=== PATIENT | female | born 1965 | race Caucasian/White ===

== ENCOUNTER 2018-03-09 16:04 | Emergency (ER) | payer MEDICARE, SELFPAY ==
[2018-03-09 16:05] VITALS: BP 135/78; PULSE 74; RESP 16; TEMP 37.2; O2SAT 98; BMI 29.2
--- NOTE | 2018-03-09 16:20 | ED.DCSUM_ITS ---
- ER Visit Summary Date of Service: 03/09/18 Chief Complaint: Opiate withdrawal History of Present Illness: The patient is a 52 F with symptoms of opiate withdrawal. Patient states that she is addicted to opiates. She states that she will buy Percocet and OxyContin of the street. She tries to use it almost daily. She states that she does snort it. She does not inject. She has remote history of heroin use but has not used in some time. Her last use of opiates was over 3 days ago. She states she has begun to have withdrawal symptoms. She is very upfront that she does not want inpatient detox. She states I just want some help with my symptoms. She is not suicidal or homicidal. She states that she has been having nausea, diarrhea, diaphoresis, and just the symptoms of generalized malaise. She denies any fevers. She denies cough. She denies any other medication use. Physical Examination: Vital signs reviewed General: Well-nourished, well-developed Head: Normocephalic, atraumatic Eyes: Pupils equal and reactive, extraocular muscles intact Neck, supple, no lymphadenopathy Heart: Regular rate and rhythm Respiratory: No distress, clear bilaterally Abdomen: Soft, nontender, nondistended, no peritoneal signs Back: Nontender Extremities: Nontender, no edema, no cords Skin: Normal color no rash Neuro: Alert and oriented, no focal or lateralizing deficits Test Results: [] Emergency Department Course and Treatment: The patient denies any other coingestion. She states that she just uses opiates. She is scheduled to do a detox intake for Suboxone in 12 days. She states she just the symptom control. The patient was given oral clonidine, Bentyl, and Phenergan here. I will prescribe these medications for the next week. She was counseled on concerning symptoms and reasons to return. Patient was offered new visions evaluation, but she declined. She will be discharged home. Treatment Plan: [] Disposition: Discharge Impression: 1. Opiate abuse with withdrawal This note was generated with [employer] dictation software. It may contain incorrect words, spelling, and punctuation that were not noted in review of the chart prior to signing ED Disposition - Plan for ED Patient: Chief Complaint: Subst Abuse Instructions: ED Withdrawal Narcotic Prescriptions: proMETHazine tablet [Phenergan] 25 mg PO Q6H PRN PRN #10 tab PRN Reason: Nausea Dicyclomine HCl [Bentyl] 20 mg PO TIDAC #20 cap Clonidine HCl 0.1 mg PO BID #14 tab Referrals: Earnest Rodriguez MD [Primary Care Provider] -
[2018-03-09] MEDS: proMETHazine 25 MG Tablet 12.5 MG PO (16:29)
[2018-03-09] MEDS: cloNIDine HCl 0.1 MG Tablet PO (16:29)
[2018-03-09] MEDS: Dicyclomine 10 MG Capsule 20 MG PO (16:29)
== END 2018-03-09 16:43 | disposition home or self-care (01) ==
PROVIDERS: Emergency Provider Emergency Medicine; Family Provider Family Medicine; PCP Family Medicine
DX: F11.23 Opioid dependence with withdrawal (principal); F41.9 Anxiety disorder, unspecified; F32.9 Major depressive disorder, single episode, unspecified; Z72.0 Tobacco use
CPT/HCPCS: 99282

== ENCOUNTER 2018-10-15 18:40 | Emergency (ER) | payer MEDICARE, SELFPAY ==
[2018-10-15 18:41] VITALS: BP 125/69; PULSE 51; RESP 18; TEMP 36.7; O2SAT 98; BMI 27.3
[2018-10-15] MEDS: Ondansetron 4 MG/2 ML Vial IV (19:02)
[2018-10-15] MEDS: 0.9% Normal Saline 1,000 ML 1000 ML IV (19:02)
[2018-10-15 19:13] LABS: Absolute Lymphocyte Count 1.02 X10^3/ul (0.83-4.51); Absolute Neutrophil Count 7.2 X10^3/uL (2.0-7.7); Basophil# 0.02 X10^3/uL; Basophil% 0.2 % (0-1); Eosinophil# 0.02 X10^3/uL; Eosinophils% 0.2 % (0-5); Hematocrit 50.7 % (37-47); Hemoglobin 17.2 g/dl (12.0-15.0); Lymphocyte # 1.02 X10^3/ul (4.0); Mean Corp Hgb Conc 33.9 g/gl (32-36); Mean Corpuscular Hgb 32.1 pg (27.0-32.0); Mean Corpuscular Volume 94.8 fL (81-99); Monocyte# 0.24 X10^3/uL; Monocyte% 2.8 % (0-10); Neutrophil # 7.18 X10^3/uL (2.7-7.7); Neutrophil % 84.7 % (47-70); Platelet Count 289 K/mm3 (150-450); RBC Distribution Width CV 13.5 % (11.6-14.6); RBC Distribution Width SD 46.5 fl (35.1-43.9); Red Blood Count 5.35 M/mm3 (4.2-5.4); White Blood Count 8.5 K/mm3 (4.4-11.0)
[2018-10-15 19:14] LABS: POSITIVE COUNT NO; POSITIVE DIFFERENTIAL NO; POSITIVE MORPHOLOGY NO
[2018-10-15 19:25] LABS: AST(SGOT) 17 U/L (15-37); Alanine Aminotransfer ALT/SGPT 23 U/L (13-56); Albumin, Serum 4.2 g/dL (3.2-5.0); Alkaline Phosphatase 71 U/L (45-117); Anion Gap 9 (5-15); BUN 14 mg/dL (7-18); BUN/Creat Ratio 23.6 RATIO (10-20); Calcium,Total 8.8 mg/dL (8.5-10.1); Chloride 104 mmol/L (98-107); Creatinine, Serum 0.59 mg/dL (0.55-1.02); EST Glomerular Filtration Rate 113 mL/min (>60); Est Glom Filt Rate - Afr Amer 136 mL/min (>60); Estimated Creatinine Clearance 95.22 ml/min; Globulin 3.2 g/dL (2.2-4.2); Glucose 109 mg/dL (74-106); Lipase 68 U/L (73-393); Potassium 3.9 mmol/L (3.5-5.1); Protein, Total 7.4 g/dL (6.4-8.2); Sodium Level 139 mmol/L (136-145)
[2018-10-15] MEDS: 0.9% Normal Saline 1,000 ML 150 ML IV (19:38)
[2018-10-15 20:20] VITALS: BP 129/80; PULSE 59; RESP 15; O2SAT 97
--- NOTE | 2018-10-15 20:52 | ED.DCSUM_ITS ---
- ER Visit Summary Date of Service: 10/15/18 Chief Complaint: Nausea and vomiting History of Present Illness: The patient is a 53 F who woke this morning with nausea and vomiting. She describes diffuse abdominal cramping, worse in the lower abdomen. She denies diarrhea. She denies fever or chills. She is with multiple family members yesterday for the holiday, but states no one else has similar illness. She ate the same meal as everyone else and no one else has been sick. Physical Examination: Vital signs are unremarkable. Patient's lying in bed in no acute distress. Heart is regular rate and rhythm. Lungs sounds clear. Abdomen is soft with mild diffuse tenderness. No guarding or rebound. Hypoactive bowel sounds noted. Test Results: CBC was normal white count, but left shift is noted with 84% neutrophils. Hemoglobin is concentrated at 17.2. Chemistry studies normal. LFTs and lipase normal. Emergency Department Course and Treatment: Patient is given IV fluids and Zofran. Repeat evaluation she is tolerating ice chips well. She does feel improved. She is given a prescription for Zofran at home. Treatment Plan: [] Disposition: Discharge Impression: Vomiting, improved This note was generated with [employer] dictation software. It may contain incorrect words, spelling, and punctuation that were not noted in review of the chart p rior to signing ED Disposition - Plan for ED Patient: Disposition: Home or Assisted Living Chief Complaint: Abd Pain Instructions: ED Nausea Vomiting Prescriptions: Ondansetron [Zofran Odt] 4 mg PO Q8H PRN PRN #10 tablet PRN Reason: Nausea Referrals: Earnest Rodriguez MD [Primary Care Provider] - 3-5 Days if not improving
[2018-10-15] MEDS: Ondansetron ODT 4 MG Tablet PO (21:00)
[2018-10-15 21:01] VITALS: BP 116/70; PULSE 62; RESP 15; O2SAT 95
== END 2018-10-15 21:30 | disposition home or self-care (01) ==
PROVIDERS: Emergency Provider Emergency Medicine; Family Provider Family Medicine; PCP Family Medicine
DX: R11.2 Nausea with vomiting, unspecified (principal); R10.9 Unspecified abdominal pain; Z86.19 Personal history of other infectious and parasitic diseases; Z98.51 Tubal ligation status
CPT/HCPCS: 80048; 80076; 83690; 85025; 96361; 96374; 99285; J7030; A4216; J2405

== ENCOUNTER 2018-12-13 13:56 | Emergency (ER) | payer MEDICARE, SELFPAY ==
[2018-12-13 13:57] VITALS: BP 119/69; PULSE 81; RESP 16; TEMP 36.4; O2SAT 97; BMI 61.1
--- NOTE | 2018-12-13 14:01 | RAD_ITS ---
STUDY: X-RAY - LEFT WRIST REASON FOR EXAM: Female, 53 years old. Posterior puncture wound secondary to cat bite. TECHNIQUE: 3 view(s) of the wrist were obtained. COMPARISON: None. FINDINGS: Normal visualized distal radius and ulna. Normal radiocarpal articulation. Normal distal radioulnar articulation. Normal carpal bones. Normal carpal articulations. Normal carpometacarpal articulation of the thumb. Normal second through fifth carpometacarpal articulations. Normal visualized metacarpal bones. Dorsal soft tissue swelling. RAD/Wrist min 3 Views IMPRESSION: Dorsal soft tissue swelling. No radiopaque foreign body is seen. Electronically Signed: Macario Tejeda MD at 14:52 EST Tel [phone], Service support ,
--- NOTE | 2018-12-13 14:03 | ED.DCSUM_ITS ---
- ER Visit Summary Date of Service: 12/13/18 Chief Complaint: Cat bite History of Present Illness: The patient is a 53 F who presents with a cat bite. She was trying to break up a fight when 1 of her domesticated cats bit her on the left forearm. She had multiple puncture wounds on the left forearm and [place] nd. She is up-to-date on immunizations. The cat has had not had immunizations but has not showed any signs of rabies. Physical Examination: Vital signs reviewed. Patient has tenderness over the left wrist with there are multiple puncture wounds. These wounds are on the dorsal part of the left wrist and there is 1 puncture wound at the base of the hand. It does not involve the fingers. She has limited range of motion secondary to the pain. Test Results: Left wrist x-ray reveals no fractures. No foreign bodies Emergency Department Course and Treatment: The patient's wound was cleansed. X- ray shows no broken bones or foreign bodies. Patient will be treated with antibiotics. She will take NSAIDs for pain. She will ice the area and will follow up with her PCP Treatment Plan: [] Disposition: Discharge Impression: Cat bite, left arm This note was generated with [employer] dictation software. It may contain incorrect words, spelling, and punctuation that were not noted in review of the chart prior to signing ED Disposition - Plan for ED Patient: Chief Complaint: Bite Referrals: Earnest Rodriguez MD [Primary Care Provider] -
[2018-12-13] MEDS: Naproxen 500 MG Tablet PO (14:30)
--- NOTE | 2018-12-13 14:36 | ED.DEP ---
ED Disposition - Plan for ED Patient: Disposition: Home or Assisted Living Chief Complaint: Bite Instructions: ED Bite Cat Prescriptions: Amox/Clavulanate Tablet [Augmentin Tablet] 875 mg PO Q12H #14 tab Referrals: Earnest Rodriguez MD [Primary Care Provider] -
[2018-12-13 14:47] VITALS: RESP 15
--- OUTSIDE RECORDS SUMMARY | 2019-02-15 03:01 | XMS RPT_ITS ---
:1965 Author Organization OHIP Care Team Providers Name Role Phone Earnest Rodriguez Primary Care Unavailable David Montalvo Attending Unavailable Earnest Rodriguez Primary Care Unavailable Faiza Workman Attending Unavailable Earnest Rodriguez Primary Care Unavailable Wade Chase Attending Unavailable ANN DOMINIQUE ([facility]) Attending Unavailable ANN DOMINIQUE ([employer]YING [employer]) Referring Unavailable Reny Gonzalez MSN,MONOMER PURIFICATION OPERATOR Attending Unavailable Jeffry Morales Primary Care Unavailable Francia Hebert Attending Unavailable Jeffry Morales Primary Care Unavailable Francia Hebert Attending Unavailable No Family Physician given Primary Care Unavailable Francia Hebert Attending Unavailable MISCELLANEOUS DOCTOR Primary Care Unavailable Francia Hebert Attending Unavailable Earnest Rodriguez Primary Care Unavailable Francia Hebert Attending Unavailable Jeffry Morales Primary Care Unavailable Francia Hebert Attending Unavailable Earnest Rodriguez Primary Care Unavailable Francia Hebert Attending Unavailable Francia Hebert Attending Unavailable No Family Physician given Primary Care Unavailable Garth Gibbs Attending Unavailable Francia Hebert Attending Unavailable Garth Gibbs Attending Unavailable No Family Physician given Primary Care Unavailable Francia Hebert Attending Unavailable No Family Physician given Primary Care Unavailable PROBLEMS PROBLEMS DATE TYPE CONDITION / CODE ATTENDING STATUS SOURCE 09/17/2017 Active Personal history NA Active [facility] infectious and Repository parasitic diseases / Z86.19(ICD-10) 04/22/2018 Admitting Unknown / Reny Gonzalez Active [facility] Medical diagnosis UNK(Unknown) MSN,MONOMER PURIFICATION OPERATOR [facility] Repository PROCEDURES PROCEDURES No Procedure Records FoundRESULTS RESULTS DISCHARGE INSTRUCTION Observed: 12/13/2018 Status: F Source: [place] 2:37 PM [facility] HOSPITAL REPOSITORY [facility] Medical Records Department [address] [place] [address] Discharge Instruction 12/13/18 1436 MR#: [id number] Acct: [id number] Name: KAMI WATTS Rep #: [id number] : 1965 53 From: Wade Chase MD PCP: Earnest Rodriguez MD Status: PRE ER ED Disposition - Plan for ED Patient: Disposition: Home or Assisted Living Chief Complaint: Bite Instructions: ED Bite Cat Prescriptions: Amox/Clavulanate Tablet [Augmentin Tablet] 875 mg PO Q12H #14 tab Referrals: Earnest Rodriguez MD [Primary Care Provider] - What to do if you have Problems For any increased pain, shortness of breath, bleeding, nausea or vomiting, chest pain, or any unexpected problems, contact your Primary Care Provider. Call [facility] ([phone]) or report to the closest Emergency Room. Call 911 if necessary. 12/13/18 1437 <Electronically signed by Wade Chase MD> Date Wade Chase MD Cosigner Signature (If Indicated): Date CC: Earnest Rodriguez MD EMERGENCY DEPARTMENT Observed: 12/13/2018 Status: F Source: [place] SUMMARY 2:36 PM [facility] HOSPITAL REPOSITORY [facility] Medical Records Department [address] [place] [address] Emergency Department Summary 12/13/18 1402 MR#: [id number] Acct: [id number] Name: KAMI WATTS Rep #: [id number] : 1965 53 From: Wade Chase MD PCP: Earnest Rodriguez MD Status: PRE ER - ER Visit Summary Date of Service: 12/13/18 Chief Complaint: Cat bite History of Present Illness: The patient is a 53 F who presents with a cat bite. She was trying to break up a fight when 1 of her domesticated cats bit her on the left forearm. She had multiple puncture wounds on the left forearm and hand. She is up-to-date on immunizations. The cat has had not had immunizations but has not showed any signs of rabies. Physical Examination: Vital signs reviewed. Patient has tenderness over the left wrist with there are multiple puncture wounds. These wounds are on the dorsal part of the left wrist and there is 1 puncture wound at the base of the hand. It does not involve the fingers. She has limited range of motion secondary to the pain. Test Results: Left wrist x-ray reveals no fractures. No foreign bodies Emergency Department Course and Treatment: The patient's wound was cleansed. X-ray shows no broken bones or foreign bodies. Patient will be treated with antibiotics. She will take NSAIDs for pain. She will ice the area and will follow up with her PCP Treatment Plan: [] Disposition: Discharge Impression: Cat bite, left arm This note was generated with [employer] dictation software. It may contain incorrect words, spelling, and punctuation that were not noted in review of the chart prior to signing ED Disposition - Plan for ED Patient: Chief Complaint: Bite Referrals: Earnest Rodriguez MD [Primary Care Provider] - What to do if you have Problems For any increased pain, shortness of breath, bleeding, nausea or vomiting, chest pain, or any unexpected problems, contact your Primary Care Provider. Call [facility] ([phone]) or report to the closest Emergency Room. Call 911 if necessary. 12/13/18 1436 <Electronically signed by Wade Chase MD> Date Wade Chase MD Cosigner Signature (If Indicated): Date CC: Earnest Rodriguez MD WRIST MIN 3 VIEWS Observed: 12/13/2018 Status: F Source: [place] 2:01 PM [facility] Imaging Services [address] [place] [address] Wrist min 3 Views MR#: [id number] Acct: [id number] Name: KAMI WATTS Rep #: [id number] : 1965 F 53 From: Macario Tejeda MD PCP: Earnest Rodriguez MD Status: REG ER Study: Wrist min 3 Views Date of Exam: 12/13/18 Exam# [id number] Ordering Dr: Wade Chase MD STUDY: X-RAY - LEFT WRIST REASON FOR EXAM: Female, 53 years old. Posterior puncture wound secondary to cat bite. TECHNIQUE: 3 view(s) of the wrist were obtained. COMPARISON: None. FINDINGS: Normal visualized distal radius and ulna. Normal radiocarpal articulation. Normal distal radioulnar articulation. Normal carpal bones. Normal carpal articulations. Normal carpometacarpal articulation of the thumb. Normal second through fifth carpometacarpal articulations. Normal visualized metacarpal bones. Dorsal soft tissue swelling. RAD/Wrist min 3 Views IMPRESSION: Dorsal soft tissue swelling. No radiopaque foreign body is seen. Electronically Signed: Macario Tejeda MD at 14:52 EST Tel [phone], Service support , CC: Earnest Rodriguez MD; Wade Chase MD Associate Director Of Sales: Signed TOXASSURE COMPR Collected: 12/06/2018 Status: F Source: [facility] 5:29 PM [facility] REPOSITORY TYPE CODE TESTS RESULT OUT OF RANGE REFERENCE UNITS LAB L600.81825 () Normal TOXASSURE COMPR FINAL Result Comment: TOXASSURE COMP DRUG ANALYSIS,UR 6-Acetylmorphine,ToxAssure Add CREATININE,URINE Test Result Flag Units Drug Present Buprenorphine 10 ng/mg creat Norbuprenorphine 117 ng/mg creat Source of buprenorphine is a scheduled prescription medication. Norbuprenorphine is an expected metabolite of buprenorphine. Acetaminophen PRESENT Test Result Flag Units Ref Range Creatinine 157 mg/dL >=20 Declared Medications: Medication list was not provided. For clinical consultation, please call . Performed By: #### L600.26656, L600.33181 #### [facility] [address] [place] [address] # [phone] 6-ACETYLMORPHIN Collected: 12/06/2018 Status: F Source: [facility] 5:29 PM [facility] REPOSITORY TYPE CODE TESTS RESULT OUT OF RANGE REFERENCE UNITS LAB L600.60193 () 6-DAYNA Normal TOXASSURE NEGATIVE Performed By: #### L600.90181, L600.86691 #### [facility] [address] [place] [address] # [phone] TOXASSURE COMPR Collected: 10/22/2018 Status: F Source: [facility] 12:00 AM [facility] REPOSITORY Order Comment: [place]: M TYPE CODE TESTS RESULT OUT OF RANGE REFERENCE UNITS LAB L600.66622 () Normal TOXASSURE COMPR FINAL Result Comment: TOXASSURE COMP DRUG ANALYSIS,UR 6-Acetylmorphine,ToxAssure Add CREATININE,URINE Test Result Flag Units Drug Present Buprenorphine 248 ng/mg creat Norbuprenorphine 1235 ng/mg creat Source of buprenorphine is a scheduled prescription medication. Norbuprenorphine is an expected metabolite of buprenorphine. Citalopram PRESENT Desmethylcitalopram PRESENT Desmethylcitalopram is an expected metabolite of citalopram or the enantiomeric form, escitalopram. Test Result Flag Units Ref Range Creatinine 40 mg/dL >=20 Declared Medications: Medication list was not provided. For clinical consultation, please call . Performed By: #### L600.89250, L600.54657 #### [facility] [address] [place] [address] 6-ACETYLMORPHIN Collected: 10/22/2018 Status: F Source: [facility] 12:00 AM [facility] REPOSITORY Order Comment: [place]: M TYPE CODE TESTS RESULT OUT OF RANGE REFERENCE UNITS LAB L600.08824 () 6-DAYNA Normal TOXASSURE NEGATIVE Performed By: #### L600.46073, L600.46262 #### [facility] [address] [place] [id number] EMERGENCY DEPARTMENT Observed: 10/16/2018 Status: F Source: [place] SUMMARY 12:58 AM [facility] [place] [facility] Medical Records Department [address] [place] [address] Emergency Department Summary 10/15/182051 MR#: [id number] Acct: [id number] Name: KAMI WATTS Rep #: [id number] : 1965 53 From: Faiza Workman MD PCP: Earnest Rodriguez MD Status: DEP ER - ER Visit Summary Date of Service: 10/15/18 Chief Complaint: Nausea and vomiting History of Present Illness: The patient is a 53 F who woke this morning with nausea and vomiting. She describes diffuse abdominal cramping, worse in the lower abdomen. She denies diarrhea. She denies fever or chills. She is with multiple family members yesterday for the holiday, but states no one else has similar illness. She ate the same meal as everyone else and no one else has been sick. Physical Examination: Vital signs are unremarkable. Patient's lying in bed in no acute distress. Heart is regular rate and rhythm. Lungs sounds clear. Abdomen is soft with mild diffuse tenderness. No guarding or rebound. Hypoactive bowel sounds noted. Test Results: CBC was normal white count, but left shift is noted with 84% neutrophils. Hemoglobin is concentrated at 17.2. Chemistry studies normal. LFTs and lipase normal. Emergency Department Course and Treatment: Patient is given IV fluids and Zofran. Repeat evaluation she is tolerating ice chips well. She does feel improved. She is given a prescription for Zofran at home. Treatment Plan: [] Disposition: Discharge Impression: Vomiting, improved This note was generated with [employer] dictation software. It may contain incorrect words, spelling, and punctuation that were not noted in review of the chart prior to signing ED Disposition - Plan for ED Patient: Disposition: Home or Assisted Living Chief Complaint: Abd Pain Instructions: ED Nausea Vomiting Prescriptions: Ondansetron [Zofran Odt] 4 mg PO Q8H PRN PRN #10 tablet PRN Reason: Nausea Referrals: Earnest Rodriguez MD [Primary Care Provider] - 3-5 Days if not improving What to do if you have Problems For any increased pain, shortness of breath, bleeding, nausea or vomiting, chest pain, or any unexpected problems, contact your Primary Care Provider. Call [facility] ([phone]) or report to the closest Emergency Room. Call 911 if necessary. 10/16/18 0058 <Electronically signed by Faiza Workman MD> Date Faiza Workman MD Cosigner Signature (If Indicated): Date CC: Earnest Rodriguez MD DISCHARGE INSTRUCTION Observed: 10/15/2018 Status: F Source: [place] 8:53 PM [facility] HOSPITAL REPOSITORY [facility] Medical Records Department [address] [place] [address] Discharge Instruction 10/15/182051 MR#: [id number] Acct: [id number] Name: KAMI WATTS Rep #: [id number] : 1965 53 From: Faiza Workman MD PCP: Earnest Rodriguez MD Status: REG ER ED Disposition - Plan for ED Patient: Disposition: Home or Assisted Living Chief Complaint: Abd Pain Instructions: ED Nausea Vomiting Prescriptions: Ondansetron [Zofran Odt] 4 mg PO Q8H PRN PRN #10 tablet PRN Reason: Nausea Referrals: Earnest Rodriguez MD [Primary Care Provider] - 3-5 Days if not improving What to do if you have Problems For any increased pain, shortness of breath, bleeding, nausea or vomiting, chest pain, or any unexpected problems, contact your Primary Care Provider. Call [facility] ([phone]) or report to the closest Emergency Room. Call 911 if necessary. 10/15/182052 <Electronically signed by Faiza Workman MD> Date Faiza Workman MD Cosigner Signature (If Indicated): Date CC: Earnest Rodriguez MD CBC W/DIFF, AUTOMATED Collected: 10/15/2018 Status: F Source: [place] 6:54 PM [facility] [place] TYPE CODE TESTS RESULT OUT OF RANGE REFERENCE UNITS LAB L100.1000 4.4-11.0 K/mm3 Normal WBC 8.5 LAB L100.1200 4.2-5.4 M/mm3 Normal RBC 5.35 LAB L100.1300 12.0-15.0 g/dl High HGB 17.2 LAB L100.1400 37-47 % High HCT 50.7 LAB L100.1500 81-99 fL Normal MCV 94.8 LAB L100.1600 27.0-32.0 pg High MCH 32.1 LAB L100.1700 32-36 g/gl Normal MCHC 33.9 LAB L100.1810 11.6-14.6 % Normal RDW CV 13.5 LAB L100.1820 35.1-43.9 fl High RDW SD 46.5 LAB L100.1900 150-450 K/mm3 Normal PLT 289 LAB L100.2000 6.2-12.0 fl Normal MPV 10.0 LAB L100.2100 47-70 % High NEUT% 84.7 LAB L100.2200 19-41 % Low LY% 12.0 LAB L100.2300 0-10 % Normal MONO% 2.8 LAB L100.2400 0-5 % Normal EO% 0.2 LAB L100.2500 0-1 % Normal BASO% 0.2 LAB L100.2550 0.0-0.9 % Normal IM GRAN % 0.100 Result Comment: IG% - Immature Granulocytes (promyelocytes, myelocytes and metamyelocytes) > 1% indicates that a LEFT SHIFT is Present. LAB L100.2620 2.0-7.7 X10 3/uL Normal Absolute Neut 7.2 LAB L100.2720 0.83-4.51 X10 3/ul Normal Absolute Lymph 1.02 Performed By: #### L100.0100 #### [facility] [address] [place], [place], [address] BASIC METABOLIC Collected: 10/15/2018 Status: F Source: [place] PROFILE ([facility]) 6:54 PM [facility] [place] TYPE CODE TESTS RESULT OUT OF RANGE REFERENCE UNITS LAB L501.0100 74-106 mg/dL High GLU 109 Result Comment: Fasting Glucose result from 100 to 125 mg/dL suggests IMPAIRED HOMEOSTASIS per A.D.A. criteria. Please note revised GLUCOSE reference range effective 2017. LAB L501.1000 7-18 mg/dL Normal BUN 14 LAB L501.1100 0.55-1.02 mg/dL Normal CREAT,SERUM 0.59 Result Comment: The validity of the calculated GFR AND GFRAA in patients over 70 years has not been determined. Clinical correlation is essential. LAB L501.1110 >60 mL/min Normal EST GFR 113 Result Comment: Non- GFR Calc LAB L501.1115 >60 mL/min Normal EST GFR - AA 136 Result Comment: GFR Calc LAB L501.1255 ml/min Normal Estimated CRCL 95.22 LAB L501.1300 10-20 RATIO High BUN/CRE 23.6 LAB L501.2200 8.5-10 mg/dL Normal .1 CA 8.8 LAB L501.5300 136-14 mmol/L Normal 5 NA 139 LAB L501.5600 3.5-5. mmol/L Normal 1 K 3.9 LAB L501.5900 98-107 mmol/L Normal CL 104 LAB L501.6100 21.0-3 mmol/L Normal 2.0 CO2 26.0 LAB L501.6200 5-15 Normal GAP 9 Performed By: #### L500.2500, L500.3400, L501.2450 #### [facility] [address] [place], [place], [address] LIVER PROFILE Collected: 10/15/2018 Status: F Source: [place] 6:54 PM [facility] [place] TYPE CODE TESTS RESULT OUT OF RANGE REFERENCE UNITS LAB L501.1500 6.4-8.2 g/dL Normal T PROT 7.4 LAB L501.1800 3.2-5.0 g/dL Normal ALB 4.2 LAB L501.1950 2.2-4.2 g/dL Normal GLOB 3.2 LAB L501.4100 15-37 U/L Normal AST 17 LAB L501.4305 45-117 U/L Normal ALK P 71 LAB L501.4405 13-56 U/L Normal ALT 23 LAB L501.4600 0.20-1.00 mg/dL Normal T BILI 0.80 LAB L501.4700 0.00-0.30 mg/dL Normal D BILI 0.20 Performed By: #### L500.2500, L500.3400, L501.2450 #### [facility] [address] [place], [address] LIPASE Collected: 10/15/2018 Status: F Source: [place] 6:54 PM [facility] [place] TYPE CODE TESTS RESULT OUT OF REFERENCE UNITS RANGE LAB L501.2450 73-393 U/L Low LIPASE 68 Performed By: #### L500.2500, L500.3400, L501.2450 #### [facility] [address] [place], [address] COMP METABOLIC PANEL Collected: 06/17/2018 Status: F Source: [place] 8:46 AM [facility] REPOSITORY TYPE CODE TESTS RESULT OUT OF REFERENCE UNITS RANGE LAB TP 6.3-8.0 g/dL Protein, Total 6.6 LAB ALB 3.9-4.9 g/dL Albumin 4.4 LAB CA 8.5-10.2 mg/dL Calcium, Total 9.1 LAB TBIL 0.2-1.3 mg/dL Bilirubin, Total 0.3 LAB ALKP 32-117 U/L Alkaline Phosphatase 70 LAB AST 13-35 U/L AST 22 LAB GLU 74-99 mg/dL Glucose 82 Result Comment: The [place] Diabetes Association (ADA) provides guidance for cutoff values for fasting glucose and random glucose. The ADA defines fasting as no caloric intake for at least 8 hours. Fas ting plasma glucose results between 100 to 125 mg/dL indicate increased risk for diabetes (prediabetes). Fasting plasma glucose results greater than or equal to 126 mg/dL meet the criteria for diagnosis of diabetes. In the absence of unequivocal hyperglycemia, results should be confirmed by repeat testing. In a patient with classic symptoms of hyperglycemia or hyperglycemic crisis, random plasma glucose results greater than or equal to 200 mg/dL meet the criteria for diagnosis of diabetes. Reference: Standards of Medical Care in Diabetes 2016, [place] Diabetes Association. Diabetes Care. 2016.39(Suppl 1). LAB BUN 7-21 mg/dL BUN 13 LAB CRET 0.58-0.96 mg/dL Creatinine 0.68 LAB NA 136-144 mmol/L Sodium 139 LAB K 3.7-5.1 mmol/L Potassium 4.3 LAB CL 97-105 mmol/L Chloride 101 LAB CO2 22-30 mmol/L CO2 26 LAB AGAP 9-18 mmol/L Anion Gap 12 LAB ALT 7-38 U/L ALT 13 LAB GFRAA eGFR- Amer. >60 LAB GFRNAA . eGFR-All Other Races >60 Result Comment: eGFR (Estimated GFR) Units of measure: mL/min/1.73 meters squared eGFR is derived from the reexpressed MDRD Study equation using the following parameters: serum creatinine, age, gender and race. The creatinine assay has been calibrated to be traceable to IDMS. An eGFR <60 mL/min/1.73m2 for >3 months is consistent with chronic kidney disease. Refer to KDOQI guidelines for clinical interpretation. In patients with unstable renal function, e.g. those with acute kidney injury, the eGFR may not accurately reflect actual GFR. Performed By: #### CMP, HCQPCR #### [facility] [address] [place], [place] [address] HEPATITIS C RNA Collected: 06/17/2018 Status: F Source: [place] 8:46 AM [facility] REPOSITORY TYPE CODE TESTS RESULT OUT OF REFERENCE UNITS RANGE LAB HCQPCR IU/mL Hepatitis C RNA HCV RNA not detected by PCR. Result Comment: Reference Range: Negative for HCV RNA The Linear Range of this assay is 15 IU/mL to 100,000,000 IU/mL. Performed By: #### CMP, HCQPCR #### [facility] [address] [place], [place] [address] PROGRESS Observed: 06/17/2018 Status: COMPLETED Source: [place] 8:10 AM [facility] REPOSITORY HNO ID: [id number] Author: Ann (Arik) Trip Service: (none) Author Type: Nurse Practitioner Type: Progress Notes Filed: 06/17/2018 9:49 AM Note Text: This is a 52 year old female who presents today with: Patient presents with: Recheck: positive hep C results HISTORY OF PRESENT ILLNESS: Kami Watts is a 52 year old female. Patient presents with: Recheck: positive hep C results Pt presents today to discuss test results. She has a hx of hep C. She was treated with Epclusa. Thought she was cured. Recently, had labwork for the suboxone Program, and the hepatitis was positive. Asymptomatic. Needs refill of citalopram. Working good. No problems. No suicidal/homicidal. GENERAL: No weight loss, malaise or fevers/chills HEENT: Negative for frequent or significant headaches, No changes in hearing or vision. NECK: Negative for lumps, goiter, pain and significant neck swelling RESPIRATORY: Negative for cough, hemoptysis, wheezing, dyspnea or shortness of breath CARDIOVASCULAR: Negative for chest pain, leg swelling, orthopnea, or palpitations GI: No nausea, vomiting, or diarrhea/constipation. No hematochezia/melena. No heartburn or reflux symptoms. : No history of dysuria, frequency or incontinence MUSCULOSKELETAL: Negative for joint pain or swelling. SKIN: Negative for lesions, rash, and itching ENDOCRINE: Negative for cold or heat intolerance, polyuria, polydipsia and goiter NEURO: No history of headaches, syncope, paralysis, seizures or tremors PAST MEDICAL HISTORY: PAST MEDICAL HISTORY Diagnosis Date - Abdominal pain, unspecified site - Abnormal glandular Papanicolaou smear of cervix Abn. Pap smear (cervix) - Alcohol addiction (HCC) In treatment 04/06/11 - Diabetes mellitus without mention of complication Diabetes mellitus - Diarrhea - Drug addiction (HCC) In treatment 04/06/11 - prescription pain medication use - NO IV drug use. - Esophageal reflux Gastroesophageal reflux - History of hepatitis C treated. Not detected 08/2017 - PMH - PAST MEDICAL HISTORY OF colitis - PMH - PAST MEDICAL HISTORY OF enlarged duct pancreas and GB - Thyrotoxicosis without mention of goiter or other cause, without mention of thyrotoxic crisis or storm Hyperthyroidism PAST SURGICAL HISTORY Procedure Laterality Date - *STRESS TEST PC 11/03/2016 normal - COLONOSCOP W/ OR W/O BRSH SPEC 04/18/15 Colonoscopy, repeat 5 yrs - COLONOSCOPY W/BX 08/20/06 - COLPOSCOPY (VAGINOSCOPY) 1999 Colposcopy - DANDC, DIAG AND/OR THERAPEUTIC 10/2016 Dilation AND curettage - DILATED RETINAL EYE EXAM W/INT/DOC/REV 12/27/2014 - ENDOMETRIAL BIOPSY 03/03/07 - LIGATE FALLOPIAN TUBE 2002 Tubal ligation - PAST SURGICAL HISTORY OF 1997 BENIGN TUMOR REMOVED RIGHT HAND - PAST SURGICAL HISTORY OF 2012 cataract with lens implant, bilat - REPAIR UMBILICAL MADI,<5Y/O,REDUC 2002 Hernia repair, umbilical <5yr ALLERGIES Patient has no known allergies. MEDICATIONS Current Outpatient Prescriptions: Buprenorphine-nalOXone (SUBOXONE) 8-2 mg film Dissolve 2 Film under the tongue once daily. citalopram (CELEXA) 20 mg tablet Take 1 tablet by mouth once daily. No current facility-administered medications for this visit. FAMILY HISTORY Problem Relation Age of Onset - Diabetes Mother colon cancer - Coronary Artery Disease Mother - Hypertension Mother - Hearing Loss Father PA/ colon cancer - Stroke Father - Diabetes Father - Hypertension Father - Aneurysm Father - Coronary Artery Disease Maternal Grandmother - Hypertension Maternal Grandmother - Ischemic Heart Disease Maternal Grandfather - Hypertension Paternal Grandmother - Coronary Artery Disease Paternal Grandmother - Coronary Artery Disease Paternal Grandfather - Cancer Sister CERVICAL/colon cancer - Cancer Paternal Aunt DOESN'T KNOW TYPE - Heart Brother PA - Hypertension Daughter - Colon Cancer Brother Social History Marital status: Spouse name: Years of education: GED Number of children: 6 Social History Main Topics Smoking status: Current Every Day Smoker Packs/day: 1.00 Years: 40.00 Types: Cigarettes Smokeless tobacco: Never Used Comment: half a pack a day Alcohol use: No Drug use: No Comment: sober since june 01 2014-meth Sexual activity: Yes Partners with: Male control/protection: Surgical Comment: TUBAL OCCLUSION EXAM: BP 112/70 (BP Site: Left Arm, BP Position: Sitting, BP Cuff Size: Regular Adult) Pulse 68 Resp 12 Wt 75.8 kg (167 lb) LMP 01/15/2017 (Within Days) BMI 28.67 kg/m? PHYSICAL EXAM: General Appearance: Well appearing, alert, in no acute distress, well-hydrated, well nourished.. Skin: Skin color, texture, turgor normal, no suspicious rashes or lesions. Head: Normocephalic, no masses, lesions, tenderness or abnormalities. Eyes: Anicteric sclera. Extraocular movements are intact. . Neck: Supple, no adenopathy; thyroid symmetric, normal size, no bruits. Lungs: Lungs clear to auscultation. No wheezing, rhonchi, rales. Heart: RRR without murmur, gallop, or rubs. No ectopy. Abdomen: Abdomen soft, non-tender. Bowel sounds normal. No masses, organomegaly. Extremities: No deformities, edema, skin discoloration, clubbing or cyanosis. Good capillary refill. Neurologic: Gait normal. Sensation grossly intact. ASSESSMENT/PLAN: 1. History of hepatitis C - ICD9: V12.09, ICD10: Z86.19 (primary diagnosis) Suspect that they did just a hep c antibody, which likely will remain positive after treatment. Reassured patient. Will get viral load to ensure not detectable. - COMP METABOLIC PANEL - HCV QUANT RNA BY PCR 2. Screening breast examination - ICD9: V76.10, ICD10: Z12.31 - Set up for mammogram, yearly mammogram recommended - Follow up for annual exam in one year. - DAYNA SCREENING 3. Adjustment disorder with depressed mood - ICD9: 309.0, ICD10: F43.21 Controlled. Refill: - CITALOPRAM 20 MG TABLET Discussed treatment plan and patient voices understanding. Patient's questions answered appropriately. Medications and potential side effects were discussed and patient voices understanding. Return to the office as scheduled or as needed for worsening/no improvement. AVINASH GottliebOV Observed: 06/17/2018 Status: COMPLETED Source: [place] 8:00 AM [facility] REPOSITORY Office Visit (FAMPWS) STEFANIECLARAKAMI ([id number]) 1965 F NFR Date Time Provider Department 06/17/18 8:00 AM ANN DOMINIQUE (FLYING TEACHER) FAMPWS During your visit today, we recorded the following information about you: Pulse Respiration Blood pressure Weight 68/minute 12/minute 112/70 75.8 kg Ann Dominique APRN.CNP 06/17/2018 9:49 AM Signed This is a 52 year old female who presents today with: Patient presents with: Recheck: positive hep C results HISTORY OF PRESENT ILLNESS: Kami Watts is a 52 year old female. Patient presents with: Recheck: positive hep C results Pt presents today to discuss test results. She has a hx of hep C. She was treated with Epclusa. Thought she was cured. Recently, had labwork for the suboxone Program, and the hepatitis was positive. Asymptomatic. Needs refill of citalopram. Working good. No problems. No suicidal/homicidal. GENERAL: No weight loss, malaise or fevers/chills HEENT: Negative for frequent or significant headaches, No changes in hearing or vision. NECK: Negative for lumps, goiter, pain and significant neck swelling RESPIRATORY: Negative for cough, hemoptysis, wheezing, dyspnea or shortness of breath CARDIOVASCULAR: Negative for chest pain, leg swelling, orthopnea, or palpitations GI: No nausea, vomiting, or diarrhea/constipation. No hematochezia/melena. No heartburn or reflux symptoms. : No history of dysuria, frequency or incontinence MUSCULOSKELETAL: Negative for joint pain or swelling. SKIN: Negative for lesions, rash, and itching ENDOCRINE: Negative for cold or heat intolerance, polyuria, polydipsia and goiter NEURO: No history of headaches, syncope, paralysis, seizures or tremors PAST MEDICAL HISTORY: PAST MEDICAL HISTORY Diagnosis Date - Abdominal pain, unspecified site - Abnormal glandular Papanicolaou smear of cervix Abn. Pap smear (cervix) - Alcohol addiction (HCC) In treatment 04/06/11 - Diabetes mellitus without mention of complication Diabetes mellitus - Diarrhea - Drug addiction (HCC) In treatment 04/06/11 - prescription pain medication use - NO IV drug use. - Esophageal reflux Gastroesophageal reflux - History of hepatitis C treated. Not detected 08/2017 - PMH - PAST MEDICAL HISTORY OF colitis - PMH - PAST MEDICAL HISTORY OF enlarged duct pancreas and GB - Thyrotoxicosis without mention of goiter or other cause, without mention of thyrotoxic crisis or storm Hyperthyroidism PAST SURGICAL HISTORY Procedure Laterality Date - *STRESS TEST PC 11/03/2016 normal - COLONOSCOP W/ OR W/O BRSH SPEC 04/18/15 Colonoscopy, repeat 5 yrs - COLONOSCOPY W/BX 08/20/06 - COLPOSCOPY (VAGINOSCOPY) 1999 Colposcopy - DANDC, DIAG AND/OR THERAPEUTIC 10/2016 Dilation AND curettage - DILATED RETINAL EYE EXAM W/INT/DOC/REV 12/27/2014 - ENDOMETRIAL BIOPSY 03/03/07 - LIGATE FALLOPIAN TUBE 2002 Tubal ligation - PAST SURGICAL HISTORY OF 1997 BENIGN TUMOR REMOVED RIGHT HAND - PAST SURGICAL HISTORY OF 2012 cataract with lens implant, bilat - REPAIR UMBILICAL MADI,<5Y/O,REDUC 2003 Hernia repair, umbilical <5yr ALLERGIES Patient has no known allergies. MEDICATIONS Current Outpatient Prescriptions: Buprenorphine-nalOXone (SUBOXONE) 8-2 mg film Dissolve 2 Film under the tongue once daily. citalopram (CELEXA) 20 mg tablet Take 1 tablet by mouth once daily. No current facility-administered medications for this visit. FAMILY HISTORY Problem Relation Age of Onset - Diabetes Mother colon cancer - Coronary Artery Disease Mother - Hypertension Mother - Hearing Loss Father PA/ colon cancer - Stroke Father - Diabetes Father - Hypertension Father - Aneurysm Father - Coronary Artery Disease Maternal Grandmother - Hypertension Maternal Grandmother - Ischemic Heart Disease Maternal Grandfather - Hypertension Paternal Grandmother - Coronary Artery Disease Paternal Grandmother - Coronary Artery Disease Paternal Grandfather - Cancer Sister CERVICAL/colon cancer - Cancer Paternal Aunt DOESN'T KNOW TYPE - Heart Brother PA - Hypertension Daughter - Colon Cancer Brother Social History Marital status: Spouse name: Years of education: GED Number of children: 6 Social History Main Topics Smoking status: Current Every Day Smoker Packs/day: 1.00 Years: 40.00 Types: Cigarettes Smokeless tobacco: Never Used Comment: half a pack a day Alcohol use: No Drug use: No Comment: sober since june 01 2014-meth Sexual activity: Yes Partners with: Male control/protection: Surgical Comment: TUBAL OCCLUSION EXAM: BP 112/70 (BP Site: Left Arm, BP Position: Sitting, BP Cuff Size: Regular Adult) Pulse 68 Resp 12 Wt 75.8 kg (167 lb) LMP 01/15/2017 (Within Days) BMI 28.67 kg/m? PHYSICAL EXAM: General Appearance: Well appearing, alert, in no acute distress, well-hydrated, well nourished.. Skin: Skin color, texture, turgor normal, no suspicious rashes or lesions. Head: Normocephalic, no masses, lesions, tenderness or abnormalities. Eyes: Anicteric sclera. Extraocular movements are intact. . Neck: Supple, no adenopathy; thyroid symmetric, normal size, no bruits. Lungs: Lungs clear to auscultation. No wheezing, rhonchi, rales. Heart: RRR without murmur, gallop, or rubs. No ectopy. Abdomen: Abdomen soft, non-tender. Bowel sounds normal. No masses, organomegaly. Extremities: No deformities, edema, skin discoloration, clubbing or cyanosis. Good capillary refill. Neurologic: Gait normal. Sensation grossly intact. ASSESSMENT/PLAN: 1. History of hepatitis C - ICD9: V12.09, ICD10: Z86.19 (primary diagnosis) Suspect that they did just a hep c antibody, which likely will remain positive after treatment. Reassured patient. Will get viral load to ensure not detectable. - COMP METABOLIC PANEL - HCV QUANT RNA BY PCR 2. Screening breast examination - ICD9: V76.10, ICD10: Z12.31 - Set up for mammogram, yearly mammogram recommended - Follow up for annual exam in one year. - DAYNA SCREENING 3. Adjustment disorder with depressed mood - ICD9: 309.0, ICD10: F43.21 Controlled. Refill: - CITALOPRAM 20 MG TABLET Discussed treatment plan and patient voices understanding. Patient's questions answered appropriately. Medications and potential side effects were discussed and patient voices understanding. Return to the office as scheduled or as needed for worsening/no improvement. Ann Dominique APRN.ARIK Dominique APRN.CNP 06/17/2018 8:25 AM Signed 1. Labs today. 2. I'll check with GI regarding results. 3. Continue citalopram. 4. appt with PCP in 6 months for recheck. 5. mammo in Jul. 6. Get set up with CLINICAL DATA PROGRAMMER for annual. Referring Provider: SELF [[id number]] Allergies As of Date: 06/17/2018 (No Known Allergies) Date Reviewed: 06/17/2018 Reviewed by: Mavis Nicholas Cma - Fully Assessed Reason for Visit: Recheck [92] Cmt: positive hep C results Primary Visit Diagnosis:History of hepatitis C [Z86.19] Other Visit Diagnoses:Screening breast examination [Z12.31] Adjustment disorder with depressed mood [F43.21] Order(s):COMP METABOLIC PANEL [SQCMP] Order #: [id number] FUTURE HCV QUANT RNA BY PCR [SQHCQPCR] Order #: [id number] FUTURE DAYNA SCREENING [[id number]] Order #: [id number] FUTURE citalopram (CELEXA) 20 mg tabletTake 1 tablet by mouth once daily.Disp: 30 tabletRfl: 5 Prescriptions as of 06/17/2018 Sig: CITALOPRAM 20 MG TABLET Take 1 tablet by mouth once d* BUPRENORPHINE 8 MG-NALOXONE 2* Dissolve 2 Film under the ton* Problem List As Of Date 06/17/2018 Noted Resolved ABNORMAL ENDOCRINE STUDY NEC [R94.7] INVALID FOR* Thoracic and lumbosacral neuritis [M54.14, M54.*INVALID FOR* Priority: D Insomnia, unspecified [G47.00] INVALID FOR* Priority: B Decreased libido [R68.82] INVALID FOR* Priority: B Adjustment disorder with depressed mood [F43.21]INVALID FOR* Priority: A Smoker [F17.200] INVALID FOR* Priority: C More... Migraine with aura and without status migrainos*INVALID FOR* Priority: A Anxiety [F41.9] INVALID FOR* Priority: A Drug addiction (HCC) [F19.20] Priority: B More... More... More... IV drug abuse [F19.10] INVALID FOR* Priority: B History of hepatitis C [Z86.19] INVALID FOR* Priority: C More... Well adult exam [Z00.00] INVALID FOR* Priority: E More... Family history of early CAD [Z82.49] INVALID FOR* Priority: F Acquired hypothyroidism [E03.9] INVALID FOR* Priority: A More... Gastroesophageal reflux disease without esophag*INVALID FOR* Priority: A Encounter for gynecological examination without*INVALID FOR* Priority: E More... Alcohol dependence in remission (HCC) [F10.21] INVALID FOR* Priority: B More... Marijuana use [F12.90] INVALID FOR* Priority: B More... Other instructions from your clinician: 1. Labs today. 2. I'll check with GI regarding results. 3. Continue citalopram. 4. appt with PCP in 6 months for recheck. 5. mammo in Jul. 6. Get set up with CLINICAL DATA PROGRAMMER for annual. Prescriptions ordered this encounter Disp Refills Start End CITALOPRAM 20 MG TABLET 30 t* 5 06/17/2018 Route: ORAL Sig: Take 1 tablet by mouth once daily. Medications Discontinued During This Encounter citalopram (CELEXA) 20 mg tablet 30 t* 2 12/02/2017 06/17/2018 Route: ORAL Sig: Take 1 tablet by mouth once daily. Disc: Reason for discontinue is not on file. Follow-up and Disposition History Recorded Encounter Status:Closed by ANN DOMIINQUE CNP on 06/17/18 PROGRESS Observed: 06/01/2018 Status: COMPLETED Source: [place] 1:08 PM [facility] REPOSITORY HNO ID: [id number] Author: Galen Reinoso) Topher Service: (none) Author Type: Physician Die Machine Operator Type: Progress Notes Filed: 06/01/2018 2:27 PM Note Text: Subjective HPI Pt presents with a Piece of glass in her left heel since this am. She was sweeping underneath the refrigerator and thinks there was some broken glass there. Her tdap is UTD within five years per patient. She said she could see the piece of glass but couldn't get it out at home. Review of Systems Musculoskeletal: Piece of glass in left heel All other systems reviewed and are negative. PAST MEDICAL HISTORY Diagnosis Date - Abdominal pain, unspecified site - Abnormal glandular Papanicolaou smear of cervix Abn. Pap smear (cervix) - Alcohol addiction (HCC) In treatment 04/06/11 - Diabetes mellitus without mention of complication Diabetes mellitus - Diarrhea - Drug addiction (HCC) In treatment 04/06/11 - prescription pain medication use - NO IV drug use. - Esophageal reflux Gastroesophageal reflux - History of hepatitis C treated. Not detected 08/2017 - PMH - PAST MEDICAL HISTORY OF colitis - PMH - PAST MEDICAL HISTORY OF enlarged duct pancreas and GB - Thyrotoxicosis without mention of goiter or other cause, without mention of thyrotoxic crisis or storm Hyperthyroidism Current Outpatient Prescriptions: Buprenorphine-nalOXone (SUBOXONE) 8-2 mg film Dissolve 2 Film under the tongue once daily. Disp: Rfl: citalopram (CELEXA) 20 mg tablet Take 1 tablet by mouth once daily. Disp: 30 tablet Rfl: 2 cephALEXin (KEFLEX) 500 mg capsule Take 1 capsule by mouth three times daily for 5 days. Disp: 15 capsule Rfl: 0 No current facility-administered medications for this visit. PAST SURGICAL HISTORY Procedure Laterality Date - *STRESS TEST PC 11/03/2016 normal - COLONOSCOP W/ OR W/O BRSH SPEC 04/18/15 Colonoscopy, repeat 5 yrs - COLONOSCOPY W/BX 08/20/06 - COLPOSCOPY (VAGINOSCOPY) 1999 Colposcopy - DANDC, DIAG AND/OR THERAPEUTIC 1981, 10/2016 Dilation AND curettage - DILATED RETINAL EYE EXAM W/INT/DOC/REV 12/27/2014 - ENDOMETRIAL BIOPSY 03/03/07 - LIGATE FALLOPIAN TUBE 2002 Tubal ligation - PAST SURGICAL HISTORY OF 1997 BENIGN TUMOR REMOVED RIGHT HAND - PAST SURGICAL HISTORY OF 2012 cataract with lens implant, bilat - REPAIR UMBILICAL MADI,<5Y/O,REDUC 2002 Hernia repair, umbilical <5yr FAMILY HISTORY Problem Relation Age of Onset - Diabetes Mother colon cancer - Coronary Artery Disease Mother - Hypertension Mother - Hearing Loss Father PA/ colon cancer - Stroke Father - Diabetes Father - Hypertension Father - Aneurysm Father - Coronary Artery Disease Maternal Grandmother - Hypertension Maternal Grandmother - Ischemic Heart Disease Maternal Grandfather - Hypertension Paternal Grandmother - Coronary Artery Disease Paternal Grandmother - Coronary Artery Disease Paternal Grandfather - Cancer Sister CERVICAL/colon cancer - Cancer Paternal Aunt DOESN'T KNOW TYPE - Heart Brother PA - Hypertension Daughter - Colon Cancer Brother Social History Substance Use Topics - Smoking status: Current Every Day Smoker Packs/day: 1.00 Years: 40.00 Types: Cigarettes - Smokeless tobacco: Never Used Comment: half a pack a day - Alcohol use No BP 104/70 Pulse 72 Temp 36.8 ?C (98.3 ?F) (Tympanic) Resp 16 Wt 74.4 kg (164 lb) LMP 01/15/2017 (Within Days) BMI 28.15 kg/m? Objective Physical Exam Constitutional: She is oriented to person, place, and time and well-developed, well-nourished, and in no distress. HENT: Head: Normocephalic and atraumatic. Cardiovascular: Normal rate, regular rhythm and normal heart sounds. Pulmonary/Chest: Effort normal and breath sounds normal. Musculoskeletal: Feet: Pt has a 2.5 cm superficial laceration to the heel of the left foot. There is a 1 cm piece of glass glass visible superficially. She is tender on palpation of the laceration. No active bleeding. Normal ROM of the foot . Pedal pulses 2+. Neurological: She is alert and oriented to person, place, and time. Skin: Skin is warm and dry. Psychiatric: Affect and judgment normal. Nursing note and vitals reviewed. ASSESSMENT/PLAN: 1. Foreign body (FB) in soft tissue - ICD9: 729.6, ICD10: M79.5 I was able to cleanse area with betadine and remove the superficial piece of glass in its entirety under sterile conditions. After removal of the piece of glass patient able to walk with no pain in the foot. I did place her on keflex for 5 days due to risk of infection. Discussed taking a probiotic supplement or eating yogurt daily while on antibiotics to avoid associated diarrhea. Discussed if she develops infection signs needs to return. Also discussed there could be tiny pieces of glass still in the foot that cannot be removed here. If she had any pain follow up with podiatry . She is agreeable with this plan. Galen Rios PA-C CNOV Observed: 06/01/2018 Status: COMPLETED Source: [place] 11:45 AM [facility] REPOSITORY Office Visit (WSTR) KAMI WATTS ([id number]) 1965 F NFR Date Time Provider Department 06/01/18 11:45 AM GALEN RIOS (MARIO) WSTR During your visit today, we recorded the following information about you: Temperature Pulse Respiration Blood pressure 98.3 degrees 72/minute 16/minute 104/70 Weight 74.4 kg Galen Rios PA-C 06/01/2018 2:27 PM Signed Subjective HPI Pt presents with a Piece of glass in her left heel since this am. She was sweeping underneath the refrigerator and thinks there was some broken glass there. Her tdap is UTD within five years per patient. She said she could see the piece of glass but couldn't get it out at home. Review of Systems Musculoskeletal: Piece of glass in left heel All other systems reviewed and are negative. PAST MEDICAL HISTORY Diagnosis Date - Abdominal pain, unspecified site - Abnormal glandular Papanicolaou smear of cervix Abn. Pap smear (cervix) - Alcohol addiction (HCC) In treatment 04/06/11 - Diabetes mellitus without mention of complication Diabetes mellitus - Diarrhea - Drug addiction (HCC) In treatment 04/06/11 - prescription pain medication use - NO IV drug use. - Esophageal reflux Gastroesophageal reflux - History of hepatitis C treated. Not detected 08/2017 - PMH - PAST MEDICAL HISTORY OF colitis - PMH - PAST MEDICAL HISTORY OF enlarged duct pancreas and GB - Thyrotoxicosis without mention of goiter or other cause, without mention of thyrotoxic crisis or storm Hyperthyroidism Current Outpatient Prescriptions: Buprenorphine-nalOXone (SUBOXONE) 8-2 mg film Dissolve 2 Film under the tongue once daily. Disp: Rfl: citalopram (CELEXA) 20 mg tablet Take 1 tablet by mouth once daily. Disp: 30 tablet Rfl: 2 cephALEXin (KEFLEX) 500 mg capsule Take 1 capsule by mouth three times daily for 5 days. Disp: 15 capsule Rfl: 0 No current facility-administered medications for this visit. PAST SURGICAL HISTORY Procedure Laterality Date - *STRESS TEST PC 11/03/2016 normal - COLONOSCOP W/ OR W/O [facility] SPEC 04/18/15 Colonoscopy, repeat 5 yrs - COLONOSCOPY W/BX 08/20/06 - COLPOSCOPY (VAGINOSCOPY) 1999 Colposcopy - DANDC, DIAG AND/OR THERAPEUTIC 10/2016 Dilation AND curettage - DILATED RETINAL EYE EXAM W/INT/DOC/REV 12/27/2014 - ENDOMETRIAL BIOPSY 03/03/07 - LIGATE FALLOPIAN TUBE 2002 Tubal ligation - PAST SURGICAL HISTORY OF 1997 BENIGN TUMOR REMOVED RIGHT HAND - PAST SURGICAL HISTORY OF 2012 cataract with lens implant, bilat - REPAIR UMBILICAL MADI,<5Y/O,REDUC 2002 Hernia repair, umbilical <5yr FAMILY HISTORY Problem Relation Age of Onset - Diabetes Mother colon cancer - Coronary Artery Disease Mother - Hypertension Mother - Hearing Loss Father PA/ colon cancer - Stroke Father - Diabetes Father - Hypertension Father - Aneurysm Father - Coronary Artery Disease Maternal Grandmother - Hypertension Maternal Grandmother - Ischemic Heart Disease Maternal Grandfather - Hypertension Paternal Grandmother - Coronary Artery Disease Paternal Grandmother - Coronary Artery Disease Paternal Grandfather - Cancer Sister CERVICAL/colon cancer - Cancer Paternal Aunt DOESN'T KNOW TYPE - Heart Brother PA - Hypertension Daughter - Colon Cancer Brother Social History Substance Use Topics - Smoking status: Current Every Day Smoker Packs/day: 1.00 Years: 40.00 Types: Cigarettes - Smokeless tobacco: Never Used Comment: half a pack a day - Alcohol use No BP 104/70 Pulse 72 Temp 36.8 ?C (98.3 ?F) (Tympanic) Resp 16 Wt 74.4 kg (164 lb) LMP 01/15/2017 (Within Days) BMI 28.15 kg/m? Objective Physical Exam Constitutional: She is oriented to person, place, and time and well-developed, well-nourished, and in no distress. HENT: Head: Normocephalic and atraumatic. Cardiovascular: Normal rate, regular rhythm and normal heart sounds. Pulmonary/Chest: Effort normal and breath sounds normal. Musculoskeletal: Feet: Pt has a 2.5 cm superficial laceration to the heel of the left foot. There is a 1 cm piece of glass glass visible superficially. She is tender on palpation of the laceration. No active bleeding. Normal ROM of the foot . Pedal pulses 2+. Neurological: She is alert and oriented to person, place, and time. Skin: Skin is warm and dry. Psychiatric: Affect and judgment normal. Nursing note and vitals reviewed. ASSESSMENT/PLAN: 1. Foreign body (FB) in soft tissue - ICD9: 729.6, ICD10: M79.5 I was able to cleanse area with betadine and remove the superficial piece of glass in its entirety under sterile conditions. After removal of the piece of glass patient able to walk with no pain in the foot. I did place her on keflex for 5 days due to risk of infection. Discussed taking a probiotic supplement or eating yogurt daily while on antibiotics to avoid associated diarrhea. Discussed if she develops infection signs needs to return. Also discussed there could be tiny pieces of glass still in the foot that cannot be removed here. If she had any pain follow up with podiatry . She is agreeable with this plan. Galen Rios PA-C Referring Provider: SELF [200] Allergies As of Date: 06/01/2018 (No Known Allergies) Date Reviewed: 06/01/2018 Reviewed by: Bridgette Pascal LPN - Fully Assessed Reason for Visit: Foot Trauma [766] Cmt: small piece of glass in left heel since yesterday Primary Visit Diagnosis:Foreign body (FB) in soft tissue [M79.5] Order(s):cephALEXin (KEFLEX) 500 mg capsuleTake 1 capsule by mouth three times daily for 5 days.Disp: 15 capsuleRfl: 0 Prescriptions as of 06/01/2018 Sig: BUPRENORPHINE 8 MG-NALOXONE 2* Dissolve 2 Film under the ton* CITALOPRAM 20 MG TABLET Take 1 tablet by mouth once d* CEPHALEXIN 500 MG CAPSULE Take 1 capsule by mouth three* Problem List As Of Date 06/01/2018 Noted Resolved ABNORMAL ENDOCRINE STUDY NEC [R94.7] INVALID FOR* Thoracic and lumbosacral neuritis [M54.14, M54.*INVALID FOR* Priority: D Insomnia, unspecified [G47.00] INVALID FOR* Priority: B Decreased libido [R68.82] INVALID FOR* Priority: B Adjustment disorder with depressed mood [F43.21]INVALID FOR* Priority: A Smoker [F17.200] INVALID FOR* Priority: C More... Migraine with aura and without status migrainos*INVALID FOR* Priority: A Anxiety [F41.9] INVALID FOR* Priority: A Drug addiction (HCC) [F19.20] Priority: B More... More... More... IV drug abuse [F19.10] INVALID FOR* Priority: B History of hepatitis C [Z86.19] INVALID FOR* Priority: C More... Well adult exam [Z00.00] INVALID FOR* Priority: E More... Family history of early CAD [Z82.49] INVALID FOR* Priority: F Acquired hypothyroidism [E03.9] INVALID FOR* Priority: A More... Gastroesophageal reflux disease without esophag*INVALID FOR* Priority: A Encounter for gynecological examination without*INVALID FOR* Priority: E More... Alcohol dependence in remission (HCC) [F10.21] INVALID FOR* Priority: B More... Marijuana use [F12.90] INVALID FOR* Priority: B More... Prescriptions ordered this encounter Disp Refills Start End CEPHALEXIN 500 MG CAPSULE 15 c* 0 06/01/2018 06/06/2018 Route: ORAL Sig: Take 1 capsule by mouth three times daily for 5 days. Encounter Status:Closed by GALEN RIOS PA-C on 06/01/18 CBC Collected: 05/10/2018 Status: F Source: [facility] 5:14 PM [facility] REPOSITORY TYPE CODE TESTS RESULT OUT OF RANGE REFERENCE UNITS LAB L200.78772 4.5-11.0 K/CU MM Normal WBC 6.4 LAB L200.03806 3.90-5.30 M/CU MM Normal RBC 4.62 LAB L200.60670 11.5-15.5 G/DL Normal HGB 14.3 LAB L200.25980 35.0-47.0 % Normal HCT 43.7 LAB L200.19824 80.0-99.0 fl Normal MCV 94.6 LAB L200.89735 32.0-36.0 GM/DL Normal MCHC 32.7 LAB L200.05635 11-14.5 Normal RDW 13.5 LAB L200.71476 9.4-12.4 Normal MPV 10.2 LAB L200.92665 150-450 K/CU MM Normal PLT 281 LAB L200.39112 Less than 1 % Normal NRBC 0.0 Performed By: #### L200.71033 #### [facility] [place] [address] CMP Collected: 05/10/2018 Status: F Source: [facility] 5:14 PM [facility] REPOSITORY TYPE CODE TESTS RESULT OUT OF RANGE REFERENCE UNITS LAB L500.30061 136-145 MMOL/L Normal NA 140 LAB L500.13142 3.5-5.1 MMOL/L Normal K 4.9 LAB L500.93273 98-107 MMOL/L High CL 108 LAB L500.48803 21-32 MMOL/L Normal CO2 28 LAB L500.69392 5-16 MMOL/L Normal AGAP 5 LAB L500.15400 70-100 MG/DL Normal GLU 87 Result Comment: 70-100- Normal Fasting; 100-125 Impaired Fasting; greater than 126 on more than one result- Diabetes. ADA guidelines. Results may be falsely elevated after the administration of Sulfapyridine. Results may be falsely depressed after the administration of Sulfasalazine. LAB L500.08789 7-26 MG/DL Normal BUN 12 LAB L500.84501 0.510-0.950 MG/DL Normal CREAT 0.716 Result Comment: Patients receiving either N-Acetylcysteine (NAC) or Metamizole prior to venipuncture, may have falsely depressed results. LAB L500.67076 15-24 Normal BUN/CREA 17 LAB L500.15033 6.0-8.5 GM/DL Normal TP 6.6 LAB L500.06651 3.2-5.0 GM/DL Normal ALBUMIN 3.8 LAB L500.67354 2.2-4.2 GM/DL Normal GLOBULIN 2.8 LAB L500.67954 0.8-2.0 Normal A/G RATIO 1.3 LAB L500.34250 8.5-10.1 MG/DL Normal CALCIUM TOTAL 9.4 LAB L500.12129 0.2-1.0 MG/DL Normal BILI TOTAL 0.5 LAB L500.21277 8-34 U/L Normal SGOT (AST) 10 Result Comment: RESULTS MAY BE FALSELY DEPRESSED AFTER THE ADMINISTRATION OF SULFASALAZINE AND/OR SULFAPYRIDINE. LAB L500.09272 13-61 IU/L Normal SGPT (ALT) 15 Result Comment: RESULTS MAY BE FALSELY DEPRESSED AFTER THE ADMINISTRATION OF SULFASALAZINE AND/OR SULFAPYRIDINE. LAB L500.18696 45-117 U/L Normal ALK PHOS 75 Performed By: #### L500.76897, L500.60739, L540.27662, L540.14484, L540.83454, L540.80813 #### [facility] [place] [address] GFR EST Collected: 05/10/2018 Status: F Source: [facility] 5:14 PM [facility] REPOSITORY TYPE CODE TESTS RESULT OUT OF RANGE REFERENCE UNITS LAB L500.11352 ML/MIN Normal IF non-AFR Greater than AMER 60 LAB L500.26636 ML/MIN Normal IF Greater than AMER 60 Performed By: #### L500.09963, L500.15418, L540.06688, L540.46080, L540.48839, L540.04751 #### [facility] [address] [place] [address] HEP A IGM AB Collected: 05/10/2018 Status: F Source: [facility] 5:14 PM [facility] REPOSITORY TYPE CODE TESTS RESULT OUT OF REFERENCE UNITS RANGE LAB L540.45482 NONREACTIVE NONREACTIVE Normal HEP A IGM AB Result Comment: RESULTS WERE OBTAINED WITH THE ADVIA CENTAUR XP HEPATITIS A IgM. VALUES OBTAINED WITH DIFFERENT MANUFACTURERS' ASSAY METHODS MAY NOT BE USED INTERCHANGEABLY. These results may be falsely depressed in the presence of Biotin concentrations above 500 ng/ml. Performed By: #### L500.08098, L500.85899, L540.18229, L540.39719, L540.28011, L540.30111 #### [facility] [place] [address] HBSAG Collected: 05/10/2018 Status: F Source: [facility] 5:14 PM [facility] REPOSITORY TYPE CODE TESTS RESULT OUT OF REFERENCE UNITS RANGE LAB L540.21029 NONREACTIVE NONREACTIVE Normal HBSAG Result Comment: RESULTS WERE OBTAINED WITH THE CENTAUR XP. VALUES OBTAINED WITH DIFFERENT MANUFACTURERS' ASSAY METHODS MAY NOT BE USED INTERCHANGEABLY. Performed By: #### L500.75669, L500.37016, L540.29623, L540.50879, L540.40484, L540.98971 #### [facility] [address] [place] [address] HEP B CORE IGM Collected: 05/10/2018 Status: F Source: [facility] 5:14 PM [facility] REPOSITORY TYPE CODE TESTS RESULT OUT OF REFERENCE UNITS RANGE LAB L540.86807 NONREACTIVE NONREACTIVE Normal HEP B CORE IGM Result Comment: RESULTS WERE OBTAINED WITH THE ADVIA CENTAUR XP ANTI-HBC IGM EIA. VALUES OBTAINED WITH DIFFERENT MANUFACTURERS' ASSAY METHODS MAY NOT BE USED INTERCHANGEABLY. These results may be falsely depressed in the presence of Biotin concentrations above 250 ng/ml. Performed By: #### L500.37536, L500.96561, L540.54825, L540.82278, L540.39617, L540.10214 #### [facility] [address] [place] [address] HEPATITIS C AB Collected: 05/10/2018 Status: F Source: [facility] 5:14 PM [facility] REPOSITORY TYPE CODE TESTS RESULT OUT OF REFERENCE UNITS RANGE LAB L540.37299 NONREACTIVE High HCV REACTIVE AB Result Comment: SENT FOR SUPPLEMENTAL TESTING (HCV ANTIBODY VERIFICATION) Performed By: #### L500.20257, L500.35543, L540.68468, L540.47471, L540.65493, L540.66172 #### [facility] [address] [place] [address] HIV 1/2 Collected: 05/10/2018 Status: F Source: [facility] 5:14 PM [facility] REPOSITORY TYPE CODE TESTS RESULT OUT OF REFERENCE UNITS RANGE LAB L540.14258 NONREACTIVE INDEX NONREACTIVE Normal HIV 1/O/2 QUAL Result Comment: NONREACTIVE: LESS THAN 1.0 INDEX VALUE THIS ASSAY DETECTS HIV p24 ANTIGEN AND ANTIBODIES TO HIV-1 AND HIV-2 BY THE ADVIA CENTAUR CHIV ASSAY. Performed By: #### L540.95250 #### [facility] [place] [address] SO HCV AB VERIF Collected: 05/10/2018 Status: F Source: [facility] 5:14 PM [facility] REPOSITORY TYPE CODE TESTS RESULT OUT OF REFERENCE UNITS RANGE LAB L540.18455 Non Reactive High HCV AB Reactive VERIF Result Comment: This assay is offered to provide verification of a positive HCV antibody screen obtained using the Siemens Advia Centaur HCV assay or other reagent with comparable sensitivity and specificity. Because the verification methodology is French ECLIA, this assay cannot be used to verify an initial screen performed with the French methodology. Performed At: [facility] [id number] Tiffany Whitman PhD [id number] Performed By: #### L540.72758 #### [facility] [address] T-SPOT TB Collected: 05/10/2018 Status: F Source: [facility] 5:14 PM [facility] REPOSITORY Order Comment: T-SPOT SENT TO [facility] 05/11/18 0821 OBDULIO DUBOIS TYPE CODE TESTS RESULT OUT OF RANGE REFERENCE UNITS LAB L700.48530 NEGATIVE Normal T-SPOT NEGATIVE RESULT LAB L700.40718 Normal T-SPOT SEE COMMENT NOTE Result Comment: NOTE: Diagnosing or excluding Tuberculosis disease, and assessing the probability of LTBI, requires a combination of epidemiological, historical, medical and diagnostic findings that should be taken into account when interpreting T-SPOT.TB. Refer to the most rescent CDC Guidance (HTTP://WWW.CDC.GOV/NCHSTP/TB) for detailed recommendations about diagnosing TB infections (including disease) and selecting persons for testing. LAB L700.76869 Normal SEE T-SPOT LIMITS COMMENT Result Comment: LIMITATIONS - 1.) A FALSE NEGATIVE result can be caused by incorrect blood sample collection or improper handling of the specimen, affecting lymphocyte function. 2.) The performance of T-SPOT.TB has not been adequately evaluated with specimens from individuals younger than 17 years, in pregnatnt women, and in patients with hemophilia. 3.) A FALSE POSITIVE result was obtained for T-SPOT.TB when tested in subjects with M.xenopi, M.kansasii, and M.gordonae. While ESAT-6 and CFP-10 antigens are absent from BCG strains of M.bovis and from most enviromental mycobacteria, it is possible that a POSITIVE T-SPOT.TB result may be due to infection with M.kansasii, M.szulgai, M.gordonae, or M.marinum. Alternative tests would be required if these infections are suspected. 4.) A NEGATIVE test result does not exclude the possiblility of exposure to, or infection with M.tuberculosis. Patients with recent exposure to TB infected individuals exhibiting a negative T-SPOT.TB should be considered for retesting within 6 weeks or if other relevant clinical symptoms indicate possible infections. 5.) A POSITIVE test result does not rule in active TB disease: other tests should be performed to confirm the diagnosis of active TB disease such as sputum smear and culture, PCR and chest radiography. 6.) T-SPOT.TB test has not been evaluated in subjects who have received >1 month of anti-TB therapy. 7.) Refrigerated and frozen samples are not recommended for use with T-SPOT.TB test. TESTING PERFORMED AT [facility], [address] [place] [address]. Performed By: #### L700.01293 #### [address] [phone] EMERGENCY DEPARTMENT Observed: 03/09/2018 Status: F Source: [facility] SUMMARY 5:02 PM [facility] REPOSITORY [facility] Medical Records Department [address] [place] [address] Emergency Department Summary 03/09/18 1617 MR#: [id number] Acct: [id number] Name: KAMI WATTS Rep #: [id number] : 1965 52 From: David Montalvo MD PCP: Earnest Rodriguez MD Status: DEP ER - ER Visit Summary Date of Service: 03/09/18 Chief Complaint: Opiate withdrawal History of Present Illness: The patient is a 52 F with symptoms of opiate withdrawal. Patient states that she is addicted to opiates. She states that she will buy Percocet and OxyContin of the street. She tries to use it almost daily. She states that she does snort it. She does not inject. She has remote history of heroin use but has not used in some time. Her last use of opiates was over 3 days ago. She states she has begun to have withdrawal symptoms. She is very upfront that she does not want inpatient detox. She states I just want some help with my symptoms. She is not suicidal or homicidal. She states that she has been having nausea, diarrhea, diaphoresis, and just the symptoms of generalized malaise. She denies any fevers. She denies cough. She denies any other medication use. Physical Examination: Vital signs reviewed General: Well-nourished, well-developed Head: Normocephalic, atraumatic Eyes: Pupils equal and reactive, extraocular muscles intact Neck, supple, no lymphadenopathy Heart: Regular rate and rhythm Respiratory: No distress, clear bilaterally Abdomen: Soft, nontender, nondistended, no peritoneal signs Back: Nontender Extremities: Nontender, no edema, no cords Skin: Normal color no rash Neuro: Alert and oriented, no focal or lateralizing deficits Test Results: [] Emergency Department Course and Treatment: The patient denies any other coingestion. She states that she just uses opiates. She is scheduled to do a detox intake for Suboxone in 12 days. She states she just the symptom control. The patient was given oral clonidine, Bentyl, and Phenergan here. I will prescribe these medications for the next week. She was counseled on concerning symptoms and reasons to return. Patient was offered new visions evaluation, but she declined. She will be discharged home. Treatment Plan: [] Disposition: Discharge Impression: 1. Opiate abuse with withdrawal This note was generated with [employer] dictation software. It may contain incorrect words, spelling, and punctuation that were not noted in review of the chart prior to signing ED Disposition - Plan for ED Patient: Chief Complaint: Subst Abuse Instructions: ED Withdrawal Narcotic Prescriptions: proMETHazine tablet [Phenergan] 25 mg PO Q6H PRN PRN #10 tab PRN Reason: Nausea Dicyclomine HCl [Bentyl] 20 mg PO TIDAC #20 cap Clonidine HCl 0.1 mg PO BID #14 tab Referrals: Earnest Rodriguez MD [Primary Care Provider] - What to do if you have Problems For any increased pain, shortness of breath, bleeding, nausea or vomiting, chest pain, or any unexpected problems, contact your Primary Care Provider. Call [facility] ([phone]) or report to the closest Emergency Room. Call 911 if necessary. 03/09/18 1702 <Electronically signed by David Montalvo MD> Date David Montalvo MD Cosigner Signature (If Indicated): Date CC: Earnest Rodriguez MD ALLERGIES ALLERGIES DATE TYPE / CODE NAME / CODE REACTION SEVERITY SOURCE 12/13/2018 Drug No Known Unknown [facility] Allergy/416 Allergies/Q56377 Hospital 647598(SNOM 0388(RXNORM) Repository ED CT) Drug NO KNOWN [facility] Class/89196 ALLERGIES [facility] 1003(SNOMED Repository CT) ENCOUNTERS ENCOUNTERS ADMIT/DISCHARGE ACCOUNT ADMITTING ENCOUNTER LOCATION SOURCE NUMBER CLASS 12/13/2018/12/13/19 [id number] Emergency Sunray Sunray [facility] ing:ED Repository 12/06/2018 [id number] [facility] g:H.PM Repository 10/22/2018 [id number] [facility] [place] [facility]:H.PM Repository 10/15/2018/10/15/20 [id number] Emergency [address] ing:ED Repository 09/21/2018 [id number] [facility] [place] g:H.PM Repository 08/27/2018 [id number] [facility] [place] g:H.PM Repository 07/27/2018 [id number] [facility] [place] g:H.PM Repository 06/28/2018 [id number] Ambulatory [facility] [place] g:H.PM Repository 06/17/2018/06/17/20 [id number] Ambulatory [address] Repository 06/17/2018/06/18/20 [id number] Ambulatory [address] Repository 06/01/2018/06/02/20 [id number] Ambulatory [address] Repository 05/31/2018 [id number] [facility] [place] g:H.PM Repository 05/24/2018 [id number] Ambulatory [facility] [place] g:H.PM Repository 05/17/2018 [id number] [facility] [place] g:H.PM Repository 05/10/2018 [id number] [facility] [place] g:H.LAB Repository 05/10/2018 [id number] [facility] [place] g:H.PM Repository 05/03/2018 [id number] [facility] [place] g:H.PM Repository 04/22/2018 [id number] [facility] [place] g:H.PM Repository 03/09/2018/03/09/20 [id number] Emergency Chuy Chuy [facility] ing:ED Repository PAYERS PAYERS ENCOUNTER GUARANTOR PAYER SUBSCRIBER SOURCE 12/13/2018 KAMI Primary KAMI Sunray [id number] Insurance[facility] BLANKENSHIPDOB: [facility] Oliver ALEGRE *IN [facility] [id number] Number: Repository [id number]: 330 [id number] [phone] (HP) Date:8263-95-58DH [address] [address]XJ: 12/13/2018 Secondary NOT GIVENUNK Sunray Insurance:SELF PAY [facility] Number: Effective Repository Date:2018-12-13 12/06/2018 KAMI Primary K[facility] [id number] Insurance:[facility] # PLAN [facility] Repository [place], [place] DUALPolicy Number: [id number]: 330 [id number] [phone] (HP) Date:7199-93-89AH [address] [address]OD: 10/22/2018 KAMI Primary KAMI [facility] [id number] Insurance:[facility] # PLAN [facility] Repository [place] DUALPolicy Number: [id number]: 330 [id number] [phone] (HP) Date:6587-53-07RS[address] [address]EY: 10/15/2018 KAMI Primary KAMI Chuy [id number] Insurance:[facility] BLANKENSHIPDOB: [facility] Oliver ALEGRE *IN [facility] [id number] Number: Repository [id number]: 330 [id number] [phone] (HP) Date:7080-12-15LJ [address] [address]DM: 10/15/2018 Secondary NOT GIVENUNK Chuy Insurance:SELF PAY [facility] Number: Effective Repository Date:2018-10-15 09/21/2018 KAMI Primary KAMI [facility] [id number] Insurance[facility] [facility] DUALPolicy Number: [id number]: 330 [id number] [phone] (HP) Date:3169-37-74RQ [place] [address]WP: 08/27/2018 KAMI Primary KAMI [facility] [id number] Insurance:[facility] [facility] [place] DUALPolicy Number: [id number]: (330) [id number] [phone] (HP) Date:3461-14-54II[address] [address]AT: 07/27/2018 KAMI Primary KAMI [facility] [id number] Insurance:UN COMM [facility] # PLAN [place] Repository [facility] DUALPolicy Number: [id number]: (330 [id number] [phone] (HP) Date:2586-25-34[place]RL[place] 00[address]WP: 06/28/2018 KAMI Primary KAMI [facility] [id number] Insurance:UN COMM [facility] # PLAN [facility] Repository [facility] [place] DUALPolicy Number: [id number]: 330 [id number] [phone] (HP) Date:3225-02-67WA [address] [address]GM: 05/31/2018 KAMI Primary KAMI [facility] [id number] Insurance:[facility] # [facility]AN [place] [facility] DUALPolicy Number: [id number]: 330 [id number] [phone] (HP) Date:[address]OM[address] [address]TT: 05/24/2018 KAMI Primary KAMI [facility] [id number] Insurance:UN COMM [facility] # PLAN [employer] Repository [place] DUALPolicy Number: [id number]: 330 [id number] [phone] (HP) Date:9527-30-79BQ[address] [address]EL: 05/17/2018 KAMI Primary KAMI [facility] [id number] Insurance:[facility] # PLAN [place] Repository [facility] DUALPolicy Number: [id number]: 330 [id number] [phone] (HP) Date:4805-15-69VA[address] [address]AC: 05/10/2018 KAMI Primary KAMI [facility] [id number] Insurance:[facility] # PLAN [place] Repository [place] DUALPolicy Number: [id number]: (330 [id number] [phone] (HP) Date:2784-97-96JA[address] [address]NL: 05/10/2018 KAMI Primary KAMI [facility] [id number] Insurance:[facility] # PLAN [place] Repository [place] DUALPolicy Number: [id number]: 330 [id number] [phone] (HP) Date:8132-35-49LF[address] [address]KW: 05/03/2018 KAMI Primary KAMI [facility] [id number] Insurance:[facility] # PLAN [facility] Repository [place] DUALPolicy Number: [id number]: 330 [id number] [phone] (HP) Date:3346-67-84TL [address] [address]UJ: 04/22/2018 KAMI Primary KAMI [facility] [id number] Insurance:[facility] # PLAN [facility] Repository [place] DUALPolicy Number: [id number]: 330 [id number] [phone] (HP) Date:[address] [address]IB: 03/09/2018 Kami Primary Kami Sunray [id number] Insurance:[facility] BlankenshipDOB: [facility] *IN [facility] [id number] Number: Repository [id number]: 330 [id number] [phone] (HP) Date:1497-16-78KZ [address] [address]CT: 03/09/2018 Secondary NOT GIVENUNK Sunray Insurance:SELF PAY [facility] Number: Effective Repository Date:2018-03-09
== END 2018-12-13 14:54 | disposition home or self-care (01) ==
LOC: ED 14:52
PROVIDERS: Emergency Provider Emergency Medicine; Family Provider Family Medicine; PCP Family Medicine
DX: S51.832A Puncture wound without foreign body of left forearm, initial encounter (principal); S61.432A Puncture wound without foreign body of left hand, initial encounter; W55.01XA Bitten by cat, initial encounter; Y93.9 Activity, unspecified; Y92.89 Other specified places as the place of occurrence of the external cause; Y99.9 Unspecified external cause status; Z72.0 Tobacco use
CPT/HCPCS: 73110; 99284

== ENCOUNTER 2018-12-26 22:32 | Emergency (ER) | payer MEDICARE, SELFPAY ==
[2018-12-26 22:33] VITALS: BP 133/75; PULSE 72; RESP 16; TEMP 36.9; O2SAT 97; BMI 28.3
--- NOTE | 2018-12-26 23:55 | RAD_ITS ---
HISTORY: 3 CAT BITES TO RIGHT INDEX FINGER TODAY. PAIN AND SWELLING. COMPARISON: None FINDINGS: XR right hand 3 views No fracture, dislocation, or bony abnormality. Joint spaces are preserved. Mild soft tissue swelling of the proximal right second finger. No radiopaque foreign body. RAD/Hand Min 3 Views IMPRESSION: 1. No fracture or bony abnormality. 2. Mild soft tissue swelling, proximal right second finger. at 0144 Reported and signed by: Sachin Paredes MD Electronically Signed: Sachin Paredes, at 1:43 EST Tel , Service support ,
[2018-12-27] MEDS: Acetaminophen 500 MG Tablet 1000 MG PO (00:03)
[2018-12-27 00:06] LABS: Absolute Lymphocyte Count 2.15 X10^3/ul (0.83-4.51); Absolute Neutrophil Count 7.7 X10^3/uL (2.0-7.7); Basophil# 0.04 X10^3/uL; Basophil% 0.4 % (0-1); Eosinophils% 2.8 % (0-5); Hematocrit 43.8 % (37-47); Hemoglobin 15.2 g/dl (12.0-15.0); Lymphocyte # 2.15 X10^3/ul (4.0); Mean Corp Hgb Conc 34.7 g/gl (32-36); Mean Corpuscular Hgb 33.7 pg (27.0-32.0); Mean Corpuscular Volume 97.1 fL (81-99); Mean Platelet Vol. 9.9 fl (6.2-12.0); Monocyte# 0.59 X10^3/uL; Monocyte% 5.5 % (0-10); Neutrophil # 7.67 X10^3/uL (2.7-7.7); Neutrophil % 71.1 % (47-70); Platelet Count 283 K/mm3 (150-450); RBC Distribution Width CV 13.4 % (11.6-14.6); RBC Distribution Width SD 46.9 fl (35.1-43.9); Red Blood Count 4.51 M/mm3 (4.2-5.4); White Blood Count 10.8 K/mm3 (4.4-11.0)
[2018-12-27 00:07] LABS: Erythrocyte Sedimentation Rate 1 mm/hr (0-30); POSITIVE COUNT NO; POSITIVE DIFFERENTIAL NO; POSITIVE MORPHOLOGY NO
[2018-12-27 00:30] LABS: Anion Gap 8 (5-15); BUN 10 mg/dL (7-18); BUN/Creat Ratio 15.9 RATIO (10-20); CRP < 2.90 mg/L (0.0-3.0); Calcium,Total 8.5 mg/dL (8.5-10.1); Chloride 110 mmol/L (98-107); Creatinine, Serum 0.63 mg/dL (0.55-1.02); EST Glomerular Filtration Rate 105 mL/min (>60); Est Glom Filt Rate - Afr Amer 127 mL/min (>60); Estimated Creatinine Clearance 89.18 ml/min; Glucose 112 mg/dL (74-106); Sodium Level 144 mmol/L (136-145)
[2018-12-27 01:52] VITALS: BP 109/69; PULSE 69; RESP 18; O2SAT 94
--- NOTE | 2018-12-27 01:52 | ED.VISSUMM ---
- ER Visit Summary Date of Service: 12/27/18 Chief Complaint: [] History of Present Illness: The patient is a 53 F [] Physical Examination: [] Test Results: [] Emergency Department Course and Treatment: [] Treatment Plan: Patient accepted at [facility] and [place] by Dr. Medina. We are awaiting squad for transfer. Disposition: Transfer to [facility] Impression: Acute right index finger flexor tenosynovitis secondary to cat bite infection This note was generated with [employer] software. It may contain incorrect words, spelling, and punctuation that were not noted in review of the chart prior to signing <Earnest Mendez - Last Filed: 12/27/18 04:07> - ER Visit Summary Date of Service: 12/27/18 Chief Complaint: Cat bite right hand History of Present Illness: The patient is a 53 F presenting after cat bite. This occurred this afternoon around 2 PM. She was bitten by her own cat. She was bitten on the right index finger. She complains of progressively worsening pain and swelling. Her tetanus is up-to-date. Denies other complaints. Physical Examination: Vitals are stable. Patient is afebrile. Alert no acute distress. HEENT exam is unremarkable. Neck is supple. Lungs are clear and equal bilaterally. Heart is regular rate and rhythm. Extremities right index finger held in passive flexion, diffuse swelling, pain with passive extension. Tenderness along the flexor tendon. Puncture palmar aspect right index finger. Skin is warm and dry. No focal neurologic deficit. Remainder of exam is unremarkable. Emergency Department Course and Treatment: CBC, chemistries unremarkable. ESR and CRP are normal. Right hand x-ray shows soft tissue swelling, no fracture. She was given Unasyn IV. Discussed with Dr. Nelson who recommends transfer to a facility with hand surgery available. She will be transferred to [facility]. Disposition: Transfer to [facility] Impression: Cat bite right index finger, flexor tenosynovitis This note was generated with [employer] software. It may contain incorrect words, spelling, and punctuation that were not noted in review of the chart prior to signing <Ami Orantes - Last Filed: 12/31/18 00:20> ED Disposition <Earnest Mendez - Last Filed: 12/27/18 04:07> <Ami Orantes - Last Filed: 12/31/18 00:20> - Plan for ED Patient: Disposition: Acute Care Hospital - Other Referrals: Earnest Rodriguez MD [Primary Care Provider] -
--- NOTE | 2018-12-27 01:55 | ED.DCSUM_ITS ---
- ER Visit Summary Date of Service: 12/27/18 Chief Complaint: [] History of Present Illness: The patient is a 53 F [] Physical Examination: [] Test Results: [] Emergency Department Course and Treatment: [] Treatment Plan: Patient accepted at [facility] and [place] by Dr. Medina. We are awaiting squad for transfer. Disposition: Transfer to [facility] Impression: Acute right index finger flexor tenosynovitis secondary to cat bite infection This note was generated with [employer] software. It may contain incorrect words, spelling, and punctuation that were not noted in review of the chart prior to signing <Earnest Mendez - Last Filed: 12/27/18 04:07> - ER Visit Summary Date of Service: 12/27/18 Chief Complaint: Cat bite right hand History of Present Illness: The patient is a 53 F presenting after cat bite. This occurred this afternoon around 2 PM. She was bitten by her own cat. She was bitten on the right index finger. She complains of progressively worsening pain and swelling. Her tetanus is up-to-date. Denies other complaints. Physical Examination: Vitals are stable. Patient is afebrile. Alert no acute distress. HEENT exam is unremarkable. Neck is supple. Lungs are clear and equal bilaterally. Heart is regular rate and rhythm. Extremities right index finger held in passive flexion, diffuse swelling, pain with passive extension. Tenderness along the flexor tendon. Puncture palmar aspect right index finger. Skin is warm and dry. No focal neurologic deficit. Remainder of exam is unremarkable. Emergency Department Course and Treatment: CBC, chemistries unremarkable. ESR and CRP are normal. Right hand x-ray shows soft tissue swelling, no fracture. She was given Unasyn IV. Discussed with Dr. Nelson who recommends transfer to a facility with hand surgery available. She will be transferred to [facility]. Disposition: Transfer to [facility] Impression: Cat bite right index finger, flexor tenosynovitis This note was generated with [employer] software. It may contain incorrect words, spelling, and punctuation that were not noted in review of the chart prior to signing <Ami Orantes - Last Filed: 12/31/18 00:20> ED Disposition <Earnest Mendez - Last Filed: 12/27/18 04:07> <Ami Orantes - Last Filed: 12/31/18 00:20> - Plan for ED Patient: Disposition: Acute Care Hospital - Other Referrals: Earnest Rodriguez MD [Primary Care Provider] -
[2018-12-27 03:27] VITALS: BP 101/66; PULSE 63; RESP 18; O2SAT 97
[2018-12-27] MEDS: Acetaminophen 325 MG Tablet 650 MG PO (04:17)
[2018-12-27 04:29] VITALS: BP 106/62; PULSE 64; RESP 18; TEMP 36.8; O2SAT 97
== END 2018-12-27 06:24 | disposition short-term general hospital (02) ==
PROVIDERS: Emergency Provider Emergency Medicine; Family Provider Family Medicine; PCP Family Medicine
DX: M65.841 Other synovitis and tenosynovitis, right hand (principal); W55.01XA Bitten by cat, initial encounter; Y93.9 Activity, unspecified; Y92.89 Other specified places as the place of occurrence of the external cause; Y99.9 Unspecified external cause status; Z72.0 Tobacco use
CPT/HCPCS: 73130; 80048; 85025; 85652; 86140; 96365; 99285; A4216; J0295

== ENCOUNTER 2019-03-20 20:31 | Emergency (ER) | payer MEDICARE, SELFPAY ==
[2019-03-20 20:32] VITALS: BP 129/83; PULSE 83; RESP 18; TEMP 36.7; O2SAT 96; BMI 27.8
--- NOTE | 2019-03-20 20:41 | RAD_ITS ---
STUDY: X-RAY - RIGHT FEMUR REASON FOR STUDY: Female, 53 years old. Right leg trauma TECHNIQUE: AP and lateral view(s) of the femur. COMPARISON: CT 01/14/2016. FINDINGS: Normal visualized femur. The bone mineralization is preserved. There are no acute fractures. Incidentally noted is benign soft tissue calcification overlying the right iliac crest unchanged from prior CT. There is soft tissue edema over the right femur. RAD/Femur Min 2 Views IMPRESSION: Soft tissue edema over the right femur, no acute fractures Electronically Signed: Kevin Thayer, at 21:59 EDT Tel , Service support ,
--- NOTE | 2019-03-20 22:32 | ED.VISSUMM ---
- ER Visit Summary Date of Service: 03/20/19 Chief Complaint: Right thigh pain after being hit by tree branch History of Present Illness: The patient is a 53 F states yesterday she was with a friend who was cutting down a tree or cutting branches out of a tree when 1 of the branches fell hit her on the right shoulder and right thigh causing her right thigh pain. She denies any LOC. Just complaining of pain to the right side worse with walking. She was not knocked out. She is not on blood thinners or any medications. Physical Examination: Well-appearing middle-aged female. Vital signs are stable afebrile. She is in no distress. H EENT exam unremarkable. Neck nontender. Trachea midline. C-spine nontender. Lungs clear to auscultation bilaterally. Heart regular rhythm no murmur. Chest wall nontender. Abdomen soft nontender. Remedies moves all 4. Neurovascular intact. Both upper extremities have normal range of motion and 5 out of 5 registered nurse renal strength. Lower extremities left is unremarkable right normal range of motion to the hip, knee ankle and foot. Dorsi plantar flexion intact. She is able to raise her right leg. There is no gross bony deformity. She does have bruising on her right anterior mid thigh. There is no laceration. Distally the right foot neurovascular intact. Back is nontender. Neurologically she is awake alert with no focal motor or sensory deficits. Test Results: Right femur x-ray several views shows no acute abnormality. Soft tissue swelling. No fracture or dislocation. Read by myself and the radiologist. Emergency Department Course and Treatment: Patient has an obvious bruise and hematoma in her right thigh. Treatment Plan: Motrin limited [place] for pain. Ice and elevate. Patient deferred crutches. Disposition: Discharge Impression: Acute right thigh hematoma secondary to blunt trauma This note was generated with [employer] dictation software. It may contain incorrect words, spelling, and punctuation that were not noted in review of the chart prior to signing ED Disposition - Plan for ED Patient: Referrals: Earnest Rodriguez MD [Primary Care Provider] -
--- NOTE | 2019-03-20 22:35 | ED.DCSUM_ITS ---
- ER Visit Summary Date of Service: 03/20/19 Chief Complaint: Right thigh pain after being hit by tree branch History of Present Illness: The patient is a 53 F states yesterday she was with a friend who was cutting down a tree or cutting branches out of a tree when 1 of the branches fell hit her on the right shoulder and right thigh causing her right thigh pain. She denies any LOC. Just complaining of pain to the right side worse with walking. She was not knocked out. She is not on blood thinners or any medications. Physical Examination: Well-appearing middle-aged female. Vital signs are stable afebrile. She is in no distress. H EENT exam unremarkable. Neck nontender. Trachea midline. C-spine nontender. Lungs clear to auscultation bilaterally. Heart regular rhythm no murmur. Chest wall nontender. Abdomen soft nontender. Remedies moves all 4. Neurovascular intact. Both upper extremities have normal range of motion and 5 out of 5 service order dispatcher strength. Lower extremities left is unremarkable right normal range of motion to the hip, knee ankle and foot. Dorsi plantar flexion intact. She is able to raise her right leg. There is no gross bony deformity. She does have bruising on her right anterior mid thigh. There is no laceration. Distally the right foot neurovascular intact. Back is nontender. Neurologically she is awake alert with no focal motor or sensory deficits. Test Results: Right femur x-ray several views shows no acute abnormality. Soft tissue swelling. No fracture or dislocation. Read by myself and the radiologist. Emergency Department Course and Treatment: Patient has an obvious bruise and hematoma in her right thigh. Treatment Plan: Motrin limited [place] for pain. Ice and elevate. Patient deferred crutches. Disposition: Discharge Impression: Acute right thigh hematoma secondary to blunt trauma This note was generated with [employer] dictation software. It may contain incorrect words, spelling, and punctuation that were not noted in review of the chart prior to signing ED Disposition - Plan for ED Patient: Referrals: Earnest Rodriguez MD [Primary Care Provider] -
--- NOTE | 2019-03-20 22:35 | ED.DEP ---
ED Disposition - Plan for ED Patient: Disposition: Home or Assisted Living Instructions: ED Contusion Lower Ext Prescriptions: Hydrocodone/Acetaminophen [Madelia 5-325 Tablet] 1 ea PO Q4H PRN PRN #10 tab PRN Reason: Pain Additional Instructions: Ice to right thigh and elevate to decrease swelling at home. Motrin for pain and inflammation. [place] for stronger pain. Increase activity as tolerated. Follow-up if not improving.
--- NOTE | 2019-03-20 23:07 | ED.RN ---
PT STATES SHE IS TAKING SUBOXONE. AFTER BEING TOLD SHE COULD NOT HAVE NORCO WHILE ON SUBOXONE, SHE STATED SHE HAD ACTUALLY STOPPED TAKING SUBOXONE 1 MONTH AGO. PER EXTERNAL PHARMACY HISTORY, PT HAD SUBOXONE ORDERED 03/03/19, PT ADMITS SHE IS STILL TAKING SUBOXONE. MD DASILVA, DC'D ORDERS FOR NORCO AND HOME PACK,
== END 2019-03-20 23:09 | disposition home or self-care (01) ==
PROVIDERS: Emergency Provider Emergency Medicine; Family Provider Family Medicine; PCP Family Medicine
DX: S70.11XA Contusion of right thigh, initial encounter (principal); W20.8XXA Other cause of strike by thrown, projected or falling object, initial encounter; Y93.89 Activity, other specified; Y92.89 Other specified places as the place of occurrence of the external cause; Y99.9 Unspecified external cause status; Z72.0 Tobacco use
CPT/HCPCS: 73552; 99281

== ENCOUNTER 2020-04-07 12:04 | Emergency (ER) | payer MEDICARE, MEDICAID, SELFPAY ==
[2020-04-07 12:05] VITALS: BP 126/80; PULSE 99; RESP 17; TEMP 36.1; O2SAT 96; BMI 30.9
[2020-04-07 13:50] VITALS: BP 102/67; PULSE 78; RESP 15; O2SAT 97
--- NOTE | 2020-04-07 14:13 | ED.DCSUM_ITS ---
- ER Visit Summary Date of Service: 04/07/20 Chief Complaint: Vaginal pain History of Present Illness: The patient is a 54 F [facility]. She reports that she has had pain in her vaginal area for approximately 3 weeks. 2 days ago when she was taking a shower it felt as though she were . States that she has not been sexually active for 5 to 6 years. She is never had any thing like this before. Denies any vaginal bleeding or discharge. Patient reports that she has an aching pain in the pelvic region that is 8 out of 10 at worst and 5-10 currently. Is worsened by standing. Is relieved by her Suboxone and NSAIDs. Physical Examination: Vitals: Stable. Afebrile. General: Well-nourished and well-developed. Head: Normocephalic atraumatic. Neck: Supple, no lymphadenopathy. No JVD. Nontender. Cardiovascular: Regular rate and rhythm. No murmurs. Respiratory: No respiratory distress. Clear to auscultation bilaterally. Abdominal: Soft, nontender, nondistended, normal bowel sounds. No guarding, rebound, or peritoneal signs. : Normal external exam. Speculum exam shows a normal cervix. I do not appreciate any uterine or urethral prolapse at this time. Back: Nontender. Extremities: Nontender, no edema. Skin: Normal color, no rash. Neurologic: Alert and oriented ?3. Cranial nerves II through XII are intact. Normal strength and sensation. Psych: Normal affect. Emergency Department Course and Treatment: Patient is resting comfortably without complaint. Treatment Plan: Patient was discussed with Mima Lopez. She will be discharged with instructions to follow-up this week for another exam. It sounds clinically as though she has a uterine prolapse. Return to the emergency department for any worsening symptoms. Disposition: To home in improved and stable condition. Impression: 1. Uterine prolapse. This note was generated with [employer] dictation software. It may contain incorrect words, spelling, and punctuation that were not noted in review of the chart prior to signing ED Disposition - Plan for ED Patient: Instructions: What Is Pelvic Organ Prolapse? Referrals: Mima Lopez CNM [Certified Nurse [employer]] - 1 Week
[2020-04-07 14:35] VITALS: BP 110/75; PULSE 79; RESP 14; O2SAT 99
== END 2020-04-07 14:36 | disposition home or self-care (01) ==
LOC: ED 13:21
PROVIDERS: Emergency Provider Emergency Medicine; PCP Family Medicine
DX: N81.4 Uterovaginal prolapse, unspecified (principal); R05 Cough; F17.210 Nicotine dependence, cigarettes, uncomplicated
CPT/HCPCS: 99282

== ENCOUNTER 2020-08-24 19:28 | Inpatient (IN) | payer MEDICARE, MEDICAID, SELFPAY ==
[2020-08-24 19:28] VITALS: BP 186/127; PULSE 90; RESP 18; TEMP 35.8; O2SAT 98; BMI 35.4
--- NOTE | 2020-08-24 19:42 | CT_ITS ---
STUDY: CT ABDOMEN AND PELVIS WITH CONTRAST REASON FOR EXAM: Female, 55 years old. Diffuse abdominal pain nausea RADIATION DOSAGE (If Supplied By Facility): CTDIvol = ( 18.02 ) mGy, DLP = ( 1179.58 ) mGycm TECHNIQUE: CT images were obtained from the dome of the diaphragm to the symphysis pubis without oral contrast. IV 75mL [id number]-370 was administered. Sagittal and coronal images were reconstructed. Individualized dose optimization techniques were used for this CT. COMPARISON: None. FINDINGS: Lung bases are clear. The liver is fatty infiltrated with heterogeneous density/perfusion without discrete lesions. Portal and hepatic veins are patent. Gallbladder is normal. There is mild extrahepatic biliary dilation with smooth tapering to the papilla. Pancreatic duct is normal and decompressed. Intrahepatic biliary tree is normal and decompressed. There is regional inflammatory change anterior to the portal vein, adjacent to the pancreas and inferior to the second portion of the duodenum, without gas or fluid collection. There is mild heterogeneity in the pancreatic head and uncinate process with normal pancreatic body and tail. Body and tail are surrounded by normal fat. There are no peripancreatic fluid collections. Right kidney contains a subcentimeter hypodense lesion, too small to reliably characterize but presumed to be a cyst. Adrenals and spleen are normal. Bowel is normal. Bladder and uterus are normal. BMI is elevated with intra-abdominal and extra abdominal lipomatosis. There is early aortic atherosclerosis without aneurysm. There are degenerative changes in the lumbar spine with multiple mild thecal sac stenosis. CT/Abdomen/Pelvis W IV Cont ONLY IMPRESSION: 1. Upper retroperitoneal inflammation, possibly pancreatic head pancreatitis and/or duodenitis. 2. Mild extrahepatic biliary dilation, ultrasonography and laboratory assessment is advised to evaluate for possible early cholestasis. 3. Presumed hepatic fatty infiltration and heterogeneity. Hepatology referral is advised. Electronically Signed: Antonio Romero, at 21:20 EDT Tel , Service support ,
--- NOTE | 2020-08-24 19:43 | ED.VISSUMM ---
- ER Visit Summary Date of Service: 08/24/20 Chief Complaint: Diffuse abdominal pain History of Present Illness: The patient is a 55 F history of depression and prior drug abuse including meth, opiates and heroin. Currently on Suboxone and said she is no longer using. She has had prior tubal ligation and umbilical hernia repair. States she was taking a nap she woke up from sleep about 3 hours ago with acute diffuse abdominal pain. States she has not had a bowel movement for about 3 days. Denies any diarrhea or melena. No dysuria. No fever or chills. States she is never had pain like this before. She denies any abdominal trauma. Denies any vaginal bleeding or vaginal discharge. Physical Examination: Middle-aged female complain pain vital signs stable afebrile. Initial blood pressure elevated 186/127. HEENT exam unremarkable. Moist with membranes. Neck nontender no lymphadenopathy. Lungs clear to auscultation bilaterally. Heart regular rhythm rate about 90 no murmur. Abdomen soft. Slightly distended. Mild but diminished bowel sounds. No obvious hernia or mass. No obvious obstruction. Diffusely tender in both upper and lower quadrants. No localizing tenderness to just the right lower quadrant nor any Mccarthy sign. No pulsatile mass. No signs of abdominal wall trauma. Patient is moving all 4 extremities. No edema. Back nontender. Neurologically she is awake and alert with no focal motor deficits. Test Results: White count 7. Hemoglobin 17. No bands. Chemistries unremarkable normal creatinine and gap. Liver enzymes slightly elevated alk phos, ALT and AST. Lipase elevated 670. UA negative. Serum test negative. CAT scan abdomen pelvis with IV contrast read by the radiologist reviewed by me shows what appears to be acute pancreatitis possible duodenitis. Rule out cholestasis. As read by the radiologist. Emergency Department Course and Treatment: Middle-aged female with diffuse nonlocalizing abdominal pain. Only prior abdominal surgeries are tubal ligation and umbilical hernia repair. Clinically does not appear to be appendicitis or cholecystitis. Possible but not convinced this is obstruction. Patient had a history of drug abuse and did not want any narcotics she was treated with IV Toradol, IV fluids and IV Zofran for nausea. Treatment Plan: Repeat exam patient is doing well at 2143. She is comfortable being admitted. I have already spoken to the hospitalist and he will admit her to [facility]. Disposition: [facility] admission Impression: Acute abdominal pain secondary to acute pancreatitis History of prior drug abuse This note was generated with [employer] dictation software. It may contain incorrect words, spelling, and punctuation that were not noted in review of the chart prior to signing ED Disposition - Plan for ED Patient: Referrals: Earnest Rodriguez MD [Primary Care Provider] -
[2020-08-24] MEDS: 0.9% Normal Saline 1,000 ML 1000 ML IV (19:59)
[2020-08-24] MEDS: Ketorolac 30 MG/ML Syringe IV (20:00)
[2020-08-24] MEDS: Ondansetron 4 MG/2 ML Vial IV (20:00)
[2020-08-24 20:13] LABS: Absolute Lymphocyte Count 2.02 X10^3/uL (0.83-4.51); Absolute Neutrophil Count 4.2 X10^3/uL (2.0-7.7); Basophil# 0.05 X10^3/uL; Basophil% 0.7 % (0-1); Eosinophil# 0.21 X10^3/uL; Hematocrit 51.6 % (37-47); Hemoglobin 17.4 g/dL (12.0-15.0); Lymphocyte # 2.02 X10^3/ul (4.0); Lymphocyte % 28.8 % (19-41); Mean Corp Hgb Conc 33.7 g/dL (32-36); Mean Corpuscular Volume 97.9 fL (81-99); Monocyte# 0.51 X10^3/uL; Monocyte% 7.3 % (0-10); NRBC Flagged by Analyzer 0 % (0-5); Neutrophil # 4.18 X10^3/uL (2.7-7.7); Neutrophil % 59.6 % (47-70); Platelet Count 308 K/mm3 (150-450); RBC Distribution Width CV 13.2 % (11.6-14.6); RBC Distribution Width SD 47.6 fl (35.1-43.9); Red Blood Count 5.27 M/mm3 (4.2-5.4)
[2020-08-24 20:24] LABS: Internal QC Validated? YES +Cl - CLEAR BKGD; Pregnancy, Serum, hCG Quali. NEGATIVE Negative
[2020-08-24 20:28] LABS: AST(SGOT) 56 U/L (15-37); Alanine Aminotransfer ALT/SGPT 60 U/L (13-56); Albumin, Serum 3.7 g/dL (3.2-5.0); Alkaline Phosphatase 141 U/L (45-117); Anion Gap 6 (5-15); BUN 4 mg/dL (7-18); BUN/Creat Ratio 6.4 RATIO (10-20); Bilirubin, Direct 0.17 mg/dL (0.00-0.30); Calcium,Total 8.6 mg/dL (8.5-10.1); Chloride 103 mmol/L (98-107); Creatinine, Serum 0.63 mg/dL (0.55-1.02); EST Glomerular Filtration Rate 104 mL/min (>60); Est Glom Filt Rate - Afr Amer 126 mL/min (>60); Estimated Creatinine Clearance 87.13 ml/min; Globulin 3.8 g/dL (2.2-4.2); Glucose 135 mg/dL (74-106); Lipase 670 U/L (73-393); Potassium 3.8 mmol/L (3.5-5.1); Protein, Total 7.5 g/dL (6.4-8.2); Sodium Level 138 mmol/L (136-145)
[2020-08-24 21:33] LABS: Mucous, Urine 0 SEEN /hpf (<or=2+); Red Blood Cells-Urine 0 SEEN /hpf (0-5)
[2020-08-24 21:34] LABS: Color, Urine Yellow (Yellow); Glucose, Dipstick Normal (Normal); Ketone-Dipstick Negative (Negative); Leukocyte Esterase-Dipstick 25 /ul (Negative); Nitrite-Dipstick Negative (Negative); Occult Blood-Urine Negative /ul (Negative); Protein-Dipstick Negative (Negative); Urine Bilirubin Dipstick Negative (Negative); Urine Clarity Clear (Clear); Urine Urobilinogen Normal (Normal)
[2020-08-24 21:57] LABS: Bacteria 1+ /hpf (None Seen); Squamous Epithelial Cells - UA 0-5 SEEN /hpf (5-10); White Blood Cells 0-5 SEEN /hpf (0-5)
[2020-08-24 22:16] VITALS: BP 169/109; PULSE 82; RESP 16; TEMP 36.7
--- NOTE | 2020-08-24 22:19 | PCM.HP.STD ---
Problem List (1) Pancreatitis Status: Acute (2) Recovering alcoholic Status: Chronic (3) History of drug abuse Status: Chronic History of Present Illness Date of Admission: 08/24/20 Chief Complaint: ABDOMINAL PAIN The patient is a 55 year old F with a significant history of recovering alcoholic; drug abuse now on Suboxone; and depression who presents to the emergency department with excruciating constant diffuse abdominal pain that radiated to her back. She denies any ameliorating or aggravating factors. Associated with symptoms is nausea and vomiting. Her pain started about 4 and half hours prior to presentation. The pain woke her up from her sleep. She reports about every other day bowel movement and it is her usual pattern. She denies any recent [id number] medications. Lipase was elevated at emergency department. Abdomen and pelvis CT showed a possible pancreatic head pancreatitis and or/duodenitis; mild extrahepatic biliary dilatation; and presumed hepatic fatty infiltration and heterogenicity. Past Medical History Past Medical History (Chronic Problems): Chronic Problems History of drug abuse (Chronic) Recovering alcoholic (Chronic) Allergies No Known Allergies Allergy (Verified 08/24/20 19:30) Home Medications: Ambulatory Orders Medication Instructions Recorded Buprenorphine HCl/Naloxone HCl 2 strip PO DAILY 10/15/18 [Suboxone 8 mg-2 mg Sl Film] Cyanocobalamin [Vitamin B12] 1,000 mcg PO DAILY@0800 08/24/20 Duloxetine Hcl [Cymbalta] 30 mg PO DAILY 08/24/20 Surgical History: cataract - Bilateral eyes, herniorrhaphy - X2, - - Tubal ligation. Surgery found because of cat bite. Cyst removal from hand. 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 Smoking Status: Current every day smoker Tobacco Use: Cigarettes Alcohol: Sober - *Family History Paternal History Items: Heart Disease, Stroke Maternal History Items: Cancer Review of Systems Constitutional: Denies: Chills, Fever, Weight Change HEENT: Denies: Head Aches, Sinus Congestion, Sinus Drainage Cardiovascular: Denies: Chest Pain, Palpitations Respiratory: Denies: Cough, Shortness of breath at rest, Sputum production Gastrointestinal: Reports: Abdominal Pain, Nausea, Vomiting Genitourinary: Denies: Dysuria Musculoskeletal: Denies: Joint Pain, Joint Tenderness Skin: Denies: Rash, Wounds Neurological: Denies: Numbness, Tingling, Focal weakness Psychiatric: Denies: Anxiety, Depression, Homicidal Ideations, Suicidal Ideations Hematologic/ Lymphatic: Denies: Easy Bruising, Easy Bleeding VTE Information - Inpt Only VTE Present on Admission: No VTE Mechan Device Prophylaxis: SCD's VTE Pharm Prophylaxis ordered?: No Patient Problems: Active and Suspected Problems Pancreatitis (Acute) - Physical Exam Vitals/I&O's: Vital Signs Temp Pulse Resp BP Pulse Ox 98.0 F 82 16 169/109 H 98 08/24/20 22:16 08/24/20 22:16 08/24/20 22:16 08/24/20 22:16 08/24/20 19:28 Oxygen Delivery Method Room Air Weight: 93.8 kg Body Mass Index (BMI) 35.4 Intake and Output for Last 24 Hours 08/22/20 08/23/20 08/24/20 23:59 23:59 23:59 Intake Total 1000 / 1000 Balance 1000 / 1000 General: Alert, Oriented x3, Cooperative HEENT: Atraumatic, PERRLA, EOMI, Normocephalic Neck: Supple, No JVD, Negative Carotid Bruits Lungs: Clear to auscultation, Normal air movement Cardiovascular: Regular rate, Normal S1, Normal S2, No murmurs Abdomen: Bowel Sounds Present, Soft, Tender Extremities: No edema, Capillary Refill Less than 3 Seconds Skin: No rashes, No breakdown Musculoskeletal: No Tenderness to Palpation of Joints or Extremities Neurological: Cranial nerves II-XII grossly intact Psych/Mental Status: Normal Affect, Appropriate Laboratory Results 08/24/20 20:00: WBC 7.0, RBC 5.27, Hgb 17.4 H, Hct 51.6 H, MCV 97.9, MCH 33.0 H, MCHC 33.7, RDW Std Deviation 47.6 H, RDW Coeff of Mamta 13.2, Plt Count 308, MPV 9.0, Immature Gran % (Auto) 0.600, Neut % (Auto) 59.6, Lymph % (Auto) 28.8, [place] % (Auto) 7.3, Eos % (Auto) 3.0, Baso % (Auto) 0.7, Absolute Neuts (auto) 4.2, Absolute Lymphs (auto) 2.02, Nucleated RBC % 0 08/24/20 20:00: Sodium 138, Potassium 3.8, Chloride 103, Carbon Dioxide 29.0, Anion Gap 6, BUN 4 L, Creatinine 0.63, Estim Creat Clear Calc 87.13, Est GFR (MDRD) Af Amer 126, Est GFR (MDRD) Non-Af 104, BUN/Creatinine Ratio 6.4 L, Glucose 135 H, Calcium 8.6, Total Bilirubin 0.40, Direct Bilirubin 0.17, AST 56 H, ALT 60 H, Alkaline Phosphatase 141 H, Total Protein 7.5, Albumin 3.7, Globulin 3.8, Lipase 670 H 08/24/20 20:00: Serum , Qual NEGATIVE 08/24/20 21:20: Urine Color Yellow, Urine Clarity Clear, Urine pH 7.0, Ur Specific [place] 1.010, Urine Protein Negative, Urine Glucose (UA) Normal, Urine Ketones Negative, Urine Occult Blood Negative, Urine Nitrite Negative, Urine Bilirubin Negative, Urine Urobilinogen Normal, Ur Leukocyte Esterase 25 H, Urine RBC 0 SEEN, Urine WBC 0-5 SEEN, Ur Squamous Epith Cells 0-5 SEEN, Urine Bacteria 1+, Urine Mucus 0 SEEN Assessment/Plan All Active Problems Pancreatitis (Acute) The patient is a 55 year old F with a significant history of recovering alcoholic; drug abuse now on Suboxone; and depression who presents emergency department with excruciating constant diffuse abdominal pain that radiated to her back; found to have elevated lipase and abdominal and pelvis CT finding of a possible pancreatic head pancreatitis and/or duodenitis. mild extra hepatic biliary dilatation; and presumed hepatic fatty infiltration and echogenicity. Acute pancreatitis Likely gallstone pancreatitis. Noted to have elevation in liver enzymes. Trend CMP. Lipase is elevated at 670. Normal calcium. Start lipid panel. Because of patient history of drug abuse and currently on Suboxone refused narcotic at emergency department. Toradol IV given at emergency department and continued on as needed basis. Patient thinks that she can eat. Regular diet for now. N.p.o. after midnight with meds and sips of water allowed. Discussed case with general surgery. General surgery consult. Duodenitis CT scan finding of possible duodenitis. Will start on Protonix 40 mg IV twice daily. History of drug abuse. Reports in the past she used methamphetamine and heroin. Home Suboxone continued Tobacco abuse: Nicotine patch prescribed. Counseled. Depression: Celexa continued. DVT prophylaxis Because of possible surgical intervention would hold off chemical thromboprophylaxis at this time. SCD ordered. Inpatient E&M: [id number] Init Hosp L3
[2020-08-24 22:30] VITALS: BMI 35.6
[2020-08-24 22:51] VITALS: BP 144/85; PULSE 75; RESP 20; TEMP 36.8; O2SAT 96
[2020-08-24] MEDS: Lactated Ringers 1,000 ML 250 ML IV (23:16)
[2020-08-24 23:42] LABS: Cholesterol 130 mg/dL (200); High Density Lipoprotein 33 mg/dL; Triglycerides 307 mg/dL; Very Low Density Lipoprotein 61 mg/dL (5-40)
[2020-08-25] MEDS: Ketorolac 15 MG/ML Vial IV (02:13)
[2020-08-25] MEDS: Lactated Ringers 1,000 ML 250 ML IV (03:37)
[2020-08-25 05:00] VITALS: BP 162/106; PULSE 86; RESP 20; TEMP 36.8; O2SAT 95
--- NOTE | 2020-08-25 05:55 | US_ITS ---
STUDY: ABDOMINAL ULTRASOUND - RIGHT UPPER QUADRANT REASON FOR VISIT: Female, 55 years old. Fatty liver, right upper quadrant pain, possible pancreatitis TECHNIQUE: Ultrasound evaluation of the right upper quadrant was performed with real-time and static rogers-scale imaging. TECHNICAL QUALITY: Adequate. COMPARISON: To August 2020 CT FINDINGS: Liver: The liver measures 19 cm. There is increased echogenicity of the liver. The bile ducts are within normal limits. There is hepatic color flow. The direction of portal flow is hepatopetal. There is no demonstrated mass lesion. Gallbladder: Normal distended gallbladder. The gallbladder wall measures 3 mm. There is a negative sonographic Mccarthy''s sign. There is no pericholecystic fluid. There are no gallstones. Common Bile Duct (C.B.D.): The common bile duct measures 11 mm. Pancreas: Pancreas is within normal limits but has fluid surrounding the pancreatic head. Right Kidney: Normal size of the right kidney. The right kidney measures 11.8 x 4.5 x 3.3 cm. Normal renal cortex. The right cortex measures 1.3 cm. There is a 1 cm lateral parenchymal cyst.. There is no right hydronephrosis. US/Abdomen Limited IMPRESSION: 1. Peripancreatic fluid, probably pancreatitis. 2. Mild common biliary duct dilation at 11 mm. This can be associated with pancreatitis. 3. No gallstones. 4. Hepatomegaly and fatty infiltration. Hepatology referral is advised. Electronically Signed: Antonio Romero, at 14:29 EDT Tel , Service support ,
--- NOTE | 2020-08-25 06:00 | NURSING ---
Pt was worried about her car since she drove herself to the ER. I called security and advised them about her vehicle which is a [id number].
[2020-08-25 06:21] LABS: Absolute Lymphocyte Count 1.31 X10^3/uL (0.83-4.51); Absolute Neutrophil Count 5.5 X10^3/uL (2.0-7.7); Basophil# 0.02 X10^3/uL; Basophil% 0.3 % (0-1); Eosinophil# 0.17 X10^3/uL; Eosinophils% 2.3 % (0-5); Hemoglobin 15.1 g/dL (12.0-15.0); Lymphocyte # 1.31 X10^3/ul (4.0); Lymphocyte % 17.6 % (19-41); Mean Corp Hgb Conc 33.6 g/dL (32-36); Mean Corpuscular Hgb 33.1 pg (27.0-32.0); Mean Corpuscular Volume 98.7 fL (81-99); Mean Platelet Vol. 9.1 fl (6.2-12.0); Monocyte% 5.4 % (0-10); NRBC Flagged by Analyzer 0 % (0-5); Neutrophil # 5.52 X10^3/uL (2.7-7.7); Neutrophil % 73.9 % (47-70); Platelet Count 221 K/mm3 (150-450); RBC Distribution Width CV 13.2 % (11.6-14.6); RBC Distribution Width SD 47.8 fl (35.1-43.9); Red Blood Count 4.56 M/mm3 (4.2-5.4); White Blood Count 7.5 K/mm3 (4.4-11.0)
--- NOTE | 2020-08-25 06:43 | CON.PCM_ITS ---
Problem List (1) Abdominal pain Status: Acute Qualifiers: Abdominal location: generalized Qualified Code(s): R10.84 - Generalized abdominal pain Reason for Consult Date of Consultation: 08/25/20 History of Present Illness: The patient is a 55 year old F who I have been asked to see in consultation by Dr. Hendrix for evaluation of abdominal pain and suspected gallstone pancreatitis. A written copy of my surgical consult recommendations will be present in the chart. The patient had acute onset of generalized abdominal pain yesterday. She presented to the emergency room and was hospitalized. She has not had a previous similar episode. She has never previously had an upper endoscopy. She has had no history of gallstone disease. She has not been taking any nonsteroidal anti-inflammatory agents. She has not noticed any bright red blood per rectum or melena. She has not had any significant weight change. She states that she had a previous colonoscopy perhaps a couple years ago. Denies polyps or masses. She does have a history of drug abuse. She is current on ago treatment. She does smoke tobacco cigarettes at a pack per day. Alcohol claims occasional. She states that there was no other unusual behavioral change recently. On her presentation her white count was 7 hemoglobin notably elevated at 17.4 with a hematocrit of 51.6 platelet count 308,000. 59% neutrophils. Her BUN was 4 and creatinine 0.63. Total bilirubin was completely normal at 0.4 with a direct bilirubin of 0.17. AST 56 with an ALT of 60 and alkaline phosphatase of 141. Lipase was 670. It is of additional note however that her triglycerides were high at 307. Cholesterol 130. A CT scan was obtained which I have personally reviewed. There was felt to be a normal gallbladder. Mild extrahepatic biliary dilatation with some smooth tapering to the papilla. The pancreatic duct was felt to be normal decompressed. The intrahepatic biliary tree was felt to be normal and decompressed. There was a regional inflammatory change anterior to the portal vein and adjacent to the pancreas and particularly the inferior portion of the second portions of the duodenum without gas or fluid. There is some minimal heterogeneity of the pancreatic head and uncinate process. The body and tail surrounded by fat normal. No fluid. BMI is noted to be elevated with intra- abdominal and extra-abdominal lipomatosis. The radiologist interpretation was possible pancreatitis but also possible duodenitis. Possible early biliary cholestasis. However recall that the bilirubin is normal. On my review the majority the inflammation appears to be adjacent to the duodenum. Past Medical History Past Medical History (Chronic Problems): Chronic Problems History of drug abuse (Chronic) Recovering alcoholic (Chronic) Allergies No Known Allergies Allergy (Verified 08/24/20 19:30) Home Medications: Ambulatory Orders Medication Instructions Recorded Buprenorphine HCl/Naloxone HCl 2 strip PO DAILY 10/15/18 [Suboxone 8 mg-2 mg Sl Film] Cyanocobalamin [Vitamin B12] 1,000 mcg PO DAILY@0800 08/24/20 Duloxetine Hcl [Cymbalta] 30 mg PO DAILY 08/24/20 Surgical History: cataract - Bilateral eyes, herniorrhaphy - X2, - - Tubal ligation. Surgery found because of cat bite. Cyst removal from hand. Previous history of umbilical hernia repair 18 years ago. 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 Denies history of DVT Skin: Denies: Jaundice Endocrine: Denies: Change in Body Habitus Hematologic/ Lymphatic: Denies: Adenopathy Patient Problems: Active and Suspected Problems Pancreatitis (Acute) Abdominal pain (Acute) - Physical Exam Vitals/I&O's: Vital Signs Temp Pulse Resp BP Pulse Ox 98.3 F 86 20 H 162/106 H 95 08/25/20 05:00 08/25/20 05:00 08/25/20 05:00 08/25/20 05:00 08/25/20 05:00 Oxygen Delivery Method Room Air Weight: 207 lb 10.807 oz Body Mass Index (BMI) 35.6 Intake and Output for Last 24 Hours 08/23/20 08/24/20 08/25/20 23:59 23:59 23:59 Intake Total 1110 / 1110 1000 / 1000 Balance 1110 / 1110 1000 / 1000 General: Alert, Oriented x3, Cooperative, - - Patient appears uncomfortable. She is quite tachypneic. Appears short of breath with minimal exertion HEENT: Atraumatic Oral: Moist Mucosa Neck: Negative Carotid Bruits Lungs: - - Increased anterior posterior diameter. Clear breath sounds in the apices. Poor respiratory excursion, splinting noted Cardiovascular: Regular rate, Regular Rhythm Abdomen: Soft, Hypoactive Bowel Sounds, Distended, Obese, - - Mild diffuse ten derness throughout the entire abdomen. Particularly in the upper abdomen bilaterally Extremities: No edema Skin: No rashes Musculoskeletal: No Tenderness to Palpation of Joints or Extremities Lymphatic: No Cervical, Supraclavicular, or Inguinal Adenopathy Neurological: - - Normal cognition Psych/Mental Status: Normal Affect Laboratory Results 08/24/20 20:00: WBC 7.0, RBC 5.27, Hgb 17.4 H, Hct 51.6 H, MCV 97.9, MCH 33.0 H, MCHC 33.7, RDW Std Deviation 47.6 H, RDW Coeff of Mamta 13.2, Plt Count 308, MPV 9.0, Immature Gran % (Auto) 0.600, Neut % (Auto) 59.6, Lymph % (Auto) 28.8, [place] % (Auto) 7.3, Eos % (Auto) 3.0, Baso % (Auto) 0.7, Absolute Neuts (auto) 4.2, Absolute Lymphs (auto) 2.02, Nucleated RBC % 0 08/24/20 20:00: Sodium 138, Potassium 3.8, Chloride 103, Carbon Dioxide 29.0, Anion Gap 6, BUN 4 L, Creatinine 0.63, Estim Creat Clear Calc 87.13, Est GFR (MDRD) Af Amer 126, Est GFR (MDRD) Non-Af 104, BUN/Creatinine Ratio 6.4 L, Glucose 135 H, Calcium 8.6, Total Bilirubin 0.40, Direct Bilirubin 0.17, AST 56 H, ALT 60 H, Alkaline Phosphatase 141 H, Total Protein 7.5, Albumin 3.7, Globulin 3.8, Lipase 670 H 08/24/20 20:00: Serum , Qual NEGATIVE 08/24/20 20:00: Triglycerides 307 H, Cholesterol 130, LDL Cholesterol 36, VLDL Cholesterol 61 H, HDL Cholesterol 33 L 08/24/20 21:20: Urine Color Yellow, Urine Clarity Clear, Urine pH 7.0, Ur Specific [place] 1.010, Urine Protein Negative, Urine Glucose (UA) Normal, Urine Ketones Negative, Urine Occult Blood Negative, Urine Nitrite Negative, Urine Bilirubin Negative, Urine Urobilinogen Normal, Ur Leukocyte Esterase 25 H, Urine RBC 0 SEEN, Urine WBC 0-5 SEEN, Ur Squamous Epith Cells 0-5 SEEN, Urine Bacteria 1+, Urine Mucus 0 SEEN 08/25/20 06:07: Sodium Pending, Potassium Pending, Chloride Pending, Carbon Dioxide Pending, Anion Gap Pending, BUN Pending, Creatinine Pending, Est GFR (MDRD) Af Amer Pending, Est GFR (MDRD) Non-Af Pending, BUN/Creatinine Ratio Pending, Glucose Pending, Calcium Pending, Total Bilirubin Pending, AST Pending, ALT Pending, Alkaline Phosphatase Pending, Total Protein Pending, Albumin Pending, Lipase Pending 08/25/20 06:07: WBC 7.5, RBC 4.56, Hgb 15.1 H, Hct 45.0, MCV 98.7, MCH 33.1 H, MCHC 33.6, RDW Std Deviation 47.8 H, RDW Coeff of Mamta 13.2, Plt Count 221, MPV 9.1, Immature Gran % (Auto) 0.500, Neut % (Auto) 73.9 H, Lymph % (Auto) 17.6 L, [place] % (Auto) 5.4, Eos % (Auto) 2.3, Baso % (Auto) 0.3, Absolute Neuts (auto) 5.5, Absolute Lymphs (auto) 1.31, Nucleated RBC % 0 Current Medications Buprenorphine HCl (Buprenorphine Hcl) 8 mg SL BID [facility] Cyanocobalamin (Vitamin B12) 1,000 mcg PO DAILY@0800 [facility] Duloxetine HCl (Cymbalta) 30 mg PO DAILY [facility] Lactated Ringer's () 1,000 mls @ 250 mls/hr IV .Q4H [facility] Last Admin: 08/25/20 03:37 Dose: 250 mls/hr Documented by: Pantoprazole Sodium 40 mg/ (Sodium Chloride) 110 mls @ 330 mls/hr IV Q12 [facility] Last Infusion: 08/24/20 23:42 Dose: Infused Documented by: Melatonin (Melatonin) 3 mg PO QHS PRN PRN PRN Reason: INSOMNIA Nicotine (Nicoderm Cq (Pbkc)) 21 mg TRANSDERM. DAILY [facility] Last Admin: 08/24/20 23:25 Dose: 21 mg Documented by: Ondansetron HCl (Zofran) 4 mg IV Q8H PRN PRN PRN Reason: NAUSEA/VOMITING Sodium Chloride () 10 - 40 ml IV UD PRN PRN Reason: SALINE FLUSH Assessment/Plan All Active Problems Pancreatitis (Acute) Abdominal pain (Acute) 55-year-old female with acute onset of generalized abdominal pain. Suggestion of some extrahepatic biliary enlargement. No gallstones seen on CT. The majority of the inflammation seen on CT to me is adjacent to the duodenum. Patient has elevated triglycerides and admits to an non-healthy diet. My initial suspicion is that the findings are consistent with acute duodenitis. We will await the gallbladder ultrasound. Today's laboratory perhaps suggest the concept of pancreatitis. I will obtain a send out COVID-19 test. If the patient needs a future outpatient upper endoscopy we will already have that in the works. If stones are identified then it would be reasonable to offer her laparoscopic cholecystectomy with cholangiograms. If stones are not identified then would consider pursuing a MRCP. She is still having abdominal pain so it is not likely that surgical intervention of any type will be pursued and so that starts to improve. Today's laboratory demonstrates a slight improvement in her hepatocellular enzymes although her lipase level was slightly increased to 871. Appreciate the opportunity of assisting with her surgical care and will follow with you. Kevin Richard M.D., F.A.C.S.
[2020-08-25 06:48] LABS: AST(SGOT) 47 U/L (15-37); Alanine Aminotransfer ALT/SGPT 48 U/L (13-56); Albumin, Serum 2.9 g/dL (3.2-5.0); Alkaline Phosphatase 121 U/L (45-117); Anion Gap 2 (5-15); BUN 5 mg/dL (7-18); BUN/Creat Ratio 8.1 RATIO (10-20); Calcium,Total 7.8 mg/dL (8.5-10.1); Chloride 107 mmol/L (98-107); Creatinine, Serum 0.61 mg/dL (0.55-1.02); EST Glomerular Filtration Rate 107 mL/min (>60); Est Glom Filt Rate - Afr Amer 130 mL/min (>60); Estimated Creatinine Clearance 89.98 ml/min; Globulin 2.8 g/dL (2.2-4.2); Glucose 100 mg/dL (74-106); Lipase 871 U/L (73-393); Potassium 3.9 mmol/L (3.5-5.1); Protein, Total 5.7 g/dL (6.4-8.2); Sodium Level 138 mmol/L (136-145)
[2020-08-25 06:50] VITALS: O2SAT 93
--- NOTE | 2020-08-25 07:27 | NURSING ---
Talked to lab and verified that COVID is a sendout.
--- NOTE | 2020-08-25 08:16 | PCM.PROGNOTE ---
Patient Problems: Active and Suspected Problems Pancreatitis (Acute) Abdominal pain (Acute) Subjective: Chief complaint: Follow-up after admission for acute pancreatitis and duodenitis. Patient seen and examined. No acute events overnight. She is still having abdominal pain, mainly right upper quadrant with minimal improvement. Today, denied nausea or vomiting. Denied fever or chills. Blood pressure slightly elevated, other vital signs are stable. - Physical Exam Vitals/I&O's: Vital Signs Temp Pulse Resp BP Pulse Ox 98.3 F 86 20 H 162/106 H 93 08/25/20 05:00 08/25/20 05:00 08/25/20 05:00 08/25/20 05:00 08/25/20 06:50 Oxygen Delivery Method Room Air Weight: 207 lb 10.807 oz Body Mass Index (BMI) 35.6 Intake and Output for Last 24 Hours 08/23/20 08/24/20 08/25/20 23:59 23:59 23:59 Intake Total 1110 / 1110 1000 / 1000 Balance 1110 / 1110 1000 / 1000 General: Alert, Oriented x3, Cooperative, - - She is in moderate pain. HEENT: Atraumatic, PERRLA, EOMI, Normocephalic Oral: Moist Mucosa, No Gingival or Mucosal Lesions/ Ulcerations Neck: Supple, No JVD, Negative Carotid Bruits, Trachea Midline, Thyroid Normal Size and Texture Lungs: Clear to auscultation, Normal air movement, No rhonchi, No wheeze, No rales, Diminished Cardiovascular: Regular rate, Regular Rhythm, Normal S1, Normal S2, No murmurs, PMI Normal Abdomen: Non-Distended, No Hepato-splenomegaly, Hypoactive Bowel Sounds, Tender - Diffuse generalized tenderness, no guarding or rigidity. Extremities: No clubbing, No cyanosis, No edema Skin: No rashes, No breakdown Lymphatic: No Cervical, Supraclavicular, or Inguinal Adenopathy Neurological: Cranial nerves II-XII grossly intact, Neuro grossly intact Psych/Mental Status: Normal Affect, Appropriate, Alert and oriented to time, place, person, mood and affect Laboratory Results 08/24/20 20:00: WBC 7.0, RBC 5.27, Hgb 17.4 H, Hct 51.6 H, MCV 97.9, MCH 33.0 H, MCHC 33.7, RDW Std Deviation 47.6 H, RDW Coeff of Mamta 13.2, Plt Count 308, MPV 9.0, Immature Gran % (Auto) 0.600, Neut % (Auto) 59.6, Lymph % (Auto) 28.8, [place] % (Auto) 7.3, Eos % (Auto) 3.0, Baso % (Auto) 0.7, Absolute Neuts (auto) 4.2, Absolute Lymphs (auto) 2.02, Nucleated RBC % 0 08/24/20 20:00: Sodium 138, Potassium 3.8, Chloride 103, Carbon Dioxide 29.0, Anion Gap 6, BUN 4 L, Creatinine 0.63, Estim Creat Clear Calc 87.13, Est GFR (MDRD) Af Amer 126, Est GFR (MDRD) Non-Af 104, BUN/Creatinine Ratio 6.4 L, Glucose 135 H, Calcium 8.6, Total Bilirubin 0.40, Direct Bilirubin 0.17, AST 56 H, ALT 60 H, Alkaline Phosphatase 141 H, Total Protein 7.5, Albumin 3.7, Globulin 3.8, Lipase 670 H 08/24/20 20:00: Serum , Qual NEGATIVE 08/24/20 20:00: Triglycerides 307 H, Cholesterol 130, LDL Cholesterol 36, VLDL Cholesterol 61 H, HDL Cholesterol 33 L 08/24/20 21:20: Urine Color Yellow, Urine Clarity Clear, Urine pH 7.0, Ur Specific [place] 1.010, Urine Protein Negative, Urine Glucose (UA) Normal, Urine Ketones Negative, Urine Occult Blood Negative, Urine Nitrite Negative, Urine Bilirubin Negative, Urine Urobilinogen Normal, Ur Leukocyte Esterase 25 H, Urine RBC 0 SEEN, Urine WBC 0-5 SEEN, Ur Squamous Epith Cells 0-5 SEEN, Urine Bacteria 1+, Urine Mucus 0 SEEN 08/25/20 06:07: Sodium 138, Potassium 3.9, Chloride 107, Carbon Dioxide 29.0, Anion Gap 2 L, BUN 5 L, Creatinine 0.61, Estim Creat Clear Calc 89.98, Est GFR (MDRD) Af Amer 130, Est GFR (MDRD) Non-Af 107, BUN/Creatinine Ratio 8.1 L, Glucose 100, Calcium 7.8 L, Total Bilirubin 0.70, AST 47 H, ALT 48, Alkaline Phosphatase 121 H, Total Protein 5.7 L, Albumin 2.9 L, Globulin 2.8, Albumin/Globulin Ratio 1.0, Lipase 871 H 08/25/20 06:07: WBC 7.5, RBC 4.56, Hgb 15.1 H, Hct 45.0, MCV 98.7, MCH 33.1 H, MCHC 33.6, RDW Std Deviation 47.8 H, RDW Coeff of Mamta 13.2, Plt Count 221, MPV 9.1, Immature Gran % (Auto) 0.500, Neut % (Auto) 73.9 H, Lymph % (Auto) 17.6 L, [place] % (Auto) 5.4, Eos % (Auto) 2.3, Baso % (Auto) 0.3, Absolute Neuts (auto) 5.5, Absolute Lymphs (auto) 1.31, Nucleated RBC % 0 08/25/20 06:50: COVID-19 ([facility]) Pending Clinical Impression(s) from Imaging Studies Abdomen/Pelvis CT 08/24/20 19:42 IMPRESSION: 1. Upper retroperitoneal inflammation, possibly pancreatic head pancreatitis and/or duodenitis. 2. Mild extrahepatic biliary dilation, ultrasonography and laboratory assessment is advised to evaluate for possible early cholestasis. 3. Presumed hepatic fatty infiltration and heterogeneity. Hepatology referral is advised. Electronically Signed: Staceysen Nick, at 21:20 EDT Tel , Service support , Current Medications Buprenorphine HCl (Buprenorphine Hcl) 8 mg SL BID [facility] Cyanocobalamin (Vitamin B12) 1,000 mcg PO DAILY@0800 [facility] Duloxetine HCl (Cymbalta) 30 mg PO DAILY [facility] Lactated Ringer's () 1,000 mls @ 150 mls/hr IV .Q6H40M [facility] Last Admin: 08/25/20 03:37 Dose: 250 mls/hr Documented by: Pantoprazole Sodium 40 mg/ (Sodium Chloride) 110 mls @ 330 mls/hr IV Q12 [facility] Last Infusion: 08/24/20 23:42 Dose: Infused Documented by: Melatonin (Melatonin) 3 mg PO QHS PRN PRN PRN Reason: INSOMNIA Nicotine (Nicoderm Cq (Pbkc)) 21 mg TRANSDERM. DAILY [facility] Last Admin: 08/24/20 23:25 Dose: 21 mg Documented by: Ondansetron HCl (Zofran) 4 mg IV Q8H PRN PRN PRN Reason: NAUSEA/VOMITING Sodium Chloride () 10 - 40 ml IV UD PRN PRN Reason: SALINE FLUSH Medical Necessity - Tobacco Use Smoking Status: Current every day smoker Tobacco Use: Cigarettes Assessment/Plan All Active Problems Pancreatitis (Acute) Abdominal pain (Acute) This is a 55 years old female patient presented to the emergency because of diffuse upper abdominal pain, found to have upper retroperitoneal inflammation related to probable acute pancreatitis and or duodenitis and also found to have mild extrahepatic biliary dilatation. #1 acute pancreatitis/duodenitis: Causing upper retroperitoneal inflammation of the surrounding tissues. CT scan abdomen and pelvis with IV contrast reviewed, revealed above-mentioned findings in addition to mild extrahepatic dilatation. Lipase was elevated 617 admission and it is increasing today to 871. LFT revealed normal bilirubin, liver transaminases are slightly elevated and they are trending down as well as alkaline phosphatase. Serum is negative. Ultrasound gallbladder ordered. General surgery consulted. Patient is on IV fluids, IV antiemetics and IV PPI. Plan: Decrease IV fluids to 150 cc/h, continue other treatments, repeat CMP and lipase tomorrow morning. #2 history of drug abuse: Patient reported that she used methamphetamines and heroin in the past. She is on Suboxone, continued. #3 tobacco abuse: Continue NicoDerm patch. #4 depression: Stable, continue Celexa. #5 DVT prophylaxis: SCDs. This note was generated with Gogo dictation software. It may contain incorrect words, spelling, and punctuation that were not noted in checking the note before signing. Inpatient E&M: 68105 Subs Hosp L2
[2020-08-25] MEDS: Lactated Ringers 1,000 ML 150 ML IV ×3 (08:28→20:20)
[2020-08-25] MEDS: BUPRENORPHINE HCL 8 MG TAB.SUBL SL ×2 (09:11→22:21)
--- NOTE | 2020-08-25 09:57 | NURSING ---
@ 0326 pt to u.s. via w/ch
[2020-08-25 10:37] VITALS: BP 156/89; PULSE 80; RESP 18; TEMP 36.6; O2SAT 95
--- NOTE | 2020-08-25 11:20 | CASEMGMT ---
RN DEON Face to Face with patient for initial transition planning/care coordination assessment. RN CM introduced self and role at [facility]. Patient lying in bed, alert and oriented. Patient willing to participate in assessment and is able to answer all questions appropriately. Care providers, pharmacy, and demographics verified. Patient wishes to discharge home, denies need for home health at this time. Patient states she has no further needs or concerns at this time. CM to follow for discharge planning needs that may arise. PCP: Michael Specialists: Anup, pain specialist, Ethan Preferred Pharmacy: [facility] Insurance: [employer] [facility] Prescription Benefit: yes Living Will/HPOA: none LNOK: friend Manjinder Living Arrangements: Patient lives alone in a 2nd floor apartment. Patient states she is able to ambulate the stairs. Transportation: self, friend DME/HHC: Patient denies any DME or previous HHC. Disposition Plan: Patient to discharge home with follow-up plans in place. Rachel GARSIA, RN, CM
--- NOTE | 2020-08-25 13:32 | PCM.PN.BLA ---
Progress Note No gallstones on U/S Will obtain MRCP [facility] Vital Signs/Narrative: Vital Signs Temp Pulse Resp BP Pulse Ox 08/25/20 10:37 97.9 F 80 18 156/89 H 95
[2020-08-25 14:51] VITALS: BP 146/90; PULSE 81; RESP 18; TEMP 36.8; O2SAT 96
[2020-08-25 17:41] VITALS: BP 158/90; PULSE 77; RESP 18; TEMP 37.1; O2SAT 97
[2020-08-25 20:11] VITALS: BP 160/97; PULSE 85; RESP 18; TEMP 36.9; O2SAT 94
[2020-08-25] MEDS: DULoxetine Hcl 30 MG Capsule PO (22:21)
[2020-08-25] MEDS: Cyanocobalamin 500 MCG Tablet 1000 MCG PO (22:22)
[2020-08-26] MEDS: Lactated Ringers 1,000 ML 150 ML IV (03:28)
[2020-08-26 03:35] VITALS: BP 126/75; PULSE 72; RESP 18; TEMP 36.9; O2SAT 95
--- NOTE | 2020-08-26 06:52 | PN.SURG_ITS ---
Patient Problems: Active and Suspected Problems Pancreatitis (Acute) Abdominal pain (Acute) Subjective: Patient states that she feels improved. Less abdominal pain but it is not completely resolved. No nausea. Very little flatus. Gallbladder ultrasound was obtained yesterday. The gallbladder was felt to be normally distended. Wall was 3 mm. No Mccarthy sign. No pericholecystic fluid. No gallstones. The common bile duct measures 11 mm. The pancreas was felt to have some fluid around the pancreatic head. - Physical Exam Vitals/I&O's: Vital Signs Temp Pulse Resp BP Pulse Ox 98.5 F 72 18 126/75 H 95 08/26/20 03:35 08/26/20 03:35 08/26/20 03:35 08/26/20 03:35 08/26/20 03:35 Oxygen Delivery Method Room Air Weight: 207 lb 10.807 oz Body Mass Index (BMI) 35.6 Intake and Output for Last 24 Hours 08/24/20 08/25/20 08/26/20 23:59 23:59 23:59 Intake Total 1110 / 1110 3542.5 / 3542.5 700 / 700 Balance 1110 / 1110 3542.5 / 3542.5 700 / 700 General: Alert, Oriented x3, Cooperative, No apparent distress Lungs: Clear to auscultation Abdomen: Soft, Hypoactive Bowel Sounds, - - Mild tenderness throughout the epigastrium Laboratory Results 08/25/20 06:50: COVID-19 ([facility]) Pending 08/26/20 05:40: Sodium Pending, Potassium Pending, Chloride Pending, Carbon Dioxide Pending, Anion Gap Pending, BUN Pending, Creatinine Pending, Est GFR (MDRD) Af Amer Pending, Est GFR (MDRD) Non-Af Pending, BUN/Creatinine Ratio Pending, Glucose Pending, Calcium Pending, Total Bilirubin Pending, AST Pending, ALT Pending, Alkaline Phosphatase Pending, Total Protein Pending, Albumin Pending, Lipase Pending Current Medications Buprenorphine HCl (Buprenorphine Hcl) 8 mg SL BID [facility] Last Admin: 08/25/20 22:21 Dose: 8 mg Documented by: Cyanocobalamin (Vitamin B12) 1,000 mcg PO QHS [facility] Last Admin: 08/25/20 22:22 Dose: 1,000 mcg Documented by: Duloxetine HCl (Cymbalta) 30 mg PO QHS [facility] Last Admin: 08/25/20 22:21 Dose: 30 mg Documented by: Lactated Ringer's () 1,000 mls @ 150 mls/hr IV .Q6H40M [facility] Last Admin: 08/26/20 03:28 Dose: 150 mls/hr Documented by: Pantoprazole Sodium 40 mg/ (Sodium Chloride) 110 mls @ 330 mls/hr IV Q12 [facility] Last Infusion: 08/25/20 22:40 Dose: Infused Documented by: Melatonin (Melatonin) 3 mg PO QHS PRN PRN PRN Reason: INSOMNIA Nicotine (Nicoderm Cq (Pbkc)) 21 mg TRANSDERM. DAILY [facility] Last Admin: 08/25/20 14:28 Dose: 21 mg Documented by: Ondansetron HCl (Zofran) 4 mg IV Q8H PRN PRN PRN Reason: NAUSEA/VOMITING Sodium Chloride () 10 - 40 ml IV UD PRN PRN Reason: SALINE FLUSH Medical Necessity - Tobacco Use Smoking Status: Current every day smoker Tobacco Use: Cigarettes Assessment/Plan All Active Problems Pancreatitis (Acute) Abdominal pain (Acute) I had requested an MRCP as the CT scan and ultrasound were not definitive. The patient does not seem to have gallstones. The MRCP by report cannot be obtained till tomorrow. We will initiate the patient on clear liquids. Current diagnosis still resolves around duodenitis/pancreatitis. The etiology to her pancreatitis not clear. She does have hypertriglyceridemia. I would offer recommendation for circular tank cooper consultation as it would appear at least at this point that surgical intervention would not be required. We will have to await the MRCP.. Might consider a future outpatient esophagogastroduodenoscopy but again that does not remain urgent at this time. It would be preferable to await COVID testing. Kevin Richard M.D., F.A.C.S.
[2020-08-26 07:00] VITALS: O2SAT 92
[2020-08-26 07:19] LABS: ALB/GLOB Ratio 0.9 RATIO (0.9-2.4); AST(SGOT) 59 U/L (15-37); Alanine Aminotransfer ALT/SGPT 48 U/L (13-56); Albumin, Serum 2.7 g/dL (3.2-5.0); Alkaline Phosphatase 128 U/L (45-117); Anion Gap 5 (5-15); BUN 5 mg/dL (7-18); BUN/Creat Ratio 9.5 RATIO (10-20); Calcium,Total 8.2 mg/dL (8.5-10.1); Chloride 105 mmol/L (98-107); Creatinine, Serum 0.52 mg/dL (0.55-1.02); EST Glomerular Filtration Rate 129 mL/min (>60); Est Glom Filt Rate - Afr Amer 156 mL/min (>60); Estimated Creatinine Clearance 105.56 ml/min; Globulin 3.1 g/dL (2.2-4.2); Glucose 83 mg/dL (74-106); Lipase 220 U/L (73-393); Potassium 3.8 mmol/L (3.5-5.1); Protein, Total 5.8 g/dL (6.4-8.2); Sodium Level 138 mmol/L (136-145)
--- NOTE | 2020-08-26 08:45 | PN_ITS ---
Patient Problems: Active and Suspected Problems Pancreatitis (Acute) Abdominal pain (Acute) Subjective: Chief complaint: Follow-up after admission for acute pancreatitis and duodenitis. Patient seen and examined. No acute events overnight. Today, she is feeling better. Abdominal pain improved, it is down to 4 oxygen severity. Denied nausea or vomiting. Denied fever or chills. Started on clear liquids. Her vital signs are stable. - Physical Exam Vitals/I&O's: Vital Signs Temp Pulse Resp BP Pulse Ox 98.5 F 72 18 126/75 H 92 08/26/20 03:35 08/26/20 03:35 08/26/20 03:35 08/26/20 03:35 08/26/20 07:00 Oxygen Delivery Method Room Air Weight: 207 lb 10.807 oz Body Mass Index (BMI) 35.6 Intake and Output for Last 24 Hours 08/24/20 08/25/20 08/26/20 23:59 23:59 23:59 Intake Total 1110 / 1110 3542.5 / 3542.5 700 / 700 Balance 1110 / 1110 3542.5 / 3542.5 700 / 700 General: Alert, Oriented x3, Cooperative, No apparent distress HEENT: Atraumatic, PERRLA, EOMI, Normocephalic Oral: Moist Mucosa, No Gingival or Mucosal Lesions/ Ulcerations Neck: Supple, No JVD, Negative Carotid Bruits Lungs: Clear to auscultation, Normal air movement, No rhonchi, No wheeze, No rales Cardiovascular: Regular rate, Regular Rhythm, Normal S1, Normal S2, PMI Normal Abdomen: Bowel Sounds Present, Soft, Non-Distended, No Hepato-splenomegaly, Tender Extremities: No clubbing, No cyanosis, No edema Skin: No rashes, No breakdown Lymphatic: No Cervical, Supraclavicular, or Inguinal Adenopathy Neurological: Cranial nerves II-XII grossly intact, Neuro grossly intact Psych/Mental Status: Normal Affect, Appropriate, Alert and oriented to time, place, person, mood and affect Laboratory Results 08/26/20 05:40: Sodium 138, Potassium 3.8, Chloride 105, Carbon Dioxide 28.0, Anion Gap 5, BUN 5 L, Creatinine 0.52 L, Estim Creat Clear Calc 105.56, Est GFR (MDRD) Af Amer 156, Est GFR (MDRD) Non-Af 129, BUN/Creatinine Ratio 9.5 L, Glucose 83, Calcium 8.2 L, Total Bilirubin 0.90, AST 59 H, ALT 48, Alkaline Phosphatase 128 H, Total Protein 5.8 L, Albumin 2.7 L, Globulin 3.1, Albumin/Globulin Ratio 0.9, Lipase 220 Current Medications Buprenorphine HCl (Buprenorphine Hcl) 8 mg SL BID [facility] Last Admin: 08/25/20 22:21 Dose: 8 mg Documented by: Cyanocobalamin (Vitamin B12) 1,000 mcg PO QHS [facility] Last Admin: 08/25/20 22:22 Dose: 1,000 mcg Documented by: Duloxetine HCl (Cymbalta) 30 mg PO QHS [facility] Last Admin: 08/25/20 22:21 Dose: 30 mg Documented by: Lactated Ringer's () 1,000 mls @ 50 mls/hr IV .Q20H [facility] Last Admin: 08/26/20 03:28 Dose: 150 mls/hr Documented by: Pantoprazole Sodium 40 mg/ (Sodium Chloride) 110 mls @ 330 mls/hr IV Q12 [facility] Last Infusion: 08/25/20 22:40 Dose: Infused Documented by: Melatonin (Melatonin) 3 mg PO QHS PRN PRN PRN Reason: INSOMNIA Nicotine (Nicoderm Cq (Pbkc)) 21 mg TRANSDERM. DAILY [facility] Last Admin: 08/25/20 14:28 Dose: 21 mg Documented by: Ondansetron HCl (Zofran) 4 mg IV Q8H PRN PRN PRN Reason: NAUSEA/VOMITING Sodium Chloride () 10 - 40 ml IV UD PRN PRN Reason: SALINE FLUSH Medical Necessity - Tobacco Use Smoking Status: Current every day smoker Tobacco Use: Cigarettes Assessment/Plan All Active Problems Pancreatitis (Acute) Abdominal pain (Acute) This is a 55 years old female patient presented to the emergency because of diffuse upper abdominal pain, found to have upper retroperitoneal inflammation related to probable acute pancreatitis and or duodenitis and also found to have mild extrahepatic biliary dilatation. #1 acute pancreatitis/duodenitis: She is on IV fluids and IV Protonix twice daily. Symptoms improved, less abdominal pain, no more nausea or vomiting. Lipase is down to normal at 220. Liver transaminases are trending down, bilirubin remained normal. Ultrasound gallbladder revealed normal gallbladder, no pericholecystic fluid, no gallstones, CBD is 11 diameters. General surgery on the case. Patient was started on clear liquids this morning. Plan for MRCP tomorrow morning. #2 history of drug abuse: Patient reported that she used methamphetamines and heroin in the past. She is on Suboxone, continued. She is not on any narcotic pain medications at this time. #3 tobacco abuse: Continue NicoDerm patch. #4 depression: Stable, continue Celexa. #5 DVT prophylaxis: SCDs. This note was generated with [employer] dictation software. It may contain incorrect words, spelling, and punctuation that were not noted in checking the note before signing. Inpatient E&M: 92992 Subs Hosp L2
[2020-08-26 08:48] VITALS: BP 153/100; PULSE 81; RESP 18; TEMP 36.6; O2SAT 94
[2020-08-26 09:07] VITALS: BP 142/90
[2020-08-26] MEDS: Lactated Ringers 1,000 ML 50 ML IV ×2 (09:16→15:09)
[2020-08-26] MEDS: BUPRENORPHINE HCL 8 MG TAB.SUBL SL ×2 (09:16→21:09)
[2020-08-26 15:00] VITALS: BP 151/92; PULSE 80; RESP 16; TEMP 36.6; O2SAT 96
[2020-08-26] MEDS: Cyanocobalamin 500 MCG Tablet 1000 MCG PO (21:11)
[2020-08-26] MEDS: DULoxetine Hcl 30 MG Capsule PO (21:11)
[2020-08-26 21:15] VITALS: BP 157/92; PULSE 76; RESP 18; TEMP 37.4; O2SAT 95
[2020-08-27 03:40] VITALS: BP 151/86; PULSE 74; RESP 18; TEMP 37.2; O2SAT 96
--- NOTE | 2020-08-27 05:42 | PN.SURG_ITS ---
Patient Problems: Active and Suspected Problems Pancreatitis (Acute) Abdominal pain (Acute) Subjective: Patient is feeling much improved today. At rest she does not have significant abdominal pain. She tolerated clear liquids. She is again been held n.p.o. after midnight pending MRCP - Physical Exam Vitals/I&O's: Vital Signs Temp Pulse Resp BP Pulse Ox 99.0 F 74 18 151/86 H 96 08/27/20 03:40 08/27/20 03:40 08/27/20 03:40 08/27/20 03:40 08/27/20 03:40 Oxygen Delivery Method Room Air Weight: 207 lb 10.807 oz Body Mass Index (BMI) 35.6 Intake and Output for Last 24 Hours 08/25/20 08/26/20 08/27/20 23:59 23:59 23:59 Intake Total 3542.5 / 3542.5 3338.33 / 3338.33 Output Total 400 / 400 Balance 3542.5 / 3542.5 2938.33 / 2938.33 Abdomen: Soft - Persistent mild tenderness palpation upper abdomen, bowel sounds present Laboratory Results 08/26/20 05:40: Sodium 138, Potassium 3.8, Chloride 105, Carbon Dioxide 28.0, Anion Gap 5, BUN 5 L, Creatinine 0.52 L, Estim Creat Clear Calc 105.56, Est GFR (MDRD) Af Amer 156, Est GFR (MDRD) Non-Af 129, BUN/Creatinine Ratio 9.5 L, Glucose 83, Calcium 8.2 L, Total Bilirubin 0.90, AST 59 H, ALT 48, Alkaline Phosphatase 128 H, Total Protein 5.8 L, Albumin 2.7 L, Globulin 3.1, Albumin/Globulin Ratio 0.9, Lipase 220 Current Medications Buprenorphine HCl (Buprenorphine Hcl) 8 mg SL BID [facility] Last Admin: 08/26/20 21:09 Dose: 8 mg Documented by: Cyanocobalamin (Vitamin B12) 1,000 mcg PO QHS [facility] Last Admin: 08/26/20 21:11 Dose: 1,000 mcg Documented by: Duloxetine HCl (Cymbalta) 30 mg PO QHS [facility] Last Admin: 08/26/20 21:11 Dose: 30 mg Documented by: Lactated Ringer's () 1,000 mls @ 50 mls/hr IV .Q20H [facility] Last Infusion: 08/26/20 21:30 Dose: 50 mls/hr Documented by: Pantoprazole Sodium 40 mg/ (Sodium Chloride) 110 mls @ 330 mls/hr IV Q12 [facility] Last Infusion: 08/26/20 21:30 Dose: Infused Documented by: Melatonin (Melatonin) 3 mg PO QHS PRN PRN PRN Reason: INSOMNIA Nicotine (Nicoderm Cq (Pbkc)) 21 mg TRANSDERM. DAILY [facility] Last Admin: 08/26/20 09:16 Dose: 21 mg Documented by: Ondansetron HCl (Zofran) 4 mg IV Q8H PRN PRN PRN Reason: NAUSEA/VOMITING Sodium Chloride () 10 - 40 ml IV UD PRN PRN Reason: SALINE FLUSH Medical Necessity - Tobacco Use Smoking Status: Current every day smoker Tobacco Use: Cigarettes Assessment/Plan All Active Problems Pancreatitis (Acute) Abdominal pain (Acute) Patient clinically is improved I anticipate proceeding based upon MRCP information. If a distal common bile duct stone is identified on MRCP then I will recommend a laparoscopic cholecystectomy with cholangiograms and laparoscopic common bile duct exploration. If the MRCP is normal then I would concur with discharge planning and I would pursue as an outpatient a upper endoscopy pending send out COVID results. The patient is understanding of the surgical treatment plan and c oncurs. Kevin Richard M.D., F.A.C.S.
[2020-08-27 07:08] VITALS: O2SAT 93
[2020-08-27 08:00] VITALS: BP 142/99; PULSE 73; RESP 18; TEMP 36.8; O2SAT 95
--- NOTE | 2020-08-27 08:30 | MRI_ITS ---
STUDY: MR MRCP WITHOUT CONTRAST REASON FOR EXAM: Female, 55 years old. Pancreatitis vs duodenitis, abd pain x 2 months, F/U TO CT and amp; U/S ABD TECHNIQUE: Standard MRCP technique was utilized. COMPARISON: 08/24/2020 CT abdomen/pelvis. FINDINGS: Gall Bladder: Normal with no distention or demonstrated fixed intraluminal filling defect. Cystic duct: Normal with no demonstrated fixed filling defect. Intrahepatic ducts: Normal visualized intrahepatic ducts with no demonstrated fixed filling defect, dilation or stricture. Common hepatic duct: Normal with no demonstrated fixed filling defect, dilation or stricture. Common bile duct: Dilated diffusely measuring 8 mm with no demonstrated fixed filling defect. Pancreatic duct: Borderline prominence measuring 3 mm with no demonstrated fixed filling defect. There is fluid/edema adjacent to the head of the pancreas and duodenum suspicious for pancreatitis and possible duodenitis. MRI/MRCP Abdomen without Contrast IMPRESSION: Dilated common bile duct. Borderline pancreatic ductal prominence. There is fluid/edema adjacent to the head of the pancreas and duodenum suspicious for pancreatitis and possible duodenitis. No evidence of choledocholithiasis. Electronically Signed: Riley Khalil DO at 10:27 EDT Tel [phone], Service support ,
--- NOTE | 2020-08-27 08:30 | NURSING ---
Off unit to MRI at this time.
--- NOTE | 2020-08-27 09:19 | PCM.PN.HOSP ---
Patient Problems: Active and Suspected Problems Pancreatitis (Acute) Abdominal pain (Acute) Vitals/I&O's: Vital Signs Temp Pulse Resp BP Pulse Ox 98.3 F 73 18 142/99 H 95 08/27/20 08:00 08/27/20 08:00 08/27/20 08:00 08/27/20 08:00 08/27/20 08:00 Oxygen Delivery Method Room Air Weight: 207 lb 10.807 oz Body Mass Index (BMI) 35.6 Intake and Output for Last 24 Hours 08/25/20 08/26/20 08/27/20 23:59 23:59 23:59 Intake Total 3542.5 / 3542.5 3338.33 / 3338.33 537.5 / 537.5 Output Total 400 / 400 Balance 3542.5 / 3542.5 2938.33 / 2938.33 537.5 / 537.5 Current Medications Buprenorphine HCl (Buprenorphine Hcl) 8 mg SL BID [facility] Last Admin: 08/26/20 21:09 Dose: 8 mg Documented by: Cyanocobalamin (Vitamin B12) 1,000 mcg PO QHS [facility] Last Admin: 08/26/20 21:11 Dose: 1,000 mcg Documented by: Duloxetine HCl (Cymbalta) 30 mg PO QHS [facility] Last Admin: 08/26/20 21:11 Dose: 30 mg Documented by: Lactated Ringer's () 1,000 mls @ 50 mls/hr IV .Q20H [facility] Last Infusion: 08/27/20 08:15 Dose: 0 mls/hr Documented by: Pantoprazole Sodium 40 mg/ (Sodium Chloride) 110 mls @ 330 mls/hr IV Q12 [facility] Last Infusion: 08/26/20 21:30 Dose: Infused Documented by: Melatonin (Melatonin) 3 mg PO QHS PRN PRN PRN Reason: INSOMNIA Nicotine (Nicoderm Cq (Pbkc)) 21 mg TRANSDERM. DAILY [facility] Last Admin: 08/26/20 09:16 Dose: 21 mg Documented by: Ondansetron HCl (Zofran) 4 mg IV Q8H PRN PRN PRN Reason: NAUSEA/VOMITING Sodium Chloride () 10 - 40 ml IV UD PRN PRN Reason: SALINE FLUSH STROKE Vital Signs/Narrative: Vital Signs Temp Pulse Resp BP Pulse Ox 08/27/20 08:00 98.3 F 73 18 142/99 H 95 08/27/20 07:08 93 Medical Necessity - Tobacco Use Smoking Status: Current every day smoker Tobacco Use: Cigarettes Assessment/Plan All Active Problems Pancreatitis (Acute) Abdominal pain (Acute) This is a 55 years old female patient presented to the emergency because of diffuse upper abdominal pain, found to have upper retroperitoneal inflammation related to probable acute pancreatitis and or duodenitis and also found to have mild extrahepatic biliary dilatation. #1 acute pancreatitis/duodenitis: She is on IV fluids and IV Protonix twice daily. Symptoms improved, less abdominal pain, no more nausea or vomiting. Lipase is down to normal at 220. Liver transaminases are trending down, bilirubin remained normal. Ultrasound gallbladder revealed normal gallbladder, no pericholecystic fluid, no gallstones, CBD is 11 diameters. General surgery on the case. Patient was started on clear liquids this morning. Plan for MRCP tomorrow morning. #2 history of drug abuse: Patient reported that she used methamphetamines and heroin in the past. She is on Suboxone, continued. She is not on any narcotic pain medications at this time. #3 tobacco abuse: Continue NicoDerm patch. #4 depression: Stable, continue Celexa. #5 DVT prophylaxis: SCDs.
--- NOTE | 2020-08-27 10:16 | NURSING ---
Pt returned from MRI.
[2020-08-27] MEDS: 0.9% Saline Lock 10 ML Syringe IV (10:21)
[2020-08-27] MEDS: BUPRENORPHINE HCL 8 MG TAB.SUBL SL (10:22)
--- NOTE | 2020-08-27 10:44 | PCM.PN.BLA ---
Progress Note Dilated common bile duct with fluid around the duodenum and pancreas consistent duodenitis and pancreatitis. No gallstones or common duct stones identified. I will initiate a full liquid diet. Discharge when comfortable. I anticipate short-term follow-up with her with an EGD in the near future pending results of her COVID test. We will help schedule and arrange. Kevin Richard M.D., F.A.C.S. STROKE Vital Signs/Narrative: Vital Signs Temp Pulse Resp BP Pulse Ox 08/27/20 08:00 98.3 F 73 18 142/99 H 95 08/27/20 07:08 93
[2020-08-27 13:58] VITALS: BP 131/87; PULSE 88; RESP 18; TEMP 36.9; O2SAT 97
--- NOTE | 2020-08-27 15:46 | DCINST_ITS ---
- Discharge Diagnoses Current Active Problems: Current Active and Chronic Problems Pancreatitis (Acute) History of drug abuse (Chronic) Abdominal pain (Acute) You will use the following diet at home:: Other - Soft diet for 3 days and then low-fat regular diet Your food should be the consistency of: Regular Your liquids should be the consistency of: Regular/Thin Discharge Activity: May Not Drive - for 2 weeks until follow-up with PCP Weight Bearing Status: Weight bearing as tolerated Call your doctor if you observe: Fever of 101 or Higher, Numbness or Tingling, Inability to urinate, Inability to have a bowel movement, Shortness of breath, Dizziness, Fainting spells, Swelling in the ankles, Chest pain, Prolonged hiccoughing, Increased palpitations (irregular heartbeat), Calf discomfort, Uncontrolled pain Allergies/Adverse Reactions: Allergies No Known Allergies Allergy (Verified 08/24/20 19:30) Medications to take at Discharge Buprenorphine HCl/Naloxone HCl [Suboxone 8 mg-2 mg Sl Film] 2 strip PO DAILY 10/15/18 Cyanocobalamin [Vitamin B12] 1,000 mcg PO DAILY@0800 08/24/20 Duloxetine Hcl [Cymbalta] 30 mg PO DAILY 08/24/20 Nicotine [Nicoderm Cq] 21 mg TRANSDERM. DAILY #30 patch 08/27/20 Ondansetron [Ondansetron Odt] 4 mg PO Q6H PRN PRN #30 tab.rapdis 08/27/20 Pantoprazole Sodium [Protonix] 40 mg PO BID #60 tab 08/27/20 The following prescriptions were given: Nicotine [Nicoderm Cq] 21 mg TRANSDERM. DAILY #30 patch Transmission Status: Pending to [facility] #30 Ondansetron [Ondansetron Odt] 4 mg PO Q6H PRN PRN #30 tab.rapdis PRN Reason: Nausea/Vomiting Transmission Status: Pending to [facility] #30 Pantoprazole Sodium [Protonix] 40 mg PO BID #60 tab Transmission Status: Pending to [facility] #30 Primary Care Physician: Earnest Rodriguez MD [Primary Care Provider] - Please follow up with your Primary Care Physician in: in 2 weeks Test Results: Test results from this visit will be discussed in further detail at your follow- up appointment, if applicable. Please Follow Up With: Kevin Richard MD When: in 1-2 weeks
--- NOTE | 2020-08-27 15:49 | PCM.DC.SUM ---
Discharge Date and Diagnosis - Problem List Patient Problems: Active and Suspected Problems Pancreatitis (Acute) Abdominal pain (Acute) Date of Admission: 08/24/20 Date of Discharge: 08/27/20 - Primary Discharge Diagnosis Acute Problems: Active Problems Pancreatitis (Acute) Abdominal pain (Acute) Acute duodenitis and acute pancreatitis - Secondary Discharge Diagnosis Chronic Problems: Chronic Problems History of drug abuse (Chronic) Recovering alcoholic (Chronic) Hospital Course and Treatment Imaging Results: 08/27/20 08:30 MRCP Abdomen without Contrast [MRI] Urgent Summary of Care Provided: This is a 55 years old female patient was admitted on [facility] floor for diffuse upper abdominal pain, found to have upper retroperitoneal inflammation related to probable acute pancreatitis and or duodenitis and also found to have mild extrahepatic biliary dilatation. #1 acute pancreatitis/duodenitis: Patient was treated with IV Protonix twice daily, IV fluid. Lipase was 871, improved to 220 normal. Liver transaminases are trending down. Total bilirubin 0.9. Alkaline phosphatase 128. Triglyceride 307. Ultrasound gallbladder revealed normal gallbladder, no pericholecystic fluid, no gallstones, CBD is 11 diameters. Patient was seen by Dr. Kevin Richard and MRCP was done. MRCP shows dilated CBD with borderline pancreatic ductal prominence with fluid/[facility] head of pancreas and duodenum suspicious for pancreatitis and duodenitis. COVID-19 PCR is negative, was done in anticipation of outpatient EGD. Patient tolerated clear liquid diet and his abdominal pain is much improved. Patient is discharged on Protonix and Zofran as needed and follow with surgery follow-up in 1 week for outpatient EGD. #2 history of drug abuse: Patient reported that she used methamphetamines and heroin in the past. She is on Suboxone, continued. She is not on any narcotic pain medications at this time. #3 tobacco abuse: Continue NicoDerm patch. #4 depression: Stable, continue Celexa. #5 DVT prophylaxis: SCDs. Discharge medication reconciliation done. Discharge follow-up instructions completed. Discharge process discussed with the patient and all questions were answered to patient's satisfaction. Prescriptions were sent to the patient's pharmacy. Total time spent, exact 35 minutes on discharge meds reconciliation, examination, coordination of care with nurses and ancillary staff, review of imaging and blood test and discussion with the patient on follow-up instructions [] Clinical Impression(s) from Imaging Studies Abdomen/Pelvis CT 08/24/20 19:42 IMPRESSION: 1. Upper retroperitoneal inflammation, possibly pancreatic head pancreatitis and/or duodenitis. 2. Mild extrahepatic biliary dilation, ultrasonography and laboratory assessment is advised to evaluate for possible early cholestasis. 3. Presumed hepatic fatty infiltration and heterogeneity. Hepatology referral is advised. Abdomen Ultrasound 08/25/20 05:55 IMPRESSION: 1. Peripancreatic fluid, probably pancreatitis. 2. Mild common biliary duct dilation at 11 mm. This can be associated with pancreatitis. 3. No gallstones. 4. Hepatomegaly and fatty infiltration. Hepatology referral is advised. MRCP 08/27/20 08:30 IMPRESSION: Dilated common bile duct. Borderline pancreatic ductal prominence. There is fluid/edema adjacent to the head of the pancreas and duodenum suspicious for pancreatitis and possible duodenitis. No evidence of choledocholithiasis. Patient Problems: Active and Suspected Problems Pancreatitis (Acute) Abdominal pain (Acute) Objective: And examined. Seen and examined. Patient does not have fever or chills. Blood pressure is controlled. Patient tolerated clear liquid diet after the MRCP. No nausea vomiting or increase in the belly pain. Abdominal pain is much improved. Physical exam General: Alert, Oriented x3, Cooperative HEENT: Atraumatic, PERRLA, EOMI, Normocephalic Oral: No Gingival or Mucosal Lesions/ Ulcerations Neck: Supple, No JVD, Negative Carotid Bruits Lungs: Air entry diminished in bilateral lung bases. No crepitation/rhonchi Cardiovascular: Regular rate, Regular Rhythm, Normal S1, Normal S2, No murmurs Abdomen: Bowel Sounds Present, Soft, Non-Distended. Mild tenderness on deep palpation in the right upper quadrant and epigastric region. : No renal angle tenderness. No suprapubic tenderness. Extremities: No edema, Capillary Refill Less than 3 Seconds Skin: No rashes, No breakdown Musculoskeletal: No Tenderness to Palpation of Joints or Extremities Neurological: Cranial nerves II-XII grossly intact, Deep Tendon Reflexes 2+/4 and Symmetrical, Neuro grossly intact Psych/Mental Status: Normal Affect, Appropriate. - Physical Exam Vitals/I&O's: Vital Signs Temp Pulse Resp BP Pulse Ox 98.4 F 88 18 131/87 H 97 08/27/20 13:58 08/27/20 13:58 08/27/20 13:58 08/27/20 13:58 08/27/20 13:58 Oxygen Delivery Method Room Air Weight: 207 lb 10.807 oz Body Mass Index (BMI) 35.6 Intake and Output for Last 24 Hours 08/25/20 08/26/20 08/27/20 23:59 23:59 23:59 Intake Total 3542.5 / 3542.5 3338.33 / 3338.33 1097.5 / 1097.5 Output Total 400 / 400 Balance 3542.5 / 3542.5 2938.33 / 2938.33 1097.5 / 1097.5 Laboratory Results 08/25/20 06:50: COVID-19 ([facility]) Not Detected Current Medications Buprenorphine HCl (Buprenorphine Hcl) 8 mg SL BID [facility] Last Admin: 08/27/20 10:22 Dose: 8 mg Documented by: Cyanocobalamin (Vitamin B12) 1,000 mcg PO QHS [facility] Last Admin: 08/26/20 21:11 Dose: 1,000 mcg Documented by: Duloxetine HCl (Cymbalta) 30 mg PO QHS [facility] Last Admin: 08/26/20 21:11 Dose: 30 mg Documented by: Lactated Ringer's () 1,000 mls @ 50 mls/hr IV .Q20H [facility] Last Infusion: 08/27/20 10:41 Dose: 50 mls/hr Documented by: Pantoprazole Sodium 40 mg/ (Sodium Chloride) 110 mls @ 330 mls/hr IV Q12 [facility] Last Infusion: 08/27/20 10:41 Dose: Infused Documented by: Melatonin (Melatonin) 3 mg PO QHS PRN PRN PRN Reason: INSOMNIA Nicotine (Nicoderm Cq (Pbkc)) 21 mg TRANSDERM. DAILY [facility] Last Admin: 08/27/20 10:22 Dose: 21 mg Documented by: Ondansetron HCl (Zofran) 4 mg IV Q8H PRN PRN PRN Reason: NAUSEA/VOMITING Sodium Chloride () 10 - 40 ml IV UD PRN PRN Reason: SALINE FLUSH Last Admin: 08/27/20 10:21 Dose: 10 ml Documented by: Discharge Activity: May Not Drive - for 2 weeks until follow-up with PCP Weight Bearing Status: Weight bearing as tolerated Call your doctor if you observe: Fever of 101 or Higher, Numbness or Tingling, Inability to urinate, Inability to have a bowel movement, Shortness of breath, Dizziness, Fainting spells, Swelling in the ankles, Chest pain, Prolonged hiccoughing, Increased palpitations (irregular heartbeat), Calf discomfort, Uncontrolled pain Home Medications: Medications to take at Discharge Buprenorphine HCl/Naloxone HCl [Suboxone 8 mg-2 mg Sl Film] 2 strip PO DAILY 10/15/18 Cyanocobalamin [Vitamin B12] 1,000 mcg PO DAILY@0800 08/24/20 Duloxetine Hcl [Cymbalta] 30 mg PO DAILY 08/24/20 Nicotine [Nicoderm Cq] 21 mg TRANSDERM. DAILY #30 patch 08/27/20 Ondansetron [Ondansetron Odt] 4 mg PO Q6H PRN PRN #30 tab.rapdis 08/27/20 Pantoprazole Sodium [Protonix] 40 mg PO BID #60 tab 08/27/20 Following Prescriptions Were Given to Patient: Nicotine [Nicoderm Cq] 21 mg TRANSDERM. DAILY #30 patch Transmission Status: Pending to [facility] #30 Ondansetron [Ondansetron Odt] 4 mg PO Q6H PRN PRN #30 tab.rapdis PRN Reason: Nausea/Vomiting Transmission Status: Pending to [facility] #30 Pantoprazole Sodium [Protonix] 40 mg PO BID #60 tab Transmission Status: Pending to [facility] #30 Primary Care Physician: Earnest Rodriguez MD [Primary Care Provider] - Please follow up with your Primary Care Physician in: in 2 weeks Please Follow Up With: Kevin Richard MD When: in 1-2 weeks Medical Necessity - Tobacco Use Smoking Status: Current every day smoker Tobacco Use: Cigarettes Meaningful Use Info Meaningful Use Diagnoses (Choose all that apply): None applicable Inpatient E&M: 68167 [facility]
== END 2020-08-27 16:34 | disposition home or self-care (01) | DRG 440 ==
LOC: ED 19:51 → MS3 22:10
PROVIDERS: Hospitalist; Surgery; Admitting Provider Hospitalist; Emergency Provider Emergency Medicine; PCP Family Medicine; Visit Provider Internal Medicine
DX: K85.10 Biliary acute pancreatitis without necrosis or infection (principal); F15.10 Other stimulant abuse, uncomplicated; F11.10 Opioid abuse, uncomplicated; F10.21 Alcohol dependence, in remission; F17.210 Nicotine dependence, cigarettes, uncomplicated; K29.80 Duodenitis without bleeding; E88.2 Lipomatosis, not elsewhere classified; E78.1 Pure hyperglyceridemia; Z82.3 Family history of stroke; Z98.51 Tubal ligation status; F32.9 Major depressive disorder, single episode, unspecified; K83.8 Other specified diseases of biliary tract
CPT/HCPCS: 36415; 74177; 74181; 76705; 80048; 80053; 80061; 80076; 81001; 83690; 84703; 85025; 87635; 99283; 99406; J7030; J7120; Q9967; A4216; J2405; U0003

== ENCOUNTER 2020-09-04 05:17 | Day surgery (SDC) | payer MEDICARE, MEDICAID, SELFPAY ==
[2020-08-24 22:30] VITALS: BMI 35.6
[2020-09-04] VITALS (8 sets, daily range): BP systolic 123–168; BP diastolic 85–142; PULSE 71–80; RESP 16–18; TEMP 36.2–37.3; O2SAT 94–99; BMI 35.6
--- NOTE | 2020-09-04 06:12 | HP.PCM_ITS ---
Problem List (1) Duodenitis Status: Acute (2) Pancreatitis Status: Acute Qualifiers: Chronicity: acute Pancreatitis type: unspecified pancreatitis type Acute pancreatitis complication: unspecified Qualified Code(s): K85.90 - Acute pancreatitis without necrosis or infection, unspecified History of Present Illness Date of Admission: 09/04/20 The patient is a 55 year old F who was hospitalized at the [facility] from August 24 through August 27, 2020 with abdominal pain. The etiology abdominal pain not completely determined. Possible acute duodenitis. Possible pancreatitis. The patient had inflammation around the duodenum and partially around the head of the pancreas. Lipase was slightly elevated but resolved. At discharge she was given a prescription for pantoprazole 40 mg twice daily. She was also given instructions to follow-up with her primary care physician Dr. Earnest Rodriguez. She has not made that appointment nor has she contacted him. She is somewhat unclear but thinks she is taking the prescription medicine for her duodenitis. She states that she continues to have upper abdominal pain however. She has been able to eat. Past Medical History Past Medical History (Chronic Problems): Chronic Problems History of drug abuse (Chronic) Recovering alcoholic (Chronic) Allergies No Known Allergies Allergy (Verified 08/24/20 19:30) Home Medications: Ambulatory Orders Medication Instructions Recorded Buprenorphine HCl/Naloxone HCl 2 strip PO DAILY 10/15/18 [Suboxone 8 mg-2 mg Sl Film] Cyanocobalamin [Vitamin B12] 1,000 mcg PO DAILY@0800 08/24/20 Duloxetine Hcl [Cymbalta] 30 mg PO DAILY 08/24/20 Nicotine [Nicoderm Cq] 21 mg TRANSDERM. DAILY #30 patch 08/27/20 Ondansetron [Ondansetron Odt] 4 mg PO Q6H PRN PRN #30 tab.rapdis 08/27/20 Pantoprazole Sodium [Protonix] 40 mg PO BID #60 tab 08/27/20 Surgical History: cataract - Bilateral eyes, herniorrhaphy - X2, - - Tubal ligation. Surgery found because of cat bite. Cyst removal from hand. Previous history of umbilical hernia repair 18 years ago. 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 Denies: Melena, Vomiting Endocrine: Denies: Change in Body Habitus VTE Information - Inpt Only VTE Present on Admission: No - Physical Exam Vitals/I&O's: Vital Signs Temp Pulse Resp BP Pulse Ox 98.5 F 80 16 168/105 H 94 09/04/20 05:39 09/04/20 05:39 09/04/20 05:39 09/04/20 05:39 09/04/20 05:39 Oxygen Delivery Method Room Air Body Mass Index (BMI) 35.6 General: Alert, Cooperative, No apparent distress HEENT: Atraumatic Oral: Moist Mucosa Lungs: Clear to auscultation Cardiovascular: Regular rate, Regular Rhythm Abdomen: Bowel Sounds Present - Mild tenderness in the upper abdomen diffusely without guarding or rebound, Soft Psych/Mental Status: Normal Affect Assessment/Plan All Active Problems Pancreatitis (Acute) Abdominal pain (Acute) Duodenitis (Acute) Etiology of the patient's upper abdominal pain indeterminate. I have proposed for her a esophagogastroduodenoscopy with anticipated biopsy. She is aware of the technique, benefit, risk, alternatives. She is aware that during her hospitalization gallbladder ultrasound and CT scan and MRCP all failed to demonstrate gallstones. A slightly enlarged common bile duct was identified. At the time of her discharge her total bilirubin was 0.9 direct bilirubin 0.17 AST 59 and ALT 48 and alkaline phosphatase 128. Her triglycerides when she presented were high at 307. Kevin Richard M.D., F.A.C.S. Procedure Criteria Procedure Type: Elective COVID Risk Discussion: The surgeon/proceduralist and patient have discussed in detail the risk of exposure to and/or potential harm posed by the COVID-19 virus with having a surgery/procedure at this time versus the risk of delaying the surgery/procedure. It is not possible to know either the risk of delaying the surgery or procedure or chance of getting an infection with perfect accuracy, but a joint decision was made between the patient and the surgeon/proceduralist to proceed at this time with the scheduled surgery/procedure as indicated on the consent form.
[2020-09-04] MEDS: Lactated Ringers 1,000 ML 100 ML IV (06:19)
--- NOTE | 2020-09-04 06:30 | EGD_PTH ---
PATIENT: KAMI WATTS LOC: EN U#:[id number] AGE/SX: 55/F ROOM: RE09/04/[address]: Dr. Kevin Richard MD : 1965 BED: DIS: 09/04/2020 SPEC #: [id number] RECD: 09/04/20 11:43 STATUS: DALLIN KENDALL #: [id number] DEEPALI: 09/04/20 06:[address]: Kevin Richard DEPT: SURGICAL PATHOLOGY RECD BY: Navneet Mendez ENTERED: 09/04/20 12:29 SP TYPE: EGD BIOPSY OT DR: Dr. Earnest Rodriguez MD Tissues: A - Duodenum, NOS B - Gastric mucous membrane C - Esophagus, NOS Procedures: Surgery Specimen Level IV HEADER OPERATION: EGD (MOD) PRE-OP DIAGNOSIS: Duodenitis, pancreatitis TISSUE SUBMITTED: A - Duodenum biopsy, B - Antrum biopsy for histo and H. pylori, C - Distal esophagus biopsy MICROSCOPIC DIAGNOSIS A. Duodenum, biopsy: Fragments of small intestine mucosa, no pathologic diagnosis. B. Antrum, biopsy: Moderate chronic gastritis. See microscopic description and comment. C. Distal esophagus, biopsy: A fragment of squamous mucosa with mild chronic inflammation. SJ:rg 09/05/20 COMMENT B. The results of immunohistochemistry for Helicobacter pylori will be reported separately ([id number]). MICROSCOPIC DESCRIPTION Slides are reviewed. B. The specimen shows fragments of gastric mucosa with chronic inflammatory cell infiltrates in the lamina propria consisting of lymphocytes and plasma cells, consistent with moderate chronic gastritis. GROSS DESCRIPTION A - Received in fixative is one container labeled with the patient's name and designated duodenal biopsy. The specimen consists of two irregular fragments of light miller soft tissue that in aggregate measure 0.6 x 0.5 x 0.1 cm. The specimen is totally submitted in one cassette. B - Received in fixative is one container labeled with the patient's name and designated antrum biopsy. The specimen consists of two irregular fragments of light miller soft tissue that in aggregate measure 0.7 x 0.5 x 0.1 cm. The specimen is totally submitted in one cassette. C - Received in fixative is one container labeled with the patient's name and designated distal esophagus. The specimen consists of one irregular fragment of light miller soft tissue that measures 0.8 x 0.5 x <0.1 cm. The specimen is totally submitted in one cassette. / AM:ruby 09/04/20 TC:3 CPT: 73011 x3
--- NOTE | 2020-09-04 06:30 | IMM_PTH ---
PATIENT: KAMI WATTS LOC: EN U#:[id number] AGE/SX: 55/F ROOM: RE09/04/[address]: Dr. Kevin Richard MD : 1965 BED: DIS: 09/04/2020 SPEC #: [id number] RECD: 09/04/20 12:34 STATUS: DALLIN KENDALL #: [id number] DEEPALI: 09/04/20 06:[address]: Kevin Richard DEPT: IMMUNOHISTOCHEMISTRY RECD BY: Arely Dunn ENTERED: 09/04/20 12:34 SP TYPE: IMMUNO OTHR DR: Dr. Earnest Rodriguez MD Tissues: B - Stomach, NOS Procedures: H Pylori (initial) PHYSICIAN & INSTITUTION [place] [id number] SPECIMEN INFORMATION: Tissue Source: B - Antrum biopsy Clinical Info: Duodenitis, pancreatitis Specimen Number: [id number] CPT code: 80224 METHODOLOGY: Deparaffinized sections of prefer/formalin-fixed tissue or PAP/DQ stained slides are incubated with monoclonal/polyclonal antibodies/oligonucleotide probes. Localization is made via biotin free immunoperoxidase method. Appropriate controls are performed and reacted as expected. Results on target cell population are indicated in the following table: RESULTS: ANTIBODY / CLONE RESULT Block B H Pylori (polyclonal) negative These tests were developed and their performance characteristics determined by [facility]. They may not have been cleared or approved by the U.[place]. Food and Drug Administration. The FDA has determined that such clearance or approval is not necessary. INTERPRETATION: B. Gastric antrum, biopsy: Negative for Helicobacter pylori organisms. SJ:ruby 09/06/20
[2020-09-04 07:27] LABS: Absolute Lymphocyte Count 1.19 X10^3/uL (0.83-4.51); Absolute Neutrophil Count 4.9 X10^3/uL (2.0-7.7); Basophil# 0.04 X10^3/uL; Basophil% 0.6 % (0-1); Eosinophil# 0.32 X10^3/uL; Eosinophils% 4.7 % (0-5); Hematocrit 44.4 % (37-47); Hemoglobin 14.5 g/dL (12.0-15.0); Lymphocyte # 1.19 X10^3/ul (4.0); Lymphocyte % 17.3 % (19-41); Mean Corp Hgb Conc 32.7 g/dL (32-36); Mean Corpuscular Hgb 32.8 pg (27.0-32.0); Mean Corpuscular Volume 100.5 fL (81-99); Mean Platelet Vol. 8.7 fl (6.2-12.0); Monocyte# 0.42 X10^3/uL; Monocyte% 6.1 % (0-10); NRBC Flagged by Analyzer 0 % (0-5); Neutrophil # 4.88 X10^3/uL (2.7-7.7); Neutrophil % 70.9 % (47-70); Platelet Count 356 K/mm3 (150-450); RBC Distribution Width CV 12.9 % (11.6-14.6); RBC Distribution Width SD 48.1 fl (35.1-43.9); Red Blood Count 4.42 M/mm3 (4.2-5.4); White Blood Count 6.9 K/mm3 (4.4-11.0)
[2020-09-04 07:43] LABS: ALB/GLOB Ratio 0.9 RATIO (0.9-2.4); AST(SGOT) 24 U/L (15-37); Alanine Aminotransfer ALT/SGPT 32 U/L (13-56); Albumin, Serum 2.7 g/dL (3.2-5.0); Alkaline Phosphatase 107 U/L (45-117); Anion Gap 1 (5-15); BUN 6 mg/dL (7-18); Calcium,Total 8.3 mg/dL (8.5-10.1); Chloride 108 mmol/L (98-107); EST Glomerular Filtration Rate 110 mL/min (>60); Est Glom Filt Rate - Afr Amer 133 mL/min (>60); Globulin 3.1 g/dL (2.2-4.2); Glucose 108 mg/dL (74-106); Lipase 418 U/L (73-393); Potassium 3.8 mmol/L (3.5-5.1); Protein, Total 5.8 g/dL (6.4-8.2); Sodium Level 140 mmol/L (136-145)
--- NOTE | 2020-09-04 10:35 | OP.EGD_ITS ---
Patient Name: Sharri Villarreal Procedure Date: 09/04/2020 6:36 AM Date of : 1965 Age: 55 Procedure: Upper GI endoscopy Indications: Epigastric abdominal pain Providers: Kevin Richard MD Medicines: Midazolam 4.5 mg IV, Meperidine 100 mg IV Complications: No immediate complications. Procedure: Pre-Anesthesia Assessment: - Prior to the procedure, a History and Physical was performed, and patient medications and allergies were reviewed. The patient's tolerance of previous anesthesia was also reviewed. The risks and benefits of the procedure and the sedation options and risks were discussed with the patient. All questions were answered, and informed consent was obtained. Prior Anticoagulants: The patient has taken no previous anticoagulant or antiplatelet agents. ASA Grade Assessment: II - A patient with mild systemic disease. After reviewing the risks and benefits, the patient was deemed in satisfactory condition to undergo the procedure. After obtaining informed consent, the endoscope was passed under direct vision. Throughout the procedure, the patient's blood pressure, pulse, and oxygen saturations were monitored continuously. The Endoscope was introduced through the mouth, and advanced to the second part of duodenum. The upper GI endoscopy was accomplished without difficulty. The patient tolerated the procedure well. Moderate Sedation: Moderate (conscious) sedation was personally administered by the endoscopist. The following parameters were monitored: oxygen saturation, heart rate, blood pressure, and response to care. Total physician intraservice time was 15 minutes. Scope In: 6:41:56 AM Scope Out: 6:47:57 AM Total Procedure Duration Time 0 hours 6 minutes 1 second Findings: A small hiatal hernia was present. The Z-line was variable and was found 40 cm from the incisors. Biopsies were taken with a cold forceps for histology. Diffuse moderate inflammation characterized by erythema and granularity was found in the entire examined stomach. Biopsies were taken with a cold forceps for histology. The examined duodenum was normal. Biopsies were taken with a cold forceps for histology. Impression: - Small hiatal hernia. - Z-line variable, 40 cm from the incisors. Biopsied distal esophagus - Gastritis. Biopsied antrum - Normal examined duodenum. Biopsied. Recommendation: - Discharge patient to home. - Resume previous diet. - Continue present medications. Procedure Code(s): --- Professional --- 20635, Esophagogastroduodenoscopy, flexible, transoral; with biopsy, single or multiple 25473, 59, Moderate sedation services provided by the same physician or other qualified health critical care educator performing the diagnostic or therapeutic service that the sedation supports, requiring the presence of an independent trained observer to assist in the monitoring of the patient's level of consciousness and physiological status; initial 15 minutes of intraservice time, patient age 5 years or older Diagnosis Code(s): --- Professional --- K44.9, Diaphragmatic hernia without obstruction or gangrene K22.8, Other specified diseases of esophagus K29.70, Gastritis, unspecified, without bleeding R10.13, Epigastric pain CPT copyright 2017 [employer]. All rights reserved. The codes documented in this report are preliminary and upon systems applications programming lead review may be revised to meet current compliance requirements. Kevin Richard MD 09/04/2020 10:34:26 AM This report has been signed electronically. Number of Addenda: 0 Note Initiated On: 09/04/2020 6:36 AM
== END 2020-09-04 09:23 | disposition home or self-care (01) ==
LOC: EN 05:18 → AC 05:19
PROVIDERS: PCP Family Medicine; Referring Provider Family Medicine; Visit Provider Surgery
PROC: (CPT 43239; principal; 2020-09-04 06:25)
DX: R10.13 Epigastric pain (principal); K29.70 Gastritis, unspecified, without bleeding; K22.8 Other specified diseases of esophagus; K44.9 Diaphragmatic hernia without obstruction or gangrene; F19.11 Other psychoactive substance abuse, in remission; F10.21 Alcohol dependence, in remission; F17.200 Nicotine dependence, unspecified, uncomplicated; K29.50 Unspecified chronic gastritis without bleeding
CPT/HCPCS: 43239; 80053; 83690; 85025; 88305; 88342; 99152; 99153; J7120

== ENCOUNTER 2021-05-11 08:14 | Inpatient (IN) | payer MEDICARE, MEDICAID, SELFPAY ==
[2021-05-11 08:15] VITALS: BP 148/106; PULSE 95; RESP 18; TEMP 35.8; O2SAT 95; BMI 34.4
--- NOTE | 2021-05-11 08:25 | EX.ED.DYSGE1 ---
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 Last drank late evening yesterday. Reports if she does not drink she goes into DT and withdrawal she feels shaky and jittery she has tried over the alcohol abuse and wants to be detoxed she denies a past history of any kind she has no complications or medical history related to the narcotic IV drug abuse, or alcohol abuse specifically no head neck chest or abdominal pain no cardiovascular disorders GI disorders no cirrhosis eating and drinking well bowel bladder habits unremarkable no medications except for Suboxone, last night when she was drinking she slipped out of her bed and struck her right breast she has a contusion to the right breast [facility] Medical History (Updated 05/11/21 @ 08:43 by Dora Johnson) Alcohol abuse Drug abuse Home Medications buprenorphine-naloxone [Suboxone] 2 strip PO DAILY 10/15/18 [History Last Taken 08/24/20 16:00 1] cyanocobalamin (vitamin B-12) 1,000 mcg PO DAILY@0800 08/24/20 [History Last Taken 08/23/20 18:00] duloxetine 30 mg PO DAILY 08/24/20 [History Last Taken 08/23/20 18:00] nicotine 21 mg TRANSDERM. DAILY #30 patch 08/27/20 [Rx Last Taken Unknown] ondansetron 4 mg PO Q6H PRN PRN #30 tab.rapdis 08/27/20 [Rx Last Taken Unknown] pantoprazole 40 mg PO BID #60 tab 08/27/20 [Rx Last Taken Unknown] Allergy/AdvReac Type Severity Reaction Status Date / Time No Known Allergies Allergy Verified 05/11/21 08:15 Social History Smoking Status: Current every day smoker tobacco type: cigarettes ROS ROS ED ROS Narrative Right breast contusion general sense of jitteriness Constitutional Constitutional ED: Reports subjective, sweats and other; Denies chills, fever(s) or weight loss Eyes Eyes: Denies blurry vision or change in vision ENT ENT ED: Denies ear pain Cardiovascular Cardiovascular: Denies chest pain or palpitations Respiratory/Chest Respiratory/Chest: Denies dyspnea Gastrointestinal Gastrointestinal: Denies abdominal pain, nausea or vomiting Genitourinary Genitourinary ED: Denies dysuria or hematuria Musculoskeletal Musculoskeletal: Denies arthralgias or myalgias Integumentary Reports rash; Denies abscess Neurologic Neurologic: Denies weakness Psychiatric Psychiatric: Denies anxiety or depression Endocrine Endocrinology: Denies polydipsia or polyuria Allergic/Immunologic Allergic/Immunologic ED: Denies urticaria EXAM Physical Exam Narrative Exam Narrative: Her vital signs are unremarkable she appears slightly tremulous she is awake and alert no confusion no hallucinations, head neck chest unremarkable she has a contusion to the right breast at around the 3 to 6 o'clock position there is no bleeding no other complaints the chest wall is not tender the abdomen soft awake alert moving all 4 see below neurologically normal Const Vital Signs: 05/11/21 08:15 Temperature 96.5 F L Temperature Source Temporal Pulse Rate 95 Respiratory Rate 18 Blood Pressure 148/106 H Blood Pressure Mean 120 Pulse Ox 95 Oxygen Delivery Method Room Air Positive well developed General Appearance ED: well developed HEENT Reports normocephalic Negative for trauma Eyes EOMs intact bilaterally Neck supple Chest Wall inspection of chest normal Resp normal respiratory effort Cardio regular rate GI non-tender and non-distended Back/Spine Back/Spine Narrative: unremarkable Extremity normal to inspection Neuro oriented x3 and CN's II-XII intact bilaterally Sensorium / Orientation: alert Psych mental status grossly normal Skin no rashes or lesions noted MDM MDM MDM Narrative Medical decision making narrative: Given all of the above ED screen evaluation Toradol for the pain will discuss with hospitalist admission process Admit stable Final impression alcohol abuse requiring inpatient management, history of IV narcotic abuse currently on Suboxone, right breast contusion Lab Data Labs: Laboratory Results - last 24 hr 05/11/21 05/11/21 05/11/21 08:40 08:40 08:40 WBC Cancelled Corrected WBC Cancelled RBC Cancelled Hgb Cancelled Hct Cancelled MCV Cancelled MCH Cancelled MCHC Cancelled RDW Std Deviation Cancelled RDW Coeff of Mamta Cancelled Plt Count Cancelled MPV Cancelled Immature Gran % (Auto) Cancelled Neut % (Auto) Cancelled Lymph % (Auto) Cancelled [place] % (Auto) Cancelled Eos % (Auto) Cancelled Baso % (Auto) Cancelled Absolute Neuts (auto) Cancelled Absolute Lymphs (auto) Cancelled Total Counted Cancelled Neutrophils % (Manual) Cancelled Band Neutrophils % Cancelled Lymphocytes % (Manual) Cancelled Monocytes % (Manual) Cancelled Eosinophils % (Manual) Cancelled Basophils % (Manual) Cancelled Metamyelocytes % Cancelled Myelocytes % Cancelled Promyelocytes % Cancelled Blast Cells % Cancelled Plasma Cell % (Manual) Cancelled Other Cells % Cancelled Nucleated RBC % Cancelled Nucleated RBCs/100 WBC Cancelled Differential Comment Cancelled Diff Path Review Cancelled Hypersegmented Neuts Cancelled Atypical Lymphocytes Cancelled Reactive Lymphocytes Cancelled Smudge Cells Cancelled Toxic Granulation Cancelled Toxic Vacuolation Cancelled Dohle Bodies Cancelled Caleb Rods Cancelled Platelet Estimate Cancelled Plt Morphology Comment Cancelled RBC Morphology Cancelled Polychromasia Cancelled Hypochromasia Cancelled Poikilocytosis Cancelled Basophilic Stippling Cancelled Anisocytosis Cancelled Microcytosis Cancelled Macrocytosis Cancelled Spherocytes Cancelled Sickle Cells Cancelled Target Cells Cancelled Tear Drop Cells Cancelled Ovalocytes Cancelled Stomatocytes Cancelled [place] Bodies Cancelled Caulfield Cells Cancelled Bite Cells Cancelled Crenated Cell Cancelled Acanthocytes (Spur) Cancelled Rouleaux Cancelled Schistocytes Cancelled Sodium 137 Potassium 4.0 Chloride 103 Carbon Dioxide 27.0 Anion Gap 7 BUN 6 L Creatinine 0.64 Estim Creat Clear Calc 85.77 Est GFR (MDRD) Af Amer 124 Est GFR (MDRD) Non-Af 103 BUN/Creatinine Ratio 9.4 L Glucose 123 H Calcium 9.1 Serum , Qual Urine Opiates Screen Urine Methadone Screen Ur Barbiturates Screen Ur Phencyclidine Scrn Ur Amphetamines Screen U Methamphetamin-MDMA U Benzodiazepines Scrn Urine Cocaine Screen U Cannabinoids Screen Ur Drug Screen Comment Ethyl Alcohol < 3.0 05/11/21 05/11/21 05/11/21 08:40 08:43 10:14 WBC 6.3 Corrected WBC RBC 4.19 L Hgb 14.4 Hct 42.5 MCV 101.4 H MCH 34.4 H MCHC 33.9 RDW Std Deviation 48.7 H RDW Coeff of Mamta 13.0 Plt Count 227 MPV 9.1 Immature Gran % (Auto) 0.500 Neut % (Auto) 75.3 H Lymph % (Auto) 15.2 L [place] % (Auto) 7.3 Eos % (Auto) 1.1 Baso % (Auto) 0.6 Absolute Neuts (auto) 4.8 Absolute Lymphs (auto) 0.96 Total Counted Neutrophils % (Manual) Band Neutrophils % Lymphocytes % (Manual) Monocytes % (Manual) Eosinophils % (Manual) Basophils % (Manual) Metamyelocytes % Myelocytes % Promyelocytes % Blast Cells % Plasma Cell % (Manual) Other Cells % Nucleated RBC % 0 Nucleated RBCs/100 WBC Differential Comment Diff Path Review Hypersegmented Neuts Atypical Lymphocytes Reactive Lymphocytes Smudge Cells Toxic Granulation Toxic Vacuolation Dohle Bodies Caleb Rods Platelet Estimate Plt Morphology Comment RBC Morphology Polychromasia Hypochromasia Poikilocytosis Basophilic Stippling Anisocytosis Microcytosis Macrocytosis Spherocytes Sickle Cells Target Cells Tear Drop Cells Ovalocytes Stomatocytes [place] Bodies [place] Cells Bite Cells Crenated Cell Acanthocytes (Spur) Rouleaux Schistocytes Sodium Potassium Chloride Carbon Dioxide Anion Gap BUN Creatinine Estim Creat Clear Calc Est GFR (MDRD) Af Amer Est GFR (MDRD) Non-Af BUN/Creatinine Ratio Glucose Calcium Serum , Qual NEGATIVE Urine Opiates Screen NEGATIVE Urine Methadone Screen NEGATIVE Ur Barbiturates Screen NEGATIVE Ur Phencyclidine Scrn NEGATIVE Ur Amphetamines Screen NEGATIVE U Methamphetamin-MDMA NEGATIVE U Benzodiazepines Scrn NEGATIVE Urine Cocaine Screen NEGATIVE U Cannabinoids Screen NEGATIVE Ur Drug Screen Comment Ethyl Alcohol Discharge Plan Triage Chief Complaint: Substance Abuse Other Complaint: Fall ED Provider: Rajeev Villarreal Dx/Rx/DC Orders Prescriptions: No Action buprenorphine-naloxone [Suboxone] 1 EACH Film 2 strip PO DAILY RF: 0 cyanocobalamin (vitamin B-12) 500 MCG tablet 1,000 mcg PO DAILY@0800 RF: 0 duloxetine 30 MG capsule 30 mg PO DAILY RF: 0 nicotine 21 MG patch 21 mg TRANSDERM. DAILY Qty: 30 RF: 0 pantoprazole 40 MG tablet 40 mg PO BID Qty: 60 RF: 0 ondansetron 4 MG tablet,disintegrating 4 mg PO Q6H PRN PRN (Reason: Nausea/Vomiting) Qty: 30 RF: 0 Primary Care Provider: Earnest Rodriguez
--- NOTE | 2021-05-11 08:28 | RAD_ITS ---
HISTORY: Fall right breast pain. TECHNIQUE: XR Chest 2 Views. # of images incl. paperwork: 2. COMPARISON: 05/25/2015. FINDINGS: CARDIOMEDIASTINAL STRUCTURES: Cardiac silhouette not enlarged. Mediastinal contour unremarkable. LUNGS: Radiographically clear. PLEURA: No pleural effusion or pneumothorax. OSSEOUS STRUCTURES: Degenerative change. RAD/Chest PA and Lateral IMPRESSION: No radiographic evidence of acute cardiopulmonary disease. at 1304 Reported and signed by: Isela Brenner MD Electronically Signed: Isela Brenner MD at 13:03 EDT Tel , Service support ,
[2021-05-11] MEDS: Ketorolac 30 MG/ML Syringe IV (09:02)
[2021-05-11] MEDS: LORazepam 2 MG/ML Syringe IV (09:02)
[2021-05-11 09:05] LABS: Internal QC Validated? YES +Cl - CLEAR BKGD; Pregnancy, Serum, hCG Quali. NEGATIVE Negative
[2021-05-11 09:12] LABS: Anion Gap 7 (5-15); BUN 6 mg/dL (7-18); BUN/Creat Ratio 9.4 RATIO (10-20); Calcium,Total 9.1 mg/dL (8.5-10.1); Chloride 103 mmol/L (98-107); Creatinine, Serum 0.64 mg/dL (0.55-1.02); EST Glomerular Filtration Rate 103 mL/min (>60); Est Glom Filt Rate - Afr Amer 124 mL/min (>60); Estimated Creatinine Clearance 85.77 ml/min; Glucose 123 mg/dL (74-106); Sodium Level 137 mmol/L (136-145)
[2021-05-11 09:14] LABS: Amphetamine Urine VISTA NEGATIVE (<1000 ng/mL); Barbiturate Urine VISTA NEGATIVE (< 200 ng/mL); Benzodiazepine Urine VISTA NEGATIVE (< 200 ng/mL); Cocaine Urine VISTA NEGATIVE (< 300 ng/mL); Ecstacy Urine VISTA NEGATIVE (< 500 ng/mL); Methadone Urine VISTA NEGATIVE (< 300 ng/mL); PCP Urine VISTA NEGATIVE (< 25 ng/mL); THC Urine VISTA NEGATIVE (< 50 ng/mL); Vista UDS pH Range 8
[2021-05-11 09:54] LABS: Alcohol, Blood (Medical)-Serum < 3.0 mg/dL
[2021-05-11 10:18] LABS: Absolute Lymphocyte Count 0.96 X10^3/uL (0.83-4.51); Absolute Neutrophil Count 4.8 X10^3/uL (2.0-7.7); Basophil# 0.04 X10^3/uL; Basophil% 0.6 % (0-1); Eosinophil# 0.07 X10^3/uL; Eosinophils% 1.1 % (0-5); Hematocrit 42.5 % (37-47); Hemoglobin 14.4 g/dL (12.0-15.0); Lymphocyte # 0.96 X10^3/ul (0.83-4.51); Lymphocyte % 15.2 % (19-41); Mean Corp Hgb Conc 33.9 g/dL (32-36); Mean Corpuscular Hgb 34.4 pg (27.0-32.0); Mean Corpuscular Volume 101.4 fL (81-99); Mean Platelet Vol. 9.1 fl (6.2-12.0); Monocyte# 0.46 X10^3/uL; Monocyte% 7.3 % (0-10); NRBC Flagged by Analyzer 0 % (0-5); Neutrophil # 4.75 X10^3/uL (2.7-7.7); Neutrophil % 75.3 % (47-70); Platelet Count 227 K/mm3 (150-450); RBC Distribution Width SD 48.7 fl (35.1-43.9); Red Blood Count 4.19 M/mm3 (4.2-5.4); White Blood Count 6.3 K/mm3 (4.4-11.0)
--- NOTE | 2021-05-11 10:44 | PCM.HP.STD ---
HPI - General General Date of Admission: 05/11/21 Date of Service: 05/11/21 Chief Complaint: Alcohol intoxication HPI Narrative KAMI WATTS, is a 55 F with past medical history is again for alcohol dependence, previous history of opioid dependence for which she has remained in remission and is currently on Suboxone who presented with alcohol intoxication. Patient admitted to drinking daily. Patient presented to the emergency department wanting to detox. Her last drink was the night prior to her being admitted. On further questioning patient denied any hallucinations denied any anxiety no irritability. She did admit to falling the day prior to coming in bruising her right breast. [facility] Medical History Alcohol abuse Drug abuse Home Medications buprenorphine-naloxone [Suboxone] 2 strip PO DAILY 10/15/18 [History Last Taken 08/24/20 16:00 1] cyanocobalamin (vitamin B-12) 1,000 mcg PO DAILY@0800 08/24/20 [History Last Taken 08/23/20 18:00] duloxetine 30 mg PO DAILY 08/24/20 [History Last Taken 08/23/20 18:00] nicotine 21 mg TRANSDERM. DAILY #30 patch 08/27/20 [Rx Last Taken Unknown] ondansetron 4 mg PO Q6H PRN PRN #30 tab.rapdis 08/27/20 [Rx Last Taken Unknown] pantoprazole 40 mg PO BID #60 tab 08/27/20 [Rx Last Taken Unknown] Allergy/AdvReac Type Severity Reaction Status Date / Time No Known Allergies Allergy Verified 05/11/21 08:15 no significant family history no surgical history Social History Smoking Status: Current every day smoker tobacco type: cigarettes ROS ROS Narrative GENERAL: denies fever, chills, HEENT: denies headache, sinus congestion, RESPIRATORY: denies cough, sputum production, CARDIAC: denies chest pain, palpitations, GASTROINTESTINAL: denies abdominal pain, GENITOURINARY: denies dysuria, urgency, frequency, EXTREMITY: denies swelling MUSCULOSKELETAL: denies current joint pain or tenderness NEUROLOGIC: denies focal numbness, weakness, tingling HEMATOLOGIC: denies easy bruising and/or hemorrhage INTEGUMENT: denies rashes PSYCHIATRIC: denies suicidal or homicidal ideation Vital Signs Vital Signs Vital Signs: 05/11/21 08:15 Temperature 96.5 F L Temperature Source Temporal Pulse Rate 95 Respiratory Rate 18 Blood Pressure 148/106 H Blood Pressure Mean 120 Pulse Ox 95 Oxygen Delivery Method Room Air Weight Weight: 91.172 kg Body Mass Index (BMI) 34.4 Physical Exam Narrative GENERAL: Lethargic but arousable HEENT: Atraumatic; EYES; Anicteric, Normal Conjunctiva NECK; supple, normal thyroid, RESPIRATORY: Diminished to auscultation CARDIOVASCULAR: Regular S1 S2, GI: soft, normoactive bowel sounds, : No Renal angle tenderness; EXTREMITIES: No edema, no clubbing, MUSCULOSKELETAL: no muscle waisting NEURO: Awake; no lateralizing signs. SKIN: No Rash PSYCH; Flat affect Results Lab / Micro Data Result Diagrams: 05/11/21 10:14 05/11/21 08:40 Labs: Laboratory Results - last 24 hr 05/11/21 05/11/21 05/11/21 08:40 08:40 08:40 WBC Cancelled Corrected WBC Cancelled RBC Cancelled Hgb Cancelled Hct Cancelled MCV Cancelled MCH Cancelled MCHC Cancelled RDW Std Deviation Cancelled RDW Coeff of Mamta Cancelled Plt Count Cancelled MPV Cancelled Immature Gran % (Auto) Cancelled Neut % (Auto) Cancelled Lymph % (Auto) Cancelled [place] % (Auto) Cancelled Eos % (Auto) Cancelled Baso % (Auto) Cancelled Absolute Neuts (auto) Cancelled Absolute Lymphs (auto) Cancelled Total Counted Cancelled Neutrophils % (Manual) Cancelled Band Neutrophils % Cancelled Lymphocytes % (Manual) Cancelled Monocytes % (Manual) Cancelled Eosinophils % (Manual) Cancelled Basophils % (Manual) Cancelled Metamyelocytes % Cancelled Myelocytes % Cancelled Promyelocytes % Cancelled Blast Cells % Cancelled Plasma Cell % (Manual) Cancelled Other Cells % Cancelled Nucleated RBC % Cancelled Nucleated RBCs/100 WBC Cancelled Differential Comment Cancelled Diff Path Review Cancelled Hypersegmented Neuts Cancelled Atypical Lymphocytes Cancelled Reactive Lymphocytes Cancelled Smudge Cells Cancelled Toxic Granulation Cancelled Toxic Vacuolation Cancelled Dohle Bodies Cancelled Caleb Rods Cancelled Platelet Estimate Cancelled Plt Morphology Comment Cancelled RBC Morphology Cancelled Polychromasia Cancelled Hypochromasia Cancelled Poikilocytosis Cancelled Basophilic Stippling Cancelled Anisocytosis Cancelled Microcytosis Cancelled Macrocytosis Cancelled Spherocytes Cancelled Sickle Cells Cancelled Target Cells Cancelled Tear Drop Cells Cancelled Ovalocytes Cancelled Stomatocytes Cancelled Ruiz-Hamilton Bodies Cancelled [place] Cells Cancelled Bite Cells Cancelled Crenated Cell Cancelled Acanthocytes (Spur) Cancelled Rouleaux Cancelled Schistocytes Cancelled Sodium 137 Potassium 4.0 Chloride 103 Carbon Dioxide 27.0 Anion Gap 7 BUN 6 L Creatinine 0.64 Estim Creat Clear Calc 85.77 Est GFR (MDRD) Af Amer 124 Est GFR (MDRD) Non-Af 103 BUN/Creatinine Ratio 9.4 L Glucose 123 H Calcium 9.1 Serum , Qual Urine Opiates Screen Urine Methadone Screen Ur Barbiturates Screen Ur Phencyclidine Scrn Ur Amphetamines Screen U Methamphetamin-MDMA U Benzodiazepines Scrn Urine Cocaine Screen U Cannabinoids Screen Ur Drug Screen Comment Ethyl Alcohol < 3.0 05/11/21 05/11/21 05/11/21 08:40 08:43 10:14 WBC 6.3 Corrected WBC RBC 4.19 L Hgb 14.4 Hct 42.5 MCV 101.4 H MCH 34.4 H MCHC 33.9 RDW Std Deviation 48.7 H RDW Coeff of Mamta 13.0 Plt Count 227 MPV 9.1 Immature Gran % (Auto) 0.500 Neut % (Auto) 75.3 H Lymph % (Auto) 15.2 L [place] % (Auto) 7.3 Eos % (Auto) 1.1 Baso % (Auto) 0.6 Absolute Neuts (auto) 4.8 Absolute Lymphs (auto) 0.96 Total Counted Neutrophils % (Manual) Band Neutrophils % Lymphocytes % (Manual) Monocytes % (Manual) Eosinophils % (Manual) Basophils % (Manual) Metamyelocytes % Myelocytes % Promyelocytes % Blast Cells % Plasma Cell % (Manual) Other Cells % Nucleated RBC % 0 Nucleated RBCs/100 WBC Differential Comment Diff Path Review Hypersegmented Neuts Atypical Lymphocytes Reactive Lymphocytes Smudge Cells Toxic Granulation Toxic Vacuolation Dohle Bodies Caleb Rods Platelet Estimate Plt Morphology Comment RBC Morphology Polychromasia Hypochromasia Poikilocytosis Basophilic Stippling Anisocytosis Microcytosis Macrocytosis Spherocytes Sickle Cells Target Cells Tear Drop Cells Ovalocytes Stomatocytes Ruiz-Hamilton Bodies [place]bra Cells Bite Cells Crenated Cell Acanthocytes (Spur) Rouleaux Schistocytes Sodium Potassium Chloride Carbon Dioxide Anion Gap BUN Creatinine Estim Creat Clear Calc Est GFR (MDRD) Af Amer Est GFR (MDRD) Non-Af BUN/Creatinine Ratio Glucose Calcium Serum , Qual NEGATIVE Urine Opiates Screen NEGATIVE Urine Methadone Screen NEGATIVE Ur Barbiturates Screen NEGATIVE Ur Phencyclidine Scrn NEGATIVE Ur Amphetamines Screen NEGATIVE U Methamphetamin-MDMA NEGATIVE U Benzodiazepines Scrn NEGATIVE Urine Cocaine Screen NEGATIVE U Cannabinoids Screen NEGATIVE Ur Drug Screen Comment Ethyl Alcohol Assessment & Plan Assessment/Plan (1) Alcohol withdrawal: PLAN: Patient is a 55-year-old lady with history of chronic alcohol dependence presenting with acute alcohol withdrawal 1. Acute alcohol withdrawal patient has been admitted to regular nursing floor currently being managed with phenobarb taper for medical stabilization 2. Previous history of opioid dependence Patient has remained in remission for over a year currently on Suboxone 3. History of duodenitis ?Patient is on PPI 4. Tobacco dependence - Counseled on cessation, offered nicotine patch for tobacco cravings 5. DVT prophylaxis ?Lovenox Charges/Coding Visit Charges Inpatient E&M: 79265 Subs Hosp L2
[2021-05-11 11:00] VITALS: BP 139/99; PULSE 89; RESP 14; TEMP 36.1; O2SAT 96
[2021-05-11 12:16] VITALS: BMI 35.6
[2021-05-11 12:28] VITALS: BP 151/99; PULSE 67; RESP 18; TEMP 36.5; O2SAT 94
[2021-05-11] MEDS: Lactated Ringers 1,000 ML 125 ML IV (13:27)
[2021-05-11] MEDS: Phenobarbital 32.4 MG Tablet 64.8 MG PO ×3 (13:28→20:07)
[2021-05-11] MEDS: 0.9% Saline Lock 10 ML Syringe IV (13:28)
[2021-05-11 16:29] VITALS: BP 151/90; PULSE 77; RESP 16; TEMP 37.1; O2SAT 97
[2021-05-11] MEDS: Gabapentin 300 MG Capsule PO (16:34)
[2021-05-11] MEDS: Dicyclomine 10 MG Capsule 20 MG PO (16:34)
[2021-05-11] MEDS: hydrOXYzine PAM 25 MG Capsule 50 MG PO (16:34)
[2021-05-11] MEDS: amLODIPine 10 MG Tablet PO (17:04)
[2021-05-11 19:56] VITALS: BP 136/106; PULSE 81; RESP 16; TEMP 36.9; O2SAT 97
[2021-05-12 00:28] VITALS: BP 128/88; PULSE 84; RESP 16; TEMP 36.9; O2SAT 95
[2021-05-12] MEDS: Ibuprofen 600 MG Tablet PO ×2 (00:35→21:17)
[2021-05-12] MEDS: Phenobarbital 32.4 MG Tablet 64.8 MG PO ×6 (00:35→21:17)
[2021-05-12] MEDS: Ondansetron 8 MG Tablet PO ×2 (00:35→21:17)
[2021-05-12 04:43] VITALS: BP 98/63; PULSE 69; RESP 16; O2SAT 92
--- NOTE | 2021-05-12 07:23 | PN.HOSP_ITS ---
Subjective Subjective Patient is a 55-year-old lady with history of chronic alcohol dependence presenting with acute alcohol withdrawal Objective Data Objective Data Vital Signs: Vital Signs Temp Pulse Resp BP Pulse Ox 98.5 F 69 16 98/63 92 05/12/21 00:28 05/12/21 04:43 05/12/21 04:43 05/12/21 04:43 05/12/21 04:43 Oxygen Delivery Method Room Air Weight: 94.3 kg Body Mass Index (BMI) 35.6 Intake & Output: Intake and Output for Last 24 Hours 05/10/21 05/11/21 05/12/21 23:59 23:59 23:59 Intake Total 1222 / 1722 700 / 700 Output Total 300 / 300 Balance 1222 / 1722 400 / 400 Lab / Micro Data Result Diagrams: 05/11/21 10:14 05/11/21 08:40 Labs: Laboratory Results - last 24 hr 05/11/21 05/11/21 05/11/21 08:40 08:40 08:40 WBC Cancelled Corrected WBC Cancelled RBC Cancelled Hgb Cancelled Hct Cancelled MCV Cancelled MCH Cancelled MCHC Cancelled RDW Std Deviation Cancelled RDW Coeff of Mamta Cancelled Plt Count Cancelled MPV Cancelled Immature Gran % (Auto) Cancelled Neut % (Auto) Cancelled Lymph % (Auto) Cancelled [place] % (Auto) Cancelled Eos % (Auto) Cancelled Baso % (Auto) Cancelled Absolute Neuts (auto) Cancelled Absolute Lymphs (auto) Cancelled Total Counted Cancelled Neutrophils % (Manual) Cancelled Band Neutrophils % Cancelled Lymphocytes % (Manual) Cancelled Monocytes % (Manual) Cancelled Eosinophils % (Manual) Cancelled Basophils % (Manual) Cancelled Metamyelocytes % Cancelled Myelocytes % Cancelled Promyelocytes % Cancelled Blast Cells % Cancelled Plasma Cell % (Manual) Cancelled Other Cells % Cancelled Nucleated RBC % Cancelled Nucleated RBCs/100 WBC Cancelled Differential Comment Cancelled Diff Path Review Cancelled Hypersegmented Neuts Cancelled Atypical Lymphocytes Cancelled Reactive Lymphocytes Cancelled Smudge Cells Cancelled Toxic Granulation Cancelled Toxic Vacuolation Cancelled Dohle Bodies Cancelled Caleb Rods Cancelled Platelet Estimate Cancelled Plt Morphology Comment Cancelled RBC Morphology Cancelled Polychromasia Cancelled Hypochromasia Cancelled Poikilocytosis Cancelled Basophilic Stippling Cancelled Anisocytosis Cancelled Microcytosis Cancelled Macrocytosis Cancelled Spherocytes Cancelled Sickle Cells Cancelled Target Cells Cancelled Tear Drop Cells Cancelled Ovalocytes Cancelled Stomatocytes Cancelled Ruiz-[place]adley Bodies Cancelled [place] Cells Cancelled Bite Cells Cancelled Crenated Cell Cancelled Acanthocytes (Spur) Cancelled Rouleaux Cancelled Schistocytes Cancelled Sodium 137 Potassium 4.0 Chloride 103 Carbon Dioxide 27.0 Anion Gap 7 BUN 6 L Creatinine 0.64 Estim Creat Clear Calc 85.77 Est GFR (MDRD) Af Amer 124 Est GFR (MDRD) Non-Af 103 BUN/Creatinine Ratio 9.4 L Glucose 123 H Calcium 9.1 Serum , Qual Urine Opiates Screen Urine Methadone Screen Ur Barbiturates Screen Ur Phencyclidine Scrn Ur Amphetamines Screen U Methamphetamin-MDMA U Benzodiazepines Scrn Urine Cocaine Screen U Cannabinoids Screen Ur Drug Screen Comment Ethyl Alcohol < 3.0 05/11/21 05/11/21 05/11/21 08:40 08:43 10:14 WBC 6.3 Corrected WBC RBC 4.19 L Hgb 14.4 Hct 42.5 MCV 101.4 H MCH 34.4 H MCHC 33.9 RDW Std Deviation 48.7 H RDW Coeff of Mamta 13.0 Plt Count 227 MPV 9.1 Immature Gran % (Auto) 0.500 Neut % (Auto) 75.3 H Lymph % (Auto) 15.2 L [place] % (Auto) 7.3 Eos % (Auto) 1.1 Baso % (Auto) 0.6 Absolute Neuts (auto) 4.8 Absolute Lymphs (auto) 0.96 Total Counted Neutrophils % (Manual) Band Neutrophils % Lymphocytes % (Manual) Monocytes % (Manual) Eosinophils % (Manual) Basophils % (Manual) Metamyelocytes % Myelocytes % Promyelocytes % Blast Cells % Plasma Cell % (Manual) Other Cells % Nucleated RBC % 0 Nucleated RBCs/100 WBC Differential Comment Diff Path Review Hypersegmented Neuts Atypical Lymphocytes Reactive Lymphocytes Smudge Cells Toxic Granulation Toxic Vacuolation Dohle Bodies Caleb Rods Platelet Estimate Plt Morphology Comment RBC Morphology Polychromasia Hypochromasia Poikilocytosis Basophilic Stippling Anisocytosis Microcytosis Macrocytosis Spherocytes Sickle Cells Target Cells Tear Drop Cells Ovalocytes Stomatocytes Ruiz-Wadley Bodies [place] Cells Bite Cells Crenated Cell Acanthocytes (Spur) Rouleaux Schistocytes Sodium Potassium Chloride Carbon Dioxide Anion Gap BUN Creatinine Estim Creat Clear Calc Est GFR (MDRD) Af Amer Est GFR (MDRD) Non-Af BUN/Creatinine Ratio Glucose Calcium Serum , Qual NEGATIVE Urine Opiates Screen NEGATIVE Urine Methadone Screen NEGATIVE Ur Barbiturates Screen NEGATIVE Ur Phencyclidine Scrn NEGATIVE Ur Amphetamines Screen NEGATIVE U Methamphetamin-MDMA NEGATIVE U Benzodiazepines Scrn NEGATIVE Urine Cocaine Screen NEGATIVE U Cannabinoids Screen NEGATIVE Ur Drug Screen Comment Ethyl Alcohol Radiography Diagnostic Testing: Radiology Impression Chest X-Ray 05/11/21 08:28 IMPRESSION: No radiographic evidence of acute cardiopulmonary disease. at 1304 Reported and signed by: Isela Brenner MD Electronically Signed: Isela Brenner MD at 13:03 EDT Tel , Service support , Physical Exam Narrative GENERAL: Cooperative HEENT: Atraumatic; EYES; Anicteric, Normal Conjunctiva NECK; supple, normal thyroid, RESPIRATORY: Diminished to auscultation CARDIOVASCULAR: Regular S1 S2, GI: soft, normoactive bowel sounds, : No Renal angle tenderness; EXTREMITIES: No edema, no clubbing, MUSCULOSKELETAL: no muscle waisting NEURO: Awake; no lateralizing signs. SKIN: No Rash PSYCH; Flat affect Assessment & Plan Assessment/Plan (1) Alcohol withdrawal: PLAN: Patient is a 55-year-old lady with history of chronic alcohol dependence presenting with acute alcohol withdrawal 1. Acute alcohol withdrawal patient has been admitted to regular nursing floor currently being managed with phenobarb taper for medical stabilization ?05/12/2021; patient has tolerated phenobarb taper well so far 2. Previous history of opioid dependence Patient has remained in remission for over a year currently on Suboxone -05/12/2021; hospital does not carry Suboxone substituted with Subutex 3. History of duodenitis ?Patient is on PPI 4. Tobacco dependence - Counseled on cessation, offered nicotine patch for tobacco cravings 5. DVT prophylaxis ?Lovenox Charges/Coding Visit Charges Inpatient E&M: 66319 Subs Hosp L2
[2021-05-12] MEDS: Folic Acid 1 MG Tablet PO (08:00)
[2021-05-12] MEDS: Thiamine Hydrochloride 100 MG Tablet PO (08:00)
[2021-05-12 08:13] VITALS: BP 138/88; PULSE 99; RESP 18; TEMP 36.9; O2SAT 95
[2021-05-12] MEDS: Enoxaparin 40 MG/0.4 ML Syringe SC (09:52)
[2021-05-12] MEDS: Buprenorphine HCl 2 MG TAB.SUBL SL ×2 (09:52→17:30)
[2021-05-12] MEDS: amLODIPine 10 MG Tablet PO (09:52)
[2021-05-12 14:12] VITALS: BP 146/100; PULSE 95; RESP 18; TEMP 37.2; O2SAT 92
[2021-05-12 21:09] VITALS: BP 145/92; PULSE 99; RESP 18; TEMP 37.1; O2SAT 99
[2021-05-12] MEDS: cloNIDine HCl 0.1 MG Tablet PO (21:17)
[2021-05-12] MEDS: traZODone 100 MG Tablet PO (23:39)
[2021-05-13] MEDS: Buprenorphine HCl 2 MG TAB.SUBL SL ×3 (01:23→17:28)
[2021-05-13] MEDS: Phenobarbital 32.4 MG Tablet 64.8 MG PO ×6 (01:23→21:16)
[2021-05-13 03:07] VITALS: BP 104/61; PULSE 66; RESP 18; TEMP 36.4; O2SAT 92
[2021-05-13 09:05] VITALS: BP 130/86; PULSE 77; RESP 18; TEMP 36.4; O2SAT 100
[2021-05-13] MEDS: Enoxaparin 40 MG/0.4 ML Syringe SC (09:08)
[2021-05-13] MEDS: Folic Acid 1 MG Tablet PO (09:10)
[2021-05-13] MEDS: amLODIPine 10 MG Tablet PO (09:12)
[2021-05-13] MEDS: Thiamine Hydrochloride 100 MG Tablet PO (09:12)
--- NOTE | 2021-05-13 10:02 | ADDICTION ---
This fiction and nonfiction prose writer met with PT to conduct ASAM, MSE, AUDIT assessments and to plan for d/c. PT A+Ox4 and participated appropriately. All assessments completed, faxed to [facility] and placed in PT's chart. PT to f/u with [facility] for MAT and counseling. She reports that she has an appointment for counseling on 05/15/21. PT to d/c home. No transportation needs identified.
--- NOTE | 2021-05-13 10:39 | PCM.PN.HOSP ---
Subjective Subjective Patient was seen and examined. No new complaint. Her CIWA scores remain low. Objective Data Objective Data Vital Signs: Vital Signs Temp Pulse Resp BP Pulse Ox 97.6 F L 77 18 130/86 H 100 05/13/21 09:05 05/13/21 09:05 05/13/21 09:05 05/13/21 09:05 05/13/21 09:05 Oxygen Delivery Method Room Air Weight: 94.3 kg Body Mass Index (BMI) 35.6 Intake & Output: Intake and Output for Last 24 Hours 05/11/21 05/12/21 05/13/21 23:59 23:59 23:59 Intake Total 1222 / 1722 1300 / 1300 800 / 800 Output Total 850 / 850 700 / 700 Balance 1222 / 1722 450 / 450 100 / 100 Lab / Micro Data Result Diagrams: 05/11/21 10:14 05/11/21 08:40 Physical Exam Narrative Physical exam: General: Alert, Oriented x3, Cooperative, No apparent distress, Well developed HEENT: Atraumatic Oral: Moist Mucosa Neck: Supple Lungs: Clear to auscultation Cardiovascular: HS I+II, regular, no murmurs Abdomen: Bowel Sounds Present, Soft, Non Tender Extremities: No edema Skin: No rashes, No breakdown Neurological: Grossly intact Psych/Mental Status: Appropriate Assessment & Plan Assessment/Plan (1) Alcohol withdrawal: QUALIFIERS: Complication of substance-induced condition: uncomplicated Qualified Code(s): F10.230 - Alcohol dependence with withdrawal, uncomplicated (2) Duodenitis: PLAN: 1. Acute alcohol withdrawal, improving, continue on phenobarbital protocol Patient follow-up with 180 in the outpatient 2. Nicotine dependence, on replacement 4. H/o opioid dependence, needs to follow-up with 180 in the outpatient Charges/Coding Visit Charges Inpatient E&M: 70566 Subs Hosp L2
[2021-05-13 14:44] VITALS: BP 120/76; PULSE 64; RESP 18; TEMP 36.7; O2SAT 97
[2021-05-13 21:14] VITALS: BP 154/101; PULSE 74; RESP 18; TEMP 36.8; O2SAT 94
[2021-05-13] MEDS: traZODone 100 MG Tablet PO (21:16)
[2021-05-13] MEDS: Ibuprofen 600 MG Tablet PO (21:18)
[2021-05-14 02:34] VITALS: BP 106/67; PULSE 65; RESP 18; TEMP 36.8; O2SAT 92
[2021-05-14] MEDS: Buprenorphine HCl 2 MG TAB.SUBL SL ×2 (02:37→09:35)
[2021-05-14] MEDS: Phenobarbital 32.4 MG Tablet 64.8 MG PO ×2 (02:37→09:35)
[2021-05-14 08:30] VITALS: BP 116/88; PULSE 78; RESP 18; TEMP 36.6; O2SAT 96
--- NOTE | 2021-05-14 08:33 | PCM.DC ---
Discharge Instructions Diet Discharge Diet: No restrictions Activity Discharge Activity: Return to Normal Activity Follow Up Care Test Results: Test results from this visit will be discussed in further detail at your follow-up appointment, if applicable. Discharge Plan Admission Admit Date/Time: 05/11/21 10:36 Primary Reason for Your Visit: Acute alcohol withdrawal Attending Provider: Susana Phan Primary Care Provider: Earnest Rodriguez Instructions Additional Instructions / Restrictions: You are strongly advised to avoid alcohol or use of any illicit drug. Avoid smoking. Follow-up with your outpatient rehab program as scheduled. Discharge Orders/Prescriptions Prescriptions: Continued cyanocobalamin (vitamin B-12) 500 MCG tablet 1,000 mcg PO DAILY@0800 RF: 0 pantoprazole 40 MG tablet,delayed release (DR/EC) 40 mg PO BID RF: 0 Discontinued buprenorphine-naloxone [Suboxone] 1 EACH film 2 strip PO DAILY RF: 0 Referrals / Follow Up: Earnest Rodriguez MD [Primary Care Provider] - Within 2 Weeks Disposition Disposition (needs filled in before D/C Order can be placed): Home, Self Care
--- NOTE | 2021-05-14 08:37 | PCM.DC.SUM ---
Providers Date of Admission: 05/11/21 Date of Discharge: 05/14/21 Primary Care Physician: Dr. Earnest Rodriguez MD Reason For Visit: ALCOHOL WITHDRAWAL Diagnosis Discharge Diagnosis (1) Alcohol withdrawal: Status: Resolved Code(s): F10.239 - Alcohol dependence with withdrawal, unspecified Qualifiers: Complication of substance-induced condition: uncomplicated Qualified Code(s): F10.230 - Alcohol dependence with withdrawal, uncomplicated (2) Duodenitis: Status: Inactive Code(s): K29.80 - Duodenitis without bleeding Medications at Discharge Home Medications cyanocobalamin (vitamin B-12) 1,000 mcg PO DAILY@0800 08/24/20 pantoprazole 40 mg PO BID 05/11/21 buprenorphine-naloxone [Suboxone] 1 film SUBLINGUAL BID 05/14/21 Hospital Course Operations None Procedures None Summary of Care Provided Minutes Spent on Discharge: 40 Hospital Course: 55-year-old female with past medical history of alcohol abuse, previous history of opioid dependence, on Suboxone who presents with alcohol intoxication requesting for medical stabilization. Patient's last drink was the night prior to admission. She was admitted to the [facility] floor, managed on the alcohol withdrawal protocol. Her hospital stay was uneventful. She was seen by the [facility] counselor and an outpatient follow-up recommended. Physical Exam Narrative On the day of discharge, patient was seen and examined. Denied any new complaints. Physical exam: General: Alert, Oriented x3, Cooperative, No apparent distress, Well developed HEENT: Atraumatic Oral: Moist Mucosa Neck: Supple Lungs: Clear to auscultation Cardiovascular: HS I+II, regular, no murmurs Abdomen: Bowel Sounds Present, Soft, Non Tender Extremities: No edema Skin: No rashes, No breakdown Neurological: Grossly intact Psych/Mental Status: Appropriate Weight / BMI Weight Weight: 94.3 kg Body Mass Index (BMI) 35.6 ABG / Lab / Microbiology Data Result Diagrams: 05/11/21 10:14 05/11/21 08:40 D/C Instructions Discharge Diet: No restrictions Meaningful Use Info Meaningful Use Diagnoses (Choose all that apply): None applicable Discharge Plan Admission Admit Date/Time: 05/11/21 10:36 Primary Reason for Your Visit: Acute alcohol withdrawal Attending Provider: Susana Phan Primary Care Provider: Earnest Rodriguez Instructions Additional Instructions / Restrictions: You are strongly advised to avoid alcohol or use of any illicit drug. Avoid smoking. Follow-up with your outpatient rehab program as scheduled. Discharge Orders/Prescriptions Prescriptions: Continued cyanocobalamin (vitamin B-12) 500 MCG tablet 1,000 mcg PO DAILY@0800 RF: 0 pantoprazole 40 MG tablet,delayed release (DR/EC) 40 mg PO BID RF: 0 Discontinued buprenorphine-naloxone [Suboxone] 1 EACH film 2 strip PO DAILY RF: 0 No Action buprenorphine-naloxone [Suboxone] 4-1 mg Film 1 film SUBLINGUAL BID RF: 0 Referrals / Follow Up: Earnest Rodriguez MD [Primary Care Provider] - Within 2 Weeks Disposition Disposition (needs filled in before D/C Order can be placed): Home, Self Care Charges/Coding Visit Charges Inpatient E&M: [id number] Disch Hosp
[2021-05-14] MEDS: Thiamine Hydrochloride 100 MG Tablet PO (09:29)
[2021-05-14] MEDS: Folic Acid 1 MG Tablet PO (09:29)
[2021-05-14] MEDS: amLODIPine 10 MG Tablet PO (09:30)
== END 2021-05-14 12:55 | disposition home or self-care (01) | DRG 897 ==
LOC: ED 10:47 → MS3 10:54
PROVIDERS: Admitting Provider Internal Medicine; Emergency Provider Emergency Medicine; PCP Family Medicine; Visit Provider Internal Medicine
DX: F10.230 Alcohol dependence with withdrawal, uncomplicated (principal); F10.229 Alcohol dependence with intoxication, unspecified; F17.210 Nicotine dependence, cigarettes, uncomplicated; K29.80 Duodenitis without bleeding; S20.01XA Contusion of right breast, initial encounter; W06.XXXA Fall from bed, initial encounter; Y90.9 Presence of alcohol in blood, level not specified
CPT/HCPCS: 36415; 71046; 80048; 80307; 82077; 84703; 85025; 99283; J7030; J7120; A4216

== ENCOUNTER 2021-05-18 14:13 | Emergency (ER) | payer MEDICARE, MEDICAID, SELFPAY ==
[2021-05-18 14:14] VITALS: BP 149/94; PULSE 86; RESP 15; TEMP 36.6; O2SAT 96; BMI 35.0
--- NOTE | 2021-05-18 14:46 | RAD_ITS ---
STUDY: X-RAY CHEST REASON FOR EXAM: Female, 55 years old. chest trauma TECHNIQUE: PA and lateral views of the chest. COMPARISON: 05/11/2021 FINDINGS: Mild fibrotic scarring in the left lung base. No airspace consolidation, pleural effusion or pneumothorax. Normal size heart. Normal mediastinum and pedro. Normal visualized pulmonary arteries. Normal visualized aortic arch and descending thoracic aorta. There are diffuse degenerative changes of the visualized thoracic spine. Normal visualized ribs, clavicles, and shoulders. There is no demonstrated abnormality of the visualized soft tissue structures of the upper abdomen. RAD/Chest PA and Lateral IMPRESSION: No acute cardiopulmonary process. Electronically Signed: Marty Cannon MD ([place]) at 15:22 EDT , Service support ,
--- NOTE | 2021-05-18 14:48 | EDS_ITS ---
HPI HPI - Fall History of Present Illness Chief Complaint: Fall Narrative Narrative: 55-year-old female presents with concern for chest pain. States that she is was in alcohol detox here approximately 1 week ago. States that the day before that she had fallen and struck her chest on a stool. States that she was not having significant pain because she was in detox but now is having increasing pain. States it is on the right side of her chest. Worse with mo vement. Painful breathing. Denies any shortness of breath. PFSH PFSH Medical History Alcohol abuse Anxiety Depression Drug abuse Hepatitis Irregular heart beat Home Medications cyanocobalamin (vitamin B-12) 1,000 mcg PO DAILY@0800 08/24/20 [History Last Taken 08/23/20 18:00] pantoprazole 40 mg PO BID 05/11/21 [History Last Taken 05/10/21] buprenorphine-naloxone [Suboxone] 2 film SUBLINGUAL BID #0 ea 05/14/21 [Rx Last Taken Unknown] Allergy/AdvReac Type Severity Reaction Status Date / Time No Known Allergies Allergy Verified 05/11/21 08:15 Social History Smoking Status: Current every day smoker tobacco type: cigarettes ROS ROS ED Constitutional Constitutional ED: Denies chills, fever(s) or sweats Eyes Eyes: Denies blurry vision, change in vision or diplopia ENT ENT ED: Denies rhinorrhea or sore throat Cardiovascular Cardiovascular: Reports chest pain; Denies orthopnea, palpitations or racing heartbeat Respiratory/Chest Respiratory/Chest: Denies cough, dyspnea, dyspnea on exertion, orthopnea or sputum Gastrointestinal Gastrointestinal: Denies abdominal pain, constipation, diarrhea, melena, nausea or vomiting Genitourinary Genitourinary ED: Denies dysuria, hematuria or urinary frequency Musculoskeletal Musculoskeletal: Denies arthralgias, myalgias or neck pain Integumentary Denies rash Neurologic Neurologic: Denies headache(s), paresthesias or weakness Psychiatric Psychiatric: Denies anxiety or depression Hematologic/Lymphatic Hematologic/Lymphatic: Denies easy bleeding or easy bruising Allergic/Immunologic Allergic/Immunologic ED: Denies mouth swelling or tongue swelling EXAM Physical Exam Const Vital Signs: 05/18/21 14:14 05/18/21 14:43 Temperature 97.8 F Temperature Source Temporal Pulse Rate 86 Respiratory Rate 15 Respiratory Effort Normal Non-Labored Respiratory Depth Normal Respiratory Pattern Normal Blood Pressure 149/94 H Blood Pressure Mean 112 Pulse Ox 96 Oxygen Delivery Method Room Air Room Air Positive well nourished and well developed General Appearance ED: well developed HEENT Reports TM's clear and moist mucous membranes normocephalic and atraumatic Tympanic Membrane ED: Yes TM's clear Eyes PERRL and EOMs intact bilaterally Neck no lymphadenopathy, supple and no JVD Chest Wall Chest Narrative: Ecchymosis of various stages and healing to the right chest with tenderness to palpation. No crepitus. Resp normal respiratory effort and clear to auscultation bilaterally Cardio regular rate, S1 normal heart sound, S2 normal heart sound and no murmurs Peripheral Pulses: pulses 2+ throughout GI soft to palpation, non-tender and non-distended Back/Spine no CVA tenderness and no thoracic nor lumbar tenderness Extremity normal to inspection General Extremety ED: Negative for edema or tenderness General Extremity: Negative for edema Neuro oriented x3, CN's II-XII intact bilaterally and no sensory deficits noted Sensorium / Orientation: alert Motor Exam: strength 5/5 throughout Psych mental status grossly normal Skin no rashes or lesions noted MDM MDM MDM Narrative Medical decision making narrative: Patient appears well and nontoxic. Vital signs within normal limits. Chest x-ray interpreted by myself shows no evidence of pneumothorax or rib fracture. Patient given intramuscular Toradol. Advised on Motrin and Tylenol at home. Asked to follow-up with primary care. Patient agreeable and discharged home in stable condition. Radiography Diagnostic Testing: Radiology Impression Chest X-Ray 05/18/21 14:46 IMPRESSION: No acute cardiopulmonary process. Electronically Signed: Marty Cannon MD (Brooks) at 15:22 EDT , Service support , Discharge Plan Triage Chief Complaint: Fall ED Provider: Kofi Yu Dx/Rx/DC Orders Clinical Impression: Chest wall contusion Instructions: ED Chest Wall Contusion Prescriptions: No Action cyanocobalamin (vitamin B-12) 500 MCG tablet 1,000 mcg PO DAILY@0800 RF: 0 pantoprazole 40 MG tablet,delayed release (DR/EC) 40 mg PO BID RF: 0 buprenorphine-naloxone [Suboxone] 4-1 mg Film 2 film SUBLINGUAL BID Qty: 0 RF: 0 Primary Care Provider: Earnest Rodriguez Referrals: Earnest Rodriguez MD [Primary Care Provider] - 2 Days Disposition Disposition: Home, Self Care
[2021-05-18] MEDS: Ketorolac 15 MG/ML Vial IM (15:03)
[2021-05-18 15:36] VITALS: PULSE 76; RESP 15; O2SAT 98
== END 2021-05-18 15:37 | disposition home or self-care (01) ==
PROVIDERS: Emergency Provider Emergency Medicine; PCP Family Medicine
DX: S20.219A Contusion of unspecified front wall of thorax, initial encounter (principal); W18.09XA Striking against other object with subsequent fall, initial encounter; Y93.9 Activity, unspecified; Y92.89 Other specified places as the place of occurrence of the external cause; Y99.8 Other external cause status; F32.9 Major depressive disorder, single episode, unspecified; F41.9 Anxiety disorder, unspecified; F17.210 Nicotine dependence, cigarettes, uncomplicated
CPT/HCPCS: 71046; 96372; 99282

== ENCOUNTER → 2021-07-09 09:02 | Outpatient (CLI) | payer MEDICARE, MEDICAID, SELFPAY ==
--- NOTE | 2021-07-09 09:07 | US_ITS ---
STUDY: ULTRASOUND BREAST - RIGHT REASON FOR EXAM: Female, 56 years old. Palpable lump following trauma. TECHNIQUE: Axial and longitudinal images of the RIGHT breast were performed with a high resolution ultrasound transducer. # OF IMAGES: 30 COMPARISON: Comparison is made with prior mammogram done earlier today. FINDINGS: RIGHT Breast: The palpable abnormality corresponds to a 4.5 cm x 4.8 cm x 1.4 cm heterogeneous solid and cystic nodule at the 1 o''clock position of the breast is 6 cm from nipple. This most likely represents a resolving hematoma. Follow-up sonogram in 3 months is recommended. US/Breast Limited Unilateral IMPRESSION: The palpable abnormality corresponds to a 4.5 cm x 4.8 cm x 1.4 cm heterogeneous solid and cystic nodule. This most likely represents a resolving hematoma. Follow-up sonogram in 3 months is recommended. ASSESSMENT CATEGORY: BIRADS Category 3: Probably Benign - Short-Interval Follow-up Suggested. A letter regarding these results will be sent to the patient by the facility within 30 days. Electronically Signed: Macario Tejeda MD at 12:25 EDT , Service support ,
--- NOTE | 2021-07-09 09:07 | BI_ITS ---
MAMMOGRAPHY - BILATERAL DIAGNOSTIC REASON FOR EXAM: Female, 56 years old. 2 month history of right breast lump following a fall. PERTINENT HISTORY: Sisters with breast cancer. Mother with breast cancer. TECHNIQUE: Digital bilateral breast ronak (3D mammographic acquisition) in the CC and MLO projections. 2-D mediolateral oblique (MLO) and craniocaudad (CC) views of both breasts were obtained. CAD: Full Field Digital Mammography with Computer Added Detection was performed. COMPARISON: Comparison is made with prior outside examination dated 01/04/2019. FINDINGS: Breast Composition: There are scattered areas of fibroglandular density. There are no dominant masses or suspicious calcifications. No other significant abnormalities are identified. There has been no significant change since the prior study. BI/DIAG MAMM W/CAD, BILAT IMPRESSION: Stable bilateral diagnostic mammogram. With the patient''s history of a right breast lump, correlation with ultrasound is recommended. ASSESSMENT CATEGORY: BIRADS Category 0: Incomplete. Need additional imaging evaluation. A letter regarding these results will be sent to the patient by the facility within 30 days. Approximately 10% of breast cancers are not detected by mammography. A normal mammogram should not delay biopsy of a clinically suspicious abnormality. Electronically Signed: Macario Tejeda MD at 10:22 EDT , Service support ,
== END ==
PROVIDERS: PCP Family Medicine
DX: N63.0 Unspecified lump in unspecified breast (principal); Z80.3 Family history of malignant neoplasm of breast
CPT/HCPCS: 76642; 77062; 77066; G0279

== ENCOUNTER 2021-09-10 10:24 | Inpatient (IN) | payer MEDICARE, MEDICAID, SELFPAY ==
[2021-09-10] VITALS (7 sets, daily range): BP systolic 103–132; BP diastolic 59–94; PULSE 70–95; RESP 14–18; TEMP 36.2–36.9; O2SAT 94–98; BMI 30.9
--- NOTE | 2021-09-10 11:51 | EX.ED.DYSGE1 ---
HPI History of Present Illness Chief Complaint: Substance Abuse Narrative Narrative: Patient desires to detox from alcohol. She is already on Suboxone, she has been substance free for the past 3 months but then her daughter moved out and she got depressed so she started drinking soon as she woke up in the morning until night. She drinks 4-5 bottles of jenny mix and the alcohol every day [facility] Medical History Alcohol abuse Anxiety Depression Drug abuse Hepatitis Irregular heart beat Home Medications cyanocobalamin (vitamin B-12) 1,000 mcg PO DAILY@0800 08/24/20 [History Last Taken 08/23/20 18:00] buprenorphine-naloxone [Suboxone] 2 film SUBLINGUAL BID #0 ea 05/14/21 [Rx Last Taken Unknown] trazodone 50 mg PO QHS 09/10/21 [History Last Taken Unknown] Allergy/AdvReac Type Severity Reaction Status Date / Time No Known Allergies Allergy Verified 09/10/21 10:31 Social History Smoking Status: Current every day smoker tobacco type: cigarettes ROS ROS ED ROS Narrative Past medical history: Reviewed, history of alcoholism and opiate addiction, she also has a remote history of pancreatitis Medications: Reviewed Social history: Noncontributory Review of systems: All systems negative except as indicated General: No fever Eyes: No visual changes ENT: No upper airway congestion, normal voice Neck: No neck pain Cardiovascular: No chest pain Respiratory: No shortness of breath or cough Gastrointestinal: No abdominal pain, nausea vomiting or diarrhea Genitourinary: No dysuria Musculoskeletal: Denies myalgias no difficulty with ambulation Skin: No rash Neurological: No memory loss, confusion or any focal weakness Psych: As in HPI Hematologic: No easy bleeding or easy bruising EXAM Physical Exam Narrative Exam Narrative: Physical exam General: Patient appears anxious Head: Normocephalic, Atraumatic Eyes: Conjunctiva not pale ENT: Moist mucous membranes Neck: Supple, Nontender, No lymphadenopathy Cardiovascular: Regular rate, Regular rhythm Respiratory: No distress, CTA bilaterally Abdomen: Soft, Nontender, Nondistended Back: Nontender, Normal Inspection. Negative for: CVA tenderness Extremities: Nontender, No edema Skin: Normal color, No rash Neurological: Alert, Normal Strength, Normal Sensation Const Vital Signs: 09/10/21 10:26 Temperature 97.1 F L Temperature Source Temporal Pulse Rate 95 Respiratory Rate 17 Blood Pressure 129/94 H Blood Pressure Mean 105 Oxygen Delivery Method Room Air MDM MDM MDM Narrative Medical decision making narrative: Patient is medically cleared, I will admit for detox. Lab Data Labs: Laboratory Results - last 24 hr 09/10/21 09/10/21 11:49 13:05 WBC 6.8 RBC 4.68 Hgb 14.8 Hct 43.3 MCV 92.5 MCH 31.6 MCHC 34.2 RDW Std Deviation 45.1 H RDW Coeff of Mamta 13.3 Plt Count 307 MPV 8.9 Immature Gran % (Auto) 0.400 Neut % (Auto) 67.9 Lymph % (Auto) 23.0 [place] % (Auto) 5.3 Eos % (Auto) 2.8 Baso % (Auto) 0.6 Absolute Neuts (auto) 4.6 Absolute Lymphs (auto) 1.57 Nucleated RBC % 0 Ur Drug Screen Comment Discharge Plan Triage Chief Complaint: Substance Abuse ED Provider: Rory Alvarez Dx/Rx/DC Orders Clinical Impression: Alcohol withdrawal Prescriptions: No Action cyanocobalamin (vitamin B-12) 500 MCG tablet 1,000 mcg PO DAILY@0800 RF: 0 buprenorphine-naloxone [Suboxone] 4-1 mg Film 2 film SUBLINGUAL BID Qty: 0 RF: 0 trazodone 50 mg Tablet 50 mg PO QHS RF: 0 Primary Care Provider: Earnest Rodriguez Referrals: Earnest Rodriguez MD [Primary Care Provider] - Disposition Disposition: Acute Care Hospital [facility]
[2021-09-10 12:00] LABS: Absolute Lymphocyte Count 1.57 X10^3/uL (0.83-4.51); Absolute Neutrophil Count 4.6 X10^3/uL (2.0-7.7); Basophil# 0.04 X10^3/uL; Basophil% 0.6 % (0-1); Eosinophil# 0.19 X10^3/uL; Eosinophils% 2.8 % (0-5); Hematocrit 43.3 % (37-47); Hemoglobin 14.8 g/dL (12.0-15.0); Lymphocyte # 1.57 X10^3/ul (0.83-4.51); Mean Corp Hgb Conc 34.2 g/dL (32-36); Mean Corpuscular Hgb 31.6 pg (27.0-32.0); Mean Corpuscular Volume 92.5 fL (81-99); Mean Platelet Vol. 8.9 fl (6.2-12.0); Monocyte# 0.36 X10^3/uL; Monocyte% 5.3 % (0-10); NRBC Flagged by Analyzer 0 % (0-5); Neutrophil # 4.64 X10^3/uL (2.7-7.7); Neutrophil % 67.9 % (47-70); Platelet Count 307 K/mm3 (150-450); RBC Distribution Width CV 13.3 % (11.6-14.6); RBC Distribution Width SD 45.1 fl (35.1-43.9); Red Blood Count 4.68 M/mm3 (4.2-5.4); White Blood Count 6.8 K/mm3 (4.4-11.0)
[2021-09-10 13:25] LABS: Anion Gap 8 (5-15); BUN 4 mg/dL (7-18); BUN/Creat Ratio 7.2 RATIO (10-20); Calcium,Total 9.1 mg/dL (8.5-10.1); Chloride 105 mmol/L (98-107); Creatinine, Serum 0.55 mg/dL (0.55-1.02); EST Glomerular Filtration Rate 121 mL/min (>60); Est Glom Filt Rate - Afr Amer 146 mL/min (>60); Estimated Creatinine Clearance 98.63 ml/min; Glucose 94 mg/dL (74-106); Potassium 3.7 mmol/L (3.5-5.1); Sodium Level 140 mmol/L (136-145)
[2021-09-10 13:32] LABS: Amphetamine Urine VISTA NEGATIVE (<1000 ng/mL); Barbiturate Urine VISTA NEGATIVE (< 200 ng/mL); Benzodiazepine Urine VISTA NEGATIVE (< 200 ng/mL); Cocaine Urine VISTA NEGATIVE (< 300 ng/mL); Ecstacy Urine VISTA NEGATIVE (< 500 ng/mL); Methadone Urine VISTA NEGATIVE (< 300 ng/mL); PCP Urine VISTA NEGATIVE (< 25 ng/mL); THC Urine VISTA NEGATIVE (< 50 ng/mL); Vista UDS pH Range 7
--- NOTE | 2021-09-10 14:06 | NURSING ---
MED SURG TERELETSKY DETOX
--- NOTE | 2021-09-10 14:36 | CM.ED ---
PURVI Note Referral Source: Case Find Referral Reason: KATRINA LOJA met with patient. Patient reports she is here for detox via [facility] program. Patient's drug of choice is alcohol. Patient said that she last drank at 10:30 last night (09/09/21). Patient reports that she drank a couple of bottles of [place] during the day. Patient is currently linked with [facility]. Patient had appointment with Dr. Grimes this morning and called and they told her to come to the ED. Patient also spoke to Osmany, Detox Therapist, at [facility] last night. Patient is in agreement with the protocol regarding the [facility] program. SW called Osmany, Detox therapist, and updated her regarding patient's admission to [facility]. Plan: Admit to [facility] Reny TORIBIO
--- NOTE | 2021-09-10 15:13 | PCM.HP.STD ---
HPI - General General Date of Admission: 09/10/21 Date of Service: 09/10/21 Chief Complaint: Alcohol detox HPI Narrative KAMI WATTS, is a 56 F who presents to the emergency room at [facility] requesting services for alcohol detox. Patient had been sober for approximately 3 months, she had some social issues and went back to drinking about a month ago. Patient's last drink was yesterday, she denies using any illicit drugs. Patient is having some anxiety and nausea at this time. Patient's lab is unremarkable today, she will be admitted to [facility] for alcohol detox, she has seen 180 before. [facility] Medical History Alcohol abuse Anxiety Depression Drug abuse Hepatitis Irregular heart beat Home Medications cyanocobalamin (vitamin B-12) 1,000 mcg PO DAILY@0800 08/24/20 [History Last Taken 08/23/20 18:00] buprenorphine-naloxone [Suboxone] 2 film SUBLINGUAL BID #0 ea 05/14/21 [Rx Last Taken Unknown] trazodone 50 mg PO QHS 09/10/21 [History Last Taken Unknown] Allergy/AdvReac Type Severity Reaction Status Date / Time No Known Allergies Allergy Verified 09/10/21 10:31 Social History Smoking Status: Current every day smoker tobacco type: cigarettes ROS Constitutional Constitutional: Denies anorexia, change in weight, fever(s), night sweats or weakness Eyes Eyes: Denies blurry vision, change in vision, discharge from eye(s) or eye pain Cardiovascular Cardiovascular: Denies chest pain, claudication, edema or palpitations Respiratory/Chest Respiratory/Chest: Denies cough, hemoptysis, shortness of breath at rest or shortness of breath with exertion Gastrointestinal Gastrointestinal: Reports nausea; Denies abdominal pain, constipation, diarrhea, hematemesis, hematochezia, melena or vomiting Genitourinary Genitourinary: Denies dysuria, hematuria, urinary frequency, urinary hesitancy, urinary incontinence or urinary urgency Musculoskeletal Musculoskeletal: Denies back pain, joint pain, joint stiffness, joint swelling, myalgias or neck pain Neurologic Neurologic: Denies abnormal gait, abnormal speech, dizziness, focal weakness, headache(s), loss of vision, numbness, other visual disturbances, paresthesias, syncope or tingling Psychiatric Psychiatric: Reports anxiety; Denies cognitive impairment, depression, irritability, mood swings or suicidal ideation Endocrine Endocrinology: Denies change in body appearance, cold intolerance, excessive sweating, heat intolerance, polydipsia or polyuria Hematologic/Lymphatic Hematologic/Lymphatic: Denies none, anemia, easy bleeding, easy bruising or lymphadenopathy Allergic/Immunologic Allergic/Immunologic: Denies rhinitis, urticaria, eczemia or asthma Vital Signs Vital Signs Vital Signs: 09/10/21 10:26 09/10/21 13:48 09/10/21 14:49 Temperature 97.1 F L 98.0 F Temperature Source Temporal Temporal Pulse Rate 95 70 72 Respiratory Rate 17 15 14 Blood Pressure 129/94 H 111/59 L 103/61 Blood Pressure Mean 105 76 75 Pulse Ox 97 94 Oxygen Delivery Method Room Air Room Air Room Air Weight Weight: 81.647 kg Body Mass Index (BMI) 30.9 Physical Exam Const alert, oriented x3 and healthy appearing Constitutional Narrative: Patient appears mildly anxious General Appearance: cooperative, well kempt and well developed Orientation / Consciousness: awake, oriented to person, oriented to place and oriented to time HEENT normocephalic and moist oral mucous membranes Eyes PERRL, EOMs intact bilaterally and conjunctivae normal Neck nuchal rigidity, supple, no JVD, thyroid normal and no carotid bruits General: trachea midline Resp normal respiratory effort and clear to auscultation bilaterally Auscultation: Negative for rales, rhonchi or wheezes Cardio regular rate, regular rhythm, S1 normal heart sound, S2 normal heart sound, no murmurs, no rub and no gallops GI normal to inspection, nondistended, normoactive bowel sounds, soft to palpation, non-tender and non-distended Extremity no clubbing, cyanosis or edema Skin no rashes or lesions noted and skin turgor normal General Skin Exam: no breakdown Neuro oriented x3, CN's II-XII intact bilaterally, no focal motor deficits and no sensory deficits noted Sensorium / Orientation: awake and alert Speech: speech normal Psych thought process normal and affect normal Results Lab / Micro Data Result Diagrams: 09/10/21 11:49 09/10/21 11:49 Labs: Laboratory Results - last 24 hr 09/10/21 11:49: WBC 6.8, RBC 4.68, Hgb 14.8, Hct 43.3, MCV 92.5, MCH 31.6, MCHC 34.2, RDW Std Deviation 45.1 H, RDW Coeff of Mamta 13.3, Plt Count 307, MPV 8.9, Immature Gran % (Auto) 0.400, Neut % (Auto) 67.9, Lymph % (Auto) 23.0, [place] % (Auto) 5.3, Eos % (Auto) 2.8, Baso % (Auto) 0.6, Absolute Neuts (auto) 4.6, Absolute Lymphs (auto) 1.57, Nucleated RBC % 0 09/10/21 11:49: Sodium 140, Potassium 3.7, Chloride 105, Carbon Dioxide 27.0, Anion Gap 8, BUN 4 L, Creatinine 0.55, Estim Creat Clear Calc 98.63, Est GFR (MDRD) Af Amer 146, Est GFR (MDRD) Non-Af 121, BUN/Creatinine Ratio 7.2 L, Glucose 94, Calcium 9.1 09/10/21 11:49: Ethyl Alcohol 14.0 09/10/21 13:05: Urine Opiates Screen NEGATIVE, Urine Methadone Screen NEGATIVE, Ur Barbiturates Screen NEGATIVE, Ur Phencyclidine Scrn NEGATIVE, Ur Amphetamines Screen NEGATIVE, U Methamphetamin-MDMA NEGATIVE, U Benzodiazepines Scrn NEGATIVE, Urine Cocaine Screen NEGATIVE, U Cannabinoids Screen NEGATIVE, Ur Drug Screen Comment Assessment & Plan Assessment/Plan (1) Alcohol withdrawal: PLAN: 1. Alcohol withdrawal-patient will be admitted to [facility] 3 using the order set for alcohol withdrawal, patient will be placed on a phenobarb taper,patient will be seen by 180 #2 chronic alcoholism #3 history of drug abuse-patient is on Subutex, this will be continued Charges/Coding Visit Charges Inpatient E&M: 62000 Subs Hosp L3
[2021-09-10] MEDS: Phenobarbital 32.4 MG Tablet 64.8 MG PO ×2 (15:56→19:04)
[2021-09-10] MEDS: Ibuprofen 600 MG Tablet PO (19:03)
[2021-09-10] MEDS: Gabapentin 300 MG Capsule PO (19:04)
[2021-09-10] MEDS: BUPRENORPHINE HCL 8 MG TAB.SUBL SL (21:49)
[2021-09-10] MEDS: traZODone 50 MG Tablet PO (21:49)
[2021-09-11] MEDS: Phenobarbital 32.4 MG Tablet 64.8 MG PO ×7 (00:11→23:07)
[2021-09-11 01:47] VITALS: BP 95/55; PULSE 58; RESP 18; TEMP 36.2; O2SAT 97
[2021-09-11 05:47] VITALS: BP 98/60; PULSE 64; RESP 18; TEMP 36.6; O2SAT 97
--- NOTE | 2021-09-11 07:00 | PCM.PN.HOSP ---
Subjective Subjective Patient is a 56-year-old lady with history of polysubstance abuse admitted with acute alcohol withdrawal Objective Data Objective Data Vital Signs: Vital Signs Temp Pulse Resp BP Pulse Ox 97.8 F 64 18 98/60 97 09/11/21 05:47 09/11/21 05:47 09/11/21 05:47 09/11/21 05:47 09/11/21 05:47 Oxygen Flow Rate (L/min) 98 Oxygen Delivery Method Room Air Weight: 81.647 kg Body Mass Index (BMI) 30.9 Lab / Micro Data Result Diagrams: 09/10/21 11:49 09/10/21 11:49 Labs: Laboratory Results - last 24 hr 09/10/21 11:49: WBC 6.8, RBC 4.68, Hgb 14.8, Hct 43.3, MCV 92.5, MCH 31.6, MCHC 34.2, RDW Std Deviation 45.1 H, RDW Coeff of Mamta 13.3, Plt Count 307, MPV 8.9, Immature Gran % (Auto) 0.400, Neut % (Auto) 67.9, Lymph % (Auto) 23.0, [place] % (Auto) 5.3, Eos % (Auto) 2.8, Baso % (Auto) 0.6, Absolute Neuts (auto) 4.6, Absolute Lymphs (auto) 1.57, Nucleated RBC % 0 09/10/21 11:49: Sodium 140, Potassium 3.7, Chloride 105, Carbon Dioxide 27.0, Anion Gap 8, BUN 4 L, Creatinine 0.55, Estim Creat Clear Calc 98.63, Est GFR (MDRD) Af Amer 146, Est GFR (MDRD) Non-Af 121, BUN/Creatinine Ratio 7.2 L, Glucose 94, Calcium 9.1 09/10/21 11:49: Ethyl Alcohol 14.0 09/10/21 13:05: Urine Opiates Screen NEGATIVE, Urine Methadone Screen NEGATIVE, Ur Barbiturates Screen NEGATIVE, Ur Phencyclidine Scrn NEGATIVE, Ur Amphetamines Screen NEGATIVE, U Methamphetamin-MDMA NEGATIVE, U Benzodiazepines Scrn NEGATIVE, Urine Cocaine Screen NEGATIVE, U Cannabinoids Screen NEGATIVE, Ur Drug Screen Comment Physical Exam Narrative GENERAL: cooperative HEENT: Atraumatic; EYES; Anicteric, Normal Conjunctiva NECK; supple, normal thyroid, RESPIRATORY: Diminished to auscultation CARDIOVASCULAR: Regular S1 S2, GI: soft, normoactive bowel sounds, : No Renal angle tenderness; EXTREMITIES: No edema, no clubbing, MUSCULOSKELETAL: no muscle waisting NEURO: Awake; no lateralizing signs. SKIN: No Rash PSYCH; Flat affect Assessment & Plan Assessment/Plan (1) Alcohol withdrawal: PLAN: 56-year-old lady with history of polysubstance abuse admitted with acute alcohol withdrawal 1. Acute alcohol withdrawal ?Patient has been admitted to regular nursing floor currently undergoing medical stabilization using phenobarb taper with consultation placed [facility] counseling services 2. Chronic alcohol dependence counseled on cessation 3. History of previous opioid dependence ?Currently on Subutex 4. Tobacco dependence - Counseled on cessation, offered nicotine patch for tobacco cravings 5. DVT prophylaxis -Low risk, Will encourage early ambulation Charges/Coding Visit Charges Inpatient E&M: 09814 Subs Hosp L2
[2021-09-11 09:25] VITALS: BP 126/87; PULSE 73; RESP 14; TEMP 36.9; O2SAT 96
[2021-09-11] MEDS: Folic Acid 1 MG Tablet PO (09:27)
[2021-09-11] MEDS: BUPRENORPHINE HCL 8 MG TAB.SUBL SL ×2 (09:27→23:07)
[2021-09-11] MEDS: Cyanocobalamin 500 MCG Tablet 1000 MCG PO (09:28)
[2021-09-11] MEDS: Thiamine Hydrochloride 100 MG Tablet PO (09:28)
--- NOTE | 2021-09-11 11:40 | ADDICTION ---
This physician underwriter met with PT to conduct ASAM, MSE, AUDIT, DUDIT assessments and to plan for d/c. PT A+Ox4 and participated actively. All assessments completed, faxed to [facility] and placed in PT's chart. PT plans to f/u with individual counselor at [facility] for an assessment, residential and follow-up counseling services. PT did not indicate a need for transportation post d/c from [facility].
[2021-09-11 15:18] VITALS: BP 124/83; PULSE 70; RESP 14; TEMP 36.6; O2SAT 96
[2021-09-11 21:00] VITALS: BP 98/68; PULSE 70; RESP 18; TEMP 36.7; O2SAT 95
[2021-09-11] MEDS: traZODone 50 MG Tablet PO (23:07)
[2021-09-12 03:00] VITALS: BP 110/71; PULSE 65; RESP 18; TEMP 36.8; O2SAT 95
[2021-09-12] MEDS: Phenobarbital 32.4 MG Tablet 64.8 MG PO ×5 (03:08→20:35)
[2021-09-12] MEDS: Thiamine Hydrochloride 100 MG Tablet PO (08:13)
[2021-09-12] MEDS: Folic Acid 1 MG Tablet PO (08:13)
[2021-09-12] MEDS: Cyanocobalamin 500 MCG Tablet 1000 MCG PO (08:13)
[2021-09-12 09:30] VITALS: BP 114/86; PULSE 76; RESP 18; TEMP 37.1; O2SAT 97
[2021-09-12] MEDS: BUPRENORPHINE HCL 8 MG TAB.SUBL SL ×2 (09:43→21:42)
--- NOTE | 2021-09-12 11:04 | PCM.PN.HOSP ---
Subjective Subjective No issues overnight, doing well. CIWA of 4, plan will be to follow-up with 180 on discharge Objective Data Objective Data Vital Signs: Vital Signs Temp Pulse Resp BP Pulse Ox 98.7 F 76 18 114/86 H 97 09/12/21 09:30 09/12/21 09:30 09/12/21 09:30 09/12/21 09:30 09/12/21 09:30 Oxygen Flow Rate (L/min) 98 Oxygen Delivery Method Room Air Weight: 180 lb Body Mass Index (BMI) 30.9 Lab / Micro Data Result Diagrams: 09/10/21 11:49 09/10/21 11:49 Physical Exam Const alert, oriented x3 and no apparent distress General Appearance: cooperative HEENT normocephalic and moist oral mucous membranes Eyes PERRL, EOMs intact bilaterally and conjunctivae normal Neck supple and no JVD Resp normal respiratory effort, no retractions, no use of accessory muscles and clear to auscultation bilaterally Auscultation: Negative for crackles, rales, rhonchi or wheezes Cardio regular rate, regular rhythm, S1 normal heart sound, S2 normal heart sound and no murmurs GI soft to palpation, non-tender and non-distended; Negative for hepatosplenomegaly Extremity no clubbing, cyanosis or edema Skin no rashes or lesions noted Neuro no focal motor deficits and no sensory deficits noted Psych affect normal Appearance: appropriate Assessment & Plan Assessment/Plan (1) Alcohol withdrawal: PLAN: 1. Acute alcohol withdrawal/chronic alcohol dependence/history of opiate abuse/tobacco abuse ?Patient has been admitted to regular nursing floor currently undergoing medical stabilization using phenobarb taper with consultation placed 180 counseling services -Continue with Subutex -Offered nicotine patch, counseled on cessation DVT: Ambulation Charges/Coding Visit Charges Inpatient E&M: 38591 Subs Hosp L2
[2021-09-12] MEDS: hydrOXYzine PAM 25 MG Capsule 50 MG PO (11:51)
[2021-09-12 15:00] VITALS: BP 134/73; PULSE 81; RESP 16; TEMP 37; O2SAT 96
[2021-09-12] MEDS: Acetaminophen 500 MG Tablet PO (16:44)
[2021-09-12 20:36] VITALS: BP 98/54; PULSE 62; RESP 16; TEMP 36.8; O2SAT 95
[2021-09-12] MEDS: traZODone 50 MG Tablet PO (21:42)
[2021-09-12] MEDS: 0.9% Saline Lock 10 ML Syringe IV (21:46)
[2021-09-13] MEDS: Phenobarbital 32.4 MG Tablet 64.8 MG PO ×2 (00:24→06:31)
--- NOTE | 2021-09-13 09:50 | PCM.DC ---
Discharge Instructions Diet Discharge Diet: No restrictions Activity Discharge Activity: Return to Normal Activity Dressing / Incision Call your doctor if you observe: Fever of 101 or Higher, Shortness of breath, Dizziness, Fainting spells, Swelling in the ankles, Chest pain and Increased palpitations (irregular heartbeat) Follow Up Care Test Results: Test results from this visit will be discussed in further detail at your follow-up appointment, if applicable. Discharge Plan Admission Admit Date/Time: 09/10/21 14:12 Attending Provider: Tavares Sepulveda Primary Care Provider: Earnest Rodriguez Discharge Orders/Prescriptions Prescriptions: Continued cyanocobalamin (vitamin B-12) 500 MCG tablet 1,000 mcg PO DAILY@0800 RF: 0 buprenorphine-naloxone [Suboxone] 4-1 mg Film 2 film SUBLINGUAL BID Qty: 0 RF: 0 trazodone 50 mg Tablet 50 mg PO QHS RF: 0 Referrals / Follow Up: Earnest Rodriguez MD [Primary Care Provider] - Within 1 Week Disposition Disposition (needs filled in before D/C Order can be placed): Home, Self Care
--- NOTE | 2021-09-13 09:52 | PCM.DC.SUM ---
Providers Date of Admission: 09/10/21 Primary Care Physician: Dr. Earnest Rodriguez MD Reason For Visit: ALCOHOL WITHDRAWAL Diagnosis Discharge Diagnosis (1) Alcohol withdrawal: Status: Acute Code(s): F10.239 - Alcohol dependence with withdrawal, unspecified Medications at Discharge Home Medications cyanocobalamin (vitamin B-12) 1,000 mcg PO DAILY@0800 08/24/20 buprenorphine-naloxone [Suboxone] 2 film SUBLINGUAL BID #0 ea 05/14/21 trazodone 50 mg PO QHS 09/10/21 Hospital Course Operations None Procedures None Summary of Care Provided Minutes Spent on Discharge: 35 Hospital Course: Per HPI: KAMI WATTS, is a 56 F who presents to the emergency room at [facility] requesting services for alcohol detox. Patient had been sober for approximately 3 months, she had some social issues and went back to drinking about a month ago. Patient's last drink was yesterday, she denies using any illicit drugs. Patient is having some anxiety and nausea at this time. Patient's lab is unremarkable today, she will be admitted to [facility] for alcohol detox, she has seen 180 before. Hospital Course: 1. Acute alcohol withdrawal/chronic alcohol dependence/history of opiate abuse/tobacco abuse ?Patient has been admitted to regular nursing floor currently undergoing medical stabilization using phenobarb taper with consultation placed 180 counseling services -Continue with Subutex -Offered nicotine patch, counseled on cessation -Discussed with her the plan for discharge today to residential treatment, she expressed understanding of the risk and benefits of going to treatment and would like to go today. Physical Exam Const alert, oriented x3 and no apparent distress General Appearance: cooperative HEENT normocephalic and moist oral mucous membranes Eyes PERRL, EOMs intact bilaterally and conjunctivae normal Neck supple and no JVD Resp normal respiratory effort, no retractions, no use of accessory muscles and clear to auscultation bilaterally Auscultation: Negative for crackles, rales, rhonchi or wheezes Cardio regular rate, regular rhythm, S1 normal heart sound, S2 normal heart sound and no murmurs GI soft to palpation, non-tender and non-distended; Negative for hepatosplenomegaly Extremity no clubbing, cyanosis or edema Skin no rashes or lesions noted Neuro no focal motor deficits and no sensory deficits noted Psych affect normal Appearance: appropriate Weight / BMI Weight Weight: 180 lb Body Mass Index (BMI) 30.9 ABG / Lab / Microbiology Data Result Diagrams: 09/10/21 11:49 09/10/21 11:49 D/C Instructions Discharge Diet: No restrictions Call your doctor if you observe: Fever of 101 or Higher, Shortness of breath, Dizziness, Fainting spells, Swelling in the ankles, Chest pain and Increased palpitations (irregular heartbeat) Meaningful Use Info Meaningful Use Diagnoses (Choose all that apply): None applicable Discharge Plan Admission Admit Date/Time: 09/10/21 14:12 Attending Provider: Tavares Sepulveda Primary Care Provider: Earnest Rodriguez Discharge Orders/Prescriptions Prescriptions: Continued cyanocobalamin (vitamin B-12) 500 MCG tablet 1,000 mcg PO DAILY@0800 RF: 0 buprenorphine-naloxone [Suboxone] 4-1 mg Film 2 film SUBLINGUAL BID Qty: 0 RF: 0 trazodone 50 mg Tablet 50 mg PO QHS RF: 0 Referrals / Follow Up: Earnest Rodriguez MD [Primary Care Provider] - Within 1 Week Disposition Disposition (needs filled in before D/C Order can be placed): Home, Self Care Charges/Coding Visit Charges Inpatient E&M: 12914 Disch Hosp
[2021-09-13 09:58] VITALS: BP 95/59; PULSE 75; RESP 18; TEMP 36.3; O2SAT 95
[2021-09-13] MEDS: Cyanocobalamin 500 MCG Tablet 1000 MCG PO (10:00)
[2021-09-13] MEDS: Folic Acid 1 MG Tablet PO (10:00)
[2021-09-13] MEDS: Thiamine Hydrochloride 100 MG Tablet PO (10:01)
[2021-09-13] MEDS: BUPRENORPHINE HCL 8 MG TAB.SUBL SL (10:06)
== END 2021-09-13 10:40 | disposition home or self-care (01) | DRG 897 ==
LOC: ED 13:36 → MS2 09-11 06:54
PROVIDERS: Admitting Provider Internal Medicine; Emergency Provider Emergency Medicine; PCP Family Medicine; Visit Provider Family Medicine
DX: F10.239 Alcohol dependence with withdrawal, unspecified (principal); F11.11 Opioid abuse, in remission; F17.210 Nicotine dependence, cigarettes, uncomplicated; Z79.899 Other long term (current) drug therapy
CPT/HCPCS: 80048; 80307; 82077; 85025; 99283; 99406; A4216

== ENCOUNTER 2022-01-22 12:06 | Emergency (ER) | payer MEDICARE, MEDICAID, SELFPAY ==
[2022-01-22 12:07] VITALS: BP 140/99; PULSE 75; RESP 18; TEMP 36.4; O2SAT 99; BMI 29.2
--- NOTE | 2022-01-22 12:31 | US_ITS ---
STUDY: ABDOMINAL ULTRASOUND - RIGHT UPPER QUADRANT REASON FOR VISIT: Female, 56 years old right upper quadrant pain. TECHNIQUE: Ultrasound evaluation of the right upper quadrant was performed with real-time and static rogers-scale imaging. TECHNICAL QUALITY: Adequate. COMPARISON: None. FINDINGS: Liver: The liver measures 17.8 cm. There is a heterogeneous echogenicity of the liver. The bile ducts are within normal limits. There is hepatic color flow. The direction of portal flow is hepatopetal. There is no demonstrated mass lesion. Gallbladder: Mildly dilated gallbladder. The gallbladder wall measures 3 mm. There is a positive sonographic Mccarthy''s sign. There is no pericholecystic fluid. There are no gallstones. Common Bile Duct (C.B.D.): The common bile duct is slightly dilated and measures 13-15 mm. Pancreas: Normal size of the head, body and tail of the pancreas. There is increased echogenicity of the pancreas. There is no demonstrated pancreatic mass or cyst. Right Kidney: Normal size of the right kidney. The right kidney measures 12.4 cm x 4.1 cm x 4.1 cm. Normal renal cortex. The right cortex measures 1.4 cm. There is no demonstrated renal mass or cyst. There is no right hydronephrosis. US/Gallbladder IMPRESSION: Heterogeneous echotexture of the liver. Mildly distended gallbladder with positive Mccarthy''s sign. Dilated common bile duct. Electronically Signed: Macario Tejeda MD at 13:45 EST ,
[2022-01-22] MEDS: 0.9% Normal Saline 1,000 ML 1000 ML IV (12:44)
[2022-01-22] MEDS: Ketorolac 15 MG/ML Vial IV (12:44)
[2022-01-22] MEDS: Ondansetron 4 MG/2 ML Vial IV (12:44)
[2022-01-22 12:50] LABS: Absolute Lymphocyte Count 2.12 X10^3/uL (0.83-4.51); Absolute Neutrophil Count 4.7 X10^3/uL (2.0-7.7); Basophil# 0.05 X10^3/uL; Basophil% 0.7 % (0-1); Eosinophil# 0.16 X10^3/uL; Eosinophils% 2.1 % (0-5); Hematocrit 42.3 % (37-47); Hemoglobin 14.6 g/dL (12.0-15.0); Lymphocyte # 2.12 X10^3/ul (0.83-4.51); Mean Corp Hgb Conc 34.5 g/dL (32-36); Mean Corpuscular Hgb 30.7 pg (27.0-32.0); Mean Corpuscular Volume 88.9 fL (81-99); Mean Platelet Vol. 10.1 fl (6.2-12.0); Monocyte# 0.49 X10^3/uL; Monocyte% 6.5 % (0-10); NRBC Flagged by Analyzer 0 % (0-5); Neutrophil # 4.73 X10^3/uL (2.7-7.7); Neutrophil % 62.3 % (47-70); Platelet Count 321 K/mm3 (150-450); RBC Distribution Width CV 13.2 % (11.6-14.6); RBC Distribution Width SD 43.1 fl (35.1-43.9); Red Blood Count 4.76 M/mm3 (4.2-5.4); White Blood Count 7.6 K/mm3 (4.4-11.0)
[2022-01-22 13:07] LABS: ALB/GLOB Ratio 1.1 RATIO (0.9-2.4); AST(SGOT) 13 U/L (15-37); Alanine Aminotransfer ALT/SGPT 18 U/L (13-56); Alkaline Phosphatase 100 U/L (45-117); Anion Gap 5 (5-15); BUN 15 mg/dL (7-18); BUN/Creat Ratio 23.5 RATIO (10-20); Calcium,Total 9.7 mg/dL (8.5-10.1); Chloride 103 mmol/L (98-107); Creatinine, Serum 0.64 mg/dL (0.55-1.02); EST Glomerular Filtration Rate 102 mL/min (>60); Est Glom Filt Rate - Afr Amer 123 mL/min (>60); Estimated Creatinine Clearance 84.76 ml/min; Globulin 3.5 g/dL (2.2-4.2); Glucose 91 mg/dL (74-106); Lipase 69 U/L (73-393); Potassium 4.3 mmol/L (3.5-5.1); Protein, Total 7.5 g/dL (6.4-8.2); Sodium Level 138 mmol/L (136-145)
--- NOTE | 2022-01-22 13:30 | EX.ED.DYSGE1 ---
HPI History of Present Illness Chief Complaint: Abd Pain Informant: patient Narrative Narrative: Patient presents with pain in the right upper quadrant. It started this morning. It started after she was already awake. She did not eat this morning but she did eat [employer] last night which is not a typical meal for her. She states the pain gets bad and cramps and then seems to calm down a little bit. She has had some nausea but no actual vomiting. She has been close. No fevers or chills. No pain to her back. No urinary symptoms. No history of cholecystectomy. No appendectomy. Past medical history is alcoholism but she has not drank since August. Prior opiate use. She does not want opiates now. She has had pancreatitis but states this feels different. Medications are Suboxone No known drug allergies Surgery: Umbilical hernia and tubal ligation. No longer drinks or uses drugs. PFSH PFSH Medical History Alcohol abuse Anxiety Depression Drug abuse Duodenitis Hearing loss, left Hearing loss, right Hepatitis Irregular heart beat Migraines Osteoporosis Smoker Home Medications cyanocobalamin (vitamin B-12) 1,000 mcg PO DAILY@0800 08/24/20 [History Last Taken 08/23/20 18:00] buprenorphine-naloxone [Suboxone] 2 film SUBLINGUAL BID #0 ea 05/14/21 [Rx Last Taken Unknown] trazodone 50 mg PO QHS 09/10/21 [History Last Taken Unknown] dicyclomine 20 mg PO TID PRN #20 tab 01/22/22 [Rx Last Taken Unknown] naproxen 500 mg PO BID #20 tab 01/22/22 [Rx Last Taken Unknown] ondansetron 4 mg PO Q8H PRN #10 tab 01/22/22 [Rx Last Taken Unknown] Allergy/AdvReac Type Severity Reaction Status Date / Time No Known Allergies Allergy Verified 01/22/22 12:09 Social History Smoking Status: Current every day smoker tobacco type: cigarettes ROS ROS ED Constitutional Constitutional ED: Denies chills or fever(s) ENT ENT ED: Denies rhinorrhea or sore throat Cardiovascular Cardiovascular: Denies chest pain or palpitations Respiratory/Chest Respiratory/Chest: Denies cough or dyspnea Gastrointestinal Gastrointestinal: Reports abdominal pain and nausea; Denies vomiting Genitourinary Genitourinary ED: Denies dysuria or hematuria Musculoskeletal Musculoskeletal: Denies arthralgias, back pain, myalgias or neck pain Integumentary Denies rash Neurologic Neurologic: Denies headache(s) Psychiatric Psychiatric: Denies anxiety or depression Endocrine Endocrinology: Denies polydipsia or polyuria Allergic/Immunologic Allergic/Immunologic ED: Denies mouth swelling or urticaria EXAM Physical Exam Const Vital Signs: 01/22/22 12:07 01/22/22 14:07 Temperature 97.5 F L Temperature Source Temporal Pulse Rate 75 73 Respiratory Rate 18 14 Blood Pressure 140/99 H 105/73 Blood Pressure Mean 112 83 Pulse Ox 99 98 Oxygen Delivery Method Room Air Room Air Positive well nourished and well developed General Appearance ED: well developed and NAD; Negative for cyanotic or diaphoretic HEENT Reports moist mucous membranes Eyes General Eye ED: Negative for pale conjunctiva or scleral icterus Neck no JVD Chest Wall inspection of chest normal Resp normal respiratory effort and clear to auscultation bilaterally Effort and Inspection: Negative for pain with movement Auscultation: Negative for rales, rhonchi or wheezes Cardio regular rate and regular rhythm GI normal to inspection, nondistended, normoactive bowel sounds GI Narrative: Patient does have some right upper quadrant tenderness. She has a slightly positive Mccarthy sign. There is no rebound or guarding. Abdomen is not distended. Bowel sounds are normal. Palpation: soft Back/Spine no CVA tenderness Extremity normal to inspection Neuro oriented x3 Sensorium / Orientation: alert Psych mental status grossly normal Skin no rashes or lesions noted MDM MDM MDM Narrative Medical decision making narrative: Patient requested no narcotics as she is recovering and on Suboxone. CBC is normal. Electrolytes are overall unremarkable other than minimal elevation of the BUN to creatinine ratio. She was given IV fluids. Lipase is low. Liver function tests are all normal. Ultrasound showed mildly distended gallbladder but no stones or sludge. No pericholecystic fluid. She did have an large common bile duct. Patient is rechecked. She is feeling better. She still has some soreness remaining though. Exam shows some mild localized tenderness but no rebound or guarding. I discussed the case with Dr. Hauser. We discussed the history, past history, exam, labs and ultrasound. He recommended close follow-up. He will get HIDA scan as an outpatient. If she develops worsening pain, vomiting, fevers or other concerns she should return. Lab Data Attestation: I reviewed the patient's lab results. Labs: Laboratory Results - last 24 hr 01/22/22 01/22/22 12:28 12:28 WBC 7.6 RBC 4.76 Hgb 14.6 Hct 42.3 MCV 88.9 MCH 30.7 MCHC 34.5 RDW Std Deviation 43.1 RDW Coeff of Mamta 13.2 Plt Count 321 MPV 10.1 Immature Gran % (Auto) 0.400 Neut % (Auto) 62.3 Lymph % (Auto) 28.0 [place] % (Auto) 6.5 Eos % (Auto) 2.1 Baso % (Auto) 0.7 Absolute Neuts (auto) 4.7 Absolute Lymphs (auto) 2.12 Nucleated RBC % 0 Sodium 138 Potassium 4.3 Chloride 103 Carbon Dioxide 30.0 Anion Gap 5 BUN 15 Creatinine 0.64 Estim Creat Clear Calc 84.76 Est GFR (MDRD) Af Amer 123 Est GFR (MDRD) Non-Af 102 BUN/Creatinine Ratio 23.5 H Glucose 91 Calcium 9.7 Total Bilirubin 0.50 AST 13 L ALT 18 Alkaline Phosphatase 100 Total Protein 7.5 Albumin 4.0 Globulin 3.5 Albumin/Globulin Ratio 1.1 Lipase 69 L Radiography Diagnostic Testing: Clinical Impression(s) from Imaging Studies Gallbladder Ultrasound 01/22/22 12:31 IMPRESSION: Heterogeneous echotexture of the liver. Mildly distended gallbladder with positive Mccarthy''s sign. Dilated common bile duct. Electronically Signed: Macario Tejeda MD at 13:45 EST , Discharge Plan Triage Chief Complaint: Abd Pain ED Provider: Jose Godoy Dx/Rx/DC Orders Clinical Impression: Biliary colic Instructions: ED Abdominal Pain Gallstone Poss Prescriptions: New ondansetron 4 mg tablet,disintegrating 4 mg PO Q8H PRN (Reason: nausea and vomiting) Qty: 10 RF: 0 naproxen 500 MG tablet 500 mg PO BID Qty: 20 RF: 0 dicyclomine 20 mg tablet 20 mg PO TID PRN (Reason: pain) Qty: 20 RF: 0 No Action cyanocobalamin (vitamin B-12) 500 MCG tablet 1,000 mcg PO DAILY@0800 RF: 0 buprenorphine-naloxone [Suboxone] 4-1 mg Film 2 film SUBLINGUAL BID Qty: 0 RF: 0 trazodone 50 mg Tablet 50 mg PO QHS RF: 0 Primary Care Provider: Earnest Rodriguez Referrals: Isac Hauser MD [STAFF PHYSICIAN] - As soon as possible (Call today or first thing in the morning for appointment.) Earnest Rodriguez MD [Primary Care Provider] - Disposition Disposition: Home, Self Care
[2022-01-22 14:07] VITALS: BP 105/73; PULSE 73; RESP 14; O2SAT 98
[2022-01-22 15:23] VITALS: BP 125/78; PULSE 78; RESP 14; TEMP 36.9; O2SAT 98
[2022-01-22] MEDS: Dicyclomine 10 MG Capsule 20 MG PO (15:24)
== END 2022-01-22 15:39 | disposition home or self-care (01) ==
PROVIDERS: Emergency Provider Emergency Medicine; PCP Family Medicine; Visit Provider Emergency Medicine
DX: K80.50 Calculus of bile duct without cholangitis or cholecystitis without obstruction (principal); K82.8 Other specified diseases of gallbladder; H91.93 Unspecified hearing loss, bilateral; R74.8 Abnormal levels of other serum enzymes; F17.210 Nicotine dependence, cigarettes, uncomplicated; R11.0 Nausea
CPT/HCPCS: 76705; 80053; 83690; 85025; 96361; 96374; 96375; 99284; J7030; J2405

== ENCOUNTER 2022-01-26 17:34 | Emergency (ER) | payer MEDICARE, MEDICAID, SELFPAY ==
[2022-01-26 17:34] VITALS: BP 128/81; PULSE 68; RESP 18; TEMP 36; O2SAT 98; BMI 30.4
--- NOTE | 2022-01-26 18:47 | CT_ITS ---
EXAM: CT ABDOMEN AND PELVIS WITH INTRAVENOUS CONTRAST : 1965 CLINICAL INDICATION: ruq abd pain TECHNIQUE: Helically acquired images were obtained of the abdomen and pelvis with intravenous contrast. This CT exam was performed using one or more of the following dose reduction techniques: automated exposure control, adjustment of the mA and/or kV according to patient size, and/or use of iterative reconstruction technique. This report was created using [employer] report generation technology. CONTRAST: IV 75mL Isovue-370 COMPARISON: 08/24/2020 FINDINGS: LOWER THORAX: Unremarkable. Lung bases are clear. No cardiomegaly. No significant pericardial effusion. ABDOMEN: LIVER: Unremarkable. Homogeneous. No focal mass. GALLBLADDER AND BILE DUCTS: There is a small metallic structure in the gallbladder fossa perhaps representing a surgical clip. There is no evidence of a cholecystectomy. The common bile duct is dilated measuring 1 cm. PANCREAS: Unremarkable. No focal cystic or solid mass. SPLEEN: Unremarkable. Normal size without focal cystic or solid mass. ADRENALS: Unremarkable. No nodules. KIDNEYS AND URETERS: Unremarkable. Normal renal size and position. No hydronephrosis. STOMACH AND BOWEL: Unremarkable. No stomach or bowel distention. No focal inflammatory change. PELVIS: APPENDIX: No evidence of acute appendicitis. BLADDER: Unremarkable. REPRODUCTIVE: There is a tubal ligation clips in the left hemipelvis. ABDOMEN and PELVIS: INTRAPERITONEAL SPACE: Unremarkable. No ascites or other fluid collection. No free air. BONES/JOINTS: Unremarkable. No suspicious lytic or blastic abnormality. SOFT TISSUES: Unremarkable. No discrete abdominal or pelvic wall hernia. VASCULATURE: Unremarkable. Abdominal aorta is non-dilated. LYMPH NODES: Unremarkable. No enlarged lymph nodes. CT/Abdomen/Pelvis W IV Cont ONLY IMPRESSION: Dilated common bile duct measuring 1 cm. There is no common duct stones or obvious inflammation identified. No other acute abnormalities are seen in the abdomen or pelvis. Individualized dose optimization techniques were used for this CT. at 1926 Reported and signed by: hSaquille Mims MD Electronically Signed: Shaquille Mims MD at 19:25 EST ,
--- NOTE | 2022-01-26 18:48 | ED.VIS.GI ---
HPI HPI - GI History of Present Illness Chief Complaint: Abd Pain Informant: patient Abdominal Pain/Flank Pain Onset: Days Context: Gradual Onset Timing: Continuous Quality: Sharp and Stabbing Location: RUQ Current Severity: Mild Maximum Severity: Moderate Worsened by: Nothing Relieved by: Nothing Nausea/Vomiting/Emesis GI Symptom: Positive for Nausea; Negative for Vomiting Severity: Mild Diarrhea/Melena/Hematochezia GI Symptom: Negative for Diarrhea, Melena and Hematochezia Associated Symptoms Associated Symptoms: Negative for Dysuria, Frequency, Hematuria and Urgency Narrative Narrative: 56-year-old female history of prior drug abuse 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 She is on Suboxone. Her only prior abdominal surgery was umbilical hernia and a tubal ligation. States she had right upper quadrant abdominal pain primarily since the second the last 4 to 5 days. She was seen in the emergency department on the second had a negative work-up at that time including a negative ultrasound. States the pains only gotten worse she denies any fever. Only in the right upper quadrant. Nausea no vomiting or diarrhea. No dysuria. Prior similar symptoms: Yes Recent Illness/Hospitalization: No PFSH PFSH Medical History Alcohol abuse Anxiety Depression Drug abuse Duodenitis Hearing loss, left Hearing loss, right Hepatitis Irregular heart beat Migraines Osteoporosis Smoker Home Medications buprenorphine-naloxone [Suboxone] 2 film SUBLINGUAL BID #0 ea 05/14/21 [Rx Last Taken Unknown] naproxen 500 mg PO BID #20 tab 01/22/22 [Rx Last Taken Unknown] ondansetron 4 mg PO Q8H PRN #10 tab 01/22/22 [Rx Last Taken Unknown] dicyclomine 10 mg PO 4X/DAY 01/26/22 [History Last Taken Unknown] Allergy/AdvReac Type Severity Reaction Status Date / Time No Known Allergies Allergy Verified 01/26/22 17:36 Social History Smoking Status: Current every day smoker tobacco type: cigarettes ROS ROS ED ROS Narrative Abdominal pain. Nausea. Review of Systems ROS Unobtainable: Denies due to encephalopathy Constitutional Constitutional ED: Denies fever(s) ENT ENT ED: Denies ear pain Cardiovascular Cardiovascular: Denies chest pain Respiratory/Chest Respiratory/Chest: Denies dyspnea Gastrointestinal Gastrointestinal: Reports abdominal pain and nausea; Denies constipation, diarrhea, melena or vomiting Genitourinary Genitourinary ED: Denies dysuria Musculoskeletal Musculoskeletal: Denies myalgias Integumentary Denies rash Neurologic Neurologic: Denies headache(s) Psychiatric Psychiatric: Denies depression Endocrine Endocrinology: Denies polyuria Hematologic/Lymphatic Hematologic/Lymphatic: Denies easy bruising Allergic/Immunologic Allergic/Immunologic ED: Denies urticaria EXAM Physical Exam Narrative Exam Narrative: Middle-aged female no acute distress. Vital signs stable afebrile. H EENT exam unremarkable. Neck nontender. Lungs clear to auscultation bilaterally. Heart regular rate and rhythm rate about 70 no murmur. Abdomen soft nondistended normal bowel sounds no peritoneal signs. She is tender in the right upper quadrant. Right lower and left side of abdomen nontender. No obstruction. Positive bowel sounds. Soft. No hernia or mass. No signs of obstruction. Moving all 4 extremities. Nontender no edema. Back nontender. Neurologic exam normal. Const Vital Signs: 01/26/22 17:34 01/26/22 22:00 Temperature 96.8 F L Temperature Source Temporal Pulse Rate 68 57 L Respiratory Rate 18 16 Blood Pressure 128/81 H 106/60 Blood Pressure Mean 96 75 Pulse Ox 98 94 Oxygen Delivery Method Room Air Room Air Positive well nourished, well developed and obese; Negative for cachectic, contractures or unkempt General Appearance ED: well developed and NAD; Negative for unkempt, cachectic, contractures or pallor Nutritional Appearance: obese; Negative for cachectic HEENT Reports moist mucous membranes normocephalic and atraumatic; Negative for trauma or tenderness Eyes PERRL and EOMs intact bilaterally General Eye ED: Negative for pale conjunctiva or scleral icterus Neck no lymphadenopathy, supple and no JVD General: Negative for tenderness Resp normal respiratory effort and clear to auscultation bilaterally Auscultation: Negative for rales, rhonchi or wheezes Cardio regular rate, regular rhythm, S1 normal heart sound, S2 normal heart sound and no murmurs GI non-distended and no masses; Negative for non-tender GI Narrative: Right upper quadrant tenderness only. Auscultation: normoactive bowel sounds Palpation: soft and tender; Negative for guarding or rigid Back/Spine no CVA tenderness General Back: Negative for CVA tenderness Cervical Spine: Negative for cervical spine tenderness Thoracic Spine / Upper Back: Negative for thoracic spinal tenderness Extremity full ROM General Extremety ED: Negative for edema or tenderness General Extremity: Negative for edema Neuro moves all extremities Sensorium / Orientation: alert, oriented to person, oriented to place and oriented to time; Negative for orientation impaired, confused, lethargic or stuporous Motor Exam: strength 5/5 throughout Psych mental status grossly normal and thought process normal Appearance: Negative for unkempt Skin no wounds General Skin Exam: Negative for jaundice or pallor Lesions: no lesions Rashes: no rashes MDM MDM MDM Narrative Medical decision making narrative: 56-year-old female complaining of right upper quadrant pain progressively getting worse the last 4 days. Had a recent work-up and ultrasound on the third which is basically unremarkable. She will be treated with IV Toradol for pain she does not do narcotics because she is recovering alcoholic and recovering history of heroin abuse. She also received Zofran for nausea. CAT scan and labs are pending. Repeat exam patient is doing well. We discussed all of her test results. She will be discharged home. Lab Data Attestation: I reviewed the patient's lab results. Lab results narrative: CBC shows a normal white count 7.4. H&H of 13 and 37. Normal platelets. Electrolytes unremarkable gap of 4 BUN of 21 creatinine 0.6. Glucose 107. Liver enzymes are normal. Lipase is 53. Urinalysis normal. No nitrates. No white cells. No bacteria. CAT scan showed dilated common bile duct but no stones or other acute abnormalities as read by the radiologist. Labs: Laboratory Results - last 24 hr 01/26/22 01/26/22 01/26/22 18:47 18:55 19:20 WBC 7.4 RBC 4.04 L Hgb 13.0 Hct 37.5 MCV 92.8 MCH 32.2 H MCHC 34.7 RDW Std Deviation 45.0 H RDW Coeff of Mamta 13.2 Plt Count 261 MPV 10.5 Immature Gran % (Auto) 0.300 Neut % (Auto) 56.2 Lymph % (Auto) 32.2 [place] % (Auto) 5.9 Eos % (Auto) 4.6 Baso % (Auto) 0.8 Absolute Neuts (auto) 4.2 Absolute Lymphs (auto) 2.39 Nucleated RBC % 0 Sodium 140 Potassium 3.8 Chloride 109 H Carbon Dioxide 27.0 Anion Gap 4 L BUN 21 H Creatinine 0.65 Estim Creat Clear Calc 83.45 Est GFR (MDRD) Af Amer 120 Est GFR (MDRD) Non-Af 99 BUN/Creatinine Ratio 32.1 H Glucose 107 H Calcium 8.8 Total Bilirubin 0.40 AST 12 L ALT 17 Alkaline Phosphatase 86 Total Protein 6.3 L Albumin 3.6 Globulin 2.7 Albumin/Globulin Ratio 1.3 Lipase 53 L Urine Color Yellow Urine Clarity Sl. Cloudy Urine pH 5.0 Ur Specific [place] 1.025 Urine Protein Negative Urine Glucose (UA) Normal Urine Ketones 5 H Urine Occult Blood 10 H Urine Nitrite Negative Urine Bilirubin Negative Urine Urobilinogen 1 H Ur Leukocyte Esterase 25 H Urine RBC 0-5 SEEN Urine WBC 0-5 SEEN Ur Squamous Epith Cells 0-5 SEEN Urine Bacteria 0 SEEN Urine Mucus 0 SEEN Radiography Diagnostic Testing: Clinical Impression(s) from Imaging Studies Abdomen/Pelvis CT 01/26/22 18:47 IMPRESSION: Dilated common bile duct measuring 1 cm. There is no common duct stones or obvious inflammation identified. No other acute abnormalities are seen in the abdomen or pelvis. Individualized dose optimization techniques were used for this CT. at 1926 Reported and signed by: Shaquille Mims MD Electronically Signed: Shaquille Mims MD at 19:25 EST Reading Location ID and State: [address] [place] [address] Tel , Service support , Discharge Plan Triage Chief Complaint: Abd Pain ED Provider: Dean Mendez Dx/Rx/DC Orders Prescriptions: No Action buprenorphine-naloxone [Suboxone] 4-1 mg Film 2 film SUBLINGUAL BID Qty: 0 RF: 0 ondansetron 4 mg tablet,disintegrating 4 mg PO Q8H PRN (Reason: nausea and vomiting) Qty: 10 RF: 0 naproxen 500 MG tablet 500 mg PO BID Qty: 20 RF: 0 dicyclomine 20 mg tablet 10 mg PO 4X/DAY RF: 0 Primary Care Provider: Earnest Rodriguez
[2022-01-26] MEDS: 0.9% Normal Saline 1,000 ML 1000 ML IV (18:55)
[2022-01-26] MEDS: Ondansetron 4 MG/2 ML Vial IV (18:55)
[2022-01-26] MEDS: Ketorolac 30 MG/ML Syringe IV (18:55)
[2022-01-26 19:06] LABS: Absolute Lymphocyte Count 2.39 X10^3/uL (0.83-4.51); Absolute Neutrophil Count 4.2 X10^3/uL (2.0-7.7); Basophil# 0.06 X10^3/uL; Basophil% 0.8 % (0-1); Eosinophil# 0.34 X10^3/uL; Eosinophils% 4.6 % (0-5); Hematocrit 37.5 % (37-47); Lymphocyte # 2.39 X10^3/ul (0.83-4.51); Lymphocyte % 32.2 % (19-41); Mean Corp Hgb Conc 34.7 g/dL (32-36); Mean Corpuscular Hgb 32.2 pg (27.0-32.0); Mean Corpuscular Volume 92.8 fL (81-99); Mean Platelet Vol. 10.5 fl (6.2-12.0); Monocyte# 0.44 X10^3/uL; Monocyte% 5.9 % (0-10); NRBC Flagged by Analyzer 0 % (0-5); Neutrophil # 4.17 X10^3/uL (2.7-7.7); Neutrophil % 56.2 % (47-70); Platelet Count 261 K/mm3 (150-450); RBC Distribution Width CV 13.2 % (11.6-14.6); Red Blood Count 4.04 M/mm3 (4.2-5.4); White Blood Count 7.4 K/mm3 (4.4-11.0)
[2022-01-26 19:31] LABS: ALB/GLOB Ratio 1.3 RATIO (0.9-2.4); AST(SGOT) 12 U/L (15-37); Alanine Aminotransfer ALT/SGPT 17 U/L (13-56); Albumin, Serum 3.6 g/dL (3.2-5.0); Alkaline Phosphatase 86 U/L (45-117); Anion Gap 4 (5-15); BUN 21 mg/dL (7-18); BUN/Creat Ratio 32.1 RATIO (10-20); Calcium,Total 8.8 mg/dL (8.5-10.1); Chloride 109 mmol/L (98-107); Creatinine, Serum 0.65 mg/dL (0.55-1.02); EST Glomerular Filtration Rate 99 mL/min (>60); Est Glom Filt Rate - Afr Amer 120 mL/min (>60); Estimated Creatinine Clearance 83.45 ml/min; Globulin 2.7 g/dL (2.2-4.2); Glucose 107 mg/dL (74-106); Lipase 53 U/L (73-393); Potassium 3.8 mmol/L (3.5-5.1); Protein, Total 6.3 g/dL (6.4-8.2); Sodium Level 140 mmol/L (136-145)
[2022-01-26 19:32] LABS: Bacteria 0 SEEN /hpf (None Seen); Mucous, Urine 0 SEEN /hpf (<or=2+)
[2022-01-26 19:33] LABS: Color, Urine Yellow (Yellow); Glucose, Dipstick Normal (Normal); Ketone-Dipstick 5 mg/dl (Negative); Leukocyte Esterase-Dipstick 25 /ul (Negative); Nitrite-Dipstick Negative (Negative); Occult Blood-Urine 10 /ul (Negative); Protein-Dipstick Negative (Negative); Specific Gravity, Urine 1.025 (1.002-1.030); Urine Bilirubin Dipstick Negative (Negative); Urine Clarity Sl. Cloudy (Clear); Urine Urobilinogen 1 mg/dl (Normal)
[2022-01-26 19:39] LABS: Red Blood Cells-Urine 0-5 SEEN /hpf (0-5); Squamous Epithelial Cells - UA 0-5 SEEN /hpf (5-10); White Blood Cells 0-5 SEEN /hpf (0-5)
[2022-01-26 22:00] VITALS: BP 106/60; PULSE 57; RESP 16; O2SAT 94
[2022-01-26 23:21] VITALS: BP 110/62; PULSE 68; RESP 16; O2SAT 97
== END 2022-01-26 23:22 | disposition home or self-care (01) ==
PROVIDERS: Emergency Provider Emergency Medicine; PCP Family Medicine; Visit Provider Emergency Medicine
DX: R10.11 Right upper quadrant pain (principal); R11.2 Nausea with vomiting, unspecified; K42.9 Umbilical hernia without obstruction or gangrene; F17.210 Nicotine dependence, cigarettes, uncomplicated; H91.93 Unspecified hearing loss, bilateral
CPT/HCPCS: 74177; 80053; 81001; 83690; 85025; 99283; J7030; Q9967; J2405

== ENCOUNTER 2022-03-06 10:16 | Emergency (ER) | payer MEDICARE, MEDICAID, SELFPAY ==
[2022-03-06 10:17] VITALS: BP 130/75; PULSE 55; RESP 18; TEMP 35.9; O2SAT 97; BMI 29.2
--- NOTE | 2022-03-06 10:26 | EKG12_ITS ---
Test Reason : FLANK PAIN Blood Pressure : / mmHG Vent. Rate : 050 BPM Atrial Rate : 050 BPM P-R Int : 168 ms QRS Dur : 086 ms QT Int : 434 ms P-R-T Axes : 070 049 051 degrees QTc Int : 395 ms Sinus bradycardia with sinus arrhythmia Otherwise normal ECG Confirmed by KELLIE CANTU, JUNITO ([id number]), greeting card editor CHELA DIAZ ([id number]) on 03/10/2022 1:48:05 PM Referred By: BRAXTON Confirmed By:PETER HOPKINS MD
--- NOTE | 2022-03-06 10:29 | EDS_ITS ---
HPI History of Present Illness Chief Complaint: Flank Pain Informant: patient Onset/Context/Timing Onset: Today (Abruptly got worse at 0400) and Month(s) Current Severity: Severe Maximum Severity: Severe Worsened by: Breathing Relieved by: Nothing Associated Symptoms Associated Symptoms: Shortness of breath and dyspnea on exertion Narrative Narrative: Patient 56-year-old woman who presents with abrupt onset of right flank pain. She was seen several times last month. Ultrasound of the right upper quadrant was remarkable for a dilated common bile duct with no visible stone. The kidney was normal with no hydronephrosis or renal calculi noted. Within several days a CAT scan was obtained and revealed no acute abnormality other than the dilated common bile duct. History is significant remarkable for COVID October 2021. She also had a booster shot 1 month ago. Recent article published that Covid infection with a 90-day should be considered risk factor for pulmonary embolus. She denies history of VTE, leg pain, swelling discoloration. She denies recent travel, surgery or immobilization. She denies fever, chills night sweats. She denies upper respiratory symptoms. She denies vomiting or diarrhea. She denies black or maroon-colored stool. She does report going smaller amounts more frequently. She does have a remote history of pyelonephritis. There is no history of trauma. Patient informed that she is on Suboxone. She is a recovering alcoholic. She does have history of pancreatitis. She also has history of drug abuse. Prior similar symptoms: Yes (The flank pain with abdominal pain. This is different.) Recent Illness/Hospitalization: Yes PFSH PFSH Medical History Alcohol abuse Anxiety Depression Drug abuse Duodenitis Hearing loss, left Hearing loss, right Hepatitis Irregular heart beat Migraines Osteoporosis Smoker Home Medications buprenorphine-naloxone [Suboxone] 2 film SUBLINGUAL BID #0 ea 05/14/21 [Rx Last Taken Unknown] naproxen 500 mg PO BID #20 tab 01/22/22 [Rx Last Taken Unknown] ondansetron 4 mg PO Q8H PRN #10 tab 01/22/22 [Rx Last Taken Unknown] dicyclomine 10 mg PO 4X/DAY 01/26/22 [History Last Taken Unknown] albuterol sulfate 90 mcg/actuation aerosol inhaler 2 puff INHALATION Q6H PRN 01/28/22 [History Last Taken Unknown] omeprazole 40 mg capsule,delayed release 40 mg PO DAILY #60 cap 01/28/22 [Rx Last Taken Unknown] sucralfate 1 gram tablet 1 g PO QACHS #60 tab 01/28/22 [Rx Last Taken Unknown] Allergy/AdvReac Type Severity Reaction Status Date / Time No Known Allergies Allergy Verified 01/28/22 10:01 Family History Mother Breast cancer Heart disease Hypertension Diabetes Father Cancer pt is unsure what kind of cancer Heart disease Hypertension Diabetes Sister Breast cancer Surgical History History of cataract surgery History of tubal ligation History of umbilical hernia repair Social History (Updated 03/06/22 @ 10:[address] Jeff Quinones MD) household members: none Smoking Status: Current every day smoker tobacco type: cigarettes alcohol intake: former details: Pt states has been sober for 5 months ROS ROS ED Constitutional Constitutional ED: Denies chills, fever(s), subjective, sweats or weight loss Eyes Eyes: Denies blurry vision, change in vision or diplopia ENT ENT ED: Denies ear pain, rhinorrhea or sore throat Cardiovascular Cardiovascular: Denies chest pain, orthopnea, palpitations, paroxysmal nocturnal dyspnea or racing heartbeat Respiratory/Chest Respiratory/Chest: Reports dyspnea and dyspnea on exertion; Denies cough, orthopnea, paroxysmal nocturnal dyspnea or sputum Gastrointestinal Gastrointestinal: Denies abdominal pain, constipation, diarrhea, melena, nausea or vomiting Genitourinary Genitourinary ED: Reports urinary frequency; Denies dysuria or hematuria Musculoskeletal Musculoskeletal: Reports back pain; Denies arthralgias, myalgias or neck pain Integumentary Denies Abrasions or rash Neurologic Neurologic: Denies headache(s) or weakness Psychiatric Psychiatric: Reports anxiety; Denies depression or suicidal thoughts Hematologic/Lymphatic Hematologic/Lymphatic: Denies anemia, easy bleeding, easy bruising or lymphadenopathy EXAM Physical Exam Const Vital Signs: 03/06/22 10:17 03/06/22 10:27 Temperature 96.7 F L Temperature Source Temporal Pulse Rate 55 L Respiratory Rate 18 Respiratory Effort Normal Respiratory Pattern Normal Blood Pressure 130/75 H Blood Pressure Mean 93 Pulse Ox 97 Oxygen Delivery Method Room Air Positive well nourished and well developed General Appearance ED: well developed; Negative for cyanotic, diaphoretic, NAD or pallor HEENT Reports TM's clear and moist mucous membranes; Denies dry mucous membranes HEENT Narrative: Ears normal. Nares patent. Uvula midline. No erythema or exudate. Negative for trauma or tenderness Tympanic Membrane ED: Yes TM's clear Mouth ED: No dry mucous membranes Mouth: No dry mucous membranes Eyes PERRL and EOMs intact bilaterally General Eye ED: Negative for pale conjunctiva or scleral icterus Neck no lymphadenopathy, supple and no JVD Chest Wall palpation of chest normal Resp normal respiratory effort and clear to auscultation bilaterally Effort and Inspection: other Patient does appear to splint when she takes a deep breath. Cardio regular rhythm, S1 normal heart sound, S2 normal heart sound and no murmurs Rate: bradycardia GI normal to inspection, nondistended, normoactive bowel sounds, non-tender and non-distended Palpation: soft Back/Spine no CVA tenderness Cervical Spine: Negative for cervical spine tenderness Thoracic Spine / Upper Back: Negative for thoracic spinal tenderness or paraspinal muscle tenderness Extremity normal to inspection Extremity Narrative: There is no asymmetry, swelling, discoloration, leg vein distention, palpable cords or tenderness along the distribution of the deep venous system. There is a lenticular rash noted on her legs and thighs. There is also a lenticular rash noted on her back. General Extremety ED: Negative for edema or tenderness General Extremity: Negative for edema Neuro oriented x3, CN's II-XII intact bilaterally and no sensory deficits noted Sensorium / Orientation: alert Motor Exam: strength 5/5 throughout Psych mental status grossly normal Skin No no rashes or lesions noted and no wounds Skin Narrative: Lenticular rash as previously described. General Skin Exam: Negative for jaundice or pallor MDM MDM MDM Narrative Medical decision making narrative: Differential diagnosis would include pulmonary embolus, pleurisy, exacerbation of her chronic pain and etiology since she is reporting frequency. Doubt ureteral lithiasis since she had a ultrasound and CAT scan within the past month that revealed no abnormality of the kidney or collecting system. Because patient has history of drug dependency and recovering alcoholic she was treated with Toradol for her pain. Case was discussed with Isac Hauser. He was informed the patient's history, physical and laboratory results. He informed that she had an appointment on February 24 which she failed to attend. Patient was informed all her lab results are normal. She was informed to contact Dr. Jaramillo for follow- up. Patient's pain improved with Toradol. Since there is concern for peptic ulcer disease she was not discharged with prescription for NSAID. Lab Data Attestation: I reviewed the patient's lab results. Lab results narrative: CBC, H&H and differential unremarkable. Comprehensive metabolic panel is unremarkable. Lipase is normal. D-dimer is less than 0.27, which is normal. Labs: Laboratory Results - last 24 hr 03/06/22 03/06/22 03/06/22 11:15 11:15 11:15 WBC 8.3 RBC 4.59 Hgb 14.1 Hct 41.9 MCV 91.3 MCH 30.7 MCHC 33.7 RDW Std Deviation 43.5 RDW Coeff of Mamta 13.0 Plt Count 268 MPV 10.0 Immature Gran % (Auto) 1.200 H Neut % (Auto) 64.9 Lymph % (Auto) 24.2 [place] % (Auto) 6.0 Eos % (Auto) 3.0 Baso % (Auto) 0.7 Absolute Neuts (auto) 5.4 Absolute Lymphs (auto) 2.01 Nucleated RBC % 0 D-Dimer Quant (PE/DVT) Cancelled Sodium 139 Potassium 4.3 Chloride 108 H Carbon Dioxide 29.0 Anion Gap 2 L BUN 17 Creatinine 0.57 Estim Creat Clear Calc 95.17 Est GFR (MDRD) Af Amer 141 Est GFR (MDRD) Non-Af 117 BUN/Creatinine Ratio 29.9 H Glucose 86 Calcium 9.1 Total Bilirubin 0.20 AST 12 L ALT 18 Alkaline Phosphatase 93 Total Protein 6.6 Albumin 3.6 Globulin 3.0 Albumin/Globulin Ratio 1.2 Lipase 63 L Urine Color Urine Clarity Urine pH Ur Specific [place] Urine Protein Urine Glucose (UA) Urine Ketones Urine Occult Blood Urine Nitrite Urine Bilirubin Urine Urobilinogen Ur Leukocyte Esterase Urine RBC Urine WBC Ur Squamous Epith Cells Amorphous Sediment Urine Bacteria Urine Mucus 03/06/22 03/06/22 11:30 11:38 WBC RBC Hgb Hct MCV MCH MCHC RDW Std Deviation RDW Coeff of Mam[place] Plt Count MPV Immature Gran % (Auto) Neut % (Auto) Lymph % (Auto) [place] % (Auto) Eos % (Auto) Baso % (Auto) Absolute Neuts (auto) Absolute Lymphs (auto) Nucleated RBC % D-Dimer Quant (PE/DVT) < 0.27 L Sodium Potassium Chloride Carbon Dioxide Anion Gap BUN Creatinine Estim Creat Clear Calc Est GFR (MDRD) Af Amer Est GFR (MDRD) Non-Af BUN/Creatinine Ratio Glucose Calcium Total Bilirubin AST ALT Alkaline Phosphatase Total Protein Albumin Globulin Albumin/Globulin Ratio Lipase Urine Color Yellow Urine Clarity Sl. Cloudy Urine pH 7.0 Ur Specific [place] 1.020 Urine Protein Negative Urine Glucose (UA) Normal Urine Ketones Negative Urine Occult Blood 10 H Urine Nitrite Negative Urine Bilirubin Negative Urine Urobilinogen Normal Ur Leukocyte Esterase Negative Urine RBC 0 SEEN Urine WBC 0 SEEN Ur Squamous Epith Cells 0 SEEN Amorphous Sediment 2+ Urine Bacteria 0 SEEN Urine Mucus 0 SEEN EKG Initial EKG: Attestation: I personally reviewed and interpreted this EKG as follows: Interpretation: Sinus Bradycardia (Ventricular rate is 50. Other than bradycardia the EKG is normal. Please R interval under 60 ms. QS duration 86 ms. QT duration 434 ms. [place] [facility] is normal.) Discharge Plan Triage Chief Complaint: Flank Pain ED Provider: Jeff Quinones Dx/Rx/DC Orders Clinical Impression: Acute abdominal pain in right flank, Pleuritic pain, Common bile duct dilatation Instructions: ED Pain, Acute, Uncertain Cause Prescriptions: No Action omeprazole 40 mg capsule,delayed release(DR/EC) 40 mg PO DAILY Qty: 60 RF: 1 sucralfate [Carafate] 1 gram tablet 1 g PO QACHS Qty: 60 RF: 0 albuterol sulfate 90 mcg/actuation HFA aerosol inhaler 2 puff inhalation Q6H PRNRF: 0 buprenorphine-naloxone [Suboxone] 4-1 mg Film 2 film SUBLINGUAL BID Qty: 0 RF: 0 ondansetron 4 mg tablet,disintegrating 4 mg PO Q8H PRN (Reason: nausea and vomiting) Qty: 10 RF: 0 naproxen 500 MG tablet 500 mg PO BID Qty: 20 RF: 0 dicyclomine 20 mg tablet 10 mg PO 4X/DAY RF: 0 Primary Care Provider: Earnest Rodriguez Referrals: Isac Hauser MD [STAFF PHYSICIAN] - 5-7 Days Earnest Rodriguez MD [Primary Care Provider] - Activity Restrictions/Additional Instructions: Call Dr. Isac Hauser's office today for follow-up appointment. Make sure you are able to keep that appointment. Disposition Disposition: Home, Self Care
[2022-03-06] MEDS: Ketorolac 15 MG/ML Vial IV (11:00)
[2022-03-06 11:20] LABS: Absolute Lymphocyte Count 2.01 X10^3/uL (0.83-4.51); Absolute Neutrophil Count 5.4 X10^3/uL (2.0-7.7); Basophil# 0.06 X10^3/uL; Basophil% 0.7 % (0-1); Eosinophil# 0.25 X10^3/uL; Hematocrit 41.9 % (37-47); Hemoglobin 14.1 g/dL (12.0-15.0); Lymphocyte # 2.01 X10^3/ul (0.83-4.51); Lymphocyte % 24.2 % (19-41); Mean Corp Hgb Conc 33.7 g/dL (32-36); Mean Corpuscular Hgb 30.7 pg (27.0-32.0); Mean Corpuscular Volume 91.3 fL (81-99); NRBC Flagged by Analyzer 0 % (0-5); Neutrophil # 5.39 X10^3/uL (2.7-7.7); Neutrophil % 64.9 % (47-70); Platelet Count 268 K/mm3 (150-450); RBC Distribution Width SD 43.5 fl (35.1-43.9); Red Blood Count 4.59 M/mm3 (4.2-5.4); White Blood Count 8.3 K/mm3 (4.4-11.0)
[2022-03-06 11:35] LABS: ALB/GLOB Ratio 1.2 RATIO (0.9-2.4); AST(SGOT) 12 U/L (15-37); Alanine Aminotransfer ALT/SGPT 18 U/L (13-56); Albumin, Serum 3.6 g/dL (3.2-5.0); Alkaline Phosphatase 93 U/L (45-117); Anion Gap 2 (5-15); BUN 17 mg/dL (7-18); BUN/Creat Ratio 29.9 RATIO (10-20); Calcium,Total 9.1 mg/dL (8.5-10.1); Chloride 108 mmol/L (98-107); Creatinine, Serum 0.57 mg/dL (0.55-1.02); EST Glomerular Filtration Rate 117 mL/min (>60); Est Glom Filt Rate - Afr Amer 141 mL/min (>60); Estimated Creatinine Clearance 95.17 ml/min; Glucose 86 mg/dL (74-106); Lipase 63 U/L (73-393); Potassium 4.3 mmol/L (3.5-5.1); Protein, Total 6.6 g/dL (6.4-8.2); Sodium Level 139 mmol/L (136-145)
[2022-03-06 11:46] LABS: Bacteria 0 SEEN /hpf (None Seen); Mucous, Urine 0 SEEN /hpf (<or=2+); Red Blood Cells-Urine 0 SEEN /hpf (0-5); Squamous Epithelial Cells - UA 0 SEEN /hpf (5-10); White Blood Cells 0 SEEN /hpf (0-5)
[2022-03-06 11:47] LABS: Color, Urine Yellow (Yellow); Glucose, Dipstick Normal (Normal); Ketone-Dipstick Negative (Negative); Leukocyte Esterase-Dipstick Negative /ul (Negative); Nitrite-Dipstick Negative (Negative); Occult Blood-Urine 10 /ul (Negative); Protein-Dipstick Negative (Negative); Urine Bilirubin Dipstick Negative (Negative); Urine Clarity Sl. Cloudy (Clear); Urine Urobilinogen Normal (Normal)
[2022-03-06 12:01] LABS: D-Dimer Quantitative (DVT/PE) < 0.27 FEU/ug/m (0.27-0.49)
[2022-03-06 12:03] LABS: Amorphous Sediment 2+
[2022-03-06 12:16] VITALS: PULSE 58; RESP 16; O2SAT 97
== END 2022-03-06 12:50 | disposition home or self-care (01) ==
PROVIDERS: Emergency Provider Emergency Medicine; PCP Family Medicine; Visit Provider Emergency Medicine
DX: R10.9 Unspecified abdominal pain (principal); R06.02 Shortness of breath; R07.81 Pleurodynia; K83.8 Other specified diseases of biliary tract; H91.93 Unspecified hearing loss, bilateral; F17.210 Nicotine dependence, cigarettes, uncomplicated
CPT/HCPCS: 80053; 81001; 83690; 85025; 85379; 93005; 96361; 96374; 99285; J7040; A4216

== ENCOUNTER 2022-06-18 10:24 | Emergency (ER) | payer MEDICARE, MEDICAID, SELFPAY ==
[2022-06-18 10:25] VITALS: PULSE 76; RESP 14; TEMP 36.6; O2SAT 97; BMI 29.5
[2022-06-18 10:26] VITALS: BP 115/61
--- NOTE | 2022-06-18 10:37 | EX.ED.UPPERE ---
HPI History of Present Illness Chief Complaint: Upper Extremity Injury Detail of Chief Complaint: Atraumatic right upper extremity pain x3 days Informant: patient Occured/Mechanism Mechanism/Context: Yes other see comment below Comment: Right upper extremity pain. There is no pain with motion or movement. Onset/Context/Timing Onset: Days (3 days ago) Context: Sudden Onset Timing: Continuous Quality of Pain: Dull and Aching Location: The entire right upper extremity. Current Severity: Moderate Maximum Severity: Severe Worsened by: Nothing specifically Relieved by: Movement Associated Symptoms Associated Symptoms: Negative for Parasthesia, Weakness or Loss of Funtion Narrative Narrative: Patient is a 56-year-old [id number] woman who has history of asthma, GERD and recovering opiate addict who specifically requested no opiates. She presents with atraumatic right upper extremity pain that is described as a throbbing sensation with tingling in all fingers. She states if she moves her right upper extremity she has no pain. She denies recent trauma. She believes she fractured the right elbow many years ago. She denies cardiac or respiratory symptoms. She denies neck pain. She denies loss of function. PFSH PFSH Medical History Alcohol abuse Anxiety Depression Drug abuse Duodenitis Hearing loss, left Hearing loss, right Hepatitis Irregular heart beat Migraines Osteoporosis Smoker Home Medications buprenorphine 4 mg-naloxone 1 mg sublingual film (Suboxone) 2 film sublingual BID detox #0 ea 05/14/21 [Rx Last Taken Unknown] naproxen 500 mg tablet 500 mg PO BID #20 tabs 01/22/22 [Rx Last Taken Unknown] ondansetron 4 mg disintegrating tablet 4 mg PO Q8H PRN nausea and vomiting #10 tabs 01/22/22 [Rx Last Taken Unknown] albuterol sulfate 90 mcg/actuation aerosol inhaler 2 puff inhalation Q6H PRN SOB 01/28/22 [History Last Taken Unknown] omeprazole 40 mg capsule,delayed release 40 mg PO DAILY #60 caps 01/28/22 [Rx Last Taken Unknown] naproxen 500 mg tablet 500 mg PO BID #14 tabs 06/18/22 [Rx Last Taken Unknown] Allergy/AdvReac Type Severity Reaction Status Date / Time No Known Allergies Allergy Verified 06/18/22 10:27 Family History Mother Breast cancer Heart disease Hypertension Diabetes Father Cancer pt is unsure what kind of cancer Heart disease Hypertension Diabetes Sister Breast cancer Surgical History History of cataract surgery History of tubal ligation History of umbilical hernia repair Social History (Updated 03/06/22 @ 10:[address] Jeff Quinones MD) household members: none Smoking Status: Current every day smoker tobacco type: cigarettes alcohol intake: former details: Pt states has been sober for 5 months EXAM Physical Exam Const Vital Signs: 06/18/22 10:25 06/18/22 10:26 Temperature 97.9 F Temperature Source Temporal Pulse Rate 76 Respiratory Rate 14 Blood Pressure 115/61 Blood Pressure Mean 79 Pulse Ox 97 Oxygen Delivery Method Room Air MDM MDM MDM Narrative Medical decision making narrative: Patient presents with atraumatic right arm. There is no evidence of neurovascular compromise. There is no evidence suggest that this is a cervical disc issue. The pain and symptoms are circumferential in the entire right upper extremity. Patient was medicated with Toradol. She reports marked improvement when reassessed at 1141. Patient was discharged prescription for Naprosyn. She was informed the cause of her pain is not certain. Discharge Plan Triage Chief Complaint: Upper Extremity Injury ED Provider: Jeff Quinones Dx/Rx/DC Orders Clinical Impression: Diffuse pain in right upper extremity, History of drug abuse, Paresthesia of right upper extremity Instructions: ED Pain, Acute, Uncertain Cause Prescriptions: New naproxen 500 mg tablet 500 mg PO BID Qty: 14 0RF No Action omeprazole 40 mg capsule,delayed release(DR/EC) 40 mg PO DAILY Qty: 60 1RF albuterol sulfate 90 mcg/actuation HFA aerosol inhaler 2 puff inhalation Q6H PRN (Reason: SOB) buprenorphine-naloxone [Suboxone] 4-1 mg Film 2 film SUBLINGUAL BID Qty: 0 0RF ondansetron 4 mg tablet,disintegrating 4 mg PO Q8H PRN (Reason: nausea and vomiting) Qty: 10 0RF naproxen 500 MG tablet 500 mg PO BID Qty: 20 0RF Primary Care Provider: Earnest Rodriguez Referrals: Earnest Rodriguez MD [Primary Care Provider] - 3-5 Days if not improving Disposition Disposition: Home, Self Care
[2022-06-18] MEDS: Ketorolac 30 MG/ML Syringe IM (10:42)
[2022-06-18 11:50] VITALS: BP 134/68; PULSE 71; RESP 15; O2SAT 98
== END 2022-06-18 11:52 | disposition home or self-care (01) ==
PROVIDERS: Emergency Provider Emergency Medicine; PCP Family Medicine; Visit Provider Emergency Medicine
DX: M79.621 Pain in right upper arm (principal); R20.2 Paresthesia of skin; F17.210 Nicotine dependence, cigarettes, uncomplicated; Z79.899 Other long term (current) drug therapy
CPT/HCPCS: 96372; 99282

== ENCOUNTER 2022-08-24 11:54 | Emergency (ER) | payer MEDICARE, MEDICAID, SELFPAY ==
[2022-08-24 11:56] VITALS: BP 114/77; PULSE 60; RESP 18; TEMP 36.2; O2SAT 100; BMI 27.2
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
[2022-08-24] MEDS: Orphenadrine 60 MG/2 ML Ampul IM (12:29)
[2022-08-24] MEDS: Ketorolac 60 MG/2 ML Vial IM (12:29)
== END 2022-08-24 13:04 | disposition home or self-care (01) ==
PROVIDERS: Emergency Provider Emergency Medicine; PCP Family Medicine; Visit Provider Emergency Medicine
DX: S16.1XXA Strain of muscle, fascia and tendon at neck level, initial encounter (principal); S46.812A Strain of other muscles, fascia and tendons at shoulder and upper arm level, left arm, initial encounter; V49.40XA Driver injured in collision with unspecified motor vehicles in traffic accident, initial encounter; Y92.410 Unspecified street and highway as the place of occurrence of the external cause; F17.210 Nicotine dependence, cigarettes, uncomplicated; S30.1XXA Contusion of abdominal wall, initial encounter; M54.9 Dorsalgia, unspecified; H91.93 Unspecified hearing loss, bilateral; S29.012A Strain of muscle and tendon of back wall of thorax, initial encounter
CPT/HCPCS: 72040; 96372; 99282

== ENCOUNTER 2022-09-06 12:10 | Emergency (ER) | payer MEDICARE, MEDICAID, SELFPAY ==
[2022-09-06 12:11] VITALS: BP 126/86; PULSE 69; RESP 17; TEMP 36.1; O2SAT 97; BMI 28.0
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
== END 2022-09-06 12:48 | disposition home or self-care (01) ==
PROVIDERS: Emergency Provider Emergency Medicine; PCP Family Medicine; Visit Provider Emergency Medicine
DX: S39.012A Strain of muscle, fascia and tendon of lower back, initial encounter (principal); F17.210 Nicotine dependence, cigarettes, uncomplicated; V43.52XA Car driver injured in collision with other type car in traffic accident, initial encounter
CPT/HCPCS: 99282

== ENCOUNTER → 2023-02-25 | Outpatient (CLI) | payer MEDICARE, MEDICAID, SELFPAY ==
--- NOTE | 2023-02-25 14:04 | US_ITS ---
INDICATION: /ENLARGED UTERUS ON EXAM EXAMINATION: Ultrasound US Pelvis Non-OB Complete TECHNIQUE: Transabdominal pelvic ultrasound was performed. Grayscale, spectral waveform, and color flow Doppler evaluation of the adnexa. COMPARISON: CT dated January 26, 2022 FINDINGS: UTERUS: Anteverted. The uterus measures 8.9 x 3.1 x 4.5 cm. There is no uterine mass. The endometrial stripe measures 3.7 mm in AP diameter which is within normal limits. RIGHT OVARY: There is nonvisualization of the right ovary LEFT OVARY: 1.9 x 1.4 x 1.5 cm. Non-enlarged, normal echogenicity. There is normal arterial inflow and venous outflow present in the left ovary. FREE FLUID: None. The urinary bladder volume measures 536 cc. No masses are visualized. No bladder wall thickening is seen. US/Pelvic (Non ) IMPRESSION: Nonvisualization of the right ovary secondary to overlying bowel gas otherwise within normal limits examination. Electronically Signed: Nancy Jackson MD at 9:37 EDT ,
== END | disposition home or self-care (01) ==
LOC: US 14:03
PROVIDERS: PCP Family Medicine; Referring Provider Urology; Visit Provider Urology
DX: Z01.411 Encounter for gynecological examination (general) (routine) with abnormal findings (principal); N85.2 Hypertrophy of uterus
CPT/HCPCS: 76856

== ENCOUNTER 2023-07-31 09:10 | Observation (INO) | payer MEDICARE, MEDICAID, SELFPAY ==
--- NOTE | 2023-07-26 11:17 | HP.PCM_ITS ---
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 Is patient in pain?: No Allergies No Known Allergies Allergy (Verified 07/23/23 15:38) Medications buprenorphine 4 mg-naloxone 1 mg sublingual film (Suboxone) 2 film sublingual BID detox #0 ea 05/14/21 [Rx Confirmed 07/23/23] naproxen 500 mg tablet 500 mg PO BID #20 tabs 01/22/22 [Rx Confirmed 07/23/23] ondansetron 4 mg disintegrating tablet 4 mg PO Q8H PRN nausea and vomiting #10 tabs 01/22/22 [Rx Confirmed 07/23/23] albuterol sulfate 90 mcg/actuation aerosol inhaler 2 puff inhalation Q6H PRN SOB 01/28/22 [History Confirmed 07/23/23] Post menopausal: No Patient : No : No PFSH Medical History Alcohol abuse Anxiety Depression Drug abuse Duodenitis Hearing loss, left Hearing loss, right Hepatitis Irregular heart beat Migraines Osteoporosis Smoker Surgical History (Updated 06/12/23 @ 10:40 by Mima Aguiar) History of cataract surgery History of tubal ligation History of umbilical hernia repair Hx of hand surgery Family History (Updated 06/12/23 @ 10:43 by Mima Aguiar) Mother Breast cancer Heart disease Hypertension DiabetesFather Cancer pt is unsure what kind of cancer Heart disease Hypertension DiabetesSister Breast cancerSister Ovarian cancer Social History (Updated 06/12/23 @ 10:44 by Mima Aguiar) adopted: No household members: none number of children: 6 current occupational status: unemployed pets and animals: Yes pets and animals: cat(s) sexually active: No Smoking Status: Current every day smoker tobacco type: cigarettes alcohol intake: former details: pt sober since 2020 caffeine: Yes seatbelt use: always do you feel safe at home: Yes HPI TCHBS or LAVHBSO [place] combo Details: KAMI WATTS is a 58 year old who presents for preop visit for hysterectomy has prolapse planning combo case with brittanie luong vb discharge. ROS Eyes Eyes: Denies system reviewed and no additional complaints, except as documented, as per HPI, blurry vision, change in vision, diplopia, dry eyes, irritation, loss of peripheral vision, photophobia, spots in vision or other ENT ENT: Reports system reviewed and no additional complaints, except as documented Cardio Card: Denies chest pain Resp Resp: Denies cough or dyspnea GI GI: Denies abdominal pain, bloating, change in stool character, constipation, fecal incontinence, nausea or vomiting : Reports prolapse symptoms, urinary incontinence and vaginal dryness; Denies pelvic pain, sexual dysfunction, urinary frequency, urinary urgency, vaginal discharge, vaginal odor or vaginal pruritus Musc Musc: Denies arthralgias, back pain or muscle weakness Skin Skin/Breast: Denies system reviewed and no additional complaints, except as documented, as per HPI, acne, alopecia, change in hair, nail changes, change in pigmentation, changing lesions, dry skin, hirsutism, jaundice, lesions, new lesions, pruritus, rash, sores, breast mass, breast pain, breast skin changes or other Neuro Neuro: Reports system reviewed and no additional complaints, except as documented Psych Psych: Denies anxiety or depression Endo Endo: Denies cold intolerance, excessive sweating, heat intolerance or polydipsia [place]/Lymph Hematologic/Lymphatic: Denies system reviewed and no additional complaints, except as documented, Denies as per HPI, Denies easy bleeding, Denies easy bruising, Denies lymphadenopathy and Denies other Exam Const General: cooperative, healthy appearing, comfortable, no acute distress and well developed Orientation: alert [facility] Head: normal to inspection, normocephalic and atraumatic Ears: hearing grossly normal bilaterally and external ears normal Nose: external nose normal and nares normal Face and sinus: normal facial exam Neck Neck: normal visual inspection, full ROM, no lymphadenopathy and trachea midline Thyroid: thyroid normal Chest Chest palpation & inspection: normal inspection of the chest Resp Effort & Inspection: normal respiratory effort Auscultation: clear to auscultation bilaterally Cardio Rate: regular rate Rhythm: regular rhythm Heart Sounds: S1 normal and S2 normal GI Inspection: normal to inspection and non-distended Palpation: soft, no hepatosplenomegaly, no hepatomegaly, not rigid and nontender General: bladder normal to palpation External Female Exam: abnormal external appearance (atrophic introitus), normal appearance of the urethra and no lesions Urethra: normal appearance of the urethra Speculum Exam - Vagina: abnormal appearance of the vagina, normal vaginal discharge, vagina atrophic and no lesions Speculum Exam - Cervix: normal appearance of the cervix Bimanual Exam- Vagina & Uterus: normal bimanual exam, uterine size normal, bladder normal to palpation, uterine shape normal, uterine mobility normal and non-tender Bimanual Exam- Adnexa, other: normal adnexae, no masses, rectocele (II-III), cystocele (III) and vaginal apex descent Pelvic Support: cystocele (III), rectocele (II-III) and vaginal apex descent Musc Other: gross motor intact no deficits, full bilateral strength Skin General: no rashes or lesions noted and atrophy Neuro General: patient alert, patient awake, moves all extremities and no focal motor deficits Motor: muscle tone normal throughout Extrem General: normal to inspection and no pedal edema Psych Appearance: grossly normal Mental Status: mental status grossly normal Affect: normal affect Speech and Movement: speech and movement normal Coding Level of Care Code No Charge Diagnoses Family history of ovarian cancer Z80.41 Cystocele with incomplete uterovaginal prolapse N81.2 History of drug abuse F19.11 Assessment and Plan Assessment and Plan (1) Family history of ovarian cancer: Status: Acute Comment: patient sister had genetic testing and pt states was not genetic, if not done needs empower to determine if needs TVHBS (2) Cystocele with incomplete uterovaginal prolapse: Status: Acute Comment: plan combo case with brittanie TVHBS (3) History of drug abuse: Status: Chronic Comment: Suboxone. Dr Grimes. Plan After discussing the patient's diagnosis and treatment plan options, patient wishes to proceed with surgical management. I have discussed with the patient the risks, benefits, and alternatives of the procedure which include but are not limited to risks of anesthesia, bleeding, infection, possible damage to bowel, bladder, or surrounding vasculature which could lead to additional surgery to evaluate any complications. Patient agrees to procedure and wishes to proceed. ACOG/uptodate references given for additional information regarding procedure.
[2023-07-28 12:46] LABS: Hematocrit 43.7 % (37-47); Hemoglobin 14.7 g/dL (12.0-15.0); Mean Corp Hgb Conc 33.6 g/dL (32-36); Mean Corpuscular Volume 95.2 fL (81-99); Mean Platelet Vol. 9.5 fl (6.2-12.0); Platelet Count 279 K/mm3 (150-450); RBC Distribution Width CV 12.9 % (11.6-14.6); RBC Distribution Width SD 45.7 fl (35.1-43.9); Red Blood Count 4.59 M/mm3 (4.2-5.4); White Blood Count 7.5 K/mm3 (4.4-11.0)
--- NOTE | 2023-07-28 12:55 | EKG12_ITS ---
Test Reason : PREOP Blood Pressure : / mmHG Vent. Rate : 066 BPM Atrial Rate : 066 BPM P-R Int : 154 ms QRS Dur : 084 ms QT Int : 390 ms P-R-T Axes : 065 027 069 degrees QTc Int : 408 ms Normal sinus rhythm Normal ECG Confirmed by KORTNEY CANTU, RAFAEL ([id number]), editor map ELDON DOMINIQUE ([id number]) on 07/31/2023 1:57:56 PM Referred By: Amita Restrepo Confirmed By:RAFAEL SHEETS MD
[2023-07-28 13:16] LABS: ALB/GLOB Ratio 1.3 RATIO (0.9-2.4); AST(SGOT) 13 U/L (15-37); Alanine Aminotransfer ALT/SGPT 18 U/L (13-56); Albumin, Serum 4.2 g/dL (3.2-5.0); Alkaline Phosphatase 97 U/L (45-117); Anion Gap 4 (5-15); BUN 16 mg/dL (7-18); Calcium,Total 9.1 mg/dL (8.5-10.1); Chloride 107 mmol/L (98-107); Creatinine, Serum 0.57 mg/dL (0.55-1.02); EST Glomerular Filtration Rate 115 mL/min (>60); Est Glom Filt Rate - Afr Amer 140 mL/min (>60); Globulin 3.2 g/dL (2.2-4.2); Glucose 91 mg/dL (74-106); Magnesium 2.1 mg/dL (1.6-2.6); Potassium 4.2 mmol/L (3.5-5.1); Protein, Total 7.4 g/dL (6.4-8.2); Sodium Level 137 mmol/L (136-145)
[2023-07-31] VITALS (17 sets, daily range): BP systolic 102–147; BP diastolic 63–93; PULSE 56–97; RESP 15–18; TEMP 36.1–37.1; O2SAT 90–100; BMI 29.9
--- NOTE | 2023-07-31 | HYST_PTH ---
PATIENT: KAMI WATTS LOC: MS3 U#:[id number] AGE/SX: 58/F ROOM: CO315 RE07/31/[address]: Dr. Amita Restrepo MD : [id number] BED: 1 DIS: 08/01/2023 SPEC #: [id number] RECD: 07/31/23 13:35 STATUS: DALLIN ARGUETA #: [id number] DEEPALI: 07/31/23 00:[address]: Amita Restrepo DEPT: SURGICAL PATHOLOGY RECD BY: Jorge Biggs ENTERED: 08/03/23 10:20 SP TYPE: HYSTERECT OTHR DR: MD Dr. Earnest Fuentes MD Tissues: Uterus, NOS Procedures: Surgery Specimen Level V HEADER OPERATION: ERAS, vaginal hysterectomy, right fallopian tube PRE-OP DIAGNOSIS: cystocele with uterovaginal prolapse TISSUE SUBMITTED: Uterus, cervix and right fallopian tube MICROSCOPIC DIAGNOSIS Uterus, cervix and right fallopian tube, vaginal hysterectomy and right salpingectomy: Cervix - chronic cystic cervicitis and squamous metaplasia. Endometrium - inactive endometrium. Myometrium - focal superficial adenomyosis. Right fallopian tube - no pathologic diagnosis. SWAPNA:ruby 08/04/2023 MICROSCOPIC DESCRIPTION Slides are reviewed. GROSS DESCRIPTION Received in fixative is one container labeled with the patient's name and designated uterus. The specimen consists of a uterus with attached cervix measuring 8.0 x 4.0 x 3.5 cm and weighing 58 gm. The endocervical canal measures 3.0 cm in length and is grossly unremarkable. The triangular endometrial cavity measures 2.5 x 1.5 cm. The light miller endometrium measures up to 0.2 cm in thickness. The myometrium measures 1.5 cm in average thickness and is free of mass lesions. Present free in the container is a segment of fallopian tube measuring 3.0 cm in length and 0.6 cm in average diameter. [employer] sections are submitted as follows: 1 - anterior cervix, 2 - posterior cervix, 3 & 4 - anterior myometrial wall, 5 & 6 - posterior myometrial wall, 7 - right fallopian tube. / AM:ruby 08/03/2023 TC:5 CPT: 24146
[2023-07-31] MEDS: Scopolamine 1mg/72hr Patch 1 PATCH TD (07:00)
[2023-07-31] MEDS: Magnesium 1 GM over 15 mins IV (07:01)
[2023-07-31] MEDS: Acetaminophen 500 MG Tablet 1000 MG PO ×2 (07:01→18:05)
[2023-07-31] MEDS: Enoxaparin 40 MG/0.4 ML Syringe SC (07:01)
[2023-07-31] MEDS: Celecoxib 200 MG Capsule 400 MG PO (07:01)
[2023-07-31] MEDS: Gabapentin 600 MG Tablet PO (07:01)
[2023-07-31] MEDS: Phenazopyridine 95 MG Tablet 190 MG PO (07:01)
[2023-07-31] MEDS: Lactated Ringers 1,000 ML 40 ML IV ×3 (07:01→14:19)
[2023-07-31 07:07] LABS: Bedside Glucose 96 mg/dL (74-106)
[2023-07-31] MEDS: dexAMETHasone 4 MG/ML Vial 8 MG IV (07:21)
[2023-07-31] MEDS: Cefazolin 2 GM in 0.9% Normal Saline 100 ML IV (09:00)
--- NOTE | 2023-07-31 09:09 | OP.PCM_ITS ---
Problems Associated Problem List Diagnoses (1) Family history of ovarian cancer: (2) Cystocele with incomplete uterovaginal prolapse: (3) History of drug abuse: Report of Operation Date of Procedure: 07/31/23 Pre-Operative Diagnosis: see PL Post-Operative Diagnosis: same Surgery/Procedure Performed:: TVH RS Description of Surgical Findings:: nl uterus tubes ovaries Surgeon: Amita Restrepo Type of Anesthesia: General Specimen's removed: uterus, right tube Drains: jade Estimated Blood Loss (mL): 200 Fluids Replaced: crystalloid Description of Procedure: Patient was taken to the operating room and was placed under general anesthesia was prepped and draped in normal sterile fashion in the dorsal lithotomy position. Preoperative antibiotics and SCDs and Jade catheter was placed insid e the bladder. Weighted speculum was placed in the vagina and the anterior and posterior lip of the cervix was grasped with 2 Abdulaziz clamps and circumferentially injected with dilute vasopressin. A circumferential incision was made with a scalpel and the posterior cul-de-sac was entered into sharply and a longneck speculum was placed. The anterior cul-de-sac was also dissected down and entered into sharply and the uterosacral ligaments were clamped cut and suture ligated bilaterally followed by the cardinal ligaments which were Clamped cut and suture ligated bilaterally with 0 Monocryl. The uterus serially descended and progressive bites were taken bilaterally up to the level of the utero-ovarian ligament bilaterally which was clamped transected and double ligated with 0 Monocryl suture and 0 Vicryl free tie. Bilateral fallopian tubes and ovaries were visualized and noted be within normal limits and right tube was easily removed right ovarian pedicle unable to be reached due to anatomic location, excellent hemostasis was noted. left tube and ovary were outside of the immediate safe operative area and unable to be removed. The vagina was closed with [id number] 0 Vicryl pop offs including the posterior and anterior peritoneum in the reapproximation. Excellent hemostasis was noted. Then Dr. Molina began her portion of the procedure. Grafts/Implants Used: none Complications none Admit VTE Documentation VTE Present on Admission: No VTE Mechan Device Prophylaxis: SCD's VTE Pharm Prophylaxis ordered?: Yes Multi Select Codes Urinary/Genital Urinary/Genital CPT Codes: 57660 TVH+BS/O <250gr uterus
--- NOTE | 2023-07-31 09:10 | PCM.DC ---
Discharge Instructions Diet Discharge Diet: No restrictions Activity Discharge Activity: Return to Normal Activity, May Not Drive (while taking narcotic pain medications.) and May Shower May resume sexual activity in: 6-8 weeks Dressing / Incision Call your doctor if your incision/area has: Continuous Slow Oozing, Sudden Increased Bleeding, Increased Pain/ Swelling, Increased Redness and Foul Smelling Discharge Call your doctor if you observe: Fever of 101 or Higher, Inability to urinate, Inability to have a bowel movement and Using more than 1 pad per hour Follow Up Care Please Follow Up With: Amita Restrepo MD Test Results: Test results from this visit will be discussed in further detail at your follow-up appointment, if applicable. Discharge Plan Admission Admit Date/Time: 07/31/23 09:10 Attending Provider: Amita Restrepo Primary Care Provider: Earnest Rodriguez Consulting Providers: Cydney Molina Discharge Orders/Prescriptions Prescriptions: New oxycodone-acetaminophen [Percocet] 5-325 mg tablet 1 tab PO Q6H PRN (Reason: pain) 7 Days Qty: 20 0RF naproxen [naproxen] 500 mg tablet 500 mg PO BID PRN PRN (Reason: Pain) Qty: 30 1RF Continued albuterol sulfate 90 mcg/actuation HFA aerosol inhaler 2 puff inhalation Q6H PRN (Reason: SOB) buprenorphine-naloxone [Suboxone] 4-1 mg Film 2 film SUBLINGUAL BID Qty: 0 0RF ondansetron 4 mg tablet,disintegrating 4 mg PO Q8H PRN (Reason: nausea and vomiting) Qty: 10 0RF Other Ambulatory Orders: 12 Lead EKG (Routine) Timeframe: [id number] Facility: [facility] - Location: Cardiovascular Services Ordered By: Dr. Amita Restrepo Referrals / Follow Up: Earnest Rodriguez MD [Primary Care Provider] - Disposition Disposition (needs filled in before D/C Order can be placed): Home, Self Care
--- NOTE | 2023-07-31 09:46 | OP.PCM_ITS ---
Report of Operation Date of Procedure: 07/31/23 Pre-Operative Diagnosis: Incomplete uterovaginal prolapse Post-Operative Diagnosis: Same Surgery/Procedure Performed:: Anterior repair, posterior repair, right sacrospinous ligament fixation, cystoscopy with bilateral ureteral cath eterization Surgeon: Cyndey Molina Type of Anesthesia: General Estimated Blood Loss (mL): 20 cc Description of Procedure: The patient is a 58-year-old female with utero vaginal prolapse who presents for surgical intervention. Informed consent has been obtained. The patient was taken to the operating room and placed on the operating room table. Anesthesia monitored the head, neck, airway, IV access and vital signs throughout the case. Once anesthesia was appropriately administered, a Mcrae catheter was inserted to straight drain. Dr. Restrepo performed her portion of the procedure and the vaginal cuff was closed. At this time laxity was identified in the posterior vaginal wall along with the perineal body and the anterior vaginal wall. There was some apical support, but this was lax. The decision was made to place a sacrospinous ligament from the posterior aspect secondary to the cuff line positioning. The posterior submucosa was injected with vasopressin and a midline incision was made. Sharp and blunt dissection was performed bilaterally until the rectovaginal fascia was identified. At this time on the right side, dissection continued towards the apex until the sacrospinous ligament was identified and freed from surrounding tissues. Using a See device, an Ethibond suture was passed through the sacrospinous ligament and was then brought through the the vaginal mucosa at the apex and full-thickness fashion. The suture was tied into position. There is essentially no change in the apical positioning, but there was more support. At this time the rectovaginal fascia was brought together in a 2 layer closure using 2-0 Vicryl. The perineal body was then reconstructed. The incision was then closed with running interlocking 2-0 Vicryl. A cystourethroscopy was then performed. The cystoscope was inserted through the urethra under direct visualization into the urinary bladder, following Mcrae catheter removal. The bladder mucosa in its entirety was visualized revealing no injury, foreign body or mucosal abnormality. A 5 [place] whistle-tip catheter was used to gently cannulate each ureteral orifice and the catheter extended to 20 cm bilaterally without difficulty confirming no evidence of injury or obstruction. At this time attention was turned towards the anterior vaginal wall where the submucosa was once again infiltrated with vasopressin and a midline incision was made. Sharp and blunt dissection was performed bilaterally until the pubocervical fascia was identified. This was then brought together in a 2 layer closure with interrupted suture. At the completion of this, the midline incision was closed using running interlocking 2-0 Vicryl. Once again the catheter was removed and the cystoscope was inserted through the urethra under direct visualization. There was no evidence of injury to the urinary bladder. The whistle-tip catheter was easily advanced to 20 cm through each ureteral orifice without difficulty. At this time the cystoscope was removed and the Mcrae catheter was replaced and the balloon was inflated with 10 cc of water. The vagina was then packed with vaginal packing and estrogen cream. She was awakened and taken to the recovery room in good condition. There were no complications during this procedure. Complications None Admit VTE Documentation VTE Present on Admission: Yes VTE Mechan Device Prophylaxis: SCD's VTE Pharm Prophylaxis ordered?: Yes
--- NOTE | 2023-07-31 09:47 | EX.PCM.DISCH ---
Discharge Instructions Diet Discharge Diet: No restrictions Activity Discharge Activity: May Not Drive (For 2 weeks) and May Shower May resume sexual activity in: 8 weeks Lifting Restrictions: 5 pounds Additional Activity Instructions:: No strenuous activity or exercise, no swimming/hot tubs/tub bathing, no sexual activity Dressing / Incision Call your doctor if your incision/area has: Continuous Slow Oozing, Sudden Increased Bleeding, Increased Pain/ Swelling, Increased Redness and Foul Smelling Discharge Call your doctor if you observe: Fever of 101 or Higher, Inability to urinate, Inability to have a bowel movement and Using more than 1 pad per hour Follow Up Care Please Follow Up With: Amita Restrepo MD When: , the office will call with instructions Test Results: Test results from this visit will be discussed in further detail at your follow-up appointment, if applicable. Discharge Plan Admission Admit Date/Time: 07/31/23 09:10 Attending Provider: Amita Restrepo Primary Care Provider: Earnest Rodriguez Consulting Providers: Cydney Molina Discharge Orders/Prescriptions Prescriptions: New oxycodone-acetaminophen [Percocet] 5-325 mg tablet 1 tab PO Q6H PRN (Reason: pain) 7 Days Qty: 20 0RF naproxen [naproxen] 500 mg tablet 500 mg PO BID PRN PRN (Reason: Pain) Qty: 30 1RF cephalexin [cephalexin] 500 mg capsule 500 mg PO Q12 3 Days Qty: 6 0RF Continued albuterol sulfate 90 mcg/actuation HFA aerosol inhaler 2 puff inhalation Q6H PRN (Reason: SOB) buprenorphine-naloxone [Suboxone] 4-1 mg Film 2 film SUBLINGUAL BID Qty: 0 0RF ondansetron 4 mg tablet,disintegrating 4 mg PO Q8H PRN (Reason: nausea and vomiting) Qty: 10 0RF Other Ambulatory Orders: 12 Lead EKG (Routine) Timeframe: [id number] Facility: [facility] - Location: Cardiovascular Services Ordered By: Dr. Amita Restrepo Referrals / Follow Up: Earnest Rodriguez MD [Primary Care Provider] - Disposition Disposition (needs filled in before D/C Order can be placed): Home, Self Care
[2023-07-31] MEDS: Vasopressin 20 UNITS/ML Vial (11:33)
[2023-07-31] MEDS: Estrogens,Conj. 1 Tube 1 DOSE (11:38)
[2023-07-31] MEDS: Ketorolac 30 MG/ML Syringe IV ×2 (15:51→21:49)
[2023-07-31] MEDS: BUPRENORPHINE HCL/NALOXONE HCL 1 EACH FILM SL (18:29)
[2023-07-31] MEDS: Docusate Sodium 100 MG Capsule PO (21:49)
[2023-08-01] MEDS: Acetaminophen 500 MG Tablet 1000 MG PO ×3 (00:31→12:02)
[2023-08-01 03:00] VITALS: BP 100/64; PULSE 60; RESP 14; TEMP 36.7; O2SAT 97
[2023-08-01] MEDS: Ketorolac 30 MG/ML Syringe IV ×2 (03:37→11:02)
[2023-08-01 07:56] LABS: Hematocrit 38.5 % (37-47); Hemoglobin 12.6 g/dL (12.0-15.0); Mean Corp Hgb Conc 32.7 g/dL (32-36); Mean Corpuscular Hgb 32.1 pg (27.0-32.0); Mean Platelet Vol. 10.3 fl (6.2-12.0); Platelet Count 287 K/mm3 (150-450); RBC Distribution Width CV 13.1 % (11.6-14.6); RBC Distribution Width SD 47.7 fl (35.1-43.9); Red Blood Count 3.93 M/mm3 (4.2-5.4); White Blood Count 12.6 K/mm3 (4.4-11.0)
[2023-08-01] MEDS: BUPRENORPHINE HCL/NALOXONE HCL 1 EACH FILM SL (08:14)
[2023-08-01 08:15] VITALS: O2SAT 95
[2023-08-01] MEDS: Ensure Plus High Protein 120 ML LIQUID PO ×2 (08:17→11:03)
[2023-08-01] MEDS: Docusate Sodium 100 MG Capsule PO (08:17)
[2023-08-01] MEDS: Enoxaparin 40 MG/0.4 ML Syringe SC (08:18)
[2023-08-01 09:00] VITALS: BP 99/65; PULSE 88; RESP 16; TEMP 36.8; O2SAT 99
[2023-08-01 09:03] VITALS: BP 99/65; PULSE 88; RESP 18; TEMP 36.8; O2SAT 97
--- NOTE | 2023-08-01 09:44 | PN.URO_ITS ---
Subjective Subjective Doing well, no issues overnight. Asking for nicotine patch. Objective Data Objective Data Vital Signs: Vital Signs Temp Pulse Resp BP Pulse Ox O2 Del Method O2 Flow Rate 98.2 F 88 18 99/65 97 Room Air 2 08/01/23 09:03 08/01/23 09:03 08/01/23 09:03 08/01/23 09:03 08/01/23 09:03 08/01/23 09:03 07/31/23 17:00 Oxygen Flow Rate (L/min) 2 Oxygen Delivery Method Room Air Weight: 79 kg Body Mass Index (BMI) 29.9 Intake & Output: Intake and Output for Last 24 Hours 07/30/23 07/31/23 08/01/23 23:59 23:59 23:59 Intake Total 2612 / 3112 1500 / 1500 Output Total 560 / 1110 1050 / 1050 Balance 2051 450 / 450 Lab / Micro Data 08/01/23 07:17 07/28/23 12:27 Labs: Laboratory Results - last 24 hr 08/01/23 07:17: WBC 12.6 H, RBC 3.93 L, Hgb 12.6, Hct 38.5, MCV 98.0, MCH 32.1 H , MCHC 32.7, RDW Std Deviation 47.7 H, RDW Coeff of Mamta 13.1, Plt Count 287, MPV 10.3 Physical Exam Narrative Urine clear. catheter and packing removed without incident. Const alert, oriented x3 and no apparent distress Assessment & Plan Assessment/Plan (1) Cystocele with incomplete uterovaginal prolapse: PLAN: Plan trial of void supportive correction later today
--- NOTE | 2023-08-01 11:20 | CASEMGMT ---
RN DEON NOTE: Intro role of CM to patient and [facility] form explained re: Observation status for treatment of vaginal hysterectomy.? Explained hospitalization will be paid per?her insurance policy for Outpatient billing?and condition will continue to be evaluated for Inpt necessity. Also let pt know that [facility] sends paper in the billing packet with their phone number if questions arise. Discussed Pharmacy section of [facility] form and self administered medication guideline.? Pt verbalizes understanding and does not have further questions. ?Form signed, copy made and placed in chart, and original given to pt. Pt denies having any discharge planning needs or concerns. Long GARSIA RN CM
[2023-08-01 14:45] VITALS: BP 129/87; PULSE 69; RESP 18; TEMP 36.3; O2SAT 98
== END 2023-08-01 14:56 | disposition home or self-care (01) ==
LOC: SDC 12:50 → MS3 12:50
PROVIDERS: Urology; Admitting Provider Obstetrics & Gynecology; PCP Family Medicine; Referring Provider Obstetrics & Gynecology; Visit Provider Obstetrics & Gynecology
PROC: (CPT 58260; principal; 2023-07-31 08:10)
PROC: (CPT 57260; 2023-07-31 08:10)
DX: N81.2 Incomplete uterovaginal prolapse (principal); F17.210 Nicotine dependence, cigarettes, uncomplicated; N39.46 Mixed incontinence; K21.9 Gastro-esophageal reflux disease without esophagitis; N31.9 Neuromuscular dysfunction of bladder, unspecified; R35.1 Nocturia; R39.11 Hesitancy of micturition; R10.2 Pelvic and perineal pain; N95.2 Postmenopausal atrophic vaginitis; K59.00 Constipation, unspecified; N72 Inflammatory disease of cervix uteri
CPT/HCPCS: 57260; 58263; 00944; 36415; 80053; 82962; 83735; 85027; 86850; 86900; 86901; 88307; 93005; 94668; 96372; 96374; 96376; 99221; 99252; 99406; J7120; C1758; G0378; G0463; J2405; J3475

== ENCOUNTER 2023-11-20 12:13 | Emergency (ER) | payer MEDICARE, MEDICAID, SELFPAY ==
[2023-11-20 12:15] VITALS: BP 122/89; PULSE 94; RESP 22; TEMP 36.2; O2SAT 96; BMI 30.9
--- NOTE | 2023-11-20 13:54 | EKG12_ITS ---
Test Reason : CP Blood Pressure : / mmHG Vent. Rate : 081 BPM Atrial Rate : 081 BPM P-R Int : 142 ms QRS Dur : 090 ms QT Int : 350 ms P-R-T Axes : 072 016 071 degrees QTc Int : 406 ms Sinus rhythm with occasional Premature ventricular complexes Otherwise normal ECG Confirmed by KORTNEY CANTU, RAFAEL ([id number]), general expeditor ELDON DOMINIQUE ([id number]) on 11/24/2023 8:24:55 AM Referred By: Christian Montelongo Confirmed By:RAFAEL SHEETS MD
--- NOTE | 2023-11-20 13:55 | EDS_ITS ---
HPI History of Present Illness Chief Complaint: Chest Pain Informant: patient Narrative Narrative: 58-year-old female presenting to the emergency room with chief complaint of upper back pain. Patient states she talked to her doctor's office and was sent to emergency. She reports that a little over a week ago she developed symptoms of COVID-19 and tested positive. She notes a slight cough. She states a few days after she was diagnosed she divan to have a pain in the thoracic region of her spine. She states that it is made worse with deep inspiration. She notes some pain radiating to her arms particularly the right. She states that when she raises her arms above her head the neck musculature feels tight. She denies any fever. She states from a COVID standpoint she feels better. She does not wish to have any controlled pain medication but would like the pain to go away. No prior history of DVT/PE. No known cardiac disease. [facility] Medical History Alcohol abuse Anxiety Bladder disease Depression Drug abuse Duodenitis Hearing loss, left Hearing loss, right Hepatitis Irregular heart beat Migraines Osteoporosis Post-menopausal Smoker Wears dentures Wears glasses Home Medications buprenorphine 4 mg-naloxone 1 mg sublingual film (Suboxone) 2 film sublingual BID detox #0 ea 05/14/21 [Rx Last Taken 07/31/23] albuterol sulfate 90 mcg/actuation aerosol inhaler 2 puff inhalation Q6H PRN SOB 01/28/22 [History Last Taken Unknown] ketorolac 10 mg tablet 10 mg PO TID PRN pain 5 days #15 tabs 11/20/23 [Rx Last Taken Unknown] prednisone 20 mg tablet 40 mg (2 x 20 mg) PO DAILY 4 days #8 tabs 11/20/23 [Rx Last Taken Unknown] Allergy/AdvReac Type Severity Reaction Status Date / Time No Known Allergies Allergy Verified 11/20/23 12:14 Family History Mother Breast cancer Heart disease Hypertension Diabetes Father Cancer pt is unsure what kind of cancer Heart disease Hypertension Diabetes Sister Breast cancer Sister Ovarian cancer Surgical History History of cataract surgery History of tubal ligation History of umbilical hernia repair Hx of hand surgery S/P vaginal hysterectomy Social History adopted: No household members: none number of children: 6 current occupational status: unemployed pets and animals: Yes pets and animals: cat(s) sexually active: No Smoking Status: Current every day smoker tobacco type: cigarettes alcohol intake: former details: pt sober since 2020 caffeine: Yes seatbelt use: always do you feel safe at home: Yes ROS ROS ED Constitutional Constitutional ED: Denies chills, fever(s) or weight loss Eyes Eyes: Denies change in vision or diplopia ENT ENT ED: Reports rhinorrhea; Denies ear pain or sore throat Cardiovascular Cardiovascular: Denies chest pain, orthopnea, palpitations or racing heartbeat Respiratory/Chest Respiratory/Chest: Reports cough; Denies dyspnea or orthopnea Gastrointestinal Gastrointestinal: Denies abdominal pain, diarrhea, nausea or vomiting Genitourinary Genitourinary ED: Denies dysuria, hematuria or urinary frequency Musculoskeletal Musculoskeletal: Reports back pain; Denies arthralgias, myalgias or neck pain Integumentary Denies abscess or rash Neurologic Neurologic: Denies headache(s) or weakness Psychiatric Psychiatric: Denies anxiety, depression, suicidal ideation or suicidal thoughts Endocrine Endocrinology: Denies polydipsia, polyphagia or polyuria Allergic/Immunologic Allergic/Immunologic ED: Denies mouth swelling, tongue swelling or urticaria EXAM Physical Exam Const Vital Signs: 11/20/23 12:15 11/20/23 15:40 Temperature 97.1 F L Temperature Source Temporal Pulse Rate 94 Respiratory Rate 22 H Respiratory Effort Normal Non-Labored Blood Pressure 122/89 H Blood Pressure Mean 100 Pulse Ox 96 Oxygen Delivery Method Room Air Positive well nourished, well developed and obese General Appearance ED: well developed Nutritional Appearance: obese HEENT Reports normocephalic, head/scalp atraumatic and moist mucous membranes Eyes PERRL and EOMs intact bilaterally Neck no lymphadenopathy, supple and no JVD Resp normal respiratory effort and clear to auscultation bilaterally Cardio regular rate, regular rhythm and no murmurs GI normal to inspection, nondistended, normoactive bowel sounds and non-tender Palpation: soft Back/Spine no CVA tenderness and normal ROM Back/Spine Narrative: Patient has upper trapezius tenderness to palpation. However the area that she tells me that hurts with inspiration is from around T4-T10. With palpation of the paraspinal in the midline there is no tenderness. There is no particular pain with movement. Not appreciating any tissue texture changes to suggest underlying infection. Extremity normal to inspection General Extremety ED: Negative for edema General Extremity: Negative for edema Neuro oriented x3 and CN's II-XII intact bilaterally Sensorium / Orientation: alert Motor Exam: strength 5/5 throughout Psych mental status grossly normal Mood & Affect: Negative for depressed or tearful Skin no rashes or lesions noted and no wounds MDM MDM MDM Narrative Medical decision making narrative: My independent interpretation of the chest x-ray is no acute process. White count 6.0 hemoglobin 13.7. Troponin is 6 D-dimer is normal 0.30. Glucose 90 creatinine 0.60. EKG is a sinus rhythm. Patient received a dose of Toradol. This point I am not seeing any evidence of ACS dissection or embolism. No pneumothorax pleural effusion or infiltrates. I do not see strong evidence of epidural or spinal infections. I believe this to be musculoskeletal in nature. Would recommend anti-inflammatories. We can try some low-dose prednisone to see if that helps. Would recommend heat and stretching. Follow-up if not improving History & Record Review Discussion w/independent historian: Patient Lab Data Attestation: I reviewed the patient's lab results. Labs: Laboratory Results - last 24 hr 11/20/23 13:50 WBC 6.0 RBC 4.39 Hgb 13.7 Hct 40.9 MCV 93.2 MCH 31.2 MCHC 33.5 RDW Std Deviation 43.7 RDW Coeff of Mamta 12.7 Plt Count 286 MPV 9.7 Immature Gran % (Auto) 0.300 Neut % (Auto) 52.3 Lymph % (Auto) 37.0 [place] % (Auto) 6.7 Eos % (Auto) 2.9 Baso % (Auto) 0.8 Absolute Neuts (auto) 3.1 Absolute Lymphs (auto) 2.20 Nucleated RBC % 0 D-Dimer Quant (PE/DVT) 0.30 Sodium 140 Potassium 4.2 Chloride 110 H Carbon Dioxide 30.0 Anion Gap 0 L BUN 15 Creatinine 0.60 Estim Creat Clear Calc 88.25 Est GFR (MDRD) Af Amer 131 Est GFR (MDRD) Non-Af 108 BUN/Creatinine Ratio 24.8 H Glucose 90 Calcium 8.8 Troponin I High Sens 6 Radiography Diagnostic Testing: Clinical Impression(s) from Imaging Studies Chest X-Ray 11/20/23 14:06 IMPRESSION: No evidence of acute cardiopulmonary process. Electronically Signed: Roque JamesDO at 14:17 EST , EKG Initial EKG: Attestation: I personally reviewed and interpreted this EKG as follows: Comments: Sinus rhythm with the occasional PVC. Ventricular rate of 81 bpm. Prior EKG tracings: available for review Prior: Unchanged (28 Jul 2023) Discharge Plan Triage Chief Complaint: Chest Pain ED Provider: Christian Montelongo Dx/Rx/DC Orders Clinical Impression: COVID-19, Back pain, thoracic Instructions: ED Back Pain (Acute or Chronic) Prescriptions: New ketorolac 10 mg tablet 10 mg PO TID PRN (Reason: pain) 5 Days Qty: 15 0RF prednisone 20 mg tablet 40 mg PO DAILY 4 Days Qty: 8 0RF No Action albuterol sulfate 90 mcg/actuation HFA aerosol inhaler 2 puff inhalation Q6H PRN (Reason: SOB) buprenorphine-naloxone [Suboxone] 4-1 mg Film 2 film SUBLINGUAL BID Qty: 0 0RF Primary Care Provider: Earnest Rodriguez Referrals: Earnest Rodriguez MD [Primary Care Provider] - Disposition Disposition: Home, Self Care Discharge Date/Time: 11/20/23 15:41
[2023-11-20] MEDS: Ketorolac 30 MG/ML Syringe IV (14:02)
[2023-11-20 14:05] LABS: Absolute Neutrophil Count 3.1 X10^3/uL (2.0-7.7); Basophil# 0.05 X10^3/uL; Basophil% 0.8 % (0-1); Eosinophil# 0.17 X10^3/uL; Eosinophils% 2.9 % (0-5); Hematocrit 40.9 % (37-47); Hemoglobin 13.7 g/dL (12.0-15.0); Mean Corp Hgb Conc 33.5 g/dL (32-36); Mean Corpuscular Hgb 31.2 pg (27.0-32.0); Mean Corpuscular Volume 93.2 fL (81-99); Mean Platelet Vol. 9.7 fl (6.2-12.0); Monocyte% 6.7 % (0-10); NRBC Flagged by Analyzer 0 % (0-5); Neutrophil # 3.11 X10^3/uL (2.7-7.7); Neutrophil % 52.3 % (47-70); Platelet Count 286 K/mm3 (150-450); RBC Distribution Width CV 12.7 % (11.6-14.6); RBC Distribution Width SD 43.7 fl (35.1-43.9); Red Blood Count 4.39 M/mm3 (4.2-5.4)
--- NOTE | 2023-11-20 14:06 | RAD_ITS ---
STUDY: X-RAY CHEST REASON FOR EXAM: Female, 58 years old. chest pain TECHNIQUE: 05/18/2021 COMPARISON: None. FINDINGS: The lungs are clear and expanded. There is no demonstrated pleural abnormality. Normal size heart. Normal mediastinum and pedro. Normal visualized pulmonary arteries. Normal visualized aortic arch and descending thoracic aorta. Normal visualized thoracic spine. Normal visualized ribs, clavicles, and shoulders. There is no demonstrated abnormality of the visualized soft tissue structures of the upper abdomen. RAD/Chest 1 View (Portable) IMPRESSION: No evidence of acute cardiopulmonary process. Electronically Signed: Roque James DO at 14:17 EST ,
--- OUTSIDE RECORDS SUMMARY | 2023-11-20 14:09 | XMS RPT_ITS | CCD ---
Author Name Unknown Address [address] [place] [address] Organization [facility] Care Team Providers Care Investigator Welfare Name Role Phone Jose Carlos PHAN Admitting Unavailable RAYNA DUEÑAS Primary Care Unavailable MARIELLE NICLOE Consulting Unavailable SALVADOR WILL Procedure Practitioner Unavailab JOHN Perez Attending Unavailable VINCENT MURPHY Consulting UnavailSALVADOR Sue Consulting Unavailable Hernesto Phan Attending UnavailRayna Mccullough MD Primary Care Provider [phone] Rayna Dueñas MD Primary Care Provider [phone] Rayna Dueñas MD Primary Care Provider RAYNA DUEÑAS MD Primary Care Physician ARJUN SLAUGHTER MD Attending Unavail sandra DUEÑAS MD., RAYNA Lehman Primary Care UnavailRayna Mccullough MD Primary Care Provider JUAN LLAMAS Attending Unavailable RAYNA DUEÑAS Primary Care Unavailable RAYNA DUEÑAS Primary Care Unavailable RAYNA DUEÑAS Primary Care Unavailable RAYNA DUEÑAS Primary Care Unavailable JUAN LLAMAS Referring Unavailable RAYNA DUEÑAS Primary Care Unavailable Medications Current Medications Medication Drug Class(es) Dates Sig (Normalized) Sig (Original) busPIRone hydrochloride 15 mg oral tablet (3 sources) Start: 12-15-2022 End: 01-20-2023 take 0.5 tablet by mouth twice daily, then take 1 tablet by mouth twice daily busPIRone (BUSPAR) 15 mg tablet Take 0.5 tablets by mouth twice daily for 6 days, THEN 1 tablet twice daily. 60 tablet 1 12/15/2022 01/20/2023 Active Completed/Discontinued Medications Medication Drug Class(es) Dates Sig (Normalized) Sig (Original) [id number] 200 actuat albuterol 0.09 mg/actuat metered dose inhaler (18 sources) beta2-Adrenergic Agonist Start: 10-27-2021 End: 04-16-2022 take 2 puff(s) by inhalation every four hours as needed albuterol HFA (PROAIR HFA) 90 mcg/actuation inhaler Inhale 2 Puffs as instructed every 4 hours as needed. 18 g 0 04/16/2022 Active Problems Active Problems Problem Classification Problem Date Documented Date Episodic/Chronic Abdominal pain (2 sources) Right flank pain; Translations: [Unspecified abdominal pain] Episodic Adjustment disorders (17 sources) Adjustment disorder with depressed mood; Translations: [Adjustment disorder with depressed mood] Onset: 08-24-2007 01-04-2015 Chronic Alcohol-related disorders (20 sources) Chronic alcoholism in remission; Translations: [Alcohol dependence, in remission] Onset: 08-29-2016 11-19-2021 Chronic Anxiety disorders (19 sources) Anxiety; Translations: [Anxiety disorder, unspecified] Onset: 06-28-2010 01-04-2015 Chronic Cardiac dysrhythmias (1 source) Palpitations; Translations: [Palpitations] Episodic Esophageal disorders (17 sources) Gastroesophageal reflux disease without esophagitis; Translations: [Gastro-esophageal reflux disease without esophagitis] Onset: 01-29-2016 01-29-2016 Chronic External cause codes: Natural/environment (1 source) Bitten by cat, initial encounter; Translations: [BITTEN BY CAT INITIAL ENCOUNTER] Onset: 01-05-2019 Headache; including migraine (17 sources) Migraine with aura; Translations: [Migraine with aura, not intractable, without status migrainosus] Onset: 08-20-2009 01-29-2016 Chronic Hepatitis (1 source) Unspecified viral hepatitis C without hepatic coma; Translations: [UNS VIRAL HEPATITIS C W/O HEP COMA] Onset: 01-05-2019 Episodic Mood disorders (20 sources) Recurrent major depressive episodes, moderate ; Translations: [Major depressive disorder, recurrent, moderate] Onset: 05-24-2020 03-26-2021 Chronic Mood disorders (1 source) Major depressive disorder, single episode, unspecified; Translations: [VALENTINE DEPRESS D/O SINGLE EPIS UNS] Onset: 01-05-2019 Nausea and vomiting (1 source) Nausea and vomiting; Translations: [Nausea with vomiting, unspecified] Episodic Nonspecific chest pain (1 source) Chest pain; Translations: [Chest pain, unspecified] Episodic Open wounds of extremities (2 sources) Open bite of right index finger without damage to nail, initial encounter; Translations: [OPEN BITE RT IF NO DMG NAIL INITIAL] Onset: 01-05-2019 Episodic Osteoarthritis (17 sources) Bilateral arthritis of hip; Translations: [Bilateral primary osteoarthritis of hip] Onset: 04-16-2021 04-16-2021 Chronic Other connective tissue disease (1 source) Other infective (teno)synovitis, right hand; Translations: [OTH INFECTIVE TENOSYNOVITIS RT HAND] Onset: 01-05-2019 Episodic Other endocrine disorders (1 source) Hypoglycemia, unspecified; Translations: [HYPOGLYCEMIA UNSPECIFIED] Onset: 01-05-2019 Chronic Other liver diseases (1 source) Unspecified cirrhosis of liver; Translations: [UNSPECIFIED CIRRHOSIS OF LIVER] Onset: 01-05-2019 Chronic Other lower respiratory disease (1 source) Dyspnea on exertion; Translations: [Dyspnea, unspecified] Episodic Other nutritional; endocrine; and metabolic disorders (1 source) Weight loss; Translations: [Abnormal weight loss] Episodic Other upper respiratory infections (3 sources) Acute upper respiratory infection; Translations: [Acute upper respiratory infection, unspecified] Episodic Prolapse of female genital organs (2 sources) Midline cystocele; Translations: [Cystocele, midline] Chronic Residual codes; unclassified (17 sources) Hypersomnia; Translations: [Hypersomnia, unspecified] Onset: 09-06-2021 09-06-2021 Chronic Residual codes; unclassified (1 source) Influenza-like symptoms; Translations: [Other general symptoms and signs] Episodic Spondylosis; intervertebral disc disorders; other back problems (17 sources) Cervical arthritis; Translations: [Spondylosis without myelopathy or radiculopathy, cervical region] Onset: 04-16-2021 04-16-2021 Chronic Substance-related disorders (20 sources) Nicotine dependence, cigarettes, uncomplicated; Translations: [Smoker] Onset: 02-23-2008 11-18-2021 Chronic Substance-related disorders (1 source) Opioid abuse, in remission; Translations: [OPIOID ABUSE IN REMISSION] Onset: 01-05-2019 Thyroid disorders (17 sources) Acquired hypothyroidism; Translations: [Hypothyroidism, unspecified] Onset: 01-29-2016 11-18-2021 Chronic Unclassified (1 source) APPOINTMENT CANCELLED Past or Other Problems Problem Classification Problem Date Documented Da te Episodic/Chronic Nutritional deficiencies (17 sources) Serum vitamin B12 low; Translations: [Deficiency of other specified B group vitamins] Onset: 06-04-2020 06-04-2020 Episodic Other infections; including parasitic (17 sources) History of hepatitis C; Translations: [Personal history of other infectious and parasitic diseases] Onset: 02-23-2015 05-24-2020 Episodic Other nutritional; endocrine; and metabolic disorders (1 source) Abnormal weight loss; Translations: [Weight loss] Onset: 12-15-2022 Episodic Other screening for suspected conditions (not mental disorders or infectious disease) (7 sources) Patient encounter status; Translations: [Encounter for screening mammogram for malignant neoplasm of breast] Onset: 12-15-2022 Episodic Residual codes; unclassified (17 sources) Insomnia; Translations: [Insomnia, unspecified] Onset: 08-24-2007 01-04-2015 Episodic Residual codes; unclassified (17 sources) Reduced libido; Translations: [Decreased libido] Onset: 08-24-2007 01-04-2015 Episodic Residual codes; unclassified (17 sources) FH: premature coronary heart disease; Translations: [Family history of ischemic heart disease and other diseases of the circulatory system] Onset: 01-29-2016 01-29-2016 Episodic Spondylosis; intervertebral disc disorders; other back problems (17 sources) Thoracic and lumbosacral neuritis; Translations: [Radiculopathy, thoracic region] Onset: 03-05-2007 03-26-2021 Episodic Substance-related disorders (17 sources) Marijuana user; Translations: [Cannabis use, unspecified, uncomplicated] Onset: 09-01-2017 09-01-2017 Episodic Results Test Name Value Interpretation Reference Range Facil ity Vital Signs Date Time Vital Sign Value Performing Clinician Facility 04-04-2023 09:51-0400 Body temperature 96.8 [degF] Beverly Kovacs APRN.CNP Work Phone: [facility] 04-04-2023 09:51-0400 Body weight 69.4 kg Beverly Kovacs APRN.CNP Work Phone: [facility] 04-04-2023 09:51-0400 Diastolic blood pressure 88 mm[Hg] Beverly Praisler-Wood RECRUITMENT MANAGER.MILITARY EQUIPMENT SPECIALIST Work Phone: [facility] 04-04-2023 09:51-0400 Heart rate 67 /min Beverly Praisler-Wood RECRUITMENT MANAGER.MILITARY EQUIPMENT SPECIALIST Work Phone: [facility] 04-04-2023 09:51-0400 Respiratory rate 20 /min Beverly Praisler-Wood RECRUITMENT MANAGER.MILITARY EQUIPMENT SPECIALIST Work Phone: [facility] 04-04-2023 09:51-0400 SaO2% (BldA) [Mass fraction] 98 % Beverly Praisler-Wood RECRUITMENT MANAGER.MILITARY EQUIPMENT SPECIALIST Work Phone: [facility] 04-04-2023 09:51-0400 Systolic blood pressure 138 mm[Hg] Beverly Praisler-Wood RECRUITMENT MANAGER.MILITARY EQUIPMENT SPECIALIST Work Phone: [facility] 03-23-2023 19:24-0400 Body temperature 96.3 [degF] Krislyn Aberegg PA Work Phone: [facility] 03-23-2023 19:24-0400 Body weight 68.58 kg Krislyn Aberegg PA Work Phone: [facility] 03-23-2023 19:24-0400 Diastolic blood pressure 80 mm[Hg] Krislyn Aberegg PA Work Phone: [facility] 03-23-2023 19:24-0400 Heart rate 78 /min Krislyn Aberegg PA Work Phone: [facility] 03-23-2023 19:24-0400 Respiratory rate 21 /min Krislyn Aberegg PA Work Phone: [facility] 03-23-2023 19:24-0400 SaO2% (BldA) [Mass fraction] 99 % Krislyn Aberegg PA Work Phone: [facility] 03-23-2023 19:24-0400 Systolic blood pressure 118 mm[Hg] Azam Egan PA Work Phone: [facility] 12-15-2022 09:35-0500 Body weight 67.04 kg Juan Llamas PA-C Work Phone: [facility] 12-15-2022 09:35-0500 Diastolic blood pressure 86 mm[Hg] Juan Llamas PA-C Work Phone: [facility] 12-15-2022 09:35-0500 Heart rate 76 /min Juan Llamas PA-C Work Phone: [facility] 12-15-2022 09:35-0500 Respiratory rate 18 /min Juan Llamas PA-C Work Phone: [facility] 12-15-2022 09:35-0500 SaO2% (BldA) [Mass fraction] 97 % Juan Llamas PA-C Work Phone: [facility] 12-15-2022 09:35-0500 Systolic blood pressure 112 mm[Hg] Juan Llamas PA-C Work Phone: [facility] 10-01-2022 14:30-0500 Body weight 72.12 kg Lou Yu APRN.MILITARY EQUIPMENT SPECIALIST Work Phone: [facility] 10-01-2022 14:30-0500 Diastolic blood pressure 64 mm[Hg] Lou Yu APRN.MILITARY EQUIPMENT SPECIALIST Work Phone: [facility] 10-01-2022 14:30-0500 Systolic blood pressure 108 mm[Hg] Lou Yu APRN.MILITARY EQUIPMENT SPECIALIST Work Phone: [facility] 10-01-2022 09:48-0500 Body height 162.6 cm ARJUN SLAUGHTER MD [facility] 10-01-2022 09:48-0500 Body temperature 97.52 [degF] ARJUN SLAUGHTER MD [facility] 10-01-2022 09:48-0500 Body weight 72.7 kg ARJUN SLAUGHTER MD [facility] 10-01-2022 09:48-0500 Diastolic blood pressure 68 mm[Hg] ARJUN SLAUGHTER MD [facility] 10-01-2022 09:48-0500 Heart rate 69 /min ARJUN SLAUGHTER MD [facility] 10-01-2022 09:48-0500 Respiratory rate 22 /min ARJUN SLAUGHTER MD [facility] 10-01-2022 09:48-0500 Systolic blood pressure 117 mm[Hg] ARJUN SLAUGHTER MD [facility] 07-25-2022 09:01-0400 Body weight 73.94 kg Juan Llamas PA-C Work Phone: [facility] 07-25-2022 09:01-0400 Diastolic blood pressure 70 mm[Hg] Juan Llamas PA-C Work Phone: [facility] 07-25-2022 09:01-0400 Heart rate 68 /min Juan Llamas PA-C Work Phone: [facility] 07-25-2022 09:01-0400 Respiratory rate 18 /min Juan Llamas PA-C Work Phone: [facility] 07-25-2022 09:01-0400 SaO2% (BldA) [Mass fraction] 94 % Juan lLamas PA-C Work Phone: [facility] 07-25-2022 09:01-0400 Systolic blood pressure 102 mm[Hg] Juan Llamas PA-C Work Phone: [facility] 06-25-2022 07:28-0400 Body temperature 97.39 [degF] Juan Llamas PA-C Work Phone: [facility] 06-25-2022 07:28-0400 Body weight 76.66 kg Juan Llamas PA-C Work Phone: [facility] 06-25-2022 07:28-0400 Diastolic blood pressure 72 mm[Hg] Juan Llamas PA-C Work Phone: [facility] 06-25-2022 07:28-0400 Heart rate 88 /min Juan Llamas PA-C Work Phone: [facility] 06-25-2022 07:28-0400 Respiratory rate 18 /min Juna Llamas PA-C Work Phone: [facility] 06-25-2022 07:28-0400 Systolic blood pressure 100 mm[Hg] Juan Llamas PA-C Work Phone: [facility] 04-16-2022 13:44-0400 Body temperature 98.1 [degF] Juan Llamas PA-C Work Phone: [facility] 04-16-2022 13:44-0400 Body weight 78.02 kg Juan Llamas PA-C Work Phone: [facility] 04-16-2022 13:44-0400 Diastolic blood pressure 60 mm[Hg] Juan Llamas PA-C Work Phone: [facility] 04-16-2022 13:44-0400 Heart rate 60 /min Juan Llamas PA-C Work Phone: [facility] 04-16-2022 13:44-0400 Respiratory rate 16 /min Juan Llamas PA-C Work Phone: [facility] 04-16-2022 13:44-0400 Systolic blood pressure 82 mm[Hg] Juan Llamas PA-C Work Phone: [facility] 03-06-2022 09:41-0400 Body weight 79.65 kg Rayna Ramirez APRN.CNP Work Phone: [facility] 03-06-2022 09:41-0400 Diastolic blood pressure 78 mm[Hg] Rayna Ramirez RECRUITMENT MANAGER.MILITARY EQUIPMENT SPECIALIST Work Phone: [facility] 03-06-2022 09:41-0400 Heart rate 64 /min Rayna Ramirez RECRUITMENT MANAGER.MILITARY EQUIPMENT SPECIALIST Work Phone: [facility] 03-06-2022 09:41-0400 Respiratory rate 20 /min Rayna Ramirez RECRUITMENT MANAGER.MILITARY EQUIPMENT SPECIALIST Work Phone: [facility] 03-06-2022 09:41-0400 SaO2% (BldA) [Mass fraction] 98 % Rayna Ramirez RECRUITMENT MANAGER.MILITARY EQUIPMENT SPECIALIST Work Phone: [facility] 03-06-2022 09:41-0400 Systolic blood pressure 120 mm[Hg] Rayna Ramirez RECRUITMENT MANAGER.MILITARY EQUIPMENT SPECIALIST Work Phone: [facility] Encounters Encounter Date Encounter Type Care Provider Facility Start: 11-17-2023 End: 11-17-2023 ambulatory RAYNA DUEÑAS Facility:[facility] Start: 07-31-2023 Chart abstracting Rayna aparicio MD Work Phone: [facility] [place] Procedures Date Procedure Procedure Detail Performing Clinician Start: 04-04-2023 STREP A MOLECULAR (POC) Beverly Kovacs RECRUITMENT MANAGER.MILITARY EQUIPMENT SPECIALIST Work Phone: Start: 03-23-2023 COVID WITH FLUA+B, ROUTINE Azam MARTIN Work Phone: Start: 03-23-2023 STREP A MOLECULAR (POC) Azam Egan PA Work Phone: Start: 03-06-2022 Urnls dip stick/tabl et rgnt auto w/o microscopy [facility] Provider Start: 07-09-2021 Mammography Rayna bond RECRUITMENT MANAGER.MILITARY EQUIPMENT SPECIALIST Work Phone: Start: 12-27-2018 Excision of Right Mendez nd Tendon, Open Approach NA EMILIE Start: 04-18-2015 Colonoscopy Rayna bond RECRUITMENT MANAGER.MILITARY EQUIPMENT SPECIALIST Work Phone: Plan of Treatment Date Care Activity Detail Author Start: 12-15-2027 LIPID SCREEN LIPID SCREEN [facility] Start: 07-17-2026 LIPID SCREEN LIPID SCREEN [facility] Start: 12-15-2025 DIABETES SCREEN DIABETES SCREEN [facility] Start: 07-17-2024 DIABETES SCREEN DIABETES SCREEN [facility] Start: 01-03-2024 PAP TESTING PAP TESTING [facility] Start: 12-15-2023 ANNUAL PCP TEAM DATABASE DBA JESSIKA DISEASE VISIT ANNUAL PCP TEAM CHRONIC DISEASE VISIT [facility] Start: 07-25-2023 ANNUAL PCP TEAM DATABASE DBA JESSIKA DISEASE VISIT ANNUAL PCP TEAM CHRONIC DISEASE VISIT [facility] Start: 07-24-2023 Influenza vaccination [facility] Start: 06-25-2023 ANNUAL PCP TEAM DATABASE DBA JESSIKA DISEASE VISIT ANNUAL PCP TEAM CHRONIC DISEASE VISIT [facility] Start: 04-16-2023 ANNUAL PCP TEAM DATABASE DBA JESSIKA DISEASE VISIT ANNUAL PCP TEAM CHRONIC DISEASE VISIT [facility] Start: 01-24-2023 ANNUAL PCP TEAM DATABASE DBA JESSIKA DISEASE VISIT ANNUAL PCP TEAM CHRONIC DISEASE VISIT [facility] Start: 01-24-2023 Urine microalbumin profile DTAP,TDAP ,TD (1 - Tdap) [facility] Immunizations Immunization Date Immunization Notes Care Provider Tammy holt 05-21-2021 COVID-19 vaccine, fu ll dose (MODERNA) Rayna Ramirez RECRUITMENT MANAGER.[facility] Work Phone: [facility] 04-23-2021 COVID-19 vaccine, fu ll dose (MODERNA) Rayna Ramirez RECRUITMENT MANAGER.[facility] Work Phone: [facility] 09-14-2017 hepatitis A and hepatitis B vaccine Rayna Ramirez RECRUITMENT MANAGER.[facility] Work Phone: [facility] Work Phone: 04-06-2017 hepatitis A and hepatitis B vaccine Rayna Ramirez RECRUITMENT MANAGER.[facility] Work Phone: [facility] Work Phone: 03-05-2017 hepatitis A and hepatitis B vaccine Rayna Ramirez RECRUITMENT MANAGER.MILITARY EQUIPMENT SPECIALIST Work Phone: [facility] Work Phone: 09-29-2015 tetanus and diphther ia toxoids, adsorbed, preservative free, for adult use (2 Lf of tetanus toxoid and 2 Lf of diphtheria toxoid) Rayna Ramirez RECRUITMENT MANAGER.MILITARY EQUIPMENT SPECIALIST Work Phone: [facility] 09-29-2015 tetanus and diphther ia toxoids, adsorbed, preservative free, for adult use (5 Lf of tetanus toxoid and 2 Lf of diphtheria toxoid) Rayna Ramirez APRN.MILITARY EQUIPMENT SPECIALIST Work Phone: [facility] Payers Date Payer Category Payer Medicaid [facility] MEDICAID [employer] ARE [facility] MEDICAID [id number] 2018-Present [phone] [address] [place] [address] Medicaid [id number] 2016 Medicare [id number] 2016 Medicare [facility] MEDICARE [employer] [facility] MEDICARE [id number] 2016-Present [phone] [address] [place] [address] Medicare [id number] 1965 Unknown [id number] 1965 Unknown [id number] 1965 Unknown [id number] 1959 Unknown [id number] Unknown [facility] [employer] PA YOR [facility] [employer] PAYOR [id number] Effective for all dates [address] [place] [address] Other [id number] Social History Date Type Detail Facility Start: 07-25-2022 Tobacco smoking stat us [facility] Smokes tobacco daily [facility] Work Phone: History of tobacco use Cigarette Smoker [facility] Start: 03-06-2022 End: 04-04-2023 Alcohol intake Current non-drinker of alcohol (finding) [facility] Start: 04-13-2015 End: 07-25-2022 Tobacco Comment half a pack a day [facility] Start: 1965 Sex Assigned At Not on file [facility] Start: 02-24-2022 End: 07-21-2022 Exposure to SARS-CoV-2 (event) Not sure [facility] Start: 07-25-2022 End: 12-11-2022 Cigarettes smoked current (pack per day) - Reported 0.5 [facility] Start: 07-25-2022 Tobacco use and exposure Smokeless tobacco non-user [facility] Tobacco smoking status Occasiona l tobacco smoker (finding) [facility] Sex Assigned At Sex 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 Author Type: Nurse Practitioner Type: Progress Notes Filed: 11/17/2023 1:07 PM Note Text: Subjective HPI Kami Watts is a 58 year old female who presents with 2 days of head congestion and cough. She has had a sore throat and nausea. Rates her sore throat pain 5-6/10. She denies any known sick contacts. No fever. She has not taken any medication at home for her symptoms. Review of Systems Constitutional: Negative for chills and fever. HENT: Positive for congestion and sore throat. Negative for ear pain. Respiratory: Positive for cough. Cardiovascular: Negative for chest pain. Gastrointestinal: Positive for nausea. Negative for diarrhea and vomiting. Musculoskeletal: Negative for myalgias. BP 124/80 Pulse 84 Temp 36 ?C (96.8 ?F) Resp 16 Wt 80.3 kg (177 lb) LMP 01/15/2017 (Within Days) SpO2 98% BMI 30.38 kg/m? PAST MEDICAL HISTORY Diagnosis Date Abnormal glandular Papanicolaou smear of cervix Abn. Pap smear (cervix) Acquired hypothyroidism 01/29/2016 Labs 01/2015 normal with no meds. Adjustment disorder with depressed mood 08/24/2007 Alcohol abuse 07/17/2021 In ER 09/10/21: Sober since May 11, 2021- checked herself in for detox and is in AA Alcohol dependence in remission (HCC) 08/29/2016 In treatment 04/06/11 Anxiety 06/28/2010 Bilateral hip joint arthritis 04/16/2021 Cervical arthritis 04/16/2021 Decreased libido 08/24/2007 Diabetes mellitus without mention of complication Diabetes mellitus Diarrhea Drug addiction (HCC) In treatment 04/06/11 - prescription pain medication use - NO IV drug use. Esophageal reflux Gastroesophageal reflux Family history of early CAD 01/29/2016 Gastroesophageal reflux disease without esophagitis 01/29/2016 History of hepatitis C treated. Not detected 08/2017 Insomnia, unspecified 08/24/2007 IV drug abuse (HCC) 02/14/2015 Low serum vitamin B12 06/04/2020 Marijuana use 09/01/2017 Urine tox 10/29/2016 Migraine with aura and without status migrainosus, not intractable 08/20/2009 Moderate episode of recurrent major depressive disorder (HCC) 05/24/2020 PMH - PAST MEDICAL HISTORY OF colitis PMH - PAST MEDICAL HISTORY OF enlarged duct pancreas and GB Smoker 02/23/2008 Started at age 9; Up to 2+ PPD Thyrotoxicosis without mention of goiter or other cause, without mention of thyrotoxic crisis or storm Hyperthyroidism Well adult exam 05/10/2015 Last done: 08/29/2016 PAST SURGICAL HISTORY Procedure Laterality Date *STRESS TEST PC 11/03/2016 normal COLONOSCOPY FLX DX W/COLLJ SPEC WHEN PFRMD 04/18/2015 Colonoscopy, repeat 5 yrs COLONOSCOPY W/BIOPSY SINGLE/MULTIPLE 08/20/2006 COLPOSCOPY CERVIX UPPER/ADJACENT VAGINA 1999 Colposcopy DILATED RETINAL EXAM W/EVIDENCE OF RETINOPATHY 12/27/2014 DILATION AND CURETTAGE DXAND/THER NONOBSTETRIC 1982, 10/2016 Dilation AND curettage ENDOMETRIAL BX W/WO ENDOCERVIX BX W/O DILAT SPX 03/03/2007 LIG/TRNSXJ FLP TUBE ABDL/VAG APPR UNI/BI 2002 Tubal ligation PAST SURGICAL HISTORY OF 1997 BENIGN TUMOR REMOVED RIGHT HAND PAST SURGICAL HISTORY OF 2012 cataract with lens implant, bilat PAST SURGICAL HISTORY OF 07/31/2023 anterior and posterior vaginal repair, Dr. Molina RPR UMBILICAL HERNIA < 5 YRS REDUCIBLE 2002 Hernia repair, umbilical <5yr ALLERGIES Patient has no known allergies. MEDICATIONS promethazine (PHENERGAN) 25 mg tablet Take 1 tablet by mouth every 6 hours as needed for nausea/vomiting. escitalopram oxalate (LEXAPRO) 10 mg tablet Take 0.5 tablets by mouth once daily for 6 days, THEN 1 tablet once daily. albuterol HFA (PROAIR HFA) 90 mcg/actuation inhaler Inhale 2 Puffs as instructed every 4 hours as needed. buprenorphine-naloxone (SUBOXONE) 8-2 mg film Dissolve 2 Film under the tongue once daily. FAMILY HISTORY Problem Relation Age of Onset Diabetes Mother colon cancer Coronary Artery Disease Mother Hypertension Mother Hearing Loss Father MT/ colon cancer Stroke Father Diabetes Father Hypertension Father Aneurysm Father Coronary Artery Disease Maternal Grandmother Hypertension Maternal Grandmother Ischemic Heart Disease Maternal Grandfather Hypertension Paternal Grandmother Coronary Artery Disease Paternal Grandmother Coronary Artery Disease Paternal Grandfather Cancer Sister CERVICAL/colon cancer Cancer Paternal Aunt DOESN'T KNOW TYPE Heart Brother MT Hypertension Daughter Colon Cancer Brother Social History Tobacco Use Smoking status: Every Day Packs/day: 0.50 Years: 40.00 Additional pack years: 0.00 Total pack years: 20.00 Types: Cigarettes Smokeless tobacco: Never Tobacco comments: half a pack a day Vaping Use Vaping Use: Never used Substance Use Topics Alcohol use: No Drug use: No Comment: sober since june 01 2014-meth Objective Physical Exam Vitals and nursing note reviewed. Constitutional: (more content not included)... [facility] 07-31-2023 Note HNO ID: [id number] Author: Krystyna Gipson Ma Service: ? Author Type: ? Type: Progress Notes Filed: 08/02/2023 8:58 PM Note Text: View External Procedures - [ID [id number]] [facility] 07-31-2023 History of Presen t illness Narrative View External Procedures - [ID [id number]] documented in this encounter [facility] 07-29-2023 Note Patient Outreach (IN [facility]) KAMI WATTS ([id number]) 1965 F NFR Date Time Provider Department 07/29/23 RAYNA DUEÑAS During your visit today, we recorded the following information about you: Allergies As of Date: 07/29/2023 (No Known Allergies) Date Reviewed: 04/04/2023 Reviewed by: Vane Sadler MA - Fully Assessed Visit Diagnosis:Encounter for screening mammogram for breast cancer [Z12.31] Order(s):[facility] SCREENING [[id number]] Order #: [id number] FUTURE Prescriptions as of 08/03/2023 - promethazine (PHENERGAN) 25 mg tablet Take 1 tablet by mouth every 6 hours as needed for nausea/vomiting. - escitalopram oxalate (LEXAPRO) 10 mg tablet Take 0.5 tablets by mouth once daily for 6 days, THEN 1 tablet once daily. - albuterol HFA (PROAIR HFA) 90 mcg/actuation inhaler Inhale 2 Puffs as instructed every 4 hours as needed. - buprenorphine-naloxone (SUBOXONE) 8-2 mg film Dissolve 2 Film under the tongue once daily. Problem List As Of Date 07/29/2023 Noted Resolved Thoracic and lumbosacral neuritis [M54.14, M54.*03/05/2007 Insomnia, unspecified [G47.00] 08/24/2007 Decreased libido [R68.82] 08/24/2007 Adjustment disorder with depressed mood [F43.21]08/24/2007 Smoker [F17.200] 02/23/2008 Migraine with aura and without status migrainos*08/20/2009 Anxiety [F41.9] 06/28/2010 Drug addiction (HCC) [F19.20] IV drug abuse [F19.10] 02/14/2015 History of hepatitis C [Z86.19] 02/23/2015 Well adult exam [Z00.00] 05/10/2015 Family history of early CAD [Z82.49] 01/29/2016 Acquired hypothyroidism [E03.9] 01/29/2016 Gastroesophageal reflux disease without esophag*01/29/2016 Encounter for gynecological examination without*08/29/2016 Alcohol dependence in remission (HCC) [F10.21] 08/29/2016 Marijuana use [F12.90] 09/01/2017 Moderate episode of recurrent major depressive *05/24/2020 Low serum vitamin B12 [E53.8] 06/04/2020 Bilateral hip joint arthritis [M16.0] 04/16/2021 Cervical arthritis [M47.812] 04/16/2021 Alcohol abuse [F10.10] 07/17/2021 Hypersomnia [G47.10] 09/06/2021 Encounter Status:Closed by [facility], PRODUSER on 08/03/23 [facility] 07-28-2023 Note HNO ID: [id number] Author: Ramiro Hooper LPN Service: ? Author Type: ? Type: Progress Notes Filed: 07/28/2023 3:25 PM Note Text: Scan on 07/28/2023 1:35 PM by ProviderRah PA-C: Chemistry Scan on 07/28/2023 1:05 PM by ProviderRah PA-C: Hematology [facility] 07-28-2023 History of Presen t illness Narrative Scan on 07/28/2023 1:35 PM by ProviderRah PA-C: Chemistry Scan on 07/28/2023 1:05 PM by Provider, MATT Monreal: Hematology documented in this encounter [facility] 04-05-2023 Miscellaneous Notes Formattin g of this note might be different from the original. Patient notified. Verbalized understanding. ----- Message from Beverly Kovacs APRN.MILITARY EQUIPMENT SPECIALIST sent at 04/05/2023 8:05 AM EDT ----- Please advise patient the COVID and flu test was negative. documented in this encounter [facility] 04-04-2023 Note HNO ID: [id number] Author: Beverly Kovacs APRN.MILITARY EQUIPMENT SPECIALIST Service: ? Author Type: Nurse Practitioner Type: Progress Notes Filed: 04/04/2023 10:21 AM Note Text: Subjective HPI Kami Watts is a 57 year old female who presents with nausea and vomiting and sore throat for the past 9 hours. She awoke at 1:00 am this morning with an upset stomach. She has headache, body aches, chills, cough and congestion also. She denies any known sick contacts. She has not taken any medication at home for her symptoms. Review of Systems Constitutional: Positive for chills and malaise/fatigue. Negative for fever. HENT: Positive for congestion and sore throat. Negative for ear pain. Respiratory: Positive for cough. Negative for shortness of breath. Cardiovascular: Negative for chest pain. Gastrointestinal: Positive for nausea and vomiting. Negative for abdominal pain and diarrhea. Genitourinary: Negative for dysuria and hematuria. Musculoskeletal: Positive for myalgias. Neurological: Positive for headaches. Negative for dizziness. BP 138/88 Pulse 67 Temp 36 ?C (96.8 ?F) Resp 20 Wt 69.4 kg (153 lb) LMP 01/15/2017 (Within Days) SpO2 98% BMI 26.26 kg/m? PAST MEDICAL HISTORY Diagnosis Date Abnormal glandular Papanicolaou smear of cervix Abn. Pap smear (cervix) Acquired hypothyroidism 01/29/2016 Labs 01/2015 normal with no meds. Adjustment disorder with depressed mood 08/24/2007 Alcohol abuse 07/17/2021 In ER 09/10/21: Sober since May 11, 2021- checked herself in for detox and is in AA Alcohol dependence in remission (HCC) 08/29/2016 In treatment 04/06/11 Anxiety 06/28/2010 Bilateral hip joint arthritis 04/16/2021 Cervical arthritis 04/16/2021 Decreased libido 08/24/2007 Diabetes mellitus without mention of complication Diabetes mellitus Diarrhea Drug addiction (HCC) In treatment 04/06/11 - prescription pain medication use - NO IV drug use. Esophageal reflux Gastroesophageal reflux Family history of early CAD 01/29/2016 Gastroesophageal reflux disease without esophagitis 01/29/2016 History of hepatitis C treated. Not detected 08/2017 Insomnia, unspecified 08/24/2007 IV drug abuse (HCC) 02/14/2015 Low serum vitamin B12 06/04/2020 Marijuana use 09/01/2017 Urine tox 10/29/2016 Migraine with aura and without status migrainosus, not intractable 08/20/2009 Moderate episode of recurrent major depressive disorder (HCC) 05/24/2020 PMH - PAST MEDICAL HISTORY OF colitis PMH - PAST MEDICAL HISTORY OF enlarged duct pancreas and GB Smoker 02/23/2008 Started at age 9; Up to 2+ PPD Thyrotoxicosis without mention of goiter or other cause, without mention of thyrotoxic crisis or storm Hyperthyroidism Well adult exam 05/10/2015 Last done: 08/29/2016 PAST SURGICAL HISTORY Procedure Laterality Date *STRESS TEST PC 11/03/2016 normal COLONOSCOPY FLX DX W/COLLJ SPEC WHEN PFRMD 04/18/15 Colonoscopy, repeat 5 yrs COLONOSCOPY W/BIOPSY SINGLE/MULTIPLE 08/20/06 COLPOSCOPY CERVIX UPPER/ADJACENT VAGINA 1999 Colposcopy DILATED RETINAL EXAM W/EVIDENCE OF RETINOPATHY 12/27/2014 DILATION AND CURETTAGE DXAND/THER NONOBSTETRIC 10/2016 Dilation AND curettage ENDOMETRIAL BX W/WO ENDOCERVIX BX W/O DILAT SPX 03/03/07 LIG/TRNSXJ FLP TUBE ABDL/VAG APPR UNI/BI 2002 Tubal ligation PAST SURGICAL HISTORY OF 1997 BENIGN TUMOR REMOVED RIGHT HAND PAST SURGICAL HISTORY OF 2012 cataract with lens implant, bilat RPR UMBILICAL HERNIA < 5 YRS REDUCIBLE 2002 Hernia repair, umbilical <5yr ALLERGIES Patient has no known allergies. MEDICATIONS escitalopram oxalate (LEXAPRO) 10 mg tablet Take 0.5 tablets by mouth once daily for 6 days, THEN 1 tablet once daily. albuterol HFA (PROAIR HFA) 90 mcg/actuation inhaler Inhale 2 Puffs as instructed every 4 hours as needed. buprenorphine-naloxone (SUBOXONE) 8-2 mg film Dissolve 2 Film under the tongue once daily. FAMILY HISTORY Problem Relation Age of Onset Diabetes Mother colon cancer Coronary Artery Disease Mother Hypertension Mother Hearing Loss Father MT/ colon cancer Stroke Father Diabetes Father Hypertension Father Aneurysm Father Coronary Artery Disease Maternal Grandmother Hypertension Maternal Grandmother Ischemic Heart Disease Maternal Grandfather Hypertension Paternal Grandmother Coronary Artery Disease Paternal Grandmother Coronary Artery Disease Paternal Grandfather Cancer Sister CERVICAL/colon cancer Cancer Paternal Aunt DOESN'T KNOW TYPE Heart Brother MT Hypertension Daughter Colon Cancer Brother Social History Tobacco Use Smoking status: Every Day Packs/day: 0.50 Years: 40.00 Pack years: 20.00 Types: Cigarettes Smokeless tobacco: Never Tobacco comments: half a pack a day Vaping Use Vaping Use: Never used Substance Use Topics Alcohol use: No Drug use: No Comment: sober since june 01 2014-meth Objective Physical Exam Vitals and nursing note reviewed. Co (more content not included)... [facility] 04-04-2023 Instructions Beverly Kovacs APRN.MILITARY EQUIPMENT SPECIALIST - 04/04/2023 10:17 AM EDT ASSESSMENT/PLAN: 1. Sore throat - ICD9: 462, ICD10: J02.9 (primary diagnosis) - suspect viral - Alere Strep Test negative, no culture pending - Discussed supportive care treatment with fluids, rest and analgesia. - STREP A MOLECULAR (POC) 2. Flu-like symptoms - ICD9: 780.99, ICD10: R68.89 - COVID WITH FLUA+B, ROUTINE 3. Nausea and vomiting, unspecified vomiting type - ICD9: 787.01, ICD10: R11.2 - likely viral - PROMETHAZINE 25 MG TABLET - Follow-up with your PCP in 3-5 days if symptoms have not improved or sooner if symptoms worsen - Discussed red flags and need for immediate medical evaluation if any occur. - Discussed supportive care treatment with fluids, rest and analgesia. - Discussed expected course of illness Beverly Kovacs APRN.CNP GASTROENTERITIS Your exam shows you have gastroenteritis, a common illness. Symptoms can include nausea, vomiting, stomach cramps, diarrhea, and a slight fever. Viral gastroenteritis, usually the most common form clears up in 2-3 days with bed rest and a clear liquid diet. You can start on small sips of water every 20-30 minutes; gradually increase this to 1-2 cups every hour as tolerated. You can then try sodas, Gatorade, broth, and jello if your cramps and nausea are better. Try crackers and dry toast as your symptoms improve. Stay away from milk and dairy products, alcohol, and drugs that upset your stomach for the next week. Call your doctor or the emergency department if you have: persistent vomiting, bloody stools, dehydration, fainting, high fever, increased pain or pain in the abdomen on the right side. Viral gastroenteritis is hard to tell from food poisoning. If other members of your family also become ill, check with your doctor or the health department. documented in this encounter [facility] 04-04-2023 History of Presen t illness Narrative Wu HPI Kami Watts is a 57 year old female who presents with nausea and vomiting and sore throat for the past 9 hours. She awoke at 1:00 am this morning with an upset stomach. She has headache, body aches, chills, cough and congestion also. She denies any known sick contacts. She has not taken any medication at home for her symptoms. Review of Systems Constitutional: Positive for chills and malaise/fatigue. Negative for fever. HENT: Positive for congestion and sore throat. Negative for ear pain. Respiratory: Positive for cough. Negative for shortness of breath. Cardiovascular: Negative for chest pain. Gastrointestinal: Positive for nausea and vomiting. Negative for abdominal pain and diarrhea. Genitourinary: Negative for dysuria and hematuria. Musculoskeletal: Positive for myalgias. Neurological: Positive for headaches. Negative for dizziness. BP 138/88 Pulse 67 Temp 36 C (96.8 F) Resp 20 Wt 69.4 kg (153 lb) LMP 01/15/2017 (Within Days) SpO2 98% BMI 26.26 kg/m PAST MEDICAL HISTORY Diagnosis Date Abnormal glandular Papanicolaou smear of cervix Abn. Pap smear (cervix) Acquired hypothyroidism 01/29/2016 Labs 01/2015 normal with no meds. Adjustment disorder with depressed mood 08/24/2007 Alcohol abuse 07/17/2021 In ER 09/10/21: Sober since May 11, 2021- checked herself in for detox and is in AA Alcohol dependence in remission (HCC) 08/29/2016 In treatment 04/06/11 Anxiety 06/28/2010 Bilateral hip joint arthritis 04/16/2021 Cervical arthritis 04/16/2021 Decreased libido 08/24/2007 Diabetes mellitus without mention of complication Diabetes mellitus Diarrhea Drug addiction (HCC) In treatment 04/06/11 - prescription pain medication use - NO IV drug use. Esophageal reflux Gastroesophageal reflux Family history of early CAD 01/29/2016 Gastroesophageal reflux disease without esophagitis 01/29/2016 History of hepatitis C treated. Not detected 08/2017 Insomnia, unspecified 08/24/2007 IV drug abuse (HCC) 02/14/2015 Low serum vitamin B12 06/04/2020 Marijuana use 09/01/2017 Urine tox 10/29/2016 Migraine with aura and without status migrainosus, not intractable 08/20/2009 Moderate episode of recurrent major depressive disorder (HCC) 05/24/2020 PMH - PAST MEDICAL HISTORY OF colitis PMH - PAST MEDICAL HISTORY OF enlarged duct pancreas and GB Smoker 02/23/2008 Started at age 9; Up to 2+ PPD Thyrotoxicosis without mention of goiter or other cause, without mention of thyrotoxic crisis or storm Hyperthyroidism Well adult exam 05/10/2015 Last done: 08/29/2016 PAST SURGICAL HISTORY Procedure Laterality Date *STRESS TEST PC 11/03/2016 normal COLONOSCOPY FLX DX W/COLLJ SPEC WHEN PFRMD 04/18/15 Colonoscopy, repeat 5 yrs COLONOSCOPY W/BIOPSY SINGLE/MULTIPLE 08/20/06 COLPOSCOPY CERVIX UPPER/ADJACENT VAGINA 1999 Colposcopy DILATED RETINAL EXAM W/EVIDENCE OF RETINOPATHY 12/27/2014 DILATION & CURETTAGE DX&/THER NONOBSTETRIC 10/2016 Dilation & curettage ENDOMETRIAL BX W/WO ENDOCERVIX BX W/O DILAT SPX 03/03/07 LIG/TRNSXJ FLP TUBE ABDL/VAG APPR UNI/BI 2002 Tubal ligation PAST SURGICAL HISTORY OF 1997 BENIGN TUMOR REMOVED RIGHT HAND PAST SURGICAL HISTORY OF 2012 cataract with lens implant, bilat RPR UMBILICAL HERNIA < 5 YRS REDUCIBLE 2002 Hernia repair, umbilical <5yr ALLERGIES Patient has no known allergies. MEDICATIONS escitalopram oxalate (LEXAPRO) 10 mg tablet Take 0.5 tablets by mouth once daily for 6 days, THEN 1 tablet once daily. albuterol HFA (PROAIR HFA) 90 mcg/actuation inhaler Inhale 2 Puffs as instructed every 4 hours as needed. buprenorphine-naloxone (SUBOXONE) 8-2 mg film Dissolve 2 Film under the tongue once daily. FAMILY HISTORY Problem Relation Age of Onset Diabetes Mother colon cancer Coronary Artery Disease Mother Hypertension Mother Hearing Loss Father MT/ colon cancer Stroke Father Diabetes Father Hypertension Father Aneurysm Father Coronary Artery Disease Maternal Grandmother Hypertension Maternal Grandmother Ischemic Heart Disease Maternal Grandfather Hypertension Paternal Grandmother Coronary Artery Disease Paternal Grandmother Coronary Artery Disease Paternal Grandfather Cancer Sister CERVICAL/colon cancer Cancer Paternal Aunt DOESN'T KNOW TYPE Heart Brother MT Hypertension Daughter Colon Cancer Brother Social History Tobacco Use Smoking status: Every Day Packs/day: 0.50 Years: 40.00 Pack years: 20.00 Types: Cigarettes Smokeless tobacco: Never Tobacco comments: half a pack a day Vaping Use Vaping Use: Never used Substance Use Topics Alcohol use: No Drug use: No Comment: sober since june 01 2014-meth Objective Physical Exam Vitals and nursing note reviewed. Constitutional: General: She is not in acute distress. Appearance: Normal appearance. She is ill-appearing. HENT: Right Ear: Tympanic membrane, ear canal and external ear normal. Left Ear: Tympanic membrane, ear canal and external ear normal. Nose: Nose normal. Mouth/Throat: Mouth: Mucous membranes are moist. Pharynx: Uvula midline. Posterior oropharyngeal erythema present. No oropharyngeal exudate. Cardiovascular: Rate and Rhythm: Normal rate and regular rhythm. Heart sounds: Normal heart sounds. Pulmonary: Effort: Pulmonary effort is normal. No respiratory distress. Breath sounds: Normal breath sounds. No wheezing or rales. Musculoskeletal: Cervical back: Neck supple. Lymphadenopathy: Cervical: No cervical adenopathy. Skin: General: Skin is warm and dry. Findings: No erythema or rash. Neurological: Mental Status: She is alert. ASSESSMENT/PLAN: 1. Sore throat - ICD9: 462, ICD10: J02.9 (primary diagnosis) - suspect viral - Alere Strep Test negative, no culture pending - Discussed supportive care treatment with fluids, rest and analgesia. - STREP A MOLECULAR (POC) 2. Flu-like symptoms - ICD9: 780.99, ICD10: R68.89 - COVID WITH FLUA+B, ROUTINE 3. Nausea and vomiting, unspecified vomiting type - ICD9: 787.01, ICD10: R11.2 - likely viral - PROMETHAZINE 25 MG TABLET - Follow-up with your PCP in 3-5 days if symptoms have not improved or sooner if symptoms worsen - Discussed red flags and need for immediate medical evaluation if any occur. - Discussed supportive care treatment with fluids, rest and analgesia. - Discussed expected course of illness Beverly Kovacs APRN.ARIK documented in this encounter [facility] 03-24-2023 Miscellaneous Notes Formattin g of this note might be different from the original. Patient given results and verbalized understanding of instructions given. aDlia Medina Please notify that covid/flu testing negative. Continue with plan of care as discussed during visit. documented in this encounter [facility] 03-23-2023 Note HNO ID: [id number] Author: MARIO Mcgee Service: ? Author Type: Physician Clinical Science Liaison Type: Progress Notes Filed: 03/23/2023 7:47 PM Note Text: This note was created using [employer]. Wu Watts is a 57 year old female. HPI 57-year-old female presents for URI symptoms. Patient states she has had runny nose, sore throat and headache for the past 6 days. She states that she has history of migraines. She has been having a headache for the past few days. She states that she also has a sore throat for the past 3 days. She states she has bilateral ear pain, nasal congestion/runny nose. No fevers. No vomiting or diarrhea. No cough. No sick contacts that she is aware of. PAST MEDICAL HISTORY Diagnosis Date Abnormal glandular Papanicolaou smear of cervix Abn. Pap smear (cervix) Acquired hypothyroidism 01/29/2016 Labs 01/2015 normal with no meds. Adjustment disorder with depressed mood 08/24/2007 Alcohol abuse 07/17/2021 In ER 09/10/21: Sober since May 11, 2021- checked herself in for detox and is in AA Alcohol dependence in remission (HCC) 08/29/2016 In treatment 04/06/11 Anxiety 06/28/2010 Bilateral hip joint arthritis 04/16/2021 Cervical arthritis 04/16/2021 Decreased libido 08/24/2007 Diabetes mellitus without mention of complication Diabetes mellitus Diarrhea Drug addiction (HCC) In treatment 04/06/11 - prescription pain medication use - NO IV drug use. Esophageal reflux Gastroesophageal reflux Family history of early CAD 01/29/2016 Gastroesophageal reflux disease without esophagitis 01/29/2016 History of hepatitis C treated. Not detected 08/2017 Insomnia, unspecified 08/24/2007 IV drug abuse (HCC) 02/14/2015 Low serum vitamin B12 06/04/2020 Marijuana use 09/01/2017 Urine tox 10/29/2016 Migraine with aura and without status migrainosus, not intractable 08/20/2009 Moderate episode of recurrent major depressive disorder (HCC) 05/24/2020 PMH - PAST MEDICAL HISTORY OF colitis PMH - PAST MEDICAL HISTORY OF enlarged duct pancreas and GB Smoker 02/23/2008 Started at age 9; Up to 2+ PPD Thyrotoxicosis without mention of goiter or other cause, without mention of thyrotoxic crisis or storm Hyperthyroidism Well adult exam 05/10/2015 Last done: 08/29/2016 PAST SURGICAL HISTORY Procedure Laterality Date *STRESS TEST PC 11/03/2016 normal COLONOSCOPY FLX DX W/COLLJ SPEC WHEN PFRMD 04/18/15 Colonoscopy, repeat 5 yrs COLONOSCOPY W/BIOPSY SINGLE/MULTIPLE 08/20/06 COLPOSCOPY CERVIX UPPER/ADJACENT VAGINA 1999 Colposcopy DILATED RETINAL EXAM W/EVIDENCE OF RETINOPATHY 12/27/2014 DILATION AND CURETTAGE DXAND/THER NONOBSTETRIC 1981, 10/2016 Dilation AND curettage ENDOMETRIAL BX W/WO ENDOCERVIX BX W/O DILAT SPX 03/03/07 LIG/TRNSXJ FLP TUBE ABDL/VAG APPR UNI/BI 2002 Tubal ligation PAST SURGICAL HISTORY OF 1997 BENIGN TUMOR REMOVED RIGHT HAND PAST SURGICAL HISTORY OF 2012 cataract with lens implant, bilat RPR UMBILICAL HERNIA < 5 YRS REDUCIBLE 2002 Hernia repair, umbilical <5yr ALLERGIES Patient has no known allergies. MEDICATIONS albuterol HFA (PROAIR HFA) 90 mcg/actuation inhaler Inhale 2 Puffs as instructed every 4 hours as needed. buprenorphine-naloxone (SUBOXONE) 8-2 mg film Dissolve 2 Film under the tongue once daily. escitalopram oxalate (LEXAPRO) 10 mg tablet Take 0.5 tablets by mouth once daily for 6 days, THEN 1 tablet once daily. FAMILY HISTORY Problem Relation Age of Onset Diabetes Mother colon cancer Coronary Artery Disease Mother Hypertension Mother Hearing Loss Father MT/ colon cancer Stroke Father Diabetes Father Hypertension Father Aneurysm Father Coronary Artery Disease Maternal Grandmother Hypertension Maternal Grandmother Ischemic Heart Disease Maternal Grandfather Hypertension Paternal Grandmother Coronary Artery Disease Paternal Grandmother Coronary Artery Disease Paternal Grandfather Cancer Sister CERVICAL/colon cancer Cancer Paternal Aunt DOESN'T KNOW TYPE Heart Brother MT Hypertension Daughter Colon Cancer Brother Social History Tobacco Use Smoking status: Every Day Packs/day: 0.50 Years: 40.00 Pack years: 20.00 Types: Cigarettes Smokeless tobacco: Never Tobacco comments: half a pack a day Vaping Use Vaping Use: Never used Substance Use Topics Alcohol use: No Drug use: No Comment: sober since june 01 2014-meth Review of Systems Constitutional: Negative for chills and fever. HENT: Positive for congestion, ear pain, rhinorrhea and sore throat. Respiratory: Negative for cough and shortness of breath. Cardiovascular: Negative for chest pain. Gastrointestinal: Negative for diarrhea and vomiting. Neurological: Positive for headaches. Objective BP 118/80 Pulse 78 Temp (!) 35.7 ?C (96.3 ?F) Resp 21 Wt 68.6 kg (151 lb 3.2 oz) LMP 01/15/2017 (Within Days) SpO2 99% BMI 25.95 kg/m? Physical Exam Vitals and nursing note reviewed (more content not included)... [facility] 03-23-2023 Instructions MARIO Mcgee - 03/23/2023 7:36 PM EDT Rest, increase water intake Motrin or Tylenol as needed for fever or pain. Salt water gargles, chloraseptic spray or lozenges as needed for sore throat. Warm beverages, honey. Nasal saline spray as needed Cool mist humidifier at night A cold normally lasts 7-10 days. If your symptoms are lasting longer, develop fever, or worsening by that time instead of improving then return to clinic or follow up with PCP for re-evaluation. Tylenol (generic acetaminophen) 500 mg-2 tabs every 8 hrs. as needed for fever and aches Ibuprofen 600 mg (3-200mg tablets) every 6 hours -Mucinex (generic is fine) Guaifenesin 1200 mg twice daily to help with cough and to thin out mucus documented in this encounter [facility] 03-23-2023 History of Presen t illness Narrative This note was created using [employer]. Wu Watts is a 57 year old female. HPI 57-year-old female presents for URI symptoms. Patient states she has had runny nose, sore throat and headache for the past 6 days. She states that she has history of migraines. She has been having a headache for the past few days. She states that she also has a sore throat for the past 3 days. She states she has bilateral ear pain, nasal congestion/runny nose. No fevers. No vomiting or diarrhea. No cough. No sick contacts that she is aware of. PAST MEDICAL HISTORY Diagnosis Date Abnormal glandular Papanicolaou smear of cervix Abn. Pap smear (cervix) Acquired hypothyroidism 01/29/2016 Labs 01/2015 normal with no meds. Adjustment disorder with depressed mood 08/24/2007 Alcohol abuse 07/17/2021 In ER 09/10/21: Sober since May 11, 2021- checked herself in for detox and is in AA Alcohol dependence in remission (HCC) 08/29/2016 In treatment 5/15/11 Anxiety 06/28/2010 Bilateral hip joint arthritis 04/16/2021 Cervical arthritis 04/16/2021 Decreased libido 08/24/2007 Diabetes mellitus without mention of complication Diabetes mellitus Diarrhea Drug addiction (HCC) In treatment 04/06/11 - prescription pain medication use - NO IV drug use. Esophageal reflux Gastroesophageal reflux Family history of early CAD 01/29/2016 Gastroesophageal reflux disease without esophagitis 01/29/2016 History of hepatitis C treated. Not detected 08/2017 Insomnia, unspecified 08/24/2007 IV drug abuse (HCC) 02/14/2015 Low serum vitamin B12 06/04/2020 Marijuana use 09/01/2017 Urine tox 10/29/2016 Migraine with aura and without status migrainosus, not intractable 08/20/2009 Moderate episode of recurrent major depressive disorder (HCC) 05/24/2020 PMH - PAST MEDICAL HISTORY OF colitis PMH - PAST MEDICAL HISTORY OF enlarged duct pancreas and GB Smoker 02/23/2008 Started at age 9; Up to 2+ PPD Thyrotoxicosis without mention of goiter or other cause, without mention of thyrotoxic crisis or storm Hyperthyroidism Well adult exam 05/10/2015 Last done: 08/29/2016 PAST SURGICAL HISTORY Procedure Laterality Date *STRESS TEST PC 11/03/2016 normal COLONOSCOPY FLX DX W/COLLJ SPEC WHEN PFRMD 04/18/15 Colonoscopy, repeat 5 yrs COLONOSCOPY W/BIOPSY SINGLE/MULTIPLE 08/20/06 COLPOSCOPY CERVIX UPPER/ADJACENT VAGINA 1999 Colposcopy DILATED RETINAL EXAM W/EVIDENCE OF RETINOPATHY 12/27/2014 DILATION & CURETTAGE DX&/THER NONOBSTETRIC 10/2016 Dilation & curettage ENDOMETRIAL BX W/WO ENDOCERVIX BX W/O DILAT SPX 03/03/07 LIG/TRNSXJ FLP TUBE ABDL/VAG APPR UNI/BI 2002 Tubal ligation PAST SURGICAL HISTORY OF 1997 BENIGN TUMOR REMOVED RIGHT HAND PAST SURGICAL HISTORY OF 2012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 mention of thyrotoxic crisis or storm Hyperthyroidism Well adult exam 05/10/2015 Last done: 08/29/2016 Previous Surgical History PAST SURGICAL HISTORY Procedure Laterality Date *STRESS TEST PC 11/03/2016 normal COLONOSCOPY FLX DX W/COLLJ SPEC WHEN PFRMD 04/18/15 Colonoscopy, repeat 5 yrs COLONOSCOPY W/BIOPSY SINGLE/MULTIPLE 08/20/06 COLPOSCOPY CERVIX UPPER/ADJACENT VAGINA 1999 Colposcopy DILATED RETINAL EXAM W/EVIDENCE OF RETINOPATHY 12/27/2014 DILATION & CURETTAGE DX&/THER NONOBSTETRIC 1981, 10/2016 Dilation & curettage ENDOMETRIAL BX W/WO ENDOCERVIX BX W/O DILAT SPX 03/03/07 LIG/TRNSXJ FLP TUBE ABDL/VAG APPR UNI/BI 2002 Tubal ligation PAST SURGICAL HISTORY OF 1997 BENIGN TUMOR REMOVED RIGHT HAND PAST SURGICAL HISTORY OF 2012 cataract with lens implant, bilat RPR UMBILICAL HERNIA < 5 YRS REDUCIBLE 2002 Hernia repair, umbilical <5yr Family History FAMILY HISTORY Problem Relation Age of Onset Diabetes Mother colon cancer Coronary Artery Disease Mother Hypertension Mother Hearing Loss Father MT/ colon cancer Stroke Father Diabetes Father Hypertension Father Aneurysm Father Coronary Artery Disease Maternal Grandmother Hypertension Maternal Grandmother Ischemic Heart Disease Maternal Grandfather Hypertension Paternal Grandmother Coronary Artery Disease Paternal Grandmother Coronary Artery Disease Paternal Grandfather Cancer Sister CERVICAL/colon cancer Cancer Paternal Aunt DOESN'T KNOW TYPE Heart Brother MT Hypertension Daughter Colon Cancer Brother Patient Allergies ALLERGIES No Known Allergies Current Medications Current Outpatient Medications on File Prior to Visit Medication Sig albuterol HFA (PROAIR HFA) 90 mcg/actuation inhaler Inhale 2 Puffs as instructed every 4 hours as needed. Buprenorphine-nalOXone (SUBOXONE) 8-2 mg film Dissolve 2 Film under the tongue once daily. No current facility-administered medications on file prior to visit. Social History Social History Tobacco Use Smoking status: Every Day Packs/day: 0.50 Years: 40.00 Pack years: 20.00 Types: Cigarettes Smokeless tobacco: Never Tobacco comments: half a pack a day Vaping Use Vaping Use: Never used Substance Use Topics Alcohol use: No Drug use: No Comment: sober since june 01 2014-meth Review of Symptoms REVIEW OF SYSTEMS See hpi EXAM: BP 102/70 Pulse 68 Resp 18 Wt 73.9 kg (163 lb) LMP 01/15/2017 (Within Days) SpO2 94% BMI 27.98 kg/m General Appearance: Well appearing, alert, in no acute distress, well-hydrated, well nourished.. PSYCH: Appearance: well dressed well groomed, cooperative, and pleasant Behavior: good eye contact Speech: normal and fluent and coherent Mood: depressed Affect: constricted Perceptions: none Thought process: perseverative Thought Content: normal Intelligence level: normal Insight: fair Judgment: fair . Health Maintenance List PNEUMOCOCCAL(1 - PCV) Never done HPV TESTING due on 02/25/2012 LUNG CANCER SCREENING Never done SHINGRIX VACCINE(1 of 2) Never done COLORECTAL CANCER SCREENING due on 04/18/2020 COVID-19 VACCINE(4 - Booster for Moderna series) due on 06/01/2022 MAMMOGRAM due on 07/09/2022 INFLUENZA(1) due on 07/24/2022 DTAP,TDAP,TD(1 - Tdap) due on 01/24/2023 ANNUAL PCP TEAM CHRONIC DISEASE VISIT due on 06/25/2023 PAP TESTING due on 01/03/2024 DIABETES SCREEN due on 07/17/2024 LIPID SCREEN due on 07/17/2026 HEPATITIS B Completed HEPATITIS C SCREENING Completed HIV SCREENING Completed Data reviewed ASSESSMENT/PLAN: 1. Moderate episode of recurrent major depressive disorder (HCC) - ICD9: 296.32, ICD10: F33.1 Start lexapro Follow up in 1 month. Juan Llamas PA-C documented in this encounter [facility] 06-25-2022 Instructions Juan Llamas PA-C - 06/25/2022 7:44 AM EDT Will get an opinion from surgeon to see if they feel a possible hernia in that area. Could consider further testing if worsening or not resolving. documented in this encounter [facility] 06-25-2022 History of Presen t illness Narrative Chief Complaint Patient presents with: Numbness: right lower abdomen HPI Kami Watts is a 56 year old female who presents here today for Above Complaints.. Patient reports numbness in right lower abd for the past couple months. Denies any pain. Does feel like the area is swollen some. No injury to area. No surgeries in that area. No n/v/d. No constipation. Past medical history, appointments, medications, allergies reviewed. Previous Medical History PAST MEDICAL HISTORY Diagnosis Date Abnormal glandular Papanicolaou smear of cervix Abn. Pap smear (cervix) Acquired hypothyroidism 01/29/2016 Labs 01/2015 normal with no meds. Adjustment disorder with depressed mood 08/24/2007 Alcohol abuse 07/17/2021 In ER 09/10/21: Sober since May 11, 2021- checked herself in for detox and is in AA Alcohol dependence in remission (HCC) 08/29/2016 In treatment 04/06/11 Anxiety 06/28/2010 Bilateral hip joint arthritis 04/16/2021 Cervical arthritis 04/16/2021 Decreased libido 08/24/2007 Diabetes mellitus without mention of complication Diabetes mellitus Diarrhea Drug addiction (HCC) In treatment 04/06/11 - prescription pain medication use - NO IV drug use. Esophageal reflux Gastroesophageal reflux Family history of early CAD 01/29/2016 Gastroesophageal reflux disease without esophagitis 01/29/2016 History of hepatitis C treated. Not detected 08/2017 Insomnia, unspecified 08/24/2007 IV drug abuse (HCC) 02/14/2015 Low serum vitamin B12 06/04/2020 Marijuana use 09/01/2017 Urine tox 10/29/2016 Migraine with aura and without status migrainosus, not intractable 08/20/2009 Moderate episode of recurrent major depressive disorder (HCC) 05/24/2020 PMH - PAST MEDICAL HISTORY OF colitis PMH - PAST MEDICAL HISTORY OF enlarged duct pancreas and GB Smoker 02/23/2008 Started at age 9; Up to 2+ PPD Thyrotoxicosis without mention of goiter or other cause, without mention of thyrotoxic crisis or storm Hyperthyroidism Well adult exam 05/10/2015 Last done: 08/29/2016 Previous Surgical History PAST SURGICAL HISTORY Procedure Laterality Date *STRESS TEST PC 11/03/2016 normal COLONOSCOPY FLX DX W/COLLJ SPEC WHEN PFRMD 04/18/15 Colonoscopy, repeat 5 yrs COLONOSCOPY W/BIOPSY SINGLE/MULTIPLE 08/20/06 COLPOSCOPY CERVIX UPPER/ADJACENT VAGINA 1999 Colposcopy DILATED RETINAL EXAM W/EVIDENCE OF RETINOPATHY 12/27/2014 DILATION & CURETTAGE DX&/THER NONOBSTETRIC 1981, 10/2016 Dilation & curettage ENDOMETRIAL BX W/WO ENDOCERVIX BX W/O DILAT SPX 03/03/07 LIG/TRNSXJ FLP TUBE ABDL/VAG APPR UNI/BI 2002 Tubal ligation PAST SURGICAL HISTORY OF 1997 BENIGN TUMOR REMOVED RIGHT HAND PAST SURGICAL HISTORY OF 2012 cataract with lens implant, bilat RPR UMBILICAL HERNIA < 5 YRS REDUCIBLE 2002 Hernia repair, umbilical <5yr Family History FAMILY HISTORY Problem Relation Age of Onset Diabetes Mother colon cancer Coronary Artery Disease Mother Hypertension Mother Hearing Loss Father MT/ colon cancer Stroke Father Diabetes Father Hypertension Father Aneurysm Father Coronary Artery Disease Maternal Grandmother Hypertension Maternal Grandmother Ischemic Heart Disease Maternal Grandfather Hypertension Paternal Grandmother Coronary Artery Disease Paternal Grandmother Coronary Artery Disease Paternal Grandfather Cancer Sister CERVICAL/colon cancer Cancer Paternal Aunt DOESN'T KNOW TYPE Heart Brother MT Hypertension Daughter Colon Cancer Brother Patient Allergies ALLERGIES No Known Allergies Current Medications Current Outpatient Medications on File Prior to Visit Medication Sig albuterol HFA (PROAIR HFA) 90 mcg/actuation inhaler Inhale 2 Puffs as instructed every 4 hours as needed. Buprenorphine-nalOXone (SUBOXONE) 8-2 mg film Dissolve 2 Film under the tongue once daily. No current facility-administered medications on file prior to visit. Social History Social History Tobacco Use Smoking status: Current Every Day Smoker Packs/day: 0.50 Years: 40.00 Pack years: 20.00 Types: Cigarettes Smokeless tobacco: Never Used Tobacco comment: half a pack a day Vaping Use Vaping Use: Never used Substance Use Topics Alcohol use: No Drug use: No Comment: sober since june 01 2014-meth Review of Symptoms REVIEW OF SYSTEMS see hpi EXAM: BP 100/72 (BP Site: Left Arm, BP Position: Sitting, BP Cuff Size: Large Adult) Pulse 88 Temp 36.3 C (97.4 F) Resp 18 Wt 76.7 kg (169 lb) LMP 01/15/2017 (Within Days) BMI 29.01 kg/m General Appearance: Well appearing, alert, in no acute distress, well-hydrated, well nourished.. Abdomen: BS+ wnl. No pain to palp initially. When patient asked to bear down/flex abdomen, palp of right mid low quad is tender. Questionable hernia appreciated in this area. When patient is standing, there is an asymmetry between R and L side. Health Maintenance List PNEUMOCOCCAL(1 - PCV) Never done HPV TESTING due on 02/25/2012 LUNG CANCER SCREENING Never done SHINGRIX VACCINE(1 of 2) Never done COLORECTAL CANCER SCREENING due on 04/18/2020 COVID-19 VACCINE(4 - Booster for Moderna series) due on 06/01/2022 MAMMOGRAM due on 07/09/2022 DTAP,TDAP,TD(1 - Tdap) due on 01/24/2023 INFLUENZA(1) due on 07/24/2022 ANNUAL PCP TEAM CHRONIC DISEASE VISIT due on 04/16/2023 PAP TESTING due on 01/03/2024 DIABETES SCREEN due on 07/17/2024 LIPID SCREEN due on 07/17/2026 HEPATITIS C SCREENING Completed HIV SCREENING Completed Data reviewed ASSESSMENT/PLAN: 1. Right lower quadrant abdominal pain - ICD9: 789.03, ICD10: R10.31 - Will get an opinion from surgeon for possible hernia. Could consider imaging and EMG - CONSULT TO GENERAL SURGERY Juan Llamas PA-C documented in this encounter [facility] 06-22-2022 History of Presen t illness Narrative Patient presents with [facility] care triage with right lower abdominal numbness for months. She has not seen pcp regarding this per patient. This has not changed recently. She was in ER a few days ago for right arm pain. No abdominal pain today. No fever. No urinary symptoms. Discussed I would recommend pcp for this. Patient scheduled. documented in this encounter [facility] 04-16-2022 History of Presen t illness Narrative Chief Complaint Patient presents with: Depression HPI Kami Watts is a 56 year old female who presents here today for Above Complaints.. Patient has been having increasing anxiety over the past couple months. Getting to the point that she can't get things done and effecting interactions with other. She is set to start [facility] IOP tomorrow. Has been having chest pain on going. Not sure if related to anxiety symptoms. She has HERNANDEZ chronically. Reports a hx of PVCs but not documentation of this in chart. Has been increased recently with the stress. Last 6 Encounter BP Readings: Date: BP: 04/16/2022 82/60 03/06/2022 120/78 01/24/2022 110/64 01/22/2022 146/86 10/27/2021 118/72 09/06/2021 124/80 Past medical history, appointments, medications, allergies reviewed. Previous Medical History PAST MEDICAL HISTORY Diagnosis Date Abnormal glandular Papanicolaou smear of cervix Abn. Pap smear (cervix) Acquired hypothyroidism 01/29/2016 Labs 01/2015 normal with no meds. Adjustment disorder with depressed mood 08/24/2007 Alcohol abuse 07/17/2021 In ER 09/10/21: Sober since May 11, 2021- checked herself in for detox and is in AA Alcohol dependence in remission (HCC) 08/29/2016 In treatment 04/06/11 Anxiety 06/28/2010 Bilateral hip joint arthritis 04/16/2021 Cervical arthritis 04/16/2021 Decreased libido 08/24/2007 Diabetes mellitus without mention of complication Diabetes mellitus Diarrhea Drug addiction (HCC) In treatment 04/06/11 - prescription pain medication use - NO IV drug use. Esophageal reflux Gastroesophageal reflux Family history of early CAD 01/29/2016 Gastroesophageal reflux disease without esophagitis 01/29/2016 History of hepatitis C treated. Not detected 08/2017 Insomnia, unspecified 08/24/2007 IV drug abuse (HCC) 02/14/2015 Low serum vitamin B12 06/04/2020 Marijuana use 09/01/2017 Urine tox 10/29/2016 Migraine with aura and without status migrainosus, not intractable 08/20/2009 Moderate episode of recurrent major depressive disorder (HCC) 05/24/2020 PMH - PAST MEDICAL HISTORY OF colitis PMH - PAST MEDICAL HISTORY OF enlarged duct pancreas and GB Smoker 02/23/2008 Started at age 9; Up to 2+ PPD Thyrotoxicosis without mention of goiter or other cause, without mention of thyrotoxic crisis or storm Hyperthyroidism Well adult exam 05/10/2015 Last done: 08/29/2016 Previous Surgical History PAST SURGICAL HISTORY Procedure Laterality Date *STRESS TEST PC 11/03/2016 normal COLONOSCOPY FLX DX W/COLLJ SPEC WHEN PFRMD 04/18/15 Colonoscopy, repeat 5 yrs COLONOSCOPY W/BIOPSY SINGLE/MULTIPLE 08/20/06 COLPOSCOPY CERVIX UPPER/ADJACENT VAGINA 1999 Colposcopy DILATED RETINAL EXAM W/EVIDENCE OF RETINOPATHY 12/27/2014 DILATION & CURETTAGE DX&/THER NONOBSTETRIC 1981, 10/2016 Dilation & curettage ENDOMETRIAL BX W/WO ENDOCERVIX BX W/O DILAT SPX 03/03/07 LIG/TRNSXJ FLP TUBE ABDL/VAG APPR UNI/BI 2002 Tubal ligation PAST SURGICAL HISTORY OF 1997 BENIGN TUMOR REMOVED RIGHT HAND PAST SURGICAL HISTORY OF 2012 cataract with lens implant, bilat RPR UMBILICAL HERNIA < 5 YRS REDUCIBLE 2002 Hernia repair, umbilical <5yr Family History FAMILY HISTORY Problem Relation Age of Onset Diabetes Mother colon cancer Coronary Artery Disease Mother Hypertension Mother Hearing Loss Father MT/ colon cancer Stroke Father Diabetes Father Hypertension Father Aneurysm Father Coronary Artery Disease Maternal Grandmother Hypertension Maternal Grandmother Ischemic Heart Disease Maternal Grandfather Hypertension Paternal Grandmother Coronary Artery Disease Paternal Grandmother Coronary Artery Disease Paternal Grandfather Cancer Sister CERVICAL/colon cancer Cancer Paternal Aunt DOESN'T KNOW TYPE Heart Brother MT Hypertension Daughter Colon Cancer Brother Patient Allergies ALLERGIES No Known Allergies Current Medications Current Outpatient Medications on File Prior to Visit Medication Sig albuterol HFA (PROAIR HFA) 90 mcg/actuation inhaler Inhale 2 Puffs as instructed every 4 hours as needed. Buprenorphine-nalOXone (SUBOXONE) 8-2 mg film Dissolve 2 Film under the tongue once daily. guaiFENesin (MUCINEX) 600 mg 12 hr tablet Take 2 tablets by mouth twice daily. (Patient not taking: Reported on 01/22/2022 ) traZODone (DESYREL) 50 mg tablet Take 1 tablet by mouth daily at bedtime. (Patient not taking: Reported on 01/22/2022 ) soy isofl/blk coh/gr tea/yerba (ESTROVEN ENERGY ORAL) Take by mouth. (Patient not taking: Reported on 01/22/2022 ) cyanocobalamin (VITAMIN B-12) 1,000 mcg tab Take 1 tablet by mouth once daily. (Patient not taking: Reported on 01/22/2022 ) No current facility-administered medications on file prior to visit. Social History Social History Tobacco Use Smoking status: Current Every Day Smoker Packs/day: 0.50 Years: 40.00 Pack years: 20.00 Types: Cigarettes Smokeless tobacco: Never Used Tobacco comment: half a pack a day Vaping Use Vaping Use: Never used Substance Use Topics Alcohol use: No Drug use: No Comment: sober since june 01 2014-meth Review of Symptoms REVIEW OF SYSTEMS see hpi EXAM: BP 82/60 (BP Site: Left Arm, BP Position: Sitting, BP Cuff Size: Large Adult) Pulse 60 Temp 36.7 C (98.1 F) Resp 16 Wt 78 kg (172 lb) LMP 01/15/2017 (Within Days) BMI 29.52 kg/m General Appearance: Well appearing, alert, in no acute distress, well-hydrated, well nourished.. Neck: Supple, no adenopathy; thyroid symmetric, normal size, no bruits. Lungs: Lungs clear to auscultation. No wheezing, rhonchi, rales.. Heart: +ectopic beats noted. Regular rate. Psych: tearful.. Health Maintenance List PNEUMOCOCCAL(1 - PCV) Never done HPV TESTING due on 02/25/2012 LUNG CANCER SCREENING Never done SHINGRIX VACCINE(1 of 2) Never done COLORECTAL CANCER SCREENING due on 04/18/2020 MAMMOGRAM due on 07/09/2022 DTAP,TDAP,TD(1 - Tdap) due on 01/24/2023 COVID-19 VACCINE(4 - Booster for Moderna series) due on 06/01/2022 INFLUENZA(Season Ended) due on 07/24/2022 ANNUAL PCP TEAM CHRONIC DISEASE VISIT due on 01/24/2023 PAP TESTING due on 01/03/2024 DIABETES SCREEN due on 07/17/2024 LIPID SCREEN due on 07/17/2026 HEPATITIS C SCREENING Completed HIV SCREENING Completed Data reviewed ASSESSMENT/PLAN: 1. Chest pain, unspecified type - ICD9: 786.50, ICD10: R07.9 (primary diagnosis) Unclear etiology. May be stress related but cannot rule out cardiac. Need stress testing completed. - EXERCISE STRESS ECG (WITHOUT IMAGING) 2. HERNANDEZ (dyspnea on exertion) - ICD9: 786.09, ICD10: R06.00 As above - EXERCISE STRESS ECG (WITHOUT IMAGING) 3. Palpitations - ICD9: 785.1, ICD10: R00.2 As above Patient states chronic and worse with stress - EXERCISE STRESS ECG (WITHOUT IMAGING) 4. Current moderate episode of major depressive disorder, unspecified whether recurrent (HCC) - ICD9: 296.22, ICD10: F32.1 Patient is schedule to enter into the intensive outpatient program through [facility] Will let them start medication management. - EXERCISE STRESS ECG (WITHOUT IMAGING) Juan Llamas PA-C documented in this encounter [facility] 03-06-2022 History of Presen t illness Narrative Subjective HPI Nontoxic-appearing female presents urgent care chief complaint right flank pain. Duration of symptom on and off for the last month. Associated symptoms right flank pain. Patient states pain is increased today. Rates pain 8-9 out of 10. Has been using naproxen this is helped some. Has been seen multiple times in ED and by surgery for right upper quadrant pain. Suspicious of gastritis. Due to naproxen use. Denies any known sick contacts. Denies any fever nausea vomiting abdominal pain chest pain shortness of breath or change in bowel or bladder habits. Past medical history prescription medication use allergies reviewed. .Patient presents with: Pain, Back: (RT) kidney area, lower back \rated 8, x1 month PAST MEDICAL HISTORY Diagnosis Date Abnormal glandular Papanicolaou smear of cervix Abn. Pap smear (cervix) Acquired hypothyroidism 01/29/2016 Labs 01/2015 normal with no meds. Adjustment disorder with depressed mood 08/24/2007 Alcohol abuse 07/17/2021 In ER 09/10/21: Sober since May 11, 2021- checked herself in for detox and is in AA Alcohol dependence in remission (HCC) 08/29/2016 In treatment 04/06/11 Anxiety 06/28/2010 Bilateral hip joint arthritis 04/16/2021 Cervical arthritis 04/16/2021 Decreased libido 08/24/2007 Diabetes mellitus without mention of complication Diabetes mellitus Diarrhea Drug addiction (HCC) In treatment 04/06/11 - prescription pain medication use - NO IV drug use. Esophageal reflux Gastroesophageal reflux Family history of early CAD 01/29/2016 Gastroesophageal reflux disease without esophagitis 01/29/2016 History of hepatitis C treated. Not detected 08/2017 Insomnia, unspecified 08/24/2007 IV drug abuse (HCC) 02/14/2015 Low serum vitamin B12 06/04/2020 Marijuana use 09/01/2017 Urine tox 10/29/2016 Migraine with aura and without status migrainosus, not intractable 08/20/2009 Moderate episode of recurrent major depressive disorder (HCC) 05/24/2020 PMH - PAST MEDICAL HISTORY OF colitis PMH - PAST MEDICAL HISTORY OF enlarged duct pancreas and GB Smoker 02/23/2008 Started at age 9; Up to 2+ PPD Thyrotoxicosis without mention of goiter or other cause, without mention of thyrotoxic crisis or storm Hyperthyroidism Well adult exam 05/10/2015 Last done: 08/29/2016 PAST SURGICAL HISTORY Procedure Laterality Date *STRESS TEST PC 11/03/2016 normal COLONOSCOPY FLX DX W/COLLJ SPEC WHEN PFRMD 04/18/15 Colonoscopy, repeat 5 yrs COLONOSCOPY W/BIOPSY SINGLE/MULTIPLE 08/20/06 COLPOSCOPY CERVIX UPPER/ADJACENT VAGINA 1999 Colposcopy DILATED RETINAL EXAM W/EVIDENCE OF RETINOPATHY 12/27/2014 DILATION & CURETTAGE DX&/THER NONOBSTETRIC 1981, 10/2016 Dilation & curettage ENDOMETRIAL BX W/WO ENDOCERVIX BX W/O DILAT SPX 03/03/07 LIG/TRNSXJ FLP TUBE ABDL/VAG APPR UNI/BI 2003 Tubal ligation PAST SURGICAL HISTORY OF 1997 BENIGN TUMOR REMOVED RIGHT HAND PAST SURGICAL HISTORY OF 2012 cataract with lens implant, bilat RPR UMBILICAL HERNIA < 5 YRS REDUCIBLE 2002 Hernia repair, umbilical <5yr ALLERGIES Patient has no known allergies. MEDICATIONS albuterol HFA (PROAIR HFA) 90 mcg/actuation inhaler Inhale 2 Puffs as instructed every 4 hours as needed. Buprenorphine-nalOXone (SUBOXONE) 8-2 mg film Dissolve 2 Film under the tongue once daily. guaiFENesin (MUCINEX) 600 mg 12 hr tablet Take 2 tablets by mouth twice daily. traZODone (DESYREL) 50 mg tablet Take 1 tablet by mouth daily at bedtime. soy isofl/blk coh/gr tea/yerba (ESTROVEN ENERGY ORAL) Take by mouth. cyanocobalamin (VITAMIN B-12) 1,000 mcg tab Take 1 tablet by mouth once daily. FAMILY HISTORY Problem Relation Age of Onset Diabetes Mother colon cancer Coronary Artery Disease Mother Hypertension Mother Hearing Loss Father MT/ colon cancer Stroke Father Diabetes Father Hypertension Father Aneurysm Father Coronary Artery Disease Maternal Grandmother Hypertension Maternal Grandmother Ischemic Heart Disease Maternal Grandfather Hypertension Paternal Grandmother Coronary Artery Disease Paternal Grandmother Coronary Artery Disease Paternal Grandfather Cancer Sister CERVICAL/colon cancer Cancer Paternal Aunt DOESN'T KNOW TYPE Heart Brother MT Hypertension Daughter Colon Cancer Brother Social History Tobacco Use Smoking status: Current Every Day Smoker Packs/day: 0.50 Years: 40.00 Pack years: 20.00 Types: Cigarettes Smokeless tobacco: Never Used Tobacco comment: half a pack a day Vaping Use Vaping Use: Never used Substance Use Topics Alcohol use: No Drug use: No Comment: sober since june 01 2014-meth BP 120/78 Pulse 64 Resp 20 Wt 79.7 kg (175 lb 9.6 oz) LMP 01/15/2017 (Within Days) SpO2 98% BMI 30.14 kg/m Review of Systems Constitutional: Negative for chills, fever and malaise/fatigue. HENT: Negative for congestion, ear discharge, ear pain, sinus pain and sore throat. Eyes: Negative for blurred vision, pain, discharge and redness. Respiratory: Negative for cough, hemoptysis, sputum production, shortness of breath, wheezing and stridor. Cardiovascular: Negative for chest pain. Gastrointestinal: Negative for abdominal pain, diarrhea, nausea and vomiting. Genitourinary: Positive for flank pain. Negative for dysuria, frequency, hematuria and urgency. Musculoskeletal: Positive for back pain. Negative for falls, joint pain, myalgias and neck pain. Skin: Negative for itching and rash. Neurological: Negative for dizziness and headaches. Objective Physical Exam Constitutional: General: She is not in acute distress. Appearance: She is not diaphoretic. HENT: Head: Normocephalic. Mouth/Throat: Mouth: Mucous membranes are moist. Pharynx: Oropharynx is clear. No oropharyngeal exudate or posterior oropharyngeal erythema. Eyes: Conjunctiva/sclera: Conjunctivae normal. Pupils: Pupils are equal, round, and reactive to light. Cardiovascular: Rate and Rhythm: Normal rate and regular rhythm. Heart sounds: Normal heart sounds. Pulmonary: Effort: Pulmonary effort is normal. No tachypnea, accessory muscle usage or respiratory distress. Breath sounds: Normal breath sounds. No stridor. Abdominal: Palpations: Abdomen is soft. Tenderness: There is no abdominal tenderness. There is right CVA tenderness. There is no left CVA tenderness. Musculoskeletal: Cervical back: Normal range of motion and neck supple. No rigidity or tenderness. Lymphadenopathy: Cervical: No cervical adenopathy. Skin: General: Skin is warm and dry. Neurological: Mental Status: She is alert and oriented to person, place, and time. ASSESSMENT/PLAN: 1. Right flank pain - ICD9: 789.09, ICD10: R10.9 Patient diagnosis right flank pain. Suspicious of muscle skeletal pain. We discussed pain management. We discussed getting an appointment with PCP in the next 1 to 2 days for follow-up and reevaluation. Patient states pain is too severe she would like to be seen in ED for further evaluation care. Patient will proceed to [facility] for further evaluation and care. Rayna Ramirez APRN.CNP documented in this encounter [facility] Evaluation + Plan note No data available for this section [facility] Diagnosis Chest pain, unspecified type- Primary HERNANDEZ (dyspnea on exertion) Other dyspnea and respiratory abnormality Palpitations Current moderate episode of major depressive disorder, unspecified whether recurrent (HCC) [facility] Diagnosis AP[facility]MENT CANCELLED- Primary [facility] Diagnosis Right lower quadrant abdominal pain- Primary Abdominal pain, right lower quadrant documented in this encounter [facility] note* Diagnosis Moderate episode of recurrent major depressive disorder (HCC)- Primary documented in this encounter [facility] note* Diagnosis Encounter for screening mammogram for breast cancer documented in this encounter [facility] note* Diagnosis Cystocele, midline- Primary Rectocele documented in this encounter [facility] note* Diagnosis EDER (generalized anxiety disorder)- Primary Generalized anxiety disorder Moderate episode of recurrent major depressive disorder (HCC) Weight loss Loss of weight Screening for diabetes mellitus Encounter for lipid screening for cardiovascular disease Screening for lipoid disorders documented in this encounter [facility] note* Diagnosis URI, acute- Primary Acute upper respiratory infections of unspecified site Sore throat Acute pharyngitis documented in this encounter [facility] note* Diagnosis Sore throat- Primary Acute pharyngitis Flu-like symptoms Other general symptoms Nausea and vomiting, unspecified vomiting type documented in this encounter [facility] note* Diagnosis Encounter for screening mammogram for breast cancer documented in this encounter [facility] Discharge instructions No data available for this section [facility] Progress note No data available for this section [facility] Reason for referral (narrative)* Diagnostic Procedure Only (Routine) - Pending Review Specialty Diagnoses / Procedures Referred By Saima toscano Referred To Contact [facility] Diagnoses Encounter for screening mammogram for breast cancer Procedures DAYNA SCREENING SCREENING MAMMOGRAPHY BI 2-VIEW BREAST INC CAD Rayna Dueñas MD [address] [place] [address] [facility] [address] [place] [address] Referral ID Status Reason Start Date Expiration Date Visits Requested Visits Authorized [id number] Pending Review Auto-Generat ed Referral 08/20/2022 09/19/2023 [facility] Diagnostic Procedure Only (Routine) - Pending Review Specialty Diagnoses / Procedures Referred By Contac t Referred To Contact [facility] Diagnoses Encounter for screening mammogram for breast cancer Procedures DAYNA SCREENING SCREENING MAMMOGRAPHY BI 2-VIEW BREAST INC CAD Rayna Dueñas MD [address] [place] [address] [facility] [address] [place] [address] Referral ID Status Reason Start Date Expiration Date Visits Requested Visits Authorized [id number] Pending Review Auto-Generat ed Referral 07/29/2023 08/27/2024 1 1 [facility] Summary Purpose Family History No Family History Records FoundNo Family History Records FoundNo Family History Records FoundNo Family History Records FoundNo Family History Records Found Advance Directives No Advanced Directives Records FoundDocuments on File Type Date Recorded Patient Vision Therapist Expl anation Advance Directive(s) 11/04/2016 12:44 PM Advance Directive(s) 10/29/2016 11:14 AM Documents on File Type Date Recorded Patient Vision Therapist Expl anation Advance Directive(s) 11/04/2016 12:44 PM Advance Directive(s) 10/29/2016 11:14 AM Reason for Referral Specialty Diagnoses / Procedures Referred By Contac t Referred To Contact General Surgery Diagnoses Right lower quadrant abdominal pain Procedures CONSULT TO GENERAL SURGERY OFFICE/OUTPATIENT [facility] MDM 60-74 MINUTES Juan Llamas PA-C [address] [place] [address] Referral ID Status Reason Start Date Expiration Date Visits Requested Visits Authorized [id number] Authorized PCP Requested Referral 06/25/2022 06/25/2023 1 1 Specialty Diagnoses / Procedures Referred By Contac t Referred To Contact Diagnoses Cystocele, midline Rectocele Procedures CONSULT TO URO GYNECOLOGY Lou Yu APRN.MILITARY EQUIPMENT SPECIALIST [address] [place] [address] Referral ID Status Reason Start Date Expiration Date Visits Requested Visits Authorized [id number] Ref Not Required PCP Requested Referral 10/01/2022 10/01/2023 1 1 Health Concerns Infection Onset Date Last Indicated Resolved Time COVID-19 Rule-Out 03/23/2023 03/23/2023 03/24/2023 5:05 AM EDT Additional Source Comments INFORMATION SOURCE (unrecogn ized section and content) DATE CREATED AUTHOR AUTHOR'S ORGANIZ ATION 01/11/2019 [facility] DATE CREATED AUTHOR AUTHOR'S ORGANIZ ATION 02/07/2020 [facility] [place] DATE CREATED AUTHOR AUTHOR'S ORGANIZ ATION 10/09/2022 [facility] ([place]) DATE CREATED AUTHOR AUTHOR'S ORGANIZ ATION 11/19/2023 [facility] Source Comments (unrecognize d section and content) In the event this informatio n is protected by the Federal Confidentiality of Alcohol and Drug Abuse Patient Records regulations: The Federal rules restrict any use of the information to criminally investigate or prosecute any alcohol or drug abuse patient.[facility] the event this information is protected by the Federal Confidentiality of Alcohol and Drug Abuse Patient Records regulations: The Federal rules restrict any use of the information to criminally investigate or prosecute any alcohol or drug abuse patient.[facility] the event this information is protected by the Federal Confidentiality of Alcohol and Drug Abuse Patient Records regulations: The Federal rules restrict any use of the information to criminally investigate or prosecute any alcohol or drug abuse patient.[facility] the event this information is protected by the Federal Confidentiality of Alcohol and Drug Abuse Patient Records regulations: The Federal rules restrict any use of the information to criminally investigate or prosecute any alcohol or drug abuse patient.[facility] the event this information is protected by the Federal Confidentiality of Alcohol and Drug Abuse Patient Records regulations: The Federal rules restrict any use of the information to criminally investigate or prosecute any alcohol or drug abuse patient.[facility] the event this information is protected by the Federal Confidentiality of Alcohol and Drug Abuse Patient Records regulations: The Federal rules restrict any use of the information to criminally investigate or prosecute any alcohol or drug abuse patient.[facility] the event this information is protected by the Federal Confidentiality of Alcohol and Drug Abuse Patient Records regulations: The Federal rules restrict any use of the information to criminally investigate or prosecute any alcohol or drug abuse patient.[facility] the event this information is protected by the Federal Confidentiality of Alcohol and Drug Abuse Patient Records regulations: The Federal rules restrict any use of the information to criminally investigate or prosecute any alcohol or drug abuse patient.[facility] Hospital[facility] the event this information is protected by the Federal Confidentiality of Alcohol and Drug Abuse Patient Records regulations: The Federal rules restrict any use of the information to criminally investigate or prosecute any alcohol or drug abuse patient.[facility] the event this information is protected by the Federal Confidentiality of Alcohol and Drug Abuse Patient Records regulations: The Federal rules restrict any use of the information to criminally investigate or prosecute any alcohol or drug abuse patient.[facility] the event this information is protected by the Federal Confidentiality of Alcohol and Drug Abuse Patient Records regulations: The Federal rules restrict any use of the information to criminally investigate or prosecute any alcohol or drug abuse patient.[facility] the event this information is protected by the Federal Confidentiality of Alcohol and Drug Abuse Patient Records regulations: The Federal rules restrict any use of the information to criminally investigate or prosecute any alcohol or drug abuse patient.[facility] Hospital[facility] the event this information is protected by the Federal Confidentiality of Alcohol and Drug Abuse Patient Records regulations: The Federal rules restrict any use of the information to criminally investigate or prosecute any alcohol or drug abuse patient.[facility] Hospital[facility] the event this information is protected by the Federal Confidentiality of Alcohol and Drug Abuse Patient Records regulations: The Federal rules restrict any use of the information to criminally investigate or prosecute any alcohol or drug abuse patient.[facility] the event this information is protected by the Federal Confidentiality of Alcohol and Drug Abuse Patient Records regulations: The Federal rules restrict any use of the information to criminally investigate or prosecute any alcohol or drug abuse patient.[facility] Hospital[facility] the event this information is protected by the Federal Confidentiality of Alcohol and Drug Abuse Patient Records regulations: The Federal rules restrict any use of the information to criminally investigate or prosecute any alcohol or drug abuse patient.[facility] the event this information is protected by the Federal Confidentiality of Alcohol and Drug Abuse Patient Records regulations: The Federal rules restrict any use of the information to criminally investigate or prosecute any alcohol or drug abuse patient.[facility] Reason for Visit (unrecogniz ed section and content) Reason Comments Depression Reason Comments Numbness right lower abdomen Reason Comments Depression Discuss medications for depression Reason Comments Prolapse Reason Comments Anxiety Reason Comments Results Reason Comments Consult Reason Comments Sore Throat MENDEZ x 6 days Reason Comments Nausea Sore throat, chills started this morning Reason Comments Outside [id number] Ordered Reason Comments ext document Uro Procedure Care Teams (unrecognized sec tion and content) Investigator Welfare Relationship Specialty Start Date End Date Rayna Dueñas MD [address] [place] [address] PCP - General Family Practice 01/17/16 Investigator Welfare Relationship Specialty Start Date End Date Rayna Dueñas MD [address] [facility] [place] [address] PCP - General Family Practice 01/17/16 Investigator Welfare Relationship Specialty Start Date End Date Rayna Dueñas MD [address] [facility] [address] PCP - General Family Practice 01/17/16 Investigator Welfare Relationship Specialty Start Date End Date Rayna Dueñas MD [address] [facility] [place] [address] PCP - General Family Practice 01/17/16 Investigator Welfare Relationship Specialty Start Date End Date Rayna Dueñas MD [facility] [place] [address] PCP - General Family Medicine 01/17/16 Investigator Welfare Relationship Specialty Start Date End Date Rayna Dueñas MD [facility] [place] [address] PCP - General Family Medicine 01/17/16 Investigator Welfare Relationship Specialty Start Date End Date Rayna Dueñas MD [facility] [place] [address] PCP - General Family Medicine 01/17/16 Investigator Welfare Relationship Specialty Start Date End Date Rayna Dueñas MD [facility] [place] [address] PCP - General Family Medicine 01/17/16 Investigator Welfare Relationship Specialty Start Date End Date Rayna Dueñas MD [facility] [place] [address] PCP - General Family Medicine 01/17/16 Investigator Welfare Relationship Specialty Start Date End Date Rayna Dueñas MD [address] [place] [address], [place] [address] PCP - General Family Medicine 01/17/16 Investigator Welfare Relationship Specialty Start Date End Date Rayna Dueñas MD [address], [place] [address] PCP - General Family Medicine 01/17/16 Investigator Welfare Relationship Specialty Start Date End Date Rayna Dueñas MD [address], [place] [address] PCP - General Family Medicine 01/17/16 Investigator Welfare Relationship Specialty Start Date End Date Rayna Dueñas MD [address] [place] [address] PCP - General Family Medicine 01/17/16 Investigator Welfare Relationship Specialty Start Date End Date Rayna Dueñas MD [address], [place] [address] PCP - General Family Medicine 01/17/16 Investigator Welfare Relationship Specialty Start Date End Date Rayna Dueñas MD [address], [place] [address] PCP - General Family Medicine 01/17/16 Care Team (unrecognized sect ion and content) Care Team Personnel Name: RAYNA DUEÑAS MD Member Role: Primary Care Physician Address: Address: [address] [place] [address]- Name: ARJUN SLAUGHTER MD Position: ED Physician Member Role: Attending Physician Address: Address: [facility] [address] [place] [address]- Name: Diamond Botello RN Position: AO RN Member Role: RN Care Team Related Persons Name: LAURA ANGLIN FOR RECORDS PERTAINING TO PATIENTS WHO ARE OR HAVE BEEN ENROLLED IN A CHEMICAL DEPENDENCY/SUBSTANCEABUSE PROGRAM, SOME INFORMATION MAY BE OMITTED. This clinical summary was aggregated from multiple sources. Caution should be exercised in using it in the provision of clinical care. This summary normalizes information from multiple sources, and as a consequence, information in this document may materially change the coding, format and clinical context of patient data. In addition, data may be omitted in some cases. CLINICAL DECISIONS SHOULD BE BASED ON THE PRIMARY CLINICAL RECORDS. [facility] [employer] [facility]. provides no warranty or guarantee of the accuracy or completeness of information in this document.
[2023-11-20 14:18] LABS: Anion Gap 0 (5-15); BUN 15 mg/dL (7-18); BUN/Creat Ratio 24.8 RATIO (10-20); Calcium,Total 8.8 mg/dL (8.5-10.1); Chloride 110 mmol/L (98-107); EST Glomerular Filtration Rate 108 mL/min (>60); Est Glom Filt Rate - Afr Amer 131 mL/min (>60); Estimated Creatinine Clearance 88.25 ml/min; Glucose 90 mg/dL (74-106); Potassium 4.2 mmol/L (3.5-5.1); Sodium Level 140 mmol/L (136-145); Troponin-I HS (w/2H Reflex) 6 pg/mL (3.0-54.0)
[2023-11-20 15:57] LABS: Reflex Troponin-HS? (from REC) Y
== END 2023-11-20 15:41 | disposition home or self-care (01) ==
PROVIDERS: Emergency Provider Emergency Medicine; PCP Family Medicine; Referring Provider Emergency Medicine; Visit Provider Emergency Medicine
DX: U07.1 COVID-19 (principal); M54.6 Pain in thoracic spine; Z90.710 Acquired absence of both cervix and uterus; F17.210 Nicotine dependence, cigarettes, uncomplicated
CPT/HCPCS: 71045; 80048; 84484; 85025; 85379; 93005; 96374; 99284; A4216

== ENCOUNTER 2024-07-13 16:49 | Inpatient (IN) | payer MEDICARE, MEDICAID, SELFPAY ==
[2024-07-13] VITALS (8 sets, daily range): BP systolic 104–133; BP diastolic 52–82; PULSE 64–101; RESP 14–20; TEMP 36.2–36.9; O2SAT 94–100; BMI 31.6; BMI 32.1
[2024-07-13 17:26] LABS: Absolute Lymphocyte Count 3.22 X10^3/uL (0.83-4.51); Absolute Neutrophil Count 4.5 X10^3/uL (2.0-7.7); Basophil# 0.08 X10^3/uL; Basophil% 0.9 % (0-1); Eosinophil# 0.33 X10^3/uL; Eosinophils% 3.8 % (0-5); Hematocrit 45.8 % (37-47); Hemoglobin 15.8 g/dL (12.0-15.0); Lymphocyte # 3.22 X10^3/ul (0.83-4.51); Mean Corp Hgb Conc 34.5 g/dL (32-36); Mean Corpuscular Hgb 31.2 pg (27.0-32.0); Mean Corpuscular Volume 90.5 fL (81-99); Mean Platelet Vol. 9.3 fl (6.2-12.0); Monocyte# 0.57 X10^3/uL; Monocyte% 6.5 % (0-10); NRBC Flagged by Analyzer 0 % (0-5); Neutrophil # 4.49 X10^3/uL (2.7-7.7); Neutrophil % 51.6 % (47-70); Platelet Count 358 K/mm3 (150-450); RBC Distribution Width CV 13.5 % (11.6-14.6); RBC Distribution Width SD 45.1 fl (35.1-43.9); Red Blood Count 5.06 M/mm3 (4.2-5.4); White Blood Count 8.7 K/mm3 (4.4-11.0)
[2024-07-13] MEDS: Phenobarbital 32.4 MG Tablet 97.2 MG PO (17:39)
--- NOTE | 2024-07-13 17:40 | EDS_ITS ---
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 Patient states she has been drinking heavily for the past 3 weeks or so. She has been drinking 1-2 bottles/jugs of Frank? Jeffry premade margaritas. She states she is following with Dr. Manning in 180 and would like to quit drinking. She states she does get shaky if she does not have a drink. She states she gets a lot of symptoms when she wakes in the morning including coughing and gagging but then she states that she drinks to try to avoid the symptoms. Last drink was Last night. No other complaints or concerns at this time. Does report marijuana use but denies any other substance use. Has no physical complaints at this time. States she is a heavy smoker. [facility] Medical History Wears dentures Wears glasses Post-menopausal Bladder disease Hearing loss, left Hearing loss, right Osteoporosis Smoker Migraines Anxiety Depression Hepatitis Irregular heart beat Drug abuse Alcohol abuse Duodenitis Home Medications ?Medication ?Instructions ?Recorded ?Last Taken ?Type albuterol sulfate 90 mcg/actuation 2 puff inhalation Q6H PRN SOB 01/28/22 Unknown History aerosol inhaler buprenorphine 8 mg-naloxone 2 mg 1 ea sublingual BID 07/13/24 07/13/24 History sublingual film Allergy/AdvReac Type Severity Reaction Status Date / Time No Known Allergies Allergy Verified 07/13/24 16:50 Family History Mother Breast cancer Heart disease Hypertension Diabetes Father Cancer pt is unsure what kind of cancer Heart disease Hypertension Diabetes Sister Breast cancer Sister Ovarian cancer Surgical History S/P vaginal hysterectomy Hx of hand surgery History of cataract surgery History of tubal ligation History of umbilical hernia repair Social History adopted: No household members: none number of children: 6 current occupational status: unemployed pets and animals: Yes pets and animals: cat(s) sexually active: No Smoking Status: Heavy Smoker (>10/day) alcohol intake: former details: pt sober since 2020 caffeine: Yes seatbelt use: always do you feel safe at home: Yes ROS ROS ED Constitutional Constitutional ED: Denies chills or fever(s) Eyes Eyes: Denies change in vision Cardiovascular Cardiovascular: Denies chest pain Respiratory/Chest Respiratory/Chest: Reports cough; Denies dyspnea Gastrointestinal Gastrointestinal: Denies abdominal pain, nausea or vomiting Musculoskeletal Musculoskeletal: Denies arthralgias or myalgias Psychiatric Psychiatric: Reports anxiety and other Details: alcohol abuse EXAM Physical Exam Const Vital Signs: 07/13/24 16:50 07/13/24 16:57 07/13/24 17:49 Temperature 97.2 F L 97.8 F Temperature Source Temporal Temporal Pulse Rate 101 H 89 64 Respiratory Rate 18 20 H 16 Blood Pressure 123/82 H 116/80 108/52 L Blood Pressure Mean 95 92 70 Blood Pressure Source Monitor Blood Pressure Position Sitting Blood Pressure Location Right Arm Pulse Ox 96 94 96 Oxygen Delivery Method Room Air Room Air Room Air Positive well nourished and well developed General Appearance ED: well developed and NAD HEENT Reports moist mucous membranes Eyes General Eye ED: Negative for scleral icterus Neck supple Chest Wall inspection of chest normal and palpation of chest normal Resp normal respiratory effort and clear to auscultation bilaterally Cardio regular rate and regular rhythm GI soft to palpation and non-tender Extremity General Extremety ED: Negative for edema General Extremity: Negative for edema Neuro oriented x3 Sensorium / Orientation: alert Motor Exam: Negative for general weakness Psych mental status grossly normal and thought process normal Mood & Affect: anxious; Negative for tearful Skin Rashes: No no rashes MDM MDM MDM Narrative Medical decision making narrative: Patient evaluated for request of alcohol detox. Patient peers nontoxic no acute distress. Initial heart rate is mild tachycardia but this normalized without intervention. She otherwise is well-appearing. Does not appear to have findings consistent with acute alcohol withdrawal/DTs at this time however she is given dose of phenobarbital in the emergency room given her presenting tachycardia. ED addiction orders/screening labs obtained. Patient's case is discussed with Dr. Herndon and she is admitted to medicine service. Is also given nicotine patch in the emergency room. Patient agreeable with the plan of care. Lab Data Attestation: I reviewed the patient's lab results. Labs: Laboratory Results - last 24 hr 07/13/24 07/13/24 17:07 17:14 WBC 8.7 RBC 5.06 Hgb 15.8 H Hct 45.8 MCV 90.5 MCH 31.2 MCHC 34.5 RDW Std Deviation 45.1 H RDW Coeff of Mamta 13.5 Plt Count 358 MPV 9.3 Immature Gran % (Auto) 0.200 Neut % (Auto) 51.6 Lymph % (Auto) 37.0 [place] % (Auto) 6.5 Eos % (Auto) 3.8 Baso % (Auto) 0.9 Absolute Neuts (auto) 4.5 Absolute Lymphs (auto) 3.22 Nucleated RBC % 0 Sodium 139 Potassium 3.9 Chloride 107 Carbon Dioxide 27.0 Anion Gap 5 BUN 12 Creatinine 0.76 Estim Creat Clear Calc 80.33 Est GFR (MDRD) Af Amer 101 Est GFR (MDRD) Non-Af 83 BUN/Creatinine Ratio 15.9 Glucose 93 Calcium 9.5 Total Bilirubin 0.50 AST 12 L ALT 15 Alkaline Phosphatase 108 Total Protein 7.2 Albumin 3.8 Globulin 3.4 Albumin/Globulin Ratio 1.1 Urine Opiates Screen NEGATIVE Urine Methadone Screen NEGATIVE Ur Barbiturates Screen NEGATIVE Ur Phencyclidine Scrn NEGATIVE Ur Amphetamines Screen NEGATIVE MDMA (Ecstasy) Screen NEGATIVE U Benzodiazepines Scrn NEGATIVE Urine Cocaine Screen NEGATIVE U Cannabinoids Screen POSITIVE H Ur Drug Screen Comment Ethyl Alcohol 59.0 Discharge Plan Triage Chief Complaint: Substance Abuse ED Provider: Shyann Orosco Dx/Rx/DC Orders Clinical Impression: Alcohol abuse with physiological dependence, Tobacco use Prescriptions: No Action albuterol sulfate 90 mcg/actuation HFA aerosol inhaler 2 puff inhalation Q6H PRN (Reason: SOB) buprenorphine-naloxone 8-2 mg film 1 ea sublingual BID Primary Care Provider: Earnest Rodriguez Referrals: Earnest Rodriguez MD [Primary Care Provider] - Print Language: French Disposition Disposition: Acute Care [facility]
[2024-07-13 17:42] LABS: ALB/GLOB Ratio 1.1 RATIO (0.9-2.4); AST(SGOT) 12 U/L (15-37); Alanine Aminotransfer ALT/SGPT 15 U/L (13-56); Albumin, Serum 3.8 g/dL (3.2-5.0); Alkaline Phosphatase 108 U/L (45-117); Anion Gap 5 (5-15); BUN 12 mg/dL (7-18); BUN/Creat Ratio 15.9 RATIO (10-20); Calcium,Total 9.5 mg/dL (8.5-10.1); Chloride 107 mmol/L (98-107); Creatinine, Serum 0.76 mg/dL (0.55-1.02); EST Glomerular Filtration Rate 83 mL/min (>60); Est Glom Filt Rate - Afr Amer 101 mL/min (>60); Estimated Creatinine Clearance 80.33 ml/min; Globulin 3.4 g/dL (2.2-4.2); Glucose 93 mg/dL (74-106); Potassium 3.9 mmol/L (3.5-5.1); Protein, Total 7.2 g/dL (6.4-8.2); Sodium Level 139 mmol/L (136-145)
[2024-07-13 17:49] LABS: Amphetamine Urine VISTA NEGATIVE (<1000 ng/mL); Barbiturate Urine VISTA NEGATIVE (< 200 ng/mL); Benzodiazepine Urine VISTA NEGATIVE (< 200 ng/mL); Cocaine Urine VISTA NEGATIVE (< 300 ng/mL); Ecstacy Urine VISTA NEGATIVE (< 500 ng/mL); Methadone Urine VISTA NEGATIVE (< 300 ng/mL); PCP Urine VISTA NEGATIVE (< 25 ng/mL); THC Urine VISTA POSITIVE (< 50 ng/mL); Vista UDS pH Range 6
--- NOTE | 2024-07-13 18:41 | HP.PCM.HOS_ITS ---
HPI - General General Date of Admission: 07/13/24 Date of Service: 07/13/24 Chief Complaint: Alcohol withdrawal symptoms. HPI Narrative KAMI WATTS, is a 59 F came to ED for help for alcohol detox. She has been drinking heavily 1-2 bottles of jenny, Korey Cuervito for last 3 weeks or more. She came to ED with tachycardia, nausea, anxiety, restlessness, insomnia and tachycardia. She was also shaking. She did not had vomiting. She was started on patient [facility] Patient on phenobarbital and further called for admission. She also has history of chronic opioid use, currently in remission under treatment of Dr. Johanne Manning. Currently on Suboxone. She had used IV needles, Percocet, [place] and heroin in the past. She had a history of hepatitis C, completed full treatment about 6 to 7 years ago, she does not remember well Patient also smokes 1 pack/day and previously using 2 pack/day since teenage 14 to 15 years of age. Labs, vitals reviewed [facility] Medical History Wears dentures Wears glasses Post-menopausal Bladder disease Hearing loss, left Hearing loss, right Osteoporosis Smoker Migraines Anxiety Depression Hepatitis Irregular heart beat Drug abuse Alcohol abuse Duodenitis Home Medications ?Medication ?Instructions ?Recorded ?Last Taken ?Type albuterol sulfate 90 mcg/actuation 2 puff inhalation Q6H PRN SOB 01/28/22 Unknown History aerosol inhaler buprenorphine 8 mg-naloxone 2 mg 1 ea sublingual BID 07/13/24 07/13/24 History sublingual film Allergy/AdvReac Type Severity Reaction Status Date / Time No Known Allergies Allergy Verified 07/13/24 16:50 Family History Mother Breast cancer Heart disease Hypertension Diabetes Father Cancer pt is unsure what kind of cancer Heart disease Hypertension Diabetes Sister Breast cancer Sister Ovarian cancer Surgical History S/P vaginal hysterectomy Hx of hand surgery History of cataract surgery History of tubal ligation History of umbilical hernia repair Social History adopted: No household members: none number of children: 6 current occupational status: unemployed pets and animals: Yes pets and animals: cat(s) sexually active: No Smoking Status: Heavy Smoker (>10/day) alcohol intake: former details: pt sober since 2020 caffeine: Yes seatbelt use: always do you feel safe at home: Yes ROS ROS Narrative Constitutional: Reports fatigue and weakness. No fever. HEENT: Reports systems reviewed and no addt'l complaints, except as documented Respiratory/Chest: No acute shortness of breath or respiratory distress or wheezing. CVS: Denies chronic heart disease. Gastrointestinal: History of hepatitis C, completed treatment. Denies coffee ground emesis, hematemesis or vomiting Genitourinary: Denies burning urination or new urinary tract symptoms Musculoskeletal: Denies acute joint pain or limited range of motion. No acute injury Neurologic: Denies history of seizure. No acute or strokelike symptoms skin: No ulcer. No rash Endocrinology: Reports systems reviewed and no addt'l complaints, except as documented Hematologic/Lymphatic: Reports systems reviewed and no addt'l complaints, except as documented Rest 14 ROS are negative except as mentioned in HPI Vital Signs Vital Signs Vital Signs: 07/13/24 16:50 07/13/24 16:57 07/13/24 17:49 Temperature 97.2 F L 97.8 F Temperature Source Temporal Temporal Pulse Rate 101 H 89 64 Respiratory Rate 18 20 H 16 Blood Pressure 123/82 H 116/80 108/52 L Blood Pressure Mean 95 92 70 Blood Pressure Source Monitor Blood Pressure Position Sitting Blood Pressure Location Right Arm Pulse Ox 96 94 96 Oxygen Delivery Method Room Air Room Air Room Air 07/13/24 18:00 07/13/24 18:40 Temperature 97.8 F Temperature Source Pulse Rate 86 64 Respiratory Rate 14 18 Blood Pressure 112/76 109/78 Blood Pressure Mean 88 88 Blood Pressure Source Blood Pressure Position Blood Pressure Location Pulse Ox 98 100 Oxygen Delivery Method Room Air Weight Weight: 178 lb 9.191 oz Body Mass Index (BMI) 31.6 Physical Exam Narrative General: Awake, hyperalert, oriented x3, Cooperative HEENT: Atraumatic, PERRLA, EOMI, Normocephalic Oral: Oral mucosa dry. No Gingival or Mucosal Lesions/ Ulcerations Neck: Supple, No JVD, Negative Carotid Bruits Chest wall/Lungs: Air entry diminished in bilateral lung bases. No crepitation/rhonchi Cardiovascular: Regular rate, Regular Rhythm, Normal S1, Normal S2, No M/G/R Abdomen: Bowel Sounds Present, Soft, Non Tender, Non-Distended : No dysuria. No renal angle tenderness. No suprapubic tenderness. Extremities: No edema, Capillary Refill Less than 3 Seconds Skin: No rashes, No breakdown Musculoskeletal: No Tenderness to Palpation of Joints or Extremities Neurological: Cranial nerves II-XII grossly intact, DTR 2+/4. No acute focal neurological deficit. Psych/Mental Status: Anxiety, history of depression. Results Lab / Micro Data 07/13/24 17:14 07/13/24 17:14 Labs: Laboratory Results - last 24 hr 07/13/24 17:07: Urine Opiates Screen NEGATIVE, Urine Methadone Screen NEGATIVE, Ur Barbiturates Screen NEGATIVE, Ur Phencyclidine Scrn NEGATIVE, Ur Amphetamines Screen NEGATIVE, MDMA (Ecstasy) Screen NEGATIVE, U Benzodiazepines Scrn NEGATIVE, Urine Cocaine Screen NEGATIVE, U Cannabinoids Screen POSITIVE H, Ur Drug Screen Comment 07/13/24 17:14: WBC 8.7, RBC 5.06, Hgb 15.8 H, Hct 45.8, MCV 90.5, MCH 31.2, MCHC 34.5, RDW Std Deviation 45.1 H, RDW Coeff of Mamta 13.5, Plt Count 358, MPV 9.3, Immature Gran % (Auto) 0.200, Neut % (Auto) 51.6, Lymph % (Auto) 37.0, [place] % (Auto) 6.5, Eos % (Auto) 3.8, Baso % (Auto) 0.9, Absolute Neuts (auto) 4.5, Absolute Lymphs (auto) 3.22, Nucleated RBC % 0, Sodium 139, Potassium 3.9, Chloride 107, Carbon Dioxide 27.0, Anion Gap 5, BUN 12, Creatinine 0.76, Estim Creat Clear Calc 80.33, Est GFR (MDRD) Af Amer 101, Est GFR (MDRD) Non-Af 83, BUN/Creatinine Ratio 15.9, Glucose 93, Calcium 9.5, Total Bilirubin 0.50, AST 12 L, ALT 15, Alkaline Phosphatase 108, Total Protein 7.2, Albumin 3.8, Globulin 3.4, Albumin/Globulin Ratio 1.1, Ethyl Alcohol 59.0 Assessment & Plan Assessment/Plan (1) Acute hyperactive alcohol withdrawal delirium: PLAN: Plan This is 59-year-old female is being admitted for acute alcohol withdrawal syndrome. 1. Acute alcohol withdrawal syndrome with history of chronic alcohol use, dependence and tolerance: Patient is being admitted on MedSurg floor. Patient is being admitted to MedSurg floor. Patient on phenobarbital based order set along with other adjunctive medications gabapentin, Bentyl, Vistaril, clonidine, Klonopin as needed for alcohol withdrawal symptom control. Patient is on thiamine and folate acid. CIWA monitor. manager brand 180 consulted. 2. History of chronic opioid use, in remission on Suboxone: Suboxone will be held during hospital stay as it is nonformulary. She can continue after discharge. She follows Dr. Manning, outpatient 180. 3. Chronic smoking: She has a smoking history since teenager pack per day. Advised follow-up in pulmonary clinic for PFT. Denies acute symptoms of cough, sputum production or fever or pneumonialike symptoms. 4. Other comorbidities include chronic anxiety and depression, history of cystocele with incomplete uterovaginal prolapse for which she had anterior and posterior repair in July [address] Tracy Chau 5. DVT prophylaxis, moderate risk: Lovenox 40 mg subcu daily Living will/advanced directive/end of life care: Patient does not have living will or advanced directive. She does not have negative power of real estate associate attorney for health after discussion of benefits/risks procedures involved with full code, DNR CC arrest and DNR CC, the patient opted for full code. Patient does want artificial life support including intubation, tube feed, ventilator and/chest compression, central venous catheter, vasopressor and DC shock if needed Total time spent in [id number] encounter in discussion of advanced directive 17 minutes. Charges/Coding Visit Charges Inpatient E&M: 48347 Init Hosp L3 Procedures Hospitalists Procedures: 63683 Advncd Care Plan 30 Min
[2024-07-13 18:46] LABS: International Normalized Ratio 1.1; Prothrombin Time (Protime)PT. 14.4 SECONDS (11.7-14.9)
[2024-07-13] MEDS: Enoxaparin 40 MG/0.4 ML Syringe SC (22:01)
[2024-07-13] MEDS: Phenobarbital 32.4 MG Tablet 64.8 MG PO (22:01)
[2024-07-13] MEDS: KCL 40mEq in 0.9% NS 40 MEQ/1,000 ML IV.SOLN 125 MEQ IV (22:01)
[2024-07-14] MEDS: Phenobarbital 32.4 MG Tablet 64.8 MG PO ×6 (01:24→20:29)
[2024-07-14 02:25] VITALS: BP 120/77; PULSE 65; RESP 16; TEMP 36.4; O2SAT 92
--- NOTE | 2024-07-14 07:22 | PCM.PN.HOSP ---
Reason for Visit Reason for Visit: Diagnoses Alcohol use, unspecified with withdrawal delirium (07/13/24) Subjective Subjective Patient is a 59-year-old lady with history of chronic alcohol dependence presenting with acute alcohol withdrawal Objective Data Objective Data Vital Signs: Vital Signs Temp Pulse Resp BP Pulse Ox O2 Del Method 97.5 F L 65 16 120/77 92 Room Air 07/14/24 02:25 07/14/24 02:25 07/14/24 02:25 07/14/24 02:25 07/14/24 02:25 07/14/24 02:25 Oxygen Delivery Method Room Air Weight: 82.361 kg Body Mass Index (BMI) 32.1 Intake & Output: Intake and Output for Last 24 Hours 07/12/24 07/13/24 07/14/24 23:59 23:59 23:59 Intake Total 1000 / 1000 Balance 1000 / 1000 Lab / Micro Data 07/13/24 17:14 07/13/24 17:14 Labs: Laboratory Results - last 24 hr 07/13/24 17:07: Urine Opiates Screen NEGATIVE, Urine Methadone Screen NEGATIVE, Ur Barbiturates Screen NEGATIVE, Ur Phencyclidine Scrn NEGATIVE, Ur Amphetamines Screen NEGATIVE, MDMA (Ecstasy) Screen NEGATIVE, U Benzodiazepines Scrn NEGATIVE, Urine Cocaine Screen NEGATIVE, U Cannabinoids Screen POSITIVE H, Ur Drug Screen Comment 07/13/24 17:14: WBC 8.7, RBC 5.06, Hgb 15.8 H, Hct 45.8, MCV 90.5, MCH 31.2, MCHC 34.5, RDW Std Deviation 45.1 H, RDW Coeff of Mamta 13.5, Plt Count 358, MPV 9.3, Immature Gran % (Auto) 0.200, Neut % (Auto) 51.6, Lymph % (Auto) 37.0, [place] % (Auto) 6.5, Eos % (Auto) 3.8, Baso % (Auto) 0.9, Absolute Neuts (auto) 4.5, Absolute Lymphs (auto) 3.22, Nucleated RBC % 0, Sodium 139, Potassium 3.9, Chloride 107, Carbon Dioxide 27.0, Anion Gap 5, BUN 12, Creatinine 0.76, Estim Creat Clear Calc 80.33, Est GFR (MDRD) Af Amer 101, Est GFR (MDRD) Non-Af 83, BUN/Creatinine Ratio 15.9, Glucose 93, Calcium 9.5, Total Bilirubin 0.50, AST 12 L, ALT 15, Alkaline Phosphatase 108, Total Protein 7.2, Albumin 3.8, Globulin 3.4, Albumin/Globulin Ratio 1.1, Ethyl Alcohol 59.0 07/13/24 18:14: PT 14.4, INR 1.1 Physical Exam Narrative GENERAL: Cooperative HEENT: Atraumatic; EYES; Anicteric, Normal Conjunctiva NECK; supple, normal thyroid, RESPIRATORY: Diminished to auscultation CARDIOVASCULAR: Regular S1 S2, GI: soft, normoactive bowel sounds, : No Renal angle tenderness; EXTREMITIES: No edema, no clubbing, MUSCULOSKELETAL: no muscle waisting NEURO: Awake; no lateralizing signs. SKIN: No Rash PSYCH; Flat affect Assessment & Plan Assessment/Plan (1) Acute hyperactive alcohol withdrawal delirium: PLAN: Plan Patient is a 59-year-old lady with history of chronic alcohol dependence presenting with acute alcohol withdrawal 1. Acute alcohol withdrawal - patient has been admitted to regular nursing floor currently being managed with phenobarb taper for medical stabilization 2. Previous history of opioid dependence Patient has remained in remission for over a year currently on Suboxone 3. COPD ? Currently not in exacerbation aerosol treatment as needed 4. Tobacco dependence - Counseled on cessation, offered nicotine patch for tobacco cravings 5. DVT prophylaxis ?Lovenox Time spent in the patient's overall evaluation,decision-making process, review of diagnostic data, adjustment of management, discussion with other providers, nursing nursing and ancillary staff involved in patient's care documentation, 38 Minutes Charges/Coding Visit Charges Inpatient E&M: 26206 Subs Hosp L2
[2024-07-14 08:48] VITALS: BP 113/77; PULSE 70; RESP 18; TEMP 36.4; O2SAT 94
[2024-07-14 08:56] VITALS: BP 113/77; PULSE 70; RESP 18; TEMP 36.4; O2SAT 94
[2024-07-14] MEDS: Folic Acid 1 MG Tablet PO (08:58)
[2024-07-14] MEDS: Thiamine Hydrochloride 100 MG Tablet PO (08:58)
--- NOTE | 2024-07-14 11:19 | ADDICTION ---
Met w/pt to complete RAMP assessments. Pt was a&Ox4. She answered all questions appropriately. Pt has been through intensive outpatient program a couple of times and believes that mental health IOP will be helpful to work on her MH issues.
[2024-07-14 12:42] VITALS: BP 110/64; PULSE 65; RESP 18; TEMP 36.6; O2SAT 95
[2024-07-14 16:19] VITALS: BP 118/80; PULSE 68; RESP 18; TEMP 36.8; O2SAT 97
[2024-07-14] MEDS: hydrOXYzine PAM 25 MG Capsule 50 MG PO (16:33)
[2024-07-14 20:22] VITALS: BP 119/69; PULSE 57; RESP 17; TEMP 36.8; O2SAT 94
[2024-07-14] MEDS: Enoxaparin 40 MG/0.4 ML Syringe SC (20:29)
[2024-07-14] MEDS: buprenorphine HCL 8 MG TAB.SUBL SL (20:29)
[2024-07-15] MEDS: Phenobarbital 32.4 MG Tablet 64.8 MG PO ×6 (00:46→20:19)
[2024-07-15 02:24] VITALS: BP 104/65; PULSE 60; RESP 17; TEMP 36.6; O2SAT 94
--- NOTE | 2024-07-15 07:30 | PCM.PN.HOSP ---
Reason for Visit Reason for Visit: Diagnoses Alcohol use, unspecified with withdrawal delirium (07/13/24) Subjective Subjective Patient seen symptoms continue to improve. Objective Data Objective Data Vital Signs: Vital Signs Temp Pulse Resp BP Pulse Ox O2 Del Method 97.8 F 60 17 104/65 94 Room Air 07/15/24 02:24 07/15/24 02:24 07/15/24 02:24 07/15/24 02:24 07/15/24 02:24 07/15/24 02:24 Oxygen Delivery Method Room Air Weight: 82.361 kg Body Mass Index (BMI) 32.1 Intake & Output: Intake and Output for Last 24 Hours 07/13/24 07/14/24 07/15/24 23:59 23:59 23:59 Intake Total 1000 / 1000 Balance 1000 / 1000 Lab / Micro Data 07/13/24 17:14 07/13/24 17:14 Physical Exam Narrative GENERAL: Cooperative HEENT: Atraumatic; EYES; Anicteric, Normal Conjunctiva NECK; supple, normal thyroid, RESPIRATORY: Diminished to auscultation CARDIOVASCULAR: Regular S1 S2, GI: soft, normoactive bowel sounds, : No Renal angle tenderness; EXTREMITIES: No edema, no clubbing, MUSCULOSKELETAL: no muscle waisting NEURO: Awake; no lateralizing signs. SKIN: No Rash PSYCH; Flat affect Assessment & Plan Assessment/Plan (1) Acute hyperactive alcohol withdrawal delirium: PLAN: Plan Patient is a 59-year-old lady with history of chronic alcohol dependence presenting with acute alcohol withdrawal 1. Acute alcohol withdrawal - patient has been admitted to regular nursing floor currently being managed with phenobarb taper for medical stabilization ? 07/15/2024; patient has tolerated the phenobarb taper well so far. Plan is for patient to follow-up with 180 following discharge. 2. Previous history of opioid dependence Patient has remained in remission for over a year currently on Suboxone 3. COPD ? Currently not in exacerbation aerosol treatment as needed 4. Tobacco dependence - Counseled on cessation, offered nicotine patch for tobacco cravings 5. DVT prophylaxis ?Lovenox Time spent in the patient's overall evaluation,decision-making process, review of diagnostic data, adjustment of management, discussion with other providers, nursing nursing and ancillary staff involved in patient's care documentation, 36 Minutes Charges/Coding Visit Charges Inpatient E&M: 00451 Subs Hosp L2
[2024-07-15 08:12] LABS: GGTP 14 IU/L (0-60)
[2024-07-15 08:44] VITALS: BP 120/77; PULSE 56; RESP 16; TEMP 36.8; O2SAT 95
[2024-07-15] MEDS: Thiamine Hydrochloride 100 MG Tablet PO (08:54)
[2024-07-15] MEDS: Folic Acid 1 MG Tablet PO (08:54)
[2024-07-15] MEDS: buprenorphine HCL 8 MG TAB.SUBL SL ×2 (10:40→18:29)
[2024-07-15 14:47] VITALS: BP 119/67; PULSE 64; RESP 14; TEMP 37; O2SAT 97
[2024-07-15] MEDS: hydrOXYzine PAM 25 MG Capsule 50 MG PO (18:29)
[2024-07-15 19:58] VITALS: BP 117/84; PULSE 57; RESP 18; TEMP 36.6; O2SAT 94
[2024-07-15] MEDS: Enoxaparin 40 MG/0.4 ML Syringe SC (20:12)
[2024-07-16 00:15] VITALS: BP 124/80; PULSE 63; RESP 18; TEMP 36.6; O2SAT 94
[2024-07-16] MEDS: Phenobarbital 32.4 MG Tablet 64.8 MG PO ×3 (00:17→09:26)
[2024-07-16 04:12] VITALS: BP 131/86; PULSE 70; RESP 18; TEMP 36.8; O2SAT 97
[2024-07-16] MEDS: buprenorphine HCL 8 MG TAB.SUBL SL (04:17)
--- NOTE | 2024-07-16 07:28 | PCM.PN.HOSP ---
Reason for Visit Reason for Visit: Diagnoses Alcohol use, unspecified with withdrawal delirium (07/13/24) Subjective Subjective Patient symptoms markedly improved. Patient requesting to be discharged. Objective Data Objective Data Vital Signs: Vital Signs Temp Pulse Resp BP Pulse Ox O2 Del Method 98.2 F 70 18 131/86 H 97 Room Air 07/16/24 04:12 07/16/24 04:12 07/16/24 04:12 07/16/24 04:12 07/16/24 04:12 07/16/24 04:12 Oxygen Delivery Method Room Air Weight: 82.361 kg Body Mass Index (BMI) 32.1 Intake & Output: Intake and Output for Last 24 Hours 07/14/24 07/15/24 07/16/24 23:59 23:59 23:59 Intake Total 1000 / 1000 Balance 1000 / 1000 Lab / Micro Data 07/13/24 17:14 07/13/24 17:14 Labs: Laboratory Results - last 24 hr 07/13/24 18:14: GGT 14 Physical Exam Narrative GENERAL: Cooperative HEENT: Atraumatic; EYES; Anicteric, Normal Conjunctiva NECK; supple, normal thyroid, RESPIRATORY: Diminished to auscultation CARDIOVASCULAR: Regular S1 S2, GI: soft, normoactive bowel sounds, : No Renal angle tenderness; EXTREMITIES: No edema, no clubbing, MUSCULOSKELETAL: no muscle waisting NEURO: Awake; no lateralizing signs. SKIN: No Rash PSYCH; Flat affect Assessment & Plan Assessment/Plan (1) Acute hyperactive alcohol withdrawal delirium: PLAN: Plan Patient is a 59-year-old lady with history of chronic alcohol dependence presenting with acute alcohol withdrawal 1. Acute alcohol withdrawal - patient has been admitted to regular nursing floor currently being managed with phenobarb taper for medical stabilization ? 07/15/2024; patient has tolerated the phenobarb taper well so far. Plan is for patient to follow-up with 180 following discharge. ? 07/16/2024; plan is for patient to be discharged and to follow-up with 180 as outpatient 2. Previous history of opioid dependence Patient has remained in remission for over a year currently on Suboxone 3. COPD ? Currently not in exacerbation aerosol treatment as needed 4. Tobacco dependence - Counseled on cessation, offered nicotine patch for tobacco cravings 5. DVT prophylaxis ?Lovenox Time spent in the patient's overall evaluation,decision-making process, review of diagnostic data, adjustment of management, discussion with other providers, nursing nursing and ancillary staff involved in patient's care documentation, 36 Minutes
[2024-07-16] MEDS: Folic Acid 1 MG Tablet PO (09:19)
[2024-07-16] MEDS: Thiamine Hydrochloride 100 MG Tablet PO (09:19)
--- NOTE | 2024-07-16 09:52 | PCM.DC.SUM ---
Providers Date of Admission: 07/13/24 Date of Discharge: 07/16/24 Primary Care Physician: Dr. Earnest Rodriguez MD Reason For Visit: ETOH Detox Diagnosis Discharge Diagnosis (1) Acute hyperactive alcohol withdrawal delirium: Status: Acute Code(s): F10.931 - Alcohol use, unspecified with withdrawal delirium Plan Patient is a 59-year-old lady with history of chronic alcohol dependence presenting with acute alcohol withdrawal 1. Acute alcohol withdrawal - patient has been admitted to regular nursing floor currently being managed with phenobarb taper for medical stabilization ? 07/15/2024; patient has tolerated the phenobarb taper well so far. Plan is for patient to follow-up with 180 following discharge. ? 07/16/2024; plan is for patient to be discharged and to follow-up with 180 as outpatient 2. Previous history of opioid dependence Patient has remained in remission for over a year currently on Suboxone 3. COPD ? Currently not in exacerbation aerosol treatment as needed 4. Tobacco dependence - Counseled on cessation, offered nicotine patch for tobacco cravings 5. DVT prophylaxis ?Lovenox Time spent in the patient's overall evaluation,decision-making process, review of diagnostic data, adjustment of management, discussion with other providers, nursing nursing and ancillary staff involved in patient's care documentation, 36 Minutes Medications at Discharge Home Medications albuterol sulfate 90 mcg/actuation aerosol inhaler 2 puff inhalation Q6H PRN SOB 01/28/22 buprenorphine 8 mg-naloxone 2 mg sublingual film 1 ea sublingual BID 07/13/24 Physical Exam Narrative GENERAL: Cooperative HEENT: Atraumatic; EYES; Anicteric, Normal Conjunctiva NECK; supple, normal thyroid, RESPIRATORY: Diminished to auscultation CARDIOVASCULAR: Regular S1 S2, GI: soft, normoactive bowel sounds, : No Renal angle tenderness; EXTREMITIES: No edema, no clubbing, MUSCULOSKELETAL: no muscle waisting NEURO: Awake; no lateralizing signs. SKIN: No Rash PSYCH; Flat affect Weight / BMI Weight Weight: 82.361 kg Body Mass Index (BMI) 32.1 ABG / Lab / Microbiology Data 07/13/24 17:14 07/13/24 17:14 D/C Instructions Discharge Diet: No restrictions Discharge Activity: Return to Normal Activity Call your doctor if you observe: Fever of 101 or Higher, Shortness of breath, Fainting spells and Chest pain Meaningful Use Info Meaningful Use Meaningful Use Diagnoses (Choose all that apply): None applicable Ischemic Stroke Statin Dosing Therapy Reference: STATIN DOSE THERAPY REFERENCE: * Patients > 75 years receive moderate or high dose statin therapy. * Patients 75 years or YOUNGER should receive HIGH intensity statin dose unless contraindicated. You will be required to document reason for non-treatment if statin daily dose does not meet guidelines. HIGH DOSE STATIN THERAPY DAILY Atorvastatin > than or = to 40 mg Rosuvastatin > than or = to 20 mg Amlodipine + Atorvastatin > than or = to 2.5/40 mg Ezetimibe + Simvastatin 10/80 mg Simvastatin 80mg Discharge Plan Admission Admit Date/Time: 07/13/24 18:03 Attending Provider: Jeffry Rebolledo Primary Care Provider: Earenst Rodriguez Consulting Providers: Lokesh [place] Discharge Orders/Prescriptions Prescriptions: Continued albuterol sulfate 90 mcg/actuation HFA aerosol inhaler 2 puff inhalation Q6H PRN (Reason: SOB) buprenorphine-naloxone 8-2 mg film 1 ea sublingual BID Referrals / Follow Up: Earnest Rodriguez MD [Primary Care Provider] - Within 1 Week Disposition Disposition (needs filled in before D/C Order can be placed): Home, Self Care Charges/Coding Visit Charges Inpatient E&M: 18868 Disch Hosp >30min
[2024-07-16 10:00] VITALS: BP 108/67; PULSE 68; RESP 16; TEMP 37.1; O2SAT 96
== END 2024-07-16 12:03 | disposition home or self-care (01) | DRG 897 ==
LOC: ED 18:22 → MS3 19:19
PROVIDERS: Admitting Provider Internal Medicine; Emergency Provider Emergency Medicine; PCP Family Medicine; Referring Provider Internal Medicine; Visit Provider Internal Medicine
DX: F10.231 Alcohol dependence with withdrawal delirium (principal); J44.9 Chronic obstructive pulmonary disease, unspecified; F32.A Depression, unspecified; F11.21 Opioid dependence, in remission; F12.90 Cannabis use, unspecified, uncomplicated; F41.9 Anxiety disorder, unspecified; Z51.5 Encounter for palliative care; Z66 Do not resuscitate; Z87.891 Personal history of nicotine dependence; Y90.2 Blood alcohol level of 40-59 mg/100 ml
CPT/HCPCS: 80053; 80307; 82077; 82977; 85025; 85610; 99285; A4216

== ENCOUNTER 2024-08-05 12:30 | Emergency (ER) | payer MEDICARE, MEDICAID, SELFPAY ==
[2024-08-05 12:30] VITALS: BP 181/111; PULSE 56; RESP 16; TEMP 36.6; O2SAT 99
[2024-08-05 15:13] VITALS: BP 151/87; PULSE 92; RESP 16; O2SAT 99
--- NOTE | 2024-08-05 15:15 | EDS_ITS ---
HPI HPI - GI History of Present Illness Chief Complaint: Flank Pain Informant: patient Narrative Narrative: 59-year-old me female states she has been having urinary symptoms for a couple days, frequency, urgency, no dysuria or fever/chills. She started having pain in the left flank gradually today, now it is severe and colicky associated with nausea and vomiting. No fevers or chills that she knows of yet. States that yesterday she saw urgent care and was prescribed Macrobid that she started. PFSH PFSH Medical History Wears dentures Wears glasses Post-menopausal Bladder disease Hearing loss, left Hearing loss, right Osteoporosis Smoker Migraines Anxiety Depression Hepatitis Irregular heart beat Drug abuse Alcohol abuse Duodenitis Home Medications ?Medication ?Instructions ?Recorded ?Last Taken ?Type albuterol sulfate 90 mcg/actuation 2 puff inhalation Q6H PRN SOB 01/28/22 Unknown History aerosol inhaler buprenorphine 8 mg-naloxone 2 mg 1 ea sublingual BID 07/13/24 07/13/24 History sublingual film cholecalciferol (vitamin D3) 1,250 1,250 mcg PO QWEEK 08/05/24 Unknown History mcg (50,000 unit) capsule ciprofloxacin HCl 500 mg tablet 500 mg PO BID #14 TABLETS 08/05/24 Unknown Rx oxycodone-acetaminophen 5 mg-325 1 tab PO Q4H PRN Pain 4 days #20 08/05/24 Unknown Rx mg tablet TABLETS Allergy/AdvReac Type Severity Reaction Status Date / Time No Known Allergies Allergy Verified 08/05/24 12:32 Family History Mother Breast cancer Heart disease Hypertension Diabetes Father Cancer pt is unsure what kind of cancer Heart disease Hypertension Diabetes Sister Breast cancer Sister Ovarian cancer Surgical History S/P vaginal hysterectomy Hx of hand surgery History of cataract surgery History of tubal ligation History of umbilical hernia repair Social History adopted: No household members: none number of children: 6 current occupational status: unemployed pets and animals: Yes pets and animals: cat(s) sexually active: No Smoking Status: Heavy Smoker (>10/day) alcohol intake: former details: pt sober since 2020 caffeine: Yes seatbelt use: always do you feel safe at home: Yes ROS ROS ED Constitutional Constitutional ED: Denies chills or fever(s) Eyes Eyes: Denies change in vision or diplopia ENT ENT ED: Denies rhinorrhea or sore throat Cardiovascular Cardiovascular: Denies chest pain or palpitations Respiratory/Chest Respiratory/Chest: Denies cough or dyspnea Gastrointestinal Gastrointestinal: Reports abdominal pain, nausea and vomiting; Denies diarrhea Genitourinary Genitourinary ED: Reports flank pain, urinary frequency and urinary urgency; Denies dysuria or hematuria Musculoskeletal Musculoskeletal: Reports back pain; Denies neck pain Integumentary Denies abscess or rash Neurologic Neurologic: Denies headache(s), paresthesias or weakness Psychiatric Psychiatric: Denies anxiety or suicidal thoughts EXAM Physical Exam Const Vital Signs: 08/05/24 12:30 08/05/24 15:13 08/05/24 16:00 Temperature 97.8 F Temperature Source Temporal Pulse Rate 56 L 92 78 Respiratory Rate 16 16 18 Blood Pressure 181/111 H 151/87 H 120/66 Blood Pressure Mean 134 108 84 Pulse Ox 99 99 100 Oxygen Delivery Method Room Air Room Air Room Air 08/05/24 16:58 Temperature Temperature Source Pulse Rate 66 Respiratory Rate 16 Blood Pressure 111/64 Blood Pressure Mean 79 Pulse Ox 95 Oxygen Delivery Method Room Air Positive well nourished and well developed Constitutional Narrative: Uncomfortable, in pain but no distress otherwise General Appearance ED: well developed HEENT Reports moist mucous membranes normocephalic and atraumatic Eyes PERRL and EOMs intact bilaterally Neck full ROM and supple Resp normal respiratory effort and clear to auscultation bilaterally Cardio regular rate, regular rhythm and no murmurs GI non-distended GI Narrative: Mildly tender without guarding or rebound throughout the left side of abdomen and flank. Normal inspection. No Khoury Davila sign. Auscultation: normoactive bowel sounds Palpation: soft Back/Spine General Back: CVA tenderness left (Mild) and other FROM Extremity normal to inspection General Extremety ED: Negative for edema, pulses abnormal or tenderness General Extremity: Negative for edema or pulses abnormal Neuro oriented x3, CN's II-XII intact bilaterally and no sensory deficits noted Sensorium / Orientation: awake and alert Motor Exam: strength 5/5 throughout Psych Mood & Affect: anxious Skin no rashes or lesions noted and no wounds MDM MDM MDM Narrative Medical decision making narrative: Patient very uncomfortable as she has a kidney stone. She was treated with analgesics, she is feeling much better on reevaluation, I ran labs, urinalysis, and a CT of the abdomen/pelvis. I reviewed images and report which I agree with , she has a left 4 mm UVJ stone with hydronephrosis explaining her pain. The urine shows signs of infection but there is no pyuria however she has already had 3 doses of Macrobid. I suspect she does have an infection since she had urinary symptoms prior to this, however she states that urgent care they only saw blood but they did send a culture. Therefore not sending another 1, I am going to change her to [place], prescriber analgesics, I think expectant management is reasonable here. Her vital signs are normal she is not septic and she has well-controlled symptoms. Referred to urology if she goes a week or 2 without passing the stone, and if she has uncontrolled symptoms or becomes febrile, she is advised to return to the ER immediately. She is comfortable with that plan. Lab Data Attestation: I reviewed the patient's lab results. Labs: Laboratory Results - last 24 hr 08/05/24 08/05/24 15:16 16:29 WBC 12.3 H RBC 4.97 Hgb 15.3 H Hct 46.5 MCV 93.6 MCH 30.8 MCHC 32.9 RDW Std Deviation 43.8 RDW Coeff of Mamta 12.8 Plt Count 318 MPV 10.2 Immature Gran % (Auto) 0.500 Neut % (Auto) 84.4 H Lymph % (Auto) 10.7 L [place] % (Auto) 3.3 Eos % (Auto) 0.5 Baso % (Auto) 0.6 Absolute Neuts (auto) 10.4 H Absolute Lymphs (auto) 1.31 Nucleated RBC % 0 Sodium 140 Potassium 4.0 Chloride 109 H Carbon Dioxide 24.0 Anion Gap 7 BUN 14 Creatinine 0.64 Est GFR (MDRD) Af Amer 122 Est GFR (MDRD) Non-Af 101 BUN/Creatinine Ratio 21.8 H Glucose 119 H Calcium 9.8 Urine Color Yellow Urine Clarity Clear Urine pH 6.0 Ur Specific [place] 1.030 Urine Protein 15 H Urine Glucose (UA) Normal Urine Ketones 150 A* Urine Occult Blood 250 H Urine Nitrite Positive H Urine Bilirubin 1 H Urine Urobilinogen 1 H Ur Leukocyte Esterase 500 H Urine RBC 10-25 SEEN Urine WBC 0-5 SEEN Ur Squamous Epith Cells 0-5 SEEN Calcium Oxalate Crystal 1+ Urine Bacteria 2+ Urine Mucus 2+ Radiography Diagnostic Testing: Clinical Impression(s) from Imaging Studies Abdomen/Pelvis CT 08/05/24 15:30 IMPRESSION: Obstructive stone at the left ureterovesical junction. Electronically Signed: Daniel Rajan MD at 16:03 EDT , Discharge Plan Triage Chief Complaint: Flank Pain ED Provider: Calvin Lopez Dx/Rx/DC Orders Clinical Impression: Ureterolithiasis, Renal colic on left side, Complicated urinary tract infection Instructions: ED Urine Strainer, ED Kidney Stone with Pain Prescriptions: New oxycodone-acetaminophen 5-325 mg tablet 1 tab PO Q4H PRN (Reason: Pain) 4 Days Qty: 20 0RF ciprofloxacin HCl 500 mg tablet 500 mg PO BID Qty: 14 0RF Continued albuterol sulfate 90 mcg/actuation HFA aerosol inhaler 2 puff inhalation Q6H PRN (Reason: SOB) cholecalciferol (vitamin D3) 1,250 mcg (50,000 unit) capsule 1,250 mcg PO QWEEK Held buprenorphine-naloxone 8-2 mg film 1 ea sublingual BID Hold Instructions: while taking oxycodone Discontinued nitrofurantoin monohyd/m-cryst 100 mg capsule 1 cap PO BID Primary Care Provider: Earnest Rodriguez Referrals: Cydney Molina MD [Med Staff - Active Staff] - 1 Week if not improving Earnest Rodriguez MD [Primary Care Provider] - Print Language: [place] Disposition Disposition: Home, Self Care
[2024-08-05] MEDS: Ondansetron 4 MG/2 ML Vial IV (15:20)
[2024-08-05] MEDS: Morphine 4 MG/ML Syringe IV (15:21)
[2024-08-05] MEDS: Ketorolac 30 MG/ML Syringe 15 MG IV (15:21)
--- NOTE | 2024-08-05 15:30 | CT_ITS ---
EXAM: CT ABDOMEN AND PELVIS WITHOUT INTRAVENOUS CONTRAST CLINICAL INDICATION: L flank pain TECHNIQUE: Helically acquired images were obtained of the abdomen and pelvis without intravenous contrast. This CT exam was performed using one or more of the following dose reduction techniques: automated exposure control, adjustment of the mA and/or kV according to patient size, and/or use of iterative reconstruction technique. COMPARISON: CT Abdomen Pelvis dated 01/14/2016 FINDINGS: LOWER THORAX: Normal. Lung bases are clear. No cardiomegaly. No pericardial effusion. ABDOMEN: LIVER: Normal. Homogeneous. GALLBLADDER AND BILE DUCTS: Normal. No calcified gallstones. No gallbladder distention or wall edema. No intra- or extrahepatic biliary ductal dilation. PANCREAS: Normal. No focal cystic mass. SPLEEN: Normal. Normal size without focal cystic or solid mass. ADRENALS: Normal. No nodules. KIDNEYS AND URETERS: 4 mm left ureteral stone noted at the ureterovesical junction associated with left hydronephrosis and hydroureter. No intrarenal stone. STOMACH AND BOWEL: Normal. No bowel distention. No focal inflammatory change. PELVIS: APPENDIX: Appendix is visualized and normal in appearance. BLADDER: Normal. REPRODUCTIVE: Hysterectomy noted. ABDOMEN and PELVIS: INTRAPERITONEAL SPACE: Normal. No ascites or other fluid collection. No free air. BONES/JOINTS: No suspicious lytic or blastic abnormality. SOFT TISSUES: Normal. No discrete abdominal or pelvic wall hernia. VASCULATURE: Normal. Abdominal aorta is non-dilated. LYMPH NODES: Normal. No enlarged lymph nodes. CT/Abdomen/Pelvis without Cont IMPRESSION: Obstructive stone at the left ureterovesical junction. Electronically Signed: Daniel Rajan MD at 16:03 EDT ,
[2024-08-05 15:36] LABS: Absolute Lymphocyte Count 1.31 X10^3/uL (0.83-4.51); Absolute Neutrophil Count 10.4 X10^3/uL (2.0-7.7); Basophil# 0.07 X10^3/uL; Basophil% 0.6 % (0-1); Eosinophil# 0.06 X10^3/uL; Eosinophils% 0.5 % (0-5); Hematocrit 46.5 % (37-47); Hemoglobin 15.3 g/dL (12.0-15.0); Lymphocyte # 1.31 X10^3/ul (0.83-4.51); Lymphocyte % 10.7 % (19-41); Mean Corp Hgb Conc 32.9 g/dL (32-36); Mean Corpuscular Hgb 30.8 pg (27.0-32.0); Mean Corpuscular Volume 93.6 fL (81-99); Mean Platelet Vol. 10.2 fl (6.2-12.0); Monocyte# 0.41 X10^3/uL; Monocyte% 3.3 % (0-10); NRBC Flagged by Analyzer 0 % (0-5); Neutrophil # 10.37 X10^3/uL (2.7-7.7); Neutrophil % 84.4 % (47-70); Platelet Count 318 K/mm3 (150-450); RBC Distribution Width CV 12.8 % (11.6-14.6); RBC Distribution Width SD 43.8 fl (35.1-43.9); Red Blood Count 4.97 M/mm3 (4.2-5.4); White Blood Count 12.3 K/mm3 (4.4-11.0)
[2024-08-05 15:43] LABS: Anion Gap 7 (5-15); BUN 14 mg/dL (7-18); BUN/Creat Ratio 21.8 RATIO (10-20); Calcium,Total 9.8 mg/dL (8.5-10.1); Chloride 109 mmol/L (98-107); Creatinine, Serum 0.64 mg/dL (0.55-1.02); EST Glomerular Filtration Rate 101 mL/min (>60); Est Glom Filt Rate - Afr Amer 122 mL/min (>60); Glucose 119 mg/dL (74-106); Sodium Level 140 mmol/L (136-145)
[2024-08-05 16:00] VITALS: BP 120/66; PULSE 78; RESP 18; O2SAT 100
[2024-08-05 16:46] LABS: Color, Urine Yellow (Yellow); Glucose, Dipstick Normal (Normal); Leukocyte Esterase-Dipstick 500 /ul (Negative); Nitrite-Dipstick Positive (Negative); Occult Blood-Urine 250 /ul (Negative); Protein-Dipstick 15 mg/dl (Negative); Urine Clarity Clear (Clear); Urine Urobilinogen 1 mg/dl (Normal)
[2024-08-05 16:49] LABS: Urine Bilirubin Dipstick 1 mg/dL (Negative)
[2024-08-05 16:50] LABS: Ketone-Dipstick 150 mg/dl (Negative)
[2024-08-05 16:51] LABS: Mucous, Urine 2+ /hpf (<or=2+); Squamous Epithelial Cells - UA 0-5 SEEN /hpf (5-10)
[2024-08-05 16:52] LABS: Bacteria 2+ /hpf (None Seen); Calcium Oxalate Crystals Ur 1+ /hpf (<or=2+); Red Blood Cells-Urine 10-25 SEEN /hpf (0-5); White Blood Cells 0-5 SEEN /hpf (0-5)
[2024-08-05 16:58] VITALS: BP 111/64; PULSE 66; RESP 16; O2SAT 95
[2024-08-05 17:57] VITALS: BP 117/78; PULSE 62; RESP 18; TEMP 36.9; O2SAT 97
[2024-08-05] MEDS: Ciprofloxacin 500 MG Tablet PO (17:59)
[2024-08-05 18:00] VITALS: BP 117/78; PULSE 62; RESP 18; O2SAT 97
== END 2024-08-05 18:05 | disposition home or self-care (01) ==
PROVIDERS: Emergency Provider Emergency Medicine; PCP Family Medicine; Visit Provider Emergency Medicine
DX: N13.2 Hydronephrosis with renal and ureteral calculous obstruction (principal); N39.0 Urinary tract infection, site not specified; F17.200 Nicotine dependence, unspecified, uncomplicated; N23 Unspecified renal colic; Z90.710 Acquired absence of both cervix and uterus; Z98.51 Tubal ligation status
CPT/HCPCS: 74176; 80048; 81001; 85025; 96374; 96375; 99283; J7030; A4216; J2405

== ENCOUNTER 2024-08-15 08:00 | Outpatient (RCR) | payer MEDICARE, MEDICAID, SELFPAY ==
--- NOTE | 2024-08-15 10:15 | BH.SGPN.GN ---
Behaviors/Verbalizations/Mental Status: []Client alert and oriented, casually dressed and groomed. Eye contact good. Motor activity appropriate. Speech within normal limits. Affect congruent, mood anxious and content. Thoughts linear, logical, no signs of hallucinations or delusions. Client Response/Progress/Benefit: []Pt was an attentive an active participant, AEB taking notes and providing input in group discussion when prompted. Attentive during psychoeducation. Pt engaged during interactive discussion in which the group defined self-care and discussed its benefits. Group discussed barriers to engaging in self-care. Group members together came up with guilt, time, ?people pleasing?, not knowing what to do, and perception that its unproductive as barriers to engage in self-care. Pt stated their personal barrier is feeling like pt must ?earn it? and feeling guilty when pt does practice self-care. Pt participated in small groups where they worked to identified and challenged common self-care ?myths?. Benefited from increased awareness of self-care, its benefits, and the consequences of not utilizing self-care strategies. Will continue IOP tx to prevent rehospitalization, improve daily functioning, and increase distress tolerance skills. Narrative Note: []
--- NOTE | 2024-08-15 11:18 | BH.SGPN.GN ---
Behaviors/Verbalizations/Mental Status: [] Client alert and oriented, casually dressed and groomed. Eye contact good. Motor activity appropriate. Speech within normal limits. Affect congruent, mood anxious and depressed. Thoughts linear, logical, no signs of hallucinations or delusions. Client Response/Progress/Benefit: []Client engaged in discussion reviewing different areas of self-care and completing self-assessment of current self care, as well as providing input throughout discussion. Did well to complete self-care self-assessment worksheet. Client identified current self-care practices and what self-care activities client wants to start using. Client selected emotional self-care to begin practicing more consistently. Client plans to do this by challenging herself to look into different options for beginning to develop a new hobby. Appeared to benefit from completing the self-care evaluation and gaining insights into current self-care practices, as well as identifying areas in which client would like to improve upon. Client will continue IOP tx to prevent decompensation, improve mood stability, and increase healthy coping repertoire. Narrative Note: []
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
--- NOTE | 2024-08-15 15:22 | BH.MTP ---
Master Treatment Plan Patient Information Program Physician:: Dr. Pitts Primary Therapist:: Brittnee Garcia, [facility] Psychiatric Diagnoses Psychiatric Diagnoses:: 1. Major depressive disorder, recurrent, severe without psychosis 2. PTSD 3. Generalized anxiety disorder 4. Marijuana and alcohol use disorder (sober x 1 month) 5. History of meth amphetamine, cocaine and opiate use disorder (sober for over 10 years) Diagnosis Code(s):: F33.2 Estimated LOS Estimated LOS (in weeks):: 6 Problem/Goal #1 Problem/Goal #1 Stated Goal:: Client will reduce depression, feelings of hopelessness, and low motivation due to Major Depressive Disorder through Intensive Outpatient Program. Description of Barriers: Potential barriers include recent alcohol relapse prior to starting IOP, limited social support, emotion dysregulation, and distorted thoughts. Functional Impact: The patient is a 59-year-old, single, female with a history of depression, anxiety, PTSD, polysubstance abuse (sober x 10 years) and alcohol use disorder (sober x 1 month) who was referred to the [facility] IOP by her counselor due to worsening depression and trauma memories impacting function for the past few years. The patient states that she never dealt with her abuse and now she has trouble being motivated to leave the house, shower and function. She gained 40 pounds this past year because she is unable to leave the house or cook for herself. Her mood has been low and has been getting worse each year. She naps during the day for 3 to 4 hours at a time and only sleeps about 4 hours at night. She has racing thoughts of past traumas and never has a calm mind. She denies suicidal ideation, plan for suicide, homicidal ideation, hallucinations, delusions or symptoms of j luis. She has had suicidal ideation in the past and has had multiple attempts by choking and pills especially when she was using meth years ago. Objectives Objective #1: Stated Objective: Client will learn and utilize 2-3 healthy coping strategies to manage depressive symptoms. Interventions: Therapist will utilize CBT techniques to assist client with understanding the connection between thoughts, feelings and behaviors. Education will be provided on behavioral activation. Therapist will assist client in learning internal coping strategies to manage depressive symptoms, along with helping client identify triggers. Discharge Criteria: Client will have achieved this goal when can verbalize and has practiced at least 2 healthy coping strategies that successfully manage depressive symptoms. Target Date: 09/26/24 Review Date: 09/12/24 Objective #2: Stated Objective: Client will identify and replace 2-3 negative thinking patterns that reinforce feelings of hopelessness and helplessness. Interventions: Through group and individual therapy sessions client will learn how to identify, challenge, and replace dysfunctional thoughts with positive self-enhancing thoughts. Discharge Criteria: Client will have achieved this goal when can identify at least 2 negative thinking patterns, and replace thoughts with rational thoughts. Problem/Goal #2 Problem/Goal #2 Stated Goal:: Stabilize anxiety level while increasing ability to function on daily basis. Description of Barriers: Potential barriers include recent alcohol relapse prior to starting IOP, limited social support, emotion dysregulation, and distorted thoughts. Functional Impact: The patient is a 59-year-old, single, female with a history of depression, anxiety, PTSD, polysubstance abuse (sober x 10 years) and alcohol use disorder (sober x 1 month) who was referred to the [facility] by her counselor due to worsening depression and trauma memories impacting function for the past few years. The patient states that she never dealt with her abuse and now she has trouble being motivated to leave the house, shower and function. She gained 40 pounds this past year because she is unable to leave the house or cook for herself. Her mood has been low and has been getting worse each year. She naps during the day for 3 to 4 hours at a time and only sleeps about 4 hours at night. She has racing thoughts of past traumas and never has a calm mind. She denies suicidal ideation, plan for suicide, homicidal ideation, hallucinations, delusions or symptoms of j luis. She has had suicidal ideation in the past and has had multiple attempts by choking and pills especially when she was using meth years ago. Objectives Objective #1: Stated Objective: Client will learn and utilize 2-3 healthy coping strategies to manage depressive symptoms. Interventions: Therapist will utilize CBT techniques to assist client with understanding the connection between thoughts, feelings and behaviors. Education will be provided on behavioral activation. Therapist will assist client in learning internal coping strategies to manage depressive symptoms, along with helping client identify triggers. Discharge Criteria: Client will have achieved this goal when can verbalize and has practiced at least 2 healthy coping strategies that successfully manage depressive symptoms. Target Date: 09/26/24 Review Date: 09/12/24 Objective #2: Stated Objective: Client will identify 2-3 anxiety triggers and 2 coping skills to use when feeling anxious. Interventions: Therapist will assist client in exploring what triggers anxiety and teach client coping strategies to effectively manage anxiety symptoms. Discharge Criteria: Client will have met this goal when can identify at least 2 triggers to anxiety and verbalize two healthy ways to cope with feelings of anxiety. Target Date: 09/26/24 Review Date: 09/12/24
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
[2024-08-17 08:47] VITALS: BP 113/68; PULSE 90
--- NOTE | 2024-08-17 09:00 | BH.SGPN.GN ---
Behaviors/Verbalizations/Mental Status: [] Pt alert and oriented, casually dressed and groomed. Eye contact good. Motor activity appropriate. Speech within normal limits. Affect congruent, mood anxious. Thoughts linear, logical, no signs of hallucinations or delusions. Reviewed pt?s symptom tracker, no risk for suicidal ideation, plan, or intent 08/17/24 Client Response/Progress/Benefit: []Pt responded well to session, attentive and engaged. Pt reports feeling overwhelmed this morning and shared that her entire life is a stressor. Pt stated she feels like everyday is ground hog's day and all pt does is work and isolate. Pt also has lost connection with her child recently, so she is less active and has less support. Pt received support from peers and encouragement about staying consistent with IOP. Pt stated committing to IOP is one of her mental health wins today because pt needs to break out of my comfort zone. Pt also reported getting on a new medication also is a mental health win today. Pt appeared to benefit from reflecting on positives and connecting with peers. Pt will continue IOP tx to prevent decompensation, improve daily functioning, and gain healthy coping skills. Narrative Note: []
--- NOTE | 2024-08-17 10:10 | BH.SGPN.GN ---
Behaviors/Verbalizations/Mental Status: [] Eye contact is good. Motor activity is appropriate. Appearance is casual. Speech is Appropriate. Mood is euthymic. Affect is congruent. Thoughts are linear and logical. No evidence of psychosis. Client Response/Progress/Benefit: [] Pt an active participant in group discussions. Participated during interactive discussion on defining conflict (internal/external) and possible benefits to conflict. Attentive during psychoeducation on conflict styles (Avoidant, Accommodating, Competing, Cooperative) and engaged during interactive discussion in which peers identified the benefits and consequences to each conflict style. Pt identified their primary conflict style as avoidant because doesn't want to make others upset. Benefited from increased awareness of the impact of conflict styles in mental health. Will continue in IOP tx to improve follow through on goals, decrease anxious avoidance, and prevent decompensation.
--- NOTE | 2024-08-17 11:15 | BH.SGPN.GN ---
Behaviors/Verbalizations/Mental Status: []Eye contact is good. Motor activity is appropriate. Appearance is casual. Speech is Appropriate. Mood is depressed and anxious. Affect is congruent. Thoughts are linear and logical. No evidence of psychosis. Client Response/Progress/Benefit: [] Pt was an active participant in group discussions and activity. Engaged with peers in activity and identifying healthy ways to approach each conflict scenario. Group discussed various conflict resolution skills that can be useful in addressing conflict outside of IOP. Benefited from practicing and learning conflict resolution skills during group activity. Able to identify areas pt wants to work on to improve how pt manages conflict both internally and externally. Expressed wanting to work on their internal conflict by establishing healthier self-care practices. Will continue in IOP to stabilize mood, improve distress tolerance skills, and prevent decompensation. Narrative Note: []
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
--- NOTE | 2024-08-17 13:12 | BH.DR.ITP ---
Initial Treatment Plan Patient Information Visit Information: ADMISSION DATE: EXPECTED LOS: 4-6 weeks Problems/Symptoms Problem #1:: Depression Symptom:: Sadness, anhedonia, low motivation, worthlessness, hopelessness, biological disruption of appetite and sleep, decreased concentration, guilt, passive thoughts of . Problem #2:: Anxiety Symptom:: Worry, rumination, racing thoughts, avoidance, reexperiencing.
--- NOTE | 2024-08-18 09:05 | BH.SGPN.GN ---
Behaviors/Verbalizations/Mental Status: [] Eye contact good. Motor activity appropriate. Speech within normal limits. Affect congruent, mood content. Thoughts linear, logical, no signs of hallucinations or delusions. Reviewed client?s symptom tracker, pt denies SI,?plan, or intent as of 08/18/2024. Client Response/Progress/Benefit: [] Client receptive of session, attentive and willing to process with group. Reports improving sx of depression?(2/5) and agitation (1/5) per daily sx tracker. ?Identified mental health ?jacob as doing well to balance work and coming to IOP tx thus far. Did recognize that she may need to make some adjustments as she is finding herself feeling more tired the rest of the day. Reports struggling with self-care and is hoping to improve in her ability to consistently engage in self-care habits through the IOP program. Additional jacob noted as receiving a compliment at work for doing her job well. Pt shared this helped her confidence as she puts a lot of effort into her work. Stressor noted as ongoing car issues. Receptive of and appearing to benefit from group support. Recommended continued IOP tx to maintain mood stability, promote consistent skill application, well as prevent decompensation. Narrative Note: []
--- NOTE | 2024-08-18 10:10 | BH.SGPN.GN ---
Behaviors/Verbalizations/Mental Status: [] Eye contact is good. Motor activity is appropriate. Appearance is casual. Speech is Appropriate. Mood is tired and content. Affect is congruent. Thoughts are linear and logical. No evidence of psychosis. Client Response/Progress/Benefit: [] Pt receptive to session AEB listening attentively to others and taking notes. Pt attentive and contributing throughout psychoeducation on the cognitive triangle and maintenance cycles. Pt engaged during group discussion reviewing the impact of daily activities and behaviors in either reinforcing unhealthy maintenance cycles and depression or assisting in reducing symptoms (?down? vs ?up? activities). Pt identified personal ?down? activities they engage in as: isolating, napping, shutting down, and ?just going to work and going to bed.? Attentive during discussion on Common ?Up? activities Pt identified theirs to include: exercising, being social, and taking care of her basic needs. Appeared to benefit from increased awareness of current behaviors and impact these have on mental health. Will continue IOP to prevent decompensation, improve daily functioning, and gain healthy coping skills. Narrative Note: []
--- NOTE | 2024-08-18 11:10 | BH.SGPN.GN ---
Behaviors/Verbalizations/Mental Status: [] Eye contact is good. Motor activity is appropriate. Appearance is casual. Speech is Appropriate. Mood is anxious. Affect is congruent. Thoughts are linear and logical. No evidence of psychosis Client Response/Progress/Benefit: [] Pt responded well to session, attentive and engaged in group discussions and activity. Active participant as group discussed values and the benefits that knowing one's values can have on one's mental health. Pt explored own values and identified personal top values. Pt stated personally important values are family and physical activity. ?Pt set a goal to have conversation with son regarding her relationship with granddaughter. Benefited from increased awareness of their personal values and how incorporating their values into behavioral activation goals can positive impact mental health. Will continue in IOP to prevent decompensation, stablize mood, increase healthy coping, and improve functioning. Narrative Note: []
--- NOTE | 2024-08-18 13:42 | BH.MDN_ITS ---
Multi-Disciplinary Note Note 30-min Individual: Time Started:: 12:05 Date: 08/18/24 Purpose of session/treatment goals addressed:: Purpose of session was to address goals 1 and 2 from [facility]. Eye Contact:: Good Motor Activity:: Appropriate Appearance:: Casual Speech:: Appropriate Mood:: Euthymic Affect:: Congruent Thoughts:: Linear, Logical and No evidence of hallucinations/delusions noted Staff Interventions:: thought challenging, psychoeducation on: (behavior activation/cognitive triangle), CBT techniques, rapport building, strengths perspective, goal setting and taught coping skills Client Response:: Client shared her first week in [facility] went really well. Client stated her mood felt improved today. Client reported she has been learning a lot in groups and is hopeful that if she puts into action the things that she is learning that her mental health can improve. Client shared the biggest thing she wants to focus on is getting back to living. Client stated before coming to 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 Client reported besides leaving the house to do those things she mostly sits in her couch and watches TV all day. Client stated she has stopped cooking which is something she really used to enjoy. Client reported she mostly eats frozen meals which she recognizes has resulted in her gaining weight. Therapist started to review and educate client about behavior activation and opposite action. Client stated she can connect with his information because it was just covered in [facility] group session today. Client reports she can really relate that the last couple years she has been waiting for her to feel motivated which has resulted in her sitting around doing not much of anything. Client recognizes now that she has to do something in order to elicit a more positive and motivated emotion. Client reported long-term goals should like to get back to cooking mostly every day, being more active physically with walking or going to the gym, getting back to AA meetings because they used to be really helpful for her, and starting to build socialization community. Client stated over the weekend her first goal is to clean and put away dishes because it something she has been putting off for over 6 weeks. Client reported she just has not done it because when she feels depressed she just tells herself that she does not have the energy to do it. Client agreeable to start with that being the goal this weekend. Client also agreeable to take it before and after picture because she shared she sometimes is not completely truthful because she does not want to disappoint others. Client agreed having picture evidence would be something that would help her be more accountable and honest. Client stated she recognizes by lying and truly only hurting herself. Risks/Concerns:: Client denies active suicidal ideation, plan, intention. Future oriented. Progress Toward Goals/Plan:: Progress noted with client reporting engagement in IOP sessions and slight mood improvement today. Client stated she is responding well to her new medications that she just started. 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 Plan is for client to continue IOP to improve healthy coping skills, increase daily activity, and prevent decompensation. Time Stopped:: 12:35
--- NOTE | 2024-09-07 14:56 | BH.MDN ---
Multi-Disciplinary Note Note 30-min Individual: Time Started:: 12:05 Date: 09/07/24 Purpose of session/treatment goals addressed:: Purpose of session was to address goals 1 and 2 from MTP. Eye Contact:: Good Motor Activity:: Appropriate Appearance:: Casual Speech:: Appropriate Mood:: Euthymic Affect:: Congruent Thoughts:: Linear, Logical and No evidence of hallucinations/delusions noted Time Stopped:: 12:35
== END 2024-08-22 23:59 ==
LOC: BHIOP 08:00
PROVIDERS: PCP Family Medicine; Referring Provider Psychiatry & Neurology Psychiatry; Visit Provider Psychiatry & Neurology Psychiatry
DX: F33.2 Major depressive disorder, recurrent severe without psychotic features (principal); F43.10 Post-traumatic stress disorder, unspecified; F41.1 Generalized anxiety disorder; F12.90 Cannabis use, unspecified, uncomplicated; F10.90 Alcohol use, unspecified, uncomplicated; F15.21 Other stimulant dependence, in remission; F14.91 Cocaine use, unspecified, in remission; F11.21 Opioid dependence, in remission; Z79.899 Other long term (current) drug therapy
CPT/HCPCS: S9480; 90832; 90837; 90853

== ENCOUNTER → 2024-08-17 | Outpatient (CLI) | payer MEDICARE, MEDICAID, SELFPAY ==
[2024-08-17 14:02] LABS: Thyroid Stim Hormone (TSH) 0.711 uIU/mL (0.358-3.740)
[2024-08-17 16:33] LABS: Vitamin D,25 Hydroxy 24.1 ng/mL
== END | disposition home or self-care (01) ==
LOC: LAB 12:31
PROVIDERS: PCP Family Medicine; Referring Provider Psychiatry & Neurology Psychiatry; Visit Provider Psychiatry & Neurology Psychiatry
DX: E55.9 Vitamin D deficiency, unspecified (principal)
CPT/HCPCS: 36415; 82306; 84443

== ENCOUNTER 2024-08-23 08:05 | Outpatient (RCR) | payer MEDICARE, MEDICAID, SELFPAY ==
[2024-08-23 00:48] VITALS: BP 113/68; PULSE 90
--- NOTE | 2024-08-23 09:00 | BH.SGPN.GN ---
Behaviors/Verbalizations/Mental Status: [] Eye contact is good. Motor activity is appropriate. Appearance is casual. Speech is Appropriate. Mood is depressed.. Affect is congruent. Thoughts are linear and logical. No evidence of psychosis. Reviewed daily check in sheet and no reports of suicidal ideations or intent. Client Response/Progress/Benefit: [] Pt participated at times during the group discussion. Attentive. ? I didn?t want to be here today?. She discussed being tired with limited motivation recently which has been impacting her mental health. Despite this she is attempting complete self-care and tasks instead of isolation and sleeping throughout the day. Limited progress. Benefited from group support, encouragement, and feedback. Will continue in IOP to prevent decompensation, increase healthy coping strategies, and improve functioning. Narrative Note: []
--- NOTE | 2024-08-23 10:15 | BH.SGPN.GN ---
Behaviors/Verbalizations/Mental Status: []Eye contact is good. Motor activity is appropriate. Appearance is casual. Speech is Appropriate. Mood is tired and depressed. Affect is flat. Thoughts are linear and logical. No evidence of psychosis. Client Response/Progress/Benefit: [] Pt was engaged and an active participant throughout, providing input and taking notes. Participated throughout interactive discussion on defining anxiety and identifying cognitive and physiological symptoms of anxiety. Group discussed the role of anxiety on isolation, avoidance, and who this emotion impacts their ability to start and complete activities/goals. Pt identified their physical/physiological signs of anxiety (i.e. tight chest, sweating, and racing heart). Pt identified safety behaviors (i,e sleep, reassurance seeking, and avoidance.) Benefited from increased awareness and insight on anxiety and its impact. Will continue in IOP to improve daily functioning, gain healthy coping skills, and improve social support. Narrative Note: []
--- NOTE | 2024-08-23 11:15 | BH.SGPN.GN ---
Behaviors/Verbalizations/Mental Status: []Pt alert and oriented, casually dressed and groomed. Eye contact good. Motor activity appropriate. Speech within normal limits. Affect congruent, mood tired. Thoughts linear, logical, no signs of hallucinations or delusions. Client Response/Progress/Benefit: [] Pt was an active participant AEB pt providing input and listening attentively to peers. Attentive during psychoeducation on mindfulness coping skills and their impact on reducing anxiety and improving overall mental health wellness. Group was able to identify self-soothing and mind-based coping skills which included: 5-senses, meditation, deep breathing, TIPP, thought challenging, and progressive muscle relaxation. Pt also participated with peers in practicing mindfulness skills in session including deep breathing. Pt would like to work on going for a walk for 10-15 minutes to manage anxiety. Appeared to benefit from increasing repertoire of anxiety reduction skills. Pt will continue in IOP tx to prevent decompensation, improve daily functioning, and reduce isolation. Narrative Note: []
--- NOTE | 2024-08-25 09:05 | BH.SGPN.GN ---
Behaviors/Verbalizations/Mental Status: [] Pt alert and oriented, casually dressed and groomed. Eye contact good. Motor activity appropriate. Speech within normal limits. Affect congruent, mood depressed . Thoughts linear, logical, no signs of hallucinations or delusions. Reviewed pt?s symptom tracker, no risk for suicidal ideation, plan, or intent 08/24/24 Client Response/Progress/Benefit: []Pt was an active participant in group discussions. Attentive. Able to identify mental health wins including getting to group on time despite a chaotic morning dues to an incident at work. Pt did well to identify skills she used to remain calm and effectively address the issue without it escalating. Additional win noted as getting some necessary repairs done on her car as this has been a major stressor for her and continues to be due to cost. Identified that paying for the repair will be a temporary inconvenience and once she successfully does so, she will have more freedom to secure alternative employment opportunities. Benefited from group support, encouragement, and feedback. Will continue in IOP to prevent decompensation, improve daily functioning, and promote mood stability. Narrative Note: []
--- NOTE | 2024-08-25 10:10 | BH.SGPN.GN ---
Behaviors/Verbalizations/Mental Status: [] Eye contact is good. Motor activity is appropriate. Appearance is casual. Speech is Appropriate. Mood is depressed/irritable. Affect is congruent. Thoughts are linear and logical. No evidence of psychosis. Client Response/Progress/Benefit: [] Pt was an active participate AEB listening attentively to others, participating in group discussions, and taking notes throughout. Participated as the group defined emotion dysregulation and identified ways we can hurt others or sabotage self by not regulating our emotions. Participated with peers to identified ways emotions impact communication which included; shutting down, being irritable/short with others, difficulty focusing/staying on topic, confusion, zone out, and being aggressive or dismissive to others. Participated during group activity. Pt benefited from session by gaining an increased understanding on the importance of managing emotions to improve daily functioning. Will continue IOP tx to prevent decompensation, increase healthy coping, and increase functioning. Narrative Note: []
--- NOTE | 2024-08-25 11:15 | BH.SGPN.GN ---
Behaviors/Verbalizations/Mental Status: []Pt alert and oriented, casually dressed and appropriately groomed. Eye contact good. Motor activity appropriate. Speech within normal limits. Affect congruent, mood euthymic and anxious. Thoughts linear, logical, no signs of hallucinations or delusions. Client Response/Progress/Benefit: [] Pt engaged in session AEB Pt listening attentively to peers and providing input. Attentive during psychoeducation on 4 zones of regulation. Pt able to identify feelings and behaviors for each zone. Pt identified coping skills one can use to support self in each zone. Pt stated she most often is in the blue zone which leads her to stay stuck and increases her depression. Pt reported healthy coping skills she wants to practice that could help in each zone include: house work, setting goals, and staying present. Benefited from increased education on zones of regulation or stages of alertness for emotions and healthy coping skills to use for each zone. Will continue IOP tx to increase healthy coping skills, challenge distortions, and prevent decompensation.
--- NOTE | 2024-08-26 10:10 | BH.SGPN.GN ---
Behaviors/Verbalizations/Mental Status: []Pt alert and oriented, casually dressed and groomed. Eye contact good. Motor activity appropriate. Speech within normal limits. Affect congruent, mood dysthymic. Thoughts linear, logical, no signs of hallucinations or delusions. Client Response/Progress/Benefit: [] Pt took notes and contributed to group discussions. Attentive during psychoeducation on growth mindset. Participated during the activity. Interactive group discussion on growth mindset in which group verbalized their current fixed mindsets and how they affect their mental health. Pt shared common fixed mindset thoughts they have which included I'm never getting better; I?m not good enough?. These thoughts lead to feeling and staying stuck, not letting supports help, and self-criticism. Pt stated they have personally struggled with fixed thoughts causing them to stop trying. Pt benefited from increased awareness of growth mindset and fixed thoughts and how fixed thoughts impact their mental health. Will continue IOP tx to prevent decompensation, improve daily functioning, and promote mood stability. Narrative Note: []
--- NOTE | 2024-08-26 11:15 | BH.SGPN.GN ---
Behaviors/Verbalizations/Mental Status: []Pt alert and oriented, neatly dressed and groomed. Eye contact good. Motor activity appropriate. Speech within normal limits. Affect congruent, mood euthymic. Thoughts linear, logical, no signs of hallucinations or delusions. Client Response/Progress/Benefit: [] Pt was an active participant during activity and discussion. Pt did well to remain attentive and participate as group worked on identifying characteristics and benefits of adopting a growth mindset. Worked with fellow participants in reframing the example fixed thoughts into growth mindset thoughts. 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 Pt also wants to work on using positive self-talk. appeared to benefit from challenging own thoughts and engaging in the activity. Pt will continue IOP tx to reduce negative thinking patterns, improve distress tolerance skills, and improve daily functioning. ? Narrative Note: []
--- NOTE | 2024-08-26 12:21 | BH.MDN ---
Multi-Disciplinary Note Note 45-min Individual: Time Started:: 09:05 Date: 08/26/24 Purpose of session/treatment goals addressed:: Purpose of session was to address goals 1 and 2 from [facility]. Eye Contact:: Good Motor Activity:: Appropriate Appearance:: Casual Speech:: Appropriate Mood:: Euthymic Affect:: Congruent Thoughts:: Linear, Logical and No evidence of hallucinations/delusions noted Staff Interventions:: thought challenging, motivational interviewing, CBT techniques, rapport building, strengths perspective, goal setting and taught coping skills Client Response:: Client reported yesterday after IOP she did follow through with her goal of taking a walk. Client stated she walk for about 10 minutes. Client did struggle with giving herself credit because she was judging herself based on what she used to be able to do which was walk a lot longer. Client was receptive to thought challenge and agreed beating herself up by comparing her current functioning to her functioning many years ago is not fair to herself. Client stated she can see when she is negative and beats herself up it makes her feel worse and keeps her stuck. Client reported she is happy that she did choose to go walking yesterday because is the first time she walked in a long time. Client stated she is frustrated though because after going for a walk she wanted to go home and get some tasks done but instead ate lunch and laid on her couch the rest of the day. Client reported she really struggles with following through on the tasks that she wants to complete like keeping her house clean, showering, and going outside the house. Client stated when she sits on the couch she tends to stay there the rest of the day watching TV or napping. Client stated she struggles because she tends to over think tasks and chores and get done which then ends up in her remaining on the couch and doing nothing. Client responded well to reviewing behavior activation and discussed impact sitting on the couch could have on her ability to complete her daily goals. Client receptive to identifying one task each day for the weekend for her to focus on which might help decrease overthinking and breakdown her chores into more manageable parts. Client wrote down 1 chore per day including today until Thursday. Client stated she does believe that tasks that she identified are realistic and doable. Risks/Concerns:: Client denies suicidal ideation, plan, intention. Progress Toward Goals/Plan:: Progress note of client using opposite action to make herself go for a walk yesterday which is the first walk she has taken in the long time. Client has struggled with following through on getting tasks and chores done around the house often sitting on her couch watching TV and napping. Discussed strategies to help increase follow through and decrease time inside the house. Client is going to focus on trying to get at least 1 thing done each day and be more active by taking a walk. Plan is for client to continue IOP to increase follow through, challenge negative distorted thoughts, and prevent decompensation. Time Stopped:: 09:50
--- NOTE | 2024-08-30 09:02 | BH.SGPN.GN ---
Behaviors/Verbalizations/Mental Status: [] Client alert and oriented, casual appearance. Eye contact good. Motor activity appropriate. Speech within normal limits. Affect congruent, mood anxious. Thoughts linear, logical, no signs of hallucinations or delusions. Reviewed client's symptom tracker, no risk for suicidal ideation, plan, or intent. Client Response/Progress/Benefit: [] Client responded well to session AEB listening to others and sharing thoughts/feelings. Client reported mental positive as being able to afford to get some of her car fixed. Client stated help however she still has quite a bit of things that need repaired that she can afford at this time. Client reported mental health positive as being able to spend time with her granddaughter yesterday which often is a mood booster. Client stated additional positive as her youngest child calling her just to talk about how things are going and it felt good to connect. Client stated her current stressor is her youngest kid wants her to come and help when her kid has an upcoming surgery however client stated she does not think she can go because the client's son has a protection order against client from over a year and a half ago. Client expressed anxiety about being letting her kids know that she cannot come help unless there is no more protection order. Client expressed frustration that the protection order that has been put in place by her son was from some things that happened over 10 years ago and some things that her son had made up and never happened. Client stated she would love to be able to help her child to improve their relationship but does not want to risk being charged with a felony for breaking a protection order. Has appeared to benefit from support from peers. Will continue IOP tx to improve boundary setting, challenge negative thoughts, and prevent decompensation. Narrative Note: []
--- NOTE | 2024-08-30 10:10 | BH.SGPN.GN ---
Behaviors/Verbalizations/Mental Status: []Client alert and oriented, casually dressed and groomed. Eye contact good. Motor activity appropriate. Speech within normal limits. Affect congruent, mood anxious and content. Thoughts linear, logical, no signs of hallucinations or delusions. Client Response/Progress/Benefit: [] Pt responded well to session AEB actively participating throughout group. Pt was attentive throughout group activity discussing famous individuals and how they overcame failure to be successful. Pt helped group identify how fear of failure can impact mental health and relationships. Pt personally identified it leads to pt feeling afraid of disappointing others and then self-sabotaging. participated in experiential activity, working with group members to problem solve. Appeared to benefit from increased knowledge of what causes fear of failure and how it impacts people. Will continue IOP tx to prevent decompensation, improve daily functioning, and increase emotional regulation skills. Narrative Note: []
--- NOTE | 2024-08-30 11:10 | BH.SGPN.GN ---
Behaviors/Verbalizations/Mental Status: []Client alert and oriented, casually dressed and groomed. Eye contact good. Motor activity appropriate. Speech within normal limits. Affect congruent, mood euthymic. Thoughts linear, logical, no signs of hallucinations or delusions. Client Response/Progress/Benefit: [] Pt responded well to session, engaged in the experiential activity and attentive throughout group processing. Pt reported fear of failure has kept Pt from going to college, avoiding confrontation, and not speaking her true feelings. Pt completed fear of failure worksheet and was able to identify thoughts and behaviors that reinforce personal fear of failure including not asking for help, avoidance, and cognitive distortions. Pt participated in small group discussion regarding strategies to overcome fear of failure. Identified wanting to work on avoiding her safety behaviors and continuing to step out of her comfort zone at therapy. Appeared to benefit from increased knowledge of strategies to combat fear of failure and gaining self-awareness. Pt will continue IOP tx to reduce negative thinking patterns, improve daily functioning, and gain healthy coping skills. ? Narrative Note: []
--- NOTE | 2024-09-01 09:00 | BH.SGPN.GN ---
Behaviors/Verbalizations/Mental Status: [] Eye contact is good. Motor activity is appropriate. Appearance is casual. Speech is Appropriate. Mood is depressed. Affect is congruent. Thoughts are linear and logical. No evidence of psychosis. Reviewed daily check in sheet and no reports of suicidal ideations or intent. Client Response/Progress/Benefit: [] Pt was an active participant in group discussions. Attentive. She states that she is keeping busy and completing tasks. She is trying ? not to isolate?. Emotion for today is ?engaged?. She is working through several difficulty life decisions. She reports that she has put off decisions as she is scared of change and leaving her comfort zone, however insight on how not making changes is impacting her. Benefited from group support, encouragement, and feedback. Will continue in IOP to prevent decompensation, increase healthy coping, and improve functioning.? Narrative Note: []
--- NOTE | 2024-09-01 10:15 | BH.SGPN.GN ---
Behaviors/Verbalizations/Mental Status: [] Pt alert and oriented, appropriate grooming/appearance. Eye contact good. Motor activity appropriate. Speech within normal limits. Affect congruent, mood depressed. Thoughts linear, logical, no signs of hallucinations or delusions. Client Response/Progress/Benefit: [] Pt was an active participant in group discussions. Attentive during psychoeducation. Contributed during interactive discussions in which peers attempted to define crisis. Group identified examples of potential crisis. Group also worked together to identify unhealthy responses to crisis which included lashing out, isolation, self-harm, and distraction. Pt identified personal warning signs for crisis as isolating, increased sleep, and lack of self-care. Benefited from increased understanding of crisis and awareness of personal responses to crisis. Pt will continue IOP tx to increase functioning and prevent decompensation. Narrative Note: []
--- NOTE | 2024-09-01 11:15 | BH.SGPN.GN ---
Behaviors/Verbalizations/Mental Status: []Pt alert and oriented, appropriate grooming/appearance. Eye contact good. Motor activity appropriate. Speech within normal limits. Affect congruent, mood euthymic. Thoughts linear, logical, no signs of hallucinations or delusions. Client Response/Progress/Benefit: []Pt was an active participant in group discussions. Attentive during psychoeducation. In small group pt along with peers developed an active plan for their crisis warning signs. Pt identified three crisis warning signs as well as an action plan for each. One crisis warning sign was loss of interest/isolation. Pt identified coping skills to help with this such as: moving to a different room in her house at least once a day, scheduling to see a support person, and set two goals to get something done in the house. Benefited from increased awareness of crisis warning signs and by developing crisis intervention strategies. Will continue in IOP to promote use of healthy coping skills, improve boundary setting, and prevent decompensation.
--- NOTE | 2024-09-01 16:50 | BH.MDN ---
Multi-Disciplinary Note Note 30-min Individual: Time Started:: 12:15 Date: 09/01/24 Purpose of session/treatment goals addressed:: Purpose of session was to address goals 1 and 2 from MTP. 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 Client stated she has to work 7 days a week and has to get up at 3am. Client reported she doesn't think the job is worth it anymore, but will maintain until she can afford to fix her car. Client stated she knows of another possible job that would be not everyday and wouldn't have to get up at 3am. Client reported she has struggled with following through on the goals created last individual session. Client stated she did follow through with goal of eating her lunch at the kitchen table instead of at her couch. However, client stated she did go lay on the couch after eating instead of doing one of the post it notes made from last week. Client reported she is frustrated with herself for not following through on more of the goals created. Client agreed sitting on her couch is a pitfall because she will stay on the couch the rest of the night. Client agreed it could be helpful to put a sticky note reminder to get one thing accomplished before she sits down. Client and therapist also discussed recent stressor of client being asked to go to her son's house on , but her son has a protection order against her. Client reported she doesn't think it would be a good decision to go until her son decides to remove the protection order. Client stated she plans to talk to her son this weekend that client won't be able to come if there is still a protection order in place because client stated she doesn't want to get into legal trouble. Risks/Concerns:: Denies suicidal ideation, plan, or intention to date. future oriented. continues to report sobriety. Progress Toward Goals/Plan:: Progress variable. Client does report progress with following through on sitting at her kitchen table to get lunch. client stated she continues to struggle with motivation to do much besides lay on her couch watching shows and taking naps. Client stated she does believe having to get up early everyday is contributing to her low motivation for the rest of the day because she's exhausted. Client is to continue IOP to increase follow through on goals, challenge distorted thoughts, and prevent decompensation. Time Stopped:: 12:45
--- NOTE | 2024-09-02 09:00 | BH.SGPN.GN ---
Behaviors/Verbalizations/Mental Status: [] Eye contact is good. Motor activity is appropriate. Appearance is casual. Speech is Appropriate. Mood is anxious. Affect is congruent. Thoughts are linear and logical. No evidence of psychosis. Reviewed daily check in sheet and no reports of suicidal ideations or intent. Client Response/Progress/Benefit: [] Pt was an active participant in group discussion. Attentive. Symptom tracker notes 11/27 for depression and anxiety. I had a good productive day yesterday. Notes that she is begining to see mental health improvements from the IOP program. I'm happier and more hopeful. Less isolation and sleeping to escape. Went on to state that she is taking action on stressors and distress. I'm in the action phase. Elaborated on skills, perspective changes, and other mental health benefits. Progress noted. Benefited from group support, encouragment, and feedback. Will continue in IOP to prevent decompensation, increase healthy coping, and improve functioing. Narrative Note: []
--- NOTE | 2024-09-02 10:10 | BH.SGPN.GN ---
Behaviors/Verbalizations/Mental Status: [] Pt alert and oriented, casually dressed and groomed. Eye contact good. Motor activity appropriate. Speech within normal limits. Affect congruent, mood depressed. Thoughts linear, logical, no signs of hallucinations or delusions. Client Response/Progress/Benefit: [] Pt participated during small group discussions. Attentive during psychoeducation about defense mechanisms and taking notes throughout. Showed engagement during small group discussions and helped group identify which defense mechanisms were maladaptive, adaptive, or ?somewhere in the rogers.? Noted she struggles with suppression, sublimation, and humor defense mechanisms. Pt worked with small group on identifying how each defense mechanism can impact mental health and gave examples. ?Seemed to benefit from gaining awareness about the different defense mechanisms. Pt to continue IOP tx to prevent decompensation, stabilize mood, increase healthy coping, and improve functioning. Narrative Note: []
--- NOTE | 2024-09-02 11:10 | BH.SGPN.GN ---
Behaviors/Verbalizations/Mental Status: []Pt alert and oriented, casually dressed and groomed. Eye contact good. Motor activity appropriate. Speech within normal limits. Affect congruent, mood euthymic and tired. Thoughts linear, logical, no signs of hallucinations or delusions. Client Response/Progress/Benefit: []Pt responded well to session, participating in activity and small group discussion. Group reviewed the rest of the defense mechanisms and discussed how these are adaptive, maladaptive, or somewhere in the rogers. Pt participated in the experiential activity which encouraged pts to draw a castle that portrayed their different defense mechanisms. Pt's defense mechanisms included humor, suppression, denial, and projection. Pt shared wanting to work on not relying only on humor. Pt listened to information receptionist teach different skills to help pt?s cope with or change their defense mechanisms. Pt appeared to benefit from gaining insight to the different defense mechanisms and learning coping skills. Pt will continue IOP tx to promote mood stability, increase healthy coping skills, and reduce negative thoughts. Narrative Note: []
--- NOTE | 2024-09-07 09:05 | BH.SGPN.GN ---
Behaviors/Verbalizations/Mental Status: [] ?Pt alert and oriented, casually dressed and groomed. Eye contact good. Motor activity appropriate. Speech within normal limits. Affect congruent, mood depressed. Thoughts linear, logical, no signs of hallucinations or delusions. Reviewed pt?s symptom tracker, no risk for suicidal ideation, plan, or intent 09/07/24 Client Response/Progress/Benefit: []Pt receptive of session, reports struggling to find any positives today as she has been dealing with several stressors including the of her ex- and her child's upcoming top surgery. Discussed trying to accept her child as transgender but this has been a difficult process for her. Reports loving her child no matter what but still adjusting to now having a son rather than a daughter. Pt benefited from group supportive feedback, encouragement, and support. Recommended continued IOP tx to prevent decompensation, improve mood stability, and promote skill application. Narrative Note: []
--- NOTE | 2024-09-07 10:15 | BH.SGPN.GN ---
Behaviors/Verbalizations/Mental Status: []Pt alert and oriented, casually dressed and groomed. Eye contact fair. Motor activity appropriate. Speech within normal limits. Affect constricted, mood tired and sad. Thoughts linear, logical, no signs of hallucinations or delusions. Client Response/Progress/Benefit: []Pt participated in group discussion. Group worked together to identify benefits of healthy relationships which included encouragement, motivation, longer lifespan, connectedness and trust. Group identified factors that lead to unhealthy relationships which included low self-esteem, trauma, use of unhealthy skills, parent's negative relationship growing up, and co-dependence. Pt reports she has entered unhealthy relationships because of her own negative view of self and because of her upbringing being so toxic. Benefited from increased insight and awareness of benefits of healthy relationships and factors that contribute to unhealthy relationships. Will continue in IOP to increase consistent use of healthy coping skills, challenge negative thoughts, and increase overall functioning. Narrative Note: []
--- NOTE | 2024-09-07 11:15 | BH.SGPN.GN ---
Behaviors/Verbalizations/Mental Status: [] Pt alert and oriented, casually dressed and groomed. Eye contact good. Motor activity appropriate. Speech within normal limits. Affect full, mood euthymic, Thoughts linear, logical, no signs of hallucinations or delusions Client Response/Progress/Benefit: [] Client responded well to session, engaged and taking notes throughout. Worked with group to connect components of the experiential activity with characteristics of healthy and unhealthy relationships. Attentive during psychoeducation about characteristics of healthy, unhealthy, and abusive relationships. Client reported she would like to continue to improve communication, respect, and honesty in relationship. Appeared to benefit from identifying current healthy relationship attributes and an area client wants to work on to build healthier relationships. Client to continue IOP to challenge distortions, improve boundary setting, and prevent decompensation.
--- NOTE | 2024-09-07 11:32 | PCM.BH.PN ---
Progress Note Progress Note: History of Present Illness/Interim History: The patient is a 59-year-old single, female with a history of depression, anxiety, PTSD, polysubstance abuse (sober for 10 years) and alcohol use disorder (sober for 9 weeks). She is seen in follow-up at the [facility] behavioral health IOP. The patient states that she has been feeling better and had decrease in her feelings of sadness, worthlessness and hopelessness although they were still present at times. She is not being triggered as easily and her thoughts and memories of past trauma have become less frequent lately. She has only had 1 nightmare in recent weeks and she was having them frequently prior to starting the IOP. She is tolerating her medication well and she remains sober from all drugs and alcohol. She gets a sense of accomplishment from her job at the [employer] and enjoys this. She is getting about 4 hours of sleep at night due to her job but frequently naps during the day. She states that physical pain wakes her up often. She feels she is learning valuable skills in the IOP helpful for managing her trauma memories and depression symptoms and states that she is not so hard on herself anymore. The patient does have 2 stressors that have happened in the last few days including her ex- dying of cancer 5 days ago which was expected but still has made her sad and her grief. In addition her biological daughter is transitioning to become a trans male and is getting top surgery soon and the patient is stressed by this also. She denies passive thoughts of , suicidal ideation, plan for suicide, homicidal ideation, hallucinations, delusions or symptoms of j luis. Current Psychiatric Medications: [] Suboxone p.o. twice daily; BuSpar 5 mg p.o. twice daily; Lexapro 10 mg p.o. daily (restarted 3 weeks ago). Mental Status Examination: [] The patient is a 59-year-old female wearing glasses who appears otherwise normal for stated age and is casually dressed and groomed with good hygiene. She has no psychomotor agitation or retardation and is ambulatory with a normal gait. She is cooperative during the interview. Speech is normal rate and rhythm and fluent with no pressure and eye contact is good. Mood is sad due to grieving. Affect is mildly constricted. Thought process is goal-directed and organized. Thought content: Patient is grieving the of her ex-. There is no evidence of passive thoughts of , suicidal ideation, plan for suicide, homicidal ideation, hallucinations or delusions. Reality testing is intact. Intelligence is average or below. Judgment is intact. Insight is limited but some present. Impulsivity is high. Diagnoses: [] 1. Major depressive disorder, recurrent, moderate 2. PTSD 3. Generalized anxiety disorder 4. Marijuana and alcohol use disorder (sober x 9 weeks) 5. History of methamphetamine, cocaine and opiate use disorder (sober for over 10 years on medication). 6. Primary support and work issues Plan: [] The patient will continue the IOP and behavioral health as the structure, support, education, and group therapy will hopefully prevent worsening of the patient's symptoms. She felt safe during the interview and if it anytime she does not feel safe she agrees to let us know or go to the emergency room. The risk, options, possible complications and side effects of the medications were again discussed with the patient and she understands accepts these. She agrees to increase her BuSpar to 10 mg p.o. twice daily and prescription is sent in for this and a refill is sent in for her current Lexapro dose. No other medication changes were made. She will continue to follow-up with her outpatient providers and I will see the patient in follow-up while she is in the IOP.
--- NOTE | 2024-09-07 14:48 | BH.MDN_ITS ---
Multi-Disciplinary Note Note 30-min Individual: Time Started:: 12:15 Date: 09/07/24 Purpose of session/treatment goals addressed:: Purpose of time was to address goals 1 and 2 from MTP. Eye Contact:: Good Motor Activity:: Appropriate Appearance:: Casual Speech:: Appropriate Mood:: Anxious and Other (sad) Affect:: Congruent Thoughts:: Linear, Logical and No evidence of hallucinations/delusions noted Staff Interventions:: thought challenging, CBT techniques, strengths perspective, goal setting, taught coping skills and other (pros/cons) Client Response:: Client reported mental positive and being productive over the last few days by using opposite action. Client stated she has washed all her dishes which is something she had not done since June. Client reported additional wings was cleaning her curtains, coloring her hair, and getting 2 out of 4 of her AC units out of the windows and stored away. Client stated she has noticed a improvement in her mood now that she has been starting to put more effort into using opposite action and getting things done around the house. Client reported she has not been sitting in her chair either watching TV or napping very often. Client reported she continues to follow through with eating lunch at the dining room table. Client stated she would like to continue working on increasing how often she cooks at home versus eating a TV dinner. Client reported she is struggling with feeling some grief and sadness because her ex recently. Client stated he is the 1 that got away. Client reported despite not being together for many years they have stay connected and talked at least once a week on the phone. Client stated she really loved him and is going to miss not having that connection anymore. Client stated she does think it would be helpful for closure to go to his calling hours this week because she does know his family as well. Client stated currently she is feeling conflicted because her son is having surgery next month and her son has asked client to stay with him to help him recover from surgery. Client reported she initially had said yes but after thinking about it she realizes if anything were to go wrong in her son called the police she would get in trouble for breaking a protection order. Client stated breaking a protection order is an automatic felony charge. Client reports she does not want to go to assisted because she has worked too hard to not have her freedom anymore. Client receptive to thought challenge from therapist. Client worked with this senior mortgage underwriter to develop a pros and cons list of going to help her son versus setting a boundary with him. Client stated after thinking about all sides of the situation she knows she has to set the boundaries and tell them that she cannot help unless the protection order is lifted. Client recognizes she is pushing this conversation off and needs to do it soon so that he can find a replacement to help him recover from surgery. Risks/Concerns:: Denies suicide ideation, plan, intention. Future oriented. Progress Toward Goals/Plan:: Progress noted with client noting improved daily functioning with starting to get things done around the house, improve mood, and feeling more motivated. Client stated she has a decrease in napping throughout the day and is not just sitting around. Client has followed through with trying to change up her routine by no longer eating her lunch on the couch which often would lead to her laying down and getting nothing done. Client has noted some increase in anxiety over the decision and need to set a boundary with her son about not helping him with his surgery recovery due to the protection order her son has against her. Client also notes increase in sadness due to her ex passing away on Thursday. Plan is for client to promote use of healthy coping skills, improved boundary setting, and prevent decompensation. Time Stopped:: 12:40
--- NOTE | 2024-09-07 15:47 | BH.MTP_ITS ---
Treatment Plan Review Demographics Date of Admission:: 08/15/24 Date of Treatment Plan Review:: 09/07/24 Admitting Diagnoses:: 1. Major depressive disorder, recurrent, severe without psychosis F33.2 2. PTSD 3. Generalized anxiety disorder 4. Marijuana and alcohol use disorder (sober x 1 month) 5. 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 Major depressive disorder, recurrent, severe without psychosis F33.2 2. PTSD 3. Generalized anxiety disorder 4. Marijuana and alcohol use disorder (sober x 1 month) 5. History of meth amphetamine, cocaine and opiate use disorder (sober for over 10 years) Patient Status Patient's Response to Treatment:: Client responded well to IOP as evidenced by consistent attendance, actively speech in group sessions, and starting to more consistently apply healthy coping skills and strategies outside of treatment environment. Status of Current Problems and Symptoms: Client has shown treatment progress with starting to get more things done around the house which shows improved daily functioning. Client also has reported decrease in napping, eating lunch at her dining table, and following through with goals set in sessions. However, client is reporting increased sadness and grief because her ex that she was still close to over the weekend. Client is reporting depressed feelings with some decrease in concentration, increased crying, slight decrease in energy, and overthinking. Client also reporting anxiety connected to a psychosocial stressor of her son wanting client to go help during the recovery of her son's surgery but client does not think she should because her son has a protection order against her. Client feeling conflicted and having a difficult time setting a boundary with her son about not being able to go because she does not want to get charged with a felony. Per DSM-5 cross cutting scale at review client's overall mental symptoms have decreased by 23%. Progress Problem #1: Problem Name:: Depression Status of Goals:: Obj 1 -not met. Client has reported use of healthy coping skills like upset action, using visual aids, and setting daily intentions as ways to combat depressed symptoms and low motivation. Recently client has started to follow through with the daily goal of getting at least 1 chore done. However per DSM-5 cross cutting score client has scored her depression and 8 out of 8 which is the same as her admission score. This could be connected to recent loss of her ex that has triggered increased grief. Objective 2-not met. Client starting to improve awareness on negative thought patterns that tend to reinforce her depressed symptoms and maintain depression. Client could benefit from continuing to practice challenging and identifying distorted thoughts independently. Team Recommendations:: Team recommends client continue current objectives and goals to allow time for consistent application of skills and strategies. Team recommends increased focus on setting boundaries and identifying pros and cons of going back on boundaries with others. Problem #2: Problem Name:: Anxiety Status of Goals:: Objective 1-progress noted, not met. Client is able to note healthy calming skills to help manage her anxiety like belly breathing, grounding tools, and asking for evidence against anxious thoughts. Per DSM-5 cross cutting measure client's anxiety has decreased by 36%. Objective 2- progress noted continued work encouraged. Client able to identify numerous anxiety triggers but is still working on establishing healthy coping skills that can help manage those triggers in the moment. Team Recommendations:: Team recommends client continue current objectives and goals to allow time for consistent application of skills and strategies. Team recommends increased focus on setting boundaries and identifying pros and cons of going back on boundaries with others.
--- NOTE | 2024-09-09 09:05 | BH.SGPN.GN ---
Behaviors/Verbalizations/Mental Status: [] Eye contact is good. Motor activity is appropriate. Appearance is casual. Speech is Appropriate. Mood is depressed. Affect is congruent. Thoughts are linear and logical. No evidence of psychosis. Reviewed daily check in sheet and no reports of suicidal ideations or intent. Client Response/Progress/Benefit: [] Pt was an active participant in group discussions. Attentive. Daily symptom tracker notes 11/27 for depression and anxiety. Grief related to her ex-?s . Calling hours today. ? I?m working through this grief?. Grief has exacerbated mental health and physical pain. Benefited from group support, encouragement, and feedback. Will continue in IOP to prevent decompensation, increase healthy coping, and improve functioning. Narrative Note: []
--- NOTE | 2024-09-09 10:15 | BH.SGPN.GN ---
Behaviors/Verbalizations/Mental Status: [] Eye contact is good. Motor activity is appropriate. Appearance is casual. Speech is Appropriate. Mood is dysthymic. Affect is congruent. Thoughts are linear and logical. No evidence of psychosis. Client Response/Progress/Benefit: [] Pt engaged participant AEB listening to others, engaging in activity, and providing feedback at times. Attentive during psychoeducation and provided insight into obstacles that impede mental wellness. Pt shared with group current mental health reality and desired mental health reality, noting that she feels alone and unsure of how to mend damaged connections. Desires more respect and connection. Identified barriers to desired reality include: self-doubt, fear of not being worthy, and guilt over past failures. Benefited from taking look at current mental health state and obstacles for progress. Pt to continue IOP tx to decrease anxiety, improve thought challenging skill application and self-talk, and prevent decompensation. Narrative Note: []
--- NOTE | 2024-09-09 11:15 | BH.SGPN.GN ---
Behaviors/Verbalizations/Mental Status: []Eye contact is good. Motor activity is appropriate. Appearance is casual. Speech is Appropriate. Mood is tired and euthymic. Affect is congruent. Thoughts are linear and logical. No evidence of psychosis. Client Response/Progress/Benefit: []Pt was an engaged participant in group discussion and activity. Worked with group to identify strategies to help overcome barriers and obstacles to desired reality. Group developed strategies for the common barriers. Identified personal barriers to desired reality and choose one obstacle to work. Pt stated pt wants to work on barrier of fear of communicating by pushing herself to be vulnerable and address one thing. Pt seemed to benefit from increased repertoire of healthy coping skills/strategies to overcome common barriers to moving forward. Pt is to continue IOP to prevent decompensation, increase healthy coping skills, and improve daily functioning. Narrative Note: []
--- NOTE | 2024-09-12 09:01 | BH.SGPN.GN ---
Behaviors/Verbalizations/Mental Status: [] Client alert and oriented, casual appearance. Eye contact good. Motor activity appropriate. Speech within normal limits. Affect congruent, mood sad and positive. Thoughts linear, logical, no signs of hallucinations or delusions. Reviewed client's symptom tracker, no risk for suicidal ideation, plan, or intent. Client Response/Progress/Benefit: [] Client responded well to session AEB listening to others and sharing thoughts/feelings. Client stated mental positive as going to calling others for her ex even though it was really hard because she is feeling a lot of grief towards this loss. Client stated she is glad she went because it was helpful closure for her. Client noted additional mental health positive as being more productive at home. Client stated she also has been sleeping better and not sleeping during the day as often. Client identified current stressor is managing the grief that she is feeling. Appeared to benefit from support from peers. Will continue IOP tx to promote use of healthy coping skills, challenge distortions, and prevent decompensation. Narrative Note: []
--- NOTE | 2024-09-12 10:10 | BH.SGPN.GN ---
Behaviors/Verbalizations/Mental Status: []Patient was alert and oriented, casually dressed and groomed. Eye contact good. motor activity congruent. speech within normal limits. Affect congruent, mood euthymic. Thoughts linear, logical, no signs of hallucinations or delusion. Client Response/Progress/Benefit: []Pt participated in the group discussions AEB nodding and taking notes. Attentive during psychoeducation Goal Setting. Participated during the discussion on common barriers and pt identified some personal barriers as lack of motivation and depressed mood. Group also identified benefits of goals as sense of purpose, improved self-confidence, more motivation for other goals, and improved mental health. Pt identified personal benefits to goal setting. Benefited from increased awareness of mental health benefits of goals as well as psychoeducation on SMART goal criteria. Will continue in IOP to improve follow through of goals, challenge negative thinking, and prevent decompensation.
--- NOTE | 2024-09-12 11:15 | BH.SGPN.GN ---
Behaviors/Verbalizations/Mental Status: []Pt alert and oriented, casually dressed and groomed. Eye contact good. Motor activity appropriate. Speech within normal limits. Affect congruent, mood content. Thoughts linear, logical, no signs of hallucinations or delusions. Client Response/Progress/Benefit: [] Pt was engaged during discussion and willing to complete the worksheet challenging them to develop a personal SMART goal. Pt chose the goal of cleaning her carpet for 5 minutes 2x in the next week. Pt stated procrastination as a potential barrier. Identified solutions of getting all the supplies ready ahead of time and not turinging on the t.v. until after completing the goal. Benefited from this group by developing a short-term SMART goal related to mental health. Will continue IOP tx to increase consistent use of healthy coping skills, challenge and replace negative self-talk messages, and prevent decompensation. Narrative Note: []
--- NOTE | 2024-09-13 09:05 | BH.SGPN.GN ---
Behaviors/Verbalizations/Mental Status: [] ?Pt alert and oriented, casually dressed and groomed. Eye contact good. Motor activity appropriate. Speech within normal limits. Affect congruent, mood depressed. Thoughts linear, logical, no signs of hallucinations or delusions. Reviewed pt?s symptom tracker, no risk for suicidal ideation, plan, or intent 09/13/24 Client Response/Progress/Benefit: []Pt receptive of session, engaged throughout and appearing to benefit from group support and encouragement. Identified current mental health wins as getting he vacuum cleaner repairer for her apartment and breaking down the task into smaller steps so as to not feel so overwhelming. Additional win noted as feeling more capable of completing daily goals and fewer desires to avoid/procrastinate. Current stressor noted as ongoing struggles with her adult children. Did well to challenge these distortions reinforcing pt?s anxiety. Benefited from group supportive feedback, encouragement, and support. Recommended continued IOP tx to prevent decompensation, improve mood stability, and promote skill application. Narrative Note: []
--- NOTE | 2024-09-13 10:15 | BH.SGPN.GN ---
Behaviors/Verbalizations/Mental Status: [] Eye contact is good. Motor activity is appropriate. Appearance is casual. Speech is Appropriate. Mood is anxious. Affect is congruent. Thoughts are linear and logical. No evidence of psychosis. Client Response/Progress/Benefit: [] Pt was an engaged participant AEB listening attentively to others, taking notes, and providing feedback in small group discussions. Attentive during psychoeducation AEB by note taking and providing some input. Pt worked along with peers in small groups to define inappropriate guilt and appropriate guilt. Interactive discussion on examples of both inappropriate and appropriate guilt. Worked well in small group with peers where they identified example of inappropriate vs appropriate guilt and the impact inappropriate guilt can have on MH. Benefited from increased awareness of guilt and the differences between appropriate and inappropriate guilt. Plan is to continue in IOP to prevent decompensation, increase healthy coping, and decrease isolative behaviors. Narrative Note: []
--- NOTE | 2024-09-13 11:15 | BH.SGPN.GN ---
Behaviors/Verbalizations/Mental Status: []Pt alert and oriented, casually dressed and groomed. Eye contact good. Motor activity appropriate. Speech within normal limits. Affect congruent, mood euthymic and anxious. Thoughts linear, logical, no signs of hallucinations or delusions. Client Response/Progress/Benefit: []Pt engaged participant AEB listening attentively to others and providing input throughout group. Pt worked within their small group to identify strategies to manage inappropriate guilt. Identified a personal example of inappropriate guilt as ?feeling bad for setting boundaries with her kids?. Provided insight that this cues a feeling of ?fear of disappointing others?. Pt wants to work on combatting inappropriate guilt by correcting the distortions and practicing sitting with the uncomfortable. Pt seemed to benefit from learning about strategies to manage appropriate and inappropriate guilt. Pt to continue IOP level of care to promote use of healthy coping skills, challenge distortions, and prevent decompensation.
--- NOTE | 2024-09-13 14:56 | BH.MDN ---
Multi-Disciplinary Note Note 30-min Individual: Time Started:: 12:25 Date: 09/13/24 Purpose of session/treatment goals addressed:: Purpose of session was to address goals 1 and 2 from MTP. Eye Contact:: Good Motor Activity:: Appropriate Appearance:: Casual Speech:: Appropriate Mood:: Euthymic Affect:: Congruent Thoughts:: Linear, Logical and No evidence of hallucinations/delusions noted Staff Interventions:: thought challenging, CBT techniques, mindfulness skills, strengths perspective, goal setting and taught coping skills Client Response:: Client reported she plans today to have a talk with her son about not going to help during his recovery from surgery due to the protection order he has against her. Client reported she recognizes she keeps pushing this composition off and the longer she pushes it off its only go to make it worse because he will have this much time to find care to replace her. Client stated feeling anxious about his situation but knows something that needs to happen. Client stated she is feeling more at peace this week after going to the and calling others for her ex. Client reported she is glad she went because if she did not she did feel guilty and regret. Client stated the grief is becoming more manageable as time goes on. Client stated it was helpful to spend time with his family and just remember the person he was. Client stated she is continuing to make progress with getting things done around her house. Client reported she was able to accomplish getting the other 2 AC units out and stored away, cleaning her windows, and is starting to clean her fridge every . Client stated she is also proud of herself for being able to keep up with the dishes instead of letting them pile up. Client agreed now that she is doing better with getting things done around the house is time for her to start to explore improving her socialization. Client admitted when she isolates she tends to have increased depression and decreased motivation. Client stated she would like to get back to going to AA meetings because she found it to be helpful to be in a supportive community. Client said goal of trying to attend her previous home meeting which is on evenings. Risks/Concerns:: Denies suicidal ideation, plan, and intent. Progress Toward Goals/Plan:: Progress note with client reporting decreased grief after taking time to allow herself to be around a supportive group of people that also knew her ex. Progress also noted with client continuing to show consistency with getting tasks and chores done around the house. Client has been avoiding talking to her son because she is anxious about his response. Plan is for client to start focusing on increasing her socialization now that she starting to do better with daily functioning inside the home. Client to continue IOP to maintain gains, challenge distortions, decrease anxious avoidance, and prevent decompensation. Time Stopped:: 13:00
--- NOTE | 2024-09-16 09:00 | BH.SGPN.GN ---
Behaviors/Daisy ?Pt alert and oriented, casually dressed and groomed. Eye contact good. Motor activity appropriate. Speech within normal limits. Affect congruent, mood euthymic. Thoughts linear, logical, no signs of hallucinations or delusions. Reviewed pt?s symptom tracker, no risk for suicidal ideation, plan, or intent 09/16/24 Client Response/Progress/Benefit: [] Pt was an active participant in group discussions. Attentive. Able to identify mental health wins including spending several hours visiting with her granddaughter, as well as following through with more goals and completing various tasks around the home. Noted work is her current stressor as she is disappointed she will be working the next few holidays. Did note plans to begin looking into finding a job with more flexibility to ensure her self-care needs take priority. Benefited from group support, encouragement, and feedback. Will continue in IOP to prevent decompensation, maintain mood stability, and increase consistent application of skills. Narrative Note: []
--- NOTE | 2024-09-16 10:13 | BH.SGPN.GN ---
Behaviors/Verbalizations/Mental Status: [] Eye contact is fair to good. Motor activity is appropriate. Appearance is casual. Speech within normal limits. Mood is euthymic. Affect is congruent. Thoughts are linear and logical. No evidence of psychosis. Client Response/Progress/Benefit: [] Client was an active participant in group discussion and experiential activity. Attentive during psychoeducation on resilience. Participated in interactive discussion with peers on the definition of resilience and where it comes from. Group identified that resiliency can be impacted by; past experiences, upbringing, and current mental health state. Group also worked together to identify the benefits of being resilient and how it is related to mental health. Able to relate experiential activity of group juggle to topics of resilience. Worked well with peers in small group in which they identified factors that contribute to resilience. Benefited from increased awareness of resilience and the factors that contribute to building resilience. Will continue in IOP to prevent decompensation and increase overall functioning Narrative Note: []
--- NOTE | 2024-09-16 11:13 | BH.SGPN.GN ---
Behaviors/Verbalizations/Mental Status: [] Client alert and oriented, neatly dressed and groomed. Eye contact good. Motor activity appropriate. Speech within normal limits. Affect congruent, mood euthymic. Thoughts linear, logical, no signs of hallucinations or delusions Client Response/Progress/Benefit: [] Client responded well to session AEB completing the resilience worksheet provided. Client actively participated in the discussion and worked cooperatively with group to identify strategies to enhance each of the components discussed. Client reports belief they already use resilience trait of ? accepting change as a part of living.? Client discussed that they could work on taking decisive actions. Client seemed to benefit from discussing strategies for improving personal resilience and identifying resilience traits client already possesses. Will continue IOP tx to challlenge negative thought processes and increase distress tolerance skills. Narrative Note: []
--- NOTE | 2024-09-19 09:05 | BH.SGPN.GN ---
Behaviors/Verbalizations/Mental Status: [] Eye contact is good. Motor activity is appropriate. Appearance is casual. Speech is Appropriate. Mood is euthymic. Affect is full. Thoughts are linear and logical. No evidence of psychosis. Reviewed daily check in sheet and no reports of suicidal ideations. Client Response/Progress/Benefit: [] Pt was an active participant in group discussions. Attentive. States ?all zeros? on her daily symptom tracker noting improved mental health. Increased energy and is completing tasks at home. Remains sober. ? I just feeling better about myself?. Progress noted. Benefited from group support, encouragement, and feedback. Will continue in IOP to prevent decompensation, increase healthy coping, and improve functioning. Narrative Note: []
--- NOTE | 2024-09-19 10:15 | BH.SGPN.GN ---
Behaviors/Verbalizations/Mental Status: [] Client alert and oriented, casually dressed and groomed. Eye contact good. Motor activity appropriate. Speech within normal limits. Affect congruent, mood euthymic. Thoughts linear, logical, no signs of hallucinations or delusions. Client Response/Progress/Benefit: [] Client was an active participant AEB contributing to discussion, taking notes, and engaging in group activity. Connected with the topic of pitfalls and listened to group discussion on barriers that prevent from choosing a healthier path to mental wellness. Group worked together to identify examples of personal pitfalls. Pt identified personal pitfalls to include: self-sabotage, not giving self credit, scared of setting personal boundaries, and isolation. Client benefited from group as client learned to better identify potential barriers to improving mental health symptoms. Client will continue IOP tx to maintain stability, continue use of healthy coping skills, and prevent decompensation.
--- NOTE | 2024-09-19 11:15 | BH.SGPN.GN ---
Behaviors/Verbalizations/Mental Status: []Client alert and oriented, casually dressed and groomed. Eye contact good. Motor activity appropriate. Speech within normal limits. Affect congruent, mood euthymic. Thoughts linear, logical, no signs of hallucinations or delusions. Client Response/Progress/Benefit: [] Pt receptive of session, engaged throughout AEB Pt actively listening and contributing to discussion as well as taking notes.? Pt participated in the experiential activity and did well to communicate ideas with peers and manage emotions. Pt attentive as group processed how the emotions and perspective of the group impacted the activity. Group worked together to identify different coping skills to help manage pitfalls. Pt identified pitfall they struggle with as self-sabotage. Pt plans to work on their pitfall by practicing more self-reflection to catch and change self-sabotage. Benefited from identifying personal pitfalls and strategies to overcome these pitfalls. Pt will continue IOP tx to promote use of healthy coping skills, improve daily functioning, and reduce negative thinking patterns. Narrative Note: []
--- NOTE | 2024-09-20 09:00 | BH.SGPN.GN ---
Behaviors/Verbalizations/Mental Status: [] Pt alert and oriented, neatly dressed and groomed. Eye contact good. Motor activity appropriate. Speech within normal limits. Affect congruent, mood euthymic. Thoughts linear, logical, no signs of hallucinations or delusions. Reviewed pt?s symptom tracker, no risk for suicidal ideation, plan, or intent 09/20/24 Client Response/Progress/Benefit: []Pt was an active participant in group discussions. Attentive. Able to identify mental health wins including feeling a lot better than I was and recognizing consistent change in her perspective and actions. Pt shared she has been accomplishing tasks at home and she often catches negative thinking patterns. Pt stated she is feeling grateful this morning. Pt reports her stressor today is her ongoing car issues and needing to set a boundary with one of her children. Pt receptive to feedback from peers which pt reported was helpful. Progress noted. Benefited from group support, encouragement, and feedback. Will continue in IOP to promote mood stability and reinforce healthy coping skills. Narrative Note: []
--- NOTE | 2024-09-20 10:15 | BH.SGPN.GN ---
Behaviors/Verbalizations/Mental Status: [] Eye contact is good. Motor activity is appropriate. Appearance is casual. Speech is Appropriate. Mood is euthymic. Affect is congruent. Thoughts are linear and logical. No evidence of psychosis. Client Response/Progress/Benefit: [] Pt was an active participant in group discussions. Attentive during psychoeducation on the 4 communication styles (Passive, Passive-Aggressive, Aggressive, and Assertive) and the obstacles to effective communication. ?Self-identified a barrier they personally struggle with as being vague preventing them from communicating effectively their needs and prevents these from being met. Contributed during interactive discussion on the benefits of communicating effectively which included; having one's needs met, decreases stress and uncertainty, improved relationships, healthier boundaries, and avoids unnecessary conflict. Worked well with peers to identify the benefits and disadvantages to the different communication styles. Benefited from increased understanding of communication styles and how these can impact effective communication. Will continue in outpatient IOP tx to prevent decompensation, maintain mood stability and continue to promote application of healthy coping skills. Narrative Note: []
--- NOTE | 2024-09-20 11:10 | BH.SGPN.GN ---
Behaviors/Verbalizations/Mental Status: []Pt alert and oriented, casually dressed. Eye contact good. Motor activity appropriate. Speech within normal limits. Affect congruent, mood euthymic. Thoughts linear, logical, no signs of hallucinations or delusions. Client Response/Progress/Benefit: [] Pt responded well to session AEB Pt listening attentively to others and providing input during group discussion on the pay offs and costs of the different communication styles. Pt able to connect how current communication style impacts mental health. Connected with peers? comments about importance of using assertive communication. Pt did well with practicing being assertive in the group activity and worked with group to identify potential skills for improving communication skills. Pt stated she will practice being assertive by verbalizing how she feels instead of stuffing. Pt seemed to benefit from increasing awareness of healthy strategies to improve communication. Will continue IOP tx to promote use of healthy coping skills, challenge negative thoughts, and prevent decompensation.
--- NOTE | 2024-09-20 14:29 | BH.MDN ---
Multi-Disciplinary Note Note 30-min Individual: Time Started:: 12:30 Date: 09/20/24 Purpose of session/treatment goals addressed:: Purpose of session was to address goals 1 and 2 from MTP. 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 Client stated she has made changes to help maintain the motivation level by decreasing how much she sits in her chair and starting to reorganize her place to make it more healthy for her. Client reported when she does take a nap throughout the week she only will nap in her bed instead of on the couch and now sets a timer across the room which will require her to get up so that she does not just nap all day. Client stated she has been able to start cleaning out her bedroom and is getting ready to move some furniture around. Client reported her next goal inside her house is to pick one of her flores, reorganize the furniture in her living room, and clean up any clutter in the waiting room. Client stated she has also been doing slightly better with trying to cook more meals at home instead of just eating microwave meals. Client stated she can note mental benefit to cooking her meals versus eating frozen foods every day. Client reported she is still feeling anxious because she has to have another conversation with her son about not being able to come help when her son is recovering from surgery due to her son having a protection order against client. Client reports she attempted to address this issue last week but her son reported he went in saying he thinks the police and that it would be fine. Client stated although she would like to believe that her son when report her to the police she knows it is illegal and anybody could report her which could lead to a felony charge. Client reported she is going to have another conversation by the end of this week with her son letting him know that she will not be coming out only because the protection order because she cannot miss 10 days of work due to an unexpected bill. Client stated she recognizes she does struggle with being assertive and often tries to people please especially with her children. Client reported she knows she has said this boundary because she has worked too hard to risk potential legal charges. Client and therapist are discuss tentative discharge plan. Client stated although she is starting to feel closer to improve daily functioning she is anxious about not being able to maintain the gains she has made. Client stated she did also like to focus on in her remaining time in IOP of increasing her socialization because that is going to be of new big missing part when she ends IOP. Therapist inquired if client followed through with going to the local [facility] that has a ages 50 and older gym that she could join and many free events for individuals that are over 50 years old. Client reported she did forget to go to that but agreed to check out the [employer] in the next week. Client reports she also did not go to an AA meeting last week because she ended up watching her granddaughter but agreed she will attend any AA meeting within the next week. Risks/Concerns:: Client denies suicidal ideation, plan, and intention. Future oriented. Progress Toward Goals/Plan:: Progress noted with patient reporting improved daily functioning with ability to move around and cleaning her house more consistently, decreased napping, and improved outlook on life. Client still is missing socialization component but does have plans in the next week to get herself out there to widen her social network. Client has been stressed about how to address and manage her son's needs but also recognizing that her son has a protection order against her and client does not want to get into legal trouble. Plan is for client to continue IOP with tentative discharge in 2 weeks. Client to continue IOP to maintain gains, improve assertive communication, challenge distortions, and prevent decompensation. Time Stopped:: 13:00
== END 2024-09-22 23:59 ==
LOC: BHIOP 08:05
PROVIDERS: PCP Family Medicine; Referring Provider Psychiatry & Neurology Psychiatry; Visit Provider Psychiatry & Neurology Psychiatry
DX: F33.1 Major depressive disorder, recurrent, moderate (principal); F43.10 Post-traumatic stress disorder, unspecified; F41.1 Generalized anxiety disorder; F12.90 Cannabis use, unspecified, uncomplicated; F10.90 Alcohol use, unspecified, uncomplicated; F14.91 Cocaine use, unspecified, in remission; F11.91 Opioid use, unspecified, in remission; Z79.899 Other long term (current) drug therapy
CPT/HCPCS: S9480; 90832; 90834; 90853

== ENCOUNTER 2024-09-23 07:58 | Outpatient (RCR) | payer MEDICARE, MEDICAID, SELFPAY ==
[2024-09-23 00:25] VITALS: BP 113/68; PULSE 90
--- NOTE | 2024-09-23 09:05 | BH.SGPN.GN ---
Behaviors/Verbalizations/Mental Status: [] Eye contact is good. Motor activity is appropriate. Appearance is casual. Speech is Appropriate. Mood is depressed.. Affect is congruent. Thoughts are linear and logical. No evidence of psychosis. Reviewed daily check in sheet and no reports of suicidal ideations or intent. Client Response/Progress/Benefit: [] Pt was an active participant in group discussions. Attentive. Reports feeling benjamin today however overall can identify increased energy, motivation, and social engagement. Spent time with her granddaughter recently which was a blast. Primary stressor linked with family discord in which she has decided to set a boundary. Apprehensive that she can set and maintain the boundary. Progress noted. Benefited from group support, encouragement, and feedback. Will continue in IOP to prevent decompensation, increase healthy coping, and improve functioning. Narrative Note: []
--- NOTE | 2024-09-23 10:16 | BH.SGPN.GN ---
Behaviors/Verbalizations/Mental Status: [] Eye contact is good. Motor activity is appropriate. Appearance is casual. Speech is Appropriate. Mood is content. Affect is congruent. Thoughts are linear and logical. No evidence of psychosis. Client Response/Progress/Benefit: [] Pt participated at times during group discussion. Engaged in group activity and attentive during psychoeducation. Along with peers, pt was able to identify barriers to taking action in their life. Identified several symptoms and stressors that pt feels are holding them back from progress such as prioritizing others, guilt about her past, and self-doubt. Stated these things have kept pt from taking chances on trying new things foor herself. Benefited from increased self-awareness of obstacles. Will continue IOP tx to prevent decompensation, further stabilize mood, and increase consistency of healthy coping. Narrative Note: []
--- NOTE | 2024-09-23 11:10 | BH.SGPN.GN ---
Behaviors/Verbalizations/Mental Status: []Pt alert and oriented, casually dressed and groomed. Eye contact good. Motor activity appropriate. Speech within normal limits. Affect congruent, mood anxious. Thoughts linear, logical, no signs of hallucinations or delusions. Client Response/Progress/Benefit: [] Pt responded well to session, taking notes and participating in worksheet discussion. Pt connected with the discussion on motion vs action steps, and this helped pt learn how to set goals differently. Pt set a goal to reduce people pleasing. Pt identified motion steps including practicing conversations in the mirror, first responding with let me check my calendar before immediately saying yes, and texting back the person to set a boundary. Pt stated what will help her get to in action she will remind herself that she is important and her feelings matter.. Appeared to benefit from identifying a small goal to benefit mental health. Pt is to continue IOP tx to reinforce healthy coping skills, improve boundary setting, and prevent decompensation.
--- NOTE | 2024-09-26 09:00 | BH.SGPN.GN ---
Behaviors/Verbalizations/Mental Status: [] Eye contact is good. Motor activity is appropriate. Appearance is casual. Speech is Appropriate. Mood is euthymic. Affect is full. Thoughts are linear and logical. No evidence of psychosis. Reviewed daily check in sheet and no reports of suicidal ideations or intent. Client Response/Progress/Benefit: [] Pt was an active participant in group discussions. Attentive. Reports continues progress stating that she is less depressed and staying off the couch. Maintaining sobriety and completing tasks rather than avoiding them. Shared with group a discussion that she has been avoiding and was seeking feedback. Benefited from group support, encouragement, and feedback. Will continue in IOP to maintain gains. Narrative Note: []
--- NOTE | 2024-09-26 10:15 | BH.SGPN.GN ---
Behaviors/Verbalizations/Mental Status: [] Eye contact is good. Motor activity is appropriate. Appearance is casual. Speech is Appropriate. Mood is content. Affect is congruent. Thoughts are linear and logical. No evidence of psychosis. Client Response/Progress/Benefit: [] Pt receptive to session AEB contributing to group discussion, as well as listening attentively to others, and taking notes. Worked with group to brainstorm the definition of stress, the positive and negative aspects of stress on physical and mental health as well as the impact of stress on performance, relationships, and mental health. Pt shared their top stressors to be: discord with daughter, guilt regarding her past, and work. Shared when feeling overwhelmed with stress pt tends to explode, isolate, and oversleep. . Benefited from increased awareness of positive and negative stress as well as how stress impact individuals. Will continue in IOP to promote use of healthy coping skills, improve mood stability, and prevent decompensation. Narrative Note: []
--- NOTE | 2024-09-26 11:15 | BH.SGPN.GN ---
Behaviors/Verbalizations/Mental Status: []Pt alert and oriented, casually dressed and groomed. Eye contact good. Motor activity appropriate. Speech within normal limits. Affect congruent, mood anxious and euthymic. Thoughts linear, logical, no signs of hallucinations or delusions. Client Response/Progress/Benefit: [] Pt was an attentive and active participant in group discussions and experiential activity, doing well to regulate their emotions throughout the activity and work with peers. Attentive during psychoeducation on the 4 A's (Avoid, adapt, alter, accept) of coping with stress. Shared that they would benefit most from altering her automatic response to stressors (shut down) to being more of a problem-solver. Was able to identify the connection between the experiential activity and utilization of stress management skills. Benefited from increased awareness of stress management strategies. Pt will continue IOP tx to promote gains, reinforce healthy coping skills, and reduce negative thinking patterns. ? Narrative Note: []
--- NOTE | 2024-09-27 09:00 | BH.SGPN.GN ---
Behaviors/Verbalizations/Mental Status: [] Pt alert and oriented, neatly dressed and groomed. Eye contact good. Motor activity appropriate. Speech within normal limits. Affect congruent, mood euthymic and tired. Thoughts linear, logical, no signs of hallucinations or delusions. Reviewed pt?s symptom tracker, no risk for suicidal ideation, plan, or intent 09/27/24 Client Response/Progress/Benefit: []Pt was an active participant in group discussions. Attentive. Able to identify mental health wins including maintaining mood stability, practicing gratitude, and continuing to use opposite action. Pt's stressor today is that her child did not answer the phone yesterday, so now pt has to wait to set a boundary until they call back and pt has been avoiding the boundary. Pt stated she is feeling tired this morning as pt has not had a day off in months. Pt receptive to feedback from peers which pt reported was helpful. Progress noted. Benefited from group support, encouragement, and feedback. Will continue in IOP to promote mood stability, increase distress tolerance skills, and establish aftercare. Narrative Note: []
--- NOTE | 2024-09-27 10:15 | BH.SGPN.GN ---
Behaviors/Verbalizations/Mental Status: [] Eye contact is good. Motor activity is appropriate. Appearance is casual. Speech is Appropriate. Mood is anxious. Affect is congruent. Thoughts are linear and logical. No evidence of psychosis. Client Response/Progress/Benefit: [] Pt was an active participant during interactive group discussions. Along with peers contributed to interactive discussion on defining what a boundary is in mental health. Pt along with peers identified challenges to setting boundaries which included; people pleasing, fear of rejection, fear of loss, fear people won't respect the boundary, etc. Pt along with peers identified the benefits to setting boundaries such as reduces assumptions, can reduce stress, improve communication/relationships, and can keep us safe. Attentive during psychoeducation on types of boundaries (rigid, porous, flexible). Pt benefited from increased awareness and insight on the importance/benefit to setting health boundaries. Will continue in IOP to increase consistent use of healthy coping skills, promote use of opposite action, and prevent decompensation.
--- NOTE | 2024-09-27 11:20 | BH.SGPN.GN ---
Behaviors/Verbalizations/Mental Status: []Eye contact is good. Motor activity is appropriate. Appearance is casual. Speech is Appropriate. Mood is content. Affect is congruent. Thoughts are linear and logical. No evidence of psychosis. Client Response/Progress/Benefit: []Pt responded well to session AEB listening attentively to peers and taking notes throughout. Reports connecting with rigid boundaries, especially with her material and emotional boundaries. Participated in group discussion brainstorming various strategies for improving healthy boundary setting. Pt reports wanting to improve her ability to begin trusting others in small ways. Seemed to benefit from increased awareness of how different boundary styles can impact mental health. Will continue IOP tx to prevent decompensation, improve daily functioning, and maintain mood stability. Narrative Note: []
--- NOTE | 2024-09-30 10:10 | BH.SGPN.GN ---
Behaviors/Verbalizations/Mental Status: [] Eye contact is good. Motor activity is appropriate. Appearance is casual. Speech is Appropriate. Mood is depressed. Affect is constricted. Thoughts are linear and logical. No evidence of psychosis Client Response/Progress/Benefit: [] Pt was an active participant in group discussions. Attentive during psychoeducation. Contributed during interactive discussions in which peers attempted to define crisis. Group identified crisis examples. Group also worked together to identify warning signs and unhealthy responses to crisis which included shutting down, isolation, avoidance, over-thinking, disordered eating, and self-harm. Benefited from increased understanding of crisis and awareness of personal responses to crisis. Pt will continue IOP tx to prevent decompensation, increase healthy coping, and improve functioning. Narrative Note: []
--- NOTE | 2024-09-30 11:12 | BH.SGPN.GN ---
Behaviors/Verbalizations/Mental Status: []Pt alert and oriented, appropriate grooming/appearance. Eye contact good. Motor activity appropriate. Speech within normal limits. Affect congruent, mood euthymic. Thoughts linear, logical, no signs of hallucinations or delusions. Client Response/Progress/Benefit: []Pt was an active participant in group discussions. Attentive during psychoeducation. In small group pt along with peers developed an active plan for their crisis warning signs. Pt identified three crisis warning signs as well as an action plan for each. One crisis warning sign was avoiding tasks. Pt identified strategies to help with this such as: making a to-do list, limiting TV time to evenings, accomplish 1-2 small goals before watch any tv, and tracking her accomplishments. ?Benefited from increased awareness of crisis warning signs and by developing crisis intervention strategies. Will continue in IOP to continue use of healthy coping skills, build confidence, and prevent decompensation.
--- NOTE | 2024-09-30 14:10 | BH.MDN ---
Multi-Disciplinary Note Note 45-min Individual: Time Started:: 09:20 Date: 09/30/24 Purpose of session/treatment goals addressed:: Purpose of session was to address goals 1 and 2 from MTP. Eye Contact:: Fair Motor Activity:: Restless Appearance:: Casual Speech:: Appropriate Mood:: Depressed Affect:: Congruent Thoughts:: Racing Staff Interventions:: thought challenging, CBT techniques, strengths perspective and goal setting Client Response:: Client reported she's struggling a lot today because she told her son yesterday that she cannot go to his house to help with his surgery recovery. Client stated her son responded by telling client to ?go kill yourself. Client tearful when processing and talking about her son's response to her not being able to go help him post op. Client stated her son not able to understand that she cannot risk potential felony charge by breaking the protection order that her son placed against her a year and a half ago. Client reported although she recognizes and understands that putting herself in risk of legal trouble is not OK she's still having a hard time coming to terms with the fact that she cannot be there for her son. Client processed feelings connected with her sons negative comments towards client after she set the boundary. Client stated she thinks she's at a place in her life that she's ready to set firm boundaries with her son and no longer allow him to treat her poorly. Client stated this is not the first time he has told her to go kill herself and she realizes it likely will not be the last if she keeps letting him treat her like this. Client stated she no longer wants to communicate with him until he either revokes the protection order or the protection order expires. Client worker therapist to reflect back on all the progress she's made in the program and reminding herself why this boundary with her son is so important for her continued mental health recovery. Client stated she has not followed through with goals of attending an AA meeting and did not follow through [facility]. Client stated she plans to attend an AA meeting next week. Client reported she's happy to be an IOP during this time because she knows she needs the support so that she can maintain the boundary with her son. Risks/Concerns:: Client denies suicidal ideation, plan, or intention to date. Future oriented. Progress Toward Goals/Plan:: Progress noted with client setting and maintaining boundary with her son about not going to go to his house to help with post-op recovery since he still has a protection order against client. Client struggling with increased sadness and anxiety associated with this boundary. Despite significant stressor she reports still getting tasks completed at home and is not reverting back to old unhealthy coping skills. Client stated her son's surgery is next week and she is worried about how she will be able to cope with this. Client and therapist discussed extending client's IOP time for one additional week so she can have continued support during this difficult time. Plan is for client to continue IOP to reinforce healthy coping skills, maintain boundaries, and prevent decompensation. Time Stopped:: 09:50
--- NOTE | 2024-10-03 09:00 | BH.SGPN.GN ---
Behaviors/Verbalizations/Mental Status: [] Eye contact is good. Motor activity is appropriate. Appearance is casual. Speech is Appropriate. Mood is depressed. Affect is flat. Thoughts are linear and logical. No evidence of psychosis. Reviewed daily check in sheet and no reports of suicidal ideations or intent. Client Response/Progress/Benefit: [] Pt participated when prompted. Daily symptom tracker notes 3/5 for depression and 2/5 for anxiety/irritability. Distracted and disengaged from group. Recently set boundary with family member and she is struggling with her decision. Family member responded to boundary with anger which exacerbated her guilt for setting boundary. She understands the reasons for boundary setting and appears determined to maintain the boundary, however is struggling. Regression. Benefited from group support, encouragement, and feedback. Narrative Note: []
--- NOTE | 2024-10-03 10:15 | BH.SGPN.GN ---
Behaviors/Verbalizations/Mental Status: []Client alert and oriented, casually dressed and groomed. Eye contact good. Motor activity appropriate. Speech within normal limits. Affect congruent, mood depressed. Thoughts linear, logical, no signs of hallucinations or delusions. Client Response/Progress/Benefit: [] Pt responded well to session AEB actively participating throughout group. Pt was attentive throughout group activity discussing famous individuals and how they overcame failure to be successful. Pt helped group identify how fear of failure can impact mental health and relationships. Pt personally identified it leads to pt to isolate, give up, and self-sabotage. Participated in experiential activity, working with group members to problem solve. Appeared to benefit from increased knowledge of what causes fear of failure and how it impacts people. Will continue IOP tx to prevent decompensation, promote mood stability, and challenge use of thought distortions reinforcing inappropriate guilt. Narrative Note: []
--- NOTE | 2024-10-03 11:15 | BH.SGPN.GN ---
Behaviors/Verbalizations/Mental Status: []Pt alert and oriented, neatly dressed and groomed. Eye contact good. Motor activity appropriate. Speech within normal limits. Affect congruent, mood euthymic and sad. Thoughts linear, logical, no signs of hallucinations or delusions. Client Response/Progress/Benefit: [] Pt responded well to session, engaged in the experiential activity and attentive throughout group processing. Pt reported fear of failure has kept Pt from loving herself and finding a better job. Pt completed fear of failure worksheet and was able to identify thoughts and behaviors that reinforce personal fear of failure including feeling not good enough, low self-esteem, and feeling unworthy. Pt participated in small group discussion regarding strategies to overcome fear of failure. Identified wanting to work on getting more fresh air and using positive self-talk. ?Appeared to benefit from increased knowledge of strategies to combat fear of failure and gaining self-awareness. Pt will continue IOP tx to prevent decompensation, reinforce healthy coping skills, and reduce negative self-talk. Narrative Note: []
--- NOTE | 2024-10-05 09:05 | BH.SGPN.GN ---
Behaviors/Verbalizations/Mental Status: [] Pt alert and oriented, casually dressed and groomed. Eye contact good. Motor activity appropriate. Speech within normal limits. Affect congruent, mood depressed. Thoughts linear, logical, no signs of hallucinations or delusions. Reviewed pt?s symptom tracker, no risk for suicidal ideation, plan, or intent 10/05/24 Client Response/Progress/Benefit: [] Pt was an active participant in group discussions. Attentive. Able to identify mental health wins including making it to group and work despite recent worsening of sx. Pt reports her major stressor is not being able to see her son for thanksgiving and his lack of understanding in pt's need to maintain the boundary. Did well to identify the reasons she is maintaining her distance and review costs of not keeping the boundary. Benefited from group support, encouragement, and feedback. Will continue in IOP to prevent decompensation, promote mood stability, and continue to improve use of healthy coping skills. Narrative Note: []
--- NOTE | 2024-10-05 10:15 | BH.SGPN.GN ---
Behaviors/Verbalizations/Mental Status: []Eye contact is good. Motor activity is appropriate. Appearance is casual. Speech is Appropriate. Mood is anxious. Affect is congruent. Thoughts are linear and logical. No evidence of psychosis. Client Response/Progress/Benefit: [] Pt was engaged and participating throughout, providing input and taking notes. Participated in an interactive discussion on defining anxiety and identifying cognitive and physiological symptoms of anxiety. The group discussed the role of anxiety on isolation, avoidance, and who this emotion impacts their ability to start and complete activities/goals. Pt identified their physical/physiological signs of anxiety (i.e. tightened muscles, headaches, and heavy breathing). Pt identified safety behaviors (i,e avoidance and not setting boundaries.) Benefited from increased awareness and insight on anxiety and its impact. Will continue in IOP to reinforce healthy coping skills, combat negative self-talk, and improve daily functioning. Narrative Note: []
--- NOTE | 2024-10-05 11:10 | BH.SGPN.GN ---
Behaviors/Verbalizations/Mental Status: [] Pt alert and oriented, casually dressed and groomed. Eye contact good. Motor activity appropriate. Speech within normal limits. Affect congruent, mood euthymic. Thoughts linear, logical, no signs of hallucinations or delusions. Client Response/Progress/Benefit: [] Pt was an active participant AEB pt providing input and listening attentively to peers. Attentive during psychoeducation on mindfulness coping skills and their impact on reducing anxiety and improving overall mental health wellness. Group was able to identify self-soothing and mind-based coping skills which included: 5-senses, meditation, deep breathing, TIPP, thought challenging, and progressive muscle relaxation. Pt also participated with peers in practicing mindfulness skills in session including deep breathing. Pt would like to work on using baking, breathing skills, and music to manage anxiety. Appeared to benefit from increasing repertoire of anxiety reduction skills. Pt will continue in [facility] tx to promote use of healthy coping skills, focus on what's within control, and prevent decopmensation.
--- NOTE | 2024-10-05 11:52 | PCM.BH.PN ---
Progress Note Progress Note: History of Present Illness/Interim History: The patient is a 59-year-old single, female with a history of depression, anxiety, PTSD, polysubstance abuse (sober for 10 years) and alcohol use disorder (sober x 3 months). She is seen in follow-up at the [facility] where she was last seen 3-1/2 weeks ago. The patient has been consistent in her attendance according to the staff and has been engaged in the program. The patient states that she is very stressed still by her biological son becoming a trans woman with him scheduled to have top surgery next week. The patient is very frustrated that she is unable to be with her child when they have the surgery as her child has a restraining order out against the patient so she is unable to be there for the surgery. Her mood remains somewhat down because of this ongoing stressor she thinks. She does feel a little more stable overall and so far she has not been triggered as easily lately and she remains sober from all drugs and alcohol. She feels she is learning valuable skills in the program. She denies passive thoughts of , suicidal ideation, plan for suicide, homicidal ideation, hallucinations or delusions. Current Psychiatric Medications: [] Suboxone p.o. twice daily; BuSpar 10 mg p.o. twice daily (increased 3 weeks ago); Lexapro 10 mg p.o. daily (restarted 7 weeks ago). Mental Status Examination: [] The patient is a 59-year-old female who is seen wearing glasses and appears normal for stated age and is casually dressed and groomed with good hygiene. She is ambulatory with a normal gait and has no psychomotor agitation or retardation. She is cooperative during the interview. Eye contact is good and speech is normal rate and rhythm and fluent with no pressure. Mood is depressed. Affect is constricted. Thought process is goal-directed and organized. Thought content: The patient is frustrated and sad that she is unable to be with her trans daughter when they get their top surgery next week. There is no evidence of passive thoughts of , suicidal ideation, plan for suicide, homicidal ideation, hallucinations or delusions. Reality testing is intact. Intelligence is average. Judgment is intact. Insight is fair. Impulsivity is high. Diagnoses: [] 1. Major depressive disorder, recurrent, moderate 2. PTSD 3. Generalized anxiety disorder 4. Marijuana and alcohol use disorder (sober x 3 months) 5. History of methamphetamine, cocaine and opiate use disorder (sober for over 10 years on medication) 6. Primary support and work issues Plan: [] The patient will continue the IOP in behavioral health as the structure, support, education and group therapy will hopefully prevent worsening of the patient's symptoms. She felt safe during the interview and if it anytime she does not feel safe she agrees to let us know or go to the emergency room. The risk, options, possible complications and side effects of the medications were again discussed with the patient and she understands and accepts these. She agrees to increase her Lexapro to 20 mg p.o. daily and prescription is sent in for this. She will continue to follow-up with his outpatient providers and I will see the patient in follow-up in 2 weeks.
--- NOTE | 2024-10-06 10:10 | BH.SGPN.GN ---
Behaviors/Verbalizations/Mental Status: [] Eye contact is good. Motor activity is appropriate. Appearance is casual. Speech is Appropriate. Mood is dysthymic. Affect is congruent. Thoughts are linear and logical. No evidence of psychosis. Client Response/Progress/Benefit: [] Pt did well to participate in activity and was engaged and attentive during psychoeducation and interactive discussion on coping skills, why people use unhealthy coping skills, how to replace unhealthy coping skills, and internal vs external coping skills. Attentive as peers came up with list of negative coping skills including not asking for help, avoidance, isolating, sleeping, shopping, substance use, and several others. Pt stated she has used isolation and sleep as an unhealthy coping skill. Recognizes this makes things worse. Stated she has been working on challenging herself to use opposite action. Group discussed the effects of how maladaptive coping skills can impact mental health in a negative way. Benefited from increased understanding of unhealthy coping skills and the need for developing healthy internal and external coping skills. Will continue in IOP to promote healthy coping skills, improve mood stability, and prevent decompensation. Narrative Note: []
--- NOTE | 2024-10-06 11:10 | BH.SGPN.GN ---
Behaviors/Verbalizations/Mental Status: []Pt alert and oriented, casually dressed and groomed. Eye contact good. Motor activity appropriate. Speech within normal limits. Affect congruent, mood depressed and anxious. Thoughts linear, logical, no signs of hallucinations or delusions. Client Response/Progress/Benefit: [] Pt responded well to session, taking notes and contributing when prompted. Group discussed the different categories of coping skills which included distraction, emotional release, grounding, self-love, and thought challenging. Pt participated in creating a coping skills ?menu? from the different categories of coping skills. Pt's coping skill menu included: getting fresh air, thoughts are thoughts not facts, making a to-done list, and setting boundaries. Appeared to benefit from increasing repertoire of healthy coping skills. Will continue IOP tx to promote mood stability, increase distress tolerance, and improve self-compassion. Narrative Note: []
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
--- NOTE | 2024-10-07 10:15 | BH.SGPN.GN ---
Behaviors/Verbalizations/Mental Status: [] Eye contact is good. Motor activity is appropriate. Appearance is casual. Speech is Appropriate. Mood is depressed. Affect is constricted. Thoughts are linear and logical. No evidence of psychosis. Client Response/Progress/Benefit: [] Pt was an active participant during group discussions and group activities. This portion of group was very psychoeducation heavy and pt was attentive during psychoeducation. Engaged during activity in which they identified which type of foods (i.e. carbs, sugar, salt, fast food, caffeine, etc) they seek out when sad, tired, angry, stressed, anxious, etc. Pt was able to identify the impact that certain foods have on their mental health through group example which was beneficial. Benefited from increased awareness of the connection between nutrition and mental health. Will continue in IOP to prevent decompensation, stabilize anxiety, and improve healthy coping strategies. Narrative Note: []
--- NOTE | 2024-10-07 11:15 | BH.SGPN.GN ---
Behaviors/Verbalizations/Mental Status: [] Client alert and oriented, casually dressed and groomed. Eye contact good. Motor activity appropriate. Speech within normal limits. Affect congruent, mood content. Thoughts linear, logical, no signs of hallucinations or delusions. Client Response/Progress/Benefit: []Client was an active participant throughout AEB contributing to group discussion and taking notes. Client provided input during small group discussion on strategies to combat each factor maintaining adverse nutritional cycles. Worked with group to identify ways to foster more mindful nutritional choices. Each group participant identified one small step they could take today to begin establishing mental wellness promoting nutritional choices. Client shared plans to?begin freezing leftovers to have healthier options down the road.?Appeared to benefit from gaining insight into mental wellness centered nutrition and identifying personal steps client can take to support own nutritional psychology. Recommended continued IOP tx to prevent decomensation, promote mood stability, and improve overall functioning.? Narrative Note: []
--- NOTE | 2024-10-11 10:15 | BH.SGPN.GN ---
Behaviors/Verbalizations/Mental Status: [] Eye contact is fair. Reports being tired. Motor activity is appropriate. Appearance is casual. Speech is Appropriate. Mood is depressed. Affect is congruent. Thoughts are linear and logical. No evidence of psychosis Client Response/Progress/Benefit: [] Pt engaged in session AEB listening attentively to others and providing input throughout. Pt engaged in activity, able to connect how it can be uncomfortable and difficult to accept when things are out of one?s own control. Worked with peer group to identify things in life which are hard to accept which included; loss, medical diagnoses, change, lack of control, failure, and needing help. Seemed to benefit from increased awareness of the meaning as well as the importance of acceptance. Will continue in IOP to prevent decompensation, stabilize mood, and increase healthy coping.
--- NOTE | 2024-10-11 11:10 | BH.SGPN.GN ---
Behaviors/Verbalizations/Mental Status: []Pt alert and oriented, casually dressed and groomed. Eye contact good. Motor activity appropriate. Speech within normal limits. Affect congruent, mood euthymic and sad. Thoughts linear, logical, no signs of hallucinations or delusions. Client Response/Progress/Benefit: [] Pt responded well to session AEB taking notes and contributing to discussion throughout. Pt engaged as group continued discussion on acceptance and the mental health benefits of practicing acceptance. Pt and peers identified what makes acceptance challenging and pt completed a self-reflection exercise on what is hard to accept in pt's life. Pt identified what is hard to accept is not being able to spend time with her granddaughter without being monitored. Client stated by not accepting the situation it eats away at me and recognizes can cause resentment. Group identified strategies to increase acceptance. Pt appeared to benefit from gaining insight and learning strategies to increase acceptance. Pt will continue IOP tx to maintain gains, continue use of healthy coping skills, and prevent decompensation.
--- NOTE | 2024-10-13 09:00 | BH.SGPN.GN ---
Behaviors/Verbalizations/Mental Status: [] ?Pt alert and oriented, casually dressed and groomed. Eye contact good. Motor activity appropriate. Speech within normal limits. Affect congruent, mood content. Thoughts linear, logical, no signs of hallucinations or delusions. Reviewed pt?s symptom tracker, no SI, denies plan, or intent as of 10/13/24 Client Response/Progress/Benefit: [] Pt was an active participant in group discussions. Attentive. Able to identify mental health wins including challenging herself to continue practicing sitting with the uncomfortable and radical acceptance regarding her relationship with her youngest child. Reports doing so has allowed her to advocate for her own needs and maintain healthier boundaries. Additional win noted as not letting the snow stop her from getting to group today, despite having to walk here. Provided perspective that she is grateful for the ability to physically be able to walk places. Stressor noted as tomorrow being her last day. Shared feeling anxious but knows she is ready to discharge. Benefited from group support, encouragement, and feedback. Will continue in IOP to prevent decompensation and maintain mood stability. Narrative Note: []
--- NOTE | 2024-10-13 10:00 | BH.SGPN.GN ---
Behaviors/Verbalizations/Mental Status: []Eye contact is good. Motor activity is appropriate. Appearance is casual. Speech is Appropriate. Mood is euthymic. Affect is congruent. Thoughts are linear and logical. No evidence of psychosis. Client Response/Progress/Benefit: [] Pt was an active participate AEB listening attentively to others, participating in group discussions, and taking notes throughout. Participated as the group defined emotion dysregulation and identified ways we can hurt others or sabotage self by not regulating our emotions. Participated with peers to identified ways emotions impact communication which included; shutting down, being irritable/short with others, difficulty focusing/staying on topic, confusion, missing out on opportunities, and being aggressive or dismissive to others. Participated during group activity. Pt did well during the activity and shared having to manage anxiety. Pt benefited from session by gaining an increased understanding on the importance of managing emotions to improve daily functioning. Will continue IOP tx to promote mood stability, increase distress tolerance, and reinforce healthy coping skills. Narrative Note: []
--- NOTE | 2024-10-13 11:05 | BH.SGPN.GN ---
Behaviors/Verbalizations/Mental Status: []Pt alert and oriented, casually dressed and appropriately groomed. Eye contact good. Motor activity appropriate. Speech within normal limits. Affect congruent, mood euthymic. Thoughts linear, logical, no signs of hallucinations or delusions. Client Response/Progress/Benefit: [] Pt engaged in session AEB Pt listening attentively to peers and providing input. Attentive during psychoeducation on 4 zones of regulation. Pt able to identify feelings and behaviors for each zone. Pt identified coping skills one can use to support self in each zone. Pt reported feeling in the green zone today because she feels stable. Pt stated coping skills pt wants to practice in each zone include: goal setting, positive self-talk, and opposite action. Pt shared she plans to ?keep up with my routine and tasks? to help pt stay in the green zone. Benefited from increased education on zones of regulation or stages of alertness for emotions and healthy coping skills to use for each zone. Will continue IOP tx to promote mood stability and reinforce healthy coping skills. Narrative Note: []
--- NOTE | 2024-10-14 10:15 | BH.SGPN.GN ---
Behaviors/Verbalizations/Mental Status: []Pt alert and oriented, casually dressed and groomed. Eye contact good. Motor activity appropriate. Speech within normal limits. Affect congruent, mood content. Thoughts linear, logical, no signs of hallucinations or delusions. Client Response/Progress/Benefit: [] Pt took notes and contributed to group discussions. Attentive during psychoeducation on growth mindset. Participated during the activity. Interactive group discussion on growth mindset in which group verbalized their current fixed mindsets and how they affect their mental health. Pt shared common fixed mindset thoughts they have. These thoughts lead to feeling and staying stuck, not maintaining boundaries, and self-criticism. Pt stated they have personally struggled with fixed thoughts causing them to people please out of guilt. Pt benefited from increased awareness of growth mindset and fixed thoughts and how fixed thoughts impact their mental health. Will continue IOP tx to prevent decompensation, improve daily functioning, and promote mood stability. Narrative Note: []
--- NOTE | 2024-10-14 11:10 | BH.SGPN.GN ---
Behaviors/Verbalizations/Mental Status: []Pt alert and oriented, neatly dressed and groomed. Eye contact good. Motor activity appropriate. Speech within normal limits. Affect congruent, mood anxious and euthymic. Thoughts linear, logical, no signs of hallucinations or delusions. Client Response/Progress/Benefit: []Pt was an active participant during activity and discussion. Pt did well to remain attentive and participate as group worked on identifying characteristics and benefits of adopting a growth mindset. Worked with fellow participants in reframing the example fixed thoughts into growth mindset thoughts. Pt worked on changing own fixed thought and reframed the thought to ?I deserve all the good things that bring me happiness.? Pt also wants to work on using dialectical thinking. Pt appeared to benefit from challenging own thoughts and engaging in the activity. Pt will discharge from IOP as she has accomplished her tx goals and no longer meets criteria for IOP level of care. Narrative Note: []
--- NOTE | 2024-10-14 13:14 | BH.DS_ITS ---
Discharge Summary Demographics Date of Admission:: 08/15/24 Discharge Date: 10/14/24 Presenting Problems at Admission:: The patient is a 59-year-old, single, female with a history of depression, anxiety, PTSD, polysubstance abuse (sober x 10 years) and alcohol use disorder (sober x 1 month) who was referred to the [facility] by her counselor due to worsening depression and trauma memories impacting function for the past few years. The patient states that she never dealt with her abuse and now she has trouble being motivated to leave the house, shower and function. She gained 40 pounds this past year because she is unable to leave the house or cook for herself. Her mood has been low and has been getting worse each year. She naps during the day for 3 to 4 hours at a time and only sleeps about 4 hours at night. She has racing thoughts of past traumas and never has a calm mind. She denies suicidal ideation, plan for suicide, homicidal ideation, hallucinations, delusions or symptoms of j luis. She has had suicidal ideation in the past and has had multiple attempts by choking and pills especially when she was using meth years ago. Discharge Diagnoses:: 1. Major depressive disorder, recurrent, moderate F33.1 2. PTSD 3. Generalized anxiety disorder 4. Marijuana and alcohol use disorder (sober x 3 months) 5. History of methamphetamine, cocaine and opiate use disorder (sober for over 10 years on medication) 6. Primary support and work issues Reason for Discharge:: Pt has made significant treatment progress on her goals and no longer meets medical necessity for [facility] level of care. Treatment Progress During Treatment & Response: Per DSM 5 cross-cutting scale at discharge client has decreased depression by 88%, anxiety decreased by 73%, anger decreased by 75%, and an overall decrease in mental health symptoms by 75%. Client reported before coming to [facility] she either was laying on her couch watching TV all day or taking naps. Client stated she had dishes that had been sitting in her sink for months because she couldn't motivate herself to get tasks and chores done around the house. Client reported she was isolating from all supports and felt like she was just existing. Client stated since being an [facility] she's learned healthy coping skills on how to manage her depression and anxiety which has helped her improve daily functioning. Client stated she has been able to keep up with her java software developer on a consistent basis. Client reported she was able to attend an AA meeting last week which was the first time in several years. Client has reported starting to cook meals at home again. Client responded well to IOP AEB consistent treatment attendance, active participant in group, and follow through on goals outside treatment environment. Issues Still to be Addressed:: Client could benefit from continued work on maintaining boundaries, especially with those that treat her poorly. Client could also benefit from reinforcement of healthy coping skills, building confidence, increasing socialization, and challenging distorted thoughts. Discharge Recommendations/Instructions:: Client will continue outpatient therapy at [facility] with weekly individual sessions on Tuesdays. Client has established with [facility] for medication management and will have her first appointment in October. Discharge Handout
--- NOTE | 2024-10-14 14:13 | BH.MDN ---
Multi-Disciplinary Note Note 30-min Individual: Time Started:: 09:15 Date: 10/14/24 Purpose of session/treatment goals addressed:: Purpose of session was to identify treatment progress, complete maintenance plan, and review aftercare plans. Eye Contact:: Good Motor Activity:: Appropriate Appearance:: Casual Speech:: Appropriate Mood:: Euthymic Affect:: Full Thoughts:: Linear, Logical and No evidence of hallucinations/delusions noted Staff Interventions:: CBT techniques, discharge planning, strengths perspective and reviewed DSM-5 Client Response:: Client reported feeling bittersweet about today being her last day in [facility]. Client stated she's made so much more progress than she ever imagined. Client reported before coming to [facility] she either was laying on her couch watching TV all day or taking naps. Client stated she had dishes that had been sitting in her sink for months because she couldn't motivate herself to get task and chores done around the house. Client reported she was isolating from all supports and felt like she was just existing. Client stated since being an [facility] she's learned healthy coping skills on how to manage her depression and anxiety which has helped her improve daily functioning. Client stated she has been able to keep up with her biofuels engineering manager on a consistent basis. Client reported she was able to attend an AA meeting last week which was the first time in several years. Client reported she followed through and set a firm boundary with her son although it was difficult she realizes it was what she needed for her own mental health and Wellness recovery. Client worked with therapist to complete maintenance plan in which she identified triggers, warning signs, self-care activities, and healthy coping skills. Client is established with individual counselor through and has recently established with [facility] for medication follow up. Risks/Concerns:: Denies suicidal ideation, plan, or intention to date. Future oriented. Progress Toward Goals/Plan:: Per DSM 5 cross-cutting scale at discharge client has decreased depression by 88%, anxiety decreased by 73%, anger decreased by 75%, and an overall decrease in mental health symptoms by 75%. As discussed above client reports improvement with daily functioning, decreased isolation, improved outlook on life, and starting to increase socialization. Client is established and will follow up with outpatient therapist at [facility]. Client also has recently established with Juliet Sandoavl at [facility] with first appointment scheduled in October. Plan is for client to discharge from [facility] today and follow up with outpatient providers. Time Stopped:: 09:45
== END 2024-10-14 12:15 | disposition home or self-care (01) ==
LOC: BHIOP 07:58
PROVIDERS: PCP Family Medicine; Referring Provider Psychiatry & Neurology Psychiatry; Visit Provider Psychiatry & Neurology Psychiatry
DX: F33.1 Major depressive disorder, recurrent, moderate (principal); F43.10 Post-traumatic stress disorder, unspecified; F41.1 Generalized anxiety disorder; F10.90 Alcohol use, unspecified, uncomplicated; F12.90 Cannabis use, unspecified, uncomplicated
CPT/HCPCS: S9480; 90832; 90834; 90853

== ENCOUNTER 2024-11-10 16:06 | Inpatient (IN) | payer MEDICARE, MEDICAID, SELFPAY ==
[2024-11-10 16:07] VITALS: BP 176/98; PULSE 86; RESP 15; TEMP 36.4; O2SAT 97; BMI 30.1
--- NOTE | 2024-11-10 16:12 | EDS_ITS ---
HPI History of Present Illness Chief Complaint: Substance Abuse [facility] Medical History (Updated 11/10/24 @ 18:31 by Roopa Botello) Substance abuse Depression Kidney stones Hypertension Generalized anxiety disorder PTSD (post-traumatic stress disorder) Major depressive disorder, recurrent severe without psychotic features Wears dentures Wears glasses Post-menopausal Bladder disease Hearing loss, left Hearing loss, right Osteoporosis Smoker Migraines Anxiety Hepatitis Irregular heart beat Drug abuse Alcohol abuse Duodenitis Home Medications ?Medication ?Instructions ?Recorded ?Last Taken ?Type buprenorphine 8 mg-naloxone 2 mg 1 ea sublingual BID 07/13/24 11/10/24 History sublingual film escitalopram oxalate 20 mg tablet 20 mg PO DAILY 30 days #30 tabs 10/05/24 11/10/24 Rx (Lexapro) buspirone 10 mg tablet 10 mg PO BID 30 days #60 tabs 10/19/24 11/10/24 Rx Allergy/AdvReac Type Severity Reaction Status Date / Time No Known Allergies Allergy Verified 11/10/24 16:08 Family History Mother Breast cancer Heart disease Hypertension Diabetes Father Cancer pt is unsure what kind of cancer Heart disease Hypertension Diabetes Sister Breast cancer Sister Ovarian cancer Surgical History S/P vaginal hysterectomy Hx of hand surgery History of cataract surgery History of tubal ligation History of umbilical hernia repair Social History adopted: No household members: none number of children: 6 current occupational status: unemployed pets and animals: Yes pets and animals: cat(s) sexually active: No Smoking Status: Heavy Smoker (>10/day) alcohol intake: former details: pt sober since 2020 caffeine: Yes seatbelt use: always do you feel safe at home: Yes EXAM Physical Exam Const Vital Signs: 11/10/24 16:07 Temperature 97.5 F L Temperature Source Temporal Pulse Rate 86 Respiratory Rate 15 Blood Pressure 176/98 H Blood Pressure Mean 124 Pulse Ox 97 Oxygen Delivery Method Room Air MDM MDM MDM Narrative Medical decision making narrative: HISTORY OF PRESENT ILLNESS: 59-year-old female presents with request for alcohol detoxification. Notes last drink was last night. Notes she drinks 1 bottle of jenny mix with tequila daily. States she does she did stop drinking. Denies any other drug use. Denies any chest pain, abdominal pain, notes nausea in the morning that improves after drinking. Denies any bloody bowel movements. Denies any SI, HI auditory or visual hallucinations. REVIEW OF SYSTEMS: Pertinent positives: Nausea Pertinent negatives: As per HPI PHYSICAL EXAM: Nursing triage notes reviewed, Vital signs reviewed Constitutional: please see mdm HENT: MMM Eyes: Pupils equal round and reactive to light, Extraocular muscles intact Neck: No stridor, no JVD, full neck ROM Lungs: Clear to auscultation, No wheezing or rales. No increased work of breathing, no conversational dyspnea, no accessory muscle use, no nasal flaring. No respiratory distress noted Heart: Regular rate and rhythm, No murmurs, No rubs and No gallops, 2+ distal pulses (radial, femoral, posterior tibial) in all extremities Abdomen: Soft, there is no tenderness, rigidity, rebound or guarding, no obvious peritoneal signs, no palpable pulsatile abdominal masses, no auscultated abdominal bruit : No CVAT Extremities: No edema Neuro: Alert and oriented x 3. No new focal neurological deficits, cranial nerves II through XII intact, 5/5 strength in all present extremities. Intact sensation to light touch in all present extremities, 2+ reflexes bilateral patella tendons. Normal non-ataxic gait. Skin: No rash or lesions noted Psych: Normal affect MEDICAL DECISION MAKING: Chief Complaint: Request for detox External records reviewed: Reviewed prior inpatient note from June 2024 Factors affecting care: History of pancreatitis Social determinants of health: Alcohol abuse, tobacco, polysubstance abuse History obtained from others: none Consults: none [facility] Narrative: Patient was initially hypertensive with blood pressure 170s over 98 otherwise afebrile and nontoxic-appearing. Medical clearance labs were obtained. ALL IMAGES (IF OBTAINED) HAVE BEEN PERSONALLY REVIEWED AND INTERPRETED BY MYSELF. [] Discussed case with hospitalist The patient and/or family, caregivers express understanding. The patient and/or family, caregivers agrees with the plan. Shared decision making: I will have a discussion with the patient and or visitors regarding risk/benefits of further testing or admission. They will be made aware of of the risk/benefits inherent in this decision they will be given the opportunity to voice understanding. Total critical care time today provided was at least 0 [] minutes. This excludes separately billable procedures. Critical care time (if documented) is secondary to the patient having high probability of clinically significant/life threatening deterioration in the patient's condition which required my urgent intervention. Impression: 1. History of alcohol abuse 2. Encounter for admission to inpatient alcohol detoxification 3. Elevated blood pressure Dispo: Admit This note was generated with [employer] dictation software. It may contain incorrect words, spelling, and punctuation that were not noted in review of the chart prior to signing. Discharge Plan Triage Chief Complaint: Substance Abuse ED Provider: Gómez Escamilla Dx/Rx/DC Orders Prescriptions: No Action buprenorphine-naloxone 8-2 mg film 1 ea sublingual BID escitalopram oxalate [Lexapro] 20 mg tablet 20 mg PO DAILY 30 Days Qty: 30 2RF buspirone 10 mg tablet 10 mg PO BID 30 Days Qty: 60 2RF Rx Instructions: 1 po bid Primary Care Provider: Earnest Rodriguez Referrals: Earnest Rodriguez MD [Primary Care Provider] - Print Language: Welsh
[2024-11-10] MEDS: LORazepam 1 MG Tablet 2 MG PO (16:34)
[2024-11-10 16:40] LABS: Absolute Lymphocyte Count 2.31 X10^3/uL (0.83-4.51); Absolute Neutrophil Count 4.7 X10^3/uL (2.0-7.7); Basophil# 0.07 X10^3/uL; Basophil% 0.9 % (0-1); Eosinophil# 0.22 X10^3/uL; Eosinophils% 2.9 % (0-5); Hematocrit 43.8 % (37-47); Hemoglobin 14.5 g/dL (12.0-15.0); Lymphocyte # 2.31 X10^3/ul (0.83-4.51); Lymphocyte % 30.2 % (19-41); Mean Corp Hgb Conc 33.1 g/dL (32-36); Mean Corpuscular Hgb 31.9 pg (27.0-32.0); Mean Corpuscular Volume 96.5 fL (81-99); Mean Platelet Vol. 9.1 fl (6.2-12.0); Monocyte# 0.37 X10^3/uL; Monocyte% 4.8 % (0-10); NRBC Flagged by Analyzer 0 % (0-5); Neutrophil # 4.65 X10^3/uL (2.7-7.7); Neutrophil % 60.9 % (47-70); Platelet Count 337 K/mm3 (150-450); RBC Distribution Width SD 49.7 fl (35.1-43.9); Red Blood Count 4.54 M/mm3 (4.2-5.4); White Blood Count 7.6 K/mm3 (4.4-11.0)
[2024-11-10 16:54] LABS: Anion Gap 5 (5-15); BUN 10 mg/dL (7-18); BUN/Creat Ratio 18.1 RATIO (10-20); Calcium,Total 8.9 mg/dL (8.5-10.1); Chloride 108 mmol/L (98-107); Creatinine, Serum 0.55 mg/dL (0.55-1.02); EST Glomerular Filtration Rate 119 mL/min (>60); Est Glom Filt Rate - Afr Amer 144 mL/min (>60); Estimated Creatinine Clearance 108.29 ml/min; Glucose 108 mg/dL (74-106); Potassium 3.8 mmol/L (3.5-5.1); Sodium Level 140 mmol/L (136-145)
[2024-11-10 17:06] VITALS: BP 128/84; PULSE 91; RESP 18; O2SAT 99
[2024-11-10 17:20] LABS: Amphetamine Urine VISTA NEGATIVE (<1000 ng/mL); Barbiturate Urine VISTA NEGATIVE (< 200 ng/mL); Benzodiazepine Urine VISTA NEGATIVE (< 200 ng/mL); Cocaine Urine VISTA NEGATIVE (< 300 ng/mL); Ecstacy Urine VISTA NEGATIVE (< 500 ng/mL); Methadone Urine VISTA NEGATIVE (< 300 ng/mL); PCP Urine VISTA NEGATIVE (< 25 ng/mL); THC Urine VISTA NEGATIVE (< 50 ng/mL); Vista UDS pH Range 7
[2024-11-10 17:38] VITALS: BP 128/84; PULSE 91; RESP 18; TEMP 36.7; O2SAT 99
--- NOTE | 2024-11-10 17:39 | PCM.HP.STD ---
HPI - General General Date of Admission: 11/10/24 Date of Service: 11/10/24 Chief Complaint: ETOH detox HPI Narrative KAMI WATTS, is a 59 F with history of alcohol, tobacco, and substance use who presented [facility] ED 11/10/2024 for alcohol detox. She is struggled with alcohol use intermittently and for the past 1 and half weeks she has been drinking least one of the large bottles of jenny mix with her last drink last night, when she wakes up she has craving, nausea, anxiety and is shaky and has withdrawal symptoms. She has been unable to stop on her own and is requesting detox. She did have a little bit of a sore throat cough, shortness of breath, congestion over the past couple weeks and has been treated conservatively. Has also had a little bit of intermittent nausea but ROS otherwise negative [facility] Medical History (Updated 08/17/24 @ 14:21 by Mary Alice Escobar) Alcohol abuse Anxiety Bladder disease Drug abuse Duodenitis Generalized anxiety disorder Hearing loss, left Hearing loss, right Hepatitis Irregular heart beat Major depressive disorder, recurrent severe without psychotic features Migraines Osteoporosis Post-menopausal PTSD (post-traumatic stress disorder) Smoker Wears dentures Wears glasses Home Medications ?Medication ?Instructions ?Recorded ?Last Taken ?Type buprenorphine 8 mg-naloxone 2 mg 1 ea sublingual BID 07/13/24 11/10/24 History sublingual film escitalopram oxalate 20 mg tablet 20 mg PO DAILY 30 days #30 tabs 10/05/24 11/10/24 Rx (Lexapro) buspirone 10 mg tablet 10 mg PO BID 30 days #60 tabs 10/19/24 11/10/24 Rx Allergy/AdvReac Type Severity Reaction Status Date / Time No Known Allergies Allergy Verified 11/10/24 16:08 Family History Mother Breast cancer Heart disease Hypertension Diabetes Father Cancer pt is unsure what kind of cancer Heart disease Hypertension Diabetes Sister Breast cancer Sister Ovarian cancer Surgical History History of cataract surgery History of tubal ligation History of umbilical hernia repair Hx of hand surgery S/P vaginal hysterectomy Social History adopted: No household members: none number of children: 6 current occupational status: unemployed pets and animals: Yes pets and animals: cat(s) sexually active: No Smoking Status: Heavy Smoker (>10/day) alcohol intake: former details: pt sober since 2020 caffeine: Yes seatbelt use: always do you feel safe at home: Yes ROS ROS Narrative General: Denies fever/chills HENT: Denies headache, has had a little sore throat nasal congestion EYES: Some chronic worsening in vision Resp: Had been having little bit of cough and shortness of breath, nothing worsening today or new Cardiac: Denies chest pain GI: Denies abdominal pain, denies changes in bowel, intermittently low but nauseous : Denies changes in urination Extremity: Denies swelling MSK: Denies weakness Neuro: Denies any numbness/tingling Heme: Denies any bleeding or bruising Skin: Denies rashes Psychiatric: Does have some anxiety Vital Signs Vital Signs Vital Signs: 11/10/24 16:07 11/10/24 17:06 11/10/24 17:38 Temperature 97.5 F L 98.1 F Temperature Source Temporal Pulse Rate 86 91 91 Respiratory Rate 15 18 18 Blood Pressure 176/98 H 128/84 H 128/84 H Blood Pressure Mean 124 98 98 Pulse Ox 97 99 99 Oxygen Delivery Method Room Air Room Air Weight Weight: 77.111 kg Body Mass Index (BMI) 30.1 Physical Exam Narrative General: Alert, oriented, no apparent distress HEENT: Atraumatic, normocephalic Eyes: Anicteric, normal conjunctiva, extraocular movements grossly intact Neck: Supple Respiratory: Clear to auscultation bilaterally, normal respiratory effort Cardiovascular: Regular rate and rhythm GI: Soft, nontender, nondistended Extremities: No edema Musculoskeletal: Moving all extremities Neuro: No overt focal neurological deficits Skin: No rashes appreciated Psych: Cooperative Results Lab / Micro Data 11/10/24 16:30 11/10/24 16:30 Labs: Laboratory Results - last 24 hr 11/10/24 16:30: WBC 7.6, RBC 4.54, Hgb 14.5, Hct 43.8, MCV 96.5, MCH 31.9, MCHC 33.1, RDW Std Deviation 49.7 H, RDW Coeff of Mamta 14.0, Plt Count 337, MPV 9.1, Immature Gran % (Auto) 0.300, Neut % (Auto) 60.9, Lymph % (Auto) 30.2, [place] % (Auto) 4.8, Eos % (Auto) 2.9, Baso % (Auto) 0.9, Absolute Neuts (auto) 4.7, Absolute Lymphs (auto) 2.31, Nucleated RBC % 0, Sodium 140, Potassium 3.8, Chloride 108 H, Carbon Dioxide 27.0, Anion Gap 5, BUN 10, Creatinine 0.55, Estim Creat Clear Calc 108.29, Est GFR (MDRD) Af Amer 144, Est GFR (MDRD) Non-Af 119, BUN/Creatinine Ratio 18.1, Glucose 108 H, Calcium 8.9, Ethyl Alcohol 89.0 11/10/24 16:44: Urine Opiates Screen NEGATIVE, Urine Methadone Screen NEGATIVE, Ur Barbiturates Screen NEGATIVE, Ur Phencyclidine Scrn NEGATIVE, Ur Amphetamines Screen NEGATIVE, MDMA (Ecstasy) Screen NEGATIVE, U Benzodiazepines Scrn NEGATIVE, Urine Cocaine Screen NEGATIVE, U Cannabinoids Screen NEGATIVE, Ur Drug Screen Comment Assessment & Plan Assessment/Plan (1) Alcohol abuse: PLAN: Plan #Alcohol use disorder - We will begin CIWA every 4 for 24 hours, then every 6 for 24 hours, then every 12 until discharge -Patient has only been drinking again for a week and a half, I do think she needs admitted for monitoring and detox given her withdrawal symptoms however think she can be managed with as needed Ativan for CIWA and hold off on phenobarb taper at this time however if consistently scoring or having severe symptoms can always begin this -Gabapentin 300 mg every 8 as needed -Will start Bentyl and hydroxyzine as needed as well as loperamide as needed -Trazodone 100 mg p.o. nightly as needed sleep -Begin thiamine and folic acid supplementation -Zofran as needed for nausea -Case management consult to assist with discharge planning -EtOH 89 -UDS negative # History of substance use disorder -Chronically on Suboxone, will continue #Depression/anxiety -Continue home medications #Tobacco use -Advise cessation -Nicotine replacement available if desired #DVT ppx: Low risk, ambulatory Kayli Slater MD Charges/Coding Visit Charges Inpatient E&M: 27179 Init Hosp L1
[2024-11-10 18:15] VITALS: BP 110/66; PULSE 60; RESP 16; TEMP 36.8; O2SAT 93; BMI 31.6
[2024-11-10 18:43] LABS: AST(SGOT) 20 U/L (15-37); Alanine Aminotransfer ALT/SGPT 20 U/L (13-56); Albumin, Serum 3.8 g/dL (3.2-5.0); Alkaline Phosphatase 122 U/L (45-117); Bilirubin, Direct 0.13 mg/dL (0.00-0.30); Globulin 3.2 g/dL (2.2-4.2)
[2024-11-10 20:44] VITALS: BP 128/82; PULSE 62; RESP 16; TEMP 36.9; O2SAT 93
[2024-11-10 20:50] LABS: International Normalized Ratio 1.1
[2024-11-10] MEDS: 0.9% Saline Lock 10 ML Syringe IV (20:57)
[2024-11-10] MEDS: hydrOXYzine PAM 25 MG Capsule 50 MG PO (20:58)
[2024-11-10] MEDS: busPIRone 5 MG Tablet 10 MG PO (20:58)
[2024-11-10] MEDS: Ondansetron 8 MG Tablet PO (20:58)
[2024-11-10] MEDS: Buprenorphine HCl 2 MG TAB.SUBL 1 MG SL (21:35)
[2024-11-11 02:20] VITALS: BP 121/78; PULSE 65; RESP 18; TEMP 36.8; O2SAT 93
[2024-11-11 06:26] VITALS: BP 125/81; PULSE 68; RESP 18; TEMP 36.7; O2SAT 92
[2024-11-11] MEDS: Folic Acid 1 MG Tablet PO (07:30)
[2024-11-11] MEDS: Thiamine Hydrochloride 100 MG Tablet PO (07:30)
[2024-11-11] MEDS: Buprenorphine HCl 2 MG TAB.SUBL 1 MG SL ×2 (07:30→20:41)
[2024-11-11 07:35] VITALS: BP 150/86; PULSE 60; RESP 16; TEMP 36.7; O2SAT 93
--- NOTE | 2024-11-11 07:45 | PN.HOSP_ITS ---
Reason for Visit Reason for Visit: EtOH Detox Subjective Subjective Patient is a 59-year-old white female who presented to the emergency department at [facility] on 11/10/2020 for requesting detox from alcohol. Patient reported that she has struggled intermittently with alcohol use for the past 1-1/2 weeks and has been drinking at least 1 large bottle of jenny mix a day with her last drink being the night before presentation. She stated that she has cravings before she wakes up and nausea and anxiety as well as shakiness with withdrawal symptoms. Patient reported she had been unable to stop on her own and presented requesting detox. She does have several admissions for alcohol detox and her last 1 was in June 2024. Vital signs on presentation showed temperature 97.5, heart rate 86, respiratory rate 15, blood pressure initially was 176/98 with a repeat at 128/84, pulse ox was 97% on room air. CBC was overtly unremarkable. Coags were normal. Chemistry panel was overall unremarkable. She was admitted to the medical floor and placed on with CIWA protocol, thiamine folate and supportive medications for withdrawal symptoms. Given that she only been drinking for a week again it was not felt that she would need full detox with phenobarbital. Most recent CIWA is 1 and was positive only for patient feeling somewhat shaky. Patient denies any significant symptoms at this time. She states that a friend brought over some Jell-O and she did not realize it was laced with alcohol and after that she had a taste for it and went on a binge drinking excavated. Objective Data Objective Data Vital Signs: Vital Signs Temp Pulse Resp BP Pulse Ox O2 Del Method 98.0 F 60 16 150/86 H 93 Room Air 11/11/24 07:35 11/11/24 07:35 11/11/24 07:35 11/11/24 07:35 11/11/24 07:35 11/11/24 07:35 Oxygen Delivery Method Room Air Weight: 80.921 kg Body Mass Index (BMI) 31.6 Intake & Output: Intake and Output for Last 24 Hours 11/09/24 11/10/24 11/11/24 23:59 23:59 23:59 Intake Total 400 / 400 400 / 400 Balance 400 / 400 400 / 400 Lab / Micro Data 11/10/24 16:30 11/10/24 16:30 Labs: Laboratory Results - last 24 hr 11/10/24 16:30: WBC 7.6, RBC 4.54, Hgb 14.5, Hct 43.8, MCV 96.5, MCH 31.9, MCHC 33.1, RDW Std Deviation 49.7 H, RDW Coeff of Mamta 14.0, Plt Count 337, MPV 9.1, Immature Gran % (Auto) 0.300, Neut % (Auto) 60.9, Lymph % (Auto) 30.2, [place] % (Auto) 4.8, Eos % (Auto) 2.9, Baso % (Auto) 0.9, Absolute Neuts (auto) 4.7, Absolute Lymphs (auto) 2.31, Nucleated RBC % 0, Sodium 140, Potassium 3.8, C hloride 108 H, Carbon Dioxide 27.0, Anion Gap 5, BUN 10, Creatinine 0.55, Estim Creat Clear Calc 108.29, Est GFR (MDRD) Af Amer 144, Est GFR (MDRD) Non-Af 119, BUN/Creatinine Ratio 18.1, Glucose 108 H, Calcium 8.9, Total Bilirubin 0.40, Direct Bilirubin 0.13, AST 20, ALT 20, Alkaline Phosphatase 122 H, Total Protein 7.0, Albumin 3.8, Globulin 3.2, Ethyl Alcohol 89.0 11/10/24 16:44: Urine Opiates Screen NEGATIVE, Urine Methadone Screen NEGATIVE, Ur Barbiturates Screen NEGATIVE, Ur Phencyclidine Scrn NEGATIVE, Ur Amphetamines Screen NEGATIVE, MDMA (Ecstasy) Screen NEGATIVE, U Benzodiazepines Scrn NEGATIVE, Urine Cocaine Screen NEGATIVE, U Cannabinoids Screen NEGATIVE, Ur Drug Screen Comment 11/10/24 20:25: PT 14.0, INR 1.1 Physical Exam Const alert, oriented x3, no apparent distress and well nourished; Negative for average body habitus Constitutional Narrative: Obese, middle-aged, white female, sitting up in a chair at the bedside, watching television, appears a bit older than stated age, appears comfortable, nontoxic, no tremor HEENT head/scalp atraumatic and moist oral mucous membranes Head and Scalp: normocephalic Resp normal respiratory effort, no retractions, no use of accessory muscles and clear to auscultation bilaterally Resp Narrative: Diminished but clear Auscultation: Negative for rales, rhonchi or wheezes Cardio regular rate, regular rhythm, S1 normal heart sound, S2 normal heart sound, no murmurs, no rub and no clicks GI normal to inspection, nondistended, normoactive bowel sounds, soft to palpation and non-tender Extremity no clubbing, cyanosis or edema Neuro oriented x3 and moves all extremities Speech: speech normal Psych affect normal Psych Narrative: Very pleasant, interacts appropriately, mildly anxious Assessment & Plan Assessment/Plan (1) Alcohol abuse with physiological dependence: (2) Tobacco use: PLAN: Plan Alcohol use disorder with pending withdrawal -Continue CIWA with as needed Ativan -Thiamine and folate -Supportive medication for withdrawal symptoms -180 consultation -Will continue to monitor CIWA and if starts to trend up will add phenobarbital if not and she continues to do well could be considered for potential discharge in the next 24 to 48 hours History of polysubstance use disorder -Continue chronic Suboxone Depression/anxiety -Continue home BuSpar -Continue home Lexapro Tobacco abuse -Recommend cessation -Continue nicotine replacement therapy DVT prophylaxis -Overall low risk -Encourage frequent early ambulation CODE STATUS -Full code Charges/Coding Visit Charges Inpatient E&M: 34864 Subs Hosp L2
[2024-11-11] MEDS: Escitalopram Oxalate 20 MG Tablet PO (10:15)
[2024-11-11] MEDS: busPIRone 5 MG Tablet 10 MG PO ×2 (10:15→20:42)
[2024-11-11 11:55] VITALS: BP 142/91; PULSE 59; RESP 16; TEMP 36.7; O2SAT 95
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
[2024-11-11 18:00] VITALS: BP 119/82; PULSE 71; RESP 16; TEMP 36.7; O2SAT 94
[2024-11-11 21:12] VITALS: BP 143/91; PULSE 68; RESP 16; TEMP 37.1; O2SAT 96
[2024-11-12 04:21] VITALS: BP 123/89; PULSE 58; RESP 16; TEMP 36.8; O2SAT 97
--- NOTE | 2024-11-12 10:00 | PCM.DC.SUM ---
Providers Date of Admission: 11/10/24 Date of Discharge: 11/12/24 Primary Care Physician: Dr. Earnest Rodriguez MD Reason For Visit: ALCOHOL DETOX Diagnosis Discharge Diagnosis (1) Alcohol abuse with physiological dependence: Status: Acute Code(s): F10.20 - Alcohol dependence, uncomplicated (2) Tobacco use: Status: Acute Code(s): Z72.0 - Tobacco use Medications at Discharge Home Medications buprenorphine 8 mg-naloxone 2 mg sublingual film 1 ea sublingual BID 07/13/24 escitalopram oxalate 20 mg tablet (Lexapro) 20 mg PO DAILY 30 days #30 tabs 10/05/24 buspirone 10 mg tablet 10 mg PO BID 30 days #60 tabs 10/19/24 Hospital Course Operations None Procedures None Summary of Care Provided Minutes Spent on Discharge: 20 Hospital Course: Mrs. Villarreal is a 59-year-old white female who presented to the emergency department at [facility] on 11/10/2020 for requesting detox from alcohol. Patient reported that she has struggled intermittently with alcohol use for the past 1-1/2 weeks and has been drinking at least 1 large bottle of jenny mix a day with her last drink being the night before presentation. She stated that she has cravings before she wakes up and nausea and anxiety as well as shakiness with withdrawal symptoms. Patient reported she had been unable to stop on her own and presented requesting detox. She does have several admissions for alcohol detox and her last 1 was in June 2024. Vital signs on presentation showed temperature 97.5, heart rate 86, respiratory rate 15, blood pressure initially was 176/98 with a repeat at 128/84, pulse ox was 97% on room air. CBC was overtly unremarkable. Coags were normal. Chemistry panel was overall unremarkable. She was admitted to the medical floor and placed on with CIWA protocol, thiamine folate and supportive medications for withdrawal symptoms. Given that she only been drinking for a week again it was not felt that she would need full detox with phenobarbital. She was admitted and monitored closely with CIWA and as needed Ativan. Max CIWA was 1 for shakiness. She never did require any as needed medications. She did report she started drinking again because of friend brought over some orange Jell-O which is her favorite and she did not realize it was laced with alcohol. After that she said she had a taste for it and went on a binge drinking escapade. By the a.m. of 11/12/2024 which was 48 hours at least since her last drink she was still not having any significant symptoms so was felt she could be discharged home in stable condition. She was seen by 180 during her hospitalization and outpatient follow-up information was given to the patient. She is familiar with this as she has been here before for detox. Patient was discharged home in stable condition on 11/12/2024. Discharge diagnoses: Alcohol use disorder with pending withdrawal-resolved History of polysubstance use disorder Depression Anxiety Tobacco abuse Obesity Physical Exam Const alert, oriented x3, no apparent distress, no limitations and well nourished; Negative for average body habitus Constitutional Narrative: Obese, middle-aged, white female, lying in bed resting, appears a bit older than stated age, appears comfortable, nontoxic, no tremor General Appearance: cooperative, comfortable, well kempt and well developed HEENT normocephalic, head/scalp atraumatic and moist oral mucous membranes Resp normal respiratory effort, no retractions, no use of accessory muscles and clear to auscultation bilaterally Resp Narrative: Diminished but clear Auscultation: Negative for rales, rhonchi or wheezes Cardio regular rate, regular rhythm, S1 normal heart sound, S2 normal heart sound, no murmurs, no rub, no gallops and no clicks GI normal to inspection, nondistended, normoactive bowel sounds, soft to palpation and non-tender Extremity no clubbing, cyanosis or edema Neuro moves all extremities and no focal motor deficits Speech: speech normal Psych affect normal Psych Narrative: Very pleasant, interacts appropriately, calm today Weight / BMI Weight Weight: 80.921 kg Body Mass Index (BMI) 31.6 ABG / Lab / Microbiology Data 11/10/24 16:30 11/10/24 16:30 D/C Instructions Discharge Diet: No restrictions Discharge Activity: Return to Normal Activity Return to work on: 11/13/24 DC O2, CPAP, BIPAP Needs Home O2 Discharge instructions: No Meaningful Use Info Meaningful Use Meaningful Use Diagnoses (Choose all that apply): None applicable Ischemic Stroke Statin Dosing Therapy Reference: STATIN DOSE THERAPY REFERENCE: * Patients > 75 years receive moderate or high dose statin therapy. * Patients 75 years or YOUNGER should receive HIGH intensity statin dose unless contraindicated. You will be required to document reason for non-treatment if statin daily dose does not meet guidelines. HIGH DOSE STATIN THERAPY DAILY Atorvastatin > than or = to 40 mg Rosuvastatin > than or = to 20 mg Amlodipine + Atorvastatin > than or = to 2.5/40 mg Ezetimibe + Simvastatin 10/80 mg Simvastatin 80mg Discharge Plan Admission Admit Date/Time: 11/10/24 17:39 Primary Reason for Your Visit: EtOH detox Attending Provider: Krystyna Trujillo Primary Care Provider: Earnest Rodriguez Consulting Providers: Kayli Slater Instructions Additional Instructions / Restrictions: 1. Please utilize the resources that were given to you by 180 to maintain sobriety Discharge Orders/Prescriptions Prescriptions: Continued buprenorphine-naloxone 8-2 mg film 1 ea sublingual BID escitalopram oxalate [Lexapro] 20 mg tablet 20 mg PO DAILY 30 Days Qty: 30 2RF buspirone 10 mg tablet 10 mg PO BID 30 Days Qty: 60 2RF Rx Instructions: 1 po bid Referrals / Follow Up: Earnest Rodriguez MD [Primary Care Provider] - Within 1 Week Disposition Disposition (needs filled in before D/C Order can be placed): Home, Self Care
[2024-11-12] MEDS: Thiamine Hydrochloride 100 MG Tablet PO (10:15)
[2024-11-12] MEDS: Folic Acid 1 MG Tablet PO (10:15)
[2024-11-12] MEDS: busPIRone 5 MG Tablet 10 MG PO (10:15)
[2024-11-12] MEDS: Escitalopram Oxalate 20 MG Tablet PO (10:16)
[2024-11-12] MEDS: Buprenorphine HCl 2 MG TAB.SUBL 1 MG SL (10:37)
[2024-11-12 10:39] VITALS: BP 134/89; PULSE 65; RESP 16; TEMP 36.1; O2SAT 97
[2024-11-12 11:12] VITALS: BP 134/89; PULSE 65; RESP 16; TEMP 36.1; O2SAT 97
== END 2024-11-12 11:36 | disposition home or self-care (01) | DRG 897 ==
LOC: ED 17:07 → MS3 17:46
PROVIDERS: Admitting Provider Internal Medicine; Emergency Provider Emergency Medicine; PCP Family Medicine; Visit Provider Internal Medicine
DX: F10.239 Alcohol dependence with withdrawal, unspecified (principal); E66.9 Obesity, unspecified; F17.210 Nicotine dependence, cigarettes, uncomplicated; F43.10 Post-traumatic stress disorder, unspecified; Z90.710 Acquired absence of both cervix and uterus; F41.1 Generalized anxiety disorder; R03.0 Elevated blood-pressure reading, without diagnosis of hypertension; Z79.899 Other long term (current) drug therapy; Z68.31 Body mass index [BMI] 31.0-31.9, adult; H91.93 Unspecified hearing loss, bilateral; Z80.3 Family history of malignant neoplasm of breast
CPT/HCPCS: 36415; 80048; 80076; 80307; 82077; 85025; 85610; 99283; A4216

== ENCOUNTER 2024-12-02 08:00 | Outpatient (RCR) | payer MEDICARE, MEDICAID, SELFPAY ==
--- NOTE | 2024-12-02 08:50 | BH.NA ---
Physical Data Vital Signs Pulse Rate: 66 Blood Pressure: 170/90 Height/Weight Height: 1.6 m Weight:: 79.379 kg Weight in Pounds: 175.0 lbs Current Medication Compliance Medication Compliance Do you take your medication as prescribed?: Yes Nutritional History Appetite Nutritional Instructions: Describe your appetite:: Good Functional Assessment Sleep Pattern Describe any problems with sleeping: Client states she sleeps about 4 hours per night of interrupted sleep. Sensory/Communication Assess Vision Problems Do you have any vision problems?: Glasses Communication Problems Do you have difficulty understanding what people are saying?: No Medical Problems/History Cardiac Conditions Cardiovascular: Other (See comments) (history of a murmur since she was a teenager) Genitourinary Conditions Genitourinary: Other (See comments) (hx kidney stones) Gastrointestinal Conditions Gastrointestinal: Other (See comments) (history of pancreatitis) Musculoskeletal Conditions Musculoskeletal: Other (See comments) (degenerative spinal changes) Pain Assessment Do you have acute or chronic pain?: Yes (chronic back pain) Family History Family History Mother Breast cancer Heart disease Hypertension Diabetes Father Cancer pt is unsure what kind of cancer Heart disease Hypertension Diabetes Sister Breast cancer Sister Ovarian cancer Surgical History Surgical History Have you had any surgeries? If so, list type and date:: Yes (prolapsed bladder, colon repair, partial hyster) Substance Abuse Substance Abuse Please describe substance abuse in the last 30 days:: Client had been sober for over 2 years before a relapse in June 2024, and had been sober again from alcohol until 3 days ago when she had jello that she did not know had vodka in it. Client smokes about 1 ppd of cigarettes and has been smoking since age 9. Client has a history of meth, heroin and cocaine use which she has been sober from for about 10 years and is currently on Suboxone. Client states she had used opiates as well and hermosillo been sober from them for about 6 years. Client does occasionally use marijuana. Client drinks 1-2 cups of coffee per day. Mental Status Summary Mental Status Significant Findings/Observations on Appearance and Mood:: Client is alert and oriented x 4. Client is casually groomed with good hygiene. Client is cooperative with assessment. Client makes good eye contact. Client's voice has normal rate and volume. Client has appropriate affect. Client makes logical associations and has normal processing. Client denies delusions/hallucinations. Client denies active SI, but does admit to passive thoughts of (It would be okay if I didn't wake up) a couple of times per week. Suicide Assessment Suicidal Ideation Are you currently or have you been suicidal in the past?: Yes Suicidal Intentional Rating Scale (SIRS): Suicidal thoughts (past) Physician Notification Past Psychiatric History MH Treatment Hx Past Psychiatric Medications:: Mack, does not remember the names of others Age of first mental health symptoms: Client states she has felt depressed and anxious since childhood, but took first mental health medications around age 38. Describe (age, circumstance, etc) any past hospitalizations: x 3 in the for SI and did have one suicide attempt by hanging Current providers for mental health treatment (counselor, psychiatrist, pillowcase maker, etc.): Corrie at [facility] for counseling Fall Risk Assessment Age Age: Less than 60 Mental Status Mental Status: Willing & able to ask for assistance when needed Physical Status Physical Status: No problems Impairments Impairments: None Elimination Elimination: Continent AND independent Gait or Balance Gait or Balance: Walks independently Hx of Falls History of falls in the past 6 months: No known history Medications/Substances Psychotropics:: Antidepressants Medications/substances used within the past 24 hours or ordered to administer: 1-2 of the medications/substances listed above Total Score Total Points:: 1 RN Summary of Impressions Impressions Recommendations Impressions: Psychiatric Issues: Generalized anxiety disorder, Major depressive disorder, recurrent, severe without psychosis, PTSD, history of alcohol use disorder, history of meth amphetamine, cocaine and opiate use disorder (sober 10 years) Impression: General Medical Conditions: Client's BP was 170/90, had previously been 113/68 in July 2024 when she was in [facility]. Client states she does have chronic back pain off and on and her back is very painful today. Discussed with client this nurse will check her BP again another day that she is at [facility] if possible. Level of Care How do the client's current symptoms and functional deficits support need for this level of care?: Client was in IOP July-September 2024 and has returned at this time after a relapse of alcohol and feeling depressed. Client states she had jello that she did not know had vodka in it and is now having alcohol cravings. Client had had a relapse with alcohol use in June 2024 and had gone through detox to be clean again. Client states she has started having depression symptoms and has been having some passive thoughts of and wanted to come back to IOP before her mental health got worse. IOP will promote gains and prevent further decompensation while providing social support and skills training.
[2024-12-02 10:15] VITALS: BP 170/90; PULSE 66
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
--- NOTE | 2024-12-05 05:37 | PCM.BH.PSYEV ---
Psychiatric Evaluation Initial Evaluation Initial Evaluation: Chief Complaint: Cravings History of Present Illness: [] Sharri Villarreal is a 59 year old female who presents today for new patient evaluation as her second time participating in the [facility] IOP.. Patient completed IOP back in September after having some issues with his youngest son and was having some worsening SI around that time. Does have a protection order against him at this time. Patient reports that she has started drinking again in recent past as a coping mechanism and feels as though she has been having some worsening cravings for alcohol. Somewhat recently completed the rant program including alcohol detox or the hospital and has not drank in approximately 72 hours. Had previously been drinking up to 1-2 bottles of Korey Jeffry jenny mix nightly. Has a longstanding history of alcohol use and has been on and off with Alcoholics Anonymous and does continue to go intermittently. States that she has been drinking alcohol since a young age but things have worsened over the last decade or so. Does not endorse mood symptoms including her mood being all over the board. Elaborates that she has both significant depression and anxiety and has had some symptoms of both since a young age. Does endorse a recent situation in which a friend's/ex-boyfriend's daughter recently gave her Jell-O which was made with alcohol and attempt to get patient to relapse so that she would stop spending time with her father. Patient also endorses a substance use history as per below. Endorses a significant trauma history including below. He is currently taking 60 mg of Suboxone daily from 180. Current Psychiatric Medications: Lexapro 20 mg every day, Buspar 10 mg twice a day Past Psychiatric History: Previous psychiatric treatment history: Yes (admits to being admitted in [place] in the 90s for depression) Previous psychiatric diagnoses: depression, PTSD, alcohol use disorder, EDER Previous psychiatric treatment programs: residential treatment ([facility] in 2020), intensive outpatient prog ([facility]) and other (IOP at [facility] 3 years ago ) Family Psychiatric History: Father - depression Substance Use History: Nicotine- admits to smoking 1 ppd Alcohol- see above Marijuana- denies any current marijuana use Stimulants- admits to history of methamphetamine, largely smoking, last use about 11 years ago Opioids- x4 months of heroin use about 10 year ago with pill use Other- denies Allergies: None known Medications: Lexapro and Buspar as above Past Medical History: She had prolapsed bladder repair and colon repair in the past but does not know when. She had a cat bite was hospitalized for this in the past. She has arthritis and a degenerative spinal changes. Otherwise negative history. Personal/Social History: Siblings - youngest of 8 Born/Raised - [place], [place] then [place] then moved to [place] Education - dropped out of 8th grade, has G.E.D. Living Situation - lives with 2 cats Legal Issues - denies Employment - Works at [employer] doing [employer] Legal History: Arrested many times for drug use, drug possession, probation violation, felony theft and felony forgery. S Review of Systems: Constitutional Denies: fever(s), chills, change in weight or fatigue Eyes Denies: change in vision or blurry vision Ears, Nose, Mouth, Throat Denies: throat pain, neck pain or change in hearing Cardiovascular Denies: chest pain, palpitations or dyspnea Respiratory Denies: dyspnea, cough or wheezing Gastrointestinal Denies: abdominal pain, nausea, vomiting, diarrhea or constipation Genitourinary Denies: dysuria or urinary frequency Musculoskeletal Reports: back pain (chronic); Denies: neck pain, joint pain or muscle weakness Integumentary/Breast Denies: rash or new lesions Neurological Denies: headache(s), dizziness or confusion Endocrine Denies: fatigue or excessive sweating Hematologic/Lymphatic Denies: easy bruising or easy bleeding Allergic/Immunologic Denies: wheezing Vital Signs: [] Vital signs reviewed in the nurses notes and updated and the patient is deemed medically able to participate in the IOP. Mental Status Examination: Appearance casually dressed and appears older than stated age Attitude cooperative Activity/Motor Behavior MSE activity/motor behavior finding no adventitious movements Speech regular rate, regular volume and regular prosody Mood depressed and anxious Affect congruent Thought Process linear, logical and coherent Thought Content no delusions and no hallucinations Suicidal Ideation none Homicidal Ideation none Attention intact Concentration intact Sensorium/Orientation awake, alert and oriented x3 Memory/Cognition other (appropriate for stated age) Insight fair Judgement good Diagnoses: 1. Major depressive disorder, recurrent, severe without psychosis 2. PTSD 3. Generalized anxiety disorder 4. Alcohol Use Disorder 5. 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 Primary support and work issues. Plan: - The patient will start the IOP through behavioral health at [facility] as a structure, support, education and group therapy will hopefully prevent worsening the patient's symptoms specifically depression and anxiety and substance relapse which may lead to hospitalization. Patient is medically able to participate in this level of care at this time as she is not demonstrating any red flags symptoms of withdrawal and has not drank in a long enough period of time that I do not have significant concern for significant withdrawal symptoms. Patient felt safe during the interview and is agreeable to inform staff if she needs to present to the emergency room. She will continue her medications of Lexapro and BuSpar and Suboxone as previous and we will add 0.1 mg twice daily of Abilify. Risk benefits and possible side effects of medications were discussed and patient is agreeable to continue as prescribed. Continue to follow up with outpatient providers as scheduled. Physical Exam Const alert, oriented x3, no apparent distress and no limitations General Appearance: cooperative and comfortable HEENT normocephalic, head/scalp atraumatic and moist oral mucous membranes Resp normal respiratory effort, no retractions and no use of accessory muscles Resp Narrative: Diminished but clear Auscultation: Negative for rales, rhonchi or wheezes Cardio regular rate, regular rhythm, S1 normal heart sound, S2 normal heart sound, no murmurs, no rub, no gallops and no clicks GI normal to inspection, nondistended, normoactive bowel sounds, soft to palpation and non-tender Extremity no clubbing, cyanosis or edema Neuro moves all extremities and no focal motor deficits Speech: speech normal
--- NOTE | 2024-12-05 05:46 | PCM.BH.PSYEV ---
Psychiatric Evaluation Initial Evaluation Initial Evaluation: Initial Treatment Plan Patient Information Visit Information: ADMISSION DATE: 12/02/2024 EXPECTED LOS: 4-6 weeks Problems/Symptoms Problem #1:: Depression Symptom:: Sadness, anhedonia, low motivation, worthlessness, hopelessness, biological disruption of appetite and sleep, decreased concentration, guilt, passive thoughts of . Problem #2:: Anxiety Symptom:: Worry, rumination, racing thoughts, avoidance, reexperiencing. Problem #3:: Alcohol Use Symptom:: Cravings, Anxiousness
--- NOTE | 2024-12-05 09:00 | BH.SGPN.GN ---
Behaviors/Verbalizations/Mental Status: [] Eye contact is good. Motor activity is appropriate. Appearance is casual. Speech is Appropriate. Mood is depressed. Affect is congruent. Thoughts are linear and logical. No evidence of psychosis. Reviewed daily check in sheet and no reports of suicidal ideations or intent. Client Response/Progress/Benefit: [] Pt participated at times during the group discussion. Attentive. This was pt?s first day in IOP. Briefly introduced herself and shared that she had recently completed the IOP however decompensated. ?I was sliding back on my mental health?. Worsening depression, anxiety, and stress which led to self-medication with alcohol. ?I just need to get back to where I was?. Group was supportive and empathetic which was beneficial. Will continue in IOP to prevent decompensation, increase healthy coping, and improve functioning Narrative Note: []
--- NOTE | 2024-12-05 10:10 | BH.SGPN.GN ---
Behaviors/Verbalizations/Mental Status: []Client alert and oriented, casually dressed and groomed. Eye contact good. Motor activity appropriate. Speech within normal limits. Affect congruent, mood depressed. Thoughts linear, logical, no signs of hallucinations or delusions. Client Response/Progress/Benefit: []Pt responded well to session AEB actively participating throughout group. Pt was attentive throughout group activity discussing famous individuals and how they overcame failure to be successful. Pt helped group identify how fear of failure can impact mental health and relationships. Pt personally identified fear of failure has led to pt not pushing herself because she believed she was dumb and not smart enough. Participated in experiential activity, working with group members to problem solve. Appeared to benefit from increased knowledge of what causes fear of failure and how it impacts people. Will continue IOP tx to prevent decompensation, improve daily functioning and learn healthy coping skills. Narrative Note: []
--- NOTE | 2024-12-05 11:10 | BH.SGPN.GN ---
Behaviors/Verbalizations/Mental Status: []Pt alert and oriented, casually dressed and groomed. Eye contact fair. Motor activity appropriate. Speech within normal limits. Affect congruent, mood anxious. Thoughts linear, logical, no signs of hallucinations or delusions. Client Response/Progress/Benefit: [] Pt responded well to session, engaged in the experiential activity and attentive throughout group processing. Pt reported fear of failure has kept pt from accomplishing her goals. Pt completed fear of failure worksheet and was able to identify thoughts and behaviors that reinforce personal fear of failure. Pt participated in small group discussion regarding strategies to overcome fear of failure. Identified wanting to work on setting goals and sitting with the uncomfortable. Appeared to benefit from increased knowledge of strategies to combat fear of failure and gaining self-awareness. Pt will continue IOP tx to improve distress tolerance, increase consistent use of healthy coping skills, and prevent decompensation.
--- NOTE | 2024-12-06 09:05 | BH.SGPN.GN ---
Behaviors/Verbalizations/Mental Status: [] Eye contact is good. Motor activity is appropriate. Appearance is casual. Speech is Appropriate. Mood is depressed and anxious. Affect is congruent. Thoughts are linear and logical. No evidence of psychosis. Reviewed daily check in sheet and no reports of suicidal ideations or intent. Client Response/Progress/Benefit: [] Pt was an active participant in group discussions. Attentive. Daily symptom tracker notes / for depression, anxiety, and irritability. Shared depression mainly related to her son refusing to talk with or return pt?s texts. She elaborated on their relationship briefly which has been very sporadic and contentious, however she blames herself for recent conflict which has impacted her mental health. Limited benefits noted. Benefited from group support, encouragement, and feedback. Will continue in IOP to maintain safety, increase healthy coping, and prevent decompensation. Narrative Note: []
--- NOTE | 2024-12-06 10:15 | BH.SGPN.GN ---
Behaviors/Verbalizations/Mental Status: [] Client alert and oriented, casually dressed and groomed. Eye contact good. Motor activity appropriate. Speech within normal limits. Affect congruent, mood dysthymic. Thoughts linear, logical, no signs of hallucinations or delusions. Client Response/Progress/Benefit: [] Pt responded well to session AEB sharing and listening attentively to others. Group provided examples of benefits of having social support, including: validation, help in coping with stressors, company, and accountability. Pt also participated in group discussion regarding the barriers to accessing support identifying examples to include: negative thinking, lack of communication, and fear of being a burden or judgement. Shared struggling personally with fear of failure and lack of follow through. Pt participated in experiential activity illustrating the impact communication, boundaries, and patience play in creating healthy support systems. Pt appeared to benefit from increased knowledge of the benefits of social support and greater self-awareness. Pt to continue IOP to improve mood stability, increase consistent use of healthy coping skills to maintain mood stability and sobriety, and prevent decompensation. Narrative Note: []
--- NOTE | 2024-12-06 11:15 | BH.SGPN.GN ---
Behaviors/Verbalizations/Mental Status: [] Eye contact is good. Motor activity is appropriate. Appearance is casual. Speech is Appropriate. Mood is depressed. Affect is congruent. Thoughts are linear and logical. No evidence of psychosis. Client Response/Progress/Benefit: [] Pt participated throughout AEB contributing to discussion, providing personal examples, and taking notes. Attentive and provided input on types and examples of support (emotional, tangible, informational, and social). Pt able to identify current support system and barriers that get in the way of using supports (isolation, feeling like a burden, substance abuse, expectations, lack of awareness). Able to identify individuals in his life who provide tangible and informational support. Pt seemed to benefit from identifying the type of support pt needs to work on improving. Will continue in IOP to prevent decompensation, stabilize mood, and improve functioning. Narrative Note: []
--- NOTE | 2024-12-08 13:35 | BH.MTP_ITS ---
Master Treatment Plan Patient Information Program Physician:: Dr. Pitts and Dr. Stanley Primary Therapist:: Brittnee Garcia, [facility] Psychiatric Diagnoses Psychiatric Diagnoses:: 1. Major depressive disorder, recurrent, severe without psychosis 2. PTSD 3. Generalized anxiety disorder 4. Alcohol Use Disorder 5. 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 Description of Barriers: Potential barriers include recent alcohol relapse prior to starting IOP, limited social support, emotion dysregulation, and distorted thoughts. Functional Impact: 9 year old female who presents today for new patient evaluation as her second time participating in the [facility] IOP.. Patient completed IOP back in September after having some issues with his youngest son and was having some worsening SI around that time. Does have a protection order against him at this time. Patient reports that she has started drinking again in recent past as a coping mechanism and feels as though she has been having some worsening cravings for alcohol. Somewhat recently completed the rant program including alcohol detox or the hospital and has not drank in approximately 72 hours. Had previously been drinking up to 1-2 bottles of Korey Jeffry jenny mix nightly. Has a longstanding history of alcohol use and has been on and off with Alcoholics Anonymous and does continue to go intermittently. States that she has been drinking alcohol since a young age but things have worsened over the last decade or so. Does not endorse mood symptoms including her mood being all over the board. Elaborates that she has both significant depression and anxiety and has had some symptoms of both since a young age. Does endorse a recent situation in which a friend's/ex-boyfriend's daughter recently gave her Jell-O which was made with alcohol and attempt to get patient to relapse so that she would stop spending time with her father. Objectives Objective #1: Stated Objective: Client will learn and utilize 2-3 healthy coping strategies to manage depressive symptoms. Interventions: Therapist will utilize CBT techniques to assist client with understanding the connection between thoughts, feelings and behaviors. Education will be provided on behavioral activation. Therapist will assist client in learning internal coping strategies to manage depressive symptoms, along with helping client identify triggers. Discharge Criteria: Client will have achieved this goal when can verbalize and has practiced at least 2 healthy coping strategies that successfully manage depressive symptoms. Target Date: 01/27/25 Review Date: 12/30/24 Objective #2: Stated Objective: Client will identify and replace 2-3 negative thinking patterns that reinforce depressive symptoms. Interventions: Therapist will assist client in developing an awareness of the cognitive messages that reinforce depressive thinking. Therapist will also assist client in challenging negative thinking patterns. Discharge Criteria: Client will have achieved this goal when can identify at least 2 negative thinking patterns, replace negative thinking with more positive, affirmative messages. Target Date: 01/27/25 Review Date: 12/30/24 Problem/Goal #2 Problem/Goal #2 Stated Goal:: Stabilize anxiety level and maintain sobriety while increasing ability to function and decreasing ruminative thoughts on a daily basis through Intensive Outpatient Program. Description of Barriers: Potential barriers include recent alcohol relapse prior to starting IOP, limited social support, emotion dysregulation, and distorted thoughts. Functional Impact: Pt is a 59 year old female who presents today for new patient evaluation as her second time participating in the [facility] IOP.. Patient completed IOP back in September after having some issues with his youngest son and was having some worsening SI around that time. Does have a protection order against him at this time. Patient reports that she has started drinking again in recent past as a coping mechanism and feels as though she has been having some worsening cravings for alcohol. Somewhat recently completed the rant program including alcohol detox or the hospital and has not drank in approximately 72 hours. Had previously been drinking up to 1-2 bottles of Korey Jeffry jenny mix nightly. Has a longstanding history of alcohol use and has been on and off with Alcoholics Anonymous and does continue to go intermittently. States that she has been drinking alcohol since a young age but things have worsened over the last decade or so. Does not endorse mood symptoms including her mood being all over the board. Elaborates that she has both significant depression and anxiety and has had some symptoms of both since a young age. Does endorse a recent situation in which a friend's/ex-boyfriend's daughter recently gave her Jell-O which was made with alcohol and attempt to get patient to relapse so that she would stop spending time with her father. Objectives Objective #1: Stated Objective: Client will learn and implement 2-3 calming skills to reduce overall anxiety and manage anxiety symptoms. Interventions: Therapist and group sessions will help client identify physiological warning signs of anxiety, increase awareness of thoughts that increase anxiety, and identify behaviors that reinforce anxious symptoms. Group and individual counseling will teach client calming skills to help manage anxious symptoms. Discharge Criteria: Client will have achieved this goal when can verbalize at least 2 calming skills and reports skills successfully help reduce anxious symptoms. Target Date: 01/27/25 Review Date: 12/30/24 Objective #2: Stated Objective: Client will identify 2-3 anxiety and alcohol urge triggers and 2 coping skills to use when feeling anxious and to help combat urges. Interventions: Therapist will assist client in exploring what triggers anxiety and teach client coping strategies to effectively manage anxiety symptoms. Discharge Criteria: Client will have met this goal when can identify at least 2 triggers to anxiety and verbalize two healthy ways to cope with feelings of anxiety. Target Date: 01/27/25 Review Date: 12/30/24
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
--- NOTE | 2024-12-12 09:05 | BH.SGPN.GN ---
Behaviors/Verbalizations/Mental Status: [] Eye contact is good. Motor activity is appropriate. Appearance is casual. Speech is Appropriate. Mood is anxious/irritable. Affect is congruent. Thoughts are linear and logical. No evidence of psychosis. Reviewed daily check in sheet and no reports of suicidal ideations or intent. Client Response/Progress/Benefit: [] Pt was an active participant in group discussion. Attentive. Daily symptom tracker notes 3/5 for anxiety and irritability. Reports ? ups and downs? since last IOP session, however believes that her ?medication is helping? with cravings and urges to drink. Emotion for today is ?benjamin?. Getting back to completing tasks however its has been a struggle with negative thoughts, ruminations, and regrets. Progress noted. Benefited from group support, encouragement, and feedback. Will continue in IOP to prevent decompensation, stabilize mood, and increase healthy coping. Narrative Note: []
--- NOTE | 2024-12-12 10:15 | BH.SGPN.GN ---
Behaviors/Verbalizations/Mental Status: []Client alert and oriented, casually dressed and groomed. Eye contact good. Motor activity appropriate. Speech within normal limits. Affect congruent, mood stressed. Thoughts linear, logical, no signs of hallucinations or delusions. Client Response/Progress/Benefit: [] Pt was an active participant AEB contributing to discussion, taking notes, and engaging in group activity. Connected with the topic of pitfalls and listened to group discussion on barriers that prevent from choosing a healthier path to mental wellness. Group worked together to identify examples of personal pitfalls. These examples included; shutting down, not asking for help, negative thinking patterns, and using substances. Pt benefited from group as Pt learned to better identify potential barriers to improving mental health symptoms. Pt will continue IOP tx to prevent decompensation, improve distress tolerance, and maintain sobriety. Narrative Note: []
--- NOTE | 2024-12-12 11:15 | BH.SGPN.GN ---
Behaviors/Verbalizations/Mental Status: []Client alert and oriented, casually dressed and groomed. Eye contact good. Motor activity appropriate. Speech within normal limits. Affect congruent, mood anxious and content. Thoughts linear, logical, no signs of hallucinations or delusions. Client Response/Progress/Benefit: [] Pt receptive of session, engaged throughout AEB Pt actively listening and contributing to discussion as well as taking notes.? Pt participated in the experiential activity and did well to communicate ideas with peers and manage emotions. Pt attentive as group processed how the emotions and perspective of the group impacted the activity. Group worked together to identify different coping skills to help manage pitfalls. Pt identified a pitfall they struggle with as fear of judgement. Pt plans to work on their pitfall by taking breaths and challenging negative self-talk. Benefited from identifying personal pitfalls and strategies to overcome these pitfalls. Pt will continue IOP tx to prevent decompensation, improve daily functioning, and gain skills to maintain sobriety. Narrative Note: []
--- NOTE | 2024-12-15 09:02 | BH.SGPN.GN ---
Behaviors/Verbalizations/Mental Status: []Pt alert and oriented, casually dressed and groomed. Eye contact good. Motor activity appropriate. Speech within normal limits. Affect congruent, mood content. Thoughts linear, logical, no signs of hallucinations or delusions. Reviewed pt?s symptom tracker, no risk for suicidal ideation, plan, or intent 12/15/24 Client Response/Progress/Benefit: []Pt was an active participant in group discussions. Attentive. Able to identify mental health wins including being able to challenge herself to attend her appointment at [facility], despite some anxiety about doing so. Reports it went better than she had expected and was glad she went. Additional win noted as continuing to practice gratitude related to her place of employment, as she both enjoys and gets frustrated with her job. Stressor noted as continuing to owe money on car repairs. Pt receptive to feedback from peers which pt reported was helpful. Progress noted. Benefited from group support, encouragement, and feedback. Will continue in IOP to prevent decompensation, continue to gain healthy coping skills, and reduce negative thinking patterns. Narrative Note: []
--- NOTE | 2024-12-15 10:15 | BH.SGPN.GN ---
Behaviors/Verbalizations/Mental Status: []Eye contact is fair. Motor activity is appropriate. Appearance is casual. Speech is Appropriate. Mood is depressed. Affect is constricted. Thoughts are linear and logical. No evidence of psychosis Client Response/Progress/Benefit: [] Pt engaged in session AEB listening attentively to others and providing input throughout. Pt engaged in activity, able to connect how it can be uncomfortable and difficult to accept when things are out of one?s own control. Worked with peer group to identify things in life which are hard to accept and identified personal things that are hard to accept including ?compliments, forgiveness from my kids, and boundaries.? Seemed to benefit from increased awareness of the meaning as well as the importance of acceptance. Pt also worked on what acceptance is vs is not for own personal example. Will continue in IOP to prevent decompensation, improve daily functioning, and maintain sobriety. Narrative Note: []
--- NOTE | 2024-12-15 11:10 | BH.SGPN.GN ---
Behaviors/Verbalizations/Mental Status: [] Pt alert and oriented, casually dressed and groomed. Eye contact fair. Motor activity is appropriate. Speech within normal limits. Affect congruent, mood depressed. Thoughts linear, logical, no signs of hallucinations or delusions. Client Response/Progress/Benefit: [] Pt was attentive and engaged participating in discussion on acceptance and the mental health benefits of practicing acceptance. Pt and peers identified what makes acceptance challenging and pt completed a self-reflection exercise on what is hard to accept in pt's life. Pt identified things that are hard to accept for her. Pt identified an acceptance skill of acceptance is not approval to practice Pt appeared to benefit from gaining insight and learning strategies to increase acceptance. Will continue in IOP to prevent decompensation, stabilize mood, increase healthy coping, and improve functioning. Narrative Note: []
--- NOTE | 2024-12-15 14:59 | BH.MDN ---
Multi-Disciplinary Note Note 45-min Individual: Time Started:: 12:10 Date: 12/15/24 Purpose of session/treatment goals addressed:: Purpose of session was to address goals 1 and 2 from [facility]TP. Eye Contact:: Fair Motor Activity:: Restless Appearance:: Casual Speech:: Appropriate and Rambling Mood:: Anxious and Depressed Affect:: Labile Thoughts:: Logical, Circular and No evidence of hallucinations/delusions noted Staff Interventions:: thought challenging, psychoeducation on:, CBT techniques, mindfulness skills, strengths perspective, goal setting and taught coping skills Client Response:: Client reported she is struggling because one of her daughters has addiction issues and needs to get help. Client stated she is feeling a lot of guilt because of her own poor choices as a mother. Client reported she struggled with her own addiction and had three of her kids removed from her care. Client stated this daughter was raised in [place] by one of client's sisters. Client reported she has had off and on contact with this daughter and tries to help financially when she can. Client stated she wishes she could have a better relationship with all of her kids, but recognizes they all have their own experiences and feelings from what they went through when she was personally struggling as a mom. Therapist worked with client to challenge some of client's negative thoughts and focus on what's within her control today. Client reported she knows beating herself up over past choices will not change those past choices, but has a hard time not going to the negative. Client and therapist worked on creating list of reasons to focus on what's within her control. client stated she wants to stay focused on the here and now because she doesn't want to risk putting herself into relapse. Client reported it's important to focus on staying healthy so she can have a relationship with her granddaughter. Client reported if she were to go back to drinking alcohol and her grand daughter's guardian's found out she would no longer be allowed to see her. Therapist encouraged client to start reflecting on her purposes for staying sober and continuing to work on improving her mental health. Risks/Concerns:: Denies suicidal thoughts, plan, or intention to date. future oriented. Progress Toward Goals/Plan:: Slight decompensation noted with client reporting increased negative thoughts and beating self up over her daughter's struggle with addiction. client getting more stuck on her past decisions which is resulting in her thinking negatively of herself and staying stuck on the coulda, shoulda, woulda. Client encouraged to identify reasons to keep focusing on improving her mental health and her purposes for staying sober. Plan is for client to continue IOP to increase consistent use of healthy coping skills, challenge distorted/negative thoughts, and prevent decompensation. Time Stopped:: 12:55
--- NOTE | 2024-12-16 09:05 | BH.SGPN.GN ---
Behaviors/Verbalizations/Mental Status: [] Eye contact is good. Motor activity is appropriate. Appearance is disheveled. Speech is Appropriate. Mood is depressed/irritable. Affect is congruent. Thoughts are linear and logical. No evidence of psychosis. Reviewed daily check in sheet and no reports of suicidal ideations or intent. Client Response/Progress/Benefit: [] Pt participated at times during the group discussion. Attentive. Daily symptom tracker notes 11/27 for depression, anxiety, and agitation. Reports mood and ability to function are worse. She discussed being tired due to several factors she as working 7 days straight, however according to pt this is something that she prefers as she isn't required to work everyday. Describes work as a way to keep her busy and distracted from healthy urges. Tearful at times. Reports that her daughter, who lives out of state is currently going through substance abuse concerns which are impacting her life. Her daughter was set to enter rehab however ran and the family is unsure where she is located. Pt is working through the uncertainly, guilt, and powerlessness of the situation. She is familiar with addiction from her own experiences and is worried about her daughter's future. Benefited from group support, encouragement, and feedback. Peers discussed impact of uncertainly and shame as well as how to practice radical acceptance. Regression noted based on situational stressors. Will continue in IOP to prevent decompensation, stabilize mood, and increase healthy coping. Narrative Note: []
--- NOTE | 2024-12-16 10:10 | BH.SGPN.GN ---
Behaviors/Verbalizations/Mental Status: [] Eye contact is good. Motor activity is appropriate. Appearance is casual. Speech is Appropriate. Mood is anxious. Affect is congruent. Thoughts are linear and logical. No evidence of psychosis. Client Response/Progress/Benefit: [] Pt receptive of session, actively engaged throughout AEB taking notes, providing input, and contributing in small group discussion. Appeared to connect with group topic of automatic thoughts and cognitive distortions, as well as the impact of thought patterns on mental health, coping behaviors, and relationships. This particular group is very heavy on psychoeducation and pt appeared to connect with distortions and how they can impact functioning. Client shared emotional reasoning and personalization are the cognitive distortions that impact him the most. Pt appeared to benefit from gaining insight on distorted thinking patterns and how this impacts overall mental health. Will continue IOP to increase use of healthy coping skills, challenge distortions, and prevent decompensation.
--- NOTE | 2024-12-16 11:15 | BH.SGPN.GN ---
Behaviors/Verbalizations/Mental Status: []Pt alert and oriented, casually dressed and groomed. Eye contact fair. Motor activity appropriate. Speech within normal limits. Affect congruent, mood depressed and anxious. Thoughts linear, logical, no signs of hallucinations or delusions Client Response/Progress/Benefit: [] Pt was an active participant during group discussion. Pt was placed in a smaller group and participated in combatting example distortions with peers. Pt was engaged in the smaller group, participated in group interactions to brainstorm answers, and appeared to be comprehending cognitive distortions. Attentive and appeared to connect with psychoeducation about different strategies to reframe/challenge distortions. Identified wanting to use the T.H.I.N.K skill to better challenge personal distorted thoughts. Benefited from gaining further insight and awareness of cognitive distortions as well as practicing ways to reframe and challenge thoughts. Will continue in IOP to improve daily functioning, increase healthy coping, maintain sobriety, and prevent decompensation. Narrative Note: []
--- NOTE | 2024-12-20 09:05 | BH.SGPN.GN ---
Behaviors/Verbalizations/Mental Status: []Pt alert and oriented, neatly dressed and groomed. Eye contact good. Motor activity appropriate. Speech within normal limits. Affect congruent, mood depressed. Thoughts linear, logical, no signs of hallucinations or delusions. Reviewed pt?s symptom tracker, no risk for suicidal ideation, plan, or intent 12/20/24. Client Response/Progress/Benefit: []Pt was an active participant in group discussions. Attentive. Able to identify mental health wins including acknowledging the people in her life that care and feeling better physically after not feeling well. Pt's stressor today is her youngest child reached out to pt and shared that he does not want to talk to pt anymore. Pt stated pt is feeling confused this morning. 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 Progress noted, but pt's stress continues to be an issue. Benefited from group support, encouragement, and feedback. Will continue in IOP to prevent decompensation, improve daily functioning, and reduce self-sabotage. Narrative Note: []
--- NOTE | 2024-12-20 10:10 | BH.SGPN.GN ---
Behaviors/Verbalizations/Mental Status: []Patient was alert and oriented, casually dressed and groomed. Eye contact good. motor activity appropriate. speech within normal limits. Affect congruent, mood dysthymic and agitated. Thoughts linear, logical, no signs of hallucinations or delusion. Client Response/Progress/Benefit: []Pt participated in the group discussions AEB providing input, nodding and taking notes. Attentive during psychoeducation Goal Setting. Participated during the discussion on common barriers. Pt stated a personal barrier to accomplishing goals is not believing in herself and procrastination. Group also identified benefits of goals as sense of purpose, improved self-confidence, more motivation for other goals, sense of accomplishment, and improved mental health. Pt identified personal benefits to goal setting. Benefited from increased awareness of mental health benefits of goals as well as psychoeducation on SMART goal criteria. Will continue in IOP to improve functioning and mood stability, challenge distorted thoughts, and prevent decompensation. Narrative Note: []
--- NOTE | 2024-12-20 11:10 | BH.SGPN.GN ---
Behaviors/Verbalizations/Mental Status: [] Pt alert and oriented. Appearance is casual. Eye contact good. Motor activity appropriate. Speech within normal limits. Affect is dysthymic. Mood is congruent. Thoughts linear, logical, no signs of hallucinations or delusions. Client Response/Progress/Benefit: [] Pt was engaged during discussion and experiential activity. Completed the worksheet challenging them to develop a personal SMART goal. Pt chose a SMART goal to clean and put away her dishes within the next week. Believes this goal will benefit her by being able to cook meals at home and having a tidy kitchen.. Identified obstacles such as watching too much tv, falling asleep, and no motivation.. Benefited from this group by developing a short-term SMART goal related to mental health. Will continue IOP to improve consistent follow through on goals, challenge negative thoughts, and prevent decompensation.
--- NOTE | 2024-12-22 09:05 | BH.SGPN.GN ---
Behaviors/Verbalizations/Mental Status: []? Pt alert and oriented, casually dressed and groomed. Eye contact good. Motor activity appropriate. Speech within normal limits. Affect congruent, mood anxious and agitated. Thoughts linear, logical, no signs of hallucinations or delusions. Reviewed pt?s symptom tracker, no risk for suicidal ideation, plan, or intent 12/22/24.?? Client Response/Progress/Benefit: []Pt was an active participant in group discussions. Attentive. Able to identify mental health wins including spending time with her granddaughter yesterday, as well as being more productive at work this morning than she has been most of the week. Pt Noted that she is still recovering from illness which is impacting her mood and contributing to irritability this morning. Additionally, described struggling with intrusive negative thoughts and is having difficulties in managing them. Receptive of group supportive suggestions and encouragement. Benefited from group support, encouragement, and feedback. Will continue in IOP tx to prevent decompensation, promote mood stability, and increase self-compassion.? Narrative Note: []
--- NOTE | 2024-12-22 10:00 | BH.SGPN.GN ---
Behaviors/Verbalizations/Mental Status: [] Pt alert and oriented, casually dressed and groomed. Eye contact good. Motor activity appropriate. Speech within normal limits. Mood: anxious and irritable. Affect: congruent. Thoughts linear, logical, no signs of hallucinations or delusions. Client Response/Progress/Benefit: [] Pt was an active participate during group discussions. Attentive during psychoeducation on self-sabotage and its impact on mental health. Worked with peers to identify different types of self-sabotage such as; procrastination, self-medicating, unrealistic expectations, people-pleasing, and poor boundaries. Worked with peers to identify reasons for self-sabotage behaviors (feels comfortable, fear of failure, false sense of control, low self-worth, and fear of being vulnerable). Seemed to benefit from gaining awareness about the self-sabotage. Pt to continue IOP tx to prevent decompensation, stabilize mood, increase healthy coping, and improve functioning. Narrative Note: []
--- NOTE | 2024-12-22 11:10 | BH.SGPN.GN ---
Behaviors/Verbalizations/Mental Status: []Pt alert and oriented, casually dressed and groomed. Eye contact good. Motor activity appropriate. Speech within normal limits. Affect congruent, mood euthymic. Thoughts linear, logical, no signs of hallucinations or delusions. Client Response/Progress/Benefit: []Pt responded well to session, attentive and providing input. Pt worked on his mental health wellness garden picture and discussed things that contribute to mental wellness in his life. With peers, pt discussed things that would sabotage one's mental health wellness and added it to the garden metaphor. Pt identified things pt personally does to sabotage as putting other needs above her own and closing healthy people out of her life. Pt attentive during psychoeducation on ways to reduce self-sabotage. Pt appeared to benefit from learning skills and gaining awareness of self-sabotaging behaviors. Pt will continue IOP tx to promote use of healthy coping skills, challenge distortions, and prevent decompensation.
--- NOTE | 2024-12-22 14:00 | BH.MDN ---
Multi-Disciplinary Note Note 45-min Individual: Time Started:: 12:05 Date: 12/22/24 Purpose of session/treatment goals addressed:: Purpose of session was to address goals 1 and 2 from [facility]. Eye Contact:: Fair Motor Activity:: Restless Appearance:: Casual Speech:: Appropriate Mood:: Anxious and Depressed Affect:: Congruent Thoughts:: Linear, Logical and No evidence of hallucinations/delusions noted Staff Interventions:: thought challenging, CBT techniques, mindfulness skills, strengths perspective, goal setting and other (self-sabotage) Client Response:: Client reported lately she hasn't been sleeping very well because she's waking up in pain. Client said she feels like the change in weather is activating her arthritis which then has resulted in her having more issues in the middle of the night and disrupting her sleep. Client admitted she doesn't have the best sleep schedule because she often falls asleep on the couch and will eventually wake up in the middle of the night to go back to her bed. Client worked with therapist to develop a more structured sleep schedule so that she gets more rest and is in a comfier sleep environment. Client agreed it would be helpful for her to go to her bed at 8:00 PM to watch her last show and if she falls asleep during the show she'll at least be in her bed. Client stated she's continuing to follow up with going to a meetings every day which having that community has been very helpful for her sobriety. Client stated continuing to take the medication that's helping with her alcohol urges. Client stated she does feel like she's doing well with getting up going to work and making it to [facility]. Client stated she's done better with some chores around the house but recognizes there's still improvement to [place]. Client and therapist explored what behaviors led to client relapsing on alcohol and going backwards after she graduated from [facility] [employer] the last time period client identified self sabotaging behavior she often engages in that can quickly decline her functioning to include letting her kids hurt her by having no boundaries, people pleasing, hanging out with unhealthy people, and not being consistent with self-care and chores. Client therapist discussed the importance of creating a comprehensive maintenance plan and to identify what might help her overcome some of those sabotage behaviors to prevent it in the future. Risks/Concerns:: denies suicidal thoughts, plan, or intention to date. future oriented. 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 Client does continue to struggle with consistency in application of skills and maintaining strategies that help improve her mental health. Client is to continue IOP to maintain sobriety, improve distress tolerance, and prevent decompensation. Time Stopped:: 12:50
--- NOTE | 2024-12-23 09:05 | BH.SGPN.GN ---
Behaviors/Verbalizations/Mental Status: [] Eye contact is good. Motor activity is appropriate. Appearance is casual. Speech is Appropriate. Mood is depressed and irritable. Affect is congruent. Thoughts are linear and logical. No evidence of psychosis. Reviewed daily check in sheet and no reports of suicidal ideations or intent. Client Response/Progress/Benefit: [] Pt was an active participant in group discussions. Attentive. Daily symptom tracker notes 2/5 for depression, anxiety, and irritability. Believes that she is beginning to re-engage in healthy routines which has improved her mental health. She talked at length about challenging herself to set a boundary or cut ties with another individual which led to a discussion on creating and maintaining boundaries. Progress noted. Benefited from group support, encouragement, and feedback. Will continue in IOP to prevent decompensation, increase healthy coping,and improve functioning. Narrative Note: []
--- NOTE | 2024-12-23 10:05 | BH.SGPN.GN ---
Behaviors/Verbalizations/Mental Status: [] Eye contact is good. Motor activity is appropriate. Appearance is casual. Speech is Appropriate. Mood is depressed. Affect is congruent. Thoughts are linear and logical. No evidence of psychosis. Client Response/Progress/Benefit: [] Pt engaged participant AEB listening to others, engaging in activity, and providing feedback throughout. Attentive during psychoeducation and provided insight into obstacles that impede mental wellness. Pt chose shared with group current mental health reality and desired mental health reality, noting she would like to feel more content and work on repairing the relationship with her son. Attentive to others that shared. Identified barriers to desired reality include: isolation, negative self-talk, people pleasing, and inappropriate guilt. Benefited from taking look at current mental health state and obstacles for progress. Pt to continue IOP tx to improve boundaries, challenge negative self-talk, and prevent decompensation. Narrative Note: []
--- NOTE | 2024-12-23 11:05 | BH.SGPN.GN ---
Behaviors/Verbalizations/Mental Status: [] Eye contact is good. Motor activity is appropriate. Appearance is casual. Speech is Appropriate. Mood is dysthymic and anxious. Affect is congruent. Thoughts are linear and logical. No evidence of psychosis Client Response/Progress/Benefit: [] Pt was engaged at times during group discussions and was attentive during group activity. Worked with peers to identify strategies to help overcome barriers and obstacles to desired reality. Group worked together to develop strategies for the common barriers. Identified personal barriers to desired reality and chose one obstacle to work. Pt stated pt wants to work on fear of never having a relationship with son and identified a strategy to allow myself to continue getting better mentally so I can learn how to better approach the situation. Pt seemed to benefit from increased knowledge of practical strategies to overcome common barriers to moving forward. Will continue in IOP to prevent decompensation, increase healthy coping, and improve functioning. Narrative Note: []
== END 2024-12-23 23:59 ==
LOC: BHIOP 08:00
PROVIDERS: PCP Family Medicine; Referring Provider Psychiatry & Neurology Psychiatry; Visit Provider Psychiatry & Neurology Psychiatry
DX: F33.2 Major depressive disorder, recurrent severe without psychotic features (principal); F43.10 Post-traumatic stress disorder, unspecified; F41.1 Generalized anxiety disorder; F10.90 Alcohol use, unspecified, uncomplicated; Z79.899 Other long term (current) drug therapy
CPT/HCPCS: S9480; 90832; 90834; 90853

== ENCOUNTER 2024-12-26 07:16 | Outpatient (RCR) | payer MEDICARE, MEDICAID, SELFPAY ==
[2024-12-24 02:38] VITALS: BP 170/90; PULSE 66
--- NOTE | 2024-12-28 10:10 | BH.SGPN.GN ---
Behaviors/Verbalizations/Mental Status: []Eye contact is good. Motor activity is appropriate. Appearance is casual. Speech is Appropriate. Mood is dysthymic. Affect is congruent. Thoughts are linear and logical. No evidence of psychosis. Client Response/Progress/Benefit: []Pt was an active participant in group discussion. Engaged and attentive during psychoeducation and interactive discussion on coping skills, why people use unhealthy coping skills, how to replace unhealthy coping skills, and internal vs external coping skills. Attentive as peers came up with list of unhealthy coping skills. Pt reported personally, she tends to ignore when she needs helps and push through which leads to more problems. Pt also shared that she has turned to substances to cope as well which causes a lot of issues. Group discussed the effects of maladaptive coping skills on mental health. Benefited from increased understanding of unhealthy coping skills and the need for developing healthy internal and external coping skills. Actively participated during experiential group activity and was able to related this activity to group topic. Will continue in IOP to prevent decompensation, prevent relapse, and improve functioning. Narrative Note: []
--- NOTE | 2024-12-28 11:10 | BH.SGPN.GN ---
Behaviors/Verbalizations/Mental Status: []Pt alert and oriented, casual in appearance. Eye contact good. Motor activity appropriate. Speech within normal limits. Affect congruent, mood euthymic. Thoughts linear, logical, no signs of hallucinations or delusions. Client Response/Progress/Benefit: [] Pt engaged participant AEB provided contributions during discussion, taking notes, and listening attentively to others. Engaged in the provided activity. Group discussed the different categories of coping skills which included distraction, emotional release, grounding, self-love, and thought challenging. Pt participated in creating a coping skills ?menu? from the different categories of coping skills. Pt's coping skill menu included: breathing, body movement, engaging senses, cooking, and gratitude. Appeared to benefit from increasing repertoire of healthy coping skills. Will continue IOP to promote healthy coping skills, improve view of self, and prevent decompensation.
--- NOTE | 2024-12-28 13:52 | BH.MTP_ITS ---
Treatment Plan Review Demographics Date of Admission:: 12/02/24 Date of Treatment Plan Review:: 12/28/24 Admitting Diagnoses:: 1. Major depressive disorder, recurrent, severe without psychosis F33.2 2. PTSD 3. Generalized anxiety disorder 4. Alcohol Use Disorder 5. 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 Major depressive disorder, recurrent, severe without psychosis F33.2 2. PTSD 3. Generalized anxiety disorder 4. Alcohol Use Disorder 5. 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 Status of Current Problems and Symptoms: Ongoing problems. Client reported relapse on alcohol for the past 4 days. Client stated recent psychosocial stressor that led to focusing on the negative and choosing to drink alcohol as a way to cope with the stressor. Client reported she is frustrated with herself for not taking the medication she has that decreases urges. 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 client reporting increased depression symptoms today following relapse and negative thought patterns for going back to a coping skill she knows doesn't help her. client focused on what she can do to stay sober and improve her mental health. Progress Problem #1: Problem Name:: Depression Status of Goals:: Obj 1: slight improvement, ongoing work encouraged. Per DSM 5 cross-cutting measure at review pt's depression decreased by 25%. Obj 2 - slight improvement, ongoing work encouraged. Client able to identify negative thought patterns that reinforce depressed symptoms. Client struggles with challenging those thoughts on a consistent basis. Client's recent alcohol relapse has increased her negative thoughts towards herself. Team Recommendations:: Team recommends continued work on current goals and objectives. Team encouraged continued focus on building consistent use of hea lthy coping skills, reviewing distress tolerance skills, and challenge distortions. Client is established with an outpatient mental health therapist that specializes in Alcohol/Drug use. Client encouraged to inform her current outpatient counselor of the relapse. Team also recommends IOP therapist have a discussion with client that if she relapses on alcohol again the program will have to refer her to a AOD specific IOP program. Problem #2: Problem Name:: Anxiety and alcohol urges Status of Goals:: Obj 1 - Not met. Decompensation noted per DSM 5 cross- cutting measure at review. Client's anxiety scores increased by 33%. This increase could be attributed to client's recent alcohol relapse and stressors with her children. Obj 2 - not met. Client able to identify anxious and alcohol triggers. Client relapsed for the past 4 days on alcohol after ruminating about a stressor with her granddaughter's father being deported to [place]. Client did not utilize her healthy coping skills to manage her anxious ruminations and reverted back to alcohol as a way to numb her feelings. Team Recommendations:: Team recommends continued work on current goals and objectives. Team encouraged continued focus on building consistent use of healthy coping skills, reviewing distress tolerance skills, and challenge distortions. Client is established with an outpatient mental health therapist that specializes in Alcohol/Drug use. Client encouraged to inform her current outpatient counselor of the relapse. Team also recommends IOP therapist have a discussion with client that if she relapses on alcohol again the program will have to refer her to a AOD specific IOP program.
--- NOTE | 2024-12-28 16:59 | BH.MDN_ITS ---
Multi-Disciplinary Note Note 45-min Individual: Time Started:: 09:05 Date: 12/28/24 Purpose of session/treatment goals addressed:: Purpose of session was to address goals 1 and 2 from [facility]. Eye Contact:: Fair Motor Activity:: Appropriate Appearance:: Casual Speech:: Appropriate Mood:: Anxious and Depressed Affect:: Congruent Thoughts:: Linear, Logical and No evidence of hallucinations/delusions noted Staff Interventions:: thought challenging, CBT techniques, mindfulness skills, strengths perspective, goal setting and taught coping skills Client Response:: Client reported feeling very disappointed in herself because over the weekend she relapsed on alcohol for 4 days. Client stated started struggling Thursday evening because she found out that her grandchild's father was deported to [place] and her daughter does not know where he is or if he is okay. Client reported she allowed herself to ruminate and worry about the situation even though she recognizes that it is outside her control. Client stated she sabotaged herself by choosing to not take the medication she has that helps decrease alcohol urges. Client stated instead she chose to go to the grocery store and cloth picker a bottle of alcohol. Client reported feeling disappointed in herself with the relapse. Client reported she knows drinking alcohol doesn't help her situation and always makes things harder for herself. Client stated she will be talking to her outpatient counselor about relapse and will request getting drug tested so she has accountability. Client reported she has been sober for a day and wants to stay off the alcohol. Client worked with therapist to develop plan to bounce back from relapse. Client reported she will continue AA meetings, speak with her sponsor, and will put up visual aid in her car to remind self of consequences of buying alcohol. Client stated if she keeps relapsing eventually she will lose the right to spend time with her granddaughter. Client identified reasons to stay sober. Risks/Concerns:: Client recently relapsed on alcohol and is reporting being sober now. Client will be asking for drug tests at her outpatient counseling agency to keep her accountable. Client reports she still wants to continue mental health IOP because she believes it's her mental health struggles that trigger alcohol use. Client understands if she relapses again she will be referred to [facility] addiction program. Progress Toward Goals/Plan:: Decompensation noted AEB client reporting relapse on alcohol over weekend after distressing situation. Client admitted to sabotaging herself by not taking the medication she has that has been helpful with decreasing alcohol urges. Client stated she needs to work on focusing on what's within her control so she can handle stressful situations more appropriately. Client reported getting stuck in the ruminations over the weekend contributed to relapse. Plan is for client to continue IOP to increase consistent use of healthy coping skills, challenge distorted/negative thoughts, and prevent decompensation. Time Stopped:: 09:50
--- NOTE | 2024-12-29 09:05 | BH.SGPN.GN ---
Behaviors/Verbalizations/Mental Status: [] Pt alert and oriented, neatly dressed and groomed. Eye contact good. Motor activity appropriate. Speech within normal limits. Affect congruent, mood euthymic. Thoughts linear, logical, no signs of hallucinations or delusions. Reviewed pt?s symptom tracker, no risk for suicidal ideation, plan, or intent 12/29/24. Client Response/Progress/Benefit: []Pt was an active participant in group discussions. Attentive. Able to identify mental health wins including getting up early and going to work already today and changing her perspective which has helped pt cope with the stressors of the world. Pt's stressor today is she has been procrastinating a house chore and I know I'm just being lazy. Pt stated pt is feeling motivated this morning. Pt receptive to feedback from peers which pt reported was helpful. Progress noted, but pt's stress continues to be an issue. Benefited from group support, encouragement, and feedback. Will continue in IOP to prevent decompensation, improve daily functioning, and increase distress tolerance. Narrative Note: []
--- NOTE | 2024-12-29 10:15 | BH.SGPN.GN ---
Behaviors/Verbalizations/Mental Status: [] Eye contact is good. Motor activity is appropriate. Appearance is casual. Speech is Appropriate. Mood is anxious and irritable. Affect is congruent. Thoughts are linear and logical. No evidence of psychosis. Client Response/Progress/Benefit: [] Pt was an active participant in group discussions. Attentive during psychoeducation on the 4 communication styles (Passive, Passive-Aggressive, Aggressive, and Assertive) and the obstacles to effective communication. Contributed during interactive discussion on the benefits of communicating effectively. Worked well with peers to identify the benefits and disadvantages to the different communication styles. Pt beleives that she is primarily passive and passive-aggressive and gave examples of recent events. Benefited from increased understanding of communication styles and how these can impact effective communication. Will continue in IOP to prevent decompensation, increase healthy coping skills, and improve functioing. Narrative Note: []
--- NOTE | 2024-12-29 11:10 | BH.SGPN.GN ---
Behaviors/Verbalizations/Mental Status: []Pt alert and oriented, casually dressed and groomed. Eye contact good. Motor activity appropriate. Speech within normal limits. Affect congruent, mood dysthymic. Thoughts linear, logical, no signs of hallucinations or delusions. Client Response/Progress/Benefit: [] Pt responded well to session AEB Pt listening attentively to others and providing input during group discussion on the pay offs and costs of the different communication styles. Pt able to connect how current communication style impacts mental health. Connected with peers? comments about importance of using assertive communication. Pt seemed to benefit from increasing awareness of healthy strategies to improve communication. Identified wanting to work on improving confidence when communicating with oothers. Will continue IOP tx to prevent decompensation, improve mood stability, and improve daily functioning. ? Narrative Note: []
--- NOTE | 2024-12-30 09:00 | BH.SGPN.GN ---
Behaviors/Verbalizations/Mental Status: [] Eye contact is good. Motor activity is appropriate. Appearance is casual. Speech is Appropriate. Mood is anxious and irritable. Affect is congruent. Thoughts are linear and logical. No evidence of psychosis. Reviewed daily check in sheet and no reports of suicidal ideations or intent. Client Response/Progress/Benefit: [] Pt was an active participant in group discussions. Attentive. Daily symptom tracker notes 2/5 for anxiety and irritability. Pt elaborated on several psychosocial stress in her life which are impact her mental health. Majority of theses stressors are outside of her control however are leading to significant ruminations, worry, fear, and stress. Group empathized and allowed her to process which was beneficial however encouraged utilizing radical acceptance skills. She also continue to struggle with her relationships and boundary setting. She has awareness of the need to set boundaries however fearful of conflict. Limited progress noted. Struggles to take action of make changes therefore ruminations and holds resentments. Will continue in IOP to prevent decompensation, stabilize mood, and increase healthy coping. Narrative Note: []
--- NOTE | 2024-12-30 10:15 | BH.SGPN.GN ---
Behaviors/Verbalizations/Mental Status: [] Eye contact is good. Motor activity is appropriate. Appearance is casual. Speech is Appropriate. Mood is depressed and irritable. Affect is congruent. Thoughts are linear and logical. No evidence of psychosis Client Response/Progress/Benefit: [] Pt receptive to session AEB listening attentively to others and taking notes. Pt attentive and contributed throughout psychoeducation on the cognitive triangle and maintenance cycles. Pt engaged during group discussion reviewing the impact of daily activities and behaviors in either reinforcing unhealthy maintenance cycles and depression or assisting in reducing symptoms (?down? vs ?up? activities). Pt participated during interactive discussion in which pt identified common up activities (showering, clean clothes, pets, walks, call someone, walking in grass, eating healthy) and down activities (binge watching, staying in bed, feeling sorry for myself, cancelling plans, not showering). Appeared to benefit from increased awareness of current behaviors and impact these have on mental health. Will continue IOP to prevent decompensation, stabilize mood, and increase healthy coping. Narrative Note: []
--- NOTE | 2024-12-30 11:10 | BH.SGPN.GN ---
Behaviors/Verbalizations/Mental Status: []Pt alert and oriented, neatly dressed and groomed. Eye contact good. Motor activity appropriate. Speech within normal limits. Affect congruent, mood anxious. Thoughts linear, logical, no signs of hallucinations or delusions. Client Response/Progress/Benefit: [] Pt responded well to session, attentive and engaged in group discussions and activity. Actively engaged in continued discussion about up activities and down activities. Active participant as group discussed values and the benefits that knowing one's values can have on one's mental health. Pt completed worksheet on values and set a goal to improve her relationship with her granddaughter by continuing to maintain her sobriety and paying her bills. Benefited from increased awareness of their personal values and how incorporating their values into behavioral activation goals can positively impact mental health. Will continue in IOP to prevent relapses, increase self-compassion, and reduce negative self-talk. ? Narrative Note: []
--- NOTE | 2025-01-02 09:00 | BH.SGPN.GN ---
Behaviors/Verbalizations/Mental Status: [] Eye contact is good. Motor activity is appropriate. Appearance is casual. Speech is Appropriate. Mood is anxious and irritable at times. Affect is congruent. Thoughts are linear and logical. No evidence of psychosis. Reviewed daily check in sheet and no reports of suicidal ideations or intent. Client Response/Progress/Benefit: [] Pt was an active participant in group discussion. Attentive. Daily symptom tracker notes 11/27 for anxiety. Pt states that she is in good spirits today. Motivated to be assertive today. Plans to set boundaries with a friend. Shared the situations and reasons for boundary-setting which is causing resentments, rumination, and overll impacting her functioning. Group provided feedback and suggestions to set and maintain boundaries while keeping a friendship which was beneficial. She continues to reports psychosocial stressors which are how of her control however continue to impact her. Will continue in IOP to prevent decompensation, stabilize mood, improve functioning, and increase healthy coping skills. Narrative Note: []
--- NOTE | 2025-01-02 10:10 | BH.SGPN.GN ---
Behaviors/Verbalizations/Mental Status: []Eye contact is good. Alert and oriented. Motor activity is appropriate. Appearance is casual. grooming is appropriate. Speech is Appropriate. Mood is content. Affect is congruent. Thoughts are linear and logical. No evidence of psychosis or hallucinations. Client Response/Progress/Benefit: [] Pt was an active participate AEB listening attentively to others and contributing during group discussions, participating in activity, and taking notes throughout. Attentive and provided input as the group identified ways we can hurt others or sabotage self by not regulating our emotions. Participated with peers to identify ways emotions impact communication. Provided an example of shutting down and isolating when depression is unmanaged. Participated during group activity. Pt benefited from session by gaining an increased understanding on the importance of managing emotions to improve daily functioning. Will continue IOP tx to promote use of healthy coping skills, reduce negative thinking patterns, and improve mood stability. ? Narrative Note: []
--- NOTE | 2025-01-02 11:05 | BH.SGPN.GN ---
Behaviors/Verbalizations/Mental Status: []Pt alert and oriented, casually dressed and appropriately groomed. Eye contact good. Motor activity appropriate. Speech within normal limits. Affect congruent, mood depressed. Thoughts linear, logical, no signs of hallucinations or delusions. Client Response/Progress/Benefit: [] Pt engaged in session AEB Pt listening attentively to peers and providing input. Attentive during psychoeducation on 4 zones of regulation. Pt able to identify feelings and behaviors for each zone. Pt identified coping skills one can use to support self in each zone. Pt reported feeling in the green zone today because ?I?m not stressing over things I have no control over.? Pt stated coping skills pt wants to practice in each zone include: goal setting, positive self-talk, and opposite action. Pt reported she could benefit from ?continuing to have a positive attitude.? Benefited from increased education on zones of regulation or stages of alertness for emotions and healthy coping skills to use for each zone. Will continue IOP tx to maintain sobriety, reduce negative self-talk, and increase daily functioning. ??? Narrative Note: []
--- NOTE | 2025-01-03 09:05 | BH.SGPN.GN ---
Behaviors/Verbalizations/Mental Status: [] Eye contact is good. Motor activity is appropriate. Appearance is casual. Speech is Appropriate. Mood is depressed. Affect is congruent. Thoughts are linear and logical. No evidence of psychosis. Reviewed daily check in sheet and no reports of suicidal ideations or intent. Client Response/Progress/Benefit: [] Pt was an active participant in group discussion. Attentive. Daily symptom tracker notes 2/5 for anxiety and 3/5 for irritability. Anger and ruminations over an unexpected event yesterday. Group helped pt identify her anger triggers as well as the consequences of passive communication. Identified resentments caused by people-pleasing. Also identified contrasting emotions which have led to internal conflict. Able to identify progress and mental health wins which include not needing PRN medication for urges for the past two. Difficulty stabilizing due to struggles following through with boundary-setting and managing situational stressors. Limited progress noted. Beneifted from group support, encouragement, and feedback. Will continue in IOP to prevent decompensation, increase healthy coping,and improve functioning. Narrative Note: []
--- NOTE | 2025-01-03 10:15 | BH.SGPN.GN ---
Behaviors/Verbalizations/Mental Status: []Client alert and oriented, casually dressed and groomed. Eye contact good. Motor activity appropriate. Speech within normal limits. Affect congruent, mood euthymic, Thoughts linear, logical, no signs of hallucinations or delusions Client Response/Progress/Benefit: [] pt responded well to session, contributing to discussion and engaged during the activity. Group identified the benefits of change which included: personal growth, increased confidence, improving mental health, progressing, and becoming resilient. Worked with the group to identify barriers to change and pt identified personal barriers as lack of self-confidence, lack of motivation, and procrastination. pt participated along with group in activity where they discussed the emotions related to change. Benefited from increased awareness and understanding of emotions, benefits, and barriers related to change. Will continue IOP tx to promote use of healthy coping skills, improve daily functioning, and reduce negative self-talk. Narrative Note: []
--- NOTE | 2025-01-03 11:10 | BH.SGPN.GN ---
Behaviors/Verbalizations/Mental Status: []Client alert and oriented, neatly dressed and groomed. Eye contact good. Motor activity appropriate. Speech within normal limits. Affect congruent, mood anxious and dysthymic. Thoughts linear, logical, no signs of hallucinations or delusions. Client Response/Progress/Benefit: [] Pt responded well to session, attentive throughout. Did well to actively listen and contributed when prompted as group worked to review change process. Pt worked with group to relate the strategies used to overcome barriers in the various stages of change and common emotions throughout. Pt identified a change they would like to make is ?Prioritizing my mental health and maintaining boundaries.? Pt identified currently being in the action stage for this change. Pt said communicating with a friend as one thing she can do to help pt get to the next stage. Appeared to benefit from identifying a change they want and how to progress. Pt will continue IOP tx to prevent decompensation, combat distorted thought patterns, and improve self-compassion. Narrative Note: []
--- NOTE | 2025-01-06 09:00 | BH.SGPN.GN ---
Behaviors/Verbalizations/Mental Status: [] Eye contact is good. Motor activity is appropriate. Appearance is casual. Speech is Appropriate. Mood is content. Affect is congruent. Thoughts are linear and logical. No evidence of psychosis. Reviewed daily check in sheet and no reports of suicidal ideations or intent. Client Response/Progress/Benefit: [] Pt was an active participant in group discussion. Attentive. Daily symptom tracker notes 0/5 for depression, 1/5 for anxiety, and 0/5 for agitation which indicates progress for pt. Shared with the group mental health wins including getting to group on time today when she thought she was going to be late. Expressed gratitude in being able to make it to treatment as attending IOP tx is a major source of support for her. Additional win is celebrating one week of sobriety after a recent relapse. Reflected on the importance of her sobriety in managing her mental health sx. Stressor noted as trying to contact [employer] to locate a missing package. Receptive of supportive feedback from group. Progress noted. Benefited from group support, encouragement, and feedback. Will continue in IOP to prevent decompensation, increase healthy coping, and maintain sobriety. Narrative Note: []
--- NOTE | 2025-01-06 10:10 | BH.SGPN.GN ---
Behaviors/Verbalizations/Mental Status: []Pt alert and oriented, casually dressed and groomed. Eye contact good. Motor activity appropriate. Speech within normal limits. Affect congruent, mood anxious and euthymic. Thoughts linear, logical, no signs of hallucinations or delusions. Client Response/Progress/Benefit: []Pt participated during small group discussions. Attentive during psychoeducation about defense mechanisms. Showed engagement during small group discussions and helped group identify which defense mechanisms were maladaptive, adaptive, or ?somewhere in the rogers.? Pt worked with small group on identifying how each defense mechanism can impact mental health and gave examples. ?Seemed to benefit from gaining awareness about the different defense mechanisms. Pt to continue IOP tx to prevent decompensation, increase use of healthy coping skills, and maintain sobriety from alcohol. Narrative Note: []
--- NOTE | 2025-01-06 11:10 | BH.SGPN.GN ---
Behaviors/Verbalizations/Mental Status: []Pt alert and oriented, casually dressed and groomed. Eye contact good. Motor activity appropriate. Speech within normal limits. Affect congruent, mood euthymic. Thoughts linear, logical, no signs of hallucinations or delusions. Client Response/Progress/Benefit: []Pt responded well to session, participating in activity and small group discussion. Group reviewed the rest of the defense mechanisms and discussed how these are adaptive, maladaptive, or somewhere in the rogers. Pt's defense mechanisms included suppression, denial, and sublimation. Pt listened to specialty trimmer teach different skills to help pt?s cope with or change their defense mechanisms. Pt appeared to benefit from gaining insight to the different defense mechanisms and learning coping skills. Pt will continue IOP tx to improve distress tolerance, increase healthy coping skills, and prevent decompensation.
--- NOTE | 2025-01-06 11:51 | PCM.BH.PN_ITS ---
Progress Note Progress Note: History of Present Illness: Sharri Villarreal is a 59 year old female who presents today for follow-up evaluation as part of her participation in the [facility] IOP. Patient reports that she has been doing much better with the use of clonidine. Feels like it significantly reduces cravings. Patient reports that her mood has been better. Has about 3 more weeks in programming. Feels like she is getting benefit with programming at this point. Has not had any alcohol in recent past, drank a week ago on Thursday. Sleep has been horrible the past few nights. Woke up numerous times and up for 20 minutes at a time. Doesn't like taking things for sleep. Otherwise has been doing largely well. Feels like lexapro and buspar continue to work well. Denies any SI HI or AVH. Current Psychiatric Medications: Lexapro 20 mg every day, Buspar 10 mg twice a day clonidine 0.1 mg twice daily as needed, Review of Systems: Constitutional Denies: fever(s), chills, change in weight or fatigue Eyes Denies: change in vision or blurry vision Ears, Nose, Mouth, Throat Denies: throat pain, neck pain or change in hearing Cardiovascular Denies: chest pain, palpitations or dyspnea Respiratory Denies: dyspnea, cough or wheezing Gastrointestinal Denies: abdominal pain, nausea, vomiting, diarrhea or constipation Genitourinary Denies: dysuria or urinary frequency Musculoskeletal Reports: back pain (chronic); Denies: neck pain, joint pain or muscle weakness Integumentary/Breast Denies: rash or new lesions Neurological Denies: headache(s), dizziness or confusion Endocrine Denies: fatigue or excessive sweating Hematologic/Lymphatic Denies: easy bruising or easy bleeding Allergic/Immunologic Denies: wheezing Vital Signs: [] Vital signs reviewed in the nurses notes and updated and the patient is deemed medically able to participate in the IOP. Mental Status Examination: Appearance casually dressed and appears appropriate for age Attitude cooperative Activity/Motor Behavior MSE activity/motor behavior finding no adventitious movements Speech regular rate, regular volume and regular prosody Mood Better Affect congruent Thought Process linear, logical and coherent Thought Content no delusions and no hallucinations Suicidal Ideation none Homicidal Ideation none Attention intact Concentration intact Sensorium/Orientation awake, alert and oriented x3 Memory/Cognition other (appropriate for stated age) Insight fair Judgement good Diagnoses: 1. Major depressive disorder, recurrent, severe without psychosis 2. PTSD 3. Generalized anxiety disorder 4. Alcohol Use Disorder 5. 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 Primary support and work issues. Plan: - The patient will continue in the IOP through behavioral health at [facility] as a structure, support, education and group therapy will hopefully prevent worsening the patient's symptoms specifically depression and anxiety and substance relapse which may lead to hospitalization. Patient is medically able to participate in this level of care at this time. Patient felt safe during the interview and is agreeable to inform staff if she needs to present to the emergency room. She will continue her medications of Lexapro and BuSpar and Suboxone as previous and we will continue clonidine 0.1 mg twice a day as needed. Risk benefits and possible side effects of medications were discussed and patient is agreeable to continue as prescribed. Continue to follow up with outpatient providers as scheduled.
--- NOTE | 2025-01-06 14:00 | BH.MDN_ITS ---
Multi-Disciplinary Note Note 30-min Individual: Time Started:: 12:05 Date: 01/06/25 Purpose of session/treatment goals addressed:: Purpose of session was to address goals 1 and 2 from MTP. Eye Contact:: Good Motor Activity:: Appropriate Appearance:: Casual Speech:: Appropriate Mood:: Euthymic Affect:: Congruent Thoughts:: Linear, Logical and No evidence of hallucinations/delusions noted Staff Interventions:: thought challenging, CBT techniques, strengths perspective, goal setting and taught coping skills Client Response:: Client reported she is starting to feel better about herself. Client stated she is working on accepting her past mistakes, recognizing she can't change the past. Client stated she beliefs starting to accept her past mistakes is helping her feel more positive about herself. Client reported she is doing better with keeping up with her housework. Client stated she is showering more frequently, going to AA meetings, and getting drug tested two times a week. Client reported it has been helpful that her outpatient cou nseling agency is drug testing her two times a week to help her stay sober since her recent relapse. Client reported she recognizes she can't let world events negatively impact her so much that it threatens her sobriety. Client stated she is trying to focus on what's in her control with world events. Client stated it is helpful when she talks about the situations that are bothering her so she gets those emotions out instead of trying to deal with it on her own. Client stated her goal is to make it to the community center to see if it would be a good fit for her to have additional support and socialization. 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 Risks/Concerns:: Client denies suicidal thoughts, plan, or intention to date. Client had recent alcohol relapse last week. Client is taking a medication that helps with her urges. Progress Toward Goals/Plan:: Progress noted with client maintaining sobriety for a week. Client stated using her healthy coping skills to manage psychosocial stressors. Client going to AA meetings on regular basis and now is getting drug tested two times a week for accountability at her outpatient counseling agency. Client working on focusing what's within her control. Client to continue IOP to increase healthy coping skills, challenge distorted thoughts, and prevent decompensation. Time Stopped:: 12:35
--- NOTE | 2025-01-09 09:00 | BH.SGPN.GN ---
Behaviors/Verbalizations/Mental Status: [] Eye contact is good. Motor activity is appropriate. Appearance is casual. Speech is Appropriate. Mood is euthymic. Affect is congruent. Thoughts are linear and logical. No evidence of psychosis. Reviewed daily check in sheet and no reports of suicidal ideations or intent Client Response/Progress/Benefit: [] Pt was an active participant in group discussion. Attentive. Pt has been discussing setting boundaries for the last week however has struggled with follow-through. Fearful that setting a boundary will cause conflict and possible loss of relationship. Today she reports the boundary has been set. Elaborated on the conversation and the way she communicated. Group also talked about importance of maintaining the boundary once set despite urges to revert make to people-pleasing behaviors. She shared other mental health wins and skills used as well. Progress noted. Benefited from group support, encouragement, and feedback. Will continue in IOP to prevent decompensation, stabilize mood, and increas healthy coping. Narrative Note: []
--- NOTE | 2025-01-09 10:10 | BH.SGPN.GN ---
Behaviors/Verbalizations/Mental Status: []Eye contact is fair. Motor activity is appropriate. Appearance is casual. Speech is Appropriate. Mood is content. Affect is congruent. Thoughts are linear and logical. No evidence of psychosis. Client Response/Progress/Benefit: [] Pt was an active participant in group discussions. Attentive during psychoeducation. Contributed during interactive discussions in which peers attempted to define crisis. Group identified crisis examples. Group also worked together to identify warning signs and unhealthy responses to crisis which included shutting down, isolation, avoidance, over-thinking, disordered eating, and self-harm. Pt identified top 3 warning signs as: stopping AA, stopping house work, and mood swings. Benefited from increased understanding of crisis and awareness of personal responses to crisis. Pt will continue IOP tx to prevent decompensation and relapse of alcohol use, improve self-confidence, and increase distress tolerance skills. ? Narrative Note: []
--- NOTE | 2025-01-09 11:10 | BH.SGPN.GN ---
Behaviors/Verbalizations/Mental Status: []Pt alert and oriented, appropriate grooming/appearance. Eye contact good. Motor activity appropriate. Speech within normal limits. Affect congruent, mood euthymic. Thoughts linear, logical, no signs of hallucinations or delusions. Client Response/Progress/Benefit: []Pt was an active participant in group discussions. Attentive during psychoeducation. In small group pt along with peers developed an active plan for their crisis warning signs. Pt identified three crisis warning signs as well as an action plan for each. One crisis warning sign was stopping house work. Pt identified strategies to help with this such as breaking chores down into smaller parts, focusing on one room at a time, and completing a task before watches tv.?Benefited from increased awareness of crisis warning signs and by developing crisis intervention strategies. Will continue in IOP to improve consistent follow through of goals, challenge negative thoughts, and prevent decompensation.
--- NOTE | 2025-01-10 09:00 | BH.SGPN.GN ---
Behaviors/Verbalizations/Mental Status: []Pt alert and oriented, neatly dressed and groomed. Eye contact good. Motor activity appropriate. Speech within normal limits. Affect congruent, mood content. Thoughts linear, logical, no signs of hallucinations or delusions. Reviewed pt?s symptom tracker, no risk for suicidal ideation, plan, or intent 01/10/25. Client Response/Progress/Benefit: [] Pt was an active participant in group discussions. Attentive. Able to identify mental health wins including staying sober, not having any cravings over the past week, and noticing her mental health symptoms decreasing. Pt's stressor today is she misses her youngest child who currently has a no contact order in place for pt. Pt and her child have a complicated relationship and pt is working on accepting this. Pt stated pt is feeling ?grateful this morning. Pt receptive to feedback from peers which pt reported was helpful. Progress noted. Benefited from group support, encouragement, and feedback. Will continue in IOP to reinforce healthy coping skills, reduce avoidance behaviors, and improve self-confidence. Narrative Note: []
--- NOTE | 2025-01-10 10:10 | BH.SGPN.GN ---
Behaviors/Verbalizations/Mental Status: [] Eye contact is good. Motor activity is appropriate. Appearance is casual. Speech within normal limits. Mood is anxious. Affect is congruent. Thoughts are linear and logical. No evidence of psychosis. Client Response/Progress/Benefit: [] Client was an active participant in group discussion and experiential activity. Attentive during psychoeducation on resilience. Participated in interactive discussion with peers on the definition of resilience. Group identified factors that impact resiliency which include; current mood, stress level, health, pain levels, sleep, and environment. Group also worked together to identify the benefits of being resilient and how it is related to mental health. Group believes resilience can increase adaptability, keep one moving towards goals, improve self-care, improve relationships, and decrease stress. Able to relate experiential activity of group juggle to topics of resilience. Benefited from increased awareness of resilience and the factors that contribute to building resilience. Will continue in IOP to prevent decompensation , increas healthy coping, and decrease negative thoughts. Narrative Note: []
--- NOTE | 2025-01-10 11:10 | BH.SGPN.GN ---
Behaviors/Verbalizations/Mental Status: [] Client alert and oriented, casually dressed and groomed. Eye contact good. Motor activity appropriate. Speech within normal limits. Affect congruent, mood euthymic. Thoughts linear, logical, no signs of hallucinations or delusions Client Response/Progress/Benefit: [] Client responded well to session AEB completing the resilience worksheet provided. Client actively participated in the discussion and worked cooperatively with group to identify strategies to enhance each of the components discussed. Client reports belief they already use resilience trait of ?move towards goals? Client discussed that they could work on accepting change is a part of living. Client seemed to benefit from discussing strategies for improving personal resilience and identifying resilience traits client already possesses. Will continue IOP tx to increase overall functioning and prevent decompensation. Narrative Note: []
--- NOTE | 2025-01-13 10:15 | BH.SGPN.GN ---
Behaviors/Verbalizations/Mental Status: []Pt alert and oriented, casually dressed and groomed. Eye contact good. Motor activity appropriate. Speech within normal limits. Affect congruent, mood euthymic,Thoughts linear, logical, no signs of hallucinations or delusions. Client Response/Progress/Benefit: [] Pt receptive to session AEB contributing to group discussion, as well as listening attentively to others, and taking notes. Worked with group to brainstorm the positive and negative aspects of stress on physical and mental health as well as the impact of distress on performance, relationships, and mental health. Pt shared their top stressors to be: lack of motivation, estrangement for her child, and maintaining sobriety. Shared when feeling overwhelmed with stress pt tends to shut down and give up. Benefited from increased awareness of positive and negative stress as well as how stress impact individuals. Will continue in IOP to prevent decompensation, increase distress tolerance skills, and improve daily functioning. ?? Narrative Note: []
--- NOTE | 2025-01-13 11:15 | BH.SGPN.GN ---
Behaviors/Verbalizations/Mental Status: [] Pt alert and oriented, casually dressed and groomed. Eye contact good. Motor activity appropriate. Speech within normal limits. Affect congruent, mood dysthymic. Thoughts linear, logical, no signs of hallucinations or delusions. Client Response/Progress/Benefit: [] Pt was an attentive participant in group discussions and actively engaged during experiential activity, doing well to regulate their emotions throughout the activity and work with peers. Attentive during psychoeducation on the 4 A's (Avoid, adapt, alter, accept) of coping with stress. Shared that they would benefit most from adapting her perspective and focusing on what's in her control and avoid adding additional stressors to her life. Was able to identify the connection between the experiential activity and utilization of stress management skills. Benefited from increased awareness of stress management strategies. Pt will continue IOP to prevent decompensation, increase healthy coping, and improve functioning. Narrative Note: []
--- NOTE | 2025-01-13 14:03 | BH.MDN_ITS ---
Multi-Disciplinary Note Note 30-min Individual: Time Started:: 12:05 Date: 01/13/25 Purpose of session/treatment goals addressed:: Purpose of session was to address goals 1 and 2 from MTP. Eye Contact:: Good Motor Activity:: Appropriate Appearance:: Casual Speech:: Appropriate Mood:: Euthymic Affect:: Full Thoughts:: Linear, Logical and No evidence of hallucinations/delusions noted Staff Interventions:: thought challenging, CBT techniques, strengths perspective, goal setting and taught coping skills Client Response:: Client reported she is doing good over the last week. client stated she has only had to take her alcohol urges pill two times in the last week. Client stated she sees this as progress because she's been able to manage her feelings more effectively. Client reported she is still going to AA meetings daily and is finding the support to be helpful. Client reported her outpatient agency is having her do random alcohol screenings to help with accountability. Client reported she has been irritable with some of her friends that she believes is taking advantage of her. Client stated a couple of her friends have been more demanding with wanting client to drive them places. Client reported she had offered to help drive a couple of her friends during the winter, but now feels like these friends are becoming more demanding. Client stated she decided to set a boundary with these friends by telling them she won't be giving them rides anymore. Client reported she is trying to decrease her people pleasing behavior. Client reported she has found it empowering to stand up for herself and set boundaries. Discussed strategies to help with maintenance of boundaries because this is an area client struggles in. client stated needs continued work improving follow through with assistant pressman. Client stated goal is to maintain boundaries set and to focus one her house hold chores. Risks/Concerns:: Denies suicidal ideation, plan, or intention to date. future oriented. Progress Toward Goals/Plan:: Progress noted AEB client reporting continued sobriety for two weeks following relapse. Progress also noted with client reporting starting to work on decreasing people pleasing by setting boundaries. Client struggles at times with putting others needs ahead of her own and ends up putting too much on her plate. Client to focus on doing thing she enjoys, working on her bedtime routine, and consistent follow through of goals. Plan is for client to continue IOP to increase consistent use of healthy coping skills, challenge distorted thoughts, and prevent decompensation. Time Stopped:: 12:35
--- NOTE | 2025-01-16 10:10 | BH.SGPN.GN ---
Behaviors/Verbalizations/Mental Status: []Patient was alert and oriented, casually dressed and groomed. Eye contact good. motor activity appropriate. speech within normal limits. Affect congruent, mood tired. Thoughts linear, logical, no signs of hallucinations or delusion. Client Response/Progress/Benefit: [] Pt participated in the group discussions AEB providing input, nodding and taking notes. Attentive during psychoeducation Goal Setting. Participated during the discussion on common barriers. Pt stated personal barriers to accomplishing goals include procrastination and lack of motivation. Group also identified benefits of goals as sense of purpose, improved self-confidence, more motivation for other goals, sense of accomplishment, and improved mental health. Pt identified personal benefits to goal setting. Benefited from increased awareness of mental health benefits of goals as well as psychoeducation on SMART goal criteria. Will continue in IOP to promote use of healthy coping skills, improve daily functioning, and reduce avoidance. Narrative Note: []
--- NOTE | 2025-01-16 11:10 | BH.SGPN.GN ---
Behaviors/Verbalizations/Mental Status: [] Pt alert and oriented. Appearance is casual. Eye contact good. Motor activity appropriate. Speech within normal limits. Affect is dysthymic. Mood is congruent. Thoughts linear, logical, no signs of hallucinations or delusions. Client Response/Progress/Benefit: [] Pt was engaged during discussion and experiential activity. Completed the worksheet challenging them to develop a personal SMART goal. Pt chose a SMART goal to shampoo carpet by 01/28/25. Believes this goal will benefit them being through completing long-ignored task. Identified obstacles such as motivation.Benefited from this group by developing a short-term SMART goal related to mental health. Will continue IOP to prevent decompensation, increase healthy coping, and improve functioning. Narrative Note: []
--- NOTE | 2025-01-17 09:00 | BH.SGPN.GN ---
Behaviors/Verbalizations/Mental Status: []Pt alert and oriented, casually dressed and groomed. Eye contact good. Motor activity appropriate. Speech within normal limits. Affect congruent, mood sad. Thoughts linear, logical, no signs of hallucinations or delusions. Reviewed pt?s symptom tracker, no risk for suicidal ideation, plan, or intent /. Client Response/Progress/Benefit: [] Pt was an active participant in group discussions. Attentive. Able to identify mental health wins including continuing to be sober despite having triggers and giving herself credit for the things she is doing well. Pt's stressor today is ?I messed up yesterday and got yelled at by my ex-.? Pt stated pt is feeling down? this morning. Pt receptive to feedback from peers which pt reported was helpful. Progress noted. Benefited from group support, encouragement, and feedback. Will continue in IOP tx to prevent relapse, improve daily functioning, and increase internal motivation. ? Narrative Note: []
--- NOTE | 2025-01-17 10:10 | BH.SGPN.GN ---
Behaviors/Verbalizations/Mental Status: [] Eye contact is good. Motor activity is appropriate. Appearance is casual. Speech is Appropriate. Mood is content. Affect is congruent. Thoughts are linear and logical. No evidence of psychosis Client Response/Progress/Benefit: [] Pt responded well to session AEB contributing to small group discussion, taking notes, and listening attentively to others. Group defined anger and discussed the benefits of managed anger and anger as a secondary emotion. Group shared perspective on benefits of anger as advocating for self and getting needs met, a means to internal change, as well as a catalyst for change. Pt engaged in group discussion on common triggers for anger. Identified feeling taken advantage of or disrespected as an anger trigger. Appeared to benefit from increased knowledge of the anger cycle as well as personal triggers. Will continue IOP to increase healthy coping, prevent decompensation, and improve functioning. Narrative Note: []
--- NOTE | 2025-01-17 11:10 | BH.SGPN.GN ---
Behaviors/Verbalizations/Mental Status: []Client alert and oriented, casually dressed and groomed. Eye contact fair. Motor activity appropriate. Speech within normal limits. Affect congruent, mood anxious. Thoughts linear, logical, no signs of hallucinations or delusions. Client Response/Progress/Benefit: []Pt was engaged throughout AEB contributing to group discussion and activity. Group processed how they each responded to the intentionally difficult task they were asked to completed and described the physical and emotional anger cues experienced throughout, as well as strategies used for managing these frustrations. Pt contributed as group brainstormed healthy coping skills for better managing anger which included: music, walking/exercise, taking a break, healthy venting, avoiding unnecessary stressors, reflection, and journaling. Pt cooperative with working in small groups to identify what strategy wants to work on to help interrupt personal anger cycle. Pt shared she learned today It's ok to talk about feeling angry. Pt to continue IOP to promote use of healthy coping skills, improve view of self, and prevent decompensation.
--- NOTE | 2025-01-17 17:02 | BH.MDN ---
Multi-Disciplinary Note Note 30-min Individual: Time Started:: 12:10 Date: 01/17/25 Purpose of session/treatment goals addressed:: Purpose of session was to address goals 1 and 2 from MTP. Eye Contact:: Fair Motor Activity:: Appropriate Appearance:: Casual Speech:: Appropriate Mood:: Depressed Affect:: Constricted Thoughts:: Linear, Logical and No evidence of hallucinations/delusions noted Staff Interventions:: thought challenging, CBT techniques, strengths perspective, goal setting and other (boundaries) Client Response:: Client reported feeling down today because she made a mistake last week by going against her original boundary. Client stated she agreed to give her friend a ride that she previously had told she would no longer give car rides to this person. Client reported this became a problem because she ended up being late to watch her granddaughter. Client stated her granddaughter's guardian, which is client's ex-, yelled at me. Client stated what bothers her the most is that he yelled at her in front of her granddaughter. Client reported she does not want her granddaughter to be exposed to yelling and does not think it is okay to be put down in front of her granddaughter. Client stated she is thinking about saying something to her ex but is hesitant because he has the power on whether she can see her granddaughter. Through discussion in reflection client recognizes she put herself in this position by choosing to not stick with her boundaries and not giving other people rides at this time. Client stated the reason she was late is because the person she was picking up did not come out on time. Client reported she needs to continue to work on being more consistent with boundaries she sets. Client receptive to thought challenging from this mistake. Client made goal to focus on getting one chore done at house, mexican food cook, and to keep to her bedtime routine. Risks/Concerns:: Denies suicidal ideation, plan, or intention. Reports continued sobriety after her relapse 3 weeks ago. Progress Toward Goals/Plan:: Progress variable. Client mood often dictated/changed by current psychosocial stressor. Client reporting feeling more down and depressed following recent argument. client does struggle with ruminating on situations that often lead to self deprecating thoughts. Client has increased awareness this is the cycle she falls in which can lead her to use unhealthy coping skills. Client stated she does see progress with being able to bounce back from these negative situations. Client has maintained sobriety for the last 3 weeks. Plan is for client to continue IOP to maintain boundaries, increase consistent use of healthy coping skills, and prevent decompensation. Time Stopped:: 12:40
--- NOTE | 2025-01-20 09:05 | BH.SGPN.GN ---
Behaviors/Verbalizations/Mental Status: [] Eye contact is good. Motor activity is appropriate. Appearance is casual. Speech is Appropriate. Mood is euthymic. Affect is full. Thoughts are linear and logical. No evidence of psychosis. Reviewed daily check in sheet and no reports of suicidal ideations or intent. Client Response/Progress/Benefit: [] Pt participated at times during the group discussion. Attentive. Daily symptom tracker shows no significant distress. Overall mood and functioning are reported to be ?better?. Shared with the group that she had a day off from work yesterday. ? First day off in 6 months?. Enjoyed the day noting she feels ?rejuvenated?. Gave herself permission to ? do nothing? . Self-care. Insight that she ?needed this?. Peer discussion on burnout which she agreed with however is unlikely to follow through with. Mentioned at times that she ?likes to work everyday? and feels an obligation. Primary source of purpose/meaning as well as distraction. Progress noted. Benefited from group support, encouragement, and feedback. Will continue in IOP to prevent decompensation, increase healthy coping, and improve functioning. Narrative Note: []
--- NOTE | 2025-01-20 10:10 | BH.SGPN.GN ---
Behaviors/Verbalizations/Mental Status: [] Client alert and oriented, casually dressed and groomed. Eye contact good. Motor activity appropriate. Speech within normal limits. Affect congruent, mood content. Thoughts linear, logical, no signs of hallucinations or delusions. Client Response/Progress/Benefit: [] Pt responded well to session AEB sharing and listening attentively to others. Group provided examples of benefits of having social support, including: validation, get assistance, and accountability. Pt also participated in group discussion regarding the barriers to accessing support identifying examples to include: negative thinking, lack of communication, and lack of trust. Personal example identified as not communicating needs or setting boundaries. Pt participated in experiential activity illustrating the impact communication, boundaries, and patience play in creating healthy support systems. Pt appeared to benefit from increased knowledge of the benefits of social support and greater self-awareness. Pt to continue IOP to improve distress tolerance, increase consistent use of healthy coping skills, and prevent decompensation. Narrative Note: []
--- NOTE | 2025-01-20 11:10 | BH.SGPN.GN ---
Behaviors/Verbalizations/Mental Status: []Client alert and oriented, casually dressed and groomed. Eye contact good. Motor activity appropriate. Speech within normal limits. Affect congruent, mood content. Thoughts linear, logical, no signs of hallucinations or delusions. Client Response/Progress/Benefit: [] Pt participated throughout AEB contributing to discussion, providing examples, and taking notes. Pt provided input during discussion on the types of support our supports can provide. Pt able to identify current support system and barriers that get in the way of using supports. Pt reported after identifying what type of supports pt receives, pt gained awareness that pt could benefit from more emotional support by asking her supports to talk more often. Pt seemed to benefit from identifying the type of support pt needs to work on improving. Pt recommended to continue IOP tx to promote mood stability, reduce negative thinking patterns, and improve daily functioning. Narrative Note: []
== END 2025-01-20 23:59 ==
LOC: BHIOP 07:16
PROVIDERS: PCP Family Medicine; Referring Provider Psychiatry & Neurology Psychiatry; Visit Provider Psychiatry & Neurology Psychiatry
DX: F33.2 Major depressive disorder, recurrent severe without psychotic features (principal); F43.10 Post-traumatic stress disorder, unspecified; F41.1 Generalized anxiety disorder; F10.90 Alcohol use, unspecified, uncomplicated; F12.91 Cannabis use, unspecified, in remission; F15.11 Other stimulant abuse, in remission; F14.11 Cocaine abuse, in remission; Z79.899 Other long term (current) drug therapy
CPT/HCPCS: S9480; 90832; 90834; 90853

== ENCOUNTER 2025-01-23 07:34 | Outpatient (RCR) | payer MEDICARE, MEDICAID, SELFPAY ==
[2025-01-21 02:36] VITALS: BP 170/90; PULSE 66
== END 2025-02-03 12:29 | disposition home or self-care (01) ==
LOC: BHIOP 07:34
PROVIDERS: PCP Family Medicine; Referring Provider Psychiatry & Neurology Psychiatry; Visit Provider Psychiatry & Neurology Psychiatry
DX: F33.2 Major depressive disorder, recurrent severe without psychotic features (principal); F43.10 Post-traumatic stress disorder, unspecified; F41.1 Generalized anxiety disorder; F10.90 Alcohol use, unspecified, uncomplicated; F15.91 Other stimulant use, unspecified, in remission; F14.91 Cocaine use, unspecified, in remission; F11.91 Opioid use, unspecified, in remission
CPT/HCPCS: S9480; 90832; 90834; 90853

== ENCOUNTER 2025-03-05 18:40 | Inpatient (IN) | payer MEDICARE, MEDICAID, SELFPAY ==
[2025-03-05 18:41] VITALS: BP 147/100; PULSE 101; RESP 18; TEMP 37; O2SAT 97; BMI 33.3
--- NOTE | 2025-03-05 19:12 | EX.ED.SAOD ---
HPI History of Present Illness Chief Complaint: ETOH Intox Informant: patient Narrative Narrative: 59-year-old female presenting to the emergency room requesting detox from alcohol. Patient states that she has been on Suboxone for due to opioid addiction for about 6 years. She states in November she went through detox for alcohol but unfortunately shortly after began to have problems with one of her children. This led to her drinking margaritas throughout the day and night. She states that she is tired of dry heaving in the morning diarrhea and always wondering about her next drink. She states that she is exhausted from it. She states her last drink was yesterday 2300 hrs. She denies any pending legal issues. She is not currently working. She states she would have come in earlier today but she was babysitting her granddaughter. [facility] Medical History Alcohol use disorder Tobacco use Alcohol abuse with physiological dependence Substance abuse Depression Kidney stones Hypertension Generalized anxiety disorder PTSD (post-traumatic stress disorder) Major depressive disorder, recurrent severe without psychotic features Wears dentures Wears glasses Post-menopausal Bladder disease Hearing loss, left Hearing loss, right Osteoporosis Smoker Migraines Anxiety Hepatitis Irregular heart beat Drug abuse Duodenitis Home Medications ?Medication ?Instructions ?Recorded ?Last Taken ?Type buprenorphine 8 mg-naloxone 2 mg 1 ea sublingual BID 07/13/24 11/10/24 History sublingual film clonidine HCl 0.1 mg tablet 0.1 mg PO BID PRN anxiety #60 tabs 12/02/24 Unknown Rx escitalopram oxalate 20 mg tablet 20 mg PO DAILY 30 days #30 tabs 12/02/24 Unknown Rx (Lexapro) buspirone 10 mg tablet 10 mg PO BID 30 days #60 tabs 01/06/25 Unknown Rx Allergy/AdvReac Type Severity Reaction Status Date / Time No Known Allergies Allergy Verified 03/05/25 18:41 Family History Mother Breast cancer Heart disease Hypertension Diabetes Father Cancer pt is unsure what kind of cancer Heart disease Hypertension Diabetes Sister Breast cancer Sister Ovarian cancer Surgical History S/P vaginal hysterectomy Hx of hand surgery History of cataract surgery History of tubal ligation History of umbilical hernia repair Social History adopted: No household members: none number of children: 6 current occupational status: unemployed pets and animals: Yes pets and animals: cat(s) sexually active: No Smoking Status: Heavy Smoker (>10/day) alcohol intake: former details: pt sober since 2020 caffeine: Yes seatbelt use: always do you feel safe at home: Yes ROS ROS ED Constitutional Constitutional ED: Denies chills or weight loss Eyes Eyes: Denies change in vision or diplopia ENT ENT ED: Denies ear pain, rhinorrhea or sore throat Cardiovascular Cardiovascular: Reports palpitations; Denies chest pain, orthopnea or racing heartbeat Respiratory/Chest Respiratory/Chest: Denies cough, dyspnea or orthopnea Gastrointestinal Gastrointestinal: Reports diarrhea and nausea; Denies abdominal pain or vomiting Genitourinary Genitourinary ED: Denies dysuria, hematuria or urinary frequency Musculoskeletal Musculoskeletal: Denies arthralgias or myalgias Integumentary Denies abscess or rash Neurologic Neurologic: Reports headache(s); Denies weakness Psychiatric Psychiatric: Reports anxiety and depression; Denies suicidal ideation or suicidal thoughts Endocrine Endocrinology: Denies polydipsia, polyphagia or polyuria Allergic/Immunologic Allergic/Immunologic ED: Denies mouth swelling, tongue swelling or urticaria EXAM Physical Exam Const Vital Signs: 03/05/25 18:41 Temperature 98.6 F Temperature Source Oral Pulse Rate 101 H Respiratory Rate 18 Blood Pressure 147/100 H Blood Pressure Mean 115 Pulse Ox 97 Oxygen Delivery Method Room Air Positive well nourished and well developed General Appearance ED: well developed HEENT Reports normocephalic, head/scalp atraumatic and moist mucous membranes Eyes PERRL and EOMs intact bilaterally Neck no lymphadenopathy, supple and no JVD Resp normal respiratory effort and clear to auscultation bilaterally Cardio regular rate, regular rhythm and no murmurs Rate: tachycardic GI normal to inspection, nondistended, normoactive bowel sounds and non-tender Palpation: soft Back/Spine no CVA tenderness and normal ROM Extremity normal to inspection General Extremety ED: Negative for edema General Extremity: Negative for edema Neuro oriented x3 and CN's II-XII intact bilaterally Sensorium / Orientation: alert Motor Exam: strength 5/5 throughout Psych thought process normal Psych Narrative: No hallucinations. Attitude: No belligerent, No agitated, No aggressive and No hostile Mood & Affect: depressed, anxious and tearful Skin no rashes or lesions noted and no wounds MDM MDM MDM Narrative Medical decision making narrative: Differential diagnosis includes alcohol withdrawal alcohol addiction polysubstance abuse anxiety depression dehydration hepatitis coagulopathy ED addiction labs will be obtained. I will review them and speak with the hospitalist regarding potential for admission to ramp program I did speak with the social media coordinator for the department who will be in to discuss with the patient. History & Record Review Discussion w/independent historian: Patient Management Discussion w/another healthcare provider: Hospitalist (Dr Cortez) and lawn maintenance worker/Case management Discharge Plan Triage Chief Complaint: ETOH Intox ED Provider: Christian Montelongo Dx/Rx/DC Orders Prescriptions: No Action clonidine HCl 0.1 mg tablet 0.1 mg PO BID PRN (Reason: anxiety) Qty: 60 1RF escitalopram oxalate [Lexapro] 20 mg tablet 20 mg PO DAILY 30 Days Qty: 30 2RF buprenorphine-naloxone 8-2 mg film 1 ea sublingual BID buspirone 10 mg tablet 10 mg PO BID 30 Days Qty: 60 2RF Rx Instructions: 1 po bid Primary Care Provider: Earnest Rodriguez Referrals: Earnest Rodriguez MD [Primary Care Provider] - Print Language: Azeri
[2025-03-05] MEDS: Ondansetron ODT 4 MG Tablet PO (19:24)
[2025-03-05 19:29] LABS: Absolute Neutrophil Count 3.9 X10^3/uL (2.0-7.7); Basophil# 0.06 X10^3/uL; Basophil% 0.8 % (0-1); Eosinophil# 0.31 X10^3/uL; Eosinophils% 4.2 % (0-5); Hematocrit 45.2 % (37-47); Hemoglobin 15.7 g/dL (12.0-15.0); Lymphocyte % 35.1 % (19-41); Mean Corp Hgb Conc 34.7 g/dL (32-36); Monocyte% 6.8 % (0-10); NRBC Flagged by Analyzer 0 % (0-5); Neutrophil # 3.91 X10^3/uL (2.7-7.7); Neutrophil % 52.8 % (47-70); Platelet Count 333 K/mm3 (150-450); RBC Distribution Width CV 13.4 % (11.6-14.6); RBC Distribution Width SD 47.1 fl (35.1-43.9); Red Blood Count 4.76 M/mm3 (4.2-5.4); White Blood Count 7.4 K/mm3 (4.4-11.0)
[2025-03-05 19:38] LABS: International Normalized Ratio 1.1; Prothrombin Time (Protime)PT. 13.9 SECONDS (11.7-14.9)
--- NOTE | 2025-03-05 19:40 | CM.ED ---
Social Work: Date of referral: 03/05/25 Reason for referral: Etoh detox/depression reported Referred by: ED doctor Patient provided consent to social work visit. Patient has been on Suboxone for 6 years. Patient reported she had been refraining from alcohol use/abuse however in September, her 22 year old daughter, lyndsey Muro, had top surgery, had requested that patient be there for the surgery and patient missed it. Patient reported she isn't able to drive long distances and wasn't able to get a ride and patient's daughter/now son told patient that he hated her and hasn't spoken to patient since. Patient has reached out her son with no response. Patient drinks 2 bottles of Margaritas (premix from the store) per day. Patient previously involved with [facility] and stated she just finished the [facility] IOP where patient had been going 3 days per week which patient described as fantastic. Patient reported she loved the program. Patient hasn't held employment since . venetian blind worker inquired as to any extra supports/resources patient may need and patient declined the need for any additional supports/resources at this time. venetian blind worker provided emotional support and encouragement. Faiza Cabezas, GRANITE FABRICATOR, CREDENTIALING ASSISTANT
[2025-03-05 19:48] LABS: ALB/GLOB Ratio 1.7 RATIO (0.9-2.4); AST(SGOT) 22 U/L (<=31); Alanine Aminotransfer ALT/SGPT 18 U/L (<=34); Albumin, Serum 4.3 g/dL (3.5-5.0); Alkaline Phosphatase 135 U/L (35-104); Anion Gap 12 (5-15); BUN 6 mg/dL (4-19); BUN/Creat Ratio 10.6 RATIO (10-20); Calcium,Total 9.3 mg/dL (7.6-11.0); Carbon Dioxide 27.2 mmol/L (21.0-32.0); Chloride 102 mmol/L (98-108); EST Glomerular Filtration Rate 103 (>60); Estimated Creatinine Clearance 104.47 ml/min (50-250); Globulin 2.6 g/dL (2.2-4.2); Glucose 97 mg/dL (70-99); Potassium 3.6 mmol/L (3.3-5.1); Protein, Total 6.9 g/dL (5.9-8.4); Sodium Level 141 mmol/L (133-145); Total Bilirubin 0.48 mg/dL (0.00-1.30)
[2025-03-05 19:53] LABS: Alcohol, Blood (Medical)-Serum 38.6 mg/dL (<=10.0)
[2025-03-05 21:18] LABS: Amphetamine Urine NEGATIVE (<1000 ng/mL); Barbiturate Urine NEGATIVE (< 200 ng/mL); Benzodiazepine Urine NEGATIVE (< 200 ng/mL); Buprenorphine Urine PRESUMPTIVE POSITIVE (< 200 ng/mL); Cocaine Urine NEGATIVE (< 300 ng/mL); Fentanyl, Urine NEGATIVE; Methadone Urine NEGATIVE (< 300 ng/mL); Opiates Urine NEGATIVE (< 300 ng/mL); Oxycodone, Urine NEGATIVE (< 100 ng/mL); PCP Urine NEGATIVE (< 25 ng/mL); THC Urine NEGATIVE (< 50 ng/mL)
--- NOTE | 2025-03-05 21:24 | PCM.HP.STD ---
[facility] - General General Date of Admission: 03/05/25 Date of Service: 03/05/25 Chief Complaint: Wants Help with EtOH Detox. HPI Narrative KAMI WATTS, is a 59 F with a past medical history of essential hypertension; currently not on daily treatment, obesity; with a BMI of 33.3 this admission, tobacco abuse, history of depression with anxiety and PTSD; on escitalopram, buspirone on clonidine as needed twice daily, history of opiate abuse; on buprenorphine-naloxone SL twice daily for the past ~6 years, history of hepatitis C; with patient having completed course of antiviral treatment, history of duodenitis, history of migraine headaches, history of renal calculi, history of prolapsed bladder, history of umbilical hernia; s/p repair, history of vaginal hysterectomy, history of tubal ligation, history of cataract surgery, osteoporosis; on ergocalciferol weekly, OA and history of recent admission here from November 10, 2024 to November 12, 2024 for treatment of alcohol detox in the setting of previous admission in July 13, 2024 to July 16, 2024 for treatment of alcohol detox who now once again re-presents to [facility] ER complaining of wanting help with EtOH detoxification. Ms. Watts reports she recently relapsed into her alcohol abuse because she is having difficulties with her daughter which acutely heightened her chronic anxiety and depression caused her to drink jenny mix throughout the day and night - but she denies SI or HI. She states her last alcoholic drink was at ~11 PM on the evening of March 04, 2025 resulting in her waking up having diarrhea and severe fatigue and craving her next drink. She denies abusing other illicit drugs, other toxic ingestions or recent illness. She states she was planning to come in earlier today but she was babysitting her granddaughter so she could not seek medical attention at that time apparently. She admits to being exhausted from trying to maintain her addiction but she denies associated fever, chills, nausea, vomiting, chest pain, headache, seizure activity, hallucinations or shortness of breath. In the ER she was noted to have a BLAIRE of 38.6 mg/dL consistent with Impending EtOH Withdrawal in the setting of Chronic EtOH Abuse causing a greater pattern of serial readmission for the same issue indicating the seeming futility and ineffectiveness of this strategy of treatment. Nevertheless, she was admitted to the general medical floor for ongoing care for a stay that is expected to extend beyond 2 midnights. [facility] Medical History Alcohol use disorder Tobacco use Alcohol abuse with physiological dependence Substance abuse Depression Kidney stones Hypertension Generalized anxiety disorder PTSD (post-traumatic stress disorder) Major depressive disorder, recurrent severe without psychotic features Wears dentures Wears glasses Post-menopausal Bladder disease Hearing loss, left Hearing loss, right Osteoporosis Smoker Migraines Anxiety Hepatitis Irregular heart beat Drug abuse Duodenitis Home Medications ?Medication ?Instructions ?Recorded ?Last Taken ?Type buprenorphine 8 mg-naloxone 2 mg 1 ea sublingual BID 07/13/24 11/10/24 History sublingual film clonidine HCl 0.1 mg tablet 0.1 mg PO BID PRN anxiety #60 tabs 12/02/24 Unknown Rx escitalopram oxalate 20 mg tablet 20 mg PO DAILY 30 days #30 tabs 12/02/24 Unknown Rx (Lexapro) buspirone 10 mg tablet 10 mg PO BID 30 days #60 tabs 01/06/25 Unknown Rx ergocalciferol (vitamin D2) 1,250 1,250 mcg PO QWEEK 03/05/25 Unknown History mcg (50,000 unit) capsule Allergy/AdvReac Type Severity Reaction Status Date / Time No Known Allergies Allergy Verified 03/05/25 18:41 Family History Mother Breast cancer Heart disease Hypertension Diabetes Father Cancer pt is unsure what kind of cancer Heart disease Hypertension Diabetes Sister Breast cancer Sister Ovarian cancer Surgical History S/P vaginal hysterectomy Hx of hand surgery History of cataract surgery History of tubal ligation History of umbilical hernia repair Social History adopted: No household members: none number of children: 6 current occupational status: unemployed pets and animals: Yes pets and animals: cat(s) sexually active: No Smoking Status: Heavy Smoker (>10/day) alcohol intake: former details: pt sober since 2020 caffeine: Yes seatbelt use: always do you feel safe at home: Yes ROS ROS Narrative Review of Systems: Constitutional: Patient denies fever or chills. Eyes: Patient denies change in vision or discharge from eyes. ENT: Patient denies runny nose, sore throat or ear pain. Resp: Patient denies shortness of breath or cough. CV: Patient admits to transient palpitations but she denies chest pain, heart racing or lower extremity edema. GI: Patient admits to diarrhea and nausea but she denies abdominal pain or vomiting as per HPI. : Patient denies dysuria, hematuria urinary frequency. MSK: Patient admits to generalized weakness but she denies arthralgias or myalgias. Skin: Patient denies rash, abscess, wounds or jaundice. Psych: Patient admits to anxiety and depression but she denies SI or HI. Neuro: Patient denies headache, paresthesias or focal neurologic deficits. Allergy: Patient denies lip swelling, tongue swelling or urticaria. Hematology: Patient denies easy bleeding or easy bruisability. Endocrinology: Patient denies polyuria, polydipsia, polyphagia or heat/cold intolerance. 14 point ROS otherwise negative save for positives noted above in HPI. Vital Signs Vital Signs Vital Signs: 03/05/25 18:41 Temperature 98.6 F Temperature Source Oral Pulse Rate 101 H Respiratory Rate 18 Blood Pressure 147/100 H Blood Pressure Mean 115 Pulse Ox 97 Oxygen Delivery Method Room Air Weight Weight: 188 lb Body Mass Index (BMI) 33.3 Physical Exam Const alert, oriented x3 and no apparent distress Constitutional Narrative: Obese. General Appearance: cooperative HEENT normocephalic, head/scalp atraumatic, hearing grossly normal bilaterally and moist oral mucous membranes Eyes PERRL and EOMs intact bilaterally Neck no lymphadenopathy, supple and no JVD Resp normal respiratory effort, no retractions, no use of accessory muscles and clear to auscultation bilaterally Cardio regular rate and regular rhythm GI normal to inspection, nondistended, normoactive bowel sounds, soft to palpation, non-tender and non-distended Extremity normal to inspection, full ROM and no clubbing, cyanosis or edema Skin Skin Narrative: Patient has no evidence of rash, abscess, wounds or jaundice. Neuro oriented x3, CN's II-XII intact bilaterally, moves all extremities and no focal motor deficits Sensorium / Orientation: awake, alert, oriented to person, oriented to place and oriented to time Speech: speech normal Psych Mood & Affect: depressed and anxious Results Medical Records Data Attestation: I reviewed the patient's medical records Lab / Micro Data Attestation: I reviewed the patient's lab results. 03/05/25 19:20 03/05/25 19:20 Labs: Laboratory Results - last 24 hr 03/05/25 19:20: WBC 7.4, RBC 4.76, Hgb 15.7 H, Hct 45.2, MCV 95.0, MCH 33.0 H, MCHC 34.7, RDW Std Deviation 47.1 H, RDW Coeff of Mamta 13.4, Plt Count 333, MPV 9.0, Immature Gran % (Auto) 0.300, Neut % (Auto) 52.8, Lymph % (Auto) 35.1, [place] % (Auto) 6.8, Eos % (Auto) 4.2, Baso % (Auto) 0.8, Absolute Neuts (auto) 3.9, Absolute Lymphs (auto) 2.60, Nucleated RBC % 0, PT 13.9, INR 1.1, Sodium 141, Potassium 3.6, Chloride 102, Carbon Dioxide 27.2, Anion Gap 12, BUN 6, Creatinine 0.60 L, Estim Creat Clear Calc 104.47, Est GFR (MDRD) Non-Af 103, BUN/Creatinine Ratio 10.6, Glucose 97, Calcium 9.3, Total Bilirubin 0.48, AST 22, ALT 18, Alkaline Phosphatase 135 H, Total Protein 6.9, Albumin 4.3, Globulin 2.6, Albumin/Globulin Ratio 1.7, Ethyl Alcohol 38.6 H 03/05/25 20:10: Urine Opiates Screen NEGATIVE, U Buprenorphine Qual PRESUMPTIVE POSITIVE, Ur Oxycodone Screen NEGATIVE, Urine Methadone Screen NEGATIVE, Urine Fentanyl Screen NEGATIVE, Ur Barbiturates Screen NEGATIVE, Ur Phencyclidine Scrn NEGATIVE, Ur Amphetamines Screen NEGATIVE, U Benzodiazepines Scrn NEGATIVE, Urine Cocaine Screen NEGATIVE, U Cannabinoids Screen NEGATIVE Assessment & Plan Assessment/Plan (1) Alcohol withdrawal: QUALIFIERS: Complication of substance-induced condition: with unspecified complication Qualified Code(s): F10.939 - Alcohol use, unspecified with withdrawal, unspecified (2) Alcohol use disorder: (3) PTSD (post-traumatic stress disorder): (4) Generalized anxiety disorder: (5) Major depressive disorder, recurrent severe without psychotic features: (6) History of drug abuse: (7) Tobacco abuse: (8) Obesity (BMI 30.0-34.9): PLAN: Plan 1. BLAIRE of 38.6 mg/dL consistent with Impending EtOH Withdrawal in the setting of Chronic EtOH Abuse causing a greater pattern of serial readmission - Admit to general medical floor for treatment under the EtOH detoxification protocol primarily consisting of phenobarbital taper. EtOH cessation will be strongly encouraged. Check stool studies with patient having diarrhea present on admission likely due to EtOH withdrawal. Finally, we will consult case management see this patient on rounds in the a.m. further recommendations with help appreciated in advance. 2. Acute exacerbation of chronic depression with anxiety in the setting of a history of PTSD; on escitalopram, buspirone on clonidine as needed twice daily complicating #1 - Maintain home regimen. 3. History of opiate abuse; on buprenorphine-naloxone SL twice daily for the past ~6 years adding to the medical complexity of #1 & #2 - Resume current therapy. 4. Tobacco Abuse compounding #1 - #3 - Tobacco Cessation will be strongly encouraged with nicotine patch offered to control cravings. 5. Obesity; with a BMI of 33.3 this admission adding to the burden of disease outlined from #1 - #4 - Weight loss will be recommended. Check TSH. This complicates her case and may hamper recovery. 6. Essential hypertension; currently not on daily treatment - Give hydralazine IV prn for systolic blood pressure > 160 mmHg. 7. History of hepatitis C; with patient having completed course of antiviral treatment - Noted. 8. History of duodenitis - Noted with no evidence of recurrence. 9. History of migraine headaches - Noted no complaints of headache at this time. 10. History of renal calculi - Noted. 11. History of prolapsed bladder - Noted. 12. History of umbilical hernia; s/p repair - Noted. 13. History of vaginal hysterectomy; with ovaries still present - Noted. 14. History of tubal ligation - Noted for the sake of completeness. 15. History of cataract surgery - Noted. 16. Osteoporosis - Stable on vitamin D3 supplementation. 17. OA - Give ibuprofen prn pain or fever. 18. DVT prophylaxis - Heparin 5,000U sq BID. Total time: Approximately (but not less than) 75 minutes. Charges/Coding Visit Charges Inpatient E&M: 95157 Init Hosp L3
[2025-03-05 21:28] VITALS: BP 114/71; PULSE 80; RESP 16; TEMP 37; O2SAT 99
[2025-03-05 21:50] VITALS: BP 114/71
[2025-03-05 22:32] VITALS: BMI 33.1
[2025-03-05 22:33] LABS: Magnesium 1.8 mg/dL (1.5-2.2)
[2025-03-05 22:47] VITALS: BP 117/74; PULSE 80; RESP 16; TEMP 36.7; O2SAT 94
[2025-03-05 22:51] LABS: FOLATES,SERUM (FOLIC ACID) 4.91 ng/mL (4.60-34.80)
[2025-03-05] MEDS: Phenobarbital 32.4 MG Tablet 64.8 MG PO (22:57)
[2025-03-05] MEDS: 0.9% Normal Saline (1000mL) 1,000 ML 100 ML IV (22:58)
[2025-03-05] MEDS: 0.9% Saline Lock 10 ML Syringe IV (22:58)
[2025-03-05] MEDS: buprenorphine HCL 8 MG TAB.SUBL SL (23:46)
[2025-03-05] MEDS: Heparin Injection (Vial) 5,000 UNIT/ML VIAL 5000 UNIT SC (23:46)
[2025-03-05] MEDS: busPIRone 5 MG Tablet 10 MG PO (23:47)
[2025-03-05 23:52] LABS: Thyroid Stim Hormone (TSH) 0.908 uIU/mL (0.300-4.200); Vitamin B12 615 pg/mL (180-914)
[2025-03-06] MEDS: Phenobarbital 32.4 MG Tablet 64.8 MG PO ×6 (02:59→23:23)
[2025-03-06 03:00] VITALS: BP 132/88; PULSE 74; RESP 16; TEMP 36.7; O2SAT 92
[2025-03-06 06:00] VITALS: BMI 33.1
[2025-03-06 06:15] LABS: Absolute Lymphocyte Count 2.01 X10^3/uL (0.83-4.51); Absolute Neutrophil Count 2.3 X10^3/uL (2.0-7.7); Basophil# 0.05 X10^3/uL; Eosinophil# 0.25 X10^3/uL; Hematocrit 40.4 % (37-47); Hemoglobin 13.5 g/dL (12.0-15.0); Lymphocyte # 2.01 X10^3/ul (0.83-4.51); Lymphocyte % 40.3 % (19-41); Mean Corp Hgb Conc 33.4 g/dL (32-36); Mean Corpuscular Hgb 32.6 pg (27.0-32.0); Mean Corpuscular Volume 97.6 fL (81-99); Mean Platelet Vol. 9.5 fl (6.2-12.0); Monocyte# 0.39 X10^3/uL; Monocyte% 7.8 % (0-10); NRBC Flagged by Analyzer 0 % (0-5); Neutrophil # 2.25 X10^3/uL (2.7-7.7); Neutrophil % 45.1 % (47-70); Platelet Count 268 K/mm3 (150-450); RBC Distribution Width CV 13.7 % (11.6-14.6); RBC Distribution Width SD 49.7 fl (35.1-43.9); Red Blood Count 4.14 M/mm3 (4.2-5.4)
[2025-03-06 06:31] VITALS: BP 118/90; PULSE 67; RESP 16; TEMP 36.7; O2SAT 92
[2025-03-06 06:39] LABS: ALB/GLOB Ratio 1.7 RATIO (0.9-2.4); AST(SGOT) 20 U/L (<=31); Alanine Aminotransfer ALT/SGPT 13 U/L (<=34); Albumin, Serum 3.5 g/dL (3.5-5.0); Alkaline Phosphatase 110 U/L (35-104); Anion Gap 9 (5-15); BUN 11 mg/dL (4-19); BUN/Creat Ratio 17.7 RATIO (10-20); Calcium,Total 8.6 mg/dL (7.6-11.0); Carbon Dioxide 24.4 mmol/L (21.0-32.0); Chloride 105 mmol/L (98-108); EST Glomerular Filtration Rate 103 (>60); Estimated Creatinine Clearance 104.17 ml/min (50-250); Glucose 108 mg/dL (70-99); Phosphorus 3.8 mg/dL (2.7-4.5); Potassium 3.6 mmol/L (3.3-5.1); Protein, Total 5.5 g/dL (5.9-8.4); Sodium Level 138 mmol/L (133-145)
--- NOTE | 2025-03-06 07:17 | PN.HOSP_ITS ---
Reason for Visit Reason for Visit: Diagnoses Obesity, class 1 (03/05/25) Alcohol use, unspecified, uncomplicated (03/05/25) Alcohol use, unspecified with withdrawal, unspecified (03/05/25) Other psychoactive substance abuse, in remission (03/05/25) Major depressive disorder, recurrent severe without psychotic features (03/05/25) Generalized anxiety disorder (03/05/25) Post-traumatic stress disorder, unspecified (03/05/25) Tobacco use (03/05/25) Subjective Subjective Patient is a 59-year-old lady with history of chronic alcohol dependence presenting with acute alcohol withdrawal Objective Data Objective Data Vital Signs: Vital Signs Temp Pulse Resp BP Pulse Ox O2 Del Method 98.1 F 67 16 118/90 H 92 Room Air 03/06/25 06:31 03/06/25 06:31 03/06/25 06:31 03/06/25 06:31 03/06/25 06:31 03/06/25 06:31 Oxygen Delivery Method Room Air Weight: 84.8 kg Body Mass Index (BMI) 33.1 Intake & Output: Intake and Output for Last 24 Hours 03/04/25 03/05/25 03/06/25 23:59 23:59 23:59 Intake Total 400 / 400 Output Total Balance 399 / 399 Lab / Micro Data 03/06/25 05:39 03/06/25 05:39 Labs: Laboratory Results - last 24 hr 03/05/25 19:20: WBC 7.4, RBC 4.76, Hgb 15.7 H, Hct 45.2, MCV 95.0, MCH 33.0 H, MCHC 34.7, RDW Std Deviation 47.1 H, RDW Coeff of Mamta 13.4, Plt Count 333, MPV 9.0, Immature Gran % (Auto) 0.300, Neut % (Auto) 52.8, Lymph % (Auto) 35.1, [place] % (Auto) 6.8, Eos % (Auto) 4.2, Baso % (Auto) 0.8, Absolute Neuts (auto) 3.9, Absolute Lymphs (auto) 2.60, Nucleated RBC % 0, PT 13.9, INR 1.1, Sodium 141, Potassium 3.6, Chloride 102, Carbon Dioxide 27.2, Anion Gap 12, BUN 6, C reatinine 0.60 L, Estim Creat Clear Calc 104.47, Est GFR (MDRD) Non-Af 103, BUN/Creatinine Ratio 10.6, Glucose 97, Calcium 9.3, Magnesium 1.8, Total Bilirubin 0.48, AST 22, ALT 18, Alkaline Phosphatase 135 H, Total Protein 6.9, Albumin 4.3, Globulin 2.6, Albumin/Globulin Ratio 1.7, Vitamin B12 615, Serum Folate 4.91, TSH 0.908, Ethyl Alcohol 38.6 H 03/05/25 20:10: Urine Opiates Screen NEGATIVE, U Buprenorphine Qual PRESUMPTIVE POSITIVE, Ur Oxycodone Screen NEGATIVE, Urine Methadone Screen NEGATIVE, Urine Fentanyl Screen NEGATIVE, Ur Barbiturates Screen NEGATIVE, Ur Phencyclidine Scrn NEGATIVE, Ur Amphetamines Screen NEGATIVE, U Benzodiazepines Scrn NEGATIVE, Urine Cocaine Screen NEGATIVE, U Cannabinoids Screen NEGATIVE 03/06/25 05:39: WBC 5.0, RBC 4.14 L, Hgb 13.5, Hct 40.4, MCV 97.6, MCH 32.6 H, MCHC 33.4, RDW Std Deviation 49.7 H, RDW Coeff of Mamta 13.7, Plt Count 268, MPV 9.5, Immature Gran % (Auto) 0.800, Neut % (Auto) 45.1 L, Lymph % (Auto) 40.3, [place] % (Auto) 7.8, Eos % (Auto) 5.0, Baso % (Auto) 1.0, Absolute Neuts (auto) 2.3, Absolute Lymphs (auto) 2.01, Nucleated RBC % 0, Sodium 138, Potassium 3.6, Chloride 105, Carbon Dioxide 24.4, Anion Gap 9, BUN 11, Creatinine 0.60 L, Estim Creat Clear Calc 104.17, Est GFR (MDRD) Non-Af 103, BUN/Creatinine Ratio 17.7, G lucose 108 H, Calcium 8.6, Phosphorus 3.8, Total Bilirubin 0.70, AST 20, ALT 13, Alkaline Phosphatase 110 H, Total Protein 5.5 L, Albumin 3.5, Globulin 2.0 L, Albumin/Globulin Ratio 1.7 Physical Exam Narrative GENERAL: cooperative HEENT: Atraumatic; normocephalic EYES; Anicteric, Normal Conjunctiva NECK; supple, normal thyroid, RESPIRATORY: Diminished to auscultation CARDIOVASCULAR: Regular S1 S2, GI: soft, normoactive bowel sounds, : No Renal angle tenderness; EXTREMITIES: No edema, no clubbing, MUSCULOSKELETAL: no muscle wasting NEURO: Awake; no lateralizing signs. SKIN: No Rash PSYCH; Flat affect Assessment & Plan Assessment/Plan (1) Alcohol withdrawal: QUALIFIERS: Complication of substance-induced condition: with unspecified complication Qualified Code(s): F10.939 - Alcohol use, unspecified with withdrawal, unspecified (2) Alcohol use disorder: (3) PTSD (post-traumatic stress disorder): (4) Generalized anxiety disorder: (5) Major depressive disorder, recurrent severe without psychotic features: (6) History of drug abuse: (7) Tobacco abuse: (8) Obesity (BMI 30.0-34.9): PLAN: Plan Patient is a 59-year-old lady with history of chronic alcohol dependence presenting with acute alcohol withdrawal 1. Acute alcohol withdrawal - patient has been admitted to regular nursing floor currently being managed with phenobarb taper for medical stabilization 2. Previous history of opioid dependence Patient has remained in remission for over a year currently on Suboxone 3. COPD ? Currently not in exacerbation aerosol treatment as needed 4. Tobacco dependence - Counseled on cessation, offered nicotine patch for tobacco cravings 5. DVT prophylaxis ? Subcu heparin Time spent in the patient's overall evaluation,decision-making process, review of diagnostic data, adjustment of management, discussion with other providers, nursing nursing and ancillary staff involved in patient's care documentation, 36 Minutes Charges/Coding Visit Charges Inpatient E&M: 71048 Subs Hosp L2
[2025-03-06] MEDS: busPIRone 5 MG Tablet 10 MG PO ×2 (08:56→23:22)
[2025-03-06] MEDS: 0.9% Normal Saline (1000mL) 1,000 ML 100 ML IV (08:56)
[2025-03-06] MEDS: Thiamine Hydrochloride 100 MG Tablet PO (08:57)
[2025-03-06] MEDS: Folic Acid 1 MG Tablet PO (08:57)
[2025-03-06] MEDS: Escitalopram Oxalate 20 MG Tablet PO (08:57)
[2025-03-06] MEDS: buprenorphine HCL 8 MG TAB.SUBL SL ×2 (09:31→23:22)
[2025-03-06] MEDS: Heparin Injection (Vial) 5,000 UNIT/ML VIAL 5000 UNIT SC ×2 (09:31→23:23)
[2025-03-06 09:37] VITALS: BP 134/88; PULSE 58; RESP 16; TEMP 36.3; O2SAT 98
[2025-03-06] MEDS: Ondansetron 8 MG Tablet PO (10:41)
[2025-03-06 14:00] VITALS: BP 112/70; PULSE 67; RESP 14; TEMP 36.6; O2SAT 97
[2025-03-06 18:20] VITALS: BP 109/70; PULSE 68; RESP 14; TEMP 36.7; O2SAT 90
[2025-03-06 23:16] VITALS: BP 130/83; PULSE 62; RESP 16; TEMP 36.8; O2SAT 91
[2025-03-06] MEDS: 0.9% Saline Lock 10 ML Syringe IV (23:22)
[2025-03-07 03:30] VITALS: O2SAT 84
[2025-03-07 03:38] VITALS: BP 135/95; PULSE 64; RESP 16; TEMP 36.7; O2SAT 92
[2025-03-07] MEDS: Phenobarbital 32.4 MG Tablet 64.8 MG PO ×6 (03:39→22:38)
[2025-03-07 06:00] VITALS: BMI 34.0
[2025-03-07 06:56] VITALS: BP 147/94; PULSE 61; RESP 18; TEMP 36.8; O2SAT 97
--- NOTE | 2025-03-07 07:37 | PCM.PN.HOSP ---
Reason for Visit Reason for Visit: Diagnoses Obesity, class 1 (03/05/25) Alcohol use, unspecified, uncomplicated (03/05/25) Alcohol use, unspecified with withdrawal, unspecified (03/05/25) Other psychoactive substance abuse, in remission (03/05/25) Major depressive disorder, recurrent severe without psychotic features (03/05/25) Generalized anxiety disorder (03/05/25) Post-traumatic stress disorder, unspecified (03/05/25) Tobacco use (03/05/25) Subjective Subjective Patient seen still still has symptoms complains of nausea especially after eating. Will continue with the phenobarb taper and assess for possible discharge in the morning Objective Data Objective Data Vital Signs: Vital Signs Temp Pulse Resp BP Pulse Ox O2 Del Method O2 Flow Rate 98.3 F 61 18 147/94 H 97 Nasal Cannula 2 03/07/25 06:56 03/07/25 06:56 03/07/25 06:56 03/07/25 06:56 03/07/25 06:56 03/07/25 06:56 03/07/25 06:56 Oxygen Flow Rate (L/min) 2 Oxygen Delivery Method Nasal Cannula Weight: 87.1 kg Body Mass Index (BMI) 34.0 Intake & Output: Intake and Output for Last 24 Hours 03/05/25 03/06/25 03/07/25 23:59 23:59 23:59 Intake Total 3996.67 / 4196.67 200 / 200 Output Total Balance 3995.67 / 4195.67 200 / 200 Lab / Micro Data 03/06/25 05:39 03/06/25 05:39 Physical Exam Narrative GENERAL: cooperative HEENT: Atraumatic; normocephalic EYES; Anicteric, Normal Conjunctiva NECK; supple, normal thyroid, RESPIRATORY: Diminished to auscultation CARDIOVASCULAR: Regular S1 S2, GI: soft, normoactive bowel sounds, : No Renal angle tenderness; EXTREMITIES: No edema, no clubbing, MUSCULOSKELETAL: no muscle wasting NEURO: Awake; no lateralizing signs. SKIN: No Rash PSYCH; Flat affect Assessment & Plan Assessment/Plan (1) Alcohol withdrawal: QUALIFIERS: Complication of substance-induced condition: with unspecified complication Qualified Code(s): F10.939 - Alcohol use, unspecified with withdrawal, unspecified (2) Alcohol use disorder: (3) PTSD (post-traumatic stress disorder): (4) Generalized anxiety disorder: (5) Major depressive disorder, recurrent severe without psychotic features: (6) History of drug abuse: (7) Tobacco abuse: (8) Obesity (BMI 30.0-34.9): PLAN: Plan Patient is a 59-year-old lady with history of chronic alcohol dependence presenting with acute alcohol withdrawal 1. Acute alcohol withdrawal - patient has been admitted to regular nursing floor currently being managed with phenobarb taper for medical stabilization ? 03/07/2025;Patient seen still still has symptoms complains of nausea especially after eating. Will continue with the phenobarb taper and assess for possible discharge in the morning 2. Previous history of opioid dependence Patient has remained in remission for over a year currently on Suboxone 3. COPD ? Currently not in exacerbation aerosol treatment as needed 4. Tobacco dependence - Counseled on cessation, offered nicotine patch for tobacco cravings 5. DVT prophylaxis ? Subcu heparin Time spent in the patient's overall evaluation,decision-making process, review of diagnostic data, adjustment of management, discussion with other providers, nursing nursing and ancillary staff involved in patient's care documentation, 35 Minutes Charges/Coding Visit Charges Inpatient E&M: 68985 Subs Hosp L2
[2025-03-07 08:30] VITALS: BP 135/97; PULSE 60; RESP 16; TEMP 36.8; O2SAT 97
[2025-03-07 08:41] LABS: Phosphorus 3.3 mg/dL (2.7-4.5)
[2025-03-07] MEDS: buprenorphine HCL 8 MG TAB.SUBL SL ×2 (09:04→22:38)
[2025-03-07] MEDS: busPIRone 5 MG Tablet 10 MG PO ×2 (09:04→22:38)
[2025-03-07] MEDS: Folic Acid 1 MG Tablet PO (09:05)
[2025-03-07] MEDS: Escitalopram Oxalate 20 MG Tablet PO (09:05)
[2025-03-07] MEDS: Heparin Injection (Vial) 5,000 UNIT/ML VIAL 5000 UNIT SC ×2 (09:05→22:38)
[2025-03-07] MEDS: Thiamine Hydrochloride 100 MG Tablet PO (09:05)
--- NOTE | 2025-03-07 12:07 | ADDICTION ---
This automobile service writer met with PT to conduct ASAM, MSE, AUDIT assessments and to plan for d/c. PT A+Ox4 and participated actively. All assessments completed. PT plans to f/u with her clinician at [facility] and continue IOP and MAT. When asked what changes she plans on making, pt reported that she also is ging to start attending meetings and find a sponsor. PT did not indicate a need for transportation post d/c from [facility].
[2025-03-07] MEDS: Nicotine Polacrilex 2 MG GUM PO (12:59)
[2025-03-07 14:05] VITALS: BP 113/69; PULSE 70; RESP 18; TEMP 36.3; O2SAT 95
[2025-03-07 20:55] VITALS: BP 118/67; PULSE 61; RESP 18; TEMP 36.6; O2SAT 96
[2025-03-08] MEDS: Phenobarbital 32.4 MG Tablet 64.8 MG PO (02:05)
[2025-03-08 02:10] VITALS: BP 117/76; PULSE 60; RESP 16; TEMP 36.6; O2SAT 94
[2025-03-08 05:52] VITALS: BMI 34.2
--- NOTE | 2025-03-08 07:55 | PCM.DC.SUM ---
Providers Date of Admission: 03/05/25 Date of Discharge: 03/08/25 Primary Care Physician: Dr. Earnest Rodriguez MD Reason For Visit: IMPENDING ETOH W/D Diagnosis Discharge Diagnosis (1) Alcohol withdrawal: Status: Acute Code(s): F10.939 - Alcohol use, unspecified with withdrawal, unspecified Qualifiers: Complication of substance-induced condition: with unspecified complication Qualified Code(s): F10.939 - Alcohol use, unspecified with withdrawal, unspecified (2) Alcohol use disorder: Status: Acute Code(s): F10.90 - Alcohol use, unspecified, uncomplicated (3) PTSD (post-traumatic stress disorder): Status: Acute Code(s): F43.10 - Post-traumatic stress disorder, unspecified (4) Generalized anxiety disorder: Status: Acute Code(s): F41.1 - Generalized anxiety disorder (5) Major depressive disorder, recurrent severe without psychotic features: Status: Acute Code(s): F33.2 - Major depressive disorder, recurrent severe without psychotic features (6) History of drug abuse: Status: Chronic Code(s): F19.11 - Other psychoactive substance abuse, in remission (7) Tobacco abuse: Status: Acute Code(s): Z72.0 - Tobacco use (8) Obesity (BMI 30.0-34.9): Status: Acute Code(s): E66.811 - Obesity, class 1 Plan Patient is a 59-year-old lady with history of chronic alcohol dependence presenting with acute alcohol withdrawal 1. Acute alcohol withdrawal - patient has been admitted to regular nursing floor currently being managed with phenobarb taper for medical stabilization ? 03/07/2025;Patient seen still still has symptoms complains of nausea especially after eating. Will continue with the phenobarb taper and assess for possible discharge in the morning 03/08/2025; patient clinical condition and stabilized decision was made to discharge patient home for subsequent outpatient follow-up and treatment 2. Previous history of opioid dependence Patient has remained in remission for over a year currently on Suboxone 3. COPD ? Currently not in exacerbation aerosol treatment as needed 4. Tobacco dependence - Counseled on cessation, offered nicotine patch for tobacco cravings 5. DVT prophylaxis ? Subcu heparin Time spent in the patient's overall evaluation,decision-making process, review of diagnostic data, adjustment of management, discussion with other providers, nursing nursing and ancillary staff involved in patient's care documentation, 32 Minutes Medications at Discharge Home Medications buprenorphine 8 mg-naloxone 2 mg sublingual film 1 ea sublingual BID 07/13/24 clonidine HCl 0.1 mg tablet 0.1 mg PO BID PRN anxiety #60 tabs 12/02/24 escitalopram oxalate 20 mg tablet (Lexapro) 20 mg PO DAILY 30 days #30 tabs 12/02/24 buspirone 10 mg tablet 10 mg PO BID 30 days #60 tabs 01/06/25 ergocalciferol (vitamin D2) 1,250 mcg (50,000 unit) capsule 1,250 mcg PO QWEEK 03/05/25 Physical Exam Narrative GENERAL: cooperative HEENT: Atraumatic; normocephalic EYES; Anicteric, Normal Conjunctiva NECK; supple, normal thyroid, RESPIRATORY: Diminished to auscultation CARDIOVASCULAR: Regular S1 S2, GI: soft, normoactive bowel sounds, : No Renal angle tenderness; EXTREMITIES: No edema, no clubbing, MUSCULOSKELETAL: no muscle wasting NEURO: Awake; no lateralizing signs. SKIN: No Rash PSYCH; Flat affect Weight / BMI Weight Weight: 87.634 kg Body Mass Index (BMI) 34.2 ABG / Lab / Microbiology Data 03/06/25 05:39 03/06/25 05:39 Laboratory: Laboratory Results - last 24 hr 03/07/25 06:54: Phosphorus 3.3 D/C Instructions Discharge Diet: No restrictions Discharge Activity: Return to Normal Activity Call your doctor if you observe: Fever of 101 or Higher, Shortness of breath, Fainting spells and Chest pain DC O2, CPAP, BIPAP Needs Home O2 Discharge instructions: No Meaningful Use Info Meaningful Use Meaningful Use Diagnoses (Choose all that apply): None applicable Ischemic Stroke Statin Dosing Therapy Reference: STATIN DOSE THERAPY REFERENCE: * Patients > 75 years receive moderate or high dose statin therapy. * Patients 75 years or YOUNGER should receive HIGH intensity statin dose unless contraindicated. You will be required to document reason for non-treatment if statin daily dose does not meet guidelines. HIGH DOSE STATIN THERAPY DAILY Atorvastatin > than or = to 40 mg Rosuvastatin > than or = to 20 mg Amlodipine + Atorvastatin > than or = to 2.5/40 mg Ezetimibe + Simvastatin 10/80 mg Simvastatin 80mg Discharge Plan Admission Admit Date/Time: 03/05/25 21:54 Attending Provider: Jeffry Rebolledo Primary Care Provider: Earnest Rodriguez Consulting Providers: Jeffry Cortez Discharge Orders/Prescriptions Prescriptions: Continued clonidine HCl 0.1 mg tablet 0.1 mg PO BID PRN (Reason: anxiety) Qty: 60 1RF escitalopram oxalate [Lexapro] 20 mg tablet 20 mg PO DAILY 30 Days Qty: 30 2RF buprenorphine-naloxone 8-2 mg film 1 ea sublingual BID ergocalciferol (vitamin D2) 1,250 mcg (50,000 unit) capsule 1,250 mcg PO QWEEK buspirone 10 mg tablet 10 mg PO BID 30 Days Qty: 60 2RF Rx Instructions: 1 po bid Referrals / Follow Up: Earnest Rodriguez MD [Primary Care Provider] - Disposition Disposition (needs filled in before D/C Order can be placed): Home, Self Care Charges/Coding Visit Charges Inpatient E&M: 53979 Disch Hosp >30min
[2025-03-08 08:00] VITALS: BP 123/84; PULSE 58; RESP 18; TEMP 36.5; O2SAT 93
[2025-03-08] MEDS: Escitalopram Oxalate 20 MG Tablet PO (09:08)
[2025-03-08] MEDS: buprenorphine HCL 8 MG TAB.SUBL SL (09:08)
[2025-03-08] MEDS: busPIRone 5 MG Tablet 10 MG PO (09:08)
[2025-03-08] MEDS: Folic Acid 1 MG Tablet PO (09:08)
[2025-03-08] MEDS: Thiamine Hydrochloride 100 MG Tablet PO (09:08)
[2025-03-08] MEDS: Nicotine Polacrilex 2 MG GUM PO (09:12)
--- NOTE | 2025-03-08 10:08 | PHA.DC.MR.R ---
Pharmacy [place] Med Reconciliation Pharmacy Service has performed discharge medication reconciliation for this patient. The patient's discharge medication list was reviewed for discrepancies and discrepancies were resolved. Medications at Discharge Home Medications buprenorphine 8 mg-naloxone 2 mg sublingual film 1 ea sublingual BID 07/13/24 clonidine HCl 0.1 mg tablet 0.1 mg PO BID PRN anxiety #60 tabs 12/02/24 escitalopram oxalate 20 mg tablet (Lexapro) 20 mg PO DAILY 30 days #30 tabs 12/02/24 buspirone 10 mg tablet 10 mg PO BID 30 days #60 tabs 01/06/25 ergocalciferol (vitamin D2) 1,250 mcg (50,000 unit) capsule 1,250 mcg PO QWEEK 03/05/25
== END 2025-03-08 11:20 | disposition home or self-care (01) | DRG 897 ==
LOC: ED 20:31 → MS3 22:19
PROVIDERS: Admitting Provider Internal Medicine; Emergency Provider Emergency Medicine; PCP Family Medicine; Visit Provider Internal Medicine
DX: F10.239 Alcohol dependence with withdrawal, unspecified (principal); F33.2 Major depressive disorder, recurrent severe without psychotic features; J44.9 Chronic obstructive pulmonary disease, unspecified; F19.11 Other psychoactive substance abuse, in remission; I10 Essential (primary) hypertension; Z68.33 Body mass index [BMI] 33.0-33.9, adult; F17.200 Nicotine dependence, unspecified, uncomplicated; M19.90 Unspecified osteoarthritis, unspecified site; F41.1 Generalized anxiety disorder; Z90.710 Acquired absence of both cervix and uterus; F43.10 Post-traumatic stress disorder, unspecified; M81.0 Age-related osteoporosis without current pathological fracture; E66.811 Obesity, class 1; Z98.51 Tubal ligation status; Y90.1 Blood alcohol level of 20-39 mg/100 ml
CPT/HCPCS: 36415; 80053; 80307; 82077; 82607; 82746; 83735; 84100; 84443; 85025; 85610; 99284; 99406; A4216

== ENCOUNTER 2025-05-11 15:57 | Inpatient (IN) | payer MEDICARE, MEDICAID, SELFPAY ==
[2025-05-11] VITALS (12 sets, daily range): BP systolic 127–164; BP diastolic 70–101; PULSE 73–92; RESP 15–23; TEMP 36.6–37; O2SAT 93–99; BMI 32.8; BMI 31.4
--- NOTE | 2025-05-11 16:10 | EX.ED.DYSGE1 ---
HPI History of Present Illness Chief Complaint: ETOH Intox Narrative Narrative: Chief complaint and HPI: Alcohol detox. 59-year-old female with past medical history of chronic alcohol abuse, tobacco abuse, previous opiate abuse on Suboxone presents for alcohol detox. Patient states her last alcoholic beverage was approximately 1 hour ago. States she drinks 2 large bottles of jenny a day. Denies any withdrawal symptoms at this time. Denies any suicidal or homicidal ideation. Review of systems: See HPI Medications: As listed on the chart Allergies: As listed on the chart PFSH: Per chart Vital signs: As listed on the chart. Reviewed. Physical exam: Gen: A&O x3, NAD Head: Normocephalic, atraumatic Eyes: No sclera icterus, conjunctiva clear PERRL, ENT: Moist mucous membranes CV: RRR, no murmurs Resp: Lungs CTA BL, no w/r/c GI: Abd soft, non-distended, non-tender, no r/r/g Musc: Full ROM, no deformity Skin: Warm, dry Neuro: Alert, oriented, grossly intact, sensation intact Psych: Cooperative, appropriate mood and affect [facility] Medical History Alcohol use disorder Tobacco use Alcohol abuse with physiological dependence Substance abuse Depression Kidney stones Hypertension Generalized anxiety disorder PTSD (post-traumatic stress disorder) Major depressive disorder, recurrent severe without psychotic features Wears dentures Wears glasses Post-menopausal Bladder disease Hearing loss, left Hearing loss, right Osteoporosis Smoker Migraines Anxiety Hepatitis Irregular heart beat Drug abuse Duodenitis Home Medications ?Medication ?Instructions ?Recorded ?Last Taken ?Type buprenorphine 8 mg-naloxone 2 mg 1 ea sublingual BID 07/13/24 05/11/25 History sublingual film clonidine HCl 0.1 mg tablet 0.1 mg PO BID PRN anxiety #60 tabs 12/02/24 Unknown Rx escitalopram oxalate 20 mg tablet 20 mg PO DAILY 30 days #30 tabs 12/02/24 05/11/25 Rx (Lexapro) buspirone 10 mg tablet 10 mg PO BID 30 days #60 tabs 01/06/25 Unknown Rx Allergy/AdvReac Type Severity Reaction Status Date / Time No Known Allergies Allergy Verified 05/11/25 16:01 Family History Mother Breast cancer Heart disease Hypertension Diabetes Father Cancer pt is unsure what kind of cancer Heart disease Hypertension Diabetes Sister Breast cancer Sister Ovarian cancer Surgical History S/P vaginal hysterectomy Hx of hand surgery History of cataract surgery History of tubal ligation History of umbilical hernia repair Social History adopted: No household members: none number of children: 6 current occupational status: unemployed pets and animals: Yes pets and animals: cat(s) sexually active: No Smoking Status: Heavy Smoker (>10/day) alcohol intake: former details: pt sober since 2020 caffeine: Yes seatbelt use: always do you feel safe at home: Yes EXAM Physical Exam Const Vital Signs: 05/11/25 15:57 05/11/25 15:58 05/11/25 16:12 Temperature 98.2 F 98.3 F 98.4 F Temperature Source Oral Oral Oral Pulse Rate 88 92 77 Respiratory Rate 15 18 18 Blood Pressure 138/89 H 143/101 H 131/98 H Blood Pressure Mean 105 115 109 Blood Pressure Source Monitor Monitor Blood Pressure Position Semi-Fowlers Semi-Fowlers Blood Pressure Location Right Arm Right Arm Pulse Ox 94 98 97 Oxygen Delivery Method Room Air Room Air 05/11/25 16:57 05/11/25 18:00 Temperature 97.8 F Temperature Source Oral Pulse Rate 80 78 Respiratory Rate 18 16 Blood Pressure 134/99 H 146/95 H Blood Pressure Mean 110 112 Blood Pressure Source Blood Pressure Position Blood Pressure Location Pulse Ox 98 93 Oxygen Delivery Method Room Air Room Air MDM MDM MDM Narrative Medical decision making narrative: 59-year-old female with past medical history of chronic alcohol abuse, tobacco abuse, previous opiate abuse on Suboxone presents for alcohol detox. Last alcoholic drink was approximately 1 hour ago. Has no history of delirium or seizures with withdrawal. Currently denying any withdrawal symptoms. On presentation, patient is no acute distress. Her vitals are stable other than mild hypertension. NS bolus ordered. On chart review, patient was just discharged from our hospital on 03/08 after alcohol detox. At that time she was treated with phenobarbital per discharge summary. Laboratory workup ordered at this time. Will monitor with CIWA. Ativan as needed for withdrawal symptoms. CBC without leukocytosis or anemia. Platelets unremarkable. CMP unremarkable for significant electrolyte abnormality or MICHAEL. No transaminitis. Magnesium unremarkable. UA positive for buprenorphine, patient is on Suboxone. Alcohol level 72.3. On reevaluation, patient is still denying any withdrawal symptoms. Patient will warrant admission. She confirmed understanding the plan. I spoke with the hospitalist service who accepted. Impression: 1. Requesting alcohol detox 2. Chronic alcohol abuse 3. History of opiate abuse on Suboxone Lab Data Labs: Laboratory Results - last 24 hr 05/11/25 05/11/25 16:25 16:30 WBC 6.5 RBC 4.63 Hgb 14.9 Hct 43.2 MCV 93.3 MCH 32.2 H MCHC 34.5 RDW Std Deviation 45.9 H RDW Coeff of Mamta 13.4 Plt Count 297 MPV 9.2 Immature Gran % (Auto) 0.300 Neut % (Auto) 49.9 Lymph % (Auto) 38.7 Gooding % (Auto) 6.5 Eos % (Auto) 3.5 Baso % (Auto) 1.1 H Absolute Neuts (auto) 3.3 Absolute Lymphs (auto) 2.52 Nucleated RBC % 0 Sodium 140 Potassium 3.7 Chloride 103 Carbon Dioxide 24.5 Anion Gap 12 BUN 7 Creatinine 0.59 L Estim Creat Clear Calc 105.47 Est GFR (MDRD) Non-Af 104 BUN/Creatinine Ratio 11.8 Glucose 107 H Calcium 8.6 Magnesium 2.0 Total Bilirubin 0.34 AST 18 ALT 13 Alkaline Phosphatase 126 H Total Protein 6.4 Albumin 4.1 Globulin 2.3 Albumin/Globulin Ratio 1.8 Urine Opiates Screen NEGATIVE U Buprenorphine Qual PRESUMPTIVE POSITIVE Ur Oxycodone Screen NEGATIVE Urine Methadone Screen NEGATIVE Urine Fentanyl Screen NEGATIVE Ur Barbiturates Screen NEGATIVE Ur Phencyclidine Scrn NEGATIVE Ur Amphetamines Screen NEGATIVE U Benzodiazepines Scrn NEGATIVE Urine Cocaine Screen NEGATIVE U Cannabinoids Screen NEGATIVE Ethyl Alcohol 72.3 H Discharge Plan Triage Chief Complaint: ETOH Intox ED Provider: Remy Domingo Dx/Rx/DC Orders Prescriptions: No Action clonidine HCl 0.1 mg tablet 0.1 mg PO BID PRN (Reason: anxiety) Qty: 60 1RF escitalopram oxalate [Lexapro] 20 mg tablet 20 mg PO DAILY 30 Days Qty: 30 2RF buprenorphine-naloxone 8-2 mg film 1 ea sublingual BID buspirone 10 mg tablet 10 mg PO BID 30 Days Qty: 60 2RF Rx Instructions: 1 po bid Primary Care Provider: Earnest Rodriguez Referrals: Earnest Rodriguez MD [Primary Care Provider] - Print Language: Stateless
[2025-05-11] MEDS: 0.9% Normal Saline (1000mL) 1,000 ML 1000 ML IV (16:41)
[2025-05-11 16:52] LABS: Absolute Lymphocyte Count 2.52 X10^3/uL (0.83-4.51); Absolute Neutrophil Count 3.3 X10^3/uL (2.0-7.7); Basophil# 0.07 X10^3/uL; Basophil% 1.1 % (0-1); Eosinophil# 0.23 X10^3/uL; Eosinophils% 3.5 % (0-5); Hematocrit 43.2 % (37-47); Hemoglobin 14.9 g/dL (12.0-15.0); Lymphocyte # 2.52 X10^3/ul (0.83-4.51); Lymphocyte % 38.7 % (19-41); Mean Corp Hgb Conc 34.5 g/dL (32-36); Mean Corpuscular Hgb 32.2 pg (27.0-32.0); Mean Corpuscular Volume 93.3 fL (81-99); Mean Platelet Vol. 9.2 fl (6.2-12.0); Monocyte# 0.42 X10^3/uL; Monocyte% 6.5 % (0-10); NRBC Flagged by Analyzer 0 % (0-5); Neutrophil # 3.25 X10^3/uL (2.7-7.7); Neutrophil % 49.9 % (47-70); Platelet Count 297 K/mm3 (150-450); RBC Distribution Width CV 13.4 % (11.6-14.6); RBC Distribution Width SD 45.9 fl (35.1-43.9); Red Blood Count 4.63 M/mm3 (4.2-5.4); White Blood Count 6.5 K/mm3 (4.4-11.0)
[2025-05-11 17:08] LABS: Amphetamine Urine NEGATIVE (<1000 ng/mL); Barbiturate Urine NEGATIVE (< 200 ng/mL); Benzodiazepine Urine NEGATIVE (< 200 ng/mL); Buprenorphine Urine PRESUMPTIVE POSITIVE (< 200 ng/mL); Cocaine Urine NEGATIVE (< 300 ng/mL); Fentanyl, Urine NEGATIVE; Methadone Urine NEGATIVE (< 300 ng/mL); Opiates Urine NEGATIVE (< 300 ng/mL); Oxycodone, Urine NEGATIVE (< 100 ng/mL); PCP Urine NEGATIVE (< 25 ng/mL); THC Urine NEGATIVE (< 50 ng/mL)
[2025-05-11 17:20] LABS: ALB/GLOB Ratio 1.8 RATIO (0.9-2.4); AST(SGOT) 18 U/L (<=31); Alanine Aminotransfer ALT/SGPT 13 U/L (<=34); Albumin, Serum 4.1 g/dL (3.5-5.0); Alkaline Phosphatase 126 U/L (35-104); Anion Gap 12 (5-15); BUN 7 mg/dL (4-19); BUN/Creat Ratio 11.8 RATIO (10-20); Calcium,Total 8.6 mg/dL (7.6-11.0); Carbon Dioxide 24.5 mmol/L (21.0-32.0); Chloride 103 mmol/L (98-108); Creatinine, Serum 0.59 mg/dL (0.70-1.20); EST Glomerular Filtration Rate 104 (>60); Estimated Creatinine Clearance 105.47 ml/min (50-250); Globulin 2.3 g/dL (2.2-4.2); Glucose 107 mg/dL (70-99); Potassium 3.7 mmol/L (3.3-5.1); Protein, Total 6.4 g/dL (5.9-8.4); Sodium Level 140 mmol/L (133-145); Total Bilirubin 0.34 mg/dL (0.00-1.30)
[2025-05-11 17:22] LABS: Alcohol, Blood (Medical)-Serum 72.3 mg/dL (<=10.0)
--- NOTE | 2025-05-11 18:34 | PCM.HP.STD ---
HPI - General General Date of Admission: 05/11/25 Date of Service: 05/11/25 Chief Complaint: Alcohol detox HPI Narrative KAMI WATTS, is a 59 F who presented to [facility] ED on 05/11/2025 for alcohol detox. Patient was recently hospitalized here in February for alcohol detox. She tolerated phenobarbital taper well at that time. Was discharged home and plan was for outpatient follow-up and treatment. She unfortunately relapsed not long after that hospitalization. Has been drinking 2 large bottles of jenny daily. Last drink was 1 hour prior to admission. Alcohol level only 72 on admit. In the ED she was mildly hypertensive but otherwise hemodynamically stable. Labs were fairly benign. Given desire for detox, hospitalist was contacted for admission. I saw the patient at bedside in ED. She was mildly fatigued appearing but otherwise laying back comfortably in bed, in no acute distress. She reported only mild withdrawal symptoms currently. She does report taking her Suboxone as prescribed for prior history of opiate abuse. She was requesting addicting patch and smokes 1 pack of cigarettes per day. No other acute concerns currently. Will be admitted for further management. [facility] Medical History Alcohol use disorder Tobacco use Alcohol abuse with physiological dependence Substance abuse Depression Kidney stones Hypertension Generalized anxiety disorder PTSD (post-traumatic stress disorder) Major depressive disorder, recurrent severe without psychotic features Wears dentures Wears glasses Post-menopausal Bladder disease Hearing loss, left Hearing loss, right Osteoporosis Smoker Migraines Anxiety Hepatitis Irregular heart beat Drug abuse Duodenitis Home Medications ?Medication ?Instructions ?Recorded ?Last Taken ?Type buprenorphine 8 mg-naloxone 2 mg 1 ea sublingual BID 07/13/24 05/11/25 History sublingual film clonidine HCl 0.1 mg tablet 0.1 mg PO BID PRN anxiety #60 tabs 12/02/24 Unknown Rx escitalopram oxalate 20 mg tablet 20 mg PO DAILY 30 days #30 tabs 12/02/24 05/11/25 Rx (Lexapro) buspirone 10 mg tablet 10 mg PO BID 30 days #60 tabs 01/06/25 Unknown Rx Allergy/AdvReac Type Severity Reaction Status Date / Time No Known Allergies Allergy Verified 05/11/25 16:01 Family History Mother Breast cancer Heart disease Hypertension Diabetes Father Cancer pt is unsure what kind of cancer Heart disease Hypertension Diabetes Sister Breast cancer Sister Ovarian cancer Surgical History S/P vaginal hysterectomy Hx of hand surgery History of cataract surgery History of tubal ligation History of umbilical hernia repair Social History adopted: No household members: none number of children: 6 current occupational status: unemployed pets and animals: Yes pets and animals: cat(s) sexually active: No Smoking Status: Heavy Smoker (>10/day) alcohol intake: former details: pt sober since 2020 caffeine: Yes seatbelt use: always do you feel safe at home: Yes ROS Constitutional Constitutional: Reports fatigue; Denies chills, fever(s) or weakness Eyes Eyes: Denies change in vision Cardiovascular Cardiovascular: Denies chest pain Respiratory/Chest Respiratory/Chest: Denies shortness of breath at rest Gastrointestinal Gastrointestinal: Denies abdominal pain Genitourinary Genitourinary: Denies dysuria Musculoskeletal Musculoskeletal: Denies myalgias Neurologic Neurologic: Reports headache(s); Denies focal weakness or numbness Vital Signs Vital Signs Vital Signs: 05/11/25 15:57 05/11/25 15:58 05/11/25 16:12 Temperature 98.2 F 98.3 F 98.4 F Temperature Source Oral Oral Oral Pulse Rate 88 92 77 Respiratory Rate 15 18 18 Blood Pressure 138/89 H 143/101 H 131/98 H Blood Pressure Mean 105 115 109 Blood Pressure Source Monitor Monitor Blood Pressure Position Semi-Fowlers Semi-Fowlers Blood Pressure Location Right Arm Right Arm Pulse Ox 94 98 97 Oxygen Delivery Method Room Air Room Air 05/11/25 16:57 05/11/25 18:00 Temperature 97.8 F Temperature Source Oral Pulse Rate 80 78 Respiratory Rate 18 16 Blood Pressure 134/99 H 146/95 H Blood Pressure Mean 110 112 Blood Pressure Source Blood Pressure Position Blood Pressure Location Pulse Ox 98 93 Oxygen Delivery Method Room Air Room Air Weight Weight: 84.085 kg Body Mass Index (BMI) 32.8 Physical Exam Const alert, oriented x3 and no apparent distress Constitutional Narrative: Upper middle-aged female, class I obesity, mildly fatigued appearing but otherwise laying back comfortably in bed, conversing normally, in no acute distress. General Appearance: cooperative and comfortable HEENT normocephalic, head/scalp atraumatic, hearing grossly normal bilaterally, nasal mucous membranes and turbinates normal and moist oral mucous membranes Eyes PERRL, EOMs intact bilaterally and conjunctivae normal Neck full ROM Chest inspection of chest normal Resp normal respiratory effort, normal air movement, no use of accessory muscles and clear to auscultation bilaterally Cardio regular rate, regular rhythm, no murmurs and peripheral pulses 2+ throughout GI normal to inspection, nondistended, normoactive bowel sounds, soft to palpation, non-tender and non-distended Back/Spine normal ROM Extremity normal to inspection, full ROM and no pedal edema Skin no rashes or lesions noted Psych mental status grossly normal Results Lab / Micro Data 05/11/25 16:30 05/11/25 16:30 Labs: Laboratory Results - last 24 hr 05/11/25 16:25: Urine Opiates Screen NEGATIVE, U Buprenorphine Qual PRESUMPTIVE POSITIVE, Ur Oxycodone Screen NEGATIVE, Urine Methadone Screen NEGATIVE, Urine Fentanyl Screen NEGATIVE, Ur Barbiturates Screen NEGATIVE, Ur Phencyclidine Scrn NEGATIVE, Ur Amphetamines Screen NEGATIVE, U Benzodiazepines Scrn NEGATIVE, Urine Cocaine Screen NEGATIVE, U Cannabinoids Screen NEGATIVE 05/11/25 16:30: WBC 6.5, RBC 4.63, Hgb 14.9, Hct 43.2, MCV 93.3, MCH 32.2 H, MCHC 34.5, RDW Std Deviation 45.9 H, RDW Coeff of Mamta 13.4, Plt Count 297, MPV 9.2, Immature Gran % (Auto) 0.300, Neut % (Auto) 49.9, Lymph % (Auto) 38.7, Garvin % (Auto) 6.5, Eos % (Auto) 3.5, Baso % (Auto) 1.1 H, Absolute Neuts (auto) 3.3, Absolute Lymphs (auto) 2.52, Nucleated RBC % 0, Sodium 140, Potassium 3.7, Chloride 103, Carbon Dioxide 24.5, Anion Gap 12, BUN 7, Creatinine 0.59 L, Estim Creat Clear Calc 105.47, Est GFR (MDRD) Non-Af 104, BUN/Creatinine Ratio 11.8, Glucose 107 H, Calcium 8.6, Magnesium 2.0, Total Bilirubin 0.34, AST 18, ALT 13, Alkaline Phosphatase 126 H, Total Protein 6.4, Albumin 4.1, Globulin 2.3, Albumin/Globulin Ratio 1.8, Ethyl Alcohol 72.3 H Assessment & Plan Assessment/Plan (1) Alcohol use disorder: (2) Desire for detoxification: PLAN: Plan Patient is a 59-year-old female who presented to [facility] ED on 05/11/2025 for alcohol detox. 1. Alcohol abuse with desire for detox ? Admit under inpatient status to [facility]. Case management consulted. Alcohol level 72 on admit with minimal withdrawal symptoms. Recently here for detox and February and tolerated phenobarbital taper well. Will treat with phenobarbital taper and other as needed medications per alcohol withdrawal order set. Appreciate case management assistance. 2. History of opiate abuse ? Has been in remission for over a year. Encouraged continued cessation. Continue home Suboxone. 3. Tobacco abuse ? Smokes 1 pack of cigarettes per day. Continue patch ordered per patient request. Discussed cessation on discharge. 4. Anxiety/depression ? Continue home BuSpar and escitalopram. 5. Class I obesity ? BMI 32 on admit. Complicates hospital course, care and prognosis. DVT prophylaxis: Lovenox CODE STATUS: Full code, verified Expected disposition: TBD Total clinical time spent by myself addressing the patient's medical issues, reviewing all the data, and collaborating with patient's care team: 55 minutes. Charges/Coding Visit Charges Inpatient E&M: 23178 Init Hosp L2
--- OUTSIDE RECORDS SUMMARY | 2025-05-11 20:40 | XMS RPT_ITS | CCD ---
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 scattered areas of fibroglandular density. No suspicious masses, calcifications or other abnormalities are seen in either breast. There are no significant interval changes. IMPRESSION: There is no mammographic evidence of malignancy in either breast. Routine screening mammogram is recommended. Annual mammogram will be due in 1 year. BI-RADS Category 1: Negative RISK: Based on the Tyrer-Cuzick (TC) risk assessment model, this patient has a 15.7% lifetime risk of developing breast cancer, meaning they are at average risk for developing breast cancer. However, this is only an estimate based on available history provided on the patient's questionnaire. We encourage all patients to talk with their providers about these results, further recommendations for managing breast health, and appropriate supplemental screening options if the patient has dense breast tissue. Interpreting Radiologist: Eva Tobias M.D. Electronically signed on: 03/31/2025 Director Of Group Counseling Program: SWATI Transcribe Date/Time: Mar 30 2025 10:57A Dictated by: EVA TOBIAS MD This examination was interpreted and the report reviewed and electronically signed by: EVA TOBIAS MD on Mar 31 2025 10:50AM EST [id number] Normal [facility] Phosphoruson 03-07-2025 Phosphate [Mass/Vol] 3.3 mg/dL Normal 2.7-4.5 [place] Comment on above: Performed By: #### L 501.2300 #### [facility] [address] [place], [address] CBC W/Diff, Automatedon 02-21 Absolute Lymph 2.01 X10 3/uL Normal 0.83-4.51 [facility] Comment on above: Performed By: #### L 500.4050, L501.2300, L100.0100 #### [facility] [address] [place], [address] Absolute Neut 2.3 X10 3/uL Normal 2.0-7.7 [facility] Comment on above: Performed By: #### L 500.4050, L501.2300, L100.0100 #### [facility] [address] [place], [address] Basophils/100 WBC (Bld) 1.0 % Normal 0-1 [facility] Comment on above: Performed By: #### L 500.4050, L501.2300, L100.0100 #### [facility] [address] [place], [address] Eosinophils/100 WBC (Bld) 5.0 % Normal 0-5 [facility] Comment on above: Performed By: #### L 500.4050, L501.2300, L100.0100 #### [facility] [address] [place], [address] Erythrocyte distribution width (RBC) [Ratio] 13.7 % Normal 11.6-14.6 [facility] Comment on above: Performed By: #### L 500.4050, L501.2300, L100.0100 #### [facility] [address] [place], [address] Hematocrit (Bld) [Volume fraction] 40.4 % Normal 37-47 [facility] Comment on above: Performed By: #### L 500.4050, L501.2300, L100.0100 #### [facility] [address] [place], [address] Hemoglobin (Bld) [Mass/Vol] 13.5 g/dL Normal 12.0-15.0 [facility] Comment on above: Performed By: #### L 500.4050, L501.2300, L100.0100 #### [facility] [address] [place], [address] IG% 0.800 Normal 0.0-0.9 [facility] Comment on above: Result Comment: IG% - Immature Granulocytes (promyelocytes, myelocytes and metamyelocytes) > 1% indicates that a LEFT SHIFT is Present. Performed By: #### L 500.4050, L501.2300, L100.0100 #### [facility] [address] [place], [address] Lymphocytes/100 WBC (Bld) 40.3 % Normal 19-41 [facility] Comment on above: Performed By: #### L 500.4050, L501.2300, L100.0100 #### [facility] [address] [place], [address] MCH (RBC) [Entitic mass] 32.6 pg High 27.0-32.0 [facility] Comment on above: Performed By: #### L 500.4050, L501.2300, L100.0100 #### [facility] [address] [place], [address] MCHC (RBC) [Mass/Vol] 33.4 g/dL Normal 32-36 [facility] Comment on above: Performed By: #### L 500.4050, L501.2300, L100.0100 #### [facility] [address] [place], [address] MCV (RBC) [Entitic vol] 97.6 fL Normal 81-99 [facility] Comment on above: Performed By: #### L 500.4050, L501.2300, L100.0100 #### [facility] [address] [place], [address] Monocytes/100 WBC (Bld) 7.8 % Normal 0-10 [facility] Comment on above: Performed By: #### L 500.4050, L501.2300, L100.0100 #### [facility] [address] [place], [address] Neutrophils/100 WBC (Bld) 45.1 % Low 47-70 [facility] Comment on above: Performed By: #### L 500.4050, L501.2300, L100.0100 #### [facility] [address] [place], [address] Nucleated RBC (Bld) [#/Vol] 0 10*3/uL Normal 0-5 [facility] Comment on above: Performed By: #### L 500.4050, L501.2300, L100.0100 #### [facility] [address] [place], [address] Platelet mean volume (Bld) [Entitic vol] 9.5 fL Normal 6.2-12.0 [facility] Comment on above: Performed By: #### L 500.4050, L501.2300, L100.0100 #### [facility] [address] [place], [address] Platelets (Bld) [#/Vol] 268 10*3/uL Normal 150-450 [facility] Comment on above: Performed By: #### L 500.4050, L501.2300, L100.0100 #### [facility] [address] [place], [address] RBC (Bld) [#/Vol] 4.14 10*6/uL Low 4.2-5.4 [facility] Comment on above: Performed By: #### L 500.4050, L501.2300, L100.0100 #### [facility] [address] [place], [address] RDW SD 49.7 fl High 35.1-43.9 [facility] Comment on above: Performed By: #### L 500.4050, L501.2300, L100.0100 #### [facility] [address] [place], [address] WBC (Bld) [#/Vol] 5.0 10*3/uL Normal 4.4-11.[address] [facility] Comment on above: Performed By: #### L 500.4050, L501.2300, L100.0100 #### [facility] [address] [place], [address] Comprehensive Metabolic Prof ilon 03-06-2025 Albumin [Mass/Vol] 3.5 g/dL Normal 3.5-5.[address] [facility] Comment on above: Performed By: #### L 500.4050, L501.2300, L100.0100 #### [facility] [address] [place], [address] Albumin/Globulin [Mass ratio] 1.7 {ratio} Normal 0.9-2.4 [facility] Comment on above: Performed By: #### L 500.4050, L501.2300, L100.0100 #### [facility] [address] [place], [address] ALK PHOS 110 U/L High 35-104 [facility] Comment on above: Performed By: #### L 500.4050, L501.2300, L100.0100 #### [facility] [address] [place], [address] ALT [Catalytic activity/Vol] 13 U/L Normal <=34 [facility] Comment on above: Performed By: #### L 500.4050, L501.2300, L100.0100 #### [facility] [address] [place], [address] AST [Catalytic activity/Vol] 20 U/L Normal <=31 [facility] Comment on above: Performed By: #### L 500.4050, L501.2300, L100.0100 #### [facility] [address] [place], [address] Bilirubin [Mass/Vol] 0.70 mg/dL Normal 0.00-1.30 [place] Comment on above: Performed By: #### L 500.4050, L501.2300, L100.0100 #### [facility] [address] [place], [address] BUN/CRE 17.7 RATIO Normal 10-20 [facility] Comment on above: Performed By: #### L 500.4050, L501.2300, L100.0100 #### [facility] [address] [place], [address] Calcium [Mass/Vol] 8.6 mg/dL Normal 7.6-11.[address] [facility] Comment on above: Performed By: #### L 500.4050, L501.2300, L100.0100 #### [facility] [address] [place], [address] Chloride [Moles/Vol] 105 mmol/L Normal 98-108 [place] Comment on above: Performed By: #### L 500.4050, L501.2300, L100.0100 #### [facility] [address] [place], [address] CO2 [Moles/Vol] 24.4 mmol/L Normal 21.0-32.0 [facility] Comment on above: Performed By: #### L 500.4050, L501.2300, L100.0100 #### [facility] [address] [place], [address] Creatinine [Mass/Vol] 0.60 mg/dL Low 0.70-1.20 [facility] Comment on above: Performed By: #### L 500.4050, L501.2300, L100.0100 #### [facility] [address] [place], [address] ECRCL 104.17 ml/min Normal 50-250 [facility] Comment on above: Performed By: #### L 500.4050, L501.2300, L100.0100 #### [facility] [address] [place], [address] GAP 9 Normal 5-15 [facility] Comment on above: Performed By: #### L 500.4050, L501.2300, L100.0100 #### [facility] [address] [place], [address] GFR/1.73 sq M.predicted among non-blacks MDRD (S/P/Bld) [Vol rate/Area] 103 mL/min/{1.73_m2} Normal >60 [facility] Comment on above: Result Comment: mL/m in/1.73m2 CKD-EPI Creatinine Equation (2020) Performed By: #### L 500.4050, L501.2300, L100.0100 #### [facility] [address] [place], [address] Globulin (S) [Mass/Vol] 2.0 g/dL Low 2.2-4.2 [facility] Comment on above: Performed By: #### L 500.4050, L501.2300, L100.0100 #### [facility] [address] [place], [address] Glucose [Mass/Vol] 108 mg/dL High 70-[address] [facility] Comment on above: Performed By: #### L 500.4050, L501.2300, L100.0100 #### [facility] [address] [place], [address] Potassium [Moles/Vol] 3.6 mmol/L Normal 3.3-5.1 [facility] Comment on above: Performed By: #### L 500.4050, L501.2300, L100.0100 #### [facility] [address] [place], [address] Sodium [Moles/Vol] 138 mmol/L Normal 133-[address] [facility] Comment on above: Performed By: #### L 500.4050, L501.2300, L100.0100 #### [facility] [address] [place], [address] T PROT 5.5 g/dL Low 5.9-8.4 [facility] Comment on above: Performed By: #### L 500.4050, L501.2300, L100.0100 #### [facility] [address] [place], [address] Urea nitrogen [Mass/Vol] 11 mg/dL Normal 4-19 [facility] Comment on above: Performed By: #### L 500.4050, L501.2300, L100.0100 #### [facility] [address] [place], [address] Phosphoruson 03-06-2025 Phosphate [Mass/Vol] 3.8 mg/dL Normal 2.7-4.5 [place] Comment on above: Performed By: #### L 500.4050, L501.2300, L100.0100 #### [facility] [address] [place], [address] Alcohol, Blood (Medical)-Ser umon 03-05-2025 SERUM ETOH 38.6 mg/dL High <=10.0 [facility] Comment on above: Result Comment: This test is for medical purposes only. The legal definition of intoxication varies according to local law. Performed By: #### L 100.0100, L500.4050, L300.3900, L505.5000, L501.9100 #### [facility] [address] [place], [address] CBC W/Diff, Automatedon 02-21 Absolute Lymph 2.60 X10 3/uL Normal 0.83-4.51 [facility] Comment on above: Performed By: #### L 100.0100, L500.4050, L300.3900, L505.5000, L501.9100 #### [facility] [address] [place], [address] Absolute Neut 3.9 X10 3/uL Normal 2.0-7.7 [facility] Comment on above: Performed By: #### L 100.0100, L500.4050, L300.3900, L505.5000, L501.9100 #### [facility] [address] [place], [address] Basophils/100 WBC (Bld) 0.8 % Normal 0-1 [facility] Comment on above: Performed By: #### L 100.0100, L500.4050, L300.3900, L505.5000, L501.9100 #### [facility] [address] [place], [address] Eosinophils/100 WBC (Bld) 4.2 % Normal 0-5 [facility] Comment on above: Performed By: #### L 100.0100, L500.4050, L300.3900, L505.5000, L501.9100 #### [facility] [address] [place], [address] Erythrocyte distribution width (RBC) [Ratio] 13.4 % Normal 11.6-14.6 [facility] Comment on above: Performed By: #### L 100.0100, L500.4050, L300.3900, L505.5000, L501.9100 #### [facility] [address] [place], [address] Hematocrit (Bld) [Volume fraction] 45.2 % Normal 37-47 [facility] Comment on above: Performed By: #### L 100.0100, L500.4050, L300.3900, L505.5000, L501.9100 #### [facility] [address] [place], [address] Hemoglobin (Bld) [Mass/Vol] 15.7 g/dL High 12.0-15.0 [facility] Comment on above: Performed By: #### L 100.0100, L500.4050, L300.3900, L505.5000, L501.9100 #### [facility] [address] [place], [address] IG% 0.300 Normal 0.0-0.9 [facility] Comment on above: Result Comment: IG% - Immature Granulocytes (promyelocytes, myelocytes and metamyelocytes) > 1% indicates that a LEFT SHIFT is Present. Performed By: #### L 100.0100, L500.4050, L300.3900, L505.5000, L501.9100 #### [facility] [address] [place], [address] Lymphocytes/100 WBC (Bld) 35.1 % Normal 19-41 [facility] Comment on above: Performed By: #### L 100.0100, L500.4050, L300.3900, L505.5000, L501.9100 #### [facility] [address] [place], [address] MCH (RBC) [Entitic mass] 33.0 pg High 27.0-32.0 [facility] Comment on above: Performed By: #### L 100.0100, L500.4050, L300.3900, L505.5000, L501.9100 #### [facility] [address] [place], [address] MCHC (RBC) [Mass/Vol] 34.7 g/dL Normal 32-36 [facility] Comment on above: Performed By: #### L 100.0100, L500.4050, L300.3900, L505.5000, L501.9100 #### [facility] [address] [place], [address] MCV (RBC) [Entitic vol] 95.0 fL Normal 81-99 [facility] Comment on above: Performed By: #### L 100.0100, L500.4050, L300.3900, L505.5000, L501.9100 #### [facility] [address] [place], [address] Monocytes/100 WBC (Bld) 6.8 % Normal 0-10 [facility] Comment on above: Performed By: #### L 100.0100, L500.4050, L300.3900, L505.5000, L501.9100 #### [facility] [address] [place], [address] Neutrophils/100 WBC (Bld) 52.8 % Normal 47-70 [facility] Comment on above: Performed By: #### L 100.0100, L500.4050, L300.3900, L505.5000, L501.9100 #### [facility] [address] [place], [address] Nucleated RBC (Bld) [#/Vol] 0 10*3/uL Normal 0-5 [facility] Comment on above: Performed By: #### L 100.0100, L500.4050, L300.3900, L505.5000, L501.9100 #### [facility] [address] [place], [address] Platelet mean volume (Bld) [Entitic vol] 9.0 fL Normal 6.2-12.0 [facility] Comment on above: Performed By: #### L 100.0100, L500.4050, L300.3900, L505.5000, L501.9100 #### [facility] [address] [place], [address] Platelets (Bld) [#/Vol] 333 10*3/uL Normal 150-450 [facility] Comment on above: Performed By: #### L 100.0100, L500.4050, L300.3900, L505.5000, L501.9100 #### [facility] [address] [place], [address] RBC (Bld) [#/Vol] 4.76 10*6/uL Normal 4.2-5.4 [facility] Comment on above: Performed By: #### L 100.0100, L500.4050, L300.3900, L505.5000, L501.9100 #### [facility] [address] [place], [address] RDW SD 47.1 fl High 35.1-43.9 [facility] Comment on above: Performed By: #### L 100.0100, L500.4050, L300.3900, L505.5000, L501.9100 #### [facility] [address] [place], [address] WBC (Bld) [#/Vol] 7.4 10*3/uL Normal 4.4-11.[address] [facility] Comment on above: Performed By: #### L 100.0100, L500.4050, L300.3900, L505.5000, L501.9100 #### [facility] [address] [place], [address] Comprehensive Metabolic Prof [facility] 03-05-2025 Albumin [Mass/Vol] 4.3 g/dL Normal 3.5-5.[address] [facility] Comment on above: Performed By: #### L 100.0100, L500.4050, L300.3900, L505.5000, L501.9100 #### [facility] [address] [place], [address] Albumin/Globulin [Mass ratio] 1.7 {ratio} Normal 0.9-2.4 [facility] Comment on above: Performed By: #### L 100.0100, L500.4050, L300.3900, L505.5000, L501.9100 #### [facility] [address] [place], [address] ALK PHOS 135 U/L High 35-104 [facility] Comment on above: Performed By: #### L 100.0100, L500.4050, L300.3900, L505.5000, L501.9100 #### [facility] [address] [place], [address] ALT [Catalytic activity/Vol] 18 U/L Normal <=34 [facility] Comment on above: Performed By: #### L 100.0100, L500.4050, L300.3900, L505.5000, L501.9100 #### [facility] [address] [place], [address] AST [Catalytic activity/Vol] 22 U/L Normal <=31 [facility] Comment on above: Performed By: #### L 100.0100, L500.4050, L300.3900, L505.5000, L501.9100 #### [facility] [address] [place], [address] Bilirubin [Mass/Vol] 0.48 mg/dL Normal 0.00-1.30 [place] Comment on above: Performed By: #### L 100.0100, L500.4050, L300.3900, L505.5000, L501.9100 #### [facility] [address] [place], [address] BUN/CRE 10.6 RATIO Normal 10-20 [facility] Comment on above: Performed By: #### L 100.0100, L500.4050, L300.3900, L505.5000, L501.9100 #### [facility] [address] [place], [address] Calcium [Mass/Vol] 9.3 mg/dL Normal 7.6-11.[address] [facility] Comment on above: Performed By: #### L 100.0100, L500.4050, L300.3900, L505.5000, L501.9100 #### [facility] [address] [place], [address] Chloride [Moles/Vol] 102 mmol/L Normal 98-108 [place] Comment on above: Performed By: #### L 100.0100, L500.4050, L300.3900, L505.5000, L501.9100 #### [facility] [address] [place], [address] CO2 [Moles/Vol] 27.2 mmol/L Normal 21.0-32.0 [facility] Comment on above: Performed By: #### L 100.0100, L500.4050, L300.3900, L505.5000, L501.9100 #### [facility] [address] [place], [address] Creatinine [Mass/Vol] 0.60 mg/dL Low 0.70-1.20 [facility] Comment on above: Performed By: #### L 100.0100, L500.4050, L300.3900, L505.5000, L501.9100 #### [facility] [address] [place], [address] ECRCL 104.47 ml/min Normal 50-250 [facility] Comment on above: Performed By: #### L 100.0100, L500.4050, L300.3900, L505.5000, L501.9100 #### [facility] [address] [place], [address] GAP 12 Normal 5-15 [facility] Comment on above: Performed By: #### L 100.0100, L500.4050, L300.3900, L505.5000, L501.9100 #### [facility] [address] [place], [address] GFR/1.73 sq M.predicted among non-blacks MDRD (S/P/Bld) [Vol rate/Area] 103 mL/min/{1.73_m2} Normal >60 [facility] Comment on above: Result Comment: mL/m in/1.73m2 CKD-EPI Creatinine Equation (2020) Performed By: #### L 100.0100, L500.4050, L300.3900, L505.5000, L501.9100 #### [facility] [address] [place], [address] Globulin (S) [Mass/Vol] 2.6 g/dL Normal 2.2-4.2 [facility] Comment on above: Performed By: #### L 100.0100, L500.4050, L300.3900, L505.5000, L501.9100 #### [facility] [address] [place], [address] Glucose [Mass/Vol] 97 mg/dL Normal 70-[address] [facility] Comment on above: Performed By: #### L 100.0100, L500.4050, L300.3900, L505.5000, L501.9100 #### [facility] [address] [place], [address] Potassium [Moles/Vol] 3.6 mmol/L Normal 3.3-5.1 [facility] Comment on above: Performed By: #### L 100.0100, L500.4050, L300.3900, L505.5000, L501.9100 #### [facility] [address] [place], [address] Sodium [Moles/Vol] 141 mmol/L Normal 133-[address] [facility] Comment on above: Performed By: #### L 100.0100, L500.4050, L300.3900, L505.5000, L501.9100 #### [facility] [address] [place], [address] T PROT 6.9 g/dL Normal 5.9-8.4 [facility] Comment on above: Performed By: #### L 100.0100, L500.4050, L300.3900, L505.5000, L501.9100 #### [facility] [address] [place], [address] Urea nitrogen [Mass/Vol] 6 mg/dL Normal 4-19 [facility] Comment on above: Performed By: #### L 100.0100, L500.4050, L300.3900, L505.5000, L501.9100 #### [facility] Laboratory [address] [place], [address] Emergency Department Summary on 03-05-2025 Emergency Department Summary [facility] Medical Records Department [address] [place] [address] Emergency Department Summary 03/05/25 MR#: [id number] Acct: [id number] Name: KAMI WATTS Rep #: [id number] : 1965 59 From: Christian Montelongo DO PCP: Dr. Earnest Dueñas MD Status:ADM IN Location: [place] [address] HPI History of Present Illness Chief Complaint: ETOH Intox Informant: patient Narrative Narrative: 59-year-old female presenting to the emergency room requesting detox from alcohol. Patient states that she has been on Suboxone for due to opioid addiction for about 6 years. She states in November she went through detox for alcohol but unfortunately shortly after began to have problems with one of her children. This led to her drinking margaritas throughout the day and night. She states that she is tired of dry heaving in the morning diarrhea and always wondering about her next drink. She states that she is exhausted from it. She states her last drink was yesterday 2300 hrs. She denies any pending legal issues. She is not currently working. She states she would have come in earlier today but she was babysitting her granddaughter. [facility] Medical History Alcohol use disorder Tobacco use Alcohol abuse with physiological dependence Substance abuse Depression Kidney stones Hypertension Generalized anxiety disorder PTSD (post-traumatic stress disorder) Major depressive disorder, recurrent severe without psychotic features Wears dentures Wears glasses Post-menopausal Bladder disease Hearing loss, left Hearing loss, right Osteoporosis Smoker Migraines Anxiety Hepatitis Irregular heart beat Drug abuse Duodenitis Home Medications ???Medication ???Instructions ???Recorded ???Last Taken ???Type buprenorphine 8 mg-naloxone 2 mg 1 ea sublingual BID 07/13/2411/10 History sublingual film clonidine HCl 0.1 mg tablet 0.1 mg PO BID PRN anxiety #60 tabs 12/02/24 Unknown Rx escitalopram oxalate 20 mg tablet 20 mg PO DAILY 30 days #30 tabs 0 12/02/24 Unknown Rx (Lexapro) buspirone 10 mg tablet 10 mg PO BID 30 days #60 tabs 12/24 03/17 Unknown Rx Allergy/AdvReac Type Severity Reaction Status Date / Time No Known Allergies Allergy Verified 03/05/25 18:41 Family History Mother Breast cancer Heart disease Hypertension Diabetes Father Cancer pt is unsure what kind of cancer Heart disease Hypertension Diabetes Sister Breast cancer Sister Ovarian cancer Surgical History S/P vaginal hysterectomy Hx of hand surgery History of cataract surgery History of tubal ligation History of umbilical hernia repair Social History adopted: No household members: none number of children: 6 current occupational status: unemployed pets and animals: Yes pets and animals: cat(s) sexually active: No Smoking Status: Heavy Smoker (>10/day) alcohol intake: former details: pt sober since 2020 caffeine: Yes seatbelt use: always do you feel safe at home: Yes ROS ROS ED Constitutional Constitutional ED: Denies chills or weight loss Eyes Eyes: Denies change in vision or diplopia ENT ENT ED: Denies ear pain, rhinorrhea or sore throat Cardiovascular Cardiovascular: Reports palpitations; Denies chest pain, orthopnea or racing heartbeat Respiratory/Chest Respiratory/Chest: Denies cough, dyspnea or orthopnea Gastrointestinal Gastrointestinal: Reports diarrhea and nausea; Denies abdominal pain or vomiting Genitourinary Genitourinary ED: Denies dysuria, hematuria or urinary frequency Musculoskeletal Musculoskeletal: Denies arthralgias or myalgias Integumentary Denies abscess or rash Neurologic Neurologic: Reports headache(s); Denies weakness Psychiatric Psychiatric: Reports anxiety and depression; Denies suicidal ideation or suicidal thoughts Endocrine Endocrinology: Denies polydipsia, polyphagia or polyuria Allergic/Immunologic Allergic/Immunologic ED: Denies mouth swelling, tongue swelling or urticaria EXAM Physical Exam Const Vital Signs: 03/05/25 18:41 Temperature 98.6 F Temperature Source Oral Pulse Rate 101 H Respiratory Rate 18 Blood Pressure 147/100 H Blood Pressure Mean 115 Pulse Ox 97 Oxygen Delivery Method Room Air Positive well nourished and well developed General Appearance ED: well developed HEENT Reports normocephalic, head/scalp atraumatic and moist mucous membranes Eyes PERRL and EOMs intact bilaterally Neck no lymphadenopathy, supple and no JVD Resp normal respiratory effort and clear to auscultation bilaterally Cardio regula (more content not included)... Normal [facility] Folates,Serum (Folic Acid)on 03-05-2025 FOLATES,SERUM 4.91 ng/mL Normal 4.60-34.80 [facility] Comment on above: Result Comment: Hemo lysis, Results will be affected, Requires Recollection. Performed By: #### L 400.0001 #### [facility] Laboratory [address] [place], [address] H AND P Exam - [place] 03-05-2025 H&P Exam - Hospitalist [facility] Medical Records Department [address] [place] [address] H P Exam - Hospitalist 03/05/254 MR#: [id number] Acct: [id number] Name: KAMI WATTS Rep #: [id number] : 1965 59 From: Jeffry Cortez DO PCP: Dr. Earnest Dueñas MD Status:ADM IN Location: [facility] [id number] [facility] General Date of Admission: 03/05/25 Date of Service: 03/05/25 Chief Complaint: Wants Help with EtOH Detox. HPI Narrative KAMI WATTS, is a 59 F with a past medical history of essential hypertension; currently not on daily treatment, obesity; with a BMI of 33.3 this admission, tobacco abuse, history of depression with anxiety and PTSD; on escitalopram, buspirone on clonidine as needed twice daily, history of opiate abuse; on buprenorphine-naloxone SL twice daily for the past 6 years, history of hepatitis C; with patient having completed course of antiviral treatment, history of duodenitis, history of migraine headaches, history of renal calculi, history of prolapsed bladder, history of umbilical hernia; s/p repair, history of vaginal hysterectomy, history of tubal ligation, history of cataract surgery, osteoporosis; on ergocalciferol weekly, OA and history of recent admission here from November 10, 2024 to November 12, 2024 for treatment of alcohol detox in the setting of previous admission in July 13, 2024 to July 16, 2024 for treatment of alcohol detox who now once again re-presents to [facility] ER complaining of wanting help with EtOH detoxification. Ms. Watts reports she recently relapsed into her alcohol abuse because she is having difficulties with her daughter which acutely heightened her chronic anxiety and depression caused her to drink jenny mix throughout the day and night - but she denies SI or HI. She states her last alcoholic drink was at 11 PM on the evening of March 04, 2025 resulting in her waking up having diarrhea and severe fatigue and craving her next drink. She denies abusing other illicit drugs, other toxic ingestions or recent illness. She states she was planning to come in earlier today but she was babysitting her granddaughter so she could not seek medical attention at that time apparently. She admits to being exhausted from trying to maintain her addiction but she denies associated fever, chills, nausea, vomiting, chest pain, headache, seizure activity, hallucinations or shortness of breath. In the ER she was noted to have a BLAIRE of 38.6 mg/dL consistent with Impending EtOH Withdrawal in the setting of Chronic EtOH Abuse causing a greater pattern of serial readmission for the same issue indicating the seeming futility and ineffectiveness of this strategy of treatment. Nevertheless, she was admitted to the general medical floor for ongoing care for a stay that is expected to extend beyond 2 midnights. [facility] Medical History Alcohol use disorder Tobacco use Alcohol abuse with physiological dependence Substance abuse Depression Kidney stones Hypertension Generalized anxiety disorder PTSD (post-traumatic stress disorder) Major depressive disorder, recurrent severe without psychotic features Wears dentures Wears glasses Post-menopausal Bladder disease Hearing loss, left Hearing loss, right Osteoporosis Smoker Migraines Anxiety Hepatitis Irregular heart beat Drug abuse Duodenitis Home Medications ???Medication ???Instructions ???Recorded ???Last Taken ???Type buprenorphine 8 mg-naloxone 2 mg 1 ea sublingual BID 07/13/2411/10 History sublingual film clonidine HCl 0.1 mg tablet 0.1 mg PO BID PRN anxiety #60 tabs 12/02/24 Unknown Rx escitalopram oxalate 20 mg tablet 20 mg PO DAILY 30 days #30 tabs 0 12/02/24 Unknown Rx (Lexapro) buspirone 10 mg tablet 10 mg PO BID 30 days #60 tabs 12/24 03/17 Unknown Rx ergocalciferol (vitamin D2) 1,250 1,250 mcg PO QWEEK 03/05/25 Unkno wn History mcg (50,000 unit) capsule Allergy/AdvReac Type Severity Reaction Status Date / Time No Known Allergies Allergy Verified 03/05/25 18:41 Family History Mother Breast cancer Heart disease Hypertension Diabetes Father Cancer pt is unsure what kind of cancer Heart disease Hypertension Diabetes Sister Breast cancer Sister Ovarian cancer Surgical History S/P vaginal hysterectomy Hx of hand surgery History of cataract surgery History of tubal ligation History of umbilical hernia repair Social History adopted: No household members: none number of children: 6 current occupational status: unemployed pets and animals: Yes pets and animals: cat(s) (more content not included)... Normal [facility] Magnesiumon 03-05-2025 Magnesium [Mass/Vol] 1.8 mg/dL Normal 1.5-2.2 [place] Comment on above: Performed By: #### L 400.0001 #### [facility] Laboratory [address] [place], [address] Prothrombin Time w/INRon INR Coag (PPP) [Relative time] 1.1 {INR} Normal [facility] Comment on above: Performed By: #### L 100.0100, L500.4050, L300.3900, L505.5000, L501.9100 #### [facility] Laboratory [address] [place], [address] PT Coag (PPP) [Time] 13.9 s Normal 11.7-14.9 [place] Comment on above: Performed By: #### L 100.0100, L500.4050, L300.3900, L505.5000, L501.9100 #### [facility] Laboratory [address] [place], [address] Thyroid Stim Hormone (TSH)on 03-05-2025 TSH 0.908 uIU/mL Normal 0.300-4.200 [facility] Comment on above: Order Comment: CLEAN CATCH Performed By: #### L 400.0001 #### [facility] Laboratory [address] [place], [address] Urine Drug Screen (VISTA)on 03-05-2025 AMPHETAMINES Negative Normal <1000 ng/mL [facility] Comment on above: Performed By: #### L 100.0100, L500.4050, L300.3900, L505.5000, L501.9100 #### [facility] Laboratory [address] [place], [address] BARBITIURATES Negative Normal < 200 ng/mL [facility] Comment on above: Performed By: #### L 100.0100, L500.4050, L300.3900, L505.5000, L501.9100 #### [facility] Laboratory [address] [place], [address] BENZODIAZIPINE Negative Normal < 200 ng/mL [facility] Comment on above: Performed By: #### L 100.0100, L500.4050, L300.3900, L505.5000, L501.9100 #### [facility] Laboratory [address] [place], [address] BUP Ur Drug Scr Positive Normal < 200 ng/mL [facility] Comment on above: Result Comment: If c onfirmation testing is needed, a separate order will be required to send out testing to the reference laboratory. Performed By: #### L 100.0100, L500.4050, L300.3900, L505.5000, L501.9100 #### [facility] [address] [place], [address] COCAINE Negative Normal < 300 ng/mL [facility] Comment on above: Performed By: #### L 100.0100, L500.4050, L300.3900, L505.5000, L501.9100 #### [facility] Laboratory [address] [place], [facility] Fentanyl Negative Normal [facility] Comment on above: Performed By: #### L 100.0100, L500.4050, L300.3900, L505.5000, L501.9100 #### [facility] Laboratory [address] [place], [facility] METHADONE Negative Normal < 300 ng/mL [facility] Comment on above: Performed By: #### L 100.0100, L500.4050, L300.3900, L505.5000, L501.9100 #### [facility] Laboratory [address] [place], [facility] OPIATES Negative Normal < 300 ng/mL [facility] Comment on above: Performed By: #### L 100.0100, L500.4050, L300.3900, L505.5000, L501.9100 #### [facility] Laboratory [address] [place], [facility] OXYCODONE Negative Normal < 100 ng/mL [facility] Comment on above: Performed By: #### L 100.0100, L500.4050, L300.3900, L505.5000, L501.9100 #### [facility] Laboratory [address] [place], [facility] PCP Negative Normal < 25 ng/mL [facility] Comment on above: Performed By: #### L 100.0100, L500.4050, L300.3900, L505.5000, L501.9100 #### [facility] Laboratory [address] [place], [address] THC Negative Normal < 50 ng/mL [facility] Comment on above: Performed By: #### L 100.0100, L500.4050, L300.3900, L505.5000, L501.9100 #### [facility] Laboratory [address] [place], [address] Vitamin B12on 03-05-2025 Cobalamin (Vitamin B12) [Mass/Vol] 615 pg/mL Normal 180-914 [facility] Comment on above: Order Comment: CLEAN CATCH Performed By: #### L 400.0001 #### [facility] Laboratory [address] [place], [address] 25(OH)D3 SerPl-mCncon 2024 25-hydroxyvitamin D3 [Mass/Vol] 18.5 ng/mL Low 31.0-80.0 [facility] Comment on above: Order Comment: Speci men Type: BLOOD SPECIMENOrdering Facility: [facility] Address: [address] [place] [address] Result Comment: Clas sification of 25 [place] Vitamin D status: Deficiency/Insufficiency: < or = 30 ng/ml. Sufficiency/Optimal Levels: 31-80 ng/mL Toxicity: > 100 ng/mL. Test performed by chemiluminescent immunoassay. Performed By: #### 1 989-3 ####[facility] LABCLIA [id number] [address] [place] CNOVon 02-28-2025 CNOV Office Visit (FAMPWS ) KAMI WATTS ([id number]) 1965 F NFR Date Time Provider Department 02/28/25 11:20 AM JOAN TALLEY During your visit today, we recorded the following information about you: Pulse Blood pressure Weight 83/minute 145/96 86 kg Joan Talley APRN.CANDY PACKER 02/28/2025 11:56 AM Signed Chief Complaint Patient presents with: Physical HPI Kami Watts is a 59 year old female who presents here today for Above Complaints.. Patient presents for annual physical. Past medical history, appointments, medications, allergies reviewed. [...] medication use - NO IV drug use. Encounter for Medicare annual wellness exam 05/10/2015 Last done: 03/16/24 Esophageal reflux Gastroesophageal reflux Family history of [...] W/WO ENDOCERVIX BX W/O DILAT SPX 03/03/2007 EXT HYSTERECTOMY,W/PARTIAL VAGINECTO 07/31/2023 LIG/TRNSXJ FLP TUBE ABDL/VAG APPR UNI/BI 2002 [...] Disease Mother Hypertension Mother Hearing Loss Father SD/ colon cancer Stroke Father Diabetes Father Hypertension Father Aneurysm Father Coronary Artery Disease Maternal Grandmother Hypertension Maternal Grandmother Ischemic Heart Disease Maternal Grandfather Hypertension Paternal Grandmother Coronary Artery Disease Paternal Grandmother Coronary Artery Disease Paternal Grandfather Cancer Sister CERVICAL/colon cancer Cancer Paternal Aunt DOESN'T KNOW TYPE Heart Brother SD Hypertension Daughter Colon Cancer Brother Patient Allergies ALLERGIES No Known Allergies Current Medications Current Outpatient Medications on File Prior to Visit Medication Sig busPIRone (BUSPAR) 5 mg tablet Take 1 tablet by mouth every 12 hours. cholecalciferol, Vitamin D3, (VITAMIN D3) 1,250 mcg (50,000 unit) cap capsule Take 1 capsule by mouth one time a week. escitalopram oxalate (LEXAPRO) 10 mg tablet Take 1 tablet by mouth once daily. albuterol HFA (PROAIR HFA) 90 mcg/actuation inhaler Inhale 2 Puffs as instructed every 4 hours as needed. buprenorphine-naloxone (SUBOXONE) 8-2 mg film Dissolve 2 Film under the tongue once daily. No current facility-administered medications on file prior to visit. Social History Social History Tobacco Use Smoking status: Every Day Current packs/day: 1.00 Average packs/day: 1 pack/day for 40.0 years (40.0 ttl pk-yrs) Types: Cigarettes Smokeless tobacco: Never Tobacco comments: half a pack a day Vaping Use Vaping status: Never Used Substance (more content not included)... Normal [facility] HbA1c (Bld)on 02-28-2025 Average glucose Estimated from glycated hemoglobin (Bld) [Mass/Vol] 105 mg/dL Normal [facility] Comment on above: Order Comment: Marcus fernandes Type: BLOOD SPECIMENOrdering Facility: [facility] Address: [address] [place] [address] Result Comment: eAG: (Estimated average glucose) is a calculated value from HgbA1c and is provider relations representative of the average blood glucose level in the last 2-3 month period. Performed By: #### 5 5454-3 ####[facility] LABCLIA [id number] [place] [address] [place] HbA1c (Bld) [Mass fraction] 5.3 % Normal 4.3-5.6 [facility] Comment on above: Order Comment: Marcus [facility] Type: BLOOD SPECIMENOrdering Facility: [facility] Address: [address] [place] [address] Result Comment: [place] Diabetes Association guidelines indicate that patients with HgbA1c in the range 5.7-6.4% are at increased risk for development of diabetes, and intervention by lifestyle modification may be beneficial. HgbA1c greater or equal to 6.5% is considered diagnostic of diabetes. Performed By: #### 5 5454-3 ####[facility] LABCLIA [id number] [place] [address] [place] Magnesium SerPl-mCncon 02-28 Magnesium [Mass/Vol] 2.1 mg/dL Normal 1.7-2.[address] [facility] Comment on above: Order Comment: Marcus [facility] Type: BLOOD SPECIMENOrdering Facility: [facility] Address: [address] [place] [address] Performed By: #### 3 016-3, 20363-0, 2132-9 ####[facility] LABCLIA [id number] [place] [id number] [place] TSH SerPl-aCncon 02-28-2025 TSH Qn 0.564 m[IU]/L Normal 0.270-4.200 [facility] Comment on above: Order Comment: Speci men Type: BLOOD SPECIMENOrdering Facility: [facility] Address: [address] [place] [address] Performed By: #### 3 016-3, , 2132-07 ####[facility] [id number] [place] [id number] [place] Vit B12 SerPl-mCncon 025 Cobalamin (Vitamin B12) [Mass/Vol] 651 pg/mL Normal 232-1245 [facility] Comment on above: Order Comment: Speci men Type: BLOOD SPECIMENOrdering Facility: [facility] Address: [address] [place] [address] Performed By: #### 3 016-3, , 2132-07 ####[facility] [id number] [place] [id number] [facility] [place] Vel 02-22-20[facility] KAMI WATTS ([id number]) 1965 F NFR Date Time Provider Department 02/22/25 EARNEST DUEÑAS During your visit today, we recorded the following information about you: Fior Wheatley, PACO 02/22/2025 4:24 PM Signed Patient has Wellness appt with Joan Talley CNP on 02/28/25. Pt states she had external labs completed recently, ordered by an online therapy company called [facility] [employer] that works with suboxone therapy. Pt states she will have this company fax lab results to Joan's office for review at her 02/28 appt. Please call patient for any questions or concerns, . Fior Wheatley RN Allergies As of Date: 02/22/2025 (No Known Allergies) Date Reviewed: 11/01/2024 Reviewed by: Dottie Oconnell LPN - Fully Assessed Reason for Visit: Patient Update [1234] Prescriptions as of 02/23/2025 - busPIRone (BUSPAR) 5 mg tablet Take 1 tablet by mouth every 12 hours. - cholecalciferol, Vitamin D3, (VITAMIN D3) 1,250 mcg (50,000 unit) cap capsule Take 1 capsule by mouth one time a week. - escitalopram oxalate (LEXAPRO) 10 mg tablet Take 1 tablet by mouth once daily. - albuterol HFA (PROAIR HFA) 90 mcg/actuation inhaler Inhale 2 Puffs as instructed every 4 hours as needed. - buprenorphine-naloxone (SUBOXONE) 8-2 mg film Dissolve 2 Film under the tongue once daily. Problem List As Of Date 02/22/2025 Noted Resolved Thoracic and lumbosacral neuritis [M54.14, M54.*03/05/2007 Insomnia, unspecified [G47.00] 08/24/2007 Decreased libido [R68.82] 08/24/2007 Adjustment disorder with depressed mood [F43.21]08/24/2007 Smoker [F17.200] 02/23/2008 Migraine with aura and without status migrainos*08/20/2009 Anxiety [F41.9] 06/28/2010 Drug addiction (HCC) [F19.20] IV drug abuse [F19.10] 02/14/2015 History of hepatitis C [Z86.19] 02/23/2015 Encounter for Medicare annual wellness exam [Z0*05/10/2015 Family history of early CAD [Z82.49] 01/29/2016 Acquired hypothyroidism [E03.9] 01/29/2016 Gastroesophageal reflux disease without esophag*01/29/2016 Encounter for gynecological examination without*08/29/2016 Marijuana use [F12.90] 09/01/2017 Moderate episode of recurrent major depressive *05/24/2020 Low serum vitamin B12 [E53.8] 06/04/2020 Bilateral hip joint arthritis [M16.0] 04/16/2021 Cervical arthritis [M47.812] 04/16/2021 Alcohol abuse [F10.10] 07/17/2021 Hypersomnia [G47.10] 09/06/2021 Actinic keratosis [L57.0] 03/16/2024 Encounter Status:Closed by JOAN TALLEY on 02/23/25 Normal [facility] HCV RNA KALI+probe Qnon 02-21 HCV RNA KALI+probe Ql Not detected Normal Not detected [facility] Comment on above: Order Comment: Speci men Type: BLOOD SPECIMENOrdering Facility: External Submitter Address: , , Performed By: #### 1 1011-4 ####[facility] LABCLIA [id number] [place] [address] [place] CBC W Auto Differential pane l (Bld)on 02-16-2025 Basophils (Bld) [#/Vol] 0.04 10*3/uL Normal <0.11 [facility] Comment on above: Order Comment: Speci men Type: BLOOD SPECIMENOrdering Facility: External Submitter Address: , , Performed By: #### 5 7021-8 ####[facility] LABIA [id number] [address] [place] Basophils/100 WBC (Bld) 0.5 % Normal [facility] Comment on above: Order Comment: Speci men Type: BLOOD SPECIMENOrdering Facility: External Submitter Address: , , Performed By: #### 5 7021-8 ####[facility] LABCLIA [id number] [place] [address] [place] Differential cell count method Nom (Bld) Auto Normal [facility] Comment on above: Order Comment: Speci men Type: BLOOD SPECIMENOrdering Facility: External Submitter Address: , , Performed By: #### 5 7021-8 ####[facility] LABCLIA [id number] [facility] [address] [place] [address] [place] Eosinophils (Bld) [#/Vol] 0.18 10*3/uL Normal <0.46 [facility] Comment on above: Order Comment: Speci men Type: BLOOD SPECIMENOrdering Facility: External Submitter Address: , , Performed By: #### 5 7021-8 ####[facility] LABCLIA [id number] [facility] [address] [place] [address] [place] Eosinophils/100 WBC (Bld) 2.3 % Normal [facility] Comment on above: Order Comment: Speci men Type: BLOOD SPECIMENOrdering Facility: External Submitter Address: , , Performed By: #### 5 7021-8 ####[facility] LABCLIA [id number] [facility] [address] [place] [address] [place] Erythrocyte distribution width (RBC) [Ratio] 13.2 % Normal 11.5-15.0 [facility] Comment on above: Order Comment: Speci men Type: BLOOD SPECIMENOrdering Facility: External Submitter Address: , , Performed By: #### 5 7021-8 ####[facility] LABCLIA [id number] [address] [place] [address] [facility] [place] Hematocrit (Bld) [Volume fraction] 43.8 % Normal 36.0-46.0 [facility] Comment on above: Order Comment: Speci men Type: BLOOD SPECIMENOrdering Facility: External Submitter Address: , , Performed By: #### 5 7021-8 ####[facility] LABCLIA [id number] [facility] [address] [place] [address] [place] Hemoglobin (Bld) [Mass/Vol] 14.6 g/dL Normal 11.5-15.5 [facility] Comment on above: Order Comment: Speci men Type: BLOOD SPECIMENOrdering Facility: External Submitter Address: , , Performed By: #### 5 7021-8 ####[facility] LABCLIA [id number] [address] [place] [address] [place] Immature granulocytes (Bld) [#/Vol] 10*3/uL Normal <0.10 [facility] Comment on above: Order Comment: Speci men Type: BLOOD SPECIMENOrdering Facility: External Submitter Address: , , Performed By: #### 5 7021-8 ####[facility] LABCLIA [id number] [facility] [address] [place] [address] [facility] Immature granulocytes/100 WBC (Bld) 0.3 % Normal [facility] Comment on above: Order Comment: Speci men Type: BLOOD SPECIMENOrdering Facility: External Submitter Address: , , Performed By: #### 5 7021-8 ####[facility] LABCLIA [id number] [address], [address] Lymphocytes (Bld) [#/Vol] 1.89 10*3/uL Normal 1.00-4.00 [facility] Comment on above: Order Comment: Speci men Type: BLOOD SPECIMENOrdering Facility: External Submitter Address: , , Performed By: #### 5 7021-8 ####[facility] LABCLIA [id number] [address], [address] Lymphocytes/100 WBC (Bld) 24.3 % Normal [facility] Comment on above: Order Comment: Speci men Type: BLOOD SPECIMENOrdering Facility: External Submitter Address: , , Performed By: #### 5 7021-8 ####[facility] LABCLIA [id number] [address] [place] [address] [place] MCH (RBC) [Entitic mass] 31.9 pg Normal 26.0-34.0 [facility] Comment on above: Order Comment: Speci men Type: BLOOD SPECIMENOrdering Facility: External Submitter Address: , , Performed By: #### 5 7021-8 ####[facility] LABCLIA [id number] [address], [address] MCHC (RBC) [Mass/Vol] 33.3 g/dL Normal 30.5-36.0 [facility] Comment on above: Order Comment: Speci men Type: BLOOD SPECIMENOrdering Facility: External Submitter Address: , , Performed By: #### 5 7021-8 ####[facility] LABIA [id number] [address], [facility]95 [facility] MCV (RBC) [Entitic vol] 95.8 fL Normal 80.0-100.0 [facility] Comment on above: Order Comment: Speci men Type: BLOOD SPECIMENOrdering Facility: External Submitter Address: , , Performed By: #### 5 7021-8 ####[facility] LABIA [id number] [address], [address] [place] Monocytes (Bld) [#/Vol] 0.47 10*3/uL Normal <0.87 [facility] Comment on above: Order Comment: Speci men Type: BLOOD SPECIMENOrdering Facility: External Submitter Address: , , Performed By: #### 5 7021-8 ####[facility] LABIA [id number] [address], [address] Monocytes/100 WBC (Bld) 6.0 % Normal [facility] Comment on above: Order Comment: Speci men Type: BLOOD SPECIMENOrdering Facility: External Submitter Address: , , Performed By: #### 5 7021-8 ####[facility] LABIA [id number] [address], [facility]95 [place] Neutrophils (Bld) [#/Vol] 5.18 10*3/uL Normal 1.45-7.50 [facility] Comment on above: Order Comment: Speci men Type: BLOOD SPECIMENOrdering Facility: External Submitter Address: , , Performed By: #### 5 7021-8 ####[facility] LABIA [id number] [address], [facility]95 [place] Neutrophils/100 WBC (Bld) 66.6 % Normal [facility] Comment on above: Order Comment: Speci men Type: BLOOD SPECIMENOrdering Facility: External Submitter Address: , , Performed By: #### 5 7021-8 ####[facility] LABCLIA [id number] [address] [place] [address] [place] Nucleated RBC (Bld) [#/Vol] 10*3/uL Normal <0.01 [facility] Comment on above: Order Comment: Speci men Type: BLOOD SPECIMENOrdering Facility: External Submitter Address: , , Performed By: #### 5 7021-8 ####[facility] LABIA [id number] [address] [place] [address] [place] Nucleated RBC/100 WBC (Bld) [Ratio] 0.0 /100 WBC Normal [facility] Comment on above: Order Comment: Speci men Type: BLOOD SPECIMENOrdering Facility: External Submitter Address: , , Performed By: #### 5 7021-8 ####[facility] LABIA [id number] [address] [place] [address] [place] Platelet mean volume (Bld) [Entitic vol] 9.8 fL Normal 9.0-12.7 [facility] Comment on above: Order Comment: Speci men Type: BLOOD SPECIMENOrdering Facility: External Submitter Address: , , Performed By: #### 5 7021-8 ####[facility] LABCLIA [id number] [address] [place] [address] [place] Platelets (Bld) [#/Vol] 335 10*3/uL Normal 150-400 [facility] Comment on above: Order Comment: Speci men Type: BLOOD SPECIMENOrdering Facility: External Submitter Address: , , Performed By: #### 5 7021-8 ####[facility] LABCLIA [id number] [address] [place] [address] [place] RBC (Bld) [#/Vol] 4.57 10*6/uL Normal 3.90-5.20 [facility] Comment on above: Order Comment: Speci men Type: BLOOD SPECIMENOrdering Facility: External Submitter Address: , , Performed By: #### 5 7021-8 ####[facility] LABCLIA [id number] [address] [place] [facility] WBC (Bld) [#/Vol] 7.78 10*3/uL Normal 3.70-11.00 [facility] Comment on above: Order Comment: Speci men Type: BLOOD SPECIMENOrdering Facility: External Submitter Address: , , Performed By: #### 5 7021-8 ####[facility] LABIA [id number] [address] Comprehensive metabolic 2000 panelon 02-16-2025 Albumin [Mass/Vol] 4.1 g/dL Normal 3.9-4.9 [facility] Comment on above: Order Comment: Speci men Type: BLOOD SPECIMENOrdering Facility: External Submitter Address: , , Performed By: #### 2 4323-8 ####[facility]ORYCLIA [id number] [place] [address] [place] ALP [Catalytic activity/Vol] 161 U/L High 34-123 [facility] Comment on above: Order Comment: Speci men Type: BLOOD SPECIMENOrdering Facility: External Submitter Address: , , Performed By: #### 2 4323-8 ####[facility]ORY[facility] [id number] [place] [address] [place] ALT [Catalytic activity/Vol] 15 U/L Normal 7-38 [facility] Comment on above: Order Comment: Speci men Type: BLOOD SPECIMENOrdering Facility: External Submitter Address: , , Performed By: #### 2 4323-8 ####[facility]ATORYCLIA [id number] [place] [address] [place] Anion gap [Moles/Vol] 14 mmol/L Normal 8-15 [facility] Comment on above: Order Comment: Speci men Type: BLOOD SPECIMENOrdering Facility: External Submitter Address: , , Performed By: #### 2 4323-8 ####[facility]ORYCLIA [id number] [place] [address] [place] AST [Catalytic activity/Vol] 23 U/L Normal 13-35 [facility] Comment on above: Order Comment: Speci men Type: BLOOD SPECIMENOrdering Facility: External Submitter Address: , , Performed By: #### 2 4323-8 ####[facility]ATORYCLIA [id number] [place] [address] [place] Bilirubin [Mass/Vol] 0.7 mg/dL Normal 0.2-1.[address] [facility] Comment on above: Order Comment: Speci men Type: BLOOD SPECIMENOrdering Facility: External Submitter Address: , , Performed By: #### 2 4323-8 ####[facility]ATORYCL[facility] [id number] [place] [address] [place] Calcium [Mass/Vol] 9.7 mg/dL Normal 8.5-10.2 [facility] Comment on above: Order Comment: Speci men Type: BLOOD SPECIMENOrdering Facility: External Submitter Address: , , Performed By: #### 2 4323-8 ####[facility]ORYCLIA [id number] [place] [address] [place] Chloride [Moles/Vol] 101 mmol/L Normal 98-[address] [facility] Comment on above: Order Comment: Speci men Type: BLOOD SPECIMENOrdering Facility: External Submitter Address: , , Performed By: #### 2 4323-8 ####[facility]ORYCLIA [id number] [place] [address] [place] CO2 [Moles/Vol] 26 mmol/L Normal 22-30 [facility] Comment on above: Order Comment: Speci men Type: BLOOD SPECIMENOrdering Facility: External Submitter Address: , , Performed By: #### 2 4323-8 ####[facility]ATORYCLIA [id number] [place] [address] [place] Creatinine [Mass/Vol] 0.60 mg/dL Normal 0.58-0.96 [facility] Comment on above: Order Comment: Marcus fernandes Type: BLOOD SPECIMENOrdering Facility: External Submitter Address: , , Performed By: #### 2 4323-8 ####[facility] LABORATORYIA [id number] [place] [address] [place] Creatinine and Glomerular filtration rate.predicted panel (S/P/Bld) 104 mL/min/1.73m??? Normal >=60 [facility] Comment on above: Order Comment: Marcus fernandes Type: BLOOD SPECIMENOrdering Facility: External Submitter Address: , , Result Comment: Michelle mated Glomerular Filtration Rate (eGFR) is calculated using the 2020 CKD-EPI creatinine equation. This equation utilizes serum creatinine, sex, and age as parameters. The creatinine assay has traceable calibration to isotope dilution-mass spectrometry. Refer to KDIGO guidelines for clinical interpretation. In patients with unstable renal function, e.g. those with acute kidney injury, the eGFR may not accurately reflect actual GFR. Performed By: #### 2 4323-8 ####[facility] LABORATORYIA [id number] [place] [address] [place] Glucose [Mass/Vol] 94 mg/dL Normal 74-99 [facility] Comment on above: Order Comment: Marcus fernandes Type: BLOOD SPECIMENOrdering Facility: External Submitter Address: , , Result Comment: The [place] Diabetes Association (ADA) provides guidance for cutoff values for fasting glucose and random glucose. The ADA defines fasting as no caloric intake for at least 8 hours. Fasting plasma glucose results between 100 to 125 [...] Standards of Medical Care in Diabetes 2016, [place] Diabetes Association. Diabetes Care. 2016.39(Suppl 1). Performed By: #### 2 4323-8 ####[facility]ATORYCLIA [id number] [address] [place] Potassium [Moles/Vol] 4.4 mmol/L Normal 3.7-5.1 [facility] Comment on above: Order Comment: Marcus fernandes Type: BLOOD SPECIMENOrdering Facility: External Submitter Address: , , Performed By: #### 2 4323-8 ####[facility]ATORYCLIA [id number] [place] [address] [place] Protein [Mass/Vol] 7.2 g/dL Normal 6.3-8.0 [facility] Comment on above: Order Comment: Marcus fernandes Type: BLOOD SPECIMENOrdering Facility: External Submitter Address: , , Performed By: #### 2 4323-8 ####[facility]ATORYCLIA [id number] [place] [address] [place] Sodium [Moles/Vol] 141 mmol/L Normal 136-144 [facility] Comment on above: Order Comment: Marcus fernandes Type: BLOOD SPECIMENOrdering Facility: External Submitter Address: , , Performed By: #### 2 4323-8 ####[facility]ATORYCLIA [id number] [place] [address] [place] Urea nitrogen [Mass/Vol] 10 mg/dL Normal 7-21 [facility] Comment on above: Order Comment: Marcus fernandes Type: BLOOD SPECIMENOrdering Facility: External Submitter Address: , , Performed By: #### 2 4323-8 ####[facility]ATORYCLIA [id number] [place] [address] [place] HAV IgM Ser Qlon 02-16-2025 HAV IgM Ql (S) Negative Normal Negative [facility] Comment on above: Order Comment: Marcus fernandes Type: BLOOD SPECIMENOrdering Facility: External Submitter Address: , , Result Comment: No e vidence of recent infection with Hepatitis A virus. Performed By: #### 2 2314-9, AHAVG ####[facility] LABIA [id number] [address] [address] [place] HBV core Ab Ser Qlon 025 HBV core Ab Ql (S) Positive Abnormal Negative [facility] Comment on above: Order Comment: Speci men Type: BLOOD SPECIMENOrdering Facility: External Submitter Address: , , Result Comment: The result suggests either current or past infection with Hepatitis B virus. Non-specific reactivity may at times be seen with this test due to some underlying phenomena. Please correlate with HBsAg result and medical history. Performed By: #### 5 195-3, 02415-9, 58810-5, 76538-7 ####[facility] LABIA [id number] [address] [address] [facility] HBV surface Ab Ql (S)on 01-22 HBV surface Ab Qn (S) >1000.00 Normal [facility] Comment on above: Order Comment: Speci men Type: BLOOD SPECIMENOrdering Facility: External Submitter Address: , , Result Comment: <8 m IU/mL: No serological evidence of immunity to Hepatitis B Virus. >/= 8 to <12 mIU/mL: No serological evidence of immunity to Hepatitis B Virus. >/= 12 mIU/mL: Consistent with serological evidence of immunity to Hepatitis B Virus. Performed By: #### 5 195-3, 26609-2, 36753-1, 34015-7 ####[facility] LABIA [id number] [address] [place] [address] [facility] [place] HBV surface Ab Ser Qlon 01-22 HBV surface Ab Ql (S) Positive Normal [facility] Comment on above: Order Comment: Speci men Type: BLOOD SPECIMENOrdering Facility: External Submitter Address: , , Result Comment: Cons istent with serological evidence of immunity to Hepatitis B Virus. Performed By: #### 5 195-3, 38389-2, 60744-0, 45787-8 ####[facility] LABCLIA [id number] [address], [address] [place] HBV surface Ag Ser Qlon 01-22 HBV surface Ag Ql (S) Negative Normal Negative [facility] Comment on above: Order Comment: Speci men Type: BLOOD SPECIMENOrdering Facility: External Submitter Address: , , Performed By: #### 5 195-3, 98397-4, 64301-0, 36566-1 ####[facility] LABCLIA [id number] [address], [address] [place] HCV Ab Ser Qlon 02-16-2025 HCV Ab Ql (S) Positive Abnormal Negative [facility] Comment on above: Order Comment: Speci men Type: BLOOD SPECIMENOrdering Facility: External Submitter Address: , , Performed By: #### 1 6128-1 ####[facility] LABCLIA [id number] [address], [address] [place] HEPATITIS A ANTIBODY, IGGon 02-16-2025 HAV IgG Ql (S) Positive Normal [facility] Comment on above: Order Comment: Speci men Type: BLOOD SPECIMENOrdering Facility: External Submitter Address: , , Result Comment: This result suggests recent or past exposure to hepatitis A virus or hepatitis A vaccination. Clinical correlation required. Performed By: #### 2 2314-9, AHAVG ####[facility] LABCLIA [id number] [address] [place] HIV 1+2 Ab IA Qlon HIV 1 and 2 Ab IA.rapid Nom (S/P/Bld) Normal [facility] Comment on above: Order Comment: Speci men Type: BLOOD SPECIMENOrdering Facility: External Submitter Address: , , Result Comment: Test not indicated. Performed By: #### 5 195-3, 20388-8, 15596-2, 63098-0 ####[facility] LABCLIA [id number] [address] [place] [address] [place] HIV 1+2 Ab+HIV1 p24 Ag IA Ql Non-Reactive Normal Nonreactive [facility] Comment on above: Order Comment: Speci men Type: BLOOD SPECIMENOrdering Facility: External Submitter Address: , , Performed By: #### 5 195-3, 67245-8, 59466-9, 52527-0 ####[facility] LABCLIA [id number] [address] [address] [place] HIV immunoassay testing algorithm interpretation (S/P/Bld) [Interp] Normal [facility] Comment on above: Order Comment: Speci men Type: BLOOD SPECIMENOrdering Facility: External Submitter Address: , , Result Comment: No e vidence of HIV-1 or HIV-2 infection. Should recent infection be suspected, repeat testing may be considered 2-3 weeks after this draw. [place] Rev. Code 3701.243(E): This information has been disclosed to you from confidential records protected from disclosure by state law. ???You shall make no further disclosure of this information without the specific, written, and informed release of the individual to whom it pertains or as otherwise permitted by state law. A general authorization for the release of medical or other information is not sufficient for the purpose of the release of HIV test results or diagnoses. Performed By: #### 5 195-3, 77289-8, 68672-7, 44474-6 ####[facility] LABCLIA [id number] [address] [address] [place] Alcohol, Blood (Medical)-Ser umon 11-10-2024 SERUM ETOH 89.0 mg/dL Normal [facility] Comment on above: Result Comment: The serum:whole blood ethanol ratio is approximately 1.14 and varies slightly with hematocrit. Medical Alcohol reference interval and critical value in non-tolerant individuals; 50 - 100 Impairment 100 Intoxication 100 - 250 Severe Poisoning 250 - 400 Deep/possible fatal coma Performed By: #### L 400.0001 #### [facility] [address] [place], [address] Basic Metabolic Profile (BMP )on 11-10-2024 BUN/CRE 18.1 RATIO Normal 10-20 [facility] Comment on above: Performed By: #### L 400.0001 #### [facility] [address] [place], [address] [place],Total 8.9 mg/dL Normal 8.5-10.1 [facility] Comment on above: Performed By: #### L 400.0001 #### [facility] [address] [place], [address] Chloride [Moles/Vol] 108 mmol/L High 98-107 [place] Comment on above: Performed By: #### L 400.0001 #### [facility] [address] [place], [address] CO2 [Moles/Vol] 27.0 mmol/L Normal 21.0-32.0 [facility] Comment on above: Performed By: #### L 400.0001 #### [facility] [address] [place], [address] Creatinine [Mass/Vol] 0.55 mg/dL Normal 0.55-1.02 [facility] Comment on above: Result Comment: The validity of the calculated GFR GFRAA in patients over 70 years has not been determined. Clinical correlation is essential. Performed By: #### L 400.0001 #### [facility] [address] [place], [address] ECRCL 108.29 ml/min Normal [facility] Comment on above: Performed By: #### L 400.0001 #### [facility] [address] [place], [address] EST GFR - AA 144 mL/min Normal >60 [facility] Comment on above: Result Comment: Afri can Italian GFR Calc Performed By: #### L 400.0001 #### [facility] [address] [place], [address] GAP 5 Normal 5-15 [facility] Comment on above: Performed By: #### L 400.0001 #### [facility] [address] [place], [address] GFR/1.73 sq M.predicted among non-blacks MDRD (S/P/Bld) [Vol rate/Area] 119 mL/min/{1.73_m2} Normal >60 [facility] Comment on above: Result Comment: Non- GFR Calc Performed By: #### L 400.0001 #### [facility] [address] [place], [address] Glucose [Mass/Vol] 108 mg/dL High 74-[address] [facility] Comment on above: Result Comment: Fast ing Glucose result from 100 to 125 mg/dL suggests IMPAIRED HOMEOSTASIS per A.D.A. criteria. Performed By: #### L 400.0001 #### [facility] [address] [place], [address] Potassium [Moles/Vol] 3.8 mmol/L Normal 3.5-5.1 [facility] Comment on above: Performed By: #### L 400.0001 #### [facility] [address] [place], [address] Sodium [Moles/Vol] 140 mmol/L Normal 136-[address] [facility] Comment on above: Performed By: #### L 400.0001 #### [facility] [address] [place], [address] Urea nitrogen [Mass/Vol] 10 mg/dL Normal 7-18 [facility] Comment on above: Performed By: #### L 400.0001 #### [facility] [address] [place], [address] CBC W/Diff, Automatedon 12- Absolute Lymph 2.31 X10 3/uL Normal 0.83-4.51 [facility] Comment on above: Performed By: #### L 400.0001 #### [facility] [address] [place], [address] Absolute Neut 4.7 X10 3/uL Normal 2.0-7.7 [facility] Comment on above: Performed By: #### L 400.0001 #### [facility] [address] [place], [address] Basophils/100 WBC (Bld) 0.9 % Normal 0-1 [facility] Comment on above: Performed By: #### L 400.0001 #### [facility] [address] [place], [address] Eosinophils/100 WBC (Bld) 2.9 % Normal 0-5 [facility] Comment on above: Performed By: #### L 400.0001 #### [facility] [address] [place], [address] Erythrocyte distribution width (RBC) [Ratio] 14.0 % Normal 11.6-14.6 [facility] Comment on above: Performed By: #### L 400.0001 #### [facility] [address] [place], [address] Hematocrit (Bld) [Volume fraction] 43.8 % Normal 37-47 [facility] Comment on above: Performed By: #### L 400.0001 #### [facility] [address] [place], [address] Hemoglobin (Bld) [Mass/Vol] 14.5 g/dL Normal 12.0-15.0 [facility] Comment on above: Performed By: #### L 400.0001 #### [facility] [address] [place], [address] IG% 0.300 Normal 0.0-0.9 [facility] Comment on above: Result Comment: IG% - Immature Granulocytes (promyelocytes, myelocytes and metamyelocytes) > 1% indicates that a LEFT SHIFT is Present. Performed By: #### L 400.0001 #### [facility] [address] [place], [address] Lymphocytes/100 WBC (Bld) 30.2 % Normal 19-41 [facility] Comment on above: Performed By: #### L 400.0001 #### [facility] [address] [place], [address] MCH (RBC) [Entitic mass] 31.9 pg Normal 27.0-32.0 [facility] Comment on above: Performed By: #### L 400.0001 #### [facility] [address] [place], [address] MCHC (RBC) [Mass/Vol] 33.1 g/dL Normal 32-36 [facility] Comment on above: Performed By: #### L 400.0001 #### [facility] [address] [place], [address] MCV (RBC) [Entitic vol] 96.5 fL Normal 81-99 [facility] Comment on above: Performed By: #### L 400.0001 #### [facility] [address] [place], [address] Monocytes/100 WBC (Bld) 4.8 % Normal 0-10 [facility] Comment on above: Performed By: #### L 400.0001 #### [facility] [address] [place], [address] Neutrophils/100 WBC (Bld) 60.9 % Normal 47-70 [facility] Comment on above: Performed By: #### L 400.0001 #### [facility] [address] [place], [address] Nucleated RBC (Bld) [#/Vol] 0 10*3/uL Normal 0-5 [facility] Comment on above: Performed By: #### L 400.0001 #### [facility] [address] [place], [address] Platelet mean volume (Bld) [Entitic vol] 9.1 fL Normal 6.2-12.0 [facility] Comment on above: Performed By: #### L 400.0001 #### [facility] [address] [place], [address] Platelets (Bld) [#/Vol] 337 10*3/uL Normal 150-450 [facility] Comment on above: Performed By: #### L 400.0001 #### [facility] [address] [place], [address] RBC (Bld) [#/Vol] 4.54 10*6/uL Normal 4.2-5.4 [facility] Comment on above: Performed By: #### L 400.0001 #### [facility] [address] [place], [address] RDW SD 49.7 fl High 35.1-43.9 [facility] Comment on above: Performed By: #### L 400.0001 #### [facility] [address] [place], [address] WBC (Bld) [#/Vol] 7.6 10*3/uL Normal 4.4-11.[address] [facility] Comment on above: Performed By: #### L 400.0001 #### [facility] [address] [place], [address] Emergency Department Summary on 11-10-2024 Emergency Department Summary [facility] Medical Records Department [address] [place] [address] Emergency Department Summary 11/10/24 MR#: [id number] Acct: [id number] Name: KAMI WATTS Rep #: [id number] : 1965 59 From: Gómez Escamilla DO PCP: Dr. Earnest Dueñas MD Status:ADM IN Location: [address] History of Present Illness Chief Complaint: Substance Abuse [facility] Medical History (Updated 11/10/24 @ 18:31 by Roopa Botello) Substance abuse Depression Kidney stones Hypertension Generalized anxiety disorder PTSD (post-traumatic stress disorder) Major depressive disorder, recurrent severe without psychotic features Wears dentures Wears glasses Post-menopausal Bladder disease Hearing loss, left Hearing loss, right Osteoporosis Smoker Migraines Anxiety Hepatitis Irregular heart beat Drug abuse Alcohol abuse Duodenitis Home Medications ???Medication ???Instructions ???Recorded ???Last Taken ???Type buprenorphine 8 mg-naloxone 2 mg 1 ea sublingual BID 07/13/24 11/10/24 History sublingual film escitalopram oxalate 20 mg tablet 20 mg PO DAILY 30 days #30 tabs 10/05/24 11/10/24 Rx (Lexapro) buspirone 10 mg tablet 10 mg PO BID 30 days #60 tabs 10/19/24 11/10/24 Rx Allergy/AdvReac Type Severity Reaction Status Date / Time No Known Allergies Allergy Verified 11/10/24 16:08 Family History Mother Breast cancer Heart disease Hypertension Diabetes Father Cancer pt is unsure what kind of cancer Heart disease Hypertension Diabetes Sister Breast cancer Sister Ovarian cancer Surgical History S/P vaginal hysterectomy Hx of hand surgery History of cataract surgery History of tubal ligation History of umbilical hernia repair Social History adopted: No household members: none number of children: 6 current occupational status: unemployed pets and animals: Yes pets and animals: cat(s) sexually active: No Smoking Status: Heavy Smoker (>10/day) alcohol intake: former details: pt sober since 2020 caffeine: Yes seatbelt use: always do you feel safe at home: Yes EXAM Physical Exam Const Vital Signs: 11/10/24 16:07 Temperature 97.5 F L Temperature Source Temporal Pulse Rate 86 Respiratory Rate 15 Blood Pressure 176/98 H Blood Pressure Mean 124 Pulse Ox 97 Oxygen Delivery Method Room Air MDM MDM MDM Narrative Medical decision making narrative: HISTORY OF PRESENT ILLNESS: 59-year-old female presents with request for alcohol detoxification. Notes last drink was last night. Notes she drinks 1 bottle of jenny mix with tequila daily. States she does she did stop drinking. Denies any other drug use. Denies any chest pain, abdominal pain, notes nausea in the morning that improves after drinking. Denies any bloody bowel movements. Denies any SI, HI auditory or visual hallucinations. REVIEW OF SYSTEMS: Pertinent positives: Nausea Pertinent negatives: As per HPI PHYSICAL EXAM: Nursing triage notes reviewed, Vital signs reviewed Constitutional: please see mdm HENT: MMM Eyes: Pupils equal round and reactive to light, Extraocular muscles intact Neck: No stridor, no JVD, full neck ROM Lungs: Clear to auscultation, No wheezing or rales. No increased work of breathing, no conversational dyspnea, no accessory muscle use, no nasal flaring. No respiratory distress noted Heart: Regular rate and rhythm, No murmurs, No rubs and No gallops, 2+ distal pulses (radial, femoral, posterior tibial) in all extremities Abdomen: Soft, there is no tenderness, rigidity, rebound or guarding, no obvious peritoneal signs, no palpable pulsatile abdominal masses, no auscultated abdominal bruit : No CVAT Extremities: No edema Neuro: Alert and oriented x 3. No new focal neurological deficits, cranial nerves II through XII intact, 5/5 strength in all present extremities. Intact sensation to light touch in all present extremities, 2+ reflexes bilateral patella tendons. Normal non-ataxic gait. Skin: No rash or lesions noted Psych: Normal affect MEDICAL DECISION MAKING: Chief Complaint: Request for detox External records reviewed: Reviewed prior inpatient note from June 2024 Factors affecting care: History of pancreatitis Social determinants of health: Alcohol abuse, tobacco, polysubstance abuse History obtained from others: none Consults: none [facility] Narrative: Patient was initially hypertensive with blood pressure 170s over 98 otherwise afebrile and nontoxic- appearing. Medical clearance labs were obtained. ALL IMAGES (IF OBTAINED) HAVE BEEN PERSONALLY REVIEWED AND INTERPRETED (more content not included)... Normal [facility] H AND P Exam - [facility] 11-10-2024 H&P Exam - Hospitalist [facility] Medical Records Department [address] [place] [address] H P Exam - Hospitalist 11/10/24 3361 MR#: [id number] Acct: [id number] Name: KAMI WATTS Rep #: [id number] : 1965 59 From: Kayli Slater MD PCP: Dr. Earnest Dueañs MD Status:ADM IN Location: MS3 [id number] HPI - General General Date of Admission: 11/10/24 Date of Service: 11/10/24 Chief Complaint: ETOH detox HPI Narrative KAMI WATTS, is a 59 F with history of alcohol, tobacco, and substance use who presented [facility] ED 11/10/2024 for alcohol detox. She is struggled with alcohol use intermittently and for the past 1 and half weeks she has been drinking least one of the large bottles of jenny mix with her last drink last night, when she wakes up she has craving, nausea, anxiety and is shaky and has withdrawal symptoms. She has been unable to stop on her own and is requesting detox. She did have a little bit of a sore throat cough, shortness of breath, congestion over the past couple weeks and has been treated conservatively. Has also had a little bit of intermittent nausea but ROS otherwise negative [facility] Medical History (Updated 08/17/24 @ 14:21 by Mary Alice Escobar) Alcohol abuse Anxiety Bladder disease Drug abuse Duodenitis Generalized anxiety disorder Hearing loss, left Hearing loss, right Hepatitis Irregular heart beat Major depressive disorder, recurrent severe without psychotic features Migraines Osteoporosis Post-menopausal PTSD (post-traumatic stress disorder) Smoker Wears dentures Wears glasses Home Medications ???Medication ???Instructions ???Recorded ???Last Taken ???Type buprenorphine 8 mg-naloxone 2 mg 1 ea sublingual BID 07/13/24 11/10/24 History sublingual film escitalopram oxalate 20 mg tablet 20 mg PO DAILY 30 days #30 tabs 10/05/24 11/10/24 Rx (Lexapro) buspirone 10 mg tablet 10 mg PO BID 30 days #60 tabs 10/19/24 11/10/24 Rx Allergy/AdvReac Type Severity Reaction Status Date / Time No Known Allergies Allergy Verified 11/10/24 16:08 Family History Mother Breast cancer Heart disease Hypertension Diabetes Father Cancer pt is unsure what kind of cancer Heart disease Hypertension Diabetes Sister Breast cancer Sister Ovarian cancer Surgical History History of cataract surgery History of tubal ligation History of umbilical hernia repair Hx of hand surgery S/P vaginal hysterectomy Social History adopted: No household members: none number of children: 6 current occupational status: unemployed pets and animals: Yes pets and animals: cat(s) sexually active: No Smoking Status: Heavy Smoker (>10/day) alcohol intake: former details: pt sober since 2020 caffeine: Yes seatbelt use: always do you feel safe at home: Yes ROS ROS Narrative General: Denies fever/chills HENT: Denies headache, has had a little sore throat nasal congestion EYES: Some chronic worsening in vision Resp: Had been having little bit of cough and shortness of breath, nothing worsening today or new Cardiac: Denies chest pain GI: Denies abdominal pain, denies changes in bowel, intermittently low but nauseous : Denies changes in urination Extremity: Denies swelling MSK: Denies weakness Neuro: Denies any numbness/tingling Heme: Denies any bleeding or bruising Skin: Denies rashes Psychiatric: Does have some anxiety Vital Signs Vital Signs Vital Signs: 11/10/24 16:07 11/10/24 17:06 11/10/24 17:38 Temperature 97.5 F L 98.1 F Temperature Source Temporal Pulse Rate 86 91 91 Respiratory Rate 15 18 18 Blood Pressure 176/98 H 128/84 H 128/84 H Blood Pressure Mean 124 98 98 Pulse Ox 97 99 99 Oxygen Delivery Method Room Air Room Air Weight Weight: 77.111 kg Body Mass Index (BMI) 30.1 Physical Exam Narrative General: Alert, oriented, no apparent distress HEENT: Atraumatic, normocephalic Eyes: Anicteric, normal conjunctiva, extraocular movements grossly intact Neck: Supple Respiratory: Clear to auscultation bilaterally, normal respiratory effort Cardiovascular: Regular rate and rhythm GI: Soft, nontender, nondistended Extremities: No edema Musculoskeletal: Moving all extremities Neuro: No overt focal neurological deficits Skin: No rashes appreciated Psych: Cooperative Results Lab / Micro Data 11/10/24 16:30 11/10/24 16:30 Labs: Laboratory Results - last 24 hr 11/10/24 16:30: WBC 7.6, RBC 4.54, Hgb 14.5, Hct 43.8, MCV 96.5, MCH 31.9, MCHC 33.1, RDW Std Deviation 49.7 H, RDW Coeff of Mamta 14.0, Plt Count 337, MPV 9.1, Immature Gran % (Auto) 0.300, Neut (more content not included)... Normal [facility] Liver Profileon 11-10-2024 Albumin [Mass/Vol] 3.8 g/dL Normal 3.2-5.[address] [facility] Comment on above: Order Comment: Add o nto previous labs if possible Performed By: #### L 100.0100, L500.4050, L300.3900, L505.5000, L501.9100 #### [facility] [address] [place], [address] ALK P 122 U/L High 45-117 [facility] Comment on above: Order Comment: Add o nto previous labs if possible Performed By: #### L 100.0100, L500.4050, L300.3900, L505.5000, L501.9100 #### [facility] [address] [place], [address] ALT [Catalytic activity/Vol] 20 U/L Normal 13-56 [facility] Comment on above: Order Comment: Add o nto previous labs if possible Performed By: #### L 100.0100, L500.4050, L300.3900, L505.5000, L501.9100 #### [facility] [address] [place], [address] AST [Catalytic activity/Vol] 20 U/L Normal 15-37 [facility] Comment on above: Order Comment: Add o nto previous labs if possible Performed By: #### L 100.0100, L500.4050, L300.3900, L505.5000, L501.9100 #### [facility] [address] [place], [address] Bilirubin [Mass/Vol] 0.40 mg/dL Normal 0.20-1.00 [place] Comment on above: Order Comment: Add o nto previous labs if possible Result Comment: For patients on eltrombopag therapy, use of Dimension [place] TBIL is not recommended. Performed By: #### L 100.0100, L500.4050, L300.3900, L505.5000, L501.9100 #### [facility] [address] [place], [address] Bilirubin.direct [Mass/Vol] 0.13 mg/dL Normal 0.00-0.30 [facility] Comment on above: Order Comment: Add o nto previous labs if possible Performed By: #### L 100.0100, L500.4050, L300.3900, L505.5000, L501.9100 #### [facility] [address] [place], [address] Globulin (S) [Mass/Vol] 3.2 g/dL Normal 2.2-4.2 [facility] Comment on above: Order Comment: Add o nto previous labs if possible Performed By: #### L 100.0100, L500.4050, L300.3900, L505.5000, L501.9100 #### [facility] [address] [place], [address] T PROT 7.0 g/dL Normal 6.4-8.2 [facility] Comment on above: Order Comment: Add o nto previous labs if possible Performed By: #### L 100.0100, L500.4050, L300.3900, L505.5000, L501.9100 #### [facility] [address] [place], [address] Prothrombin Time w/INRon INR Coag (PPP) [Relative time] 1.1 {INR} Normal [facility] Comment on above: Order Comment: CLEAN CATCH Performed By: #### L 400.0001 #### [facility] [address] [place], [address] PT Coag (PPP) [Time] 14.0 s Normal 11.7-14.9 [place] Comment on above: Order Comment: CLEAN CATCH Performed By: #### L 400.0001 #### [facility] [address] [place], [address] Urine Drug Screen (VISTA)on 11-10-2024 AMPHETAMINES Negative Normal <1000 ng/mL [facility] Comment on above: Performed By: #### L 400.0001 #### [facility] [address] [facility] [address] BARBITIURATES Negative Normal < 200 ng/mL [facility] Comment on above: Performed By: #### L 400.0001 #### [facility] [address] [facility] [address] BENZODIAZIPINE Negative Normal < 200 ng/mL [facility] Comment on above: Performed By: #### L 400.0001 #### [facility] [address] [place], [address] COCAINE Negative Normal < 300 ng/mL [facility] Comment on above: Performed By: #### L 400.0001 #### [facility] [address] [place] [id number] ECSTACY Negative Normal < 500 ng/mL [facility] Comment on above: Performed By: #### L 400.0001 #### [facility] [address] [facility] [address] METHADONE Negative Normal < 300 ng/mL [facility] Comment on above: Performed By: #### L 400.0001 #### [facility] [address] [facility] [address] OPIATES Negative Normal < 300 ng/mL [facility] Comment on above: Performed By: #### L 400.0001 #### [facility] [address] [place], [address] PCP Negative Normal < 25 ng/mL [facility] Comment on above: Performed By: #### L 400.0001 #### [facility] [address] [place], [place], [address] THC Negative Normal < 50 ng/mL [facility] Comment on above: Performed By: #### L 400.0001 #### [facility] [address] [place], [place], [address] VISTA UDS PH 7 Normal [facility] Comment on above: Performed By: #### L 400.0001 #### [facility] [address] [place], [place], [id number] CNOVon 11-01-2024 CNOV Office Visit ([facility] ) KAMI WATTS ([id number]) 1965 F R Date Time Provider Department 11/01/24 1:45 PM JESS ELLIS [facility] During your visit today, we recorded the following information about you: Temperature Pulse Respiration Blood pressure 98 degrees 68/minute 18/minute 148/86 Weight 84.1 kg Jess Ellis PA 11/01/2024 1:57 PM Signed This note was created using Gigwellriter. Subjective Kami Watts is a 59 year old female. HPI 59-year-old female presents for nasal congestion, sinus pressure, sinus pain, headache, cough x 1 week. Patient states she started getting sick about a week ago. She has sinus congestion, sinus pressure and sinus pain. She states she has a little bit of a sore throat. No fevers. She has had chills and bodyaches. She states that she has a cough, dry. She is a smoker. She states she has never been diagnosed with COPD. She does have an inhaler she uses from time to time. She states that she has used it once for this illness. No chest pain or shortness of breath. No vomiting or diarrhea. Granddaughter was recently sick. Patient has not taken anything [id number] for symptoms. PAST MEDICAL HISTORY Diagnosis Date Abnormal glandular [...] medication use - NO IV drug use. Encounter for Medicare annual wellness exam 05/10/2015 Last done: 03/16/24 Esophageal reflux Gastroesophageal reflux Family history of [...] W/WO ENDOCERVIX BX W/O DILAT SPX 03/03/2007 EXT HYSTERECTOMY,W/PARTIAL VAGINECTO 07/31/2023 LIG/TRNSXJ FLP TUBE ABDL/VAG APPR UNI/BI 2002 Tubal ligation PAST SURGICAL HISTORY OF 1997 BENIGN TUMOR REMOVED RIGHT HAND PAST SURGICAL HISTORY OF 2012 cataract with lens implant, bilat PAST SURGICAL HISTORY OF 07/31/2023 anterior and posterior vaginal repair, Dr. Molina RPR UMBILICAL HERNIA < 5 YRS REDUCIBLE 2002 Hernia repair, umbilical <5yr ALLERGIES Patient has no known allergies. MEDICATIONS busPIRone (BUSPAR) 5 mg tablet Take 1 tablet by mouth every 12 hours. cholecalciferol, Vitamin D3, (VITAMIN D3) 1,250 mcg (50,000 unit) cap capsule Take 1 capsule by mouth one time a week. escitalopram oxalate (LEXAPRO) 10 mg tablet Take 1 tablet by mouth once daily. albuterol HFA (PROAIR HFA) 90 mcg/actuation inhaler Inhale 2 Puffs as instructed every 4 hours as needed. buprenorphine-naloxone (SUBOXONE) 8-2 mg film Dissolve 2 Film under the tongue once daily. doxycycline (VIBRA-TABS) 100 mg tablet Take 1 tablet by mouth two times a day for 7 days. FAMILY HISTORY Problem Relation Age of Onset Diabetes Mother colon cancer Coronary Artery Disease Mother Hypertension Mother Hearing Loss Father [place]/ colon cancer Stroke Father Diabetes Father Hypertension Father Aneurysm Father Coronary Artery Disease Maternal Grandmother Hypertension Maternal Grandmother Ischemic Heart Disease Maternal Grandfather Hypertension Paternal Grandmother Coronary Artery Disease Paternal Grandmother Coronary Artery Disease Paternal Grandfather (more content not included)... Normal [facility] Vel 10-06-2024 DANNIELLE Telephone (FAMPWS) KAMI WATTS ([id number]) 1965 F NFR Date Time Provider Department 10/06/24 FARZANA LLAMAS During your visit today, we recorded the following information about you: Obey Agee LPN 10/06/2024 10:53 AM Signed Left message for pt to call back to schedule f/u appointment with Farzana. Farzana had advised pt to f/u for depression/med in 4 weeks at last ov 03/16/24. Obey Agee LPN Allergies As of Date: 10/06/2024 (No Known Allergies) Date Reviewed: 08/04/2024 Reviewed by: Belle Fonseca MA - Fully Assessed Reason for Visit: Appointment [[id number]] Prescriptions as of 10/06/2024 - cholecalciferol, Vitamin D3, (VITAMIN D3) 1,250 mcg (50,000 unit) cap capsule Take 1 capsule by mouth one time a week. - escitalopram oxalate (LEXAPRO) 10 mg tablet Take 1 tablet by mouth once daily. - albuterol HFA (PROAIR HFA) 90 mcg/actuation inhaler Inhale 2 Puffs as instructed every 4 hours as needed. - buprenorphine-naloxone (SUBOXONE) 8-2 mg film Dissolve 2 Film under the tongue once daily. Problem List As Of Date 10/06/2024 Noted Resolved Thoracic and lumbosacral neuritis [M54.14, M54.*03/05/2007 Insomnia, unspecified [G47.00] 08/24/2007 Decreased libido [R68.82] 08/24/2007 Adjustment disorder with depressed mood [F43.21]08/24/2007 Smoker [F17.200] 02/23/2008 Migraine with aura and without status migrainos*08/20/2009 Anxiety [F41.9] 06/28/2010 Drug addiction (HCC) [F19.20] IV drug abuse [F19.10] 02/14/2015 History of hepatitis C [Z86.19] 02/23/2015 Encounter for Medicare annual wellness exam [Z0*05/10/2015 Family history of early CAD [Z82.49] 01/29/2016 Acquired hypothyroidism [E03.9] 01/29/2016 Gastroesophageal reflux disease without esophag*01/29/2016 Encounter for gynecological examination without*08/29/2016 Alcohol dependence in remission (HCC) [F10.21] 08/29/2016 Marijuana use [F12.90] 09/01/2017 Moderate episode of recurrent major depressive *05/24/2020 Low serum vitamin B12 [E53.8] 06/04/2020 Bilateral hip joint arthritis [M16.0] 04/16/2021 Cervical arthritis [M47.812] 04/16/2021 Alcohol abuse [F10.10] 07/17/2021 Hypersomnia [G47.10] 09/06/2021 Actinic keratosis [L57.0] 03/16/2024 Encounter Status:Closed by OBEY AGEE on 10/06/24 Normal [facility] Thyroid Stim Hormone (TSH)on 08-17-2024 TSH 0.711 uIU/mL Normal 0.358-3.740 [facility] Comment on above: Performed By: #### L 100.0100, L500.4050, L300.3900, L505.5000, L501.9100 #### [facility] [address], [address] Vitamin D,25 Hydroxyon 08-17 Vitamin D 25-OH 24.1 ng/mL Normal [facility] Comment on above: Result Comment: Caryl min D 25(OH) Status Range Deficiency <20 ng/mL (50nmol/L) Insufficiency 20 - 30 ng/mL (50 - 75 nmol/L) Sufficiency 30 - 100 ng/mL (75 - 250 nmol/L) Toxicity >100 ng/mL (>250 nmol/L) Performed By: #### L 100.0100, L500.4050, L300.3900, L505.5000, L501.9100 #### [facility] [address] [place], [address] Abdomen/Pelvis without Conto n 08-05-2024 Abdomen/Pelvis without Cont [facility] Imaging Services [address] [place] [address] Abdomen/Pelvis without Cont MR#: [id number] Acct: [id number] Name: KAMI WATTS Rep #: [id number] : 1965 F 59 From: Daniel Rajan MD PCP: Dr. Earnest Dueñas MD Status: REG ER Study: Abdomen/Pelvis without Cont Date of Exam: 07/24 02/13 Exam# [id number] Ordering Dr: Calvin Lopez MD [id number] EXAM: CT ABDOMEN AND PELVIS WITHOUT INTRAVENOUS CONTRAST CLINICAL INDICATION: L flank pain TECHNIQUE: Helically acquired images were obtained of the abdomen and pelvis without intravenous contrast. This CT exam was performed using one or more of the following dose reduction techniques: automated exposure control, adjustment of the mA and/or kV according to patient size, and/or use of iterative reconstruction technique. COMPARISON: CT Abdomen Pelvis dated 01/14/2016 FINDINGS: LOWER THORAX: Normal. Lung bases are clear. No cardiomegaly. No pericardial effusion. ABDOMEN: LIVER: Normal. Homogeneous. GALLBLADDER AND BILE DUCTS: Normal. No calcified gallstones. No gallbladder distention or wall edema. No intra- or extrahepatic biliary ductal dilation. PANCREAS: Normal. No focal cystic mass. SPLEEN: Normal. Normal size without focal cystic or solid mass. ADRENALS: Normal. No nodules. KIDNEYS AND URETERS: 4 mm left ureteral stone noted at the ureterovesical junction associated with left hydronephrosis and hydroureter. No intrarenal stone. STOMACH AND BOWEL: Normal. No bowel distention. No focal inflammatory change. PELVIS: APPENDIX: Appendix is visualized and normal in appearance. BLADDER: Normal. REPRODUCTIVE: Hysterectomy noted. ABDOMEN and PELVIS: INTRAPERITONEAL SPACE: Normal. No ascites or other fluid collection. No free air. BONES/JOINTS: No suspicious lytic or blastic abnormality. SOFT TISSUES: Normal. No discrete abdominal or pelvic wall hernia. VASCULATURE: Normal. Abdominal aorta is non-dilated. LYMPH NODES: Normal. No enlarged lymph nodes. CT/Abdomen/Pelvis without Cont IMPRESSION: Obstructive stone at the left ureterovesical junction. Electronically Signed: Daniel Rajan MD at 16:03 EDT , CC: Dr. Calvin Lopez MD; Dr. Earnest Dueñas MD Director Of Group Counseling Program: Signed Normal [facility] Basic Metabolic Profile (BMP )on 08-05-2024 BUN/CRE 21.8 RATIO High 10-20 [facility] Comment on above: Performed By: #### L 100.0100, L500.4050, L300.3900, L505.5000, L501.9100 #### [facility] [address] [place], [address] CA,Total 9.8 mg/dL Normal 8.5-10.1 [facility] Comment on above: Performed By: #### L 100.0100, L500.4050, L300.3900, L505.5000, L501.9100 #### [facility] [address] [place], [address] Chloride [Moles/Vol] 109 mmol/L High 98-107 [place] Comment on above: Performed By: #### L 100.0100, L500.4050, L300.3900, L505.5000, L501.9100 #### [facility] [address] [place], [address] CO2 [Moles/Vol] 24.0 mmol/L Normal 21.0-32.0 [facility] Comment on above: Performed By: #### L 100.0100, L500.4050, L300.3900, L505.5000, L501.9100 #### [facility] [address] [place], [address] Creatinine [Mass/Vol] 0.64 mg/dL Normal 0.55-1.02 [facility] Comment on above: Result Comment: The validity of the calculated GFR GFRAA in patients over 70 years has not been determined. Clinical correlation is essential. Performed By: #### L 100.0100, L500.4050, L300.3900, L505.5000, L501.9100 #### [facility] [address] [place], [address] EST GFR - AA 122 mL/min Normal >60 [facility] Comment on above: Result Comment: Afri can Italian GFR Calc Performed By: #### L 100.0100, L500.4050, L300.3900, L505.5000, L501.9100 #### [facility] [address] [place], [address] GAP 7 Normal 5-15 [facility] Comment on above: Performed By: #### L 100.0100, L500.4050, L300.3900, L505.5000, L501.9100 #### [facility] [address] [place], [address] GFR/1.73 sq M.predicted among non-blacks MDRD (S/P/Bld) [Vol rate/Area] 101 mL/min/{1.73_m2} Normal >60 [facility] Comment on above: Result Comment: Non- GFR Calc Performed By: #### L 100.0100, L500.4050, L300.3900, L505.5000, L501.9100 #### [facility] [address] [place], [address] Glucose [Mass/Vol] 119 mg/dL High 74-[address] [facility] Comment on above: Result Comment: Fast ing Glucose result from 100 to 125 mg/dL suggests IMPAIRED HOMEOSTASIS per A.D.A. criteria. Performed By: #### L 100.0100, L500.4050, L300.3900, L505.5000, L501.9100 #### [facility] [address] [place], [address] Potassium [Moles/Vol] 4.0 mmol/L Normal 3.5-5.1 [facility] Comment on above: Performed By: #### L 100.0100, L500.4050, L300.3900, L505.5000, L501.9100 #### [facility] [address] [place], [address] Sodium [Moles/Vol] 140 mmol/L Normal 136-[address] [facility] Comment on above: Performed By: #### L 100.0100, L500.4050, L300.3900, L505.5000, L501.9100 #### [facility] [address] [place], [address] Urea nitrogen [Mass/Vol] 14 mg/dL Normal 7-18 [facility] Comment on above: Performed By: #### L 100.0100, L500.4050, L300.3900, L505.5000, L501.9100 #### [facility] [address] [place], [address] CBC W/Diff, Automatedon 09-11 25-2023 Absolute Lymph 1.31 X10 3/uL Normal 0.83-4.51 [facility] Comment on above: Performed By: #### L 100.0100, L500.4050, L300.3900, L505.5000, L501.9100 #### [facility] [address] [place], [address] Absolute Neut 10.4 X10 3/uL High 2.0-7.7 [facility] Comment on above: Performed By: #### L 100.0100, L500.4050, L300.3900, L505.5000, L501.9100 #### [facility] [address] [place], [address] Basophils/100 WBC (Bld) 0.6 % Normal 0-1 [facility] Comment on above: Performed By: #### L 100.0100, L500.4050, L300.3900, L505.5000, L501.9100 #### [facility] [address] [place], [address] Eosinophils/100 WBC (Bld) 0.5 % Normal 0-5 [facility] Comment on above: Performed By: #### L 100.0100, L500.4050, L300.3900, L505.5000, L501.9100 #### [facility] [address] [place], [address] Erythrocyte distribution width (RBC) [Ratio] 12.8 % Normal 11.6-14.6 [facility] Comment on above: Performed By: #### L 100.0100, L500.4050, L300.3900, L505.5000, L501.9100 #### [facility] [address] [place], [address] Hematocrit (Bld) [Volume fraction] 46.5 % Normal 37-47 [facility] Comment on above: Performed By: #### L 100.0100, L500.4050, L300.3900, L505.5000, L501.9100 #### [facility] [address] [place], [address] Hemoglobin (Bld) [Mass/Vol] 15.3 g/dL High 12.0-15.0 [facility] Comment on above: Performed By: #### L 100.0100, L500.4050, L300.3900, L505.5000, L501.9100 #### [facility] [address] [place], [address] IG% 0.500 Normal 0.0-0.9 [facility] Comment on above: Result Comment: IG% - Immature Granulocytes (promyelocytes, myelocytes and metamyelocytes) > 1% indicates that a LEFT SHIFT is Present. Performed By: #### L 100.0100, L500.4050, L300.3900, L505.5000, L501.9100 #### [facility] [address] [place], [address] Lymphocytes/100 WBC (Bld) 10.7 % Low 19-41 [facility] Comment on above: Performed By: #### L 100.0100, L500.4050, L300.3900, L505.5000, L501.9100 #### [facility] [address] [place], [address] MCH (RBC) [Entitic mass] 30.8 pg Normal 27.0-32.0 [facility] Comment on above: Performed By: #### L 100.0100, L500.4050, L300.3900, L505.5000, L501.9100 #### [facility] [address] [place], [address] MCHC (RBC) [Mass/Vol] 32.9 g/dL Normal 32-36 [facility] Comment on above: Performed By: #### L 100.0100, L500.4050, L300.3900, L505.5000, L501.9100 #### [facility] [address] [place], [address] MCV (RBC) [Entitic vol] 93.6 fL Normal 81-99 [facility] Comment on above: Performed By: #### L 100.0100, L500.4050, L300.3900, L505.5000, L501.9100 #### [facility] [address] [place], [address] Monocytes/100 WBC (Bld) 3.3 % Normal 0-10 [facility] Comment on above: Performed By: #### L 100.0100, L500.4050, L300.3900, L505.5000, L501.9100 #### [facility] [address] [place], [address] Neutrophils/100 WBC (Bld) 84.4 % High 47-70 [facility] Comment on above: Performed By: #### L 100.0100, L500.4050, L300.3900, L505.5000, L501.9100 #### [facility] [address] [place], [address] Nucleated RBC (Bld) [#/Vol] 0 10*3/uL Normal 0-5 [facility] Comment on above: Performed By: #### L 100.0100, L500.4050, L300.3900, L505.5000, L501.9100 #### [facility] [address] [place], [address] Platelet mean volume (Bld) [Entitic vol] 10.2 fL Normal 6.2-12.0 [facility] Comment on above: Performed By: #### L 100.0100, L500.4050, L300.3900, L505.5000, L501.9100 #### [facility] [address] [place], [address] Platelets (Bld) [#/Vol] 318 10*3/uL Normal 150-450 [facility] Comment on above: Performed By: #### L 100.0100, L500.4050, L300.3900, L505.5000, L501.9100 #### [facility] [address] [place], [address] RBC (Bld) [#/Vol] 4.97 10*6/uL Normal 4.2-5.4 [facility] Comment on above: Performed By: #### L 100.0100, L500.4050, L300.3900, L505.5000, L501.9100 #### [facility] [address] [place], [address] RDW SD 43.8 fl Normal 35.1-43.9 [facility] Comment on above: Performed By: #### L 100.0100, L500.4050, L300.3900, L505.5000, L501.9100 #### [facility] [address] [place], [place], [address] WBC (Bld) [#/Vol] 12.3 10*3/uL High 4.4-11.0 [facility] Comment on above: Performed By: #### L 100.0100, L500.4050, L300.3900, L505.5000, L501.9100 #### [facility] [address] [place], [place], [address] [facility]20[facility]) KAMI WATTS ([id number]) 1965 F NFR Date Time Provider Department 08/05/[address] [facility] During your visit today, we recorded the following information about you: Vivi Ashraf APRN.CNP 08/05/2024 7:09 PM Signed Please inform patient that urine culture did not show any growth of bacteria requiring treatment. If symptoms improving complete antibiotic Advise due to blood in the urine that she follow up with PCP for recheck of urine in 1-2 weeks. Vivi Ashraf APRN.Dalia Hardy MA 08/06/2024 8:25 AM Signed Patient given results and verbalized understanding of instructions given. Patient went to ED she has a kidney stone. Dalia Farris MA Allergies As of Date: 08/05/2024 (No Known Allergies) Date Reviewed: 08/04/2024 Reviewed by: Belle Fonseca MA - Fully Assessed Reason for Visit: Results [95] Prescriptions as of 08/06/2024 - nitrofurantoin monohydrate and macrocrystal (MACROBID) 100 mg capsule Take 1 capsule by mouth two times a day for 5 days. - cholecalciferol, Vitamin D3, (VITAMIN D3) 1,250 mcg (50,000 unit) cap capsule Take 1 capsule by mouth one time a week. - escitalopram oxalate (LEXAPRO) 10 mg tablet Take 1 tablet by mouth once daily. - albuterol HFA (PROAIR HFA) 90 mcg/actuation inhaler Inhale 2 Puffs as instructed every 4 hours as needed. - buprenorphine-naloxone (SUBOXONE) 8-2 mg film Dissolve 2 Film under the tongue once daily. Problem List As Of Date 08/05/2024 Noted Resolved Thoracic and lumbosacral neuritis [M54.14, M54.*03/05/2007 Insomnia, unspecified [G47.00] 08/24/2007 Decreased libido [R68.82] 08/24/2007 Adjustment disorder with depressed mood [F43.21]08/24/2007 Smoker [F17.200] 02/23/2008 Migraine with aura and without status migrainos*08/20/2009 Anxiety [F41.9] 06/28/2010 Drug addiction (HCC) [F19.20] IV drug abuse [F19.10] 02/14/2015 History of hepatitis C [Z86.19] 02/23/2015 Encounter for Medicare annual wellness exam [Z0*05/10/2015 Family history of early CAD [Z82.49] 01/29/2016 Acquired hypothyroidism [E03.9] 01/29/2016 Gastroesophageal reflux disease without esophag*01/29/2016 Encounter for gynecological examination without*08/29/2016 Alcohol dependence in remission (HCC) [F10.21] 08/29/2016 Marijuana use [F12.90] 09/01/2017 Moderate episode of recurrent major depressive *05/24/2020 Low serum vitamin B12 [E53.8] 06/04/2020 Bilateral hip joint arthritis [M16.0] 04/16/2021 Cervical arthritis [M47.812] 04/16/2021 Alcohol abuse [F10.10] 07/17/2021 Hypersomnia [G47.10] 09/06/2021 Actinic keratosis [L57.0] 03/16/2024 Encounter Status:Closed by DALIA FARRIS on 08/06/24 Normal [facility] Emergency Department Summary on 08-05-2024 Emergency Department Summary [facility] Medical Records Department [address] [place] [address] Emergency Department Summary 08/05/24 MR#: [id number] Acct: [id number] Name: KAMI WATTS Rep #: [id number] : 1965 59 From: Calvin Lopez MD PCP: Dr. Earnest Dueñas MD Status:REG ER Location: ED HPI HPI - GI History of Present Illness Chief Complaint: Flank Pain Informant: patient Narrative Narrative: 59-year-old me female states she has been having urinary symptoms for a couple days, frequency, urgency, no dysuria or fever/chills. She started having pain in the left flank gradually today, now it is severe and colicky associated with nausea and vomiting. No fevers or chills that she knows of yet. States that yesterday she saw urgent care and was prescribed Macrobid that she started. PFSH PFSH Medical History Wears dentures Wears glasses Post-menopausal Bladder disease Hearing loss, left Hearing loss, right Osteoporosis Smoker Migraines Anxiety Depression Hepatitis Irregular heart beat Drug abuse Alcohol abuse Duodenitis Home Medications ???Medication ???Instructions ???Recorded ???Last Taken ???Type albuterol sulfate 90 mcg/actuation 2 puff inhalation Q6H PRN SOB 01/28/22 Unknown History aerosol inhaler buprenorphine 8 mg-naloxone 2 mg 1 ea sublingual BID 07/13/24 07/13/24 History sublingual film cholecalciferol (vitamin D3) 1,250 1,250 mcg PO QWEEK 08/05/24 Unknown History mcg (50,000 unit) capsule ciprofloxacin HCl 500 mg tablet 500 mg PO BID #14 TABLETS 08/05/24 Unknown Rx oxycodone-acetaminophe n 5 mg-325 1 tab PO Q4H PRN Pain 4 days #20 08/05/24 Unknown Rx mg tablet TABLETS Allergy/AdvReac Type Severity Reaction Status Date / Time No Known Allergies Allergy Verified 08/05/24 12:32 Family History Mother Breast cancer Heart disease Hypertension Diabetes Father Cancer pt is unsure what kind of cancer Heart disease Hypertension Diabetes Sister Breast cancer Sister Ovarian cancer Surgical History S/P vaginal hysterectomy Hx of hand surgery History of cataract surgery History of tubal ligation History of umbilical hernia repair Social History adopted: No household members: none number of children: 6 current occupational status: unemployed pets and animals: Yes pets and animals: cat(s) sexually active: No Smoking Status: Heavy Smoker (>10/day) alcohol intake: former details: pt sober since 2020 caffeine: Yes seatbelt use: always do you feel safe at home: Yes ROS ROS ED Constitutional Constitutional ED: Denies chills or fever(s) Eyes Eyes: Denies change in vision or diplopia ENT ENT ED: Denies rhinorrhea or sore throat Cardiovascular Cardiovascular: Denies chest pain or palpitations Respiratory/Chest Respiratory/Chest: Denies cough or dyspnea Gastrointestinal Gastrointestinal: Reports abdominal pain, nausea and vomiting; Denies diarrhea Genitourinary Genitourinary ED: Reports flank pain, urinary frequency and urinary urgency; Denies dysuria or hematuria Musculoskeletal Musculoskeletal: Reports back pain; Denies neck pain Integumentary Denies abscess or rash Neurologic Neurologic: Denies headache(s), paresthesias or weakness Psychiatric Psychiatric: Denies anxiety or suicidal thoughts EXAM Physical Exam Const Vital Signs: 08/05/24 12:30 08/05/24 15:13 08/05/24 16:00 Temperature 97.8 F Temperature Source Temporal Pulse Rate 56 L 92 78 Respiratory Rate 16 16 18 Blood Pressure 181/111 H 151/87 H 120/66 Blood Pressure Mean 134 108 84 Pulse Ox 99 99 100 Oxygen Delivery Method Room Air Room Air Room Air 08/05/24 16:58 Temperature Temperature Source Pulse Rate 66 Respiratory Rate 16 Blood Pressure 111/64 Blood Pressure Mean 79 Pulse Ox 95 Oxygen Delivery Method Room Air Positive well nourished and well developed Constitutional Narrative: Uncomfortable, in pain but no distress otherwise General Appearance ED: well developed HEENT Reports moist mucous membranes normocephalic and atraumatic Eyes PERRL and EOMs intact bilaterally Neck full ROM and supple Resp normal respiratory effort and clear to auscultation bilaterally Cardio regular rate, regular rhythm and no murmurs GI non-distended GI Narrative: Mildly tender without guarding or rebound throughout the left side of abdomen and flank. Normal inspection. No Khoury Davila sign. Auscultation: normoactive bowel sounds Palpation: soft Back/Spine General Back: CVA tenderness left (Mild) and other (more content not included)... Normal [facility] Urinalysis, Completeon 08-05 BACTERIA 2+ /hpf Normal None Seen [facility] Comment on above: Order Comment: CLEAN CATCH Performed By: #### L 400.0001 #### [facility] [address] [place], [address] CA OX CRYSTAL 1+ /hpf Normal [facility] Comment on above: Order Comment: CLEAN CATCH Performed By: #### L 400.0001 #### [facility] [address] [place], [address] RBC 10-25 SEEN Normal 0-5 [facility] Comment on above: Order Comment: CLEAN CATCH Performed By: #### L 400.0001 #### [facility] [address] [place], [address] WBC 0-5 SEEN Normal 0-5 [facility] Comment on above: Order Comment: CLEAN CATCH Performed By: #### L 400.0001 #### [facility] [address] [place], [address] EPI,SQUAMOUS 0-5 SEEN Normal 5-10 [facility] Comment on above: Order Comment: CLEAN CATCH Performed By: #### L 400.0001 #### [facility] [address] [place], [address] Mucus Ql (Urine sed) 2+ /hpf Normal [place] Comment on above: Order Comment: CLEAN CATCH Performed By: #### L 400.0001 #### [facility] [address] [place], [address] BACTERIA Normal None Seen [facility] Comment on above: Order Comment: CLEAN CATCH Result Comment: DUPL ICATE Performed By: #### L 400.0001 #### [facility] [address] [place], [address] BILIRUBIN URINE Normal Negative [facility] Comment on above: Order Comment: CLEAN CATCH Result Comment: DUPL ICATE Performed By: #### L 400.0001 #### [facility] [address] [place], [address] Clarity (U) Normal Clear [facility] Comment on above: Order Comment: CLEAN CATCH Result Comment: DUPL ICATE Performed By: #### L 400.0001 #### [facility] [address] [place], [address] Color (U) Normal Yellow [facility] Comment on above: Order Comment: CLEAN CATCH Result Comment: DUPL ICATE Performed By: #### L 400.0001 #### [facility] [address] [place], [address] EPI,SQUAMOUS Normal 5-10 [facility] Comment on above: Order Comment: CLEAN CATCH Result Comment: DUPL ICATE Performed By: #### L 400.0001 #### [facility] [address] [place], [address] GLUCOSE, UR Normal Normal [facility] Comment on above: Order Comment: CLEAN CATCH Result Comment: DUPL ICATE Performed By: #### L 400.0001 #### [facility] [address] [place], [address] KETONE UR Normal Negative [facility] Comment on above: Order Comment: CLEAN CATCH Result Comment: DUPL ICATE Performed By: #### L 400.0001 #### [facility] [address] [place], [address] LEUK ESTERASE Normal Negative [facility] Comment on above: Order Comment: CLEAN CATCH Result Comment: DUPL ICATE Performed By: #### L 400.0001 #### [facility] [address] [place], [address] Mucus Ql (Urine sed) Normal [place] Comment on above: Order Comment: CLEAN CATCH Result Comment: DUPL ICATE Performed By: #### L 400.0001 #### [facility] [address] [place], [address] Nitrite Ql (U) Normal Negative [facility] Comment on above: Order Comment: CLEAN CATCH Result Comment: DUPL ICATE Performed By: #### L 400.0001 #### [facility] [address] [place], [address] OCCULT BLOOD-UR Normal Negative [facility] Comment on above: Order Comment: CLEAN CATCH Result Comment: DUPL ICATE Performed By: #### L 400.0001 #### [facility] [address] [place], [address] pH UR Normal 5.0 - 8.0 [facility] Comment on above: Order Comment: CLEAN CATCH Result Comment: DUPL ICATE Performed By: #### L 400.0001 #### [facility] [address] [place], [address] PROT DIPSTX Normal Negative [facility] Comment on above: Order Comment: CLEAN CATCH Result Comment: DUPL ICATE Performed By: #### L 400.0001 #### [facility] [address] [place], [address] RBC Normal 0-5 [facility] Comment on above: Order Comment: CLEAN CATCH Result Comment: DUPL ICATE Performed By: #### L 400.0001 #### [facility] [address] [place], [address] SP.GR. DIPSTX Normal 1.002-1.030 [facility] Comment on above: Order Comment: CLEAN CATCH Result Comment: DUPL ICATE Performed By: #### L 400.0001 #### [facility] [address] [place], [address] UR Preservative Normal [facility] Comment on above: Order Comment: CLEAN CATCH Result Comment: DUPL ICATE Performed By: #### L 400.0001 #### [facility] [address] [place], [address] UROBILI Normal Normal [facility] Comment on above: Order Comment: CLEAN CATCH Result Comment: DUPL ICATE Performed By: #### L 400.0001 #### [facility] [address] [place], [address] WBC Normal 0-5 [facility] Comment on above: Order Comment: CLEAN CATCH Result Comment: DUPL ICATE Performed By: #### L 400.0001 #### [facility] [address] [place], [address] Bacteria Ur Culton 4 Bacteria identified Cx Nom (U) ORGANISM ID: 1 <10,000 CFU/ml Normal urogenital aris Normal [facility] Comment on above: Performed By: #### 6 30-4 ####[facility] LABCLIA [id number] [facility] [id number] [place] [address] [place] CNOVon 08-04-2024 CNOV Office Visit (UCWSTR ) KAMI WATTS ([id number]) 1965 F NFR Date Time Provider Department 08/04/24 12:30 PM NNAMDI MACDONALD [facility] During your visit today, we recorded the following information about you: Temperature Pulse Respiration Blood pressure 97.8 degrees 71/minute 18/minute 114/78 Weight 78.8 kg Nnamdi Macdonald APRN.CANDY PACKER 08/04/2024 12:07 PM Signed CC: Patient presents with: UTI: Urgency, dysuria x2 days, L sided groin pain HPI Kami Watts is a 59 year old female who presents with complaint of possible UTI. These symptoms have been present for 2 days. Associated symptoms: burning and urgency Denies: fever, chills, sweats, abdominal pain, and flank pain Treatments: nothing The ROS was otherwise negative. PMH, Medications, labs, allergies, and recent past visits with PCP were reviewed and updated as able. PHYSICAL EXAM: BP 114/78 Pulse 71 Temp 36.6 ?C (97.8 ?F) Resp 18 Wt 78.8 kg (173 lb 11.6 oz) LMP 01/15/2017 (Within Days) SpO2 99% BMI 31.17 kg/m? General: Well appearing and alert CV: Regular rate and rhythm without obvious murmur Lungs: clear to auscultation bilaterally Back: straight and symmetric Abdomen: soft, nontender, nondistended PAST MEDICAL HISTORY No date: Abnormal glandular Papanicolaou smear of cervix Comment: Abn. Pap smear (cervix) 01/29/2016: Acquired hypothyroidism Comment: Labs 01/2015 normal with no meds. 08/24/2007: Adjustment disorder with depressed mood 07/17/2021: Alcohol abuse Comment: In ER 09/10/21: Sober since May 11, 2021- checked herself in for detox and is in AA 08/29/2016: Alcohol dependence in remission (HCC) Comment: In treatment 04/06/11 06/28/2010: Anxiety 04/16/2021: Bilateral hip joint arthritis 04/16/2021: Cervical arthritis 08/24/2007: Decreased libido No date: Diabetes mellitus without mention of complication Comment: Diabetes mellitus No date: Diarrhea No date: Drug addiction (HCC) Comment: In treatment 04/06/11 - prescription pain medication use - NO IV drug use. 05/10/2015: Encounter for Medicare annual wellness exam Comment: Last done: 03/16/24 No date: Esophageal reflux Comment: Gastroesophageal reflux 01/29/2016: Family history of early CAD 01/29/2016: Gastroesophageal reflux disease without esophagitis No date: History of hepatitis C Comment: treated. Not detected 08/201708/24/2007: Insomnia, unspecified 02/14/2015: IV drug abuse (HCC) 06/04/2020: Low serum vitamin B12 09/01/2017: Marijuana use Comment: Urine tox 10/29/2016 08/20/2009: Migraine with aura and without status migrainosus, not intractable 05/24/2020: Moderate episode of recurrent major depressive disorder (HCC) No date: PMH - PAST MEDICAL HISTORY OF Comment: colitis No date: PMH - PAST MEDICAL HISTORY OF Comment: enlarged duct pancreas and GB 02/23/2008: Smoker Comment: Started at age 9; Up to 2+ PPD No date: Thyrotoxicosis without mention of goiter or other cause, without mention of thyrotoxic crisis or storm Comment: Hyperthyroidism 05/10/2015: Well adult exam Comment: Last done: 08/29/2016 PAST SURGICAL HISTORY 11/03/2016: *STRESS TEST PC Comment: normal 04/18/2015: COLONOSCOPY FLX DX W/COLLJ SPEC WHEN PFRMD Comment: Colonoscopy, repeat 5 yrs 08/20/2006: COLONOSCOPY W/BIOPSY SINGLE/MULTIPLE 1999: COLPOSCOPY CERVIX UPPER/ADJACENT VAGINA Comment: Colposcopy 12/27/2014: DILATED RETINAL EXAM W/EVIDENCE OF RETINOPATHY 10/2016: DILATION AND CURETTAGE DXAND/THER NONOBSTETRIC Comment: Dilation AND curettage 03/03/2007: ENDOMETRIAL BX W/WO ENDOCERVIX BX W/O DILAT SPX 07/31/2023: EXT HYSTERECTOMY,W/PARTIAL VAGINECTO 2003: LIG/TRNSXJ FLP TUBE ABDL/VAG APPR UNI/BI Comment: Tubal ligation 1997: PAST SURGICAL HISTORY OF Comment: BENIGN TUMOR REMOVED RIGHT HAND 2012: PAST SURGICAL HISTORY OF Comment: cataract with lens implant, bilat 07/31/2023: PAST SURGICAL HISTORY OF Comment: anterior and posterior vaginal repair, Dr. Molina 2003: RPR UMBILICAL HERNIA < 5 YRS REDUCIBLE Comment: Hernia repair, umbilical <5yr ALLERGIES Patient has no known allergies. MEDICATIONS cholecalciferol, Vitamin D3, (VITAMIN D3) 1,250 mcg (50,000 unit) cap capsule Take 1 capsule by mouth one time a week. escitalopram oxalate (LEXAPRO) 10 mg tablet Take 1 tablet by mouth once daily. albuterol HFA (PROAIR HFA) 90 mcg/actuation inhaler Inhale 2 Puffs as instructed every 4 hours as needed. buprenorphine-naloxone (SUBOXONE) 8-2 mg film Dissolve 2 Film under the tongue once daily. nitrofurantoin monohydrate and macrocrystal (MACROBID) 100 mg capsule Take 1 capsule by mouth two times a day for 5 days. FAMILY HISTORY Problem Relation Age of Onset Diabetes Mother colon cancer Coronary Artery Disease Mother Hypertension Mother Hearing Loss Father SD/ colon cancer Stroke Father Diabete (more content not included)... Normal [facility] UA DIP, URINE (POC)on 2023 BILIRUBIN UA (POCT) Negative Negative [facility] CLARITY UA (POCT) Clear [facility] COLOR UA (POCT) Yellow [facility] GLUCOSE UA (POCT) Negative Negative mg/dL [facility] Hemoglobin Ql (U) Moderate Abnormal Negative [facility] Interpretation and review of laboratory results Abnormal [facility] KETONE UA (POCT) Negative Negative mg/dL [facility] LEUKOCYTES UA (POCT) Negative Negative [facility] NITRITE UA (POCT) Negative Negative [facility] PH UA (POCT) 5.5 4.5 - 8.0 [facility] Protein Ql (U) Negative Negative mg/dL [facility] SPECIFIC GRAVITY UA (POCT) >=1.030 1.005 - 1.030 [facility] UROBILINOGEN UA (POCT) 0.2 Normal E.U./dL [facility] Location:[address], [place], [place], [id number] [place] [address] POINT OF CARE [facility] L501.5101on 07-15-2024 GGTP 14 IU/L Normal 0-60 [facility] Comment on above: Result Comment: Perf ormed at: CB - [facility] [address] [id number] Piercing Machine Operator: J Carlos Allen PhD, Phone: [phone] Performed By: #### L 1000100, L500.4050, L300.3900, L505.5000, L501.9100 #### [facility] [address] [facility] [place], [place], [id number] Alcohol, Blood (Medical)-Ser umon 07-13-2024 SERUM ETOH 59.0 mg/dL Normal [facility] Comment on above: Result Comment: The serum:whole blood ethanol ratio is approximately 1.14 and varies slightly with hematocrit. Medical Alcohol reference interval and critical value in non-tolerant individuals; 50 - 100 Impairment 100 Intoxication 100 - 250 Severe Poisoning 250 - 400 Deep/possible fatal coma Performed By: #### L 100.0100, L500.4050, L300.3900, L505.5000, L501.9100 #### [facility] [address] [place], [address] CBC W/Diff, Automatedon 06-24 Absolute Lymph 3.22 X10 3/uL Normal 0.83-4.51 [facility] Comment on above: Performed By: #### L 100.0100, L500.4050, L300.3900, L505.5000, L501.9100 #### [facility] [address] [place], [address] Absolute Neut 4.5 X10 3/uL Normal 2.0-7.7 [facility] Comment on above: Performed By: #### L 100.0100, L500.4050, L300.3900, L505.5000, L501.9100 #### [facility] [address] [place], [address] Basophils/100 WBC (Bld) 0.9 % Normal 0-1 [facility] Comment on above: Performed By: #### L 100.0100, L500.4050, L300.3900, L505.5000, L501.9100 #### [facility] [address] [place], [address] Eosinophils/100 WBC (Bld) 3.8 % Normal 0-5 [facility] Comment on above: Performed By: #### L 100.0100, L500.4050, L300.3900, L505.5000, L501.9100 #### [facility] [address] [place], [address] Erythrocyte distribution width (RBC) [Ratio] 13.5 % Normal 11.6-14.6 [facility] Comment on above: Performed By: #### L 100.0100, L500.4050, L300.3900, L505.5000, L501.9100 #### [facility] [address] [place], [address] Hematocrit (Bld) [Volume fraction] 45.8 % Normal 37-47 [facility] Comment on above: Performed By: #### L 100.0100, L500.4050, L300.3900, L505.5000, L501.9100 #### [facility] [address] [place], [address] Hemoglobin (Bld) [Mass/Vol] 15.8 g/dL High 12.0-15.0 [facility] Comment on above: Performed By: #### L 100.0100, L500.4050, L300.3900, L505.5000, L501.9100 #### [facility] [address] [place], [address] IG% 0.200 Normal 0.0-0.9 [facility] Comment on above: Result Comment: IG% - Immature Granulocytes (promyelocytes, myelocytes and metamyelocytes) > 1% indicates that a LEFT SHIFT is Present. Performed By: #### L 100.0100, L500.4050, L300.3900, L505.5000, L501.9100 #### [facility] [address] [place], [address] Lymphocytes/100 WBC (Bld) 37.0 % Normal 19-41 [facility] Comment on above: Performed By: #### L 100.0100, L500.4050, L300.3900, L505.5000, L501.9100 #### [facility] [address] [place], [address] MCH (RBC) [Entitic mass] 31.2 pg Normal 27.0-32.0 [facility] Comment on above: Performed By: #### L 100.0100, L500.4050, L300.3900, L505.5000, L501.9100 #### [facility] [address] [place], [address] MCHC (RBC) [Mass/Vol] 34.5 g/dL Normal 32-36 [facility] Comment on above: Performed By: #### L 100.0100, L500.4050, L300.3900, L505.5000, L501.9100 #### [facility] [address] [place], [address] MCV (RBC) [Entitic vol] 90.5 fL Normal 81-99 [facility] Comment on above: Performed By: #### L 100.0100, L500.4050, L300.3900, L505.5000, L501.9100 #### [facility] [address] [place], [address] Monocytes/100 WBC (Bld) 6.5 % Normal 0-10 [facility] Comment on above: Performed By: #### L 100.0100, L500.4050, L300.3900, L505.5000, L501.9100 #### [facility] [address] [place], [address] Neutrophils/100 WBC (Bld) 51.6 % Normal 47-70 [facility] Comment on above: Performed By: #### L 100.0100, L500.4050, L300.3900, L505.5000, L501.9100 #### [facility] [address] [place], [address] Nucleated RBC (Bld) [#/Vol] 0 10*3/uL Normal 0-5 [facility] Comment on above: Performed By: #### L 100.0100, L500.4050, L300.3900, L505.5000, L501.9100 #### [facility] [address] [place], [address] Platelet mean volume (Bld) [Entitic vol] 9.3 fL Normal 6.2-12.0 [facility] Comment on above: Performed By: #### L 100.0100, L500.4050, L300.3900, L505.5000, L501.9100 #### [facility] [address] [place], [address] Platelets (Bld) [#/Vol] 358 10*3/uL Normal 150-450 [facility] Comment on above: Performed By: #### L 100.0100, L500.4050, L300.3900, L505.5000, L501.9100 #### [facility] [address] [place], [address] RBC (Bld) [#/Vol] 5.06 10*6/uL Normal 4.2-5.4 [facility] Comment on above: Performed By: #### L 100.0100, L500.4050, L300.3900, L505.5000, L501.9100 #### [facility] [address] [place], [address] RDW SD 45.1 fl High 35.1-43.9 [facility] Comment on above: Performed By: #### L 100.0100, L500.4050, L300.3900, L505.5000, L501.9100 #### [facility] [address] [place], [address] WBC (Bld) [#/Vol] 8.7 10*3/uL Normal 4.4-11.[address] [facility] Comment on above: Performed By: #### L 100.0100, L500.4050, L300.3900, L505.5000, L501.9100 #### [facility] [address] [place], [address] Comprehensive Metabolic Prof oron 07-13-2024 Albumin [Mass/Vol] 3.8 g/dL Normal 3.2-5.[address] [facility] Comment on above: Performed By: #### L 100.0100, L500.4050, L300.3900, L505.5000, L501.9100 #### [facility] [address] [place], [address] Albumin/Globulin [Mass ratio] 1.1 {ratio} Normal 0.9-2.4 [facility] Comment on above: Performed By: #### L 100.0100, L500.4050, L300.3900, L505.5000, L501.9100 #### [facility] [address] [place], [address] ALK P 108 U/L Normal 45-117 [facility] Comment on above: Performed By: #### L 100.0100, L500.4050, L300.3900, L505.5000, L501.9100 #### [facility] [address] [place], [address] ALT [Catalytic activity/Vol] 15 U/L Normal 13-56 [facility] Comment on above: Performed By: #### L 100.0100, L500.4050, L300.3900, L505.5000, L501.9100 #### [facility] [address] [place], [address] AST [Catalytic activity/Vol] 12 U/L Low 15-37 [facility] Comment on above: Performed By: #### L 100.0100, L500.4050, L300.3900, L505.5000, L501.9100 #### [facility] [address] [place], [address] Bilirubin [Mass/Vol] 0.50 mg/dL Normal 0.20-1.00 [place] Comment on above: Result Comment: For patients on eltrombopag therapy, use of Dimension [place] TBIL is not recommended. Performed By: #### L 100.0100, L500.4050, L300.3900, L505.5000, L501.9100 #### [facility] [address] [place], [address] BUN/CRE 15.9 RATIO Normal 10-20 [facility] Comment on above: Performed By: #### L 100.0100, L500.4050, L300.3900, L505.5000, L501.9100 #### [facility] [address] [place], [address] CA,Total 9.5 mg/dL Normal 8.5-10.1 [facility] Comment on above: Performed By: #### L 100.0100, L500.4050, L300.3900, L505.5000, L501.9100 #### [facility] [address] [place], [address] Chloride [Moles/Vol] 107 mmol/L Normal 98-107 [place] Comment on above: Performed By: #### L 100.0100, L500.4050, L300.3900, L505.5000, L501.9100 #### [facility] [address] [place], [address] CO2 [Moles/Vol] 27.0 mmol/L Normal 21.0-32.0 [facility] Comment on above: Performed By: #### L 100.0100, L500.4050, L300.3900, L505.5000, L501.9100 #### [facility] [address] [place], [address] Creatinine [Mass/Vol] 0.76 mg/dL Normal 0.55-1.02 [facility] Comment on above: Result Comment: The validity of the calculated GFR GFRAA in patients over 70 years has not been determined. Clinical correlation is essential. Performed By: #### L 100.0100, L500.4050, L300.3900, L505.5000, L501.9100 #### [facility] [address] [place], [address] ECRCL 80.33 ml/min Normal [facility] Comment on above: Performed By: #### L 100.0100, L500.4050, L300.3900, L505.5000, L501.9100 #### [facility] [address] [place], [address] EST GFR - AA 101 mL/min Normal >60 [facility] Comment on above: Result Comment: Afri can Italian GFR Calc Performed By: #### L 100.0100, L500.4050, L300.3900, L505.5000, L501.9100 #### [facility] [address] [place], [address] GAP 5 Normal 5-15 [facility] Comment on above: Performed By: #### L 100.0100, L500.4050, L300.3900, L505.5000, L501.9100 #### [facility] [address] [place], [address] GFR/1.73 sq M.predicted among non-blacks MDRD (S/P/Bld) [Vol rate/Area] 83 mL/min/{1.73_m2} Normal >60 [facility] Comment on above: Result Comment: Non- GFR Calc Performed By: #### L 100.0100, L500.4050, L300.3900, L505.5000, L501.9100 #### [facility] [address] [place], [address] Globulin (S) [Mass/Vol] 3.4 g/dL Normal 2.2-4.2 [facility] Comment on above: Performed By: #### L 100.0100, L500.4050, L300.3900, L505.5000, L501.9100 #### [facility] [address] [place], [address] Glucose [Mass/Vol] 93 mg/dL Normal 74-[address] [facility] Comment on above: Performed By: #### L 100.0100, L500.4050, L300.3900, L505.5000, L501.9100 #### [facility] [address] [place], [address] Potassium [Moles/Vol] 3.9 mmol/L Normal 3.5-5.1 [facility] Comment on above: Performed By: #### L 100.0100, L500.4050, L300.3900, L505.5000, L501.9100 #### [facility] [address] [place], [address] Sodium [Moles/Vol] 139 mmol/L Normal 136-[address] [facility] Comment on above: Performed By: #### L 100.0100, L500.4050, L300.3900, L505.5000, L501.9100 #### [facility] [address] [place], [address] T PROT 7.2 g/dL Normal 6.4-8.2 [facility] Comment on above: Performed By: #### L 100.0100, L500.4050, L300.3900, L505.5000, L501.9100 #### [facility] [address] [place], [address] Urea nitrogen [Mass/Vol] 12 mg/dL Normal 7-18 [facility] Comment on above: Performed By: #### L 100.0100, L500.4050, L300.3900, L505.5000, L501.9100 #### [facility] [address] [place], [address] Emergency Department Summary on 07-13-2024 Emergency Department Summary [facility] Medical Records Department [address] [place] [address] Emergency Department Summary 07/13/24 MR#: [id number] Acct: [id number] Name: KAMI WATTS Rep #: [id number] : 1965 59 From: Shyann Orosco DO PCP: Dr. Earnest Dueñas MD Status:REG ER Location: ED HPI History of Present Illness Chief Complaint: Substance Abuse Informant: patient Narrative Narrative: Patient is a 59-year-old female with history of opioid abuse (currently in remission and on Suboxone) as well as regular alcohol abuse/use is presenting for request of alcohol detox. Patient states she has been drinking heavily for the past 3 weeks or so. She has been drinking 1-2 bottles/jugs of Frank??? Jeffry premade margaritas. She states she is following with Dr. Manning in 180 and would like to quit drinking. She states she does get shaky if she does not have a drink. She states she gets a lot of symptoms when she wakes in the morning including coughing and gagging but then she states that she drinks to try to avoid the symptoms. Last drink was Last night. No other complaints or concerns at this time. Does report marijuana use but denies any other substance use. Has no physical complaints at this time. States she is a heavy smoker. [facility] Medical History Wears dentures Wears glasses Post-menopausal Bladder disease Hearing loss, left Hearing loss, right Osteoporosis Smoker Migraines Anxiety Depression Hepatitis Irregular heart beat Drug abuse Alcohol abuse Duodenitis Home Medications ???Medication ???Instructions ???Recorded ???Last Taken ???Type albuterol sulfate 90 mcg/actuation 2 puff inhalation Q6H PRN SOB 01/28/22 Unknown History aerosol inhaler buprenorphine 8 mg-naloxone 2 mg 1 ea sublingual BID 07/13/24 07/13/24 History sublingual film Allergy/AdvReac Type Severity Reaction Status Date / Time No Known Allergies Allergy Verified 07/13/24 16:50 Family History Mother Breast cancer Heart disease Hypertension Diabetes Father Cancer pt is unsure what kind of cancer Heart disease Hypertension Diabetes Sister Breast cancer Sister Ovarian cancer Surgical History S/P vaginal hysterectomy Hx of hand surgery History of cataract surgery History of tubal ligation History of umbilical hernia repair Social History adopted: No household members: none number of children: 6 current occupational status: unemployed pets and animals: Yes pets and animals: cat(s) sexually active: No Smoking Status: Heavy Smoker (>10/day) alcohol intake: former details: pt sober since 2020 caffeine: Yes seatbelt use: always do you feel safe at home: Yes ROS ROS ED Constitutional Constitutional ED: Denies chills or fever(s) Eyes Eyes: Denies change in vision Cardiovascular Cardiovascular: Denies chest pain Respiratory/Chest Respiratory/Chest: Reports cough; Denies dyspnea Gastrointestinal Gastrointestinal: Denies abdominal pain, nausea or vomiting Musculoskeletal Musculoskeletal: Denies arthralgias or myalgias Psychiatric Psychiatric: Reports anxiety and other Details: alcohol abuse EXAM Physical Exam Const Vital Signs: 07/13/24 16:50 07/13/24 16:57 07/13/24 17:49 Temperature 97.2 F L 97.8 F Temperature Source Temporal Temporal Pulse Rate 101 H 89 64 Respiratory Rate 18 20 H 16 Blood Pressure 123/82 H 116/80 108/52 L Blood Pressure Mean 95 92 70 Blood Pressure Source Monitor Blood Pressure Position Sitting Blood Pressure Location Right Arm Pulse Ox 96 94 96 Oxygen Delivery Method Room Air Room Air Room Air Positive well nourished and well developed General Appearance ED: well developed and NAD HEENT Reports moist mucous membranes Eyes General Eye ED: Negative for scleral icterus Neck supple Chest Wall inspection of chest normal and palpation of chest normal Resp normal respiratory effort and clear to auscultation bilaterally Cardio regular rate and regular rhythm GI soft to palpation and non-tender Extremity General Extremety ED: Negative for edema General Extremity: Negative for edema Neuro oriented x3 Sensorium / Orientation: alert Motor Exam: Negative for general weakness Psych mental status grossly normal and thought process normal Mood Affect: anxious; Negative for tearful Skin Rashes: No no rashes MDM MDM MDM Narrative Medical decision making narrative: Patient evaluated for request of alcohol detox. Patient peers nontoxic no acute distress. Initial heart rate is mild tachycardia but this normalized wi (more content not included)... Normal [facility] H AND P Exam - [facility] 07-13-2024 H&P Exam - Hospitalist [facility] Medical Records Department [address] [place] [address] H P Exam - Hospitalist 07/13/24 1841 MR#: [id number] Acct: [id number] Name: KAMI WATTS Rep #: [id number] : 1965 59 From: [place] MD PCP: Dr. Earnest Dueñas MD Status:REG ER Location: ED HPI - General General Date of Admission: 07/13/24 Date of Service: 07/13/24 Chief Complaint: Alcohol withdrawal symptoms. HPI Narrative KAMI WATTS, is a 59 F came to ED for help for alcohol detox. She has been drinking heavily 1-2 bottles of jenny, Korey Cuervito for last 3 weeks or more. She came to ED with tachycardia, nausea, anxiety, restlessness, insomnia and tachycardia. She was also shaking. She did not had vomiting. She was started on patient is being admitted to [facility] floor. Patient on phenobarbital and further called for admission. She also has history of chronic opioid use, currently in remission under treatment of Dr. Johanne Manning. Currently on Suboxone. She had used IV needles, Percocet, Success and heroin in the past. She had a history of hepatitis C, completed full treatment about 6 to 7 years ago, she does not remember well Patient also smokes 1 pack/day and previously using 2 pack/day since teenage 14 to 15 years of age. Labs, vitals reviewed [facility] Medical History Wears dentures Wears glasses Post-menopausal Bladder disease Hearing loss, left Hearing loss, right Osteoporosis Smoker Migraines Anxiety Depression Hepatitis Irregular heart beat Drug abuse Alcohol abuse Duodenitis Home Medications ???Medication ???Instructions ???Recorded ???Last Taken ???Type albuterol sulfate 90 mcg/actuation 2 puff inhalation Q6H PRN SOB 01/28/22 Unknown History aerosol inhaler buprenorphine 8 mg-naloxone 2 mg 1 ea sublingual BID 07/13/24 07/13/24 History sublingual film Allergy/AdvReac Type Severity Reaction Status Date / Time No Known Allergies Allergy Verified 07/13/24 16:50 Family History Mother Breast cancer Heart disease Hypertension Diabetes Father Cancer pt is unsure what kind of cancer Heart disease Hypertension Diabetes Sister Breast cancer Sister Ovarian cancer Surgical History S/P vaginal hysterectomy Hx of hand surgery History of cataract surgery History of tubal ligation History of umbilical hernia repair Social History adopted: No household members: none number of children: 6 current occupational status: unemployed pets and animals: Yes pets and animals: cat(s) sexually active: No Smoking Status: Heavy Smoker (>10/day) alcohol intake: former details: pt sober since 2020 caffeine: Yes seatbelt use: always do you feel safe at home: Yes ROS ROS Narrative Constitutional: Reports fatigue and weakness. No fever. HEENT: Reports systems reviewed and no addt'l complaints, except as documented Respiratory/Chest: No acute shortness of breath or respiratory distress or wheezing. CVS: Denies chronic heart disease. Gastrointestinal: History of hepatitis C, completed treatment. Denies coffee ground emesis, hematemesis or vomiting Genitourinary: Denies burning urination or new urinary tract symptoms Musculoskeletal: Denies acute joint pain or limited range of motion. No acute injury Neurologic: Denies history of seizure. No acute or strokelike symptoms skin: No ulcer. No rash Endocrinology: Reports systems reviewed and no addt'l complaints, except as documented Hematologic/Lymphatic: Reports systems reviewed and no addt'l complaints, except as documented Rest 14 ROS are negative except as mentioned in HPI Vital Signs Vital Signs Vital Signs: 07/13/24 16:50 07/13/24 16:57 07/13/24 17:49 Temperature 97.2 F L 97.8 F Temperature Source Temporal Temporal Pulse Rate 101 H 89 64 Respiratory Rate 18 20 H 16 Blood Pressure 123/82 H 116/80 108/52 L Blood Pressure Mean 95 92 70 Blood Pressure Source Monitor Blood Pressure Position Sitting Blood Pressure Location Right Arm Pulse Ox 96 94 96 Oxygen Delivery Method Room Air Room Air Room Air 07/13/24 18:00 07/13/24 18:40 Temperature 97.8 F Temperature Source Pulse Rate 86 64 Respiratory Rate 14 18 Blood Pressure 112/76 109/78 Blood Pressure Mean 88 88 Blood Pressure Source Blood Pressure Position Blood Pressure Location Pulse Ox 98 100 Oxygen Delivery Method Room Air Weight Weight: 178 lb 9.191 oz Body Mass Index (BMI) 31.6 Physical Exam Narrative General: Awake, hyperalert, oriented x3, Cooperative HEENT: Atraumatic, PERRL (more content not included)... Normal [facility] Prothrombin Time w/INRon INR Coag (PPP) [Relative time] 1.1 {INR} Normal [facility] Comment on above: Performed By: #### L 100.0100, L500.4050, L300.3900, L505.5000, L501.9100 #### [facility] Laboratory [address] [place], [place], [id number] PT Coag (PPP) [Time] 14.4 s Normal 11.7-14.9 [place] Comment on above: Performed By: #### L 100.0100, L500.4050, L300.3900, L505.5000, L501.9100 #### [facility] Laboratory [address] [place], [address] Urine Drug Screen (VISTA)on 07-13-2024 AMPHETAMINES Negative Normal <1000 ng/mL [facility] Comment on above: Performed By: #### L 100.0100, L500.4050, L300.3900, L505.5000, L501.9100 #### [facility] Laboratory [address] [place], [place], [id number] BARBITIURATES Negative Normal < 200 ng/mL [facility] Comment on above: Performed By: #### L 100.0100, L500.4050, L300.3900, L505.5000, L501.9100 #### [facility] [address] [place], [address] BENZODIAZIPINE Negative Normal < 200 ng/mL [facility] Comment on above: Performed By: #### L 100.0100, L500.4050, L300.3900, L505.5000, L501.9100 #### [facility] Laboratory [address] [place], [address] COCAINE Negative Normal < 300 ng/mL [facility] Comment on above: Performed By: #### L 100.0100, L500.4050, L300.3900, L505.5000, L501.9100 #### [facility] [address] [place], [address] ECSTACY Negative Normal < 500 ng/mL [facility] Comment on above: Performed By: #### L 100.0100, L500.4050, L300.3900, L505.5000, L501.9100 #### [facility] Laboratory [address] [place], [address] METHADONE Negative Normal < 300 ng/mL [facility] Comment on above: Performed By: #### L 100.0100, L500.4050, L300.3900, L505.5000, L501.9100 #### [facility] [address] [place], [address] OPIATES Negative Normal < 300 ng/mL [facility] Comment on above: Performed By: #### L 100.0100, L500.4050, L300.3900, L505.5000, L501.9100 #### [facility] [address] [place], [address] PCP Negative Normal < 25 ng/mL [facility] Comment on above: Performed By: #### L 100.0100, L500.4050, L300.3900, L505.5000, L501.9100 #### [facility] Laboratory [address] [place], [address] THC Positive Abnormal < 50 ng/mL [facility] Comment on above: Performed By: #### L 100.0100, L500.4050, L300.3900, L505.5000, L501.9100 #### [facility] Laboratory [address] [place], [address] VISTA UDS PH 6 Normal [facility] Comment on above: Performed By: #### L 100.0100, L500.4050, L300.3900, L505.5000, L501.9100 #### [facility] Laboratory [address] [place], [address] XR Pelvis and Hip - left AP and Lateral frogon 03-22-2024 IMPRESSION: No acute osseous abnormality. Degenerative disease of bilateral hips, left greater than right. Director Of Group Counseling Program: [employer] Transcribe Date/Time: Mar 22 2024 1:06P Dictated by : MATTY FAJARDO MD This examination was interpreted and the report reviewed and electronically signed by: MATTY FAJARDO MD on Mar 22 2024 1:07PM [facility] DIVISION OF RADIOLOGY * * *Final Report* * * DATE OF EXAM: Mar 16 2024 1:58PM WOX 5351 - XR HIP 3V PELV+ AP/LAT LT / PROCEDURE REASON: Left hip pain * * * * Physician Interpretation * * * * EXAMINATION: XR HIP 3V PELV+ AP/LAT LT CLINICAL HISTORY: Left hip pain Technique: XR HIP 3V PELV+ AP/LAT LT -- LEFT with 3 views on 3 images Comparison: X-ray pelvis and bilateral hips 04/13/2021 RESULT: No acute fracture or dislocation. Moderate left hip joint space narrowing with subchondral sclerosis and marginal osteophytes. Minimal right hip joint space narrowing. DIVISION OF RADIOLOGY Provider, [facility] - 03/22/2024 * * *Final Report* * * DATE OF EXAM: Mar 16 2024 1:58PM WOX 5351 - XR HIP 3V PELV+ AP/LAT LT / PROCEDURE REASON: Left hip pain * * * * Physician Interpretation * * * * EXAMINATION: XR HIP 3V PELV+ AP/LAT LT CLINICAL HISTORY: Left hip pain Technique: XR HIP 3V PELV+ AP/LAT LT -- LEFT with 3 views on 3 images Comparison: X-ray pelvis and bilateral hips 04/13/2021 RESULT: No acute fracture or dislocation. Moderate left hip joint space narrowing with subchondral sclerosis and marginal osteophytes. Minimal right hip joint space narrowing. IMPRESSION IMPRESSION: No acute osseous abnormality. Degenerative disease of bilateral hips, left greater than right. Director Of Group Counseling Program: [employer] Transcribe Date/Time: Mar 22 2024 1:06P Dictated by : MATTY FAJARDO MD This examination was interpreted and the report reviewed and electronically signed by: MTATY FAJARDO MD on Mar 22 2024 1:07PM EST [facility] XR Pelvis and Hip - left AP and Lateral frogOrdered By: Ccf Provider on 03-22-2024 [facility] CBC panel Auto (Bld)on 03-16 Erythrocyte distribution width (RBC) [Ratio] 13.2 % 11.5 - 15.0 % [facility] Hematocrit (Bld) [Volume fraction] 42.9 % 36.0 - 46.0 % [facility] Hemoglobin (Bld) [Mass/Vol] 14.5 g/dL 11.5 - 15.5 g/dL [facility] Interpretation and review of laboratory results Normal [facility] MCH (RBC) [Entitic mass] 31.5 pg 26.0 - 34.0 pg [facility] MCHC (RBC) [Mass/Vol] 33.8 g/dL 30.5 - 36.0 g/dL [facility] MCV (RBC) [Entitic vol] 93.1 fL 80.0 - 100.0 fL [facility] Nucleated RBC (Bld) [#/Vol] NINF [facility] Platelet mean volume (Bld) [Entitic vol] 10.5 fL 9.0 - 12.7 fL [facility] Platelets (Bld) [#/Vol] 315 10*3/uL [facility] RBC (Bld) [#/Vol] 4.61 10*6/uL 3.90 - 5.2 0 m/uL [facility] WBC (Bld) [#/Vol] 9.22 10*3/uL [facility] XR Pelvis and Hip - left AP and Lateral frogon 03-16-2024 Radiology Study observation (narrative) [facility] COVID & INFLUENZA A/B & RSV NAAT, ROUTINEon 02-29-2024 FLUAV RNA KALI+probe Ql (Unsp spec) Not detected Not Detected [facility] FLUBV RNA KALI+probe Ql (Unsp spec) Not detected Not Detected [facility] RSV A RNA KALI+probe Ql (Unsp spec) Not detected Not Detected [facility] SARS-CoV-2 (COVID-19) RNA KALI+probe Ql (Resp) Not detected See comment [facility] XR Chest PA and Lateralon IMPRESSION: No acute radiographic abnormality. Director Of Group Counseling Program: [employer] Transcribe Date/Time: Feb 29 2024 10:36A Dictated by : MAICOL ALMANZA MD This examination was interpreted and the report reviewed and electronically signed by: MAICOL ALMANZA MD on Feb 29 2024 10:37AM [facility] DIVISION OF RADIOLOGY * * *Final Report* * * DATE OF EXAM: Feb 29 2024 10:32AM WOX 5291 - XR CHEST 2V FRONTAL/LAT / PROCEDURE REASON: multiple diagnoses * * * * Physician Interpretation * * * * EXAMINATION: CHEST RADIOGRAPH (2 VIEW FRONTAL & LATERAL) CLINICAL HISTORY: URI, acute Acute cough MQ: XC2_6 EXAM DATE/TIME: 02/29/2024 10:32 AM COMPARISON: No relevant prior studies available. RESULT: Lines, tubes, and devices: None. Lungs and pleura: No consolidation. No lung mass. No pleural effusion. No pneumothorax. Cardiomediastinal silhouette: Normal cardiomediastinal silhouette. Bones and soft tissues: There are degenerative changes in the spine. DIVISION OF RADIOLOGY Provider, [facility] - 02/29/2024 * * *Final Report* * * DATE OF EXAM: Feb 29 2024 10:32AM WOX 5291 - XR CHEST 2V FRONTAL/LAT / PROCEDURE REASON: multiple diagnoses * * * * Physician Interpretation * * * * EXAMINATION: CHEST RADIOGRAPH (2 VIEW FRONTAL & LATERAL) CLINICAL HISTORY: URI, acute Acute cough MQ: XC2_6 EXAM DATE/TIME: 02/29/2024 10:32 AM COMPARISON: No relevant prior studies available. RESULT: Lines, tubes, and devices: None. Lungs and pleura: No consolidation. No lung mass. No pleural effusion. No pneumothorax. Cardiomediastinal silhouette: Normal cardiomediastinal silhouette. Bones and soft tissues: There are degenerative changes in the spine. IMPRESSION IMPRESSION: No acute radiographic abnormality. Director Of Group Counseling Program: [employer] Transcribe Date/Time: Feb 29 2024 10:36A Dictated by : MAICOL ALMANZA MD This examination was interpreted and the report reviewed and electronically signed by: MAICOL ALMANZA MD on Feb 29 2024 10:37AM EST [facility] Radiology Study observation (narrative) [facility] XR Chest PA and LateralOrder ed By: Ccf Provider on 02-29-2024 [facility] STREP A MOLECULAR (POC)on Procedural Control Valid [facility] Strep A (POCT) Negative Negative [facility] Influenza virus A and B RNA and SARS-CoV-2 (COVID-19) N gene panel KALI+probe (Resp)on 03-24-2023 FLUAV RNA KALI+probe Ql (Unsp spec) Not detected Not Detected [facility] FLUBV RNA KALI+probe Ql (Unsp spec) Not detected Not Detected [facility] SARS-CoV-2 (COVID-19) RNA KALI+probe Ql (Resp) Not detected See comment [facility] STREP A MOLECULAR (POC)on Procedural Control Valid [facility] Strep A (POCT) Negative Negative [facility] CBC W Auto Differential pane l (Bld)on 12-15-2022 Basophils (Bld) [#/Vol] 0.10 10*3/uL <0.11 k/uL [facility] Basophils/100 WBC (Bld) 1.1 % [facility] Differential cell count method Nom (Bld) Auto [facility] Eosinophils (Bld) [#/Vol] 0.26 10*3/uL <0.46 k/uL [facility] Eosinophils/100 WBC (Bld) 3.0 % [facility] Erythrocyte distribution width (RBC) [Ratio] 13.2 % 11.5 - 15.0 % [facility] Hematocrit (Bld) [Volume fraction] 42.2 % 36.0 - 46.0 % [facility] Hemoglobin (Bld) [Mass/Vol] 14.3 g/dL 11.5 - 15.5 g/dL [facility] Immature granulocytes (Bld) [#/Vol] 0.03 10*3/uL <0.10 k/uL [facility] Immature granulocytes/100 WBC (Bld) 0.3 % [facility] Lymphocytes (Bld) [#/Vol] 3.04 10*3/uL 1.00 - 4.00 k/uL [facility] Lymphocytes/100 WBC (Bld) 34.9 % [facility] MCH (RBC) [Entitic mass] 31.0 pg 26.0 - 34.0 pg [facility] MCHC (RBC) [Mass/Vol] 33.9 g/dL 30.5 - 36.0 g/dL [facility] MCV (RBC) [Entitic vol] 91.3 fL 80.0 - 100.0 fL [facility] Monocytes (Bld) [#/Vol] 0.61 10*3/uL <0.87 k/uL [facility] Monocytes/100 WBC (Bld) 7.0 % [facility] Neutrophils (Bld) [#/Vol] 4.67 10*3/uL 1.45 - 7.50 k/uL [facility] Neutrophils/100 WBC (Bld) 53.7 % [facility] Nucleated RBC (Bld) [#/Vol] <0.01 k/uL [facility] Nucleated RBC/100 WBC (Bld) [Ratio] 0.0 /100 WBC [facility] Platelet mean volume (Bld) [Entitic vol] 10.3 fL 9.0 - 12.7 fL [facility] Platelets (Bld) [#/Vol] 372 10*3/uL 150 - 400 k/uL [facility] RBC (Bld) [#/Vol] 4.62 10*6/uL 3.90 - 5.2 0 m/uL [facility] WBC (Bld) [#/Vol] 8.71 10*3/uL 3.70 - 11. 00 k/uL [facility] Absolute lymphocyte counton 03-06-2022 Lymphocytes Auto (Unsp spec) [#/Vol] 2.01 10*3/uL 0.83-4.51 [facility] Work Phone: [phone] Amorphous sediment detection in urine sediment by light microscopyon 03-06-2022 Amorphous sediment LM Ql (Urine sed) 2+ [facility] Work Phone: Basophil percentageon 2021 Basophil percentage 0 SEEN /hpf 0-5 [place] Work Phone: Basophils/100 WBC (Bld) 0.7 % 0-1 [facility] Work Phone: [phone] Bilirubin [Mass/Vol] 0.20 mg/dL 0.20-1.00 [place] Work Phone: Comment on above: For patients on eltr ombopag therapy, use of Dimension [place] TBIL is not recommended. Chloride [Moles/Vol] 108 mmol/L 98-107 [place] Work Phone: Eosinophils/100 WBC (Bld) 3.0 % 0-5 [facility] Work Phone: [phone] Glucose [Mass/Vol] 86 mg/dL 74-[address] [facility] Work Phone: Neutrophils (Bld) [#/Vol] 5.4 10*3/uL 2.0-7.7 [facility] Work Phone: Neutrophils/100 WBC (Bld) 64.9 % 47-70 [facility] Work Phone: Potassium [Moles/Vol] 4.3 mmol/L 3.5-5.1 [facility] Work Phone: Protein [Mass/Vol] 6.6 g/dL 6.4-8.[address] [facility] Work Phone: Sodium [Moles/Vol] 139 mmol/L 136-[address] [facility] Work Phone: WBC (Bld) [#/Vol] 8.3 10*3/uL 4.4-11.[address] [facility] Work Phone: Bilirubin Test strip Ql (U)o n 03-06-2022 Bilirubin Ql (U) Negative Negative [facility] Work Phone: Blood erythrocytes count (nu mber/volume)on 03-06-2022 RBC (Bld) [#/Vol] 4.59 10*6/uL 4.2-5.4 [facility] Work Phone: Blood hemoglobin measurement (mass/volume)on 03-06-2022 Hemoglobin (Bld) [Mass/Vol] 14.1 g/dL 12.0-15.0 [facility] Work Phone: Blood lymphocytes/100 leukoc yteson 03-06-2022 Lymphocytes/100 WBC (Bld) 24.2 % 19-41 [facility] Work Phone: Blood monocytes/100 leukocyt eson 03-06-2022 Monocytes/100 WBC (Bld) 6.0 % 0-10 [facility] Work Phone: Blood platelet mean volumeon 03-06-2022 Platelet mean volume (Bld) [Entitic vol] 10.0 fL 6.2-12.0 [facility] Work Phone: Determination of erythrocyte mean corpuscular volume (MCV)on 03-06-2022 MCV (RBC) [Entitic vol] 91.3 fL 81-99 [facility] Work Phone: Hematocrit Auto (Bld) [Volum e fraction]on 03-06-2022 Hematocrit (Bld) [Volume fraction] 41.9 % 37-47 [facility] Work Phone: Ketones Test strip Ql (U)on 03-06-2022 Ketones Ql (U) Negative Negative [facility] Work Phone: Laboratory - Chemistry and C hemistry - challengeon 03-06-2022 ALP [Catalytic activity/Vol] 93 U/L 45-117 [facility] Work Phone: ALT [Catalytic activity/Vol] 18 U/L 13-56 [facility] Work Phone: CO2 [Moles/Vol] 29.0 mmol/L 21.0-32.0 [facility] Work Phone: [phone] Globulin (S) [Mass/Vol] 3.0 g/dL 2.2-4.2 [facility] Work Phone: Lipase [Catalytic activity/Vol] 63 U/L 73-393 [facility] Work Phone: [phone] Urea nitrogen/Creatinine [Mass ratio] 29.9 mg/mg 10-20 [facility] Work Phone: Laboratory - Hematology and Cell countson 03-06-2022 Erythrocyte distribution width (RBC) [Entitic vol] 43.5 fL 35.1-43.9 [facility] Work Phone: Erythrocyte distribution width (RBC) [Ratio] 13.0 % 11.6-14.6 [facility] Work Phone: Immature granulocytes/100 WBC (Bld) 1.200 % 0.0-0.9 [facility] Work Phone: Comment on above: IG% - Immature Granu locytes (promyelocytes, myelocytes and metamyelocytes) > 1% indicates that a LEFT SHIFT is Present. MCH (RBC) [Entitic mass] 30.7 pg 27.0-32.0 [facility] Work Phone: Nucleated RBC/100 WBC (Bld) [Ratio] 0 % 0-5 [facility] Work Phone: MCHC Auto (RBC) [Mass/Vol]on 03-06-2022 MCHC (RBC) [Mass/Vol] 33.7 g/dL 32-36 [facility] Work Phone: Mucus LM Ql (Urine sed)on Mucus Ql (Urine sed) 0 SEEN [facility] Work Phone: Nitrite Test strip Ql (U)on 03-06-2022 Nitrite Ql (U) Negative Negative [facility] Work Phone: No Panel Informationon 03-06 D-Dimer Quantitative (PE/DVT) < 0.27 FEU/ug/m 0.27-0.49 [facility] Work Phone: Comment on above: NORMAL D-Dimer level (<0.50) indicates no DVT or PE. Estimated Creatinine Clearance Calc 95.17 ml/min [facility] Work Phone: Estimated GFR (MDRD) Amer 141 mL/min >60 [facility] Work Phone: Comment on above: GFR Calc Estimated GFR (MDRD) Non-Af Amer 117 mL/min >60 [facility] Work Phone: Comment on above: Non- GFR Calc Platelets bldon 03-06-2022 Platelets (Bld) [#/Vol] 268 10*3/uL 150-450 [facility] Work Phone: Protein Test strip Ql (U)on 03-06-2022 Protein Ql (U) Negative Negative [facility] Work Phone: Serum or plasma albumin ly urement (mass/volume)on 03-06-2022 Albumin [Mass/Vol] 3.6 g/dL 3.2-5.[address] [facility] Work Phone: Serum or plasma albumin/glob ulin mass ratioon 03-06-2022 Albumin/Globulin [Mass ratio] 1.2 {ratio} 0.9-2.4 [facility] Work Phone: Serum or plasma calcium ly urement (mass/volume)on 03-06-2022 Calcium [Mass/Vol] 9.1 mg/dL 8.5-10.[address] [facility] Work Phone: Serum or plasma creatinine m easurement (mass/volume)on 03-06-2022 Creatinine [Mass/Vol] 0.57 mg/dL 0.55-1.02 [facility] Work Phone: Comment on above: The validity of the calculated GFR & GFRAA in patients over 70 years has not been determined. Clinical correlation is essential. Serum or plasma urea nitroge n measurement (mass/volume)on 03-06-2022 Urea nitrogen [Mass/Vol] 17 mg/dL 7-18 [facility] Work Phone: Squamous epithelial cells de tection in urine sediment by light microscopyon 03-06-2022 Epithelial cells.squamous LM Ql (Urine sed) 0 SEEN /hpf 5-10 [facility] Work Phone: Thin prep Papanicolaou smear with manual screeningon 03-06-2022 Thin prep Papanicolaou smear with manual screening 12 U/L 15-37 [facility] Work Phone: Thin prep Papanicolaou smear with manual screening 2 5-15 [facility] Work Phone: UA DIP, URINE (POC)on 2021 BILIRUBIN UA (POCT) Negative Negative [facility] CLARITY UA (POCT) Clear [facility] COLOR UA (POCT) Yellow [facility] GLUCOSE UA (POCT) Negative Negative mg/dL [facility] HEMOGLOBIN/BLOOD UA (POCT) Trace-intact Abnormal Negative [facility] KETONE UA (POCT) Negative Negative mg/dL [facility] LEUKOCYTES UA (POCT) Negative Negative [facility] NITRITE UA (POCT) Negative Negative [facility] PH UA (POCT) 6.5 4.5 - 8.0 [facility] Protein Ql (U) Negative Negative mg/dL [facility] SPECIFIC GRAVITY UA (POCT) >=1.030 1.005 - 1.030 [facility] UROBILINOGEN UA (POCT) 0.2 E.U./dL Normal E.U./dL [facility] Urine blood detectionon 02-21 RBC Ql (U) 10 /ul Negative [facility] Work Phone: RBC Ql (U) 0 SEEN /hpf 0-5 [facility] Work Phone: Urine clarityon 03-06-2022 Clarity (U) Sl. Cloudy Clear [facility] Work Phone: Urine color determinationon 03-06-2022 Color (U) Yellow Yellow [facility] Work Phone: Urine glucose detectionon Glucose Ql (U) Normal mg/dl Normal [facility] Work Phone: Urine leukocyte esterase det ection by dipstickon 03-06-2022 Leukocyte esterase Test strip Ql (U) Negative Negative [facility] Work Phone: Urine pHon 03-06-2022 pH (U) 7.0 [pH] 5.0 - 8.0 [facility] Work Phone: Urine sediment bacteria coun t by microscopy (number/high power field)on 03-06-2022 Bacteria LM.HPF (Urine sed) [#/Area] 0 /[HPF] None Seen [facility] Work Phone: Urine specific gravity measu rementon 03-06-2022 Specific gravity (U) [Rel density] 1.020 1.002-1.030 [facility] Work Phone: Urobilinogen Auto test strip Ql (U)on 03-06-2022 Urobilinogen Ql (U) Normal mg/dl Normal [facility] Work Phone: Absolute lymphocyte counton 01-26-2022 Lymphocytes Auto (Unsp spec) [#/Vol] 2.39 10*3/uL 0.83-4.51 [facility] Work Phone: Basophil percentageon 2021 Basophil percentage 0-5 SEEN /hpf [facility] Work Phone: Basophils/100 WBC (Bld) 0.8 % 0-1 [facility] Work Phone: Eosinophils/100 WBC (Bld) 4.6 % 0-5 [facility] Work Phone: Neutrophils (Bld) [#/Vol] 4.2 10*3/uL 2.0-7.7 [facility] Work Phone: Neutrophils/100 WBC (Bld) 56.2 % 47-70 [facility] Work Phone: WBC (Bld) [#/Vol] 7.4 10*3/uL 4.4-11.[address] [facility] Work Phone: Bilirubin [Mass/Vol] 0.40 mg/dL 0.20-1.00 [place] Work Phone: Comment on above: For patients on eltr ombopag therapy, use of Dimension [place] TBIL is not recommended. Chloride [Moles/Vol] 109 mmol/L 98-107 [place] Work Phone: Glucose [Mass/Vol] 107 mg/dL 74-[address] [facility] Work Phone: Comment on above: Fasting Glucose resu lt from 100 to 125 mg/dL suggests IMPAIRED HOMEOSTASIS per A.D.A. criteria. Potassium [Moles/Vol] 3.8 mmol/L 3.5-5.1 [facility] Work Phone: Protein [Mass/Vol] 6.3 g/dL 6.4-8.[address] [facility] Work Phone: Sodium [Moles/Vol] 140 mmol/L 136-[address] [facility] Work Phone: Bilirubin Test strip Ql (U)o n 01-26-2022 Bilirubin Ql (U) Negative Negative [facility] Work Phone: Blood erythrocytes count (nu mber/volume)on 01-26-2022 RBC (Bld) [#/Vol] 4.04 10*6/uL 4.2-5.4 [facility] Work Phone: Blood hemoglobin measurement (mass/volume)on 01-26-2022 Hemoglobin (Bld) [Mass/Vol] 13.0 g/dL 12.0-15.0 [facility] Work Phone: Blood lymphocytes/100 leukoc yteson 01-26-2022 Lymphocytes/100 WBC (Bld) 32.2 % 19-41 [facility] Work Phone: Blood monocytes/100 leukocyt eson 01-26-2022 Monocytes/100 WBC (Bld) 5.9 % 0-10 [facility] Work Phone: Blood platelet mean volumeon 01-26-2022 Platelet mean volume (Bld) [Entitic vol] 10.5 fL 6.2-12.0 [facility] Work Phone: Determination of erythrocyte mean corpuscular volume (MCV)on 01-26-2022 MCV (RBC) [Entitic vol] 92.8 fL 81-99 [facility] Work Phone: Hematocrit Auto (Bld) [Volum e fraction]on 01-26-2022 Hematocrit (Bld) [Volume fraction] 37.5 % 37-47 [facility] Work Phone: Ketones Test strip Ql (U)on 01-26-2022 Ketones Ql (U) 5 mg/dl Negative [facility] Work Phone: Laboratory - Chemistry and C hemistry - challengeon 01-26-2022 ALP [Catalytic activity/Vol] 86 U/L 45-117 [facility] Work Phone: ALT [Catalytic activity/Vol] 17 U/L 13-56 [facility] Work Phone: CO2 [Moles/Vol] 27.0 mmol/L 21.0-32.0 [facility] Work Phone: Globulin (S) [Mass/Vol] 2.7 g/dL 2.2-4.2 [facility] Work Phone: Lipase [Catalytic activity/Vol] 53 U/L 73-393 [facility] Work Phone: Urea nitrogen/Creatinine [Mass ratio] 32.1 mg/mg 10-20 [facility] Work Phone: Laboratory - Hematology and Cell countson 01-26-2022 Erythrocyte distribution width (RBC) [Entitic vol] 45.0 fL 35.1-43.9 [facility] Work Phone: Erythrocyte distribution width (RBC) [Ratio] 13.2 % 11.6-14.6 [facility] Work Phone: Immature granulocytes/100 WBC (Bld) 0.300 % 0.0-0.9 [facility] Work Phone: Comment on above: IG% - Immature Granu locytes (promyelocytes, myelocytes and metamyelocytes) > 1% indicates that a LEFT SHIFT is Present. MCH (RBC) [Entitic mass] 32.2 pg 27.0-32.0 [facility] Work Phone: Nucleated RBC/100 WBC (Bld) [Ratio] 0 % 0-5 [facility] Work Phone: MCHC Auto (RBC) [Mass/Vol]on 01-26-2022 MCHC (RBC) [Mass/Vol] 34.7 g/dL 32-36 [facility] Work Phone: Mucus LM Ql (Urine sed)on Mucus Ql (Urine sed) 0 SEEN /hpf [facility] Work Phone: Nitrite Test strip Ql (U)on 01-26-2022 Nitrite Ql (U) Negative Negative [facility] Work Phone: No Panel Informationon 01-26 Estimated Creatinine Clearance Calc 83.45 ml/min [facility] Work Phone: Estimated GFR (MDRD) Amer 120 mL/min >60 [facility] Work Phone: Comment on above: GFR Calc Estimated GFR (MDRD) Non-Af Amer 99 mL/min >60 [facility] Work Phone: Comment on above: Non- GFR Calc Platelets bldon 01-26-2022 Platelets (Bld) [#/Vol] 261 10*3/uL 150-450 [facility] Work Phone: Protein Test strip Ql (U)on 01-26-2022 Protein Ql (U) Negative Negative [facility] Work Phone: Serum or plasma albumin ly urement (mass/volume)on 01-26-2022 Albumin [Mass/Vol] 3.6 g/dL 3.2-5.[address] [facility] Work Phone: Serum or plasma albumin/glob ulin mass ratioon 01-26-2022 Albumin/Globulin [Mass ratio] 1.3 {ratio} 0.9-2.4 [facility] Work Phone: Serum or plasma calcium ly urement (mass/volume)on 01-26-2022 Calcium [Mass/Vol] 8.8 mg/dL 8.5-10.[address] [facility] Work Phone: Serum or plasma creatinine m easurement (mass/volume)on 01-26-2022 Creatinine [Mass/Vol] 0.65 mg/dL 0.55-1.02 [facility] Work Phone: Comment on above: The validity of the calculated GFR & GFRAA in patients over 70 years has not been determined. Clinical correlation is essential. Serum or plasma urea nitroge n measurement (mass/volume)on 01-26-2022 Urea nitrogen [Mass/Vol] 21 mg/dL 7-18 [facility] Work Phone: Squamous epithelial cells de tection in urine sediment by light microscopyon 01-26-2022 Epithelial cells.squamous LM Ql (Urine sed) 0-5 SEEN /hpf [facility] Work Phone: Thin prep Papanicolaou smear with manual screeningon 01-26-2022 Thin prep Papanicolaou smear with manual screening 12 U/L 15-37 [facility] Work Phone: Thin prep Papanicolaou smear with manual screening 4 5-15 [facility] Work Phone: Urine blood detectionon RBC Ql (U) 10 /ul Negative [facility] Work Phone: RBC Ql (U) 0-5 SEEN /hpf [facility] Work Phone: Urine clarityon 01-26-2022 Clarity (U) Sl. Cloudy Clear [facility] Work Phone: Urine color determinationon 01-26-2022 Color (U) Yellow Yellow [facility] Work Phone: Urine glucose detectionon Glucose Ql (U) Normal mg/dl Normal [facility] Work Phone: Urine leukocyte esterase det ection by dipstickon 01-26-2022 Leukocyte esterase Test strip Ql (U) 25 /ul Negative [facility] Work Phone: Urine pHon 01-26-2022 pH (U) 5.0 [pH] [facility] Work Phone: Urine sediment bacteria coun t by microscopy (number/high power field)on 01-26-2022 Bacteria LM.HPF (Urine sed) [#/Area] 0 /[HPF] None Seen [facility] Work Phone: Urine specific gravity measu rementon 01-26-2022 Specific gravity (U) [Rel density] 1.025 [facility] Work Phone: Urobilinogen Auto test strip Ql (U)on 01-26-2022 Urobilinogen Ql (U) 1 mg/dl Normal [facility] Work Phone: Absolute lymphocyte counton 01-22-2022 Lymphocytes Auto (Unsp spec) [#/Vol] 2.12 10*3/uL 0.83-4.51 [facility] Work Phone: Basophil percentageon 2021 Basophils/100 WBC (Bld) 0.7 % 0-1 [facility] Work Phone: Bilirubin [Mass/Vol] 0.50 mg/dL 0.20-1.00 [place] Work Phone: Comment on above: For patients on eltr ombopag therapy, use of [place] TBIL is not recommended. Chloride [Moles/Vol] 103 mmol/L 98-107 [place] Work Phone: Eosinophils/100 WBC (Bld) 2.1 % 0-5 [facility] Work Phone: Glucose [Mass/Vol] 91 mg/dL 74-[address] [facility] Work Phone: Neutrophils (Bld) [#/Vol] 4.7 10*3/uL 2.0-7.7 [facility] Work Phone: Neutrophils/100 WBC (Bld) 62.3 % 47-70 [facility] Work Phone: Potassium [Moles/Vol] 4.3 mmol/L 3.5-5.1 [facility] Work Phone: Protein [Mass/Vol] 7.5 g/dL 6.4-8.[address] [facility] Work Phone: Sodium [Moles/Vol] 138 mmol/L 136-[address] [facility] Work Phone: WBC (Bld) [#/Vol] 7.6 10*3/uL 4.4-11.[address] [facility] Work Phone: Blood erythrocytes count (nu mber/volume)on 01-22-2022 RBC (Bld) [#/Vol] 4.76 10*6/uL 4.2-5.4 [facility] Work Phone: Blood hemoglobin measurement (mass/volume)on 01-22-2022 Hemoglobin (Bld) [Mass/Vol] 14.6 g/dL 12.0-15.0 [facility] Work Phone: Blood lymphocytes/100 leukoc yteson 01-22-2022 Lymphocytes/100 WBC (Bld) 28.0 % 19-41 [facility] Work Phone: Blood monocytes/100 leukocyt eson 01-22-2022 Monocytes/100 WBC (Bld) 6.5 % 0-10 [facility] Work Phone: Blood platelet mean volumeon 01-22-2022 Platelet mean volume (Bld) [Entitic vol] 10.1 fL 6.2-12.0 [facility] Work Phone: Determination of erythrocyte mean corpuscular volume (MCV)on 01-22-2022 MCV (RBC) [Entitic vol] 88.9 fL 81-99 [facility] Work Phone: Hematocrit Auto (Bld) [Volum e fraction]on 01-22-2022 Hematocrit (Bld) [Volume fraction] 42.3 % 37-47 [facility] Work Phone: Laboratory - Chemistry and C hemistry - challengeon 01-22-2022 ALP [Catalytic activity/Vol] 100 U/L 45-117 [facility] Work Phone: ALT [Catalytic activity/Vol] 18 U/L 13-56 [facility] Work Phone: CO2 [Moles/Vol] 30.0 mmol/L 21.0-32.0 [facility] Work Phone: Globulin (S) [Mass/Vol] 3.5 g/dL 2.2-4.2 [facility] Work Phone: Lipase [Catalytic activity/Vol] 69 U/L 73-393 [facility] Work Phone: Urea nitrogen/Creatinine [Mass ratio] 23.5 mg/mg 10-20 [facility] Work Phone: Laboratory - Hematology and Cell countson 01-22-2022 Erythrocyte distribution width (RBC) [Entitic vol] 43.1 fL 35.1-43.9 [facility] Work Phone: Erythrocyte distribution width (RBC) [Ratio] 13.2 % 11.6-14.6 [facility] Work Phone: Immature granulocytes/100 WBC (Bld) 0.400 % 0.0-0.9 [facility] Work Phone: Comment on above: IG% - Immature Granu locytes (promyelocytes, myelocytes and metamyelocytes) > 1% indicates that a LEFT SHIFT is Present. MCH (RBC) [Entitic mass] 30.7 pg 27.0-32.0 [facility] Work Phone: Nucleated RBC/100 WBC (Bld) [Ratio] 0 % 0-5 [facility] Work Phone: MCHC Auto (RBC) [Mass/Vol]on 01-22-2022 MCHC (RBC) [Mass/Vol] 34.5 g/dL 32-36 [facility] Work Phone: No Panel Informationon 01-22 Estimated Creatinine Clearance Calc 84.76 ml/min [facility] Work Phone: Estimated GFR (MDRD) Amer 123 mL/min >60 [facility] Work Phone: Comment on above: GFR Calc Estimated GFR (MDRD) Non-Af Amer 102 mL/min >60 [facility] Work Phone: Comment on above: Non- GFR Calc Platelets bldon 01-22-2022 Platelets (Bld) [#/Vol] 321 10*3/uL 150-450 [facility] Work Phone: Serum or plasma albumin ly urement (mass/volume)on 01-22-2022 Albumin [Mass/Vol] 4.0 g/dL 3.2-5.[address] [facility] Work Phone: Serum or plasma albumin/glob ulin mass ratioon 01-22-2022 Albumin/Globulin [Mass ratio] 1.1 {ratio} 0.9-2.4 [facility] Work Phone: Serum or plasma calcium ly urement (mass/volume)on 01-22-2022 Calcium [Mass/Vol] 9.7 mg/dL 8.5-10.[address] [facility] Work Phone: Serum or plasma creatinine m easurement (mass/volume)on 01-22-2022 Creatinine [Mass/Vol] 0.64 mg/dL 0.55-1.02 [facility] Work Phone: Comment on above: The validity of the calculated GFR & GFRAA in patients over 70 years has not been determined. Clinical correlation is essential. Serum or plasma urea nitroge n measurement (mass/volume)on 01-22-2022 Urea nitrogen [Mass/Vol] 15 mg/dL 7-18 [facility] Work Phone: Thin prep Papanicolaou smear with manual screeningon 01-22-2022 Thin prep Papanicolaou smear with manual screening 13 U/L 15-37 [facility] Work Phone: Thin prep Papanicolaou smear with manual screening 5 5-15 [facility] Work Phone: No Panel Informationon 04-13 Radiology Study observation (narrative) [facility] XR Cervical spine AP and Lat eral and obliqueon 04-13-2021 IMPRESSION: Cervical spine degenerative changes with multilevel disc space narrowing and bilateral neural foraminal narrowing. Director Of Group Counseling Program: [facility] Transcribe Date/Time: Apr 13 2021 9:53P Dictated by : MAICOL ALMANZA MD This examination was interpreted and the report reviewed and electronically signed by: MAICOL ALMANZA MD on Apr 13 2021 9:56PM [facility] DIVISION OF RADIOLOGY * * *Final Report* * * DATE OF EXAM: Apr 13 2021 10:17AM WOX [id number] - XR CERVICAL 4V AP/LAT/OBL / PROCEDURE REASON: Neck pain * * * * Physician Interpretation * * * * EXAM TITLE: XR CERVICAL 4V AP/LAT/OBL EXAM DATE/TIME: 04/13/2021 10:17 AM COMPARISON: None. CLINICAL INDICATION/HISTORY: Cervicalgia. TECHNIQUE: AP, lateral, swimmer's and oblique views of the cervical spine are presented. FINDINGS: No fractures or subluxations are noted. There is straightening of the cervical spine curvature. C4-5 and C5-6 disc space narrowing is demonstrated. There is moderate osteophyte formation, with facet arthrosis. Multilevel mild bilateral neural foraminal narrowing demonstrated. The prevertebral soft tissues are normal. DIVISION OF RADIOLOGY Provider, [facility] Tez watson [place] - 04/13/2021 * * *Final Report* * * DATE OF EXAM: Apr 13 2021 10:17AM WOX [id number] - XR CERVICAL 4V AP/LAT/OBL / PROCEDURE REASON: Neck pain * * * * Physician Interpretation * * * * EXAM TITLE: XR CERVICAL 4V AP/LAT/OBL EXAM DATE/TIME: 04/13/2021 10:17 AM COMPARISON: None. CLINICAL INDICATION/HISTORY: Cervicalgia. TECHNIQUE: AP, lateral, swimmer's and oblique views of the cervical spine are presented. FINDINGS: No fractures or subluxations are noted. There is straightening of the cervical spine curvature. C4-5 and C5-6 disc space narrowing is demonstrated. There is moderate osteophyte formation, with facet arthrosis. Multilevel mild bilateral neural foraminal narrowing demonstrated. The prevertebral soft tissues are normal. IMPRESSION IMPRESSION: Cervical spine degenerative changes with multilevel disc space narrowing and bilateral neural foraminal narrowing. 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 Director Of Group Counseling Program[facility] Transcribe Date/Time: Apr 13 2021 9:56P Dictated by : MAICOL ALMANZA MD This examination was interpreted and the report reviewed and electronically signed by: MAICOL ALMANZA MD on Apr 13 2021 9:59PM [facility] DIVISION OF RADIOLOGY * * *Final Report* * * DATE OF EXAM: Apr 13 2021 10:17AM WOX [id number] - XR HIP AIDA 5V PEL+ AP/LAT EA HIP / PROCEDURE REASON: multiple diagnoses * * * * Physician Interpretation * * * * EXAM TITLE: XR HIP AIDA 5V PEL+ AP/LAT EA HIP EXAM DATE/TIME: 04/13/2021 10:17 AM COMPARISON: None. CLINICAL INDICATION/HISTORY: Bilateral hip pain. TECHNIQUE: AP and frog lateral views of the hips and AP view of the pelvis are presented. FINDINGS: No fractures or subluxations are noted in the bilateral hips. There appears to be slight bilateral hip joint space narrowing, with subchondral bony sclerosis along the acetabula. No significant osteophyte formation seen in the hips. The visualized pelvic bones are intact. The mineralization of the bones is normal. There is no significant soft tissue swelling. Others: A tubal ligation surgical clip seen in the left pelvis. DIVISION OF RADIOLOGY Provider, [facility] - 04/13/2021 * * *Final Report* * * DATE OF EXAM: Apr 13 2021 10:17AM WOX [id number] - XR HIP AIDA 5V PEL+ AP/LAT EA HIP / PROCEDURE REASON: multiple diagnoses * * * * Physician Interpretation * * * * EXAM TITLE: XR HIP AIDA 5V PEL+ AP/LAT EA HIP EXAM DATE/TIME: 04/13/2021 10:17 AM COMPARISON: None. CLINICAL INDICATION/HISTORY: Bilateral hip pain. TECHNIQUE: AP and frog lateral views of the hips and AP view of the pelvis are presented. FINDINGS: No fractures or subluxations are noted in the bilateral hips. There appears to be slight bilateral hip joint space narrowing, with subchondral bony sclerosis along the acetabula. No significant osteophyte formation seen in the hips. The visualized pelvic bones are intact. The mineralization of the bones is normal. There is no significant soft tissue swelling. Others: A tubal ligation surgical clip seen in the left pelvis. 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 Director Of Group Counseling Program: [facility] Transcribe Date/Time: Apr 13 2021 9:56P Dictated by : MAICOL ALMANZA MD This examination was interpreted and the report reviewed and electronically signed by: MAICOL ALMANZA MD on Apr 13 2021 9:59PM [facility] TOXASSURE COMPRon 07-09-2019 TOXASSURE COMPR FINAL Normal () [facility] Comment on above: Order Comment: [place]ano long: Marian Result Comment: === TOXASSURE COMP DRUG ANALYSIS,UR === Test Result Flag Units Drug Present Buprenorphine 235 ng/mg creat Norbuprenorphine 426 ng/mg creat Source of buprenorphine is a scheduled prescription medication. Norbuprenorphine is an expected metabolite of buprenorphine. Naproxen PRESENT === Test Result Flag Units Ref Range Creatinine 98 mg/dL >=20 === Declared Medications: Medication list was not provided. === For clinical consultation, please call . === Performed At: [facility] [facility] [address] [place], [place] [id number] [place] Branch PhrmD [phone] Performed By: #### L [phone] #### [facility] [address] [place] [address] # [phone] TOXASSURE COMPRon 06-07-2019 TOXASSURE COMPR FINAL Normal () [facility] Comment on above: Order Comment: Campu s: M Result Comment: === TOXASSURE COMP DRUG ANALYSIS,UR === Test Result Flag Units Drug Present Buprenorphine 69 ng/mg creat Norbuprenorphine 558 ng/mg creat Source of buprenorphine is a scheduled prescription medication. Norbuprenorphine is an expected metabolite of buprenorphine. Naproxen PRESENT === Test Result Flag Units Ref Range Creatinine 89 mg/dL >=20 === Declared Medications: Medication list was not provided. === For clinical consultation, please call . === Performed At: [facility] [address] [place], [place] [id number] [facility] [id number] Performed By: #### L [id number] #### [facility] [address] [address] 6-ACETYLMORPHINon 05-06-2019 6-DAYNA TOXASSURE Negative Normal () [facility] Comment on above: Order Comment: Urbano Fonseca Performed By: #### L 600.69755, L600.61036 #### [facility] [address] [address] CONFIRMATION 6M Not Detected Normal () [facility] Comment on above: Order Comment: Urbano Fonseca Result Comment: INFC E Result Units: ng/mg creat Testing Threshold: 10 ng/mL This test was developed and its performance characteristics determined by [facility]. It has not been cleared or approved by the Food and Drug Administration. Performed At: [facility] [address] [place], [place] [id number] [facility] [id number] Performed By: #### L 600.25239, L600.88228 #### [facility] [address] [address] TOXASSURE COMPRon 05-06-2019 TOXASSURE COMPR FINAL Normal () [facility] Comment on above: Order Comment: Urbano Fonseca Result Comment: === TOXASSURE COMP DRUG ANALYSIS,UR 6-Acetylmorphine,ToxAssure Add CREATININE,URINE === Test Result Flag Units Drug Present Buprenorphine 157 ng/mg creat Norbuprenorphine 329 ng/mg creat Source of buprenorphine is a scheduled prescription medication. Norbuprenorphine is an expected metabolite of buprenorphine. Naproxen PRESENT === Test Result Flag Units Ref Range Creatinine 180 mg/dL >=20 === Declared Medications: Medication list was not provided. === For clinical consultation, please call . === Performed By: #### L 600.38849, L600.58877 #### [facility] [address] [place] [address] 6-ACETYLMORPHINon 04-04-2019 6-DAYNA TOXASSURE Negative Normal () [facility] Comment on above: Order Comment: Urbano long: M Performed By: #### L 600.11474, L600.11650 #### [facility] [address] [place] [address] CONFIRMATION 6M Not Detected Normal () [facility] Comment on above: Order Comment: Urbano s: M Result Comment: INFC E Result Units: ng/mg creat Testing Threshold: 10 ng/mL This test was developed and its performance characteristics determined by [facility]. It has not been cleared or approved by the Food and Drug Administration. Performed At: [facility] [address] [id number] [place] [facility] [place] [id number] Performed By: #### L 600.63968, L600.06085 #### [facility] [address] [place] [address] TOXASSURE COMPRon 04-04-2019 TOXASSURE COMPR FINAL Normal () [facility] Comment on above: Order Comment: Urbano s: M Result Comment: === TOXASSURE COMP DRUG ANALYSIS,UR 6-Acetylmorphine,ToxAssure Add CREATININE,URINE === Test Result Flag Units Drug Present Buprenorphine 138 ng/mg creat Norbuprenorphine 363 ng/mg creat Source of buprenorphine is a scheduled prescription medication. Norbuprenorphine is an expected metabolite of buprenorphine. === Test Result Flag Units Ref Range Creatinine 94 mg/dL >=20 === Declared Medications: Medication list was not provided. === For clinical consultation, please call . === Performed By: #### L 600.88607, L600.10301 #### [facility] [address] [place] [address] 6-ACETYLMORPHINon 03-08-2019 6-DAYNA TOXASSURE Negative Normal () [facility] Comment on above: Order Comment: Urbano Fonseca Performed By: #### L 600.37639, L600.71273 #### [facility] [address] [place] [address] CONFIRMATION 6M Not Detected Normal () [facility] Comment on above: Order Comment: Campu s: M Result Comment: INFC E Result Units: ng/mg creat Testing Threshold: 10 ng/mL This test was developed and its performance characteristics determined by [facility]. It has not been cleared or approved by the Food and Drug Administration. Performed At: [facility] [address] [place], [place] [id number] [facility] [id number] Performed By: #### L 600.05909, L600.63008 #### [facility] [address] [place] [address] # [phone] TOXASSURE COMPRon 03-08-2019 TOXASSURE COMPR FINAL Normal () [facility] Comment on above: Order Comment: Urbano s: M Result Comment: === TOXASSURE COMP DRUG ANALYSIS,UR 6-Acetylmorphine,ToxAssure Add CREATININE,URINE === Test Result Flag Units Drug Present Buprenorphine 151 ng/mg creat Norbuprenorphine 765 ng/mg creat Source of buprenorphine is a scheduled prescription medication. Norbuprenorphine is an expected metabolite of buprenorphine. === Test Result Flag Units Ref Range Creatinine 107 mg/dL >=20 === Declared Medications: Medication list was not provided. === For clinical consultation, please call . === Performed By: #### L 600.31386, L600.36806 #### [facility] [address] [place] [address] # [phone] Culture Anaerobeon 9 Culture Anaerobe Specimen Comments: VOLAR FINGER RIGHT 2ND DIGIT Culture Observations:--------- --- No anaerobes isolated Susceptibility Data: [facility] Comment on above: Order Comment: VOLAR FINGER RIGHT 2ND DIGIT Performed By: #### C NICHO #### [facility] [address] [place] [address] Culture Wound Aerobic w/ Gra m Ston 12-27-2018 Culture Wound Aerobic w/ Gram St Specimen Comments: VOLAR FINGER RIGHT 2ND DIGIT Direct Exam: Small # WBCs No organisms seen Culture Exam: 1. Pasteurella multocida Small numbers of Susceptibility Data: [facility] Comment on above: Order Comment: GERI wise erformed at additional charge when indicated VOLAR FINGER RIGHT 2ND DIGIT Result Comment: No s ensitivity perfomed on this organism Performed By: #### C XWND #### [facility] [address] [place] [address] Surgical Pathology Depar tmenton 12-27-2018 [facility] Surgical Pathology Department Name KAMI WATTS Pathologist: ZACK TOSCANO MD Date of Procedure: 12/27/2018 Date Received: 12/28/2018 Date Reported 12/30/2018 Submitting Physician: HERNESTO PHAN MD Location: [facility] Copy To/Referring/Attending : EARNEST DUEÑAS M.D. Other External # [id number] FINAL DIAGNOSIS A. VOLAR FINGER, RIGHT SECOND DIGIT: -- PORTION OF FIBROUS TISSUE WITH EDEMA, ACUTE AND CHRONIC INFLAMMATION. sap bw consultant: Gordon Hernnadez M.D. Electronically Signed Out By ZACK TOSCANO MD/Lauren By the signature on this report, the individual or group listed as making the Final Interpretation/Diagnos is certifies that they have reviewed this case. Clinical History: Tendosynovitis right index finger Specimens Submitted As: A: VOLAR FINGER RIGHT SECOND DIGIT Other Case Numbers [id number] Gross Description: Received in formalin, labeled with the patient's name and hospital number and volar finger right second digit, are 2 fragments of pale miller soft tissue measuring #1 0.7 x 0.3 x 0.1 cm and #2 0.4 x 0.2 x 0.1 cm. The specimen is inked. The specimen is submitted in toto in one cassette. EXL exl/12/29/2018 Normal [facility] Comment on above: Performed By: #### U HCS #### [facility] Surgical Pathology Department [address] [facility] [address] Vital Signs Date Time Vital Sign Value Performing Clinician Facility 02-28-2025 11:22-0400 Body mass index (BMI) [Ratio] 34.02 kg/m2 Joan Talley APRN.CANDY PACKER Work Phone: [facility] 02-28-2025 11:22-0400 Body weight 86 kg Joan Talley APRN.CANDY PACKER Work Phone: [facility] 02-28-2025 11:22-0400 Diastolic blood pressure 96 mm[Hg] Joan Talley APRN.CANDY PACKER Work Phone: [facility] 02-28-2025 11:22-0400 Heart rate 83 /min Joan Talley STOCK CONTROL CLERK.CANDY PACKER Work Phone: [facility] 02-28-2025 11:22-0400 Systolic blood pressure 145 mm[Hg] Joan Talley APRN.CANDY PACKER Work Phone: [facility] 11-01-2024 13:46-0500 Body mass index (BMI) [Ratio] 33.27 kg/m2 Krislyn Aberegg PA Work Phone: [facility] 11-01-2024 13:46-0500 Body temperature 98.01 [degF] Krislyn Aberegg PA Work Phone: [facility] 11-01-2024 13:46-0500 Body weight 84.1 kg Krislyn Aberegg PA Work Phone: [facility] 11-01-2024 13:46-0500 Diastolic blood pressure 86 mm[Hg] Krislyn Aberegg PA Work Phone: [facility] 11-01-2024 13:46-0500 Heart rate 68 /min Krislyn Aberegg PA Work Phone: [facility] 11-01-2024 13:46-0500 Respiratory rate 18 /min Krislyn Aberegg PA Work Phone: [facility] 11-01-2024 13:46-0500 SaO2% (BldA) [Mass fraction] 95 % Krislyn Aberegg PA Work Phone: [facility] 11-01-2024 13:46-0500 Systolic blood pressure 148 mm[Hg] Ramseszinabessy Tobiasangelica MARTIN Work Phone: [facility] 08-04-2024 11:56-0400 Body mass index (BMI) [Ratio] 31.17 kg/m2 Nnamdi Macdonald APRN.CANDY PACKER Work Phone: [facility] 08-04-2024 11:56-0400 Body temperature 97.81 [degF] Nnamdi Macdonald APRN.CANDY PACKER Work Phone: [facility] 08-04-2024 11:56-0400 Body weight 78.8 kg Nnamdi Macdonald APRN.CANDY PACKER Work Phone: [facility] 08-04-2024 11:56-0400 Diastolic blood pressure 78 mm[Hg] Nnamdi Macdonald APRN.CANDY PACKER Work Phone: [facility] 08-04-2024 11:56-0400 Heart rate 71 /min Nnamdi Macdonald APRN.CANDY PACKER Work Phone: [facility] 08-04-2024 11:56-0400 Respiratory rate 18 /min Nnamdi Macdonald APRN.CANDY PACKER Work Phone: [facility] 08-04-2024 11:56-0400 SaO2% (BldA) [Mass fraction] 99 % Nnamdi Macdonald APRN.CANDY PACKER Work Phone: [facility] 08-04-2024 11:56-0400 Systolic blood pressure 114 mm[Hg] Nnamdi Macdonald APRN.CANDY PACKER Work Phone: [facility] 03-21-2024 10:54-0400 Body mass index (BMI) [Ratio] 32.2 kg/m2 Mima Royal APRN.CANDY PACKER Work Phone: [facility] 03-21-2024 10:54-0400 Body temperature 97 [degF] Mima Royal APRN.CANDY PACKER Work Phone: [facility] 03-21-2024 10:54-0400 Body weight 81.4 kg Mima Royal STOCK CONTROL CLERK.CANDY PACKER Work Phone: [facility] 03-21-2024 10:54-0400 Diastolic blood pressure 66 mm[Hg] Mima Royal STOCK CONTROL CLERK.CANDY PACKER Work Phone: [facility] 03-21-2024 10:54-0400 Heart rate 74 /min Mima Royal STOCK CONTROL CLERK.CANDY PACKER Work Phone: [facility] 03-21-2024 10:54-0400 Respiratory rate 16 /min Mima Royal STOCK CONTROL CLERK.CANDY PACKER Work Phone: [facility] 03-21-2024 10:54-0400 SaO2% (BldA) [Mass fraction] 96 % Mima Royal STOCK CONTROL CLERK.CANDY PACKER Work Phone: [facility] 03-21-2024 10:54-0400 Systolic blood pressure 122 mm[Hg] Mima Royal STOCK CONTROL CLERK.CANDY PACKER Work Phone: [facility] 03-16-2024 12:37-0400 Body height 159 cm Farzana Llamas PA-C Work Phone: [facility] 03-16-2024 12:37-0400 Body mass index (BMI) [Ratio] 33.05 kg/m2 Farzana Llamas PA-C Work Phone: [facility] 03-16-2024 12:37-0400 Body weight 83.55 kg Farzana Llamas PA-C Work Phone: [facility] 03-16-2024 12:37-0400 Diastolic blood pressure 60 mm[Hg] Farzana Llamas PA-C Work Phone: [facility] 03-16-2024 12:37-0400 Heart rate 88 /min Farzana Llamas PA-C Work Phone: [facility] 03-16-2024 12:37-0400 Respiratory rate 16 /min Farzana Llamas PA-C Work Phone: [facility] 03-16-2024 12:37-0400 SaO2% (BldA) [Mass fraction] 97 % Farzana Llamas PA-C Work Phone: [facility] 03-16-2024 12:37-0400 Systolic blood pressure 112 mm[Hg] Farzana Llamas PA-C Work Phone: [facility] 02-29-2024 10:01-0400 Body temperature 97.81 [degF] Mima Royal STOCK CONTROL CLERK.CANDY PACKER Work Phone: [facility] 02-29-2024 10:01-0400 Body weight 85.9 kg Mima Royal STOCK CONTROL CLERK.CANDY PACKER Work Phone: [facility] 02-29-2024 10:01-0400 Diastolic blood pressure 84 mm[Hg] Mima Royal STOCK CONTROL CLERK.CANDY PACKER Work Phone: [facility] 02-29-2024 10:01-0400 Heart rate 69 /min Mima Royal STOCK CONTROL CLERK.CANDY PACKER Work Phone: [facility] 02-29-2024 10:01-0400 Respiratory rate 18 /min Mima Royal STOCK CONTROL CLERK.CANDY PACKER Work Phone: [facility] 02-29-2024 10:01-0400 SaO2% (BldA) [Mass fraction] 96 % Mima Royal STOCK CONTROL CLERK.CANDY PACKER Work Phone: [facility] 02-29-2024 10:01-0400 Systolic blood pressure 146 mm[Hg] Mima Royal STOCK CONTROL CLERK.CANDY PACKER Work Phone: [facility] 04-04-2023 09:51-0400 Body temperature 96.8 [degF] Beverly Praisler-Wood STOCK CONTROL CLERK.CANDY PACKER Work Phone: [facility] 04-04-2023 09:51-0400 Body weight 69.4 kg Beverly Praisler-Wood STOCK CONTROL CLERK.CANDY PACKER Work Phone: [facility] 04-04-2023 09:51-0400 Diastolic blood pressure 88 mm[Hg] Beverly Praisler-Wood STOCK CONTROL CLERK.CANDY PACKER Work Phone: [facility] 04-04-2023 09:51-0400 Heart rate 67 /min Beverly Praisler-Wood STOCK CONTROL CLERK.CANDY PACKER Work Phone: [facility] 04-04-2023 09:51-0400 Respiratory rate 20 /min Beverly Praisler-Wood STOCK CONTROL CLERK.CANDY PACKER Work Phone: [facility] 04-04-2023 09:51-0400 SaO2% (BldA) [Mass fraction] 98 % Beverly Praisler-Wood STOCK CONTROL CLERK.CANDY PACKER Work Phone: [facility] 04-04-2023 09:51-0400 Systolic blood pressure 138 mm[Hg] Beverly Praisler-Wood STOCK CONTROL CLERK.CANDY PACKER Work Phone: [facility] 03-23-2023 19:24-0400 Body temperature 96.3 [degF] Krislyn Aberegg PA Work Phone: [facility] 03-23-2023 19:24-0400 Body weight 68.58 kg Krislyn Aberegg PA Work Phone: [facility] 03-23-2023 19:24-0400 Diastolic blood pressure 80 mm[Hg] Krislyn Aberegg PA Work Phone: [facility] 03-23-2023 19:24-0400 Heart rate 78 /min Krislyn Aberegg PA Work Phone: [facility] 03-23-2023 19:24-0400 Respiratory rate 21 /min Krislyn Aberegg PA Work Phone: [facility] 03-23-2023 19:24-0400 SaO2% (BldA) [Mass fraction] 99 % Krislyn Aberegg PA Work Phone: [facility] 03-23-2023 19:24-0400 Systolic blood pressure 118 mm[Hg] Krislyn Aberegg PA Work Phone: [facility] 12-15-2022 09:35-0500 Body weight 67.04 kg Farzana Llamas PA-C Work Phone: [facility] 12-15-2022 09:35-0500 Diastolic blood pressure 86 mm[Hg] Farzana Llamas PA-C Work Phone: [facility] 12-15-2022 09:35-0500 Heart rate 76 /min Farzana Llamas PA-C Work Phone: [facility] 12-15-2022 09:35-0500 Respiratory rate 18 /min Farzana Llamas PA-C Work Phone: [facility] 12-15-2022 09:35-0500 SaO2% (BldA) [Mass fraction] 97 % Farzana Llamas PA-C Work Phone: [facility] 12-15-2022 09:35-0500 Systolic blood pressure 112 mm[Hg] Farzana Llamas PA-C Work Phone: [facility] 10-01-2022 14:30-0500 Body weight 72.12 kg Lou Yu APRN.CANDY PACKER Work Phone: [facility] 10-01-2022 14:30-0500 Diastolic blood pressure 64 mm[Hg] Lou Yu APRN.CANDY PACKER Work Phone: [facility] 10-01-2022 14:30-0500 Systolic blood pressure 108 mm[Hg] Lou Yu APRN.CANDY PACKER Work Phone: [facility] 10-01-2022 09:48-0500 Body height 162.6 cm ARJUN SLAUGHTER MD [facility] 10-01-2022 09:48-0500 Body temperature 97.52 [degF] ARJUN SLAUGHTER MD [facility] 10-01-2022 09:48-0500 Body weight 72.7 kg ARJUN SLAUGHTER MD [facility] 10-01-2022 09:48-0500 Diastolic blood pressure 68 mm[Hg] ARJUN SLAUGHTER MD [facility] 10-01-2022 09:48-0500 Heart rate 69 /min ARJUN SLAUGHTER MD [facility] 10-01-2022 09:48-0500 Respiratory rate 22 /min ARJUN SLAUGHTER MD [facility] 10-01-2022 09:48-0500 Systolic blood pressure 117 mm[Hg] ARJUN SLAUGHTER MD [facility] 09-06-2022 12:11-0400 Body height 162.56 cm [facility] Work Phone: 09-06-2022 12:11-0400 Body mass index (BMI) [Ratio] 28 kg/m2 [facility] Work Phone: 09-06-2022 12:11-0400 Body temperature 96.9 [degF] [facility] Work Phone: 09-06-2022 12:11-0400 Body weight 74.1 kg [facility] Work Phone: 09-06-2022 12:11-0400 Diastolic blood pressure 86 mm[Hg] [facility] Work Phone: 09-06-2022 12:11-0400 Heart rate 69 /min [facility] Work Phone: 09-06-2022 12:11-0400 Respiratory rate 17 /min [facility] Work Phone: 09-06-2022 12:11-0400 SaO2% (BldA) [Mass fraction] 97 % [facility] Work Phone: 09-06-2022 12:11-0400 Systolic blood pressure 126 mm[Hg] [facility] Work Phone: 08-24-2022 11:56-0400 Body height 162.56 cm [facility] Work Phone: 08-24-2022 11:56-0400 Body mass index (BMI) [Ratio] 27.2 kg/m2 [facility] Work Phone: 08-24-2022 11:56-0400 Body temperature 97.2 [degF] [facility] Work Phone: 08-24-2022 11:56-0400 Body weight 71.93 kg [facility] Work Phone: 08-24-2022 11:56-0400 Diastolic blood pressure 77 mm[Hg] [facility] Work Phone: 08-24-2022 11:56-0400 Heart rate 60 /min [facility] Work Phone: 08-24-2022 11:56-0400 Respiratory rate 18 /min [facility] Work Phone: 08-24-2022 11:56-0400 SaO2% (BldA) [Mass fraction] 100 % [facility] Work Phone: 08-24-2022 11:56-0400 Systolic blood pressure 114 mm[Hg] [facility] Work Phone: 07-25-2022 09:01-0400 Body weight 73.94 kg Farzana MARTIN-C Work Phone: [facility] 07-25-2022 09:01-0400 Diastolic blood pressure 70 mm[Hg] Farzana Llamas PA-C Work Phone: [facility] 07-25-2022 09:01-0400 Heart rate 68 /min Farzana Llamas PA-C Work Phone: [facility] 07-25-2022 09:01-0400 Respiratory rate 18 /min Farzana Llamas PA-C Work Phone: [facility] 07-25-2022 09:01-0400 SaO2% (BldA) [Mass fraction] 94 % Farzana Llamas PA-C Work Phone: [facility] 07-25-2022 09:01-0400 Systolic blood pressure 102 mm[Hg] Farzana Llamas PA-C Work Phone: [facility] 06-25-2022 07:28-0400 Body temperature 97.39 [degF] Farzana Llamas PA-C Work Phone: [facility] 06-25-2022 07:28-0400 Body weight 76.66 kg Farzana Llamas PA-C Work Phone: [facility] 06-25-2022 07:28-0400 Diastolic blood pressure 72 mm[Hg] Farzana Llamas PA-C Work Phone: [facility] 06-25-2022 07:28-0400 Heart rate 88 /min Farzana Llamas PA-C Work Phone: [facility] 06-25-2022 07:28-0400 Respiratory rate 18 /min Farzana Llamas PA-C Work Phone: [facility] 06-25-2022 07:28-0400 Systolic blood pressure 100 mm[Hg] Farzana Llamas PA-C Work Phone: [facility] 06-18-2022 11:50-0400 Diastolic blood pressure 68 mm[Hg] [facility] Work Phone: 06-18-2022 11:50-0400 Heart rate 71 /min [facility] Work Phone: 06-18-2022 11:50-0400 Respiratory rate 15 /min [facility] Work Phone: 06-18-2022 11:50-0400 SaO2% (BldA) [Mass fraction] 98 % [facility] Work Phone: 06-18-2022 11:50-0400 Systolic blood pressure 134 mm[Hg] [facility] Work Phone: 06-18-2022 10:25-0400 Body height 162.56 cm [facility] Work Phone: 06-18-2022 10:25-0400 Body mass index (BMI) [Ratio] 29.5 kg/m2 [facility] Work Phone: 06-18-2022 10:25-0400 Body temperature 97.9 [degF] [facility] Work Phone: 06-18-2022 10:25-0400 Body weight 78.01 kg [facility] Work Phone: 04-16-2022 13:44-0400 Body temperature 98.1 [degF] Farzana Llamas PA-C Work Phone: [facility] 04-16-2022 13:44-0400 Body weight 78.02 kg Farzana Llamas PA-C Work Phone: [facility] 04-16-2022 13:44-0400 Diastolic blood pressure 60 mm[Hg] Farzana Llamas PA-C Work Phone: [facility] 04-16-2022 13:44-0400 Heart rate 60 /min Farzana Llamas PA-C Work Phone: [facility] 04-16-2022 13:44-0400 Respiratory rate 16 /min Farzana Llamas PA-C Work Phone: [facility] 04-16-2022 13:44-0400 Systolic blood pressure 82 mm[Hg] Farzana Llamas PA-C Work Phone: [facility] 03-06-2022 12:16-0400 Heart rate 58 /min Dr. Earnest Dueñas Work Phone: [facility] Work Phone: 03-06-2022 12:16-0400 Respiratory rate 16 /min Dr. Earnest Dueñas Work Phone: [facility] Work Phone: 03-06-2022 12:16-0400 SaO2% (BldA) [Mass fraction] 97 % Dr. Earnest Dueñas Work Phone: [facility] Work Phone: 03-06-2022 10:17-0400 Body height 162.[address] Earnest Dueñas Work Phone: [facility] Work Phone: 03-06-2022 10:17-0400 Body mass index (BMI) [Ratio] 29.2 kg/m2 Dr. Earnest Dueñas Work Phone: [facility] Work Phone: 03-06-2022 10:17-0400 Body temperature 96.7 [degF] Dr. Earnest Dueñas Work Phone: [facility] Work Phone: 03-06-2022 10:17-0400 Body weight 77.[address] Earnest Dueñas Work Phone: [facility] Work Phone: 03-06-2022 10:17-0400 Diastolic blood pressure 75 mm[Hg] Dr. Earnest Dueñas Work Phone: [facility] Work Phone: 03-06-2022 10:17-0400 Systolic blood pressure 130 mm[Hg] Dr. Earnest Dueñas Work Phone: [facility] Work Phone: 03-06-2022 09:41-0400 Body weight 79.65 kg Earnest Ramirez APRN.CANDY PACKER Work Phone: [facility] 03-06-2022 09:41-0400 Diastolic blood pressure 78 mm[Hg] Earnest Ramirez STOCK CONTROL CLERK.CANDY PACKER Work Phone: [facility] 03-06-2022 09:41-0400 Heart rate 64 /min Earnest Ramirez STOCK CONTROL CLERK.CANDY PACKER Work Phone: [facility] [facility] 03-06-2022 09:41-0400 Respiratory rate 20 /min Earnest Ramirez STOCK CONTROL CLERK.CANDY PACKER Work Phone: [facility] 03-06-2022 09:41-0400 SaO2% (BldA) [Mass fraction] 98 % Earnest Ramirez STOCK CONTROL CLERK.CANDY PACKER Work Phone: [facility] 03-06-2022 09:41-0400 Systolic blood pressure 120 mm[Hg] Earnest Ramirez STOCK CONTROL CLERK.CANDY PACKER Work Phone: [facility] 01-28-2022 09:00-0500 Body mass index (BMI) [Ratio] 30.4 kg/m2 Dr. Earnest Dueñas Work Phone: [facility] Work Phone: 01-28-2022 09:00-0500 Body temperature 97.4 [degF] Dr. Earnest Dueñas Work Phone: [facility] Work Phone: 01-28-2022 09:00-0500 Body weight 80.[address] Earnest Dueñas Work Phone: [facility] Work Phone: 01-28-2022 09:00-0500 Diastolic blood pressure 83 mm[Hg] Dr. Earnest Dueñas Work Phone: [facility] Work Phone: 01-28-2022 09:00-0500 Heart rate 60 /min Dr. Earnest Dueñas Work Phone: [facility] Work Phone: 01-28-2022 09:00-0500 Respiratory rate 17 /min Dr. Earnest Dueñas Work Phone: [facility] Work Phone: 01-28-2022 09:00-0500 SaO2% (BldA) [Mass fraction] 99 % Dr. Earnest Dueñas Work Phone: [facility] Work Phone: 01-28-2022 09:00-0500 Systolic blood pressure 132 mm[Hg] Dr. Earnest Dueñas Work Phone: [facility] Work Phone: 01-26-2022 22:21-0500 Diastolic blood pressure 62 mm[Hg] Dr. Earnest Dueñas Work Phone: [facility] Work Phone: 01-26-2022 22:21-0500 Heart rate 68 /min Dr. Earnest Dueñas Work Phone: [facility] Work Phone: 01-26-2022 22:21-0500 Respiratory rate 16 /min Dr. Earnest Dueñas Work Phone: [facility] Work Phone: 01-26-2022 22:21-0500 SaO2% (BldA) [Mass fraction] 97 % Dr. Earnest Dueñas Work Phone: [facility] Work Phone: 01-26-2022 22:21-0500 Systolic blood pressure 110 mm[Hg] Dr. Earnest Dueñas Work Phone: [facility] Work Phone: 01-26-2022 16:34-0500 Body mass index (BMI) [Ratio] 30.4 kg/m2 Dr. Earnest Dueñas Work Phone: [facility] Work Phone: 01-26-2022 16:34-0500 Body temperature 96.8 [degF] Dr. Earnest Dueñas Work Phone: [facility] Work Phone: 01-26-2022 16:34-0500 Body weight 80.[address] Earnest Dueñas Work Phone: [facility] Work Phone: 01-22-2022 14:23-0500 Body temperature 98.4 [degF] Dr. Earnest Dueñas Work Phone: [facility] Work Phone: 01-22-2022 14:23-0500 Diastolic blood pressure 78 mm[Hg] Dr. Earnest Dueñas Work Phone: [facility] Work Phone: 01-22-2022 14:23-0500 Heart rate 78 /min Dr. Earnest Dueñas Work Phone: [facility] Work Phone: 01-22-2022 14:23-0500 Respiratory rate 14 /min Dr. Earnest Dueñas Work Phone: [facility] Work Phone: 01-22-2022 14:23-0500 SaO2% (BldA) [Mass fraction] 98 % Dr. Earnest Dueñas Work Phone: [facility] Work Phone: 01-22-2022 14:23-0500 Systolic blood pressure 125 mm[Hg] Dr. Earnest Dueñas Work Phone: [facility] Work Phone: 01-22-2022 11:07-0500 Body mass index (BMI) [Ratio] 29.2 kg/m2 Dr. Earnest Dueñas Work Phone: [facility] Work Phone: 01-22-2022 11:07-0500 Body weight 77.[address] Earnest Dueñas Work Phone: [facility] Work Phone: Encounters Encounter Date Encounter Type Care Provider Facility Start: 03-31-2025 End: 03-31-2025 Follow-up encounter Farzana Llamas PA-C Work Phone: [facility] Start: 03-30-2025 ambulatory [facility] Start: 03-30-2025 End: 03-30-2025 Subsequent hospital visit by physician Screen Mammo [facility] Comment on above: Encounter for screen ing mammogram for breast cancer [Z12.31] Start: 03-14-2025 End: 03-14-2025 Chart abstracting Shira Macdonald MA [facility] Comment on above: Hospital F/U ([facility] - Discharge ) Start: 03-07-2025 End: 03-07-2025 Chart abstracting Shira Macdonald MA [facility] Comment on above: ER F/U ([facility] /) Start: 03-05-2025 ambulatory Earnest Dueñas [place] Start: 03-05-2025 End: 03-08-2025 Evaluation and management of inpatient Earnest Dueñas Facility:[facility] Start: 03-02-2025 End: 03-02-2025 Follow-up encounter Joan Talley APRN.CNP Work Phone: [facility] [place] Start: 02-28-2025 End: 02-28-2025 ambulatory JOAN TALLEY [facility] Start: 02-28-2025 End: 02-28-2025 Patient encounter procedure Joan Talley APRN.CNP Work Phone: [facility] [place] Comment on above: Well adult exam (Emily bhavana Dx); Vitamin D deficiency; Low serum vitamin B12; Medication management; Acquired hypothyroidism; Screening for diabetes mellitus; Moderate episode of recurrent major depressive disorder (HCC); Migraine with aura and without status migrainosus, not intractable; History of hepatitis C; Gastroesophageal reflux disease without esophagitis; Insomnia, unspecified type; Left hip pain; Encounter for screening mammogram for breast cancer; Encounter for screening for lung cancer Start: 02-28-2025 End: 02-28-2025 Patient encounter status Joan Talley APRN.CNP Work Phone: [facility] Start: 02-22-2025 End: 02-23-2025 Telephone encounter Earnest Dueñas MD Work Phone: Family [facility] [place] Comment on above: Patient Update Start: 02-21-2025 End: 02-21-2025 ambulatory EARNEST DUEÑAS Facility[facility] Start: 02-16-2025 End: 02-16-2025 ambulatory EARNEST DUEÑAS Facility[facility] Start: 02-08-2025 End: 02-08-2025 Follow-up encounter Farzana Llamas PA-C Work Phone: [facility] [place] Start: 01-23-2025 End: 02-03-2025 ambulatory Amita DiLauro Facility:[facility] Start: 12-26-2024 End: 01-20-2025 ambulatory Amita DiLauro Facility:[facility] Start: 12-02-2024 End: 12-23-2024 ambulatory Amita DiLauro Facility:[facility] Start: 11-11-2024 End: 11-11-2024 Chart abstracting Earnest Dueñas MD Work Phone: [facility] Comment on above: ER Discharge Summary (H&P) Start: 11-10-2024 ambulatory Kayli Slater Facility:[facility] Start: 11-10-2024 End: 11-12-2024 Evaluation and management of inpatient Kayli Slater Facility:[facility] Start: 11-01-2024 End: 11-01-2024 ambulatory EARNEST DUEÑAS Facility[facility] Start: 11-01-2024 End: 11-01-2024 Patient encounter procedure Jess MARTIN Work Phone: [facility] Comment on above: Sinobronchitis (Prim kerri Dx) Start: 10-06-2024 End: 10-06-2024 Telephone encounter Farzana Llamas PA-C Work Phone: [facility] Comment on above: Appointment Start: 09-23-2024 End: 10-14-2024 ambulatory Amita DiLauro Facility:[facility] Start: 08-23-2024 End: 09-22-2024 ambulatory Amita DiLauro Facility:[facility] Start: 08-18-2024 End: 08-18-2024 Chart abstracting Earnest Dueñas MD Work Phone: [facility] Start: 08-17-2024 End: 08-17-2024 ambulatory Amita DiLauro Facility:[facility] Start: 08-15-2024 End: 08-22-2024 ambulatory Amita DiLauro Facility:[facility] Start: 08-08-2024 End: 08-08-2024 Chart abstracting Earnest Dueñas MD Work Phone: [facility] Comment on above: ER Discharge Summary Start: 08-05-2024 End: 08-06-2024 Telephone encounter Vivi Ashraf APRN.CANDY PACKER Work Phone: [facility] Comment on above: Results Start: 08-05-2024 End: 08-05-2024 Emergency department patient visit Earnest Dueñas Facility:[facility] Start: 08-04-2024 End: 08-04-2024 Patient encounter procedure Nnamdi Macdonald APRN.CANDY PACKER Work Phone: [facility] Comment on above: Dysuria (Primary Dx) ; Recurrent UTI (urinary tract infection) Start: 08-04-2024 End: 08-04-2024 ambulatory EARNEST DUEÑAS [facility] Start: 07-19-2024 End: 07-19-2024 Chart abstracting Shira Macdonald MA [facility] Start: 07-14-2024 End: 07-14-2024 Chart abstracting Earnest Dueñas MD Work Phone: [facility] Comment on above: ER Discharge Summary Start: 07-13-2024 ambulatory Earnest Dueñas [place] Start: 07-13-2024 End: 07-16-2024 Evaluation and management of inpatient Earnest Dueñas Facility:[facility] Start: 05-20-2024 Patient encounter procedure Earnest Dueñas MD Work Phone: [facility] Start: 04-15-2024 Telephone encounter Farzana summers PA-C Work Phone: [facility] Comment on above: Appointment Start: 03-29-2024 Documentation procedure Mammog jessica Coordinator [facility] Department Start: 03-29-2024 Letter encounter Mammography Coordinator [facility] Start: 03-29-2024 Telephone encounter Earnest Dueñas MD Work Phone: [facility] Comment on above: Results Start: 03-28-2024 End: 03-28-2024 Subsequent hospital visit by physician Screen Mammo [facility] Comment on above: Encounter for screen ing for malignant neoplasm of breast, unspecified screening modality [Z12.39] Start: 03-23-2024 Telephone encounter Farzana summers PA-C Work Phone: [facility] Comment on above: Results Start: 03-21-2024 End: 03-21-2024 Patient encounter procedure Mima Royal STOCK CONTROL CLERK.CANDY PACKER Work Phone: [facility] Comment on above: Cellulitis of right upper arm (Primary Dx) Start: 03-17-2024 Telephone encounter Farzana summers PA-C Work Phone: [facility] Comment on above: Results Start: 03-16-2024 Patient encounter status Florentino thanh WASHBURNC Work Phone: [facility] Start: 03-16-2024 End: 03-16-2024 Subsequent hospital visit by physician Kaci [facility] Work Phone: Radiology Comment on above: Left hip pain [M25.5 52] Start: 03-16-2024 End: 03-16-2024 Patient encounter procedure Farzana Llamas PA-C Work Phone: [facility] Comment on above: Well adult exam ([facility] Dx); Alcohol dependence in remission (HCC); Moderate episode of recurrent major depressive disorder (HCC); Drug addiction (HCC); Migraine with aura and without status migrainosus, not intractable; Smoker; Actinic keratosis; Acquired hypothyroidism; Screening for diabetes mellitus; Encounter for lipid screening for cardiovascular disease; Low serum vitamin B12; Anxiety; Encounter for immunization; Screening for colon cancer; Encounter for screening for malignant neoplasm of breast, unspecified screening modality; Left hip pain Start: 02-29-2024 Telephone encounter Mima coburn STOCK CONTROL CLERK.CANDY PACKER Work Phone: [facility] Comment on above: Results Start: 02-29-2024 End: 02-29-2024 Subsequent hospital visit by physician Kaci [facility] Work Phone: Radiology Comment on above: URI, acute [J06.9] Start: 02-29-2024 End: 02-29-2024 Patient encounter procedure Mima Royal STOCK CONTROL CLERK.CANDY PACKER Work Phone: [facility] Comment on above: URI, acute (Primary Dx); Acute cough; Conjunctivitis of both eyes, unspecified conjunctivitis type Start: 07-31-2023 Chart abstracting Earnest aparicio MD Work Phone: [facility] Comment on above: ext document (Uro Pr ocedure) Start: 07-29-2023 ambulatory Earnest chanel MD Work Phone: [facility] [place] Start: 07-28-2023 Chart abstracting Earnest aparicio MD Work Phone: [facility] Comment on above: Outside Fulk-Rqt-NEM Ordered Start: 04-05-2023 Telephone encounter Earnest Dueñas MD Work Phone: [facility] Comment on above: Results Start: 04-04-2023 End: 04-04-2023 Patient encounter procedure Beverly Kovacs APRN.CANDY PACKER Work Phone: [facility] Comment on above: Sore throat (Primary Dx); Flu-like symptoms; Nausea and vomiting, unspecified vomiting type Start: 03-24-2023 Telephone encounter Fabina mahoney APRN.CANDY PACKER Work Phone: [facility] Comment on above: Results Start: 03-23-2023 End: 03-23-2023 Patient encounter procedure Jess MARTIN Work Phone: [facility] Comment on above: URI, acute (Primary Dx); Sore throat Start: 01-09-2023 Chart abstracting Earnest aparicio MD Work Phone: [facility] [place] Comment on above: Consult Start: 12-16-2022 Telephone encounter Farzana summers PA-C Work Phone: [facility] Comment on above: Results Start: 12-15-2022 End: 12-15-2022 Patient encounter procedure Farzana Llamas PA-C Work Phone: [facility] Comment on above: EDER (generalized anx iety disorder) (Primary Dx); Moderate episode of recurrent major depressive disorder (HCC); Weight loss; Screening for diabetes mellitus; Encounter for lipid screening for cardiovascular disease Start: 10-01-2022 End: 10-01-2022 Patient encounter procedure Lou Yu APRN.CNP Work Phone: OB/Gynecology Comment on above: Cystocele, midline ( Primary Dx); Rectocele Start: 10-01-2022 End: 10-01-2022 Emergency department patient visit ARJUN SLAUGHTER MD Facility:[facility] Start: 10-01-2022 End: 10-01-2022 Emergency department patient visit ARJUN SLAUGHTER MD [facility] Start: 09-06-2022 End: 09-06-2022 Emergency department patient visit [facility] Start: 08-24-2022 End: 08-24-2022 Emergency department patient visit [facility] Start: 08-20-2022 ambulatory Earnest chanel MD Work Phone: Internal Medicine [facility] Start: 07-25-2022 End: 07-25-2022 Office outpatient visit 25 minutes Farzana Llamas PA-C Work Phone: [facility] Comment on above: Moderate episode of recurrent major depressive disorder (HCC) (Primary Dx) Start: 06-25-2022 End: 06-25-2022 Patient encounter procedure Farzana Llamas PA-C Work Phone: [facility] Comment on above: Right lower quadrant abdominal pain (Primary Dx) Start: 06-22-2022 End: 06-22-2022 Patient encounter procedure Sona Obando PA-C Work Phone: [facility] Comment on above: APPOINTMENT CANCELLE D (Primary Dx) Start: 06-18-2022 End: 06-18-2022 Emergency department patient visit [facility] Start: 04-16-2022 End: 04-16-2022 Patient encounter procedure Farzana Llamas PA-C Work Phone: [facility] Comment on above: Chest pain, unspecif ied type (Primary Dx); HERNANDEZ (dyspnea on exertion); Palpitations; Current moderate episode of major depressive disorder, unspecified whether recurrent (HCC) Start: 03-06-2022 End: 03-06-2022 Emergency department patient visit Dr. Earnest Dueñas Work Phone: [facility] Start: 03-06-2022 End: 03-06-2022 Patient encounter procedure Earnest Ramirez APRN.CANDY PACKER Work Phone: [facility] Comment on above: Right flank pain (Pr imary Dx) Start: 01-28-2022 End: 01-28-[address] Earnest Dueñas Work Phone: [facility] Start: 01-26-2022 End: 01-26-2022 Emergency department patient visit Dr. Earnest Dueñas Work Phone: [facility] Start: 01-22-2022 End: 01-22-2022 Emergency department patient visit Dr. Earnest Dueñas Work Phone: [facility] Start: 04-13-2021 End: 04-13-2021 Subsequent hospital visit by physician Xr [facility] Work Phone: Radiology Comment on above: Neck pain [M54.2] Start: 12-27-2018 Patient encounter procedure Hernesto Phan Facility:[facility] Start: 12-27-2018 End: 12-30-2018 Evaluation and management of inpatient J [facility] Start: 08-29-2016 Patient encounter status Elder Ramirez STOCK CONTROL CLERK.CANDY PACKER Work Phone: [facility] Work Phone: Procedures Date Procedure Procedure Detail Performing Clinician Start: 08-04-2024 Urnls dip stick/tabl et rgnt auto w/o microscopy Nnamdi Macdonald STOCK CONTROL CLERK.CANDY PACKER Work Phone: Start: 03-16-2024 Radex hip unilateral with pelvis 2-3 views Farzana Llamas PA-C Work Phone: Start: 03-16-2024 Lipid 1996 panel - S alison or Plasma Farzana Llamas PA-C Work Phone: Start: 02-29-2024 COVID & INFLUENZA A/ B & RSV NAAT, ROUTINE Mima Royal STOCK CONTROL CLERK.CANDY PACKER Work Phone: Start: 02-29-2024 Radiologic exam ches t 2 views Mima Royal STOCK CONTROL CLERK.CANDY PACKER Work Phone: Start: 04-04-2023 STREP A MOLECULAR (POC) Beverly Kovacs STOCK CONTROL CLERK.CANDY PACKER Work Phone: Start: 03-23-2023 COVID WITH FLUA+B, ROUTINE Krislyn P Aberegg PA Work Phone: Start: 03-23-2023 STREP A MOLECULAR (POC) Krislyn P Aberegg PA Work Phone: Start: 12-15-2022 Lipid 1996 panel - S alison or Plasma Mima Royal STOCK CONTROL CLERK.CANDY PACKER Work Phone: Start: 08-24-2022 X-ray of cervical spine Start: 03-06-2022 Urnls dip stick/tabl et rgnt auto w/o microscopy [facility] Provider Start: 01-26-2022 Computed tomography of abdomen and pelvis with intravenous contrast Dr. Earnest Dueñas Work Phone: Start: 01-22-2022 US scan of gallbladder Dr. Earnest Dueñas Work Phone: Start: 07-09-2021 Mammography Earnest bond STOCK CONTROL CLERK.CANDY PACKER Work Phone: Start: 04-13-2021 Radex spine cervical 4 or 5 views Earnest Dueñas MD Work Phone: Start: 12-27-2018 Excision of Right Mendez nd Tendon, Open Approach NA EMILIE Start: 04-18-2015 Colonoscopy Earnest bond STOCK CONTROL CLERK.CANDY PACKER Work Phone: Plan of Treatment Date Care Activity Detail Author Start: 03-16-2029 Lipid panel Lipid Screening [facility] Start: 02-29-2028 Diabetes Screening Diabetes Screenin [facility] Start: 02-17-2028 Diabetes Screening Diabetes Screenin g [facility] Start: 02-02-2028 Screening for malign ant neoplasm of colon [facility] Start: 12-15-2027 Lipid panel Lipid Screening [facility] Start: 12-15-2027 LIPID SCREEN LIPID SCREEN [facility] Start: 03-16-2027 Diabetes Screening Diabetes Screenin g [facility] Start: 07-17-2026 LIPID SCREEN LIPID SCREEN [facility] Start: 03-30-2026 Screening for malign ant neoplasm of breast Mammogram Screening [facility] Start: 02-28-2026 Annual PCP Team Dural Mechanic isauro Disease Visit Annual PCP Team Chronic Disease Visit [facility] Start: 02-28-2026 Covid-19 Vaccine ( season) Covid-19 Vaccine () [facility] Comment on above: Postponed from 07/24 (Declined at this time) Start: 02-28-2026 Shingrix Vaccine (2 of 2) Shingrix Vaccine (2 of 2) [facility] Comment on above: Postponed from 05/11 (Declined at this time) Start: 12-15-2025 DIABETES SCREEN DIABETES SCREEN [facility] Start: 12-15-2025 Diabetes Screening Diabetes Screenin g [facility] Start: 09-05-2025 End: 09-05-2025 Patient encounter procedure 09/05/2025 10:20 AM EDT Office Visit [facility] [address] [place] [address] Earnest Dueñas MD [address] [place] [address] [id number] physical [facility] Comment on above: physical Start: 07-24-2025 Influenza vaccination Influenz a Vaccine (Season Ended) [facility] Start: 06-01-2025 End: 08-31-2025 25-hydroxyvitamin D3 [Mass/volume] in Serum or Plasma VITAMIN D 25 HYDROXY Lab Routine Vitamin D deficiency Expected: 06/01/2025, Expires: 08/31/2025 [facility] Work Phone: Comment on above: Expected: 06/01/2025 , Expires: 08/31/2025 Start: 05-22-2025 Influenza vaccination Influenza Vacc ine (#1) [facility] Comment on above: Postponed from 07/24 (Declined at this time) Start: 04-27-2025 End: 04-27-2025 Patient encounter procedure 04/27/2025 11:30 AM EDT Office Visit Pulmonary Medicine [address] [place] [address] Nicolle Carolina APRN.CANDY PACKER [address] [place] [address] Encounter for screening for lung cancer [Z12.2] Pulmonary Medicine Comment on above: Encounter for screen ing for lung cancer [Z12.2] Start: 03-30-2025 End: 03-30-2025 Patient encounter procedure 03/30/2025 11:10 AM EDT Appointment Mammogram [address] [place] [address] Encounter for screening mammogram for breast cancer [Z12.31] Mammogram Comment on above: Encounter for screen ing mammogram for breast cancer [Z12.31] Start: 03-28-2025 Screening for malign ant neoplasm of breast Mammogram Screening [facility] Start: 03-16-2025 Annual PCP Team Dural Mechanic isauro Disease Visit Annual PCP Team Chronic Disease Visit [facility] Start: 03-16-2025 Covid-19 Vaccine ( season) Covid-19 Vaccine ( season) [facility] Comment on above: Postponed from 07/24 (Declined at this time) Start: 03-16-2025 Urine microalbumin profile DTaP,Tdap,Td Vaccine (1 - Tdap) [facility] Comment on above: Postponed from 09/30 (Declined at this time) Start: 03-16-2025 End: 03-16-2025 Patient encounter procedure 03/16/2025 10:30 AM EDT Office Visit Pulmonary Medicine [address] [place] [address] Nicolle Carolina APRN.CANDY PACKER [address] [place] [address] Encounter for screening for lung cancer [Z12.2] Pulmonary Medicine Comment on above: Encounter for screen ing for lung cancer [Z12.2] Start: 03-02-2025 End: 03-02-2025 Patient encounter procedure 03/02/2025 12:50 PM EDT Appointment Mammogram [address] [place] [address] Encounter for screening mammogram for breast cancer [Z12.31] Mammogram Comment on above: Encounter for screen ing mammogram for breast cancer [Z12.31] Start: 02-28-2025 End: 05-30-2025 25-hydroxyvitamin D3 [Mass/volume] in Serum or Plasma [facility] Comment on above: Expected: 02/28/2025 , Expires: 05/30/2025 Start: 02-28-2025 End: 05-30-2025 Cobalamin (Vitamin B12) [Mass/volume] in Serum or Plasma [facility] Comment on above: Expected: 02/28/2025 , Expires: 05/30/2025 Start: 02-28-2025 End: 05-30-2025 Hemoglobin A1c in Blood [facility] Comment on above: Expected: 02/28/2025 , Expires: 05/30/2025 Start: 02-28-2025 End: 05-30-2025 Magnesium [Mass/volume] in Serum or Plasma [facility] Comment on above: Expected: 02/28/2025 , Expires: 05/30/2025 Start: 02-28-2025 End: 05-30-2025 Thyrotropin [Units/volume] in Serum or Plasma [facility] Work Phone: Comment on above: Expected: 02/28/2025 , Expires: 05/30/2025 Start: 02-28-2025 End: 02-28-2025 Patient encounter procedure 02/28/2025 11:20 AM EDT Office Visit [facility] [place] [address] [place] [id number] Joan Talley APRN.[facility] [address], [place] [id number] [facility] Comment on above: [facility] Start: 07-24-2024 Covid-19 Vaccine ( season) Covid-19 Vaccine () [facility] Start: 07-24-2024 Covid-19 Vaccine () Covid-19 Vaccine () [facility] Start: 07-24-2024 Influenza vaccination C [facility] Start: 07-17-2024 DIABETES SCREEN DIABETES SCREEN [facility] Start: 05-17-2024 End: 08-16-2024 25-hydroxyvitamin D3 [Mass/volume] in Serum or Plasma VITAMIN D 25 HYDROXY Lab Routine Vitamin D deficiency Expected: 05/17/2024, Expires: 08/16/2024 [facility] Work Phone: Comment on above: Expected: 05/17/2024 , Expires: 08/16/2024 Start: 05-15-2024 Hzv zoster vacc recombinant adjuvanted im njx ZOSTER VACCINE, RECOMBINANT (SHINGRIX) Immunization/Injection Routine Encounter for immunization Expected: 05/15/2024 [facility] Comment on above: Expected: 05/15/2024 Start: 05-11-2024 Shingrix Vaccine (2 of 2) Shingrix Vaccine (2 of 2) [facility] Start: 04-13-2024 End: 04-13-2024 Patient encounter procedure 04/13/2024 10:20 AM EDT Office Visit [facility] [address] [place] [id number] Farzana Llamas PA-C [address] [place] [id number] 4 wk follow up [facility] Comment on above: 4 wk follow up Start: 03-28-2024 End: 03-28-2024 Patient encounter procedure 03/28/2024 12:50 PM EDT Appointment Mammogram [address] [place] [id number] Encounter for screening for malignant neoplasm of breast, unspecified screening ... Mammogram Comment on above: Encounter for screen ing for malignant neoplasm of breast, unspecified screening ... Start: 03-21-2024 End: 03-21-2024 Patient encounter procedure 03/21/2024 11:10 AM EDT Appointment Mammogram [address] [address] Encounter for screening for malignant neoplasm of breast, unspecified screening modality [Z12.39] Mammogram Comment on above: Encounter for screen ing for malignant neoplasm of breast, unspecified screening modality [Z12.39] Start: 03-16-2024 End: 06-15-2024 25-hydroxyvitamin D3 [Mass/volume] in Serum or Plasma [facility] Comment on above: Expected: 03/16/2024 , Expires: 06/15/2024 Start: 03-16-2024 End: 06-15-2024 Cobalamin (Vitamin B12) [Mass/volume] in Serum or Plasma [facility] Comment on above: Expected: 03/16/2024 , Expires: 06/15/2024 Start: 03-16-2024 End: 06-15-2024 Comprehensive metabolic 2000 panel - Serum or Plasma [facility] Comment on above: Expected: 03/16/2024 , Expires: 06/15/2024 Start: 03-16-2024 End: 06-15-2024 Hemoglobin A1c in Blood [facility] Comment on above: Expected: 03/16/2024 , Expires: 06/15/2024 Start: 03-16-2024 End: 06-15-2024 LIPID PANEL, NONFASTING [facility] Comment on above: Expected: 03/16/2024 , Expires: 06/15/2024 Start: 03-16-2024 End: 06-15-2024 Magnesium [Mass/volume] in Serum or Plasma [facility] Comment on above: Expected: 03/16/2024 , Expires: 06/15/2024 Start: 03-16-2024 End: 06-15-2024 Thyrotropin [Units/volume] in Serum or Plasma [facility] Work Phone: Comment on above: Expected: 03/16/2024 , Expires: 06/15/2024 Start: 03-16-2024 End: 06-15-2024 Thyroxine (T4) free [Mass/volume] in Serum or Plasma [facility] Comment on above: Expected: 03/16/2024 , Expires: 06/15/2024 Start: 01-03-2024 PAP TESTING PAP TESTING [facility] Start: 01-03-2024 Screening for malign ant neoplasm of cervix Pap Testing [facility] Start: 12-15-2023 ANNUAL PCP TEAM DANCE DIRECTOR ISAURO DISEASE VISIT ANNUAL PCP TEAM CHRONIC DISEASE VISIT [facility] Start: 07-25-2023 ANNUAL PCP TEAM DANCE DIRECTOR ISAURO DISEASE VISIT ANNUAL PCP TEAM CHRONIC DISEASE VISIT [facility] Start: 07-24-2023 Covid-19 Vaccine () Covid-19 Vaccine () [facility] Start: 07-24-20[address] Influenza vaccination [facility] Start: 06-25-2023 ANNUAL PCP TEAM DANCE DIRECTOR ISAURO DISEASE VISIT ANNUAL PCP TEAM CHRONIC DISEASE VISIT [facility] Start: 04-16-2023 ANNUAL PCP TEAM DANCE DIRECTOR ISAURO DISEASE VISIT ANNUAL PCP TEAM CHRONIC DISEASE VISIT [facility] Start: 01-24-2023 ANNUAL PCP TEAM DANCE DIRECTOR ISAURO DISEASE VISIT ANNUAL PCP TEAM CHRONIC DISEASE VISIT [facility] Start: 01-24-2023 Urine microalbumin profile DTAP,TDAP,TD (1 - Tdap) [facility] Comment on above: Postponed from 09/30 (Declined at this time) Start: 12-15-2022 End: 02-14-2023 Comprehensive metabolic 2000 panel - Serum or Plasma [facility] Work Phone: Comment on above: Expected: 12/15/2022 , Expires: 02/14/2023 Start: 12-15-2022 End: 02-14-2023 Hemoglobin A1c in Blood [facility] Work Phone: Comment on above: Expected: 12/15/2022 , Expires: 02/14/2023 Start: 12-15-2022 End: 02-14-2023 LIPID PANEL, NONFASTING [facility] Work Phone: Comment on above: Expected: 12/15/2022 , Expires: 02/14/2023 Start: 12-15-2022 End: 02-14-2023 Thyrotropin [Units/volume] in Serum or Plasma [facility] Work Phone: Comment on above: Expected: 12/15/2022 , Expires: 02/14/2023 Start: 08-24-2022 X-ray of cervical spine Cerv Spine 2 or 3 Views [facility] Work Phone: Start: 08-24-2022 XR Cervical spine 2 or 3 Views [facility] Work Phone: Start: 07-24-2022 Influenza vaccination C [facility] Start: 07-09-2022 Mammography MAMMOGRAM [facility] Start: 07-09-2022 Screening for malign ant neoplasm of breast Mammogram Screening [facility] Start: 06-01-2022 COVID-19 VACCINE (4 - Booster for Moderna series) COVID-19 VACCINE (4 - Booster for Moderna series) [facility] Start: 03-27-2022 COVID-19 VACCINE (4 - Booster for Moderna series) COVID-19 VACCINE (4 - Booster for Moderna series) [facility] Start: 03-27-2022 COVID-19 VACCINE (4 - Moderna series) COVID-19 VACCINE (4 - Moderna series) [facility] Start: 04-18-2020 Colonoscopy COLONOSCOPY [facility] Start: 04-18-2020 COLORECTAL CANCER SCREENING COLORECTAL CANCER SCREENING [facility] Start: 04-18-2020 Screening for malign ant neoplasm of colon [facility] Start: 04-18-2016 Screening for malign ant neoplasm of colon Colonoscopy [facility] Start: 09-30-2015 Urine microalbumin profile [facility] Start: 2015 Influenza vaccination LUNG CANCER SC REENING [facility] Start: 2015 Screening for malign ant neoplasm of lung Lung Cancer Screening [facility] Start: 2015 SHINGRIX VACCINE (1 of 2) SHINGRIX VACCINE (1 of 2) [facility] Start: 02-25-2012 HPV TESTING HPV TESTING [facility] Start: 02-25-2012 Screening for malign ant neoplasm of cervix HPV Testing [facility] Start: 2010 COLOGUARD (FIT-DNA) COLOGUARD (FIT-D NA) [facility] Start: [address] COLONOGRAPHY [facility] Start: 2010 FECAL OCCULT BLOOD FECAL OCCULT BLOO D [facility] Start: 2010 Screening for malign ant neoplasm of colon [facility] Start: 2010 SIGMOIDOSCOPY SIGMOIDOSCOPY [facility] Start: 1984 ONE PNEUMOVAX PRIOR TO AGE 65 ONE PNEUMOVAX PRIOR TO AGE 65 [facility] Start: 1971 PNEUMOCOCCAL (1 - PCV) PNEUMOCOCCAL (1 - PCV) [facility] Start: 1971 Pneumococcal vaccination Pneum ococcal Vaccine (1 of 2 - PCV) [facility] Bacteria identified in Urine by Culture URINE CULTURE Microbiology Routine Dysuria Ordered: 08/04/2024 [facility] Work Phone: Comment on above: Ordered: 08/04/2024 COLOGUARD COLOGUARD Lab Ro utine Screening for colon cancer Ordered: 03/16/2024 [facility] Comment on above: Ordered: 03/16/2024 End: 03-30-2026 DBT Breast - bilateral screening DAYNA SCREENING W SRIDEVI Radiology Routine Encounter for screening mammogram for breast cancer 1 Occurrences starting 02/28/2025 until 03/30/2026 [facility] Comment on above: 1 Occurrences starti ng 02/28/2025 until 03/30/2026 DBT Breast - bilater al screening DAYNA SCREENING W SIRDEVI Radiology Routine Encounter for screening mammogram for breast cancer 03/30/2025 11:07 AM EDT [facility] Work Phone: End: 04-16-2023 EXERCISE STRESS ECG (WITHOUT IMAGING) EXERCISE STRESS ECG (WITHOUT IMAGING) Cardiology Routine Chest pain, unspecified type HERNANDEZ (dyspnea on exertion) Current moderate episode of major depressive disorder, unspecified whether recurrent (HCC) Palpitations 1 Occurrences starting 04/16/2022 until 04/16/2023 [facility] Work Phone: Comment on above: 1 Occurrences starti ng 04/16/2022 until 04/16/2023 Influenza virus A an d B RNA and SARS-CoV-2 (COVID-19) N gene panel - Respiratory specimen by KALI with probe detection COVID WITH FLUA+B, ROUTINE Microbiology Routine Flu-like symptoms Ordered: 04/04/2023 [facility] Work Phone: Comment on above: Ordered: 04/04/2023 End: 08-27-2024 DAYNA SCREENING DAYNA SCREENING Radiology Routine Encounter for screening mammogram for breast cancer 1 Occurrences starting 07/29/2023 until 08/27/2024 [facility] Work Phone: Comment on above: 1 Occurrences starti ng 07/29/2023 until 08/27/2024 End: 04-15-2025 MG Breast Screening DAYNA SCREENING Radiology Routine Encounter for screening for malignant neoplasm of breast, unspecified screening modality 1 Occurrences starting 03/16/2024 until 04/15/2025 [facility] Comment on above: 1 Occurrences starti ng 03/16/2024 until 04/15/2025 MG Breast Screening DAYNA SCREENIN G Radiology Routine Encounter for screening for malignant neoplasm of breast, unspecified screening modality 03/28/2024 12:56 PM EDT [facility] Work Phone: Patient Education [facility] Work Phone: Patient referral [facility] Work Phone: End: 09-19-2023 Screening mammography bi 2-view breast inc cad DAYNA SCREENING Radiology Routine Encounter for screening mammogram for breast cancer 1 Occurrences starting 08/20/2022 until 09/19/2023 [facility] Work Phone: Comment on above: 1 Occurrences starti ng 08/20/2022 until 09/19/2023 End: 04-15-2025 XR Pelvis and Hip - left AP and Lateral frog XR HIP GENERAL 3V PELV/AP/LAT LEFT Radiology Routine Left hip pain 1 Occurrences starting 03/16/2024 until 04/15/2025 [facility] Comment on above: 1 Occurrences starti ng 03/16/2024 until 04/15/2025 XR Pelvis and Hip - left AP and Lateral frog XR HIP GENERAL 3V PELV/AP/LAT LEFT Radiology Routine Left hip pain 03/16/2024 1:58 PM EDT [facility] Immunizations Immunization Date Immunization Notes Care Provider Tammy holt 03-16-2024 pneumococcal conjuga te (PCV20) vaccine, 20 valent (PREVNAR 20) Farzana Llamas PA-C Work Phone: [facility] 03-16-2024 zoster vaccine recombinant Farzana Llamas PA-C Work Phone: [facility] 03-16-2024 pneumococcal Conjugate, unspecified formulation Farzana Llamas PA-C Work Phone: [facility] 05-21-2021 Covid (Moderna) Dr. Earnest Dueñas Work Phone: [facility] 04-23-2021 Covid (Moderna) Dr. Earnest Dueñas Work Phone: [facility] 08-28-2019 influenza, seasonal, injectable Dr. Earnest Dueñas Work Phone: [facility] Work Phone: 08-28-2019 influenza virus vaccine, unspecified formulation Mima Royal STOCK CONTROL CLERK.CANDY PACKER Work Phone: [facility] 09-14-2017 hepatitis A and hepatitis B vaccine Earnest Ramirez STOCK CONTROL CLERK.CANDY PACKER Work Phone: [facility] Work Phone: 04-06-2017 hepatitis A and hepatitis B vaccine Earnest Ramirez STOCK CONTROL CLERK.CANDY PACKER Work Phone: [facility] Work Phone: 03-05-2017 hepatitis A and hepatitis B vaccine Earnest Ramirez STOCK CONTROL CLERK.CANDY PACKER Work Phone: [facility] Work Phone: 09-29-2015 tetanus and diphther ia toxoids, adsorbed, preservative free, for adult use (2 Lf of tetanus toxoid and 2 Lf of diphtheria toxoid) Dr. Earnest Dueñas Work Phone: [facility] 09-29-2015 tetanus and diphther ia toxoids, adsorbed, preservative free, for adult use (5 Lf of tetanus toxoid and 2 Lf of diphtheria toxoid) Earnest Ramirez STOCK CONTROL CLERK.CANDY PACKER Work Phone: [facility] Payers Date Payer Category Payer Self-pay [id number] 2024 Unknown [id number] 2024 Medicare (Managed Care) [facility] DUAL COMPLETE PPO SNP [id number] 2024 Unknown [id number] 2018 Medicaid [id number]. [id number] 2016 Medicare [id number]. [id number] 2016 Medicare [id number]. 1.13.159.2. [id number] 1965 Unknown [id number] 2.16.840.1.378176.3.579.2. 598 1965 Unknown [id number] 2.16.840.1.912028.3.579.2. 356 1965 Unknown [id number] 2.16.840.1.053844.3.579.2. 627 1959 Unknown [id number] Unknown [facility] F[employer]ET[employer] PA YOR [facility] [employer] PAYOR [id number] Effective for all dates [address] [place] [address] Other [id number]. [id number] Unknown [id number] 2.16.840.1.781551.3.579.2. 462 Unknown [id number] 2.16.840.1.797819.3.579.2. 462 Unknown [id number] 2.16.840.1.013440.3.579.2. 462 Unknown [id number] 2.16.840.1.133656.3.579.2. 462 Unknown [id number] 2.16.840.1.719219.3.579.2. 462 Unknown [id number] 2.16.840.1.266404.3.579.2. 462 Unknown [id number] 2.16.840.1.715306.3.579.2. 462 Unknown [id number] 2.16.840.1.748633.3.579.2. 462 Unknown [id number] 2.16840.1.575900.3.579.2. 462 Unknown [id number] 2.16840.1.443747.3.579.2. 462 Unknown [id number] 2.840.1.917551.3.579.2. 462 Unknown [id number] 2.16840.1.813035.3.579.2. 462 Unknown [id number] 2.16840.1.479369.3.579.2. 462 Unknown [id number] 2.16840.1.613115.3.579.2. 462 Unknown [id number] 2.16840.1.623122.3.579.2. 462 Unknown [id number] 2.16840.1.401715.3.579.2. 462 Unknown [id number] 2.16840.1.127133.3.579.2. 462 Unknown [id number] 2.16.840.1.487440.3.579.2. 462 Unknown [id number] 2.16.840.1.414754.3.579.2. 462 Unknown [id number] 2.16.840.1.594547.3.579.2. 462 Unknown [id number] 2.16840.1.022069.3.579.2. 462 Unknown [id number] 2.16.840.1.469945.3.579.2. 462 Unknown [id number] 2.16.840.1.502614.3.579.2. 462 Social History Date Type Detail Facility Start: 03-06-2022 End: 09-06-2022 Tobacco smoking status NHIS Unknown if ever smoked [facility] Work Phone: Start: 08-24-2020 Sober [facility] Work Phone: Start: 05-26-2015 None [facility] Work Phone: Start: 08-25-2020 Cigarettes [facility] Work Phone: Start: 1965 Sex Assigned At Female W [facility] Work Phone: Start: 07-25-2022 End: 08-04-2024 Tobacco smoking status NHIS Smokes tobacco daily [facility] Work Phone: History of tobacco use Cigarette Smoker C [facility] Start: 03-06-2022 End: 11-01-2024 Alcohol intake Current non-drinker of alcohol (finding) [facility] Start: 04-13-2015 End: 07-25-2022 Tobacco Comment half a pack a day [facility] Start: 1965 Sex Assigned At Not on file [facility] Start: 03-14-2021 End: 07-21-2022 Exposure to SARS-CoV-2 (event) Not sure [facility] Start: 07-25-2022 End: 03-16-2024 Cigarettes smoked current (pack per day) - Reported 0.5 [facility] Start: 07-25-2022 End: 08-04-2024 Tobacco use and exposure Smokeless tobacco non-user [facility] Tobacco smoking status Occasiona l tobacco smoker (finding) [facility] Sex Assigned At Sex [facility] Start: 04-04-2023 End: 03-16-2024 Tobacco use panel [facility] Adult Depression Screening Assessment 6 [facility] Functional Status Date Assessment Result Facility 10-01-2022 Functional Status Room check performed [facility] 05-22-2015 Are you deaf, or do you have serious difficulty hearing No 05/22/2015 8:44 AM EDT Chasity Corrales LPN No [facility] 05-22-2015 Are you blind, or do you have serious difficulty seeing, even when wearing glasses No 05/22/2015 8:44 AM BLAKET Chasity Corrales LPN No [facility] 05-22-2015 Do you have serious difficulty walking or climbing stairs No 05/22/2015 8:44 AM EDT Chasity Corrales LPN No [facility] 05-22-2015 Do you have difficul ty dressing or bathing No 05/22/2015 8:44 AM BLAKET Chasity Corrales LPN No [facility] 05-22-2015 Because of a physica l, mental, or emotional condition, do you have difficulty doing errands alone such as visiting a physician's office or shopping No 05/22/2015 8:44 AM EDT Chasity Corrales LPN No [facility] Mental Status Date Assessment Result Facility 10-01-2022 Mental Status Orientation Oriented x 4 [facility] 09-06-2022 Cognitive function Level Of Cons ciousness Awake;Alert;Appropriate;Fol lows Commands [facility] Work Phone: 03-06-2022 Cognitive function Level Of Cons ciousness Awake;Alert;Appropriate;Fol lows Commands [facility] Work Phone: 05-22-2015 Because of a physica l, mental, or emotional condition, do you have serious difficulty concentrating, remembering, or making decisions Yes 05/22/2015 8:44 AM BLAKET Chasity Corrales LPN Yes [facility] Clinical Notes 04-13-2021 to 03-31-2025 Telephone Encounter - Obey Agee LPN - 03/31/2025 12:12 PM EDTTelephone Encounter - Obey Agee LPN - 03/31/2025 12:12 PM Mirela Pillai Mammo Tech - 03/30/2025 11:10 AM EDT Note Date & Type Note Facility 03-31-2025 Telephone encounter Note Pt notified of same. Obey Agee LPN [facility] 03-31-2025 Miscellaneous Notes Pt notified of taylor. Obey Agee LPN ----- Message from Farzana Llamas PA-C sent at 03/31/2025 12:02 PM EDT ----- Normal mammogram. Repeat in 1 year. documented in this encounter [facility] 03-31-2025 Telephone encounter Note ----- Message from Farzana Llamas PA-C sent at 03/31/2025 12:02 PM EDT ----- Normal mammogram. Repeat in 1 year. [facility] 03-30-2025 History of Presen t illness Narrative Radiology Service Progress Note PATIENT NAME: Kami Watts DATE OF SERVICE: March 30, 2025 TIME: 11:45 AM PATIENT IDENTITY VERIFICATION COMPLETED USING TWO (2) IDENTIFIERS: Name and Date of confirmed by patient verbally. FALL SCREENING: Has the patient had 2 falls in the last year or 1 fall with injury or currently using an Ambulatory Assistive Device (Walker, Cane, Wheelchair, Crutches, etc.)? No PATIENT GENDER DATA: Assigned female at . status: : No status: NO. PATIENT RELEVANT IMPLANT DATA REVIEWED: Not Applicable PATIENT PRESENTS WITH AN IMPLANTABLE OR ATTACHED FARM LOAN INSPECTOR: No RADIOLOGY DEPARTMENT: Mammography PERIPHERAL IV DATA: Not applicable SIGNED BY: MirelaJayjay Oseguera March 30, 2025 11:45 AM documented in this encounter [facility] 03-30-2025 Note HNO ID: [id number] Author: MIRELA WESTON Mammo Tech Service: ? Author Type: [place] Type: Progress Notes Filed: 03/30/2025 11:45 Note Text: Radiology Service Progress Note PATIENT NAME: Kami Watts DATE OF SERVICE: March 30, 2025 TIME: 11:45 AM PATIENT IDENTITY VERIFICATION COMPLETED USING TWO (2) IDENTIFIERS: Name and Date of confirmed by patient verbally. FALL SCREENING: Has the patient had 2 falls in the last year or 1 fall with injury or currently using an Ambulatory Assistive Device (Walker, Cane, Wheelchair, Crutches, etc.)? No PATIENT GENDER DATA: Assigned female at . status: : No status: NO. PATIENT RELEVANT IMPLANT DATA REVIEWED: Not Applicable PATIENT PRESENTS WITH AN IMPLANTABLE OR ATTACHED FARM LOAN INSPECTOR: No RADIOLOGY DEPARTMENT: Mammography PERIPHERAL IV DATA: Not applicable SIGNED BY: Jayjay Almendarez March 30, 2025 11:45 AM [facility] 03-14-2025 Note HNO ID: [id number] Author: SHIRA MACDONALD MA Service: ? Author Type: Education And Outreach Coordinator Type: Progress Notes Filed: 03/14/2025 16:29 Note Text: Scan on 03/08/2025 9:19 AM by Rah Gabriel PA-C: Discharge Summary Shira Macdonald MA [facility] 03-14-2025 History of Presen t illness Narrative Scan on 03/08/2025 9:19 AM by Rha Gabriel PA-C: Discharge Summary Shira Macdonald MA documented in this encounter [facility] 03-08-2025 Note [facility] Medical Records Department [address] [place] [id number] Discharge Summary 03/08/25 0755 MR#: [id number] Acct: [id number] Name: KAMI WATTS Rep #: [id number] : 1965 59 From: Jeffry Rebolledo MD PCP: Dr. Earnest Dueñas MD Status:ADM IN Location: [facility] [id number] Providers Date of Admission: 03/05/25 Date of Discharge: 03/08/25 Primary Care Physician: Dr. Earnest Dueñas MD Reason For Visit: IMPENDING ETOH W/D Diagnosis Discharge Diagnosis (1) Alcohol withdrawal: Status: Acute Code(s): F10.939 - Alcohol use, unspecified with withdrawal, unspecified Qualifiers: Complication of substance-induced condition: with unspecified complication Qualified Code(s): F10.939 - Alcohol use, unspecified with withdrawal, unspecified (2) Alcohol use disorder: Status: Acute Code(s): F10.90 - Alcohol use, unspecified, uncomplicated (3) PTSD (post-traumatic stress disorder): Status: Acute Code(s): F43.10 - Post-traumatic stress disorder, unspecified (4) Generalized anxiety disorder: Status: Acute Code(s): F41.1 - Generalized anxiety disorder (5) Major depressive disorder, recurrent severe without psychotic features: Status: Acute Code(s): F33.2 - Major depressive disorder, recurrent severe without psychotic features (6) History of drug abuse: Status: Chronic Code(s): F19.11 - Other psychoactive substance abuse, in remission (7) Tobacco abuse: Status: Acute Code(s): Z72.0 - Tobacco use (8) Obesity (BMI 30.0-34.9): Status: Acute Code(s): E66.811 - Obesity, class 1 Plan Patient is a 59-year-old lady with history of chronic alcohol dependence presenting with acute alcohol withdrawal 1. Acute alcohol withdrawal - patient has been admitted to regular nursing floor currently being managed with phenobarb taper for medical stabilization ??? 03/07/2025;Patient seen still still has symptoms complains of nausea especially after eating. Will continue with the phenobarb taper and assess for possible discharge in the morning 03/08/2025; patient clinical condition and stabilized decision was made to discharge patient home for subsequent outpatient follow-up and treatment 2. Previous history of opioid dependence Patient has remained in remission for over a year currently on Suboxone 3. COPD ??? Currently not in exacerbation aerosol treatment as needed 4. Tobacco dependence - Counseled on cessation, offered nicotine patch for tobacco cravings 5. DVT prophylaxis ??? Subcu heparin Time spent in the patient's overall evaluation,decision-making process, review of diagnostic data, adjustment of management, discussion with other providers, nursing nursing and ancillary staff involved in patient's care documentation, 32 Minutes Medications at Discharge Home Medications buprenorphine 8 mg-naloxone 2 mg sublingual film 1 ea sublingual BID 07/13/24 clonidine HCl 0.1 mg tablet 0.1 mg PO BID PRN anxiety #60 tabs 12/02/24 escitalopram oxalate 20 mg tablet (Lexapro) 20 mg PO DAILY 30 days #30 tabs 12/02/24 buspirone 10 mg tablet 10 mg PO BID 30 days #60 tabs 01/06/25 ergocalciferol (vitamin D2) 1,250 mcg (50,000 unit) capsule 1,250 mcg PO QWEEK 03/05/25 Physical Exam Narrative GENERAL: cooperative HEENT: Atraumatic; normocephalic EYES; Anicteric, Normal Conjunctiva NECK; supple, normal thyroid, RESPIRATORY: Diminished to auscultation CARDIOVASCULAR: Regular S1 S2, GI: soft, normoactive bowel sounds, : No Renal angle tenderness; EXTREMITIES: No edema, no clubbing, MUSCULOSKELETAL: no muscle wasting NEURO: Awake; no lateralizing signs. SKIN: No Rash PSYCH; Flat affect Weight / BMI Weight Weight: 87.634 kg Body Mass Index (BMI) 34.2 ABG / Lab / Microbiology Data 03/06/25 05:39 03/06/25 05:39 Laboratory: Laboratory Results - last 24 hr 03/07/25 06:54: Phosphorus 3.3 D/C Instructions Discharge Diet: No restrictions Discharge Activity: Return to Normal Activity Call your doctor if you observe: Fever of 101 or Higher, Shortness of breath, Fainting spells and Chest pain DC O2, CPAP, BIPAP Needs Home O2 Discharge instructions: No Meaningful Use Info Meaningful Use Meaningful Use Diagnoses (Choose all that apply): None applicable Ischemic Stroke Statin Dosing Therapy Reference: STATIN DOSE THERAPY REFERENCE: * Patients > 75 years receive moderate or high dose statin therapy. * Patients 75 years or YOUNGER should receive HIGH intensity statin dose unless contraindicated. You will be required to document reason for non-treatment if statin daily dose does not meet guidelines. HIGH DOSE STATIN THERAPY DAILY Atorvastatin > than or = to 40 mg Rosuvastatin > than or = to 20 mg Amlodipine + Atorvastatin > than or = to 2.5/40 mg Ezetimibe + Simvastatin 10/80 mg Simv (more content not included)... [facility] 03-07-2025 Note HNO ID: [id number] Author: SHIRA MACDONALD MA Service: ? Author Type: Education And Outreach Coordinator Type: Progress Notes Filed: 03/07/2025 15:03 Note Text: Scan on 03/05/2025 11:19 PM by ProviderRah PA-C: Consultation - Emergency Medicine Scan on 03/06/2025 6:48 AM by Rah Gabriel PA-C: Consultation - Emergency Medicine Detox alchol. Shira Macdonald MA [facility] 03-07-2025 History of Presen t illness Narrative Scan on 03/05/2025 11:19 PM by Rah Gabriel PA-C: Consultation - Emergency Medicine Scan on 03/06/2025 6:48 AM by Rah Gabriel PA-C: Consultation - Emergency Medicine Detox alchol. Shira Macdonald MA documented in this encounter [facility] 03-02-2025 Telephone encounter Note Pt notified and verbalized understanding Mavis Nicholas MA [facility] 03-02-2025 Miscellaneous Notes Pt notified and verbalized understanding Mavis Nicholas MA Please let patient know her vitamin d is still low. I have sent in a prescription for supplementation. Repeat vitamin d level in 3 months. documented in this encounter [facility] 03-02-2025 Telephone encounter Note Please let patient know her vitamin d is still low. I have sent in a prescription for supplementation. Repeat vitamin d level in 3 months. [facility] 02-28-2025 Note HNO ID: [id number] Author: JOAN TALLEY APRN.CANDY PACKER Service: ? Author Type: Nurse Practitioner Type: Progress Notes Filed: 02/28/2025 11:56 Note Text: Chief Complaint Patient presents with: Physical HPI Kami Watts is a 59 year old female who presents here today for Above Complaints.. Patient presents for annual physical. Past medical history, appointments, medications, allergies reviewed. [...] medication use - NO IV drug use. Encounter for Medicare annual wellness exam 05/10/2015 Last done: 03/16/24 Esophageal reflux Gastroesophageal reflux Family history of [...] W/WO ENDOCERVIX BX W/O DILAT SPX 03/03/2007 EXT HYSTERECTOMY,W/PARTIAL VAGINECTO 07/31/2023 LIG/TRNSXJ FLP TUBE ABDL/VAG APPR UNI/BI 2002 [...] Disease Mother Hypertension Mother Hearing Loss Father SD/ colon cancer Stroke Father Diabetes Father Hypertension Father Aneurysm Father Coronary Artery Disease Maternal Grandmother Hypertension Maternal Grandmother Ischemic Heart Disease Maternal Grandfather Hypertension Paternal Grandmother Coronary Artery Disease Paternal Grandmother Coronary Artery Disease Paternal Grandfather Cancer Sister CERVICAL/colon cancer Cancer Paternal Aunt DOESN'T KNOW TYPE Heart Brother SD Hypertension Daughter Colon Cancer Brother Patient Allergies ALLERGIES No Known Allergies Current Medications Current Outpatient Medications on File Prior to Visit Medication Sig busPIRone (BUSPAR) 5 mg tablet Take 1 tablet by mouth every 12 hours. cholecalciferol, Vitamin D3, (VITAMIN D3) 1,250 mcg (50,000 unit) cap capsule Take 1 capsule by mouth one time a week. escitalopram oxalate (LEXAPRO) 10 mg tablet Take 1 tablet by mouth once daily. albuterol HFA (PROAIR HFA) 90 mcg/actuation inhaler Inhale 2 Puffs as instructed every 4 hours as needed. buprenorphine-naloxone (SUBOXONE) 8-2 mg film Dissolve 2 Film under the tongue once daily. No current facility-administered medications on file prior to visit. Social History Social History Tobacco Use Smoking status: Every Day Current packs/day: 1.00 Average packs/day: 1 pack/day for 40.0 years (40.0 ttl pk-yrs) Types: Cigarettes Smokeless tobacco: Never Tobacco comments: half a pack a day Vaping Use Vaping status: Never Used Substance Use Topics Alcohol use: No Drug use: Not Currently Comment: sober since june 01 2014-meth Review of Symptoms REVIEW OF SYSTEMS SEE HPI EXAM: BP 145/96 Pulse 83 Wt 86 kg (189 lb 9.5 oz) LMP 01/15/2017 (Within Days) BMI 34. (more content not included)... [facility] 02-28-2025 History of Presen t illness Narrative Chief Complaint Patient presents with: Physical HPI Kami Watts is a 59 year old female who presents here today for Above Complaints.. Patient presents for annual physical. Past medical history, appointments, medications, allergies reviewed. [...] medication use - NO IV drug use. Encounter for Medicare annual wellness exam 05/10/2015 Last done: 03/16/24 Esophageal reflux Gastroesophageal reflux Family history of [...] RETINOPATHY 12/27/2014 DILATION & CURETTAGE DX&/THER NONOBSTETRIC 1982, 10/2016 Dilation & curettage ENDOMETRIAL BX W/WO ENDOCERVIX BX W/O DILAT SPX 03/03/2007 EXT HYSTERECTOMY,W/PARTIAL VAGINECTO 07/31/2023 LIG/TRNSXJ FLP TUBE ABDL/VAG APPR UNI/BI 2002 [...] Disease Mother Hypertension Mother Hearing Loss Father SD/ colon cancer Stroke Father Diabetes Father Hypertension Father Aneurysm Father Coronary Artery Disease Maternal Grandmother Hypertension Maternal Grandmother Ischemic Heart Disease Maternal Grandfather Hypertension Paternal Grandmother Coronary Artery Disease Paternal Grandmother Coronary Artery Disease Paternal Grandfather Cancer Sister CERVICAL/colon cancer Cancer Paternal Aunt DOESN'T KNOW TYPE Heart Brother SD Hypertension Daughter Colon Cancer Brother Patient Allergies ALLERGIES No Known Allergies Current Medications Current Outpatient Medications on File Prior to Visit Medication Sig busPIRone (BUSPAR) 5 mg tablet Take 1 tablet by mouth every 12 hours. cholecalciferol, Vitamin D3, (VITAMIN D3) 1,250 mcg (50,000 unit) cap capsule Take 1 capsule by mouth one time a week. escitalopram oxalate (LEXAPRO) 10 mg tablet Take 1 tablet by mouth once daily. albuterol HFA (PROAIR HFA) 90 mcg/actuation inhaler Inhale 2 Puffs as instructed every 4 hours as needed. buprenorphine-naloxone (SUBOXONE) 8-2 mg film Dissolve 2 Film under the tongue once daily. No current facility-administered medications on file prior to visit. Social History Social History Tobacco Use Smoking status: Every Day Current packs/day: 1.00 Average packs/day: 1 pack/day for 40.0 years (40.0 ttl pk-yrs) Types: Cigarettes Smokeless tobacco: Never Tobacco comments: half a pack a day Vaping Use Vaping status: Never Used Substance Use Topics Alcohol use: No Drug use: Not Currently Comment: sober since june 01 2014-meth Review of Symptoms REVIEW OF SYSTEMS SEE HPI EXAM: BP 145/96 Pulse 83 Wt 86 kg (189 lb 9.5 oz) LMP 01/15/2017 (Within Days) BMI 34.02 kg/m General Appearance: Well appearing, alert, in no acute distress, well-hydrated, well nourished. Skin: Skin color, texture, turgor normal, no suspicious rashes or lesions. Neck: Supple, no adenopathy; thyroid symmetric, normal size, no bruits. Lungs: Lungs clear to auscultation. No wheezing, rhonchi, rales.. Heart: RRR without murmur, gallop, or rubs. No ectopy. Abdomen: Normal abdominal exam, Abdomen soft, non-tender. Bowel sounds normal. No masses, organomegaly. Musculoskeletal: No joint swelling, deformity, or tenderness. Peripheral Pulses: Normal. Neurologic: Gait normal. Reflexes normal and symmetric. Sensation grossly intact.. Health Maintenance List Lung Cancer Screening Never done Shingrix Vaccine(2 of 2) due on 05/11/2024 Influenza Vaccine(1) due on 07/24/2024 Covid-19 Vaccine( - season) due on 07/24/2024 Mammogram Screening due on 03/28/2025 DTaP,Tdap,Td Vaccine(1 - Tdap) due on 03/16/2025 Annual PCP Team Chronic Disease Visit due on 03/16/2025 Colorectal Cancer Screening due on 02/02/2028 Diabetes Screening due on 02/17/2028 Lipid Screening due on 03/16/2029 Hepatitis C Screening Completed HIV Screening Completed Pneumococcal Vaccine: 50+ Completed Cervical Cancer Screening Discontinued Data reviewed Last 5 Encounter BP Readings: Date: BP: 02/28/2025 145/96 11/01/2024 148/86 08/04/2024 114/78 03/21/2024 122/66 03/16/2024 112/60 ASSESSMENT/PLAN: 1. Well adult exam - ICD9: V70.0, ICD10: Z00.00 (primary diagnosis) - Counseled on healthy diet and regular exercise - Discussed need and benefit for weight loss. BMI 34.02 kg/(m^2) - Breast cancer screening - ordered mammogram - Lung cancer screening - referral placed - Smoking cessation encouraged; discussed health risks and quitting strategies. Patient is not ready to quit - Follow up for annual exam in one year 2. Vitamin D deficiency - ICD9: 268.9, ICD10: E55.9 - VITAMIN D 25 HYDROXY 3. Low serum vitamin B12 - ICD9: 266.2, ICD10: E53.8 - VITAMIN B12 4. Medication management - ICD9: V58.69, ICD10: Z79.899 - MAGNESIUM 5. Acquired hypothyroidism - ICD9: 244.9, ICD10: E03.9 - Instructed patient on importance of taking on an empty stomach either first thing in the morning or at bedtime. - check TSH today - THYROID STIMULATING HORMONE 6. Screening for diabetes mellitus - ICD9: V77.1, ICD10: Z13.1 - HEMOGLOBIN A1C 7. Moderate episode of recurrent major depressive disorder (HCC) - ICD9: 296.32, ICD10: F33.1 -Continue current medications 8. Migraine with aura and without status migrainosus, not intractable - ICD9: 346.00, ICD10: G43.109 -No current medication regimen 9. History of hepatitis C - ICD9: V12.09, ICD10: Z86.19 -Resolved 10. Gastroesophageal reflux disease without esophagitis - ICD9: 530.81, ICD10: K21.9 - Discussed lifestyle modifications including losing weight, limiting caffeine, no meals three hours before sleep, and head of bed elevation 11. Insomnia, unspecified type - ICD9: 780.52, ICD10: G47.00 -Improved 12. Left hip pain - ICD9: 719.45, ICD10: M25.552 - CONSULT PANEL TO ORTHOPAEDICS 13. Encounter for screening mammogram for breast cancer - ICD9: V76.12, ICD10: Z12.31 - Set up for mammogram, yearly mammogram recommended - Encouraged monthly BSE - Follow up for annual exam in one year. - DAYNA SCREENING W SRIDEVI 14. Encounter for screening for lung cancer - ICD9: V76.0, ICD10: Z12.2 - CONSULT LUNG CANCER SCREENING CLINIC Joan Talley APRN.CANDY PACKER documented in this encounter [facility] 02-22-2025 Telephone encounter Note Patient has Wellness appt with Joan Talley CNP on 02/28/25. Pt states she had external labs completed recently, ordered by an online therapy company called [employer] that works with suboxone therapy. Pt states she will have this company fax lab results to Joan's office for review at her 02/28 appt. Please call patient for any questions or concerns, . Fior Wheatley RN [facility] 02-22-2025 Miscellaneous Notes Patient has Wellness appt with Joan Talley CNP on 02/28/25. Pt states she had external labs completed recently, ordered by an online therapy company called [employer] that works with suboxone therapy. Pt states she will have this company fax lab results to Joan's office for review at her 02/28 appt. Please call patient for any questions or concerns, . Fior Wheatley RN documented in this encounter [facility] 02-08-2025 Telephone encounter Note Patient notified of results and provider's instructions. Patient verbalizes understanding. Obey Agee LPN [facility] 02-08-2025 Miscellaneous Notes Patient notified of results and provider's instructions. Patient verbalizes understanding. Obey Agee LPN ----- Message from Farzana Llamas PA-C sent at 02/08/2025 7:47 AM EDT ----- Your Cologuard test came back negative (low risk of colorectal cancer). I recommend repeating colorectal cancer screening in 3 years. documented in this encounter [facility] 02-08-2025 Telephone encounter Note ----- Message from Farzana Llamas PA-C sent at 02/08/2025 7:47 AM EDT ----- Your Cologuard test came back negative (low risk of colorectal cancer). I recommend repeating colorectal cancer screening in 3 years. [facility] 11-12-2024 Note [facility] Medical Records Department [address] [place] [id number] Discharge Summary 11/12/24 1000 MR#: [id number] Acct: [id number] Name: KAMI WATTS Rep #: [id number] : 1965 59 From: Krystyna Trujillo DO PCP: Dr. Earnest Dueñas MD Status:ADM IN [id number] Prov[facility] Date of Admission: 11/10/24 Date of Discharge: 11/12/24 Primary Care Physician: Dr. Earnest Dueñas MD Reason For Visit: ALCOHOL DETOX Diagnosis Discharge Diagnosis (1) Alcohol abuse with physiological dependence: Status: Acute Code(s): F10.20 - Alcohol dependence, uncomplicated (2) Tobacco use: Status: Acute Code(s): Z72.0 - Tobacco use Medications at Discharge Home Medications buprenorphine 8 mg-naloxone 2 mg sublingual film 1 ea sublingual BID 07/13/24 escitalopram oxalate 20 mg tablet (Lexapro) 20 mg PO DAILY 30 days #30 tabs 10/05/24 buspirone 10 mg tablet 10 mg PO BID 30 days #60 tabs 10/19/24 Hospital Course Operations None Procedures None Summary of Care Provided Minutes Spent on Discharge: 20 Hospital Course: Mrs. Watts is a 59-year-old white female who presented to the emergency department at [facility] on 11/10/2020 for requesting detox from alcohol. Patient reported that she has struggled intermittently with alcohol use for the past 1-1/2 weeks and has been drinking at least 1 large bottle of jenny mix a day with her last drink being the night before presentation. She stated that she has cravings before she wakes up and nausea and anxiety as well as shakiness with withdrawal symptoms. Patient reported she had been unable to stop on her own and presented requesting detox. She does have several admissions for alcohol detox and her last 1 was in June 2024. Vital signs on presentation showed temperature 97.5, heart rate 86, respiratory rate 15, blood pressure initially was 176/98 with a repeat at 128/84, pulse ox was 97% on room air. CBC was overtly unremarkable. Coags were normal. Chemistry panel was overall unremarkable. She was admitted to the medical floor and placed on with CIWA protocol, thiamine folate and supportive medications for withdrawal symptoms. Given that she only been drinking for a week again it was not felt that she would need full detox with phenobarbital. She was admitted and monitored closely with CIWA and as needed Ativan. Max CIWA was 1 for shakiness. She never did require any as needed medications. She did report she started drinking again because of friend brought over some orange Jell-O which is her favorite and she did not realize it was laced with alcohol. After that she said she had a taste for it and went on a binge drinking escapade. By the a.m. of 11/12/2024 which was 48 hours at least since her last drink she was still not having any significant symptoms so was felt she could be discharged home in stable condition. She was seen by 180 during her hospitalization and outpatient follow-up information was given to the patient. She is familiar with this as she has been here before for detox. Patient was discharged home in stable condition on 11/12/2024. Discharge diagnoses: Alcohol use disorder with pending withdrawal-resolved History of polysubstance use disorder Depression Anxiety Tobacco abuse Obesity Physical Exam Const alert, oriented x3, no apparent distress, no limitations and well nourished; Negative for average body habitus Constitutional Narrative: Obese, middle-aged, white female, lying in bed resting, appears a bit older than stated age, appears comfortable, nontoxic, no tremor General Appearance: cooperative, comfortable, well kempt and well developed HEENT normocephalic, head/scalp atraumatic and moist oral mucous membranes Resp normal respiratory effort, no retractions, no use of accessory muscles and clear to auscultation bilaterally Resp Narrative: Diminished but clear Auscultation: Negative for rales, rhonchi or wheezes Cardio regular rate, regular rhythm, S1 normal heart sound, S2 normal heart sound, no murmurs, no rub, no gallops and no clicks GI normal to inspection, nondistended, normoactive bowel sounds, soft to palpation and non-tender Extremity no clubbing, cyanosis or edema Neuro moves all extremities and no focal motor deficits Speech: speech normal Psych affect normal Psych Narrative: Very pleasant, interacts appropriately, calm today Weight / BMI Weight Weight: 80.921 kg Body Mass Index (BMI) 31.6 ABG / Lab / Microbiology Data 11/10/24 16:30 11/10/24 16:30 D/C Instructions Discharge Diet: No restrictions Discharge Activity: Return to Normal Activity Return to work on: 11/13/24 DC O2, CPAP, BIPAP Needs Home O2 Discharge instructions: No Meaningful Use Info Meaningful Use Meaningful Use Diagnoses (Choose all that a (more content not included)... [facility] 11-11-2024 Note HNO ID: [id number] Author: OBEY AGEE LPN Service: ? Author Type: LICENSED NURSE Type: Progress Notes Filed: 11/11/2024 06:50 Note Text: Scan on 11/10/2024 10:24 PM by Provider, MATT Monreal: Consultation - Emergency Medicine Scan on 11/10/2024 5:55 PM by Provider, Rah, PAPaul [facility] 11-11-2024 History of Presen t illness Narrative Scan on 11/10/2024 10:24 PM by ProviderRah PA-C: Consultation - Emergency Medicine Scan on 11/10/2024 5:55 PM by ProviderRah PA-C documented in this encounter [facility] 11-01-2024 Note HNO ID: [id number] Author: JESS ELLIS PA Service: ? Author Type: Physician Territory Account Representative Type: Progress Notes Filed: 11/01/2024 13:57 Note Text: This note was created using [employer]. Wu Watts is a 59 year old female. HPI 59-year-old female presents for nasal congestion, sinus pressure, sinus pain, headache, cough x 1 week. Patient states she started getting sick about a week ago. She has sinus congestion, sinus pressure and sinus pain. She states she has a little bit of a sore throat. No fevers. She has had chills and bodyaches. She states that she has a cough, dry. She is a smoker. She states she has never been diagnosed with COPD. She does have an inhaler she uses from time to time. She states that she has used it once for this illness. No chest pain or shortness of breath. No vomiting or diarrhea. Granddaughter was recently sick. Patient has not taken anything [id number] for symptoms. PAST MEDICAL HISTORY Diagnosis Date Abnormal glandular [...] medication use - NO IV drug use. Encounter for Medicare annual wellness exam 05/10/2015 Last done: 03/16/24 Esophageal reflux Gastroesophageal reflux Family history of [...] W/WO ENDOCERVIX BX W/O DILAT SPX 03/03/2007 EXT HYSTERECTOMY,W/PARTIAL VAGINECTO 07/31/2023 LIG/TRNSXJ FLP TUBE ABDL/VAG APPR UNI/BI 2002 Tubal ligation PAST SURGICAL HISTORY OF 1997 BENIGN TUMOR REMOVED RIGHT HAND PAST SURGICAL HISTORY OF 2012 cataract with lens implant, bilat PAST SURGICAL HISTORY OF 07/31/2023 anterior and posterior vaginal repair, Dr. Molina RPR UMBILICAL HERNIA < 5 YRS REDUCIBLE 2002 Hernia repair, umbilical <5yr ALLERGIES Patient has no known allergies. MEDICATIONS busPIRone (BUSPAR) 5 mg tablet Take 1 tablet by mouth every 12 hours. cholecalciferol, Vitamin D3, (VITAMIN D3) 1,250 mcg (50,000 unit) cap capsule Take 1 capsule by mouth one time a week. escitalopram oxalate (LEXAPRO) 10 mg tablet Take 1 tablet by mouth once daily. albuterol HFA (PROAIR HFA) 90 mcg/actuation inhaler Inhale 2 Puffs as instructed every 4 hours as needed. buprenorphine-naloxone (SUBOXONE) 8-2 mg film Dissolve 2 Film under the tongue once daily. doxycycline (VIBRA-TABS) 100 mg tablet Take 1 tablet by mouth two times a day for 7 days. FAMILY HISTORY Problem Relation Age of Onset Diabetes Mother colon cancer Coronary Artery Disease Mother Hypertension Mother Hearing Loss Father SD/ colon cancer Stroke Father Diabetes Father Hypertension Father Aneurysm Father Coronary Artery Disease Maternal Grandmother Hypertension Maternal Grandmother Ischemic Heart Disease Maternal Grandfather Hypertension Paternal Grandmother Coronary Artery Disease Paternal Grandmother Coronary Artery Disease Paternal Grandfather Cancer Sister CERVICAL/colon cancer Cancer Paternal Aunt DOESN'T KNOW TYPE Heart Brother SD Hypertension Daughter Colon Cancer Brother Social History Tobacco Use Smoking status: Every Day Current packs/day: 1.00 Average packs/day: 1 pack/day for 40.0 years (40.0 ttl pk-yrs) Ty (more content not included)... [facility] 11-01-2024 History of Presen t illness Narrative This note was created using [employer]. Wu Watts is a 59 year old female. HPI 59-year-old female presents for nasal congestion, sinus pressure, sinus pain, headache, cough x 1 week. Patient states she started getting sick about a week ago. She has sinus congestion, sinus pressure and sinus pain. She states she has a little bit of a sore throat. No fevers. She has had chills and bodyaches. She states that she has a cough, dry. She is a smoker. She states she has never been diagnosed with COPD. She does have an inhaler she uses from time to time. She states that she has used it once for this illness. No chest pain or shortness of breath. No vomiting or diarrhea. Granddaughter was recently sick. Patient has not taken anything [id number] for symptoms. PAST MEDICAL HISTORY Diagnosis Date Abnormal glandular [...] medication use - NO IV drug use. Encounter for Medicare annual wellness exam 05/10/2015 Last done: 03/16/24 Esophageal reflux Gastroesophageal reflux Family history of [...] W/WO ENDOCERVIX BX W/O DILAT SPX 03/03/2007 EXT HYSTERECTOMY,W/PARTIAL VAGINECTO 07/31/2023 LIG/TRNSXJ FLP TUBE ABDL/VAG APPR UNI/BI 2002 Tubal ligation PAST SURGICAL HISTORY OF 1997 BENIGN TUMOR REMOVED RIGHT HAND PAST SURGICAL HISTORY OF 2012 cataract with lens implant, bilat PAST SURGICAL HISTORY OF 07/31/2023 anterior and posterior vaginal repair, Dr. Molina RPR UMBILICAL HERNIA < 5 YRS REDUCIBLE 2002 Hernia repair, umbilical <5yr ALLERGIES Patient has no known allergies. MEDICATIONS busPIRone (BUSPAR) 5 mg tablet Take 1 tablet by mouth every 12 hours. cholecalciferol, Vitamin D3, (VITAMIN D3) 1,250 mcg (50,000 unit) cap capsule Take 1 capsule by mouth one time a week. escitalopram oxalate (LEXAPRO) 10 mg tablet Take 1 tablet by mouth once daily. albuterol HFA (PROAIR HFA) 90 mcg/actuation inhaler Inhale 2 Puffs as instructed every 4 hours as needed. buprenorphine-naloxone (SUBOXONE) 8-2 mg film Dissolve 2 Film under the tongue once daily. doxycycline (VIBRA-TABS) 100 mg tablet Take 1 tablet by mouth two times a day for 7 days. FAMILY HISTORY Problem Relation Age of Onset Diabetes Mother colon cancer Coronary Artery Disease Mother Hypertension Mother Hearing Loss Father SD/ colon cancer Stroke Father Diabetes Father Hypertension Father Aneurysm Father Coronary Artery Disease Maternal Grandmother Hypertension Maternal Grandmother Ischemic Heart Disease Maternal Grandfather Hypertension Paternal Grandmother Coronary Artery Disease Paternal Grandmother Coronary Artery Disease Paternal Grandfather Cancer Sister CERVICAL/colon cancer Cancer Paternal Aunt DOESN'T KNOW TYPE Heart Brother SD Hypertension Daughter Colon Cancer Brother Social History Tobacco Use Smoking status: Every Day Current packs/day: 1.00 Average packs/day: 1 pack/day for 40.0 years (40.0 ttl pk-yrs) Types: Cigarettes Smokeless tobacco: Never Tobacco comments: half a pack a day Vaping Use Vaping status: Never Used Substance Use Topics Alcohol use: No Drug use: Not Currently Comment: sober since june 01 2014-meth Review of Systems Constitutional: Positive for chills. Negative for fever. HENT: Positive for congestion, sinus pressure, sinus pain and sore throat. Negative for ear pain. Respiratory: Positive for cough. Negative for shortness of breath. Cardiovascular: Negative for chest pain. Gastrointestinal: Negative for diarrhea and vomiting. Musculoskeletal: Positive for myalgias. Objective BP 148/86 Pulse 68 Temp 36.7 C (98 F) (Tympanic) Resp 18 Wt 84.1 kg (185 lb 6.5 oz) LMP 01/15/2017 (Within Days) SpO2 95% BMI 33.27 kg/m Physical Exam Vitals and nursing note reviewed. Constitutional: General: She is not in acute distress. Appearance: Normal appearance. She is not toxic-appearing. HENT: Right Ear: Tympanic membrane and ear canal normal. Left Ear: Tympanic membrane and ear canal normal. Nose: Congestion present. Right Sinus: Maxillary sinus tenderness and frontal sinus tenderness present. Left Sinus: Maxillary sinus tenderness and frontal sinus tenderness present. Mouth/Throat: Mouth: Mucous membranes are moist. Eyes: Conjunctiva/sclera: Conjunctivae normal. Cardiovascular: Rate and Rhythm: Normal rate and regular rhythm. Pulmonary: Effort: Pulmonary effort is normal. Breath sounds: Normal breath sounds. No wheezing, rhonchi or rales. Skin: General: Skin is warm and dry. Neurological: Mental Status: She is alert. Assessment and Plan ASSESSMENT/PLAN: 1. Sinobronchitis - ICD9: 473.9, 490, ICD10: J32.9, J40 - Will begin treatment with Doxycycline - The patient should also be given OTC decongestants prn for the first 5-7 days of treatment. - Supportive care with plenty of fluids, rest, and analgesia prn. -Follow-up with PCP or return if no improvement in 5 to 7 days. Diagnosis and treatment plan were discussed and questions were answered to the patient's satisfaction. Pt acknowledged understanding of concepts and follow up plan. Specific signs and symptoms that would indicate the need for higher level of care were discussed in detail warranting prompt ER evaluation. MARIO Mcgee documented in this encounter [facility] 10-06-2024 Telephone encounter Note Left message for pt to call back to schedule f/u appointment with Farzana. Farzana had advised pt to f/u for depression/med in 4 weeks at last ov 03/16/24. Obey Agee LPN [facility] 10-06-2024 Miscellaneous Notes Left message for pt to call back to schedule f/u appointment with Farzana. Farzana had advised pt to f/u for depression/med in 4 weeks at last ov 03/16/24. Obey Agee LPN documented in this encounter [facility] 08-18-2024 Note HNO ID: [id number] Author: KYUNG ROMO MA Service: ? Author Type: Education And Outreach Coordinator Type: Progress Notes Filed: 08/18/2024 11:55 Note Text: Scan on 08/17/2024 5:12 PM by Rah Gabriel PA-C: Vit D Scan on 08/17/2024 2:13 PM by Rah Gabriel PA-C: TSH [facility] 08-18-2024 History of Presen t illness Narrative Scan on 08/17/2024 5:12 PM by Rah Gabriel PA-C: Vit D Scan on 08/17/2024 2:13 PM by Rah Gabriel PARobyC: TSH documented in this encounter [facility] 08-08-2024 Note HNO ID: [id number] Author: OBEY AGEE LPN Service: ? Author Type: LICENSED NURSE Type: Progress Notes Filed: 08/08/2024 07:05 Note Text: Scan on 08/05/2024 6:03 PM by Rah Gabriel PA-C: Consultation - Emergency Medicine [facility] 08-08-2024 History of Presen t illness Narrative Scan on 08/05/2024 6:03 PM by ProviderRah PA-C: Consultation - Emergency Medicine documented in this encounter [facility] 08-06-2024 Telephone encounter Note Patient given results and verbalized understanding of instructions given. Patient went to ED she has a kidney stone. Dalia Farris MA [facility] 08-06-2024 Miscellaneous Notes Patient given results and verbalized understanding of instructions given. Patient went to ED she has a kidney stone. Dalia Farris MA Please inform patient that urine culture did not show any growth of bacteria requiring treatment. If symptoms improving complete antibiotic Advise due to blood in the urine that she follow up with PCP for recheck of urine in 1-2 weeks. Vivi Ashraf APRN.CNP documented in this encounter [facility] 08-05-2024 Telephone encounter Note Please inform patient that urine culture did not show any growth of bacteria requiring treatment. If symptoms improving complete antibiotic Advise due to blood in the urine that she follow up with PCP for recheck of urine in 1-2 weeks. Vivi Ashraf APRN.CNP [facility] Work Phone: 08-04-2024 Note HNO ID: [id number] Author: NNAMDI MACDONALD APRN.CNP Service: ? Author Type: Nurse Practitioner Type: Progress Notes Filed: 08/04/2024 12:07 Note Text: CC: Patient presents with: UTI: Urgency, dysuria x2 days, L sided groin pain JOSE Watts is a 59 year old female who presents with complaint of possible UTI. These symptoms have been present for 2 days. Associated symptoms: burning and urgency Denies: fever, chills, sweats, abdominal pain, and flank pain Treatments: nothing The ROS was otherwise negative. PMH, Medications, labs, allergies, and recent past visits with PCP were reviewed and updated as able. PHYSICAL EXAM: BP 114/78 Pulse 71 Temp 36.6 ?C (97.8 ?F) Resp 18 Wt 78.8 kg (173 lb 11.6 oz) LMP 01/15/2017 (Within Days) SpO2 99% BMI 31.17 kg/m? General: Well appearing and alert CV: Regular rate and rhythm without obvious murmur Lungs: clear to auscultation bilaterally Back: straight and symmetric Abdomen: soft, nontender, nondistended PAST MEDICAL HISTORY No date: Abnormal glandular Papanicolaou smear of cervix Comment: Abn. Pap smear (cervix) 01/29/2016: Acquired hypothyroidism Comment: Labs 01/2015 normal with no meds. 08/24/2007: Adjustment disorder with depressed mood 07/17/2021: Alcohol abuse Comment: In ER 09/10/21: Sober since May 11, 2021- checked herself in for detox and is in AA 08/29/2016: Alcohol dependence in remission ([facility]) Comment: In treatment 04/06/11 06/28/2010: Anxiety 04/16/2021: Bilateral hip joint arthritis 04/16/2021: Cervical arthritis 08/24/2007: Decreased libido No date: Diabetes mellitus without mention of complication Comment: Diabetes mellitus No date: Diarrhea No date: Drug addiction ([facility]) Comment: In treatment 04/06/11 - prescription pain medication use - NO IV drug use. 05/10/2015: Encounter for Medicare annual wellness exam Comment: Last done: 03/16/24 No date: Esophageal reflux Comment: Gastroesophageal reflux 01/29/2016: Family history of early CAD 01/29/2016: Gastroesophageal reflux disease without esophagitis No date: History of hepatitis C Comment: treated. Not detected 08/201708/24/2007: Insomnia, unspecified 02/14/2015: IV drug abuse (HCC) 06/04/2020: Low serum vitamin B12 09/01/2017: Marijuana use Comment: Urine tox 10/29/2016 08/20/2009: Migraine with aura and without status migrainosus, not intractable 05/24/2020: Moderate episode of recurrent major depressive disorder (HCC) No date: PMH - PAST MEDICAL HISTORY OF Comment: colitis No date: PMH - PAST MEDICAL HISTORY OF Comment: enlarged duct pancreas and GB 02/23/2008: Smoker Comment: Started at age 9; Up to 2+ PPD No date: Thyrotoxicosis without mention of goiter or other cause, without mention of thyrotoxic crisis or storm Comment: Hyperthyroidism 05/10/2015: Well adult exam Comment: Last done: 08/29/2016 PAST SURGICAL HISTORY 11/03/2016: *STRESS TEST PC Comment: normal 04/18/2015: COLONOSCOPY FLX DX W/COLLJ SPEC WHEN PFRMD Comment: Colonoscopy, repeat 5 yrs 08/20/2006: COLONOSCOPY W/BIOPSY SINGLE/MULTIPLE 2000: COLPOSCOPY CERVIX UPPER/ADJACENT VAGINA Comment: Colposcopy 12/27/2014: DILATED RETINAL EXAM W/EVIDENCE OF RETINOPATHY 10/2016: DILATION AND CURETTAGE DXAND/THER NONOBSTETRIC Comment: Dilation AND curettage 03/03/2007: ENDOMETRIAL BX W/WO ENDOCERVIX BX W/O DILAT SPX 07/31/2023: EXT HYSTERECTOMY,W/PARTIAL VAGINECTO 2003: LIG/TRNSXJ FLP TUBE ABDL/VAG APPR UNI/BI Comment: Tubal ligation 1997: PAST SURGICAL HISTORY OF Comment: BENIGN TUMOR REMOVED RIGHT HAND 2012: PAST SURGICAL HISTORY OF Comment: cataract with lens implant, bilat 07/31/2023: PAST SURGICAL HISTORY OF Comment: anterior and posterior vaginal repair, Dr. Molina 2003: RPR UMBILICAL HERNIA < 5 YRS REDUCIBLE Comment: Hernia repair, umbilical <5yr ALLERGIES Patient has no known allergies. MEDICATIONS cholecalciferol, Vitamin D3, (VITAMIN D3) 1,250 mcg (50,000 unit) cap capsule Take 1 capsule by mouth one time a week. escitalopram oxalate (LEXAPRO) 10 mg tablet Take 1 tablet by mouth once daily. albuterol HFA (PROAIR HFA) 90 mcg/actuation inhaler Inhale 2 Puffs as instructed every 4 hours as needed. buprenorphine-naloxone (SUBOXONE) 8-2 mg film Dissolve 2 Film under the tongue once daily. nitrofurantoin monohydrate and macrocrystal (MACROBID) 100 mg capsule Take 1 capsule by mouth two times a day for 5 days. FAMILY HISTORY Problem Relation Age of Onset Diabetes Mother colon cancer Coronary Artery Disease Mother Hypertension Mother Hearing Loss Father SD/ colon cancer Stroke Father Diabetes Father Hypertension Father Aneurysm Father Coronary Artery Disease Maternal Grandmother Hypertension Maternal Grandmother Ischemic Heart Disease Maternal Grandfather Hypertension Paternal Grandmother Coronary Artery Disease Paternal Grandmother Coronary Artery Disease Paternal Grandfa (more content not included)... [facility] 08-04-2024 History of Presen t illness Narrative CC: Patient presents with: UTI: Urgency, dysuria x2 days, L sided groin pain HPI Kami Watts is a 59 year old female who presents with complaint of possible UTI. These symptoms have been present for 2 days. Associated symptoms: burning and urgency Denies: fever, chills, sweats, abdominal pain, and flank pain Treatments: nothing The ROS was otherwise negative. PMH, Medications, labs, allergies, and recent past visits with PCP were reviewed and updated as able. PHYSICAL EXAM: BP 114/78 Pulse 71 Temp 36.6 C (97.8 F) Resp 18 Wt 78.8 kg (173 lb 11.6 oz) LMP 01/15/2017 (Within Days) SpO2 99% BMI 31.17 kg/m General: Well appearing and alert CV: Regular rate and rhythm without obvious murmur Lungs: clear to auscultation bilaterally Back: straight and symmetric Abdomen: soft, nontender, nondistended PAST MEDICAL HISTORY No date: Abnormal glandular Papanicolaou smear of cervix Comment: Abn. Pap smear (cervix) 01/29/2016: Acquired hypothyroidism Comment: Labs 01/2015 normal with no meds. 08/24/2007: Adjustment disorder with depressed mood 07/17/2021: Alcohol abuse Comment: In ER 09/10/21: Sober since May 11, 2021- checked herself in for detox and is in AA 08/29/2016: Alcohol dependence in remission ([facility]) Comment: In treatment 04/06/11 06/28/2010: Anxiety 04/16/2021: Bilateral hip joint arthritis 04/16/2021: Cervical arthritis 08/24/2007: Decreased libido No date: Diabetes mellitus without mention of complication Comment: Diabetes mellitus No date: Diarrhea No date: Drug addiction ([facility]) Comment: In treatment 04/06/11 - prescription pain medication use - NO IV drug use. 05/10/2015: Encounter for Medicare annual wellness exam Comment: Last done: 03/16/24 No date: Esophageal reflux Comment: Gastroesophageal reflux 01/29/2016: Family history of early CAD 01/29/2016: Gastroesophageal reflux disease without esophagitis No date: History of hepatitis C Comment: treated. Not detected 08/201708/24/2007: Insomnia, unspecified 02/14/2015: IV drug abuse (HCC) 06/04/2020: Low serum vitamin B12 09/01/2017: Marijuana use Comment: Urine tox 10/29/2016 08/20/2009: Migraine with aura and without status migrainosus, not intractable 05/24/2020: Moderate episode of recurrent major depressive disorder (HCC) No date: PMH - PAST MEDICAL HISTORY OF Comment: colitis No date: PMH - PAST MEDICAL HISTORY OF Comment: enlarged duct pancreas and GB 02/23/2008: Smoker Comment: Started at age 9; Up to 2+ PPD No date: Thyrotoxicosis without mention of goiter or other cause, without mention of thyrotoxic crisis or storm Comment: Hyperthyroidism 05/10/2015: Well adult exam Comment: Last done: 08/29/2016 PAST SURGICAL HISTORY 11/03/2016: *STRESS TEST PC Comment: normal 04/18/2015: COLONOSCOPY FLX DX W/COLLJ SPEC WHEN PFRMD Comment: Colonoscopy, repeat 5 yrs 08/20/2006: COLONOSCOPY W/BIOPSY SINGLE/MULTIPLE 1999: COLPOSCOPY CERVIX UPPER/ADJACENT VAGINA Comment: Colposcopy 12/27/2014: DILATED RETINAL EXAM W/EVIDENCE OF RETINOPATHY 10/2016: DILATION & CURETTAGE DX&/THER NONOBSTETRIC Comment: Dilation & curettage 03/03/2007: ENDOMETRIAL BX W/WO ENDOCERVIX BX W/O DILAT SPX 07/31/2023: EXT HYSTERECTOMY,W/PARTIAL VAGINECTO 2003: LIG/TRNSXJ FLP TUBE ABDL/VAG APPR UNI/BI Comment: Tubal ligation 1997: PAST SURGICAL HISTORY OF Comment: BENIGN TUMOR REMOVED RIGHT HAND 2012: PAST SURGICAL HISTORY OF Comment: cataract with lens implant, bilat 07/31/2023: PAST SURGICAL HISTORY OF Comment: anterior and posterior vaginal repair, Dr. Molina 2003: RPR UMBILICAL HERNIA < 5 YRS REDUCIBLE Comment: Hernia repair, umbilical <5yr ALLERGIES Patient has no known allergies. MEDICATIONS cholecalciferol, Vitamin D3, (VITAMIN D3) 1,250 mcg (50,000 unit) cap capsule Take 1 capsule by mouth one time a week. escitalopram oxalate (LEXAPRO) 10 mg tablet Take 1 tablet by mouth once daily. albuterol HFA (PROAIR HFA) 90 mcg/actuation inhaler Inhale 2 Puffs as instructed every 4 hours as needed. buprenorphine-naloxone (SUBOXONE) 8-2 mg film Dissolve 2 Film under the tongue once daily. nitrofurantoin monohydrate and macrocrystal (MACROBID) 100 mg capsule Take 1 capsule by mouth two times a day for 5 days. FAMILY HISTORY Problem Relation Age of Onset Diabetes Mother colon cancer Coronary Artery Disease Mother Hypertension Mother Hearing Loss Father SD/ colon cancer Stroke Father Diabetes Father Hypertension Father Aneurysm Father Coronary Artery Disease Maternal Grandmother Hypertension Maternal Grandmother Ischemic Heart Disease Maternal Grandfather Hypertension Paternal Grandmother Coronary Artery Disease Paternal Grandmother Coronary Artery Disease Paternal Grandfather Cancer Sister CERVICAL/colon cancer Cancer Paternal Aunt DOESN'T KNOW TYPE Heart Brother SD Hypertension Daughter Colon Cancer Brother Social History Tobacco Use Smoking status: Every Day Current packs/day: 1.00 Average packs/day: 1 pack/day for 40.0 years (40.0 ttl pk-yrs) Types: Cigarettes Smokeless tobacco: Never Tobacco comments: half a pack a day Vaping Use Vaping status: Never Used Substance Use Topics Alcohol use: No Drug use: Not Currently Comment: sober since june 01 2014-meth ASSESSMENT/PLAN: 1. Dysuria - ICD9: 788.1, ICD10: R30.0 (primary diagnosis) - UA DIP, URINE (POC) - URINE CULTURE 2. Recurrent UTI (urinary tract infection) - ICD9: 599.0, ICD10: N39.0 - NITROFURANTOIN MONOHYDRATE & MACROCRYSTAL 100 MG ORAL CAP Prescription instructions reviewed with patient as applicable. Potential red flag symptoms discussed with the patient. Reviewed appropriate action plan to take if red flag symptoms occur. Patient agreeable to treatment plan. Nnamdi Macdonald APRN.ARIK documented in this encounter [facility] 07-19-2024 Note HNO ID: [id number] Author: SHIRA MACDONALD MA Service: ? Author Type: Education And Outreach Coordinator Type: Progress Notes Filed: 07/19/2024 08:45 Note Text: Scan on 07/16/2024 10:01 AM by Provider, External, PARobyC: Discharge Summary Patient admitted to [facility] for [facility] detox. Patient was started on burpenorphine-Naloxone. Patient to follow up in 1 week with PCP and to follow up with 180. Do you need to see the patient? Patient just had her wellness exam 02/2024. Shira Macdonald MA [facility] 07-19-2024 History of Presen t illness Narrative Scan on 07/16/2024 10:01 AM by Provider, MATT Monreal: Discharge Summary Patient admitted to [facility] for [facility] detox. Patient was started on burpenorphine-Naloxone. Patient to follow up in 1 week with PCP and to follow up with 180. Do you need to see the patient? Patient just had her wellness exam 02/2024. Shira Macdonald MA documented in this encounter [facility] 07-16-2024 Note [facility] Medical Records Department [address] [place] [address] Discharge Summary 07/16/24 0952 MR#: [id number] Acct: [id number] Name: KAMI WATTS Rep #: [id number] : 1965 59 From: Jeffry Rebolledo MD PCP: Dr. Earnest Dueñas MD Status:ADM IN Location: [address] Providers Date of Admission: 07/13/24 Date of Discharge: 07/16/24 Primary Care Physician: Dr. Earnest Dueñas MD Reason For Visit: ETOH Detox Diagnosis Discharge Diagnosis (1) Acute hyperactive alcohol withdrawal delirium: Status: Acute Code(s): F10.931 - Alcohol use, unspecified with withdrawal delirium Plan Patient is a 59-year-old lady with history of chronic alcohol dependence presenting with acute alcohol withdrawal 1. Acute alcohol withdrawal - patient has been admitted to regular nursing floor currently being managed with phenobarb taper for medical stabilization ??? 07/15/2024; patient has tolerated the phenobarb taper well so far. Plan is for patient to follow- up with 180 following discharge. ??? 07/16/2024; plan is for patient to be discharged and to follow-up with 180 as outpatient 2. Previous history of opioid dependence Patient has remained in remission for over a year currently on Suboxone 3. COPD ??? Currently not in exacerbation aerosol treatment as needed 4. Tobacco dependence - Counseled on cessation, offered nicotine patch for tobacco cravings 5. DVT prophylaxis ???Lovenox Time spent in the patient's overall evaluation,decision-making process, review of diagnostic data, adjustment of management, discussion with other providers, nursing nursing and ancillary staff involved in patient's care documentation, 36 Minutes Medications at Discharge Home Medications albuterol sulfate 90 mcg/actuation aerosol inhaler 2 puff inhalation Q6H PRN SOB 01/28/22 buprenorphine 8 mg-naloxone 2 mg sublingual film 1 ea sublingual BID 07/13/24 Physical Exam Narrative GENERAL: Cooperative HEENT: Atraumatic; EYES; Anicteric, Normal Conjunctiva NECK; supple, normal thyroid, RESPIRATORY: Diminished to auscultation CARDIOVASCULAR: Regular S1 S2, GI: soft, normoactive bowel sounds, : No Renal angle tenderness; EXTREMITIES: No edema, no clubbing, MUSCULOSKELETAL: no muscle waisting NEURO: Awake; no lateralizing signs. SKIN: No Rash PSYCH; Flat affect Weight / BMI Weight Weight: 82.361 kg Body Mass Index (BMI) 32.1 ABG / Lab / Microbiology Data 07/13/24 17:14 07/13/24 17:14 D/C Instructions Discharge Diet: No restrictions Discharge Activity: Return to Normal Activity Call your doctor if you observe: Fever of 101 or Higher, Shortness of breath, Fainting spells and Chest pain Meaningful Use Info Meaningful Use Meaningful Use Diagnoses (Choose all that apply): None applicable Ischemic Stroke Statin Dosing Therapy Reference: STATIN DOSE THERAPY REFERENCE: * Patients > 75 years receive moderate or high dose statin therapy. * Patients 75 years or YOUNGER should receive HIGH intensity statin dose unless contraindicated. You will be required to document reason for non-treatment if statin daily dose does not meet guidelines. HIGH DOSE STATIN THERAPY DAILY Atorvastatin > than or = to 40 mg Rosuvastatin > than or = to 20 mg Amlodipine + Atorvastatin > than or = to 2.5/40 mg Ezetimibe + Simvastatin 10/80 mg Simvastatin 80mg Discharge Plan Admission Admit Date/Time: 07/13/24 18:03 Attending Provider: Jeffry Rebolledo Primary Care Provider: Earnest Dueñas Consulting Providers: [place] Discharge Orders/Prescriptions Prescriptions: Continued albuterol sulfate 90 mcg/actuation HFA aerosol inhaler 2 puff inhalation Q6H PRN (Reason: SOB) buprenorphine-naloxone 8-2 mg film 1 ea sublingual BID Referrals / Follow Up: Earnest Dueñas MD [Primary Care Provider] - Within 1 Week Disposition Disposition (needs filled in before D/C Order can be placed): Home, Self Care Charges/Coding Visit Charges Inpatient E M: 22442 Disch Hosp >30min 07/16/24 0954 Cosigner Signature (if applicable): CC: Dr. Jeffry Rebolledo MD; Dr. Earnest Dueñas MD Signed [facility] 07-14-2024 Note HNO ID: [id number] Author: OBEY AGEE LPN Service: ? Author Type: LICENSED NURSE Type: Progress Notes Filed: 07/14/2024 07:39 Note Text: Scan on 07/13/2024 6:18 PM by ProviderRah PA-C: Consultation - Emergency Medicine Scan on 07/13/2024 6:58 PM by Rah Gabriel PA-C [facility] 07-14-2024 History of Presen t illness Narrative Scan on 07/13/2024 6:18 PM by ProviderRah PA-C: Consultation - Emergency Medicine Scan on 07/13/2024 6:58 PM by Rah Gabriel PA-C documented in this encounter [facility] 04-20-2024 Telephone encounter Note Additional attempt to reach patient by phone with no answer. Left VM to return call. 3 attempts to reach patient by phone to reschedule missed appointment with no success. No show letter was also sent to patients home address 04/13 requesting a return call for reschedule. SAMIRA Tony [facility] 04-20-2024 Miscellaneous Notes Additional attempt to reach patient by phone with no answer. Left VM to return call. 3 attempts to reach patient by phone to reschedule missed appointment with no success. No show letter was also sent to patients home address 04/13 requesting a return call for reschedule. SAMIRA Tony Left message to call office. 04/19/2024 10:25 AM. Bridgette Pascal LPN Left message to call office. 04/15/2024 10:51 AM. Bridgette Pascal LPN Patient missed her last appointment. Please attempt to reach out to her to reschedule. Farzana Llamas PA-C documented in this encounter [facility] 04-19-2024 Telephone encounter Note Left message to call office. 04/19/2024 10:25 AM. Bridgette Pascal LPN [facility] 04-15-2024 Telephone encounter Note Left message to call office. 04/15/2024 10:51 AM. Bridgette Pascal LPN [facility] 04-15-2024 Telephone encounter Note Patient missed her last appointment. Please attempt to reach out to her to reschedule. Farzana Llamas PA-C [facility] 03-31-2024 Telephone encounter Note Spoke with pt and information listed below given. Pt verbalizes understanding. Dania Narayanan LPN [facility] 03-31-2024 Miscellaneous Notes Spoke with pt and information listed below given. Pt verbalizes understanding. Dania Narayanan LPN Called and left a voicemail for the Patient to call back and ask for a nurse to receive the providers message. Marcia Souza RN Let patient know mammogram was ok. documented in this encounter [facility] 03-29-2024 Telephone encounter Note Called and left a voicemail for the Patient to call back and ask for a nurse to receive the providers message. Marcia Souza RN [facility] 03-29-2024 Telephone encounter Note Let patient know mammogram was ok. [facility] 03-29-2024 Note Formatting of this n ote might be different from the original. March 29, 2024 PID: [id number] Kami Watts [address] [place] [address] Dear Ms. Watts, We are pleased to inform you that the results of your recent breast imaging exam on 03/28/2024 are normal. Early detection of cancer is very important. We also understand recommendations regarding breast cancer screening are controversial. Please discuss with your primary care provider which strategy is best for you and whether a mammogram is right for you. Your imaging studies and report will be kept on file at [facility] as part of your permanent medical record and are available for your continuing care. Thank you for allowing us to help in meeting your health care needs. Sincerely, Dr. Cee Interpreting Radiologist [facility] (Normal over 40) [facility] 03-29-2024 Miscellaneous Notes March 29, 2024 PID: [id number] Kami Watts [address] [place] [address] Dear Ms. Watts, We are pleased to inform you that the results of your recent breast imaging exam on 03/28/2024 are normal. Early detection of cancer is very important. We also understand recommendations regarding breast cancer screening are controversial. Please discuss with your primary care provider which strategy is best for you and whether a mammogram is right for you. Your imaging studies and report will be kept on file at [facility] as part of your permanent medical record and are available for your continuing care. Thank you for allowing us to help in meeting your health care needs. Sincerely, Dr. Cee Interpreting Radiologist [facility] (Normal over 40) documented in this encounter [facility] 03-28-2024 History of Presen t illness Narrative Radiology Service Progress Note PATIENT NAME: Kami Watts DATE OF SERVICE: March 28, 2024 TIME: 12:57 PM PATIENT IDENTITY VERIFICATION COMPLETED USING TWO (2) IDENTIFIERS: Name and Date of confirmed by patient verbally. FALL SCREENING: Has the patient had 2 falls in the last year or 1 fall with injury or currently using an Ambulatory Assistive Device (Walker, Cane, Wheelchair, Crutches, etc.)? No PATIENT GENDER DATA: Female. status: : No status: NO. PATIENT RELEVANT IMPLANT DATA REVIEWED: Not Applicable PATIENT PRESENTS WITH AN IMPLANTABLE OR ATTACHED FARM LOAN INSPECTOR: No RADIOLOGY DEPARTMENT: Mammography PERIPHERAL IV DATA: Not applicable SIGNED BY: Jayjay Almendarez March 28, 2024 12:57 PM documented in this encounter [facility] 03-23-2024 Telephone encounter Note 1st attempt to contact pt to schedule, left vmail Grace Pacheco March 23, 2024 1:26 PM [facility] 03-23-2024 Miscellaneous Notes 1st attempt to contact pt to schedule, left vmail Grace Pacheco March 23, 2024 1:26 PM Please assist in scheduling PT. Thank you. SAMIRA Tony order placed Patient notified and voiced understanding. She is open to PT. Please place order. Shira Macdonald MA Xray shows moderate arthritis in left hip. Is patient open to trying some Physical Therapy? Farzana Llamas PA-C documented in this encounter [facility] 03-23-2024 Telephone encounter Note Please assist in scheduling PT. Thank you. SAMIRA Tony [facility] 03-23-2024 Telephone encounter Note order placed [facility] 03-23-2024 Telephone encounter Note Patient notified and voiced understanding. She is open to PT. Please place order. Shira Macdonald MA T [facility] 03-23-2024 Telephone encounter Note Xray shows moderate arthritis in left hip. Is patient open to trying some Physical Therapy? Farzana Llamas PA-C [facility] 03-21-2024 History of Presen t illness Narrative This note was created using [employer]che[employer]. Wu Watts is a 58 year old female. 58 year old female with PMH migraine, acid reflux, and thyroid presents for illness. Acute onset of symptoms this morning. Right upper arm +redness Think I was bit by an insect Denies fever or chills. Denies numbness or tingling Denies malaise or fatigue. Denies cough or URI sx Denies new lotions, soaps or medicines History of IV drug usage, denies recent usage. The history is provided by the patient. No a and p technician was used. Rash This is a new problem. The current episode started today. The problem is unchanged. Location: right upper arm. The rash is characterized by redness. She was exposed to a spider bite. Pertinent negatives include no anorexia, congestion, cough, diarrhea, eye pain, facial edema, fatigue, fever, joint pain, nail changes, rhinorrhea, shortness of breath, sore throat or vomiting. Past treatments include nothing. The treatment provided no relief. There is no history of allergies, asthma, eczema or varicella. PAST MEDICAL HISTORY Diagnosis Date Abnormal glandular [...] W/WO ENDOCERVIX BX W/O DILAT SPX 03/03/2007 EXT HYSTERECTOMY,W/PARTIAL VAGINECTO 07/31/2023 LIG/TRNSXJ FLP TUBE ABDL/VAG APPR UNI/BI 2002 Tubal ligation PAST SURGICAL HISTORY OF 1997 BENIGN TUMOR REMOVED RIGHT HAND PAST SURGICAL HISTORY OF 2012 cataract with lens implant, bilat PAST SURGICAL HISTORY OF 07/31/2023 anterior and posterior vaginal repair, Dr. Molina RPR UMBILICAL HERNIA < 5 YRS REDUCIBLE 2002 Hernia repair, umbilical <5yr ALLERGIES Patient has no known allergies. MEDICATIONS cholecalciferol, Vitamin D3, (VITAMIN D3) 1,250 mcg (50,000 unit) cap capsule Take 1 capsule by mouth one time a week. escitalopram oxalate (LEXAPRO) 10 mg tablet Take 1 tablet by mouth once daily. albuterol HFA (PROAIR HFA) 90 mcg/actuation inhaler Inhale 2 Puffs as instructed every 4 hours as needed. buprenorphine-naloxone (SUBOXONE) 8-2 mg film Dissolve 2 Film under the tongue once daily. doxycycline monohydrate 100 mg tablet Take 1 tablet by mouth two times a day for 7 days. FAMILY HISTORY Problem Relation Age of Onset Diabetes Mother colon cancer Coronary Artery Disease Mother Hypertension Mother Hearing Loss Father SD/ colon cancer Stroke Father Diabetes Father Hypertension Father Aneurysm Father Coronary Artery Disease Maternal Grandmother Hypertension Maternal Grandmother Ischemic Heart Disease Maternal Grandfather Hypertension Paternal Grandmother Coronary Artery Disease Paternal Grandmother Coronary Artery Disease Paternal Grandfather Cancer Sister CERVICAL/colon cancer Cancer Paternal Aunt DOESN'T KNOW TYPE Heart Brother SD Hypertension Daughter Colon Cancer Brother Social History Tobacco Use Smoking status: Every Day Packs/day: 1.00 Years: 40.00 Additional pack years: 0.00 Total pack years: 40.00 Types: Cigarettes Smokeless tobacco: Never Tobacco comments: half a pack a day Vaping Use Vaping Use: Never used Substance Use Topics Alcohol use: No Drug use: Not Currently Comment: sober since june 01 2014-meth Review of Systems Constitutional: Positive for appetite change. Negative for activity change, fatigue and fever. HENT: Negative for congestion, rhinorrhea and sore throat. Eyes: Negative for pain, discharge and itching. Respiratory: Negative for cough and shortness of breath. Cardiovascular: Negative for chest pain, palpitations and leg swelling. Gastrointestinal: Negative for abdominal pain, anorexia, diarrhea and vomiting. Musculoskeletal: Negative for arthralgias, back pain, gait problem and joint pain. Skin: Positive for rash. Negative for color change, nail changes and pallor. Allergic/Immunologic: Negative for environmental allergies, food allergies and immunocompromised state. Hematological: Negative for adenopathy. Does not bruise/bleed easily. Psychiatric/Behavioral: Negative for agitation and behavioral problems. Objective BP 122/66 Pulse 74 Temp 36.1 C (97 F) Resp 16 Wt 81.4 kg (179 lb 7.3 oz) LMP 01/15/2017 (Within Days) SpO2 96% BMI 32.20 kg/m Physical Exam Vitals and nursing note reviewed. Constitutional: General: She is not in acute distress. Appearance: Normal appearance. She is normal weight. She is not ill-appearing, toxic-appearing or diaphoretic. HENT: Head: Normocephalic and atraumatic. Right Ear: Ear canal and external ear normal. Left Ear: Ear canal and external ear normal. Nose: Nose normal. No congestion or rhinorrhea. Mouth/Throat: Mouth: Mucous membranes are moist. Pharynx: No oropharyngeal exudate or posterior oropharyngeal erythema. Eyes: General: Right eye: No discharge. Left eye: No discharge. Extraocular Movements: Extraocular movements intact. Conjunctiva/sclera: Conjunctivae normal. Pupils: Pupils are equal, round, and reactive to light. Cardiovascular: Rate and Rhythm: Normal rate and regular rhythm. Pulses: Normal pulses. Heart sounds: Normal heart sounds. No murmur heard. No friction rub. Pulmonary: Effort: Pulmonary effort is normal. No respiratory distress. Breath sounds: Normal breath sounds. No stridor. No wheezing, rhonchi or rales. Chest: Chest wall: No tenderness. Abdominal: General: Abdomen is flat. There is no distension. Palpations: Abdomen is soft. There is no mass. Tenderness: There is no abdominal tenderness. There is no right CVA tenderness, left CVA tenderness, guarding or rebound. Hernia: No hernia is present. Musculoskeletal: General: No swelling, tenderness, deformity or signs of injury. Normal range of motion. Cervical back: Normal range of motion and neck supple. No rigidity. Right lower leg: No edema. Left lower leg: No edema. Lymphadenopathy: Cervical: No cervical adenopathy. Skin: General: Skin is warm and dry. Capillary Refill: Capillary refill takes less than 2 seconds. Coloration: Skin is not jaundiced or pale. Findings: Erythema present. No bruising, lesion or rash. Comments: Right upper deltoid region with irregular cheesh-na like erythema With area of inoculation. +tenderness NO streaking. No abscess No crepitus No vesicles Neurological: General: No focal deficit present. Mental Status: She is alert and oriented to person, place, and time. Cranial Nerves: No cranial nerve deficit. Sensory: No sensory deficit. Motor: No weakness. Coordination: Coordination normal. Gait: Gait normal. Psychiatric: Mood and Affect: Mood normal. Behavior: Behavior normal. Thought Content: Thought content normal. Judgment: Judgment normal. Assessment and Plan ASSESSMENT/PLAN: 1. Cellulitis of right upper arm - ICD9: 682.3, ICD10: L03.113 - Begin treatment with Doxycyline - No lymphangetic streaking, this was defined for patient to watch for and to seek medical care immediately if appears - Area of cellulitis defined with pen, seek further attention if this area continues to enlarge - Follow up for recheck in two days Mima Royal APRN.CANDY PACKER documented in this encounter [facility] 03-17-2024 Telephone encounter Note Pt notified of lab results & instructions, pt voiced understanding. Bridgette Pascal LPN [facility] 03-17-2024 Miscellaneous Notes Pt notified of lab results & instructions, pt voiced understanding. Bridgette Pascal LPN Vit d level is very low. I will send in supplement for her to start. Recheck levels in 2 months. The rest of her labs are all normal. documented in this encounter [facility] 03-17-2024 Telephone encounter Note Vit d level is very low. I will send in supplement for her to start. Recheck levels in 2 months. The rest of her labs are all normal. [facility] 03-16-2024 History of Presen t illness Narrative Radiology Service Progress Note PATIENT NAME: Kami Watts DATE OF SERVICE: March 16, 2024 TIME: 1:43 PM PATIENT IDENTITY VERIFICATION COMPLETED USING TWO (2) IDENTIFIERS: Name and Date of confirmed by patient verbally. FALL SCREENING: Has the patient had 2 falls in the last year or 1 fall with injury or currently using an Ambulatory Assistive Device (Walker, Cane, Wheelchair, Crutches, etc.)? No PATIENT GENDER DATA: Female. status: : No status: NO. PATIENT RELEVANT IMPLANT DATA REVIEWED: Yes PATIENT PRESENTS WITH AN IMPLANTABLE OR ATTACHED FARM LOAN INSPECTOR: No RADIOLOGY DEPARTMENT: General X-ray: Exam(s) Completed: Pelvis X-Ray: Pelvis with Hip Left PERIPHERAL IV DATA: Not applicable SIGNED BY: RT Med(R) March 16, 2024 1:43 PM documented in this encounter [facility] 03-16-2024 Instructions Farzana Llamas PA-C - 03/16/2024 12:44 PM EDT Check with insurance on coverage for bone density given decreased height. Labs today Xray left hip today Schedule mammogram Set up with [facility] for CT lung- lung cancer screening. Cologuard will come in mail. Start lexapro 10mg. Follow up in 1 month. documented in this encounter [facility] 03-16-2024 History of Presen t illness Narrative Chief Complaint Patient presents with: Yearly Exam: Has a area of concern on R Cheek, is red and round, has been there about a year and has increased in size, states it feels dry and itchy HPI Kami Watts is a 58 year old female who presents here today for physical. Patient has not been seen for over a year. Has had increased depression. Continues to smoke a ppd. Left hip and thigh pain for the past year. Worse when sitting. Has had weight gain. Last 10 Encounter Wt Readings: Date: Wt: 03/16/2024 83.6 kg (184 lb 3.2 oz) 02/29/2024 85.9 kg (189 lb 6 oz) 12/01/2023 81.2 kg (179 lb) 11/17/2023 80.3 kg (177 lb) 04/04/2023 69.4 kg (153 lb) 03/23/2023 68.6 kg (151 lb 3.2 oz) 12/15/2022 67 kg (147 lb 12.8 oz) 10/01/2022 72.1 kg (159 lb) 07/25/2022 73.9 kg (163 lb) 06/25/2022 76.7 kg (169 lb) Past medical history, appointments, medications, allergies [...] RETINOPATHY 12/27/2014 DILATION & CURETTAGE DX&/THER NONOBSTETRIC 1982, 10/2016 Dilation & curettage ENDOMETRIAL BX W/WO [...] Disease Mother Hypertension Mother Hearing Loss Father SD/ colon cancer Stroke Father Diabetes Father Hypertension Father Aneurysm Father Coronary Artery Disease Maternal Grandmother Hypertension Maternal Grandmother Ischemic Heart Disease Maternal Grandfather Hypertension Paternal Grandmother Coronary Artery Disease Paternal Grandmother Coronary Artery Disease Paternal Grandfather Cancer Sister CERVICAL/colon cancer Cancer Paternal Aunt DOESN'T KNOW TYPE Heart Brother SD Hypertension Daughter Colon Cancer Brother Patient Allergies ALLERGIES No Known Allergies Current Medications Current Outpatient Medications on File Prior to Visit Medication Sig albuterol HFA (PROAIR HFA) 90 mcg/actuation inhaler Inhale 2 Puffs as instructed every 4 hours as needed. buprenorphine-naloxone (SUBOXONE) 8-2 mg film Dissolve 2 Film under the tongue once daily. benzonatate (TESSALON PERLES) 100 mg capsule Take 1 capsule by mouth three times a day as needed for cough. (Patient not taking: Reported on 03/16/2024) albuterol HFA (PROVENTIL HFA, VENTOLIN HFA) 90 mcg/actuation inhaler Inhale 2 Puffs as instructed every 4 hours as needed for wheezing/shortness of breath. predniSONE (DELTASONE) 10 mg tablet Take 4 tabs daily for 3 days, then 2 tabs daily for 3 days, then 1 tab daily for 3 days with food. (Patient not taking: Reported on 03/16/2024) promethazine (PHENERGAN) 25 mg tablet Take 1 tablet by mouth every 6 hours as needed for nausea/vomiting. (Patient not taking: Reported on 03/16/2024) escitalopram oxalate (LEXAPRO) 10 mg tablet Take 0.5 tablets by mouth once daily for 6 days, THEN 1 tablet once daily. No current facility-administered medications on file prior to visit. Social History Social History Tobacco Use Smoking status: Every Day Packs/day: 1.00 Years: 40.00 Additional pack years: 0.00 Total pack years: 40.00 Types: Cigarettes Smokeless tobacco: Never Tobacco comments: half a pack a day Vaping Use Vaping Use: Never used Substance Use Topics Alcohol use: No Drug use: No Comment: sober since june 01 2014-meth Review of Symptoms REVIEW OF SYSTEMS GENERAL: No weight loss, malaise or fevers HEENT: No changes in hearing or vision, no nose bleeds or other nasal problems NECK: Negative for lumps, goiter, pain and significant neck swelling RESPIRATORY: Negative for cough, hemoptysis, wheezing, COPD, dyspnea or shortness of breath CARDIOVASCULAR: Negative for chest pain, leg swelling, CHF or palpitations GI: Negative for abdominal discomfort, blood in stools or black stools, change in bowel habit, heart burn, nausea, vomiting : No history of dysuria, frequency or incontinence MUSCULOSKELETAL: see hpi SKIN: Negative for lesions, rash, and itching HEMATOLOGY/LYMPHOLOGY: Negative for prolonged bleeding, bruising easily or swollen nodes ENDOCRINE: Negative for cold or heat intolerance, polyuria, polydipsia and goiter NEURO: No history of headaches, syncope, paralysis, seizures or tremors EXAM: BP 112/60 Pulse 88 Resp 16 Ht 159 cm (5' 2.6) Wt 83.6 kg (184 lb 3.2 oz) LMP 01/15/2017 (Within Days) SpO2 97% BMI 33.05 kg/m Last 3 Encounter Ht Readings: Date: Ht: 03/16/2024 159 cm (5' 2.6) 05/24/2020 162.6 cm (5' 4) 04/25/2020 162.6 cm (5' 4) General Appearance: Well appearing, alert, in no acute distress, well-hydrated, well nourished.. Skin: Skin color, texture, turgor normal, no suspicious rashes or lesions. Head: Normocephalic, no masses, lesions, tenderness or abnormalities. Eyes: Anicteric sclera. Pupils are equally round and reactive to light. Extraocular movements are intact. . Ears: External ears normal, canals clear, TMs pearly khoury. Nose/Sinuses: Nares normal, septum midline, mucosa normal, no drainage or sinus tenderness. Oropharynx: Lips, mucosa, and tongue normal, teeth and gums normal, oropharynx normal. Neck: Supple, no adenopathy; thyroid symmetric, normal size, no bruits. Lungs: Lungs clear to auscultation. No wheezing, rhonchi, rales.. Heart: RRR without murmur, gallop, or rubs. No ectopy. Abdomen: Normal abdominal exam, Abdomen soft, non-tender. Bowel sounds normal. No masses, organomegaly. Extremities: No deformities, edema, skin discoloration, clubbing or cyanosis. Good capillary refill. . Musculoskeletal: No joint swelling, deformity, or tenderness. Peripheral Pulses: Normal. Neurologic: Gait normal. Reflexes normal and symmetric. Sensation grossly intact.. Health Maintenance List Pneumococcal Vaccine(1 of 2 - PCV) Never done HPV Testing due on 02/25/2012 Lung Cancer Screening Never done Shingrix Vaccine(1 of 2) Never done DTaP,Tdap,Td Vaccine(1 - Tdap) due on 09/30/2015 Colorectal Cancer Screening due on 04/18/2020 Mammogram Screening due on 07/09/2022 Covid-19 Vaccine( - 2022- season) due on 07/24/2023 Annual PCP Team Chronic Disease Visit due on 12/15/2023 Pap Testing due on 01/03/2024 Influenza Vaccine(Season Ended) due on 07/24/2024 Diabetes Screening due on 12/15/2025 Lipid Screening due on 12/15/2027 Hepatitis B Vaccine Completed Hepatitis C Screening Completed HIV Screening Completed Data reviewed ASSESSMENT/PLAN: 1. Well adult exam - ICD9: V70.0, ICD10: Z00.00 (primary diagnosis) - Counseled on healthy diet and regular exercise - Discussed need and benefit for weight loss. BMI 33.05 kg/(m^2) - Colorectal cancer screening recommended - agrees to Cologuard - Mammogram ordered - exam recommended once yearly - Lung cancer screening recommended - Smoking cessation encouraged; discussed risks to health and quitting strategies. Patient is not ready to quit - COMPLETE BLOOD COUNT - COMPREHENSIVE METABOLIC PANEL 2. Alcohol dependence in remission (HCC) - ICD9: 303.93, ICD10: F10.21 Cont current management - COMPLETE BLOOD COUNT 3. Moderate episode of recurrent major depressive disorder (HCC) - ICD9: 296.32, ICD10: F33.1 Start lexapro. Recheck in 1 month - VITAMIN D 25 HYDROXY 4. Drug addiction (HCC) - ICD9: 304.90, ICD10: F19.20 Cont with 180 5. Migraine with aura and without status migrainosus, not intractable - ICD9: 346.00, ICD10: G43.109 stable 6. Smoker - ICD9: 305.1, ICD10: F17.200 - Cessation encouraged. - Physiologic and physical aspects of tobacco addiction as well as strategies for quitting were discussed. - Counseling was given focusing on the harmful effects of this addiction especially given the patient's medical condition(s) which will be worsened because of the chemicals in tobacco. - COMPLETE BLOOD COUNT - COMPREHENSIVE METABOLIC PANEL 7. Actinic keratosis - ICD9: 702.0, ICD10: L57.0 Discussed options, risks and benefits of AK treatments including observation, OTC preps, prescription medication, cryo, and surgery. Patient agreed to proceed with cryotherapy. 3 freeze/thaw cycles with Cry-AC liquid nitrogen spray gun to right cheek. Patient tolerated procedure well. Care instructions given. 8. Acquired hypothyroidism - ICD9: 244.9, ICD10: E03.9 - check TSH and free T4 today - THYROID STIMULATING HORMONE - T4 FREE/FREE THYROXINE 9. Screening for diabetes mellitus - ICD9: V77.1, ICD10: Z13.1 - HEMOGLOBIN A1C 10. Encounter for lipid screening for cardiovascular disease - ICD9: V77.91, V81.2, ICD10: Z13.220, Z13.6 - LIPID PANEL, NONFASTING 11. Low serum vitamin B12 - ICD9: 266.2, ICD10: E53.8 - VITAMIN B12 12. Anxiety - ICD9: 300.00, ICD10: F41.9 See above - VITAMIN D 25 HYDROXY - MAGNESIUM 13. Encounter for immunization - ICD9: V03.89, ICD10: Z23 - ZOSTER VACCINE, RECOMBINANT (SHINGRIX) - ZOSTER VACCINE, RECOMBINANT (SHINGRIX) - PNEUMOCOCCAL VACCINE, 20 VALENT (PREVNAR 20) 14. Screening for colon cancer - ICD9: V76.51, ICD10: Z12.11 - COLOGUARD 15. Encounter for screening for malignant neoplasm of breast, unspecified screening modality - ICD9: V76.10, ICD10: Z12.39 - DAYNA SCREENING 16. Left hip pain - ICD9: 719.45, ICD10: M25.552 Check xray Consider Physical Therapy. - XR HIP GENERAL 3V PELV/AP/LAT LEFT Follow up in 1 month. Farzana Llamas PA-C documented in this encounter [facility] 02-29-2024 Miscellaneous Notes Patient notified.Dottie Oconnell LPN Negative for COVID flu RSV documented in this encounter [facility] 02-29-2024 Miscellaneous Notes Patient returned call, notified of results as listed below, verbalized understanding of instructions given. Belle Fonseca MA CXR negative Attempted to reach out and notify patient. Left VM to return call. If no return call, please try calling again on 03/01/24 documented in this encounter [facility] 02-29-2024 History of Presen t illness Narrative Radiology Service Progress Note PATIENT NAME: Kami Watts DATE OF SERVICE: February 29, 2024 TIME: 10:27 AM PATIENT IDENTITY VERIFICATION COMPLETED USING TWO (2) IDENTIFIERS: Name and Date of confirmed by patient verbally. FALL SCREENING: Has the patient had 2 falls in the last year or 1 fall with injury or currently using an Ambulatory Assistive Device (Walker, Cane, Wheelchair, Crutches, etc.)? No PATIENT GENDER DATA: Female. status: : No status: NO. PATIENT RELEVANT IMPLANT DATA REVIEWED: Not Applicable PATIENT PRESENTS WITH AN IMPLANTABLE OR ATTACHED FARM LOAN INSPECTOR: No RADIOLOGY DEPARTMENT: General X-ray: Exam(s) Completed: Chest X-Ray PERIPHERAL IV DATA: Not applicable SIGNED BY: RT Akash(R) February 29, 2024 10:27 AM documented in this encounter [facility] 02-29-2024 History of Presen t illness Narrative This note was created using [employer]. Wu Watts is a 58 year old female. 58 year old female with PMH acid reflux and migraines presents for complaints of illness. Acute onset 2 days ago Started with nasal congestion +sore throat +coughing +wheezig +headache +body aches +chills States that she also has been experiencing eye discharge This morning she woke up matted eyelids +bilateral eye redness Denies feelings of FB Denies fever Denies emesis. Denies diarrhea. She wears glasses, but does not wear contact lens Has used Tylenol Arthrtis. The history is provided by the patient. No a and p technician was used. URI She complains of cough, sputum production and wheezing. There is no chest tightness, difficulty breathing, frequent throat clearing, hemoptysis, hoarse voice or shortness of breath. This is a new problem. Episode onset: 2 days ago. The problem occurs constantly. The problem has been unchanged. The cough is non-productive. Associated symptoms include headaches, malaise/fatigue, myalgias, nasal congestion, postnasal drip and a sore throat. Pertinent negatives include no appetite change, chest pain, dyspnea on exertion, ear congestion, ear pain, fever, heartburn, orthopnea, PND, rhinorrhea, sneezing, sweats, trouble swallowing or weight loss. Her symptoms are aggravated by nothing. Her symptoms are alleviated by nothing. She reports no improvement on treatment. Risk factors for lung disease include smoking/tobacco exposure. There is no history of asthma, bronchiectasis, bronchitis, COPD, emphysema or pneumonia. PAST MEDICAL HISTORY Diagnosis Date Abnormal glandular [...] every 6 hours as needed for nausea/vomiting. albuterol HFA (PROAIR HFA) 90 mcg/actuation inhaler Inhale 2 Puffs as instructed every 4 hours as needed. buprenorphine-naloxone (SUBOXONE) 8-2 mg film Dissolve 2 Film under the tongue once daily. benzonatate (TESSALON PERLES) 100 mg capsule Take 1 capsule by mouth three times a day as needed for cough. albuterol HFA (PROVENTIL HFA, VENTOLIN HFA) 90 mcg/actuation inhaler Inhale 2 Puffs as instructed every 4 hours as needed for wheezing/shortness of breath. Inhalational Spacing Device 1 Device one time only for 1 dose. predniSONE (DELTASONE) 10 mg tablet Take 4 tabs daily for 3 days, then 2 tabs daily for 3 days, then 1 tab daily for 3 days with food. trimethoprim-polymyxin (POLYTRIM) 10,000 unit- 1 mg/mL ophthalmic solution Use 1 Drop in both eyes every 4 hours for 7 days. escitalopram oxalate (LEXAPRO) 10 mg tablet Take 0.5 tablets by mouth once daily for 6 days, THEN 1 tablet once daily. FAMILY HISTORY Problem Relation Age of Onset Diabetes Mother colon cancer Coronary Artery Disease Mother Hypertension Mother Hearing Loss Father SD/ colon cancer Stroke Father Diabetes Father Hypertension Father Aneurysm Father Coronary Artery Disease Maternal Grandmother Hypertension Maternal Grandmother Ischemic Heart Disease Maternal Grandfather Hypertension Paternal Grandmother Coronary Artery Disease Paternal Grandmother Coronary Artery Disease Paternal Grandfather Cancer Sister CERVICAL/colon cancer Cancer Paternal Aunt DOESN'T KNOW TYPE Heart Brother SD Hypertension Daughter Colon Cancer Brother Social History Tobacco Use Smoking status: Every Day Packs/day: 0.50 Years: 40.00 Additional pack years: 0.00 Total pack years: 20.00 Types: Cigarettes Smokeless tobacco: Never Tobacco comments: half a pack a day Vaping Use Vaping Use: Never used Substance Use Topics Alcohol use: No Drug use: No Comment: 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 Negative for appetite change, fever and weight loss. HENT: Positive for congestion, postnasal drip and sore throat. Negative for ear pain, hoarse voice, rhinorrhea, sneezing and trouble swallowing. Eyes: Negative for pain, discharge, redness and itching. Respiratory: Positive for cough, sputum production and wheezing. Negative for apnea, hemoptysis, chest tightness and shortness of breath. Cardiovascular: Negative for chest pain, dyspnea on exertion and PND. Gastrointestinal: Negative for abdominal pain, diarrhea, heartburn, nausea and vomiting. Musculoskeletal: Positive for myalgias. Skin: Negative for color change, pallor, rash and wound. Allergic/Immunologic: Negative for environmental allergies, food allergies and immunocompromised state. Neurological: Positive for headaches. Negative for dizziness and facial asymmetry. Hematological: Negative for adenopathy. Does not bruise/bleed easily. Psychiatric/Behavioral: Negative for agitation and behavioral problems. Objective BP 146/84 Pulse 69 Temp 36.6 C (97.8 F) (Tympanic) Resp 18 Wt 85.9 kg (189 lb 6 oz) LMP 01/15/2017 (Within Days) SpO2 96% BMI 32.51 kg/m Physical Exam Vitals and nursing note reviewed. Constitutional: General: She is not in acute distress. Appearance: Normal appearance. She is normal weight. She is not ill-appearing, toxic-appearing or diaphoretic. HENT: Head: Normocephalic and atraumatic. Right Ear: Ear canal and external ear normal. Left Ear: Ear canal and external ear normal. Nose: Congestion present. No rhinorrhea. Mouth/Throat: Mouth: Mucous membranes are moist. Pharynx: Posterior oropharyngeal erythema present. No oropharyngeal exudate. Eyes: General: Right eye: No discharge. Left eye: No discharge. Extraocular Movements: Extraocular movements intact. Conjunctiva/sclera: Conjunctivae normal. Pupils: Pupils are equal, round, and reactive to light. Comments: B/L conjunctiva slightly injected Scant marginal eyelid debris EOM intact Vision grossly intact Cardiovascular: Rate and Rhythm: Normal rate and regular rhythm. Pulses: Normal pulses. Heart sounds: Normal heart sounds. No murmur heard. No friction rub. Pulmonary: Effort: Pulmonary effort is normal. No respiratory distress. Breath sounds: Normal breath sounds. No stridor. No wheezing, rhonchi or rales. Comments: Harsh cough with deep inspiration Chest: Chest wall: No tenderness. Abdominal: General: Abdomen is flat. There is no distension. Palpations: Abdomen is soft. There is no mass. Tenderness: There is no abdominal tenderness. There is no right CVA tenderness, left CVA tenderness, guarding or rebound. Hernia: No hernia is present. Musculoskeletal: General: No swelling, tenderness, deformity or signs of injury. Normal range of motion. Cervical back: Normal range of motion and neck supple. No rigidity. Right lower leg: No edema. Left lower leg: No edema. Lymphadenopathy: Cervical: Cervical adenopathy present. Skin: General: Skin is warm and dry. Capillary Refill: Capillary refill takes less than 2 seconds. Coloration: Skin is not jaundiced or pale. Findings: No bruising, erythema, lesion or rash. Neurological: General: No focal deficit present. Mental Status: She is alert and oriented to person, place, and time. Cranial Nerves: No cranial nerve deficit. Sensory: No sensory deficit. Motor: No weakness. Coordination: Coordination normal. Gait: Gait normal. Psychiatric: Mood and Affect: Mood normal. Behavior: Behavior normal. Thought Content: Thought content normal. Judgment: Judgment normal. Assessment and Plan ASSESSMENT/PLAN: 1. URI, acute - ICD9: 465.9, ICD10: J06.9 (primary diagnosis) X 2 days No red flags - Discussed viral etiology and rationale for treatment. - Symptomatic treatment with prn analgesia - Supportive care with fluids and rest - The patient may also use OTC cough and cold meds as needed, nasal saline gtts and suction prn, and RX Albuterol inhaler, RX Tessalon Perles, RX Prednisone taper . - Follow up in 3-5 days if symptoms persist or sooner if worsening of symptoms - COVID & INFLUENZA A/B & RSV NAAT, ROUTINE - XR CHEST 2V FRONTAL/LAT 2. Acute cough - ICD9: 786.2, ICD10: R05.1 X 2 days History of tobacco usage No red flags - COVID & INFLUENZA A/B & RSV NAAT, ROUTINE - XR CHEST 2V FRONTAL/LAT 3. Conjunctivitis of both eyes, unspecified conjunctivitis type - ICD9: 372.30, ICD10: H10.9 Acute onset today upon awakening Suspect Viral - see medication orders - course and contagiousness issues discussed, including hand washing. - Instructed to call if high fever, development of periorbital redness or swelling, eye pain, visual changes, concerns or if symptoms persist. Mima Royal APRN.ARIK documented in this encounter [facility] 07-31-2023 History of Presen t illness Narrative View External Procedures - [ID [id number]] documented in this encounter [facility] 07-28-2023 History of Presen t illness Narrative Scan on 07/28/2023 1:35 PM by ProviderRah PA-C: Chemistry Scan on 07/28/2023 1:05 PM by ProviderRah, PAPaul: Hematology documented in this encounter [facility] 04-05-2023 Miscellaneous Notes Patient notified. Verbalized understanding. ----- Message from Beverly Kovacs APRN.CANDY PACKER sent at 04/05/2023 8:05 AM EDT ----- Please advise patient the COVID and flu test was negative. documented in this encounter [facility] 04-04-2023 Instructions Beverly Kovacs APRN.CNP - 04/04/2023 10:17 AM EDT ASSESSMENT/PLAN: 1. [...] the health department. documented in this encounter [facility] 04-04-2023 History of Presen t illness Narrative Subjective HPI Kami Watts is a 57 [...] Disease Mother Hypertension Mother Hearing Loss Father SD/ colon cancer Stroke Father Diabetes Father Hypertension Father Aneurysm Father Coronary Artery Disease Maternal Grandmother Hypertension Maternal Grandmother Ischemic Heart Disease Maternal Grandfather Hypertension Paternal Grandmother Coronary Artery Disease Paternal Grandmother Coronary Artery Disease Paternal Grandfather Cancer Sister CERVICAL/colon cancer Cancer Paternal Aunt DOESN'T KNOW TYPE Heart Brother SD Hypertension Daughter Colon Cancer Brother Social History [...] Beverly Kovacs APRN.ARIK documented in this encounter [facility] 03-24-2023 Miscellaneous Notes Patient given results and verbalized understanding of instructions given. Dalia Farris Please notify that covid/flu testing negative. Continue with plan of care as discussed during visit. documented in this encounter [facility] 03-23-2023 Instructions MARIO Mcgee - 03/23/2023 [...] thin out mucus documented in this encounter [facility] 03-23-2023 History of Presen t illness Narrative This note was created using [employer]. Wu Watts is a 57 year old [...] Disease Mother Hypertension Mother Hearing Loss Father SD/ colon cancer Stroke Father Diabetes Father Hypertension Father Aneurysm Father Coronary Artery Disease Maternal Grandmother Hypertension Maternal Grandmother Ischemic Heart Disease Maternal Grandfather Hypertension Paternal Grandmother Coronary Artery Disease Paternal Grandmother Coronary Artery Disease Paternal Grandfather Cancer Sister CERVICAL/colon cancer Cancer Paternal Aunt DOESN'T KNOW TYPE Heart Brother SD Hypertension Daughter Colon Cancer Brother Social History [...] evaluation. MARIO Mcgee documented in this encounter [facility] 01-09-2023 History of Presen t illness Narrative Scan on 01/09/2023 9:53 AM by External Provider: Consultation - Please review. Shira Macdonald MA documented in this encounter [facility] 12-16-2022 Miscellaneous Notes Pt called and is notified of providers results. Pt voices understanding. Marcia Souza RN Let patient know that her labs all look okay. A1c is 5.7% which is border of normal and prediabetes. Farzana Llamas PA-C documented in this encounter [facility] 12-15-2022 History of Presen t illness [...] Disease Mother Hypertension Mother Hearing Loss Father SD/ colon cancer Stroke Father Diabetes Father Hypertension Father Aneurysm Father Coronary Artery Disease Maternal Grandmother Hypertension Maternal Grandmother Ischemic Heart Disease Maternal Grandfather Hypertension Paternal Grandmother Coronary Artery Disease Paternal Grandmother Coronary Artery Disease Paternal Grandfather Cancer Sister CERVICAL/colon cancer Cancer Paternal Aunt DOESN'T KNOW TYPE Heart Brother SD Hypertension Daughter Colon Cancer Brother Patient Allergies [...] ICD10: Z13.220, Z13.6 - LIPID PANEL, NONFASTING Farzana Llamas PA-C documented in this encounter [facility] 10-01-2022 Instructions Lou Yu APRN.CANDY PACKER - 10/01/2022 2:[address] Cydney Molina uro-gynecology at [facility]. documented in this encounter [facility] 10-01-2022 History of Presen t illness Narrative Audio Production Instructor offered: Patient declines. Kami Watts is a 57 year old female who presents for problem visit prolapse hanging out of vagina HPI: Known rectocele - was referred to uro-gynecology by Dr Macdonald in 2020 but did not follow-up. A [...] Live Births0 Comment: One set of twins [employer] History LMP: 01/15/2017 (Within Days), Postmenopausal Age at Menarche: Age at First : Age at Menopause: [employer] History Comments: Sexual Activity: Not Currently; Male; [...] Disease Mother Hypertension Mother Hearing Loss Father SD/ colon cancer Stroke Father Diabetes Father Hypertension Father Aneurysm Father Coronary Artery Disease Maternal Grandmother Hypertension Maternal Grandmother Ischemic Heart Disease Maternal Grandfather Hypertension Paternal Grandmother Coronary Artery Disease Paternal Grandmother Coronary Artery Disease Paternal Grandfather Cancer Sister CERVICAL/colon cancer Cancer Paternal Aunt DOESN'T KNOW TYPE Heart Brother SD Hypertension Daughter Colon Cancer Brother Social History [...] external genitalia normal, normal Bartholin's glands, urethra, [place]'s glands, no vulvar lesions, no cervical lesions, [...] surgical management. Prefers to see a local uro-family medicine chair. Consult placed and pt given information for Dr Molina. Lou Yu APRN.CNP I spent a total of 25 minutes on the date of the service which included preparing to see the patient, [id number] patient care, completing clinical documentation, obtaining and/or reviewing separately obtained history, performing a medically appropriate examination, counseling and educating the patient/family/caregiver, and ordering medications, tests, or procedures. documented in this encounter [facility] 07-25-2022 History of Presen t illness Narrative Chief Complaint Patient presents with: Depression: Discuss medications for depression HPI Kami Watts is a 57 year old female who presents here today for Above Complaints.. Patient has been having continued issues with depression/anxiety. She was scheduled to start with the [facility] IOP back in march but [...] Disease Mother Hypertension Mother Hearing Loss Father SD/ colon cancer Stroke Father Diabetes Father Hypertension Father Aneurysm Father Coronary Artery Disease Maternal Grandmother Hypertension Maternal Grandmother Ischemic Heart Disease Maternal Grandfather Hypertension Paternal Grandmother Coronary Artery Disease Paternal Grandmother Coronary Artery Disease Paternal Grandfather Cancer Sister CERVICAL/colon cancer Cancer Paternal Aunt DOESN'T KNOW TYPE Heart Brother SD Hypertension Daughter Colon Cancer Brother Patient Allergies [...] Start lexapro Follow up in 1 month. Farzana Llamas PA-C documented in this encounter [facility] 06-25-2022 Instructions Farzana Llamas PA-C - 06/25/2022 7:44 AM EDT Will get an opinion from surgeon to see if they feel a possible hernia in that area. Could consider further testing if worsening or not resolving. documented in this encounter [facility] 06-25-2022 History of Presen t illness [...] Disease Mother Hypertension Mother Hearing Loss Father SD/ colon cancer Stroke Father Diabetes Father Hypertension Father Aneurysm Father Coronary Artery Disease Maternal Grandmother Hypertension Maternal Grandmother Ischemic Heart Disease Maternal Grandfather Hypertension Paternal Grandmother Coronary Artery Disease Paternal Grandmother Coronary Artery Disease Paternal Grandfather Cancer Sister CERVICAL/colon cancer Cancer Paternal Aunt DOESN'T KNOW TYPE Heart Brother SD Hypertension Daughter Colon Cancer Brother Patient Allergies [...] and EMG - CONSULT TO GENERAL SURGERY Farzana Llamas PA-C documented in this encounter [facility] 06-22-2022 History of Presen t illness Narrative Patient presents with express care triage with right lower abdominal numbness for months. She has not seen pcp regarding this per patient. This has not changed recently. She was in ER a few days ago for right arm pain. No abdominal pain today. No fever. No urinary symptoms. Discussed I would recommend pcp for this. Patient scheduled. documented in this encounter [facility] 04-16-2022 History of Presen t illness Narrative Chief Complaint Patient presents with: Depression HPI Kami Watts is a 56 year old female who presents here today for Above Complaints.. Patient has been having increasing anxiety over the past couple months. Getting to the point that she can't get things done and effecting interactions with other. She is set to start [facility] IOP tomorrow. Has been having [...] RETINOPATHY 12/27/2014 DILATION & CURETTAGE DX&/THER NONOBSTETRIC 1982, 10/2016 Dilation & curettage ENDOMETRIAL BX W/WO [...] Disease Mother Hypertension Mother Hearing Loss Father SD/ colon cancer Stroke Father Diabetes Father Hypertension Father Aneurysm Father Coronary Artery Disease Maternal Grandmother Hypertension Maternal Grandmother Ischemic Heart Disease Maternal Grandfather Hypertension Paternal Grandmother Coronary Artery Disease Paternal Grandmother Coronary Artery Disease Paternal Grandfather Cancer Sister CERVICAL/colon cancer Cancer Paternal Aunt DOESN'T KNOW TYPE Heart Brother SD Hypertension Daughter Colon Cancer Brother Patient Allergies [...] - EXERCISE STRESS ECG (WITHOUT IMAGING) 2. HENRANDEZ (dyspnea on exertion) - ICD9: 786.09, ICD10: [...] enter into the intensive outpatient program through [facility] Will let them start medication management. - EXERCISE STRESS ECG (WITHOUT IMAGING) Farzana Llamas PA-C documented in this encounter [facility] 03-06-2022 History of Presen t illness [...] Disease Mother Hypertension Mother Hearing Loss Father SD/ colon cancer Stroke Father Diabetes Father Hypertension Father Aneurysm Father Coronary Artery Disease Maternal Grandmother Hypertension Maternal Grandmother Ischemic Heart Disease Maternal Grandfather Hypertension Paternal Grandmother Coronary Artery Disease Paternal Grandmother Coronary Artery Disease Paternal Grandfather Cancer Sister CERVICAL/colon cancer Cancer Paternal Aunt DOESN'T KNOW TYPE Heart Brother SD Hypertension Daughter Colon Cancer Brother Social History [...] further evaluation care. Patient will proceed to [facility] for further evaluation and care. Earnest Ramirez APRN.ARIK documented in this encounter [facility] 04-13-2021 History of Presen t illness Narrative Radiology Service Progress Note PATIENT NAME: Kami Watts DATE OF SERVICE: April 13, 2021 TIME: 10:18 AM PATIENT IDENTITY VERIFICATION COMPLETED USING TWO (2) IDENTIFIERS: Name and Date of confirmed by patient verbally. FALL SCREENING: Has the patient had 2 falls in the last year or 1 fall with injury or currently using an Ambulatory Assistive Device (Walker, Cane, Wheelchair, Crutches, etc.)? No PATIENT GENDER DATA: Female. status: : No status: NO. PATIENT RELEVANT IMPLANT DATA REVIEWED: Not Applicable RADIOLOGY DEPARTMENT: General X-ray: Exam(s) Completed: Spine X-Ray(s): Cervical AP / LAT / OBL Pelvis X-Ray: Pelvis with Hip Bilateral PERIPHERAL IV DATA: Not applicable SIGNED BY: RT Renard(R) April 13, 2021 10:18 AM documented in this encounter [facility] Evaluation + Plan note No data available for this section [facility] Evaluation note Diagnosis Onset Date Abdominal pain acute [facility] Work Phone: Evaluation note* Diagnosis Right flank pain- Primary Abdominal pain, unspecified site [facility] [place] [facility]* Diagnosis Chest pain, unspecified type- Primary HERNANDEZ (dyspnea on exertion) Other dyspnea and respiratory abnormality Palpitations Current moderate episode of major depressive disorder, unspecified whether recurrent (HCC) documented [facility] [place] noteNo assessment information availableWBl[facility] Work Phone: Evaluation note* Diagnosis APPOINTMENT CANCELLED- Primary [facility] [place] [facility]* Diagnosis Right lower quadrant abdominal pain- Primary Abdominal pain, right lower quadrant [facility] [place] [facility]* Diagnosis Moderate episode of recurrent major depressive disorder (HCC)- Primary [facility] [place] [facility]* Diagnosis Encounter for screening mammogram for breast cancer [facility] [place] [facility]* Diagnosis Cystocele, midline- Primary Rectocele [facility] [place] [facility]* Diagnosis EDER (generalized anxiety disorder)- Primary Generalized anxiety disorder Moderate episode of recurrent major depressive disorder (HCC) Weight loss Loss of weight Screening for diabetes mellitus Encounter for lipid screening for cardiovascular disease Screening for lipoid disorders [facility] [place] [facility]* Diagnosis URI, acute- Primary Acute upper respiratory infections of unspecified site Sore throat Acute pharyngitis [facility] [place] [facility]* Diagnosis Sore throat- Primary Acute pharyngitis Flu-like symptoms Other general symptoms Nausea and vomiting, unspecified vomiting type documented in this encounter [facility] note* Diagnosis Encounter for screening mammogram for breast cancer [facility] [place] [facility]* Diagnosis URI, acute- Primary Acute upper respiratory infections of unspecified site Acute cough Conjunctivitis of both eyes, unspecified conjunctivitis type [facility] Diagnosis Encounter for screening for malignant neoplasm of breast, unspecified screening modality Alcohol dependence in remission (HCC) Other and unspecified alcohol dependence, in remission Moderate episode of recurrent major depressive disorder (HCC) Drug addiction (HCC) Unspecified drug dependence, unspecified Migraine with aura and without status migrainosus, not intractable Migraine with aura, without mention of intractable migraine without mention of status migrainosus Smoker Tobacco use disorder Actinic keratosis Acquired hypothyroidism Unspecified hypothyroidism Screening for diabetes mellitus Encounter for lipid screening for cardiovascular disease Screening for lipoid disorders Low serum vitamin B12 Anxiety Anxiety state, unspecified Encounter for immunization Need for other specified prophylactic vaccination against single bacterial disease Screening for colon cancer Special screening for malignant neoplasms, colon Left hip pain Pain in joint, pelvic region and thigh [facility] Vitamin D deficiency- Primary Unspecified vitamin D deficiency [facility] [place] [facility]* Diagnosis Cellulitis of right upper arm- Primary Cellulitis and abscess of upper arm and forearm [facility] [place] [facility]* Diagnosis Encounter for screening for malignant neoplasm of breast, unspecified screening modality [facility] Diagnosis Left hip pain- Primary Pain in joint, pelvic region and thigh [facility] [place] [facility]* Diagnosis Left hip pain Pain in joint, pelvic region and thigh [facility] [place] [facility] Diagnosis URI, acute Acute upper respiratory infections of unspecified site Acute cough [facility] [place] [facility] Diagnosis Dysuria- Primary Recurrent UTI (urinary tract infection) Urinary tract infection, site not specified [facility] [place] [facility]* Diagnosis Neck pain Cervicalgia Hip pain, bilateral Pain in joint, pelvic region and thigh [facility] Diagnosis Sinobronchitis- Primary Unspecified sinusitis (chronic) [facility] [place] [facility]* Diagnosis Well adult exam- Primary Routine general medical examination at a health care facility Vitamin D deficiency Unspecified vitamin D deficiency Low serum vitamin B12 Medication management Encounter for long-term (current) use of other medications Acquired hypothyroidism Unspecified hypothyroidism Screening for diabetes mellitus Moderate episode of recurrent major depressive disorder (HCC) Migraine with aura and without status migrainosus, not intractable Migraine with aura, without mention of intractable migraine without mention of status migrainosus History of hepatitis C Personal history of other infectious and parasitic disease Gastroesophageal reflux disease without esophagitis Esophageal reflux Insomnia, unspecified type Left hip pain Pain in joint, pelvic region and thigh Encounter for screening mammogram for breast cancer Encounter for screening for lung cancer [facility] [place] [facility] Diagnosis Vitamin D deficiency- Primary Unspecified vitamin D deficiency [facility] Diagnosis Encounter for screening mammogram for breast cancer [facility] Phone[facility] Hospital Discharge instructions No data available for this section [facility] Progress note No data available for this section [facility] Reason for referral (narrative)* Diagnostic Procedure Only (Routine) - Pending Review Specialty Diagnoses / Procedures Referred By Contac t Referred To Contact [facility] Diagnoses Encounter for screening mammogram for breast cancer Procedures DAYNA SCREENING SCREENING MAMMOGRAPHY BI 2-VIEW BREAST INC CAD Earnest Dueñas MD [facility] [place] [address] [facility] [address] [place] [address] Referral ID Status Reason Start Date Expiration Date Visits Requested Visits Authorized [id number] Pending Review Auto-Generat ed Referral 08/20/2022 09/19/2023 1 1 [facility] for referral (narrative)* Diagnostic Procedure Only (Routine) - Pending Review Specialty Diagnoses / Procedures Referred By Saima toscano Referred To Contact [facility] Diagnoses Encounter for screening mammogram for breast cancer Procedures DAYNA SCREENING SCREENING MAMMOGRAPHY BI 2-VIEW BREAST INC CAD Earnest Dueñas MD [address] [place] [address] [facility] [address] [place]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 Start Date End Date Earnest Dueñas MD [address] [place] [address] PCP - General Family Medicine 01/17/16 Branch Maker Relationship Specialty Start Date End Date Earnest Dueñas MD [address] [place] [address] PCP - General Family Medicine 01/17/16 Branch Maker Relationship Specialty Start Date End Date Earnest Dueñas MD [address] [place] [address] PCP - General Family Medicine 01/17/16 Branch Maker Relationship Specialty Start Date End Date Earnest Dueñas MD [address] [place] [address] PCP - General Family Medicine 01/17/16 Branch Maker Relationship Specialty Start Date End Date Earnest Dueñas MD [address] [place] [address] PCP - General Family Medicine 01/17/16 Branch Maker Relationship Specialty Start Date End Date Earnest Dueñas MD [address] [place] [address] PCP - General Family Medicine 01/17/16 Branch Maker Relationship Specialty Start Date End Date Earnest Dueñas MD [address] [place] [address] PCP - General Family Medicine 01/17/16 Branch Maker Relationship Specialty Start Date End Date Earnest Dueñas MD [address] [place] [address] PCP - General Family Medicine 01/17/16 Branch Maker Relationship Specialty Start Date End Date Earnest Dueñas MD [address] [place] [address] PCP - General Family Medicine 01/17/16 Branch Maker Relationship Specialty Start Date End Date Earnest Dueñas MD [address] [place] [address] PCP - General Family Medicine 01/17/16 Branch Maker Relationship Specialty Start Date End Date Earnest Dueñas MD [address] [place] [address] PCP - General Family Medicine 01/17/16 Branch Maker Relationship Specialty Start Date End Date Earnest Dueñas MD [address] [place] [address] PCP - General Family Medicine 01/17/16 Branch Maker Relationship Specialty Start Date End Date Earnest Dueñas MD [address] [place] [address] PCP - General Family Medicine 01/17/16 Branch Maker Relationship Specialty Start Date End Date Earnest Dueñas MD [address] [place] [address] PCP - General Family Medicine 01/17/16 Branch Maker Relationship Specialty Start Date End Date Earnest Dueñas MD [address] [place] [address] PCP - General Family Medicine 01/17/16 Branch Maker Relationship Specialty Start Date End Date Earnest Dueñas MD [address] [place] [address] PCP - General Family Medicine 01/17/16 Joan Talley, LAUREN.CANDY PACKER [address] [place] [address] [employer] [facility] 10/29/24 Farzana Llamas PA-C [address] [place] [address] [employer] [facility] 10/29/24 Branch Maker Relationship Specialty Start Date End Date Earnest Dueñas MD [address] [place] [address] PCP - General Family Medicine 01/17/16 Joan Talley, LAUREN.CANDY PACKER [address] [place] [address] [employer] [facility] 10/29/24 Farzana Llamas PA-C [address] [place] [address] [employer] [facility] 10/29/24 Branch Maker Relationship Specialty Start Date End Date Earnest Dueñas MD [address] [place] [address] PCP - General Family Medicine 01/17/16 Joan Talley, LAUREN.CANDY PACKER [address] [place] [id number] [employer] [facility] 10/29/24 Farzana Llamas PA-C [address] [place] [address] [employer] [facility] 10/29/24 Branch Maker Relationship Specialty Start Date End Date Earnest Dueñas [place] [address] [place] [address] PCP - General Family Medicine 01/17/16 Joan Talley APRN.CANDY PACKER [address] [place] [address] [employer] [facility] 10/29/24 Farzana Llamas PA-C [address] [place] [address] [employer] [facility] 10/29/24 Branch Maker Relationship Specialty Start Date End Date Earnest Dueñas MD [address] [place] [address] PCP - General Family Medicine 02/27/25 Joan Talley, STOCK CONTROL CLERK.CANDY PACKER [address] [place] [address] [employer] [facility] 10/29/24 Farzana Llamas PA-C [address] [place] [address] [facility] 10/29/24 Branch Maker Relationship Specialty Start Date End Date Earnest Dueñas MD [address] [place] [address] PCP - General Family Medicine 02/27/25 Joan Talley APRN.CANDY PACKER [address] [place] [address] [facility] 10/29/24 Farzana Llamas PA-C [address] [place] [address] [facility] 10/29/24 Branch Maker Relationship Specialty Start Date End Date Earnest Dueñas MD [address] [place] [address] PCP - General Family Medicine 02/27/25 Joan Talley APRN.CANDY PACKER [address] [place] [address] [facility] 10/29/24 Farzana Llamas PA-C [address] [place] [address] [facility] 10/29/24 Branch Maker Relationship Specialty Start Date End Date Earnest Dueñas MD [address] [place] [address] PCP - General Family Medicine 02/27/25 Joan Talley APRN.CANDY PACKER [address] [place] [address] [facility] 10/29/24 Farzana Llamas PA-C [address] [place] [phone] [facility] 10/29/[facility] Branch Maker Relationship Specialty Start Date End Date Earnest Dueñas MD [address] [place] [address] PCP - General Family Medicine 02/27/25 Joan Talley APRN.CANDY PACKER [address] [place] [address] [facility] 10/29/24 Farzana Llamas PA-C [address] [place] [address] [facility] 10/29/24 Care Team (unrecognized sect ion and content) Care Team Personnel Name: EARNEST DUEÑAS MD Member Role: Primary Care Physician Address: Address: [address] [place] [id number]- Name: ARJUN SLAUGHTER MD Position: ED Physician Member Role: Attending Physician Address: Address: [facility] [address] [place] [id number]- Name: Diamond Botello RN Position: PATI RN Member Role: RN Care Team Related [...] BE BASED ON THE PRIMARY CLINICAL RECORDS. [employer] [facility] provides no warranty or guarantee of the accuracy or completeness of information in this document.
--- OUTSIDE RECORDS SUMMARY | 2025-05-11 20:40 | XMS RPT_ITS | CCD ---
Author Organization [facility] Care Team Providers Care Spout Liner Name Role Phone Jose Carlos PHAN Admitting Unavailable EARNEST DUEÑAS Primary Care Unavailable COREY SAMER Consulting Unavailable SALVADOR WILL Procedure Practitioner Unavailab JOHN Perez Attending Unavailable VINCENT MURPHY Consulting UnavailSALVADOR Sue Consulting Unavailable Hernesto Phan Attending UnavailDr. Earnest Mccullough Primary Care Provider Dr. Earnest Dueñas Referring Provider Dr. Isac Hauser Attending Provider Earnest Dueñas MD Primary Care Provider Earnest Dueñas MD Primary Care Provider Earnest Dueñas MD Primary Care Provider EARNSET DUEÑAS MD Primary Care Physician ARJUN SLAUGHTER [...] Drug Class(es) Dates Sig (Normalized) Sig (Original) [id number] 200 actuat albuterol 0.09 mg/actuat metered dose [...] on above: Take 1 capsule by [facility] three times a day as needed [...] (FLONASE) 50 mcg/actuation nasal spray Use 1 [place] in each nostril twice daily. Rinse mouth after use. 1 Bottle 5 08/08/2020 07/17/2021 Discontinued 12 hr guaiFENesin 600 mg extended release oral tablet (2 sources) Start: End: take 2 tablets by mouth twice daily guaiFENesin (MUCINEX) 600 mg 12 hr tablet Take 2 tablets by mouth twice daily. 24 tablet 0 10/27/2021 04/16/2022 Discontinued Comment on above: Take 2 tablets by [facility] twice daily. 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 Electronically signed on: 03/31/2025 Wildlife Refuge Specialist: SWATI Transcribe Date/Time: Mar 30 2025 10:57A Dictated by: EVA TOBIAS MD This examination was interpreted and the report reviewed and electronically signed by: EVA TOBIAS MD on Mar 31 2025 10:50AM EST [id number] Normal [facility] Phosphoruson 03-07-2025 Phosphate [Mass/Vol] 3.3 mg/dL Normal 2.7-4.5 [facility] Comment on above: Performed By: #### L 501.2300 #### [facility] [address] [place], [address] CBC W/Diff, Automatedon 02-21 Absolute Lymph 2.01 X10 3/uL Normal 0.83-4.51 [facility] Comment on above: Performed By: #### L 500.4050, L501.2300, L100.0100 #### [facility] [address] [place], [address] Absolute Neut 2.3 X10 3/uL Normal 2.0-7.7 [facility] Comment on above: Performed By: #### L 500.4050, L501.2300, L100.0100 #### [facility] [address] [place], [address] Basophils/100 WBC (Bld) 1.0 % Normal 0-1 [facility] Comment on above: Performed By: #### L 500.4050, L501.2300, L100.0100 #### [facility] [address] [place], [address] Eosinophils/100 WBC (Bld) 5.0 % Normal 0-5 [facility] Comment on above: Performed By: #### L 500.4050, L501.2300, L100.0100 #### [facility] [address] [place], [address] Erythrocyte distribution width (RBC) [Ratio] 13.7 % Normal 11.6-14.6 [facility] Comment on above: Performed By: #### L 500.4050, L501.2300, L100.0100 #### [facility] [address] [place], [address] Hematocrit (Bld) [Volume fraction] 40.4 % Normal 37-47 [facility] Comment on above: Performed By: #### L 500.4050, L501.2300, L100.0100 #### [facility] [address] [place], [address] Hemoglobin (Bld) [Mass/Vol] 13.5 g/dL Normal 12.0-15.0 [facility] Comment on above: Performed By: #### L 500.4050, L501.2300, L100.0100 #### [facility] [address] [place], [address] IG% 0.800 Normal 0.0-0.9 [facility] Comment on above: Result Comment: IG% - Immature Granulocytes (promyelocytes, myelocytes and metamyelocytes) > 1% indicates that a LEFT SHIFT is Present. Performed By: #### L 500.4050, L501.2300, L100.0100 #### [facility] [address] [place], [address] Lymphocytes/100 WBC (Bld) 40.3 % Normal 19-41 [facility] Comment on above: Performed By: #### L 500.4050, L501.2300, L100.0100 #### [facility] [address] [place], [address] MCH (RBC) [Entitic mass] 32.6 pg High 27.0-32.0 [facility] Comment on above: Performed By: #### L 500.4050, L501.2300, L100.0100 #### [facility] [address] [place], [address] MCHC (RBC) [Mass/Vol] 33.4 g/dL Normal 32-36 [facility] Comment on above: Performed By: #### L 500.4050, L501.2300, L100.0100 #### [facility] [address] [place], [address] MCV (RBC) [Entitic vol] 97.6 fL Normal 81-99 [facility] Comment on above: Performed By: #### L 500.4050, L501.2300, L100.0100 #### [facility] [address] [place], [address] Monocytes/100 WBC (Bld) 7.8 % Normal 0-10 [facility] Comment on above: Performed By: #### L 500.4050, L501.2300, L100.0100 #### [facility] [address] [place], [address] Neutrophils/100 WBC (Bld) 45.1 % Low 47-70 [facility] Comment on above: Performed By: #### L 500.4050, L501.2300, L100.0100 #### [facility] [address] [place], [address] Nucleated RBC (Bld) [#/Vol] 0 10*3/uL Normal 0-5 [facility] Comment on above: Performed By: #### L 500.4050, L501.2300, L100.0100 #### [facility] [address] [place], [address] Platelet mean volume (Bld) [Entitic vol] 9.5 fL Normal 6.2-12.0 [facility] Comment on above: Performed By: #### L 500.4050, L501.2300, L100.0100 #### [facility] [address] [place], [address] Platelets (Bld) [#/Vol] 268 10*3/uL Normal 150-450 [facility] Comment on above: Performed By: #### L 500.4050, L501.2300, L100.0100 #### [facility] [address] [place], [address] RBC (Bld) [#/Vol] 4.14 10*6/uL Low 4.2-5.4 [facility] Comment on above: Performed By: #### L 500.4050, L501.2300, L100.0100 #### [facility] [address] [place], [address] RDW SD 49.7 fl High 35.1-43.9 [facility] Comment on above: Performed By: #### L 500.4050, L501.2300, L100.0100 #### [facility] [address] [place], [address] WBC (Bld) [#/Vol] 5.0 10*3/uL Normal 4.4-11.0 [facility] Comment on above: Performed By: #### L 500.4050, L501.2300, L100.0100 #### [facility] [address] [place], [address] Comprehensive Metabolic Prof ilon 03-06-2025 Albumin [Mass/Vol] 3.5 g/dL Normal 3.5-5.0 [facility] Comment on above: Performed By: #### L 500.4050, L501.2300, L100.0100 #### [facility] [address] [place], [address] Albumin/Globulin [Mass ratio] 1.7 {ratio} Normal 0.9-2.4 [facility] Comment on above: Performed By: #### L 500.4050, L501.2300, L100.0100 #### [facility] [address] [place], [address] ALK PHOS 110 U/L High 35-104 [facility] Comment on above: Performed By: #### L 500.4050, L501.2300, L100.0100 #### [facility] [address] [place], [address] ALT [Catalytic activity/Vol] 13 U/L Normal <=34 [facility] Comment on above: Performed By: #### L 500.4050, L501.2300, L100.0100 #### [facility] [address] [place], [address] AST [Catalytic activity/Vol] 20 U/L Normal <=31 [facility] Comment on above: Performed By: #### L 500.4050, L501.2300, L100.0100 #### [facility] [address] [place], [address] Bilirubin [Mass/Vol] 0.70 mg/dL Normal 0.00-1.30 [facility] Comment on above: Performed By: #### L 500.4050, L501.2300, L100.0100 #### [facility] [address] [place], [address] BUN/CRE 17.7 RATIO Normal 10-20 [facility] Comment on above: Performed By: #### L 500.4050, L501.2300, L100.0100 #### [facility] [address] [place], [address] Calcium [Mass/Vol] 8.6 mg/dL Normal 7.6-11.0 [facility] Comment on above: Performed By: #### L 500.4050, L501.2300, L100.0100 #### [facility] [address] [place], [address] Chloride [Moles/Vol] 105 mmol/L Normal 98-108 [facility] Comment on above: Performed By: #### L 500.4050, L501.2300, L100.0100 #### [facility] [address] [place], [address] CO2 [Moles/Vol] 24.4 mmol/L Normal 21.0-32.0 [facility] Comment on above: Performed By: #### L 500.4050, L501.2300, L100.0100 #### [facility] [address] [place], [address] Creatinine [Mass/Vol] 0.60 mg/dL Low 0.70-1.20 [facility] Comment on above: Performed By: #### L 500.4050, L501.2300, L100.0100 #### [facility] [address] [place], [address] ECRCL 104.17 ml/min Normal 50-250 [facility] Comment on above: Performed By: #### L 500.4050, L501.2300, L100.0100 #### [facility] [address] [place], [address] GAP 9 Normal 5-15 [facility] Comment on above: Performed By: #### L 500.4050, L501.2300, L100.0100 #### [facility] [address] [place], [address] GFR/1.73 sq M.predicted among non-blacks MDRD (S/P/Bld) [Vol rate/Area] 103 mL/min/{1.73_m2} Normal >60 [facility] Comment on above: Result Comment: mL/m in/1.73m2 CKD-EPI Creatinine Equation (2020) Performed By: #### L 500.4050, L501.2300, L100.0100 #### [facility] [address] [place], [address] Globulin (S) [Mass/Vol] 2.0 g/dL Low 2.2-4.2 [facility] Comment on above: Performed By: #### L 500.4050, L501.2300, L100.0100 #### [facility] [address] [place], [address] Glucose [Mass/Vol] 108 mg/dL High 70-99 [facility] Comment on above: Performed By: #### L 500.4050, L501.2300, L100.0100 #### [facility] [address] [place], [address] Potassium [Moles/Vol] 3.6 mmol/L Normal 3.3-5.1 [facility] Comment on above: Performed By: #### L 500.4050, L501.2300, L100.0100 #### [facility] [address] [place], [address] Sodium [Moles/Vol] 138 mmol/L Normal 133-145 [facility] Comment on above: Performed By: #### L 500.4050, L501.2300, L100.0100 #### [facility] [address] [place], [address] T PROT 5.5 g/dL Low 5.9-8.4 [facility] Comment on above: Performed By: #### L 500.4050, L501.2300, L100.0100 #### [facility] [address] [place], [address] Urea nitrogen [Mass/Vol] 11 mg/dL Normal 4-19 [facility] Comment on above: Performed By: #### L 500.4050, L501.2300, L100.0100 #### [facility] [address] [place], [address] Phosphoruson 03-06-2025 Phosphate [Mass/Vol] 3.8 mg/dL Normal 2.7-4.5 [facility] Comment on above: Performed By: #### L 500.4050, L501.2300, L100.0100 #### [facility] [address] [place], [address] Alcohol, Blood (Medical)-Ser umon 03-05-2025 SERUM ETOH 38.6 mg/dL High <=10.0 [facility] Comment on above: Result Comment: This test is for medical purposes only. The legal definition of intoxication varies according to local law. Performed By: #### L 100.0100, L500.4050, L300.3900, L505.5000, L501.9100 #### [facility] [address] [place], [address] CBC W/Diff, Automatedon 02-21 Absolute Lymph 2.60 X10 3/uL Normal 0.83-4.51 [facility] Comment on above: Performed By: #### L 100.0100, L500.4050, L300.3900, L505.5000, L501.9100 #### [facility] [address] [place], [address] Absolute Neut 3.9 X10 3/uL Normal 2.0-7.7 [facility] Comment on above: Performed By: #### L 100.0100, L500.4050, L300.3900, L505.5000, L501.9100 #### [facility] [address] [place], [address] Basophils/100 WBC (Bld) 0.8 % Normal 0-1 [facility] Comment on above: Performed By: #### L 100.0100, L500.4050, L300.3900, L505.5000, L501.9100 #### [facility] [address] [place], [address] Eosinophils/100 WBC (Bld) 4.2 % Normal 0-5 [facility] Comment on above: Performed By: #### L 100.0100, L500.4050, L300.3900, L505.5000, L501.9100 #### [facility] [address] [place], [address] Erythrocyte distribution width (RBC) [Ratio] 13.4 % Normal 11.6-14.6 [facility] Comment on above: Performed By: #### L 100.0100, L500.4050, L300.3900, L505.5000, L501.9100 #### [facility] [address] [place], [address] Hematocrit (Bld) [Volume fraction] 45.2 % Normal 37-47 [facility] Comment on above: Performed By: #### L 100.0100, L500.4050, L300.3900, L505.5000, L501.9100 #### [facility] [address] [place], [address] Hemoglobin (Bld) [Mass/Vol] 15.7 g/dL High 12.0-15.0 [facility] Comment on above: Performed By: #### L 100.0100, L500.4050, L300.3900, L505.5000, L501.9100 #### [facility] [address] [place], [address] IG% 0.300 Normal 0.0-0.9 [facility] Comment on above: Result Comment: IG% - Immature Granulocytes (promyelocytes, myelocytes and metamyelocytes) > 1% indicates that a LEFT SHIFT is Present. Performed By: #### L 100.0100, L500.4050, L300.3900, L505.5000, L501.9100 #### [facility] [address] [place], [address] Lymphocytes/100 WBC (Bld) 35.1 % Normal 19-41 [facility] Comment on above: Performed By: #### L 100.0100, L500.4050, L300.3900, L505.5000, L501.9100 #### [facility] [address] [place], [address] MCH (RBC) [Entitic mass] 33.0 pg High 27.0-32.0 [facility] Comment on above: Performed By: #### L 100.0100, L500.4050, L300.3900, L505.5000, L501.9100 #### [facility] [address] [place], [address] MCHC (RBC) [Mass/Vol] 34.7 g/dL Normal 32-36 [facility] Comment on above: Performed By: #### L 100.0100, L500.4050, L300.3900, L505.5000, L501.9100 #### [facility] [address] [place], [address] MCV (RBC) [Entitic vol] 95.0 fL Normal 81-99 [facility] Comment on above: Performed By: #### L 100.0100, L500.4050, L300.3900, L505.5000, L501.9100 #### [facility] [address] [place], [address] Monocytes/100 WBC (Bld) 6.8 % Normal 0-10 [facility] Comment on above: Performed By: #### L 100.0100, L500.4050, L300.3900, L505.5000, L501.9100 #### [facility] [address] [place], [address] Neutrophils/100 WBC (Bld) 52.8 % Normal 47-70 [facility] Comment on above: Performed By: #### L 100.0100, L500.4050, L300.3900, L505.5000, L501.9100 #### [facility] [address] [place], [address] Nucleated RBC (Bld) [#/Vol] 0 10*3/uL Normal 0-5 [facility] Comment on above: Performed By: #### L 100.0100, L500.4050, L300.3900, L505.5000, L501.9100 #### [facility] [address] [place], [address] Platelet mean volume (Bld) [Entitic vol] 9.0 fL Normal 6.2-12.0 [facility] Comment on above: Performed By: #### L 100.0100, L500.4050, L300.3900, L505.5000, L501.9100 #### [facility] [address] [place], [address] Platelets (Bld) [#/Vol] 333 10*3/uL Normal 150-450 [facility] Comment on above: Performed By: #### L 100.0100, L500.4050, L300.3900, L505.5000, L501.9100 #### [facility] [address] [place], [address] RBC (Bld) [#/Vol] 4.76 10*6/uL Normal 4.2-5.4 [facility] Comment on above: Performed By: #### L 100.0100, L500.4050, L300.3900, L505.5000, L501.9100 #### [facility] [address] [place], [address] RDW SD 47.1 fl High 35.1-43.9 [facility] Comment on above: Performed By: #### L 100.0100, L500.4050, L300.3900, L505.5000, L501.9100 #### [facility] [address] [place], [address] WBC (Bld) [#/Vol] 7.4 10*3/uL Normal 4.4-11.0 [facility] Comment on above: Performed By: #### L 100.0100, L500.4050, L300.3900, L505.5000, L501.9100 #### [facility] [address] [place], [address] Comprehensive Metabolic Prof [facility] 03-05-2025 Albumin [Mass/Vol] 4.3 g/dL Normal 3.5-5.0 [facility] Comment on above: Performed By: #### L 100.0100, L500.4050, L300.3900, L505.5000, L501.9100 #### [facility] [address] [place], [address] Albumin/Globulin [Mass ratio] 1.7 {ratio} Normal 0.9-2.4 [facility] Comment on above: Performed By: #### L 100.0100, L500.4050, L300.3900, L505.5000, L501.9100 #### [facility] [address] [place], [address] ALK PHOS 135 U/L High 35-104 [facility] Comment on above: Performed By: #### L 100.0100, L500.4050, L300.3900, L505.5000, L501.9100 #### [facility] [address] [place], [address] ALT [Catalytic activity/Vol] 18 U/L Normal <=34 [facility] Comment on above: Performed By: #### L 100.0100, L500.4050, L300.3900, L505.5000, L501.9100 #### [facility] [address] [place], [address] AST [Catalytic activity/Vol] 22 U/L Normal <=31 [facility] Comment on above: Performed By: #### L 100.0100, L500.4050, L300.3900, L505.5000, L501.9100 #### [facility] [address] [place], [address] Bilirubin [Mass/Vol] 0.48 mg/dL Normal 0.00-1.30 [facility] Comment on above: Performed By: #### L 100.0100, L500.4050, L300.3900, L505.5000, L501.9100 #### [facility] [address] [place], [address] BUN/CRE 10.6 RATIO Normal 10-20 [facility] Comment on above: Performed By: #### L 100.0100, L500.4050, L300.3900, L505.5000, L501.9100 #### [facility] [address] [place], [address] Calcium [Mass/Vol] 9.3 mg/dL Normal 7.6-11.0 [facility] Comment on above: Performed By: #### L 100.0100, L500.4050, L300.3900, L505.5000, L501.9100 #### [facility] [address] [place], [address] Chloride [Moles/Vol] 102 mmol/L Normal 98-108 [facility] Comment on above: Performed By: #### L 100.0100, L500.4050, L300.3900, L505.5000, L501.9100 #### [facility] [address] [place], [address] CO2 [Moles/Vol] 27.2 mmol/L Normal 21.0-32.0 [facility] Comment on above: Performed By: #### L 100.0100, L500.4050, L300.3900, L505.5000, L501.9100 #### [facility] [address] [place], [address] Creatinine [Mass/Vol] 0.60 mg/dL Low 0.70-1.20 [facility] Comment on above: Performed By: #### L 100.0100, L500.4050, L300.3900, L505.5000, L501.9100 #### [facility] [address] [place], [address] ECRCL 104.47 ml/min Normal 50-250 [facility] Comment on above: Performed By: #### L 100.0100, L500.4050, L300.3900, L505.5000, L501.9100 #### [facility] [address] [place], [address] GAP 12 Normal 5-15 [facility] Comment on above: Performed By: #### L 100.0100, L500.4050, L300.3900, L505.5000, L501.9100 #### [facility] [address] [place], [address] GFR/1.73 sq M.predicted among non-blacks MDRD (S/P/Bld) [Vol rate/Area] 103 mL/min/{1.73_m2} Normal >60 [facility] Comment on above: Result Comment: mL/m in/1.73m2 CKD-EPI Creatinine Equation (2020) Performed By: #### L 100.0100, L500.4050, L300.3900, L505.5000, L501.9100 #### [facility] [address] [place], [address] Globulin (S) [Mass/Vol] 2.6 g/dL Normal 2.2-4.2 [facility] Comment on above: Performed By: #### L 100.0100, L500.4050, L300.3900, L505.5000, L501.9100 #### [facility] [address] [place], [address] Glucose [Mass/Vol] 97 mg/dL Normal 70-99 [facility] Comment on above: Performed By: #### L 100.0100, L500.4050, L300.3900, L505.5000, L501.9100 #### [facility] [address] [place], [address] Potassium [Moles/Vol] 3.6 mmol/L Normal 3.3-5.1 [facility] Comment on above: Performed By: #### L 100.0100, L500.4050, L300.3900, L505.5000, L501.9100 #### [facility] [address] [place], [address] Sodium [Moles/Vol] 141 mmol/L Normal 133-145 [facility] Comment on above: Performed By: #### L 100.0100, L500.4050, L300.3900, L505.5000, L501.9100 #### [facility] [address] [place], [address] T PROT 6.9 g/dL Normal 5.9-8.4 [facility] Comment on above: Performed By: #### L 100.0100, L500.4050, L300.3900, L505.5000, L501.9100 #### [facility] [address] [place], [address] Urea nitrogen [Mass/Vol] 6 mg/dL Normal 4-19 [facility] Comment on above: Performed By: #### L 100.0100, L500.4050, L300.3900, L505.5000, L501.9100 #### [facility] [address] [place], [address] Emergency Department Summary on 03-05-2025 Emergency Department Summary [facility] Medical Records Department [address] [place] [address] Emergency Department Summary 03/05/25 MR#: [id number] Acct: [id number] Name: KAMI WATTS Rep #: [id number] : 1965 59 From: Christian Montelongo DO PCP: Dr. Earnest Dueñas MD Status:ADM IN Location: [place] [address] HPI History of Present Illness Chief Complaint: [...] today but she was babysitting her granddaughter. [facility] Medical History Alcohol use disorder Tobacco use [...] Cardio regula (more content not included)... Normal [facility] Folates,Serum (Folic Acid)on 03-05-2025 FOLATES,SERUM 4.91 ng/mL Normal 4.60-34.80 [facility] Comment on above: Result Comment: Hemo lysis, Results will be affected, Requires Recollection. Performed By: #### L 400.0001 #### [facility] Laboratory [address] [place], [address] H AND P Exam - Hospitaliston 03-05-2025 H&P Exam - Hospitalist [facility] Medical Records Department [address] [place] [address] H P Exam - Hospitalist 03/05/254 MR#: [id number] Acct: [id number] Name: KAMI WATTS Rep #: [id number] : 1965 59 From: Jeffry Cortez DO PCP: Dr. Earnest Dueñas MD Status:ADM IN Location: [facility] [id number] [facility] General Date of Admission: 03/05/25 Date of [...] detox who now once again re-presents to [facility] ER complaining of wanting help with EtOH [...] to extend beyond 2 midnights. [facility] Medical History Alcohol use disorder Tobacco use [...] animals: cat(s) (more content not included)... Normal [facility] Magnesiumon 03-05-2025 Magnesium [Mass/Vol] 1.8 mg/dL Normal 1.5-2.2 [facility] Comment on above: Performed By: #### L 400.0001 #### [facility] Laboratory [address] [place], [address] Prothrombin Time w/INRon INR Coag (PPP) [Relative time] 1.1 {INR} Normal [facility] Comment on above: Performed By: #### L 100.0100, L500.4050, L300.3900, L505.5000, L501.9100 #### [facility] Laboratory [address] [place], [address] PT Coag (PPP) [Time] 13.9 s Normal 11.7-14.9 [facility] Comment on above: Performed By: #### L 100.0100, L500.4050, L300.3900, L505.5000, L501.9100 #### [facility] Laboratory [address] [place], [address] Thyroid Stim Hormone (TSH)on 03-05-2025 TSH 0.908 uIU/mL Normal 0.300-4.200 [facility] Comment on above: Order Comment: CLEAN CATCH Performed By: #### L 400.0001 #### [facility] Laboratory [address] [place], [address] Urine Drug Screen (VISTA)on 03-05-2025 AMPHETAMINES Negative Normal <1000 ng/mL [facility] Comment on above: Performed By: #### L 100.0100, L500.4050, L300.3900, L505.5000, L501.9100 #### [facility] Laboratory [address] [place], [address] BARBITIURATES Negative Normal < 200 ng/mL [facility] Comment on above: Performed By: #### L 100.0100, L500.4050, L300.3900, L505.5000, L501.9100 #### [facility] Laboratory [address] [place], [address] BENZODIAZIPINE Negative Normal < 200 ng/mL [facility] Comment on above: Performed By: #### L 100.0100, L500.4050, L300.3900, L505.5000, L501.9100 #### [facility] Laboratory [address] [place], [address] BUP Ur Drug Scr Positive Normal < 200 ng/mL [facility] Comment on above: Result Comment: If c onfirmation testing is needed, a separate order will be required to send out testing to the reference laboratory. Performed By: #### L 100.0100, L500.4050, L300.3900, L505.5000, L501.9100 #### [facility] Laboratory [address] [place], [address] COCAINE Negative Normal < 300 ng/mL [facility] Comment on above: Performed By: #### L 100.0100, L500.4050, L300.3900, L505.5000, L501.9100 #### [facility] Laboratory [address] [place], [place], [facility] Fentanyl Negative Normal [facility] Comment on above: Performed By: #### L 100.0100, L500.4050, L300.3900, L505.5000, L501.9100 #### [facility] Laboratory [address] [place], [place], [facility] METHADONE Negative Normal < 300 ng/mL [facility] Comment on above: Performed By: #### L 100.0100, L500.4050, L300.3900, L505.5000, L501.9100 #### [facility] Laboratory [address] [place], [facility] OPIATES Negative Normal < 300 ng/mL [facility] Comment on above: Performed By: #### L 100.0100, L500.4050, L300.3900, L505.5000, L501.9100 #### [facility] Laboratory [address] [place], [facility] OXYCODONE Negative Normal < 100 ng/mL [facility] Comment on above: Performed By: #### L 100.0100, L500.4050, L300.3900, L505.5000, L501.9100 #### [facility] Laboratory [address] [place], [facility] PCP Negative Normal < 25 ng/mL [facility] Comment on above: Performed By: #### L 100.0100, L500.4050, L300.3900, L505.5000, L501.9100 #### [facility] Laboratory [address] [place], [address] THC Negative Normal < 50 ng/mL [facility] Comment on above: Performed By: #### L 100.0100, L500.4050, L300.3900, L505.5000, L501.9100 #### [facility] Laboratory [address] [place], [address] Vitamin B12on 03-05-2025 Cobalamin (Vitamin B12) [Mass/Vol] 615 pg/mL Normal 180-914 [facility] Comment on above: Order Comment: CLEAN CATCH Performed By: #### L 400.0001 #### [facility] Laboratory [address] [place], [address] 25(OH)D3 SerPl-mCncon 2024 25-hydroxyvitamin D3 [Mass/Vol] 18.5 ng/mL Low 31.0-80.0 [facility] Comment on above: Order Comment: Speci men Type: BLOOD SPECIMENOrdering Facility: [facility] Address: [address] [place] [address] Result Comment: Clas sification of 25 [place] Vitamin D status: Deficiency/Insufficiency: < or = 30 ng/ml. Sufficiency/Optimal Levels: 31-80 ng/mL Toxicity: > 100 ng/mL. Test performed by chemiluminescent immunoassay. Performed By: #### 1 989-3 ####[facility] [id number] [address] [place] CNOVon 02-28-2025 CNOV Office Visit (FAMPWS ) KAMI WATTS ([id number]) 1965 F NFR Date Time Provider Department 02/28/25 11:20 AM JOAN TALLEY During your visit today, we recorded the following information about you: Pulse Blood pressure Weight 83/minute 145/96 86 kg Joan Talley APRN.[employer] ADMINISTRATOR 02/28/2025 11:56 AM Signed Chief Complaint Patient [...] Disease Mother Hypertension Mother Hearing Loss Father ND/ colon cancer Stroke Father Diabetes Father Hypertension Father Aneurysm Father Coronary Artery Disease Maternal Grandmother Hypertension Maternal Grandmother Ischemic Heart Disease Maternal Grandfather Hypertension Paternal Grandmother Coronary Artery Disease Paternal Grandmother Coronary Artery Disease Paternal Grandfather Cancer Sister CERVICAL/colon cancer Cancer Paternal Aunt DOESN'T KNOW TYPE Heart Brother ND Hypertension Daughter Colon Cancer Brother Patient Allergies [...] Used Substance (more content not included)... Normal [facility] HbA1c (Bld)on 02-28-2025 Average glucose Estimated from glycated hemoglobin (Bld) [Mass/Vol] 105 mg/dL Normal [facility] Comment on above: Order Comment: Marcus fernandes Type: BLOOD SPECIMENOrdering Facility: [facility] Address: [address] [place] [address] Result Comment: eAG: (Estimated average glucose) is a calculated value from HgbA1c and is guest experience representative of the average blood glucose level in the last 2-3 month period. Performed By: #### 5 5454-3 ####[facility] [id number] [place] [address] [place] HbA1c (Bld) [Mass fraction] 5.3 % Normal 4.3-5.6 [facility] Comment on above: Order Comment: [facility] Type: BLOOD SPECIMENOrdering Facility: [facility] Address: [address] [place] [address] Result Comment: [place] Diabetes Association guidelines indicate that patients with HgbA1c in the range 5.7-6.4% are at increased risk for development of diabetes, and intervention by lifestyle modification may be beneficial. HgbA1c greater or equal to 6.5% is considered diagnostic of diabetes. Performed By: #### 5 5454-3 ####[facility] [id number] [place] [address] [place] Magnesium SerPl-mCncon 02-28 Magnesium [Mass/Vol] 2.1 mg/dL Normal 1.7-2.3 [facility] Comment on above: Order Comment: [facility] Type: BLOOD SPECIMENOrdering Facility: [facility] Address: [address] [place] [address] Performed By: #### 3 016-3, 41476-0, 2132-9 ####[facility] [id number] [place] [id number] [place] TSH SerPl-aCncon 02-28-2025 TSH Qn 0.564 m[IU]/L Normal 0.270-4.200 [facility] Comment on above: Order Comment: Speci men Type: BLOOD SPECIMENOrdering Facility: [facility] Address: [address] [place] [address] Performed By: #### 3 016-3, , 2132-07 ####[facility] [id number] [place] [id number] [place] Vit B12 SerPl-mCncon 025 Cobalamin (Vitamin B12) [Mass/Vol] 651 pg/mL Normal 232-1245 [facility] Comment on above: Order Comment: Speci men Type: BLOOD SPECIMENOrdering Facility: [facility] Address: [address] [place] [address] Performed By: #### 3 016-3, , 2132-07 ####[facility] [id number] [place] [id number] [facility] [place] Vel [facility] KAMI WATTS ([id number]) 1965 F NFR Date Time Provider Department 02/22/25 EARNEST DUEÑAS During your visit today, we recorded the following information about you: Fior Wheatley, PACO 02/22/2025 4:24 PM Signed Patient has Wellness appt with Joan Talley CNP on 02/28/25. 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 Pt states [...] Status:Closed by JOAN TALLEY on 02/23/25 Normal [facility] HCV RNA KALI+probe Qnon 02-21 HCV RNA KAIL+probe Ql Not detected Normal Not detected [facility] Comment on above: Order Comment: Speci men Type: BLOOD SPECIMENOrdering Facility: External Submitter Address: , , Performed By: #### 1 1011-4 ####[facility] [id number] [place] [address] [place] CBC W Auto Differential pane l (Bld)on 02-16-2025 Basophils (Bld) [#/Vol] 0.04 10*3/uL Normal <0.11 [facility] Comment on above: Order Comment: Speci men Type: BLOOD SPECIMENOrdering Facility: External Submitter Address: , , Performed By: #### 5 7021-8 ####[facility] LAB[facility] [id number] [address] [place] Basophils/100 WBC (Bld) 0.5 % Normal [facility] Comment on above: Order Comment: Speci men Type: BLOOD SPECIMENOrdering Facility: External Submitter Address: , , Performed By: #### 5 7021-8 ####[facility] [id number] [place] [address] [place] Differential cell count method Nom (Bld) Auto Normal [facility] Comment on above: Order Comment: Speci men Type: BLOOD SPECIMENOrdering Facility: External Submitter Address: , , Performed By: #### 5 7021-8 ####[facility] [id number] [facility] [address] [place] [address] [place] Eosinophils (Bld) [#/Vol] 0.18 10*3/uL Normal <0.46 [facility] Comment on above: Order Comment: Speci men Type: BLOOD SPECIMENOrdering Facility: External Submitter Address: , , Performed By: #### 5 7021-8 ####[facility] [id number] [facility] [address] [place] [address] [place] Eosinophils/100 WBC (Bld) 2.3 % Normal [facility] Comment on above: Order Comment: Speci men Type: BLOOD SPECIMENOrdering Facility: External Submitter Address: , , Performed By: #### 5 7021-8 ####[facility] [id number] [facility] [address] [place] [address] [place] Erythrocyte distribution width (RBC) [Ratio] 13.2 % Normal 11.5-15.0 [facility] Comment on above: Order Comment: Speci men Type: BLOOD SPECIMENOrdering Facility: External Submitter Address: , , Performed By: #### 5 7021-8 ####[facility] [id number] [address] [place] [address] [facility] [place] Hematocrit (Bld) [Volume fraction] 43.8 % Normal 36.0-46.0 [facility] Comment on above: Order Comment: Speci men Type: BLOOD SPECIMENOrdering Facility: External Submitter Address: , , Performed By: #### 5 7021-8 ####[facility] [id number] [facility] [address] [place] [address] [place] Hemoglobin (Bld) [Mass/Vol] 14.6 g/dL Normal 11.5-15.5 [facility] Comment on above: Order Comment: Speci men Type: BLOOD SPECIMENOrdering Facility: External Submitter Address: , , Performed By: #### 5 7021-8 ####[facility] [id number] [address] [place] [address] [place] Immature granulocytes (Bld) [#/Vol] 10*3/uL Normal <0.10 [facility] Comment on above: Order Comment: Speci men Type: BLOOD SPECIMENOrdering Facility: External Submitter Address: , , Performed By: #### 5 7021-8 ####[facility] [id number] [facility] [address] [place] [address] [facility] Immature granulocytes/100 WBC (Bld) 0.3 % Normal [facility] Comment on above: Order Comment: Speci men Type: BLOOD SPECIMENOrdering Facility: External Submitter Address: , , Performed By: #### 5 7021-8 ####[facility] [id number] [address], [address] Lymphocytes (Bld) [#/Vol] 1.89 10*3/uL Normal 1.00-4.00 [facility] Comment on above: Order Comment: Speci men Type: BLOOD SPECIMENOrdering Facility: External Submitter Address: , , Performed By: #### 5 7021-8 ####[facility] [id number] [address], [address] Lymphocytes/100 WBC (Bld) 24.3 % Normal [facility] Comment on above: Order Comment: Speci men Type: BLOOD SPECIMENOrdering Facility: External Submitter Address: , , Performed By: #### 5 7021-8 ####[facility] [id number] [address] [place] [address] [place] MCH (RBC) [Entitic mass] 31.9 pg Normal 26.0-34.0 [facility] Comment on above: Order Comment: Speci men Type: BLOOD SPECIMENOrdering Facility: External Submitter Address: , , Performed By: #### 5 7021-8 ####[facility] [id number] [address], [address] MCHC (RBC) [Mass/Vol] 33.3 g/dL Normal 30.5-36.0 [facility] Comment on above: Order Comment: Speci men Type: BLOOD SPECIMENOrdering Facility: External Submitter Address: , , Performed By: #### 5 7021-8 ####[facility] LABIA [id number] [address], [facility] MCV (RBC) [Entitic vol] 95.8 fL Normal 80.0-100.0 [facility] Comment on above: Order Comment: Speci men Type: BLOOD SPECIMENOrdering Facility: External Submitter Address: , , Performed By: #### 5 7021-8 ####[facility]IA [id number] [address], [address] [place] Monocytes (Bld) [#/Vol] 0.47 10*3/uL Normal <0.87 [facility] Comment on above: Order Comment: Speci men Type: BLOOD SPECIMENOrdering Facility: External Submitter Address: , , Performed By: #### 5 7021-8 ####[facility]IA [id number] [address], [address] Monocytes/100 WBC (Bld) 6.0 % Normal [facility] Comment on above: Order Comment: Speci men Type: BLOOD SPECIMENOrdering Facility: External Submitter Address: , , Performed By: #### 5 7021-8 ####[facility]IA [id number] [address], [facility] [place] Neutrophils (Bld) [#/Vol] 5.18 10*3/uL Normal 1.45-7.50 [facility] Comment on above: Order Comment: Speci men Type: BLOOD SPECIMENOrdering Facility: External Submitter Address: , , Performed By: #### 5 7021-8 ####[facility]IA [id number] [address], [facility] [place] Neutrophils/100 WBC (Bld) 66.6 % Normal [facility] Comment on above: Order Comment: Speci men Type: BLOOD SPECIMENOrdering Facility: External Submitter Address: , , Performed By: #### 5 7021-8 ####[facility] [id number] [address] [place] [address] [place] Nucleated RBC (Bld) [#/Vol] 10*3/uL Normal <0.01 [facility] Comment on above: Order Comment: Speci men Type: BLOOD SPECIMENOrdering Facility: External Submitter Address: , , Performed By: #### 5 7021-8 ####[facility]IA [id number] [address] [place] [address] [place] Nucleated RBC/100 WBC (Bld) [Ratio] 0.0 /100 WBC Normal [facility] Comment on above: Order Comment: Speci men Type: BLOOD SPECIMENOrdering Facility: External Submitter Address: , , Performed By: #### 5 7021-8 ####[facility]IA [id number] [address] [place] [address] [place] Platelet mean volume (Bld) [Entitic vol] 9.8 fL Normal 9.0-12.7 [facility] Comment on above: Order Comment: Speci men Type: BLOOD SPECIMENOrdering Facility: External Submitter Address: , , Performed By: #### 5 7021-8 ####[facility] [id number] [address] [place] [address] [place] Platelets (Bld) [#/Vol] 335 10*3/uL Normal 150-400 [facility] Comment on above: Order Comment: Speci men Type: BLOOD SPECIMENOrdering Facility: External Submitter Address: , , Performed By: #### 5 7021-8 ####[facility] [id number] [address] [place] [address] [place] RBC (Bld) [#/Vol] 4.57 10*6/uL Normal 3.90-5.20 [facility] Comment on above: Order Comment: Speci men Type: BLOOD SPECIMENOrdering Facility: External Submitter Address: , , Performed By: #### 5 7021-8 ####[facility] [id number] [address] [place] OF [facility] WBC (Bld) [#/Vol] 7.78 10*3/uL Normal 3.70-11.00 [facility] Comment on above: Order Comment: Speci men Type: BLOOD SPECIMENOrdering Facility: External Submitter Address: , , Performed By: #### 5 7021-8 ####[facility] LABIA [id number] [address] Comprehensive metabolic 2000 panelon 02-16-2025 Albumin [Mass/Vol] 4.1 g/dL Normal 3.9-4.9 [facility] Comment on above: Order Comment: Speci men Type: BLOOD SPECIMENOrdering Facility: External Submitter Address: , , Performed By: #### 2 4323-8 ####[facility] [id number] [place] [address] [place] ALP [Catalytic activity/Vol] 161 U/L High 34-123 [facility] Comment on above: Order Comment: Speci men Type: BLOOD SPECIMENOrdering Facility: External Submitter Address: , , Performed By: #### 2 4323-8 ####[facility] [id number] [place] [address] [place] ALT [Catalytic activity/Vol] 15 U/L Normal 7-38 [facility] Comment on above: Order Comment: Speci men Type: BLOOD SPECIMENOrdering Facility: External Submitter Address: , , Performed By: #### 2 4323-8 ####[facility] [id number] [place] [address] [place] Anion gap [Moles/Vol] 14 mmol/L Normal 8-15 [facility] Comment on above: Order Comment: Speci men Type: BLOOD SPECIMENOrdering Facility: External Submitter Address: , , Performed By: #### 2 4323-8 ####[facility] [id number] [place] [address] [place] AST [Catalytic activity/Vol] 23 U/L Normal 13-35 [facility] Comment on above: Order Comment: Speci men Type: BLOOD SPECIMENOrdering Facility: External Submitter Address: , , Performed By: #### 2 4323-8 ####[facility] [id number] [place] [address] [place] Bilirubin [Mass/Vol] 0.7 mg/dL Normal 0.2-1.3 [facility] Comment on above: Order Comment: Speci men Type: BLOOD SPECIMENOrdering Facility: External Submitter Address: , , Performed By: #### 2 4323-8 ####[facility] [id number] [place] [address] [place] Calcium [Mass/Vol] 9.7 mg/dL Normal 8.5-10.2 [facility] Comment on above: Order Comment: Speci men Type: BLOOD SPECIMENOrdering Facility: External Submitter Address: , , Performed By: #### 2 4323-8 ####[facility] [id number] [place] [address] [place] Chloride [Moles/Vol] 101 mmol/L Normal 98-107 [facility] Comment on above: Order Comment: Speci men Type: BLOOD SPECIMENOrdering Facility: External Submitter Address: , , Performed By: #### 2 4323-8 ####[facility] [id number] [place] [address] [place] CO2 [Moles/Vol] 26 mmol/L Normal 22-30 [facility] Comment on above: Order Comment: Speci men Type: BLOOD SPECIMENOrdering Facility: External Submitter Address: , , Performed By: #### 2 4323-8 ####[facility] [id number] [place] [address] [place] Creatinine [Mass/Vol] 0.60 mg/dL Normal 0.58-0.96 [facility] Comment on above: Order Comment: Marcus fernandes Type: BLOOD SPECIMENOrdering Facility: External Submitter Address: , , Performed By: #### 2 4323-8 ####[facility] [id number] [place] [address] [place] Creatinine and Glomerular filtration rate.predicted panel (S/P/Bld) 104 mL/min/1.73m??? Normal >=60 [facility] Comment on above: Order Comment: [...] Performed By: #### 2 4323-8 ####[facility] [id number] [place] [address] [place] Glucose [Mass/Vol] 94 mg/dL Normal 74-99 [facility] Comment on above: Order Comment: Marcus fernandes Type: BLOOD SPECIMENOrdering Facility: External Submitter Address: , , Result Comment: The [place] Diabetes Association (ADA) provides guidance for cutoff [...] Standards of Medical Care in Diabetes 2016, [place] Diabetes Association. Diabetes Care. 2016.39(Suppl 1). Performed By: #### 2 4323-8 ####[facility] [id number] [address] [place] Potassium [Moles/Vol] 4.4 mmol/L Normal 3.7-5.1 [facility] Comment on above: Order Comment: Marcus fernandes Type: BLOOD SPECIMENOrdering Facility: External Submitter Address: , , Performed By: #### 2 4323-8 ####[facility] [id number] [place] [address] [place] Protein [Mass/Vol] 7.2 g/dL Normal 6.3-8.0 [facility] Comment on above: Order Comment: Marcus fernandes Type: BLOOD SPECIMENOrdering Facility: External Submitter Address: , , Performed By: #### 2 4323-8 ####[facility] [id number] [place] [address] [place] Sodium [Moles/Vol] 141 mmol/L Normal 136-144 [facility] Comment on above: Order Comment: Marcsu fernandes Type: BLOOD SPECIMENOrdering Facility: External Submitter Address: , , Performed By: #### 2 4323-8 ####[facility] [id number] [place] [address] [place] Urea nitrogen [Mass/Vol] 10 mg/dL Normal 7-21 [facility] Comment on above: Order Comment: Marcus fernandes Type: BLOOD SPECIMENOrdering Facility: External Submitter Address: , , Performed By: #### 2 4323-8 ####[facility] [id number] [place] [address] [place] HAV IgM Ser Qlon 02-16-2025 HAV IgM Ql (S) Negative Normal Negative [facility] Comment on above: Order Comment: Marcus fernandes Type: BLOOD SPECIMENOrdering Facility: External Submitter Address: , , Result Comment: No e vidence of recent infection with Hepatitis A virus. Performed By: #### 2 2314-9, AHAVG ####[facility] [id number] [address] [address] [place] HBV core Ab Ser Qlon 025 HBV core Ab Ql (S) Positive Abnormal Negative [facility] Comment on above: Order Comment: Speci men Type: BLOOD SPECIMENOrdering Facility: External Submitter Address: , , Result Comment: The result suggests either current or past infection with Hepatitis B virus. Non-specific reactivity may at times be seen with this test due to some underlying phenomena. Please correlate with HBsAg result and medical history. Performed By: #### 5 195-3, 58637-6, 84092-4, 46830-4 ####[facility] [id number] [address] [address] [facility] HBV surface Ab Ql (S)on 01-22 HBV surface Ab Qn (S) >1000.00 Normal [facility] Comment on above: Order Comment: [...] B Virus. Performed By: #### 5 195-3, 37248-5, 16660-8, 29083-8 ####[facility] [id number] [address] [place] [address] [facility] [place] HBV surface Ab Ser Qlon 01-22 HBV surface Ab Ql (S) Positive Normal [facility] Comment on above: Order Comment: Speci men Type: BLOOD SPECIMENOrdering Facility: External Submitter Address: , , Result Comment: Cons istent with serological evidence of immunity to Hepatitis B Virus. Performed By: #### 5 195-3, 58541-4, 38445-4, 68821-9 ####[facility]CL[facility] [id number] [address], [address] [place] HBV surface Ag Ser Qlon 01-22 HBV surface Ag Ql (S) Negative Normal Negative [facility] Comment on above: Order Comment: Speci men Type: BLOOD SPECIMENOrdering Facility: External Submitter Address: , , Performed By: #### 5 195-3, 56634-3, 48545-8, 35469-4 ####[facility]CL[facility] [id number] [address], [address] [place] HCV Ab Ser Qlon 02-16-2025 HCV Ab Ql (S) Positive Abnormal Negative [facility] Comment on above: Order Comment: Speci men Type: BLOOD SPECIMENOrdering Facility: External Submitter Address: , , Performed By: #### 1 6128-1 ####[facility] LABCLIA [id number] [address], [address] [place] HEPATITIS A ANTIBODY, IGGon 02-16-2025 HAV IgG Ql (S) Positive Normal [facility] Comment on above: Order Comment: Speci men Type: BLOOD SPECIMENOrdering Facility: External Submitter Address: , , Result Comment: This result suggests recent or past exposure to hepatitis A virus or hepatitis A vaccination. Clinical correlation required. Performed By: #### 2 2314-9, AHAVG ####[facility] LABCLIA [id number] [address] [place] HIV 1+2 Ab IA Qlon HIV 1 and 2 Ab IA.rapid Nom (S/P/Bld) Normal [facility] Comment on above: Order Comment: Speci men Type: BLOOD SPECIMENOrdering Facility: External Submitter Address: , , Result Comment: Test not indicated. Performed By: #### 5 195-3, 03446-4, 58973-3, 80750-9 ####[facility] LABCLIA [id number] [address] [place] [address] [place] HIV 1+2 Ab+HIV1 p24 Ag IA Ql Non-Reactive Normal Nonreactive [facility] Comment on above: Order Comment: Speci men Type: BLOOD SPECIMENOrdering Facility: External Submitter Address: , , Performed By: #### 5 195-3, 60644-5, 46326-6, 12896-0 ####[facility] LABCLIA [id number] [address] [address] [place] HIV immunoassay testing algorithm interpretation (S/P/Bld) [Interp] Normal [facility] Comment on above: Order Comment: Speci men Type: BLOOD SPECIMENOrdering Facility: External Submitter Address: , , Result Comment: No e vidence of HIV-1 or HIV-2 infection. Should recent infection be suspected, repeat testing may be considered 2-3 weeks after this draw. [place] Rev. Code 3701.243(E): This information has been [...] or diagnoses. Performed By: #### 5 195-3, 12922-8, 89181-9, 66233-0 ####[facility] LABCLIA [id number] [address] [address] [place] Alcohol, Blood (Medical)-Ser umon 11-10-2024 SERUM ETOH 89.0 mg/dL Normal [facility] Comment on above: Result Comment: The serum:whole blood ethanol ratio is approximately 1.14 and varies slightly with hematocrit. Medical Alcohol reference interval and critical value in non-tolerant individuals; 50 - 100 Impairment 100 Intoxication 100 - 250 Severe Poisoning 250 - 400 Deep/possible fatal coma Performed By: #### L 400.0001 #### [facility] [address] [place], [address] Basic Metabolic Profile (BMP )on 11-10-2024 BUN/CRE 18.1 RATIO Normal 10-20 [facility] Comment on above: Performed By: #### L 400.0001 #### [facility] [address] [place], [address] CA,Total 8.9 mg/dL Normal 8.5-10.1 [facility] Comment on above: Performed By: #### L 400.0001 #### [facility] [address] [place], [address] Chloride [Moles/Vol] 108 mmol/L High 98-107 [facility] Comment on above: Performed By: #### L 400.0001 #### [facility] [address] [place], [address] CO2 [Moles/Vol] 27.0 mmol/L Normal 21.0-32.0 [facility] Comment on above: Performed By: #### L 400.0001 #### [facility] [address] [place], [address] Creatinine [Mass/Vol] 0.55 mg/dL Normal 0.55-1.02 [facility] Comment on above: Result Comment: The validity of the calculated GFR GFRAA in patients over 70 years has not been determined. Clinical correlation is essential. Performed By: #### L 400.0001 #### [facility] [address] [place], [address] ECRCL 108.29 ml/min Normal [facility] Comment on above: Performed By: #### L 400.0001 #### [facility] [address] [place], [address] EST GFR - AA 144 mL/min Normal >60 [facility] Comment on above: Result Comment: Afri can [place] GFR Calc Performed By: #### L 400.0001 #### [facility] [address] [place], [address] GAP 5 Normal 5-15 [facility] Comment on above: Performed By: #### L 400.0001 #### [facility] [address] [place], [address] GFR/1.73 sq M.predicted among non-blacks MDRD (S/P/Bld) [Vol rate/Area] 119 mL/min/{1.73_m2} Normal >60 [facility] Comment on above: Result Comment: Non- GFR Calc Performed By: #### L 400.0001 #### [facility] [address] [place], [address] Glucose [Mass/Vol] 108 mg/dL High 74-106 [facility] Comment on above: Result Comment: Fast ing Glucose result from 100 to 125 mg/dL suggests IMPAIRED HOMEOSTASIS per A.D.A. criteria. Performed By: #### L 400.0001 #### [facility] [address] [place], [address] Potassium [Moles/Vol] 3.8 mmol/L Normal 3.5-5.1 [facility] Comment on above: Performed By: #### L 400.0001 #### [facility] [address] [place], [address] Sodium [Moles/Vol] 140 mmol/L Normal 136-145 [facility] Comment on above: Performed By: #### L 400.0001 #### [facility] [address] [place], [address] Urea nitrogen [Mass/Vol] 10 mg/dL Normal 7-18 [facility] Comment on above: Performed By: #### L 400.0001 #### [facility] [address] [place], [address] CBC W/Diff, Automatedon 12- Absolute Lymph 2.31 X10 3/uL Normal 0.83-4.51 [facility] Comment on above: Performed By: #### L 400.0001 #### [facility] [address] [place], [address] Absolute Neut 4.7 X10 3/uL Normal 2.0-7.7 [facility] Comment on above: Performed By: #### L 400.0001 #### [facility] [address] [place], [address] Basophils/100 WBC (Bld) 0.9 % Normal 0-1 [facility] Comment on above: Performed By: #### L 400.0001 #### [facility] [address] [place], [address] Eosinophils/100 WBC (Bld) 2.9 % Normal 0-5 [facility] Comment on above: Performed By: #### L 400.0001 #### [facility] [address] [place], [address] Erythrocyte distribution width (RBC) [Ratio] 14.0 % Normal 11.6-14.6 [facility] Comment on above: Performed By: #### L 400.0001 #### [facility] [address] [place], [address] Hematocrit (Bld) [Volume fraction] 43.8 % Normal 37-47 [facility] Comment on above: Performed By: #### L 400.0001 #### [facility] [address] [place], [address] Hemoglobin (Bld) [Mass/Vol] 14.5 g/dL Normal 12.0-15.0 [facility] Comment on above: Performed By: #### L 400.0001 #### [facility] [address] [place], [address] IG% 0.300 Normal 0.0-0.9 [facility] Comment on above: Result Comment: IG% - Immature Granulocytes (promyelocytes, myelocytes and metamyelocytes) > 1% indicates that a LEFT SHIFT is Present. Performed By: #### L 400.0001 #### [facility] [address] [place], [address] Lymphocytes/100 WBC (Bld) 30.2 % Normal 19-41 [facility] Comment on above: Performed By: #### L 400.0001 #### [facility] [address] [place], [address] MCH (RBC) [Entitic mass] 31.9 pg Normal 27.0-32.0 [facility] Comment on above: Performed By: #### L 400.0001 #### [facility] [address] [place], [address] MCHC (RBC) [Mass/Vol] 33.1 g/dL Normal 32-36 [facility] Comment on above: Performed By: #### L 400.0001 #### [facility] [address] [place], [address] MCV (RBC) [Entitic vol] 96.5 fL Normal 81-99 [facility] Comment on above: Performed By: #### L 400.0001 #### [facility] [address] [place], [address] Monocytes/100 WBC (Bld) 4.8 % Normal 0-10 [facility] Comment on above: Performed By: #### L 400.0001 #### [facility] [address] [place], [address] Neutrophils/100 WBC (Bld) 60.9 % Normal 47-70 [facility] Comment on above: Performed By: #### L 400.0001 #### [facility] [address] [place], [address] Nucleated RBC (Bld) [#/Vol] 0 10*3/uL Normal 0-5 [facility] Comment on above: Performed By: #### L 400.0001 #### [facility] [address] [place], [address] Platelet mean volume (Bld) [Entitic vol] 9.1 fL Normal 6.2-12.0 [facility] Comment on above: Performed By: #### L 400.0001 #### [facility] [address] [place], [address] Platelets (Bld) [#/Vol] 337 10*3/uL Normal 150-450 [facility] Comment on above: Performed By: #### L 400.0001 #### [facility] [address] [place], [address] RBC (Bld) [#/Vol] 4.54 10*6/uL Normal 4.2-5.4 [facility] Comment on above: Performed By: #### L 400.0001 #### [facility] [address] [place], [address] RDW SD 49.7 fl High 35.1-43.9 [facility] Comment on above: Performed By: #### L 400.0001 #### [facility] [address] [place], [address] WBC (Bld) [#/Vol] 7.6 10*3/uL Normal 4.4-11.0 [facility] Comment on above: Performed By: #### L 400.0001 #### [facility] [address] [place], [address] Emergency Department Summary on 11-10-2024 Emergency Department Summary [facility] Medical Records Department [address] [place] [address] Emergency Department Summary 11/10/24 MR#: [id number] Acct: [id number] Name: KAMI WATTS Rep #: [id number] : 1965 59 From: Gómez Escamilla DO PCP: Dr. Earnest Dueñas MD Status:ADM IN Location: [address] History of Present Illness Chief Complaint: Substance Abuse [facility] Medical History (Updated 11/10/24 @ 18:31 by [...] History obtained from others: none Consults: none [facility] Narrative: Patient was initially hypertensive with blood pressure 170s over 98 otherwise afebrile and nontoxic- appearing. Medical clearance labs were obtained. ALL IMAGES (IF OBTAINED) HAVE BEEN PERSONALLY REVIEWED AND INTERPRETED (more content not included)... Normal [facility] H AND P Exam - [facility] 11-10-2024 H&P Exam - Hospitalist [facility] Medical Records Department [address] [place] [address] H P Exam - Hospitalist 11/10/24 4135 MR#: [id number] Acct: [id number] Name: KAMI WATTS Rep #: [id number] : 1965 59 From: Kayli Slater MD PCP: Dr. Earnest Dueñas MD Status:ADM IN Location: MS3 VT147-5 HPI - General General Date of Admission: 11/10/24 Date of Service: 11/10/24 Chief Complaint: ETOH detox HPI Narrative KAMI WATTS, is a 59 F with history of alcohol, tobacco, and substance use who presented [facility] ED 11/10/2024 for alcohol detox. She is [...] nausea but ROS otherwise negative [facility] Medical History (Updated 08/17/24 @ 14:21 by [...] 0.300, Neut (more content not included)... Normal [facility] Liver Profileon 11-10-2024 Albumin [Mass/Vol] 3.8 g/dL Normal 3.2-5.0 [facility] Comment on above: Order Comment: Add o nto previous labs if possible Performed By: #### L 100.0100, L500.4050, L300.3900, L505.5000, L501.9100 #### [facility] [address] [place], [address] ALK P 122 U/L High 45-117 [facility] Comment on above: Order Comment: Add o nto previous labs if possible Performed By: #### L 100.0100, L500.4050, L300.3900, L505.5000, L501.9100 #### [facility] [address] [place], [address] ALT [Catalytic activity/Vol] 20 U/L Normal 13-56 [facility] Comment on above: Order Comment: Add o nto previous labs if possible Performed By: #### L 100.0100, L500.4050, L300.3900, L505.5000, L501.9100 #### [facility] [address] [place], [address] AST [Catalytic activity/Vol] 20 U/L Normal 15-37 [facility] Comment on above: Order Comment: Add o nto previous labs if possible Performed By: #### L 100.0100, L500.4050, L300.3900, L505.5000, L501.9100 #### [facility] [address] [place], [address] Bilirubin [Mass/Vol] 0.40 mg/dL Normal 0.20-1.00 [facility] Comment on above: Order Comment: Add o nto previous labs if possible Result Comment: For patients on eltrombopag therapy, use of Dimension [place] TBIL is not recommended. Performed By: #### L 100.0100, L500.4050, L300.3900, L505.5000, L501.9100 #### [facility] [address] [place], [address] Bilirubin.direct [Mass/Vol] 0.13 mg/dL Normal 0.00-0.30 [facility] Comment on above: Order Comment: Add o nto previous labs if possible Performed By: #### L 100.0100, L500.4050, L300.3900, L505.5000, L501.9100 #### [facility] [address] [place], [address] Globulin (S) [Mass/Vol] 3.2 g/dL Normal 2.2-4.2 [facility] Comment on above: Order Comment: Add o nto previous labs if possible Performed By: #### L 100.0100, L500.4050, L300.3900, L505.5000, L501.9100 #### [facility] [address] [place], [address] T PROT 7.0 g/dL Normal 6.4-8.2 [facility] Comment on above: Order Comment: Add o nto previous labs if possible Performed By: #### L 100.0100, L500.4050, L300.3900, L505.5000, L501.9100 #### [facility] [address] [place], [address] Prothrombin Time w/INRon INR Coag (PPP) [Relative time] 1.1 {INR} Normal [facility] Comment on above: Order Comment: CLEAN CATCH Performed By: #### L 400.0001 #### [facility] [address] [place], [address] PT Coag (PPP) [Time] 14.0 s Normal 11.7-14.9 [facility] Comment on above: Order Comment: CLEAN CATCH Performed By: #### L 400.0001 #### [facility] [address] [place], [address] Urine Drug Screen (VISTA)on 11-10-2024 AMPHETAMINES Negative Normal <1000 ng/mL [facility] Comment on above: Performed By: #### L 400.0001 #### [facility] [address] [facility] [address] BARBITIURATES Negative Normal < 200 ng/mL [facility] Comment on above: Performed By: #### L 400.0001 #### [facility] [address] [facility] [address] BENZODIAZIPINE Negative Normal < 200 ng/mL [facility] Comment on above: Performed By: #### L 400.0001 #### [facility] [address] [place], [address] COCAINE Negative Normal < 300 ng/mL [facility] Comment on above: Performed By: #### L 400.0001 #### [facility] [address] [place] [address] ECSTACY Negative Normal < 500 ng/mL [facility] Comment on above: Performed By: #### L 400.0001 #### [facility] [address] [facility] [address] METHADONE Negative Normal < 300 ng/mL [facility] Comment on above: Performed By: #### L 400.0001 #### [facility] [address] [facility] [address] OPIATES Negative Normal < 300 ng/mL [facility] Comment on above: Performed By: #### L 400.0001 #### [facility] [address] [place], [address] PCP Negative Normal < 25 ng/mL [facility] Comment on above: Performed By: #### L 400.0001 #### [facility] [address] [place], [place], [address] THC Negative Normal < 50 ng/mL [facility] Comment on above: Performed By: #### L 400.0001 #### [facility] [address] [place], [place], [address] VISTA UDS PH 7 Normal [facility] Comment on above: Performed By: #### L 400.0001 #### [facility] [address] [place], [place], [address] CNOVon 11-01-2024 CNOV Office Visit ([facility] ) KAMI WATTS ([id number]) 1965 F R Date Time Provider Department 11/01/24 1:45 PM JESS [facility]LL[facility] During your visit today, we recorded the following information about you: Temperature Pulse Respiration Blood pressure 98 degrees 68/minute 18/minute 148/86 Weight 84.1 kg Jess Ellis PA 11/01/2024 1:57 PM Signed This note was created using ioBridgeriter. Subjective Kami Watts is a 59 year [...] recently sick. Patient has not taken anything [id number] for symptoms. PAST MEDICAL HISTORY Diagnosis Date [...] Disease Mother Hypertension Mother Hearing Loss Father ND/ colon cancer Stroke Father Diabetes Father Hypertension Father Aneurysm Father Coronary Artery Disease Maternal Grandmother Hypertension Maternal Grandmother Ischemic Heart Disease Maternal Grandfather Hypertension Paternal Grandmother Coronary Artery Disease Paternal Grandmother Coronary Artery Disease Paternal Grandfather (more content not included)... Normal [facility] Vel 10-06-2024 DANNIELLE Telephone (FAMPWS) KAMI WATTS ([id number]) 1965 F NFR Date Time Provider Department [...] Status:Closed by OBEY AGEE on 10/06/24 Normal [facility] Thyroid Stim Hormone (TSH)on 08-17-2024 TSH 0.711 uIU/mL Normal 0.358-3.740 [facility] Comment on above: Performed By: #### L 100.0100, L500.4050, L300.3900, L505.5000, L501.9100 #### [facility] [address] [place], [address] Vitamin D,25 Hydroxyon 08-17 Vitamin D 25-OH 24.1 ng/mL Normal [facility] Comment on above: Result Comment: Caryl min D 25(OH) Status Range Deficiency <20 ng/mL (50nmol/L) Insufficiency 20 - 30 ng/mL (50 - 75 nmol/L) Sufficiency 30 - 100 ng/mL (75 - 250 nmol/L) Toxicity >100 ng/mL (>250 nmol/L) Performed By: #### L 100.0100, L500.4050, L300.3900, L505.5000, L501.9100 #### [facility] [address] [place], [address] Abdomen/Pelvis without Conto n 08-05-2024 Abdomen/Pelvis without Cont [facility] [address] [place] [address] Abdomen/Pelvis without Cont MR#: [id number] Acct: [id number] Name: KAMI WATTS Rep #: [id number] : 1965 F 59 From: Daniel Rajan MD PCP: Dr. Earnest Dueañs MD Status: REG ER Study: Abdomen/Pelvis without Cont Date of Exam: 07/24 02/13 Exam# [id number] Ordering Dr: Calvin Lopez [place] [id number] EXAM: CT ABDOMEN AND PELVIS WITHOUT INTRAVENOUS [...] Calvin Lopez MD; Dr. Earnest Dueñas MD Wildlife Refuge Specialist: Signed Normal [facility] Basic Metabolic Profile (BMP )on 08-05-2024 BUN/CRE 21.8 RATIO High 10-20 [facility] Comment on above: Performed By: #### L 100.0100, L500.4050, L300.3900, L505.5000, L501.9100 #### [facility] [address] [place], [address] CA,Total 9.8 mg/dL Normal 8.5-10.1 [facility] Comment on above: Performed By: #### L 100.0100, L500.4050, L300.3900, L505.5000, L501.9100 #### [facility] [address] [place], [address] Chloride [Moles/Vol] 109 mmol/L High 98-107 [facility] Comment on above: Performed By: #### L 100.0100, L500.4050, L300.3900, L505.5000, L501.9100 #### [facility] [address] [place], [address] CO2 [Moles/Vol] 24.0 mmol/L Normal 21.0-32.0 [facility] Comment on above: Performed By: #### L 100.0100, L500.4050, L300.3900, L505.5000, L501.9100 #### [facility] [address] [place], [address] Creatinine [Mass/Vol] 0.64 mg/dL Normal 0.55-1.02 [facility] Comment on above: Result Comment: The validity of the calculated GFR GFRAA in patients over 70 years has not been determined. Clinical correlation is essential. Performed By: #### L 100.0100, L500.4050, L300.3900, L505.5000, L501.9100 #### [facility] [address] [place], [address] EST GFR - AA 122 mL/min Normal >60 [facility] Comment on above: Result Comment: Afri can [place] GFR Calc Performed By: #### L 100.0100, L500.4050, L300.3900, L505.5000, L501.9100 #### [facility] [address] [place], [address] GAP 7 Normal 5-15 [facility] Comment on above: Performed By: #### L 100.0100, L500.4050, L300.3900, L505.5000, L501.9100 #### [facility] [address] [place], [address] GFR/1.73 sq M.predicted among non-blacks MDRD (S/P/Bld) [Vol rate/Area] 101 mL/min/{1.73_m2} Normal >60 [facility] Comment on above: Result Comment: Non- GFR Calc Performed By: #### L 100.0100, L500.4050, L300.3900, L505.5000, L501.9100 #### [facility] [address] [place], [address] Glucose [Mass/Vol] 119 mg/dL High 74-106 [facility] Comment on above: Result Comment: Fast ing Glucose result from 100 to 125 mg/dL suggests IMPAIRED HOMEOSTASIS per A.D.A. criteria. Performed By: #### L 100.0100, L500.4050, L300.3900, L505.5000, L501.9100 #### [facility] [address] [place], [address] Potassium [Moles/Vol] 4.0 mmol/L Normal 3.5-5.1 [facility] Comment on above: Performed By: #### L 100.0100, L500.4050, L300.3900, L505.5000, L501.9100 #### [facility] [address] [place], [address] Sodium [Moles/Vol] 140 mmol/L Normal 136-145 [facility] Comment on above: Performed By: #### L 100.0100, L500.4050, L300.3900, L505.5000, L501.9100 #### [facility] [address] [place], [address] Urea nitrogen [Mass/Vol] 14 mg/dL Normal 7-18 [facility] Comment on above: Performed By: #### L 100.0100, L500.4050, L300.3900, L505.5000, L501.9100 #### [facility] [address] [place], [address] CBC W/Diff, Automatedon 09-11 25-2023 Absolute Lymph 1.31 X10 3/uL Normal 0.83-4.51 [facility] Comment on above: Performed By: #### L 100.0100, L500.4050, L300.3900, L505.5000, L501.9100 #### [facility] [address] [place], [address] Absolute Neut 10.4 X10 3/uL High 2.0-7.7 [facility] Comment on above: Performed By: #### L 100.0100, L500.4050, L300.3900, L505.5000, L501.9100 #### [facility] [address] [place], [address] Basophils/100 WBC (Bld) 0.6 % Normal 0-1 [facility] Comment on above: Performed By: #### L 100.0100, L500.4050, L300.3900, L505.5000, L501.9100 #### [facility] [address] [place], [address] Eosinophils/100 WBC (Bld) 0.5 % Normal 0-5 [facility] Comment on above: Performed By: #### L 100.0100, L500.4050, L300.3900, L505.5000, L501.9100 #### [facility] [address] [place], [address] Erythrocyte distribution width (RBC) [Ratio] 12.8 % Normal 11.6-14.6 [facility] Comment on above: Performed By: #### L 100.0100, L500.4050, L300.3900, L505.5000, L501.9100 #### [facility] [address] [place], [address] Hematocrit (Bld) [Volume fraction] 46.5 % Normal 37-47 [facility] Comment on above: Performed By: #### L 100.0100, L500.4050, L300.3900, L505.5000, L501.9100 #### [facility] [address] [place], [address] Hemoglobin (Bld) [Mass/Vol] 15.3 g/dL High 12.0-15.0 [facility] Comment on above: Performed By: #### L 100.0100, L500.4050, L300.3900, L505.5000, L501.9100 #### [facility] [address] [place], [address] IG% 0.500 Normal 0.0-0.9 [facility] Comment on above: Result Comment: IG% - Immature Granulocytes (promyelocytes, myelocytes and metamyelocytes) > 1% indicates that a LEFT SHIFT is Present. Performed By: #### L 100.0100, L500.4050, L300.3900, L505.5000, L501.9100 #### [facility] [address] [place], [address] Lymphocytes/100 WBC (Bld) 10.7 % Low 19-41 [facility] Comment on above: Performed By: #### L 100.0100, L500.4050, L300.3900, L505.5000, L501.9100 #### [facility] [address] [place], [address] MCH (RBC) [Entitic mass] 30.8 pg Normal 27.0-32.0 [facility] Comment on above: Performed By: #### L 100.0100, L500.4050, L300.3900, L505.5000, L501.9100 #### [facility] [address] [place], [address] MCHC (RBC) [Mass/Vol] 32.9 g/dL Normal 32-36 [facility] Comment on above: Performed By: #### L 100.0100, L500.4050, L300.3900, L505.5000, L501.9100 #### [facility] [address] [place], [address] MCV (RBC) [Entitic vol] 93.6 fL Normal 81-99 [facility] Comment on above: Performed By: #### L 100.0100, L500.4050, L300.3900, L505.5000, L501.9100 #### [facility] [address] [place], [address] Monocytes/100 WBC (Bld) 3.3 % Normal 0-10 [facility] Comment on above: Performed By: #### L 100.0100, L500.4050, L300.3900, L505.5000, L501.9100 #### [facility] [address] [place], [address] Neutrophils/100 WBC (Bld) 84.4 % High 47-70 [facility] Comment on above: Performed By: #### L 100.0100, L500.4050, L300.3900, L505.5000, L501.9100 #### [facility] [address] [place], [address] Nucleated RBC (Bld) [#/Vol] 0 10*3/uL Normal 0-5 [facility] Comment on above: Performed By: #### L 100.0100, L500.4050, L300.3900, L505.5000, L501.9100 #### [facility] [address] [place], [address] Platelet mean volume (Bld) [Entitic vol] 10.2 fL Normal 6.2-12.0 [facility] Comment on above: Performed By: #### L 100.0100, L500.4050, L300.3900, L505.5000, L501.9100 #### [facility] [address] [place], [address] Platelets (Bld) [#/Vol] 318 10*3/uL Normal 150-450 [facility] Comment on above: Performed By: #### L 100.0100, L500.4050, L300.3900, L505.5000, L501.9100 #### [facility] [address] [place], [address] RBC (Bld) [#/Vol] 4.97 10*6/uL Normal 4.2-5.4 [facility] Comment on above: Performed By: #### L 100.0100, L500.4050, L300.3900, L505.5000, L501.9100 #### [facility] [address] [place], [address] RDW SD 43.8 fl Normal 35.1-43.9 [facility] Comment on above: Performed By: #### L 100.0100, L500.4050, L300.3900, L505.5000, L501.9100 #### [facility] [address] [place], [place], [address] WBC (Bld) [#/Vol] 12.3 10*3/uL High 4.4-11.0 [facility] Comment on above: Performed By: #### L 100.0100, L500.4050, L300.3900, L505.5000, L501.9100 #### [facility] [address] [place], [place], [address] [facility] KAMI WATTS ([id number]) 1965 F NFR Date Time Provider Department 08/05/24 VIVI ASHRAF [facility] During your visit today, we recorded the [...] Status:Closed by DALIA FARRIS on 08/06/24 Normal [facility] Emergency Department Summary on 08-05-2024 Emergency Department Summary [facility] Medical Records Department [address] [place] [address] Emergency Department Summary 08/05/24 MR#: [id number] Acct: [id number] Name: KAMI WATTS Rep #: [id number] : 1965 59 From: Calvin Lopez MD [...] and other (more content not included)... Normal [facility] Urinalysis, Completeon 08-05 BACTERIA 2+ /hpf Normal None Seen [facility] Comment on above: Order Comment: CLEAN CATCH Performed By: #### L 400.0001 #### [facility] [address] [place], [address] CA OX CRYSTAL 1+ /hpf Normal [facility] Comment on above: Order Comment: CLEAN CATCH Performed By: #### L 400.0001 #### [facility] [address] [place], [address] RBC 10-25 SEEN Normal 0-5 [facility] Comment on above: Order Comment: CLEAN CATCH Performed By: #### L 400.0001 #### [facility] [address] [place], [address] WBC 0-5 SEEN Normal 0-5 [facility] Comment on above: Order Comment: CLEAN CATCH Performed By: #### L 400.0001 #### [facility] [address] [place], [address] EPI,SQUAMOUS 0-5 SEEN Normal 5-10 [facility] Comment on above: Order Comment: CLEAN CATCH Performed By: #### L 400.0001 #### [facility] [address] [place], [address] Mucus Ql (Urine sed) 2+ /hpf Normal [facility] Comment on above: Order Comment: CLEAN CATCH Performed By: #### L 400.0001 #### [facility] [address] [place], [address] BACTERIA Normal None Seen [facility] Comment on above: Order Comment: CLEAN CATCH Result Comment: DUPL ICATE Performed By: #### L 400.0001 #### [facility] [address] [place], [address] BILIRUBIN URINE Normal Negative [facility] Comment on above: Order Comment: CLEAN CATCH Result Comment: DUPL ICATE Performed By: #### L 400.0001 #### [facility] [address] [place], [address] Clarity (U) Normal Clear [facility] Comment on above: Order Comment: CLEAN CATCH Result Comment: DUPL ICATE Performed By: #### L 400.0001 #### [facility] [address] [place], [address] Color (U) Normal Yellow [facility] Comment on above: Order Comment: CLEAN CATCH Result Comment: DUPL ICATE Performed By: #### L 400.0001 #### [facility] [address] [place], [address] EPI,SQUAMOUS Normal 5-10 [facility] Comment on above: Order Comment: CLEAN CATCH Result Comment: DUPL ICATE Performed By: #### L 400.0001 #### [facility] [address] [place], [address] GLUCOSE, UR Normal Normal [facility] Comment on above: Order Comment: CLEAN CATCH Result Comment: DUPL ICATE Performed By: #### L 400.0001 #### [facility] [address] [place], [address] KETONE UR Normal Negative [facility] Comment on above: Order Comment: CLEAN CATCH Result Comment: DUPL ICATE Performed By: #### L 400.0001 #### [facility] [address] [place], [address] LEUK ESTERASE Normal Negative [facility] Comment on above: Order Comment: CLEAN CATCH Result Comment: DUPL ICATE Performed By: #### L 400.0001 #### [facility] [address] [place], [address] Mucus Ql (Urine sed) Normal [facility] Comment on above: Order Comment: CLEAN CATCH Result Comment: DUPL ICATE Performed By: #### L 400.0001 #### [facility] [address] [place], [address] Nitrite Ql (U) Normal Negative [facility] Comment on above: Order Comment: CLEAN CATCH Result Comment: DUPL ICATE Performed By: #### L 400.0001 #### [facility] [address] [place], [address] OCCULT BLOOD-UR Normal Negative [facility] Comment on above: Order Comment: CLEAN CATCH Result Comment: DUPL ICATE Performed By: #### L 400.0001 #### [facility] [address] [place], [address] pH UR Normal 5.0 - 8.0 [facility] Comment on above: Order Comment: CLEAN CATCH Result Comment: DUPL ICATE Performed By: #### L 400.0001 #### [facility] [address] [place], [address] PROT DIPSTX Normal Negative [facility] Comment on above: Order Comment: CLEAN CATCH Result Comment: DUPL ICATE Performed By: #### L 400.0001 #### [facility] [address] [place], [address] RBC Normal 0-5 [facility] Comment on above: Order Comment: CLEAN CATCH Result Comment: DUPL ICATE Performed By: #### L 400.0001 #### [facility] [address] [place], [address] SP.GR. DIPSTX Normal 1.002-1.030 [facility] Comment on above: Order Comment: CLEAN CATCH Result Comment: DUPL ICATE Performed By: #### L 400.0001 #### [facility] [address] [place], [address] UR Preservative Normal [facility] Comment on above: Order Comment: CLEAN CATCH Result Comment: DUPL ICATE Performed By: #### L 400.0001 #### [facility] [address] [place], [address] UROBILI Normal Normal [facility] Comment on above: Order Comment: CLEAN CATCH Result Comment: DUPL ICATE Performed By: #### L 400.0001 #### [facility] [address] [place], [address] WBC Normal 0-5 [facility] Comment on above: Order Comment: CLEAN CATCH Result Comment: DUPL ICATE Performed By: #### L 400.0001 #### [facility] [address] [place], [address] Bacteria Ur Culton 4 Bacteria identified Cx Nom (U) ORGANISM ID: 1 <10,000 CFU/ml Normal urogenital aris Normal [facility] Comment on above: Performed By: #### 6 30-4 ####[facility] [id number] [facility] [id number] [place] [address] [place] CNOVon 08-04-2024 CNOV Office Visit (UCWSTR ) KAMI WATTS ([id number]) 1965 F NFR Date Time Provider Department 08/04/24 12:30 PM NNAMDI MACDONALD [facility] During your visit today, we recorded the following information about you: Temperature Pulse Respiration Blood pressure 97.8 degrees 71/minute 18/minute 114/78 Weight 78.8 kg Nnamdi Macdonald APRN.[employer] BUSINESS ADMINISTRATOR 08/04/2024 12:07 PM Signed CC: Patient presents [...] Disease Mother Hypertension Mother Hearing Loss Father ND/ colon cancer Stroke Father Diabete (more content not included)... Normal [facility] UA DIP, URINE (POC)on 2023 BILIRUBIN UA (POCT) Negative Negative [facility] CLARITY UA (POCT) Clear [facility] COLOR UA (POCT) Yellow [facility] GLUCOSE UA (POCT) Negative Negative mg/dL [facility] Hemoglobin Ql (U) Moderate Abnormal Negative [facility] Interpretation and review of laboratory results Abnormal [facility] KETONE UA (POCT) Negative Negative mg/dL [facility] LEUKOCYTES UA (POCT) Negative Negative [facility] NITRITE UA (POCT) Negative Negative [facility] PH UA (POCT) 5.5 4.5 - 8.0 [facility] Protein Ql (U) Negative Negative mg/dL [facility] SPECIFIC GRAVITY UA (POCT) >=1.030 1.005 - 1.030 [facility] UROBILINOGEN UA (POCT) 0.2 Normal E.U./dL [facility] Location:[address], [place], [place], [id number] [place] [address] POINT OF CARE [facility] L501.5101on 07-15-2024 GGTP 14 IU/L Normal 0-60 [facility] Comment on above: Result Comment: Perf ormed at: CB - [facility] [address] [id number] Building Maintenance Superintendent: J Carlos Allen PhD, Phone: [phone] Performed By: #### L 1000100, L500.4050, L300.3900, L505.5000, L501.9100 #### [facility] [address] [facility] [place], [place], [id number] Alcohol, Blood (Medical)-Ser umon 07-13-2024 SERUM ETOH 59.0 mg/dL Normal [facility] Comment on above: Result Comment: The serum:whole blood ethanol ratio is approximately 1.14 and varies slightly with hematocrit. Medical Alcohol reference interval and critical value in non-tolerant individuals; 50 - 100 Impairment 100 Intoxication 100 - 250 Severe Poisoning 250 - 400 Deep/possible fatal coma Performed By: #### L 100.0100, L500.4050, L300.3900, L505.5000, L501.9100 #### [facility] [address] [place], [address] CBC W/Diff, Automatedon 06-24 Absolute Lymph 3.22 X10 3/uL Normal 0.83-4.51 [facility] Comment on above: Performed By: #### L 100.0100, L500.4050, L300.3900, L505.5000, L501.9100 #### [facility] [address] [place], [address] Absolute Neut 4.5 X10 3/uL Normal 2.0-7.7 [facility] Comment on above: Performed By: #### L 100.0100, L500.4050, L300.3900, L505.5000, L501.9100 #### [facility] [address] [place], [address] Basophils/100 WBC (Bld) 0.9 % Normal 0-1 [facility] Comment on above: Performed By: #### L 100.0100, L500.4050, L300.3900, L505.5000, L501.9100 #### [facility] [address] [place], [address] Eosinophils/100 WBC (Bld) 3.8 % Normal 0-5 [facility] Comment on above: Performed By: #### L 100.0100, L500.4050, L300.3900, L505.5000, L501.9100 #### [facility] [address] [place], [address] Erythrocyte distribution width (RBC) [Ratio] 13.5 % Normal 11.6-14.6 [facility] Comment on above: Performed By: #### L 100.0100, L500.4050, L300.3900, L505.5000, L501.9100 #### [facility] [address] [place], [address] Hematocrit (Bld) [Volume fraction] 45.8 % Normal 37-47 [facility] Comment on above: Performed By: #### L 100.0100, L500.4050, L300.3900, L505.5000, L501.9100 #### [facility] [address] [place], [address] Hemoglobin (Bld) [Mass/Vol] 15.8 g/dL High 12.0-15.0 [facility] Comment on above: Performed By: #### L 100.0100, L500.4050, L300.3900, L505.5000, L501.9100 #### [facility] [address] [place], [address] IG% 0.200 Normal 0.0-0.9 [facility] Comment on above: Result Comment: IG% - Immature Granulocytes (promyelocytes, myelocytes and metamyelocytes) > 1% indicates that a LEFT SHIFT is Present. Performed By: #### L 100.0100, L500.4050, L300.3900, L505.5000, L501.9100 #### [facility] [address] [place], [address] Lymphocytes/100 WBC (Bld) 37.0 % Normal 19-41 [facility] Comment on above: Performed By: #### L 100.0100, L500.4050, L300.3900, L505.5000, L501.9100 #### [facility] [address] [place], [address] MCH (RBC) [Entitic mass] 31.2 pg Normal 27.0-32.0 [facility] Comment on above: Performed By: #### L 100.0100, L500.4050, L300.3900, L505.5000, L501.9100 #### [facility] [address] [place], [address] MCHC (RBC) [Mass/Vol] 34.5 g/dL Normal 32-36 [facility] Comment on above: Performed By: #### L 100.0100, L500.4050, L300.3900, L505.5000, L501.9100 #### [facility] [address] [place], [address] MCV (RBC) [Entitic vol] 90.5 fL Normal 81-99 [facility] Comment on above: Performed By: #### L 100.0100, L500.4050, L300.3900, L505.5000, L501.9100 #### [facility] [address] [place], [address] Monocytes/100 WBC (Bld) 6.5 % Normal 0-10 [facility] Comment on above: Performed By: #### L 100.0100, L500.4050, L300.3900, L505.5000, L501.9100 #### [facility] [address] [place], [address] Neutrophils/100 WBC (Bld) 51.6 % Normal 47-70 [facility] Comment on above: Performed By: #### L 100.0100, L500.4050, L300.3900, L505.5000, L501.9100 #### [facility] [address] [place], [address] Nucleated RBC (Bld) [#/Vol] 0 10*3/uL Normal 0-5 [facility] Comment on above: Performed By: #### L 100.0100, L500.4050, L300.3900, L505.5000, L501.9100 #### [facility] [address] [place], [address] Platelet mean volume (Bld) [Entitic vol] 9.3 fL Normal 6.2-12.0 [facility] Comment on above: Performed By: #### L 100.0100, L500.4050, L300.3900, L505.5000, L501.9100 #### [facility] [address] [place], [address] Platelets (Bld) [#/Vol] 358 10*3/uL Normal 150-450 [facility] Comment on above: Performed By: #### L 100.0100, L500.4050, L300.3900, L505.5000, L501.9100 #### [facility] [address] [place], [address] RBC (Bld) [#/Vol] 5.06 10*6/uL Normal 4.2-5.4 [facility] Comment on above: Performed By: #### L 100.0100, L500.4050, L300.3900, L505.5000, L501.9100 #### [facility] [address] [place], [address] RDW SD 45.1 fl High 35.1-43.9 [facility] Comment on above: Performed By: #### L 100.0100, L500.4050, L300.3900, L505.5000, L501.9100 #### [facility] [address] [place], [address] WBC (Bld) [#/Vol] 8.7 10*3/uL Normal 4.4-11.0 [facility] Comment on above: Performed By: #### L 100.0100, L500.4050, L300.3900, L505.5000, L501.9100 #### [facility] [address] [place], [address] Comprehensive Metabolic Prof wion 07-13-2024 Albumin [Mass/Vol] 3.8 g/dL Normal 3.2-5.0 [facility] Comment on above: Performed By: #### L 100.0100, L500.4050, L300.3900, L505.5000, L501.9100 #### [facility] [address] [place], [address] Albumin/Globulin [Mass ratio] 1.1 {ratio} Normal 0.9-2.4 [facility] Comment on above: Performed By: #### L 100.0100, L500.4050, L300.3900, L505.5000, L501.9100 #### [facility] [address] [place], [address] ALK P 108 U/L Normal 45-117 [facility] Comment on above: Performed By: #### L 100.0100, L500.4050, L300.3900, L505.5000, L501.9100 #### [facility] [address] [place], [address] ALT [Catalytic activity/Vol] 15 U/L Normal 13-56 [facility] Comment on above: Performed By: #### L 100.0100, L500.4050, L300.3900, L505.5000, L501.9100 #### [facility] [address] [place], [address] AST [Catalytic activity/Vol] 12 U/L Low 15-37 [facility] Comment on above: Performed By: #### L 100.0100, L500.4050, L300.3900, L505.5000, L501.9100 #### [facility] [address] [place], [address] Bilirubin [Mass/Vol] 0.50 mg/dL Normal 0.20-1.00 [facility] Comment on above: Result Comment: For patients on eltrombopag therapy, use of Dimension [place] TBIL is not recommended. Performed By: #### L 100.0100, L500.4050, L300.3900, L505.5000, L501.9100 #### [facility] [address] [place], [address] BUN/CRE 15.9 RATIO Normal 10-20 [facility] Comment on above: Performed By: #### L 100.0100, L500.4050, L300.3900, L505.5000, L501.9100 #### [facility] [address] [place], [address] CA,Total 9.5 mg/dL Normal 8.5-10.1 [facility] Comment on above: Performed By: #### L 100.0100, L500.4050, L300.3900, L505.5000, L501.9100 #### [facility] [address] [place], [address] Chloride [Moles/Vol] 107 mmol/L Normal 98-107 [facility] Comment on above: Performed By: #### L 100.0100, L500.4050, L300.3900, L505.5000, L501.9100 #### [facility] [address] [place], [address] CO2 [Moles/Vol] 27.0 mmol/L Normal 21.0-32.0 [facility] Comment on above: Performed By: #### L 100.0100, L500.4050, L300.3900, L505.5000, L501.9100 #### [facility] [address] [place], [address] Creatinine [Mass/Vol] 0.76 mg/dL Normal 0.55-1.02 [facility] Comment on above: Result Comment: The validity of the calculated GFR GFRAA in patients over 70 years has not been determined. Clinical correlation is essential. Performed By: #### L 100.0100, L500.4050, L300.3900, L505.5000, L501.9100 #### [facility] [address] [place], [address] ECRCL 80.33 ml/min Normal [facility] Comment on above: Performed By: #### L 100.0100, L500.4050, L300.3900, L505.5000, L501.9100 #### [facility] [address] [place], [address] EST GFR - AA 101 mL/min Normal >60 [facility] Comment on above: Result Comment: Afri can [place] GFR Calc Performed By: #### L 100.0100, L500.4050, L300.3900, L505.5000, L501.9100 #### [facility] [address] [place], [address] GAP 5 Normal 5-15 [facility] Comment on above: Performed By: #### L 100.0100, L500.4050, L300.3900, L505.5000, L501.9100 #### [facility] [address] [place], [address] GFR/1.73 sq M.predicted among non-blacks MDRD (S/P/Bld) [Vol rate/Area] 83 mL/min/{1.73_m2} Normal >60 [facility] Comment on above: Result Comment: Non- GFR Calc Performed By: #### L 100.0100, L500.4050, L300.3900, L505.5000, L501.9100 #### [facility] [address] [place], [address] Globulin (S) [Mass/Vol] 3.4 g/dL Normal 2.2-4.2 [facility] Comment on above: Performed By: #### L 100.0100, L500.4050, L300.3900, L505.5000, L501.9100 #### [facility] [address] [place], [address] Glucose [Mass/Vol] 93 mg/dL Normal 74-106 [facility] Comment on above: Performed By: #### L 100.0100, L500.4050, L300.3900, L505.5000, L501.9100 #### [facility] [address] [place], [address] Potassium [Moles/Vol] 3.9 mmol/L Normal 3.5-5.1 [facility] Comment on above: Performed By: #### L 100.0100, L500.4050, L300.3900, L505.5000, L501.9100 #### [facility] [address] [place], [address] Sodium [Moles/Vol] 139 mmol/L Normal 136-145 [facility] Comment on above: Performed By: #### L 100.0100, L500.4050, L300.3900, L505.5000, L501.9100 #### [facility] [address] [place], [address] T PROT 7.2 g/dL Normal 6.4-8.2 [facility] Comment on above: Performed By: #### L 100.0100, L500.4050, L300.3900, L505.5000, L501.9100 #### [facility] [address] [place], [address] Urea nitrogen [Mass/Vol] 12 mg/dL Normal 7-18 [facility] Comment on above: Performed By: #### L 100.0100, L500.4050, L300.3900, L505.5000, L501.9100 #### [facility] [address] [place], [address] Emergency Department Summary on 07-13-2024 Emergency Department Summary [facility] Medical Records Department [address] [place] [address] Emergency Department Summary 07/13/24 MR#: [id number] Acct: [id number] Name: KAMI WATTS Rep #: [id number] : 1965 59 From: Shyann Orosco DO [...] She states she is following with Dr. Mnaning in 180 and would like to quit [...] time. States she is a heavy smoker. [facility] Medical History Wears dentures Wears glasses Post-menopausal [...] normalized wi (more content not included)... Normal [facility] H AND P Exam - Hospitaliston 07-13-2024 H&P Exam - Hospitalist [facility] Medical Records Department [address] [place] [address] H P Exam - Hospitalist 07/13/24 1841 MR#: [id number] Acct: [id number] Name: KAMI WATTS Rep #: [id number] : 1965 59 From: Lokesh Phoenix MD [...] Suboxone. She had used IV needles, Percocet, [place] and heroin in the past. She had a history of hepatitis C, completed full treatment about 6 to 7 years ago, she does not remember well Patient also smokes 1 pack/day and previously using 2 pack/day since teenage 14 to 15 years of age. Labs, vitals reviewed [facility] Medical History Wears dentures Wears glasses Post-menopausal [...] Atraumatic, PERRL (more content not included)... Normal [facility] Prothrombin Time w/INRon INR Coag (PPP) [Relative time] 1.1 {INR} Normal [facility] Comment on above: Performed By: #### L 100.0100, L500.4050, L300.3900, L505.5000, L501.9100 #### [facility] [address] [place], [place], [id number] PT Coag (PPP) [Time] 14.4 s Normal 11.7-14.9 [facility] Comment on above: Performed By: #### L 100.0100, L500.4050, L300.3900, L505.5000, L501.9100 #### [facility] [address] [place], [address] Urine Drug Screen (VISTA)on 07-13-2024 AMPHETAMINES Negative Normal <1000 ng/mL [facility] Comment on above: Performed By: #### L 100.0100, L500.4050, L300.3900, L505.5000, L501.9100 #### [facility] [address] [place], [place], [id number] BARBITIURATES Negative Normal < 200 ng/mL [facility] Comment on above: Performed By: #### L 100.0100, L500.4050, L300.3900, L505.5000, L501.9100 #### [facility] [address] [place], [address] BENZODIAZIPINE Negative Normal < 200 ng/mL [facility] Comment on above: Performed By: #### L 100.0100, L500.4050, L300.3900, L505.5000, L501.9100 #### [facility] [address] [place], [address] COCAINE Negative Normal < 300 ng/mL [facility] Comment on above: Performed By: #### L 100.0100, L500.4050, L300.3900, L505.5000, L501.9100 #### [facility] [address] [place], [address] ECSTACY Negative Normal < 500 ng/mL [facility] Comment on above: Performed By: #### L 100.0100, L500.4050, L300.3900, L505.5000, L501.9100 #### [facility] [address] [place], [address] METHADONE Negative Normal < 300 ng/mL [facility] Comment on above: Performed By: #### L 100.0100, L500.4050, L300.3900, L505.5000, L501.9100 #### [facility] [address] [place], [address] OPIATES Negative Normal < 300 ng/mL [facility] Comment on above: Performed By: #### L 100.0100, L500.4050, L300.3900, L505.5000, L501.9100 #### [facility] [address] [place], [address] PCP Negative Normal < 25 ng/mL [facility] Comment on above: Performed By: #### L 100.0100, L500.4050, L300.3900, L505.5000, L501.9100 #### [facility] [address] [place], [address] THC Positive Abnormal < 50 ng/mL [facility] Comment on above: Performed By: #### L 100.0100, L500.4050, L300.3900, L505.5000, L501.9100 #### [facility] [address] [place], [address] VISTA UDS PH 6 Normal [facility] Comment on above: Performed By: #### L 100.0100, L500.4050, L300.3900, L505.5000, L501.9100 #### [facility] [address] [place], [address] XR Pelvis and Hip - left AP and Lateral frogon 03-22-2024 IMPRESSION: No acute osseous abnormality. Degenerative disease of bilateral hips, left greater than right. Wildlife Refuge Specialist: [employer] Transcribe Date/Time: Mar 22 2024 1:06P Dictated by : MATTY FAJARDO MD This examination was interpreted and the report reviewed and electronically signed by: MATTY FAJARDO MD on Mar 22 2024 1:07PM [facility] DIVISION OF RADIOLOGY * * [...] joint space narrowing. DIVISION OF RADIOLOGY Provider, [facility] - 03/22/2024 * * *Final Report* [...] of bilateral hips, left greater than right. Wildlife Refuge Specialist: PSCB Transcribe Date/Time: Mar 22 2024 1:06P Dictated by : MATTY FAJARDO MD This examination was interpreted and the report reviewed and electronically signed by: MATTY FAJARDO MD on Mar 22 2024 1:07PM EST [facility] XR Pelvis and Hip - left AP and Lateral frogOrdered By: Ccf Provider on 03-22-2024 [facility] CBC panel Auto (Bld)on 03-16 Erythrocyte distribution width (RBC) [Ratio] 13.2 % 11.5 - 15.0 % [facility] Hematocrit (Bld) [Volume fraction] 42.9 % 36.0 - 46.0 % [facility] Hemoglobin (Bld) [Mass/Vol] 14.5 g/dL 11.5 - 15.5 g/dL [facility] Interpretation and review of laboratory results Normal [facility] MCH (RBC) [Entitic mass] 31.5 pg 26.0 - 34.0 pg [facility] MCHC (RBC) [Mass/Vol] 33.8 g/dL 30.5 - 36.0 g/dL [facility] MCV (RBC) [Entitic vol] 93.1 fL 80.0 - 100.0 fL [facility] Nucleated RBC (Bld) [#/Vol] NINF [facility] Platelet mean volume (Bld) [Entitic vol] 10.5 fL 9.0 - 12.7 fL [facility] Platelets (Bld) [#/Vol] 315 10*3/uL [facility] RBC (Bld) [#/Vol] 4.61 10*6/uL 3.90 - 5.2 0 m/uL [facility] WBC (Bld) [#/Vol] 9.22 10*3/uL [facility] XR Pelvis and Hip - left AP and Lateral frogon 03-16-2024 Radiology Study observation (narrative) [facility] COVID & INFLUENZA A/B & RSV NAAT, ROUTINEon 02-29-2024 FLUAV RNA KALI+probe Ql (Unsp spec) Not detected Not Detected [facility] FLUBV RNA KALI+probe Ql (Unsp spec) Not detected Not Detected [facility] RSV A RNA KALI+probe Ql (Unsp spec) Not detected Not Detected [facility] SARS-CoV-2 (COVID-19) RNA KALI+probe Ql (Resp) Not detected See comment [facility] XR Chest PA and Lateralon IMPRESSION: No acute radiographic abnormality. Wildlife Refuge Specialist: PSCPatrica Transcribe Date/Time: Feb 29 2024 10:36A Dictated by : MAICOL ALMANZA MD This examination was interpreted and the report reviewed and electronically signed by: MAICOL ALMANZA MD on Feb 29 2024 10:37AM [facility] DIVISION OF RADIOLOGY * * [...] in the spine. DIVISION OF RADIOLOGY Provider, [facility] - 02/29/2024 * * *Final Report* [...] spine. IMPRESSION IMPRESSION: No acute radiographic abnormality. Wildlife Refuge Specialist: PSCB Transcribe Date/Time: Feb 29 2024 10:36A Dictated by : MAICOL ALMANZA MD This examination was interpreted and the report reviewed and electronically signed by: MAICOL ALMANZA MD on Feb 29 2024 10:37AM EST [facility] Radiology Study observation (narrative) [facility] XR Chest PA and LateralOrder ed By: Ccf Provider on 02-29-2024 [facility] STREP A MOLECULAR (POC)on Procedural Control Valid [facility] Strep A (POCT) Negative Negative [facility] Influenza virus A and B RNA and SARS-CoV-2 (COVID-19) N gene panel KALI+probe (Resp)on 03-24-2023 FLUAV RNA KALI+probe Ql (Unsp spec) Not detected Not Detected [facility] FLUBV RNA KALI+probe Ql (Unsp spec) Not detected Not Detected [facility] SARS-CoV-2 (COVID-19) RNA KALI+probe Ql (Resp) Not detected See comment [facility] STREP A MOLECULAR (POC)on Procedural Control Valid [facility] Strep A (POCT) Negative Negative [facility] CBC W Auto Differential pane l (Bld)on 12-15-2022 Basophils (Bld) [#/Vol] 0.10 10*3/uL <0.11 k/uL [facility] Basophils/100 WBC (Bld) 1.1 % [facility] Differential cell count method Nom (Bld) Auto [facility] Eosinophils (Bld) [#/Vol] 0.26 10*3/uL <0.46 k/uL [facility] Eosinophils/100 WBC (Bld) 3.0 % [facility] Erythrocyte distribution width (RBC) [Ratio] 13.2 % 11.5 - 15.0 % [facility] Hematocrit (Bld) [Volume fraction] 42.2 % 36.0 - 46.0 % [facility] Hemoglobin (Bld) [Mass/Vol] 14.3 g/dL 11.5 - 15.5 g/dL [facility] Immature granulocytes (Bld) [#/Vol] 0.03 10*3/uL <0.10 k/uL [facility] Immature granulocytes/100 WBC (Bld) 0.3 % [facility] Lymphocytes (Bld) [#/Vol] 3.04 10*3/uL 1.00 - 4.00 k/uL [facility] Lymphocytes/100 WBC (Bld) 34.9 % [facility] MCH (RBC) [Entitic mass] 31.0 pg 26.0 - 34.0 pg [facility] MCHC (RBC) [Mass/Vol] 33.9 g/dL 30.5 - 36.0 g/dL [facility] MCV (RBC) [Entitic vol] 91.3 fL 80.0 - 100.0 fL [facility] Monocytes (Bld) [#/Vol] 0.61 10*3/uL <0.87 k/uL [facility] Monocytes/100 WBC (Bld) 7.0 % [facility] Neutrophils (Bld) [#/Vol] 4.67 10*3/uL 1.45 - 7.50 k/uL [facility] Neutrophils/100 WBC (Bld) 53.7 % [facility] Nucleated RBC (Bld) [#/Vol] <0.01 k/uL [facility] Nucleated RBC/100 WBC (Bld) [Ratio] 0.0 /100 WBC [facility] Platelet mean volume (Bld) [Entitic vol] 10.3 fL 9.0 - 12.7 fL [facility] Platelets (Bld) [#/Vol] 372 10*3/uL 150 - 400 k/uL [facility] RBC (Bld) [#/Vol] 4.62 10*6/uL 3.90 - 5.2 0 m/uL [facility] WBC (Bld) [#/Vol] 8.71 10*3/uL 3.70 - 11. 00 k/uL [facility] Absolute lymphocyte counton 03-06-2022 Lymphocytes Auto (Unsp spec) [#/Vol] 2.01 10*3/uL 0.83-4.51 [facility] Work Phone: [phone] Amorphous sediment detection in urine sediment by light microscopyon 03-06-2022 Amorphous sediment LM Ql (Urine sed) 2+ [facility] Work Phone: Basophil percentageon 2021 Basophil percentage 0 SEEN /hpf 0-5 [facility] Work Phone: Basophils/100 WBC (Bld) 0.7 % 0-1 [facility] Work Phone: [phone] Bilirubin [Mass/Vol] 0.20 mg/dL 0.20-1.00 [facility] Work Phone: Comment on above: For patients on eltr ombopag therapy, use of Dimension [place] TBIL is not recommended. Chloride [Moles/Vol] 108 mmol/L 98-107 [facility] Work Phone: Eosinophils/100 WBC (Bld) 3.0 % 0-5 [facility] Work Phone: [phone] Glucose [Mass/Vol] 86 mg/dL 74-106 [facility] Work Phone: Neutrophils (Bld) [#/Vol] 5.4 10*3/uL 2.0-7.7 [facility] Work Phone: Neutrophils/100 WBC (Bld) 64.9 % 47-70 [facility] Work Phone: Potassium [Moles/Vol] 4.3 mmol/L 3.5-5.1 [facility] Work Phone: Protein [Mass/Vol] 6.6 g/dL 6.4-8.2 [facility] Work Phone: Sodium [Moles/Vol] 139 mmol/L 136-145 [facility] Work Phone: WBC (Bld) [#/Vol] 8.3 10*3/uL 4.4-11.0 [facility] Work Phone: Bilirubin Test strip Ql (U)o n 03-06-2022 Bilirubin Ql (U) Negative Negative [facility] Work Phone: Blood erythrocytes count (nu mber/volume)on 03-06-2022 RBC (Bld) [#/Vol] 4.59 10*6/uL 4.2-5.4 [facility] Work Phone: Blood hemoglobin measurement (mass/volume)on 03-06-2022 Hemoglobin (Bld) [Mass/Vol] 14.1 g/dL 12.0-15.0 [facility] Work Phone: Blood lymphocytes/100 leukoc yteson 03-06-2022 Lymphocytes/100 WBC (Bld) 24.2 % 19-41 [facility] Work Phone: Blood monocytes/100 leukocyt eson 03-06-2022 Monocytes/100 WBC (Bld) 6.0 % 0-10 [facility] Work Phone: Blood platelet mean volumeon 03-06-2022 Platelet mean volume (Bld) [Entitic vol] 10.0 fL 6.2-12.0 [facility] Work Phone: Determination of erythrocyte mean corpuscular volume (MCV)on 03-06-2022 MCV (RBC) [Entitic vol] 91.3 fL 81-99 [facility] Work Phone: Hematocrit Auto (Bld) [Volum e fraction]on 03-06-2022 Hematocrit (Bld) [Volume fraction] 41.9 % 37-47 [facility] Work Phone: Ketones Test strip Ql (U)on 03-06-2022 Ketones Ql (U) Negative Negative [facility] Work Phone: Laboratory - Chemistry and C hemistry - challengeon 03-06-2022 ALP [Catalytic activity/Vol] 93 U/L 45-117 [facility] Work Phone: ALT [Catalytic activity/Vol] 18 U/L 13-56 [facility] Work Phone: CO2 [Moles/Vol] 29.0 mmol/L 21.0-32.0 [facility] Work Phone: [phone] Globulin (S) [Mass/Vol] 3.0 g/dL 2.2-4.2 [facility] Work Phone: Lipase [Catalytic activity/Vol] 63 U/L 73-393 [facility] Work Phone: [phone] Urea nitrogen/Creatinine [Mass ratio] 29.9 mg/mg 10-20 [facility] Work Phone: Laboratory - Hematology and Cell countson 03-06-2022 Erythrocyte distribution width (RBC) [Entitic vol] 43.5 fL 35.1-43.9 [facility] Work Phone: Erythrocyte distribution width (RBC) [Ratio] 13.0 % 11.6-14.6 [facility] Work Phone: Immature granulocytes/100 WBC (Bld) 1.200 % 0.0-0.9 [facility] Work Phone: Comment on above: IG% - Immature Granu locytes (promyelocytes, myelocytes and metamyelocytes) > 1% indicates that a LEFT SHIFT is Present. MCH (RBC) [Entitic mass] 30.7 pg 27.0-32.0 [facility] Work Phone: Nucleated RBC/100 WBC (Bld) [Ratio] 0 % 0-5 [facility] Work Phone: MCHC Auto (RBC) [Mass/Vol]on 03-06-2022 MCHC (RBC) [Mass/Vol] 33.7 g/dL 32-36 [facility] Work Phone: Mucus LM Ql (Urine sed)on Mucus Ql (Urine sed) 0 SEEN /hpf [facility] Work Phone: Nitrite Test strip Ql (U)on 03-06-2022 Nitrite Ql (U) Negative Negative [facility] Work Phone: No Panel Informationon 03-06 D-Dimer Quantitative (PE/DVT) < 0.27 FEU/ug/m 0.27-0.49 [facility] Work Phone: Comment on above: NORMAL D-Dimer level (<0.50) indicates no DVT or PE. Estimated Creatinine Clearance Calc 95.17 ml/min [facility] Work Phone: Estimated GFR (MDRD) Amer 141 mL/min >60 [facility] Work Phone: Comment on above: GFR Calc Estimated GFR (MDRD) Non-Af Amer 117 mL/min >60 [facility] Work Phone: Comment on above: Non- GFR Calc Platelets bldon 03-06-2022 Platelets (Bld) [#/Vol] 268 10*3/uL 150-450 [facility] Work Phone: Protein Test strip Ql (U)on 03-06-2022 Protein Ql (U) Negative Negative [facility] Work Phone: Serum or plasma albumin ly urement (mass/volume)on 03-06-2022 Albumin [Mass/Vol] 3.6 g/dL 3.2-5.0 [facility] Work Phone: Serum or plasma albumin/glob ulin mass ratioon 03-06-2022 Albumin/Globulin [Mass ratio] 1.2 {ratio} 0.9-2.4 [facility] Work Phone: Serum or plasma calcium ly urement (mass/volume)on 03-06-2022 Calcium [Mass/Vol] 9.1 mg/dL 8.5-10.1 [facility] Work Phone: Serum or plasma creatinine m easurement (mass/volume)on 03-06-2022 Creatinine [Mass/Vol] 0.57 mg/dL 0.55-1.02 [facility] Work Phone: Comment on above: The validity of the calculated GFR & GFRAA in patients over 70 years has not been determined. Clinical correlation is essential. Serum or plasma urea nitroge n measurement (mass/volume)on 03-06-2022 Urea nitrogen [Mass/Vol] 17 mg/dL 7-18 [facility] Work Phone: Squamous epithelial cells de tection in urine sediment by light microscopyon 03-06-2022 Epithelial cells.squamous LM Ql (Urine sed) 0 SEEN /hpf 5-10 [facility] Work Phone: Thin prep Papanicolaou smear with manual screeningon 03-06-2022 Thin prep Papanicolaou smear with manual screening 12 U/L 15-37 [facility] Work Phone: Thin prep Papanicolaou smear with manual screening 2 5-15 [facility] Work Phone: UA DIP, URINE (POC)on 2021 BILIRUBIN UA (POCT) Negative Negative [facility] CLARITY UA (POCT) Clear [facility] COLOR UA (POCT) Yellow [facility] GLUCOSE UA (POCT) Negative Negative mg/dL [facility] HEMOGLOBIN/BLOOD UA (POCT) Trace-intact Abnormal Negative [facility] KETONE UA (POCT) Negative Negative mg/dL [facility] LEUKOCYTES UA (POCT) Negative Negative [facility] NITRITE UA (POCT) Negative Negative [facility] PH UA (POCT) 6.5 4.5 - 8.0 [facility] Protein Ql (U) Negative Negative mg/dL [facility] SPECIFIC GRAVITY UA (POCT) >=1.030 1.005 - 1.030 [facility] UROBILINOGEN UA (POCT) 0.2 E.U./dL Normal E.U./dL [facility] Urine blood detectionon 02-21 RBC Ql (U) 10 /ul Negative [facility] Work Phone: RBC Ql (U) 0 SEEN /hpf 0-5 [facility] Work Phone: Urine clarityon 03-06-2022 Clarity (U) Sl. Cloudy Clear [facility] Work Phone: Urine color determinationon 03-06-2022 Color (U) Yellow Yellow [facility] Work Phone: Urine glucose detectionon Glucose Ql (U) Normal mg/dl Normal [facility] Work Phone: Urine leukocyte esterase det ection by dipstickon 03-06-2022 Leukocyte esterase Test strip Ql (U) Negative Negative [facility] Work Phone: Urine pHon 03-06-2022 pH (U) 7.0 [pH] 5.0 - 8.0 [facility] Work Phone: Urine sediment bacteria coun t by microscopy (number/high power field)on 03-06-2022 Bacteria LM.HPF (Urine sed) [#/Area] 0 /[HPF] None Seen [facility] Work Phone: Urine specific gravity measu rementon 03-06-2022 Specific gravity (U) [Rel density] 1.020 1.002-1.030 [facility] Work Phone: Urobilinogen Auto test strip Ql (U)on 03-06-2022 Urobilinogen Ql (U) Normal mg/dl Normal [facility] Work Phone: Absolute lymphocyte counton 01-26-2022 Lymphocytes Auto (Unsp spec) [#/Vol] 2.39 10*3/uL 0.83-4.51 [facility] Work Phone: Basophil percentageon 2021 Basophil percentage 0-5 SEEN /hpf [facility] Work Phone: Basophils/100 WBC (Bld) 0.8 % 0-1 [facility] Work Phone: Eosinophils/100 WBC (Bld) 4.6 % 0-5 [facility] Work Phone: Neutrophils (Bld) [#/Vol] 4.2 10*3/uL 2.0-7.7 [facility] Work Phone: Neutrophils/100 WBC (Bld) 56.2 % 47-70 [facility] Work Phone: WBC (Bld) [#/Vol] 7.4 10*3/uL 4.4-11.0 [facility] [facility] Work Phone: Bilirubin [Mass/Vol] 0.40 mg/dL 0.20-1.00 [facility] Work Phone: Comment on above: For patients on eltr ombopag therapy, use of Dimension [place] TBIL is not recommended. Chloride [Moles/Vol] 109 mmol/L 98-107 [facility] Work Phone: Glucose [Mass/Vol] 107 mg/dL 74-106 [facility] Work Phone: Comment on above: Fasting Glucose resu lt from 100 to 125 mg/dL suggests IMPAIRED HOMEOSTASIS per A.D.A. criteria. Potassium [Moles/Vol] 3.8 mmol/L 3.5-5.1 [facility] Work Phone: Protein [Mass/Vol] 6.3 g/dL 6.4-8.2 [facility] Work Phone: Sodium [Moles/Vol] 140 mmol/L 136-145 [facility] Work Phone: Bilirubin Test strip Ql (U)o n 01-26-2022 Bilirubin Ql (U) Negative Negative [facility] Work Phone: Blood erythrocytes count (nu mber/volume)on 01-26-2022 RBC (Bld) [#/Vol] 4.04 10*6/uL 4.2-5.4 [facility] Work Phone: Blood hemoglobin measurement (mass/volume)on 01-26-2022 Hemoglobin (Bld) [Mass/Vol] 13.0 g/dL 12.0-15.0 [facility] Work Phone: Blood lymphocytes/100 leukoc yteson 01-26-2022 Lymphocytes/100 WBC (Bld) 32.2 % 19-41 [facility] Work Phone: Blood monocytes/100 leukocyt eson 01-26-2022 Monocytes/100 WBC (Bld) 5.9 % 0-10 [facility] Work Phone: Blood platelet mean volumeon 01-26-2022 Platelet mean volume (Bld) [Entitic vol] 10.5 fL 6.2-12.0 [facility] Work Phone: Determination of erythrocyte mean corpuscular volume (MCV)on 01-26-2022 MCV (RBC) [Entitic vol] 92.8 fL 81-99 [facility] Work Phone: Hematocrit Auto (Bld) [Volum e fraction]on 01-26-2022 Hematocrit (Bld) [Volume fraction] 37.5 % 37-47 [facility] Work Phone: Ketones Test strip Ql (U)on 01-26-2022 Ketones Ql (U) 5 mg/dl Negative [facility] Work Phone: Laboratory - Chemistry and C hemistry - challengeon 01-26-2022 ALP [Catalytic activity/Vol] 86 U/L 45-117 [facility] Work Phone: ALT [Catalytic activity/Vol] 17 U/L 13-56 [facility] Work Phone: CO2 [Moles/Vol] 27.0 mmol/L 21.0-32.0 [facility] Work Phone: Globulin (S) [Mass/Vol] 2.7 g/dL 2.2-4.2 [facility] Work Phone: Lipase [Catalytic activity/Vol] 53 U/L 73-393 [facility] Work Phone: Urea nitrogen/Creatinine [Mass ratio] 32.1 mg/mg 10-20 [facility] Work Phone: [phone] Laboratory - Hematology and Cell countson 01-26-2022 Erythrocyte distribution width (RBC) [Entitic vol] 45.0 fL 35.1-43.9 [facility] Work Phone: Erythrocyte distribution width (RBC) [Ratio] 13.2 % 11.6-14.6 [facility] Work Phone: Immature granulocytes/100 WBC (Bld) 0.300 % 0.0-0.9 [facility] Work Phone: Comment on above: IG% - Immature Granu locytes (promyelocytes, myelocytes and metamyelocytes) > 1% indicates that a LEFT SHIFT is Present. MCH (RBC) [Entitic mass] 32.2 pg 27.0-32.0 [facility] Work Phone: Nucleated RBC/100 WBC (Bld) [Ratio] 0 % 0-5 [facility] Work Phone: MCHC Auto (RBC) [Mass/Vol]on 01-26-2022 MCHC (RBC) [Mass/Vol] 34.7 g/dL 32-36 [facility] Work Phone: Mucus LM Ql (Urine sed)on Mucus Ql (Urine sed) 0 SEEN /hpf [facility] Work Phone: Nitrite Test strip Ql (U)on 01-26-2022 Nitrite Ql (U) Negative Negative [facility] Work Phone: No Panel Informationon 01-26 Estimated Creatinine Clearance Calc 83.45 ml/min [facility] Work Phone: Estimated GFR (MDRD) Amer 120 mL/min >60 [facility] Work Phone: Comment on above: GFR Calc Estimated GFR (MDRD) Non-Af Amer 99 mL/min >60 [facility] Work Phone: Comment on above: Non- GFR Calc Platelets bldon 01-26-2022 Platelets (Bld) [#/Vol] 261 10*3/uL 150-450 [facility] Work Phone: Protein Test strip Ql (U)on 01-26-2022 Protein Ql (U) Negative Negative [facility] Work Phone: Serum or plasma albumin ly urement (mass/volume)on 01-26-2022 Albumin [Mass/Vol] 3.6 g/dL 3.2-5.0 [facility] Work Phone: Serum or plasma albumin/glob ulin mass ratioon 01-26-2022 Albumin/Globulin [Mass ratio] 1.3 {ratio} 0.9-2.4 [facility] Work Phone: Serum or plasma calcium ly urement (mass/volume)on 01-26-2022 Calcium [Mass/Vol] 8.8 mg/dL 8.5-10.1 [facility] Work Phone: Serum or plasma creatinine m easurement (mass/volume)on 01-26-2022 Creatinine [Mass/Vol] 0.65 mg/dL 0.55-1.02 [facility] Work Phone: Comment on above: The validity of the calculated GFR & GFRAA in patients over 70 years has not been determined. Clinical correlation is essential. Serum or plasma urea nitroge n measurement (mass/volume)on 01-26-2022 Urea nitrogen [Mass/Vol] 21 mg/dL 7-18 [facility] Work Phone: Squamous epithelial cells de tection in urine sediment by light microscopyon 01-26-2022 Epithelial cells.squamous LM Ql (Urine sed) 0-5 SEEN /hpf [facility] Work Phone: Thin prep Papanicolaou smear with manual screeningon 01-26-2022 Thin prep Papanicolaou smear with manual screening 12 U/L 15-37 [facility] Work Phone: Thin prep Papanicolaou smear with manual screening 4 5-15 [facility] Work Phone: Urine blood detectionon RBC Ql (U) 10 /ul Negative [facility] Work Phone: RBC Ql (U) 0-5 SEEN /hpf [facility] Work Phone: Urine clarityon 01-26-2022 Clarity (U) Sl. Cloudy Clear [facility] Work Phone: Urine color determinationon 01-26-2022 Color (U) Yellow Yellow [facility] Work Phone: Urine glucose detectionon Glucose Ql (U) Normal mg/dl Normal [facility] Work Phone: Urine leukocyte esterase det ection by dipstickon 01-26-2022 Leukocyte esterase Test strip Ql (U) 25 /ul Negative [facility] Work Phone: Urine pHon 01-26-2022 pH (U) 5.0 [pH] [facility] Work Phone: Urine sediment bacteria coun t by microscopy (number/high power field)on 01-26-2022 Bacteria LM.HPF (Urine sed) [#/Area] 0 /[HPF] None Seen [facility] Work Phone: Urine specific gravity measu rementon 01-26-2022 Specific gravity (U) [Rel density] 1.025 [facility] Work Phone: Urobilinogen Auto test strip Ql (U)on 01-26-2022 Urobilinogen Ql (U) 1 mg/dl Normal [facility] Work Phone: Absolute lymphocyte counton 01-22-2022 Lymphocytes Auto (Unsp spec) [#/Vol] 2.12 10*3/uL 0.83-4.51 [facility] Work Phone: Basophil percentageon 2021 Basophils/100 WBC (Bld) 0.7 % 0-1 [facility] Work Phone: Bilirubin [Mass/Vol] 0.50 mg/dL 0.20-1.00 [facility] Work Phone: Comment on above: For patients on eltr ombopag therapy, use of Dimension [place] TBIL is not recommended. Chloride [Moles/Vol] 103 mmol/L 98-107 [facility] Work Phone: Eosinophils/100 WBC (Bld) 2.1 % 0-5 [facility] Work Phone: Glucose [Mass/Vol] 91 mg/dL 74-106 [facility] Work Phone: Neutrophils (Bld) [#/Vol] 4.7 10*3/uL 2.0-7.7 [facility] Work Phone: Neutrophils/100 WBC (Bld) 62.3 % 47-70 [facility] Work Phone: Potassium [Moles/Vol] 4.3 mmol/L 3.5-5.1 [facility] Work Phone: Protein [Mass/Vol] 7.5 g/dL 6.4-8.2 [facility] Work Phone: Sodium [Moles/Vol] 138 mmol/L 136-145 [facility] Work Phone: WBC (Bld) [#/Vol] 7.6 10*3/uL 4.4-11.0 [facility] Work Phone: Blood erythrocytes count (nu mber/volume)on 01-22-2022 RBC (Bld) [#/Vol] 4.76 10*6/uL 4.2-5.4 [facility] Work Phone: Blood hemoglobin measurement (mass/volume)on 01-22-2022 Hemoglobin (Bld) [Mass/Vol] 14.6 g/dL 12.0-15.0 [facility] Work Phone: Blood lymphocytes/100 leukoc yteson 01-22-2022 Lymphocytes/100 WBC (Bld) 28.0 % 19-41 [facility] Work Phone: Blood monocytes/100 leukocyt eson 01-22-2022 Monocytes/100 WBC (Bld) 6.5 % 0-10 [facility] Work Phone: Blood platelet mean volumeon 01-22-2022 Platelet mean volume (Bld) [Entitic vol] 10.1 fL 6.2-12.0 [facility] Work Phone: Determination of erythrocyte mean corpuscular volume (MCV)on 01-22-2022 MCV (RBC) [Entitic vol] 88.9 fL 81-99 [facility] Work Phone: Hematocrit Auto (Bld) [Volum e fraction]on 01-22-2022 Hematocrit (Bld) [Volume fraction] 42.3 % 37-47 [facility] Work Phone: Laboratory - Chemistry and C hemistry - challengeon 01-22-2022 ALP [Catalytic activity/Vol] 100 U/L 45-117 [facility] Work Phone: ALT [Catalytic activity/Vol] 18 U/L 13-56 [facility] Work Phone: CO2 [Moles/Vol] 30.0 mmol/L 21.0-32.0 [facility] Work Phone: Globulin (S) [Mass/Vol] 3.5 g/dL 2.2-4.2 [facility] Work Phone: Lipase [Catalytic activity/Vol] 69 U/L 73-393 [facility] Work Phone: Urea nitrogen/Creatinine [Mass ratio] 23.5 mg/mg 10-20 [facility] Work Phone: Laboratory - Hematology and Cell countson 01-22-2022 Erythrocyte distribution width (RBC) [Entitic vol] 43.1 fL 35.1-43.9 [facility] Work Phone: Erythrocyte distribution width (RBC) [Ratio] 13.2 % 11.6-14.6 [facility] Work Phone: Immature granulocytes/100 WBC (Bld) 0.400 % 0.0-0.9 [facility] Work Phone: Comment on above: IG% - Immature Granu locytes (promyelocytes, myelocytes and metamyelocytes) > 1% indicates that a LEFT SHIFT is Present. MCH (RBC) [Entitic mass] 30.7 pg 27.0-32.0 [facility] Work Phone: Nucleated RBC/100 WBC (Bld) [Ratio] 0 % 0-5 [facility] Work Phone: MCHC Auto (RBC) [Mass/Vol]on 01-22-2022 MCHC (RBC) [Mass/Vol] 34.5 g/dL 32-36 [facility] Work Phone: No Panel Informationon 01-22 Estimated Creatinine Clearance Calc 84.76 ml/min [facility] Work Phone: Estimated GFR (MDRD) Amer 123 mL/min >60 [facility] Work Phone: Comment on above: GFR Calc Estimated GFR (MDRD) Non-Af Amer 102 mL/min >60 [facility] Work Phone: Comment on above: Non- GFR Calc Platelets bldon 01-22-2022 Platelets (Bld) [#/Vol] 321 10*3/uL 150-450 [facility] Work Phone: Serum or plasma albumin ly urement (mass/volume)on 01-22-2022 Albumin [Mass/Vol] 4.0 g/dL 3.2-5.0 [facility] Work Phone: Serum or plasma albumin/glob ulin mass ratioon 01-22-2022 Albumin/Globulin [Mass ratio] 1.1 {ratio} 0.9-2.4 [facility] Work Phone: Serum or plasma calcium ly urement (mass/volume)on 01-22-2022 Calcium [Mass/Vol] 9.7 mg/dL 8.5-10.1 [facility] Work Phone: Serum or plasma creatinine m easurement (mass/volume)on 01-22-2022 Creatinine [Mass/Vol] 0.64 mg/dL 0.55-1.02 [facility] Work Phone: Comment on above: The validity of the calculated GFR & GFRAA in patients over 70 years has not been determined. Clinical correlation is essential. Serum or plasma urea nitroge n measurement (mass/volume)on 01-22-2022 Urea nitrogen [Mass/Vol] 15 mg/dL 7-18 [facility] Work Phone: Thin prep Papanicolaou smear with manual screeningon 01-22-2022 Thin prep Papanicolaou smear with manual screening 13 U/L 15-37 [facility] Work Phone: Thin prep Papanicolaou smear with manual screening 5 5-15 [facility] Work Phone: No Panel Informationon 04-13 Radiology Study observation (narrative) [facility] XR Cervical spine AP and Lat eral and obliqueon 04-13-2021 IMPRESSION: Cervical spine degenerative changes with multilevel disc space narrowing and bilateral neural foraminal narrowing. Wildlife Refuge Specialist: [facility] Transcribe Date/Time: Apr 13 2021 9:53P Dictated by : MAICOL ALMANZA MD This examination was interpreted and the report reviewed and electronically signed by: MAICOL ALMANZA MD on Apr 13 2021 9:56PM [facility] DIVISION OF RADIOLOGY * * [...] tissues are normal. DIVISION OF RADIOLOGY Provider, [facility] Tez watson [place] - 04/13/2021 * * *Final Report* * [...] space narrowing and bilateral neural foraminal narrowing. Wildlife Refuge Specialist[facility] Transcribe Date/Time: Apr 13 2021 9:53P Dictated by : MAICOL ALMANZA MD This examination was interpreted and the report reviewed and electronically signed by: MAICOL ALMANZA MD on Apr 13 2021 9:56PM EST [facility] XR Cervical spine AP and Lat eral and obliqueOrdered By: [facility] Provider on 04-13-2021 [facility] XR HIP BILAT 5V PEL/AP/LAT E ACH HIPon 04-13-2021 IMPRESSION: Findings are suggestive of mild degenerative changes in the bilateral hips. Wildlife Refuge Specialist[facility] Transcribe Date/Time: Apr 13 2021 9:56P Dictated by : MAICOL ALMANZA MD This examination was interpreted and the report reviewed and electronically signed by: MAICOL ALMANZA MD on Apr 13 2021 9:59PM [facility] DIVISION OF RADIOLOGY * * [...] the left pelvis. DIVISION OF RADIOLOGY Provider, [facility] - 04/13/2021 * * *Final Report* * [...] mild degenerative changes in the bilateral hips. Wildlife Refuge Specialist: [facility] Transcribe Date/Time: Apr 13 2021 9:56P Dictated by : MAICOL ALMANZA MD This examination was interpreted and the report reviewed and electronically signed by: MAICOL ALMANZA MD on Apr 13 2021 9:59PM [facility] TOXASSURE COMPRon 07-09-2019 TOXASSURE COMPR FINAL Normal () [facility] [place] Comment on above: Order Comment: Urbano long: [...] consultation, please call . === Performed At: [employer] [facility] [address] [place], [place] [id number] [place] PhrmD [phone] Performed By: #### L [id number] #### [facility] [address] [place] [address] # [phone] TOXASSURE COMPRon 06-07-2019 TOXASSURE COMPR FINAL Normal () [facility] [place] Comment on above: Order Comment: Campu s: [...] consultation, please call . === Performed At: [employer] [address] [place], [place] [id number] [place] [facility] [id number] Performed By: #### L [id number] #### [facility] [address] [address] 6-ACETYLMORPHINon 05-06-2019 6-DAYNA TOXASSURE Negative Normal () [facility] Comment on above: Order Comment: Urbano Fonseca Performed By: #### L [id number], [id number] #### [facility] [address] [address] CONFIRMATION 6M Not Detected Normal () [facility] Comment on above: Order Comment: Urbano Fonseca Result Comment: INFC E Result Units: ng/mg creat Testing Threshold: 10 ng/mL This test was developed and its performance characteristics determined by [facility]. It has not been cleared or approved by the Food and Drug Administration. Performed At: [employer] [address] [place], [place] [phone] [place] [facility] [phone] Performed By: #### L [id number], L600.46351 #### [facility] [address] [address] TOXASSURE COMPRon 05-06-2019 TOXASSURE COMPR FINAL Normal () [facility] Comment on above: Order Comment: Urbano [...] call . === Performed By: #### L [id number], L600.12438 #### [facility] [address] [place] [address] 6-ACETYLMORPHINon 04-04-2019 6-DAYNA TOXASSURE Negative Normal () [facility] Comment on above: Order Comment: Urbano long: M Performed By: #### L 600.83199, L600.66733 #### [facility] [address] [place] [address] CONFIRMATION 6M Not Detected Normal () [facility] Comment on above: Order Comment: Urbano s: M Result Comment: INFC E Result Units: ng/mg creat Testing Threshold: 10 ng/mL This test was developed and its performance characteristics determined by [facility]. It has not been cleared or approved by the Food and Drug Administration. Performed At: [employer] [address] [id number] [place] [facility] [phone] Performed By: #### L [id number], L600.22680 #### [facility] [address] [place] [address] TOXASSURE COMPRon 04-04-2019 TOXASSURE COMPR FINAL Normal () [facility] Comment on above: Order Comment: Urbano [...] call . === Performed By: #### L 600.91096, L600.69362 #### [facility] [address] [place] [address] 6-ACETYLMORPHINon 03-08-2019 6-DAYNA TOXASSURE Negative Normal () [facility] [place] Comment on above: Order Comment: Urbano Fonseca Performed By: #### L 600.51312, L600.27195 #### [facility] [address] [place] [address] CONFIRMATION 6M Not Detected Normal () [facility] [place] Comment on above: Order Comment: Campu s: M Result Comment: INFC E Result Units: ng/mg creat Testing Threshold: 10 ng/mL This test was developed and its performance characteristics determined by [facility]. It has not been cleared or approved by the Food and Drug Administration. Performed At: [employer] [address] [place], [place] [phone] [place] [facility] [phone] Performed By: #### L 600.44602, L600.20804 #### [facility] [address] [place] [address] # [phone] TOXASSURE COMPRon 03-08-2019 TOXASSURE COMPR FINAL Normal () [facility] Comment on above: Order Comment: Urbano [...] call . === Performed By: #### L 600.84333, L600.70261 #### [facility] [address] [place] [address] # [phone] Culture Anaerobeon 9 Culture Anaerobe Specimen Comments: VOLAR FINGER RIGHT 2ND DIGIT Culture Observations:--------- --- No anaerobes isolated Susceptibility Data: [facility] Comment on above: Order Comment: VOLAR FINGER RIGHT 2ND DIGIT Performed By: #### C NICHO #### [facility] [address] [place] [address] Culture Wound Aerobic w/ Gra m Ston 12-27-2018 Culture Wound Aerobic w/ Gram St Specimen Comments: VOLAR FINGER RIGHT 2ND DIGIT Direct Exam: Small # WBCs No organisms seen Culture Exam: 1. Pasteurella multocida Small numbers of Susceptibility Data: [facility] Comment on above: Order Comment: GERI wise erformed at additional charge when indicated VOLAR FINGER RIGHT 2ND DIGIT Result Comment: No s ensitivity perfomed on this organism Performed By: #### C XWND #### [facility] [address] [place] [address] Surgical Pathology Depar tmenton 12-27-2018 [facility] Surgical Pathology Department Name KAMI WATTS Pathologist: ZACK TOSCANO MD Date of Procedure: 12/27/2018 Date Received: 12/28/2018 Date Reported 12/30/2018 Submitting Physician: HERNESTO PHAN MD Location: [facility] Copy To/Referring/Attending : EARNEST DUEÑAS M.D. Other External # [id number] FINAL DIAGNOSIS A. VOLAR FINGER, RIGHT SECOND DIGIT: -- PORTION OF FIBROUS TISSUE WITH EDEMA, ACUTE AND CHRONIC INFLAMMATION. sr solutions consultant: Gordon Hernandez M.D. Electronically Signed Out By ZACK TOSCANO MD/Lauren By the signature on this report, the individual or group listed as making the Final Interpretation/Diagnos is certifies that they have reviewed this case. Clinical History: Tendosynovitis right index finger Specimens Submitted As: A: VOLAR FINGER RIGHT SECOND DIGIT Other Case Numbers [id number] Gross Description: Received in formalin, labeled with the patient's name and hospital number and volar finger right second digit, are 2 fragments of pale miller soft tissue measuring #1 0.7 x 0.3 x 0.1 cm and #2 0.4 x 0.2 x 0.1 cm. The specimen is inked. The specimen is submitted in toto in one cassette. EXL exl/12/29/2018 Normal [facility] Comment on above: Performed By: #### U HCS #### [facility] Surgical Pathology Department [address] [facility] [address] Vital Signs Date Time Vital Sign Value Performing Clinician Facility 02-28-2025 11:22-0400 Body mass index (BMI) [Ratio] 34.02 kg/m2 Joan Talley APRN.SCHOOL BUSINESS ADMINISTRATOR Work Phone: [facility] 02-28-2025 11:22-0400 Body weight 86 kg Joan Talley APRN.SCHOOL BUSINESS ADMINISTRATOR Work Phone: [facility] 02-28-2025 11:22-0400 Diastolic blood pressure 96 mm[Hg] Joan Talley APRN.SCHOOL BUSINESS ADMINISTRATOR Work Phone: [facility] 02-28-2025 11:22-0400 Heart rate 83 /min Joan Talley RESIDENT PROGRAM SPECIALIST.SCHOOL BUSINESS ADMINISTRATOR Work Phone: [facility] 02-28-2025 11:22-0400 Systolic blood pressure 145 mm[Hg] Joan Talley APRN.SCHOOL BUSINESS ADMINISTRATOR Work Phone: [facility] 11-01-2024 13:46-0500 Body mass index (BMI) [Ratio] 33.27 kg/m2 Krislyn Aberegg PA Work Phone: [facility] 11-01-2024 13:46-0500 Body temperature 98.01 [degF] Krislyn Aberegg PA Work Phone: [facility] 11-01-2024 13:46-0500 Body weight 84.1 kg Krislyn Aberegg PA Work Phone: [facility] 11-01-2024 13:46-0500 Diastolic blood pressure 86 mm[Hg] Krislyn Aberegg PA Work Phone: [facility] 11-01-2024 13:46-0500 Heart rate 68 /min Krislyn Aberegg PA Work Phone: [facility] 11-01-2024 13:46-0500 Respiratory rate 18 /min Krislyn Aberegg PA Work Phone: [facility] 11-01-2024 13:46-0500 SaO2% (BldA) [Mass fraction] 95 % Krislyn Aberegg PA Work Phone: [facility] 11-01-2024 13:46-0500 Systolic blood pressure 148 mm[Hg] Ramseszinabessy Tobiasangelica MARTIN Work Phone: [facility] 08-04-2024 11:56-0400 Body mass index (BMI) [Ratio] 31.17 kg/m2 Nnamdi Macdonald APRN.SCHOOL BUSINESS ADMINISTRATOR Work Phone: [facility] 08-04-2024 11:56-0400 Body temperature 97.81 [degF] Nnamdi Macdonald APRN.SCHOOL BUSINESS ADMINISTRATOR Work Phone: [facility] 08-04-2024 11:56-0400 Body weight 78.8 kg Nnamdi Macdonald APRN.SCHOOL BUSINESS ADMINISTRATOR Work Phone: [facility] 08-04-2024 11:56-0400 Diastolic blood pressure 78 mm[Hg] Nnamdi Macdonald APRN.SCHOOL BUSINESS ADMINISTRATOR Work Phone: [facility] 08-04-2024 11:56-0400 Heart rate 71 /min Nnamdi Macdonald APRN.SCHOOL BUSINESS ADMINISTRATOR Work Phone: [facility] 08-04-2024 11:56-0400 Respiratory rate 18 /min Nnamdi Macdonald APRN.SCHOOL BUSINESS ADMINISTRATOR Work Phone: [facility] 08-04-2024 11:56-0400 SaO2% (BldA) [Mass fraction] 99 % Nnamdi Macdonald APRN.SCHOOL BUSINESS ADMINISTRATOR Work Phone: [facility] 08-04-2024 11:56-0400 Systolic blood pressure 114 mm[Hg] Nnamdi Macdonald APRN.SCHOOL BUSINESS ADMINISTRATOR Work Phone: [facility] 03-21-2024 10:54-0400 Body mass index (BMI) [Ratio] 32.2 kg/m2 Mima Royal APRN.SCHOOL BUSINESS ADMINISTRATOR Work Phone: [facility] 03-21-2024 10:54-0400 Body temperature 97 [degF] Mima Royal APRN.SCHOOL BUSINESS ADMINISTRATOR Work Phone: [facility] 03-21-2024 10:54-0400 Body weight 81.4 kg Mima Royal RESIDENT PROGRAM SPECIALIST.SCHOOL BUSINESS ADMINISTRATOR Work Phone: [facility] 03-21-2024 10:54-0400 Diastolic blood pressure 66 mm[Hg] Mima Royal RESIDENT PROGRAM SPECIALIST.SCHOOL BUSINESS ADMINISTRATOR Work Phone: [facility] 03-21-2024 10:54-0400 Heart rate 74 /min Mima Royal RESIDENT PROGRAM SPECIALIST.SCHOOL BUSINESS ADMINISTRATOR Work Phone: [facility] 03-21-2024 10:54-0400 Respiratory rate 16 /min Mima Royal RESIDENT PROGRAM SPECIALIST.SCHOOL BUSINESS ADMINISTRATOR Work Phone: [facility] 03-21-2024 10:54-0400 SaO2% (BldA) [Mass fraction] 96 % Mima Royal RESIDENT PROGRAM SPECIALIST.SCHOOL BUSINESS ADMINISTRATOR Work Phone: [facility] 03-21-2024 10:54-0400 Systolic blood pressure 122 mm[Hg] Mima Royal RESIDENT PROGRAM SPECIALIST.SCHOOL BUSINESS ADMINISTRATOR Work Phone: [facility] 03-16-2024 12:37-0400 Body height 159 cm Farzana Llamas PA-C Work Phone: [facility] 03-16-2024 12:37-0400 Body mass index (BMI) [Ratio] 33.05 kg/m2 Farzana Llamas PA-C Work Phone: [facility] 03-16-2024 12:37-0400 Body weight 83.55 kg Farzana Llamas PA-C Work Phone: [facility] 03-16-2024 12:37-0400 Diastolic blood pressure 60 mm[Hg] Farzana Llamas PA-C Work Phone: [facility] 03-16-2024 12:37-0400 Heart rate 88 /min Farzana Llamas PA-C Work Phone: [facility] 03-16-2024 12:37-0400 Respiratory rate 16 /min Farzana Llamas PA-C Work Phone: [facility] 03-16-2024 12:37-0400 SaO2% (BldA) [Mass fraction] 97 % Farzana Llamas PA-C Work Phone: [facility] 03-16-2024 12:37-0400 Systolic blood pressure 112 mm[Hg] Farzana Llamas PA-C Work Phone: [facility] 02-29-2024 10:01-0400 Body temperature 97.81 [degF] Mima Royal RESIDENT PROGRAM SPECIALIST.SCHOOL BUSINESS ADMINISTRATOR Work Phone: [facility] 02-29-2024 10:01-0400 Body weight 85.9 kg Mima Royal RESIDENT PROGRAM SPECIALIST.SCHOOL BUSINESS ADMINISTRATOR Work Phone: [facility] 02-29-2024 10:01-0400 Diastolic blood pressure 84 mm[Hg] Mima Royal RESIDENT PROGRAM SPECIALIST.SCHOOL BUSINESS ADMINISTRATOR Work Phone: [facility] 02-29-2024 10:01-0400 Heart rate 69 /min Mima Royal RESIDENT PROGRAM SPECIALIST.SCHOOL BUSINESS ADMINISTRATOR Work Phone: [facility] 02-29-2024 10:01-0400 Respiratory rate 18 /min Mima Royal RESIDENT PROGRAM SPECIALIST.SCHOOL BUSINESS ADMINISTRATOR Work Phone: [facility] 02-29-2024 10:01-0400 SaO2% (BldA) [Mass fraction] 96 % Mima Royal RESIDENT PROGRAM SPECIALIST.SCHOOL BUSINESS ADMINISTRATOR Work Phone: [facility] 02-29-2024 10:01-0400 Systolic blood pressure 146 mm[Hg] Mima Royal RESIDENT PROGRAM SPECIALIST.SCHOOL BUSINESS ADMINISTRATOR Work Phone: [facility] 04-04-2023 09:51-0400 Body temperature 96.8 [degF] Beverly Praisler-Wood RESIDENT PROGRAM SPECIALIST.SCHOOL BUSINESS ADMINISTRATOR Work Phone: [facility] 04-04-2023 09:51-0400 Body weight 69.4 kg Beverly Praisler-Wood RESIDENT PROGRAM SPECIALIST.SCHOOL BUSINESS ADMINISTRATOR Work Phone: [facility] 04-04-2023 09:51-0400 Diastolic blood pressure 88 mm[Hg] Beverly Praisler-Wood RESIDENT PROGRAM SPECIALIST.SCHOOL BUSINESS ADMINISTRATOR Work Phone: [facility] 04-04-2023 09:51-0400 Heart rate 67 /min Beverly Praisler-Wood RESIDENT PROGRAM SPECIALIST.SCHOOL BUSINESS ADMINISTRATOR Work Phone: [facility] 04-04-2023 09:51-0400 Respiratory rate 20 /min Beverly Praisler-Wood RESIDENT PROGRAM SPECIALIST.SCHOOL BUSINESS ADMINISTRATOR Work Phone: [facility] 04-04-2023 09:51-0400 SaO2% (BldA) [Mass fraction] 98 % Beverly Praisler-Wood RESIDENT PROGRAM SPECIALIST.SCHOOL BUSINESS ADMINISTRATOR Work Phone: [facility] 04-04-2023 09:51-0400 Systolic blood pressure 138 mm[Hg] Beverly Praisler-Wood RESIDENT PROGRAM SPECIALIST.SCHOOL BUSINESS ADMINISTRATOR Work Phone: [facility] 03-23-2023 19:24-0400 Body temperature 96.3 [degF] Krislyn Aberegg PA Work Phone: [facility] 03-23-2023 19:24-0400 Body weight 68.58 kg Krislyn Aberegg PA Work Phone: [facility] 03-23-2023 19:24-0400 Diastolic blood pressure 80 mm[Hg] Krislyn Aberegg PA Work Phone: [facility] 03-23-2023 19:24-0400 Heart rate 78 /min Krislyn Aberegg PA Work Phone: [facility] 03-23-2023 19:24-0400 Respiratory rate 21 /min Krislyn Aberegg PA Work Phone: [facility] 03-23-2023 19:24-0400 SaO2% (BldA) [Mass fraction] 99 % Krislyn Aberegg PA Work Phone: [facility] 03-23-2023 19:24-0400 Systolic blood pressure 118 mm[Hg] Krislyn Aberegg PA Work Phone: [facility] 12-15-2022 09:35-0500 Body weight 67.04 kg Farzana Llamas PA-C Work Phone: [facility] 12-15-2022 09:35-0500 Diastolic blood pressure 86 mm[Hg] Farzana Llamas PA-C Work Phone: [facility] 12-15-2022 09:35-0500 Heart rate 76 /min Farzana Llamas PA-C Work Phone: [facility] 12-15-2022 09:35-0500 Respiratory rate 18 /min Farzana Llamas PA-C Work Phone: [facility] 12-15-2022 09:35-0500 SaO2% (BldA) [Mass fraction] 97 % Farzana Llamas PA-C Work Phone: [facility] 12-15-2022 09:35-0500 Systolic blood pressure 112 mm[Hg] Farzana Llamas PA-C Work Phone: [facility] 10-01-2022 14:30-0500 Body weight 72.12 kg Lou Yu APRN.SCHOOL BUSINESS ADMINISTRATOR Work Phone: [facility] 10-01-2022 14:30-0500 Diastolic blood pressure 64 mm[Hg] Lou Yu APRN.SCHOOL BUSINESS ADMINISTRATOR Work Phone: [facility] 10-01-2022 14:30-0500 Systolic blood pressure 108 mm[Hg] Lou Yu APRN.SCHOOL BUSINESS ADMINISTRATOR Work Phone: [facility] 10-01-2022 09:48-0500 Body height 162.6 cm ARJUN SLAUGHTER MD [facility] 10-01-2022 09:48-0500 Body temperature 97.52 [degF] ARJUN SLAUGHTER MD [facility] 10-01-2022 09:48-0500 Body weight 72.7 kg ARJUN SLAUGHTER MD [facility] 10-01-2022 09:48-0500 Diastolic blood pressure 68 mm[Hg] ARJUN SLAUGHTER MD [facility] 10-01-2022 09:48-0500 Heart rate 69 /min ARJUN SLAUGHTER MD [facility] 10-01-2022 09:48-0500 Respiratory rate 22 /min ARJUN SLAUGHTER MD [facility] 10-01-2022 09:48-0500 Systolic blood pressure 117 mm[Hg] ARJUN SLAUGHTER MD [facility] 09-06-2022 12:11-0400 Body height 162.56 cm [facility] Work Phone: 09-06-2022 12:11-0400 Body mass index (BMI) [Ratio] 28 kg/m2 [facility] Work Phone: 09-06-2022 12:11-0400 Body temperature 96.9 [degF] [facility] Work Phone: 09-06-2022 12:11-0400 Body weight 74.1 kg [facility] Work Phone: 09-06-2022 12:11-0400 Diastolic blood pressure 86 mm[Hg] [facility] Work Phone: 09-06-2022 12:11-0400 Heart rate 69 /min [facility] Work Phone: 09-06-2022 12:11-0400 Respiratory rate 17 /min [facility] Work Phone: 09-06-2022 12:11-0400 SaO2% (BldA) [Mass fraction] 97 % [facility] Work Phone: 09-06-2022 12:11-0400 Systolic blood pressure 126 mm[Hg] [facility] Work Phone: 08-24-2022 11:56-0400 Body height 162.56 cm [facility] Work Phone: 08-24-2022 11:56-0400 Body mass index (BMI) [Ratio] 27.2 kg/m2 [facility] Work Phone: 08-24-2022 11:56-0400 Body temperature 97.2 [degF] [facility] Work Phone: 08-24-2022 11:56-0400 Body weight 71.93 kg [facility] Work Phone: 08-24-2022 11:56-0400 Diastolic blood pressure 77 mm[Hg] [facility] Work Phone: 08-24-2022 11:56-0400 Heart rate 60 /min [facility] Work Phone: 08-24-2022 11:56-0400 Respiratory rate 18 /min [facility] Work Phone: 08-24-2022 11:56-0400 SaO2% (BldA) [Mass fraction] 100 % [facility] Work Phone: 08-24-2022 11:56-0400 Systolic blood pressure 114 mm[Hg] [facility] Work Phone: 07-25-2022 09:01-0400 Body weight 73.94 kg Farzana MARTIN-C Work Phone: [facility] 07-25-2022 09:01-0400 Diastolic blood pressure 70 mm[Hg] Farzana Llamas PA-C Work Phone: [facility] 07-25-2022 09:01-0400 Heart rate 68 /min Farzana Llamas PA-C Work Phone: [facility] 07-25-2022 09:01-0400 Respiratory rate 18 /min Farzana Llamas PA-C Work Phone: [facility] 07-25-2022 09:01-0400 SaO2% (BldA) [Mass fraction] 94 % Farzana Llamas PA-C Work Phone: [facility] 07-25-2022 09:01-0400 Systolic blood pressure 102 mm[Hg] Farzana Llamas PA-C Work Phone: [facility] 06-25-2022 07:28-0400 Body temperature 97.39 [degF] Farzana Llamas PA-C Work Phone: [facility] 06-25-2022 07:28-0400 Body weight 76.66 kg Farzana Llamas PA-C Work Phone: [facility] 06-25-2022 07:28-0400 Diastolic blood pressure 72 mm[Hg] Farzana Llamas PA-C Work Phone: [facility] 06-25-2022 07:28-0400 Heart rate 88 /min Farzana Llamas PA-C Work Phone: [facility] 06-25-2022 07:28-0400 Respiratory rate 18 /min Farzana Llamas PA-C Work Phone: [facility] 06-25-2022 07:28-0400 Systolic blood pressure 100 mm[Hg] Farzana Llamas PA-C Work Phone: [facility] 06-18-2022 11:50-0400 Diastolic blood pressure 68 mm[Hg] [facility] Work Phone: 06-18-2022 11:50-0400 Heart rate 71 /min [facility] Work Phone: 06-18-2022 11:50-0400 Respiratory rate 15 /min [facility] Work Phone: 06-18-2022 11:50-0400 SaO2% (BldA) [Mass fraction] 98 % [facility] Work Phone: 06-18-2022 11:50-0400 Systolic blood pressure 134 mm[Hg] [facility] Work Phone: 06-18-2022 10:25-0400 Body height 162.56 cm [facility] Work Phone: 06-18-2022 10:25-0400 Body mass index (BMI) [Ratio] 29.5 kg/m2 [facility] Work Phone: 06-18-2022 10:25-0400 Body temperature 97.9 [degF] [facility] Work Phone: 06-18-2022 10:25-0400 Body weight 78.01 kg [facility] Work Phone: 04-16-2022 13:44-0400 Body temperature 98.1 [degF] Farzana Llamas PA-C Work Phone: [facility] 04-16-2022 13:44-0400 Body weight 78.02 kg Farzana Llamas PA-C Work Phone: [facility] 04-16-2022 13:44-0400 Diastolic blood pressure 60 mm[Hg] Farzana Llamas PA-C Work Phone: [facility] 04-16-2022 13:44-0400 Heart rate 60 /min Farzana Llamas PA-C Work Phone: [facility] 04-16-2022 13:44-0400 Respiratory rate 16 /min Farzana Llamas PA-C Work Phone: [facility] 04-16-2022 13:44-0400 Systolic blood pressure 82 mm[Hg] Farzana Llamas PA-C Work Phone: [facility] 03-06-2022 12:16-0400 Heart rate 58 /min Dr. Earnest Dueñas Work Phone: [facility] Work Phone: 03-06-2022 12:16-0400 Respiratory rate 16 /min Dr. Earnest Dueñas Work Phone: [facility] Work Phone: 03-06-2022 12:16-0400 SaO2% (BldA) [Mass fraction] 97 % Dr. Earnest Dueñas Work Phone: [facility] Work Phone: 03-06-2022 10:17-0400 Body height 162.[address] Earnest Dueñas Work Phone: [facility] Work Phone: 03-06-2022 10:17-0400 Body mass index (BMI) [Ratio] 29.2 kg/m2 Dr. Earnest Dueñas Work Phone: [facility] Work Phone: 03-06-2022 10:17-0400 Body temperature 96.7 [degF] Dr. Earnest Dueñas Work Phone: [facility] Work Phone: 03-06-2022 10:17-0400 Body weight 77.[address] Earnest Dueñas Work Phone: [facility] Work Phone: 03-06-2022 10:17-0400 Diastolic blood pressure 75 mm[Hg] Dr. Earnest Dueñas Work Phone: [facility] Work Phone: 03-06-2022 10:17-0400 Systolic blood pressure 130 mm[Hg] Dr. Earnest Dueñas Work Phone: [facility] Work Phone: 03-06-2022 09:41-0400 Body weight 79.65 kg Earnest Ramirez APRN.SCHOOL BUSINESS ADMINISTRATOR Work Phone: [facility] 03-06-2022 09:41-0400 Diastolic blood pressure 78 mm[Hg] Earnest Ramirez RESIDENT PROGRAM SPECIALIST.SCHOOL BUSINESS ADMINISTRATOR Work Phone: [facility] 03-06-2022 09:41-0400 Heart rate 64 /min Earnest Ramirez RESIDENT PROGRAM SPECIALIST.SCHOOL BUSINESS ADMINISTRATOR Work Phone: [facility] 03-06-2022 09:41-0400 Respiratory rate 20 /min Earnest Ramirez RESIDENT PROGRAM SPECIALIST.SCHOOL BUSINESS ADMINISTRATOR Work Phone: [facility] 03-06-2022 09:41-0400 SaO2% (BldA) [Mass fraction] 98 % Earnest Ramirez RESIDENT PROGRAM SPECIALIST.SCHOOL BUSINESS ADMINISTRATOR Work Phone: [facility] 03-06-2022 09:41-0400 Systolic blood pressure 120 mm[Hg] Earnest Ramirez RESIDENT PROGRAM SPECIALIST.SCHOOL BUSINESS ADMINISTRATOR Work Phone: [facility] 01-28-2022 09:00-0500 Body mass index (BMI) [Ratio] 30.4 kg/m2 Dr. Earnest Dueñas Work Phone: [facility] Work Phone: 01-28-2022 09:00-0500 Body temperature 97.4 [degF] Dr. Earnest Dueñas Work Phone: [facility] Work Phone: 01-28-2022 09:00-0500 Body weight 80.[address] Earnest Dueñas Work Phone: [facility] Work Phone: 01-28-2022 09:00-0500 Diastolic blood pressure 83 mm[Hg] Dr. Earnest Dueñas Work Phone: [facility] Work Phone: 01-28-2022 09:00-0500 Heart rate 60 /min Dr. Earnest Dueñas Work Phone: [facility] Work Phone: 01-28-2022 09:00-0500 Respiratory rate 17 /min Dr. Earnest Dueñas Work Phone: [facility] Work Phone: 01-28-2022 09:00-0500 SaO2% (BldA) [Mass fraction] 99 % Dr. Earnest Dueñas Work Phone: [facility] Work Phone: 01-28-2022 09:00-0500 Systolic blood pressure 132 mm[Hg] Dr. Earnest Dueñas Work Phone: [facility] Work Phone: 01-26-2022 22:21-0500 Diastolic blood pressure 62 mm[Hg] Dr. Earnest Dueñas Work Phone: [facility] Work Phone: 01-26-2022 22:21-0500 Heart rate 68 /min Dr. Earnest Dueñas Work Phone: [facility] Work Phone: 01-26-2022 22:21-0500 Respiratory rate 16 /min Dr. Earnest Dueñas Work Phone: [facility] Work Phone: 01-26-2022 22:21-0500 SaO2% (BldA) [Mass fraction] 97 % Dr. Earnest Dueñas Work Phone: [facility] Work Phone: 01-26-2022 22:21-0500 Systolic blood pressure 110 mm[Hg] Dr. Earnest Dueñas Work Phone: [facility] Work Phone: 01-26-2022 16:34-0500 Body mass index (BMI) [Ratio] 30.4 kg/m2 Dr. Earnest Dueñas Work Phone: [facility] Work Phone: 01-26-2022 16:34-0500 Body temperature 96.8 [degF] Dr. Earnest Dueñas Work Phone: [facility] Work Phone: 01-26-2022 16:34-0500 Body weight 80.[address] Earnest Dueñas Work Phone: [facility] Work Phone: 01-22-2022 14:23-0500 Body temperature 98.4 [degF] Dr. Earnest Dueñas Work Phone: [facility] Work Phone: 01-22-2022 14:23-0500 Diastolic blood pressure 78 mm[Hg] Dr. Earnest Dueñas Work Phone: [facility] Work Phone: 01-22-2022 14:23-0500 Heart rate 78 /min Dr. Earnest Dueñas Work Phone: [facility] Work Phone: 01-22-2022 14:23-0500 Respiratory rate 14 /min Dr. Earnest Dueñas Work Phone: [facility] Work Phone: 01-22-2022 14:23-0500 SaO2% (BldA) [Mass fraction] 98 % Dr. Earnest Dueñas Work Phone: [facility] Work Phone: 01-22-2022 14:23-0500 Systolic blood pressure 125 mm[Hg] Dr. Earnest Dueñas Work Phone: [facility] Work Phone: 01-22-2022 11:07-0500 Body mass index (BMI) [Ratio] 29.2 kg/m2 Dr. Earnest Dueñas Work Phone: [facility] Work Phone: 01-22-2022 11:07-0500 Body weight 77.[address] Earnest Dueñas Work Phone: [facility] Work Phone: Encounters Encounter Date Encounter Type Care Provider Facility Start: 03-31-2025 End: 03-31-2025 Follow-up encounter Farzana Llamas PA-C Work Phone: [facility] Start: 03-30-2025 ambulatory JOAN De La Rosa y:[facility] Start: 03-30-2025 End: 03-30-2025 Subsequent hospital visit by physician Screen Mammo [facility] Comment on above: Encounter for screen ing mammogram for breast cancer [Z12.31] Start: 03-14-2025 End: 03-14-2025 Chart abstracting Shira Macdonald MA [facility] Comment on above: Hospital F/U ([facility] - Discharge ) Start: 03-07-2025 End: 03-07-2025 Chart abstracting Shira Macdonald MA [facility] [place] Comment on above: ER F/U ([facility] /) Start: 03-05-2025 ambulatory Earnest Dueñas Facility :[facility] Start: 03-05-2025 End: 03-08-2025 Evaluation and management of inpatient Earnest Dueñas Facility:[facility] Start: 03-02-2025 End: 03-02-2025 Follow-up encounter Joan Talley APRN.CNP Work Phone: [facility] [place] Start: 02-28-2025 End: 02-28-2025 ambulatory JOAN TALLEY Facility:[facility] Start: 02-28-2025 End: 02-28-2025 Patient encounter procedure Joan Talley APRN.CNP Work Phone: [facility] [place] Comment on above: Well adult [...] encounter status Joan Talley APRN.CNP Work Phone: [facility] Start: 02-22-2025 End: 02-23-2025 Telephone encounter Earnest Dueñas MD Work Phone: [facility] [place] Comment on above: Patient Update Start: 02-21-2025 End: 02-21-2025 ambulatory EARNEST DUEÑAS Facility:[facility] Start: 02-16-2025 End: 02-16-2025 ambulatory EARNEST DUEÑAS Facility:[facility] Start: 02-08-2025 End: 02-08-2025 Follow-up encounter Farzana Llamas PA-C Work Phone: [facility] [place] Start: 01-23-2025 End: 02-03-2025 ambulatory Amita DiLauro Facility:[facility] Start: 12-26-2024 End: 01-20-2025 ambulatory Amita DiLauro Facility:[facility] Start: 12-02-2024 End: 12-23-2024 ambulatory Amita DiLauro Facility:[facility] Start: 11-11-2024 End: 11-11-2024 Chart abstracting Earnest Dueñas MD Work Phone: [facility] Comment on above: ER Discharge Summary (H&P) Start: 11-10-2024 ambulatory Kayli Slater Facility:[facility] Start: 11-10-2024 End: 11-12-2024 Evaluation and management of inpatient Kayli Slater Facility:[facility] Start: 11-01-2024 End: 11-01-2024 ambulatory EARNEST DUEÑAS Facility:[facility] Start: 11-01-2024 End: 11-01-2024 Patient encounter procedure Jess MARTIN Work Phone: [facility] Comment on above: Sinobronchitis (Prim kerri Dx) Start: 10-06-2024 End: 10-06-2024 Telephone encounter Farzana Llamas PA-C Work Phone: [facility] Comment on above: Appointment Start: 09-23-2024 End: 10-14-2024 ambulatory Amita DiLauro Facility:[facility] Start: 08-23-2024 End: 09-22-2024 ambulatory Amita DiLauro Facility:[facility] Start: 08-18-2024 End: 08-18-2024 Chart abstracting Earnest Dueñas MD Work Phone: [facility] Start: 08-17-2024 End: 08-17-2024 ambulatory Amita DiLauro Facility:[facility] Start: 08-15-2024 End: 08-22-2024 ambulatory Amita DiLauro Facility:[facility] Start: 08-08-2024 End: 08-08-2024 Chart abstracting Earnest Dueñas MD Work Phone: [facility] [place] Comment on above: ER Discharge Summary Start: 08-05-2024 End: 08-06-2024 Telephone encounter Vivi Ashraf APRN.SCHOOL BUSINESS ADMINISTRATOR Work Phone: [facility] Comment on above: Results Start: 08-05-2024 End: 08-05-2024 Emergency department patient visit Earnest Dueñas Facility:[facility] Start: 08-04-2024 End: 08-04-2024 Patient encounter procedure Nnamdi Macdonald APRN.SCHOOL BUSINESS ADMINISTRATOR Work Phone: [facility] Comment on above: Dysuria (Primary Dx) ; Recurrent UTI (urinary tract infection) Start: 08-04-2024 End: 08-04-2024 ambulatory EARNEST DUEÑAS Facility:[facility] Start: 07-19-2024 End: 07-19-2024 Chart abstracting Shira Macdonald MA [facility] Start: 07-14-2024 End: 07-14-2024 Chart abstracting Earnest Dueñas MD Work Phone: [facility] Comment on above: ER Discharge Summary Start: 07-13-2024 ambulatory Earnest Dueñas Facility :[facility] Start: 07-13-2024 End: 07-16-2024 Evaluation and management of inpatient Earnest Dueñas Facility:[facility] Start: 05-20-2024 Patient encounter procedure Earnest Dueñas MD Work Phone: [facility] Start: 04-15-2024 Telephone encounter Farzana summers PA-C Work Phone: [facility] Comment on above: Appointment Start: 03-29-2024 Documentation procedure Mammog jessica Coordinator [facility] Start: 03-29-2024 Letter encounter Mammography Coordinator [facility] Start: 03-29-2024 Telephone encounter Earnest Dueñas MD Work Phone: [facility] Comment on above: Results Start: 03-28-2024 End: 03-28-2024 Subsequent hospital visit by physician Screen Mammo [facility] Comment on above: Encounter for screen ing for malignant neoplasm of breast, unspecified screening modality [Z12.39] Start: 03-23-2024 Telephone encounter Farzana summers PA-C Work Phone: [facility] [place] Comment on above: Results Start: 03-21-2024 End: 03-21-2024 Patient encounter procedure Mima Royal RESIDENT PROGRAM SPECIALIST.SCHOOL BUSINESS ADMINISTRATOR Work Phone: [facility] Comment on above: Cellulitis of right upper arm (Primary Dx) Start: 03-17-2024 Telephone encounter Farzana summers PA-C Work Phone: [facility] Comment on above: Results Start: 03-16-2024 Patient encounter status Florentino thanh WASH[place]NC Work Phone: [facility] Start: 03-16-2024 End: 03-16-2024 Subsequent hospital visit by physician Kaci [facility] [place] Work Phone: Radiology Comment on above: Left hip pain [M25.5 52] Start: 03-16-2024 End: 03-16-2024 Patient encounter procedure Farzana Llamas PA-C Work Phone: [facility] Comment on above: Well adult exam ([facility] Dx); Alcohol dependence in remission (HCC); Moderate [...] pain Start: 02-29-2024 Telephone encounter Mima coburn RESIDENT PROGRAM SPECIALIST.SCHOOL BUSINESS ADMINISTRATOR Work Phone: [facility] Comment on above: Results Start: 02-29-2024 End: 02-29-2024 Subsequent hospital visit by physician Kaci [facility] [place] Work Phone: Radiology Comment on above: URI, acute [J06.9] Start: 02-29-2024 End: 02-29-2024 Patient encounter procedure Mima Royal RESIDENT PROGRAM SPECIALIST.SCHOOL BUSINESS ADMINISTRATOR Work Phone: [facility] Comment on above: URI, acute (Primary Dx); Acute cough; Conjunctivitis of both eyes, unspecified conjunctivitis type Start: 07-31-2023 Chart abstracting Earnest aparicio MD Work Phone: [facility] [place] Comment on above: ext document (Uro Pr ocedure) Start: 07-29-2023 ambulatory Earnest chanel MD Work Phone: [facility] [place] Start: 07-28-2023 Chart abstracting Earnest aparicio MD Work Phone: [facility] [place] Comment on above: Outside Vlob-Btd-UAM Ordered Start: 04-05-2023 Telephone encounter Earnest Dueñas MD Work Phone: [facility] Comment on above: Results Start: 04-04-2023 End: 04-04-2023 Patient encounter procedure Beverly Kovacs APRN.SCHOOL BUSINESS ADMINISTRATOR Work Phone: [facility] Comment on above: Sore throat (Primary Dx); Flu-like symptoms; Nausea and vomiting, unspecified vomiting type Start: 03-24-2023 Telephone encounter Fabian mahoney APRN.SCHOOL BUSINESS ADMINISTRATOR Work Phone: [facility] Comment on above: Results Start: 03-23-2023 End: 03-23-2023 Patient encounter procedure Jess MARTIN Work Phone: [facility] Comment on above: URI, acute (Primary Dx); Sore throat Start: 01-09-2023 Chart abstracting Earnest aparicio MD Work Phone: [facility] [place] Comment on above: Consult Start: 12-16-2022 Telephone encounter Farzana summers PA-C Work Phone: [facility] [place] Comment on above: Results Start: 12-15-2022 End: 12-15-2022 Patient encounter procedure Farzana Llamas PA-C Work Phone: [facility] [place] Comment on above: EDER (generalized anx iety [...] Emergency department patient visit ARJUN SLAUGHTER MD [facility] Start: 09-06-2022 End: 09-06-2022 Emergency department patient visit [facility] Start: 08-24-2022 End: 08-24-2022 Emergency department patient visit [facility] Start: 08-20-2022 ambulatory Earnest chanel MD Work Phone: [facility] Start: 07-25-2022 End: 07-25-2022 Office outpatient visit 25 minutes Farzana Llamas PA-C Work Phone: [facility] Comment on above: Moderate episode of recurrent major depressive disorder (HCC) (Primary Dx) Start: 06-25-2022 End: 06-25-2022 Patient encounter procedure Farzana Llamas PA-C Work Phone: [facility] Comment on above: Right lower quadrant abdominal pain (Primary Dx) Start: 06-22-2022 End: 06-22-2022 Patient encounter procedure Sona Obando PA-C Work Phone: [facility] Comment on above: APPOINTMENT CANCELLE D (Primary Dx) Start: 06-18-2022 End: 06-18-2022 Emergency department patient visit [facility] Start: 04-16-2022 End: 04-16-2022 Patient encounter procedure Farzana Llamas PA-C Work Phone: [facility] Comment on above: Chest pain, unspecif ied type (Primary Dx); HERNANDEZ (dyspnea on exertion); Palpitations; Current moderate episode of major depressive disorder, unspecified whether recurrent (HCC) Start: 03-06-2022 End: 03-06-2022 Emergency department patient visit Dr. Earnest Dueñas Work Phone: [facility] Start: 03-06-2022 End: 03-06-2022 Patient encounter procedure Earnest Ramirez APRN.SCHOOL BUSINESS ADMINISTRATOR Work Phone: [facility] Comment on above: Right flank pain (Pr imary Dx) Start: 01-28-2022 End: 01-28-[address] Earnest Dueñas Work Phone: [facility] Start: 01-26-2022 End: 01-26-2022 Emergency department patient visit Dr. Earnest Dueñas Work Phone: [facility] Start: 01-22-2022 End: 01-22-2022 Emergency department patient visit Dr. Earnest Dueñas Work Phone: [facility] Start: 04-13-2021 End: 04-13-2021 Subsequent hospital visit by physician Xr [facility] Work Phone: Radiology Comment on above: Neck pain [M54.2] Start: 12-27-2018 Patient encounter procedure Hernesto Phan Facility:[facility] Start: 12-27-2018 End: 12-30-2018 Evaluation and management of inpatient J [facility] Start: 08-29-2016 Patient encounter status Elder Ramirez RESIDENT PROGRAM SPECIALIST.SCHOOL BUSINESS ADMINISTRATOR Work Phone: [facility] Work Phone: Procedures Date Procedure Procedure Detail Performing Clinician Start: 08-04-2024 Urnls dip stick/tabl et rgnt auto w/o microscopy Nnamdi Macdonald RESIDENT PROGRAM SPECIALIST.SCHOOL BUSINESS ADMINISTRATOR Work Phone: Start: 03-16-2024 Radex hip unilateral with pelvis 2-3 views Farzana Llamas PA-C Work Phone: Start: 03-16-2024 Lipid 1996 panel - S alison or Plasma Farzana Llamas PA-C Work Phone: Start: 02-29-2024 COVID & INFLUENZA A/ B & RSV NAAT, ROUTINE Mima Royal RESIDENT PROGRAM SPECIALIST.SCHOOL BUSINESS ADMINISTRATOR Work Phone: Start: 02-29-2024 Radiologic exam ches t 2 views Mima Royal RESIDENT PROGRAM SPECIALIST.SCHOOL BUSINESS ADMINISTRATOR Work Phone: Start: 04-04-2023 STREP A MOLECULAR (POC) Beverly Kovacs RESIDENT PROGRAM SPECIALIST.SCHOOL BUSINESS ADMINISTRATOR Work Phone: Start: 03-23-2023 COVID WITH FLUA+B, ROUTINE Krislyn P Aberegg PA Work Phone: Start: 03-23-2023 STREP A MOLECULAR (POC) Krislyn P Aberegg PA Work Phone: Start: 12-15-2022 Lipid 1996 panel - S alison or Plasma Mima Royal RESIDENT PROGRAM SPECIALIST.SCHOOL BUSINESS ADMINISTRATOR Work Phone: Start: 08-24-2022 X-ray of cervical spine Start: 03-06-2022 Urnls dip stick/tabl et rgnt auto w/o microscopy [facility] Provider Start: 01-26-2022 Computed tomography of abdomen and pelvis with intravenous contrast Dr. Earnest Dueñas Work Phone: Start: 01-22-2022 US scan of gallbladder Dr. Earnest Dueñas Work Phone: Start: 07-09-2021 Mammography Earnest bond RESIDENT PROGRAM SPECIALIST.SCHOOL BUSINESS ADMINISTRATOR Work Phone: Start: 04-13-2021 Radex spine cervical 4 or 5 views Earnest Dueñas MD Work Phone: Start: 12-27-2018 Excision of Right Mendez nd Tendon, Open Approach NA EMILIE Start: 04-18-2015 Colonoscopy Earnest bond RESIDENT PROGRAM SPECIALIST.SCHOOL BUSINESS ADMINISTRATOR Work Phone: Plan of Treatment Date Care Activity Detail Author Start: 03-16-2029 Lipid panel Lipid Screening [facility] Start: 02-29-2028 Diabetes Screening Diabetes Screenin [facility] Start: 02-17-2028 Diabetes Screening Diabetes Screenin g [facility] Start: 02-02-2028 Screening for malign ant neoplasm of colon [facility] Start: 12-15-2027 Lipid panel Lipid Screening [facility] Start: 12-15-2027 LIPID SCREEN LIPID SCREEN [facility] Start: 03-16-2027 Diabetes Screening Diabetes Screenin g [facility] Start: 07-17-2026 LIPID SCREEN LIPID SCREEN [facility] Start: 03-30-2026 Screening for malign ant neoplasm of breast Mammogram Screening [facility] Start: 02-28-2026 Annual PCP Team Photo Retoucher isauro Disease Visit Annual PCP Team Chronic Disease Visit [facility] Start: 02-28-2026 Covid-19 Vaccine ( season) Covid-19 Vaccine () [facility] Comment on above: Postponed from 07/24 (Declined at this time) Start: 02-28-2026 Shingrix Vaccine (2 of 2) Shingrix Vaccine (2 of 2) [facility] Comment on above: Postponed from 05/11 (Declined at this time) Start: 12-15-2025 DIABETES SCREEN DIABETES SCREEN [facility] Start: 12-15-2025 Diabetes Screening Diabetes Screenin g [facility] Start: 09-05-2025 End: 09-05-2025 Patient encounter procedure 09/05/2025 10:20 AM EDT Office Visit [facility] [place] [address] [place] [address] Earnest Dueñas MD [address] [place] [phone] physical [facility] [place] Comment on above: physical Start: 07-24-2025 Influenza vaccination Influenz a Vaccine (Season Ended) [facility] Start: 06-01-2025 End: 08-31-2025 25-hydroxyvitamin D3 [Mass/volume] in Serum or Plasma VITAMIN D 25 HYDROXY Lab Routine Vitamin D deficiency Expected: 06/01/2025, Expires: 08/31/2025 [facility] Work Phone: Comment on above: Expected: 06/01/2025 , Expires: 08/31/2025 Start: 05-22-2025 Influenza vaccination Influenza Vacc ine (#1) [facility] Comment on above: Postponed from 07/24 (Declined at this time) Start: 04-27-2025 End: 04-27-2025 Patient encounter procedure 04/27/2025 11:30 AM EDT Office Visit Pulmonary Medicine [address] [place] [address] Nicolle Carolina APRN.SCHOOL BUSINESS ADMINISTRATOR [address] [place] [address] Encounter for screening for lung cancer [Z12.2] Pulmonary Medicine Comment on above: Encounter for screen ing for lung cancer [Z12.2] Start: 03-30-2025 End: 03-30-2025 Patient encounter procedure 03/30/2025 11:10 AM EDT Appointment Mammogram [address] [place] [address] Encounter for screening mammogram for breast cancer [Z12.31] Mammogram Comment on above: Encounter for screen ing mammogram for breast cancer [Z12.31] Start: 03-28-2025 Screening for malign ant neoplasm of breast Mammogram Screening [facility] Start: 03-16-2025 Annual PCP Team Photo Retoucher isauro Disease Visit Annual PCP Team Chronic Disease Visit [facility] Start: 03-16-2025 Covid-19 Vaccine ( season) Covid-19 Vaccine ( season) [facility] Comment on above: Postponed from 07/24 (Declined at this time) Start: 03-16-2025 Urine microalbumin profile DTaP,Tdap,Td Vaccine (1 - Tdap) [facility] Comment on above: Postponed from 09/30 (Declined at this time) Start: 03-16-2025 End: 03-16-2025 Patient encounter procedure 03/16/2025 10:30 AM EDT Office Visit Pulmonary Medicine [address] [place] [address] Nicolle Carolina APRN.SCHOOL BUSINESS ADMINISTRATOR [address] [place] [address] Encounter for screening for lung cancer [Z12.2] Pulmonary Medicine Comment on above: Encounter for screen ing for lung cancer [Z12.2] Start: 03-02-2025 End: 03-02-2025 Patient encounter procedure 03/02/2025 12:50 PM EDT Appointment Mammogram [address] [place] [address] Encounter for screening mammogram for breast cancer [Z12.31] Mammogram Comment on above: Encounter for screen ing mammogram for breast cancer [Z12.31] Start: 02-28-2025 End: 05-30-2025 25-hydroxyvitamin D3 [Mass/volume] in Serum or Plasma [facility] Comment on above: Expected: 02/28/2025 , Expires: 05/30/2025 Start: 02-28-2025 End: 05-30-2025 Cobalamin (Vitamin B12) [Mass/volume] in Serum or Plasma [facility] Comment on above: Expected: 02/28/2025 , Expires: 05/30/2025 Start: 02-28-2025 End: 05-30-2025 Hemoglobin A1c in Blood [facility] Comment on above: Expected: 02/28/2025 , Expires: 05/30/2025 Start: 02-28-2025 End: 05-30-2025 Magnesium [Mass/volume] in Serum or Plasma [facility] Comment on above: Expected: 02/28/2025 , Expires: 05/30/2025 Start: 02-28-2025 End: 05-30-2025 Thyrotropin [Units/volume] in Serum or Plasma [facility] Work Phone: Comment on above: Expected: 02/28/2025 , Expires: 05/30/2025 Start: 02-28-2025 End: 02-28-2025 Patient encounter procedure 02/28/2025 11:20 AM EDT Office Visit [facility] [place] [address] [place] [id number] Joan Talley APRN.[facility] [address] [place], [place] [phone] [facility] [place] Comment on above: Wellness Start: 07-24-2024 Covid-19 Vaccine ( season) Covid-19 Vaccine () [facility] Start: 07-24-2024 Covid-19 Vaccine () Covid-19 Vaccine () [facility] Start: 07-24-2024 Influenza vaccination C [facility] Start: 07-17-2024 DIABETES SCREEN [facility] Start: 05-17-2024 End: 08-16-2024 25-hydroxyvitamin D3 [Mass/volume] in Serum or Plasma VITAMIN D 25 HYDROXY Lab Routine Vitamin D deficiency Expected: 05/17/2024, Expires: 08/16/2024 [facility] Work Phone: Comment on above: Expected: 05/17/2024 , Expires: 08/16/2024 Start: 05-15-2024 Hzv zoster vacc recombinant adjuvanted im njx ZOSTER VACCINE, RECOMBINANT (SHINGRIX) Immunization/Injection Routine Encounter for immunization Expected: 05/15/2024 [facility] Comment on above: Expected: 05/15/2024 Start: 05-11-2024 Shingrix Vaccine (2 of 2) Shingrix Vaccine (2 of 2) [facility] Start: 04-13-2024 End: 04-13-2024 Patient encounter procedure 04/13/2024 10:20 AM EDT Office Visit [facility] [place] [address] [place] [phone] Farzana Llamas PA-C [address] [place] [phone] 4 wk follow up [facility] [place] Comment on above: 4 wk follow up Start: 03-28-2024 End: 03-28-2024 Patient encounter procedure 03/28/2024 12:50 PM EDT Appointment Mammogram [address] [place] [phone] Encounter for screening for malignant neoplasm of breast, unspecified screening ... Mammogram Comment on above: Encounter for screen ing for malignant neoplasm of breast, unspecified screening ... Start: 03-21-2024 End: 03-21-2024 Patient encounter procedure 03/21/2024 11:10 AM EDT Appointment Mammogram [address] [place] [address] Encounter for screening for malignant neoplasm of breast, unspecified screening modality [Z12.39] Mammogram Comment on above: Encounter for screen ing for malignant neoplasm of breast, unspecified screening modality [Z12.39] Start: 03-16-2024 End: 06-15-2024 25-hydroxyvitamin D3 [Mass/volume] in Serum or Plasma [facility] Comment on above: Expected: 03/16/2024 , Expires: 06/15/2024 Start: 03-16-2024 End: 06-15-2024 Cobalamin (Vitamin B12) [Mass/volume] in Serum or Plasma [facility] Comment on above: Expected: 03/16/2024 , Expires: 06/15/2024 Start: 03-16-2024 End: 06-15-2024 Comprehensive metabolic 2000 panel - Serum or Plasma [facility] Comment on above: Expected: 03/16/2024 , Expires: 06/15/2024 Start: 03-16-2024 End: 06-15-2024 Hemoglobin A1c in Blood [facility] Comment on above: Expected: 03/16/2024 , Expires: 06/15/2024 Start: 03-16-2024 End: 06-15-2024 LIPID PANEL, NONFASTING [facility] Comment on above: Expected: 03/16/2024 , Expires: 06/15/2024 Start: 03-16-2024 End: 06-15-2024 Magnesium [Mass/volume] in Serum or Plasma [facility] Comment on above: Expected: 03/16/2024 , Expires: 06/15/2024 Start: 03-16-2024 End: 06-15-2024 Thyrotropin [Units/volume] in Serum or Plasma [facility] Work Phone: Comment on above: Expected: 03/16/2024 , Expires: 06/15/2024 Start: 03-16-2024 End: 06-15-2024 Thyroxine (T4) free [Mass/volume] in Serum or Plasma [facility] Comment on above: Expected: 03/16/2024 , Expires: 06/15/2024 Start: 01-03-2024 PAP TESTING PAP TESTING [facility] Start: 01-03-2024 Screening for malign ant neoplasm of cervix Pap Testing [facility] Start: 12-15-2023 ANNUAL PCP TEAM DOOR INSTALLER ISAURO DISEASE VISIT ANNUAL PCP TEAM CHRONIC DISEASE VISIT [facility] Start: 07-25-2023 ANNUAL PCP TEAM DOOR INSTALLER ISAURO DISEASE VISIT ANNUAL PCP TEAM CHRONIC DISEASE VISIT [facility] Start: 07-24-2023 Covid-19 Vaccine () Covid-19 Vaccine () [facility] Start: 07-24-2023 Influenza vaccination [facility] Start: 06-25-2023 ANNUAL PCP TEAM DOOR INSTALLER ISAURO DISEASE VISIT ANNUAL PCP TEAM CHRONIC DISEASE VISIT [facility] Start: 04-16-2023 ANNUAL PCP TEAM DOOR INSTALLER ISAURO DISEASE VISIT ANNUAL PCP TEAM CHRONIC DISEASE VISIT [facility] Start: 01-24-2023 ANNUAL PCP TEAM DOOR INSTALLER ISAURO DISEASE VISIT ANNUAL PCP TEAM CHRONIC DISEASE VISIT [facility] Start: 01-24-2023 Urine microalbumin profile DTAP,TDAP,TD (1 - Tdap) [facility] Comment on above: Postponed from 09/30 (Declined at this time) Start: 12-15-2022 End: 02-14-2023 Comprehensive metabolic 2000 panel - Serum or Plasma [facility] Work Phone: Comment on above: Expected: 12/15/2022 , Expires: 02/14/2023 Start: 12-15-2022 End: 02-14-2023 Hemoglobin A1c in Blood [facility] Work Phone: Comment on above: Expected: 12/15/2022 , Expires: 02/14/2023 Start: 12-15-2022 End: 02-14-2023 LIPID PANEL, NONFASTING [facility] Work Phone: Comment on above: Expected: 12/15/2022 , Expires: 02/14/2023 Start: 12-15-2022 End: 02-14-2023 Thyrotropin [Units/volume] in Serum or Plasma [facility] Work Phone: Comment on above: Expected: 12/15/2022 , Expires: 02/14/2023 Start: 08-24-2022 X-ray of cervical spine Cerv Spine 2 or 3 Views [facility] Work Phone: Start: 08-24-2022 XR Cervical spine 2 or 3 Views [facility] Work Phone: Start: 07-24-2022 Influenza vaccination C [facility] Start: 07-09-2022 Mammography MAMMOGRAM [facility] Start: 07-09-2022 Screening for malign ant neoplasm of breast Mammogram Screening [facility] Start: 06-01-2022 COVID-19 VACCINE (4 - Booster for Moderna series) COVID-19 VACCINE (4 - Booster for Moderna series) [facility] Start: 03-27-2022 COVID-19 VACCINE (4 - Booster for Moderna series) COVID-19 VACCINE (4 - Booster for Moderna series) [facility] Start: 03-27-2022 COVID-19 VACCINE (4 - Moderna series) COVID-19 VACCINE (4 - Moderna series) [facility] Start: 04-18-2020 Colonoscopy COLONOSCOPY [facility] Start: 04-18-2020 COLORECTAL CANCER SCREENING COLORECTAL CANCER SCREENING [facility] Start: 04-18-2020 Screening for malign ant neoplasm of colon [facility] Start: 04-18-2016 Screening for malign ant neoplasm of colon Colonoscopy [facility] Start: 09-30-2015 Urine microalbumin profile [facility] Start: 2015 Influenza vaccination LUNG CANCER SC REENING [facility] Start: 2015 Screening for malign ant neoplasm of lung Lung Cancer Screening [facility] Start: 2015 SHINGRIX VACCINE (1 of 2) SHINGRIX VACCINE (1 of 2) [facility] Start: 02-25-2012 HPV TESTING HPV TESTING [facility] Start: 02-25-2012 Screening for malign ant neoplasm of cervix HPV Testing [facility] Start: 2010 COLOGUARD (FIT-DNA) COLOGUARD (FIT-D NA) [facility] Start: [address] COLONOGRAPHY [facility] Start: 2010 FECAL OCCULT BLOOD FECAL OCCULT BLOO D [facility] Start: 2010 Screening for malign ant neoplasm of colon [facility] Start: 2010 SIGMOIDOSCOPY SIGMOIDOSCOPY [facility] Start: 1984 ONE PNEUMOVAX PRIOR TO AGE 65 ONE PNEUMOVAX PRIOR TO AGE 65 [facility] Start: 1971 PNEUMOCOCCAL (1 - PCV) PNEUMOCOCCAL (1 - PCV) [facility] Start: 1971 Pneumococcal vaccination Pneum ococcal Vaccine (1 of 2 - PCV) [facility] Bacteria identified in Urine by Culture URINE CULTURE Microbiology Routine Dysuria Ordered: 08/04/2024 [facility] Work Phone: Comment on above: Ordered: 08/04/2024 COLOGUARD COLOGUARD Lab Ro utine Screening for colon cancer Ordered: 03/16/2024 [facility] Comment on above: Ordered: 03/16/2024 End: 03-30-2026 DBT Breast - bilateral screening DAYNA SCREENING W SRIDEVI Radiology Routine Encounter for screening mammogram for breast cancer 1 Occurrences starting 02/28/2025 until 03/30/2026 [facility] Comment on above: 1 Occurrences starti ng 02/28/2025 until 03/30/2026 DBT Breast - bilater al screening DAYNA SCREENING W SRIDEVI Radiology Routine Encounter for screening mammogram for breast cancer 03/30/2025 11:07 AM EDT [facility] Work Phone: End: 04-16-2023 EXERCISE STRESS ECG (WITHOUT IMAGING) EXERCISE STRESS ECG (WITHOUT IMAGING) Cardiology Routine Chest pain, unspecified type HERNANDEZ (dyspnea on exertion) Current moderate episode of major depressive disorder, unspecified whether recurrent (HCC) Palpitations 1 Occurrences starting 04/16/2022 until 04/16/2023 [facility] Work Phone: Comment on above: 1 Occurrences starti ng 04/16/2022 until 04/16/2023 Influenza virus A an d B RNA and SARS-CoV-2 (COVID-19) N gene panel - Respiratory specimen by KALI with probe detection COVID WITH FLUA+B, ROUTINE Microbiology Routine Flu-like symptoms Ordered: 04/04/2023 [facility] Work Phone: Comment on above: Ordered: 04/04/2023 End: 08-27-2024 DAYNA SCREENING DAYNA SCREENING Radiology Routine Encounter for screening mammogram for breast cancer 1 Occurrences starting 07/29/2023 until 08/27/2024 [facility] Work Phone: Comment on above: 1 Occurrences starti ng 07/29/2023 until 08/27/2024 End: 04-15-2025 MG Breast Screening DAYNA SCREENING Radiology Routine Encounter for screening for malignant neoplasm of breast, unspecified screening modality 1 Occurrences starting 03/16/2024 until 04/15/2025 [facility] Comment on above: 1 Occurrences starti ng 03/16/2024 until 04/15/2025 MG Breast Screening DAYNA SCREENIN G Radiology Routine Encounter for screening for malignant neoplasm of breast, unspecified screening modality 03/28/2024 12:56 PM EDT [facility] Work Phone: Patient Education [facility] Work Phone: Patient referral [facility] Work Phone: End: 09-19-2023 Screening mammography bi 2-view breast inc cad DAYNA SCREENING Radiology Routine Encounter for screening mammogram for breast cancer 1 Occurrences starting 08/20/2022 until 09/19/2023 [facility] Work Phone: Comment on above: 1 Occurrences starti ng 08/20/2022 until 09/19/2023 End: 04-15-2025 XR Pelvis and Hip - left AP and Lateral frog XR HIP GENERAL 3V PELV/AP/LAT LEFT Radiology Routine Left hip pain 1 Occurrences starting 03/16/2024 until 04/15/2025 [facility] Comment on above: 1 Occurrences starti ng 03/16/2024 until 04/15/2025 XR Pelvis and Hip - left AP and Lateral frog XR HIP GENERAL 3V PELV/AP/LAT LEFT Radiology Routine Left hip pain 03/16/2024 1:58 PM EDT [facility] Immunizations Immunization Date Immunization Notes Care Provider Tammy holt 03-16-2024 pneumococcal conjuga te (PCV20) vaccine, 20 valent (PREVNAR 20) Farzana Llamas PA-C Work Phone: [facility] 03-16-2024 zoster vaccine recombinant Farzana Llamas PA-C Work Phone: [facility] 03-16-2024 pneumococcal Conjugate, unspecified formulation Farzana Llamas PA-C Work Phone: [facility] 05-21-2021 Covid (Moderna) Dr. Earnest Dueñas Work Phone: [facility] 04-23-2021 Covid (Moderna) Dr. Earnest Dueñas Work Phone: [facility] 08-28-2019 influenza, seasonal, injectable Dr. Earnest Dueñas Work Phone: [facility] Work Phone: 08-28-2019 influenza virus vaccine, unspecified formulation Mima Royal RESIDENT PROGRAM SPECIALIST.SCHOOL BUSINESS ADMINISTRATOR Work Phone: [facility] 09-14-2017 hepatitis A and hepatitis B vaccine Earnest Ramirez RESIDENT PROGRAM SPECIALIST.SCHOOL BUSINESS ADMINISTRATOR Work Phone: [facility] Work Phone: 04-06-2017 hepatitis A and hepatitis B vaccine Earnest Ramirez RESIDENT PROGRAM SPECIALIST.SCHOOL BUSINESS ADMINISTRATOR Work Phone: [facility] Work Phone: 03-05-2017 hepatitis A and hepatitis B vaccine Earnest Ramirez RESIDENT PROGRAM SPECIALIST.SCHOOL BUSINESS ADMINISTRATOR Work Phone: [facility] Work Phone: 09-29-2015 tetanus and diphther ia toxoids, adsorbed, preservative free, for adult use (2 Lf of tetanus toxoid and 2 Lf of diphtheria toxoid) Dr. Earnest Dueñas Work Phone: [facility] 09-29-2015 tetanus and diphther ia toxoids, adsorbed, preservative free, for adult use (5 Lf of tetanus toxoid and 2 Lf of diphtheria toxoid) Earnest Ramirez RESIDENT PROGRAM SPECIALIST.SCHOOL BUSINESS ADMINISTRATOR Work Phone: [facility] Payers Date Payer Category Payer Self-pay [id number] 2024 Unknown [id number] 2024 Medicare (Managed Care) [facility] DUAL COMPLETE PPO SNP [id number] 2024 Unknown [id number] 2018 Medicaid [id number] 2016 Medicare [id number] 2016 Medicare [id number] 1965 Unknown [id number]. 598 1965 Unknown [id number]. 356 1965 Unknown [id number] [id number]. 627 1959 Unknown [id number] Unknown [facility] [employer] [facility] [employer] PA[employer]OR [id number] Effective for all dates [address] [place] [address] Other [id number] Unknown [id number] [id number]. 462 Unknown [id number] [id number]. 462 Unknown [id number] 2.16.840.1.560030.3.579.2. 462 Unknown [id number] 2.16.840.1.708671.3.579.2. 462 Unknown [id number] 2.16.840.1.105049.3.579.2. 462 Unknown [id number] [id number]. 462 Unknown [id number] 2.16.840.1.582877.3.579.2. 462 Unknown [id number] 2.16.840.1.547871.3.579.2. 462 Unknown [id number]. 462 Unknown [id number]. 462 Unknown [id number]. 462 Unknown [id number] [id number]. 462 Unknown [id number] 2.16840.1.791257.3.579.2. 462 Unknown [id number] 2.16840.1.652834.3.579.2. 462 Unknown [id number] 2.16840.1.049839.3.579.2. 462 Unknown [id number] 2.16840.1.180067.3.579.2. 462 Unknown [id number] 2.16840.1.518916.3.579.2. 462 Unknown [id number] 2.16.840.1.469033.3.579.2. 462 Unknown [id number] [id number]. 462 Unknown [id number] 2.16.840.1.165629.3.579.2. 462 Unknown [id number] [id number]. 462 Unknown [id number] [id number]. 462 Unknown [id number] [id number]. 462 Social History Date Type Detail Facility Start: 03-06-2022 End: 09-06-2022 Tobacco smoking status NHIS Unknown if ever smoked [facility] Work Phone: Start: 08-24-2020 Sober [facility] Work Phone: Start: 05-26-2015 None [facility] Work Phone: Start: 08-25-2020 Cigarettes [facility] Work Phone: Start: 1965 Sex Assigned At Female W [facility] Work Phone: Start: 07-25-2022 End: 08-04-2024 Tobacco smoking status NHIS Smokes tobacco daily [facility] Work Phone: History of tobacco use Cigarette Smoker C [facility] Start: 03-06-2022 End: 11-01-2024 Alcohol intake Current non-drinker of alcohol (finding) [facility] Start: 04-13-2015 End: 07-25-2022 Tobacco Comment half a pack a day [facility] Start: 1965 Sex Assigned At Not on file [facility] Start: 03-14-2021 End: 07-21-2022 Exposure to SARS-CoV-2 (event) Not sure [facility] Start: 07-25-2022 End: 03-16-2024 Cigarettes smoked current (pack per day) - Reported 0.5 [facility] Start: 07-25-2022 End: 08-04-2024 Tobacco use and exposure Smokeless tobacco non-user [facility] Tobacco smoking status Occasiona l tobacco smoker (finding) [facility] Sex Assigned At Sex [facility] Start: 04-04-2023 End: 03-16-2024 Tobacco use panel [facility] Adult Depression Screening Assessment 6 [facility] Functional Status Date Assessment Result Facility 10-01-2022 Functional Status Room check performed [facility] 05-22-2015 Are you deaf, or do you have serious difficulty hearing No 05/22/2015 8:44 AM EDT Chasity Corrales LPN No [facility] 05-22-2015 Are you blind, or do you have serious difficulty seeing, even when wearing glasses No 05/22/2015 8:44 AM BLAKET Chasity Corrales LPN No [facility] 05-22-2015 Do you have serious difficulty walking or climbing stairs No 05/22/2015 8:44 AM EDT Chasity Corrales LPN No [facility] 05-22-2015 Do you have difficul ty dressing or bathing No 05/22/2015 8:44 AM BLAKET Chasity Corrales LPN No [facility] 05-22-2015 Because of a physica l, mental, or emotional condition, do you have difficulty doing errands alone such as visiting a physician's office or shopping No 05/22/2015 8:44 AM EDT Chasity Corrales LPN No [facility] Mental Status Date Assessment Result Facility 10-01-2022 Mental Status Orientation Oriented x 4 [facility] 09-06-2022 Cognitive function Level Of Cons ciousness Awake;Alert;Appropriate;Fol lows Commands [facility] Work Phone: 03-06-2022 Cognitive function Level Of Cons ciousness Awake;Alert;Appropriate;Fol lows Commands [facility] Work Phone: 05-22-2015 Because of a physica l, mental, or emotional condition, do you have serious difficulty concentrating, remembering, or making decisions Yes 05/22/2015 8:44 AM BLAKET Chasity Corrales LPN Yes [facility] Clinical Notes 04-13-2021 to 03-31-2025 Telephone Encounter - Obey Agee LPN - 03/31/2025 12:12 PM EDTTelephone Encounter - Obey Agee LPN - 03/31/2025 12:12 PM Mirela Pillai Mammo Tech - 03/30/2025 11:10 AM EDT Note Date & Type Note Facility 03-31-2025 Telephone encounter Note Pt notified of same. Obey Agee LPN [facility] 03-31-2025 Miscellaneous Notes Pt notified of taylor. Obey Agee LPN ----- Message from Farzana Llamas PA-C sent at 03/31/2025 12:02 PM EDT ----- Normal mammogram. Repeat in 1 year. documented in this encounter [facility] 03-31-2025 Telephone encounter Note ----- Message from Farzana Llamas PA-C sent at 03/31/2025 12:02 PM EDT ----- Normal mammogram. Repeat in 1 year. [facility] 03-30-2025 History of Presen t illness [...] PATIENT PRESENTS WITH AN IMPLANTABLE OR ATTACHED SALES ORDER CLERK: No RADIOLOGY DEPARTMENT: Mammography PERIPHERAL IV DATA: Not applicable SIGNED BY: MirelaJayjay Oseguera March 30, 2025 11:45 AM documented in this encounter [facility] 03-30-2025 Note HNO ID: [id number] Author: MIRELA WESTON Mammo Tech Service: ? Author Type: District Director Type: Progress Notes Filed: 03/30/2025 11:45 Note [...] PATIENT PRESENTS WITH AN IMPLANTABLE OR ATTACHED SALES ORDER CLERK: No RADIOLOGY DEPARTMENT: Mammography PERIPHERAL IV DATA: Not applicable SIGNED BY: Jayjay Almendarez March 30, 2025 11:45 AM [facility] 03-14-2025 Note HNO ID: [id number] Author: SHIRA MACDONALD MA Service: ? Author Type: Cattle Trader Type: Progress Notes Filed: 03/14/2025 16:29 Note Text: Scan on 03/08/2025 9:19 AM by Rah Gabriel PA-C: Discharge Summary Shira Macdonald MA [facility] 03-14-2025 History of Presen t illness Narrative Scan on 03/08/2025 9:19 AM by Rah Gabriel PA-C: Discharge Summary Shira Macdonald MA documented in this encounter [facility] 03-08-2025 Note [facility] Medical Records Department [address] [place] [address] Discharge Summary 03/08/25 0755 MR#: [id number] Acct: [id number] Name: KAMI WATTS Rep #: [id number] : 1965 59 From: Jeffry Rebolledo MD PCP: Dr. Earnest Dueñas MD Status:ADM IN Location: [facility] OP682-6 Providers Date of Admission: 03/05/25 Date of [...] 10/80 mg Simv (more content not included)... [facility] 03-07-2025 Note HNO ID: [id number] Author: SHIRA MACDONALD MA Service: ? Author Type: Cattle Trader Type: Progress Notes Filed: 03/07/2025 15:03 Note Text: Scan on 03/05/2025 11:19 PM by ProviderRah PA-C: Consultation - Emergency Medicine Scan on 03/06/2025 6:48 AM by Rah Gabriel PA-C: Consultation - Emergency Medicine Detox alchol. Shira Macdonald MA [facility] 03-07-2025 History of Presen t illness Narrative Scan on 03/05/2025 11:19 PM by Rah Gabriel PA-C: Consultation - Emergency Medicine Scan on 03/06/2025 6:48 AM by Rah Gabriel PA-C: Consultation - Emergency Medicine Detox alchol. Shira Macdonald MA documented in this encounter [facility] 03-02-2025 Telephone encounter Note Pt notified and verbalized understanding Mavis Nicholas MA [facility] 03-02-2025 Miscellaneous Notes Pt notified and verbalized understanding Mavis Nicholas MA Please let patient know her vitamin d is still low. I have sent in a prescription for supplementation. Repeat vitamin d level in 3 months. documented in this encounter [facility] 03-02-2025 Telephone encounter Note Please let patient know her vitamin d is still low. I have sent in a prescription for supplementation. Repeat vitamin d level in 3 months. [facility] 02-28-2025 Note HNO ID: [id number] Author: JOAN TALLEY APRN.SCHOOL BUSINESS ADMINISTRATOR Service: ? Author Type: Nurse Practitioner Type: [...] Disease Mother Hypertension Mother Hearing Loss Father ND/ colon cancer Stroke Father Diabetes Father Hypertension Father Aneurysm Father Coronary Artery Disease Maternal Grandmother Hypertension Maternal Grandmother Ischemic Heart Disease Maternal Grandfather Hypertension Paternal Grandmother Coronary Artery Disease Paternal Grandmother Coronary Artery Disease Paternal Grandfather Cancer Sister CERVICAL/colon cancer Cancer Paternal Aunt DOESN'T KNOW TYPE Heart Brother ND Hypertension Daughter Colon Cancer Brother Patient Allergies [...] Days) BMI 34. (more content not included)... [facility] 02-28-2025 History of Presen t illness Narrative [...] Disease Mother Hypertension Mother Hearing Loss Father ND/ colon cancer Stroke Father Diabetes Father Hypertension Father Aneurysm Father Coronary Artery Disease Maternal Grandmother Hypertension Maternal Grandmother Ischemic Heart Disease Maternal Grandfather Hypertension Paternal Grandmother Coronary Artery Disease Paternal Grandmother Coronary Artery Disease Paternal Grandfather Cancer Sister CERVICAL/colon cancer Cancer Paternal Aunt DOESN'T KNOW TYPE Heart Brother ND Hypertension Daughter Colon Cancer Brother Patient Allergies [...] CONSULT [facility] SCREENING [facility] Joan Talley APRN.SCHOOL BUSINESS ADMINISTRATOR documented in this encounter [facility] 02-22-2025 Telephone encounter Note Patient has Wellness appt with Joan Talley CNP on 02/28/25. 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 Pt states she will have this company fax lab results to Joan's office for review at her 02/28 appt. Please call patient for any questions or concerns, . Fior Wheatley RN [facility] 02-22-2025 Miscellaneous Notes Patient has Wellness appt with Joan Talley CNP on 02/28/25. 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 Pt states she will have this company fax lab results to Joan's office for review at her 02/28 appt. Please call patient for any questions or concerns, . Fior Wheatley RN documented in this encounter [facility] 02-08-2025 Telephone encounter Note Patient notified of results and provider's instructions. Patient verbalizes understanding. Obey Agee LPN [facility] 02-08-2025 Miscellaneous Notes Patient notified of results and provider's instructions. Patient verbalizes understanding. Obey Agee LPN ----- Message from Farzana Llamas PA-C sent at 02/08/2025 7:47 AM EDT ----- Your Cologuard test came back negative (low risk of colorectal cancer). I recommend repeating colorectal cancer screening in 3 years. documented in this encounter [facility] 02-08-2025 Telephone encounter Note ----- Message from Farzana Llamas PA-C sent at 02/08/2025 7:47 AM EDT ----- Your Cologuard test came back negative (low risk of colorectal cancer). I recommend repeating colorectal cancer screening in 3 years. [facility] 11-12-2024 Note [facility] Medical Records Department [address] [place] [address] Discharge Summary 11/12/24 1000 MR#: [id number] Acct: [id number] Name: KAMI WATTS Rep #: [id number] : 1965 59 From: Krystyna Trujillo DO PCP: Dr. Earnest Dueñas MD Status:ADM IN [facility] Date of Admission: 11/10/24 Date of [...] who presented to the emergency department at [facility] on 11/10/2020 for requesting detox from alcohol. [...] all that a (more content not included)... [facility] 11-11-2024 Note HNO ID: [id number] Author: OBEY AGEE LPN Service: ? Author Type: LICENSED NURSE Type: Progress Notes Filed: 11/11/2024 06:50 Note Text: Scan on 11/10/2024 10:24 PM by Provider, MATT Monreal: Consultation - Emergency Medicine Scan on 11/10/2024 5:55 PM by Provider, Rah, PAPaul [facility] 11-11-2024 History of Presen t illness Narrative Scan on 11/10/2024 10:24 PM by ProviderRah PA-C: Consultation - Emergency Medicine Scan on 11/10/2024 5:55 PM by ProviderRah PA-C documented in this encounter [facility] 11-01-2024 Note HNO ID: [id number] Author: JESS ELLIS PA Service: ? Author Type: Physician Shoe Caser Type: Progress Notes Filed: 11/01/2024 13:57 Note Text: This note was created using Savelli. Wu Watts is a 59 year old [...] recently sick. Patient has not taken anything [id number] for symptoms. PAST MEDICAL HISTORY Diagnosis Date [...] Disease Mother Hypertension Mother Hearing Loss Father ND/ colon cancer Stroke Father Diabetes Father Hypertension Father Aneurysm Father Coronary Artery Disease Maternal Grandmother Hypertension Maternal Grandmother Ischemic Heart Disease Maternal Grandfather Hypertension Paternal Grandmother Coronary Artery Disease Paternal Grandmother Coronary Artery Disease Paternal Grandfather Cancer Sister CERVICAL/colon cancer Cancer Paternal Aunt DOESN'T KNOW TYPE Heart Brother ND Hypertension Daughter Colon Cancer Brother Social History Tobacco Use Smoking status: Every Day Current packs/day: 1.00 Average packs/day: 1 pack/day for 40.0 years (40.0 ttl pk-yrs) Ty (more content not included)... [facility] 11-01-2024 History of Presen t illness Narrative This note was created using Savelli. Wu Watts is a 59 year old [...] recently sick. Patient has not taken anything [id number] for symptoms. PAST MEDICAL HISTORY Diagnosis Date [...] Disease Mother Hypertension Mother Hearing Loss Father ND/ colon cancer Stroke Father Diabetes Father Hypertension Father Aneurysm Father Coronary Artery Disease Maternal Grandmother Hypertension Maternal Grandmother Ischemic Heart Disease Maternal Grandfather Hypertension Paternal Grandmother Coronary Artery Disease Paternal Grandmother Coronary Artery Disease Paternal Grandfather Cancer Sister CERVICAL/colon cancer Cancer Paternal Aunt DOESN'T KNOW TYPE Heart Brother ND Hypertension Daughter Colon Cancer Brother Social History [...] evaluation. MARIO Mcgee documented in this encounter [facility] 10-06-2024 Telephone encounter Note Left message for pt to call back to schedule f/u appointment with Farzana. Farzana had advised pt to f/u for depression/med in 4 weeks at last ov 03/16/24. Obey Agee LPN [facility] 10-06-2024 Miscellaneous Notes Left message for pt to call back to schedule f/u appointment with Farzana. Farzana had advised pt to f/u for depression/med in 4 weeks at last ov 03/16/24. Obey Agee LPN documented in this encounter [facility] 08-18-2024 Note HNO ID: [id number] Author: KYUNG ROMO MA Service: ? Author Type: Cattle Trader Type: Progress Notes Filed: 08/18/2024 11:55 Note Text: Scan on 08/17/2024 5:12 PM by Rah Gabriel PA-C: Vit D Scan on 08/17/2024 2:13 PM by Rah Gabriel PA-C: TSH [facility] 08-18-2024 History of Presen t illness Narrative Scan on 08/17/2024 5:12 PM by Rah Gabriel PA-C: Vit D Scan on 08/17/2024 2:13 PM by Rah Gabriel PARobyC: TSH documented in this encounter [facility] 08-08-2024 Note HNO ID: [id number] Author: OBEY AGEE LPN Service: ? Author Type: LICENSED NURSE Type: Progress Notes Filed: 08/08/2024 07:05 Note Text: Scan on 08/05/2024 6:03 PM by Rah Gabriel PA-C: Consultation - Emergency Medicine [facility] 08-08-2024 History of Presen t illness Narrative Scan on 08/05/2024 6:03 PM by ProviderRah PA-C: Consultation - Emergency Medicine documented in this encounter [facility] 08-06-2024 Telephone encounter Note Patient given results and verbalized understanding of instructions given. Patient went to ED she has a kidney stone. Dalia Farris MA [facility] 08-06-2024 Miscellaneous Notes Patient given results and verbalized understanding of instructions given. Patient went to ED she has a kidney stone. Dalia aFrris MA Please inform patient that urine culture did not show any growth of bacteria requiring treatment. If symptoms improving complete antibiotic Advise due to blood in the urine that she follow up with PCP for recheck of urine in 1-2 weeks. Vivi Ashraf APRN.CNP documented in this encounter [facility] 08-05-2024 Telephone encounter Note Please inform patient that urine culture did not show any growth of bacteria requiring treatment. If symptoms improving complete antibiotic Advise due to blood in the urine that she follow up with PCP for recheck of urine in 1-2 weeks. Vivi Ashraf APRN.CNP [facility] Work Phone: 08-04-2024 Note HNO ID: [id number] Author: NNAMDI MACDONALD APRN.CNP Service: ? Author [...] in AA 08/29/2016: Alcohol dependence in remission ([facility]) Comment: In treatment 04/06/11 06/28/2010: Anxiety 04/16/2021: Bilateral hip joint arthritis 04/16/2021: Cervical arthritis 08/24/2007: Decreased libido No date: Diabetes mellitus without mention of complication Comment: Diabetes mellitus No date: Diarrhea No date: Drug addiction ([facility]) Comment: In treatment 04/06/11 - [...] Disease Mother Hypertension Mother Hearing Loss Father ND/ colon cancer Stroke Father Diabetes Father Hypertension Father Aneurysm Father Coronary Artery Disease Maternal Grandmother Hypertension Maternal Grandmother Ischemic Heart Disease Maternal Grandfather Hypertension Paternal Grandmother Coronary Artery Disease Paternal Grandmother Coronary Artery Disease Paternal Grandfa (more content not included)... [facility] 08-04-2024 History of Presen t illness Narrative [...] in AA 08/29/2016: Alcohol dependence in remission ([facility]) Comment: In treatment 04/06/11 06/28/2010: Anxiety 04/16/2021: Bilateral hip joint arthritis 04/16/2021: Cervical arthritis 08/24/2007: Decreased libido No date: Diabetes mellitus without mention of complication Comment: Diabetes mellitus No date: Diarrhea No date: Drug addiction ([facility]) Comment: In treatment 04/06/11 - [...] Disease Mother Hypertension Mother Hearing Loss Father ND/ colon cancer Stroke Father Diabetes Father Hypertension Father Aneurysm Father Coronary Artery Disease Maternal Grandmother Hypertension Maternal Grandmother Ischemic Heart Disease Maternal Grandfather Hypertension Paternal Grandmother Coronary Artery Disease Paternal Grandmother Coronary Artery Disease Paternal Grandfather Cancer Sister CERVICAL/colon cancer Cancer Paternal Aunt DOESN'T KNOW TYPE Heart Brother ND Hypertension Daughter Colon Cancer Brother Social History [...] Nnamdi Macdonald APRN.ARIK documented in this encounter [facility] 07-19-2024 Note HNO ID: [id number] Author: SHIRA MACDONALD MA Service: ? Author Type: Cattle Trader Type: Progress Notes Filed: 07/19/2024 08:45 Note Text: Scan on 07/16/2024 10:01 AM by Provider, External, PARobyC: Discharge Summary Patient admitted to [facility] for [facility] detox. Patient was started on burpenorphine-Naloxone. Patient to follow up in 1 week with PCP and to follow up with 180. Do you need to see the patient? Patient just had her wellness exam 02/2024. Shira Macdonald MA [facility] 07-19-2024 History of Presen t illness Narrative Scan on 07/16/2024 10:01 AM by Provider, MATT Monreal: Discharge Summary Patient admitted to [facility] for [facility] detox. Patient was started on burpenorphine-Naloxone. Patient to follow up in 1 week with PCP and to follow up with 180. Do you need to see the patient? Patient just had her wellness exam 02/2024. Shira Macdonald MA documented in this encounter [facility] 07-16-2024 Note [facility] Medical Records Department [address] [place] [address] Discharge Summary 07/16/24 0952 MR#: [id number] Acct: [id number] Name: KAMI WATTS Rep #: [id number] : 1965 59 From: Jeffry Rebolledo MD PCP: Dr. Earnest Dueñas MD Status:ADM IN Location: [address] Providers Date of Admission: 07/13/24 Date [...] Care Charges/Coding Visit Charges Inpatient E M: 92805 Disch Hosp >30min 07/16/24 0954 Cosigner Signature (if applicable): CC: Dr. Jeffry Rebolledo MD; Dr. Earnest Dueñas MD Signed [facility] 07-14-2024 Note HNO ID: [id number] Author: OBEY AGEE LPN Service: ? Author Type: LICENSED NURSE Type: Progress Notes Filed: 07/14/2024 07:39 Note Text: Scan on 07/13/2024 6:18 PM by ProviderRah PA-C: Consultation - Emergency Medicine Scan on 07/13/2024 6:58 PM by Rah Gabriel PA-C [facility] 07-14-2024 History of Presen t illness Narrative Scan on 07/13/2024 6:18 PM by ProviderRah PA-C: Consultation - Emergency Medicine Scan on 07/13/2024 6:58 PM by Rah Gabriel PA-C documented in this encounter [facility] 04-20-2024 Telephone encounter Note Additional attempt to reach patient by phone with no answer. Left VM to return call. 3 attempts to reach patient by phone to reschedule missed appointment with no success. No show letter was also sent to patients home address 04/13 requesting a return call for reschedule. SAMIRA Tony [facility] 04-20-2024 Miscellaneous Notes Additional attempt to [...] Farzana Llamas PA-C documented in this encounter [facility] 04-19-2024 Telephone encounter Note Left message to call office. 04/19/2024 10:25 AM. Bridgette Pascal LPN [facility] 04-15-2024 Telephone encounter Note Left message to call office. 04/15/2024 10:51 AM. Bridgetet Pascal LPN [facility] 04-15-2024 Telephone encounter Note Patient missed her last appointment. Please attempt to reach out to her to reschedule. Farzana Llamas PA-C [facility] 03-31-2024 Telephone encounter Note Spoke with pt and information listed below given. Pt verbalizes understanding. Dania Narayanan LPN [facility] 03-31-2024 Miscellaneous Notes Spoke with pt and information listed below given. Pt verbalizes understanding. Dania Narayanan LPN Called and left a voicemail for the Patient to call back and ask for a nurse to receive the providers message. Marcia Souza RN Let patient know mammogram was ok. documented in this encounter [facility] 03-29-2024 Telephone encounter Note Called and left a voicemail for the Patient to call back and ask for a nurse to receive the providers message. Marcia Souza RN [facility] 03-29-2024 Telephone encounter Note Let patient know mammogram was ok. [facility] 03-29-2024 Note Formatting of this n ote might be different from the original. March 29, 2024 PID: [id number] Kami Watts [address] [place] [address] Dear Ms. Watts, We are pleased to [...] report will be kept on file at [facility] as part of your permanent medical record and are available for your continuing care. Thank you for allowing us to help in meeting your health care needs. Sincerely, Dr. Cee Interpreting Radiologist [facility] (Normal over 40) [facility] 03-29-2024 Miscellaneous Notes March 29, 2024 PID: [id number] Kami Watts [address] [place] [address] Dear Ms. Watts, We are pleased to [...] report will be kept on file at [facility] as part of your permanent medical record and are available for your continuing care. Thank you for allowing us to help in meeting your health care needs. Sincerely, Dr. Cee Interpreting Radiologist [facility] (Normal over 40) documented in this encounter [facility] 03-28-2024 History of Presen t illness [...] PATIENT PRESENTS WITH AN IMPLANTABLE OR ATTACHED SALES ORDER CLERK: No RADIOLOGY DEPARTMENT: Mammography PERIPHERAL IV DATA: Not applicable SIGNED BY: Jayjay Almendarez March 28, 2024 12:57 PM documented in this encounter [facility] 03-23-2024 Telephone encounter Note 1st attempt to contact pt to schedule, left vmail Grace Pacheco March 23, 2024 1:26 PM [facility] 03-23-2024 Miscellaneous Notes 1st attempt to [...] Farzana Llamas PA-C documented in this encounter [facility] 03-23-2024 Telephone encounter Note Please assist in scheduling PT. Thank you. SAMIRA Tony [facility] 03-23-2024 Telephone encounter Note order placed [facility] 03-23-2024 Telephone encounter Note Patient notified and voiced understanding. She is open to PT. Please place order. Shira Macdonald MA T [facility] 03-23-2024 Telephone encounter Note Xray shows moderate arthritis in left hip. Is patient open to trying some Physical Therapy? Farzana Llamas PA-C [facility] 03-21-2024 History of Presen t illness Narrative This note was created using Savelli. Wu Watts is a 58 year old [...] history is provided by the patient. No speech language specialist was used. Rash This is a new [...] Disease Mother Hypertension Mother Hearing Loss Father ND/ colon cancer Stroke Father Diabetes Father Hypertension Father Aneurysm Father Coronary Artery Disease Maternal Grandmother Hypertension Maternal Grandmother Ischemic Heart Disease Maternal Grandfather Hypertension Paternal Grandmother Coronary Artery Disease Paternal Grandmother Coronary Artery Disease Paternal Grandfather Cancer Sister CERVICAL/colon cancer Cancer Paternal Aunt DOESN'T KNOW TYPE Heart Brother ND Hypertension Daughter Colon Cancer Brother Social History [...] Comments: Right upper deltoid region with irregular kluti kaah like erythema With area of inoculation. +tenderness [...] for recheck in two days Mima Royal APRN.SCHOOL BUSINESS ADMINISTRATOR documented in this encounter [facility] 03-17-2024 Telephone encounter Note Pt notified of lab results & instructions, pt voiced understanding. Bridgette Pascal LPN [facility] 03-17-2024 Miscellaneous Notes Pt notified of lab results & instructions, pt voiced understanding. Bridgette Pascal LPN Vit d level is very low. I will send in supplement for her to start. Recheck levels in 2 months. The rest of her labs are all normal. documented in this encounter [facility] 03-17-2024 Telephone encounter Note Vit d level is very low. I will send in supplement for her to start. Recheck levels in 2 months. The rest of her labs are all normal. [facility] 03-16-2024 History of Presen t illness [...] PATIENT PRESENTS WITH AN IMPLANTABLE OR ATTACHED SALES ORDER CLERK: No RADIOLOGY DEPARTMENT: General X-ray: Exam(s) Completed: Pelvis X-Ray: Pelvis with Hip Left PERIPHERAL IV DATA: Not applicable SIGNED BY: RT Med(R) March 16, 2024 1:43 PM documented in this encounter [facility] 03-16-2024 Instructions Farzana Llamas PA-C - 03/16/2024 12:44 PM EDT Check with insurance on coverage for bone density given decreased height. Labs today Xray left hip today Schedule mammogram Set up with [facility] for CT lung- lung cancer screening. Cologuard will come in mail. Start lexapro 10mg. Follow up in 1 month. documented in this encounter [facility] 03-16-2024 History of Presen t illness [...] Disease Mother Hypertension Mother Hearing Loss Father ND/ colon cancer Stroke Father Diabetes Father Hypertension Father Aneurysm Father Coronary Artery Disease Maternal Grandmother Hypertension Maternal Grandmother Ischemic Heart Disease Maternal Grandfather Hypertension Paternal Grandmother Coronary Artery Disease Paternal Grandmother Coronary Artery Disease Paternal Grandfather Cancer Sister CERVICAL/colon cancer Cancer Paternal Aunt DOESN'T KNOW TYPE Heart Brother ND Hypertension Daughter Colon Cancer Brother Patient Allergies [...] Farzana Llamas PA-C documented in this encounter [facility] 02-29-2024 Miscellaneous Notes Patient notified.Dottie Oconnell LPN Negative for COVID flu RSV documented in this encounter [facility] 02-29-2024 Miscellaneous Notes Patient returned call, notified of results as listed below, verbalized understanding of instructions given. Belle Fonseca MA CXR negative Attempted to reach out and notify patient. Left VM to return call. If no return call, please try calling again on 03/01/24 documented in this encounter [facility] 02-29-2024 History of Presen t illness [...] PATIENT PRESENTS WITH AN IMPLANTABLE OR ATTACHED SALES ORDER CLERK: No RADIOLOGY DEPARTMENT: General X-ray: Exam(s) Completed: Chest X-Ray PERIPHERAL IV DATA: Not applicable SIGNED BY: RT Akash(R) February 29, 2024 10:27 AM documented in this encounter [facility] 02-29-2024 History of Presen t illness Narrative This note was created using Savelli. Wu Watts is a 58 year old [...] history is provided by the patient. No speech language specialist was used. URI She complains of cough, [...] Disease Mother Hypertension Mother Hearing Loss Father ND/ colon cancer Stroke Father Diabetes Father Hypertension Father Aneurysm Father Coronary Artery Disease Maternal Grandmother Hypertension Maternal Grandmother Ischemic Heart Disease Maternal Grandfather Hypertension Paternal Grandmother Coronary Artery Disease Paternal Grandmother Coronary Artery Disease Paternal Grandfather Cancer Sister CERVICAL/colon cancer Cancer Paternal Aunt DOESN'T KNOW TYPE Heart Brother ND Hypertension Daughter Colon Cancer Brother Social History [...] Mima Royal APRN.ARIK documented in this encounter [facility] 07-31-2023 History of Presen t illness Narrative View External Procedures - [ID [id number]] documented in this encounter [facility] 07-28-2023 History of Presen t illness Narrative Scan on 07/28/2023 1:35 PM by ProviderRah PA-C: Chemistry Scan on 07/28/2023 1:05 PM by ProviderRah, PAPaul: Hematology documented in this encounter [facility] 04-05-2023 Miscellaneous Notes Patient notified. Verbalized understanding. ----- Message from Beverly Kovacs APRN.SCHOOL BUSINESS ADMINISTRATOR sent at 04/05/2023 8:05 AM EDT ----- Please advise patient the COVID and flu test was negative. documented in this encounter [facility] 04-04-2023 Instructions Beverly Kovacs APRN.CNP - [...] the health department. documented in this encounter [facility] 04-04-2023 History of Presen t illness [...] Disease Mother Hypertension Mother Hearing Loss Father ND/ colon cancer Stroke Father Diabetes Father Hypertension Father Aneurysm Father Coronary Artery Disease Maternal Grandmother Hypertension Maternal Grandmother Ischemic Heart Disease Maternal Grandfather Hypertension Paternal Grandmother Coronary Artery Disease Paternal Grandmother Coronary Artery Disease Paternal Grandfather Cancer Sister CERVICAL/colon cancer Cancer Paternal Aunt DOESN'T KNOW TYPE Heart Brother ND Hypertension Daughter Colon Cancer Brother Social History [...] Beverly Kovacs APRN.ARIK documented in this encounter [facility] 03-24-2023 Miscellaneous Notes Patient given results and verbalized understanding of instructions given. Dalia Farris Please notify that covid/flu testing negative. Continue with plan of care as discussed during visit. documented in this encounter [facility] 03-23-2023 Instructions MARIO Mcgee - 03/23/2023 [...] thin out mucus documented in this encounter [facility] 03-23-2023 History of Presen t illness Narrative This note was created using Savelli. Wu Watts is a 57 year old [...] Disease Mother Hypertension Mother Hearing Loss Father ND/ colon cancer Stroke Father Diabetes Father Hypertension Father Aneurysm Father Coronary Artery Disease Maternal Grandmother Hypertension Maternal Grandmother Ischemic Heart Disease Maternal Grandfather Hypertension Paternal Grandmother Coronary Artery Disease Paternal Grandmother Coronary Artery Disease Paternal Grandfather Cancer Sister CERVICAL/colon cancer Cancer Paternal Aunt DOESN'T KNOW TYPE Heart Brother ND Hypertension Daughter Colon Cancer Brother Social History [...] evaluation. MARIO Mcgee documented in this encounter [facility] 01-09-2023 History of Presen t illness Narrative Scan on 01/09/2023 9:53 AM by External Provider: Consultation - Please review. Shira Macdonald MA documented in this encounter [facility] 12-16-2022 Miscellaneous Notes Pt called and is notified of providers results. Pt voices understanding. Marcia Souza RN Let patient know that her labs all look okay. A1c is 5.7% which is border of normal and prediabetes. Farzana Llamas PA-C documented in this encounter [facility] 12-15-2022 History of Presen t illness [...] Disease Mother Hypertension Mother Hearing Loss Father ND/ colon cancer Stroke Father Diabetes Father Hypertension Father Aneurysm Father Coronary Artery Disease Maternal Grandmother Hypertension Maternal Grandmother Ischemic Heart Disease Maternal Grandfather Hypertension Paternal Grandmother Coronary Artery Disease Paternal Grandmother Coronary Artery Disease Paternal Grandfather Cancer Sister CERVICAL/colon cancer Cancer Paternal Aunt DOESN'T KNOW TYPE Heart Brother ND Hypertension Daughter Colon Cancer Brother Patient Allergies [...] Farzana Llamas PA-C documented in this encounter [facility] 10-01-2022 Instructions Lou Yu APRN.SCHOOL BUSINESS ADMINISTRATOR - 10/01/2022 2:[address] Cydney Molina uro-gynecology at [facility]. documented in this encounter [facility] 10-01-2022 History of Presen t illness Narrative Flooring Mechanic offered: Patient declines. Kami Watts is a [...] Live Births0 Comment: One set of twins Senior Animator History LMP: 01/15/2017 (Within Days), Postmenopausal Age at Menarche: Age at First : Age at Menopause: Senior Animator History Comments: Sexual Activity: Not Currently; Male; [...] Disease Mother Hypertension Mother Hearing Loss Father ND/ colon cancer Stroke Father Diabetes Father Hypertension Father Aneurysm Father Coronary Artery Disease Maternal Grandmother Hypertension Maternal Grandmother Ischemic Heart Disease Maternal Grandfather Hypertension Paternal Grandmother Coronary Artery Disease Paternal Grandmother Coronary Artery Disease Paternal Grandfather Cancer Sister CERVICAL/colon cancer Cancer Paternal Aunt DOESN'T KNOW TYPE Heart Brother ND Hypertension Daughter Colon Cancer Brother Social History [...] external genitalia normal, normal Bartholin's glands, urethra, Kress's glands, no vulvar lesions, no cervical lesions, [...] surgical management. Prefers to see a local uro-senior c developer. Consult placed and pt given information for Dr Molina. Lou Yu APRN.CNP I spent a total of 25 minutes on the date of the service which included preparing to see the patient, [id number] patient care, completing clinical documentation, obtaining and/or reviewing separately obtained history, performing a medically appropriate examination, counseling and educating the patient/family/caregiver, and ordering medications, tests, or procedures. documented in this encounter [facility] 07-25-2022 History of Presen t illness Narrative Chief Complaint Patient presents with: Depression: Discuss medications for depression HPI Kami Watts is a 57 year old female who presents here today for Above Complaints.. Patient has been having continued issues with depression/anxiety. She was scheduled to start with the [facility] IOP back in march but patient states [...] Disease Mother Hypertension Mother Hearing Loss Father ND/ colon cancer Stroke Father Diabetes Father Hypertension Father Aneurysm Father Coronary Artery Disease Maternal Grandmother Hypertension Maternal Grandmother Ischemic Heart Disease Maternal Grandfather Hypertension Paternal Grandmother Coronary Artery Disease Paternal Grandmother Coronary Artery Disease Paternal Grandfather Cancer Sister CERVICAL/colon cancer Cancer Paternal Aunt DOESN'T KNOW TYPE Heart Brother ND Hypertension Daughter Colon Cancer Brother Patient Allergies [...] Farzana Llamas PA-C documented in this encounter [facility] 06-25-2022 Instructions Farzana Llamas PA-C - 06/25/2022 7:44 AM EDT Will get an opinion from surgeon to see if they feel a possible hernia in that area. Could consider further testing if worsening or not resolving. documented in this encounter [facility] 06-25-2022 History of Presen t illness [...] Disease Mother Hypertension Mother Hearing Loss Father ND/ colon cancer Stroke Father Diabetes Father Hypertension Father Aneurysm Father Coronary Artery Disease Maternal Grandmother Hypertension Maternal Grandmother Ischemic Heart Disease Maternal Grandfather Hypertension Paternal Grandmother Coronary Artery Disease Paternal Grandmother Coronary Artery Disease Paternal Grandfather Cancer Sister CERVICAL/colon cancer Cancer Paternal Aunt DOESN'T KNOW TYPE Heart Brother ND Hypertension Daughter Colon Cancer Brother Patient Allergies [...] Farzana Llamas PA-C documented in this encounter [facility] 06-22-2022 History of Presen t illness [...] this. Patient scheduled. documented in this encounter [facility] 04-16-2022 History of Presen t illness Narrative Chief Complaint Patient presents with: Depression HPI Kami Watts is a 56 year old female who presents here today for Above Complaints.. Patient has been having increasing anxiety over the past couple months. Getting to the point that she can't get things done and effecting interactions with other. She is set to start [facility] IOP tomorrow. Has been having chest pain [...] Disease Mother Hypertension Mother Hearing Loss Father ND/ colon cancer Stroke Father Diabetes Father Hypertension Father Aneurysm Father Coronary Artery Disease Maternal Grandmother Hypertension Maternal Grandmother Ischemic Heart Disease Maternal Grandfather Hypertension Paternal Grandmother Coronary Artery Disease Paternal Grandmother Coronary Artery Disease Paternal Grandfather Cancer Sister CERVICAL/colon cancer Cancer Paternal Aunt DOESN'T KNOW TYPE Heart Brother ND Hypertension Daughter Colon Cancer Brother Patient Allergies [...] enter into the intensive outpatient program through [facility] Will let them start medication management. - EXERCISE STRESS ECG (WITHOUT IMAGING) Farzana Llamas PA-C documented in this encounter [facility] 03-06-2022 History of Presen t illness [...] Disease Mother Hypertension Mother Hearing Loss Father ND/ colon cancer Stroke Father Diabetes Father Hypertension Father Aneurysm Father Coronary Artery Disease Maternal Grandmother Hypertension Maternal Grandmother Ischemic Heart Disease Maternal Grandfather Hypertension Paternal Grandmother Coronary Artery Disease Paternal Grandmother Coronary Artery Disease Paternal Grandfather Cancer Sister CERVICAL/colon cancer Cancer Paternal Aunt DOESN'T KNOW TYPE Heart Brother ND Hypertension Daughter Colon Cancer Brother Social History [...] further evaluation care. Patient will proceed to [facility] for further evaluation and care. Earnest Ramirez APRN.ARIK documented in this encounter [facility] 04-13-2021 History of Presen t illness [...] 2021 10:18 AM documented in this encounter [facility] Evaluation + Plan note No data available for this section [facility] Evaluation note Diagnosis Onset Date Abdominal pain acute [facility] Work Phone: Evaluation note* Diagnosis Right flank pain- Primary Abdominal pain, unspecified site [facility]* Diagnosis Chest pain, unspecified type- Primary HERNANDEZ (dyspnea on exertion) Other dyspnea and respiratory abnormality Palpitations Current moderate episode of major depressive disorder, unspecified whether recurrent (HCC) [facility] noteNo assessment information [facility]WMer[facility] Work Phone: Evaluation note* Diagnosis APPOINTMENT CANCELLED- Primary [facility] Diagnosis Right lower quadrant abdominal pain- Primary Abdominal pain, right lower quadrant [facility]* Diagnosis Moderate episode of recurrent major depressive disorder (HCC)- Primary [facility] Diagnosis Encounter for screening mammogram for breast cancer [facility] Diagnosis Cystocele, midline- Primary Rectocele [facility] Diagnosis EDER (generalized anxiety disorder)- Primary Generalized anxiety disorder Moderate episode of recurrent major depressive disorder (HCC) Weight loss Loss of weight Screening for diabetes mellitus Encounter for lipid screening for cardiovascular disease Screening for lipoid disorders [facility] Diagnosis URI, acute- Primary Acute upper respiratory infections of unspecified site Sore throat Acute pharyngitis [facility] Diagnosis Sore throat- Primary Acute pharyngitis Flu-like symptoms Other general symptoms Nausea and vomiting, unspecified vomiting type documented in this encounter [facility] note* Diagnosis Encounter for screening mammogram for breast cancer [facility] Diagnosis URI, acute- Primary Acute upper respiratory infections of unspecified site Acute cough Conjunctivitis of both eyes, unspecified conjunctivitis type [facility] Diagnosis Encounter for screening for malignant [...] region and thigh [facility] Vitamin D deficiency- Primary Unspecified vitamin D deficiency [facility] Diagnosis Cellulitis of right upper arm- Primary Cellulitis and abscess of upper arm and forearm [facility] Diagnosis Encounter for screening for malignant neoplasm of breast, unspecified screening modality [facility] Diagnosis Left hip pain- Primary Pain in joint, pelvic region and thigh [facility] Diagnosis Left hip pain Pain in joint, pelvic region and thigh [facility] Diagnosis URI, acute Acute upper respiratory infections of unspecified site Acute cough [facility] Diagnosis Dysuria- Primary Recurrent UTI (urinary tract infection) Urinary tract infection, site not specified [facility]* Diagnosis Neck pain Cervicalgia Hip pain, bilateral Pain in joint, pelvic region and thigh [facility] Diagnosis Sinobronchitis- Primary Unspecified sinusitis (chronic) [facility] Diagnosis Well adult exam- Primary Routine [...] for lung cancer [facility] Diagnosis Vitamin D deficiency- Primary Unspecified vitamin D deficiency [facility] Encounter for screening mammogram for breast cancer [facility] Work Phone: Hospital Discharge instructions No data available for this section [facility] Progress note No data available for this section [facility] Reason for referral (narrative)* Diagnostic Procedure Only (Routine) - Pending Review Specialty Diagnoses / Procedures Referred By Contac t Referred To Contact [facility] Diagnoses Encounter for screening mammogram for breast cancer Procedures DAYNA SCREENING SCREENING MAMMOGRAPHY BI 2-VIEW BREAST INC CAD Earnest Dueñas MD [facility] [place] [address] [facility] [address] [place] [address] Referral ID Status Reason Start Date Expiration Date Visits Requested Visits Authorized [id number] Pending Review Auto-Generat ed Referral 08/20/2022 09/19/2023 1 1 [facility] for referral (narrative)* Diagnostic Procedure Only (Routine) - Pending Review Specialty Diagnoses / Procedures Referred By Saima toscano Referred To Contact [facility] Diagnoses Encounter for screening mammogram for breast cancer Procedures DAYNA SCREENING SCREENING MAMMOGRAPHY BI 2-VIEW BREAST INC CAD Earnest Dueñas MD [address] [place] [address] [facility] [address] [place] [address] Referral ID Status Reason Start Date Expiration Date Visits Requested Visits Authorized [id number] Pending Review Auto-Generat ed Referral 07/29/2023 08/27/2024 1 1 T [facility] for referral (narrative)* Diagnostic Procedure Only (Routine) - Closed Specialty Diagnoses / Procedures Referred By Contac t Referred To Contact [facility] Diagnoses Left hip pain Procedures XR HIP GENERAL 3V PELV/AP/LAT LEFT RADEX HIP UNILATERAL WITH PELVIS 2-3 VIEWS Farzana Llamas PA-C [address] [place] [address] [place] [address] Referral ID Status Reason Start Date Expiration Date V isits Requested Visits Authorized [id number] Closed Auto-Generate d Referral 03/16/2024 04/15/2025 1 1 * Diagnostic Procedure Only (Routine) - Authorized Specialty Diagnoses / Procedures Referred By Contac t Referred To Contact [facility] Diagnoses Encounter for screening for malignant neoplasm of breast, unspecified screening modality Procedures DAYNA SCREENING SCREENING MAMMOGRAPHY BI 2-VIEW BREAST INC CAD Farzana Llamas PA-C [address] [place] [address] [facility] [address] [place] [address] Referral ID Status Reason Start Date Expiration Date Visits Requested Visits Authorized [id number] Authorized Auto-Generat ed Referral 03/16/2024 04/15/2025 1 1 [facility] for referral (narrative)* Diagnostic Procedure Only (Routine) - Closed Specialty Diagnoses / Procedures Referred By Contac t Referred To Contact XR IMAGING Diagnoses Left hip pain Procedures XR HIP GENERAL 3V PELV/AP/LAT LEFT RADEX HIP UNILATERAL WITH PELVIS 2-3 VIEWS Farzana Llamas PA-C [address] [place] [address] [place] [address] Referral ID Status Reason Start Date Expiration Date V isits Requested Visits Authorized [id number] Closed Auto-Generate d Referral 03/16/2024 04/15/2025 1 1 [facility] for visit Narrative* Diagnostic Procedure Only (Routine) - Closed Specialty Diagnoses / Procedures Referred By Contac t Referred To Contact [facility] Diagnoses Encounter for screening for malignant neoplasm of breast, unspecified screening modality Procedures DAYNA SCREENING SCREENING MAMMOGRAPHY BI 2-VIEW BREAST INC CAD Farzana Llamas PA-C [address] [place] [address] [facility] [address] [place] [address] Referral ID Status Reason Start Date Expiration Date V isits Requested Visits Authorized [id number] Closed Auto-Generate d Referral 03/16/2024 04/15/2025 1 1 [facility] for visit Narrative* Diagnostic Procedure Only (Routine) - Closed Specialty Diagnoses / Procedures Referred By Contac t Referred To Contact XR IMAGING Diagnoses Left hip pain Procedures XR HIP GENERAL 3V PELV/AP/LAT LEFT RADEX HIP UNILATERAL WITH PELVIS 2-3 VIEWS Farzana Llamas PA-C [address] [place] [address] [place] [address] Referral ID Status Reason Start Date Expiration Date V isits Requested Visits Authorized [id number] Closed Auto-Generate d Referral 03/16/2024 04/15/2025 1 1 [facility] for visit Narrative* Diagnostic Procedure Only (Routine) - Closed Specialty Diagnoses / Procedures Referred By Contdebbie t Referred To Contact [facility] Diagnoses Encounter for screening mammogram for breast cancer Procedures DAYNA SCREENING W SRIDEVI SCREENING DIGITAL BREAST TOMOSYNTHESIS BI SCREENING MAMMOGRAPHY BI 2-VIEW BREAST INC CAD Joan Talley, LAUREN.SCHOOL BUSINESS ADMINISTRATOR [address] [place] [address] Phone: tel: fax: [facility] [address] [place] [address] Referral ID Status Reason Start Date Expiration Date V isits Requested Visits Authorized [id number] Closed Auto-Generate d Referral 02/28/2025 03/30/2026 1 1 [facility] Summary Purpose Family History No Family [...] No March 06, 2022 10:29am Power of Lead Cashier No March 06 10:29am Documents on File Type Date Recorded Patient Cytometry Technologist Expl anation Advance Directive(s) 11/04/2016 12:44 PM Advance Directive(s) 10/29/2016 11:14 AM Advance Directive Response Recorded Date/ Time Advance Directives No October 6:36pm Living Will No June 18, 2022 10:38am Power of Lead Cashier No June 18 10:38am Documents on File Type Date Recorded Patient Cytometry Technologist Expl anation Advance Directive(s) 11/04/2016 12:44 PM Advance Directive(s) 10/29/2016 11:14 AM Advance Directive Response Recorded Date/ Time Advance Directives No October 6:36pm Living Will No August 24 12:16pm Power of Lead Cashier No August 24 12:16pm Advance Directive Response Recorded Date/ Time Advance Directives No October 6:36pm Living Will No September 06 12:37pm Power of Lead Cashier No September 06, 2022 12:37pm Chief Complaint [...] pain Procedures CONSULT TO GENERAL SURGERY OFFICE/OUTPATIENT [facility] 60-74 MINUTES Farzana Llamas PA-C [address] [place] [address] Referral ID Status Reason Start Date Expiration Date Visits Requested Visits Authorized [id number] Authorized PCP Requested Referral 06/25/2022 06/25/2023 1 1 Specialty Diagnoses / Procedures Referred By Contac t Referred To Contact Diagnoses Cystocele, midline Rectocele Procedures CONSULT TO URO GYNECOLOGY Lou Yu APRN.SCHOOL BUSINESS ADMINISTRATOR [address] [place] [address] Referral ID Status Reason Start Date Expiration Date Visits Requested Visits Authorized [id number] Ref Not Required PCP Requested Referral 10/01/2022 10/01/2023 1 1 Specialty Diagnoses / Procedures Referred By Contac t Referred To Contact [facility] Diagnoses Left hip pain Procedures CONSULT TO PHYSICAL THERAPY PHYSICAL THERAPY EVALUATION HIGH COMPLEX 45 MINS Farzana Llamas PA-C [address] [place] [address] [facility] [address] [place] [address] Referral ID Status Reason Start Date Expiration Date Visits Requested Visits Authorized [id number] Pending Review Auto-Generat ed Referral 03/23/2024 03/23/2025 1 1 Health Concerns Infection Onset Date Last Indicated Resolved Time COVID-19 Rule-Out 03/23/2023 03/23/2023 03/24/2023 5:05 AM EDT Infection Onset Date Last Indicated Resolved Time COVID-19 Rule-Out 02/29/2024 02/29/2024 02/29/2024 6:42 PM EDT Additional Source Comments INFORMATION SOURCE (unrecogn ized section and content) DATE CREATED AUTHOR 01/11/2019 [facility] DATE CREATED AUTHOR AUTHOR'S ORGANIZ ATION 01/11/2019 [facility] DATE CREATED AUTHOR AUTHOR'S ORGANIZ ATION 02/07/2020 [facility] DATE CREATED AUTHOR AUTHOR'S ORGANIZ ATION 10/09/2022 [facility] ([place]) DATE CREATED AUTHOR AUTHOR'S ORGANIZ ATION 03/16/2025 [facility] DATE CREATED AUTHOR AUTHOR'S ORGANIZ ATION 05/06/2025 [facility] Goals (unrecognized section and content) Goals may [...] or prosecute any alcohol or drug abuse patient.[facility] Hospital[facility] the event this information is protected by the Federal Confidentiality of Alcohol and Drug Abuse Patient Records regulations: The Federal rules restrict any use of the information to criminally investigate or prosecute any alcohol or drug abuse patient.[facility] HospitalIn the event this information is protected by the Federal Confidentiality of Alcohol and Drug Abuse Patient Records regulations: The Federal rules restrict any use of the information to criminally investigate or prosecute any alcohol or drug abuse patient.[facility] HospitalIn the event this information is protected by the Federal Confidentiality of Alcohol and Drug Abuse Patient Records regulations: The Federal rules restrict any use of the information to criminally investigate or prosecute any alcohol or drug abuse patient.[facility] HospitalIn the event this information is protected by the Federal Confidentiality of Alcohol and Drug Abuse Patient Records regulations: The Federal rules restrict any use of the information to criminally investigate or prosecute any alcohol or drug abuse patient.[facility] HospitalIn the event this information is protected by the Federal Confidentiality of Alcohol and Drug Abuse Patient Records regulations: The Federal rules restrict any use of the information to criminally investigate or prosecute any alcohol or drug abuse patient.[facility] HospitalIn the event this information is protected by the Federal Confidentiality of Alcohol and Drug Abuse Patient Records regulations: The Federal rules restrict any use of the information to criminally investigate or prosecute any alcohol or drug abuse patient.[facility] HospitalIn the event this information is protected by the Federal Confidentiality of Alcohol and Drug Abuse Patient Records regulations: The Federal rules restrict any use of the information to criminally investigate or prosecute any alcohol or drug abuse patient.[facility] HospitalIn the event this information is protected by the Federal Confidentiality of Alcohol and Drug Abuse Patient Records regulations: The Federal rules restrict any use of the information to criminally investigate or prosecute any alcohol or drug abuse patient.[facility] HospitalIn the event this information is protected by the Federal Confidentiality of Alcohol and Drug Abuse Patient Records regulations: The Federal rules restrict any use of the information to criminally investigate or prosecute any alcohol or drug abuse patient.[facility] HospitalIn the event this information is protected by the Federal Confidentiality of Alcohol and Drug Abuse Patient Records regulations: The Federal rules restrict any use of the information to criminally investigate or prosecute any alcohol or drug abuse patient.[facility] HospitalIn the event this information is protected by the Federal Confidentiality of Alcohol and Drug Abuse Patient Records regulations: The Federal rules restrict any use of the information to criminally investigate or prosecute any alcohol or drug abuse patient.[facility] HospitalIn the event this information is protected by the Federal Confidentiality of Alcohol and Drug Abuse Patient Records regulations: The Federal rules restrict any use of the information to criminally investigate or prosecute any alcohol or drug abuse patient.[facility] HospitalIn the event this information is protected by the Federal Confidentiality of Alcohol and Drug Abuse Patient Records regulations: The Federal rules restrict any use of the information to criminally investigate or prosecute any alcohol or drug abuse patient.[facility] HospitalIn the event this information is protected by the Federal Confidentiality of Alcohol and Drug Abuse Patient Records regulations: The Federal rules restrict any use of the information to criminally investigate or prosecute any alcohol or drug abuse patient.[facility] HospitalIn the event this information is protected by the Federal Confidentiality of Alcohol and Drug Abuse Patient Records regulations: The Federal rules restrict any use of the information to criminally investigate or prosecute any alcohol or drug abuse patient.[facility] HospitalIn the event this information is protected by the Federal Confidentiality of Alcohol and Drug Abuse Patient Records regulations: The Federal rules restrict any use of the information to criminally investigate or prosecute any alcohol or drug abuse patient.[facility] HospitalIn the event this information is protected by the Federal Confidentiality of Alcohol and Drug Abuse Patient Records regulations: The Federal rules restrict any use of the information to criminally investigate or prosecute any alcohol or drug abuse patient.[facility] HospitalIn the event this information is protected by the Federal Confidentiality of Alcohol and Drug Abuse Patient Records regulations: The Federal rules restrict any use of the information to criminally investigate or prosecute any alcohol or drug abuse patient.[facility] HospitalIn the event this information is protected by the Federal Confidentiality of Alcohol and Drug Abuse Patient Records regulations: The Federal rules restrict any use of the information to criminally investigate or prosecute any alcohol or drug abuse patient.[facility] HospitalIn the event this information is protected by the Federal Confidentiality of Alcohol and Drug Abuse Patient Records regulations: The Federal rules restrict any use of the information to criminally investigate or prosecute any alcohol or drug abuse patient.[facility] HospitalIn the event this information is protected by the Federal Confidentiality of Alcohol and Drug Abuse Patient Records regulations: The Federal rules restrict any use of the information to criminally investigate or prosecute any alcohol or drug abuse patient.[facility] HospitalIn the event this information is protected by the Federal Confidentiality of Alcohol and Drug Abuse Patient Records regulations: The Federal rules restrict any use of the information to criminally investigate or prosecute any alcohol or drug abuse patient.[facility] HospitalIn the event this information is protected by the Federal Confidentiality of Alcohol and Drug Abuse Patient Records regulations: The Federal rules restrict any use of the information to criminally investigate or prosecute any alcohol or drug abuse patient.[facility] HospitalIn the event this information is protected by the Federal Confidentiality of Alcohol and Drug Abuse Patient Records regulations: The Federal rules restrict any use of the information to criminally investigate or prosecute any alcohol or drug abuse patient.[facility] HospitalIn the event this information is protected by the Federal Confidentiality of Alcohol and Drug Abuse Patient Records regulations: The Federal rules restrict any use of the information to criminally investigate or prosecute any alcohol or drug abuse patient.[facility] HospitalIn the event this information is protected by the Federal Confidentiality of Alcohol and Drug Abuse Patient Records regulations: The Federal rules restrict any use of the information to criminally investigate or prosecute any alcohol or drug abuse patient.[facility] HospitalIn the event this information is protected by the Federal Confidentiality of Alcohol and Drug Abuse Patient Records regulations: The Federal rules restrict any use of the information to criminally investigate or prosecute any alcohol or drug abuse patient.[facility] HospitalIn the event this information is protected by the Federal Confidentiality of Alcohol and Drug Abuse Patient Records regulations: The Federal rules restrict any use of the information to criminally investigate or prosecute any alcohol or drug abuse patient.[facility] HospitalIn the event this information is protected by the Federal Confidentiality of Alcohol and Drug Abuse Patient Records regulations: The Federal rules restrict any use of the information to criminally investigate or prosecute any alcohol or drug abuse patient.[facility] HospitalIn the event this information is protected by the Federal Confidentiality of Alcohol and Drug Abuse Patient Records regulations: The Federal rules restrict any use of the information to criminally investigate or prosecute any alcohol or drug abuse patient.[facility] HospitalIn the event this information is protected by the Federal Confidentiality of Alcohol and Drug Abuse Patient Records regulations: The Federal rules restrict any use of the information to criminally investigate or prosecute any alcohol or drug abuse patient.[facility] HospitalIn the event this information is protected by the Federal Confidentiality of Alcohol and Drug Abuse Patient Records regulations: The Federal rules restrict any use of the information to criminally investigate or prosecute any alcohol or drug abuse patient.[facility] HospitalIn the event this information is protected by the Federal Confidentiality of Alcohol and Drug Abuse Patient Records regulations: The Federal rules restrict any use of the information to criminally investigate or prosecute any alcohol or drug abuse patient.[facility] HospitalIn the event this information is protected by the Federal Confidentiality of Alcohol and Drug Abuse Patient Records regulations: The Federal rules restrict any use of the information to criminally investigate or prosecute any alcohol or drug abuse patient.[facility] HospitalIn the event this information is protected by the Federal Confidentiality of Alcohol and Drug Abuse Patient Records regulations: The Federal rules restrict any use of the information to criminally investigate or prosecute any alcohol or drug abuse patient.[facility] HospitalIn the event this information is protected by the Federal Confidentiality of Alcohol and Drug Abuse Patient Records regulations: The Federal rules restrict any use of the information to criminally investigate or prosecute any alcohol or drug abuse patient.[facility] HospitalIn the event this information is protected by the Federal Confidentiality of Alcohol and Drug Abuse Patient Records regulations: The Federal rules restrict any use of the information to criminally investigate or prosecute any alcohol or drug abuse patient.[facility] HospitalIn the event this information is protected by the Federal Confidentiality of Alcohol and Drug Abuse Patient Records regulations: The Federal rules restrict any use of the information to criminally investigate or prosecute any alcohol or drug abuse patient.[facility] HospitalIn the event this information is protected by the Federal Confidentiality of Alcohol and Drug Abuse Patient Records regulations: The Federal rules restrict any use of the information to criminally investigate or prosecute any alcohol or drug abuse patient.[facility] HospitalIn the event this information is protected by the Federal Confidentiality of Alcohol and Drug Abuse Patient Records regulations: The Federal rules restrict any use of the information to criminally investigate or prosecute any alcohol or drug abuse patient.[facility] HospitalIn the event this information is protected by the Federal Confidentiality of Alcohol and Drug Abuse Patient Records regulations: The Federal rules restrict any use of the information to criminally investigate or prosecute any alcohol or drug abuse patient.[facility] HospitalIn the event this information is protected [...] or prosecute any alcohol or drug abuse patient.[facility] HospitalIn the event this information is protected by the Federal Confidentiality of Alcohol and Drug Abuse Patient Records regulations: The Federal rules restrict any use of the information to criminally investigate or prosecute any alcohol or drug abuse patient.[facility] HospitalIn the event this information is protected by the Federal Confidentiality of Alcohol and Drug Abuse Patient Records regulations: The Federal rules restrict any use of the information to criminally investigate or prosecute any alcohol or drug abuse patient.[facility] HospitalIn the event this information is protected by the Federal Confidentiality of Alcohol and Drug Abuse Patient Records regulations: The Federal rules restrict any use of the information to criminally investigate or prosecute any alcohol or drug abuse patient.[facility] HospitalIn the event this information is protected by the Federal Confidentiality of Alcohol and Drug Abuse Patient Records regulations: The Federal rules restrict any use of the information to criminally investigate or prosecute any alcohol or drug abuse patient.[facility] Reason for Visit (unrecogniz ed section [...] chills started this morning Reason Comments Outside [id number] Ordered Reason Comments ext document Uro Procedure [...] Reason Comments Physical Reason Comments ER F/U [facility] Reason Comments Hospital F/U [facility] - Discharge Care Teams (unrecognized sec tion and content) Spout Liner Relationship Specialty Start Date End Date Earnest Dueñas MD [address] [place] [address] PCP - General Family Practice 01/17/16 Spout Liner Relationship Specialty Start Date End Date Earnest Dueñas MD [address] [place] [address] PCP - General Family Practice 01/17/16 Spout Liner Relationship Specialty Start Date End Date Earnest Dueñas MD [address] [facility] [place] [address] PCP - General Family Practice 01/17/16 Spout Liner Relationship Specialty Start Date End Date Earnest Dueñas MD [address] [facility] [place] [address] PCP - General Family Practice 01/17/16 Spout Liner Relationship Specialty Start Date End Date Earnest Dueñas MD [address] [facility] [place] [address] PCP - General Family Practice 01/17/16 Spout Liner Relationship Specialty Start Date End Date Earnest Dueñas MD [address] [facility] [place] [address] PCP - General Family Medicine 01/17/16 Spout Liner Relationship Specialty Start Date End Date Earnest Dueñas MD [address] [facility] [place] [address] PCP - General Family Medicine 01/17/16 Spout Liner Relationship Specialty Start Date End Date Earnest Dueñas MD [address] [facility] [place] [address] PCP - General Family Medicine 01/17/16 Spout Liner Relationship Specialty Start Date End Date Earnest Dueñas MD [address] [facility] [place] [address] PCP - General Family Medicine 01/17/16 Spout Liner Relationship Specialty Start Date End Date Earnest Dueñas MD [address] [facility] [place] [address] PCP - General Family Medicine 01/17/16 Spout Liner Relationship Specialty Start Date End Date Earnest Dueñas MD [address] [place] [address] PCP - General Family Medicine 01/17/16 Spout Liner Relationship Specialty Start Date End Date Earnest Dueñas MD [address] [place] [address] PCP - General Family Medicine 01/17/16 Spout Liner Relationship Specialty Start Date End Date Earnest Dueñas MD [address] [place] [address] PCP - General Family Medicine 01/17/16 Spout Liner Relationship Specialty Start Date End Date Earnest Dueñas MD [address] [place] [address] PCP - General Family Medicine 01/17/16 Spout Liner Relationship Specialty Start Date End Date Earnest Dueñas MD [address] [place] [address] PCP - General Family Medicine 01/17/16 Spout Liner Relationship Specialty Start Date End Date Earnest Dueñas MD [address] [place] [address] PCP - General Family Medicine 01/17/16 Spout Liner Relationship Specialty Start Date End Date Earnest Dueñas MD [address] [place] [address] PCP - General Family Medicine 01/17/16 Spout Liner Relationship Specialty Start Date End Date Earnest Dueñas MD [address] [place] [address] PCP - General Family Medicine 01/17/16 Spout Liner Relationship Specialty Start Date End Date Earnest Dueñas MD [address] [facility] [place] [address] PCP - General Family Medicine 01/17/16 Spout Liner Relationship Specialty Start Date End Date Earnest Dueñas MD [address] [facility] [place] [address] PCP - General Family Medicine 01/17/16 Spout Liner Relationship Specialty Start Date End Date Earnest Dueñas MD [address] [place] [address] PCP - General Family Medicine 01/17/16 Spout Liner Relationship Specialty Start Date End Date Earnest Dueñas MD [address] [place] [address] PCP - General Family Medicine 01/17/16 Spout Liner Relationship Specialty Start Date End Date Earnest Dueñas MD [address] [place] [address] PCP - General Family Medicine 01/17/16 Spout Liner Relationship Specialty Start Date End Date Earnest Dueñas MD [address] [place] [address] PCP - General Family Medicine 01/17/16 Spout Liner Relationship Specialty Start Date End Date Earnest Dueñas MD [address] [place] [address] PCP - General Family Medicine 01/17/16 Spout Liner Relationship Specialty Start Date End Date Earnest Dueñas MD [address] [place] [address] PCP - General Family Medicine 01/17/16 Spout Liner Relationship Specialty Start Date End Date Earnest Dueñas MD [address] [place] [address] PCP - General Family Medicine 01/17/16 Spout Liner Relationship Specialty Start Date End Date Earnest Dueñas MD [address] [place] [address] PCP - General Family Medicine 01/17/16 Spout Liner Relationship Specialty Start Date End Date Earnest Dueñas MD [address] [place] [address] PCP - General Family Medicine 01/17/16 Spout Liner Relationship Specialty Start Date End Date Earnest Dueñas MD [address] [place] [address] PCP - General Family Medicine 01/17/16 Joan Talley, LAUREN.SCHOOL BUSINESS ADMINISTRATOR [address] [place] [address] Business Relations Manager Family Medicine 10/29/24 Farzana Llamas PA-C [address] [place] [address] Business Relations Manager Family Medicine 10/29/24 Spout Liner Relationship Specialty Start Date End Date Earnest Dueñas MD [address] [place] [address] PCP - General Family Medicine 01/17/16 Joan Talley, LAUREN.SCHOOL BUSINESS ADMINISTRATOR [address] [place] [address] Business Relations Manager Family Medicine 10/29/24 Farzana Llamas PA-C [address] [place] [address] Business Relations Manager Family Medicine 10/29/24 Spout Liner Relationship Specialty Start Date End Date Earnest Dueñas MD [address] [place] [address] PCP - General Family Medicine 01/17/16 Joan Talley, LAUREN.SCHOOL BUSINESS ADMINISTRATOR [address] [place] [address] Business Relations Manager Family Medicine 10/29/24 Farzana Llamas PA-C [address] [place] [address] Business Relations Manager Family Medicine 10/29/24 Spout Liner Relationship Specialty Start Date End Date Earnest Dueñas [place] [address] [place] [address] PCP - General Family Medicine 01/17/16 Joan Talley APRN.SCHOOL BUSINESS ADMINISTRATOR [address] [place] [address] Business Relations Manager Family Medicine 10/29/24 Farzana Llamas PA-C [address] [place] [address] Business Relations Manager Family Medicine 10/29/24 Spout Liner Relationship Specialty Start Date End Date Earnest Dueñas MD [address] [place] [address] PCP - General Family Medicine 02/27/25 Joan Talley, RESIDENT PROGRAM SPECIALIST.SCHOOL BUSINESS ADMINISTRATOR [address] [place] [address] Business Relations Manager [facility] 10/29/24 Farzana Llamas PA-C [address] [place] [address] [facility] 10/29/24 Spout Liner Relationship Specialty Start Date End Date Earnest Dueñas MD [address] [place] [address] PCP - General Family Medicine 02/27/25 Joan Talley APRN.SCHOOL BUSINESS ADMINISTRATOR [address] [place] [address] [facility] 10/29/24 Farzana Llamas PA-C [address] [place] [address] [facility] 10/29/24 Spout Liner Relationship Specialty Start Date End Date Earnest Dueñas MD [address] [place] [address] PCP - General Family Medicine 02/27/25 Joan Talley APRN.SCHOOL BUSINESS ADMINISTRATOR [address] [place] [address] [facility] 10/29/24 Farzana Llamas PA-C [address] [place] [address] [facility] 10/29/24 Spout Liner Relationship Specialty Start Date End Date Earnest Dueñas MD [address] [place] [address] PCP - General Family Medicine 02/27/25 Joan Talley APRN.SCHOOL BUSINESS ADMINISTRATOR [address] [place] [address] [facility] 10/29/24 Farzana Llamas PA-C [address] [place] [id number] [facility] 10/29/24 Spout Liner Relationship Specialty Start Date End Date Earnest Dueñas MD [address] [place] [address] PCP - General Family Medicine 02/27/25 Joan Talley APRN.SCHOOL BUSINESS ADMINISTRATOR [address] [place] [address] [facility] 10/29/24 Farzana Llamas PA-C [address] [place] [address] [facility] 10/29/24 Care Team (unrecognized sect ion and content) Care Team Personnel Name: EARNEST DUEÑAS MD Member Role: Primary Care Physician Address: Address: [address] [place] [id number]- Name: ARJUN SLAUGHTER MD Position: ED Physician Member Role: Attending Physician Address: Address: [facility] [address] [place] [id number]- Name: Diamond Botello RN Position: PATI RN [...] BASED ON THE PRIMARY CLINICAL RECORDS. [email or web address] [facility]. provides no warranty or guarantee of the accuracy or completeness of information in this document.
[2025-05-11] MEDS: busPIRone 5 MG Tablet 10 MG PO (23:18)
[2025-05-11] MEDS: Phenobarbital 32.4 MG Tablet PO (23:18)
[2025-05-11] MEDS: Ondansetron 8 MG Tablet PO (23:23)
[2025-05-11] MEDS: hydrOXYzine PAM 25 MG Capsule 50 MG PO (23:23)
[2025-05-11] MEDS: Acetaminophen 325 MG Tablet 650 MG PO (23:23)
[2025-05-12] MEDS: Phenobarbital 32.4 MG Tablet PO ×6 (02:07→21:50)
[2025-05-12 02:12] VITALS: BP 153/95; PULSE 72; RESP 16; TEMP 36.4; O2SAT 96
[2025-05-12] MEDS: BUPRENORPHINE SL ×3 (02:18→21:53)
[2025-05-12] MEDS: NALOXONE SL ×3 (02:18→21:53)
[2025-05-12 05:38] VITALS: BP 149/101; PULSE 65; RESP 16; TEMP 36.6; O2SAT 97
[2025-05-12] MEDS: Acetaminophen 325 MG Tablet 650 MG PO (05:45)
[2025-05-12 06:29] LABS: Hematocrit 42.6 % (37-47); Hemoglobin 14.4 g/dL (12.0-15.0); Mean Corp Hgb Conc 33.8 g/dL (32-36); Mean Corpuscular Hgb 32.3 pg (27.0-32.0); Mean Corpuscular Volume 95.5 fL (81-99); Mean Platelet Vol. 9.3 fl (6.2-12.0); Platelet Count 247 K/mm3 (150-450); RBC Distribution Width CV 13.5 % (11.6-14.6); RBC Distribution Width SD 47.7 fl (35.1-43.9); Red Blood Count 4.46 M/mm3 (4.2-5.4); White Blood Count 5.2 K/mm3 (4.4-11.0)
[2025-05-12 07:14] LABS: Anion Gap 9 (5-15); BUN 10 mg/dL (4-19); BUN/Creat Ratio 18.3 RATIO (10-20); Calcium,Total 8.7 mg/dL (7.6-11.0); Carbon Dioxide 24.1 mmol/L (21.0-32.0); Chloride 106 mmol/L (98-108); Creatinine, Serum 0.54 mg/dL (0.70-1.20); EST Glomerular Filtration Rate 106 (>60); Estimated Creatinine Clearance 117.05 ml/min (50-250); Glucose 98 mg/dL (70-99); Sodium Level 139 mmol/L (133-145)
[2025-05-12] MEDS: Thiamine Hydrochloride 100 MG Tablet PO (07:29)
[2025-05-12] MEDS: busPIRone 5 MG Tablet 10 MG PO ×2 (07:29→21:50)
[2025-05-12] MEDS: Folic Acid 1 MG Tablet PO (07:29)
[2025-05-12] MEDS: Escitalopram Oxalate 20 MG Tablet PO (07:29)
[2025-05-12] MEDS: Enoxaparin 40 MG/0.4 ML Syringe SC (07:29)
[2025-05-12 07:34] VITALS: BP 139/88; PULSE 64; RESP 16; TEMP 36.6; O2SAT 98
[2025-05-12 12:16] VITALS: BP 146/85; PULSE 68; RESP 16; TEMP 36.5; O2SAT 95
--- NOTE | 2025-05-12 13:40 | ADDICTION ---
This sheet writer met with PT to conduct ASAM, MSE, AUDIT assessments and to plan for d/c. PT A+Ox4 and participated actively. All assessments completed. PT plans to f/u with [facility] for MAT. When asked what changes she plans on making, pt reported that she also is going to start attending meetings and find a sponsor. PT did not indicate a need for transportation post d/c from [facility].
[2025-05-12 14:17] LABS: Bacteria 0 SEEN /hpf (None Seen); Mucous, Urine 0 SEEN /hpf (<or=2+)
[2025-05-12 14:26] LABS: Color, Urine Yellow (Yellow); Glucose, Dipstick Normal (Normal); Ketone-Dipstick Negative (Negative); Leukocyte Esterase-Dipstick 25 /ul (Negative); Nitrite-Dipstick Negative (Negative); Occult Blood-Urine 10 /ul (Negative); Protein-Dipstick Negative (Negative); Urine Bilirubin Dipstick Negative (Negative); Urine Clarity Clear (Clear); Urine Urobilinogen 1 mg/dl (Normal)
[2025-05-12 14:51] LABS: Red Blood Cells-Urine 0-5 SEEN /hpf (0-5); White Blood Cells 5-10 SEEN /hpf (0-5)
[2025-05-12 14:52] LABS: Squamous Epithelial Cells - UA 0-5 SEEN /hpf (5-10)
[2025-05-12 15:05] VITALS: BP 121/83; PULSE 59; RESP 16; TEMP 36.8; O2SAT 98
--- NOTE | 2025-05-12 16:22 | PN.HOSP_ITS ---
Reason for Visit Reason for Visit: Diagnoses Alcohol use, unspecified, uncomplicated (05/11/25) Subjective Subjective Patient sitting up in bed, reports she feels a little bit tired from the phenobarbital but overall without other complaints. Did amend that she occasionally gets some sharp pains in her lower abdomen at random without any dysuria, denies constipation. Come and go Objective Data Objective Data Vital Signs: Vital Signs Temp Pulse Resp BP Pulse Ox O2 Del Method 98.3 F 59 L 16 121/83 H 98 Room Air 05/12/25 15:05 05/12/25 15:05 05/12/25 15:05 05/12/25 15:05 05/12/25 15:05 05/12/25 15:05 Oxygen Delivery Method Room Air Weight: 83.2 kg Body Mass Index (BMI) 31.4 Intake & Output: Intake and Output for Last 24 Hours 05/10/25 05/11/25 05/12/25 23:59 23:59 23:59 Intake Total 1000 / 1200 750 / 750 Balance 1000 / 1200 750 / 750 Lab / Micro Data 05/12/25 05:40 05/12/25 05:40 Labs: Laboratory Results - last 24 hr 05/11/25 16:25: Urine Opiates Screen NEGATIVE, U Buprenorphine Qual PRESUMPTIVE POSITIVE, Ur Oxycodone Screen NEGATIVE, Urine Methadone Screen NEGATIVE, Urine Fentanyl Screen NEGATIVE, Ur Barbiturates Screen NEGATIVE, Ur Phencyclidine Scrn NEGATIVE, Ur Amphetamines Screen NEGATIVE, U Benzodiazepines Scrn NEGATIVE, Urine Cocaine Screen NEGATIVE, U Cannabinoids Screen NEGATIVE 05/11/25 16:30: WBC 6.5, RBC 4.63, Hgb 14.9, Hct 43.2, MCV 93.3, MCH 32.2 H, MCHC 34.5, RDW Std Deviation 45.9 H, RDW Coeff of Mamta 13.4, Plt Count 297, MPV 9.2, Immature Gran % (Auto) 0.300, Neut % (Auto) 49.9, Lymph % (Auto) 38.7, Motley % (Auto) 6.5, Eos % (Auto) 3.5, Baso % (Auto) 1.1 H, Absolute Neuts (auto) 3.3, Absolute Lymphs (auto) 2.52, Nucleated RBC % 0, Sodium 140, Potassium 3.7, Chloride 103, Carbon Dioxide 24.5, Anion Gap 12, BUN 7, Creatinine 0.59 L, Estim Creat Clear Calc 105.47, Est GFR (MDRD) Non-Af 104, BUN/Creatinine Ratio 11.8, G lucose 107 H, Calcium 8.6, Magnesium 2.0, Total Bilirubin 0.34, AST 18, ALT 13, Alkaline Phosphatase 126 H, Total Protein 6.4, Albumin 4.1, Globulin 2.3, Albumin/Globulin Ratio 1.8, Ethyl Alcohol 72.3 H 05/12/25 05:40: WBC 5.2, RBC 4.46, Hgb 14.4, Hct 42.6, MCV 95.5, MCH 32.3 H, MCHC 33.8, RDW Std Deviation 47.7 H, RDW Coeff of Mamta 13.5, Plt Count 247, MPV 9.3, Sodium 139, Potassium 4.0, Chloride 106, Carbon Dioxide 24.1, Anion Gap 9, BUN 10, Creatinine 0.54 L, Estim Creat Clear Calc 117.05, Est GFR (MDRD) Non-Af 106, BUN/Creatinine Ratio 18.3, Glucose 98, Calcium 8.7 05/12/25 14:05: Urine Color Yellow, Urine Clarity Clear, Urine pH 6.0, Ur Specific [place] 1.020, Urine Protein Negative, Urine Glucose (UA) Normal, Urine Ketones Negative, Urine Occult Blood 10 H, Urine Nitrite Negative, Urine Bilirubin Negative, Urine Urobilinogen 1 H, Ur Leukocyte Esterase 25 H, Urine RBC 0-5 SEEN, Urine WBC 5-10 SEEN, Ur Squamous Epith Cells 0-5 SEEN, Urine Bacteria 0 SEEN, Urine Mucus 0 SEEN Physical Exam Narrative General: Alert, oriented, no apparent distress HEENT: Atraumatic, normocephalic Eyes: extraocular movements grossly intact Neck: Supple Respiratory: normal respiratory effort Cardiovascular: no edema appreciated GI: nondistended, nontender, no rebound, guarding, rigidity Extremities: Moving all extremities Neuro: No overt focal neurological deficits Psych: Cooperative Assessment & Plan Assessment/Plan (1) Alcohol use disorder: (2) Desire for detoxification: PLAN: Plan Patient is a 59-year-old female who presented to [facility] ED on 05/11/2025 for alcohol detox. 1. Alcohol abuse with desire for detox ? Admit under inpatient status to [facility]. Case management consulted. Alcohol level 72 on admit with minimal withdrawal symptoms. Recently here for detox and February and tolerated phenobarbital taper well. Will treat with phenobarbital taper and other as needed medications per alcohol withdrawal order set. Appreciate case management assistance. -05/12: Patient tolerating phenobarb, little bit tired but overall doing well, continue taper Chronic medical problems and/or problems not being actively addressed during today's encounter: 2. History of opiate abuse ? Has been in remission for over a year. Encouraged continued cessation. Continue home Suboxone. 3. Tobacco abuse ? Smokes 1 pack of cigarettes per day. Continue patch ordered per patient request. Discussed cessation on discharge. 4. Anxiety/depression ? Continue home BuSpar and escitalopram. 5. Class I obesity ? BMI 32 on admit. Complicates hospital course, care and prognosis. DVT prophylaxis: Lovenox Charges/Coding Visit Charges Inpatient E&M: 76501 Subs Hosp L1
[2025-05-12 21:45] VITALS: BP 131/86; PULSE 60; RESP 16; TEMP 36.9; O2SAT 92
[2025-05-13 03:41] VITALS: BP 142/75; PULSE 56; RESP 18; TEMP 36.8; O2SAT 95
[2025-05-13] MEDS: Phenobarbital 32.4 MG Tablet PO ×6 (03:44→21:25)
[2025-05-13 08:09] VITALS: BP 145/85; PULSE 56; RESP 18; TEMP 36.6; O2SAT 94
[2025-05-13] MEDS: Thiamine Hydrochloride 100 MG Tablet PO (08:10)
[2025-05-13] MEDS: Folic Acid 1 MG Tablet PO (08:10)
--- NOTE | 2025-05-13 09:17 | PN.HOSP_ITS ---
Reason for Visit Reason for Visit: Diagnoses Alcohol use, unspecified, uncomplicated (05/11/25) Subjective Subjective Patient feeling less tired today, does occasionally still have the random pains in her lower abdomen but reports she is not constipated, does have some chronic back pain, had no other complaints, tolerating taper Objective Data Objective Data Vital Signs: Vital Signs Temp Pulse Resp BP Pulse Ox O2 Del Method FiO2 97.8 F 56 L 18 145/85 H 94 Room Air 94 05/13/25 08:09 05/13/25 08:09 05/13/25 08:09 05/13/25 08:09 05/13/25 08:09 05/13/25 08:09 05/13/25 06:58 Oxygen Delivery Method Room Air Weight: 83.2 kg Body Mass Index (BMI) 31.4 Intake & Output: Intake and Output for Last 24 Hours 05/11/25 05/12/25 05/13/25 23:59 23:59 23:59 Intake Total 1000 / 1200 1200 / 1650 950 / 950 Balance 1000 / 1200 1200 / 1650 950 / 950 Lab / Micro Data 05/12/25 05:40 05/12/25 05:40 Labs: Laboratory Results - last 24 hr 05/12/25 14:05: Urine Color Yellow, Urine Clarity Clear, Urine pH 6.0, Ur Specific [place] 1.020, Urine Protein Negative, Urine Glucose (UA) Normal, Urine Ketones Negative, Urine Occult Blood 10 H, Urine Nitrite Negative, Urine Bilirubin Negative, Urine Urobilinogen 1 H, Ur Leukocyte Esterase 25 H, Urine RBC 0-5 SEEN, Urine WBC 5-10 SEEN, Ur Squamous Epith Cells 0-5 SEEN, Urine Bacteria 0 SEEN, Urine Mucus 0 SEEN Physical Exam Narrative General: Alert, oriented, no apparent distress HEENT: Atraumatic, normocephalic Eyes: extraocular movements grossly intact Neck: Supple Respiratory: normal respiratory effort Cardiovascular: no edema appreciated GI: nondistended, nontender, no rebound, guarding, rigidity Extremities: Moving all extremities Neuro: No overt focal neurological deficits Psych: Cooperative Assessment & Plan Assessment/Plan (1) Alcohol use disorder: (2) Desire for detoxification: PLAN: Plan Patient is a 59-year-old female who presented to [facility] ED on 05/11/2025 for alcohol detox. 1. Alcohol abuse with desire for detox ? Admit under inpatient status to [facility]. Case management consulted. Alcohol level 72 on admit with minimal withdrawal symptoms. Recently here for detox and February and tolerated phenobarbital taper well. Will treat with phenobarbital taper and other as needed medications per alcohol withdrawal order set. Appreciate case management assistance. -05/12: Patient tolerating phenobarb, little bit tired but overall doing well, continue taper -05/13: Less tired today, tolerating taper, anticipate DC tomorrow or Thursday depending on patient's progress Chronic medical problems and/or problems not being actively addressed during today's encounter: 2. History of opiate abuse ? Has been in remission for over a year. Encouraged continued cessation. Continue home Suboxone. 3. Tobacco abuse ? Smokes 1 pack of cigarettes per day. Continue patch ordered per patient request. Discussed cessation on discharge. 4. Anxiety/depression ? Continue home BuSpar and escitalopram. 5. Class I obesity ? BMI 32 on admit. Complicates hospital course, care and prognosis. DVT prophylaxis: Lovenox Charges/Coding Visit Charges Inpatient E&M: 07119 Subs Hosp L1
[2025-05-13] MEDS: busPIRone 5 MG Tablet 10 MG PO ×2 (10:32→21:26)
[2025-05-13] MEDS: Enoxaparin 40 MG/0.4 ML Syringe SC (10:32)
[2025-05-13] MEDS: Escitalopram Oxalate 20 MG Tablet PO (10:32)
[2025-05-13] MEDS: NALOXONE SL ×2 (10:33→21:25)
[2025-05-13] MEDS: BUPRENORPHINE SL ×2 (10:33→21:25)
[2025-05-13 14:07] VITALS: BP 137/82; PULSE 66; RESP 18; TEMP 36.5; O2SAT 93
[2025-05-13 19:50] VITALS: BP 127/95; PULSE 70; RESP 16; TEMP 36.7; O2SAT 95
[2025-05-13 23:23] VITALS: BP 108/69; PULSE 60; RESP 16; TEMP 37; O2SAT 93
[2025-05-14] MEDS: Phenobarbital 32.4 MG Tablet PO ×3 (02:15→14:00)
[2025-05-14 05:50] VITALS: BP 162/99; PULSE 58; RESP 16; TEMP 36.8; O2SAT 94
[2025-05-14 08:56] VITALS: BP 113/79; PULSE 64; RESP 16; TEMP 36.9; O2SAT 94
[2025-05-14] MEDS: Escitalopram Oxalate 20 MG Tablet PO (09:03)
[2025-05-14] MEDS: Enoxaparin 40 MG/0.4 ML Syringe SC (09:03)
[2025-05-14] MEDS: busPIRone 5 MG Tablet 10 MG PO ×2 (09:03→21:46)
[2025-05-14] MEDS: Folic Acid 1 MG Tablet PO (09:03)
[2025-05-14] MEDS: Thiamine Hydrochloride 100 MG Tablet PO (09:03)
[2025-05-14] MEDS: BUPRENORPHINE SL ×2 (09:09→21:46)
[2025-05-14] MEDS: NALOXONE SL ×2 (09:09→21:46)
[2025-05-14] MEDS: Bisacodyl 5 MG Tablet 10 MG PO (14:00)
[2025-05-14] MEDS: 0.9% Saline Lock 10 ML Syringe IV (14:03)
[2025-05-14 14:04] VITALS: BP 129/84; PULSE 74; RESP 16; TEMP 36.9; O2SAT 94
--- NOTE | 2025-05-14 17:16 | PCM.PN.HOSP ---
Reason for Visit Reason for Visit: Diagnoses Alcohol use, unspecified, uncomplicated (05/11/25) Subjective Subjective Patient was seen and examined today, she still feels shaky and feels as if she needs to stay another night in the hospital. Objective Data Objective Data Vital Signs: Vital Signs Temp Pulse Resp BP Pulse Ox O2 Del Method FiO2 98.4 F 74 16 129/84 H 94 Room Air 94 05/14/25 14:04 05/14/25 14:04 05/14/25 14:04 05/14/25 14:04 05/14/25 14:04 05/14/25 14:04 05/13/25 06:58 Oxygen Delivery Method Room Air Weight: 83.2 kg Body Mass Index (BMI) 31.4 Intake & Output: Intake and Output for Last 24 Hours 05/12/25 05/13/25 05/14/25 23:59 23:59 23:59 Intake Total 1200 / 1650 1999 / 1999 650 / 650 Balance 1200 / 1650 1999 / 1999 650 / 650 Lab / Micro Data 05/12/25 05:40 05/12/25 05:40 Micro: Microbiology 05/12/25 14:05 Urine, Clean Catch Urine Culture - Final Mixed Gram Positive Organisms Physical Exam Const alert, oriented x3, no apparent distress and healthy appearing General Appearance: cooperative, well kempt and well developed Orientation / Consciousness: awake, oriented to person, oriented to place and oriented to time HEENT normocephalic and moist oral mucous membranes Eyes PERRL, EOMs intact bilaterally and conjunctivae normal Neck supple, no JVD, thyroid normal and no carotid bruits General: trachea midline Resp normal respiratory effort and clear to auscultation bilaterally Auscultation: Negative for rales, rhonchi or wheezes Cardio regular rate, regular rhythm, no murmurs, no rub and no gallops GI normal to inspection, nondistended, normoactive bowel sounds, soft to palpation, non-tender and non-distended Extremity no clubbing, cyanosis or edema Skin no rashes or lesions noted General Skin Exam: no breakdown Neuro oriented x3, CN's II-XII intact bilaterally, moves all extremities, no focal motor deficits and no sensory deficits noted Sensorium / Orientation: awake and alert Speech: speech normal Psych affect normal Assessment & Plan Assessment/Plan (1) Alcohol use disorder: PLAN: Plan 1. Alcohol use disorder with withdrawal-patient will continue on her present medications and be reevaluated tomorrow #2 chronic depression-patient is on Lexapro #3 chronic anxiety-patient is on BuSpar #4 history of opiate use disorder-patient is currently on Subutex as an outpatient Total clinical time spent by myself addressing the patient's medical issues, reviewing all of her data, and collaborating with patient's care team: 35 minutes Charges/Coding Visit Charges Inpatient E&M: 77867 Subs Hosp L2
--- NOTE | 2025-05-14 18:27 | NURSING ---
Still no BM. This RN gave prune juice warmed with some butter.
[2025-05-14 20:00] VITALS: BP 119/71; PULSE 61; RESP 16; TEMP 36.8; O2SAT 95
[2025-05-15 06:00] VITALS: BP 138/87; PULSE 59; RESP 16; TEMP 36.7; O2SAT 95
[2025-05-15] MEDS: Phenobarbital 32.4 MG Tablet PO ×2 (06:20→11:58)
[2025-05-15] MEDS: Thiamine Hydrochloride 100 MG Tablet PO (07:48)
[2025-05-15] MEDS: busPIRone 5 MG Tablet 10 MG PO (07:48)
[2025-05-15] MEDS: Folic Acid 1 MG Tablet PO (07:49)
[2025-05-15] MEDS: Escitalopram Oxalate 20 MG Tablet PO (07:49)
[2025-05-15] MEDS: Enoxaparin 40 MG/0.4 ML Syringe SC (07:49)
[2025-05-15 08:39] VITALS: BP 134/81; PULSE 57; RESP 16; TEMP 36.6; O2SAT 92
[2025-05-15] MEDS: BUPRENORPHINE SL (09:48)
[2025-05-15] MEDS: NALOXONE SL (09:48)
[2025-05-15 10:58] VITALS: BP 112/85; PULSE 65; RESP 16; TEMP 37; O2SAT 95
--- NOTE | 2025-05-15 11:36 | DCINST_ITS ---
Discharge Instructions Diet Discharge Diet: No restrictions DC O2, CPAP, BIPAP needs Home O2 Discharge instructions: No Dressing / Incision Discharge Activity: Return to Normal Activity Weight Bearing Status: Full weight bearing Follow Up Care Test Results: Test results from this visit will be discussed in further detail at your follow- up appointment, if applicable. Discharge Plan Admission Admit Date/Time: 05/11/25 18:34 Primary Reason for Your Visit: Alcohol detox Attending Provider: Pepe Card Primary Care Provider: Earnest Rodriguez Consulting Providers: Marck David; Kayli Slater Discharge Orders/Prescriptions Prescriptions: Continued clonidine HCl 0.1 mg tablet 0.1 mg PO BID PRN (Reason: anxiety) Qty: 60 1RF escitalopram oxalate [Lexapro] 20 mg tablet 20 mg PO DAILY 30 Days Qty: 30 2RF buprenorphine-naloxone 8-2 mg film 1 ea sublingual BID buspirone 10 mg tablet 10 mg PO BID 30 Days Qty: 60 2RF Rx Instructions: 1 po bid Referrals / Follow Up: Earnest Rodriguez MD [Primary Care Provider] - See Referral Note (At next scheduled visit) Disposition Disposition (needs filled in before D/C Order can be placed): Home, Self Care
--- NOTE | 2025-05-15 11:42 | PCM.DC.SUM ---
Providers Date of Admission: 05/11/25 Date of Discharge: 05/15/25 Primary Care Physician: Dr. Earnest Rodriguez MD Reason For Visit: ALCOHOL DETOX Diagnosis Discharge Diagnosis (1) Alcohol use disorder: Status: Acute Code(s): F10.90 - Alcohol use, unspecified, uncomplicated Plan 1. Alcohol use disorder with withdrawal-patient will continue on her present medications and be reevaluated tomorrow #2 chronic depression-patient is on Lexapro #3 chronic anxiety-patient is on BuSpar #4 history of opiate use disorder-patient is currently on Subutex as an outpatient Total clinical time spent by myself addressing the patient's medical issues, reviewing all of her data, and collaborating with patient's care team: 35 minutes Medications at Discharge Home Medications buprenorphine 8 mg-naloxone 2 mg sublingual film 1 ea sublingual BID 07/13/24 clonidine HCl 0.1 mg tablet 0.1 mg PO BID PRN anxiety #60 tabs 12/02/24 escitalopram oxalate 20 mg tablet (Lexapro) 20 mg PO DAILY 30 days #30 tabs 12/02/24 buspirone 10 mg tablet 10 mg PO BID 30 days #60 tabs 01/06/25 Hospital Course Operations None Procedures None Summary of Care Provided Minutes Spent on Discharge: 31 Hospital Course: 59-year-old white female was seen in the emergency room at [facility] requesting services for alcohol use disorder. Workup in the emergency room included a CBC which was unremarkable, patient's chemistry profile was unremarkable, patient's ethyl alcohol level was 72, talk screen was positive for buprenorphine. Patient was admitted to [place] [address], orders were entered using the alcohol detox order set, patient had minimal symptoms during her hospitalization there was no evidence of DTs during her hospitalization. Patient was seen by addiction social work therapist, she voiced the intent of following up online with outpatient alcohol detox services. On 05/15/2025, patient was seen and examined: On examination she appeared in good health and spirits, she does not appear to be in any distress. Vital signs as documented. Skin warm and dry and without overt rashes. Neck without JVD, thyroid appears normal, trachea is midline, neck is supple. Lungs clear, normal air movement was noted. Heart exam notable for regular rhythm, normal sounds and absence of murmurs, rubs or gallops. Abdomen unremarkable and without evidence of organomegaly, masses, or abdominal aortic enlargement, bowel sounds are present in all 4 quadrants, no abdominal tenderness was noted. Extremities nonedematous, no cyanosis was noted, no clubbing was noted. Neuro: Cranial nerves II through XII are grossly intact, no focal motor deficits were noted, sensation to light touch and pinprick is intact, motor exam 5/5 throughout. Psych: Patient is alert and oriented x3, she does not appear anxious or depressed, she does not appear agitated. Patient was discharged to home in stable condition on 05/15/2025. Weight / BMI Weight Weight: 83.2 kg Body Mass Index (BMI) 31.4 ABG / Lab / Microbiology Data 05/12/25 05:40 05/12/25 05:40 Microbiology: Microbiology 05/12/25 14:05 Urine, Clean Catch Urine Culture - Final Mixed Gram Positive Organisms D/C Instructions Discharge Diet: No restrictions Weight Bearing Status: Full weight bearing DC O2, CPAP, BIPAP Needs Home O2 Discharge instructions: No Meaningful Use Info Meaningful Use Meaningful Use Diagnoses (Choose all that apply): None applicable Ischemic Stroke Statin Dosing Therapy Reference: STATIN DOSE THERAPY REFERENCE: * Patients > 75 years receive moderate or high dose statin therapy. * Patients 75 years or YOUNGER should receive HIGH intensity statin dose unless contraindicated. You will be required to document reason for non-treatment if statin daily dose does not meet guidelines. HIGH DOSE STATIN THERAPY DAILY Atorvastatin > than or = to 40 mg Rosuvastatin > than or = to 20 mg Amlodipine + Atorvastatin > than or = to 2.5/40 mg Ezetimibe + Simvastatin 10/80 mg Simvastatin 80mg Discharge Plan Admission Admit Date/Time: 05/11/25 18:34 Primary Reason for Your Visit: Alcohol detox Attending Provider: Pepe Card Primary Care Provider: Earnest Rodriguez Consulting Providers: Marck David; Kayli Slater Discharge Orders/Prescriptions Prescriptions: Continued clonidine HCl 0.1 mg tablet 0.1 mg PO BID PRN (Reason: anxiety) Qty: 60 1RF escitalopram oxalate [Lexapro] 20 mg tablet 20 mg PO DAILY 30 Days Qty: 30 2RF buprenorphine-naloxone 8-2 mg film 1 ea sublingual BID buspirone 10 mg tablet 10 mg PO BID 30 Days Qty: 60 2RF Rx Instructions: 1 po bid Referrals / Follow Up: Earnest Rodriguez MD [Primary Care Provider] - See Referral Note (At next scheduled visit) Disposition Disposition (needs filled in before D/C Order can be placed): Home, Self Care Charges/Coding Visit Charges Inpatient E&M: 63222 Disch Hosp >30min
--- NOTE | 2025-05-15 12:01 | PHA.DC.MR.R ---
Pharmacy [place] Med Reconciliation Pharmacy Service has performed discharge medication reconciliation for this patient. The patient's discharge medication list was reviewed for discrepancies and discrepancies were resolved. Medications at Discharge Home Medications buprenorphine 8 mg-naloxone 2 mg sublingual film 1 ea sublingual BID 07/13/24 clonidine HCl 0.1 mg tablet 0.1 mg PO BID PRN anxiety #60 tabs 12/02/24 escitalopram oxalate 20 mg tablet (Lexapro) 20 mg PO DAILY 30 days #30 tabs 12/02/24 buspirone 10 mg tablet 10 mg PO BID 30 days #60 tabs 01/06/25
== END 2025-05-15 14:55 | disposition home or self-care (01) | DRG 897 ==
LOC: ED 16:28 → MS3 20:36
PROVIDERS: Internal Medicine; Admitting Provider Hospitalist; Emergency Provider Surgery; PCP Family Medicine; Referring Provider Hospitalist; Visit Provider Internal Medicine
DX: F10.939 Alcohol use, unspecified with withdrawal, unspecified (principal); E66.811 Obesity, class 1; I10 Essential (primary) hypertension; F32.A Depression, unspecified; F17.210 Nicotine dependence, cigarettes, uncomplicated; Z68.32 Body mass index [BMI] 32.0-32.9, adult; Z90.710 Acquired absence of both cervix and uterus; F43.10 Post-traumatic stress disorder, unspecified; F41.1 Generalized anxiety disorder
CPT/HCPCS: 36415; 80048; 80053; 80307; 81001; 82077; 83735; 85025; 85027; 87086; 87088; 99285; A4216

== ENCOUNTER 2025-07-21 14:08 | Inpatient (IN) | payer MEDICARE, MEDICAID, SELFPAY ==
[2025-07-21] VITALS (7 sets, daily range): BP systolic 101–143; BP diastolic 63–103; PULSE 64–96; RESP 16–22; TEMP 35.7–37; O2SAT 92–98; BMI 32.3
--- NOTE | 2025-07-21 14:48 | EKG12_ITS ---
Test Reason : DETOX Blood Pressure : */* mmHG Vent. Rate : 79 BPM Atrial Rate : 79 BPM P-R Int : 170 ms QRS Dur : 96 ms QT Int : 356 ms P-R-T Axes : 61 5 81 degrees QTcB Int : 408 ms Normal sinus rhythm Possible Left atrial enlargement Nonspecific T wave abnormality Abnormal ECG Confirmed by David Tse ([id number]), editorial assistant CHELA DIAZ ([id number]) on 07/25/2025 9:58:18 AM Referred By: Confirmed By: David Tse
--- NOTE | 2025-07-21 14:50 | EX.ED.SAOD ---
HPI History of Present Illness Chief Complaint: Substance Abuse Narrative Narrative: Patient is a 60-year-old female presenting the emergency department for alcohol detox. Patient has a past medical history of drug abuse on Suboxone as well as alcohol abuse. States that her last drink was about 4 ounces at noon today. She reports that she drinks about 2 bottles of premixed jenny mix a day. And relapsed about 8 weeks ago. She states before this she was admitted for alcohol detox and about April. On review was May 11. She endorses some anxiousness and tremulousness. Endorses marijuana use as well. Denies any other drug use. Denies any history of alcohol withdrawal seizures. Denies any chest pain, shortness of breath, abdominal pain, nausea, vomiting, diarrhea. Denies any hallucinations. [facility] Medical History Alcohol use disorder Desire for detoxification Alcohol use disorder Substance abuse Depression Kidney stones Hypertension Generalized anxiety disorder PTSD (post-traumatic stress disorder) Major depressive disorder, recurrent severe without psychotic features Tobacco use Alcohol abuse with physiological dependence Wears dentures Wears glasses Post-menopausal Bladder disease Hearing loss, left Hearing loss, right Osteoporosis Smoker Migraines Anxiety Hepatitis Irregular heart beat Drug abuse Duodenitis Home Medications ?Medication ?Instructions ?Recorded ?Last Taken ?Type buprenorphine 8 mg-naloxone 2 mg 1 ea sublingual BID 07/13/24 05/11/25 History sublingual film clonidine HCl 0.1 mg tablet 0.1 mg PO BID PRN anxiety #60 tabs 12/02/24 Unknown Rx escitalopram oxalate 20 mg tablet 20 mg PO DAILY 30 days #30 tabs 12/02/24 05/11/25 Rx (Lexapro) buspirone 10 mg tablet 10 mg PO BID 30 days #60 tabs 01/06/25 Unknown Rx Allergy/AdvReac Type Severity Reaction Status Date / Time No Known Allergies Allergy Verified 07/21/25 14:09 Family History Mother Breast cancer Heart disease Hypertension Diabetes Father Cancer pt is unsure what kind of cancer Heart disease Hypertension Diabetes Sister Breast cancer Sister Ovarian cancer Surgical History S/P vaginal hysterectomy Hx of hand surgery History of cataract surgery History of tubal ligation History of umbilical hernia repair Social History adopted: No household members: none number of children: 6 current occupational status: unemployed pets and animals: Yes pets and animals: cat(s) sexually active: No Smoking Status: Heavy Smoker (>10/day) alcohol intake: former details: pt sober since 2020 caffeine: Yes seatbelt use: always do you feel safe at home: Yes ROS ROS ED ROS Narrative see HPI EXAM Physical Exam Narrative Exam Narrative: Vital signs: Reviewed General: Alert and oriented. No acute distress HEENT: Head is normocephalic and atraumatic, sinuses nontender, pupils equal round and reactive. Nares are patent. Oropharynx and throat exams normal. Neck: Supple without lymphadenopathy nontender Cardiovascular: Regular rate and rhythm, no murmurs. No rubs or gallops. Normal S1 and S2 Respiratory: Clear to auscultation bilaterally. No wheezes, rales, rhonchi Abdominal: Soft and nontender. Normal bowel sounds. No guarding or rebound. Nonsurgical abdomen Extremities: No tenderness. No bruising. Normal range of motion. Normal sensation. Skin: No rash or redness. Neurological: Cranial nerves II through XII are grossly intact. Normal strength and sensation. Normal cerebellar function The rest of the physical exam is unremarkable Const Vital Signs: 07/21/25 14:09 07/21/25 14:09 Temperature 96.2 F L 98.6 F Temperature Source Temporal Oral Pulse Rate 96 87 Respiratory Rate 18 16 Blood Pressure 136/103 H 141/78 H Blood Pressure Mean 114 99 Blood Pressure Source Monitor Blood Pressure Location Right Arm Pulse Ox 96 98 Oxygen Delivery Method Room Air Room Air MDM MDM MDM Narrative Medical decision making narrative: Patient is a 60-year-old female presenting emergency department for alcohol detox. Patient was seen and examined. Vitals are stable. Resting bed comfortably no acute distress. She has no tachycardia. Last drink was about 3 hours ago. No history of alcohol withdrawal seizures. No evidence of alcohol withdrawal on exam. Will obtain baseline labs given alcohol abuse history and baseline for admission. Fluid bolus ordered. CIWA protocol ordered. CBC with no leukocytosis and hemoglobin of 15.2. CMP with mildly elevated alk phos of 118 otherwise no significant abnormalities. Magnesium within normal limits. Lipase within normal limits. Urinalysis with no evidence of infection. Urine drug screen positive for buprenorphine consistent with her Suboxone use. Alcohol level is negative. Patient reevaluated. Continuing to show no evidence of withdrawal. Patient still wants to be admitted for alcohol detox, spoke to Dr. Phoenix for admission. Clinical impression: alcohol abuse detox History & Record Review Discussion w/independent historian: Patient Additional record(s) reviewed:: Prior ED visit Lab Data Attestation: I reviewed the patient's lab results. Labs: Laboratory Results - last 24 hr 07/21/25 07/21/25 14:40 14:42 WBC 7.7 RBC 4.68 Hgb 15.2 H Hct 44.6 MCV 95.3 MCH 32.5 H MCHC 34.1 RDW Std Deviation 48.7 H RDW Coeff of Mamta 13.9 Plt Count TNP MPV TNP Immature Gran % (Auto) 0.400 Neut % (Auto) 58.7 Lymph % (Auto) 29.2 [place] % (Auto) 6.7 Eos % (Auto) 4.2 Baso % (Auto) 0.8 Absolute Neuts (auto) 4.5 Absolute Lymphs (auto) 2.24 Nucleated RBC % 0 Differential Comment SCANNED Platelet Estimate ADEQUATE Sodium 139 Potassium 3.8 Chloride 102 Carbon Dioxide 24.8 Anion Gap 12 BUN 12 Creatinine 0.80 Estim Creat Clear Calc 79.12 Est GFR (MDRD) Non-Af 85 BUN/Creatinine Ratio 14.9 Glucose 110 H Calcium 9.6 Magnesium 1.9 Total Bilirubin 0.42 AST 16 ALT 10 Alkaline Phosphatase 118 H Total Protein 6.5 Albumin 4.1 Globulin 2.4 Albumin/Globulin Ratio 1.7 Lipase 23 Urine Color Straw Urine Clarity Cloudy Urine pH 7.0 Ur Specific [place] 1.010 Urine Protein 15 H Urine Glucose (UA) Normal Urine Ketones Negative Urine Occult Blood 10 H Urine Nitrite Negative Urine Bilirubin Negative Urine Urobilinogen 1 H Ur Leukocyte Esterase 500 H Urine RBC 0-5 SEEN Urine WBC 0-5 SEEN Ur Squamous Epith Cells 0-5 SEEN Amorphous Sediment 3+ Urine Bacteria 1+ Urine Mucus 0 SEEN Urine Opiates Screen NEGATIVE U Buprenorphine Qual PRESUMPTIVE POSITIVE Ur Oxycodone Screen NEGATIVE Urine Methadone Screen NEGATIVE Urine Fentanyl Screen NEGATIVE Ur Barbiturates Screen NEGATIVE Ur Phencyclidine Scrn NEGATIVE Ur Amphetamines Screen NEGATIVE U Benzodiazepines Scrn NEGATIVE Urine Cocaine Screen NEGATIVE U Cannabinoids Screen NEGATIVE Ethyl Alcohol < 10.1 Discharge Plan Triage Chief Complaint: Substance Abuse ED Provider: Thalia Mckeon Dx/Rx/DC Orders Prescriptions: No Action clonidine HCl 0.1 mg tablet 0.1 mg PO BID PRN (Reason: anxiety) Qty: 60 1RF escitalopram oxalate [Lexapro] 20 mg tablet 20 mg PO DAILY 30 Days Qty: 30 2RF buprenorphine-naloxone 8-2 mg film 1 ea sublingual BID buspirone 10 mg tablet 10 mg PO BID 30 Days Qty: 60 2RF Rx Instructions: 1 po bid Primary Care Provider: Earnest Rodriguez Referrals: Earnest Rodriguez MD [Primary Care Provider] - Print Language: Monegasque
[2025-07-21 15:02] LABS: Hematocrit 44.6 % (37-47); Hemoglobin 15.2 g/dL (12.0-15.0); Immature Granulocytes Count 0.030 X10^3/uL (0.0-0.0); Mean Corp Hgb Conc 34.1 g/dL (32-36); Mean Corpuscular Volume 95.3 fL (81-99); NRBC Flagged by Analyzer 0 % (0-5); POSITIVE COUNT YES; RBC Distribution Width CV 13.9 % (11.6-14.6); RBC Distribution Width SD 48.7 fl (35.1-43.9); Red Blood Count 4.68 M/mm3 (4.2-5.4); White Blood Count 7.7 K/mm3 (4.4-11.0)
[2025-07-21 15:06] LABS: Mucous, Urine 0 SEEN /hpf (<or=2+)
[2025-07-21] MEDS: 0.9% Normal Saline (1000mL) 1,000 ML 1000 ML IV (15:07)
[2025-07-21] MEDS: Nicotine (PBKC) 21 MG Patch TD (15:08)
[2025-07-21 15:16] LABS: Color, Urine Straw (Yellow); Glucose, Dipstick Normal (Normal); Ketone-Dipstick Negative (Negative); Leukocyte Esterase-Dipstick 500 /ul (Negative); Nitrite-Dipstick Negative (Negative); Occult Blood-Urine 10 /ul (Negative); Protein-Dipstick 15 mg/dl (Negative); Specific Gravity, Urine 1.010 (1.002-1.030); Urine Bilirubin Dipstick Negative (Negative)
[2025-07-21 15:36] LABS: AST(SGOT) 16 U/L (<=31); Alanine Aminotransfer ALT/SGPT 10 U/L (<=34); Albumin, Serum 4.1 g/dL (3.4-4.8); Alcohol, Blood (Medical)-Serum < 10.1 mg/dL (<=10.0); Alkaline Phosphatase 118 U/L (35-104); Anion Gap 12 (5-15); BUN 12 mg/dL (4-19); BUN/Creat Ratio 14.9 RATIO (10-20); Calcium,Total 9.6 mg/dL (7.6-11.0); Carbon Dioxide 24.8 mmol/L (21.0-32.0); Chloride 102 mmol/L (98-108); Estimated Creatinine Clearance 79.12 ml/min (50-250); Globulin 2.4 g/dL (2.2-4.2); Glucose 110 mg/dL (70-99); Lipase 23 U/L (13-75); Magnesium 1.9 mg/dL (1.5-2.2); Potassium 3.8 mmol/L (3.3-5.1)
[2025-07-21 15:41] LABS: Barbiturate Urine NEGATIVE (< 200 ng/mL); Benzodiazepine Urine NEGATIVE (< 200 ng/mL); PCP Urine NEGATIVE (< 25 ng/mL); THC Urine NEGATIVE (< 50 ng/mL)
[2025-07-21 15:43] LABS: Differential Indicated SCAN CRITERIA MET
[2025-07-21 15:44] LABS: Differential Comment SCANNED
[2025-07-21 15:53] LABS: Red Blood Cells-Urine 0-5 SEEN /hpf (0-5); Squamous Epithelial Cells - UA 0-5 SEEN /hpf (5-10)
--- NOTE | 2025-07-21 16:06 | HP.PCM.HOS_ITS ---
HPI - General General Date of Admission: 07/21/25 Date of Service: 07/21/25 Chief Complaint: Alcohol withdrawal symptoms HPI Narrative KAMI WATTS, is a 60 F with history of chronic alcohol use disorder, remission and relapse came to ED for acute alcohol withdrawal symptoms. Patient having symptoms of mild shakiness, headache, dizziness and nausea but no vomiting. She denies hallucination, delusion, illusion, suicidal ideation/homicidal thoughts. She easily drinks 2 bottles of premixed jenny per day and has been doing for the last 2 months. Prior to that she was admitted in May 17 for acute alcohol withdrawal and was sober for about 1 to 2 months. She started drinking alcohol with beer at age of 16 with history of relapse in remission. She also has history of IV substance use including heroin/fentanyl and had chronic hepatitis C for which completed antiviral treatment in 2015. Chronic hep C is resolved now. [facility] Medical History Alcohol use disorder Desire for detoxification Alcohol use disorder Substance abuse Depression Kidney stones Hypertension Generalized anxiety disorder PTSD (post-traumatic stress disorder) Major depressive disorder, recurrent severe without psychotic features Tobacco use Alcohol abuse with physiological dependence Wears dentures Wears glasses Post-menopausal Bladder disease Hearing loss, left Hearing loss, right Osteoporosis Smoker Migraines Anxiety Hepatitis Irregular heart beat Drug abuse Duodenitis Home Medications ?Medication ?Instructions ?Recorded ?Last Taken ?Type buprenorphine 8 mg-naloxone 2 mg 1 ea sublingual BID 0 07/13/24 05/11/25 History sublingual film clonidine HCl 0.1 mg tablet 0.1 mg PO BID PRN anxiety #60 tabs 12/02/24 Unknown Rx escitalopram oxalate 20 mg tablet 20 mg PO DAILY 30 da ys #30 tabs 12/02/24 05/11/25 Rx (Lexapro) buspirone 10 mg tablet 10 mg PO BID 30 days #60 tab s 01/06/25 Unknown Rx acamprosate 333 mg tablet,delayed 666 mg PO TID Unknown History release thiamine HCl (vitamin B1) 100 mg 100 mg PO DAILY 07/21 Unknown History tablet Allergy/AdvReac Type Severity Reaction Status Date / Time No Known Allergies Allergy Verified 07/21/25 14:09 Family History Mother Breast cancer Heart disease Hypertension Diabetes Father Cancer pt is unsure what kind of cancer Heart disease Hypertension Diabetes Sister Breast cancer Sister Ovarian cancer Surgical History S/P vaginal hysterectomy Hx of hand surgery History of cataract surgery History of tubal ligation History of umbilical hernia repair Social History adopted: No household members: none number of children: 6 current occupational status: unemployed pets and animals: Yes pets and animals: cat(s) sexually active: No Smoking Status: Heavy Smoker (>10/day) alcohol intake: former details: pt sober since 2020 caffeine: Yes seatbelt use: always do you feel safe at home: Yes ROS ROS Narrative Constitutional: Reports fatigue and weakness. No fever. HEENT: Reports systems reviewed and no addt'l complaints, except as documented Respiratory/Chest: No acute shortness of breath or respiratory distress or wheezing. CVS: No chest pain pressure or tightness. Denies CAD or other chronic heart disease Gastrointestinal: Denies coffee ground emesis, hematemesis or vomiting Genitourinary: Denies burning urination or new urinary tract symptoms Musculoskeletal: Denies acute joint pain or limited range of motion. No acute injury Neurologic: Denies seizure-like symptoms. skin: No ulcer. No rash Endocrinology: Reports systems reviewed and no addt'l complaints, except as documented Hematologic/Lymphatic: Reports systems reviewed and no addt'l complaints, except as documented Rest 14 ROS are negative except as mentioned in HPI Vital Signs Vital Signs Vital Signs: 07/21/25 14:09 07/21/25 14:09 Temperature 96.2 F L 98.6 F Temperature Source Temporal Oral Pulse Rate 96 87 Respiratory Rate 18 16 Blood Pressure 136/103 H 141/78 H Blood Pressure Mean 114 99 Blood Pressure Source Monitor Blood Pressure Location Right Arm Pulse Ox 96 98 Oxygen Delivery Method Room Air Room Air Weight Weight: 188 lb 8 oz Body Mass Index (BMI) 32.3 Physical Exam Narrative General: Alert, Oriented x3, Cooperative. BMI 32.4 kg/m?, mild obesity grade 1. HEENT: Atraumatic, PERRLA, EOMI, Normocephalic. Oral: No Gingival or Mucosal Lesions/ Ulcerations Neck: Supple, No JVD, Negative Carotid Bruits Chest wall/Lungs: Air entry diminished in bilateral lung bases. No crepitation/rhonchi Cardiovascular: Regular rate and rhythm, Normal S1,S2, No M/G/R Abdomen: Bowel Sounds Present, Soft, Non Tender, Non-Distended : No dysuria. No renal angle tenderness. No suprapubic tenderness. Extremities: No edema, Capillary Refill Less than 3 Seconds Skin: No rashes, No breakdown Musculoskeletal: No Tenderness to Palpation of Joints or Extremities Neurological: Cranial nerves II-XII grossly intact, DTR 2+/4. No acute focal neurological deficit. Psych/Mental Status: Flat affect. Anxiety Results Lab / Micro Data 07/21/25 14:40 07/21/25 14:40 Labs: Laboratory Results - last 24 hr 07/21/25 14:40: WBC 7.7, RBC 4.68, Hgb 15.2 H, Hct 44.6, MCV 95.3, MCH 32.5 H, MCHC 34.1, RDW Std Deviation 48.7 H, RDW Coeff of Mamta 13.9, Plt Count TNP, MPV TNP, Immature Gran % (Auto) 0.400, Neut % (Auto) 58.7, Lymph % (Auto) 29.2, [place] % (Auto) 6.7, Eos % (Auto) 4.2, Baso % (Auto) 0.8, Absolute Neuts (auto) 4.5, Absolute Lymphs (auto) 2.24, Nucleated RBC % 0, Differential Comment SCANNED, Platelet Estimate ADEQUATE, Sodium 139, Potassium 3.8, Chloride 102, Carbon Dioxide 24.8, Anion Gap 12, BUN 12, Creatinine 0.80, Estim Creat Clear Calc 79.12, Est GFR (MDRD) Non-Af 85, BUN/Creatinine Ratio 14.9, Glucose 110 H, Calcium 9.6, Magnesium 1.9, Total Bilirubin 0.42, AST 16, ALT 10, Alkaline Phosphatase 118 H, Total Protein 6.5, Albumin 4.1, Globulin 2.4, Albumin/Globulin Ratio 1.7, Lipase 23, Ethyl Alcohol < 10.1 07/21/25 14:42: Urine Color Straw, Urine Clarity Cloudy, Urine pH 7.0, Ur Specific [place] 1.010, Urine Protein 15 H, Urine Glucose (UA) Normal, Urine Ketones Negative, Urine Occult Blood 10 H, Urine Nitrite Negative, Urine Bilirubin Negative, Urine Urobilinogen 1 H, Ur Leukocyte Esterase 500 H, Urine RBC 0-5 SEEN, Urine WBC 0-5 SEEN, Ur Squamous Epith Cells 0-5 SEEN, Amorphous Sediment 3+, Urine Bacteria 1+, Urine Mucus 0 SEEN, Urine Opiates Screen NEGATIVE, U Buprenorphine Qual PRESUMPTIVE POSITIVE, Ur Oxycodone Screen NEGATIVE, Urine Methadone Screen NEGATIVE, Urine Fentanyl Screen NEGATIVE, Ur Barbiturates Screen NEGATIVE, Ur Phencyclidine Scrn NEGATIVE, Ur Amphetamines Screen NEGATIVE, U Benzodiazepines Scrn NEGATIVE, Urine Cocaine Screen NEGATIVE, U Cannabinoids Screen NEGATIVE Assessment & Plan Assessment/Plan (1) Alcohol withdrawal delirium, acute, hyperactive: PLAN: Plan This is a 60-year-old female being admitted for acute alcohol withdrawal syndrome. 1. Acute alcohol withdrawal syndrome with chronic alcohol use disorder, tolerance and relapse: Patient is being admitted to [facility] floor. Patient on phenobarbital based order set along with other adjunctive medications gabapentin, Bentyl, Vistaril, clonidine, Klonopin as needed for alcohol withdrawal symptom control. Patient is on thiamine and folate acid. CIWA monitor. services program manager 180 consulted. 2. Chronic anxiety and depression, PTSD: Patient denies suicidal ideations or attempt. Patient on multiple antianxiety medications as mentioned above 3. Past history of chronic substance use/opioid in remission: 4. Chronic hepatitis C: Was treated in , completed antiviral treatment. Resolved/cured. 5. Chronic smoker/nicotine use disorder: Patient smokes cigarettes, about 10 cigarettes/day. On nicotine patch. 6. Obesity grade 1: BMI 32.4 kg/m?. Weight loss counseling done. School Services Officer consult. 7. DVT prophylaxis: Moderate risk. Lovenox 40 Mg subcu daily. Living will/advanced directive/end of life care: Patient does not have living will or advanced directive. She does not have a power of band aid machine operator for health. Next of kin is her cousin, Lucero. After discussion of benefits/risks procedures involved with full code, DNR CC arrest and DNR CC, the patient opted for full code. Patient does want artificial life support including intubation, tube feed, ventilator and/chest compression, central venous catheter, vasopressor and DC shock if needed Total time spent in [id number] encounter in discussion of advanced directive 17 minutes. Charges/Coding Visit Charges Inpatient E&M: 65546 Init Hosp L3 Procedures Hospitalists Procedures: 46321 Advncd Care Plan 30 Min
[2025-07-21 18:25] LABS: Prothrombin Time (Protime)PT. 14.2 SECONDS (11.7-14.9)
[2025-07-21 18:26] LABS: Partial Thromboplast Time 32.6 Seconds (24.1-36.2)
[2025-07-21] MEDS: Lactated Ringers 1,000 ML 125 ML IV (19:03)
[2025-07-21] MEDS: SUBOXONE PO (20:48)
--- NOTE | 2025-07-21 20:56 | NURSING ---
Patient requested two suboxone films. I am a dose behind. This RN said I could only give the ordered one film. Patient persisted that she wanted two films. This RN said it doesn't work that way. Patient said, It does work that way! Nurse said, I can give you one. Or you can leave and take what you want. Patient said, I am going to report you. You can get out of my room now.
[2025-07-22 02:52] VITALS: BP 124/78; PULSE 61; RESP 16; TEMP 36.7; O2SAT 94
[2025-07-22] MEDS: 0.9% Saline Lock 10 ML Syringe IV ×2 (02:58→22:46)
[2025-07-22 06:34] VITALS: BP 135/84; PULSE 68; RESP 14; TEMP 36.8; O2SAT 97
[2025-07-22] MEDS: SUBOXONE PO ×3 (06:40→17:55)
[2025-07-22 07:40] VITALS: BP 113/83; PULSE 63; RESP 16; TEMP 36.9; O2SAT 96
[2025-07-22] MEDS: Nicotine (PBKC) 21 MG Patch TD (07:47)
[2025-07-22] MEDS: Thiamine Hydrochloride 100 MG Tablet PO (07:47)
--- NOTE | 2025-07-22 08:19 | PCM.PN.HOSP ---
Reason for Visit Chief Complaint: Alcohol withdrawal symptoms Subjective Subjective Feeling better. Patient has plans to follow-up with her Subutex doctor to do IOP. She will not be following up with 180. Objective Data Objective Data Vital Signs: Vital Signs Temp Pulse Resp BP Pulse Ox O2 Del Method 36.9 C 63 16 113/83 H 96 Room Air 07/22/25 07:40 07/22/25 07:40 07/22/25 07:40 07/22/25 07:40 07/22/25 07:40 07/22/25 07:40 Oxygen Delivery Method Room Air Weight: 85.502 kg Body Mass Index (BMI) 32.3 Intake & Output: Intake and Output for Last 24 Hours 07/20/25 07/21/25 07/22/25 23:59 23:59 23:59 Intake Total 1800 / 1800 1285.42 / 1285.42 Balance 1800 / 1800 1285.42 / 1285.42 Lab / Micro Data 07/21/25 14:40 07/21/25 14:40 Labs: Laboratory Results - last 24 hr 07/21/25 14:40: WBC 7.7, RBC 4.68, Hgb 15.2 H, Hct 44.6, MCV 95.3, MCH 32.5 H, MCHC 34.1, RDW Std Deviation 48.7 H, RDW Coeff of Mamta 13.9, Plt Count TNP, MPV TNP, Immature Gran % (Auto) 0.400, Neut % (Auto) 58.7, Lymph % (Auto) 29.2, [place] % (Auto) 6.7, Eos % (Auto) 4.2, Baso % (Auto) 0.8, Absolute Neuts (auto) 4.5, Absolute Lymphs (auto) 2.24, Nucleated RBC % 0, Differential Comment SCANNED, Platelet Estimate ADEQUATE, Sodium 139, Potassium 3.8, Chloride 102, Carbon Dioxide 24.8, Anion Gap 12, BUN 12, Creatinine 0.80, Estim Creat Clear Calc 79.12, Est GFR (MDRD) Non-Af 85, BUN/Creatinine Ratio 14.9, Glucose 110 H, Calcium 9.6, Magnesium 1.9, Total Bilirubin 0.42, AST 16, ALT 10, Alkaline Phosphatase 118 H, Total Protein 6.5, Albumin 4.1, Globulin 2.4, Albumin/Globulin Ratio 1.7, Lipase 23, Ethyl Alcohol < 10.1 07/21/25 14:42: Urine Color Straw, Urine Clarity Cloudy, Urine pH 7.0, Ur Specific [place] 1.010, Urine Protein 15 H, Urine Glucose (UA) Normal, Urine Ketones Negative, Urine Occult Blood 10 H, Urine Nitrite Negative, Urine Bilirubin Negative, Urine Urobilinogen 1 H, Ur Leukocyte Esterase 500 H, Urine RBC 0-5 SEEN, Urine WBC 0-5 SEEN, Ur Squamous Epith Cells 0-5 SEEN, Amorphous Sediment 3+, Urine Bacteria 1+, Urine Mucus 0 SEEN, Urine Opiates Screen NEGATIVE, U Buprenorphine Qual PRESUMPTIVE POSITIVE, Ur Oxycodone Screen NEGATIVE, Urine Methadone Screen NEGATIVE, Urine Fentanyl Screen NEGATIVE, Ur Barbiturates Screen NEGATIVE, Ur Phencyclidine Scrn NEGATIVE, Ur Amphetamines Screen NEGATIVE, U Benzodiazepines Scrn NEGATIVE, Urine Cocaine Screen NEGATIVE, U Cannabinoids Screen NEGATIVE 07/21/25 17:33: PT 14.2, INR 1.1, APTT 32.6 Physical Exam Const alert and no apparent distress Constitutional Narrative: Lying in bed. Nontoxic. Pleasant. HEENT head/scalp atraumatic and moist oral mucous membranes Neuro Sensorium / Orientation: awake and alert Psych affect normal Assessment & Plan Assessment/Plan (1) Alcohol abuse: PLAN: On phenobarb taper. Supportive medications to help with somatic complaints. Patient to follow-up with her physician that prescribes her Subutex. PLAN: Plan Chronic medical conditions chronic anxiety and depression, PTSD: Patient denies suicidal ideations or attempt. Patient on multiple antianxiety medications as mentioned above Past history of chronic substance use/opioid in remission: Chronic hepatitis C: Was treated in , completed antiviral treatment. Resolved/cured. Chronic smoker/nicotine use disorder: Patient smokes cigarettes, about 10 cigarettes/day. On nicotine patch. Obesity grade 1: BMI 32.4 kg/m?. Weight loss counseling done. Garment Supervisor consult. DVT prophylaxis: Moderate risk. Lovenox 40 Mg subcu daily. Charges/Coding Visit Charges Inpatient E&M: 53477 [facility] Hosp L1
--- NOTE | 2025-07-22 12:40 | ADDICTION ---
Pt was met with for RAMP assessment and to complete the AUDIT, DUDIT, ASAM, MSE, DC Plan, and CHETAN's. Pt was engaged in psychoeducation on her high risk of relapse given her extensive hx of ABHIJEET and number of detox admissions over the past few years. Pt was offered a variety of options for tx and f/u care, but pt declined. Pt states she does not ever want to go back to [facility] d/t being treated poorly by Dr. Manning and staff. She declined a referral for [facility] d/t previous issues with her insurance. She declined any residential level of care. She was offered a referral to [facility] and Pt agreed to the referral and f/u care plan. Pt states that she plans to f/u w/[facility] the day of her DC from [facility] for IOP. Pt to also f/u with her MAT and MH tx provider [facility]
[2025-07-22 14:20] VITALS: BP 114/67; PULSE 61; RESP 16; TEMP 36.9; O2SAT 94
[2025-07-22 22:40] VITALS: BP 120/70; PULSE 68; RESP 16; TEMP 36.6; O2SAT 92
[2025-07-22] MEDS: hydrOXYzine PAM 25 MG Capsule 50 MG PO (22:44)
[2025-07-23] MEDS: hydrOXYzine PAM 25 MG Capsule 50 MG PO (02:38)
[2025-07-23 06:03] VITALS: BP 137/74; PULSE 58; RESP 16; TEMP 36.1; O2SAT 94
[2025-07-23] MEDS: SUBOXONE PO ×3 (06:05→18:11)
[2025-07-23] MEDS: Nicotine (PBKC) 21 MG Patch TD (07:53)
[2025-07-23] MEDS: Thiamine Hydrochloride 100 MG Tablet PO (07:53)
--- NOTE | 2025-07-23 08:09 | PN.HOSP_ITS ---
Reason for Visit Chief Complaint: Alcohol withdrawal symptoms Subjective Subjective Feeling ok. Still with tremulousness. Objective Data Objective Data Vital Signs: Vital Signs Temp Pulse Resp BP Pulse Ox O2 Del Method 36.1 C L 58 L 16 137/74 H 94 Room Air 07/23/25 06:03 07/23/25 06:03 07/23/25 06:03 07/23/25 06:03 07/23/25 06:03 07/23/25 06:03 Oxygen Delivery Method Room Air Weight: 85.502 kg Body Mass Index (BMI) 32.3 Intake & Output: Intake and Output for Last 24 Hours 07/21/25 07/22/25 07/23/25 23:59 23:59 23:59 Intake Total 1800 / 1800 1285.42 / 1435.42 450 / 450 Balance 1800 / 1800 1285.42 / 1435.42 450 / 450 Lab / Micro Data 07/21/25 14:40 07/21/25 14:40 Physical Exam Const alert and no apparent distress HEENT head/scalp atraumatic and moist oral mucous membranes Resp normal respiratory effort and no retractions Neuro Neuro Narrative: Slight tremulousness in the upper extremities bilaterally Assessment & Plan Assessment/Plan (1) Alcohol abuse: PLAN: On phenobarb taper. Supportive medications to help with somatic complaints. Patient to follow-up with [facility]. Patient will do the IOP there. PLAN: Plan Chronic medical conditions * chronic anxiety and depression, PTSD: Patient denies suicidal ideations or attempt. Patient on multiple antianxiety medications as mentioned above * Past history of chronic substance use/opioid in remission: * Chronic hepatitis C: Was treated in , completed antiviral treatment. Resolved/cured. * Chronic smoker/nicotine use disorder: Patient smokes cigarettes, about 10 cigarettes/day. On nicotine patch. * Obesity grade 1: BMI 32.4 kg/m?. Weight loss counseling done. Vendor Relationship Manager consult. DVT prophylaxis: Moderate risk. Lovenox 40 Mg subcu daily. Disposition: Monitor the patient 1 more night and if remains stable then patient will be discharged and then follow-up with [facility] for IOP Charges/Coding Visit Charges Inpatient E&M: 23305 [facility] [[email or web address] Hosp L1
[2025-07-23 10:09] VITALS: BP 124/87; PULSE 67; RESP 18; TEMP 36.4; O2SAT 93
[2025-07-23 14:13] VITALS: BP 108/67; PULSE 65; RESP 16; TEMP 36.3; O2SAT 95
[2025-07-23 17:14] VITALS: BP 124/81; PULSE 71; RESP 16; TEMP 36.8; O2SAT 95
[2025-07-23 20:07] VITALS: BP 130/81; PULSE 62; RESP 16; TEMP 36.7; O2SAT 92
[2025-07-23] MEDS: Nicotine 2mg Gum (PBKC) 2 MG GUM PO (22:05)
[2025-07-24 02:39] VITALS: BP 138/91; PULSE 64; RESP 16; TEMP 36.7; O2SAT 92
[2025-07-24 02:43] VITALS: BP 138/91; PULSE 64; RESP 16; TEMP 36.7; O2SAT 92
[2025-07-24] MEDS: SUBOXONE PO ×2 (06:34→12:07)
[2025-07-24 08:10] VITALS: BP 148/95; PULSE 68; RESP 18; TEMP 36.8; O2SAT 98
[2025-07-24] MEDS: Nicotine (PBKC) 21 MG Patch TD (08:14)
[2025-07-24] MEDS: Thiamine Hydrochloride 100 MG Tablet PO (08:15)
--- NOTE | 2025-07-24 13:38 | DCINST_ITS ---
Discharge Instructions DC O2, CPAP, BIPAP needs Home O2 Discharge instructions: No Dressing / Incision Discharge Activity: Return to Normal Activity Weight Bearing Status: Full weight bearing Follow Up Care Test Results: Test results from this visit will be discussed in further detail at your follow- up appointment, if applicable. Discharge Plan Admission Admit Date/Time: 07/21/25 16:01 Primary Reason for Your Visit: alcohol detox Attending Provider: Pepe Card Primary Care Provider: Earnest Rodriguez Consulting Providers: Lokesh Phoenix; Narayan Magaña Instructions Additional Instructions / Restrictions: Follow-up with outpatient detox program Discharge Orders/Prescriptions Prescriptions: Continued clonidine HCl 0.1 mg tablet 0.1 mg PO BID PRN (Reason: anxiety) Qty: 60 1RF escitalopram oxalate [Lexapro] 20 mg tablet 20 mg PO DAILY 30 Days Qty: 30 2RF buprenorphine-naloxone 8-2 mg film 1 ea sublingual BID thiamine HCl (vitamin B1) 100 mg tablet 100 mg PO DAILY acamprosate 333 mg tablet,delayed release (DR/EC) 666 mg PO TID buspirone 10 mg tablet 10 mg PO BID 30 Days Qty: 60 2RF Rx Instructions: 1 po bid Referrals / Follow Up: Earnest Rodriguez MD [Primary Care Provider] - Disposition Disposition (needs filled in before D/C Order can be placed): Home, Self Care
--- NOTE | 2025-07-24 13:45 | PCM.DC.SUM ---
Providers Date of Admission: 07/21/25 Date of Discharge: 07/24/25 Primary Care Physician: Dr. Earnest Rodriguez MD Reason For Visit: CHRONIC ALCOHOL USE Diagnosis Discharge Diagnosis (1) Alcohol abuse: Status: Acute Code(s): F10.10 - Alcohol abuse, uncomplicated Plan 1. Alcohol withdrawal #2 alcohol use disorder #3 chronic anxiety Medications at Discharge Home Medications buprenorphine 8 mg-naloxone 2 mg sublingual film 1 ea sublingual BID 07/13/24 clonidine HCl 0.1 mg tablet 0.1 mg PO BID PRN anxiety #60 tabs 12/02/24 escitalopram oxalate 20 mg tablet (Lexapro) 20 mg PO DAILY 30 days #30 tabs 12/02/24 buspirone 10 mg tablet 10 mg PO BID 30 days #60 tabs 01/06/25 acamprosate 333 mg tablet,delayed release 666 mg PO TID 07/21/25 thiamine HCl (vitamin B1) 100 mg tablet 100 mg PO DAILY 07/21/25 Hospital Course Operations None Procedures None Summary of Care Provided Minutes Spent on Discharge: 30 Hospital Course: This 60-year-old white female was seen in the emergency room at [facility] requesting services for alcohol use disorder and detox. Patient's tox screen was positive for buprenorphine-patient takes this chronically for opiate use disorder. Remainder of the labs were essentially unremarkable except for alkaline phosphatase of 118. Patient was admitted to [address] in the alcohol addiction order set, during her hospitalization, she had no evidence of DTs and there were no serious symptoms of alcohol withdrawal. Patient met with addiction social sciences research scientist and the patient stated she had a plan for outpatient detox treatment follow-up. On 07/24/2025, patient was seen and examined: On examination she appeared in good health and spirits, she does not appear to be in any distress. Vital signs as documented. Skin warm and dry and without overt rashes. Neck without JVD, thyroid appears normal, trachea is midline, neck is supple. Lungs clear, normal air movement was noted. Heart exam notable for regular rhythm, normal sounds and absence of murmurs, rubs or gallops. Abdomen unremarkable and without evidence of organomegaly, masses, or abdominal aortic enlargement, bowel sounds are present in all 4 quadrants, no abdominal tenderness was noted. Extremities nonedematous, no cyanosis was noted, no clubbing was noted. Neuro: Cranial nerves II through XII are grossly intact, no focal motor deficits were noted, sensation to light touch and pinprick is intact, motor exam 5/5 throughout. Psych: Patient is alert and oriented x3, she does not appear anxious or depressed, she does not appear agitated. Patient was discharged in stable condition on 07/24/2025. Weight / BMI Weight Weight: 85.502 kg Body Mass Index (BMI) 32.3 ABG / Lab / Microbiology Data 07/21/25 14:40 07/21/25 14:40 D/C Instructions Weight Bearing Status: Full weight bearing DC O2, CPAP, BIPAP Needs Home O2 Discharge instructions: No Meaningful Use Info Meaningful Use Meaningful Use Diagnoses (Choose all that apply): None applicable Discharge Plan Admission Admit Date/Time: 07/21/25 16:01 Primary Reason for Your Visit: alcohol detox Attending Provider: Pepe Card Primary Care Provider: Earnest Rodriguez Consulting Providers: Lokesh Phoenix; Narayan Magaña Instructions Additional Instructions / Restrictions: Follow-up with outpatient detox program Discharge Orders/Prescriptions Prescriptions: Continued clonidine HCl 0.1 mg tablet 0.1 mg PO BID PRN (Reason: anxiety) Qty: 60 1RF escitalopram oxalate [Lexapro] 20 mg tablet 20 mg PO DAILY 30 Days Qty: 30 2RF buprenorphine-naloxone 8-2 mg film 1 ea sublingual BID thiamine HCl (vitamin B1) 100 mg tablet 100 mg PO DAILY acamprosate 333 mg tablet,delayed release (DR/EC) 666 mg PO TID buspirone 10 mg tablet 10 mg PO BID 30 Days Qty: 60 2RF Rx Instructions: 1 po bid Referrals / Follow Up: Earnest Rodriguez MD [Primary Care Provider] - Disposition Disposition (needs filled in before D/C Order can be placed): Home, Self Care Charges/Coding Visit Charges Inpatient E&M: 35238 Disch Hosp
[2025-07-24 14:05] VITALS: BP 132/85; PULSE 64; RESP 16; TEMP 36.9; O2SAT 93
--- NOTE | 2025-07-24 14:19 | MDS.RN ---
items and meds returned to pt.
--- NOTE | 2025-07-24 14:38 | NURSING ---
Pt reported to nurse she felt safe to drive, and has about 1 mile home. Nurse checked with Dr. Stephens if she is okay to drive home, he stated to check with her if she feels safe to drive home.
== END 2025-07-24 14:35 | disposition home or self-care (01) | DRG 897 ==
LOC: ED 16:06 → MS3 16:17
PROVIDERS: Admitting Provider Internal Medicine; Emergency Provider Student in an Organized Health Care Education/Training Program; PCP Family Medicine; Visit Provider Internal Medicine
DX: F10.231 Alcohol dependence with withdrawal delirium (principal); F33.2 Major depressive disorder, recurrent severe without psychotic features; E66.811 Obesity, class 1; F17.210 Nicotine dependence, cigarettes, uncomplicated; F11.91 Opioid use, unspecified, in remission; F41.1 Generalized anxiety disorder; F43.10 Post-traumatic stress disorder, unspecified; Z86.19 Personal history of other infectious and parasitic diseases; Z79.899 Other long term (current) drug therapy; Z68.32 Body mass index [BMI] 32.0-32.9, adult
CPT/HCPCS: 80053; 80307; 81001; 82077; 83690; 83735; 85025; 85610; 85730; 93005; 99285; A4216

== ENCOUNTER 2025-11-15 16:07 | Emergency (ER) | payer MEDICARE, MEDICAID, SELFPAY ==
[2025-11-15 16:11] VITALS: BP 170/115; PULSE 93; RESP 16; TEMP 36.8; O2SAT 98; BMI 31.5
--- NOTE | 2025-11-15 16:15 | EDS_ITS ---
HPI History of Present Illness Chief Complaint: Numb/Ting PFSH PFSH Medical History Alcohol use disorder Desire for detoxification Alcohol use disorder Substance abuse Depression Kidney stones Hypertension Generalized anxiety disorder PTSD (post-traumatic stress disorder) Major depressive disorder, recurrent severe without psychotic features Tobacco use Alcohol abuse with physiological dependence Wears dentures Wears glasses Post-menopausal Bladder disease Hearing loss, left Hearing loss, right Osteoporosis Smoker Migraines Anxiety Hepatitis Irregular heart beat Drug abuse Duodenitis Home Medications ?Medication ?Instructions ?Recorded ?Last Taken ?Type buprenorphine 8 mg-naloxone 2 mg 3 film sublingual AKSAHT LY 07/13/24 11/15/25 History sublingual film escitalopram oxalate 20 mg tablet 20 mg PO DAILY 30 da ys #30 tabs 12/02/24 11/15/25 Rx (Lexapro) buspirone 10 mg tablet 10 mg PO BID 30 days #60 tab s 01/06/25 11/15/25 Rx Allergy/AdvReac Type Severity Reaction Status Date / Time No Known Allergies Allergy Verified 11/15/25 16:12 Family History Mother Breast cancer Heart disease Hypertension Diabetes Father Cancer pt is unsure what kind of cancer Heart disease Hypertension Diabetes Sister Breast cancer Sister Ovarian cancer Surgical History S/P vaginal hysterectomy Hx of hand surgery History of cataract surgery History of tubal ligation History of umbilical hernia repair Social History adopted: No household members: none number of children: 6 current occupational status: unemployed pets and animals: Yes pets and animals: cat(s) sexually active: No Smoking Status: Heavy Smoker (>10/day) alcohol intake: former details: pt sober since 2020 caffeine: Yes seatbelt use: always do you feel safe at home: Yes EXAM Physical Exam Const Vital Signs: 11/15/25 16:11 11/15/25 17:11 Temperature 98.3 F Temperature Source Oral Pulse Rate 93 67 Respiratory Rate 16 16 Blood Pressure 170/115 H 129/82 H Blood Pressure Mean 133 97 Pulse Ox 98 94 Oxygen Delivery Method Room Air Room Air MDM MDM MDM Narrative Medical decision making narrative: HISTORY OF PRESENT ILLNESS: Chief complaint: Lip tingling 60-year-old female history of tobacco abuse, obesity, hypertension, alcohol abuse, substance abuse, PTSD, anxiety and depression presents with lip tingling. Last known well was 8:30 PM on 11/14/2025. Patient states she thought she had a bug bite in the right upper lip. She notes some itchiness and some tingling since then. Denies falls or head trauma. Denies any other focal numbness weakness or loss of sensation REVIEW OF SYSTEMS: Pertinent positives: Facial numbness Pertinent negatives: Headache, loss of vision otherwise as per HPI PHYSICAL EXAM: Nursing triage notes reviewed, Vital signs reviewed Constitutional: please see [facility] HENT: MMM Eyes: Pupils equal round and reactive to light, Extraocular muscles intact Neck: No stridor, no JVD, full neck ROM Lungs: Clear to auscultation, No wheezing or rales. No increased work of breathing, no conversational dyspnea, no accessory muscle use, no nasal flaring. No respiratory distress noted Heart: Regular rate and rhythm, No murmurs, No rubs and No gallops, 2+ distal pulses (radial, femoral, posterior tibial) in all extremities Abdomen: Soft, there is no tenderness, rigidity, rebound or guarding, no obvious peritoneal signs, no palpable pulsatile abdominal masses, no auscultated abdominal bruit : No CVAT Extremities: No edema Neuro: Alert and oriented x3, neuro exam at baseline, cranial nerves II through XII are intact. No pain with extraocular muscle movement. There is negative test of skew. 5 of 5 strength in upper and lower extremities in flexion extension. Intact sensation to light touch in upper and lower extremity dermatomes. No truncal or extremity ataxia. No dysdiadochokinesia. Normal gait. 2+ reflexes in upper and lower extremities. No meningeal signs. Negative Babinski. NIH of 0. Skin: No rash or lesions noted MEDICAL DECISION MAKING: Chief Complaint: please see HPI External records reviewed: Reviewed prior imaging studies: Reviewed MRI of the brain from 2014 which showed no acute infarct or acute intracranial hemorrhage. No suspicious intracranial masses. Factors affecting care: As per HPI Social determinants of health: none History obtained from others: none Consults: none [facility] Narrative: Patient was initially hypertensive with blood pressure 170/115 otherwise afebrile and nontoxic-appearing. Initial neurologic exam intact. NIH 0 I considered the following differential diagnosis: ICH, CVA, peripheral neuropathy, focal seizure, Munir's paralysis Given patient's elevated blood pressure, age, risk factors such as hypertension I obtaineda broad lab and imaging work up to further determine if the patient was suffering from a life-threatening etiology. ALL IMAGES (IF OBTAINED) HAVE BEEN PERSONALLY REVIEWED AND INTERPRETED BY MYSELF. EKG with normal sinus rhythm rate of 67, normal axis, no intervals, no STEMI I have personally reviewed the patient's chest x-ray. Chest x-ray is unremarkable for pulmonary edema, pneumothorax, pneumonia or focal cardiopulmonary abnormality. CT scan of the brain was negative for ICH or mass CBC without leukocytosis, severe anemia, no thrombocytopenia. BMP without evidence of significant electrolyte abnormalities, no anion gap, no acute kidney injury. On reevaluation patient's blood pressure improved to 129/82 without interve ntion. Repeat neurologic remained intact. No clear life-limiting etiology could be ascertained. Suspect peripheral neuropathy versus local irritation from after mentioned bug bite. Either way she does not meet criteria for admission at this time. No need for transfer. She is not a candidate for TNK or thrombectomy. The patient and/or family, caregivers express understanding. The patient and/or family, caregivers agrees with the plan. Shared decision making: I will have a discussion with the patient and or visitors regarding risk/benefits of further testing or admission. They will be made aware of of the risk/benefits inherent in this decision they will be given the opportunity to voice understanding. Total critical care time today provided was at least 0 [minutes. This excludes separately billable procedures. Critical care time (if documented) is secondary to the patient having high probability of clinically significant/life threatening deterioration in the patient's condition which required my urgent intervention. Impression: 1. Facial Paresthesias 2. History of hypertension Dispo: Discharge home This note was generated with [employer] dictation software. It may contain incorrect words, spelling, and punctuation that were not noted in review of the chart prior to signing. Lab Data Labs: Laboratory Results - last 24 hr 11/15/25 16:35 WBC 6.5 RBC 4.68 Hgb 15.2 H Hct 43.8 MCV 93.6 MCH 32.5 H MCHC 34.7 RDW Std Deviation 46.7 H RDW Coeff of Mamta 13.8 Plt Count 289 MPV 9.5 Immature Gran % (Auto) 0.300 Neut % (Auto) 47.9 Lymph % (Auto) 37.6 [place] % (Auto) 6.9 Eos % (Auto) 6.5 H Baso % (Auto) 0.8 Absolute Neuts (auto) 3.1 Absolute Lymphs (auto) 2.44 Nucleated RBC % 0 Sodium 140 Potassium 3.5 Chloride 101 Carbon Dioxide 26.1 Anion Gap 12 BUN 5 Creatinine 0.49 L Estim Creat Clear Calc 127.47 Est GFR (MDRD) Non-Af 108 BUN/Creatinine Ratio 9.6 L Glucose 106 H Calcium 8.9 Radiography Diagnostic Testing: Clinical Impression(s) from Imaging Studies Brain CT 11/15/25 16:47 IMPRESSION: No acute intracranial process. Consider MR if symptoms persist. Reading Location: [facility] Chest X-Ray 11/15/25 16:52 IMPRESSION: No acute cardiopulmonary disease. Reading Location: [facility] Discharge Plan Triage Chief Complaint: Numb/Ting ED Provider: Gómez Escamilla Dx/Rx/DC Orders Prescriptions: No Action escitalopram oxalate [Lexapro] 20 mg tablet 20 mg PO DAILY 30 Days Qty: 30 2RF buprenorphine-naloxone 8-2 mg film 3 film sublingual DAILY buspirone 10 mg tablet 10 mg PO BID 30 Days Qty: 60 2RF Rx Instructions: 1 po bid Primary Care Provider: Earnest Rodriguez Referrals: Earnest Rodriguez MD [Primary Care Provider, Family Practice] Print Language: Amharic
--- NOTE | 2025-11-15 16:15 | ED.RN ---
1609: PROVIDER JOHNATHAN NOTIFIED OF PT. SYMPTOMS.
--- NOTE | 2025-11-15 16:23 | EKG12_ITS ---
Test Reason : Blood Pressure : */* mmHG Vent. Rate : 67 BPM Atrial Rate : 67 BPM P-R Int : 164 ms QRS Dur : 94 ms QT Int : 398 ms P-R-T Axes : 76 65 80 degrees QTcB Int : 420 ms Normal sinus rhythm Normal ECG Confirmed by Michael Justin ([id number]), editor managing director ELDON DOMINIQUE ([id number]) on 11/17/2025 8:00:52 AM Referred By: Confirmed By: Michael Justin
--- OUTSIDE RECORDS SUMMARY | 2025-11-15 16:38 | XMS RPT_ITS | CCD ---
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 BLOOD SPECIMENOrdering Facility: [facility] Address: [address] [place] [address] Performed By: #### 3 024-7, 3016-3, 68453-3, LIPNF ####[facility] LABCLIA [id number] [place] [address] [place] ALT [Catalytic activity/Vol] 12 U/L Normal 7-38 [facility] Comment on above: Order Comment: Speci men Type: BLOOD SPECIMENOrdering Facility: [facility] Address: [address] [place] [address] Performed By: #### 3 024-7, 3016-3, 52044-1, LIPNF ####[facility] LABCLIA [id number] [place] [id number] [place] Anion gap [Moles/Vol] 12 mmol/L Normal 8-15 [facility] Comment on above: Order Comment: Speci men Type: BLOOD SPECIMENOrdering Facility: [facility] Address: [address] [place] [address] Performed By: #### 3 024-7, 3016-3, 64262-9, LIPNF ####[facility] LABCLIA [id number] [place] [address] [place] AST [Catalytic activity/Vol] 16 U/L Normal 13-35 [facility] Comment on above: Order Comment: Speci men Type: BLOOD SPECIMENOrdering Facility: [facility] Address: [address] [place] [address] Performed By: #### 3 024-7, 3015-3, , LIPNF ####[facility] LABCLIA [id number] [place] [address] [place] Bilirubin [Mass/Vol] 0.5 mg/dL Normal 0.2-1.3 [facility] Comment on above: Order Comment: Speci men Type: BLOOD SPECIMENOrdering Facility: [facility] Address: [address] [place] [address] Performed By: #### 3 024-7, 3015-3, , LIPNF ####[facility] LABCLIA [id number] [place] [address] [place] Calcium [Mass/Vol] 9.2 mg/dL Normal 8.5-10.2 [facility] Comment on above: Order Comment: Speci men Type: BLOOD SPECIMENOrdering Facility: [facility] Address: [address] [place] [address] Performed By: #### 3 024-7, 3015-3, , LIPNF ####[facility] LABCLIA [id number] [place] [address] [place] Chloride [Moles/Vol] 104 mmol/L Normal 98-107 [facility] Comment on above: Order Comment: Speci men Type: BLOOD SPECIMENOrdering Facility: [facility] Address: [address] [place] [address] Performed By: #### 3 024-7, 3015-3, 39017-9, LIPNF ####[facility] LABCLIA [id number] [place] [address] [place] CO2 [Moles/Vol] 24 mmol/L Normal 22-30 [facility] Comment on above: Order Comment: Speci men Type: BLOOD SPECIMENOrdering Facility: [facility] Address: [address] [place] [address] Performed By: #### 3 024-7, 3016-3, 39117-6, LIPNF ####[facility] LABCLIA [id number] [place] [address] [place] Creatinine [Mass/Vol] 0.59 mg/dL Normal 0.58-0.96 [facility] Comment on above: Order Comment: Speci men Type: BLOOD SPECIMENOrdering Facility: [facility] Address: [address] [place] [address] Performed By: #### 3 024-7, 3016-3, 03299-9, LIPNF ####[facility] LABCLIA [id number] [place] [address] [place] eGFRcr SerPlBld CKD-EPI 2020 103 mL/min/1.73m??? Normal >=60 [facility] Comment on above: Order Comment: Speci men Type: BLOOD SPECIMENOrdering Facility: [facility] Address: [address] [place] [address] Result Comment: Michelle mated Glomerular Filtration Rate [...] accurately reflect actual GFR. Performed By: #### 3 024-7, 3016-3, 86396-5, LIPNF ####[facility] LABCLIA [id number] [place] [address] [place] Glucose [Mass/Vol] 71 mg/dL Low 74-99 [facility] Comment on above: Order Comment: Speci men Type: BLOOD SPECIMENOrdering Facility: [facility] Address: [address] [place] [address] Result Comment: The [place] Diabetes Association (ADA) provides guidance for cutoff [...] Standards of Medical Care in Diabetes 2016, [place] Diabetes Association. Diabetes Care. 2016.39(Suppl 1). Performed By: #### 3 024-7, 6-3, 28748-3, LIPNF ####[facility] LABCLIA [id number] [place] [address] [place] Potassium [Moles/Vol] 4.2 mmol/L Normal 3.7-5.1 [facility] Comment on above: Order Comment: Speci men Type: BLOOD SPECIMENOrdering Facility: [facility] Address: [address] [place] [address] Performed By: #### 3 024-7, 3015-3, 67104-1, LIPNF ####[facility] LABCLIA [id number] [place] [address] [place] Protein [Mass/Vol] 6.4 g/dL Normal 6.3-8.0 [facility] Comment on above: Order Comment: Speci men Type: BLOOD SPECIMENOrdering Facility: [facility] Address: [address] [place] [address] Performed By: #### 3 024-7, 3015-3, 43027-3, LIPNF ####[facility] LABCLIA [id number] [place] [address] [place] Sodium [Moles/Vol] 140 mmol/L Normal 136-144 [facility] Comment on above: Order Comment: Speci men Type: BLOOD SPECIMENOrdering Facility: [facility] Address: [address] [place] [address] Performed By: #### 3 024-7, 3016-3, 32278-0, LIPNF ####[facility] LABIA [id number] [place] [id number] [place] Urea nitrogen [Mass/Vol] 11 mg/dL Normal 7-21 [facility] Comment on above: Order Comment: Speci men Type: BLOOD SPECIMENOrdering Facility: [facility] Address: [address] [place] [address] Performed By: #### 3 024-7, 3016-3, 20553-7, LIPNF ####[facility] LABCLIA [id number] [place] [id number] [place] ECG COMPLETEon 09-05-2025 ECG COMPLETE Ventricular Rate : 5 8 BPM Atrial Rate : 58 BPM P-R Interval : 172 ms QRS Duration : 92 ms Q-T Interval : 412 ms QTC Calculation(Bazett) : 404 ms Calculated P [place] : 55 degrees Calculated R [place] : 17 degrees Calculated T [place] : 60 degrees SINUS BRADYCARDIA OTHERWISE NORMAL ECG Confirmed by MD BARLOW QARAB ([id number]) on 09/06/2025 11:50:18 AM NAME : KAMI WATTS PID : [id number] : 1965 Gender : Female Race : ORD : [id number] Procedure Date : Sep 05 2025 11:33:09 Edit Date : Sep 06 2025 11:50:23 Diagnosis: SINUS BRADYCARDIA OTHERWISE NORMAL ECG Confirmed by MD BARLOW QARAB ([id number]) on 09/06/2025 11:50:18 AM Test Reason : R07.89 Atypical chest pain Location : 136 : [place] Overread By : MD BARLWO QARAB Edited By : MD BARLOW QARAB Referred By : , Acquired by : DEWAYNE MARIN, Normal [facility] HbA1c (Bld)on 09-05-2025 Average glucose Estimated from glycated hemoglobin (Bld) [Mass/Vol] 114 mg/dL Normal [facility] Comment on above: Order Comment: Speci men Type: BLOOD SPECIMENOrdering Facility: [facility] Address: [address] [place] [address] Result Comment: eAG: (Estimated average glucose) is a calculated value from HgbA1c and is provider relations representative of the average blood glucose level in the last 2-3 month period. Performed By: #### 5 5454-3 ####[facility] LABCLIA [id number] [place] [address] [place] HbA1c (Bld) [Mass fraction] 5.6 % Normal 4.3-5.6 [facility] Comment on above: Order Comment: Marcus fernandes Type: BLOOD SPECIMENOrdering Facility: [facility] Address: [address] [place] [address] Result Comment: Amer ican Diabetes Association guidelines indicate that patients with HgbA1c in the range 5.7-6.4% are at increased risk for development of diabetes, and intervention by lifestyle modification may be beneficial. HgbA1c greater or equal to 6.5% is considered diagnostic of diabetes. Performed By: #### 5 5454-3 ####[facility] LABCLIA [id number] [place] [address] [place] LIPID PANEL, NONFASTINGon Cholesterol [Mass/Vol] 165 mg/dL Normal <200 [facility] Comment on above: Order Comment: Marcus fernandes Type: BLOOD SPECIMENOrdering Facility: [facility] Address: [address] [place] [address] Result Comment: <200 mg/dL, Desirable 200-239 mg/dL, Borderline high >239 mg/dL, High Performed By: #### 3 024-7, 3016-3, 24344-7, LIPNF ####[facility] LABCLIA [id number] [place] [address] [place] HDL CHOLESTEROL, NF 55 mg/dL Normal >39 [facility] Comment on above: Order Comment: Marcus fernandes Type: BLOOD SPECIMENOrdering Facility: [facility] Address: [address] [place] [address] Result Comment: 40-5 9 mg/dL, Acceptable >59 mg/dL, High: Negative risk factor for coronary heart disease <40 mg/dL, Low: Positive risk factor for coronary heart disease Performed By: #### 3 024-7, 3016-3, 66009-5, LIPNF ####[facility] LABCLIA [id number] [address] OF [facility] LDL CHOLESTEROL CALCULATED, NF 93 mg/dL Normal <100 [facility] Comment on above: Order Comment: Speci men Type: BLOOD SPECIMENOrdering Facility: [facility] Address: [address] [place] [address] Result Comment: <100 mg/dL, Optimal 100-129 mg/dL, Near optimal/above optimal 130-159 mg/dL, Borderline high 160-189 mg/dL, High >189 mg/dL, Very high Secondary prevention optimal LDL Cholesterol levels are recommended to be <70 mg/dL LDL cholesterol is calculated using the Pulido-NIH equation. Performed By: #### 3 024-7, 3016-3, 28525-6, LIPNF ####[facility] LABCLIA [id number] [address] LDL/HDL RATIO, NF 1.69 mg/dL Normal <2.54 [facility] Comment on above: Order Comment: Speci men Type: BLOOD SPECIMENOrdering Facility: [facility] Address: [address] [place] [address] Result Comment: Refe rence: 1. National Cholesterol Education Program ATP III Guideline At-A-Glance Quick Desk Reference: National Heart, Lung, and Blood [place]. National Institutes of Health. 2001: NIH Publication No. 01-3305. 2. An International Atherosclerosis Society position paper: global recommendations for the management of dyslipidemia: executive summary, Atherosclerosis. 2014: 232(2):410-413. Performed By: #### 3 024-7, 3016-3, 19918-9, LIPNF ####[facility] LABCLIA [id number] [address] [place] NON HDL CHOL, NF 110 mg/dL Normal <130 [facility] Comment on above: Order Comment: Speci men Type: BLOOD SPECIMENOrdering Facility: [facility] Address: [address] [place] [address] Result Comment: <130 mg/dL, Optimal 130-159 mg/dL, Near optimal/above optimal 160-189 mg/dL, Borderline high 190-219 mg/dL, High >219 mg/dL, Very high Secondary prevention optimal non HDL Cholesterol levels are recommended to be <100 mg/dL Performed By: #### 3 024-7, 3016-3, 85245-8, LIPNF ####[facility] LABCLIA [id number] [address] STATES OF [facility] T CHOL/HDL RATIO NF 3.00 mg/dL Normal <5.10 [facility] Comment on above: Order Comment: Speci men Type: BLOOD SPECIMENOrdering Facility: [facility] Address: [address] [place] [address] Performed By: #### 3 024-7, 3016-3, 65046-8, LIPNF ####[facility] LABCLIA [id number] [address] OF [facility] TRIGLYCERIDES, NF 95 mg/dL Normal <150 [facility] Comment on above: Order Comment: Speci men Type: BLOOD SPECIMENOrdering Facility: [facility] Address: [address] [place] [address] Result Comment: <150 mg/dL, Normal 150-199 mg/dL, Borderline high 200-499 mg/dL, High >499 mg/dL, Very high Performed By: #### 3 024-7, 3016-3, 48848-8, LIPNF ####[facility] LABCLIA [id number] [place] [address] [place] VLDL CHOLESTEROL, NF 15 mg/dL Normal <30 [facility] Comment on above: Order Comment: Speci men Type: BLOOD SPECIMENOrdering Facility: [facility] Address: [address] [place] [address] Performed By: #### 3 024-7, 3016-3, 62331-9, LIPNF ####[facility] LABCLIA [id number] [place] [address] [place] Magnesium SerPl-mCncon 09-05 Magnesium [Mass/Vol] 2.1 mg/dL Normal 1.7-2.3 [facility] Comment on above: Order Comment: Speci men Type: BLOOD SPECIMENOrdering Facility: [facility] Address: [address] [place] [address] Performed By: #### 1 9123-9 ####[facility] LABCLIA [id number] [place] [address] [place] T4 Free SerPl-mCncon 025 Free T4 [Mass/Vol] 1.2 ng/dL Normal 0.9-1.7 [facility] Comment on above: Order Comment: Speci men Type: BLOOD SPECIMENOrdering Facility: [facility] Address: [address] [place] [address] Performed By: #### 3 024-7, 3016-3, 60271-5, LIPNF ####[facility] LABIA [id number] [place] [address] [place] TSH SerPl-aCncon 09-05-2025 TSH Qn 0.656 m[IU]/L Normal 0.270-4.200 [facility] Comment on above: Order Comment: Speci men Type: BLOOD SPECIMENOrdering Facility: [facility] Address: [address] [place] [address] Performed By: #### 3 024-7, 3016-3, 25960-7, LIPNF ####[facility] LABIA [id number] [place] [address] [place] CNOVon 07-27-2025 CNOV Office Visit ([facility]) KAMI WATTS ([id number]) 1965 F NFR Date Time Provider Department 07/27/25 11:30 AM JESS ELLIS WOALLIE During your visit today, we recorded the following information about you: Temperature Pulse Respiration Blood pressure 97 degrees 70/minute 20/minute 125/85 Weight 84 kg Jess Ellis PA 07/27/2025 11:51 AM Signed [facility] Wu Watts is a 60 year old female. Patient presents with: Back Pain: Shooting down leg, R leg x 4 days HPI 60-year-old female presents for right leg pain. Patient states she has had pain in her right lower back shooting down her right leg for the past 4 days. No fevers. No loss of bowel or bladder function. She has a little bit of tingling occasionally in the right leg when sleeping at night. She has history of low back issues and sciatica in the past. She has never had surgery on the low back. No history of cancer. No fall or injury. No other complaint PAST MEDICAL HISTORY Diagnosis Date Abnormal glandular [...] ALLERGIES Patient has no known allergies. MEDICATIONS acamprosate DR (CAMPRAL) 333 mg tablet Take 666 mg by mouth three times a day. ergocalciferol 50,000 unit capsule (VITAMIN D2, DRISDOL) Take 1 capsule by mouth one time a week. Use as directed. escitalopram oxalate (LEXAPRO) 20 mg tablet Take 1 tablet by mouth once daily. busPIRone (BUSPAR) 5 mg tablet Take 1 tablet by mouth every 12 hours. albuterol HFA (PROAIR HFA) 90 mcg/actuation inhaler Inhale 2 Puffs as instructed every 4 hours as needed. buprenorphine-naloxone (SUBOXONE) 8-2 mg film Dissolve 2 Film under the tongue once daily. FAMILY HISTORY Problem Relation Age of Onset Diabetes Mother colon cancer Coronary Artery Disease Mother Hypertension Mother Hearing Loss Father DE/ colon cancer Stroke Father Diabetes Father Hypertension Father Aneurysm Father Coronary Artery Disease Maternal Grandmother Hypertension Maternal Grandmother Ischemic Heart Disease Maternal Grandfather Hypertension Paternal Grandmother Coronary Artery Disease Paternal Grandmother Coronary Artery Disease Paternal Grandfather Cancer Sister CERVICAL/colon cancer Cancer Paternal Aunt DOESN'T KNOW TYPE Heart Brother DE Hypertension Daughter Colon Cancer Brother SOCIAL HISTORY[1] Review of Systems Constitutional: (more content not included)... Normal [facility] Discharge Instructionon Discharge Instruction [facility] Medical Records Department [address] [place] [address] Instructions for Home/Discharge Instructions 07/24/25 1338 MR#: [id number] Acct: [id number] Name: KAMI WATTS Rep #: [id number] : 1965 60 From: Pepe Card DO PCP: Dr. Earnest Deuñas MD Status:ADM IN Discharge Instructions DC O2, CPAP, BIPAP needs Home O2 Discharge instructions: No Dressing / Incision Discharge Activity: Return to Normal Activity Weight Bearing Status: Full weight bearing Follow Up Care Test Results: Test results from this visit will be discussed in further detail at your follow-up appointment, if applicable. Discharge Plan Admission Admit Date/Time: 07/21/25 16:01 Primary Reason for Your Visit: alcohol detox Attending Provider: Pepe Card Primary Care Provider: Earnest Dueñas Consulting Providers: Lokesh Phoenix; Narayan Magaña Instructions Additional Instructions / Restrictions: Follow-up with outpatient detox program Discharge Orders/Prescriptions Prescriptions: Continued clonidine HCl 0.1 mg tablet 0.1 mg PO BID PRN (Reason: anxiety) Qty: 60 1RF escitalopram oxalate [Lexapro] 20 mg tablet 20 mg PO DAILY 30 Days Qty: 30 2RF buprenorphine-naloxone 8-2 mg film 1 ea sublingual BID thiamine HCl (vitamin B1) 100 mg tablet 100 mg PO DAILY acamprosate 333 mg tablet,delayed release (DR/EC) 666 mg PO TID buspirone 10 mg tablet 10 mg PO BID 30 Days Qty: 60 2RF Rx Instructions: 1 po bid Referrals / Follow Up: Earnest Dueñas MD [Primary Care Provider] - Disposition Disposition (needs filled in before D/C Order can be placed): Home, Self Care 07/24/25 1344 Pepe Card DO CC: Dr. Narayan Magaña DO; Dr. Earnest Dueñas MD; Dr. Lokesh Phoenix MD Signed Normal [facility] 12 Lead EKGon 07-21-2025 12 Lead EKG [facility] [address] [place] [address] 12 Lead EKG 07/21/25 1502 MR#: [id number] Acct: [id number] Name: KAMI WATTS Rep #: [id number] : 1965 60 From: David Tse MD Attending Dr: Dr. Pepe Card DO Status: D IS IN Ordering Dr: Thalia Mckeon MD Date: 07/21/25 Location: [facility] Sex: F C Admitted: 07/21/25 Test Reason : DETOX Blood Pressure : */* mmHG Vent. Rate : 79 BPM Atrial Rate : 79 BPM P-R Int : 170 ms QRS Dur : 96 ms QT Int : 356 ms P-R-T Axes : 61 5 81 degrees QTcB Int : 408 ms Normal sinus rhythm Possible Left atrial enlargement Nonspecific T wave abnormality Abnormal ECG Confirmed by David Tse ([id number]), editorial clerk MARCIA DIAZ ([id number]) on 07/25/2025 9:58:18 AM Referred By: Confirmed By: David Tse 07/25/25 0958 Date David Tse MD CC: Dr. Thalia Mckeon MD; Dr. Earnest Dueñas MD; Dr. Pepe Card DO Signed Normal [facility] Alcohol, Blood (Medical)-Ser umon 07-21-2025 SERUM ETOH < 10.1 Normal <=10.0 [facility] Comment on above: Result Comment: This test is for medical purposes only. The legal definition of intoxication varies according to local law. Performed By: #### L 300.3900, L501.5200, L501.2450, L505.5000, L300.4310, L100.0100, L500.4050, L501.9100 #### [facility] [address] [place], [address] CBC W/Diff, Automatedon 08- PLT EST ADEQUATE Normal ADEQ [facility] Comment on above: Performed By: #### L 505.5000, L100.0100, L500.4050, L300.3900, L501.9100 #### [facility] [address] [place], [address] SMEAR COMMENT SCANNED Normal [facility] Comment on above: Performed By: #### L 505.5000, L100.0100, L500.4050, L300.3900, L501.9100 #### [facility] [address] [place], [address] Comprehensive Metabolic Prof ilon 07-21-2025 Albumin [Mass/Vol] 4.1 g/dL Normal 3.4-4.8 [facility] Comment on above: Performed By: #### L 300.3900, L501.5200, L501.2450, L505.5000, L300.4310, L100.0100, L500.4050, L501.9100 #### [facility] [address] [place], [address] Albumin/Globulin [Mass ratio] 1.7 {ratio} Normal 0.9-2.4 [facility] Comment on above: Performed By: #### L 300.3900, L501.5200, L501.2450, L505.5000, L300.4310, L100.0100, L500.4050, L501.9100 #### [facility] [address] [place], [address] ALK PHOS 118 U/L High 35-104 [facility] Comment on above: Performed By: #### L 300.3900, L501.5200, L501.2450, L505.5000, L300.4310, L100.0100, L500.4050, L501.9100 #### [facility] [address] [place], [address] ALT [Catalytic activity/Vol] 10 U/L Normal <=34 [facility] Comment on above: Performed By: #### L 300.3900, L501.5200, L501.2450, L505.5000, L300.4310, L100.0100, L500.4050, L501.9100 #### [facility] [address] [place], [address] AST [Catalytic activity/Vol] 16 U/L Normal <=31 [facility] Comment on above: Performed By: #### L 300.3900, L501.5200, L501.2450, L505.5000, L300.4310, L100.0100, L500.4050, L501.9100 #### [facility] [address] [place], [address] Bilirubin [Mass/Vol] 0.42 mg/dL Normal 0.00-1.30 [facility] Comment on above: Performed By: #### L 300.3900, L501.5200, L501.2450, L505.5000, L300.4310, L100.0100, L500.4050, L501.9100 #### [facility] [address] [place], [address] BUN/CRE 14.9 RATIO Normal 10-20 [facility] Comment on above: Performed By: #### L 300.3900, L501.5200, L501.2450, L505.5000, L300.4310, L100.0100, L500.4050, L501.9100 #### [facility] [address] [place], [address] Calcium [Mass/Vol] 9.6 mg/dL Normal 7.6-11.0 [facility] Comment on above: Performed By: #### L 300.3900, L501.5200, L501.2450, L505.5000, L300.4310, L100.0100, L500.4050, L501.9100 #### [facility] [address] [place], [address] Chloride [Moles/Vol] 102 mmol/L Normal 98-108 [facility] Comment on above: Performed By: #### L 300.3900, L501.5200, L501.2450, L505.5000, L300.4310, L100.0100, L500.4050, L501.9100 #### [facility] [address] [place], [address] CO2 [Moles/Vol] 24.8 mmol/L Normal 21.0-32.0 [facility] Comment on above: Performed By: #### L 300.3900, L501.5200, L501.2450, L505.5000, L300.4310, L100.0100, L500.4050, L501.9100 #### [facility] [address] [place], [address] Creatinine [Mass/Vol] 0.80 mg/dL Normal 0.70-1.20 [facility] Comment on above: Performed By: #### L 300.3900, L501.5200, L501.2450, L505.5000, L300.4310, L100.0100, L500.4050, L501.9100 #### [facility] [address] [place], [address] ECRCL 79.12 ml/min Normal 50-250 [facility] Comment on above: Performed By: #### L 300.3900, L501.5200, L501.2450, L505.5000, L300.4310, L100.0100, L500.4050, L501.9100 #### [facility] [address] [place], [address] GAP 12 Normal 5-15 [facility] Comment on above: Performed By: #### L 300.3900, L501.5200, L501.2450, L505.5000, L300.4310, L100.0100, L500.4050, L501.9100 #### [facility] [address] [place], [address] GFR/1.73 sq M.predicted among non-blacks MDRD (S/P/Bld) [Vol rate/Area] 85 mL/min/{1.73_m2} Normal >60 [facility] Comment on above: Result Comment: mL/m in/1.73m2 CKD-EPI Creatinine Equation (2020) Performed By: #### L 300.3900, L501.5200, L501.2450, L505.5000, L300.4310, L100.0100, L500.4050, L501.9100 #### [facility] [address] [place], [address] Globulin (S) [Mass/Vol] 2.4 g/dL Normal 2.2-4.2 [facility] Comment on above: Performed By: #### L 300.3900, L501.5200, L501.2450, L505.5000, L300.4310, L100.0100, L500.4050, L501.9100 #### [facility] [address] [place], [address] Glucose [Mass/Vol] 110 mg/dL High 70-99 [facility] Comment on above: Performed By: #### L 300.3900, L501.5200, L501.2450, L505.5000, L300.4310, L100.0100, L500.4050, L501.9100 #### [facility] [address] [place], [address] Potassium [Moles/Vol] 3.8 mmol/L Normal 3.3-5.1 [facility] Comment on above: Performed By: #### L 300.3900, L501.5200, L501.2450, L505.5000, L300.4310, L100.0100, L500.4050, L501.9100 #### [facility] [address] [place], [address] Sodium [Moles/Vol] 139 mmol/L Normal 133-145 [facility] Comment on above: Performed By: #### L 300.3900, L501.5200, L501.2450, L505.5000, L300.4310, L100.0100, L500.4050, L501.9100 #### [facility] [address] [place], [address] T PROT 6.5 g/dL Normal 5.9-8.4 [facility] Comment on above: Performed By: #### L 300.3900, L501.5200, L501.2450, L505.5000, L300.4310, L100.0100, L500.4050, L501.9100 #### [facility] [address] [place], [address] Urea nitrogen [Mass/Vol] 12 mg/dL Normal 4-19 [facility] Comment on above: Performed By: #### L 300.3900, L501.5200, L501.2450, L505.5000, L300.4310, L100.0100, L500.4050, L501.9100 #### [facility] [address] [place], [address] Emergency Department Summary on 07-21-2025 Emergency Department Summary [facility] Medical Records Department [address] [place] [address] Emergency Department Summary 07/21/25 MR#: [id number] Acct: [id number] Name: KAMI WATTS Rep #: [id number] : 1965 60 From: Thalia Mckeon MD PCP: Dr. Earnest Dueñas MD Status:REG ER Location: ED HPI History of Present Illness Chief Complaint: Substance Abuse Narrative Narrative: Patient is a 60-year-old female presenting the emergency department for alcohol detox. Patient has a past medical history of drug abuse on Suboxone as well as alcohol abuse. States that her last drink was about 4 ounces at noon today. She reports that she drinks about 2 bottles of premixed jenny mix a day. And relapsed about 8 weeks ago. She states before this she was admitted for alcohol detox and about April. On review was May 11. She endorses some anxiousness and tremulousness. Endorses marijuana use as well. Denies any other drug use. Denies any history of alcohol withdrawal seizures. Denies any chest pain, shortness of breath, abdominal pain, nausea, vomiting, diarrhea. Denies any hallucinations. [facility] Medical History Alcohol use disorder Desire for detoxification Alcohol use disorder Substance abuse Depression Kidney stones Hypertension Generalized anxiety disorder PTSD (post-traumatic stress disorder) Major depressive disorder, recurrent severe without psychotic features Tobacco use Alcohol abuse with physiological dependence Wears dentures Wears glasses Post-menopausal Bladder disease Hearing loss, left Hearing loss, right Osteoporosis Smoker Migraines Anxiety Hepatitis Irregular heart beat Drug abuse Duodenitis Home Medications ???Medication ???Instructions ???Recorded ???Last Taken ???Type buprenorphine 8 mg-naloxone 2 mg 1 ea sublingual BID 07/13/2405/11 History sublingual film clonidine HCl 0.1 mg tablet 0.1 mg PO BID PRN anxiety #60 tabs 12/02/24 Unknown Rx escitalopram oxalate 20 mg tablet 20 mg PO DAILY 30 days #30 tabs 0 12/02/24 05/11/25 Rx (Lexapro) buspirone 10 mg tablet 10 mg PO BID 30 days #60 tabs 12/24 03/17 Unknown Rx Allergy/AdvReac Type Severity Reaction Status Date / Time No Known Allergies Allergy Verified 07/21/25 14:09 Family History Mother Breast cancer Heart disease [...] safe at home: Yes ROS ROS ED ROS Narrative see HPI EXAM Physical Exam Narrative Exam Narrative: Vital signs: Reviewed General: Alert and oriented. No acute distress HEENT: Head is normocephalic and atraumatic, sinuses nontender, pupils equal round and reactive. Nares are patent. Oropharynx and throat exams normal. Neck: Supple without lymphadenopathy nontender Cardiovascular: Regular rate and rhythm, no murmurs. No rubs or gallops. Normal S1 and S2 Respiratory: Clear to auscultation bilaterally. No wheezes, rales, rhonchi Abdominal: Soft and nontender. Normal bowel sounds. No guarding or rebound. Nonsurgical abdomen Extremities: No tenderness. No bruising. Normal range of motion. Normal sensation. Skin: No rash or redness. Neurological: Cranial nerves II through XII are grossly intact. Normal strength and sensation. Normal cerebellar function The rest of the physical exam is unremarkable Const Vital Signs: 07/21/25 14:09 07/21/25 14:09 Temperature 96.2 F L 98.6 F Temperature Source Temporal Oral Pulse Rate 96 87 Respiratory Rate 18 16 Blood Pressure 136/103 H 141/78 H Blood Pressure Mean 114 99 Blood Pressure Source Monitor Blood Pressure Location Right Arm Pulse Ox 96 98 Oxygen Delivery Method Room Air Room Air MDM MDM MDM Narrative Medical decision making narrative: Patient is a 60-year-old female presenting emergency department for alcohol detox. Patient was seen and examined. Vitals are stable. Resting bed comfortably no acute distress. She has no tachycardia. Last drink was about 3 hours ago. No history of alcohol (more content not included)... Normal [facility] H AND P Exam - [facility] 07-21-2025 H&P Exam - Hospitalist [facility] Medical Records Department [address] [place] [address] H P Exam - Hospitalist 07/21/25 1606 MR#: [id number] Acct: [id number] Name: KAMI WATTS Rep #: [id number] : 1965 60 From: Lokesh Phoenix MD PCP: Dr. Earnest Dueñas MD Status:ADM IN Location[place] [facility] [id number] HPI - General General Date of Admission: 07/21/25 Date of Service: 07/21/25 Chief Complaint: Alcohol withdrawal symptoms HPI Narrative KAMI WATTS, is a 60 F with history of chronic alcohol use disorder, remission and relapse came to ED for acute alcohol withdrawal symptoms. Patient having symptoms of mild shakiness, headache, dizziness and nausea but no vomiting. She denies hallucination, delusion, illusion, suicidal ideation/homicidal thoughts. She easily drinks 2 bottles of premixed jenny per day and has been doing for the last 2 months. Prior to that she was admitted in May 17 for acute alcohol withdrawal and was sober for about 1 to 2 months. She started drinking alcohol with beer at age of 16 with history of relapse in remission. She also has history of IV substance use including heroin/fentanyl and had chronic hepatitis C for which completed antiviral treatment in 2016. Chronic hep C is resolved now. [facility] Medical History Alcohol use disorder Desire for detoxification Alcohol use disorder Substance abuse Depression Kidney stones Hypertension Generalized anxiety disorder PTSD (post-traumatic stress disorder) Major depressive disorder, recurrent severe without psychotic features Tobacco use Alcohol abuse with physiological dependence Wears dentures Wears glasses Post-menopausal Bladder disease Hearing loss, left Hearing loss, right Osteoporosis Smoker Migraines Anxiety Hepatitis Irregular heart beat Drug abuse Duodenitis Home Medications ???Medication ???Instructions ???Recorded ???Last Taken ???Type buprenorphine 8 mg-naloxone 2 mg 1 ea sublingual BID 07/13/2405/11 History sublingual film clonidine HCl 0.1 mg tablet 0.1 mg PO BID PRN anxiety #60 tabs 12/02/24 Unknown Rx escitalopram oxalate 20 mg tablet 20 mg PO DAILY 30 days #30 tabs 0 12/02/24 05/11/25 Rx (Lexapro) buspirone 10 mg tablet 10 mg PO BID 30 days #60 tabs 12/24 03/17 Unknown Rx acamprosate 333 mg tablet,delayed 666 mg PO TID 07/21/25 Unknown Hi story release thiamine HCl (vitamin B1) 100 mg 100 mg PO DAILY 07/21/25 Unknown H istory tablet Allergy/AdvReac Type Severity Reaction Status Date / Time No Known Allergies Allergy Verified 07/21/25 14:09 Family History Mother Breast cancer Heart disease [...] breath or respiratory distress or wheezing. CVS: No chest pain pressure or tightness. Denies CAD or other chronic heart disease Gastrointestinal: Denies coffee ground emesis, hematemesis or vomiting Genitourinary: Denies burning urination or new urinary tract symptoms Musculoskeletal: Denies acute joint pain or limited range of motion. No acute injury Neurologic: Denies seizure-like symptoms. skin: No ulcer. No rash Endocrinology: Reports systems reviewed and no addt'l complaints, except as documented Hematologic/Lymphatic: Reports systems reviewed and no addt'l complaints, except as documented Rest 14 ROS are negative except as mentioned in HPI Vital Signs Vital Signs Vital Signs: 07/21/25 14:09 07/21/25 14:09 Temperature 96.2 F L 98.6 F Temperature Source Temporal Oral Pulse Rate 96 87 Respiratory Rate 18 16 Blood Pressure 136/103 H 141/78 H Blood Pressure Mean 114 99 Blood Pressure Source Monitor Blood Pressure Location Right Arm Pulse Ox 96 98 Oxygen Delivery Method Room Air Room Air Weight Weight: 18 (more content not included)... Normal [facility] Lipaseon 07-21-2025 Lipase [Catalytic activity/Vol] 23 U/L Normal 13-75 [facility] Comment on above: Result Comment: Phyllis ruby note: LIPASE revised reference range effective 23. New Lipase methodology. Expected to produce lower values than the previous assay method. NEW Reference Range: 13 - 75 U/L Performed By: #### L 300.3900, L501.5200, L501.2450, L505.5000, L300.4310, L100.0100, L500.4050, L501.9100 #### [facility] [address] [place], [place], [id number] Magnesiumon 07-21-2025 Magnesium [Mass/Vol] 1.9 mg/dL Normal 1.5-2.2 [facility] Comment on above: Performed By: #### L 505.5000, L100.0100, L500.4050, L300.3900, L501.9100 #### [facility] [address] [place], [place], [address] Partial Thromboplast Timeon 07-21-2025 aPTT Coag (Bld) [Time] 32.6 s Normal 24.1-36.2 [facility] Comment on above: Performed By: #### L 505.5000, L100.0100, L500.4050, L300.3900, L501.9100 #### [facility] [address] [place], [place], [id number] Prothrombin Time w/INRon INR Coag (PPP) [Relative time] 1.1 {INR} Normal [facility] Comment on above: Performed By: #### L 505.5000, L100.0100, L500.4050, L300.3900, L501.9100 #### [facility] [address] [place], [address] PT Coag (PPP) [Time] 14.2 s Normal 11.7-14.9 [facility] Comment on above: Performed By: #### L 505.5000, L100.0100, L500.4050, L300.3900, L501.9100 #### [facility] [address] [place], [address] Urinalysis, Completeon 07-21 AMORPHOUS 3+ Normal [facility] Comment on above: Order Comment: CLEAN CATCH Performed By: #### L 400.0001 #### [facility] [address] [place], [address] BACTERIA 1+ /hpf Normal None Seen [facility] Comment on above: Order Comment: CLEAN CATCH Performed By: #### L 400.0001 #### [facility] [address] [place], [address] EPI,SQUAMOUS 0-5 SEEN Normal 5-10 [facility] Comment on above: Order Comment: CLEAN CATCH Performed By: #### L 400.0001 #### [facility] [address] [place], [address] RBC 0-5 SEEN Normal 0-5 [facility] Comment on above: Order Comment: CLEAN CATCH Performed By: #### L 400.0001 #### [facility] [address] [place], [address] WBC 0-5 SEEN Normal 0-5 [facility] Comment on above: Order Comment: CLEAN CATCH Performed By: #### L 400.0001 #### [facility] [address] [place], [address] Mucus Ql (Urine sed) 0 SEEN Normal [facility] Comment on above: Order Comment: CLEAN CATCH Performed By: #### L 400.0001 #### [facility] [address] [place], [place], [facility] Urine Drug Screen (VISTA)on 07-21-2025 AMPHETAMINES Negative Normal <1000 ng/mL [facility] Comment on above: Performed By: #### L 505.5000, L100.0100, L500.4050, L300.3900, L501.9100 #### [facility] [address] [place] [address] BARBITIURATES Negative Normal < 200 ng/mL [facility] Comment on above: Performed By: #### L 505.5000, L100.0100, L500.4050, L300.3900, L501.9100 #### [facility] [address] [place] [address] BENZODIAZIPINE Negative Normal < 200 ng/mL [facility] Comment on above: Performed By: #### L 505.5000, L100.0100, L500.4050, L300.3900, L501.9100 #### [facility] [address] [place], [place], [facility] BUP Ur Drug Scr Positive Normal < 200 ng/mL [facility] Comment on above: Result Comment: If c onfirmation testing is needed, a separate order will be required to send out testing to the reference laboratory. Performed By: #### L 505.5000, L100.0100, L500.4050, L300.3900, L501.9100 #### [facility] [address] [place], [place], [facility] COCAINE Negative Normal < 300 ng/mL [facility] Comment on above: Performed By: #### L 505.5000, L100.0100, L500.4050, L300.3900, L501.9100 #### [facility] [address] [place], [address] Fentanyl Negative Normal <5 ng/mL [facility] Comment on above: Result Comment: CONF IRMATORY TESTING FOR ALL POSITIVE URINE DRUG SCREEN RESULTS WILL ONLY BE SENT OUT UPON PHYSICIAN ORDER. [employer] Pro Urine Drug Screen methods provide only preliminary analytical test results. A more specific alternate chemical method must be used in order to obtain a confirmed analytical result. Gas chromatography/mass spectrometery (GC/MS) is the preferred confirmatory method. Clinical consideration and professional judgement should be applied to any drug of abuse test result, particularly when preliminary positive results are used. Urine TCA testing must be ordered separately. Use test mnemonic: UTCA Performed By: #### L 505.5000, L100.0100, L500.4050, L300.3900, L501.9100 #### [facility] [address] [place], [address] METHADONE Negative Normal < 300 ng/mL [facility] Comment on above: Performed By: #### L 505.5000, L100.0100, L500.4050, L300.3900, L501.9100 #### [facility] [address] [place], [address] OPIATES Negative Normal < 300 ng/mL [facility] Comment on above: Performed By: #### L 505.5000, L100.0100, L500.4050, L300.3900, L501.9100 #### [facility] [address] [place], [address] OXYCODONE Negative Normal < 100 ng/mL [facility] Comment on above: Performed By: #### L 505.5000, L100.0100, L500.4050, L300.3900, L501.9100 #### [facility] [address] [place], [address] PCP Negative Normal < 25 ng/mL [facility] Comment on above: Performed By: #### L 505.5000, L100.0100, L500.4050, L300.3900, L501.9100 #### [facility] [address] [place], [address] THC Negative Normal < 50 ng/mL [facility] Comment on above: Performed By: #### L 505.5000, L100.0100, L500.4050, L300.3900, L501.9100 #### [facility] [address] [place], [address] Discharge Instructionon 04-24 Discharge Instruction [facility] Medical Records Department [address] [place] [address] Instructions for Home/Discharge Instructions 05/15/25 1136 MR#: [id number] Acct: [id number] Name: KAMI WATTS Rep #: [id number] : 1965 59 From: Pepe Card DO PCP: Dr. Earnest Dueñas MD Status:ADM IN Discharge Instructions Diet Discharge Diet: No restrictions DC O2, CPAP, BIPAP needs Home O2 Discharge instructions: No Dressing / Incision Discharge Activity: Return to Normal Activity Weight Bearing Status: Full weight bearing Follow Up Care Test Results: Test results from this visit will be discussed in further detail at your follow-up appointment, if applicable. Discharge Plan Admission Admit Date/Time: 05/11/25 18:34 Primary Reason for Your Visit: Alcohol detox Attending Provider: Pepe Card Primary Care Provider: Earnest Dueñas Consulting Providers: Marck David; Kayli Slater Discharge Orders/Prescriptions Prescriptions: Continued clonidine HCl 0.1 mg tablet 0.1 mg PO BID PRN (Reason: anxiety) Qty: 60 1RF escitalopram oxalate [Lexapro] 20 mg tablet 20 mg PO DAILY 30 Days Qty: 30 2RF buprenorphine-naloxone 8-2 mg film 1 ea sublingual BID buspirone 10 mg tablet 10 mg PO BID 30 Days Qty: 60 2RF Rx Instructions: 1 po bid Referrals / Follow Up: Earnest Dueñas MD [Primary Care Provider] - See Referral Note (At next scheduled visit) Disposition Disposition (needs filled in before D/C Order can be placed): Home, Self Care 05/15/25 1142 Pepe Kyaw [place] CC: Dr. Marck David DO; Dr. Earnest Dueñas MD; Dr. Kayli Slater MD Signed Normal [facility] Urine Cultureon 05-14-2025 URC Mixed Gram Positive Organisms [place] Count 25,000-50,000 MIXC Mixed contaminants. Submit a new specimen if indicated. Normal [facility] Comment on above: Performed By: #### L 505.5000, L100.0100, L500.4050, L300.3900, L501.9100 #### [facility] [address] [place], [address] Basic Metabolic Profile (BMP )on 05-12-2025 BUN/CRE 18.3 RATIO Normal - [facility] Comment on above: Performed By: #### L 505.5000, L100.0100, L500.4050, L300.3900, L501.9100 #### [facility] [address] [place], [address] Calcium [Mass/Vol] 8.7 mg/dL Normal 7.6-11.0 [facility] Comment on above: Performed By: #### L 505.5000, L100.0100, L500.4050, L300.3900, L501.9100 #### [facility] [address] [place], [address] Chloride [Moles/Vol] 106 mmol/L Normal 98-108 [facility] Comment on above: Performed By: #### L 505.5000, L100.0100, L500.4050, L300.3900, L501.9100 #### [facility] [address] [place], [address] CO2 [Moles/Vol] 24.1 mmol/L Normal 21.0-32.0 [facility] Comment on above: Performed By: #### L 505.5000, L100.0100, L500.4050, L300.3900, L501.9100 #### [facility] [address] [place], [address] Creatinine [Mass/Vol] 0.54 mg/dL Low 0.70-1.20 [facility] Comment on above: Performed By: #### L 505.5000, L100.0100, L500.4050, L300.3900, L501.9100 #### [facility] [address] [place], [address] ECRCL 117.05 ml/min Normal 50-250 [facility] Comment on above: Performed By: #### L 505.5000, L100.0100, L500.4050, L300.3900, L501.9100 #### [facility] [address] [place], [address] GAP 9 Normal 5-15 [facility] Comment on above: Performed By: #### L 505.5000, L100.0100, L500.4050, L300.3900, L501.9100 #### [facility] [address] [place], [address] GFR/1.73 sq M.predicted among non-blacks MDRD (S/P/Bld) [Vol rate/Area] 106 mL/min/{1.73_m2} Normal >60 [facility] Comment on above: Result Comment: mL/m in/1.73m2 CKD-EPI Creatinine Equation (2020) Performed By: #### L 505.5000, L100.0100, L500.4050, L300.3900, L501.9100 #### [facility] [address] [place], [address] Glucose [Mass/Vol] 98 mg/dL Normal 70-99 [facility] Comment on above: Performed By: #### L 505.5000, L100.0100, L500.4050, L300.3900, L501.9100 #### [facility] [address] [place], [address] Potassium [Moles/Vol] 4.0 mmol/L Normal 3.3-5.1 [facility] Comment on above: Result Comment: Hemo lysis present, Results??could be affected. ?? Performed By: #### L 505.5000, L100.0100, L500.4050, L300.3900, L501.9100 #### [facility] [address] [place], [address] Sodium [Moles/Vol] 139 mmol/L Normal 133-145 [facility] Comment on above: Performed By: #### L 505.5000, L100.0100, L500.4050, L300.3900, L501.9100 #### [facility] [address] [place], [address] Urea nitrogen [Mass/Vol] 10 mg/dL Normal 4-19 [facility] Comment on above: Performed By: #### L 505.5000, L100.0100, L500.4050, L300.3900, L501.9100 #### [facility] [address] [place], [address] CBC-Complete Blood Cnt No Di ffon 05-12-2025 Erythrocyte distribution width (RBC) [Ratio] 13.5 % Normal 11.6-14.6 [facility] Comment on above: Performed By: #### L 505.5000, L100.0100, L500.4050, L300.3900, L501.9100 #### [facility] [address] [place], [address] Hematocrit (Bld) [Volume fraction] 42.6 % Normal 37-47 [facility] Comment on above: Performed By: #### L 505.5000, L100.0100, L500.4050, L300.3900, L501.9100 #### [facility] [address] [place], [address] Hemoglobin (Bld) [Mass/Vol] 14.4 g/dL Normal 12.0-15.0 [facility] Comment on above: Performed By: #### L 505.5000, L100.0100, L500.4050, L300.3900, L501.9100 #### [facility] [address] [place], [address] MCH (RBC) [Entitic mass] 32.3 pg High 27.0-32.0 [facility] Comment on above: Performed By: #### L 505.5000, L100.0100, L500.4050, L300.3900, L501.9100 #### [facility] [address] [place], [address] MCHC (RBC) [Mass/Vol] 33.8 g/dL Normal 32-36 [facility] Comment on above: Performed By: #### L 505.5000, L100.0100, L500.4050, L300.3900, L501.9100 #### [facility] [address] [place], [address] MCV (RBC) [Entitic vol] 95.5 fL Normal 81-99 [facility] Comment on above: Performed By: #### L 505.5000, L100.0100, L500.4050, L300.3900, L501.9100 #### [facility] [address] [place], [address] Platelet mean volume (Bld) [Entitic vol] 9.3 fL Normal 6.2-12.0 [facility] Comment on above: Performed By: #### L 505.5000, L100.0100, L500.4050, L300.3900, L501.9100 #### [facility] [address] [place], [address] Platelets (Bld) [#/Vol] 247 10*3/uL Normal 150-450 [facility] Comment on above: Performed By: #### L 505.5000, L100.0100, L500.4050, L300.3900, L501.9100 #### [facility] [address] [place], [address] RBC (Bld) [#/Vol] 4.46 10*6/uL Normal 4.2-5.4 [facility] Comment on above: Performed By: #### L 505.5000, L100.0100, L500.4050, L300.3900, L501.9100 #### [facility] [address] [place], [address] RDW SD 47.7 fl High 35.1-43.9 [facility] Comment on above: Performed By: #### L 505.5000, L100.0100, L500.4050, L300.3900, L501.9100 #### [facility] [address] [place], [address] WBC (Bld) [#/Vol] 5.2 10*3/uL Normal 4.4-11.0 [facility] Comment on above: Performed By: #### L 505.5000, L100.0100, L500.4050, L300.3900, L501.9100 #### [facility] [address] [place], [address] Urinalysis, Completeon 05-12 EPI,SQUAMOUS 0-5 SEEN Normal 5-10 [facility] Comment on above: Order Comment: CLEAN CATCH Performed By: #### L 505.5000, L100.0100, L500.4050, L300.3900, L501.9100 #### [facility] [address] [place], [address] RBC 0-5 SEEN Normal 0-5 [facility] Comment on above: Order Comment: CLEAN CATCH Performed By: #### L 505.5000, L100.0100, L500.4050, L300.3900, L501.9100 #### [facility] [address] [place], [address] WBC 5-10 SEEN Normal 0-5 [facility] Comment on above: Order Comment: CLEAN CATCH Performed By: #### L 505.5000, L100.0100, L500.4050, L300.3900, L501.9100 #### [facility] [address] [place], [address] BACTERIA 0 SEEN Normal None Seen [facility] Comment on above: Order Comment: CLEAN CATCH Performed By: #### L 505.5000, L100.0100, L500.4050, L300.3900, L501.9100 #### [facility] [address] [place], [address] Mucus Ql (Urine sed) 0 SEEN Normal [facility] Comment on above: Order Comment: CLEAN CATCH Performed By: #### L 505.5000, L100.0100, L500.4050, L300.3900, L501.9100 #### [facility] [address] [place], [address] Alcohol, Blood (Medical)-Ser [facility] 05-11-2025 SERUM ETOH 72.3 mg/dL High <=10.0 [facility] Comment on above: Result Comment: This test is for medical purposes only. The legal definition of intoxication varies according to local law. Performed By: #### L 505.5000, L100.0100, L500.4050, L300.3900, L501.9100 #### [facility] [address] [place], [address] CBC W/Diff, Automatedon 06- Absolute Lymph 2.52 X10 3/uL Normal 0.83-4.51 [facility] Comment on above: Performed By: #### L 505.5000, L100.0100, L500.4050, L300.3900, L501.9100 #### [facility] [address] [place], [address] Absolute Neut 3.3 X10 3/uL Normal 2.0-7.7 [facility] Comment on above: Performed By: #### L 505.5000, L100.0100, L500.4050, L300.3900, L501.9100 #### [facility] [address] [place], [address] Basophils/100 WBC (Bld) 1.1 % High 0-1 [facility] Comment on above: Performed By: #### L 505.5000, L100.0100, L500.4050, L300.3900, L501.9100 #### [facility] [address] [place], [address] Eosinophils/100 WBC (Bld) 3.5 % Normal 0-5 [facility] Comment on above: Performed By: #### L 505.5000, L100.0100, L500.4050, L300.3900, L501.9100 #### [facility] [address] [place], [address] Erythrocyte distribution width (RBC) [Ratio] 13.4 % Normal 11.6-14.6 [facility] Comment on above: Performed By: #### L 505.5000, L100.0100, L500.4050, L300.3900, L501.9100 #### [facility] [address] [place], [address] Hematocrit (Bld) [Volume fraction] 43.2 % Normal 37-47 [facility] Comment on above: Performed By: #### L 505.5000, L100.0100, L500.4050, L300.3900, L501.9100 #### [facility] [address] [place], [address] Hemoglobin (Bld) [Mass/Vol] 14.9 g/dL Normal 12.0-15.0 [facility] Comment on above: Performed By: #### L 505.5000, L100.0100, L500.4050, L300.3900, L501.9100 #### [facility] [address] [place], [address] IG% 0.300 Normal 0.0-0.9 [facility] Comment on above: Result Comment: IG% - Immature Granulocytes (promyelocytes, myelocytes and metamyelocytes) > 1% indicates that a LEFT SHIFT is Present. Performed By: #### L 505.5000, L100.0100, L500.4050, L300.3900, L501.9100 #### [facility] [address] [place], [address] Lymphocytes/100 WBC (Bld) 38.7 % Normal 19-41 [facility] Comment on above: Performed By: #### L 505.5000, L100.0100, L500.4050, L300.3900, L501.9100 #### [facility] [address] [place], [address] MCH (RBC) [Entitic mass] 32.2 pg High 27.0-32.0 [facility] Comment on above: Performed By: #### L 505.5000, L100.0100, L500.4050, L300.3900, L501.9100 #### [facility] [address] [place], [address] MCHC (RBC) [Mass/Vol] 34.5 g/dL Normal 32-36 [facility] Comment on above: Performed By: #### L 505.5000, L100.0100, L500.4050, L300.3900, L501.9100 #### [facility] [address] [place], [address] MCV (RBC) [Entitic vol] 93.3 fL Normal 81-99 [facility] Comment on above: Performed By: #### L 505.5000, L100.0100, L500.4050, L300.3900, L501.9100 #### [facility] [address] [place], [address] Monocytes/100 WBC (Bld) 6.5 % Normal 0-10 [facility] Comment on above: Performed By: #### L 505.5000, L100.0100, L500.4050, L300.3900, L501.9100 #### [facility] [address] [place], [address] Neutrophils/100 WBC (Bld) 49.9 % Normal 47-70 [facility] Comment on above: Performed By: #### L 505.5000, L100.0100, L500.4050, L300.3900, L501.9100 #### [facility] [address] [place], [address] Nucleated RBC (Bld) [#/Vol] 0 10*3/uL Normal 0-5 [facility] Comment on above: Performed By: #### L 505.5000, L100.0100, L500.4050, L300.3900, L501.9100 #### [facility] [address] [place], [address] Platelet mean volume (Bld) [Entitic vol] 9.2 fL Normal 6.2-12.0 [facility] Comment on above: Performed By: #### L 505.5000, L100.0100, L500.4050, L300.3900, L501.9100 #### [facility] [address] [place], [address] Platelets (Bld) [#/Vol] 297 10*3/uL Normal 150-450 [facility] Comment on above: Performed By: #### L 505.5000, L100.0100, L500.4050, L300.3900, L501.9100 #### [facility] [address] [place], [address] RBC (Bld) [#/Vol] 4.63 10*6/uL Normal 4.2-5.4 [facility] Comment on above: Performed By: #### L 505.5000, L100.0100, L500.4050, L300.3900, L501.9100 #### [facility] [address] [place], [address] RDW SD 45.9 fl High 35.1-43.9 [facility] Comment on above: Performed By: #### L 505.5000, L100.0100, L500.4050, L300.3900, L501.9100 #### [facility] [address] [place], [address] WBC (Bld) [#/Vol] 6.5 10*3/uL Normal 4.4-11.0 [facility] Comment on above: Performed By: #### L 505.5000, L100.0100, L500.4050, L300.3900, L501.9100 #### [facility] [address] [place], [address] Comprehensive Metabolic [facility] 05-11-2025 Albumin [Mass/Vol] 4.1 g/dL Normal 3.5-5.0 [facility] Comment on above: Performed By: #### L 505.5000, L100.0100, L500.4050, L300.3900, L501.9100 #### [facility] [address] [place], [address] Albumin/Globulin [Mass ratio] 1.8 {ratio} Normal 0.9-2.4 [facility] Comment on above: Performed By: #### L 505.5000, L100.0100, L500.4050, L300.3900, L501.9100 #### [facility] [address] [place], [address] ALK PHOS 126 U/L High 35-104 [facility] Comment on above: Performed By: #### L 505.5000, L100.0100, L500.4050, L300.3900, L501.9100 #### [facility] [address] [place], [address] ALT [Catalytic activity/Vol] 13 U/L Normal <=34 [facility] Comment on above: Performed By: #### L 505.5000, L100.0100, L500.4050, L300.3900, L501.9100 #### [facility] [address] [place], [address] AST [Catalytic activity/Vol] 18 U/L Normal <=31 [facility] Comment on above: Performed By: #### L 505.5000, L100.0100, L500.4050, L300.3900, L501.9100 #### [facility] [address] [place], [address] Bilirubin [Mass/Vol] 0.34 mg/dL Normal 0.00-1.30 [facility] Comment on above: Performed By: #### L 505.5000, L100.0100, L500.4050, L300.3900, L501.9100 #### [facility] [address] [place], [address] BUN/CRE 11.8 RATIO Normal 10-20 [facility] Comment on above: Performed By: #### L 505.5000, L100.0100, L500.4050, L300.3900, L501.9100 #### [facility] [address] [place], [address] Calcium [Mass/Vol] 8.6 mg/dL Normal 7.6-11.0 [facility] Comment on above: Performed By: #### L 505.5000, L100.0100, L500.4050, L300.3900, L501.9100 #### [facility] [address] [place], [address] Chloride [Moles/Vol] 103 mmol/L Normal 98-108 [facility] Comment on above: Performed By: #### L 505.5000, L100.0100, L500.4050, L300.3900, L501.9100 #### [facility] [address] [place], [address] CO2 [Moles/Vol] 24.5 mmol/L Normal 21.0-32.0 [facility] Comment on above: Performed By: #### L 505.5000, L100.0100, L500.4050, L300.3900, L501.9100 #### [facility] [address] [place], [address] Creatinine [Mass/Vol] 0.59 mg/dL Low 0.70-1.20 [facility] Comment on above: Performed By: #### L 505.5000, L100.0100, L500.4050, L300.3900, L501.9100 #### [facility] [address] [place], [address] ECRCL 105.47 ml/min Normal 50-250 [facility] Comment on above: Performed By: #### L 505.5000, L100.0100, L500.4050, L300.3900, L501.9100 #### [facility] [address] [place], [address] GAP 12 Normal 5-15 [facility] Comment on above: Performed By: #### L 505.5000, L100.0100, L500.4050, L300.3900, L501.9100 #### [facility] [address] [place], [address] GFR/1.73 sq M.predicted among non-blacks MDRD (S/P/Bld) [Vol rate/Area] 104 mL/min/{1.73_m2} Normal >60 [facility] Comment on above: Result Comment: mL/m in/1.73m2 CKD-EPI Creatinine Equation (2020) Performed By: #### L 505.5000, L100.0100, L500.4050, L300.3900, L501.9100 #### [facility] [address] [place], [address] Globulin (S) [Mass/Vol] 2.3 g/dL Normal 2.2-4.2 [facility] Comment on above: Performed By: #### L 505.5000, L100.0100, L500.4050, L300.3900, L501.9100 #### [facility] [address] [place], [address] Glucose [Mass/Vol] 107 mg/dL High 70-99 [facility] Comment on above: Performed By: #### L 505.5000, L100.0100, L500.4050, L300.3900, L501.9100 #### [facility] [address] [place], [address] Potassium [Moles/Vol] 3.7 mmol/L Normal 3.3-5.1 [facility] Comment on above: Performed By: #### L 505.5000, L100.0100, L500.4050, L300.3900, L501.9100 #### [facility] [address] [place], [address] Sodium [Moles/Vol] 140 mmol/L Normal 133-145 [facility] Comment on above: Performed By: #### L 505.5000, L100.0100, L500.4050, L300.3900, L501.9100 #### [facility] [address] [place], [address] T PROT 6.4 g/dL Normal 5.9-8.4 [facility] Comment on above: Performed By: #### L 505.5000, L100.0100, L500.4050, L300.3900, L501.9100 #### [facility] [address] [place], [address] Urea nitrogen [Mass/Vol] 7 mg/dL Normal 4-19 [facility] Comment on above: Performed By: #### L 505.5000, L100.0100, L500.4050, L300.3900, L501.9100 #### [facility] [address] [place], [address] Emergency Department Summary on 05-11-2025 Emergency Department Summary [facility] Medical Records Department [address] [facility] [place] [address] Emergency Department Summary 05/11/25 MR#: [id number] Acct: [id number] Name: KAMI WATTS Rep #: [id number] : 1965 59 From: Remy Domingo DO PCP: Dr. Earnest Dueñas MD Status:REG ER Location: ED HPI History of Present Illness Chief Complaint: ETOH Intox Narrative Narrative: Chief complaint and HPI: Alcohol detox. 59-year-old female with past medical history of chronic alcohol abuse, tobacco abuse, previous opiate abuse on Suboxone presents for alcohol detox. Patient states her last alcoholic beverage was approximately 1 hour ago. States she drinks 2 large bottles of jenny a day. Denies any withdrawal symptoms at this time. Denies any suicidal or homicidal ideation. Review of systems: See HPI Medications: As listed on the chart Allergies: As listed on the chart PFSH: Per chart Vital signs: As listed on the chart. Reviewed. Physical exam: Gen: A O x3, NAD Head: Normocephalic, atraumatic Eyes: No sclera icterus, conjunctiva clear PERRL, ENT: Moist mucous membranes CV: RRR, no murmurs Resp: Lungs CTA BL, no w/r/c GI: Abd soft, non-distended, non-tender, no r/r/g Musc: Full ROM, no deformity Skin: Warm, dry Neuro: Alert, oriented, grossly intact, sensation intact Psych: Cooperative, appropriate mood and [facility] History Alcohol use disorder Tobacco [...] mg-naloxone 2 mg 1 ea sublingual BID 07/13/2405/11 History sublingual film clonidine HCl 0.1 mg tablet 0.1 mg PO BID PRN anxiety #60 tabs 12/02/24 Unknown Rx escitalopram oxalate 20 mg tablet 20 mg PO DAILY 30 days #30 tabs 0 12/02/24 05/11/25 Rx (Lexapro) buspirone 10 mg tablet 10 mg PO BID 30 days #60 tabs 12/24 03/17 Unknown Rx Allergy/AdvReac Type Severity Reaction Status Date / Time No Known Allergies Allergy Verified 05/11/25 16:01 Family History Mother Breast cancer Heart disease [...] Yes EXAM Physical Exam Const Vital Signs: 05/11/25 15:57 05/11/25 15:58 05/11/25 16:12 Temperature 98.2 F 98.3 F 98.4 F Temperature Source Oral Oral Oral Pulse Rate 88 92 77 Respiratory Rate 15 18 18 Blood Pressure 138/89 H 143/101 H 131/98 H Blood Pressure Mean 105 115 109 Blood Pressure Source Monitor Monitor Blood Pressure Position Semi-Fowlers Semi-Fowlers Blood Pressure Location Right Arm Right Arm Pulse Ox 94 98 97 Oxygen Delivery Method Room Air Room Air 05/11/25 16:57 05/11/25 18:00 Temperature 97.8 F Temperature Source Oral Pulse Rate 80 78 Respiratory Rate 18 16 Blood Pressure 134/99 H 146/95 H Blood Pressure Mean 110 112 Blood Pressure Source Blood Pressure Position Blood Pressure Location Pulse Ox 98 93 Oxygen Delivery Method Room Air Room Air MDM MDM MDM Narrative Medical decision making narrative: 59-year-old female with past medical history of chronic alcohol abuse, tobacco abuse, previous opiate abuse on Suboxone presents for alcohol detox. Last alcoholic drink was approximately 1 hour ago. Has no history of delirium or seizures with withdrawal. Currently denying any withdrawal symptoms. On presentation, patient is no acute distress. Her vitals are stable other than mild hypertension. NS bolus ordered. On chart review, (more content not included)... Normal [facility] H AND P Exam - [facility] 05-11-2025 H&P Exam - Hospitalist [facility] Medical Records Department [address] [place] [address] H P Exam - Hospitalist 05/11/25 1834 MR#: [id number] Acct: [id number] Name: KAMI WATTS Rep #: [id number] : 1965 59 From: Marck David DO PCP: Dr. Earnest Dueñas MD Status:REG ER Location: ED HPI - General General Date of Admission: 05/11/25 Date of Service: 05/11/25 Chief Complaint: Alcohol detox HPI Narrative KAMI WATTS, is a 59 F who presented to [facility] ED on 05/11/2025 for alcohol detox. Patient was recently hospitalized here in February for alcohol detox. She tolerated phenobarbital taper well at that time. Was discharged home and plan was for outpatient follow-up and treatment. She unfortunately relapsed not long after that hospitalization. Has been drinking 2 large bottles of jenny daily. Last drink was 1 hour prior to admission. Alcohol level only 72 on admit. In the ED she was mildly hypertensive but otherwise hemodynamically stable. Labs were fairly benign. Given desire for detox, hospitalist was contacted for admission. I saw the patient at bedside in ED. She was mildly fatigued appearing but otherwise laying back comfortably in bed, in no acute distress. She reported only mild withdrawal symptoms currently. She does report taking her Suboxone as prescribed for prior history of opiate abuse. She was requesting addicting patch and smokes 1 pack of cigarettes per day. No other acute concerns currently. Will be admitted for further management. [facility] Medical History Alcohol use disorder Tobacco [...] mg-naloxone 2 mg 1 ea sublingual BID 07/13/2405/11 History sublingual film clonidine HCl 0.1 mg tablet 0.1 mg PO BID PRN anxiety #60 tabs 12/02/24 Unknown Rx escitalopram oxalate 20 mg tablet 20 mg PO DAILY 30 days #30 tabs 0 12/02/24 05/11/25 Rx (Lexapro) buspirone 10 mg tablet 10 mg PO BID 30 days #60 tabs 12/24 03/17 Unknown Rx Allergy/AdvReac Type Severity Reaction Status Date / Time No Known Allergies Allergy Verified 05/11/25 16:01 Family History Mother Breast cancer Heart disease [...] you feel safe at home: Yes ROS Constitutional Constitutional: Reports fatigue; Denies chills, fever(s) or weakness Eyes Eyes: Denies change in vision Cardiovascular Cardiovascular: Denies chest pain Respiratory/Chest Respiratory/Chest: Denies shortness of breath at rest Gastrointestinal Gastrointestinal: Denies abdominal pain Genitourinary Genitourinary: Denies dysuria Musculoskeletal Musculoskeletal: Denies myalgias Neurologic Neurologic: Reports headache(s); Denies focal weakness or numbness Vital Signs Vital Signs Vital Signs: 05/11/25 15:57 05/11/25 15:58 05/11/25 16:12 Temperature 98.2 F 98.3 F 98.4 F Temperature Source Oral Oral Oral Pulse Rate 88 92 77 Respiratory Rate 15 18 18 Blood Pressure 138/89 H 143/101 H 131/98 H Blood Pressure Mean 105 115 109 Blood Pressure Source Monitor Monitor Blood Pressure Position Semi-Fowlers Semi-Fowlers Blood Pressure Location Right Arm Right Arm Pulse Ox 94 98 97 Oxygen Delivery Method Room Air Room Air 05/11/25 16:57 05/11/25 18:00 Temperature 97.8 F Temperature Source Oral Pulse Rate 80 78 Respiratory Rate 18 16 Blood Pressure 134/99 H 146/95 H Blood Pressure Mean 110 112 Blood Pressu (more content not included)... Normal [facility] Magnesiumon 05-11-2025 Magnesium [Mass/Vol] 2.0 mg/dL Normal 1.5-2.2 [facility] Comment on above: Performed By: #### L 505.5000, L100.0100, L500.4050, L300.3900, L501.9100 #### [facility] [address] [place], [address] Urine Drug Screen (VISTA)on 05-11-2025 AMPHETAMINES Negative Normal <1000 ng/mL [facility] Comment on above: Performed By: #### L 505.5000, L100.0100, L500.4050, L300.3900, L501.9100 #### [facility] [address] [place], [address] BARBITIURATES Negative Normal < 200 ng/mL [facility] Comment on above: Performed By: #### L 505.5000, L100.0100, L500.4050, L300.3900, L501.9100 #### [facility] [address] [place], [address] BENZODIAZIPINE Negative Normal < 200 ng/mL [facility] Comment on above: Performed By: #### L 505.5000, L100.0100, L500.4050, L300.3900, L501.9100 #### [facility] [address] [place], [address] BUP Ur Drug Scr Positive Normal < 200 ng/mL [facility] Comment on above: Result Comment: If c onfirmation testing is needed, a separate order will be required to send out testing to the reference laboratory. Performed By: #### L 505.5000, L100.0100, L500.4050, L300.3900, L501.9100 #### [facility] [address] [place], [address] COCAINE Negative Normal < 300 ng/mL [facility] Comment on above: Performed By: #### L 505.5000, L100.0100, L500.4050, L300.3900, L501.9100 #### [facility] [address] [place], [address] Fentanyl Negative Normal [facility] Comment on above: Performed By: #### L 505.5000, L100.0100, L500.4050, L300.3900, L501.9100 #### [facility] [address] [place], [address] METHADONE Negative Normal < 300 ng/mL [facility] Comment on above: Performed By: #### L 505.5000, L100.0100, L500.4050, L300.3900, L501.9100 #### [facility] [address] [place], [address] OPIATES Negative Normal < 300 ng/mL [facility] Comment on above: Performed By: #### L 505.5000, L100.0100, L500.4050, L300.3900, L501.9100 #### [facility] [address] [place], [address] OXYCODONE Negative Normal < 100 ng/mL [facility] Comment on above: Performed By: #### L 505.5000, L100.0100, L500.4050, L300.3900, L501.9100 #### [facility] [address] [place], [address] PCP Negative Normal < 25 ng/mL [facility] Comment on above: Performed By: #### L 505.5000, L100.0100, L500.4050, L300.3900, L501.9100 #### [facility] [address] [place], [address] THC Negative Normal < 50 ng/mL [facility] Comment on above: Performed By: #### L 505.5000, L100.0100, L500.4050, L300.3900, L501.9100 #### [facility] [address] [place], [address] Marina 05-04-2025 CNCO Letter Text Normal [facility] SCREENING W Maninder 03-30 DAYNA SCREENING W SRIDEVI * * *Final Report* * * DATE OF EXAM: Mar 30 2025 11:07AM [facility] [id number] - DAYNA SCREENING W SRIDEVI / PROCEDURE REASON: Encounter for screening mammogram for breast cancer * * * * Physician Interpretation * * * * RESULT: [facility] [address] [place] [address] #[id number] - DAYNA SCREENING W SRIDEVI HISTORY: 59 [...] Eva Tobias M.D. Electronically signed on: 03/31/2025 Manager Storage: SWATI Transcribe Date/Time: Mar 30 2025 10:57A Dictated by: EVA TOBIAS MD This examination was interpreted and the report reviewed and electronically signed by: EVA TOBIAS MD on Mar 31 2025 10:50AM EST [id number] Normal [facility] Phosphoruson 03-07-2025 Phosphate [Mass/Vol] 3.3 mg/dL Normal 2.7-4.5 [facility] Comment on above: Performed By: #### L 505.5000, L100.0100, L500.4050, L300.3900, L501.9100 #### [facility] [address] [place], [address] CBC W/Diff, Automatedon 02-21 Absolute Lymph 2.01 X10 3/uL Normal 0.83-4.51 [facility] Comment on above: Performed By: #### L 505.5000, L100.0100, L500.4050, L300.3900, L501.9100 #### [facility] [address] [place], [address] Absolute Neut 2.3 X10 3/uL Normal 2.0-7.7 [facility] Comment on above: Performed By: #### L 505.5000, L100.0100, L500.4050, L300.3900, L501.9100 #### [facility] [address] [place], [address] Basophils/100 WBC (Bld) 1.0 % Normal 0-1 [facility] Comment on above: Performed By: #### L 505.5000, L100.0100, L500.4050, L300.3900, L501.9100 #### [facility] [address] [place], [address] Eosinophils/100 WBC (Bld) 5.0 % Normal 0-5 [facility] Comment on above: Performed By: #### L 505.5000, L100.0100, L500.4050, L300.3900, L501.9100 #### [facility] [address] [place], [address] Erythrocyte distribution width (RBC) [Ratio] 13.7 % Normal 11.6-14.6 [facility] Comment on above: Performed By: #### L 505.5000, L100.0100, L500.4050, L300.3900, L501.9100 #### [facility] [address] [place], [address] Hematocrit (Bld) [Volume fraction] 40.4 % Normal 37-47 [facility] Comment on above: Performed By: #### L 505.5000, L100.0100, L500.4050, L300.3900, L501.9100 #### [facility] [address] [place], [address] Hemoglobin (Bld) [Mass/Vol] 13.5 g/dL Normal 12.0-15.0 [facility] Comment on above: Performed By: #### L 505.5000, L100.0100, L500.4050, L300.3900, L501.9100 #### [facility] [address] [place], [address] IG% 0.800 Normal 0.0-0.9 [facility] Comment on above: Result Comment: IG% - Immature Granulocytes (promyelocytes, myelocytes and metamyelocytes) > 1% indicates that a LEFT SHIFT is Present. Performed By: #### L 505.5000, L100.0100, L500.4050, L300.3900, L501.9100 #### [facility] [address] [place], [address] Lymphocytes/100 WBC (Bld) 40.3 % Normal 19-41 [facility] Comment on above: Performed By: #### L 505.5000, L100.0100, L500.4050, L300.3900, L501.9100 #### [facility] [address] [place], [address] MCH (RBC) [Entitic mass] 32.6 pg High 27.0-32.0 [facility] Comment on above: Performed By: #### L 505.5000, L100.0100, L500.4050, L300.3900, L501.9100 #### [facility] [address] [place], [address] MCHC (RBC) [Mass/Vol] 33.4 g/dL Normal 32-36 [facility] Comment on above: Performed By: #### L 505.5000, L100.0100, L500.4050, L300.3900, L501.9100 #### [facility] [address] [place], [address] MCV (RBC) [Entitic vol] 97.6 fL Normal 81-99 [facility] Comment on above: Performed By: #### L 505.5000, L100.0100, L500.4050, L300.3900, L501.9100 #### [facility] [address] [place], [address] Monocytes/100 WBC (Bld) 7.8 % Normal 0-10 [facility] Comment on above: Performed By: #### L 505.5000, L100.0100, L500.4050, L300.3900, L501.9100 #### [facility] [address] [place], [address] Neutrophils/100 WBC (Bld) 45.1 % Low 47-70 [facility] Comment on above: Performed By: #### L 505.5000, L100.0100, L500.4050, L300.3900, L501.9100 #### [facility] [address] [place], [address] Nucleated RBC (Bld) [#/Vol] 0 10*3/uL Normal 0-5 [facility] Comment on above: Performed By: #### L 505.5000, L100.0100, L500.4050, L300.3900, L501.9100 #### [facility] [address] [place], [address] Platelet mean volume (Bld) [Entitic vol] 9.5 fL Normal 6.2-12.0 [facility] Comment on above: Performed By: #### L 505.5000, L100.0100, L500.4050, L300.3900, L501.9100 #### [facility] [address] [place], [address] Platelets (Bld) [#/Vol] 268 10*3/uL Normal 150-450 [facility] Comment on above: Performed By: #### L 505.5000, L100.0100, L500.4050, L300.3900, L501.9100 #### [facility] [address] [place], [address] RBC (Bld) [#/Vol] 4.14 10*6/uL Low 4.2-5.4 [facility] Comment on above: Performed By: #### L 505.5000, L100.0100, L500.4050, L300.3900, L501.9100 #### [facility] [address] [place], [address] RDW SD 49.7 fl High 35.1-43.9 [facility] Comment on above: Performed By: #### L 505.5000, L100.0100, L500.4050, L300.3900, L501.9100 #### [facility] [address] [place], [address] WBC (Bld) [#/Vol] 5.0 10*3/uL Normal 4.4-11.0 [facility] Comment on above: Performed By: #### L 505.5000, L100.0100, L500.4050, L300.3900, L501.9100 #### [facility] [address] [place], [address] Comprehensive Metabolic Prof nvon 03-06-2025 Albumin [Mass/Vol] 3.5 g/dL Normal 3.5-5.0 [facility] Comment on above: Performed By: #### L 505.5000, L100.0100, L500.4050, L300.3900, L501.9100 #### [facility] [address] [place], [address] Albumin/Globulin [Mass ratio] 1.7 {ratio} Normal 0.9-2.4 [facility] Comment on above: Performed By: #### L 505.5000, L100.0100, L500.4050, L300.3900, L501.9100 #### [facility] [address] [place], [address] ALK PHOS 110 U/L High 35-104 [facility] Comment on above: Performed By: #### L 505.5000, L100.0100, L500.4050, L300.3900, L501.9100 #### [facility] [address] [place], [address] ALT [Catalytic activity/Vol] 13 U/L Normal <=34 [facility] Comment on above: Performed By: #### L 505.5000, L100.0100, L500.4050, L300.3900, L501.9100 #### [facility] [address] [place], [address] AST [Catalytic activity/Vol] 20 U/L Normal <=31 [facility] Comment on above: Performed By: #### L 505.5000, L100.0100, L500.4050, L300.3900, L501.9100 #### [facility] [address] [place], [address] Bilirubin [Mass/Vol] 0.70 mg/dL Normal 0.00-1.30 [facility] Comment on above: Performed By: #### L 505.5000, L100.0100, L500.4050, L300.3900, L501.9100 #### [facility] [address] [place], [address] BUN/CRE 17.7 RATIO Normal 10-20 [facility] Comment on above: Performed By: #### L 505.5000, L100.0100, L500.4050, L300.3900, L501.9100 #### [facility] [address] [place], [address] Calcium [Mass/Vol] 8.6 mg/dL Normal 7.6-11.0 [facility] Comment on above: Performed By: #### L 505.5000, L100.0100, L500.4050, L300.3900, L501.9100 #### [facility] [address] [place], [address] Chloride [Moles/Vol] 105 mmol/L Normal 98-108 [facility] Comment on above: Performed By: #### L 505.5000, L100.0100, L500.4050, L300.3900, L501.9100 #### [facility] [address] [place], [address] CO2 [Moles/Vol] 24.4 mmol/L Normal 21.0-32.0 [facility] Comment on above: Performed By: #### L 505.5000, L100.0100, L500.4050, L300.3900, L501.9100 #### [facility] [address] [place], [address] Creatinine [Mass/Vol] 0.60 mg/dL Low 0.70-1.20 [facility] Comment on above: Performed By: #### L 505.5000, L100.0100, L500.4050, L300.3900, L501.9100 #### [facility] [address] [place], [address] ECRCL 104.17 ml/min Normal 50-250 [facility] Comment on above: Performed By: #### L 505.5000, L100.0100, L500.4050, L300.3900, L501.9100 #### [facility] [address] [place], [address] GAP 9 Normal 5-15 [facility] Comment on above: Performed By: #### L 505.5000, L100.0100, L500.4050, L300.3900, L501.9100 #### [facility] [address] [place], [address] GFR/1.73 sq M.predicted among non-blacks MDRD (S/P/Bld) [Vol rate/Area] 103 mL/min/{1.73_m2} Normal >60 [facility] Comment on above: Result Comment: mL/m in/1.73m2 CKD-EPI Creatinine Equation (2020) Performed By: #### L 505.5000, L100.0100, L500.4050, L300.3900, L501.9100 #### [facility] [address] [place], [address] Globulin (S) [Mass/Vol] 2.0 g/dL Low 2.2-4.2 [facility] Comment on above: Performed By: #### L 505.5000, L100.0100, L500.4050, L300.3900, L501.9100 #### [facility] [address] [place], [address] Glucose [Mass/Vol] 108 mg/dL High 70-99 [facility] Comment on above: Performed By: #### L 505.5000, L100.0100, L500.4050, L300.3900, L501.9100 #### [facility] [address] [place], [address] Potassium [Moles/Vol] 3.6 mmol/L Normal 3.3-5.1 [facility] Comment on above: Performed By: #### L 505.5000, L100.0100, L500.4050, L300.3900, L501.9100 #### [facility] [address] [place], [address] Sodium [Moles/Vol] 138 mmol/L Normal 133-145 [facility] Comment on above: Performed By: #### L 505.5000, L100.0100, L500.4050, L300.3900, L501.9100 #### [facility] [address] [place], [address] T PROT 5.5 g/dL Low 5.9-8.4 [facility] Comment on above: Performed By: #### L 505.5000, L100.0100, L500.4050, L300.3900, L501.9100 #### [facility] [address] [place], [address] Urea nitrogen [Mass/Vol] 11 mg/dL Normal 4-19 [facility] Comment on above: Performed By: #### L 505.5000, L100.0100, L500.4050, L300.3900, L501.9100 #### [facility] [address] [place], [address] Phosphoruson 03-06-2025 Phosphate [Mass/Vol] 3.8 mg/dL Normal 2.7-4.5 [facility] Comment on above: Performed By: #### L 505.5000, L100.0100, L500.4050, L300.3900, L501.9100 #### [facility] [address] [place], [address] Alcohol, Blood (Medical)-Ser [facility] 03-05-2025 SERUM ETOH 38.6 mg/dL High <=10.0 [facility] Comment on above: Result Comment: This test is for medical purposes only. The legal definition of intoxication varies according to local law. Performed By: #### L 505.5000, L100.0100, L500.4050, L300.3900, L501.9100 #### [facility] [address] [place], [address] CBC W/Diff, [facility] 02-21 Absolute Lymph 2.60 X10 3/uL Normal 0.83-4.51 [facility] Comment on above: Performed By: #### L 505.5000, L100.0100, L500.4050, L300.3900, L501.9100 #### [facility] [address] [place], [address] Absolute Neut 3.9 X10 3/uL Normal 2.0-7.7 [facility] Comment on above: Performed By: #### L 505.5000, L100.0100, L500.4050, L300.3900, L501.9100 #### [facility] [address] [place], [address] Basophils/100 WBC (Bld) 0.8 % Normal 0-1 [facility] Comment on above: Performed By: #### L 505.5000, L100.0100, L500.4050, L300.3900, L501.9100 #### [facility] [address] [place], [address] Eosinophils/100 WBC (Bld) 4.2 % Normal 0-5 [facility] Comment on above: Performed By: #### L 505.5000, L100.0100, L500.4050, L300.3900, L501.9100 #### [facility] [address] [place], [address] Erythrocyte distribution width (RBC) [Ratio] 13.4 % Normal 11.6-14.6 [facility] Comment on above: Performed By: #### L 505.5000, L100.0100, L500.4050, L300.3900, L501.9100 #### [facility] [address] [place], [address] Hematocrit (Bld) [Volume fraction] 45.2 % Normal 37-47 [facility] Comment on above: Performed By: #### L 505.5000, L100.0100, L500.4050, L300.3900, L501.9100 #### [facility] [address] [place], [address] Hemoglobin (Bld) [Mass/Vol] 15.7 g/dL High 12.0-15.0 [facility] Comment on above: Performed By: #### L 505.5000, L100.0100, L500.4050, L300.3900, L501.9100 #### [facility] [address] [place], [address] IG% 0.300 Normal 0.0-0.9 [facility] Comment on above: Result Comment: IG% - Immature Granulocytes (promyelocytes, myelocytes and metamyelocytes) > 1% indicates that a LEFT SHIFT is Present. Performed By: #### L 505.5000, L100.0100, L500.4050, L300.3900, L501.9100 #### [facility] [address] [place], [address] Lymphocytes/100 WBC (Bld) 35.1 % Normal 19-41 [facility] Comment on above: Performed By: #### L 505.5000, L100.0100, L500.4050, L300.3900, L501.9100 #### [facility] [address] [place], [address] MCH (RBC) [Entitic mass] 33.0 pg High 27.0-32.0 [facility] Comment on above: Performed By: #### L 505.5000, L100.0100, L500.4050, L300.3900, L501.9100 #### [facility] [address] [place], [address] MCHC (RBC) [Mass/Vol] 34.7 g/dL Normal 32-36 [facility] Comment on above: Performed By: #### L 505.5000, L100.0100, L500.4050, L300.3900, L501.9100 #### [facility] [address] [place], [address] MCV (RBC) [Entitic vol] 95.0 fL Normal 81-99 [facility] Comment on above: Performed By: #### L 505.5000, L100.0100, L500.4050, L300.3900, L501.9100 #### [facility] [address] [place], [address] Monocytes/100 WBC (Bld) 6.8 % Normal 0-10 [facility] Comment on above: Performed By: #### L 505.5000, L100.0100, L500.4050, L300.3900, L501.9100 #### [facility] [address] [place], [address] Neutrophils/100 WBC (Bld) 52.8 % Normal 47-70 [facility] Comment on above: Performed By: #### L 505.5000, L100.0100, L500.4050, L300.3900, L501.9100 #### [facility] [address] [place], [address] Nucleated RBC (Bld) [#/Vol] 0 10*3/uL Normal 0-5 [facility] Comment on above: Performed By: #### L 505.5000, L100.0100, L500.4050, L300.3900, L501.9100 #### [facility] [address] [place], [address] Platelet mean volume (Bld) [Entitic vol] 9.0 fL Normal 6.2-12.0 [facility] Comment on above: Performed By: #### L 505.5000, L100.0100, L500.4050, L300.3900, L501.9100 #### [facility] [address] [place], [address] Platelets (Bld) [#/Vol] 333 10*3/uL Normal 150-450 [facility] Comment on above: Performed By: #### L 505.5000, L100.0100, L500.4050, L300.3900, L501.9100 #### [facility] [address] [place], [address] RBC (Bld) [#/Vol] 4.76 10*6/uL Normal 4.2-5.4 [facility] Comment on above: Performed By: #### L 505.5000, L100.0100, L500.4050, L300.3900, L501.9100 #### [facility] [address] [place], [address] RDW SD 47.1 fl High 35.1-43.9 [facility] Comment on above: Performed By: #### L 505.5000, L100.0100, L500.4050, L300.3900, L501.9100 #### [facility] [address] [place], [address] WBC (Bld) [#/Vol] 7.4 10*3/uL Normal 4.4-11.0 [facility] Comment on above: Performed By: #### L 505.5000, L100.0100, L500.4050, L300.3900, L501.9100 #### [facility] [address] [place], [address] Comprehensive Metabolic Prof ilon 03-05-2025 Albumin [Mass/Vol] 4.3 g/dL Normal 3.5-5.0 [facility] Comment on above: Performed By: #### L 505.5000, L100.0100, L500.4050, L300.3900, L501.9100 #### [facility] [address] [place], [address] Albumin/Globulin [Mass ratio] 1.7 {ratio} Normal 0.9-2.4 [facility] Comment on above: Performed By: #### L 505.5000, L100.0100, L500.4050, L300.3900, L501.9100 #### [facility] [address] [place], [address] ALK PHOS 135 U/L High 35-104 [facility] Comment on above: Performed By: #### L 505.5000, L100.0100, L500.4050, L300.3900, L501.9100 #### [facility] [address] [place], [address] ALT [Catalytic activity/Vol] 18 U/L Normal <=34 [facility] Comment on above: Performed By: #### L 505.5000, L100.0100, L500.4050, L300.3900, L501.9100 #### [facility] [address] [place], [address] AST [Catalytic activity/Vol] 22 U/L Normal <=31 [facility] Comment on above: Performed By: #### L 505.5000, L100.0100, L500.4050, L300.3900, L501.9100 #### [facility] [address] [place], [address] Bilirubin [Mass/Vol] 0.48 mg/dL Normal 0.00-1.30 [facility] Comment on above: Performed By: #### L 505.5000, L100.0100, L500.4050, L300.3900, L501.9100 #### [facility] [address] [place], [address] BUN/CRE 10.6 RATIO Normal 10-20 [facility] Comment on above: Performed By: #### L 505.5000, L100.0100, L500.4050, L300.3900, L501.9100 #### [facility] [address] [place], [address] Calcium [Mass/Vol] 9.3 mg/dL Normal 7.6-11.0 [facility] Comment on above: Performed By: #### L 505.5000, L100.0100, L500.4050, L300.3900, L501.9100 #### [facility] [address] [place], [address] Chloride [Moles/Vol] 102 mmol/L Normal 98-108 [facility] Comment on above: Performed By: #### L 505.5000, L100.0100, L500.4050, L300.3900, L501.9100 #### [facility] [address] [place], [address] CO2 [Moles/Vol] 27.2 mmol/L Normal 21.0-32.0 [facility] Comment on above: Performed By: #### L 505.5000, L100.0100, L500.4050, L300.3900, L501.9100 #### [facility] [address] [place], [address] Creatinine [Mass/Vol] 0.60 mg/dL Low 0.70-1.20 [facility] Comment on above: Performed By: #### L 505.5000, L100.0100, L500.4050, L300.3900, L501.9100 #### [facility] [address] [place], [address] ECRCL 104.47 ml/min Normal 50-250 [facility] Comment on above: Performed By: #### L 505.5000, L100.0100, L500.4050, L300.3900, L501.9100 #### [facility] [address] [place], [address] GAP 12 Normal 5-15 [facility] Comment on above: Performed By: #### L 505.5000, L100.0100, L500.4050, L300.3900, L501.9100 #### [facility] [address] [place], [address] GFR/1.73 sq M.predicted among non-blacks MDRD (S/P/Bld) [Vol rate/Area] 103 mL/min/{1.73_m2} Normal >60 [facility] Comment on above: Result Comment: mL/m in/1.73m2 CKD-EPI Creatinine Equation (2020) Performed By: #### L 505.5000, L100.0100, L500.4050, L300.3900, L501.9100 #### [facility] [address] [place], [address] Globulin (S) [Mass/Vol] 2.6 g/dL Normal 2.2-4.2 [facility] Comment on above: Performed By: #### L 505.5000, L100.0100, L500.4050, L300.3900, L501.9100 #### [facility] [address] [place], [address] Glucose [Mass/Vol] 97 mg/dL Normal 70-99 [facility] Comment on above: Performed By: #### L 505.5000, L100.0100, L500.4050, L300.3900, L501.9100 #### [facility] [address] [place], [address] Potassium [Moles/Vol] 3.6 mmol/L Normal 3.3-5.1 [facility] Comment on above: Performed By: #### L 505.5000, L100.0100, L500.4050, L300.3900, L501.9100 #### [facility] [address] [place], [address] Sodium [Moles/Vol] 141 mmol/L Normal 133-145 [facility] Comment on above: Performed By: #### L 505.5000, L100.0100, L500.4050, L300.3900, L501.9100 #### [facility] [address] [place] [place], [address] T PROT 6.9 g/dL Normal 5.9-8.4 [facility] Comment on above: Performed By: #### L 505.5000, L100.0100, L500.4050, L300.3900, L501.9100 #### [facility] [address] [place], [address] Urea nitrogen [Mass/Vol] 6 mg/dL Normal 4-19 [facility] Comment on above: Performed By: #### L 505.5000, L100.0100, L500.4050, L300.3900, L501.9100 #### [facility] [address] [place] [place], [address] Emergency Department Summary on 03-05-2025 Emergency Department Summary [facility] Medical Records Department [address] [place] [address] Emergency Department Summary 03/05/25 MR#: [id number] Acct: [id number] Name: KAMI WATTS Rep #: [id number] : 1965 59 From: Christian Montelongo DO PCP: Dr. Earnest Dueñas MD Status:ADM IN Location: [place]3 [id number] HPI History of Present Illness Chief Complaint: [...] today but she was babysitting her granddaughter. [facility] Medical History Alcohol use disorder Tobacco [...] Cardio regula (more content not included)... Normal [facility] [facility] Folates,Serum (Folic Acid)on 03-05-2025 FOLATES,SERUM 4.91 ng/mL Normal 4.60-34.80 [facility] Comment on above: Result Comment: Hemo lysis, Results will be affected, Requires Recollection. Performed By: #### L 505.5000, L100.0100, L500.4050, L300.3900, L501.9100 #### [facility] [address] [place], [address] H AND P Exam - Hospitaliston 03-05-2025 H&P Exam - Hospitalist [facility] Medical Records Department [address] [place] [address] H P Exam - Hospitalist 03/05/252123 MR#: [id number] Acct: [id number] Name: KAMI WATTS Rep #: [id number] : 1965 59 From: Jeffry Cortez DO PCP: Dr. Earnest Dueñas MD Status:ADM IN [place] [facility] [id number] [facility] - General General Date of Admission: 03/05/25 Date of [...] detox who now once again re-presents to [facility] ER complaining of wanting help [...] is expected to extend beyond 2 midnights. [facility] Medical History Alcohol use disorder Tobacco [...] animals: cat(s) (more content not included)... Normal [facility] Magnesiumon 03-05-2025 Magnesium [Mass/Vol] 1.8 mg/dL Normal 1.5-2.2 [facility] Comment on above: Performed By: #### L 505.5000, L100.0100, L500.4050, L300.3900, L501.9100 #### [facility] [address] [place], [place], [id number] Prothrombin Time w/INRon INR Coag (PPP) [Relative time] 1.1 {INR} Normal [facility] Comment on above: Performed By: #### L 505.5000, L100.0100, L500.4050, L300.3900, L501.9100 #### [facility] [address] [place], [address] PT Coag (PPP) [Time] 13.9 s Normal 11.7-14.9 [facility] Comment on above: Performed By: #### L 505.5000, L100.0100, L500.4050, L300.3900, L501.9100 #### [facility] [address] [place], [place], [address] Thyroid Stim Hormone (TSH)on 03-05-2025 TSH 0.908 uIU/mL Normal 0.300-4.200 [facility] Comment on above: Order Comment: *ADD ON SY1 1 L* Performed By: #### L 505.5000, L100.0100, L500.4050, L300.3900, L501.9100 #### [facility] [address] [place], [address] Urine Drug Screen (VISTA)on 03-05-2025 AMPHETAMINES Negative Normal <1000 ng/mL [facility] Comment on above: Performed By: #### L 505.5000, L100.0100, L500.4050, L300.3900, L501.9100 #### [facility] [address] [place], [address] BARBITIURATES Negative Normal < 200 ng/mL [facility] Comment on above: Performed By: #### L 505.5000, L100.0100, L500.4050, L300.3900, L501.9100 #### [facility] [address] [place], [place], [id number] ([address] BENZODIAZIPINE Negative Normal < 200 ng/mL [facility] Comment on above: Performed By: #### L 505.5000, L100.0100, L500.4050, L300.3900, L501.9100 #### [facility] [address] [place], [address] BUP Ur Drug Scr Positive Normal < 200 ng/mL [facility] Comment on above: Result Comment: If c onfirmation testing is needed, a separate order will be required to send out testing to the reference laboratory. Performed By: #### L 505.5000, L100.0100, L500.4050, L300.3900, L501.9100 #### [facility] [address] [place], [place], [address] COCAINE Negative Normal < 300 ng/mL [facility] Comment on above: Performed By: #### L 505.5000, L100.0100, L500.4050, L300.3900, L501.9100 #### [facility] [address] [place], [address] Fentanyl Negative Normal [facility] Comment on above: Performed By: #### L 505.5000, L100.0100, L500.4050, L300.3900, L501.9100 #### [facility] [address] [place], [address] METHADONE Negative Normal < 300 ng/mL [facility] Comment on above: Performed By: #### L 505.5000, L100.0100, L500.4050, L300.3900, L501.9100 #### [facility] [address] [place], [place], [facility] OPIATES Negative Normal < 300 ng/mL [facility] Comment on above: Performed By: #### L 505.5000, L100.0100, L500.4050, L300.3900, L501.9100 #### [facility] [address] [place], [address] OXYCODONE Negative Normal < 100 ng/mL [facility] Comment on above: Performed By: #### L 505.5000, L100.0100, L500.4050, L300.3900, L501.9100 #### [facility] [address] [place], [address] PCP Negative Normal < 25 ng/mL [facility] Comment on above: Performed By: #### L 505.5000, L100.0100, L500.4050, L300.3900, L501.9100 #### [facility] [address] [place], [address] THC Negative Normal < 50 ng/mL [facility] Comment on above: Performed By: #### L 505.5000, L100.0100, L500.4050, L300.3900, L501.9100 #### [facility] [address] [place], [address] Vitamin B12on 03-05-2025 Cobalamin (Vitamin B12) [Mass/Vol] 615 pg/mL Normal 180-914 [facility] Comment on above: Order Comment: *ADD ON SY1 1 L* Performed By: #### L 505.5000, L100.0100, L500.4050, L300.3900, L501.9100 #### [facility] [address] [place], [address] 25(OH)D3 SerPl-mCncon 2024 25-hydroxyvitamin D3 [Mass/Vol] 18.5 ng/mL Low 31.0-80.0 [facility] Comment on above: Order Comment: Speci men Type: BLOOD SPECIMENOrdering Facility: [facility] Address: [address] [place] [address] Result Comment: Clas sification of 25 [place] Vitamin D status: Deficiency/Insufficiency: < or = 30 ng/ml. Sufficiency/Optimal Levels: 31-80 ng/mL Toxicity: > 100 ng/mL. Test performed by chemiluminescent immunoassay. Performed By: #### 1 989-3 ####[facility] LABCLIA [id number] [place] [address] [place] CNOVon 02-28-2025 CNOV Office Visit (ISAÍASPWS ) KAMI WATTS ([id number]) 1965 F NFR Date Time Provider Department 02/28/25 11:20 AM JOAN TALLEY During your visit today, we recorded the following information about you: Pulse Blood pressure Weight 83/minute 145/96 86 kg Joan Talley, LAUREN.PRODUCT FINISHER 02/28/2025 11:56 AM Signed Chief Complaint Patient [...] Disease Mother Hypertension Mother Hearing Loss Father DE/ colon cancer Stroke Father Diabetes Father Hypertension Father Aneurysm Father Coronary Artery Disease Maternal Grandmother Hypertension Maternal Grandmother Ischemic Heart Disease Maternal Grandfather Hypertension Paternal Grandmother Coronary Artery Disease Paternal Grandmother Coronary Artery Disease Paternal Grandfather Cancer Sister CERVICAL/colon cancer Cancer Paternal Aunt DOESN'T KNOW TYPE Heart Brother DE Hypertension Daughter Colon Cancer Brother Patient Allergies [...] Used Substance (more content not included)... Normal [facility] HbA1c (Bld)on 02-28-2025 Average glucose Estimated from glycated hemoglobin (Bld) [Mass/Vol] 105 mg/dL Normal [facility] Comment on above: Order Comment: Marcus fernandes Type: BLOOD SPECIMENOrdering Facility: [facility] Address: [address] [place] [address] Result Comment: eAG: (Estimated average glucose) is a calculated value from HgbA1c and is provider relations representative of the average blood glucose level in the last 2-3 month period. Performed By: #### 5 5454-3 ####[facility] LABCLIA [id number] [place] [address] [place] [facility] HbA1c (Bld) [Mass fraction] 5.3 % Normal 4.3-5.6 [facility] Comment on above: Order Comment: Marcus fernandes Type: BLOOD SPECIMENOrdering Facility: [facility] Address: [address] [place] [address] Result Comment: Amer [place] Diabetes Association guidelines indicate that patients with HgbA1c in the range 5.7-6.4% are at increased risk for development of diabetes, and intervention by lifestyle modification may be beneficial. HgbA1c greater or equal to 6.5% is considered diagnostic of diabetes. Performed By: #### 5 5454-3 ####[facility] LABCLIA [id number] [place] [address] [place] Magnesium SerPl-mCncon 02-28 Magnesium [Mass/Vol] 2.1 mg/dL Normal 1.7-2.3 [facility] Comment on above: Order Comment: Marcus fernandes Type: BLOOD SPECIMENOrdering Facility: [facility] Address: [address] [place] [address] Performed By: #### 2 132-9, 3016-3, 71643-3 ####[facility] LABCLIA [id number] [place] [address] [place] TSH SerPl-aCncon 02-28-2025 TSH Qn 0.564 m[IU]/L Normal 0.270-4.200 [facility] Comment on above: Order Comment: Speci men Type: BLOOD SPECIMENOrdering Facility: [facility] Address: [address] [place] [address] Performed By: #### 2 132-9, 3016-3, ####[facility] LABCLIA [id number] [address] OF [facility] Vit B12 SerPl-mCncon 025 Cobalamin (Vitamin B12) [Mass/Vol] 651 pg/mL Normal 232-1245 [facility] Comment on above: Order Comment: Speci men Type: BLOOD SPECIMENOrdering Facility: [facility] Address: [address] [place] [address] Performed By: #### 2 132-9, 3016-3, ####[facility] LABCLIA [id number] [address] [place] CNPFrances 02-22-2025 CNPN Telephone (FAMPWS) KAMI WATTS ([id number]) 1965 F NFR Date Time Provider Department 02/22/25 EARNEST DUEÑAS FAMPWS During your visit today, we recorded the following information about you: Fior Wheatley, PACO 02/22/2025 4:24 PM Signed Patient has Wellness appt with Joan Talley CNP on 02/28/25. Pt states she had external labs completed recently, ordered by an online therapy company called [employer]. that works with suboxone therapy. Pt states [...] Status:Closed by JOAN TALLEY on 02/23/25 Normal [facility] HCV RNA KALI+probe Qnon 02-21 HCV RNA KALI+probe Ql Not detected Normal Not detected [facility] Comment on above: Order Comment: Speci men Type: BLOOD SPECIMENOrdering Facility: External Submitter Address: , , Performed By: #### 1 1011-4 ####[facility] [id number] [address] STATES OF [facility] CBC W Auto Differential pane l (Bld)on 02-16-2025 Basophils (Bld) [#/Vol] 0.04 10*3/uL Normal <0.11 [facility] Comment on above: Order Comment: Speci men Type: BLOOD SPECIMENOrdering Facility: External Submitter Address: , , Performed By: #### 5 7021-8 ####[facility] [id number] [address] STATES OF [facility] Basophils/100 WBC (Bld) 0.5 % Normal [facility] Comment on above: Order Comment: Speci men Type: BLOOD SPECIMENOrdering Facility: External Submitter Address: , , Performed By: #### 5 7021-8 ####[facility] LABIA [id number] [address] STATES OF [facility] Differential cell count method Nom (Bld) Auto Normal [facility] Comment on above: Order Comment: Speci men Type: BLOOD SPECIMENOrdering Facility: External Submitter Address: , , Performed By: #### 5 7021-8 ####[facility] LABIA [id number] [place] [address] [place] Eosinophils (Bld) [#/Vol] 0.18 10*3/uL Normal <0.46 [facility] Comment on above: Order Comment: Speci men Type: BLOOD SPECIMENOrdering Facility: External Submitter Address: , , Performed By: #### 5 7021-8 ####[facility] LABCLIA [id number] [facility] [address] [place] [address] [place] Eosinophils/100 WBC (Bld) 2.3 % Normal [facility] Comment on above: Order Comment: Speci men Type: BLOOD SPECIMENOrdering Facility: External Submitter Address: , , Performed By: #### 5 7021-8 ####[facility] LABCLIA [id number] [facility] [address] [place] [address] [place] Erythrocyte distribution width (RBC) [Ratio] 13.2 % Normal 11.5-15.0 [facility] Comment on above: Order Comment: Speci men Type: BLOOD SPECIMENOrdering Facility: External Submitter Address: , , Performed By: #### 5 7021-8 ####[facility] LABCLIA [id number] [facility] [address] [place] [address] [place] Hematocrit (Bld) [Volume fraction] 43.8 % Normal 36.0-46.0 [facility] Comment on above: Order Comment: Speci men Type: BLOOD SPECIMENOrdering Facility: External Submitter Address: , , Performed By: #### 5 7021-8 ####[facility] LABCLIA [id number] [facility] [address] [place] [address] [place] Hemoglobin (Bld) [Mass/Vol] 14.6 g/dL Normal 11.5-15.5 [facility] Comment on above: Order Comment: Speci men Type: BLOOD SPECIMENOrdering Facility: External Submitter Address: , , Performed By: #### 5 7021-8 ####[facility] LABCLIA [id number] [facility] [address] [place] [address] [place] Immature granulocytes (Bld) [#/Vol] 10*3/uL Normal <0.10 [facility] Comment on above: Order Comment: Speci men Type: BLOOD SPECIMENOrdering Facility: External Submitter Address: , , Performed By: #### 5 7021-8 ####[facility] LABCLIA [id number] [facility] [address] [place] [address] [place] [facility] Immature granulocytes/100 WBC (Bld) 0.3 % Normal [facility] Comment on above: Order Comment: Speci men Type: BLOOD SPECIMENOrdering Facility: External Submitter Address: , , Performed By: #### 5 7021-8 ####[facility] LABCLIA [id number] [address] [place] [address] [facility] Lymphocytes (Bld) [#/Vol] 1.89 10*3/uL Normal 1.00-4.00 [facility] Comment on above: Order Comment: Speci men Type: BLOOD SPECIMENOrdering Facility: External Submitter Address: , , Performed By: #### 5 7021-8 ####[facility] LABCLIA [id number] [facility] [address] [place] [address] [place] [facility] Lymphocytes/100 WBC (Bld) 24.3 % Normal [facility] Comment on above: Order Comment: Speci men Type: BLOOD SPECIMENOrdering Facility: External Submitter Address: , , Performed By: #### 5 7021-8 ####[facility] LABCLIA [id number] [address] [place] [address] [place] MCH (RBC) [Entitic mass] 31.9 pg Normal 26.0-34.0 [facility] Comment on above: Order Comment: Speci men Type: BLOOD SPECIMENOrdering Facility: External Submitter Address: , , Performed By: #### 5 7021-8 ####[facility] LABCLIA [id number] [facility] [address] [place] [address] [place] MCHC (RBC) [Mass/Vol] 33.3 g/dL Normal 30.5-36.0 [facility] Comment on above: Order Comment: Speci men Type: BLOOD SPECIMENOrdering Facility: External Submitter Address: , , Performed By: #### 5 7021-8 ####[facility] LABCLIA [id number] [address] [place] [address] [place] MCV (RBC) [Entitic vol] 95.8 fL Normal 80.0-100.0 [facility] Comment on above: Order Comment: Speci men Type: BLOOD SPECIMENOrdering Facility: External Submitter Address: , , Performed By: #### 5 7021-8 ####[facility] LABCLIA [id number] [address] [place] [address] [place] Monocytes (Bld) [#/Vol] 0.47 10*3/uL Normal <0.87 [facility] Comment on above: Order Comment: Speci men Type: BLOOD SPECIMENOrdering Facility: External Submitter Address: , , Performed By: #### 5 7021-8 ####[facility] LABCLIA [id number] [address] [place] [address] [place] Monocytes/100 WBC (Bld) 6.0 % Normal [facility] Comment on above: Order Comment: Speci men Type: BLOOD SPECIMENOrdering Facility: External Submitter Address: , , Performed By: #### 5 7021-8 ####[facility] LABCLIA [id number] [address] [place] [address] [place] Neutrophils (Bld) [#/Vol] 5.18 10*3/uL Normal 1.45-7.50 [facility] Comment on above: Order Comment: Speci men Type: BLOOD SPECIMENOrdering Facility: External Submitter Address: , , Performed By: #### 5 7021-8 ####[facility] LABCLIA [id number] [facility] [address] [place] [address] [place] Neutrophils/100 WBC (Bld) 66.6 % Normal [facility] Comment on above: Order Comment: Speci men Type: BLOOD SPECIMENOrdering Facility: External Submitter Address: , , Performed By: #### 5 7021-8 ####[facility] LABCLIA [id number] [address] [place] [address] [facility] [place] Nucleated RBC (Bld) [#/Vol] 10*3/uL Normal <0.01 [facility] Comment on above: Order Comment: Speci men Type: BLOOD SPECIMENOrdering Facility: External Submitter Address: , , Performed By: #### 5 7021-8 ####[facility] LABCLIA [id number] [address], [facility] Nucleated RBC/100 WBC (Bld) [Ratio] 0.0 /100 WBC Normal [facility] Comment on above: Order Comment: Speci men Type: BLOOD SPECIMENOrdering Facility: External Submitter Address: , , Performed By: #### 5 7021-8 ####[facility] LABCLIA [id number] [address] [place] [address] [place] Platelet mean volume (Bld) [Entitic vol] 9.8 fL Normal 9.0-12.7 [facility] Comment on above: Order Comment: Speci men Type: BLOOD SPECIMENOrdering Facility: External Submitter Address: , , Performed By: #### 5 7021-8 ####[facility] LABCLIA [id number] [address] [place] [address] [place] Platelets (Bld) [#/Vol] 335 10*3/uL Normal 150-400 [facility] Comment on above: Order Comment: Speci men Type: BLOOD SPECIMENOrdering Facility: External Submitter Address: , , Performed By: #### 5 7021-8 ####[facility] LABCLIA [id number] [address] [place] [address] [place] RBC (Bld) [#/Vol] 4.57 10*6/uL Normal 3.90-5.20 [facility] Comment on above: Order Comment: Speci men Type: BLOOD SPECIMENOrdering Facility: External Submitter Address: , , Performed By: #### 5 7021-8 ####[facility] LABCLIA [id number] [address] [place] OF [facility] WBC (Bld) [#/Vol] 7.78 10*3/uL Normal 3.70-11.00 [facility] Comment on above: Order Comment: Speci men Type: BLOOD SPECIMENOrdering Facility: External Submitter Address: , , Performed By: #### 5 7021-8 ####[facility] LABCLIA [id number] [place] [address] [place] Comprehensive metabolic 2000 panelon 02-16-2025 Albumin [Mass/Vol] 4.1 g/dL Normal 3.9-4.9 [facility] Comment on above: Order Comment: Speci men Type: BLOOD SPECIMENOrdering Facility: External Submitter Address: , , Performed By: #### 2 4323-8 ####[facility]ORYCL[facility] [id number] [place] [address] [place] ALP [Catalytic activity/Vol] 161 U/L High 34-123 [facility] Comment on above: Order Comment: Speci men Type: BLOOD SPECIMENOrdering Facility: External Submitter Address: , , Performed By: #### 2 4323-8 ####[facility]ORYCL[facility] [id number] [address] [place] ALT [Catalytic activity/Vol] 15 U/L Normal 7-38 [facility] Comment on above: Order Comment: Speci men Type: BLOOD SPECIMENOrdering Facility: External Submitter Address: , , Performed By: #### 2 4323-8 ####[facility] [id number] [address] [place] Anion gap [Moles/Vol] 14 mmol/L Normal 8-15 [facility] Comment on above: Order Comment: Speci men Type: BLOOD SPECIMENOrdering Facility: External Submitter Address: , , Performed By: #### 2 4323-8 ####[facility]ORYCLIA [id number] [place] [address] [place] AST [Catalytic activity/Vol] 23 U/L Normal 13-35 [facility] Comment on above: Order Comment: Speci men Type: BLOOD SPECIMENOrdering Facility: External Submitter Address: , , Performed By: #### 2 4323-8 ####[facility]ORYCL[facility] [id number] [place] [address] [place] Bilirubin [Mass/Vol] 0.7 mg/dL Normal 0.2-1.3 [facility] Comment on above: Order Comment: Speci men Type: BLOOD SPECIMENOrdering Facility: External Submitter Address: , , Performed By: #### 2 4323-8 ####[facility]ORYCLIA [id number] [place] [address] [place] Calcium [Mass/Vol] 9.7 mg/dL Normal 8.5-10.2 [facility] Comment on above: Order Comment: Speci men Type: BLOOD SPECIMENOrdering Facility: External Submitter Address: , , Performed By: #### 2 4323-8 ####[facility]ORY[facility] [id number] [place] [address] [place] Chloride [Moles/Vol] 101 mmol/L Normal 98-107 [facility] Comment on above: Order Comment: Speci men Type: BLOOD SPECIMENOrdering Facility: External Submitter Address: , , Performed By: #### 2 4323-8 ####[facility]ORYCLIA [id number] [place] [address] [place] CO2 [Moles/Vol] 26 mmol/L Normal 22-30 [facility] Comment on above: Order Comment: Speci men Type: BLOOD SPECIMENOrdering Facility: External Submitter Address: , , Performed By: #### 2 4323-8 ####[facility]ORY[facility] [id number] [place] [address] [place] Creatinine [Mass/Vol] 0.60 mg/dL Normal 0.58-0.96 [facility] Comment on above: Order Comment: Marcus fernandes Type: BLOOD SPECIMENOrdering Facility: External Submitter Address: , , Performed By: #### 2 4323-8 ####[facility]ORY[facility] [id number] [address] Creatinine and Glomerular filtration rate.predicted panel (S/P/Bld) 104 mL/min/1.73m??? Normal >=60 [facility] Comment on above: Order Comment: Marcus [...] Performed By: #### 2 4323-8 ####[facility]ATORYIA [id number] [place] [address] [place] Glucose [Mass/Vol] 94 mg/dL Normal 74-99 [facility] Comment on above: Order Comment: Marcus fernandes Type: BLOOD SPECIMENOrdering Facility: External Submitter Address: , , Result Comment: The [place] Diabetes Association (ADA) provides guidance for cutoff [...] Standards of Medical Care in Diabetes 2016, [place] Diabetes Association. Diabetes Care. 2016.39(Suppl 1). Performed By: #### 2 4323-8 ####[facility]ORY[facility]IA [id number] [address] [place] Potassium [Moles/Vol] 4.4 mmol/L Normal 3.7-5.1 [facility] Comment on above: Order Comment: Speci men Type: BLOOD SPECIMENOrdering Facility: External Submitter Address: , , Performed By: #### 2 4323-8 ####[facility] LABORATORYCLIA [id number] [place] [address] [place] Protein [Mass/Vol] 7.2 g/dL Normal 6.3-8.0 [facility] Comment on above: Order Comment: Speci men Type: BLOOD SPECIMENOrdering Facility: External Submitter Address: , , Performed By: #### 2 4323-8 ####[facility] LABORATORYCLIA [id number] [place] [address] [place] Sodium [Moles/Vol] 141 mmol/L Normal 136-144 [facility] Comment on above: Order Comment: Speci men Type: BLOOD SPECIMENOrdering Facility: External Submitter Address: , , Performed By: #### 2 4323-8 ####[facility] LABORATORYCLIA [id number] [address] STATES OF [facility] Urea nitrogen [Mass/Vol] 10 mg/dL Normal 7-21 [facility] Comment on above: Order Comment: Speci men Type: BLOOD SPECIMENOrdering Facility: External Submitter Address: , , Performed By: #### 2 4323-8 ####[facility] LABORATORYCLIA [id number] [address] STATES OF [place] HAV IgM Ser Qlon 02-16-2025 HAV IgM Ql (S) Negative Normal Negative [facility] Comment on above: Order Comment: Speci dena Type: BLOOD SPECIMENOrdering Facility: External Submitter Address: , , Result Comment: No e vidence of recent infection with Hepatitis A virus. Performed By: #### 2 2314-9, AHAVG ####[facility] LABCLIA [id number] [address] [place] [address] OF [place] HBV core Ab Ser Qlon 025 HBV core Ab Ql (S) Positive Abnormal Negative [facility] Comment on above: Order Comment: Speci men Type: BLOOD SPECIMENOrdering Facility: External Submitter Address: , , Result Comment: The result suggests either current or past infection with Hepatitis B virus. Non-specific reactivity may at times be seen with this test due to some underlying phenomena. Please correlate with HBsAg result and medical history. Performed By: #### 2 2322-2, 5195-3, 40935-0, 27773-6 ####[facility] LABIA [id number] [address] HBV surface Ab Ql (S)on 01-22 HBV surface Ab Qn (S) >1000.00 Normal [facility] Comment on above: Order Comment: Speci men Type: BLOOD SPECIMENOrdering Facility: External Submitter Address: , , Result Comment: <8 m IU/mL: No serological evidence of immunity to Hepatitis B Virus. >/= 8 to <12 mIU/mL: No serological evidence of immunity to Hepatitis B Virus. >/= 12 mIU/mL: Consistent with serological evidence of immunity to Hepatitis B Virus. Performed By: #### 2 2322-2, 5195-3, 96462-6, 33418-2 ####[facility] LABCLIA [id number] [place] [address] [facility] HBV surface Ab Ser Qlon 01-22 HBV surface Ab Ql (S) Positive Normal [facility] Comment on above: Order Comment: Speci men Type: BLOOD SPECIMENOrdering Facility: External Submitter Address: , , Result Comment: Cons istent with serological evidence of immunity to Hepatitis B Virus. Performed By: #### 2 2322-2, 5195-3, 53424-9, 99792-1 ####[facility] LABCLIA [id number] [address] OF [place] HBV surface Ag Ser Qlon 01-22 HBV surface Ag Ql (S) Negative Normal Negative [facility] Comment on above: Order Comment: Speci men Type: BLOOD SPECIMENOrdering Facility: External Submitter Address: , , Performed By: #### 2 2322-2, 5195-3, 44185-4, 18393-8 ####[facility] LABCLIA [id number] [address] OF [place] HCV Ab Ser Qlon 02-16-2025 HCV Ab Ql (S) Positive Abnormal Negative [facility] Comment on above: Order Comment: Speci men Type: BLOOD SPECIMENOrdering Facility: External Submitter Address: , , Performed By: #### 1 6128-1 ####[facility] LABIA [id number] [address] OF [place] HEPATITIS A ANTIBODY, IGGon 02-16-2025 HAV IgG Ql (S) Positive Normal [facility] Comment on above: Order Comment: Speci men Type: BLOOD SPECIMENOrdering Facility: External Submitter Address: , , Result Comment: This result suggests recent or past exposure to hepatitis A virus or hepatitis A vaccination. Clinical correlation required. Performed By: #### 2 2314-9, AHAVG ####[facility] LABIA [id number] [address] OF [place] HIV 1+2 Ab IA Qlon HIV 1 and 2 Ab IA.rapid Nom (S/P/Bld) Normal [facility] Comment on above: Order Comment: Speci men Type: BLOOD SPECIMENOrdering Facility: External Submitter Address: , , Result Comment: Test not indicated. Performed By: #### 2 2322-2, 5-3, 06996-7, 12554-4 ####[facility] LABCLIA [id number] [address], [address] OF [place] HIV 1+2 Ab+HIV1 p24 Ag IA Ql Non-Reactive Normal Nonreactive [facility] Comment on above: Order Comment: Speci men Type: BLOOD SPECIMENOrdering Facility: External Submitter Address: , , Performed By: #### 2 2322-2, 5195-3, 45514-6, 73230-9 ####[facility] LABCLIA [id number] [place] [address] [place] HIV immunoassay testing algorithm interpretation (S/P/Bld) [Interp] Normal [facility] Comment on above: Order Comment: Speci men Type: BLOOD SPECIMENOrdering Facility: External Submitter Address: , , Result Comment: No e vidence of HIV-1 or HIV-2 infection. Should recent infection be suspected, repeat testing may be considered 2-3 weeks after this draw. [place] Rev. Code 3701.243(E): This information has been [...] test results or diagnoses. Performed By: #### 2 2322-2, 5195-3, 09196-3, 85482-4 ####[facility] LABIA [id number] [address] [address] [place] Alcohol, Blood (Medical)-Ser umon 11-10-2024 SERUM ETOH 89.0 mg/dL Normal [facility] Comment on above: Result Comment: The serum:whole blood ethanol ratio is approximately 1.14 and varies slightly with hematocrit. Medical Alcohol reference interval and critical value in non-tolerant individuals; 50 - 100 Impairment 100 Intoxication 100 - 250 Severe Poisoning 250 - 400 Deep/possible fatal coma Performed By: #### L 505.5000, L100.0100, L500.4050, L300.3900, L501.9100 #### [facility] [address] [place], [address] Basic Metabolic Profile (BMP )on 11-10-2024 BUN/CRE 18.1 RATIO Normal 10-20 [facility] Comment on above: Performed By: #### L 505.5000, L100.0100, L500.4050, L300.3900, L501.9100 #### [facility] [address] [place], [address] CA,Total 8.9 mg/dL Normal 8.5-10.1 [facility] Comment on above: Performed By: #### L 505.5000, L100.0100, L500.4050, L300.3900, L501.9100 #### [facility] [address] [place], [address] Chloride [Moles/Vol] 108 mmol/L High 98-107 [facility] Comment on above: Performed By: #### L 505.5000, L100.0100, L500.4050, L300.3900, L501.9100 #### [facility] [address] [place], [address] CO2 [Moles/Vol] 27.0 mmol/L Normal 21.0-32.0 [facility] Comment on above: Performed By: #### L 505.5000, L100.0100, L500.4050, L300.3900, L501.9100 #### [facility] [address] [place], [address] Creatinine [Mass/Vol] 0.55 mg/dL Normal 0.55-1.02 [facility] Comment on above: Result Comment: The validity of the calculated GFR GFRAA in patients over 70 years has not been determined. Clinical correlation is essential. Performed By: #### L 505.5000, L100.0100, L500.4050, L300.3900, L501.9100 #### [facility] [address] [place], [address] ECRCL 108.29 ml/min Normal [facility] Comment on above: Performed By: #### L 505.5000, L100.0100, L500.4050, L300.3900, L501.9100 #### [facility] [address] [place], [address] EST GFR - AA 144 mL/min Normal >60 [facility] Comment on above: Result Comment: Afri can Chadian GFR Calc Performed By: #### L 505.5000, L100.0100, L500.4050, L300.3900, L501.9100 #### [facility] [address] [place], [address] GAP 5 Normal 5-15 [facility] Comment on above: Performed By: #### L 505.5000, L100.0100, L500.4050, L300.3900, L501.9100 #### [facility] [address] [place], [address] GFR/1.73 sq M.predicted among non-blacks MDRD (S/P/Bld) [Vol rate/Area] 119 mL/min/{1.73_m2} Normal >60 [facility] Comment on above: Result Comment: Non- GFR Calc Performed By: #### L 505.5000, L100.0100, L500.4050, L300.3900, L501.9100 #### [facility] [address] [place], [address] Glucose [Mass/Vol] 108 mg/dL High 74-106 [facility] Comment on above: Result Comment: Fast ing Glucose result from 100 to 125 mg/dL suggests IMPAIRED HOMEOSTASIS per A.D.A. criteria. Performed By: #### L 505.5000, L100.0100, L500.4050, L300.3900, L501.9100 #### [facility] [address] [place], [address] Potassium [Moles/Vol] 3.8 mmol/L Normal 3.5-5.1 [facility] Comment on above: Performed By: #### L 505.5000, L100.0100, L500.4050, L300.3900, L501.9100 #### [facility] [address] [place], [address] Sodium [Moles/Vol] 140 mmol/L Normal 136-145 [facility] Comment on above: Performed By: #### L 505.5000, L100.0100, L500.4050, L300.3900, L501.9100 #### [facility] [address] [place], [address] Urea nitrogen [Mass/Vol] 10 mg/dL Normal 7-18 [facility] Comment on above: Performed By: #### L 505.5000, L100.0100, L500.4050, L300.3900, L501.9100 #### [facility] [address] [place], [address] CBC W/Diff, Automatedon 12 Absolute Lymph 2.31 X10 3/uL Normal 0.83-4.51 [facility] Comment on above: Performed By: #### L 505.5000, L100.0100, L500.4050, L300.3900, L501.9100 #### [facility] [address] [place], [address] Absolute Neut 4.7 X10 3/uL Normal 2.0-7.7 [facility] Comment on above: Performed By: #### L 505.5000, L100.0100, L500.4050, L300.3900, L501.9100 #### [facility] [address] [place], [address] Basophils/100 WBC (Bld) 0.9 % Normal 0-1 [facility] Comment on above: Performed By: #### L 505.5000, L100.0100, L500.4050, L300.3900, L501.9100 #### [facility] [address] [place], [address] Eosinophils/100 WBC (Bld) 2.9 % Normal 0-5 [facility] Comment on above: Performed By: #### L 505.5000, L100.0100, L500.4050, L300.3900, L501.9100 #### [facility] [address] [facility] [address] Erythrocyte distribution width (RBC) [Ratio] 14.0 % Normal 11.6-14.6 [facility] Comment on above: Performed By: #### L 505.5000, L100.0100, L500.4050, L300.3900, L501.9100 #### [facility] [address] [place], [address] Hematocrit (Bld) [Volume fraction] 43.8 % Normal 37-47 [facility] Comment on above: Performed By: #### L 505.5000, L100.0100, L500.4050, L300.3900, L501.9100 #### [facility] [address] [place], [address] Hemoglobin (Bld) [Mass/Vol] 14.5 g/dL Normal 12.0-15.0 [facility] Comment on above: Performed By: #### L 505.5000, L100.0100, L500.4050, L300.3900, L501.9100 #### [facility] [address] [place], [address] IG% 0.300 Normal 0.0-0.9 [facility] Comment on above: Result Comment: IG% - Immature Granulocytes (promyelocytes, myelocytes and metamyelocytes) > 1% indicates that a LEFT SHIFT is Present. Performed By: #### L 505.5000, L100.0100, L500.4050, L300.3900, L501.9100 #### [facility] [address] [place], [address] Lymphocytes/100 WBC (Bld) 30.2 % Normal 19-41 [facility] Comment on above: Performed By: #### L 505.5000, L100.0100, L500.4050, L300.3900, L501.9100 #### [facility] [address] [place], [address] MCH (RBC) [Entitic mass] 31.9 pg Normal 27.0-32.0 [facility] Comment on above: Performed By: #### L 505.5000, L100.0100, L500.4050, L300.3900, L501.9100 #### [facility] [address] [place], [address] MCHC (RBC) [Mass/Vol] 33.1 g/dL Normal 32-36 [facility] Comment on above: Performed By: #### L 505.5000, L100.0100, L500.4050, L300.3900, L501.9100 #### [facility] [address] [place], [address] MCV (RBC) [Entitic vol] 96.5 fL Normal 81-99 [facility] Comment on above: Performed By: #### L 505.5000, L100.0100, L500.4050, L300.3900, L501.9100 #### [facility] [address] [place], [address] Monocytes/100 WBC (Bld) 4.8 % Normal 0-10 [facility] Comment on above: Performed By: #### L 505.5000, L100.0100, L500.4050, L300.3900, L501.9100 #### [facility] [address] [place], [address] Neutrophils/100 WBC (Bld) 60.9 % Normal 47-70 [facility] Comment on above: Performed By: #### L 505.5000, L100.0100, L500.4050, L300.3900, L501.9100 #### [facility] [address] [place], [address] Nucleated RBC (Bld) [#/Vol] 0 10*3/uL Normal 0-5 [facility] Comment on above: Performed By: #### L 505.5000, L100.0100, L500.4050, L300.3900, L501.9100 #### [facility] [address] [place], [address] Platelet mean volume (Bld) [Entitic vol] 9.1 fL Normal 6.2-12.0 [facility] Comment on above: Performed By: #### L 505.5000, L100.0100, L500.4050, L300.3900, L501.9100 #### [facility] [address] [place], [address] Platelets (Bld) [#/Vol] 337 10*3/uL Normal 150-450 [facility] Comment on above: Performed By: #### L 505.5000, L100.0100, L500.4050, L300.3900, L501.9100 #### [facility] [address] [place], [address] RBC (Bld) [#/Vol] 4.54 10*6/uL Normal 4.2-5.4 [facility] Comment on above: Performed By: #### L 505.5000, L100.0100, L500.4050, L300.3900, L501.9100 #### [facility] [address] [place], [address] RDW SD 49.7 fl High 35.1-43.9 [facility] Comment on above: Performed By: #### L 505.5000, L100.0100, L500.4050, L300.3900, L501.9100 #### [facility] [address] [place], [address] WBC (Bld) [#/Vol] 7.6 10*3/uL Normal 4.4-11.0 [facility] Comment on above: Performed By: #### L 505.5000, L100.0100, L500.4050, L300.3900, L501.9100 #### [facility] [address] [place], [address] Emergency Department Summary on 11-10-2024 Emergency Department Summary [facility] Medical Records Department [address] [place] [place] [address] Emergency Department Summary 11/10/24 MR#: [id number] Acct: [id number] Name: KAMI WATTS Rep #: [id number] : 1965 59 From: Gómez Escamilla DO PCP: Dr. Earnest Dueñas MD Status:ADM IN Location: [place] [address]-1 HPI History of Present Illness Chief Complaint: Substance Abuse [facility] Medical History (Updated 11/10/24 @ 18:31 [...] History obtained from others: none Consults: none [facility] Narrative: Patient was initially hypertensive with blood pressure 170s over 98 otherwise afebrile and nontoxic- appearing. Medical clearance labs were obtained. ALL IMAGES (IF OBTAINED) HAVE BEEN PERSONALLY REVIEWED AND INTERPRETED (more content not included)... Normal [facility] H AND P Exam - [facility] 11-10-2024 H&P Exam - Hospitalist [facility] Medical Records Department [address] [place] [address] H P Exam - Hospitalist 11/10/24 1739 MR#: [id number] Acct: [id number] Name: KAMI WATTS Rep #: [id number] : 1965 59 From: Kayli Slater MD PCP: Dr. Earnest Dueñas MD Status:ADM IN Location: [facility] [id number] HPI - General General Date of Admission: 11/10/24 Date of Service: 11/10/24 Chief Complaint: ETOH detox HPI Narrative KAMI WATTS, is a 59 F with history of alcohol, tobacco, and substance use who presented [facility] ED 11/10/2024 for alcohol detox. [...] of intermittent nausea but ROS otherwise negative [facility] Medical History (Updated 08/17/24 @ 14:21 by [...] 0.300, Neut (more content not included)... Normal [facility] Liver Profileon 11-10-2024 Albumin [Mass/Vol] 3.8 g/dL Normal 3.2-5.0 [facility] Comment on above: Order Comment: Add o nto previous labs if possible Performed By: #### L 505.5000, L100.0100, L500.4050, L300.3900, L501.9100 #### [facility] [address] [place], [address] ALK P 122 U/L High 45-117 [facility] Comment on above: Order Comment: Add o nto previous labs if possible Performed By: #### L 505.5000, L100.0100, L500.4050, L300.3900, L501.9100 #### [facility] [address] [place], [address] ALT [Catalytic activity/Vol] 20 U/L Normal 13-56 [facility] Comment on above: Order Comment: Add o nto previous labs if possible Performed By: #### L 505.5000, L100.0100, L500.4050, L300.3900, L501.9100 #### [facility] [address] [place], [address] AST [Catalytic activity/Vol] 20 U/L Normal 15-37 [facility] Comment on above: Order Comment: Add o nto previous labs if possible Performed By: #### L 505.5000, L100.0100, L500.4050, L300.3900, L501.9100 #### [facility] [address] [place], [address] Bilirubin [Mass/Vol] 0.40 mg/dL Normal 0.20-1.00 [facility] Comment on above: Order Comment: Add o nto previous labs if possible Result Comment: For patients on eltrombopag therapy, use of Dimension Cerulean TBIL is not recommended. Performed By: #### L 505.5000, L100.0100, L500.4050, L300.3900, L501.9100 #### [facility] [address] [place], [address] Bilirubin.direct [Mass/Vol] 0.13 mg/dL Normal 0.00-0.30 [facility] Comment on above: Order Comment: Add o nto previous labs if possible Performed By: #### L 505.5000, L100.0100, L500.4050, L300.3900, L501.9100 #### [facility] [address] [place], [address] Globulin (S) [Mass/Vol] 3.2 g/dL Normal 2.2-4.2 [facility] Comment on above: Order Comment: Add o nto previous labs if possible Performed By: #### L 505.5000, L100.0100, L500.4050, L300.3900, L501.9100 #### [facility] [address] [place], [address] T PROT 7.0 g/dL Normal 6.4-8.2 [facility] Comment on above: Order Comment: Add o nto previous labs if possible Performed By: #### L 505.5000, L100.0100, L500.4050, L300.3900, L501.9100 #### [facility] [address] [place], [address] Prothrombin Time w/INRon INR Coag (PPP) [Relative time] 1.1 {INR} Normal [facility] Comment on above: Order Comment: Comme nts: Add onto previous labs if possible Performed By: #### L 505.5000, L100.0100, L500.4050, L300.3900, L501.9100 #### [facility] [address] [place], [address] PT Coag (PPP) [Time] 14.0 s Normal 11.7-14.9 [facility] Comment on above: Order Comment: Comme nts: Add onto previous labs if possible Performed By: #### L 505.5000, L100.0100, L500.4050, L300.3900, L501.9100 #### [facility] [address] [place], [address] Urine Drug Screen (VISTA)on 11-10-2024 AMPHETAMINES Negative Normal <1000 ng/mL [facility] Comment on above: Performed By: #### L 505.5000, L100.0100, L500.4050, L300.3900, L501.9100 #### [facility] [address] [place], [address] BARBITIURATES Negative Normal < 200 ng/mL [facility] Comment on above: Performed By: #### L 505.5000, L100.0100, L500.4050, L300.3900, L501.9100 #### [facility] [address] [place], [address] BENZODIAZIPINE Negative Normal < 200 ng/mL [facility] Comment on above: Performed By: #### L 505.5000, L100.0100, L500.4050, L300.3900, L501.9100 #### [facility] [address] [place], [facility] COCAINE Negative Normal < 300 ng/mL [facility] Comment on above: Performed By: #### L 505.5000, L100.0100, L500.4050, L300.3900, L501.9100 #### [facility] [address] [place], [address] ECSTACY Negative Normal < 500 ng/mL [facility] Comment on above: Performed By: #### L 505.5000, L100.0100, L500.4050, L300.3900, L501.9100 #### [facility] [address] [place], [address] METHADONE Negative Normal < 300 ng/mL [facility] Comment on above: Performed By: #### L 505.5000, L100.0100, L500.4050, L300.3900, L501.9100 #### [facility] [address] [place], [address] OPIATES Negative Normal < 300 ng/mL [facility] Comment on above: Performed By: #### L 505.5000, L100.0100, L500.4050, L300.3900, L501.9100 #### [facility] [address] [place], [address] PCP Negative Normal < 25 ng/mL [facility] Comment on above: Performed By: #### L 505.5000, L100.0100, L500.4050, L300.3900, L501.9100 #### [facility] [address] [place], [address] THC Negative Normal < 50 ng/mL [facility] Comment on above: Performed By: #### L 505.5000, L100.0100, L500.4050, L300.3900, L501.9100 #### [facility] [address] [place], [place], [address] VISTA UDS PH 7 Normal [facility] Comment on above: Performed By: #### L 505.5000, L100.0100, L500.4050, L300.3900, L501.9100 #### [facility] [address] [place], [place], [address] CNOVon 11-01-2024 CNOV Office Visit ([facility] ) KAMI WATTS ([id number]) 1965 F NFR Date Time Provider Department 11/01/24 1:45 PM [facility] During your visit today, we recorded the following information about you: Temperature Pulse Respiration Blood pressure 98 degrees 68/minute 18/minute 148/86 Weight 84.1 kg Jess Ellis PA 11/01/2024 1:57 PM Signed This note was created using Myfacepage. Wu Watts is a 59 year old [...] recently sick. Patient has not taken anything [id number] for symptoms. PAST MEDICAL HISTORY Diagnosis Date [...] Disease Mother Hypertension Mother Hearing Loss Father DE/ colon cancer Stroke Father Diabetes Father Hypertension Father Aneurysm Father Coronary Artery Disease Maternal Grandmother Hypertension Maternal Grandmother Ischemic Heart Disease Maternal Grandfather Hypertension Paternal Grandmother Coronary Artery Disease Paternal Grandmother Coronary Artery Disease Paternal Grandfather (more content not included)... [facility] STEFANIEFELIPAKAMI ([id number]) 1965 F NFR Date Time Provider Department [...] Status:Closed by OBEY AGEE on 10/06/24 Normal [facility] Thyroid Stim Hormone (TSH)on 08-17-2024 TSH 0.711 uIU/mL Normal 0.358-3.740 [facility] Comment on above: Performed By: #### L 505.5000, L100.0100, L500.4050, L300.3900, L501.9100 #### [facility] [address] [place], [place], [address] Vitamin D,25 Hydroxyon 08-17 Vitamin D 25-OH 24.1 ng/mL Normal [facility] Comment on above: Result Comment: Caryl min D 25(OH) Status Range Deficiency <20 ng/mL (50nmol/L) Insufficiency 20 - 30 ng/mL (50 - 75 nmol/L) Sufficiency 30 - 100 ng/mL (75 - 250 nmol/L) Toxicity >100 ng/mL (>250 nmol/L) Performed By: #### L 505.5000, L100.0100, L500.4050, L300.3900, L501.9100 #### [facility] [address] [place], [address] Abdomen/Pelvis without Conto n 08-05-2024 Abdomen/Pelvis without Cont [facility] [address] [place] [address] Abdomen/Pelvis without Cont MR#: [id number] Acct: [id number] Name: KAMI WATTS Rep #: [id number] : 1965 F 59 From: Daniel Rajan MD PCP: Dr. Earnest Dueñas MD Status: REG ER Study: Abdomen/Pelvis without Cont Date of Exam: 07/24 02/13 Exam# [id number] Ordering Dr: Calvin Lopez MD [id number] EXAM: CT ABDOMEN AND PELVIS WITHOUT INTRAVENOUS [...] Calvin Lopez MD; Dr. Earnest Dueñas MD Manager Storage: Signed Normal [facility] Basic Metabolic Profile (BMP )on 08-05-2024 BUN/CRE 21.8 RATIO High 10-20 [facility] Comment on above: Performed By: #### L 505.5000, L100.0100, L500.4050, L300.3900, L501.9100 #### [facility] [address] [place], [address] CA,Total 9.8 mg/dL Normal 8.5-10.1 [facility] Comment on above: Performed By: #### L 505.5000, L100.0100, L500.4050, L300.3900, L501.9100 #### [facility] [address] [place], [address] Chloride [Moles/Vol] 109 mmol/L High 98-107 [facility] Comment on above: Performed By: #### L 505.5000, L100.0100, L500.4050, L300.3900, L501.9100 #### [facility] [address] [place], [address] CO2 [Moles/Vol] 24.0 mmol/L Normal 21.0-32.0 [facility] Comment on above: Performed By: #### L 505.5000, L100.0100, L500.4050, L300.3900, L501.9100 #### [facility] [address] [place], [address] Creatinine [Mass/Vol] 0.64 mg/dL Normal 0.55-1.02 [facility] Comment on above: Result Comment: The validity of the calculated GFR GFRAA in patients over 70 years has not been determined. Clinical correlation is essential. Performed By: #### L 505.5000, L100.0100, L500.4050, L300.3900, L501.9100 #### [facility] [address] [place], [address] EST GFR - AA 122 mL/min Normal >60 [facility] Comment on above: Result Comment: Afri can Chadian GFR Calc Performed By: #### L 505.5000, L100.0100, L500.4050, L300.3900, L501.9100 #### [facility] [address] [place], [address] GAP 7 Normal 5-15 [facility] Comment on above: Performed By: #### L 505.5000, L100.0100, L500.4050, L300.3900, L501.9100 #### [facility] [address] [place], [address] GFR/1.73 sq M.predicted among non-blacks MDRD (S/P/Bld) [Vol rate/Area] 101 mL/min/{1.73_m2} Normal >60 [facility] Comment on above: Result Comment: Non- GFR Calc Performed By: #### L 505.5000, L100.0100, L500.4050, L300.3900, L501.9100 #### [facility] [address] [place], [address] Glucose [Mass/Vol] 119 mg/dL High 74-106 [facility] Comment on above: Result Comment: Fast ing Glucose result from 100 to 125 mg/dL suggests IMPAIRED HOMEOSTASIS per A.D.A. criteria. Performed By: #### L 505.5000, L100.0100, L500.4050, L300.3900, L501.9100 #### [facility] [address] [place], [address] Potassium [Moles/Vol] 4.0 mmol/L Normal 3.5-5.1 [facility] Comment on above: Performed By: #### L 505.5000, L100.0100, L500.4050, L300.3900, L501.9100 #### [facility] [address] [place], [address] Sodium [Moles/Vol] 140 mmol/L Normal 136-145 [facility] Comment on above: Performed By: #### L 505.5000, L100.0100, L500.4050, L300.3900, L501.9100 #### [facility] [address] [place], [address] Urea nitrogen [Mass/Vol] 14 mg/dL Normal 7-18 [facility] Comment on above: Performed By: #### L 505.5000, L100.0100, L500.4050, L300.3900, L501.9100 #### [facility] [address] [place], [address] CBC W/Diff, Automatedon 07-24-2023 Absolute Lymph 1.31 X10 3/uL Normal 0.83-4.51 [facility] Comment on above: Performed By: #### L 505.5000, L100.0100, L500.4050, L300.3900, L501.9100 #### [facility] [address] [place], [address] Absolute Neut 10.4 X10 3/uL High 2.0-7.7 [facility] Comment on above: Performed By: #### L 505.5000, L100.0100, L500.4050, L300.3900, L501.9100 #### [facility] [address] [place], [address] Basophils/100 WBC (Bld) 0.6 % Normal 0-1 [facility] Comment on above: Performed By: #### L 505.5000, L100.0100, L500.4050, L300.3900, L501.9100 #### [facility] [address] [place], [address] Eosinophils/100 WBC (Bld) 0.5 % Normal 0-5 [facility] Comment on above: Performed By: #### L 505.5000, L100.0100, L500.4050, L300.3900, L501.9100 #### [facility] [address] [place], [address] Erythrocyte distribution width (RBC) [Ratio] 12.8 % Normal 11.6-14.6 [facility] Comment on above: Performed By: #### L 505.5000, L100.0100, L500.4050, L300.3900, L501.9100 #### [facility] [address] [place], [address] Hematocrit (Bld) [Volume fraction] 46.5 % Normal 37-47 [facility] Comment on above: Performed By: #### L 505.5000, L100.0100, L500.4050, L300.3900, L501.9100 #### [facility] [address] [place], [address] Hemoglobin (Bld) [Mass/Vol] 15.3 g/dL High 12.0-15.0 [facility] Comment on above: Performed By: #### L 505.5000, L100.0100, L500.4050, L300.3900, L501.9100 #### [facility] [address] [place], [address] IG% 0.500 Normal 0.0-0.9 [facility] Comment on above: Result Comment: IG% - Immature Granulocytes (promyelocytes, myelocytes and metamyelocytes) > 1% indicates that a LEFT SHIFT is Present. Performed By: #### L 505.5000, L100.0100, L500.4050, L300.3900, L501.9100 #### [facility] [address] [place], [address] Lymphocytes/100 WBC (Bld) 10.7 % Low 19-41 [facility] Comment on above: Performed By: #### L 505.5000, L100.0100, L500.4050, L300.3900, L501.9100 #### [facility] [address] [facility] [address] [place], [address] MCH (RBC) [Entitic mass] 30.8 pg Normal 27.0-32.0 [facility] Comment on above: Performed By: #### L 505.5000, L100.0100, L500.4050, L300.3900, L501.9100 #### [facility] [address] [place], [address] MCHC (RBC) [Mass/Vol] 32.9 g/dL Normal 32-36 [facility] Comment on above: Performed By: #### L 505.5000, L100.0100, L500.4050, L300.3900, L501.9100 #### [facility] [address] [place], [address] MCV (RBC) [Entitic vol] 93.6 fL Normal 81-99 [facility] Comment on above: Performed By: #### L 505.5000, L100.0100, L500.4050, L300.3900, L501.9100 #### [facility] [address] [place], [address] Monocytes/100 WBC (Bld) 3.3 % Normal 0-10 [facility] Comment on above: Performed By: #### L 505.5000, L100.0100, L500.4050, L300.3900, L501.9100 #### [facility] [address] [place], [address] Neutrophils/100 WBC (Bld) 84.4 % High 47-70 [facility] Comment on above: Performed By: #### L 505.5000, L100.0100, L500.4050, L300.3900, L501.9100 #### [facility] [address] [place], [address] Nucleated RBC (Bld) [#/Vol] 0 10*3/uL Normal 0-5 [facility] Comment on above: Performed By: #### L 505.5000, L100.0100, L500.4050, L300.3900, L501.9100 #### [facility] [address] [place], [address] Platelet mean volume (Bld) [Entitic vol] 10.2 fL Normal 6.2-12.0 [facility] Comment on above: Performed By: #### L 505.5000, L100.0100, L500.4050, L300.3900, L501.9100 #### [facility] [address] [place], [address] Platelets (Bld) [#/Vol] 318 10*3/uL Normal 150-450 [facility] Comment on above: Performed By: #### L 505.5000, L100.0100, L500.4050, L300.3900, L501.9100 #### [facility] [address] [place], [address] RBC (Bld) [#/Vol] 4.97 10*6/uL Normal 4.2-5.4 [facility] Comment on above: Performed By: #### L 505.5000, L100.0100, L500.4050, L300.3900, L501.9100 #### [facility] [address] [place], [address] RDW SD 43.8 fl Normal 35.1-43.9 [facility] Comment on above: Performed By: #### L 505.5000, L100.0100, L500.4050, L300.3900, L501.9100 #### [facility] [address] [place], [address] WBC (Bld) [#/Vol] 12.3 10*3/uL High 4.4-11.0 [facility] Comment on above: Performed By: #### L 505.5000, L100.0100, L500.4050, L300.3900, L501.9100 #### [facility] [address] [place], [address] Emergency Department Summary on 08-05-2024 Emergency Department Summary [facility] Medical Records Department [address] [place] [address] Emergency Department Summary 08/05/24 MR#: [id number] Acct: [id number] Name: KAMI WATTS Rep #: [id number] : 1965 59 From: Calvin Lopez MD PCP: Dr. Earnest Dueñas MD Status:[facility] ER Location: ED HPI HPI - GI [...] and was prescribed Macrobid that she started. [facility] Medical History Wears dentures Wears glasses [...] and other (more content not included)... Normal [facility] Urinalysis, Completeon 08-05 BACTERIA 2+ /hpf Normal None Seen [facility] Comment on above: Order Comment: CLEAN CATCH Performed By: #### L 400.0001 #### [facility] [address] [place], [place], [id number] CA OX CRYSTAL 1+ /hpf Normal [facility] Comment on above: Order Comment: CLEAN CATCH Performed By: #### L 400.0001 #### [facility] [address] [place], [place], [id number] RBC 10-25 SEEN Normal 0-5 [facility] Comment on above: Order Comment: CLEAN CATCH Performed By: #### L 400.0001 #### [facility] [address] [place], [address] WBC 0-5 SEEN Normal 0-5 [facility] Comment on above: Order Comment: CLEAN CATCH Performed By: #### L 400.0001 #### [facility] [address] [place], [address] EPI,SQUAMOUS 0-5 SEEN Normal 5-10 [facility] Comment on above: Order Comment: CLEAN CATCH Performed By: #### L 400.0001 #### [facility] [address] [place], [address] Mucus Ql (Urine sed) 2+ /hpf Normal [facility] Comment on above: Order Comment: CLEAN CATCH Performed By: #### L 400.0001 #### [facility] [address] [place], [address] BACTERIA Normal None Seen [facility] Comment on above: Order Comment: COLLE CTOR TO SPECIFY Result Comment: DUPL ICATE Performed By: #### L 505.5000, L100.0100, L500.4050, L300.3900, L501.9100 #### [facility] [address] [place], [address] BILIRUBIN URINE Normal Negative [facility] Comment on above: Order Comment: COLLE CTOR TO SPECIFY Result Comment: DUPL ICATE Performed By: #### L 505.5000, L100.0100, L500.4050, L300.3900, L501.9100 #### [facility] [address] [place], [address] Clarity (U) Normal Clear [facility] Comment on above: Order Comment: COLLE CTOR TO SPECIFY Result Comment: DUPL ICATE Performed By: #### L 505.5000, L100.0100, L500.4050, L300.3900, L501.9100 #### [facility] [address] [place], [address] Color (U) Normal Yellow [facility] Comment on above: Order Comment: COLLE CTOR TO SPECIFY Result Comment: DUPL ICATE Performed By: #### L 505.5000, L100.0100, L500.4050, L300.3900, L501.9100 #### [facility] [address] [place], [address] EPI,SQUAMOUS Normal 5-10 [facility] Comment on above: Order Comment: COLLE CTOR TO SPECIFY Result Comment: DUPL ICATE Performed By: #### L 505.5000, L100.0100, L500.4050, L300.3900, L501.9100 #### [facility] [address] [place], [address] GLUCOSE, UR Normal Normal [facility] Comment on above: Order Comment: COLLE CTOR TO SPECIFY Result Comment: DUPL ICATE Performed By: #### L 505.5000, L100.0100, L500.4050, L300.3900, L501.9100 #### [facility] [address] [place], [address] KETONE UR Normal Negative [facility] Comment on above: Order Comment: COLLE CTOR TO SPECIFY Result Comment: DUPL ICATE Performed By: #### L 505.5000, L100.0100, L500.4050, L300.3900, L501.9100 #### [facility] [address] [place], [address] LEUK ESTERASE Normal Negative [facility] Comment on above: Order Comment: COLLE CTOR TO SPECIFY Result Comment: DUPL ICATE Performed By: #### L 505.5000, L100.0100, L500.4050, L300.3900, L501.9100 #### [facility] [address] [place], [address] Mucus Ql (Urine sed) Normal [facility] Comment on above: Order Comment: NIYAH CTOR TO SPECIFY Result Comment: DUPL ICATE Performed By: #### L 505.5000, L100.0100, L500.4050, L300.3900, L501.9100 #### [facility] [address] [place], [address] Nitrite Ql (U) Normal Negative [facility] Comment on above: Order Comment: COLLE CTOR TO SPECIFY Result Comment: DUPL ICATE Performed By: #### L 505.5000, L100.0100, L500.4050, L300.3900, L501.9100 #### [facility] [address] [place], [address] OCCULT BLOOD-UR Normal Negative [facility] Comment on above: Order Comment: NIYAH CTOR TO SPECIFY Result Comment: DUPL ICATE Performed By: #### L 505.5000, L100.0100, L500.4050, L300.3900, L501.9100 #### [facility] [address] [place], [address] pH UR Normal 5.0 - 8.0 [facility] Comment on above: Order Comment: NIYAH CTOR TO SPECIFY Result Comment: DUPL ICATE Performed By: #### L 505.5000, L100.0100, L500.4050, L300.3900, L501.9100 #### [facility] [address] [place], [address] PROT DIPSTX Normal Negative [facility] Comment on above: Order Comment: NIYAH CTOR TO SPECIFY Result Comment: DUPL ICATE Performed By: #### L 505.5000, L100.0100, L500.4050, L300.3900, L501.9100 #### [facility] [address] [place], [address] RBC Normal 0-5 [facility] Comment on above: Order Comment: COLLE CTOR TO SPECIFY Result Comment: DUPL ICATE Performed By: #### L 505.5000, L100.0100, L500.4050, L300.3900, L501.9100 #### [facility] [address] [place], [address] SP.GR. DIPSTX Normal 1.002-1.030 [facility] Comment on above: Order Comment: COLLE CTOR TO SPECIFY Result Comment: DUPL ICATE Performed By: #### L 505.5000, L100.0100, L500.4050, L300.3900, L501.9100 #### [facility] [address] [place], [address] UR Preservative Normal [facility] Comment on above: Order Comment: COLLE CTOR TO SPECIFY Result Comment: DUPL ICATE Performed By: #### L 505.5000, L100.0100, L500.4050, L300.3900, L501.9100 #### [facility] [address] [place], [address] UROBILI Normal Normal [facility] Comment on above: Order Comment: NIYAH CTOR TO SPECIFY Result Comment: DUPL ICATE Performed By: #### L 505.5000, L100.0100, L500.4050, L300.3900, L501.9100 #### [facility] [address] [place], [address] WBC Normal 0-5 [facility] Comment on above: Order Comment: COLLE CTOR TO SPECIFY Result Comment: DUPL ICATE Performed By: #### L 505.5000, L100.0100, L500.4050, L300.3900, L501.9100 #### [facility] [address] [place], [address] UA DIP, URINE (POC)on 2023 BILIRUBIN UA (POCT) Negative Negative [facility] CLARITY UA (POCT) Clear [facility] COLOR UA (POCT) Yellow [facility] GLUCOSE UA (POCT) Negative Negative mg/dL [facility] Hemoglobin Ql (U) Moderate Abnormal Negative [facility] Interpretation and review of laboratory results Abnormal [facility] KETONE UA (POCT) Negative Negative mg/dL [facility] LEUKOCYTES UA (POCT) Negative Negative [facility] NITRITE UA (POCT) Negative Negative [facility] PH UA (POCT) 5.5 4.5 - 8.0 [facility] Protein Ql (U) Negative Negative mg/dL [facility] SPECIFIC GRAVITY UA (POCT) >=1.030 1.005 - 1.030 [facility] UROBILINOGEN UA (POCT) 0.2 Normal E.U./dL [facility] Location:[address], [place], [place], [address] [place] [address] POINT OF CARE [facility] XR Pelvis and Hip - left AP and Lateral frogon 03-22-2024 IMPRESSION: No acute osseous abnormality. Degenerative disease of bilateral hips, left greater than right. Manager Storage: [employer] Transcribe Date/Time: Mar 22 2024 1:06P Dictated by : MATTY FAJARDO MD This examination was interpreted and the report reviewed and electronically signed by: MATTY FAJARDO MD on Mar 22 2024 1:07PM [facility] DIVISION OF RADIOLOGY * * *Final Report* [...] joint space narrowing. DIVISION OF RADIOLOGY Provider, [facility]/22/[facility]24 * * *Final Report* [...] of bilateral hips, left greater than right. Manager Storage: PSCB Transcribe Date/Time: Mar 22 2024 1:06P Dictated by : MATTY FAJARDO MD This examination was interpreted and the report reviewed and electronically signed by: MATTY FAJARDO MD on Mar 22 2024 1:07PM [facility] XR Pelvis and Hip - left AP and Lateral frogOrdered By: [facility] Provider on 03-22-2024 [facility] CBC panel Auto (Bld)on 03-16 Erythrocyte distribution width (RBC) [Ratio] 13.2 % 11.5 - 15.0 % [facility] Hematocrit (Bld) [Volume fraction] 42.9 % 36.0 - 46.0 % [facility] Hemoglobin (Bld) [Mass/Vol] 14.5 g/dL 11.5 - 15.5 g/dL [facility] Interpretation and review of laboratory results Normal [facility] MCH (RBC) [Entitic mass] 31.5 pg 26.0 - 34.0 pg [facility] MCHC (RBC) [Mass/Vol] 33.8 g/dL 30.5 - 36.0 g/dL [facility] MCV (RBC) [Entitic vol] 93.1 fL 80.0 - 100.0 fL [facility] Nucleated RBC (Bld) [#/Vol] NINF [facility] Platelet mean volume (Bld) [Entitic vol] 10.5 fL 9.0 - 12.7 fL [facility] Platelets (Bld) [#/Vol] 315 10*3/uL [facility] RBC (Bld) [#/Vol] 4.61 10*6/uL 3.90 - 5.2 0 m/uL [facility] WBC (Bld) [#/Vol] 9.22 10*3/uL [facility] XR Pelvis and Hip - left AP and Lateral frogon 03-16-2024 Radiology Study observation (narrative) [facility] COVID & INFLUENZA A/B & RSV NAAT, ROUTINEon 02-29-2024 FLUAV RNA KALI+probe Ql (Unsp spec) Not detected Not Detected [facility] FLUBV RNA KALI+probe Ql (Unsp spec) Not detected Not Detected [facility] RSV A RNA KALI+probe Ql (Unsp spec) Not detected Not Detected [facility] SARS-CoV-2 (COVID-19) RNA KALI+probe Ql (Resp) Not detected See comment [facility] XR Chest PA and Lateralon IMPRESSION: No acute radiographic abnormality. Manager Storage: [employer] Transcribe Date/Time: Feb 29 2024 10:36A Dictated by : MAICOL ALMANZA MD This examination was interpreted and the report reviewed and electronically signed by: MAICOL ALMANZA MD on Feb 29 2024 10:37AM [facility] DIVISION OF RADIOLOGY * * *Final Report* [...] in the spine. DIVISION OF RADIOLOGY Provider, [facility] - 02/29/2024 * * *Final Report* [...] spine. IMPRESSION IMPRESSION: No acute radiographic abnormality. Manager Storage: PSCB Transcribe Date/Time: Feb 29 2024 10:36A Dictated by : MAICOL ALMANZA MD This examination was interpreted and the report reviewed and electronically signed by: MAICOL ALMANZA MD on Feb 29 2024 10:37AM EST [facility] Radiology Study observation (narrative) [facility] XR Chest PA and LateralOrder ed By: [facility] Provider on 02-29-2024 [facility] STREP A MOLECULAR (POC)on Procedural Control Valid [facility] Strep A (POCT) Negative Negative [facility] Influenza virus A and B RNA and SARS-CoV-2 (COVID-19) N gene panel KALI+probe (Resp)on 03-24-2023 FLUAV RNA KALI+probe Ql (Unsp spec) Not detected Not Detected [facility] FLUBV RNA KALI+probe Ql (Unsp spec) Not detected Not Detected [facility] SARS-CoV-2 (COVID-19) RNA KALI+probe Ql (Resp) Not detected See comment [facility] STREP A MOLECULAR (POC)on Procedural Control Valid [facility] Strep A (POCT) Negative Negative [facility] CBC W Auto Differential pane l (Bld)on 12-15-2022 Basophils (Bld) [#/Vol] 0.10 10*3/uL <0.11 k/uL [facility] Basophils/100 WBC (Bld) 1.1 % [facility] Differential cell count method Nom (Bld) Auto [facility] Eosinophils (Bld) [#/Vol] 0.26 10*3/uL <0.46 k/uL [facility] Eosinophils/100 WBC (Bld) 3.0 % [facility] Erythrocyte distribution width (RBC) [Ratio] 13.2 % 11.5 - 15.0 % [facility] Hematocrit (Bld) [Volume fraction] 42.2 % 36.0 - 46.0 % [facility] Hemoglobin (Bld) [Mass/Vol] 14.3 g/dL 11.5 - 15.5 g/dL [facility] Immature granulocytes (Bld) [#/Vol] 0.03 10*3/uL <0.10 k/uL [facility] Immature granulocytes/100 WBC (Bld) 0.3 % [facility] Lymphocytes (Bld) [#/Vol] 3.04 10*3/uL 1.00 - 4.00 k/uL [facility] Lymphocytes/100 WBC (Bld) 34.9 % [facility] MCH (RBC) [Entitic mass] 31.0 pg 26.0 - 34.0 pg [facility] MCHC (RBC) [Mass/Vol] 33.9 g/dL 30.5 - 36.0 g/dL [facility] MCV (RBC) [Entitic vol] 91.3 fL 80.0 - 100.0 fL [facility] Monocytes (Bld) [#/Vol] 0.61 10*3/uL <0.87 k/uL [facility] Monocytes/100 WBC (Bld) 7.0 % [facility] Neutrophils (Bld) [#/Vol] 4.67 10*3/uL 1.45 - 7.50 k/uL [facility] Neutrophils/100 WBC (Bld) 53.7 % [facility] Nucleated RBC (Bld) [#/Vol] <0.01 k/uL [facility] Nucleated RBC/100 WBC (Bld) [Ratio] 0.0 /100 WBC [facility] Platelet mean volume (Bld) [Entitic vol] 10.3 fL 9.0 - 12.7 fL [facility] Platelets (Bld) [#/Vol] 372 10*3/uL 150 - 400 k/uL [facility] RBC (Bld) [#/Vol] 4.62 10*6/uL 3.90 - 5.2 0 m/uL [facility] WBC (Bld) [#/Vol] 8.71 10*3/uL 3.70 - 11. 00 k/uL [facility] Absolute lymphocyte counton 03-06-2022 Lymphocytes Auto (Unsp spec) [#/Vol] 2.01 10*3/uL 0.83-4.51 [facility] Work Phone: Amorphous sediment detection in urine sediment by light microscopyon 03-06-2022 Amorphous sediment LM Ql (Urine sed) 2+ [facility] Work Phone: [phone] Basophil percentageon 2021 Basophil percentage 0 SEEN /hpf 0-5 [facility] Work Phone: [phone] Basophils/100 WBC (Bld) 0.7 % 0-1 [facility] Work Phone: [phone] Bilirubin [Mass/Vol] 0.20 mg/dL 0.20-1.00 [facility] Work Phone: [phone] Comment on above: For patients on eltr ombopag therapy, use of Dimension Cerulean TBIL is not recommended. Chloride [Moles/Vol] 108 mmol/L 98-107 [facility] Work Phone: [phone] Eosinophils/100 WBC (Bld) 3.0 % 0-5 [facility] Work Phone: Glucose [Mass/Vol] 86 mg/dL 74-106 [facility] Work Phone: [phone] Neutrophils (Bld) [#/Vol] 5.4 10*3/uL 2.0-7.7 [facility] Work Phone: [phone] Neutrophils/100 WBC (Bld) 64.9 % 47-70 [facility] Work Phone: [phone] Potassium [Moles/Vol] 4.3 mmol/L 3.5-5.1 [facility] Work Phone: [phone] Protein [Mass/Vol] 6.6 g/dL 6.4-8.2 [facility] Work Phone: Sodium [Moles/Vol] 139 mmol/L 136-145 [facility] Work Phone: WBC (Bld) [#/Vol] 8.3 10*3/uL 4.4-11.0 [facility] Work Phone: [phone] Bilirubin Test strip Ql (U)o n 03-06-2022 Bilirubin Ql (U) Negative Negative [facility] Work Phone: Blood erythrocytes count (nu mber/volume)on 03-06-2022 RBC (Bld) [#/Vol] 4.59 10*6/uL 4.2-5.4 [facility] Work Phone: Blood hemoglobin measurement (mass/volume)on 03-06-2022 Hemoglobin (Bld) [Mass/Vol] 14.1 g/dL 12.0-15.0 [facility] Work Phone: Blood lymphocytes/100 leukoc yteson 03-06-2022 Lymphocytes/100 WBC (Bld) 24.2 % 19-41 [facility] Work Phone: Blood monocytes/100 leukocyt eson 03-06-2022 Monocytes/100 WBC (Bld) 6.0 % 0-10 [facility] Work Phone: Blood platelet mean volumeon 03-06-2022 Platelet mean volume (Bld) [Entitic vol] 10.0 fL 6.2-12.0 [facility] Work Phone: Determination of erythrocyte mean corpuscular volume (MCV)on 03-06-2022 MCV (RBC) [Entitic vol] 91.3 fL 81-99 [facility] Work Phone: Hematocrit Auto (Bld) [Volum e fraction]on 03-06-2022 Hematocrit (Bld) [Volume fraction] 41.9 % 37-47 [facility] Work Phone: Ketones Test strip Ql (U)on 03-06-2022 Ketones Ql (U) Negative Negative [facility] Work Phone: Laboratory - Chemistry and C hemistry - challengeon 03-06-2022 ALP [Catalytic activity/Vol] 93 U/L 45-117 [facility] Work Phone: ALT [Catalytic activity/Vol] 18 U/L 13-56 [facility] Work Phone: CO2 [Moles/Vol] 29.0 mmol/L 21.0-32.0 [facility] Work Phone: Globulin (S) [Mass/Vol] 3.0 g/dL 2.2-4.2 [facility] Work Phone: Lipase [Catalytic activity/Vol] 63 U/L 73-393 [facility] Work Phone: Urea nitrogen/Creatinine [Mass ratio] 29.9 mg/mg 10-20 [facility] Work Phone: Laboratory - Hematology and Cell countson 03-06-2022 Erythrocyte distribution width (RBC) [Entitic vol] 43.5 fL 35.1-43.9 [facility] Work Phone: Erythrocyte distribution width (RBC) [Ratio] 13.0 % 11.6-14.6 [facility] Work Phone: [phone] Immature granulocytes/100 WBC (Bld) 1.200 % 0.0-0.9 [facility] Work Phone: Comment on above: IG% - Immature Granu locytes (promyelocytes, myelocytes and metamyelocytes) > 1% indicates that a LEFT SHIFT is Present. MCH (RBC) [Entitic mass] 30.7 pg 27.0-32.0 [facility] Work Phone: Nucleated RBC/100 WBC (Bld) [Ratio] 0 % 0-5 [facility] Work Phone: MCHC Auto (RBC) [Mass/Vol]on 03-06-2022 MCHC (RBC) [Mass/Vol] 33.7 g/dL 32-36 [facility] Work Phone: Mucus LM Ql (Urine sed)on Mucus Ql (Urine sed) 0 SEEN /hpf [facility] Work Phone: [phone] Nitrite Test strip Ql (U)on 03-06-2022 Nitrite Ql (U) Negative Negative [facility] Work Phone: No Panel Informationon 03-06 D-Dimer Quantitative (PE/DVT) < 0.27 FEU/ug/m 0.27-0.49 [facility] Work Phone: Comment on above: NORMAL D-Dimer level (<0.50) indicates no DVT or PE. Estimated Creatinine Clearance Calc 95.17 ml/min [facility] Work Phone: Estimated GFR (MDRD) Amer 141 mL/min >60 [facility] Work Phone: Comment on above: GFR Calc Estimated GFR (MDRD) Non-Af Amer 117 mL/min >60 [facility] Work Phone: Comment on above: Non- GFR Calc Platelets bldon 03-06-2022 Platelets (Bld) [#/Vol] 268 10*3/uL 150-450 [facility] Work Phone: Protein Test strip Ql (U)on 03-06-2022 Protein Ql (U) Negative Negative [facility] Work Phone: Serum or plasma albumin ly urement (mass/volume)on 03-06-2022 Albumin [Mass/Vol] 3.6 g/dL 3.2-5.0 [facility] Work Phone: Serum or plasma albumin/glob ulin mass ratioon 03-06-2022 Albumin/Globulin [Mass ratio] 1.2 {ratio} 0.9-2.4 [facility] Work Phone: Serum or plasma calcium ly urement (mass/volume)on 03-06-2022 Calcium [Mass/Vol] 9.1 mg/dL 8.5-10.1 [facility] Work Phone: Serum or plasma creatinine m easurement (mass/volume)on 03-06-2022 Creatinine [Mass/Vol] 0.57 mg/dL 0.55-1.02 [facility] Work Phone: Comment on above: The validity of the calculated GFR & GFRAA in patients over 70 years has not been determined. Clinical correlation is essential. Serum or plasma urea nitroge n measurement (mass/volume)on 03-06-2022 Urea nitrogen [Mass/Vol] 17 mg/dL 7-18 [facility] Work Phone: Squamous epithelial cells de tection in urine sediment by light microscopyon 03-06-2022 Epithelial cells.squamous LM Ql (Urine sed) 0 SEEN /hpf 5-10 [facility] Work Phone: Thin prep Papanicolaou smear with manual screeningon 03-06-2022 Thin prep Papanicolaou smear with manual screening 12 U/L 15-37 [facility] Work Phone: Thin prep Papanicolaou smear with manual screening 2 5-15 [facility] Work Phone: UA DIP, URINE (POC)on 2021 BILIRUBIN UA (POCT) Negative Negative [facility] CLARITY UA (POCT) Clear [facility] COLOR UA (POCT) Yellow [facility] GLUCOSE UA (POCT) Negative Negative mg/dL [facility] HEMOGLOBIN/BLOOD UA (POCT) Trace-intact Abnormal Negative [facility] KETONE UA (POCT) Negative Negative mg/dL [facility] LEUKOCYTES UA (POCT) Negative Negative [facility] NITRITE UA (POCT) Negative Negative [facility] PH UA (POCT) 6.5 4.5 - 8.0 [facility] Protein Ql (U) Negative Negative mg/dL [facility] SPECIFIC GRAVITY UA (POCT) >=1.030 1.005 - 1.030 [facility] UROBILINOGEN UA (POCT) 0.2 E.U./dL Normal E.U./dL [facility] Urine blood detectionon 02-21 RBC Ql (U) 10 /ul Negative [facility] Work Phone: RBC Ql (U) 0 SEEN /hpf 0-5 [facility] Work Phone: Urine clarityon 03-06-2022 Clarity (U) Sl. Cloudy Clear [facility] Work Phone: Urine color determinationon 03-06-2022 Color (U) Yellow Yellow [facility] Work Phone: Urine glucose detectionon Glucose Ql (U) Normal mg/dl Normal [facility] Work Phone: Urine leukocyte esterase det ection by dipstickon 03-06-2022 Leukocyte esterase Test strip Ql (U) Negative Negative [facility] Work Phone: Urine pHon 03-06-2022 pH (U) 7.0 [pH] 5.0 - 8.0 [facility] Work Phone: Urine sediment bacteria coun t by microscopy (number/high power field)on 03-06-2022 Bacteria LM.HPF (Urine sed) [#/Area] 0 /[HPF] None Seen [facility] Work Phone: Urine specific gravity measu rementon 03-06-2022 Specific gravity (U) [Rel density] 1.020 1.002-1.030 [facility] Work Phone: Urobilinogen Auto test strip Ql (U)on 03-06-2022 Urobilinogen Ql (U) Normal mg/dl Normal [facility] Work Phone: Absolute lymphocyte counton 01-26-2022 Lymphocytes Auto (Unsp spec) [#/Vol] 2.39 10*3/uL 0.83-4.51 [facility] Work Phone: Basophil percentageon 2021 Basophil percentage 0-5 SEEN /hpf [facility] Work Phone: Basophils/100 WBC (Bld) 0.8 % 0-1 [facility] Work Phone: Eosinophils/100 WBC (Bld) 4.6 % 0-5 [facility] Work Phone: Neutrophils (Bld) [#/Vol] 4.2 10*3/uL 2.0-7.7 [facility] Work Phone: Neutrophils/100 WBC (Bld) 56.2 % 47-70 [facility] Work Phone: WBC (Bld) [#/Vol] 7.4 10*3/uL 4.4-11.0 [facility] Work Phone: Bilirubin [Mass/Vol] 0.40 mg/dL 0.20-1.00 [facility] Work Phone: Comment on above: For patients on eltr ombopag therapy, use of Dimension Cerulean TBIL is not recommended. Chloride [Moles/Vol] 109 mmol/L 98-107 [facility] Work Phone: Glucose [Mass/Vol] 107 mg/dL 74-106 [facility] Work Phone: Comment on above: Fasting Glucose resu lt from 100 to 125 mg/dL suggests IMPAIRED HOMEOSTASIS per A.D.A. criteria. Potassium [Moles/Vol] 3.8 mmol/L 3.5-5.1 [facility] Work Phone: Protein [Mass/Vol] 6.3 g/dL 6.4-8.2 [facility] Work Phone: Sodium [Moles/Vol] 140 mmol/L 136-145 [facility] Work Phone: Bilirubin Test strip Ql (U)o n 01-26-2022 Bilirubin Ql (U) Negative Negative [facility] Work Phone: Blood erythrocytes count (nu mber/volume)on 01-26-2022 RBC (Bld) [#/Vol] 4.04 10*6/uL 4.2-5.4 [facility] Work Phone: Blood hemoglobin measurement (mass/volume)on 01-26-2022 Hemoglobin (Bld) [Mass/Vol] 13.0 g/dL 12.0-15.0 [facility] Work Phone: Blood lymphocytes/100 leukoc yteson 01-26-2022 Lymphocytes/100 WBC (Bld) 32.2 % 19-41 [facility] Work Phone: Blood monocytes/100 leukocyt eson 01-26-2022 Monocytes/100 WBC (Bld) 5.9 % 0-10 [facility] Work Phone: Blood platelet mean volumeon 01-26-2022 Platelet mean volume (Bld) [Entitic vol] 10.5 fL 6.2-12.0 [facility] Work Phone: Determination of erythrocyte mean corpuscular volume (MCV)on 01-26-2022 MCV (RBC) [Entitic vol] 92.8 fL 81-99 [facility] Work Phone: Hematocrit Auto (Bld) [Volum e fraction]on 01-26-2022 Hematocrit (Bld) [Volume fraction] 37.5 % 37-47 [facility] Work Phone: Ketones Test strip Ql (U)on 01-26-2022 Ketones Ql (U) 5 mg/dl Negative [facility] Work Phone: Laboratory - Chemistry and C hemistry - challengeon 01-26-2022 ALP [Catalytic activity/Vol] 86 U/L 45-117 [facility] Work Phone: ALT [Catalytic activity/Vol] 17 U/L 13-56 [facility] Work Phone: CO2 [Moles/Vol] 27.0 mmol/L 21.0-32.0 [facility] Work Phone: Globulin (S) [Mass/Vol] 2.7 g/dL 2.2-4.2 [facility] Work Phone: Lipase [Catalytic activity/Vol] 53 U/L 73-393 [facility] Work Phone: Urea nitrogen/Creatinine [Mass ratio] 32.1 mg/mg 10-20 [facility] Work Phone: Laboratory - Hematology and Cell countson 01-26-2022 Erythrocyte distribution width (RBC) [Entitic vol] 45.0 fL 35.1-43.9 [facility] Work Phone: Erythrocyte distribution width (RBC) [Ratio] 13.2 % 11.6-14.6 [facility] Work Phone: Immature granulocytes/100 WBC (Bld) 0.300 % 0.0-0.9 [facility] Work Phone: Comment on above: IG% - Immature Granu locytes (promyelocytes, myelocytes and metamyelocytes) > 1% indicates that a LEFT SHIFT is Present. MCH (RBC) [Entitic mass] 32.2 pg 27.0-32.0 [facility] Work Phone: Nucleated RBC/100 WBC (Bld) [Ratio] 0 % 0-5 [facility] Work Phone: MCHC Auto (RBC) [Mass/Vol]on 01-26-2022 MCHC (RBC) [Mass/Vol] 34.7 g/dL 32-36 [facility] Work Phone: Mucus LM Ql (Urine sed)on Mucus Ql (Urine sed) 0 SEEN /hpf [facility] Work Phone: Nitrite Test strip Ql (U)on 01-26-2022 Nitrite Ql (U) Negative Negative [facility] Work Phone: No Panel Informationon 01-26 Estimated Creatinine Clearance Calc 83.45 ml/min [facility] Work Phone: Estimated GFR (MDRD) Amer 120 mL/min >60 [facility] Work Phone: Comment on above: GFR Calc Estimated GFR (MDRD) Non-Af Amer 99 mL/min >60 [facility] Work Phone: Comment on above: Non- GFR Calc Platelets bldon 01-26-2022 Platelets (Bld) [#/Vol] 261 10*3/uL 150-450 [facility] Work Phone: Protein Test strip Ql (U)on 01-26-2022 Protein Ql (U) Negative Negative [facility] Work Phone: Serum or plasma albumin ly urement (mass/volume)on 01-26-2022 Albumin [Mass/Vol] 3.6 g/dL 3.2-5.0 [facility] Work Phone: Serum or plasma albumin/glob ulin mass ratioon 01-26-2022 Albumin/Globulin [Mass ratio] 1.3 {ratio} 0.9-2.4 [facility] Work Phone: Serum or plasma calcium ly urement (mass/volume)on 01-26-2022 Calcium [Mass/Vol] 8.8 mg/dL 8.5-10.1 [facility] Work Phone: Serum or plasma creatinine m easurement (mass/volume)on 01-26-2022 Creatinine [Mass/Vol] 0.65 mg/dL 0.55-1.02 [facility] Work Phone: Comment on above: The validity of the calculated GFR & GFRAA in patients over 70 years has not been determined. Clinical correlation is essential. Serum or plasma urea nitroge n measurement (mass/volume)on 01-26-2022 Urea nitrogen [Mass/Vol] 21 mg/dL 7-18 [facility] Work Phone: Squamous epithelial cells de tection in urine sediment by light microscopyon 01-26-2022 Epithelial cells.squamous LM Ql (Urine sed) 0-5 SEEN /hpf [facility] Work Phone: Thin prep Papanicolaou smear with manual screeningon 01-26-2022 Thin prep Papanicolaou smear with manual screening 12 U/L 15-37 [facility] Work Phone: Thin prep Papanicolaou smear with manual screening 4 5-15 [facility] Work Phone: Urine blood detectionon RBC Ql (U) 10 /ul Negative [facility] Work Phone: RBC Ql (U) 0-5 SEEN /hpf [facility] Work Phone: Urine clarityon 01-26-2022 Clarity (U) Sl. Cloudy Clear [facility] Work Phone: Urine color determinationon 01-26-2022 Color (U) Yellow Yellow [facility] Work Phone: Urine glucose detectionon Glucose Ql (U) Normal mg/dl Normal [facility] Work Phone: Urine leukocyte esterase det ection by dipstickon 01-26-2022 Leukocyte esterase Test strip Ql (U) 25 /ul Negative [facility] Work Phone: Urine pHon 01-26-2022 pH (U) 5.0 [pH] [facility] Work Phone: Urine sediment bacteria coun t by microscopy (number/high power field)on 01-26-2022 Bacteria LM.HPF (Urine sed) [#/Area] 0 /[HPF] None Seen [facility] Work Phone: Urine specific gravity measu rementon 01-26-2022 Specific gravity (U) [Rel density] 1.025 [facility] Work Phone: Urobilinogen Auto test strip Ql (U)on 01-26-2022 Urobilinogen Ql (U) 1 mg/dl Normal [facility] Work Phone: Absolute lymphocyte counton 01-22-2022 Lymphocytes Auto (Unsp spec) [#/Vol] 2.12 10*3/uL 0.83-4.51 [facility] Work Phone: Basophil percentageon 2021 Basophils/100 WBC (Bld) 0.7 % 0-1 [facility] Work Phone: Bilirubin [Mass/Vol] 0.50 mg/dL 0.20-1.00 [facility] Work Phone: Comment on above: For patients on eltr ombopag therapy, use of Dimension Cerulean TBIL is not recommended. Chloride [Moles/Vol] 103 mmol/L 98-107 [facility] Work Phone: [phone] Eosinophils/100 WBC (Bld) 2.1 % 0-5 [facility] Work Phone: [phone] Glucose [Mass/Vol] 91 mg/dL 74-106 [facility] Work Phone: [phone] Neutrophils (Bld) [#/Vol] 4.7 10*3/uL 2.0-7.7 [facility] Work Phone: [phone] Neutrophils/100 WBC (Bld) 62.3 % 47-70 [facility] Work Phone: [phone] Potassium [Moles/Vol] 4.3 mmol/L 3.5-5.1 [facility] Work Phone: [phone] Protein [Mass/Vol] 7.5 g/dL 6.4-8.2 [facility] Work Phone: [phone] Sodium [Moles/Vol] 138 mmol/L 136-145 [facility] Work Phone: [phone] WBC (Bld) [#/Vol] 7.6 10*3/uL 4.4-11.0 [facility] Work Phone: Blood erythrocytes count (nu mber/volume)on 01-22-2022 RBC (Bld) [#/Vol] 4.76 10*6/uL 4.2-5.4 [facility] Work Phone: Blood hemoglobin measurement (mass/volume)on 01-22-2022 Hemoglobin (Bld) [Mass/Vol] 14.6 g/dL 12.0-15.0 [facility] Work Phone: Blood lymphocytes/100 leukoc yteson 01-22-2022 Lymphocytes/100 WBC (Bld) 28.0 % 19-41 [facility] Work Phone: [phone] Blood monocytes/100 leukocyt eson 01-22-2022 Monocytes/100 WBC (Bld) 6.5 % 0-10 [facility] Work Phone: [phone] Blood platelet mean volumeon 01-22-2022 Platelet mean volume (Bld) [Entitic vol] 10.1 fL 6.2-12.0 [facility] Work Phone: Determination of erythrocyte mean corpuscular volume (MCV)on 01-22-2022 MCV (RBC) [Entitic vol] 88.9 fL 81-99 [facility] Work Phone: Hematocrit Auto (Bld) [Volum e fraction]on 01-22-2022 Hematocrit (Bld) [Volume fraction] 42.3 % 37-47 [facility] Work Phone: Laboratory - Chemistry and C hemistry - challengeon 01-22-2022 ALP [Catalytic activity/Vol] 100 U/L 45-117 [facility] Work Phone: ALT [Catalytic activity/Vol] 18 U/L 13-56 [facility] Work Phone: CO2 [Moles/Vol] 30.0 mmol/L 21.0-32.0 [facility] Work Phone: [phone] Globulin (S) [Mass/Vol] 3.5 g/dL 2.2-4.2 [facility] Work Phone: Lipase [Catalytic activity/Vol] 69 U/L 73-393 [facility] Work Phone: Urea nitrogen/Creatinine [Mass ratio] 23.5 mg/mg 10-20 [facility] Work Phone: Laboratory - Hematology and Cell countson 01-22-2022 Erythrocyte distribution width (RBC) [Entitic vol] 43.1 fL 35.1-43.9 [facility] Work Phone: Erythrocyte distribution width (RBC) [Ratio] 13.2 % 11.6-14.6 [facility] Work Phone: [phone] Immature granulocytes/100 WBC (Bld) 0.400 % 0.0-0.9 [facility] Work Phone: Comment on above: IG% - Immature Granu locytes (promyelocytes, myelocytes and metamyelocytes) > 1% indicates that a LEFT SHIFT is Present. MCH (RBC) [Entitic mass] 30.7 pg 27.0-32.0 [facility] Work Phone: Nucleated RBC/100 WBC (Bld) [Ratio] 0 % 0-5 [facility] Work Phone: MCHC Auto (RBC) [Mass/Vol]on 01-22-2022 MCHC (RBC) [Mass/Vol] 34.5 g/dL 32-36 [facility] Work Phone: No Panel Informationon 01-22 Estimated Creatinine Clearance Calc 84.76 ml/min [facility] Work Phone: Estimated GFR (MDRD) Amer 123 mL/min >60 [facility] Work Phone: Comment on above: GFR Calc Estimated GFR (MDRD) Non-Af Amer 102 mL/min >60 [facility] Work Phone: Comment on above: Non- GFR Calc Platelets bldon 01-22-2022 Platelets (Bld) [#/Vol] 321 10*3/uL 150-450 [facility] Work Phone: Serum or plasma albumin ly urement (mass/volume)on 01-22-2022 Albumin [Mass/Vol] 4.0 g/dL 3.2-5.0 [facility] Work Phone: Serum or plasma albumin/glob ulin mass ratioon 01-22-2022 Albumin/Globulin [Mass ratio] 1.1 {ratio} 0.9-2.4 [facility] Work Phone: Serum or plasma calcium ly urement (mass/volume)on 01-22-2022 Calcium [Mass/Vol] 9.7 mg/dL 8.5-10.1 [facility] Work Phone: Serum or plasma creatinine m easurement (mass/volume)on 01-22-2022 Creatinine [Mass/Vol] 0.64 mg/dL 0.55-1.02 [facility] Work Phone: Comment on above: The validity of the calculated GFR & GFRAA in patients over 70 years has not been determined. Clinical correlation is essential. Serum or plasma urea nitroge n measurement (mass/volume)on 01-22-2022 Urea nitrogen [Mass/Vol] 15 mg/dL 7-18 [facility] Work Phone: Thin prep Papanicolaou smear with manual screeningon 01-22-2022 Thin prep Papanicolaou smear with manual screening 13 U/L 15-37 [facility] Work Phone: Thin prep Papanicolaou smear with manual screening 5 5-15 [facility] Work Phone: No Panel Informationon 04-13 Radiology Study observation (narrative) [facility] XR Cervical spine AP and Lat eral and obliqueon 04-13-2021 IMPRESSION: Cervical spine degenerative changes with multilevel disc space narrowing and bilateral neural foraminal narrowing. Manager Storage: CHARITO Transcribe Date/Time: Apr 13 2021 9:53P Dictated by : MAICOL ALMANZA MD This examination was interpreted and the report reviewed and electronically signed by: MAICOL ALMANZA MD on Apr 13 2021 9:56PM [facility] DIVISION OF RADIOLOGY * * *Final Report* [...] tissues are normal. DIVISION OF RADIOLOGY Provider, Raj Pederson - 04/13/2021 * * *Final Report* * [...] space narrowing and bilateral neural foraminal narrowing. Manager Storage[facility] Transcribe Date/Time: Apr 13 2021 9:53P Dictated by : MAICOL ALMANZA MD This examination was interpreted and the report reviewed and electronically signed by: MAICOL ALMANZA MD on Apr 13 2021 9:56PM EST [facility] XR Cervical spine AP and Lat eral and obliqueOrdered By: [facility] Provider on 04-13-2021 [facility] XR HIP BILAT 5V PEL/AP/LAT E ACH HIPon 04-13-2021 IMPRESSION: Findings are suggestive of mild degenerative changes in the bilateral hips. Manager Storage[facility] Transcribe Date/Time: Apr 13 2021 9:56P Dictated by : MAICOL ALMANZA MD This examination was interpreted and the report reviewed and electronically signed by: MAICOL ALMANZA MD on Apr 13 2021 9:59PM [facility] DIVISION OF RADIOLOGY * * *Final Report* [...] the left pelvis. DIVISION OF RADIOLOGY Provider, [facility] [facility] - 04/13/2021 * * *Final Report* [...] mild degenerative changes in the bilateral hips. Manager Storage[facility] Transcribe Date/Time: Apr 13 2021 9:56P Dictated by : MAICOL ALMANZA MD This examination was interpreted and the report reviewed and electronically signed by: MAICOL ALMANZA MD on Apr 13 2021 9:59PM [facility] TOXASSURE COMPRon 07-09-2019 TOXASSURE COMPR FINAL Normal () [facility] [place] Comment on above: Order Comment: Urbano long: [...] consultation, please call . === Performed At: [facility] [address] [place], [place] [id number] [place] [facility] [phone] Performed By: #### L [id number] #### [facility] [address] [facility] [place] [place] [address] # [phone] TOXASSURE COMPRon 06-07-2019 TOXASSURE COMPR FINAL Normal () [facility] [place] Comment on above: Order Comment: Campu s: [...] consultation, please call . === Performed At: [facility] [address] [place] [phone] [place] [facility] [phone] Performed By: #### L 600.21400 #### [facility] [address] [address] 6-ACETYLMORPHINon 05-06-2019 6-DAYNA TOXASSURE Negative Normal () [facility] Comment on above: Order Comment: Urbano Fonseca Performed By: #### L 600.55322, L600.99823 #### [facility] [address] [address] CONFIRMATION 6M Not Detected Normal () [facility] Comment on above: Order Comment: Urbano long: Marian Result Comment: INFC E Result Units: ng/mg creat Testing Threshold: 10 ng/mL This test was developed and its performance characteristics determined by [facility]. It has not been cleared or approved by the Food and Drug Administration. Performed At: [facility] [address] [place] [phone] [place] [facility] [phone] Performed By: #### L 600.26863, L600.84850 #### [facility] [address] [address] TOXASSURE COMPRon 05-06-2019 TOXASSURE COMPR FINAL Normal () [facility] Comment on above: Order Comment: Urbano long: [...] call . === Performed By: #### L 600.94525, L600.14777 #### [facility] [address] [place] [address] # [phone] 6-ACETYLMORPHINon 04-04-2019 6-DAYNA TOXASSURE Negative Normal () [facility] Comment on above: Order Comment: Urbano Fonseca Performed By: #### L 600.03198, L600.68034 #### [facility] [address] [place] [address] CONFIRMATION 6M Not Detected Normal () [facility] Comment on above: Order Comment: Urbano Fonseca Result Comment: INFC E Result Units: ng/mg creat Testing Threshold: 10 ng/mL This test was developed and its performance characteristics determined by [facility]. It has not been cleared or approved by the Food and Drug Administration. Performed At: [facility] [address] [id number] [place] [facility] [phone] Performed By: #### L 600.90473, L600.69950 #### [facility] [address] [place] [address] # [phone] TOXASSURE COMPRon 04-04-2019 TOXASSURE COMPR FINAL Normal () [facility] Comment on above: Order Comment: Urbnao Fonseca Result Comment: === TOXASSURE COMP DRUG [...] call . === Performed By: #### L 600.88939, L600.71849 #### [facility] [address] [place] [address] 6-ACETYLMORPHINon 03-08-2019 6-DAYNA TOXASSURE Negative Normal () [facility] Comment on above: Order Comment: Urbano Fonseca Performed By: #### L 600.17926, L600.77794 #### [facility] [address] [place] [address] CONFIRMATION 6M Not Detected Normal () [facility] [place] Comment on above: Order Comment: Urbano long: Marian Result Comment: INFC E Result Units: ng/mg creat Testing Threshold: 10 ng/mL This test was developed and its performance characteristics determined by [facility]. It has not been cleared or approved by the Food and Drug Administration. Performed At: [facility] [address] [place], [place] [phone] [place] [facility] [phone] Performed By: #### L 600.38455, L600.57352 #### [facility] [address] [place] [address] # [phone] TOXASSURE COMPRon 03-08-2019 TOXASSURE COMPR FINAL Normal () [facility] Comment on above: Order Comment: Urbano s: [...] call . === Performed By: #### L 600.82016, L600.16857 #### [facility] [address] [place] [address] # [phone] Culture Anaerobeon 9 Culture Anaerobe Specimen Comments: VOLAR FINGER RIGHT 2ND DIGIT Culture Observations:--------- --- No anaerobes isolated Susceptibility Data: [facility] Comment on above: Order Comment: VOLAR FINGER RIGHT 2ND DIGIT Performed By: #### C NICHO #### [facility] [address] [place] [address] Culture Wound Aerobic w/ Gra m Stobessy 12-27-2018 Culture Wound Aerobic w/ Gram St Specimen Comments: VOLAR FINGER RIGHT 2ND DIGIT Direct Exam: Small # WBCs No organisms seen Culture Exam: 1. Pasteurella multocida Small numbers of Susceptibility Data: Normal [facility] Comment on above: Order Comment: GERI wise erformed at additional charge when indicated VOLAR FINGER RIGHT 2ND DIGIT Result Comment: No s ensitivity perfomed on this organism Performed By: #### C XWND #### [facility] [address] [place] [address] Surgical Pathology Depar tmenton 12-27-2018 [facility] Surgical Pathology Department Name KAMI WATTS Pathologist: AZCK TOSCANO MD Date of Procedure: 12/27/2018 Date Received: 12/28/2018 Date Reported 12/30/2018 Submitting Physician: HERNESTO PHAN MD Location: [facility] Copy To/Referring/Attending : EARNEST DUEÑAS M.D. Other External # [id number] FINAL DIAGNOSIS A. VOLAR FINGER, RIGHT SECOND DIGIT: -- PORTION OF FIBROUS TISSUE WITH EDEMA, ACUTE AND CHRONIC INFLAMMATION. economics consultant: Gordon Hernandez M.D. Electronically Signed Out By ZACK TOSCANO MD/[facility] By the signature on this report, the individual or group listed as making the Final Interpretation/Diagnos is certifies that they have reviewed this case. Clinical History: Tendosynovitis right index finger Specimens Submitted As: A: VOLAR FINGER RIGHT SECOND DIGIT Other Case Numbers [id number] Gross Description: Received in formalin, labeled with the patient's name and hospital number and volar finger right second digit, are 2 fragments of pale miller soft tissue measuring #1 0.7 x 0.3 x 0.1 cm and #2 0.4 x 0.2 x 0.1 cm. The specimen is inked. The specimen is submitted in toto in one cassette. EXL exl/12/29/2018 Normal [facility] Comment on above: Performed By: #### U [facility] #### [facility] Surgical Pathology Department [address] [place] [address] [address] Vital Signs Date Time Vital Sign Value Performing Clinician Facility 07-27-2025 11:37-0400 Body mass index (BMI) [Ratio] 33.23 kg/m2 Jess MARTIN Work Phone: [facility] 07-27-2025 11:37-0400 Body temperature 97 [degF] Krislyn Aberegg PA Work Phone: [facility] 07-27-2025 11:37-0400 Body weight 84 kg Krislyn Aberegg PA Work Phone: [facility] 07-27-2025 11:37-0400 Diastolic blood pressure 85 mm[Hg] Krislyn Aberegg PA Work Phone: [facility] 07-27-2025 11:37-0400 Heart rate 70 /min Krislyn Aberegg PA Work Phone: [facility] 07-27-2025 11:37-0400 Respiratory rate 20 /min Krislyn Aberegg PA Work Phone: [facility] 07-27-2025 11:37-0400 SaO2% (BldA) [Mass fraction] 96 % Krislyn Aberegg PA Work Phone: [facility] 07-27-2025 11:37-0400 Systolic blood pressure 125 mm[Hg] Krislyn Aberegg PA Work Phone: [facility] 02-28-2025 11:22-0400 Body mass index (BMI) [Ratio] 34.02 kg/m2 Joan Talley APRN.PRODUCT FINISHER Work Phone: [facility] 02-28-2025 11:22-0400 Body weight 86 kg Joan Talley APRN.PRODUCT FINISHER Work Phone: [facility] 02-28-2025 11:22-0400 Diastolic blood pressure 96 mm[Hg] Joan Talley APRN.PRODUCT FINISHER Work Phone: [facility] 02-28-2025 11:22-0400 Heart rate 83 /min Joan Talley APRN.PRODUCT FINISHER Work Phone: [facility] 02-28-2025 11:22-0400 Systolic blood pressure 145 mm[Hg] Joan Talley APRN.PRODUCT FINISHER Work Phone: [facility] 11-01-2024 13:46-0500 Body mass index (BMI) [Ratio] 33.27 kg/m2 Krislyn Aberegg PA Work Phone: [facility] 11-01-2024 13:46-0500 Body temperature 98.01 [degF] Krislyn Aberegg PA Work Phone: [facility] 11-01-2024 13:46-0500 Body weight 84.1 kg Krislyn Aberegg PA Work Phone: [facility] 11-01-2024 13:46-0500 Diastolic blood pressure 86 mm[Hg] Krislyn Aberegg PA Work Phone: [facility] 11-01-2024 13:46-0500 Heart rate 68 /min Krislyn Aberegg PA Work Phone: [facility] 11-01-2024 13:46-0500 Respiratory rate 18 /min Krislyn Aberegg PA Work Phone: [facility] 11-01-2024 13:46-0500 SaO2% (BldA) [Mass fraction] 95 % Krislyn Aberegg PA Work Phone: [facility] 11-01-2024 13:46-0500 Systolic blood pressure 148 mm[Hg] Krislyn Aberegg PA Work Phone: [facility] 08-04-2024 11:56-0400 Body mass index (BMI) [Ratio] 31.17 kg/m2 Vonnie Macdonald APRN.PRODUCT FINISHER Work Phone: [facility] 08-04-2024 11:56-0400 Body temperature 97.81 [degF] Vonnie Macdonald APRN.PRODUCT FINISHER Work Phone: [facility] 08-04-2024 11:56-0400 Body weight 78.8 kg Vonnie Macdonald APRN.PRODUCT FINISHER Work Phone: [facility] 08-04-2024 11:56-0400 Diastolic blood pressure 78 mm[Hg] Vonnie Macdonald COMPANY LABORER.PRODUCT FINISHER Work Phone: [facility] 08-04-2024 11:56-0400 Heart rate 71 /min Vonnie Macdonald COMPANY LABORER.PRODUCT FINISHER Work Phone: [facility] 08-04-2024 11:56-0400 Respiratory rate 18 /min Vonnie Macdonald COMPANY LABORER.PRODUCT FINISHER Work Phone: [facility] 08-04-2024 11:56-0400 SaO2% (BldA) [Mass fraction] 99 % Vonnie Macdonald COMPANY LABORER.PRODUCT FINISHER Work Phone: [facility] 08-04-2024 11:56-0400 Systolic blood pressure 114 mm[Hg] Vonnie Macdonald COMPANY LABORER.PRODUCT FINISHER Work Phone: [facility] 03-21-2024 10:54-0400 Body mass index (BMI) [Ratio] 32.2 kg/m2 Mima Royal COMPANY LABORER.PRODUCT FINISHER Work Phone: [facility] 03-21-2024 10:54-0400 Body temperature 97 [degF] Mima Royal COMPANY LABORER.PRODUCT FINISHER Work Phone: [facility] 03-21-2024 10:54-0400 Body weight 81.4 kg Mima Royal COMPANY LABORER.PRODUCT FINISHER Work Phone: [facility] 03-21-2024 10:54-0400 Diastolic blood pressure 66 mm[Hg] Mima Royal COMPANY LABORER.PRODUCT FINISHER Work Phone: [facility] 03-21-2024 10:54-0400 Heart rate 74 /min Mima Royal COMPANY LABORER.PRODUCT FINISHER Work Phone: [facility] 03-21-2024 10:54-0400 Respiratory rate 16 /min Mima Royal COMPANY LABORER.PRODUCT FINISHER Work Phone: [facility] 03-21-2024 10:54-0400 SaO2% (BldA) [Mass fraction] 96 % Mima Royal COMPANY LABORER.PRODUCT FINISHER Work Phone: [facility] 03-21-2024 10:54-0400 Systolic blood pressure 122 mm[Hg] Mima Royal COMPANY LABORER.PRODUCT FINISHER Work Phone: [facility] 03-16-2024 12:37-0400 Body height 159 cm Farzana Llamas PA-C Work Phone: [facility] 03-16-2024 12:37-0400 Body mass index (BMI) [Ratio] 33.05 kg/m2 Farzana Llamas PA-C Work Phone: [facility] 03-16-2024 12:37-0400 Body weight 83.55 kg Farzana Llamas PA-C Work Phone: [facility] 03-16-2024 12:37-0400 Diastolic blood pressure 60 mm[Hg] Farzana Llamas PA-C Work Phone: [facility] 03-16-2024 12:37-0400 Heart rate 88 /min Farzana Llamas PA-C Work Phone: [facility] 03-16-2024 12:37-0400 Respiratory rate 16 /min Farzana Llamas PA-C Work Phone: [facility] 03-16-2024 12:37-0400 SaO2% (BldA) [Mass fraction] 97 % Farzana Llamas PA-C Work Phone: [facility] 03-16-2024 12:37-0400 Systolic blood pressure 112 mm[Hg] Farzana Llamas PA-C Work Phone: [facility] 02-29-2024 10:01-0400 Body temperature 97.81 [degF] Mima Royal COMPANY LABORER.PRODUCT FINISHER Work Phone: [facility] 02-29-2024 10:01-0400 Body weight 85.9 kg Mima Royal COMPANY LABORER.PRODUCT FINISHER Work Phone: [facility] 02-29-2024 10:01-0400 Diastolic blood pressure 84 mm[Hg] Mima Royal COMPANY LABORER.PRODUCT FINISHER Work Phone: [facility] 02-29-2024 10:01-0400 Heart rate 69 /min Mima Royal COMPANY LABORER.PRODUCT FINISHER Work Phone: [facility] 02-29-2024 10:01-0400 Respiratory rate 18 /min Mima Royal COMPANY LABORER.PRODUCT FINISHER Work Phone: [facility] 02-29-2024 10:01-0400 SaO2% (BldA) [Mass fraction] 96 % Mima Royal COMPANY LABORER.PRODUCT FINISHER Work Phone: [facility] 02-29-2024 10:01-0400 Systolic blood pressure 146 mm[Hg] Mima Royal COMPANY LABORER.PRODUCT FINISHER Work Phone: [facility] 04-04-2023 09:51-0400 Body temperature 96.8 [degF] Beverly Praisler-Wood COMPANY LABORER.[facility] Work Phone: [facility] 04-04-2023 09:51-0400 Body weight 69.4 kg Beverly Praisler-Wood COMPANY LABORER.PRODUCT FINISHER Work Phone: [facility] 04-04-2023 09:51-0400 Diastolic blood pressure 88 mm[Hg] Beverly Praisler-Wood COMPANY LABORER.[facility] Work Phone: [facility] 04-04-2023 09:51-0400 Heart rate 67 /min Beverly Praisler-Wood COMPANY LABORER.PRODUCT FINISHER Work Phone: [facility] 04-04-2023 09:51-0400 Respiratory rate 20 /min Beverly Praisler-Wood COMPANY LABORER.PRODUCT FINISHER Work Phone: [facility] 04-04-2023 09:51-0400 SaO2% (BldA) [Mass fraction] 98 % Beverly Praisler-Wood COMPANY LABORER.PRODUCT FINISHER Work Phone: [facility] 04-04-2023 09:51-0400 Systolic blood pressure 138 mm[Hg] Beverly Praisler-Wood COMPANY LABORER.PRODUCT FINISHER Work Phone: [facility] 03-23-2023 19:24-0400 Body temperature 96.3 [degF] Jess Aberegg PA Work Phone: [facility] 03-23-2023 19:24-0400 Body weight 68.58 kg Krislyn Aberegg PA Work Phone: [facility] 03-23-2023 19:24-0400 Diastolic blood pressure 80 mm[Hg] Krislyn Aberegg PA Work Phone: [facility] 03-23-2023 19:24-0400 Heart rate 78 /min Krislyn Aberegg PA Work Phone: [facility] 03-23-2023 19:24-0400 Respiratory rate 21 /min Krislyn Aberegg PA Work Phone: [facility] 03-23-2023 19:24-0400 SaO2% (BldA) [Mass fraction] 99 % Krislyn Aberegg PA Work Phone: [facility] 03-23-2023 19:24-0400 Systolic blood pressure 118 mm[Hg] Krislyn Aberegg PA Work Phone: [facility] 12-15-2022 09:35-0500 Body weight 67.04 kg Farzana Llamas PA-C Work Phone: [facility] 12-15-2022 09:35-0500 Diastolic blood pressure 86 mm[Hg] Farzana Llamas PA-C Work Phone: [facility] 12-15-2022 09:35-0500 Heart rate 76 /min Farzana Llamas PA-C Work Phone: [facility] 12-15-2022 09:35-0500 Respiratory rate 18 /min Farzana Llamas PA-C Work Phone: [facility] 12-15-2022 09:35-0500 SaO2% (BldA) [Mass fraction] 97 % Farzana Llamas PA-C Work Phone: [facility] 12-15-2022 09:35-0500 Systolic blood pressure 112 mm[Hg] Farzana Llamas PA-C Work Phone: [facility] 10-01-2022 14:30-0500 Body weight 72.12 kg Lou Yu APRN.PRODUCT FINISHER Work Phone: [facility] 10-01-2022 14:30-0500 Diastolic blood pressure 64 mm[Hg] Lou Yu APRN.PRODUCT FINISHER Work Phone: [facility] 10-01-2022 14:30-0500 Systolic blood pressure 108 mm[Hg] Lou Yu APRN.PRODUCT FINISHER Work Phone: [facility] 10-01-2022 09:48-0500 Body height 162.6 cm ARJUN SLAUGHTER MD [facility] 10-01-2022 09:48-0500 Body temperature 97.52 [degF] ARJUN SLAUGHTER MD [facility] 10-01-2022 09:48-0500 Body weight 72.7 kg ARJUN SLAUGHTER MD [facility] 10-01-2022 09:48-0500 Diastolic blood pressure 68 mm[Hg] ARJUN SLAUGHTER MD [facility] 10-01-2022 09:48-0500 Heart rate 69 /min ARJUN SLAUGHTER MD [facility] 10-01-2022 09:48-0500 Respiratory rate 22 /min ARJUN SLAUGHTER MD [facility] 10-01-2022 09:48-0500 Systolic blood pressure 117 mm[Hg] ARJUN SLAUGHTER MD [facility] 09-06-2022 12:11-0400 Body height 162.56 cm [facility] Work Phone: 09-06-2022 12:11-0400 Body mass index (BMI) [Ratio] 28 kg/m2 [facility] Work Phone: 09-06-2022 12:11-0400 Body temperature 96.9 [degF] [facility] Work Phone: 09-06-2022 12:11-0400 Body weight 74.1 kg [facility] Work Phone: 09-06-2022 12:11-0400 Diastolic blood pressure 86 mm[Hg] [facility] Work Phone: 09-06-2022 12:11-0400 Heart rate 69 /min [facility] Work Phone: 09-06-2022 12:11-0400 Respiratory rate 17 /min [facility] Work Phone: 09-06-2022 12:11-0400 SaO2% (BldA) [Mass fraction] 97 % [facility] Work Phone: 09-06-2022 12:11-0400 Systolic blood pressure 126 mm[Hg] [facility] Work Phone: 08-24-2022 11:56-0400 Body height 162.56 cm [facility] Work Phone: 08-24-2022 11:56-0400 Body mass index (BMI) [Ratio] 27.2 kg/m2 [facility] Work Phone: 08-24-2022 11:56-0400 Body temperature 97.2 [degF] [facility] Work Phone: 08-24-2022 11:56-0400 Body weight 71.93 kg [facility] Work Phone: 08-24-2022 11:56-0400 Diastolic blood pressure 77 mm[Hg] [facility] Work Phone: 08-24-2022 11:56-0400 Heart rate 60 /min [facility] Work Phone: 08-24-2022 11:56-0400 Respiratory rate 18 /min [facility] Work Phone: 08-24-2022 11:56-0400 SaO2% (BldA) [Mass fraction] 100 % [facility] Work Phone: 08-24-2022 11:56-0400 Systolic blood pressure 114 mm[Hg] [facility] Work Phone: 07-25-2022 09:01-0400 Body weight 73.94 kg Farzana Llamas PA-C Work Phone: [facility] 07-25-2022 09:01-0400 Diastolic blood pressure 70 mm[Hg] Farzana Llamas PA-C Work Phone: [facility] 07-25-2022 09:01-0400 Heart rate 68 /min Farzana Llamas PA-C Work Phone: [facility] 07-25-2022 09:01-0400 Respiratory rate 18 /min Farzana Llamas PA-C Work Phone: [facility] 07-25-2022 09:01-0400 SaO2% (BldA) [Mass fraction] 94 % Farzana Llamas PA-C Work Phone: [facility] 07-25-2022 09:01-0400 Systolic blood pressure 102 mm[Hg] Farzana Llamas PA-C Work Phone: [facility] 06-25-2022 07:28-0400 Body temperature 97.39 [degF] Farzana Llamas PA-C Work Phone: [facility] 06-25-2022 07:28-0400 Body weight 76.66 kg Farzana Llamas PA-C Work Phone: [facility] 06-25-2022 07:28-0400 Diastolic blood pressure 72 mm[Hg] Farzana Llamas PA-C Work Phone: [facility] 06-25-2022 07:28-0400 Heart rate 88 /min Farzana Llamas PA-C Work Phone: [facility] 06-25-2022 07:28-0400 Respiratory rate 18 /min Farzana Llamas PA-C Work Phone: [facility] 06-25-2022 07:28-0400 Systolic blood pressure 100 mm[Hg] Farzana Llamas PA-C Work Phone: [facility] 06-18-2022 11:50-0400 Diastolic blood pressure 68 mm[Hg] [facility] Work Phone: 06-18-2022 11:50-0400 Heart rate 71 /min [facility] Work Phone: 06-18-2022 11:50-0400 Respiratory rate 15 /min [facility] Work Phone: 06-18-2022 11:50-0400 SaO2% (BldA) [Mass fraction] 98 % [facility] Work Phone: 06-18-2022 11:50-0400 Systolic blood pressure 134 mm[Hg] [facility] Work Phone: 06-18-2022 10:25-0400 Body height 162.56 cm [facility] Work Phone: 06-18-2022 10:25-0400 Body mass index (BMI) [Ratio] 29.5 kg/m2 [facility] Work Phone: 06-18-2022 10:25-0400 Body temperature 97.9 [degF] [facility] Work Phone: 06-18-2022 10:25-0400 Body weight 78.01 kg [facility] Work Phone: 04-16-2022 13:44-0400 Body temperature 98.1 [degF] Farzana Llamas PA-C Work Phone: [facility] 04-16-2022 13:44-0400 Body weight 78.02 kg Farzana Llamas PA-C Work Phone: [facility] 04-16-2022 13:44-0400 Diastolic blood pressure 60 mm[Hg] Farzana Llamas PA-C Work Phone: [facility] 04-16-2022 13:44-0400 Heart rate 60 /min Farzana Llamas PA-C Work Phone: [facility] 04-16-2022 13:44-0400 Respiratory rate 16 /min Farzana Llamas PA-C Work Phone: [facility] 04-16-2022 13:44-0400 Systolic blood pressure 82 mm[Hg] Farzana Llamas PA-C Work Phone: [facility] 03-06-2022 12:16-0400 Heart rate 58 /min Dr. Earnest Dueñas Work Phone: [facility] Work Phone: 03-06-2022 12:16-0400 Respiratory rate 16 /min Dr. Earnest Dueñas Work Phone: [facility] Work Phone: 03-06-2022 12:16-0400 SaO2% (BldA) [Mass fraction] 97 % Dr. Earnest Dueñas Work Phone: [facility] Work Phone: 03-06-2022 10:17-0400 Body height 162.[address] Earnest Dueñas Work Phone: [facility] Work Phone: 03-06-2022 10:17-0400 Body mass index (BMI) [Ratio] 29.2 kg/m2 Dr. Earnest Dueñas Work Phone: [facility] Work Phone: 03-06-2022 10:17-0400 Body temperature 96.7 [degF] Dr. Earnest Dueñas Work Phone: [facility] Work Phone: 03-06-2022 10:17-0400 Body weight 77.[address] Earnest Dueñas Work Phone: [facility] Work Phone: 03-06-2022 10:17-0400 Diastolic blood pressure 75 mm[Hg] Dr. Earnest Dueñas Work Phone: [facility] Work Phone: 03-06-2022 10:17-0400 Systolic blood pressure 130 mm[Hg] Dr. Earnest Dueñas Work Phone: [facility] Work Phone: 03-06-2022 09:41-0400 Body weight 79.65 kg Earnest Ramirez COMPANY LABORER.PRODUCT FINISHER Work Phone: [facility] 03-06-2022 09:41-0400 Diastolic blood pressure 78 mm[Hg] Earnest Ramirez COMPANY LABORER.PRODUCT FINISHER Work Phone: [facility] 03-06-2022 09:41-0400 Heart rate 64 /min Earnest Ramirez COMPANY LABORER.PRODUCT FINISHER Work Phone: [facility] 03-06-2022 09:41-0400 Respiratory rate 20 /min Earnest Ramirez COMPANY LABORER.PRODUCT FINISHER Work Phone: [facility] 03-06-2022 09:41-0400 SaO2% (BldA) [Mass fraction] 98 % Earnest Ramirez COMPANY LABORER.PRODUCT FINISHER Work Phone: [facility] 03-06-2022 09:41-0400 Systolic blood pressure 120 mm[Hg] Earnest Ramirez COMPANY LABORER.PRODUCT FINISHER Work Phone: [facility] 01-28-2022 09:00-0500 Body mass index (BMI) [Ratio] 30.4 kg/m2 Dr. Earnest Dueñas Work Phone: [facility] Work Phone: 01-28-2022 09:00-0500 Body temperature 97.4 [degF] Dr. Earnest Dueñas Work Phone: [facility] Work Phone: 01-28-2022 09:00-0500 Body weight 80.[address] Earnest Dueñas Work Phone: [facility] Work Phone: 01-28-2022 09:00-0500 Diastolic blood pressure 83 mm[Hg] Dr. Earnest Dueñas Work Phone: [facility] Work Phone: 01-28-2022 09:00-0500 Heart rate 60 /min Dr. Earnest Dueñas Work Phone: [facility] Work Phone: 01-28-2022 09:00-0500 Respiratory rate 17 /min Dr. Earnest Dueñas Work Phone: [facility] Work Phone: 01-28-2022 09:00-0500 SaO2% (BldA) [Mass fraction] 99 % Dr. Earnest Dueñas Work Phone: [facility] Work Phone: 01-28-2022 09:00-0500 Systolic blood pressure 132 mm[Hg] Dr. Earnest Dueñas Work Phone: [facility] Work Phone: 01-26-2022 22:21-0500 Diastolic blood pressure 62 mm[Hg] Dr. Earnest Dueñas Work Phone: [facility] Work Phone: 01-26-2022 22:21-0500 Heart rate 68 /min Dr. Earnest Dueñas Work Phone: [facility] Work Phone: 01-26-2022 22:21-0500 Respiratory rate 16 /min Dr. Earnest Dueñas Work Phone: [facility] Work Phone: 01-26-2022 22:21-0500 SaO2% (BldA) [Mass fraction] 97 % Dr. Earnest Dueñas Work Phone: [facility] Work Phone: 01-26-2022 22:21-0500 Systolic blood pressure 110 mm[Hg] Dr. Earnest Dueñas Work Phone: [facility] Work Phone: 01-26-2022 16:34-0500 Body mass index (BMI) [Ratio] 30.4 kg/m2 Dr. Earnest Dueñas Work Phone: [facility] Work Phone: 01-26-2022 16:34-0500 Body temperature 96.8 [degF] Dr. Earnest Dueñas Work Phone: [facility] Work Phone: 01-26-2022 16:34-0500 Body weight 80.[address] Earnest Dueñas Work Phone: [facility] Work Phone: 01-22-2022 14:23-0500 Body temperature 98.4 [degF] Dr. Earnest Dueñas Work Phone: [facility] Work Phone: 01-22-2022 14:23-0500 Diastolic blood pressure 78 mm[Hg] Dr. Earnest Dueñas Work Phone: [facility] Work Phone: 01-22-2022 14:23-0500 Heart rate 78 /min Dr. Earnest Dueñas Work Phone: [facility] Work Phone: 01-22-2022 14:23-0500 Respiratory rate 14 /min Dr. Earnest Dueñas Work Phone: [facility] Work Phone: 01-22-2022 14:23-0500 SaO2% (BldA) [Mass fraction] 98 % Dr. Earnest Dueñas Work Phone: [facility] Work Phone: 01-22-2022 14:23-0500 Systolic blood pressure 125 mm[Hg] Dr. Earnest Dueñas Work Phone: [facility] Work Phone: 01-22-2022 11:07-0500 Body mass index (BMI) [Ratio] 29.2 kg/m2 Dr. Earnest Dueñas Work Phone: [facility] Work Phone: 01-22-2022 11:07-0500 Body weight 77.[address] Earnest Dueñas Work Phone: [facility] Work Phone: Encounters Encounter Date Encounter Type Care Provider Facility Start: 09-05-2025 End: 09-05-2025 ambulatory EARNEST DUEÑAS Facility:[facility] Start: 09-05-2025 Patient encounter procedure EARNEST DUEÑAS [facility] Start: 09-05-2025 End: 09-05-2025 ambulatory EARNEST DUEÑAS Facility:[facility] Start: 07-27-2025 End: 07-27-2025 Patient encounter procedure Jess MARTIN Work Phone: [facility] [place] Comment on above: Sciatica, right side (Primary Dx) Start: 07-27-2025 End: 07-27-2025 ambulatory JESS ELLIS Facility:[facility] Start: 07-21-2025 ambulatory [facility] Facility: [facility] Start: 07-21-2025 End: 07-24-2025 Evaluation and management of inpatient [facility] Facility:[facility] Start: 05-16-2025 End: 05-16-2025 Chart abstracting Earnest Dueñas MD Work Phone: [facility] [place] Comment on above: Received Outside Med ical Records ([facility] admission) Start: 05-11-2025 ambulatory Marck David Fac ility:[facility] Start: 05-11-2025 End: 05-15-2025 Evaluation and management of inpatient Marck David Facility:[facility] Start: 03-31-2025 End: 03-31-2025 Follow-up encounter Farzana Llamas PA-C Work Phone: [facility] [place] Start: 03-30-2025 ambulatory JOAN TALLEY Facilit y:[facility] Start: 03-30-2025 End: 03-30-2025 Subsequent hospital visit by physician Screen [facility] Comment on above: Encounter for screen ing mammogram for breast cancer [Z12.31] Start: 03-14-2025 End: 03-14-2025 Chart abstracting Shira Macdonald MA [facility] [place] Comment on above: Hospital F/U ([facility] - Discharge ) Start: 03-07-2025 End: 03-07-2025 Chart abstracting Shira Macdonald MA [facility] [place] Comment on above: ER F/U ([facility] /) Start: 03-05-2025 ambulatory Jeffry Kesha Facility:[facility] Start: 03-05-2025 End: 03-08-2025 Evaluation and management of inpatient Jeffry Cortez Facility:[facility] Start: 03-02-2025 End: 03-02-2025 Follow-up encounter Joan Talley APRN.CNP Work Phone: [facility] [place] Start: 02-28-2025 End: 02-28-2025 ambulatory EARNEST DUEÑAS Facility:[facility] Start: 02-28-2025 End: 02-28-2025 Patient encounter procedure Joan Talley APRN.CNP Work Phone: [facility] [place] Comment on above: Well adult exam (Emily [...] encounter status Joan Talley APRN.CNP Work Phone: [facility] Start: 02-22-2025 End: 02-23-2025 Telephone encounter Earnest Dueñas MD Work Phone: [facility] [place] Comment on above: Patient Update Start: 02-21-2025 End: 02-21-2025 ambulatory EARNEST DUEÑAS Facility:[facility] Start: 02-16-2025 End: 02-16-2025 ambulatory EARNEST DEUÑAS Facility:[facility] Start: 02-08-2025 End: 02-08-2025 Follow-up encounter Farzana Llamas PA-C Work Phone: [facility] [place] Start: 01-23-2025 End: 02-03-2025 ambulatory Amita DiLauro Facility:[facility] Start: 01-06-2025 End: 01-20-2025 ambulatory Demarcus Stanley Facility:[facility] Start: 12-26-2024 End: 01-20-2025 ambulatory Amita DiLauro Facility:[facility] Start: 12-02-2024 End: 12-23-2024 ambulatory Amita DiLauro Facility:[facility] Start: 11-11-2024 End: 11-11-2024 Chart abstracting Earnest Dueñas MD Work Phone: [facility] [place] Comment on above: ER Discharge Summary (H&P) Start: 11-10-2024 ambulatory Kayli Slater Facility:[facility] Start: 11-10-2024 End: 11-12-2024 Evaluation and management of inpatient Kayli Slater Facility:[facility] Start: 11-01-2024 End: 11-01-2024 ambulatory EARNEST DUEÑAS Facility:[facility] Start: 11-01-2024 End: 11-01-2024 Patient encounter procedure Jess MARTIN Work Phone: [facility] Comment on above: Sinobronchitis (Prim kerri Dx) Start: 10-06-2024 End: 10-06-2024 Telephone encounter Farzana Llamas PA-C Work Phone: [facility] [place] Comment on above: Appointment Start: 09-23-2024 End: 10-14-2024 ambulatory Amita DiLauro Facility:[facility] Start: 08-23-2024 End: 09-22-2024 ambulatory Amita DiLauro Facility:[facility] Start: 08-18-2024 End: 08-18-2024 Chart abstracting Earnest Dueñas MD Work Phone: [facility] [place] Start: 08-17-2024 End: 08-17-2024 ambulatory [facility] Facility:[facility] Start: 08-15-2024 End: 08-22-2024 ambulatory [facility] Facility:[facility] Start: 08-08-2024 End: 08-08-2024 Chart abstracting Earnest Dueñas MD Work Phone: [facility] [place] Comment on above: ER Discharge Summary Start: 08-05-2024 End: 08-06-2024 Telephone encounter Vivi Ashraf APRN.PRODUCT FINISHER Work Phone: [facility] Comment on above: Results Start: 08-05-2024 End: 08-05-2024 Emergency department patient visit Calvin Jessica Facility:[facility] Start: 08-04-2024 End: 08-04-2024 Patient encounter procedure Vonnie Macdonald APRN.PRODUCT FINISHER Work Phone: [facility] Comment on above: Dysuria (Primary Dx) ; Recurrent UTI (urinary tract infection) Start: 07-19-2024 End: 07-19-2024 Chart abstracting Shira Macdonald MA [facility] [place] Start: 07-14-2024 End: 07-14-2024 Chart abstracting Earnest Dueñas MD Work Phone: [facility] [place] Comment on above: ER Discharge Summary Start: 05-20-2024 Patient encounter procedure Earnest Dueñas MD Work Phone: [facility] Start: 04-15-2024 Telephone encounter Farzana summers PA-C Work Phone: [facility] [place] Comment on above: Appointment Start: 03-29-2024 Documentation procedure Mammog jessica Coordinator [facility] Start: 03-29-2024 Letter encounter Mammography Coordinator [facility] Start: 03-29-2024 Telephone encounter Earnest Dueñas MD Work Phone: [facility] [place] Comment on above: Results Start: 03-28-2024 End: 03-28-2024 Subsequent hospital visit by physician Screen Mammo [facility] Comment on above: Encounter for screen ing for malignant neoplasm of breast, unspecified screening modality [Z12.39] Start: 03-23-2024 Telephone encounter Farzana summers PA-C Work Phone: [facility] [place] Comment on above: Results Start: 03-21-2024 End: 03-21-2024 Patient encounter procedure Mima Royal COMPANY LABORER.PRODUCT FINISHER Work Phone: [facility] Comment on above: Cellulitis of right upper arm (Primary Dx) Start: 03-17-2024 Telephone encounter Farzana summers PA-C Work Phone: [facility] [place] Comment on above: Results Start: 03-16-2024 Patient encounter status Florentino Llamas PA-C Work Phone: [facility] Start: 03-16-2024 End: 03-16-2024 Subsequent hospital visit by physician Kaci [facility] [place] Work Phone: Radiology Comment on above: Left hip pain [M25.5 52] Start: 03-16-2024 End: 03-16-2024 Patient encounter procedure Farzana Llamas PA-C Work Phone: [facility] [place] Comment on above: Well adult exam (Emily bateman Dx); Alcohol dependence in remission (HCC); Moderate [...] pain Start: 02-29-2024 Telephone encounter Mima coburn COMPANY LABORER.PRODUCT FINISHER Work Phone: [facility] Comment on above: Results Start: 02-29-2024 End: 02-29-2024 Subsequent hospital visit by physician Kaci [facility] [place] Work Phone: Radiology Comment on above: URI, acute [J06.9] Start: 02-29-2024 End: 02-29-2024 Patient encounter procedure Mima Royal APRN.PRODUCT FINISHER Work Phone: [facility] Comment on above: URI, acute (Primary Dx); Acute cough; Conjunctivitis of both eyes, unspecified conjunctivitis type Start: 07-31-2023 Chart abstracting Earnest aparicio MD Work Phone: [facility] [place] Comment on above: ext document (Uro Pr ocedure) Start: 07-29-2023 ambulatory Earnest chanel MD Work Phone: [facility] Start: 07-28-2023 Chart abstracting Earnest aparicio MD Work Phone: [facility] [place] Comment on above: Outside [id number] Ordered Start: 04-05-2023 Telephone encounter Earnest Dueñas MD Work Phone: [facility] Comment on above: Results Start: 04-04-2023 End: 04-04-2023 Patient encounter procedure Beverly Kovacs COMPANY LABORER.PRODUCT FINISHER Work Phone: [facility] Comment on above: Sore throat (Primary Dx); Flu-like symptoms; Nausea and vomiting, unspecified vomiting type Start: 03-24-2023 Telephone encounter Fabian mahoney APRN.PRODUCT FINISHER Work Phone: [facility] Comment on above: Results Start: 03-23-2023 End: 03-23-2023 Patient encounter procedure Jess MARTIN Work Phone: [facility] Comment on above: URI, acute (Primary Dx); Sore throat Start: 01-09-2023 Chart abstracting Earnest aparicio MD Work Phone: [facility] [place] Comment on above: Consult Start: 12-16-2022 Telephone encounter Farzana summers PA-C Work Phone: [facility] [place] Comment on above: Results Start: 12-15-2022 End: 12-15-2022 Patient encounter procedure Farzana Llamas PA-C Work Phone: [facility] Comment on above: EDER (generalized anx iety [...] Emergency department patient visit ARJUN SLAUGHTER MD [facility] Start: 09-06-2022 End: 09-06-2022 Emergency department patient visit [facility] Start: 08-24-2022 End: 08-24-2022 Emergency department patient visit [facility] Start: 08-20-2022 ambulatory Earnest chanel MD Work Phone: Internal Medicine [facility] Start: 07-25-2022 End: 07-25-2022 Office outpatient visit 25 minutes Farzana Llamas PA-C Work Phone: [facility] [place] Comment on above: Moderate episode of recurrent major depressive disorder (HCC) (Primary Dx) Start: 06-25-2022 End: 06-25-2022 Patient encounter procedure Farzana Llamas PA-C Work Phone: [facility] [place] Comment on above: Right lower quadrant abdominal pain (Primary Dx) Start: 06-22-2022 End: 06-22-2022 Patient encounter procedure Sona Obando PA-C Work Phone: [facility] Comment on above: APPOINTMENT CANCELLE D (Primary Dx) Start: 06-18-2022 End: 06-18-2022 Emergency department patient visit [facility] Start: 04-16-2022 End: 04-16-2022 Patient encounter procedure Farzana Llamas PA-C Work Phone: [facility] [place] Comment on above: Chest pain, unspecif ied type (Primary Dx); HERNANDEZ (dyspnea on exertion); Palpitations; Current moderate episode of major depressive disorder, unspecified whether recurrent (HCC) Start: 03-06-2022 End: 03-06-2022 Emergency department patient visit Dr. Earnest Dueñas Work Phone: [facility] Start: 03-06-2022 End: 03-06-2022 Patient encounter procedure Earnest Ramirez APRN.PRODUCT FINISHER Work Phone: [facility] Comment on above: Right flank pain (Pr imary Dx) Start: 01-28-2022 End: 01-28-[address] Earnest Dueñas Work Phone: [facility] Start: 01-26-2022 End: 01-26-2022 Emergency department patient visit Dr. Earnest Dueñas Work Phone: [facility] Start: 01-22-2022 End: 01-22-2022 Emergency department patient visit Dr[facility]arn[facility] Start: 04-13-2021 End: 04-13-2021 Subsequent hospital visit by physician [facility] Work Phone: Radiology Comment on above: Neck pain [M54.2] Start: 12-27-2018 Patient encounter procedure Hernesto Phan Facility:[facility] Start: 12-27-2018 End: 12-30-2018 Evaluation and management of inpatient Jose Carlos PHAN [facility] Start: 08-29-2016 Patient encounter status Elder Ramirez APRN.PRODUCT FINISHER Work Phone: [facility] Work Phone: Procedures Date Procedure Procedure Detail Performing Clinician Start: 08-04-2024 Urnls dip stick/tabl et rgnt auto w/o microscopy Vonnie Macdonald APRN.PRODUCT FINISHER Work Phone: Start: 03-16-2024 Radex hip unilateral with pelvis 2-3 views Farzana Llamas PA-C Work Phone: Start: 03-16-2024 Lipid 1996 panel - S alison or Plasma Farzana Llamas PA-C Work Phone: Start: 02-29-2024 COVID & INFLUENZA A/ B & RSV NAAT, ROUTINE Mima Royal COMPANY LABORER.PRODUCT FINISHER Work Phone: Start: 02-29-2024 Radiologic exam ches t 2 views Mima Royal COMPANY LABORER.PRODUCT FINISHER Work Phone: Start: 04-04-2023 STREP A MOLECULAR (POC) Beverly Kovacs COMPANY LABORER.PRODUCT FINISHER Work Phone: Start: 03-23-2023 COVID WITH FLUA+B, ROUTINE Jess MARTIN Work Phone: Start: 03-23-2023 STREP A MOLECULAR (POC) Jess MARTIN Work Phone: Start: 12-15-2022 Lipid 1996 panel - S alison or Plasma Mima Royal COMPANY LABORER.PRODUCT FINISHER Work Phone: Start: 08-24-2022 X-ray of cervical spine Start: 03-06-2022 Urnls dip stick/tabl et rgnt auto w/o microscopy [facility] Provider Start: 01-26-2022 Computed tomography of abdomen and pelvis with intravenous contrast Dr. Earnest Dueñas Work Phone: Start: 01-22-2022 US scan of gallbladder Dr. Earnest Dueñas Work Phone: Start: 07-09-2021 Mammography Earnest bond COMPANY LABORER.PRODUCT FINISHER Work Phone: Start: 04-13-2021 Radex spine cervical 4 or 5 views Earnest Dueñas MD Work Phone: Start: 12-27-2018 Excision of Right Mendez nd Tendon, Open Approach NA EMILIE Start: 04-18-2015 Colonoscopy Earnest bond COMPANY LABORER.PRODUCT FINISHER Work Phone: Plan of Treatment Date Care Activity Detail Author Start: 2040 RSV Vaccine (1 - 1-d ose 75+ series) RSV Vaccine (1 - 1-dose 75+ series) [facility] Start: 03-16-2029 Lipid panel Lipid Screening [facility] Start: 02-29-2028 Diabetes Screening Diabetes Screenin g [facility] Start: 02-17-2028 Diabetes Screening Diabetes Screenin g [facility] Start: 02-02-2028 Screening for malign ant neoplasm of colon [facility] Start: 12-15-2027 Lipid panel Lipid Screening [facility] Start: 12-15-2027 LIPID SCREEN LIPID SCREEN [facility] Start: 03-16-2027 Diabetes Screening Diabetes Screenin g [facility] Start: 07-17-2026 LIPID SCREEN LIPID SCREEN [facility] Start: 03-30-2026 Screening for malign ant neoplasm of breast Mammogram Screening [facility] Start: 02-28-2026 Annual PCP Team Engineering Faculty isuaro Disease Visit Annual PCP Team Chronic Disease Visit [facility] Start: 02-28-2026 Covid-19 Vaccine ( season) Covid-19 Vaccine () [facility] Comment on above: Postponed from 07/24 (Declined at this time) Start: 02-28-2026 Shingrix Vaccine (2 of 2) Shingrix Vaccine (2 of 2) [facility] Comment on above: Postponed from 05/11 (Declined at this time) Start: 12-15-2025 DIABETES SCREEN DIABETES SCREEN [facility] Start: 12-15-2025 Diabetes Screening Diabetes Screenin g [facility] Start: 09-05-2025 End: 09-05-2025 Patient encounter procedure 09/05/2025 10:20 AM EDT Office Visit [facility] [place] [address] [place] [address] Earnest Dueñas MD [address] [place] [id number] physical [facility] [place] Comment on above: physical Start: 07-24-2025 Influenza vaccination [facility] Start: 06-01-2025 End: 08-31-2025 25-hydroxyvitamin D3 [Mass/volume] in Serum or Plasma VITAMIN D 25 HYDROXY Lab Routine Vitamin D deficiency Expected: 06/01/2025, Expires: 08/31/2025 [facility] Work Phone: Comment on above: Expected: 06/01/2025 , Expires: 08/31/2025 Start: 05-22-2025 Influenza vaccination Influenza Vacc ine (#1) [facility] Comment on above: Postponed from 07/24 (Declined at this time) Start: 04-27-2025 End: 04-27-2025 Patient encounter procedure 04/27/2025 11:30 AM EDT Office Visit Pulmonary Medicine [address] [place], [place] [id number] Nicolle Carolina APRN.PRODUCT FINISHER [address] [place] [address] Encounter for screening for lung cancer [Z12.2] [facility] Comment on above: Encounter for screen ing for lung cancer [Z12.2] Start: 03-30-2025 End: 03-30-2025 Patient encounter procedure 03/30/2025 11:10 AM EDT Appointment Mammogram [address] [place], [place] [id number] Encounter for screening mammogram for breast cancer [Z12.31] Mammogram Comment on above: Encounter for screen ing mammogram for breast cancer [Z12.31] Start: 03-28-2025 Screening for malign ant neoplasm of breast Mammogram Screening [facility] Start: 03-16-2025 Annual PCP Team Engineering Faculty isauro Disease Visit Annual PCP Team Chronic Disease Visit [facility] Start: 03-16-2025 Covid-19 Vaccine ( season) Covid-19 Vaccine () [facility] Comment on above: Postponed from 07/24 (Declined at this time) Start: 03-16-2025 Urine microalbumin profile DTaP,Tdap,Td Vaccine (1 - Tdap) [facility] Comment on above: Postponed from 09/30 (Declined at this time) Start: 03-16-2025 End: 03-16-2025 Patient encounter procedure 03/16/2025 10:30 AM EDT Office Visit Pulmonary Medicine [address] [place] [address] Nicolle Carolina APRN.PRODUCT FINISHER [address] [place] [address] Encounter for screening for lung cancer [Z12.2] Pulmonary Medicine Comment on above: Encounter for screen ing for lung cancer [Z12.2] Start: 03-02-2025 End: 03-02-2025 Patient encounter procedure 03/02/2025 12:50 PM EDT Appointment Mammogram [address] [place] [address] Encounter for screening mammogram for breast cancer [Z12.31] Mammogram Comment on above: Encounter for screen ing mammogram for breast cancer [Z12.31] Start: 02-28-2025 End: 05-30-2025 25-hydroxyvitamin D3 [Mass/volume] in Serum or Plasma [facility] Comment on above: Expected: 02/28/2025 , Expires: 05/30/2025 Start: 02-28-2025 End: 05-30-2025 Cobalamin (Vitamin B12) [Mass/volume] in Serum or Plasma [facility] Comment on above: Expected: 02/28/2025 , Expires: 05/30/2025 Start: 02-28-2025 End: 05-30-2025 Hemoglobin A1c in Blood [facility] Comment on above: Expected: 02/28/2025 , Expires: 05/30/2025 Start: 02-28-2025 End: 05-30-2025 Magnesium [Mass/volume] in Serum or Plasma [facility] Comment on above: Expected: 02/28/2025 , Expires: 05/30/2025 Start: 02-28-2025 End: 05-30-2025 Thyrotropin [Units/volume] in Serum or Plasma [facility] Work Phone: Comment on above: Expected: 02/28/2025 , Expires: 05/30/2025 Start: 02-28-2025 End: 02-28-2025 Patient encounter procedure 02/28/2025 11:20 AM EDT Office Visit Family [facility] [place] [address] [facility], [place] [phone] Joan Talley APRN.PRODUCT FINISHER [address] [facility], [place] [address] Wellness [facility] [place] Comment on above: Wellness Start: 11-23-2024 Medicare Advantage Annual Wellness Visit Medicare Advantage Annual Wellness Visit [facility] Start: 07-24-2024 Covid-19 Vaccine () Covid-19 Vaccine () [facility] Start: 07-24-2024 Covid-19 Vaccine () Covid-19 Vaccine () [facility] Start: 07-24-[address] [facility] Start: 07-17-2024 DIABETES SCREEN DIABETES SCREEN [facility] Start: 05-17-2024 End: 08-16-2024 25-hydroxyvitamin D3 [Mass/volume] in Serum or Plasma VITAMIN D 25 HYDROXY Lab Routine Vitamin D deficiency Expected: 05/17/2024, Expires: 08/16/2024 [facility] Work Phone: Comment on above: Expected: 05/17/2024 , Expires: 08/16/2024 Start: 05-15-2024 Hzv zoster vacc recombinant adjuvanted im njx ZOSTER VACCINE, RECOMBINANT (SHINGRIX) Immunization/Injection Routine Encounter for immunization Expected: 05/15/2024 [facility] Comment on above: Expected: 05/15/2024 Start: 05-11-2024 Shingrix Vaccine (2 of 2) Shingrix Vaccine (2 of 2) [facility] Start: 04-13-2024 End: 04-13-2024 Patient encounter procedure 04/13/2024 10:20 AM EDT Office Visit [facility] [place] [address] [facility], [place] [phone] Farzana Llamas PA-C [address] [facility], [place] [phone] 4 wk follow up [facility] [place] Comment on above: 4 wk follow up Start: 03-28-2024 End: 03-28-2024 Patient encounter procedure 03/28/2024 12:50 PM EDT Appointment Mammogram [address] [place] [phone] Encounter for screening for malignant neoplasm of breast, unspecified screening ... Mammogram Comment on above: Encounter for screen ing for malignant neoplasm of breast, unspecified screening ... Start: 03-21-2024 End: 03-21-2024 Patient encounter procedure 03/21/2024 11:10 AM EDT Appointment Mammogram [address] [place] [address] Encounter for screening for malignant neoplasm of breast, unspecified screening modality [Z12.39] Mammogram Comment on above: Encounter for screen ing for malignant neoplasm of breast, unspecified screening modality [Z12.39] Start: 03-16-2024 End: 06-15-2024 25-hydroxyvitamin D3 [Mass/volume] in Serum or Plasma [facility] Comment on above: Expected: 03/16/2024 , Expires: 06/15/2024 Start: 03-16-2024 End: 06-15-2024 Cobalamin (Vitamin B12) [Mass/volume] in Serum or Plasma [facility] Comment on above: Expected: 03/16/2024 , Expires: 06/15/2024 Start: 03-16-2024 End: 06-15-2024 Comprehensive metabolic 2000 panel - Serum or Plasma [facility] Comment on above: Expected: 03/16/2024 , Expires: 06/15/2024 Start: 03-16-2024 End: 06-15-2024 Hemoglobin A1c in Blood [facility] Comment on above: Expected: 03/16/2024 , Expires: 06/15/2024 Start: 03-16-2024 End: 06-15-2024 LIPID PANEL, NONFASTING [facility] Comment on above: Expected: 03/16/2024 , Expires: 06/15/2024 Start: 03-16-2024 End: 06-15-2024 Magnesium [Mass/volume] in Serum or Plasma [facility] Comment on above: Expected: 03/16/2024 , Expires: 06/15/2024 Start: 03-16-2024 End: 06-15-2024 Thyrotropin [Units/volume] in Serum or Plasma [facility] Work Phone: Comment on above: Expected: 03/16/2024 , Expires: 06/15/2024 Start: 03-16-2024 End: 06-15-2024 Thyroxine (T4) free [Mass/volume] in Serum or Plasma [facility] Comment on above: Expected: 03/16/2024 , Expires: 06/15/2024 Start: 01-03-2024 PAP TESTING PAP TESTING [facility] Start: 01-03-2024 Screening for malign ant neoplasm of cervix Pap Testing [facility] Start: 12-15-2023 ANNUAL PCP TEAM HOME CARE PROVIDER ISAURO DISEASE VISIT ANNUAL PCP TEAM CHRONIC DISEASE VISIT [facility] Start: 07-25-2023 ANNUAL PCP TEAM HOME CARE PROVIDER ISAURO DISEASE VISIT ANNUAL PCP TEAM CHRONIC DISEASE VISIT [facility] Start: 07-24-2023 Covid-19 Vaccine () Covid-19 Vaccine () [facility] Start: 07-24-2023 Influenza vaccination [facility] [facility] Start: 06-25-2023 ANNUAL PCP TEAM HOME CARE PROVIDER [place]AURO DISEASE VISIT ANNUAL PCP TEAM CHRONIC DISEASE VISIT [facility] Start: 04-16-2023 ANNUAL PCP TEAM HOME CARE PROVIDER ISAURO DISEASE VISIT ANNUAL PCP TEAM CHRONIC DISEASE VISIT [facility] Start: 01-24-2023 ANNUAL PCP TEAM HOME CARE PROVIDER [place]AURO DISEASE VISIT ANNUAL PCP TEAM CHRONIC DISEASE VISIT [facility] Start: 01-24-2023 Urine microalbumin profile DTAP,TDAP,TD (1 - Tdap) [facility] Comment on above: Postponed from 09/30 (Declined at this time) Start: 12-15-2022 End: 02-14-2023 Comprehensive metabolic 2000 panel - Serum or Plasma [facility] Work Phone: Comment on above: Expected: 12/15/2022 , Expires: 02/14/2023 Start: 12-15-2022 End: 02-14-2023 Hemoglobin A1c in Blood [facility] Work Phone: Comment on above: Expected: 12/15/2022 , Expires: 02/14/2023 Start: 12-15-2022 End: 02-14-2023 LIPID PANEL, NONFASTING [facility] Work Phone: Comment on above: Expected: 12/15/2022 , Expires: 02/14/2023 Start: 12-15-2022 End: 02-14-2023 Thyrotropin [Units/volume] in Serum or Plasma [facility] Work Phone: Comment on above: Expected: 12/15/2022 , Expires: 02/14/2023 Start: 08-24-2022 X-ray of cervical spine Cerv Spine 2 or 3 Views [facility] Work Phone: Start: 08-24-2022 XR Cervical spine 2 or 3 Views [facility] Work Phone: Start: 07-24-[address] [facility] Start: 07-09-2022 Mammography MAMMOGRAM [facility] Start: 07-09-2022 Screening for malign ant neoplasm of breast Mammogram Screening [facility] Start: 06-01-2022 COVID-19 VACCINE (4 - Booster for Moderna series) COVID-19 VACCINE (4 - Booster for Moderna series) [facility] Start: 03-27-2022 COVID-19 VACCINE (4 - Booster for Moderna series) COVID-19 VACCINE (4 - Booster for Moderna series) [facility] Start: 03-27-2022 COVID-19 VACCINE (4 - Moderna series) COVID-19 VACCINE (4 - Moderna series) [facility] Start: 04-18-2020 Colonoscopy COLONOSCOPY [facility] Start: 04-18-2020 COLORECTAL CANCER SCREENING COLORECTAL CANCER SCREENING [facility] Start: 04-18-2020 Screening for malign ant neoplasm of colon [facility] Start: 04-18-2016 Screening for malign ant neoplasm of colon Colonoscopy [facility] Start: 09-30-2015 Urine microalbumin profile [facility] Start: 2015 Influenza vaccination LUNG CANCER SC REENING [facility] Start: 2015 Screening for malign ant neoplasm of lung Lung Cancer Screening [facility] Start: 2015 SHINGRIX VACCINE (1 of 2) SHINGRIX VACCINE (1 of 2) [facility] Start: 02-25-2012 HPV TESTING HPV TESTING [facility] Start: 02-25-2012 Screening for malign ant neoplasm of cervix HPV Testing [facility] Start: 2010 COLOGUARD (FIT-DNA) COLOGUARD (FIT-D NA) [facility] Start: [address] COLONOGRAPHY [facility] Start: 2010 FECAL OCCULT BLOOD FECAL OCCULT BLOO D [facility] Start: 2010 Screening for malign ant neoplasm of colon [facility] Start: 2010 SIGMOIDOSCOPY SIGMOIDOSCOPY [facility] Start: 1984 ONE PNEUMOVAX PRIOR TO AGE 65 ONE PNEUMOVAX PRIOR TO AGE 65 [facility] Start: 1971 PNEUMOCOCCAL (1 - PCV) PNEUMOCOCCAL (1 - PCV) [facility] Start: 1971 Pneumococcal vaccination Pneum ococcal Vaccine (1 of 2 - PCV) [facility] Bacteria identified in Urine by Culture URINE CULTURE Microbiology Routine Dysuria Ordered: 08/04/2024 [facility] Work Phone: Comment on above: Ordered: 08/04/2024 COLOGUARD COLOGUARD Lab Ro utine Screening for colon cancer Ordered: 03/16/2024 [facility] Comment on above: Ordered: 03/16/2024 End: 03-30-2026 DBT Breast - bilateral screening DAYNA SCREENING W SRIDEVI Radiology Routine Encounter for screening mammogram for breast cancer 1 Occurrences starting 02/28/2025 until 03/30/2026 [facility] Comment on above: 1 Occurrences starti ng 02/28/2025 until 03/30/2026 DBT Breast - bilater al screening DAYNA SCREENING W SRIDEVI Radiology Routine Encounter for screening mammogram for breast cancer 03/30/2025 11:07 AM EDT [facility] Work Phone: End: 04-16-2023 EXERCISE STRESS ECG (WITHOUT IMAGING) EXERCISE STRESS ECG (WITHOUT IMAGING) Cardiology Routine Chest pain, unspecified type HERNANDEZ (dyspnea on exertion) Current moderate episode of major depressive disorder, unspecified whether recurrent (HCC) Palpitations 1 Occurrences starting 04/16/2022 until 04/16/2023 [facility] Work Phone: Comment on above: 1 Occurrences starti ng 04/16/2022 until 04/16/2023 Influenza virus A an d B RNA and SARS-CoV-2 (COVID-19) N gene panel - Respiratory specimen by KALI with probe detection COVID WITH FLUA+B, ROUTINE Microbiology Routine Flu-like symptoms Ordered: 04/04/2023 [facility] Work Phone: Comment on above: Ordered: 04/04/2023 End: 08-27-2024 DAYNA SCREENING DAYNA SCREENING Radiology Routine Encounter for screening mammogram for breast cancer 1 Occurrences starting 07/29/2023 until 08/27/2024 [facility] Work Phone: Comment on above: 1 Occurrences starti ng 07/29/2023 until 08/27/2024 End: 04-15-2025 MG Breast Screening DAYNA SCREENING Radiology Routine Encounter for screening for malignant neoplasm of breast, unspecified screening modality 1 Occurrences starting 03/16/2024 until 04/15/2025 [facility] Comment on above: 1 Occurrences starti ng 03/16/2024 until 04/15/2025 MG Breast Screening DAYNA SCREENIN G Radiology Routine Encounter for screening for malignant neoplasm of breast, unspecified screening modality 03/28/2024 12:56 PM EDT [facility] Work Phone: Patient Education [facility] Work Phone: Patient referral [facility] Work Phone: End: 09-19-2023 Screening mammography bi 2-view breast inc cad DAYNA SCREENING Radiology Routine Encounter for screening mammogram for breast cancer 1 Occurrences starting 08/20/2022 until 09/19/2023 [facility] Work Phone: Comment on above: 1 Occurrences starti ng 08/20/2022 until 09/19/2023 End: 04-15-2025 XR Pelvis and Hip - left AP and Lateral frog XR HIP GENERAL 3V PELV/AP/LAT LEFT Radiology Routine Left hip pain 1 Occurrences starting 03/16/2024 until 04/15/2025 [facility] Comment on above: 1 Occurrences starti ng 03/16/2024 until 04/15/2025 XR Pelvis and Hip - left AP and Lateral frog XR HIP GENERAL 3V PELV/AP/LAT LEFT Radiology Routine Left hip pain 03/16/2024 1:58 PM EDT [facility] Immunizations Immunization Date Immunization Notes Care Provider Tammy holt 03-16-2024 pneumococcal conjuga te (PCV20) vaccine, 20 valent (PREVNAR 20) Farzana Llamas PA-C Work Phone: [facility] 03-16-2024 zoster vaccine recombinant Farzana Llamas PA-C Work Phone: [facility] 03-16-2024 pneumococcal Conjugate, unspecified formulation Farzana Llamas PA-C Work Phone: [facility] 05-21-2021 Covid (Moderna) Dr. Earnest Dueñas Work Phone: [facility] 04-23-2021 Covid (Moderna) Dr. Earnest Dueñas Work Phone: [facility] 08-28-2019 influenza, seasonal, injectable Dr. Earnest Dueñas Work Phone: [facility] Work Phone: 08-28-2019 influenza virus vaccine, unspecified formulation [employer] Royal [employer]ODUCT [employer]ISH[employer] Work Phone: [facility] 09-14-2017 hepatitis A and hepatitis B vaccine Earnest Ramirez [employer].PRODUCT FINISHER Work Phone: [facility] Work Phone: 04-06-2017 hepatitis A and hepatitis B vaccine Earnest Ramirez [employer] LAB[employer]ER.PRODUCT FINISHER Work Phone: [facility] Work Phone: 03-05-2017 hepatitis A and hepatitis B vaccine Earnest Ramirez [employer] LAB[employer]ER.PRODUCT FINISHER Work Phone: [facility] Work Phone: 09-29-2015 tetanus and diphther ia toxoids, adsorbed, preservative free, for adult use (2 Lf of tetanus toxoid and 2 Lf of diphtheria toxoid) Dr. Earnest Dueñas Work Phone: [facility] 09-29-2015 tetanus and diphther ia toxoids, adsorbed, preservative free, for adult use (5 Lf of tetanus toxoid and 2 Lf of diphtheria toxoid) Earnest Ramirez APRN.PRODUCT FINISHER Work Phone: [facility] Payers Date Payer Category Payer Unknown [id number] 2024 Self-pay [id number] 2024 Medicare (Managed Care) [facility] DUAL COMPLETE PPO SNP [id number] 2024 Unknown [id number] 2018 Medicaid [id number]. [id number] 2016 Medicare [id number]. [id number] 2016 Medicare [id number]. 1.13.159.2. [id number] 1965 Unknown [id number] 2.16.840.1.315537.3.579.2. 598 1965 Unknown [id number] 2.16.840.1.425733.3.579.2. 356 1965 Unknown [id number] 2.16.840.1.329911.3.579.2. 627 1959 Unknown [id number] Unknown [facility] [employer] [place] [facility] [place] [employer] [place] [id number] Effective for all dates [address] [place] [address] Other [id number]. [id number] Unknown [id number] 2.16.840.1.184851.3.579.2. 462 Unknown [id number] 2.16.840.1.325998.3.579.2. 462 Unknown [id number] 2.16.840.1.691278.3.579.2. 462 Unknown [id number] 2.16.840.1.618165.3.579.2. 462 Unknown [id number] 2.16.840.1.824102.3.579.2. 462 Unknown [id number] 2.16.840.1.245866.3.579.2. 462 Unknown [id number] 2.16.840.1.559747.3.579.2. 462 Unknown [id number] 2.16.840.1.925414.3.579.2. 462 Unknown [id number] 2.16.840.1.992868.3.579.2. 462 Unknown [id number] 2.16.840.1.204204.3.579.2. 462 Unknown [id number] 2.16.840.1.911446.3.579.2. 462 Unknown [id number] 2.16.840.1.742684.3.579.2. 462 Unknown [id number] 2.16.840.1.367574.3.579.2. 462 Unknown [id number] 2.16.840.1.398867.3.579.2. 462 Unknown [id number] 2.16.840.1.105971.3.579.2. 462 Unknown [id number] 2.16.840.1.634085.3.579.2. 462 Unknown [id number] 2.16.840.1.918344.3.579.2. 462 Unknown [id number] 2.16.840.1.983761.3.579.2. 462 Unknown [id number] 2.16.840.1.746928.3.579.2. 462 Unknown [id number] 2.16.840.1.016276.3.579.2. 462 Unknown [id number] 2.16.840.1.468788.3.579.2. 462 Unknown [id number] 2.16.840.1.074577.3.579.2. 462 Unknown [id number] 2.16.840.1.606565.3.579.2. 462 Unknown [id number] 2.16.840.1.490987.3.579.2. 462 Unknown [id number] 2.16.840.1.041913.3.579.2. 462 Unknown [id number] 2.16.840.1.955349.3.579.2. 462 Unknown [id number] 2.16.840.1.487070.3.579.2. 462 Unknown [id number] 2.16.840.1.660500.3.579.2. 462 Unknown [id number] 2.16.840.1.384840.3.579.2. 462 Unknown [id number] 2.16.840.1.807455.3.579.2. 462 Social History Date Type Detail Facility Start: 03-06-2022 End: 09-06-2022 Tobacco smoking status MTIS Unknown if ever smoked [facility] Work Phone: Start: 08-24-2020 Sober [facility] Work Phone: Start: 05-26-2015 None [facility] Work Phone: Start: 08-25-2020 Cigarettes [facility] Work Phone: Start: 1965 Sex Assigned At Female [facility] Work Phone: Start: 07-25-2022 End: 08-04-2024 Tobacco smoking status NHIS Smokes tobacco daily [facility] Work Phone: History of tobacco use Cigarette Smoker [facility] Start: 03-06-2022 End: 07-27-2025 Alcohol intake Current non-drinker of alcohol (finding) [facility] Start: 04-13-2015 End: 07-25-2022 Tobacco Comment half a pack a day [facility] Start: 1965 Sex Assigned At Not on file [facility] Start: 03-14-2021 End: 07-21-2022 Exposure to SARS-CoV-2 (event) Not sure [facility] Start: 07-25-2022 End: 03-16-2024 Cigarettes smoked current (pack per day) - Reported 0.5 [facility] Start: 07-25-2022 End: 08-04-2024 Tobacco use and exposure Smokeless tobacco non-user [facility] Tobacco smoking status Occasiona l tobacco smoker (finding) [facility] Sex Assigned At Sex [facility] Start: 04-04-2023 End: 03-16-2024 Tobacco use panel [facility] Start: 10-24-2012 Adult Depression Screening Assessment 6 [facility] Functional Status Date Assessment Result Facility 10-01-2022 Functional Status Room check performed [facility] 05-22-2015 Are you deaf, or do you have serious difficulty hearing No 05/22/2015 8:44 AM Chasity Guzman LPN No [facility] 05-22-2015 Are you blind, or do you have serious difficulty seeing, even when wearing glasses No 05/22/2015 8:44 AM Chasity Guzman LPN No [facility] 05-22-2015 Do you have serious difficulty walking or climbing stairs No 05/22/2015 8:44 AM Chasity Guzman LPN No [facility] 05-22-2015 Do you have difficul ty dressing or bathing No 05/22/2015 8:44 AM Chasity Guzman LPN No [facility] 05-22-2015 Because of a physica l, mental, or emotional condition, do you have difficulty doing errands alone such as visiting a physician's office or shopping No 05/22/2015 8:44 AM BLAKET Chasity Corrales LPN No [facility] Mental Status Date Assessment Result Facility 10-01-2022 Mental Status Orientation Oriented x 4 [facility] 09-06-2022 Cognitive function Level Of Cons ciousness Awake;Alert;Appropriate;Fol lows Commands [facility] Work Phone: 03-06-2022 Cognitive function Level Of Cons ciousness Awake;Alert;Appropriate;Fol lows Commands [facility] Work Phone: 05-22-2015 Because of a physica l, mental, or emotional condition, do you have serious difficulty concentrating, remembering, or making decisions Yes 05/22/2015 8:44 AM EDT Chasity Corrales LPN Yes [facility] Clinical Notes 04-13-2021 to 09-05-2025 Jess Ellis PA - 07/27/2025 11:46 AM Tori Delgado MA - 05/16/2025 9:35 AM EDTTelelady So - Obey Agee LPN - 03/31/2025 12:12 PM EDTPatient InstructionsPatient Instructions Note Date & Type Note Facility 09-05-2025 Note HNO ID: [id number] Author: EARNEST DUEÑAS MD Service: ? Author Type: Physician Type: Progress Notes Filed: 09/06/2025 21:06 Note Text: Kami Watts is a 60 year old female here for a Medicare wellness visit. Medicare Health Risk Assessment General Health Fair Exercise: Minutes/Day 0 min Exercise: Days/Week 0 days Alcohol: Daily Use Never Alcohol: Drinks/Day Patient does not drink Alcohol: 6 or more drinks Never Feel off balance No Concerns: Teeth/Dentures Yes (wants to get new dentures) Concerns: Sexual function No Troubled by feelings Anxious; Isolated; Stressed; Irritable; Lonely Frequency: Eating healthy diet Several days ADLs requiring help None of the above Safety precautions in home/vehicle No (Rugs in home, no grab bars in bathroom, needs handrails at stairwells.) Smoke, vape, chews tobacco Yes, and I might quit Difficulty hearing Yes, I wear a hearing aid Difficulty seeing No Current Providers Specialists: I have reviewed specialist-related care of the patient in the medical record. Medical/Family history review Reviewed and updated problem list, medical/surgical/family/social history, medications, and allergies. Opioid use review Prescribed: No opioid use on file in the last 90 days Patient-reported: BUPRENORPHINE 8 MG-NALOXONE 2 MG SUBLINGUAL FILM Does patient have risk factors for opioid abuse? Yes Pain overview Current pain concerns and treatment plan reviewed. Patient under the care of a specialist. Depression screening Based on score and interview, patient is already diagnosed with depression. Recommendation: continuing current treatment plan Anxiety screening Patient with known anxiety. Cont current Tx. Cognitive screening Cognitive screening reviewed and patient not 65 years old Functional Observation Was the patient's Timed Up AND Go test unsteady or >= 12 seconds? No Advance Directives Patient did not wish or was not able to name a surrogate decision maker or provide an advance care plan Measurements BP 118/80 Pulse 76 Resp 20 Ht 160.7 cm (5' 3.25) Wt 81.8 kg (180 lb 6.4 oz) LMP 01/15/2017 (Within Days) BMI 31.70 kg/m? Vision Screening: Follows with optometry/ophthalmology Assessment/Plan Medicare annual wellness visit, subsequent (Z00.00) - Counseled on healthy diet and regular exercise - Fall avoidance information provided - Personalized prevention plan provided See below Chief Complaint Patient presents with: Medicare Wellness Exam HPI Kami Watts is a 60 year old female who presents here today for a Medicare wellness and a routine follow up. Patient with Hx of hypothyroidism, anxiety, depression, agoraphobia, GERD, migraines, Alcohol abuse, drug abuse, insomnia, smoker, OA as well as those reviewed and addressed below. Kami reports a resurgence of agoraphobia, along with decreased motivation and interest in activities. She has been off her medications, including buspirone and Lexapro, for an unspecified duration due to running out of refills and not attending follow-up appointments. She notes that these medications were not effective in managing her symptoms. She previously took Celexa for agoraphobia between 2002 and 2005, which was beneficial at that time. She expresses dissatisfaction with her current lifestyle, stating, I'm not happy with myself, I stay home all the time, I do nothing, I think about everything I want to do and don't do it. She also reports weight gain and poor dietary habits. Kami has been experiencing chest pain, dyspnea, and wheezing for several months. The chest pain is described as different from previous episodes, more intense, and not radiating to the jaw or arms. It occurs both at rest and during activity, although she notes limited physical activity. She also reports associated diaphoresis and nausea. She denies hemoptysis, but endorses palpitations and bilateral leg swelling. She has not had a lung cancer screening in the past few months and expresses interest in undergoing one. She denies recent fevers, sudden changes in hearing or vision, or issues with her nose or throat. Kami experiences migraines 3-4 times per week, for which she was previously on medication, though she cannot recall the name. She denies syncope, seizures, or tremors. She reports easy bruising and bleeding, as well as a change in heat tolerance, stating, I can handle it when it's hotter in my house now. That's not normal for me because I like it on the cooler side. She denies any recent increase in thirst, vomiting, diarrhea, or hematuria. She also denies dysuria or changes in urinary frequency. She has not noticed any new or unusual aches and pains, skin lesions, rashes, or sores. She denies intolerance to cold. Kami has been sober from drugs since 2010 and does not consume alcohol or use marijuana, despite its legalization. She is currently eugenio (more content not included)... [facility] 07-27-2025 Note HNO ID: [id number] Author: JESS ELLIS PA Service: ? Author Type: Physician Mandrel Puller Type: Progress Notes Filed: 07/27/2025 11:51 Note Text: URGENT CARE CHUY Watts is a 60 year old female. Patient presents with: Back Pain: Shooting down leg, R leg x 4 days HPI 60-year-old female presents for right leg pain. Patient states she has had pain in her right lower back shooting down her right leg for the past 4 days. No fevers. No loss of bowel or bladder function. She has a little bit of tingling occasionally in the right leg when sleeping at night. She has history of low back issues and sciatica in the past. She has never had surgery on the low back. No history of cancer. No fall or injury. No other complaint PAST MEDICAL HISTORY Diagnosis Date Abnormal glandular [...] ALLERGIES Patient has no known allergies. MEDICATIONS acamprosate DR (CAMPRAL) 333 mg tablet Take 666 mg by mouth three times a day. ergocalciferol 50,000 unit capsule (VITAMIN D2, DRISDOL) Take 1 capsule by mouth one time a week. Use as directed. escitalopram oxalate (LEXAPRO) 20 mg tablet Take 1 tablet by mouth once daily. busPIRone (BUSPAR) 5 mg tablet Take 1 tablet by mouth every 12 hours. albuterol HFA (PROAIR HFA) 90 mcg/actuation inhaler Inhale 2 Puffs as instructed every 4 hours as needed. buprenorphine-naloxone (SUBOXONE) 8-2 mg film Dissolve 2 Film under the tongue once daily. FAMILY HISTORY Problem Relation Age of Onset Diabetes Mother colon cancer Coronary Artery Disease Mother Hypertension Mother Hearing Loss Father DE/ colon cancer Stroke Father Diabetes Father Hypertension Father Aneurysm Father Coronary Artery Disease Maternal Grandmother Hypertension Maternal Grandmother Ischemic Heart Disease Maternal Grandfather Hypertension Paternal Grandmother Coronary Artery Disease Paternal Grandmother Coronary Artery Disease Paternal Grandfather Cancer Sister CERVICAL/colon cancer Cancer Paternal Aunt DOESN'T KNOW TYPE Heart Brother DE Hypertension Daughter Colon Cancer Brother SOCIAL HISTORY[1] Review of Systems Constitutional: Negative for chills and fever. Musculoskeletal: Positive for back pain. Neurological: Negative for numbness (+ tingling). Objective BP 125/85 Pulse 70 Temp 36.1 ?C (97 ?F) Resp 20 Wt 84 kg (185 lb 3 oz) LMP 01/15/2017 (Within Days) SpO2 96% BMI 33.23 kg/m? Physical Exam (more content not included)... [facility] 07-27-2025 History of Presen t illness Narrative [facility] CARE CHUY Watts is a 60 year old female. Patient presents with: Back Pain: Shooting down leg, R leg x 4 days HPI 60-year-old female presents for right leg pain. Patient states she has had pain in her right lower back shooting down her right leg for the past 4 days. No fevers. No loss of bowel or bladder function. She has a little bit of tingling occasionally in the right leg when sleeping at night. She has history of low back issues and sciatica in the past. She has never had surgery on the low back. No history of cancer. No fall or injury. No other complaint PAST MEDICAL HISTORY Diagnosis Date Abnormal glandular [...] ALLERGIES Patient has no known allergies. MEDICATIONS acamprosate DR (CAMPRAL) 333 mg tablet Take 666 mg by mouth three times a day. ergocalciferol 50,000 unit capsule (VITAMIN D2, DRISDOL) Take 1 capsule by mouth one time a week. Use as directed. escitalopram oxalate (LEXAPRO) 20 mg tablet Take 1 tablet by mouth once daily. busPIRone (BUSPAR) 5 mg tablet Take 1 tablet by mouth every 12 hours. albuterol HFA (PROAIR HFA) 90 mcg/actuation inhaler Inhale 2 Puffs as instructed every 4 hours as needed. buprenorphine-naloxone (SUBOXONE) 8-2 mg film Dissolve 2 Film under the tongue once daily. FAMILY HISTORY Problem Relation Age of Onset Diabetes Mother colon cancer Coronary Artery Disease Mother Hypertension Mother Hearing Loss Father DE/ colon cancer Stroke Father Diabetes Father Hypertension Father Aneurysm Father Coronary Artery Disease Maternal Grandmother Hypertension Maternal Grandmother Ischemic Heart Disease Maternal Grandfather Hypertension Paternal Grandmother Coronary Artery Disease Paternal Grandmother Coronary Artery Disease Paternal Grandfather Cancer Sister CERVICAL/colon cancer Cancer Paternal Aunt DOESN'T KNOW TYPE Heart Brother DE Hypertension Daughter Colon Cancer Brother SOCIAL HISTORY[1] Review of Systems Constitutional: Negative for chills and fever. Musculoskeletal: Positive for back pain. Neurological: Negative for numbness (+ tingling). Objective BP 125/85 Pulse 70 Temp 36.1 C (97 F) Resp 20 Wt 84 kg (185 lb 3 oz) LMP 01/15/2017 (Within Days) SpO2 96% BMI 33.23 kg/m Physical Exam Vitals reviewed. Constitutional: General: She is not in acute distress. Appearance: Normal appearance. She is not toxic-appearing. Musculoskeletal: Lumbar back: Tenderness present. No bony tenderness. Decreased range of motion. Positive right straight leg raise test. Negative left straight leg raise test. Skin: General: Skin is warm and dry. Neurological: Mental Status: She is alert. {ASSESSMENT/PLAN: 1. Sciatica, right side - ICD9: 724.3, ICD10: M54.31 Sciatica -No red flag symptoms. - Ice for localized tenderness - Prednisone taper- see orders - Muscle relaxant- see orders - Discussed drowsiness with muscle relaxer do not drive while taking this. - Follow-up with PCP for persistent symptoms to discuss possible physical therapy Diagnosis and treatment plan were discussed and questions were answered to the patient's satisfaction. Pt acknowledged understanding of concepts and follow up plan. Specific signs and symptoms that would indicate the need for higher level of care were discussed in detail warranting prompt ER evaluation. MARIO Mcgee History and Record Review External record(s) reviewed: prior outpatient record. Differential Diagnoses - Low back pain with sciatica is more likely for the following reason(s): suggested by H&P - Cauda equina is less likely for the following reason(s): H&P not suggestive - Fracture is less likely for the following reason(s): No injury, no midline tenderness, H&P not suggestive Additional Tests or Interventions The following testing was considered but ultimately not selected after discussion with patient/family: XR considered, but no red flag symptoms, no indication at this time Disposition The patient was discharged. Procedures [1] Social History Tobacco Use Smoking status: Every Day Current packs/day: 1.00 Average packs/day: 1 pack/day for 40.0 years (40.0 ttl pk-yrs) Types: Cigarettes Smokeless tobacco: Never Tobacco comments: half a pack a day Vaping Use Vaping status: Never Used Substance Use Topics Alcohol use: No Drug use: Not Currently Comment: sober since june 01 2014-meth documented in this encounter [facility] 07-24-2025 Note [facility] Medical Records Department [address] [place] [address] Discharge Summary 07/24/25 1345 MR#: [id number] Acct: [id number] Name: KAMI WATTS Rep #: [id number] : 1965 60 From: Pepe Card DO PCP: Dr. Earnest Dueñas MD Status:DIS IN [id number] Prov[facility] Date of Admission: 07/21/25 Date of Discharge: 07/24/25 Primary Care Physician: Dr. Earnest Dueñas MD Reason For Visit: CHRONIC ALCOHOL USE Diagnosis Discharge Diagnosis (1) Alcohol abuse: Status: Acute Code(s): F10.10 - Alcohol abuse, uncomplicated Plan 1. Alcohol withdrawal #2 alcohol use disorder #3 chronic anxiety Medications at Discharge Home Medications buprenorphine 8 mg-naloxone 2 mg sublingual film 1 ea sublingual BID 07/13/24 clonidine HCl 0.1 mg tablet 0.1 mg PO BID PRN anxiety #60 tabs 12/02/24 escitalopram oxalate 20 mg tablet (Lexapro) 20 mg PO DAILY 30 days #30 tabs 12/02/24 buspirone 10 mg tablet 10 mg PO BID 30 days #60 tabs 01/06/25 acamprosate 333 mg tablet,delayed release 666 mg PO TID 07/21/25 thiamine HCl (vitamin B1) 100 mg tablet 100 mg PO DAILY 07/21/25 Hospital Course Operations None Procedures None Summary of Care Provided Minutes Spent on Discharge: 30 Hospital Course: This 60-year-old white female was seen in the emergency room at [facility] requesting services for alcohol use disorder and detox. Patient's tox screen was positive for buprenorphine-patient takes this chronically for opiate use disorder. Remainder of the labs were essentially unremarkable except for alkaline phosphatase of 118. Patient was admitted to [address] in the alcohol addiction order set, during her hospitalization, she had no evidence of DTs and there were no serious symptoms of alcohol withdrawal. Patient met with addiction social sciences professor and the patient stated she had a plan for outpatient detox treatment follow-up. On 07/24/2025, patient was seen and examined: On examination she appeared in good health and spirits, she does not appear to be in any distress. Vital signs as documented. Skin warm and dry and without overt rashes. Neck without JVD, thyroid appears normal, trachea is midline, neck is supple. Lungs clear, normal air movement was noted. Heart exam notable for regular rhythm, normal sounds and absence of murmurs, rubs or gallops. Abdomen unremarkable and without evidence of organomegaly, masses, or abdominal aortic enlargement, bowel sounds are present in all 4 quadrants, no abdominal tenderness was noted. Extremities nonedematous, no cyanosis was noted, no clubbing was noted. Neuro: Cranial nerves II through XII are grossly intact, no focal motor deficits were noted, sensation to light touch and pinprick is intact, motor exam 5/5 throughout. Psych: Patient is alert and oriented x3, she does not appear anxious or depressed, she does not appear agitated. Patient was discharged in stable condition on 07/24/2025. Weight / BMI Weight Weight: 85.502 kg Body Mass Index (BMI) 32.3 ABG / Lab / Microbiology Data 07/21/25 14:40 07/21/25 14:40 D/C Instructions Weight Bearing Status: Full weight bearing DC O2, CPAP, BIPAP Needs Home O2 Discharge instructions: No Meaningful Use Info Meaningful Use Meaningful Use Diagnoses (Choose all that apply): None applicable Discharge Plan Admission Admit Date/Time: 07/21/25 16:01 Primary Reason for Your Visit: alcohol detox Attending Provider: Pepe Card Primary Care Provider: Earnest Dueñas Consulting Providers: Lokesh Phoenix; Narayan Magaña Instructions Additional Instructions / Restrictions: Follow-up with outpatient detox program Discharge Orders/Prescriptions Prescriptions: Continued clonidine HCl 0.1 mg tablet 0.1 mg PO BID PRN (Reason: anxiety) Qty: 60 1RF escitalopram oxalate [Lexapro] 20 mg tablet 20 mg PO DAILY 30 Days Qty: 30 2RF buprenorphine-naloxone 8-2 mg film 1 ea sublingual BID thiamine HCl (vitamin B1) 100 mg tablet 100 mg PO DAILY acamprosate 333 mg tablet,delayed release (DR/EC) 666 mg PO TID buspirone 10 mg tablet 10 mg PO BID 30 Days Qty: 60 2RF Rx Instructions: 1 po bid Referrals / Follow Up: Earnest Dueñas MD [Primary Care Provider] - Disposition Disposition (needs filled in before D/C Order can be placed): Home, Self Care Charges/Coding Visit Charges Inpatient E M: 07267 Disch Hosp 07/25/25 0731 Cosigner Signature (if applicable): CC: Dr. Earnest Dueñas MD; Dr. Pepe Card DO Signed [facility] 05-16-2025 Note HNO ID: [id number] Author: TORI GARCIA MA Service: ? Author Type: Non Destructive Evaluation Specialist Type: Progress Notes Filed: 05/16/2025 09:36 Note Text: [facility] Admission/Discharge summary. Scan on 05/15/2025 2:48 PM by ProviderRah PA-C: Discharge summary [facility] 05-16-2025 History of Presen t illness Narrative [facility] Admission/Discharge summary. Scan on 05/15/2025 2:48 PM by Rah Gabriel PA-C: Discharge summary documented in this encounter [facility] 05-15-2025 Note [facility] Medical Records Department [address] [place] [address] Discharge Summary 05/15/25 1142 MR#: [id number] Acct: [id number] Name: KAMI WATTS Rep #: [id number] : 1965 59 From: Pepe Card DO PCP: Dr. Earnest Dueñas MD Status:ADM IN Location: [id number] Providers Date of Admission: 05/11/25 Date of Discharge: 05/15/25 Primary Care Physician: Dr. Earnest Dueñas MD Reason For Visit: ALCOHOL DETOX Diagnosis Discharge Diagnosis (1) Alcohol use disorder: Status: Acute Code(s): F10.90 - Alcohol use, unspecified, uncomplicated Plan 1. Alcohol use disorder with withdrawal-patient will continue on her present medications and be reevaluated tomorrow #2 chronic depression-patient is on Lexapro #3 chronic anxiety-patient is on BuSpar #4 history of opiate use disorder-patient is currently on Subutex as an outpatient Total clinical time spent by myself addressing the patient's medical issues, reviewing all of her data, and collaborating with patient's care team: 35 minutes Medications at Discharge Home Medications buprenorphine 8 mg-naloxone 2 mg sublingual film 1 ea sublingual BID 07/13/24 clonidine HCl 0.1 mg tablet 0.1 mg PO BID PRN anxiety #60 tabs 12/02/24 escitalopram oxalate 20 mg tablet (Lexapro) 20 mg PO DAILY 30 days #30 tabs 12/02/24 buspirone 10 mg tablet 10 mg PO BID 30 days #60 tabs 01/06/25 Hospital Course Operations None Procedures None Summary of Care Provided Minutes Spent on Discharge: 31 Hospital Course: 59-year-old white female was seen in the emergency room at [facility] requesting services for alcohol use disorder. Workup in the emergency room included a CBC which was unremarkable, patient's chemistry profile was unremarkable, patient's ethyl alcohol level was 72, talk screen was positive for buprenorphine. Patient was admitted to [place] [address], orders were entered using the alcohol detox order set, patient had minimal symptoms during her hospitalization there was no evidence of DTs during her hospitalization. Patient was seen by addiction social sciences professor, she voiced the intent of following up online with outpatient alcohol detox services. On 05/15/2025, patient was seen and examined: On examination she appeared in good health and spirits, she does not appear to be in any distress. Vital signs as documented. Skin warm and dry and without overt rashes. Neck without JVD, thyroid appears normal, trachea is midline, neck is supple. Lungs clear, normal air movement was noted. Heart exam notable for regular rhythm, normal sounds and absence of murmurs, rubs or gallops. Abdomen unremarkable and without evidence of organomegaly, masses, or abdominal aortic enlargement, bowel sounds are present in all 4 quadrants, no abdominal tenderness was noted. Extremities nonedematous, no cyanosis was noted, no clubbing was noted. Neuro: Cranial nerves II through XII are grossly intact, no focal motor deficits were noted, sensation to light touch and pinprick is intact, motor exam 5/5 throughout. Psych: Patient is alert and oriented x3, she does not appear anxious or depressed, she does not appear agitated. Patient was discharged to home in stable condition on 05/15/2025. Weight / BMI Weight Weight: 83.2 kg Body Mass Index (BMI) 31.4 ABG / Lab / Microbiology Data 05/12/25 05:40 05/12/25 05:40 Microbiology: Microbiology 05/12/25 14:05 Urine, Clean Catch Urine Culture - Final Mixed Gram Positive Organisms D/C Instructions Discharge Diet: No restrictions Weight Bearing Status: Full weight bearing DC O2, CPAP, BIPAP Needs Home O2 [...] Simvastatin 80mg Discharge Plan Admission Admit Date/Time: 05/11/25 18:34 Primary Reason for Your Visit: Alcohol detox Attending Provider: Pepe Card Primary Care Provider: Earnest Dueñas Consulting Providers: Marck David; Kayli Slater Discharge Orders/Prescriptions Prescriptions: Continued clonidine HCl 0.1 mg tablet 0.1 mg PO BID PRN (Reason: anxiety) Qty: 60 1RF escitalopram oxalate [Lexapro] 20 mg tablet 20 mg PO DAILY 30 D (more content not included)... [facility] 03-31-2025 Telephone encounter Note Pt notified of same. Obey Agee LPN [facility] 03-31-2025 Miscellaneous Notes Pt notified of taylor. Obey Agee LPN ----- Message from Farzana Llamas PA-C sent at 03/31/2025 12:02 PM EDT ----- Normal mammogram. Repeat in 1 year. documented in this encounter [facility] 03-31-2025 Telephone encounter Note ----- Message from Farzana Llamas PA-C sent at 03/31/2025 12:02 PM EDT ----- Normal mammogram. Repeat in 1 year. [facility] 03-30-2025 History of Presen t illness Narrative [...] PATIENT PRESENTS WITH AN IMPLANTABLE OR ATTACHED ELECTROMECHANICAL ASSEMBLY TECHNICIAN: No RADIOLOGY DEPARTMENT: Mammography PERIPHERAL IV DATA: Not applicable SIGNED BY: Jayjay Almendarez March 30, 2025 11:45 AM documented in this encounter [facility] 03-30-2025 Note HNO ID: [id number] Author: MIRELA WESTON Mammo Tech Service: ? Author Type: Projector Operator Type: Progress Notes Filed: 03/30/2025 11:45 Note [...] PATIENT PRESENTS WITH AN IMPLANTABLE OR ATTACHED ELECTROMECHANICAL ASSEMBLY TECHNICIAN: No RADIOLOGY DEPARTMENT: Mammography PERIPHERAL IV DATA: Not applicable SIGNED BY: Mirela Weston ZMP March 30, 2025 11:45 AM [facility] 03-14-2025 Note HNO ID: [id number] Author: SHIRA MACDONALD MA Service: ? Author Type: Non Destructive Evaluation Specialist Type: Progress Notes Filed: 03/14/2025 16:29 Note Text: Scan on 03/08/2025 9:19 AM by Rah Gabriel PA-C: Discharge Summary Shira Macdonald MA [facility] 03-14-2025 History of Presen t illness Narrative Scan on 03/08/2025 9:19 AM by Rah Gabriel PA-C: Discharge Summary Shira Macdonald MA documented in this encounter [facility] 03-08-2025 Note [facility] Medical Records Department [address] [place] [address] Discharge Summary 03/08/25 0755 MR#: [id number] Acct: [id number] Name: KAMI WATTS Rep #: [id number] : 1965 59 From: Jeffry Rebolledo MD PCP: Dr. Earnest Dueñas MD Status:ADM IN Location: [id number] Providers Date of Admission: 03/05/25 Date of [...] 10/80 mg Simv (more content not included)... [facility] 03-07-2025 Note HNO ID: [id number] Author: SHIRA MACDONALD MA Service: ? Author Type: Non Destructive Evaluation Specialist Type: Progress Notes Filed: 03/07/2025 15:03 Note Text: Scan on 03/05/2025 11:19 PM by ProviderRah PA-C: Consultation - Emergency Medicine Scan on 03/06/2025 6:48 AM by Rah Gabriel PA-C: Consultation - Emergency Medicine Detox alchol. Shira Macdonald MA [facility] 03-07-2025 History of Presen t illness Narrative Scan on 03/05/2025 11:19 PM by ProviderRah PA-C: Consultation - Emergency Medicine Scan on 03/06/2025 6:48 AM by Rah Gabriel PA-C: Consultation - Emergency Medicine Detox alchol. Shira Macdonald MA documented in this encounter [facility] 03-02-2025 Telephone encounter Note Pt notified and verbalized understanding Mavis Nicholas MA [facility] 03-02-2025 Miscellaneous Notes Pt notified and verbalized understanding Mavis Nicholas MA Please let patient know her vitamin d is still low. I have sent in a prescription for supplementation. Repeat vitamin d level in 3 months. documented in this encounter [facility] 03-02-2025 Telephone encounter Note Please let patient know her vitamin d is still low. I have sent in a prescription for supplementation. Repeat vitamin d level in 3 months. [facility] 02-28-2025 Note HNO ID: [id number] Author: JOAN TALLEY APRN.PRODUCT FINISHER Service: ? Author Type: Nurse Practitioner Type: [...] Disease Mother Hypertension Mother Hearing Loss Father DE/ colon cancer Stroke Father Diabetes Father Hypertension Father Aneurysm Father Coronary Artery Disease Maternal Grandmother Hypertension Maternal Grandmother Ischemic Heart Disease Maternal Grandfather Hypertension Paternal Grandmother Coronary Artery Disease Paternal Grandmother Coronary Artery Disease Paternal Grandfather Cancer Sister CERVICAL/colon cancer Cancer Paternal Aunt DOESN'T KNOW TYPE Heart Brother DE Hypertension Daughter Colon Cancer Brother Patient Allergies [...] Days) BMI 34. (more content not included)... [facility] 02-28-2025 History of Presen t illness Narrative [...] Disease Mother Hypertension Mother Hearing Loss Father DE/ colon cancer Stroke Father Diabetes Father Hypertension Father Aneurysm Father Coronary Artery Disease Maternal Grandmother Hypertension Maternal Grandmother Ischemic Heart Disease Maternal Grandfather Hypertension Paternal Grandmother Coronary Artery Disease Paternal Grandmother Coronary Artery Disease Paternal Grandfather Cancer Sister CERVICAL/colon cancer Cancer Paternal Aunt DOESN'T KNOW TYPE Heart Brother DE Hypertension Daughter Colon Cancer Brother Patient Allergies [...] 05/11/2024 Influenza Vaccine(1) due on 07/24/2024 Covid-19 Vaccine(2023- season) due on 07/24/2024 Mammogram Screening due [...] [facility]SULT [facility]CREENING [facility] Joan Talley APRN.PRODUCT FINISHER documented in this encounter [facility] 02-22-2025 Telephone encounter Note Patient has Wellness appt with Joan Talley CNP on 02/28/25. Pt states she had external labs completed recently, ordered by an online therapy company called [employer]. that works with suboxone therapy. Pt states she will have this company fax lab results to Joan's office for review at her 02/28 appt. Please call patient for any questions or concerns, . Fior Wheatley RN [facility] 02-22-2025 Miscellaneous Notes Patient has Wellness appt with Joan Talley CNP on 02/28/25. Pt states she had external labs completed recently, ordered by an online therapy company called [employer]. that works with suboxone therapy. Pt states she will have this company fax lab results to Joan's office for review at her 02/28 appt. Please call patient for any questions or concerns, . Fior Wheatley RN documented in this encounter [facility] 02-08-2025 Telephone encounter Note Patient notified of results and provider's instructions. Patient verbalizes understanding. Obey Agee LPN [facility] 02-08-2025 Miscellaneous Notes Patient notified of results and provider's instructions. Patient verbalizes understanding. Obey Agee LPN ----- Message from Farzana Llamas PA-C sent at 02/08/2025 7:47 AM EDT ----- Your Cologuard test came back negative (low risk of colorectal cancer). I recommend repeating colorectal cancer screening in 3 years. documented in this encounter [facility] 02-08-2025 Telephone encounter Note ----- Message from Farazna Llamas PA-C sent at 02/08/2025 7:47 AM EDT ----- Your Cologuard test came back negative (low risk of colorectal cancer). I recommend repeating colorectal cancer screening in 3 years. [facility] 11-12-2024 Note [facility] Medical Records Department [address] [place] [address] Discharge Summary 11/12/24 1000 MR#: [id number] Acct: [id number] Name: KAMI WATTS Rep #: [id number] : 1965 59 From: Krystyna Trujillo DO PCP: Dr. Earnest Dueñas MD Status:ADM IN Location: [place] [address] Providers Date of Admission: 11/10/24 Date of [...] who presented to the emergency department at [facility] on 11/10/2020 for requesting detox [...] all that a (more content not included)... [facility] 11-11-2024 Note HNO ID: [id number] Author: OBEY AGEE LPN Service: ? Author Type: LICENSED NURSE Type: Progress Notes Filed: 11/11/2024 06:50 Note Text: Scan on 11/10/2024 10:24 PM by Rah Gabriel PA-C: Consultation - Emergency Medicine Scan on 11/10/2024 5:55 PM by Rah Gabriel PA-C [facility] 11-11-2024 History of Presen t illness Narrative Scan on 11/10/2024 10:24 PM by Rah Gabriel PA-C: Consultation - Emergency Medicine Scan on 11/10/2024 5:55 PM by Rah Gabriel PA-C documented in this encounter [facility] 11-01-2024 Note HNO ID: [id number] Author: JESS ELLIS PA Service: ? Author Type: Physician Mandrel Puller Type: Progress Notes Filed: 11/01/2024 13:57 Note Text: This note was created using Myfacepage. Wu Watts is a 59 year old [...] recently sick. Patient has not taken anything [id number] for symptoms. PAST MEDICAL HISTORY Diagnosis Date [...] Disease Mother Hypertension Mother Hearing Loss Father DE/ colon cancer Stroke Father Diabetes Father Hypertension Father Aneurysm Father Coronary Artery Disease Maternal Grandmother Hypertension Maternal Grandmother Ischemic Heart Disease Maternal Grandfather Hypertension Paternal Grandmother Coronary Artery Disease Paternal Grandmother Coronary Artery Disease Paternal Grandfather Cancer Sister CERVICAL/colon cancer Cancer Paternal Aunt DOESN'T KNOW TYPE Heart Brother DE Hypertension Daughter Colon Cancer Brother Social History Tobacco Use Smoking status: Every Day Current packs/day: 1.00 Average packs/day: 1 pack/day for 40.0 years (40.0 ttl pk-yrs) Ty (more content not included)... [facility] 11-01-2024 History of Presen t illness Narrative This note was created using Myfacepage. Wu Watts is a 59 year old [...] recently sick. Patient has not taken anything [id number] for symptoms. PAST MEDICAL HISTORY Diagnosis Date [...] Disease Mother Hypertension Mother Hearing Loss Father DE/ colon cancer Stroke Father Diabetes Father Hypertension Father Aneurysm Father Coronary Artery Disease Maternal Grandmother Hypertension Maternal Grandmother Ischemic Heart Disease Maternal Grandfather Hypertension Paternal Grandmother Coronary Artery Disease Paternal Grandmother Coronary Artery Disease Paternal Grandfather Cancer Sister CERVICAL/colon cancer Cancer Paternal Aunt DOESN'T KNOW TYPE Heart Brother DE Hypertension Daughter Colon Cancer Brother Social History [...] evaluation. MARIO Mcgee documented in this encounter [facility] 10-06-2024 Telephone encounter Note Left message for pt to call back to schedule f/u appointment with Farzana. Farzana had advised pt to f/u for depression/med in 4 weeks at last ov 03/16/24. Obey Agee LPN [facility] 10-06-2024 Miscellaneous Notes Left message for pt to call back to schedule f/u appointment with Farzana. Farzana had advised pt to f/u for depression/med in 4 weeks at last ov 03/16/24. Obey Agee LPN documented in this encounter [facility] 08-18-2024 History of Presen t illness Narrative Scan on 08/17/2024 5:12 PM by ProviderRah PA-C: Vit D Scan on 08/17/2024 2:13 PM by ProviderRah PA-C: TSH documented in this encounter [facility] 08-08-2024 History of Presen t illness Narrative Scan on 08/05/2024 6:03 PM by ProviderRah PA-C: Consultation - Emergency Medicine documented in this encounter [facility] 08-06-2024 Telephone encounter Note Patient given results and verbalized understanding of instructions given. Patient went to ED she has a kidney stone. Dalia Medina MA [facility] 08-06-2024 Miscellaneous Notes Patient given results and verbalized understanding of instructions given. Patient went to ED she has a kidney stone. Dalia Medina MA Please inform patient that urine culture did not show any growth of bacteria requiring treatment. If symptoms improving complete antibiotic Advise due to blood in the urine that she follow up with PCP for recheck of urine in 1-2 weeks. Vivi Ashraf APRN.PRODUCT FINISHER documented in this encounter [facility] 08-05-2024 Telephone encounter Note Please inform patient that urine culture did not show any growth of bacteria requiring treatment. If symptoms improving complete antibiotic Advise due to blood in the urine that she follow up with PCP for recheck of urine in 1-2 weeks. Vivi Ashraf APRN.CNP [facility] Work Phone: 08-04-2024 History of Presen t illness Narrative [...] Disease Mother Hypertension Mother Hearing Loss Father DE/ colon cancer Stroke Father Diabetes Father Hypertension Father Aneurysm Father Coronary Artery Disease Maternal Grandmother Hypertension Maternal Grandmother Ischemic Heart Disease Maternal Grandfather Hypertension Paternal Grandmother Coronary Artery Disease Paternal Grandmother Coronary Artery Disease Paternal Grandfather Cancer Sister CERVICAL/colon cancer Cancer Paternal Aunt DOESN'T KNOW TYPE Heart Brother DE Hypertension Daughter Colon Cancer Brother Social History [...] symptoms occur. Patient agreeable to treatment plan. Vonnie Macdonald APRN.CNP documented in this encounter [facility] 07-19-2024 History of Presen t illness Narrative Scan on 07/16/2024 10:01 AM by Provider, External, MADDISONC: Discharge Summary Patient admitted to [facility] for EOTH detox. Patient was started on burpenorphine-Naloxone. Patient to follow up in 1 week with PCP and to follow up with 180. Do you need to see the patient? Patient just had her wellness exam 02/2024. Shira Macdonald MA documented in this encounter [facility] 07-14-2024 History of Presen t illness Narrative Scan on 07/13/2024 6:18 PM by ProviderRah PA-C: Consultation - Emergency Medicine Scan on 07/13/2024 6:58 PM by ProviderRah PA-C documented in this encounter [facility] 04-20-2024 Telephone encounter Note Additional attempt to reach patient by phone with no answer. Left VM to return call. 3 attempts to reach patient by phone to reschedule missed appointment with no success. No show letter was also sent to patients home address 04/13 requesting a return call for reschedule. SAMIRA Tony [facility] 04-20-2024 Miscellaneous Notes Additional attempt to reach [...] Farzana Llamas PA-C documented in this encounter [facility] 04-19-2024 Telephone encounter Note Left message to call office. 04/19/2024 10:25 AM. Bridgette Pascal LPN [facility] 04-15-2024 Telephone encounter Note Left message to call office. 04/15/2024 10:51 AM. Bridgette Pascal LPN [facility] 04-15-2024 Telephone encounter Note Patient missed her last appointment. Please attempt to reach out to her to reschedule. Farzana Llamas PA-C [facility] 03-31-2024 Telephone encounter Note Spoke with pt and information listed below given. Pt verbalizes understanding. Dania Narayanan LPN [facility] 03-31-2024 Miscellaneous Notes Spoke with pt and information listed below given. Pt verbalizes understanding. Dania Narayanan LPN Called and left a voicemail for the Patient to call back and ask for a nurse to receive the providers message. Marcia Babulski, RN Let patient know mammogram was ok. documented in this encounter [facility] 03-29-2024 Telephone encounter Note Called and left a voicemail for the Patient to call back and ask for a nurse to receive the providers message. Marcia Souza RN [facility] 03-29-2024 Telephone encounter Note Let patient know mammogram was ok. [facility] 03-29-2024 Note Formatting of this n ote might be different from the original. March 29, 2024 PID: [id number] Kami Hansenenship [address] [place] [address] Dear MsMansoor Watts, We are pleased to inform you [...] report will be kept on file at [facility] as part of your permanent medical record and are available for your continuing care. Thank you for allowing us to help in meeting your health care needs. Sincerely, Dr. Cee Interpreting Radiologist [facility] (Normal over 40) [facility] 03-29-2024 Miscellaneous Notes March 29, 2024 PID: [id number] Kami Watts [address] [place] [address] Dear MsMansoor Watts, We are pleased to inform you [...] report will be kept on file at [facility] as part of your permanent medical record and are available for your continuing care. Thank you for allowing us to help in meeting your health care needs. Sincerely, Dr. Cee Interpreting Radiologist [facility] (Normal over 40) documented in this encounter [facility] 03-28-2024 History of Presen t illness Narrative [...] PATIENT PRESENTS WITH AN IMPLANTABLE OR ATTACHED ELECTROMECHANICAL ASSEMBLY TECHNICIAN: No RADIOLOGY DEPARTMENT: Mammography PERIPHERAL IV DATA: Not applicable SIGNED BY: Jayjay Almendarez March 28, 2024 12:57 PM documented in this encounter [facility] 03-23-2024 Telephone encounter Note 1st attempt to contact pt to schedule, left radha Pacheco March 23, 2024 1:26 PM [facility] 03-23-2024 Miscellaneous Notes 1st attempt to contact pt to schedule, left radha Pacheco March 23, 2024 1:26 PM Please assist in scheduling PT. Thank you. SAMIRA Tony order placed Patient notified and voiced understanding. She is open to PT. Please place order. Shira Macdonald MA Xray shows moderate arthritis in left hip. Is patient open to trying some Physical Therapy? Farzana Llamas PA-C documented in this encounter [facility] 03-23-2024 Telephone encounter Note Please assist in scheduling PT. Thank you. SAMIRA Tony [facility] 03-23-2024 Telephone encounter Note order placed [facility] 03-23-2024 Telephone encounter Note Patient notified and voiced understanding. She is open to PT. Please place order. Shira Macdonald MA [facility] 03-23-2024 Telephone encounter Note Xray shows moderate arthritis in left hip. Is patient open to trying some Physical Therapy? Farzana Llamas PA-C [facility] 04-29-2024 History of Presen t illness Narrative This note was created using [employer]. Wu Watts is a 58 year old [...] history is provided by the patient. No environmental studies faculty member was used. Rash This is a new [...] Disease Mother Hypertension Mother Hearing Loss Father DE/ colon cancer Stroke Father Diabetes Father Hypertension Father Aneurysm Father Coronary Artery Disease Maternal Grandmother Hypertension Maternal Grandmother Ischemic Heart Disease Maternal Grandfather Hypertension Paternal Grandmother Coronary Artery Disease Paternal Grandmother Coronary Artery Disease Paternal Grandfather Cancer Sister CERVICAL/colon cancer Cancer Paternal Aunt DOESN'T KNOW TYPE Heart Brother DE Hypertension Daughter Colon Cancer Brother Social History [...] Comments: Right upper deltoid region with irregular [place] like erythema With area of inoculation. +tenderness [...] for recheck in two days Mima Royal APRN.PRODUCT FINISHER documented in this encounter [facility] 03-17-2024 Telephone encounter Note Pt notified of lab results & instructions, pt voiced understanding. Bridgette Pascal LPN [facility] 03-17-2024 Miscellaneous Notes Pt notified of lab results & instructions, pt voiced understanding. Bridgette Pascal LPN Vit d level is very low. I will send in supplement for her to start. Recheck levels in 2 months. The rest of her labs are all normal. documented in this encounter [facility] 03-17-2024 Telephone encounter Note Vit d level is very low. I will send in supplement for her to start. Recheck levels in 2 months. The rest of her labs are all normal. [facility] 03-16-2024 History of Presen t illness Narrative [...] PATIENT PRESENTS WITH AN IMPLANTABLE OR ATTACHED ELECTROMECHANICAL ASSEMBLY TECHNICIAN: No RADIOLOGY DEPARTMENT: General X-ray: Exam(s) Completed: Pelvis X-Ray: Pelvis with Hip Left PERIPHERAL IV DATA: Not applicable SIGNED BY: RT Med(R) March 16, 2024 1:43 PM documented in this encounter [facility] 03-16-2024 Instructions Farzana Llamas PA-C - 03/16/2024 12:44 PM EDT Check with insurance on coverage for bone density given decreased height. Labs today Xray left hip today Schedule mammogram Set up with [facility] for CT lung- lung cancer screening. Cologuard will come in mail. Start lexapro 10mg. Follow up in 1 month. documented in this encounter [facility] 03-16-2024 History of Presen t illness Narrative [...] Disease Mother Hypertension Mother Hearing Loss Father DE/ colon cancer Stroke Father Diabetes Father Hypertension Father Aneurysm Father Coronary Artery Disease Maternal Grandmother Hypertension Maternal Grandmother Ischemic Heart Disease Maternal Grandfather Hypertension Paternal Grandmother Coronary Artery Disease Paternal Grandmother Coronary Artery Disease Paternal Grandfather Cancer Sister CERVICAL/colon cancer Cancer Paternal Aunt DOESN'T KNOW TYPE Heart Brother DE Hypertension Daughter Colon Cancer Brother Patient Allergies [...] Screening due on 07/09/2022 Covid-19 Vaccine( - season) due on 07/24/2023 Annual PCP Team [...] Farzana Llamas PA-C documented in this encounter [facility] 02-29-2024 Miscellaneous Notes Patient notified.Dottie Oconnell LPN Negative for COVID flu RSV documented in this encounter [facility] 02-29-2024 Miscellaneous Notes Patient returned call, notified of results as listed below, verbalized understanding of instructions given. Belle Fonseca MA CXR negative Attempted to reach out and notify patient. Left VM to return call. If no return call, please try calling again on 03/01/24 documented in this encounter [facility] 02-29-2024 History of Presen t illness Narrative [...] PATIENT PRESENTS WITH AN IMPLANTABLE OR ATTACHED ELECTROMECHANICAL ASSEMBLY TECHNICIAN: No RADIOLOGY DEPARTMENT: General X-ray: Exam(s) Completed: Chest X-Ray PERIPHERAL IV DATA: Not applicable SIGNED BY: RT Akash(R) February 29, 2024 10:27 AM documented in this encounter [facility] 02-29-2024 History of Presen t illness Narrative This note was created using [employer] [facility] [employer]. Wu Watts is a 58 year old [...] history is provided by the patient. No environmental studies faculty member was used. URI She complains of cough, [...] Disease Mother Hypertension Mother Hearing Loss Father DE/ colon cancer Stroke Father Diabetes Father Hypertension Father Aneurysm Father Coronary Artery Disease Maternal Grandmother Hypertension Maternal Grandmother Ischemic Heart Disease Maternal Grandfather Hypertension Paternal Grandmother Coronary Artery Disease Paternal Grandmother Coronary Artery Disease Paternal Grandfather Cancer Sister CERVICAL/colon cancer Cancer Paternal Aunt DOESN'T KNOW TYPE Heart Brother DE Hypertension Daughter Colon Cancer Brother Social History [...] concerns or if symptoms persist. Mima Royal APRN.PRODUCT FINISHER documented in this encounter [facility] 07-31-2023 History of Presen t illness Narrative View External Procedures - GEETA [ID [id number]] documented in this encounter [facility] 07-28-2023 History of Presen t illness Narrative Scan on 07/28/2023 1:35 PM by Provider, MATT Monreal: Chemistry Scan on 07/28/2023 1:05 PM by Provider, External, MATT: Hematology documented in this encounter [facility] 04-05-2023 Miscellaneous Notes Patient notified. Verbalized understanding. ----- Message from Beverly Kovacs APRN.PRODUCT FINISHER sent at 04/05/2023 8:05 AM EDT ----- Please advise patient the COVID and flu test was negative. documented in this encounter [facility] 04-04-2023 Instructions Beverly Kovacs APRN.PRODUCT FINISHER - 04/04/2023 10:17 AM EDT ASSESSMENT/PLAN: 1. [...] expected course of illness Beverly Kovacs APRN.ARIK GASTROENTERITIS Your exam shows you have gastroenteritis, [...] the health department. documented in this encounter [facility] 04-04-2023 History of Presen t illness Narrative [...] Disease Mother Hypertension Mother Hearing Loss Father DE/ colon cancer Stroke Father Diabetes Father Hypertension Father Aneurysm Father Coronary Artery Disease Maternal Grandmother Hypertension Maternal Grandmother Ischemic Heart Disease Maternal Grandfather Hypertension Paternal Grandmother Coronary Artery Disease Paternal Grandmother Coronary Artery Disease Paternal Grandfather Cancer Sister CERVICAL/colon cancer Cancer Paternal Aunt DOESN'T KNOW TYPE Heart Brother DE Hypertension Daughter Colon Cancer Brother Social History Tobacco Use Smoking status: Every Day Packs/day: 0.50 Years: 40.00 Pack years: 20.00 Types: Cigarettes Smokeless tobacco: Never Tobacco comments: half a pack a day Vaping Use Vaping Use: Never used Substance Use Topics Alcohol use: No Drug use: No 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 Dalia Medina Please notify that covid/flu testing negative. Continue with plan of care as discussed during visit. documented in this encounter [facility] 03-23-2023 Instructions MARIO Mcgee - 03/23/2023 7:36 [...] thin out mucus documented in this encounter [facility] 03-23-2023 History of Presen t illness Narrative This note was created using [employer]. Wu Watts is a 57 year old [...] Disease Mother Hypertension Mother Hearing Loss Father DE/ colon cancer Stroke Father Diabetes Father Hypertension Father Aneurysm Father Coronary Artery Disease Maternal Grandmother Hypertension Maternal Grandmother Ischemic Heart Disease Maternal Grandfather Hypertension Paternal Grandmother Coronary Artery Disease Paternal Grandmother Coronary Artery Disease Paternal Grandfather Cancer Sister CERVICAL/colon cancer Cancer Paternal Aunt DOESN'T KNOW TYPE Heart Brother DE Hypertension Daughter Colon Cancer Brother Social History [...] evaluation. MARIO Mcgee documented in this encounter [facility] 01-09-2023 History of Presen t illness Narrative Scan on 01/09/2023 9:53 AM by External Provider: Consultation - Please review. Shira Macdonald MA documented in this encounter [facility] 12-16-2022 Miscellaneous Notes Pt called and is notified of providers results. Pt voices understanding. Marcia Souza RN Let patient know that her labs all look okay. A1c is 5.7% which is border of normal and prediabetes. Farzana Llamas PA-C documented in this encounter [facility] 12-15-2022 History of Presen t illness Narrative [...] Disease Mother Hypertension Mother Hearing Loss Father DE/ colon cancer Stroke Father Diabetes Father Hypertension Father Aneurysm Father Coronary Artery Disease Maternal Grandmother Hypertension Maternal Grandmother Ischemic Heart Disease Maternal Grandfather Hypertension Paternal Grandmother Coronary Artery Disease Paternal Grandmother Coronary Artery Disease Paternal Grandfather Cancer Sister CERVICAL/colon cancer Cancer Paternal Aunt DOESN'T KNOW TYPE Heart Brother DE Hypertension Daughter Colon Cancer Brother Patient Allergies [...] Farzana Llamas PA-C documented in this encounter [facility] 10-01-2022 Instructions Lou Yu APRN.CNP - 10/01/2022 2:[address] Cydney Molina uro-gynecology at [facility]. documented in this encounter [facility] 10-01-2022 History of Presen t illness Narrative Labour Market Economist offered: Patient declines. Kami Watts is a [...] Live Births0 Comment: One set of twins [employer] History LMP: 01/15/2017 (Within Days), Postmenopausal Age at Menarche: Age at First : Age at Menopause: [employer] History Comments: Sexual Activity: Not Currently; Male; [...] Disease Mother Hypertension Mother Hearing Loss Father DE/ colon cancer Stroke Father Diabetes Father Hypertension Father Aneurysm Father Coronary Artery Disease Maternal Grandmother Hypertension Maternal Grandmother Ischemic Heart Disease Maternal Grandfather Hypertension Paternal Grandmother Coronary Artery Disease Paternal Grandmother Coronary Artery Disease Paternal Grandfather Cancer Sister CERVICAL/colon cancer Cancer Paternal Aunt DOESN'T KNOW TYPE Heart Brother DE Hypertension Daughter Colon Cancer Brother Social History [...] external genitalia normal, normal Bartholin's glands, urethra, [place]'s glands, no vulvar lesions, no cervical lesions, [...] surgical management. Prefers to see a local uro-braille typist. Consult placed and pt given information for Dr Molina. Lou Yu APRN.ARIK I spent a total of 25 minutes on the date of the service which included preparing to see the patient, [id number] patient care, completing clinical documentation, obtaining and/or reviewing separately obtained history, performing a medically appropriate examination, counseling and educating the patient/family/caregiver, and ordering medications, tests, or procedures. documented in this encounter [facility] 07-25-2022 History of Presen t illness Narrative Chief Complaint Patient presents with: Depression: Discuss medications for depression HPI Kami Watts is a 57 year old female who presents here today for Above Complaints.. Patient has been having continued issues with depression/anxiety. She was scheduled to start with the [facility] IOP back in march but [...] Disease Mother Hypertension Mother Hearing Loss Father DE/ colon cancer Stroke Father Diabetes Father Hypertension Father Aneurysm Father Coronary Artery Disease Maternal Grandmother Hypertension Maternal Grandmother Ischemic Heart Disease Maternal Grandfather Hypertension Paternal Grandmother Coronary Artery Disease Paternal Grandmother Coronary Artery Disease Paternal Grandfather Cancer Sister CERVICAL/colon cancer Cancer Paternal Aunt DOESN'T KNOW TYPE Heart Brother DE Hypertension Daughter Colon Cancer Brother Patient Allergies [...] Farzana Llamas PA-C documented in this encounter [facility] 06-25-2022 Instructions Farzana Llamas PA-C - 06/25/2022 7:44 AM EDT Will get an opinion from surgeon to see if they feel a possible hernia in that area. Could consider further testing if worsening or not resolving. documented in this encounter [facility] 06-25-2022 History of Presen t illness Narrative Chief Complaint Patient presents with: Numbness: right lower abdomen JOSE Watts is a 56 year old female [...] Disease Mother Hypertension Mother Hearing Loss Father DE/ colon cancer Stroke Father Diabetes Father Hypertension Father Aneurysm Father Coronary Artery Disease Maternal Grandmother Hypertension Maternal Grandmother Ischemic Heart Disease Maternal Grandfather Hypertension Paternal Grandmother Coronary Artery Disease Paternal Grandmother Coronary Artery Disease Paternal Grandfather Cancer Sister CERVICAL/colon cancer Cancer Paternal Aunt DOESN'T KNOW TYPE Heart Brother DE Hypertension Daughter Colon Cancer Brother Patient Allergies [...] Farzana Llamas PA-C documented in this encounter [facility] 06-22-2022 History of Presen t illness Narrative Patient presents with [facility] triage with right lower abdominal numbness for months. She has not seen pcp regarding this per patient. This has not changed recently. She was in ER a few days ago for right arm pain. No abdominal pain today. No fever. No urinary symptoms. Discussed I would recommend pcp for this. Patient scheduled. documented in this encounter [facility] 04-16-2022 History of Presen t illness Narrative Chief Complaint Patient presents with: Depression HPI Kami Watts is a 56 year old female who presents here today for Above Complaints.. Patient has been having increasing anxiety over the past couple months. Getting to the point that she can't get things done and effecting interactions with other. She is set to start [facility] IOP tomorrow. Has been having chest pain on going. Not sure if related to anxiety symptoms. She has HERNANEDZ chronically. Reports a hx of PVCs but [...] Disease Mother Hypertension Mother Hearing Loss Father DE/ colon cancer Stroke Father Diabetes Father Hypertension Father Aneurysm Father Coronary Artery Disease Maternal Grandmother Hypertension Maternal Grandmother Ischemic Heart Disease Maternal Grandfather Hypertension Paternal Grandmother Coronary Artery Disease Paternal Grandmother Coronary Artery Disease Paternal Grandfather Cancer Sister CERVICAL/colon cancer Cancer Paternal Aunt DOESN'T KNOW TYPE Heart Brother DE Hypertension Daughter Colon Cancer Brother Patient Allergies [...] enter into the intensive outpatient program through [facility] Will let them start medication management. - EXERCISE STRESS ECG (WITHOUT IMAGING) Farzana Llamas PA-C documented in this encounter [facility] 03-06-2022 History of Presen t illness Narrative [...] Disease Mother Hypertension Mother Hearing Loss Father DE/ colon cancer Stroke Father Diabetes Father Hypertension Father Aneurysm Father Coronary Artery Disease Maternal Grandmother Hypertension Maternal Grandmother Ischemic Heart Disease Maternal Grandfather Hypertension Paternal Grandmother Coronary Artery Disease Paternal Grandmother Coronary Artery Disease Paternal Grandfather Cancer Sister CERVICAL/colon cancer Cancer Paternal Aunt DOESN'T KNOW TYPE Heart Brother DE Hypertension Daughter Colon Cancer Brother Social History [...] further evaluation care. Patient will proceed to [facility] for further evaluation and care. Earnest Ramirez APRN.CNP documented in this encounter [facility] 04-13-2021 History of Presen t illness Narrative [...] 2021 10:18 AM documented in this encounter [facility] Evaluation + Plan note No data available for this section [facility] Evaluation note Diagnosis Onset Date Abdominal pain acute [facility] Work Phone: Evaluation note* Diagnosis Right flank pain- Primary Abdominal pain, unspecified site [facility] Diagnosis Chest pain, unspecified type- Primary HERNANDEZ (dyspnea on exertion) Other dyspnea and respiratory abnormality Palpitations Current moderate episode of major depressive disorder, unspecified whether recurrent (HCC) [facility] noteNo assessment information availableWAkron [facility] Work Phone: Evaluation note* Diagnosis APPOINTMENT CANCELLED- Primary [facility]* Diagnosis Right lower quadrant abdominal pain- Primary Abdominal pain, right lower quadrant [facility]* Diagnosis Moderate episode of recurrent major depressive disorder (HCC)- Primary [facility]* Diagnosis Encounter for screening mammogram for breast cancer documented [facility]* Diagnosis Cystocele, midline- Primary Rectocele [facility]* Diagnosis EDER (generalized anxiety disorder)- Primary Generalized anxiety disorder Moderate episode of recurrent major depressive disorder (HCC) Weight loss Loss of weight Screening for diabetes mellitus Encounter for lipid screening for cardiovascular disease Screening for lipoid disorders [facility]* Diagnosis URI, acute- Primary Acute upper respiratory infections of unspecified site Sore throat Acute pharyngitis [facility]* Diagnosis Sore throat- Primary Acute pharyngitis Flu-like symptoms Other general symptoms Nausea and vomiting, unspecified vomiting type documented [facility]* Diagnosis Encounter for screening mammogram for breast cancer [facility]* Diagnosis URI, acute- Primary Acute upper respiratory infections of unspecified site Acute cough Conjunctivitis of both eyes, unspecified conjunctivitis type documented [facility]* Diagnosis Encounter for screening for malignant [...] region and thigh [facility]* Diagnosis Vitamin D deficiency- Primary Unspecified vitamin D deficiency [facility]* Diagnosis Cellulitis of right upper arm- Primary Cellulitis and abscess of upper arm and forearm [facility]* Diagnosis Encounter for screening for malignant neoplasm of breast, unspecified screening modality documented [facility]* Diagnosis Left hip pain- Primary Pain in joint, pelvic region and thigh documented in this encounter [facility] note* Diagnosis Left hip pain Pain in joint, pelvic region and thigh documented in this encounter [facility] note* Diagnosis URI, acute Acute upper respiratory infections of unspecified site Acute cough documented in this encounter [facility] note* Diagnosis Dysuria- Primary Recurrent UTI (urinary tract infection) Urinary tract infection, site not specified documented in this encounter [facility] note* Diagnosis Neck pain Cervicalgia Hip pain, bilateral Pain in joint, pelvic region and thigh [facility]* Diagnosis Sinobronchitis- Primary Unspecified sinusitis (chronic) [facility] Diagnosis Well adult exam- Primary Routine [...] for lung cancer documented [facility]* Diagnosis Vitamin D deficiency- Primary Unspecified vitamin D deficiency documented in this encounter [facility] note* Diagnosis Encounter for screening mammogram for breast cancer [facility]* Diagnosis Sciatica, right side- Primary [facility] Discharge instructions No data available for this section [facility] Progress note No data available for this section [facility] Reason for referral (narrative)* Diagnostic Procedure Only (Routine) - Pending Review Specialty Diagnoses / Procedures Referred By Contac t Referred To Contact [facility] Diagnoses Encounter for screening mammogram for breast cancer Procedures DAYNA SCREENING SCREENING MAMMOGRAPHY BI 2-VIEW BREAST INC CAD Earnest Dueñas MD [address] [place] [address] [facility] [address] [place] [address] Referral ID Status Reason Start Date Expiration Date Visits Requested Visits Authorized [id number] Pending Review Auto-Generat ed Referral 08/20/2022 09/19/2023 1 1 [facility] for referral (narrative)* Diagnostic Procedure Only (Routine) - Pending Review Specialty Diagnoses / Procedures Referred By Saima t Referred To Contact [facility] Diagnoses Encounter for screening mammogram for breast cancer Procedures DAYNA SCREENING SCREENING MAMMOGRAPHY BI 2-VIEW BREAST INC CAD Earnest Dueñas MD [address] [place] [address] [facility] [address] [place] [address] Referral ID Status Reason Start Date Expiration Date Visits Requested Visits Authorized [id number] Pending Review Auto-Generat ed Referral 07/29/2023 08/27/2024 1 1 [facility] for referral (narrative)* Diagnostic Procedure Only (Routine) - Closed Specialty Diagnoses / Procedures Referred By Contac t Referred To Contact [facility] Diagnoses Left hip pain Procedures XR HIP GENERAL 3V PELV/AP/LAT LEFT RADEX HIP UNILATERAL WITH PELVIS 2-3 VIEWS Farzana Llamas PA-C [address] [place] [address] [place] [id number] Referral ID Status Reason Start Date Expiration Date V isits Requested Visits Authorized [id number] Closed Auto-Generate d Referral 03/16/2024 04/15/2025 1 1 * Diagnostic Procedure Only (Routine) - Authorized Specialty Diagnoses / Procedures Referred By Saima toscano Referred To Contact [facility] Diagnoses Encounter for screening for malignant neoplasm of breast, unspecified screening modality Procedures DAYNA SCREENING SCREENING MAMMOGRAPHY BI 2-VIEW BREAST INC CAD Farzana Llamas PA-C [address] [place] [address] [facility] [address] [place] [address] Referral ID Status Reason Start Date Expiration Date Visits Requested Visits Authorized [id number] Authorized Auto-Generat ed Referral 03/16/2024 04/15/2025 1 1 [facility] for referral (narrative)* Diagnostic Procedure Only (Routine) - Closed Specialty Diagnoses / Procedures Referred By Saima toscano Referred To Contact X[facility]AG[facility] Diagnoses Left hip pain Procedures XR HIP GENERAL 3V PELV/AP/LAT LEFT RADEX HIP UNILATERAL WITH PELVIS 2-3 VIEWS Farzana Llamas PA-C [address] [place] [address] Xr Imaging [id number] Referral ID Status Reason Start Date Expiration Date V isits Requested Visits Authorized [id number] Closed Auto-Generate d Referral 03/16/2024 04/15/2025 1 1 [facility] for visit Narrative* Diagnostic Procedure Only (Routine) - Closed Specialty Diagnoses / Procedures Referred By Saima toscano Referred To Contact [facility] Diagnoses Encounter for screening for malignant neoplasm of breast, unspecified screening modality Procedures DAYNA SCREENING SCREENING MAMMOGRAPHY BI 2-VIEW BREAST INC CAD Farzana Llamas PA-C [address] [place] [address] [facility] [address] [place] [address] Referral ID Status Reason Start Date Expiration Date V isits Requested Visits Authorized [id number] Closed Auto-Generate d Referral 03/16/2024 04/15/2025 1 1 [facility] for visit Narrative* Diagnostic Procedure Only (Routine) - Closed Specialty Diagnoses / Procedures Referred By Contac t Referred To Contact XR IMAGING Diagnoses Left hip pain Procedures XR HIP GENERAL 3V PELV/AP/LAT LEFT RADEX HIP UNILATERAL WITH PELVIS 2-3 VIEWS Farzana Llamas PA-C [address] [place] [address] [place] [address] Referral ID Status Reason Start Date Expiration Date V isits Requested Visits Authorized [id number] Closed Auto-Generate d Referral 03/16/2024 04/15/2025 1 1 [facility] Diagnostic Procedure Only (Routine) - Closed Specialty Diagnoses / Procedures Referred By Contdebbie t Referred To Contact [facility] Diagnoses Encounter for screening mammogram for breast cancer Procedures DAYNA SCREENING W SRIDEVI SCREENING DIGITAL BREAST TOMOSYNTHESIS BI SCREENING MAMMOGRAPHY BI 2-VIEW BREAST INC CAD Joan Talley APRN.PRODUCT FINISHER [address] [place] [address] Phone: tel: fax: [facility] [address] [place] [address] Referral ID Status Reason Start Date Expiration Date V isits Requested Visits Authorized [id number] Closed Auto-Generate d Referral 02/28/2025 03/30/2026 1 1 [facility] Summary Purpose Family History No Family History [...] No March 06, 2022 10:29am Power of Management Intern No March 06 10:29am Documents on File Type Date 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 Advance Directive(s) 11/04/2016 12:44 PM Advance Directive(s) 10/29/2016 11:14 AM Advance Directive Response Recorded Date/ Time Advance Directives No October 6:36pm Living Will No June 18, 2022 10:38am Power of Management Intern No June 18 10:38am Documents on File 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 Date 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 Advance Directive(s) 11/04/2016 12:44 PM Advance Directive(s) 10/29/2016 11:14 AM Advance Directive Response Recorded Date/ Time Advance Directives No October 6:36pm Living Will No August 24 12:16pm Power of Management Intern No August 24 12:16pm Advance Directive Response Recorded Date/ Time Advance Directives No October 6:36pm Living Will No September 06 12:37pm Power of Management Intern No September 06, 2022 12:37pm Chief Complaint [...] pain Procedures CONSULT TO GENERAL SURGERY OFFICE/OUTPATIENT NEW HIGH MDM 60-74 MINUTES Farzana Llamas PA-C [address] [place] [address] Referral ID Status Reason Start Date Expiration Date Visits Requested Visits Authorized [id number] Authorized PCP Requested Referral 06/25/2022 06/25/2023 1 1 Specialty Diagnoses / Procedures Referred By Contac t Referred To Contact Diagnoses Cystocele, midline Rectocele Procedures CONSULT TO URO GYNECOLOGY Lou Yu APRN.PRODUCT FINISHER [address] [place] [address] Referral ID Status Reason Start Date Expiration Date Visits Requested Visits Authorized [id number] Ref Not Required PCP Requested Referral 10/01/2022 10/01/2023 1 1 Specialty Diagnoses / Procedures Referred By Contac t Referred To Contact [facility] Diagnoses Left hip pain Procedures CONSULT TO PHYSICAL THERAPY PHYSICAL THERAPY EVALUATION HIGH COMPLEX 45 MINS Farzana Llamas PA-C [address] [place] [address] [facility] [address] [place] [address] Referral ID Status Reason Start Date Expiration Date Visits Requested Visits Authorized [id number] Pending Review Auto-Generat ed Referral 03/23/2024 03/23/2025 1 1 Health Concerns Infection Onset Date Last Indicated Resolved Time COVID-19 Rule-Out 03/23/2023 03/23/2023 03/24/2023 5:05 AM EDT Infection Onset Date Last Indicated Resolved Time COVID-19 Rule-Out 02/29/2024 02/29/2024 02/29/2024 6:42 PM EDT Additional Source Comments INFORMATION SOURCE (unrecogn ized section and content) DATE CREATED AUTHOR 01/11/2019 [facility] DATE CREATED AUTHOR AUTHOR'S ORGANIZ ATION 01/11/2019 [facility] DATE CREATED AUTHOR AUTHOR'S ORGANIZ ATION 02/07/2020 [facility] [place] DATE CREATED AUTHOR AUTHOR'S ORGANIZ ATION 10/09/2022 [facility] ([place]) DATE CREATED AUTHOR AUTHOR'S ORGANIZ ATION 08/01/2025 [facility] DATE CREATED AUTHOR AUTHOR'S ORGANIZ ATION 09/08/2025 [facility] Goals (unrecognized section and content) Goals may [...] or prosecute any alcohol or drug abuse patient.[facility] the event this information is protected by the Federal Confidentiality of Alcohol and Drug Abuse Patient Records regulations: The Federal rules restrict any use of the information to criminally investigate or prosecute any alcohol or drug abuse patient.[facility] HealthIn the event this information is protected by the Federal Confidentiality of Alcohol and Drug Abuse Patient Records regulations: The Federal rules restrict any use of the information to criminally investigate or prosecute any alcohol or drug abuse patient.[facility]In the event this information is protected by the Federal Confidentiality of Alcohol and Drug Abuse Patient Records regulations: The Federal rules restrict any use of the information to criminally investigate or prosecute any alcohol or drug abuse patient.[facility] HealthIn the event this information is protected by the Federal Confidentiality of Alcohol and Drug Abuse Patient Records regulations: The Federal rules restrict any use of the information to criminally investigate or prosecute any alcohol or drug abuse patient.[facility] HealthIn the event this information is protected by the Federal Confidentiality of Alcohol and Drug Abuse Patient Records regulations: The Federal rules restrict any use of the information to criminally investigate or prosecute any alcohol or drug abuse patient.[facility] HealthIn the event this information is protected by the Federal Confidentiality of Alcohol and Drug Abuse Patient Records regulations: The Federal rules restrict any use of the information to criminally investigate or prosecute any alcohol or drug abuse patient.[facility] HealthIn the event this information is protected by the Federal Confidentiality of Alcohol and Drug Abuse Patient Records regulations: The Federal rules restrict any use of the information to criminally investigate or prosecute any alcohol or drug abuse patient.[facility] HealthIn the event this information is protected by the Federal Confidentiality of Alcohol and Drug Abuse Patient Records regulations: The Federal rules restrict any use of the information to criminally investigate or prosecute any alcohol or drug abuse patient.[facility] HealthIn the event this information is protected by the Federal Confidentiality of Alcohol and Drug Abuse Patient Records regulations: The Federal rules restrict any use of the information to criminally investigate or prosecute any alcohol or drug abuse patient.[facility] HealthIn the event this information is protected by the Federal Confidentiality of Alcohol and Drug Abuse Patient Records regulations: The Federal rules restrict any use of the information to criminally investigate or prosecute any alcohol or drug abuse patient.[facility] HealthIn the event this information is protected by the Federal Confidentiality of Alcohol and Drug Abuse Patient Records regulations: The Federal rules restrict any use of the information to criminally investigate or prosecute any alcohol or drug abuse patient.[facility] HealthIn the event this information is protected by the Federal Confidentiality of Alcohol and Drug Abuse Patient Records regulations: The Federal rules restrict any use of the information to criminally investigate or prosecute any alcohol or drug abuse patient.[facility] HealthIn the event this information is protected by the Federal Confidentiality of Alcohol and Drug Abuse Patient Records regulations: The Federal rules restrict any use of the information to criminally investigate or prosecute any alcohol or drug abuse patient.[facility] HealthIn the event this information is protected by the Federal Confidentiality of Alcohol and Drug Abuse Patient Records regulations: The Federal rules restrict any use of the information to criminally investigate or prosecute any alcohol or drug abuse patient.[facility] HealthIn the event this information is protected by the Federal Confidentiality of Alcohol and Drug Abuse Patient Records regulations: The Federal rules restrict any use of the information to criminally investigate or prosecute any alcohol or drug abuse patient.[facility] HealthIn the event this information is protected by the Federal Confidentiality of Alcohol and Drug Abuse Patient Records regulations: The Federal rules restrict any use of the information to criminally investigate or prosecute any alcohol or drug abuse patient.[facility] HealthIn the event this information is protected by the Federal Confidentiality of Alcohol and Drug Abuse Patient Records regulations: The Federal rules restrict any use of the information to criminally investigate or prosecute any alcohol or drug abuse patient.[facility] HealthIn the event this information is protected by the Federal Confidentiality of Alcohol and Drug Abuse Patient Records regulations: The Federal rules restrict any use of the information to criminally investigate or prosecute any alcohol or drug abuse patient.[facility] HealthIn the event this information is protected by the Federal Confidentiality of Alcohol and Drug Abuse Patient Records regulations: The Federal rules restrict any use of the information to criminally investigate or prosecute any alcohol or drug abuse patient.[facility] HealthIn the event this information is protected by the Federal Confidentiality of Alcohol and Drug Abuse Patient Records regulations: The Federal rules restrict any use of the information to criminally investigate or prosecute any alcohol or drug abuse patient.[facility] HealthIn the event this information is protected by the Federal Confidentiality of Alcohol and Drug Abuse Patient Records regulations: The Federal rules restrict any use of the information to criminally investigate or prosecute any alcohol or drug abuse patient.[facility] HealthIn the event this information is protected by the Federal Confidentiality of Alcohol and Drug Abuse Patient Records regulations: The Federal rules restrict any use of the information to criminally investigate or prosecute any alcohol or drug abuse patient.[facility] HealthIn the event this information is protected by the Federal Confidentiality of Alcohol and Drug Abuse Patient Records regulations: The Federal rules restrict any use of the information to criminally investigate or prosecute any alcohol or drug abuse patient.[facility] HealthIn the event this information is protected by the Federal Confidentiality of Alcohol and Drug Abuse Patient Records regulations: The Federal rules restrict any use of the information to criminally investigate or prosecute any alcohol or drug abuse patient.[facility] HealthIn the event this information is protected by the Federal Confidentiality of Alcohol and Drug Abuse Patient Records regulations: The Federal rules restrict any use of the information to criminally investigate or prosecute any alcohol or drug abuse patient.[facility] HealthIn the event this information is protected by the Federal Confidentiality of Alcohol and Drug Abuse Patient Records regulations: The Federal rules restrict any use of the information to criminally investigate or prosecute any alcohol or drug abuse patient.[facility] HealthIn the event this information is protected by the Federal Confidentiality of Alcohol and Drug Abuse Patient Records regulations: The Federal rules restrict any use of the information to criminally investigate or prosecute any alcohol or drug abuse patient.[facility] HealthIn the event this information is protected by the Federal Confidentiality of Alcohol and Drug Abuse Patient Records regulations: The Federal rules restrict any use of the information to criminally investigate or prosecute any alcohol or drug abuse patient.[facility] HealthIn the event this information is protected by the Federal Confidentiality of Alcohol and Drug Abuse Patient Records regulations: The Federal rules restrict any use of the information to criminally investigate or prosecute any alcohol or drug abuse patient.[facility] HealthIn the event this information is protected by the Federal Confidentiality of Alcohol and Drug Abuse Patient Records regulations: The Federal rules restrict any use of the information to criminally investigate or prosecute any alcohol or drug abuse patient.[facility] HealthIn the event this information is protected by the Federal Confidentiality of Alcohol and Drug Abuse Patient Records regulations: The Federal rules restrict any use of the information to criminally investigate or prosecute any alcohol or drug abuse patient.[facility] HealthIn the event this information is protected by the Federal Confidentiality of Alcohol and Drug Abuse Patient Records regulations: The Federal rules restrict any use of the information to criminally investigate or prosecute any alcohol or drug abuse patient.[facility] HealthIn the event this information is protected by the Federal Confidentiality of Alcohol and Drug Abuse Patient Records regulations: The Federal rules restrict any use of the information to criminally investigate or prosecute any alcohol or drug abuse patient.[facility] HealthIn the event this information is protected by the Federal Confidentiality of Alcohol and Drug Abuse Patient Records regulations: The Federal rules restrict any use of the information to criminally investigate or prosecute any alcohol or drug abuse patient.[facility] HealthIn the event this information is protected by the Federal Confidentiality of Alcohol and Drug Abuse Patient Records regulations: The Federal rules restrict any use of the information to criminally investigate or prosecute any alcohol or drug abuse patient.[facility]In the event this information is protected by the Federal Confidentiality of Alcohol and Drug Abuse Patient Records regulations: The Federal rules restrict any use of the information to criminally investigate or prosecute any alcohol or drug abuse patient.[facility] HealthIn the event this information is protected by the Federal Confidentiality of Alcohol and Drug Abuse Patient Records regulations: The Federal rules restrict any use of the information to criminally investigate or prosecute any alcohol or drug abuse patient.[facility] HealthIn the event this information is protected by the Federal Confidentiality of Alcohol and Drug Abuse Patient Records regulations: The Federal rules restrict any use of the information to criminally investigate or prosecute any alcohol or drug abuse patient.[facility] HealthIn the event this information is protected by the Federal Confidentiality of Alcohol and Drug Abuse Patient Records regulations: The Federal rules restrict any use of the information to criminally investigate or prosecute any alcohol or drug abuse patient.[facility] HealthIn the event this information is protected by the Federal Confidentiality of Alcohol and Drug Abuse Patient Records regulations: The Federal rules restrict any use of the information to criminally investigate or prosecute any alcohol or drug abuse patient.[facility] HealthIn the event this information is protected by the Federal Confidentiality of Alcohol and Drug Abuse Patient Records regulations: The Federal rules restrict any use of the information to criminally investigate or prosecute any alcohol or drug abuse patient.[facility]In the event this information is protected by the Federal Confidentiality of Alcohol and Drug Abuse Patient Records regulations: The Federal rules restrict any use of the information to criminally investigate or prosecute any alcohol or drug abuse patient.[facility] HealthIn the event this information is protected by the Federal Confidentiality of Alcohol and Drug Abuse Patient Records regulations: The Federal rules restrict any use of the information to criminally investigate or prosecute any alcohol or drug abuse patient.[facility] HealthIn the event this information is protected by the Federal Confidentiality of Alcohol and Drug Abuse Patient Records regulations: The Federal rules restrict any use of the information to criminally investigate or prosecute any alcohol or drug abuse patient.[facility] HealthIn the event this information is protected by the Federal Confidentiality of Alcohol and Drug Abuse Patient Records regulations: The Federal rules restrict any use of the information to criminally investigate or prosecute any alcohol or drug abuse patient.[facility] HealthIn the event this information is protected by the Federal Confidentiality of Alcohol and Drug Abuse Patient Records regulations: The Federal rules restrict any use of the information to criminally investigate or prosecute any alcohol or drug abuse patient.[facility] HealthIn the event this information is protected by the Federal Confidentiality of Alcohol and Drug Abuse Patient Records regulations: The Federal rules restrict any use of the information to criminally investigate or prosecute any alcohol or drug abuse patient.[facility] HealthIn the event this information is protected by the Federal Confidentiality of Alcohol and Drug Abuse Patient Records regulations: The Federal rules restrict any use of the information to criminally investigate or prosecute any alcohol or drug abuse patient.[facility] HealthIn the event this information is protected by the Federal Confidentiality of Alcohol and Drug Abuse Patient Records regulations: The Federal rules restrict any use of the information to criminally investigate or prosecute any alcohol or drug abuse patient.[facility] Reason for Visit (unrecogniz ed section and [...] chills started this morning Reason Comments Outside [id number] Ordered Reason Comments ext document Uro Procedure [...] Reason Comments Physical Reason Comments ER F/U [facility] Reason Comments Hospital F/U H - Discharge Reason Comments Received Outside Medical Records [facility] adm ission Reason Comments Back Pain Shooting down leg, R leg x 4 days Care Teams (unrecognized sec tion and content) Bus Mechanic Relationship Specialty Start Date End Date Earnest Dueñas MD [address] [place] [address] PCP - General Family Practice 01/17/16 Bus Mechanic Relationship Specialty Start Date End Date Earnest Dueñas MD [address] [place] [address] [place] [address] PCP - General Family Practice 01/17/16 Bus Mechanic Relationship Specialty Start Date End Date Earnest Dueñas MD [address] [place] [address] [place] [address] PCP - General Family Practice 01/17/16 Bus Mechanic Relationship Specialty Start Date End Date Earnest Dueñas MD [address] [place] [address] [place] [address] PCP - General Family Practice 01/17/16 Bus Mechanic Relationship Specialty Start Date End Date Earnest Dueñas MD [address] [place] [address] [place] [address] PCP - General Family Practice 01/17/16 Bus Mechanic Relationship Specialty Start Date End Date Earnest Dueñas MD [address] [place] [address] [place] [address] PCP - General Family Medicine 01/17/16 Bus Mechanic Relationship Specialty Start Date End Date Earnest Dueñas MD [address] [place] [address] [place] [address] PCP - General Family Medicine 01/17/16 Bus Mechanic Relationship Specialty Start Date End Date Earnest Dueñas MD [address] [place] [address] [place] [address] PCP - General Family Medicine 01/17/16 Bus Mechanic Relationship Specialty Start Date End Date Earnest Dueñas MD [address] [place] [address] PCP - General Family Medicine 01/17/16 Bus Mechanic Relationship Specialty Start Date End Date Earnest Dueñas MD [address] [place] [address] PCP - General Family Medicine 01/17/16 Bus Mechanic Relationship Specialty Start Date End Date Earnest Dueñas MD [address] [place] [address] PCP - General Family Medicine 01/17/16 Bus Mechanic Relationship Specialty Start Date End Date Earnest Dueñas MD [address] [place] [address] PCP - General Family Medicine 01/17/16 Bus Mechanic Relationship Specialty Start Date End Date Earnest Dueñas MD [address] [place] [address] PCP - General Family Medicine 01/17/16 Bus Mechanic Relationship Specialty Start Date End Date Earnest Dueñas MD [address] [place] [address] PCP - General Family Medicine 01/17/16 Bus Mechanic Relationship Specialty Start Date End Date Earnest Dueñas MD [address] [place] [address] PCP - General Family Medicine 01/17/16 Bus Mechanic Relationship Specialty Start Date End Date Earnest Dueñas MD [address] [place] [address] PCP - General Family Medicine 01/17/16 Bus Mechanic Relationship Specialty Start Date End Date Earnest Dueñas MD [address] [place] [address] PCP - General Family Medicine 01/17/16 Bus Mechanic Relationship Specialty Start Date End Date Earnest Dueñas MD [address] [place] [address] PCP - General Family Medicine 01/17/16 Bus Mechanic Relationship Specialty Start Date End Date Earnest Dueñas MD [address] [place] [address] PCP - General Family Medicine 01/17/16 Bus Mechanic Relationship Specialty Start Date End Date Earnest Dueñas MD [address] [place] [address] PCP - General Family Medicine 01/17/16 Bus Mechanic Relationship Specialty Start Date End Date Earnest Dueñas MD [address] [place] [address] PCP - General Family Medicine 01/17/16 Bus Mechanic Relationship Specialty Start Date End Date Earnest Dueñas MD [address] [place] [address] PCP - General Family Medicine 01/17/16 Bus Mechanic Relationship Specialty Start Date End Date Earnest Dueñas MD [address] [place] [address] PCP - General Family Medicine 01/17/16 Bus Mechanic Relationship Specialty Start Date End Date Earnest Dueñas MD [address] [place] [address] PCP - General Family Medicine 01/17/16 Bus Mechanic Relationship Specialty Start Date End Date Earnest Dueñas MD [address] [place] [address] PCP - General Family Medicine 01/17/16 Bus Mechanic Relationship Specialty Start Date End Date Earnest Dueñas MD [address] [place] [address] PCP - General Family Medicine 01/17/16 Bus Mechanic Relationship Specialty Start Date End Date Earnest Dueñas MD [address] [place] [address] PCP - General Family Medicine 01/17/16 Bus Mechanic Relationship Specialty Start Date End Date Earnest Dueñas MD [address] [place] [id number] PCP - General Family Medicine 01/17/16 Bus Mechanic Relationship Specialty Start Date End Date Earnest Dueñas MD [address] [place] [address] PCP - General Family Medicine 01/17/16 Bus Mechanic Relationship Specialty Start Date End Date Earnest Dueñas MD [address] [place] [address] PCP - General Family Medicine 01/17/16 Joan Talley APRN.PRODUCT FINISHER [address] [place] [address] Interior Horticulturist Family Medicine 10/29/24 Farzana Llamas PA-C [address] [place] [address] Interior Horticulturist Family Medicine 10/29/24 Bus Mechanic Relationship Specialty Start Date End Date Earnest Dueñas MD [address] [place] [address] PCP - General Family Medicine 01/17/16 Joan Talley, LAUREN.PRODUCT FINISHER [address] [place] [address] Interior Horticulturist Family Medicine 10/29/24 Farzana Llamas PA-C [address] [place] [address] [facility] Bus Mechanic Relationship Specialty Start Date End Date Earnest Dueñas MD [address] [place] [address] PCP - General Family Medicine 01/17/16 Joan Talley, COMPANY LABORER.PRODUCT FINISHER [address] [place] [address] Interior Horticulturist Family Medicine 10/29/24 Farzana Llamas PA-C [address] [place] [address] Interior Horticulturist Family Medicine 10/29/24 Bus Mechanic Relationship Specialty Start Date End Date Earnest Dueñas MD [address] [place] [address] PCP - General Family Medicine 01/17/16 Joan Talley, COMPANY LABORER.PRODUCT FINISHER [address] [place] [address] Interior Horticulturist Family Medicine 10/29/24 Farzana Llamas PA-C [address] [place] [address] Interior Horticulturist Family [facility] 10/29/24 Bus Mechanic Relationship Specialty Start Date End Date Earnest Dueñas MD [address] [place] [address] PCP - General Family Medicine 02/27/25 Joan Talley APRN.PRODUCT FINISHER [facility] [place] [address] Interior Horticulturist Family Medicine 10/29/24 Farzana Llamas PA-C [address] [place] [address] [facility] 10/29/24 Bus Mechanic Relationship Specialty Start Date End Date Earnest Dueñas MD [address] [place] [address] PCP - General Family Medicine 02/27/25 Joan Talley APRN.PRODUCT FINISHER [address] [place] [address] Interior Horticulturist Family Medicine 10/29/24 Farzana Llamas PA-C [address] [place] [address] Interior Horticulturist Family Medicine 10/29/24 Bus Mechanic Relationship Specialty Start Date End Date Earnest Dueñas MD [address] [place] [address] PCP - General Family Medicine 02/27/25 Joan Talley APRN.PRODUCT FINISHER [address] [place] [address] Interior Horticulturist Family Medicine 10/29/24 Farzana Llamas PA-C [address] [place] [address] Interior Horticulturist Family [facility] 10/29/24 Bus Mechanic Relationship Specialty Start Date End Date Earnest Dueñas MD [address] [place] [address] PCP - General Family Medicine 02/27/25 Joan Talley APRN.PRODUCT FINISHER [facility] [place] [address] Interior Horticulturist Family Medicine 10/29/24 Farzana Llamas PA-C [address] [place] [address] Interior Horticulturist Family [facility] 10/29/24 Bus Mechanic Relationship Specialty Start Date End Date Earnest Dueñas MD [address] [place] [address] PCP - General Family Medicine 02/27/25 Joan Talley APRN.PRODUCT FINISHER [facility] [place] [address] Interior Horticulturist Family Medicine 10/29/24 Farzana Llamas PA-C [address] [place] [address] Interior Horticulturist Family Medicine 10/29/24 Bus Mechanic Relationship Specialty Start Date End Date Earnest Dueñas MD [address] [place] [address] PCP - General Family Medicine 02/27/25 Joan Talley, LAUREN.PRODUCT FINISHER [address] [place] [address] [facility] 04/24/25 Farzana Llamas PA-C [address] [place] [address] [facility] 04/24/25 Bus Mechanic Relationship Specialty Start Date End Date Earnest Dueñas MD [address] [place] [address] PCP - General Family Medicine 02/27/25 Joan Talley, LAUREN.PRODUCT FINISHER [address] [place] [address] [facility] 04/24/25 Farzana Llamas PA-C [address] [place] [address] [facility] 04/24/25 Care Team (unrecognized sect ion and content) Care Team Personnel Name: EARNEST DUEÑAS MD Member Role: Primary Care Physician Address: Address: [address] [place] [id number]- Name: ARJUN SLAUGHTER MD Position: ED Physician Member Role: Attending Physician Address: Address: [facility] [address] [place] [id number] Name: Diamond Botello RN Position: AO RN [...] BE BASED ON THE PRIMARY CLINICAL RECORDS. [facility]. provides no warranty or guarantee of the accuracy or completeness of information in this document.
--- NOTE | 2025-11-15 16:47 | CT_ITS ---
PROCEDURE: BRAIN/HEAD WITHOUT CONTRAST 11/15/2025 REASON FOR EXAM: FACIAL PARESTHESIAS TECHNIQUE: Procedure Code: CTBR Modality: CT Procedure: BRAIN/HEAD WITHOUT CONTRAST Coronal and Sagittal reconstruction series were provided. One or more dose reduction techniques were used (e.g., Automated exposure control, adjustment of the mA and/or kV according to patient size, use of iterative reconstruction technique. RADIATION DOSE SUMMARY: DLP: 365 mGycm COMPARISON: none FINDINGS: There is no acute infarct, intracranial hemorrhage, or mass effect. There is no hydrocephalus or significant midline shift. No acute, depressed calvarial fractures. No large scalp hematomas. The paranasal sinuses are clear. CT/Brain/Head without Contrast IMPRESSION: No acute intracranial process. Consider MR if symptoms persist. Reading Location: [facility]
--- NOTE | 2025-11-15 16:52 | RAD_ITS ---
PROCEDURE: CHEST 1 VIEW (PORTABLE) 11/15/2025 REASON FOR EXAM: PARESTHESIAS TECHNIQUE: Frontal view of the chest. COMPARISON: 11/20/2023 FINDINGS: Lungs/Pleura: Clear. Heart/Mediastinum: Within normal limits. Bones/Soft tissues: Mild degenerative changes of the spine. RAD/Chest 1 View (Portable) IMPRESSION: No acute cardiopulmonary disease. Reading Location: [id number]
[2025-11-15 16:56] LABS: Hematocrit 43.8 % (37-47); Hemoglobin 15.2 g/dL (12.0-15.0); Immature Granulocytes Count 0.020 X10^3/uL (0.0-0.0); Mean Corp Hgb Conc 34.7 g/dL (32-36); Mean Corpuscular Volume 93.6 fL (81-99); Mean Platelet Vol. 9.5 fl (6.2-12.0); NRBC Flagged by Analyzer 0 % (0-5); Platelet Count 289 K/mm3 (150-450); RBC Distribution Width CV 13.8 % (11.6-14.6); RBC Distribution Width SD 46.7 fl (35.1-43.9); Red Blood Count 4.68 M/mm3 (4.2-5.4); White Blood Count 6.5 K/mm3 (4.4-11.0)
[2025-11-15 17:08] LABS: Anion Gap 12 (7-18); BUN 5 mg/dL (4-19); BUN/Creat Ratio 9.6 RATIO (10-20); Calcium,Total 8.9 mg/dL (7.6-11.0); Carbon Dioxide 26.1 mmol/L (20.0-29.0); Chloride 101 mmol/L (96-106); Estimated Creatinine Clearance 127.47 ml/min (50-250); Glucose 106 mg/dL (70-99); Potassium 3.5 mmol/L (3.5-5.1)
[2025-11-15 17:11] VITALS: BP 129/82; PULSE 67; RESP 16; O2SAT 94
[2025-11-15 17:23] VITALS: BP 129/82; PULSE 67; RESP 16; TEMP 36.8; O2SAT 94
== END 2025-11-15 17:41 | disposition home or self-care (01) ==
PROVIDERS: Emergency Provider Emergency Medicine; PCP Family Medicine; Visit Provider Emergency Medicine
DX: R20.2 Paresthesia of skin (principal); I10 Essential (primary) hypertension; F41.9 Anxiety disorder, unspecified; F17.200 Nicotine dependence, unspecified, uncomplicated; F43.10 Post-traumatic stress disorder, unspecified; Z90.710 Acquired absence of both cervix and uterus; Z98.51 Tubal ligation status; F32.A Depression, unspecified
CPT/HCPCS: 70450; 71045; 80048; 85025; 93005; 99283; A4216